=== PATIENT | female | born 1945 | race Caucasian/White ===

== ENCOUNTER → 2016-05-01 | Outpatient (REF) | payer MEDICARE ==
[~2016-05-01] MED LIST: /GLYB5TA OR; /MOM400 PO; /WARF25TA OR; ACET65TA OR; ALEVE PO; AMIO20TA PO; AMIO400T PO; ATEN50TA2 OR; ATOR40TA PO; AVAP300T OR; Aleve PO; CEFT500T PO; ELIQ5TAB PO; GLYB5TA PO; HYDR25TA6 OR; INSULANT SC; INSULIN 70/30 SC; INSUR SC; KEFL500C OR; LASI40TA PO; LEVA500T PO; LEVO125T3 PO; LEVO175T2 PO; LOPR50TA PO; LORTTAB2 PO; LORTTAB5 PO; PERC5TAB8 OR; PRIL20CA OR; PRIL40CA PO; SENO8.6T9 PO; SPIR50TA2 PO; SYNT150T OR; TOPA25TA10 PO; TOPA50TA7 PO; TYLE325T5 PO; VICO5TAB OR; VITMTA PO; ZOCO20TA PO; [UNRECOGNIZED DRUG - OTHER] PO; vitamin e PO
[2016-05-01 18:24] LABS: BASO % 0.9 % (0.0-1.0); EOS # 0.3 K/mm3 (0.0-0.50); EOS % 4.2 % (0.0-3.0); LARGE UNSTAINED CELL # 0.2 K/mm3 (0.0-0.4); LYMPH # 1.9 K/mm3 (1.5-4.5); LYMPH % 30.6 % (24.0-44.0); MEAN CORPUSCULAR HEMOGLOBIN 27.3 pg (27.0-33.0); MEAN CORPUSCULAR HGB CONC 32.8 g/dl (32.0-36.5); MEAN CORPUSCULAR VOLUME 83.2 fl (80.0-96.0); MONO # 0.5 K/mm3 (0.0-0.8); MONO % 7.6 % (0.0-5.0); NEUTROPHILS # 3.3 K/mm3 (1.8-7.7); NEUTROPHILS % 53.8 % (36.0-66.0); PLATELET COUNT, AUTOMATED 224 k/mm3 (150-450); RED CELL DISTRIBUTION WIDTH 14.5 % (11.5-14.5); WHITE BLOOD COUNT 6.2 K/mm3 (4.0-10.0)
== END ==
LOC: M LAB REF 17:08
PROVIDERS: ATTEND Internal Medicine Pulmonary Disease
DX: R91.8 Other nonspecific abnormal finding of lung field (principal)

== ENCOUNTER → 2016-05-04 | Outpatient (REF) | payer MEDICARE | LOC: M LAB REF 13:10 | PROVIDERS: ATTEND Internal Medicine Pulmonary Disease | DX: R91.8 Other nonspecific abnormal finding of lung field (principal) ==

== ENCOUNTER 2016-05-15 09:55 | Emergency (ER) | payer MEDICARE ==
[~2016-05-15 09:55] MED LIST changes: -CEFT500T PO; +CEFT500T3 PO; +LOPR1TAB6 PO; -LOPR50TA PO
[2016-05-15 11:08] LABS: BASO % 0.1 % (0.0-1.0); EOS % 0.4 % (0.0-3.0); LARGE UNSTAINED CELL # 0.2 K/mm3 (0.0-0.4); LARGE UNSTAINED CELL % 1.1 % (0.0-4.0); LYMPH # 1.2 K/mm3 (1.5-4.5); LYMPH % 8.5 % (24.0-44.0); MEAN CORPUSCULAR HEMOGLOBIN 27.2 pg (27.0-33.0); MEAN CORPUSCULAR HGB CONC 33.1 g/dl (32.0-36.5); MEAN CORPUSCULAR VOLUME 82.1 fl (80.0-96.0); MONO # 0.5 K/mm3 (0.0-0.8); MONO % 3.9 % (0.0-5.0); NEUTROPHILS # 12.1 K/mm3 (1.8-7.7); NEUTROPHILS % 86.1 % (36.0-66.0); PLATELET COUNT, AUTOMATED 235 k/mm3 (150-450); RED CELL DISTRIBUTION WIDTH 14.1 % (11.5-14.5)
--- NOTE | 2016-05-15 11:26 | REP ---
CT Head without contrast HISTORY: Fall COMPARISON: 03/25/2013 There is no intraparenchymal hemorrhage, acute infarct, mass or midline shift. The ventricular system is normal in appearance. There is no extra cerebral collection. There is no fracture. Minimal mucosal thickening is present in the right maxillary sinus. IMPRESSION: There is no intracranial lesion. Signed by Sulaiman Sanches MD 05/15/2016 11:17 A
[2016-05-15] MEDS ORDERED: PERCOCET 5MG/325MG TAB As Ordered ONE (11:29)
[2016-05-15 11:31] LABS: CALCIUM LEVEL 8.7 MG/DL (8.8-10.2); CREATININE FOR GFR 1.72 MG/DL (0.55-1.02); GLOMERULAR FILTRATION RATE 31.4 (>45); POTASSIUM SERUM 4.9 MEQ/L (3.5-5.1)
--- NOTE | 2016-05-15 11:36 | REP ---
CT CERVICAL SPINE WITHOUT CONTRAST: HISTORY: Trauma. COMPARISON: 03/25/2013. There is no acute fracture or subluxation. Disc bulges are present at the C4-5 through C6-7 levels. There is minimal narrowing of the spinal canal. Facet hypertrophy is present at the C4-5 through C6-7 levels. This produces minimal narrowing of the neural foramina. The C5-6 and C6-7 intervertebral discs are decreased in height consistent with disc degeneration. Anterior osteophytes are present on C3-5. IMPRESSION: 1. There is no acute fracture or subluxation. 2. There is cervical spondylosis at the C3-4 through C6-7 levels. Signed by Sulaiman Sanches MD 05/15/2016 11:41 A
[2016-05-15 11:40] LABS: INR 1.14
--- NOTE | 2016-05-15 13:28 | REP ---
LEFT KNEE, FIVE VIEWS: HISTORY: Pain. There is no acute fracture or dislocation. There is narrowing of the joint spaces. Osteophytes are present on the femur, tibia and patella. The bony structure is osteopenic. IMPRESSION: Degenerative change as described above. Signed by Sulaiman Sanches MD 05/15/2016 01:30 P
--- NOTE | 2016-05-15 13:29 | REP ---
Chest x-ray: Single view. History: Injury in a fall. Findings: There is an Ruzyfc-O-Dupv catheter via the left internal jugular line with its tip in the expected location of the superior vena cava. There is no evidence of pneumothorax or hydrothorax. There are clips in right upper quadrant of the abdomen. The lungs are symmetrically aerated and free of infiltrate. Pleural angles are sharp. Mediastinum is not widened. Heart size is mildly enlarged but unchanged. There are degenerative changes in the left shoulder. Impression: Rzlwol-T-Cniy catheter in place. Mild cardiomegaly. Otherwise no acute disease. Signed by Carroll Huizar MD 05/15/2016 01:44 P
--- NOTE | 2016-05-15 13:30 | REP ---
Left TIB-fib series: Three views. History: Pain. Findings: There is pretibial soft tissue swelling particularly at the proximal calf level. Vascular calcifications noted. There is some diffuse osteopenia. No fracture or periosteal reaction is seen. Impression: Vascular calcification. Soft tissue swelling. No acute bony abnormality. Signed by Carroll Huizar MD 05/15/2016 01:44 P
--- NOTE | 2016-05-15 13:31 | REP ---
LEFT FEMUR, FOUR VIEWS: HISTORY: Fall. There is no acute fracture or dislocation. There is narrowing of the left hip and knee joint spaces. Osteophytes are present at the left knee joint. IMPRESSION: Degenerative change as described above. Signed by Sulaiman Sanches MD 05/15/2016 01:33 P
--- NOTE | 2016-05-15 13:32 | REP ---
PELVIS, TWO VIEWS: HISTORY: Fall. There is no acute fracture or dislocation. There is narrowing of the joint spaces. IMPRESSION: Degenerative change as described above. Signed by Sulaiman Sanches MD 05/15/2016 01:33 P
--- NOTE | 2016-05-15 14:50 | EDDOCDS ---
Nurse's Notes [facility] Name: Judy Vega Age: 70 yrs Sex: Female : 1945 Arrival Date: 05/15/2016 Time: 09:55 Bed I8 / 16 Private MD: Ronald Freeman D Diagnosis: Fall (on) (from) unspecified stairs and steps;Contusion of left lower leg;Contusion of left knee;Other chest pain-chest wall pain Presentation: 05/15 10:10 Presenting complaint: Patient states: states that fell backwards twisting her left ml6 ankle, c/o pain in ankle, lower back, and neck, unsure if struck her head. Adult Sepsis Screening: The patient does not have new or worsening altered mentation. Patient's respiratory rate is less than 22. Systolic blood pressure is greater than 100. Patient has a qSOFA score of 0- Negative Sepsis Screen. Suicide/Homicide risk assessment- the patient denies having any suicidal and/or homicidal ideations and does not present with any other emotional, behavioral or mental health complaints. Status: Patient is not a financial services director or dependent. Transition of care: patient was not received from another setting of care. Red Flag criteria, patient assessed and taken directly to a bed. 10:10 Acuity: EN Level 2 ml6 10:10 Method Of Arrival: Walkin/Carried/Asstd ml6 Triage Assessment: 10:17 General: Appears in no apparent distress, Behavior is appropriate for age, cooperative. ml6 Pain: Location: left lateral malleolus and left medial malleolus Pain currently is 8 out of 10 on a pain scale. Pain does not radiate. Quality of pain is described as aching, Pain began 1 hour ago Is continuous. Cardiovascular: Capillary refill < 3 seconds is brisk in bilateral fingers toes. Respiratory: No deficits noted. Airway is patent Respiratory effort is even, unlabored, Respiratory pattern is regular, symmetrical. Musculoskeletal: Circulation, motion, and sensation intact Capillary refill < 3 seconds is brisk in bilateral fingers toes Range of motion intact in all extremities. No deformity noted Swelling present in left foot. Historical: - Allergies: Januvia (Rash); Lisinopril; - Home Meds: 1. amiodarone 200 mg Oral tab 1 tab 2 times per day (Last dose: 05/15/2016 07:00) 2. Eliquis 5 mg oral tab 1 tab 2 times per day (Last dose: 05/15/2016 07:00) 3. Prilosec 40 mg Oral cpDR 1 cap once daily (Last dose: 05/15/2016 07:00) 4. spironolactone 50 mg oral tab 1 tab once daily (Last dose: 05/15/2016 07:00) 5. multivitamin Oral cap 1 tablet daily (Last dose: 05/15/2016 07:00) 6. atorvastatin 40 mg oral tab 1 tab once daily (Last dose: 05/15/2016 07:00) 7. Lantus 100 unit/mL Sub-Q crtg 52 unit daily (Last dose: 05/15/2016 07:00) 8. Novolin R Sub-Q as needed sliding scale 6 units this am 9. glyburide 5 mg Oral tab 2 tabs 2 times per day (Last dose: 05/15/2016 07:00) 10. levothyroxine 125 mcg Oral tab 1 tab once daily (Last dose: 05/15/2016 07:00) 11. Prilosec 40 mg Oral cpDR 1 cap once daily (Last dose: 05/15/2016 07:00) 12. prednisone 20 mg Oral tab once daily (Last dose: 05/15/2016 07:00) - PMHx: Diabetes - IDDM: controlled; Hypertension; Sleep Apnea w/ CPAP; GERD; Non-Hodgkin's Lymphoma; Hypothyroidism; Hypercholesterolemia; atrial flutter; CHF; - PSHx: Knee surgery- Right; Arthroscopy, Knee- Left; Shoulder Arthroplasty, Left; Hernia repair; Cataract Surgery- Bilateral; lymphnode removal; cardiac ablation x 3 (April 04, 2016); cardioversion(January 14, 2016); - Social history: Smoking status: Patient states was never smoker of tobacco. No barriers to communication noted, Speaks appropriately for age. - Family history: Not pertinent. - : The pt / caregiver states he / she is not on anticoagulants. Home medication list is obtained from the patient. - Exposure Risk Screening:: None identified. Screenin:00 Screening information is obtained from the patient. Fall risk: No risks identified. jmk Assistance ADL's: requires no assistance with activities of daily living. Abuse/DV Screen: The patient / caregiver reports he/she is: not in a situation that causes fear, pain or injury. Nutritional screening: No deficits noted. home support is adequate. 11:47 Advance Directives: Currently, there is no health care proxy. There is no active DNR k order. There is no living will. There is no Power of Banquet Food Server. Advance directive information has not previously been placed in an [facility] medical record. Further advance directive information is declined information regarding advance directives can be obtained from . Assessment: 11:00 General: Appears uncomfortable, skin warm and dry color satisfactory. Moist pink oral jmk mucosa. good recall of events. REGINALDO brisk body survey reveals old 2" area of ecchymosis to right antecubital area. Painful left knee. slight swelling noted. Pedal pulse intact . 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 skin integrity intact.. Neurological: Level of Consciousness is awake, alert, Oriented to person, place, time, Label Coder are equal bilaterally. Cardiovascular: Capillary refill < 3 seconds Clubbing of nail beds is absent Heart tones S1 S2 present. Respiratory: No deficits noted. Airway is patent Respiratory effort is even, unlabored, Respiratory pattern is regular, Breath sounds are clear bilaterally. GI: Abdomen is obese, Bowel sounds present X 4 quads. 11:50 General: Appears medicated as per order for lower extremity pain that increases with jmk movement.. 12:59 General: Appears returned from x ray. reports pain has decreased to 5/10.. jmk 14:31 General: Appears states pain level is still 5/10 and has support from knee immobilizer. sergio Is able to support own weight. Has walker for use at home.. Vital Signs: 09:57 BP 198 / 93; Pulse 88; Resp 20; Temp 97.3; Pulse Ox 99% ; Weight 95.25 kg; Height 4 ft. f 9 in. (144.78 cm); Pain 10/10; 11:47 BP 192 / 74 (auto/); jmk 11:47 Pulse 82 MON; jmk 11:47 BP 156 / 72; Pulse 74; Resp 16; Temp 97.3; jmk 12:02 BP 176 / 77 (auto/); jmk 12:02 Pulse 74 MON; jmk 09:57 Body Mass Index 45.44 (95.25 kg, 144.78 cm) [facility] Vitals: 09:57 Log In Time: May 15, 2016 at 09:40. jlf 10:11 RN notified that patient meets Red Flag criteria. [facility] ED Course: 09:56 Patient visited by Luis Garland PCA. jlf 09:56 Ronald Freeman is Private Physician. jlf 09:56 Patient moved to Waiting jlf 09:58 Patient visited by Luis Garland PCA. jlf 10:06 Patient moved to Pre RCE jrd 10:10 Patient moved to I8 / 16 ml6 10:11 Triage Initiated ml6 10:25 Patient visited by Luis Garland PCA. jlf 10:25 EKG done. (by ED staff). Reviewed by Rylee Wilson MD. jlf 10:56 Patient visited by Luis Garland PCA. jlf 11:00 The patient / caregiver is instructed regarding the plan of care and ED course. jmk 11:00 Inserted saline lock: 20 gauge in left antecubital area. jmk 11:02 Rylee Wilson MD is Attending Physician. ml 11:02 Patient visited by Rylee Wilson MD. ml 11:04 Patient visited by Jose Saldana,JERMAINE. jmk 11:06 PTT Sent. jmk 11:06 PT/INR Sent. jmk 11:06 MED Profile Sent. jmk 11:06 CBC with Diff Sent. jmk 11:40 Patient visited by Luis Garland PCA. jlf 11:47 Discontinued lock intact, bleeding controlled, pressure dressing applied, No jmk redness/swelling at site. No procedures done that require assistance. 11:51 Patient visited by Jose Saldana,JERMAINE. jmk 11:51 CT Head Without Contrast Returned. EDMS 11:52 CT Spine,Cervical W/o Contrast Returned. EDMS 11:53 [facility] [place] was scanned into [employer] and attached to record. lg 12:59 Patient visited by Jose Saldana,JERMAINE. jmk 13:31 Patient visited by Shi Espinoza PCA. ct3 13:32 Knee, Complete Returned. EDMS 13:32 Chest, 1 View Returned. EDMS 13:33 Tibia/Fibula Returned. EDMS 13:33 Femur Returned. EDMS 14:08 Pelvis Returned. EDMS 14:12 Ronald Freeman is Referral Physician. ml 14:16 [facility] is Referral Physician. ml Administered Medications: 11:50 Drug: oxyCODONE-acetaminophen 1 tabs [oxycodone-acetaminophen 5 mg-325 mg tablet (1 jmk tabs)] Route: PO; Order Results: Lab Order: CBC with Diff; SPEC'M 05/15/16 11:01 Test: WHITE BLOOD COUNT; Value: 14.0; Range: 4.0-10.0; Abnormal: Above high normal; Units: K/mm3; Status: F Test: RED BLOOD COUNT; Value: 5.23; Range: 4.00-5.40; Units: M/mm3; Status: F Test: HEMOGLOBIN; Value: 14.2; Range: 12.0-16.0; Units: g/dl; Status: F Test: HEMATOCRIT; Value: 42.9; Range: 36.0-47.0; Units: %; Status: F Test: MEAN CORPUSCULAR VOLUME; Value: 82.1; Range: 80.0-96.0; Units: fl; Status: F Test: MEAN CORPUSCULAR HEMOGLOBIN; Value: 27.2; Range: 27.0-33.0; Units: pg; Status: F Test: MEAN CORPUSCULAR HGB CONC; Value: 33.1; Range: 32.0-36.5; Units: g/dl; Status: F Test: RED CELL DISTRIBUTION WIDTH; Value: 14.1; Range: 11.5-14.5; Units: %; Status: F Test: PLATELET COUNT, AUTOMATED; Value: 235; Range: 150-450; Units: k/mm3; Status: F Test: NEUTROPHILS %; Value: 86.1; Range: 36.0-66.0; Abnormal: Above high normal; Units: %; Status: F Test: LYMPH %; Value: 8.5; Range: 24.0-44.0; Abnormal: Below low normal; Units: %; Status: F Test: MONO %; Value: 3.9; Range: 0.0-5.0; Units: %; Status: F Test: EOS %; Value: 0.4; Range: 0.0-3.0; Units: %; Status: F Test: BASO %; Value: 0.1; Range: 0.0-1.0; Units: %; Status: F Test: LARGE UNSTAINED CELL %; Value: 1.1; Range: 0.0-4.0; Units: %; Status: F Test: NEUTROPHILS #; Value: 12.1; Range: 1.8-7.7; Abnormal: Above high normal; Units: K/mm3; Status: F Test: LYMPH #; Value: 1.2; Range: 1.5-4.5; Abnormal: Below low normal; Units: K/mm3; Status: F Test: MONO #; Value: 0.5; Range: 0.0-0.8; Units: K/mm3; Status: F Test: EOS #; Value: 0.0; Range: 0.0-0.50; Units: K/mm3; Status: F Test: BASO #; Value: 0.0; Range: 0.0-0.2; Units: K/mm3; Status: F Test: LARGE UNSTAINED CELL #; Value: 0.2; Range: 0.0-0.4; Units: K/mm3; Status: F Lab Order: MED Profile; SPEC'M 05/15/16 11:01 Test: GLUCOSE, FASTING; Value: 135; Range: 80-110; Abnormal: Above high normal; Units: MG/DL; Status: F Test: BLOOD UREA NITROGEN; Value: 33; Range: 7-18; Abnormal: Above high normal; Units: MG/DL; Status: F Test: CREATININE FOR GFR; Value: 1.72; Range: 0.55-1.02; Abnormal: Above high normal; Units: MG/DL; Status: F Test: GLOMERULAR FILTRATION RATE; Value: 31.4; Range: >45; Abnormal: Below low normal; Status: F Test: SODIUM LEVEL; Value: 139; Range: 136-145; Units: MEQ/L; Status: F Test: POTASSIUM SERUM; Value: 4.9; Range: 3.5-5.1; Units: MEQ/L; Status: F Test: CHLORIDE LEVEL; Value: 106; Range: 98-107; Units: MEQ/L; Status: F Test: CARBON DIOXIDE LEVEL; Value: 25; Range: 21-32; Units: MEQ/L; Status: F Test: ANION GAP; Value: 8; Range: 8-16; Units: MEQ/L; Status: F Test: CALCIUM LEVEL; Value: 8.7; Range: 8.8-10.2; Abnormal: Below low normal; Units: MG/DL; Status: F Test Note: ; Units are mL/min/1.73 m2 Chronic Kidney Disease Staging per NKF: Stage I & II GFR >=60 Normal to Mildly Decreased Stage III GFR 30-59 Moderately Decreased Stage IV GFR 15-29 Severely Decreased Stage V GFR <15 Very Little GFR Left ESRD GFR <15 on CHARGE MANAGER Lab Order: PT/INR; SPEC'M 05/15/16 11:01 Test: PROTHROMBIN TIME; Value: 14.7; Range: 12.3-14.5; Abnormal: Above high normal; Units: SECONDS; Status: F Test: INR; Value: 1.14; Status: F Test Note: ; THERAPUTIC HUMAN INR VALUES INDICATIONS NORMAL RANGES PROPHYLAXIS/TREATMENT OF: VENOUS THROMBOSIS 2.0-3.0 PULMONARY EMBOLISM 2.0-3.0 PREVENTION OF SYSTEMIC EMBOLISM FROM: TISSUE HEART VALVES 2.0-3.0 ACUTE MYOCARDIAL INFARCTION 2.0-3.0 VALVULAR HEART DISEASE 2.0-3.0 ATRIAL FIBRILLATION 2.0-3.0 MECHANICAL VALVES(HIGH RISK) 2.5-3.5 RECURRENT MYOCARDIAL INFARCTION 2.5-3.5 Lab Order: PTT; SPEC'M 05/15/16 11:01 Test: PARTIAL THROMBOPLASTIN TIME; Value: 23.5; Range: 26.6-37.1; Abnormal: Below low normal; Units: SECONDS; Status: F Radiology Order: CT Head Without Contrast Test: CT Head Without Contrast REASON FOR EXAMINATION: fall, on eliquis; CT Head without contrast; ; HISTORY: Fall; ; COMPARISON: 03/25/2013; ; There is no intraparenchymal hemorrhage, acute infarct, mass or midline shift.; The ventricular system is normal in appearance. There is no extra cerebral; collection. There is no fracture. Minimal mucosal thickening is present in the; right maxillary sinus.; ; IMPRESSION: There is no intracranial lesion.; ; ; ; ; Signed by; Sulaiman Sanches MD 05/15/2016 11:17 A; Radiology Order: CT Spine,Cervical W/o Contrast Test: CT Spine,Cervical W/o Contrast REASON FOR EXAMINATION: fall on eliquis; CT CERVICAL SPINE WITHOUT CONTRAST:; ; HISTORY: Trauma.; ; COMPARISON: 03/25/2013.; ; There is no acute fracture or subluxation. Disc bulges are present at the C4-5; through C6-7 levels. There is minimal narrowing of the spinal canal. Facet; hypertrophy is present at the C4-5 through C6-7 levels. This produces minimal; narrowing of the neural foramina. The C5-6 and C6-7 intervertebral discs are; decreased in height consistent with disc degeneration. Anterior osteophytes are; present on C3-5.; ; IMPRESSION:; ; 1. There is no acute fracture or subluxation.; ; 2. There is cervical spondylosis at the C3-4 through C6-7 levels.; ; ; Signed by; Sulaiman Sanches MD 05/15/2016 11:41 A; Radiology Order: Pelvis Test: Pelvis REASON FOR EXAMINATION: fall; PELVIS, TWO VIEWS:; ; HISTORY: Fall.; ; There is no acute fracture or dislocation. There is narrowing of the joint; spaces.; ; IMPRESSION:; ; Degenerative change as described above.; ; ; Signed by; Sulaiman Sanches MD 05/15/2016 01:33 P; Radiology Order: Femur Test: Femur REASON FOR EXAMINATION: fall; LEFT FEMUR, FOUR VIEWS:; ; HISTORY: Fall.; ; There is no acute fracture or dislocation. There is narrowing of the left hip; and knee joint spaces. Osteophytes are present at the left knee joint.; ; IMPRESSION:; ; Degenerative change as described above.; ; ; Signed by; Sulaiman Sanches MD 05/15/2016 01:33 P; Radiology Order: Knee, Complete Test: Knee, Complete REASON FOR EXAMINATION: pain; LEFT KNEE, FIVE VIEWS:; ; HISTORY: Pain.; ; There is no acute fracture or dislocation. There is narrowing of the joint; spaces. Osteophytes are present on the femur, tibia and patella. The bony; structure is osteopenic.; ; IMPRESSION:; ; Degenerative change as described above.; ; ; Signed by; Sulaiman Sanches MD 05/15/2016 01:30 P; Radiology Order: Tibia/Fibula Test: Tibia/Fibula REASON FOR EXAMINATION: pain; Left TIB-fib series: Three views.; ; History: Pain.; ; Findings: There is pretibial soft tissue swelling particularly at the proximal; calf level. Vascular calcifications noted. There is some diffuse osteopenia.; No fracture or periosteal reaction is seen.; ; Impression:; ; Vascular calcification. Soft tissue swelling. No acute bony abnormality.; ; ; Signed by; Carroll Huizar MD 05/15/2016 01:44 P; Radiology Order: Chest, 1 View Test: Chest, 1 View REASON FOR EXAMINATION: fall; Chest x-ray: Single view.; ; History: Injury in a fall.; ; Findings: There is an [id number] catheter via the left internal jugular line; with its tip in the expected location of the superior vena cava. There is no; evidence of pneumothorax or hydrothorax. There are clips in right upper quadrant; of the abdomen. The lungs are symmetrically aerated and free of infiltrate.; Pleural angles are sharp. Mediastinum is not widened. Heart size is mildly; enlarged but unchanged. There are degenerative changes in the left shoulder.; ; Impression:; ; Khhisn-N-Yhue catheter in place. Mild cardiomegaly. Otherwise no acute; disease.; ; ; Signed by; Carroll Huizar MD 05/15/2016 01:44 P; Outcome: 11:47 Discharge Assessment: Patient awake, alert and oriented x 3. No cognitive and/or k functional deficits noted. Patient verbalized understanding of disposition instructions. patient administered narcotics - yes. Pt provided with safe discharge. The following High Risk Discharge criteria are identified: None. Discharged to. Condition: good. Discharge instructions given to patient, Instructed on discharge instructions, follow up and referral plans. medication usage, no driving heavy equipment, Demonstrated understanding of instructions, medications, Pt was receptive of discharge instructions/ teaching. Prescriptions given X 1. CT Study completed. Property :Personal belongings accompany Pt. 14:14 Discharge ordered by Provider. ml 14:49 Patient left the ED. sergio Signatures: Dispatcher [employer] EDMS Rylee Wilson MD MD ml Knapp, Jean,RN RN Hao Posada, Bird Gerard lg, RN RN ml6 Shi Espinoza, OPTICAL LABORATORY MECHANIC OPTICAL LABORATORY MECHANIC ct3 Luis Garland, OPTICAL LABORATORY MECHANIC OPTICAL LABORATORY MECHANIC jlf Twan Queen, OPTICAL LABORATORY MECHANIC OPTICAL LABORATORY MECHANIC jrd MTDD
--- NOTE | 2016-05-15 14:50 | EDDOCDS ---
Physician Documentation [facility] Name: Judy Vega Age: 70 yrs Sex: Female : 1945 Arrival Date: 05/15/2016 Time: 09:55 Bed I8 / 16 Private MD: Ronald Freeman D Disposition: 05/15/16 14:14 Discharged to Home/Self Care. Impression: Fall (on) (from) unspecified stairs and steps, Contusion of left lower leg, Contusion of left knee, Other chest pain - chest wall pain. - Condition is Stable. - Discharge Instructions: Contusion, Fall Prevention and Home Safety, Knee Immobilizer, Knee Pain. - Prescriptions for Percocet 5- 325 mg Oral Tablet - take 1 tablet by ORAL route every 8 hours As needed MDD: 4 tabs; 20 tablet. - Medication Reconciliation, Local Pharmacy Hours form. - Follow up: Ronald Freeman; When: 2 - 3 days. Follow up: Orthopaedics, [facility]; When: 2 - 3 days. - Problem is new. - Symptoms have improved. - Notes: return if worsening symptoms. follow up with ortho. use walker as discussed Historical: - Allergies: Januvia (Rash); Lisinopril; - Home Meds: 1. amiodarone 200 mg Oral tab 1 tab 2 times per day (Last dose: 05/15/2016 07:00) 2. Eliquis 5 mg oral tab 1 tab 2 times per day (Last dose: 05/15/2016 07:00) 3. Prilosec 40 mg Oral cpDR 1 cap once daily (Last dose: 05/15/2016 07:00) 4. spironolactone 50 mg oral tab 1 tab once daily (Last dose: 05/15/2016 07:00) 5. multivitamin Oral cap 1 tablet daily (Last dose: 05/15/2016 07:00) 6. atorvastatin 40 mg oral tab 1 tab once daily (Last dose: 05/15/2016 07:00) 7. Lantus 100 unit/mL Sub-Q crtg 52 unit daily (Last dose: 05/15/2016 07:00) 8. Novolin R Sub-Q as needed sliding scale 6 units this am 9. glyburide 5 mg Oral tab 2 tabs 2 times per day (Last dose: 05/15/2016 07:00) 10. levothyroxine 125 mcg Oral tab 1 tab once daily (Last dose: 05/15/2016 07:00) 11. Prilosec 40 mg Oral cpDR 1 cap once daily (Last dose: 05/15/2016 07:00) 12. prednisone 20 mg Oral tab once daily (Last dose: 05/15/2016 07:00) - PMHx: Diabetes - IDDM: controlled; Hypertension; Sleep Apnea w/ CPAP; GERD; Non-Hodgkin's Lymphoma; Hypothyroidism; Hypercholesterolemia; atrial flutter; CHF; - PSHx: Knee surgery- Right; Arthroscopy, Knee- Left; Shoulder Arthroplasty, Left; Hernia repair; Cataract Surgery- Bilateral; lymphnode removal; cardiac ablation x 3 (April 04, 2016); cardioversion(January 14, 2016); - Social history: Smoking status: Patient states was never smoker of tobacco. No barriers to communication noted, Speaks appropriately for age. - Family history: Not pertinent. - : The pt / caregiver states he / she is not on anticoagulants. Home medication list is obtained from the patient. - Exposure Risk Screening:: None identified. Vital Signs: 05/15 09:57 BP 198 / 93; Pulse 88; Resp 20; Temp 97.3; Pulse Ox 99% ; Weight 95.25 kg / 209.99 lbs; jlf Height 4 ft. 9 in. (144.78 cm); Pain 10/10; 11:47 BP 192 / 74 (auto/); jmk 11:47 Pulse 82 MON; jmk 11:47 BP 156 / 72; Pulse 74; Resp 16; Temp 97.3; jmk 12:02 BP 176 / 77 (auto/); jmk 12:02 Pulse 74 MON; jmk 09:57 Body Mass Index 45.44 (95.25 kg, 144.78 cm) [facility] MDM: 10:18 ECG WITH READING ER PHYS+CARDIAG ordered. EDMS 10:30 IV Saline Lock ordered. ml 10:30 Patrol Officer/Pulse Ox/q 15 min VS ordered. ml 10:30 Rhythm Strip to chart ordered. ml 10:31 CBC with Diff Ordered. EDMS 10:31 MED Profile Ordered. EDMS 10:31 PT/INR Ordered. EDMS 10:31 PTT Ordered. EDMS 10:32 CT Head Without Contrast Ordered. EDMS 10:32 CT Spine,Cervical W/o Contrast Ordered. EDMS 11:20 oxyCODONE-acetaminophen 5 mg-325 mg 1 tabs PO once ordered. ml 11:22 Pelvis Ordered. EDMS 11:22 Femur Ordered. EDMS 11:22 Knee, Complete Ordered. EDMS 11:22 Tibia/Fibula Ordered. EDMS 11:23 Chest, 1 View Ordered. EDMS 11:53 Financial registration complete. lg 11:53 PENDING SALE TO [facility] Payment Agreement was scanned into [employer] and attached to record. lg 12:40 CBC with Diff Reviewed. ml 12:40 MED Profile Reviewed. ml 12:40 PT/INR Reviewed. ml 12:40 PTT Reviewed. ml 12:40 CT Head Without Contrast Reviewed. ml 12:40 CT Spine,Cervical W/o Contrast Reviewed. ml 14:17 Misc. Nursing Order ordered. ml Administered Medications: 11:50 Drug: oxyCODONE-acetaminophen 1 tabs [oxycodone-acetaminophen 5 mg-325 mg tablet (1 jmk tabs)] Route: PO; Signatures: Dispatcher MedHo EDTN Rylee Wilson MD MD ml Knapp, Jean,RN RN Hao Posada, Reg Reg lg Bird Carvalho, RN RN ml6 The chart was reviewed and I authenticate all verbal orders and agree with the evaluation and treatment provided.Attachments: 11:53 [facility]END[facility] Payment Agreement lg MTDD
--- NOTE | 2016-05-15 17:31 | ECGEPIP ---
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
--- NOTE | 2016-05-17 15:51 | EDDOCDS ---
Physician Documentation [facility] Name: Judy Vega Age: 70 yrs Sex: Female : 1945 Arrival Date: 05/15/2016 Time: 09:55 Bed I8 / 16 Private MD: Ronald Freeman D Disposition: 05/15/16 14:14 Discharged to Home/Self Care. Impression: Fall (on) (from) unspecified stairs and steps, Contusion of left lower leg, Contusion of left knee, Other chest pain - chest wall pain. - Condition is Stable. - Discharge Instructions: Contusion, Fall Prevention and Home Safety, Knee Immobilizer, Knee Pain. - Prescriptions for Percocet 5- 325 mg Oral Tablet - take 1 tablet by ORAL route every 8 hours As needed MDD: 4 tabs; 20 tablet. - Medication Reconciliation, Local Pharmacy Hours form. - Follow up: Ronald Freeman; When: 2 - 3 days. Follow up: Orthopaedics, [facility]; When: 2 - 3 days. - Problem is new. - Symptoms have improved. - Notes: return if worsening symptoms. follow up with ortho. use walker as discussed Historical: - Allergies: Januvia (Rash); Lisinopril; - Home Meds: 1. amiodarone 200 mg Oral tab 1 tab 2 times per day (Last dose: 05/15/2016 07:00) 2. Eliquis 5 mg oral tab 1 tab 2 times per day (Last dose: 05/15/2016 07:00) 3. Prilosec 40 mg Oral cpDR 1 cap once daily (Last dose: 05/15/2016 07:00) 4. spironolactone 50 mg oral tab 1 tab once daily (Last dose: 05/15/2016 07:00) 5. multivitamin Oral cap 1 tablet daily (Last dose: 05/15/2016 07:00) 6. atorvastatin 40 mg oral tab 1 tab once daily (Last dose: 05/15/2016 07:00) 7. Lantus 100 unit/mL Sub-Q crtg 52 unit daily (Last dose: 05/15/2016 07:00) 8. Novolin R Sub-Q as needed sliding scale 6 units this am 9. glyburide 5 mg Oral tab 2 tabs 2 times per day (Last dose: 05/15/2016 07:00) 10. levothyroxine 125 mcg Oral tab 1 tab once daily (Last dose: 05/15/2016 07:00) 11. Prilosec 40 mg Oral cpDR 1 cap once daily (Last dose: 05/15/2016 07:00) 12. prednisone 20 mg Oral tab once daily (Last dose: 05/15/2016 07:00) - PMHx: Diabetes - IDDM: controlled; Hypertension; Sleep Apnea w/ CPAP; GERD; Non-Hodgkin's Lymphoma; Hypothyroidism; Hypercholesterolemia; atrial flutter; CHF; - PSHx: Knee surgery- Right; Arthroscopy, Knee- Left; Shoulder Arthroplasty, Left; Hernia repair; Cataract Surgery- Bilateral; lymphnode removal; cardiac ablation x 3 (April 04, 2016); cardioversion(January 14, 2016); - Social history: Smoking status: Patient states was never smoker of tobacco. No barriers to communication noted, Speaks appropriately for age. - Family history: Not pertinent. - : The pt / caregiver states he / she is not on anticoagulants. Home medication list is obtained from the patient. - Exposure Risk Screening:: None identified. Vital Signs: 05/15 09:57 BP 198 / 93; Pulse 88; Resp 20; Temp 97.3; Pulse Ox 99% ; Weight 95.25 kg / 209.99 lbs; jlf Height 4 ft. 9 in. (144.78 cm); Pain 10/10; 11:47 BP 192 / 74 (auto/); jmk 11:47 Pulse 82 MON; jmk 11:47 BP 156 / 72; Pulse 74; Resp 16; Temp 97.3; jmk 12:02 BP 176 / 77 (auto/); jmk 12:02 Pulse 74 MON; jmk 09:57 Body Mass Index 45.44 (95.25 kg, 144.78 cm) [facility] MDM: 10:18 ECG WITH READING ER PHYS+CARDIAG ordered. EDMS 10:30 IV Saline Lock ordered. ml 10:30 Device Processing Engineer/Pulse Ox/q 15 min VS ordered. ml 10:30 Rhythm Strip to chart ordered. ml 10:31 CBC with Diff Ordered. EDMS 10:31 MED Profile Ordered. EDMS 10:31 PT/INR Ordered. EDMS 10:31 PTT Ordered. EDMS 10:32 CT Head Without Contrast Ordered. EDMS 10:32 CT Spine,Cervical W/o Contrast Ordered. EDMS 11:20 oxyCODONE-acetaminophen 5 mg-325 mg 1 tabs PO once ordered. ml 11:22 Pelvis Ordered. EDMS 11:22 Femur Ordered. EDMS 11:22 Knee, Complete Ordered. EDMS 11:22 Tibia/Fibula Ordered. EDMS 11:23 Chest, 1 View Ordered. EDMS 11:53 Financial registration complete. lg 11:53 [facility] Payment Agreement was scanned into [employer] and attached to record. lg 12:40 CBC with Diff Reviewed. ml 12:40 MED Profile Reviewed. ml 12:40 PT/INR Reviewed. ml 12:40 PTT Reviewed. ml 12:40 CT Head Without Contrast Reviewed. ml 12:40 CT Spine,Cervical W/o Contrast Reviewed. ml 14:17 Misc. Nursing Order ordered. 05/16 12:13 T-Sheet-- Draft Copy was scanned into [employer] and attached to record. gb 12:13 ECG/EKG was scanned into [employer] and attached to record. gb 12:14 Radiology Report was scanned into [employer] and attached to record. gb Administered Medications: 05/15 11:50 Drug: oxyCODONE-acetaminophen 1 tabs [oxycodone-acetaminophen 5 mg-325 mg tablet (1 jmk tabs)] Route: PO; Signatures: Dispatcher [employer] Rylee Viramontes MD MD ml Knapp, Jean,RN RN Taryn Hoskins, Reg Reg gb Hao Capellan, Reg Reg Bird Dennis, RN RN ml6 The chart was reviewed and I authenticate all verbal orders and agree with the evaluation and treatment provided.Attachments: 11:53 [facility] Payment Agreement lg 05/16 12:13 T-Sheet-- Draft Copy gb 12:13 ECG/EKG gb Chart Complete MTDD
--- NOTE | 2016-05-17 15:51 | EDDOCDS ---
Physician Documentation [facility] Name: Judy Vega Age: 70 yrs Sex: Female : 1945 Arrival Date: 05/15/2016 Time: 09:55 Bed I8 / 16 Private MD: Ronald Freeman D Disposition: 05/15/16 14:14 Discharged to Home/Self Care. Impression: Fall (on) (from) unspecified stairs and steps, Contusion of left lower leg, Contusion of left knee, Other chest pain - chest wall pain. - Condition is Stable. - Discharge Instructions: Contusion, Fall Prevention and Home Safety, Knee Immobilizer, Knee Pain. - Prescriptions for Percocet 5- 325 mg Oral Tablet - take 1 tablet by ORAL route every 8 hours As needed MDD: 4 tabs; 20 tablet. - Medication Reconciliation, Local Pharmacy Hours form. - Follow up: Ronald Freeman; When: 2 - 3 days. Follow up: Orthopaedics, [facility]; When: 2 - 3 days. - Problem is new. - Symptoms have improved. - Notes: return if worsening symptoms. follow up with ortho. use walker as discussed Historical: - Allergies: Januvia (Rash); Lisinopril; - Home Meds: 1. amiodarone 200 mg Oral tab 1 tab 2 times per day (Last dose: 05/15/2016 07:00) 2. Eliquis 5 mg oral tab 1 tab 2 times per day (Last dose: 05/15/2016 07:00) 3. Prilosec 40 mg Oral cpDR 1 cap once daily (Last dose: 05/15/2016 07:00) 4. spironolactone 50 mg oral tab 1 tab once daily (Last dose: 05/15/2016 07:00) 5. multivitamin Oral cap 1 tablet daily (Last dose: 05/15/2016 07:00) 6. atorvastatin 40 mg oral tab 1 tab once daily (Last dose: 05/15/2016 07:00) 7. Lantus 100 unit/mL Sub-Q crtg 52 unit daily (Last dose: 05/15/2016 07:00) 8. Novolin R Sub-Q as needed sliding scale 6 units this am 9. glyburide 5 mg Oral tab 2 tabs 2 times per day (Last dose: 05/15/2016 07:00) 10. levothyroxine 125 mcg Oral tab 1 tab once daily (Last dose: 05/15/2016 07:00) 11. Prilosec 40 mg Oral cpDR 1 cap once daily (Last dose: 05/15/2016 07:00) 12. prednisone 20 mg Oral tab once daily (Last dose: 05/15/2016 07:00) - PMHx: Diabetes - IDDM: controlled; Hypertension; Sleep Apnea w/ CPAP; GERD; Non-Hodgkin's Lymphoma; Hypothyroidism; Hypercholesterolemia; atrial flutter; CHF; - PSHx: Knee surgery- Right; Arthroscopy, Knee- Left; Shoulder Arthroplasty, Left; Hernia repair; Cataract Surgery- Bilateral; lymphnode removal; cardiac ablation x 3 (April 04, 2016); cardioversion(January 14, 2016); - Social history: Smoking status: Patient states was never smoker of tobacco. No barriers to communication noted, Speaks appropriately for age. - Family history: Not pertinent. - : The pt / caregiver states he / she is not on anticoagulants. Home medication list is obtained from the patient. - Exposure Risk Screening:: None identified. Vital Signs: 05/15 09:57 BP 198 / 93; Pulse 88; Resp 20; Temp 97.3; Pulse Ox 99% ; Weight 95.25 kg / 209.99 lbs; jlf Height 4 ft. 9 in. (144.78 cm); Pain 10/10; 11:47 BP 192 / 74 (auto/); jmk 11:47 Pulse 82 MON; jmk 11:47 BP 156 / 72; Pulse 74; Resp 16; Temp 97.3; jmk 12:02 BP 176 / 77 (auto/); jmk 12:02 Pulse 74 MON; jmk 09:57 Body Mass Index 45.44 (95.25 kg, 144.78 cm) [facility] MDM: 10:18 ECG WITH READING ER PHYS+CARDIAG ordered. EDMS 10:30 IV Saline Lock ordered. ml 10:30 Finger Buffs Assembler/Pulse Ox/q 15 min VS ordered. ml 10:30 Rhythm Strip to chart ordered. ml 10:31 CBC with Diff Ordered. EDMS 10:31 MED Profile Ordered. EDMS 10:31 PT/INR Ordered. EDMS 10:31 PTT Ordered. EDMS 10:32 CT Head Without Contrast Ordered. EDMS 10:32 CT Spine,Cervical W/o Contrast Ordered. EDMS 11:20 oxyCODONE-acetaminophen 5 mg-325 mg 1 tabs PO once ordered. ml 11:22 Pelvis Ordered. EDMS 11:22 Femur Ordered. EDMS 11:22 Knee, Complete Ordered. EDMS 11:22 Tibia/Fibula Ordered. EDMS 11:23 Chest, 1 View Ordered. EDMS 11:53 Financial registration complete. lg 11:53 [facility] Payment Agreement was scanned into [employer] and attached to record. lg 12:40 CBC with Diff Reviewed. ml 12:40 MED Profile Reviewed. ml 12:40 PT/INR Reviewed. ml 12:40 PTT Reviewed. ml 12:40 CT Head Without Contrast Reviewed. ml 12:40 CT Spine,Cervical W/o Contrast Reviewed. ml 14:17 Misc. Nursing Order ordered. 05/16 12:13 T-Sheet-- Draft Copy was scanned into [employer] and attached to record. gb 12:13 ECG/EKG was scanned into [employer] and attached to record. gb 12:14 Radiology Report was scanned into [employer] and attached to record. gb Administered Medications: 05/15 11:50 Drug: oxyCODONE-acetaminophen 1 tabs [oxycodone-acetaminophen 5 mg-325 mg tablet (1 jmk tabs)] Route: PO; Signatures: Dispatcher [employer] Rylee Viramontes MD MD ml Knapp, Jean,RN RN Taryn Hoskins, Reg Reg gb Hao Capellan, Reg Reg Bird Dennis, RN RN ml6 The chart was reviewed and I authenticate all verbal orders and agree with the evaluation and treatment provided.Attachments: 11:53 [facility] Payment Agreement lg 05/16 12:13 T-Sheet-- Draft Copy gb 12:13 ECG/EKG gb Chart Complete MTDD
--- NOTE | 2016-05-17 15:51 | EDDOCDS ---
Nurse's Notes [facility] Name: Judy Vega Age: 70 yrs Sex: Female : 1945 Arrival Date: 05/15/2016 Time: 09:55 Bed I8 / 16 Private MD: Ronald Freeman D Diagnosis: Fall (on) (from) unspecified stairs and steps;Contusion of left lower leg;Contusion of left knee;Other chest pain-chest wall pain Presentation: 05/15 10:10 Presenting complaint: Patient states: states that fell backwards twisting her left ml6 ankle, c/o pain in ankle, lower back, and neck, unsure if struck her head. Adult Sepsis Screening: The patient does not have new or worsening altered mentation. Patient's respiratory rate is less than 22. Systolic blood pressure is greater than 100. Patient has a qSOFA score of 0- Negative Sepsis Screen. Suicide/Homicide risk assessment- the patient denies having any suicidal and/or homicidal ideations and does not present with any other emotional, behavioral or mental health complaints. Status: Patient is not a coordinator cardiopulmonary services or dependent. Transition of care: patient was not received from another setting of care. Red Flag criteria, patient assessed and taken directly to a bed. 10:10 Acuity: NE Level 2 ml6 10:10 Method Of Arrival: Walkin/Carried/Asstd ml6 Triage Assessment: 10:17 General: Appears in no apparent distress, Behavior is appropriate for age, cooperative. ml6 Pain: Location: left lateral malleolus and left medial malleolus Pain currently is 8 out of 10 on a pain scale. Pain does not radiate. Quality of pain is described as aching, Pain began 1 hour ago Is continuous. Cardiovascular: Capillary refill < 3 seconds is brisk in bilateral fingers toes. Respiratory: No deficits noted. Airway is patent Respiratory effort is even, unlabored, Respiratory pattern is regular, symmetrical. Musculoskeletal: Circulation, motion, and sensation intact Capillary refill < 3 seconds is brisk in bilateral fingers toes Range of motion intact in all extremities. No deformity noted Swelling present in left foot. Historical: - Allergies: Januvia (Rash); Lisinopril; - Home Meds: 1. amiodarone 200 mg Oral tab 1 tab 2 times per day (Last dose: 05/15/2016 07:00) 2. Eliquis 5 mg oral tab 1 tab 2 times per day (Last dose: 05/15/2016 07:00) 3. Prilosec 40 mg Oral cpDR 1 cap once daily (Last dose: 05/15/2016 07:00) 4. spironolactone 50 mg oral tab 1 tab once daily (Last dose: 05/15/2016 07:00) 5. multivitamin Oral cap 1 tablet daily (Last dose: 05/15/2016 07:00) 6. atorvastatin 40 mg oral tab 1 tab once daily (Last dose: 05/15/2016 07:00) 7. Lantus 100 unit/mL Sub-Q crtg 52 unit daily (Last dose: 05/15/2016 07:00) 8. Novolin R Sub-Q as needed sliding scale 6 units this am 9. glyburide 5 mg Oral tab 2 tabs 2 times per day (Last dose: 05/15/2016 07:00) 10. levothyroxine 125 mcg Oral tab 1 tab once daily (Last dose: 05/15/2016 07:00) 11. Prilosec 40 mg Oral cpDR 1 cap once daily (Last dose: 05/15/2016 07:00) 12. prednisone 20 mg Oral tab once daily (Last dose: 05/15/2016 07:00) - PMHx: Diabetes - IDDM: controlled; Hypertension; Sleep Apnea w/ CPAP; GERD; Non-Hodgkin's Lymphoma; Hypothyroidism; Hypercholesterolemia; atrial flutter; CHF; - PSHx: Knee surgery- Right; Arthroscopy, Knee- Left; Shoulder Arthroplasty, Left; Hernia repair; Cataract Surgery- Bilateral; lymphnode removal; cardiac ablation x 3 (April 04, 2016); cardioversion(January 14, 2016); - Social history: Smoking status: Patient states was never smoker of tobacco. No barriers to communication noted, Speaks appropriately for age. - Family history: Not pertinent. - : The pt / caregiver states he / she is not on anticoagulants. Home medication list is obtained from the patient. - Exposure Risk Screening:: None identified. Screenin:00 Screening information is obtained from the patient. Fall risk: No risks identified. jmk Assistance ADL's: requires no assistance with activities of daily living. Abuse/DV Screen: The patient / caregiver reports he/she is: not in a situation that causes fear, pain or injury. Nutritional screening: No deficits noted. home support is adequate. 11:47 Advance Directives: Currently, there is no health care proxy. There is no active DNR k order. There is no living will. There is no Power of Forensic Medical Examiner. Advance directive information has not previously been placed in an [facility] medical record. Further advance directive information is declined information regarding advance directives can be obtained from . Assessment: 11:00 General: Appears uncomfortable, skin warm and dry color satisfactory. Moist pink oral jmk mucosa. good recall of events. REGINALDO brisk body survey reveals old 2" area of ecchymosis to right antecubital area. Painful left knee. slight swelling noted. Pedal pulse intact . care specialist less than 2 sec. skin integrity intact.. Neurological: Level of Consciousness is awake, alert, Oriented to person, place, time, Environmental Protection Economist are equal bilaterally. Cardiovascular: Capillary refill < 3 seconds Clubbing of nail beds is absent Heart tones S1 S2 present. Respiratory: No deficits noted. Airway is patent Respiratory effort is even, unlabored, Respiratory pattern is regular, Breath sounds are clear bilaterally. GI: Abdomen is obese, Bowel sounds present X 4 quads. 11:50 General: Appears medicated as per order for lower extremity pain that increases with jmk movement.. 12:59 General: Appears returned from x ray. reports pain has decreased to 5/10.. jmk 14:31 General: Appears states pain level is still 5/10 and has support from knee immobilizer. sergio Is able to support own weight. Has walker for use at home.. Vital Signs: 09:57 BP 198 / 93; Pulse 88; Resp 20; Temp 97.3; Pulse Ox 99% ; Weight 95.25 kg; Height 4 ft. f 9 in. (144.78 cm); Pain 10/10; 11:47 BP 192 / 74 (auto/); jmk 11:47 Pulse 82 MON; jmk 11:47 BP 156 / 72; Pulse 74; Resp 16; Temp 97.3; jmk 12:02 BP 176 / 77 (auto/); jmk 12:02 Pulse 74 MON; jmk 09:57 Body Mass Index 45.44 (95.25 kg, 144.78 cm) [facility] Vitals: 09:57 Log In Time: May 15, 2016 at 09:40. jlf 10:11 RN notified that patient meets Red Flag criteria. [facility] ED Course: 09:56 Patient visited by Luis Garland PCA. jlf 09:56 Ronald Freeman is Private Physician. jlf 09:56 Patient moved to Waiting jlf 09:58 Patient visited by Luis Garland PCA. jlf 10:06 Patient moved to Pre RCE jrd 10:10 Patient moved to I8 / 16 ml6 10:11 Triage Initiated ml6 10:25 Patient visited by uLis Graland PCA. jlf 10:25 EKG done. (by ED staff). Reviewed by Rylee Wilson MD. jlf 10:56 Patient visited by Luis Garland PCA. jlf 11:00 The patient / caregiver is instructed regarding the plan of care and ED course. jmk 11:00 Inserted saline lock: 20 gauge in left antecubital area. jmk 11:02 Rylee Wilson MD is Attending Physician. ml 11:02 Patient visited by Rylee Wilson MD. ml 11:04 Patient visited by Jose Saldana,JERMAINE. jmk 11:06 PTT Sent. jmk 11:06 PT/INR Sent. jmk 11:06 MED Profile Sent. jmk 11:06 CBC with Diff Sent. jmk 11:40 Patient visited by Luis Garland PCA. jlf 11:47 Discontinued lock intact, bleeding controlled, pressure dressing applied, No jmk redness/swelling at site. No procedures done that require assistance. 11:51 Patient visited by Jose Saldana,JERMAINE. jmk 11:51 CT Head Without Contrast Returned. EDMS 11:52 CT Spine,Cervical W/o Contrast Returned. EDMS 11:53 [place] [place] Agreement was scanned into [employer] and attached to record. lg 12:59 Patient visited by Jose Saldana,JERMAINE. jmk 13:31 Patient visited by Shi Espinoza PCA. ct3 13:32 Knee, Complete Returned. EDMS 13:32 Chest, 1 View Returned. EDMS 13:33 Tibia/Fibula Returned. EDMS 13:33 Femur Returned. EDMS 14:08 Pelvis Returned. EDMS 14:12 Ronald Freeman is Referral Physician. ml 14[facility] ml 17:50 EKG-ADULT Returned. EDMS 05/16 12:13 T-Sheet-- Draft Copy was scanned into [employer] and attached to record. gb 12:13 ECG/EKG was scanned into [employer] and attached to record. gb 12:14 Radiology Report was scanned into [employer] and attached to record. gb Administered Medications: 05/15 11:50 Drug: oxyCODONE-acetaminophen 1 tabs [oxycodone-acetaminophen 5 mg-325 mg tablet (1 jmk tabs)] Route: PO; Order Results: Lab Order: CBC with Diff; SPEC'M 05/15/16 11:01 Test: WHITE BLOOD COUNT; Value: 14.0; Range: 4.0-10.0; Abnormal: Above high normal; Units: K/mm3; Status: F Test: RED BLOOD COUNT; Value: 5.23; Range: 4.00-5.40; Units: M/mm3; Status: F Test: HEMOGLOBIN; Value: 14.2; Range: 12.0-16.0; Units: g/dl; Status: F Test: HEMATOCRIT; Value: 42.9; Range: 36.0-47.0; Units: %; Status: F Test: MEAN CORPUSCULAR VOLUME; Value: 82.1; Range: 80.0-96.0; Units: fl; Status: F Test: MEAN CORPUSCULAR HEMOGLOBIN; Value: 27.2; Range: 27.0-33.0; Units: pg; Status: F Test: MEAN CORPUSCULAR HGB CONC; Value: 33.1; Range: 32.0-36.5; Units: g/dl; Status: F Test: RED CELL DISTRIBUTION WIDTH; Value: 14.1; Range: 11.5-14.5; Units: %; Status: F Test: PLATELET COUNT, AUTOMATED; Value: 235; Range: 150-450; Units: k/mm3; Status: F Test: NEUTROPHILS %; Value: 86.1; Range: 36.0-66.0; Abnormal: Above high normal; Units: %; Status: F Test: LYMPH %; Value: 8.5; Range: 24.0-44.0; Abnormal: Below low normal; Units: %; Status: F Test: MONO %; Value: 3.9; Range: 0.0-5.0; Units: %; Status: F Test: EOS %; Value: 0.4; Range: 0.0-3.0; Units: %; Status: F Test: BASO %; Value: 0.1; Range: 0.0-1.0; Units: %; Status: F Test: LARGE UNSTAINED CELL %; Value: 1.1; Range: 0.0-4.0; Units: %; Status: F Test: NEUTROPHILS #; Value: 12.1; Range: 1.8-7.7; Abnormal: Above high normal; Units: K/mm3; Status: F Test: LYMPH #; Value: 1.2; Range: 1.5-4.5; Abnormal: Below low normal; Units: K/mm3; Status: F Test: MONO #; Value: 0.5; Range: 0.0-0.8; Units: K/mm3; Status: F Test: EOS #; Value: 0.0; Range: 0.0-0.50; Units: K/mm3; Status: F Test: BASO #; Value: 0.0; Range: 0.0-0.2; Units: K/mm3; Status: F Test: LARGE UNSTAINED CELL #; Value: 0.2; Range: 0.0-0.4; Units: K/mm3; Status: F Lab Order: MED Profile; SPEC'M 05/15/16 11:01 Test: GLUCOSE, FASTING; Value: 135; Range: 80-110; Abnormal: Above high normal; Units: MG/DL; Status: F Test: BLOOD UREA NITROGEN; Value: 33; Range: 7-18; Abnormal: Above high normal; Units: MG/DL; Status: F Test: CREATININE FOR GFR; Value: 1.72; Range: 0.55-1.02; Abnormal: Above high normal; Units: MG/DL; Status: F Test: GLOMERULAR FILTRATION RATE; Value: 31.4; Range: >45; Abnormal: Below low normal; Status: F Test: SODIUM LEVEL; Value: 139; Range: 136-145; Units: MEQ/L; Status: F Test: POTASSIUM SERUM; Value: 4.9; Range: 3.5-5.1; Units: MEQ/L; Status: F Test: CHLORIDE LEVEL; Value: 106; Range: 98-107; Units: MEQ/L; Status: F Test: CARBON DIOXIDE LEVEL; Value: 25; Range: 21-32; Units: MEQ/L; Status: F Test: ANION GAP; Value: 8; Range: 8-16; Units: MEQ/L; Status: F Test: CALCIUM LEVEL; Value: 8.7; Range: 8.8-10.2; Abnormal: Below low normal; Units: MG/DL; Status: F Test Note: ; Units are mL/min/1.73 m2 Chronic Kidney Disease Staging per NKF: Stage I & II GFR >=60 Normal to Mildly Decreased Stage III GFR 30-59 Moderately Decreased Stage IV GFR 15-29 Severely Decreased Stage V GFR <15 Very Little GFR Left ESRD GFR <15 on BOBTAIL DRIVER Lab Order: PT/INR; SPEC'M 05/15/16 11:01 Test: PROTHROMBIN TIME; Value: 14.7; Range: 12.3-14.5; Abnormal: Above high normal; Units: SECONDS; Status: F Test: INR; Value: 1.14; Status: F Test Note: ; THERAPUTIC HUMAN INR VALUES INDICATIONS NORMAL RANGES PROPHYLAXIS/TREATMENT OF: VENOUS THROMBOSIS 2.0-3.0 PULMONARY EMBOLISM 2.0-3.0 PREVENTION OF SYSTEMIC EMBOLISM FROM: TISSUE HEART VALVES 2.0-3.0 ACUTE MYOCARDIAL INFARCTION 2.0-3.0 VALVULAR HEART DISEASE 2.0-3.0 ATRIAL FIBRILLATION 2.0-3.0 MECHANICAL VALVES(HIGH RISK) 2.5-3.5 RECURRENT MYOCARDIAL INFARCTION 2.5-3.5 Lab Order: PTT; SPEC'M 05/15/16 11:01 Test: PARTIAL THROMBOPLASTIN TIME; Value: 23.5; Range: 26.6-37.1; Abnormal: Below low normal; Units: SECONDS; Status: F Radiology Order: EKG-ADULT Test: EKG-ADULT REASON FOR EXAMINATION: Trauma;Syncope; Stationary ECG Study; [facility] - ED; ; Test Date: 2016-05-15; Pat Name: JUDY VEGA Department:; Room: -; Gender: F Press Breaker: nito; : 1945 Requested By: Jo Figueroa; Order Number: [id number] Reading MD: Robert Laguna; Measurements; Intervals Kane; Rate: 89 P: -24; NH: 197 QRS: 1; QRSD: 98 T: 50; QT: 372; QTc: 454; Interpretive Statements; SINUS RHYTHM; ; Electronically Signed On 05-15-2016 17:31:46 EST by Robert Laguna; Radiology Order: CT Head Without Contrast Test: CT Head Without Contrast REASON FOR EXAMINATION: fall, on eliquis; CT Head without contrast; ; HISTORY: Fall; ; COMPARISON: 03/25/2013; ; There is no intraparenchymal hemorrhage, acute infarct, mass or midline shift.; The ventricular system is normal in appearance. There is no extra cerebral; collection. There is no fracture. Minimal mucosal thickening is present in the; right maxillary sinus.; ; IMPRESSION: There is no intracranial lesion.; ; ; ; ; Signed by; Sulaiman Sanches MD 05/15/2016 11:17 A; Radiology Order: CT Spine,Cervical W/o Contrast Test: CT Spine,Cervical W/o Contrast REASON FOR EXAMINATION: fall on eliquis; CT CERVICAL SPINE WITHOUT CONTRAST:; ; HISTORY: Trauma.; ; COMPARISON: 03/25/2013.; ; There is no acute fracture or subluxation. Disc bulges are present at the C4-5; through C6-7 levels. There is minimal narrowing of the spinal canal. Facet; hypertrophy is present at the C4-5 through C6-7 levels. This produces minimal; narrowing of the neural foramina. The C5-6 and C6-7 intervertebral discs are; decreased in height consistent with disc degeneration. Anterior osteophytes are; present on C3-5.; ; IMPRESSION:; ; 1. There is no acute fracture or subluxation.; ; 2. There is cervical spondylosis at the C3-4 through C6-7 levels.; ; ; Signed by; Sulaiman Sanches MD 05/15/2016 11:41 A; Radiology Order: Pelvis Test: Pelvis REASON FOR EXAMINATION: fall; PELVIS, TWO VIEWS:; ; HISTORY: Fall.; ; There is no acute fracture or dislocation. There is narrowing of the joint; spaces.; ; IMPRESSION:; ; Degenerative change as described above.; ; ; Signed by; Sulaiman Sanches MD 05/15/2016 01:33 P; Radiology Order: Femur Test: Femur REASON FOR EXAMINATION: fall; LEFT FEMUR, FOUR VIEWS:; ; HISTORY: Fall.; ; There is no acute fracture or dislocation. There is narrowing of the left hip; and knee joint spaces. Osteophytes are present at the left knee joint.; ; IMPRESSION:; ; Degenerative change as described above.; ; ; Signed by; Sulaiman Sanches MD 05/15/2016 01:33 P; Radiology Order: Knee, Complete Test: Knee, Complete REASON FOR EXAMINATION: pain; LEFT KNEE, FIVE VIEWS:; ; HISTORY: Pain.; ; There is no acute fracture or dislocation. There is narrowing of the joint; spaces. Osteophytes are present on the femur, tibia and patella. The bony; structure is osteopenic.; ; IMPRESSION:; ; Degenerative change as described above.; ; ; Signed by; Sulaiman Sanches MD 05/15/2016 01:30 P; Radiology Order: Tibia/Fibula Test: Tibia/Fibula REASON FOR EXAMINATION: pain; Left TIB-fib series: Three views.; ; History: Pain.; ; Findings: There is pretibial soft tissue swelling particularly at the proximal; calf level. Vascular calcifications noted. There is some diffuse osteopenia.; No fracture or periosteal reaction is seen.; ; Impression:; ; Vascular calcification. Soft tissue swelling. No acute bony abnormality.; ; ; Signed by; Carroll Huizar MD 05/15/2016 01:44 P; Radiology Order: Chest, 1 View Test: Chest, 1 View REASON FOR EXAMINATION: fall; Chest x-ray: Single view.; ; History: Injury in a fall.; ; Findings: There is an Ocpcym-B-Gnlq catheter via the left internal jugular line; with its tip in the expected location of the superior vena cava. There is no; evidence of pneumothorax or hydrothorax. There are clips in right upper quadrant; of the abdomen. The lungs are symmetrically aerated and free of infiltrate.; Pleural angles are sharp. Mediastinum is not widened. Heart size is mildly; enlarged but unchanged. There are degenerative changes in the left shoulder.; ; Impression:; ; Gmpijy-R-[id number] catheter in place. Mild cardiomegaly. Otherwise no acute; disease.; ; ; Signed by; Carroll Huizar MD 05/15/2016 01:44 P; Outcome: 11:47 Discharge Assessment: Patient awake, alert and oriented x 3. No cognitive and/or k functional deficits noted. Patient verbalized understanding of disposition instructions. patient administered narcotics - yes. Pt provided with safe discharge. The following High Risk Discharge criteria are identified: None. Discharged to. Condition: good. Discharge instructions given to patient, Instructed on discharge instructions, follow up and referral plans. medication usage, no driving heavy equipment, Demonstrated understanding of instructions, medications, Pt was receptive of discharge instructions/ teaching. Prescriptions given X 1. CT Study completed. Property :Personal belongings accompany Pt. 14:14 Discharge ordered by Provider. 14:49 Patient left the ED. noam Signatures: Dispatcher [employer] EDMS Rylee Wilson MD MD ml Jose Saldana,RN RN k Taryn Cotton, Reg Reg gb Hao Capellan, Reg Reg lg Bird Carvalho, RN RN ml6 Shi Espinoza, DOG OR HORSE RACING OFFICIAL DOG OR HORSE RACING OFFICIAL ct3 Luis Garland, DOG OR HORSE RACING OFFICIAL DOG OR HORSE RACING OFFICIAL jlf Twan Queen, DOG OR HORSE RACING OFFICIAL DOG OR HORSE RACING OFFICIAL jrd Chart Complete JAQUAN
== END 2016-05-15 14:49 | disposition home or self-care (01) ==
LOC: M ED 09:55
DX: R07.9 Chest pain, unspecified (principal); S80.02XA Contusion of left knee, initial encounter; S80.12XA Contusion of left lower leg, initial encounter; W01.0XXA Fall on same level from slipping, tripping and stumbling without subsequent striking against object, initial encounter; Y92.014 Private driveway to single-family (private) house as the place of occurrence of the external cause; Y93.89 Activity, other specified; Y99.8 Other external cause status; I10 Essential (primary) hypertension; E11.9 Type 2 diabetes mellitus without complications; I50.9 Heart failure, unspecified; G47.30 Sleep apnea, unspecified; K21.9 Gastro-esophageal reflux disease without esophagitis; C85.90 Non-Hodgkin lymphoma, unspecified, unspecified site; E03.9 Hypothyroidism, unspecified; E78.00 Pure hypercholesterolemia, unspecified; I48.92 Unspecified atrial flutter; Z79.899 Other long term (current) drug therapy; Z79.01 Long term (current) use of anticoagulants; Z79.84 Long term (current) use of oral hypoglycemic drugs; Z79.4 Long term (current) use of insulin; Z79.52 Long term (current) use of systemic steroids; Z88.8 Allergy status to other drugs, medicaments and biological substances

== ENCOUNTER → 2016-06-19 | Outpatient (CLI) | payer MEDICARE ==
--- NOTE | 2016-06-19 15:20 | REP ---
CHEST, TWO VIEWS: Two views of the chest are performed. There is chronic interstitial fibrotic change diffusely bilaterally, more so in the lung bases. The findings are stable. They appear similar to the prior exam of 02/03/2014. The heart is upper limits of normal in size. Mediastinal silhouette is unchanged. There is mild calcification of the thoracic aorta. MediPort catheter appears unchanged. There are degenerative changes of the spine. IMPRESSION: Stable chronic fibrotic changes without evidence of acute infiltrate. Signed by Marty Chau MD 06/19/2016 05:00 P
== END ==
LOC: M WUC 14:36
PROVIDERS: ATTEND Internal Medicine Pulmonary Disease
DX: R91.8 Other nonspecific abnormal finding of lung field (principal); J84.10 Pulmonary fibrosis, unspecified

== ENCOUNTER 2016-06-30 19:20 | Inpatient (IN) | payer MEDICARE ==
[~2016-06-30] VITALS: Ht 152.4 cm; Wt 99.3 kg
[2016-06-30] MEDS ORDERED: GLIP5TAB8 PO (19:43)
[2016-06-30] MEDS ORDERED: SPIR25TA2 PO (19:43)
[2016-06-30] MEDS ORDERED: OMEP40CA2 PO (19:43)
[2016-06-30] MEDS ORDERED: PRED5TA PO (19:43)
[2016-06-30] MEDS ORDERED: INSUHUMDS SC (19:43)
[2016-06-30] MEDS: IPRATROPIUM 0.5MG/ALBUTEROL 2.5MG INH SOL UD 3ML (DUONEB)(J7620) NEB PRN ×3 (20:53→22:25)
[2016-06-30 21:15] LABS: VENOUS BASE EXCESS 1.7 (-2.0-2.0); VENOUS O2 SATURATION 73.3 % (60.0-80.0); VENOUS PARTIAL PRESSURE CO2 47.2 mmHg (38.0-50.0); VENOUS PARTIAL PRESSURE O2 40.3 mmHg (30.0-50.0); VENOUS STANDARD HCO3 25.4 MEQ/L; VENOUS TOTAL CO2 28.9 MEQ/L (24.0-28.0)
[2016-06-30 21:32] LABS: BASO % 0.4 % (0.0-1.0); EOS # 0.2 K/mm3 (0.0-0.50); EOS % 1.4 % (0.0-3.0); LARGE UNSTAINED CELL # 0.3 K/mm3 (0.0-0.4); LARGE UNSTAINED CELL % 2.4 % (0.0-4.0); LYMPH # 1.9 K/mm3 (1.5-4.5); LYMPH % 17.4 % (24.0-44.0); MEAN CORPUSCULAR HEMOGLOBIN 27.3 pg (27.0-33.0); MEAN CORPUSCULAR HGB CONC 32.5 g/dl (32.0-36.5); MEAN CORPUSCULAR VOLUME 84.1 fl (80.0-96.0); MONO # 0.7 K/mm3 (0.0-0.8); MONO % 6.3 % (0.0-5.0); NEUTROPHILS # 8.1 K/mm3 (1.8-7.7); NEUTROPHILS % 72.1 % (36.0-66.0); PLATELET COUNT, AUTOMATED 253 k/mm3 (150-450); RED CELL DISTRIBUTION WIDTH 14.1 % (11.5-14.5); WHITE BLOOD COUNT 11.2 K/mm3 (4.0-10.0)
[2016-06-30 21:51] LABS: CALCIUM LEVEL 8.5 MG/DL (8.8-10.2); CREATININE FOR GFR 1.66 MG/DL (0.55-1.02); GLOMERULAR FILTRATION RATE 32.7 (>45)
[2016-06-30 22:03] LABS: POTASSIUM SERUM 5.4 MEQ/L (3.5-5.1)
[2016-07-01] MEDS ORDERED: methylPREDNISolone INJ 125 MG/2 ML VIAL (J2930) IV ONE (00:15)
[2016-07-01] MEDS ORDERED: BENZONATATE 100 MG CAP PO ONE (00:15)
[2016-07-01] MEDS ORDERED: IPRATROPIUM 0.5MG/ALBUTEROL 2.5MG INH SOL UD 3ML (DUONEB)(J7620) NEB ONE (00:15)
--- NOTE | 2016-07-01 01:20 | REPUSA ---
CLINICAL HISTORY: Shortness of breath. TECHNIQUE: Multiple axial CT images were obtained through the thorax without IV contrast material. COMMENTS: Bilateral diffuse basilar pulmonary interstitial thickening. Ground glass densities in the lung bases. Mild cardiomegaly. There is no evidence of pleural or parenchymal-based mass. There are no pleural effusions. There is n o evidence of hilar or mediastinal lymphadenopathy. The heart and great vessels are within normal lilly its. The visualized portions of the liver are of uniform attenuation without mass or defect. There is no i ntra or extrahepatic biliary ductal dilatation. The spleen is unremarkable. The visualized pancreas i s of normal contour and attenuation characteristics. There is no evidence of adrenal mass. The visual ized portions of the kidneys present no abnormalities. Small sliding hiatal hernia. The bony structures are free of lytic or blastic lesions. IMPRESSION: Diffuse chronic interstitial pulmonary disease. Bilateral groundglass densities in the lung bases. Infectious/inflammatory pathology is considered. Thank you for your kind referral of this patient.
[2016-07-01] MEDS ORDERED: ELIQ5TAB PO (03:28)
[2016-07-01] MEDS ORDERED: SYNT125T PO (03:29)
[2016-07-01] MEDS ORDERED: LEVALBUTEROL 1.25 MG/0.5 ML CONCENTRATE NEB INH PRN (04:30)
[2016-07-01] MEDS ORDERED: IPRATROPIUM 0.02% SOLN 0.5MG/2.5 ML NEB INH PRN (04:30)
[2016-07-01] MEDS ORDERED: GLUCOSE 4 GM CHEW TABLET PO PRN (05:00)
[2016-07-01] MEDS ORDERED: DEXTROSE 50% 50 ML SYRINGE IV PRN (05:00)
[2016-07-01] MEDS ORDERED: GLUCAGON FOR INJ 1 MG VIAL (J1610) SC PRN (05:00)
[2016-07-01] MEDS ORDERED: ONDANSETRON 4MG/2ML VIAL (J2405) IV PRN (05:00)
--- NOTE | 2016-07-01 05:48 | HPEPDOC ---
General Date of Admission Jul 01, 2016 at 03:52 Primary Care Physician: Ronald Freeman MD Attending Physician: DONELL NY MD Chief Complaint The patient is a 71-year-old female admitted with a reason for visit of Copd Exacerbation. Source: Patient, RN notes reviewed, Old records Exam Limitations: No limitations Timing/Duration: Getting worse Severity: Moderate Associated Symptoms: Cough, Diaphoresis, Nausea, Vomiting, Shortness of breath History of Present Illness Ms. Vega is a 71-year-old female who presents to [facility]'s emergency Department with progressively worsening cough and shortness of breath. Past medical history is significant for paroxysmal atrial fibrillation, systolic congestive heart failure, non-Hodgkin's lymphoma, obstructive sleep apnea on CPAP, dyslipidemia, diabetes mellitus, hypothyroidism, gastroesophageal reflux disease, hypertension, right parotid tumor, cervical adenopathy, right knee osteoarthritis, left shoulder rotator cuff tear, left knee osteochondral defect medial femoral condyle with medial meniscus tear. Patient states that she has had a dry cough since 2015. At that time she presented to the oncologist office and received a PET scan which showed bilateral lung infiltrates. She then presented to the wire harness design engineer's office who started the patient on steroids. Patient currently remains on tapering doses of steroids and is currently taking 5 mg of prednisone. In May she presented to primary care provider's office thinking that she had the flu. Flu test was negative. Again, patient was started on steroids. She had a follow-up appointment with the wire harness design engineer and at that time a chest x-ray was clear. Patient notes that the cough has gotten progressively worse and that over the last week or so she has started coughing and cannot stop. She states that she is unable to take a deep breath secondary to the cough and that her shortness of breath worsens with ambulation. However, she states that her cough seems to improve with recumbency. She does note that in the mornings upon rising she has some sinus drainage and clear sputum production, but that clears up. Patient states that she has been using Mucomyst and Robitussin which provide short-term , minimal relief. Patient reports always feeling tired, some nausea and vomiting that she associates with the cough, diaphoresis, wheeze, palpitations, runny nose, diarrhea. She also reports a sore throat likely secondary to the cough. She she appears to recall that the dry cough started around the same time as her chemotherapy was ending for non-Hodgkin's lymphoma in 2013. Unless mentioned above review of systems was otherwise negative. Hospitalist was consulted and patient was subsequently admitted for medical management. Home Medications Scheduled Apixaban Base (Eliquis) 5 Mg Tab 5 MG PO BID (Reported) Atorvastatin Calcium (Atorvastatin Calcium) 40 Mg Tab 40 MG PO QHS (Reported) Benzonatate (Benzonatate) 100 Mg Cap 200 MG PO Q8H Glipizide (Glipizide) 5 Mg Tab 10 MG PO BID (Reported) Insulin Glargine (Lantus) 1 Units/0.01 Ml Susp 52 UNITS SC DAILY (Reported) Insulin Human Lispro (Humalog) 1 Units/0.01 Ml Inj SC ASDIRECTED (Reported) Per Sliding Scale Ipratropium [place] (Ipratropium [place]) 0.5 Mg/2.5 Ml Soln 0.5 MG INH RQID Levalbuterol Hydrochloride (Xopenex Concentrate) 1.25 Mg/0.5 Ml Neb 1.25 MG INH QID DYSPNEA Levothyroxine Sodium (Synthroid) 125 Mcg Tab 125 MCG PO QAM (Reported) Multivitamins *[facility] STOCKED* (Thera M Plus *[facility] STOCKED*) 1 Tab Tab 1 TAB PO DAILY (Reported) Omeprazole (Omeprazole) 40 Mg Cap 40 MG PO DAILY (Reported) Prednisone (Prednisone) 20 Mg Tab 20 MG PO TID Spironolactone (Spironolactone) 25 Mg Tab 50 MG PO DAILY (Reported) Allergies Coded Allergies: Sitagliptin (Verified Allergy, Mild, RASH, 07/23/12) Latex (Verified Adverse Reaction, Mild, RISK, 07/23/12) Lisinopril (Unverified Adverse Reaction, Unknown, Cough, 01/15/16) Past Medical History Medical History 1. Paroxysmal atrial fibrillation 2. Systolic congestive heart failure 3. History of non-Hodgkin's lymphoma 4. Obstructive sleep apnea on CPAP 5. Dyslipidemia 6. Diabetes mellitus 7. Hypothyroidism 8. Gastroesophageal reflux disease 9. Hypertension 10. Right parotid tumor 11. History of cervical adenopathy 12. Right knee osteoarthritis 13. Left shoulder rotator cuff tear 14. Left knee osteochondral defect medial femoral condyle with medial meniscal tear Surgical History 1. Cardiac ablation 3 2. Cardioversion 2 3. Right superficial parotidectomy 4. Excision of left deep cervical lymph nodes, level IIa, III 5. Right total knee arthroplasty 6. Left shoulder open rotator cuff repair with subacromial decompression 7. Biceps tenotomy 8. Partial medial meniscectomy 9. 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 Dyspnea Gastrointestinal: Reports: Diarrhea, Nausea, Vomiting, Denies: Abdominal Pain, Constipation, Hematochezia, Melena Genitourinary: Denies: Dysuria, Frequency, Hematuria, Incontinence Hematologic: Reports: Bruising (secondary to Eliquis) Musculoskeletal: Denies: Back Pain Neurological: Denies: Numbness Physical Examination General Exam: Positive: Alert, Cooperative Eye Exam: Positive: EOMI, PERRLA, Negative: Conjunctiva & lids normal (conjunctiva are mildly erythematous bilaterally), Sclera icteric ENT Exam: Positive: Atraumatic, Mucous membr. moist/pink, Nares Patent (nasal cannula in place), Pharyngeal Edema, Pharynx Normal, Tongue Midline Neck Exam: Positive: Supple, Negative: JVD, Lymphadenopathy, thyromegaly Chest Exam: Positive: Normal air movement, Rales (bilateral lung bases) Heart Exam: Positive: Normal S1, Normal S2, Tachycardic Telemetry: Positive: Tachycardia Abdomen Exam: Positive: Normal bowel sounds, Soft, Negative: Hepatospenomegaly, Tenderness Extremity Exam: Positive: Normal pulses, Negative: Clubbing, Cyanosis, Edema, Swelling, Tenderness Skin Exam: Positive: Nl turgor and temperature Neuro Exam: Positive: Normal Speech Psych Exam: Positive: Oriented x 3 Vital Signs T 97.9 HR 110 RR 18 BP 170/80 O2 97% on 2 L by nasal cannula Height (in): 60 Weight (kg): 96.615 BMI (kg): 41.6 Laboratory Data Labs 24H Laboratory Tests 2 06/30/16 21:01: Anion Gap 9, B-Type Natriuretic Peptide 85.9, White Blood Count 11.2H, Red Blood Count 4.80, Hemoglobin 13.1, Hematocrit 40.3, Mean Corpuscular Volume 84.1 , Mean Corpuscular Hemoglobin 27.3, Mean Corpuscular Hemoglobin Concent 32.5, Red Cell Distribution Width 14.1, Platelet Count 253, Neutrophils (%) (Auto) 72.1H, Lymphocytes (%) (Auto) 17.4L, Monocytes (%) (Auto) 6.3H, Eosinophils (%) (Auto) 1.4, Basophils (%) (Auto) 0.4, Neutrophils # (Auto) 8.1H, Lymphocytes # ( Auto) 1.9, Monocytes # (Auto) 0.7, Eosinophils # (Auto) 0.2, Basophils # (Auto) 0.0, Blood Gas Bicarbonate Standard 25.4, Blood Urea Nitrogen 22H, Creatinine 1.66H, Sodium Level 144, Potassium Level 5.4H, Chloride Level 107, Carbon Dioxide Level 28, Calcium Level 8.5L, Total Creatine Kinase 94, Creatine Kinase MB 1.9, Creatine Kinase MB Relative Index 2.02, Glomerular Filtration Rate 32.7L , Large Unclassified Cells # 0.3, Large Unclassified Cells % 2.4, Troponin I 0.02, Venous Blood Base Excess 1.7, Venous Blood pH 7.382, Venous Blood Partial Pressure CO2 47.2, Venous Blood Partial Pressure O2 40.3, Venous Blood Total Carbon Dioxide 28.9H, Venous Blood HCO3 27.4H, Venous Blood Oxygen Saturation 73.3 CBC/BMP Laboratory Tests 06/30/16 21:01 Calcium Level 8.5 L, Total Creatine Kinase 94, Red Blood Count 4.80, Mean Corpuscular Volume 84.1, Mean Corpuscular Hemoglobin 27.3, Mean Corpuscular Hemoglobin Concent 32.5, Red Cell Distribution Width 14.1, Neutrophils (%) (Auto ) 72.1 H, Lymphocytes (%) (Auto) 17.4 L, Monocytes (%) (Auto) 6.3 H, Eosinophils (%) (Auto) 1.4, Basophils (%) (Auto) 0.4, Neutrophils # (Auto) 8.1 H , Lymphocytes # (Auto) 1.9, Monocytes # (Auto) 0.7, Eosinophils # (Auto) 0.2, Basophils # (Auto) 0.0 Microbiology Microbiology 06/30/16 Blood Culture, Received Pending 06/30/16 Respiratory Virus Panel (PCR) (BOB) - Final, Complete RAD Interpretation STUDY: CXR Rad Actions: Report Reviewed (chronic interstitial pulmonary disease, bilateral groundglass densities in the lung bases) Assessment/Plan 71-year-old female who presents with progressive cough and worsening shortness of breath likely secondary to interstitial lung disease. Problems (1) Interstitial lung disease Status: Acute Problem Text: Patient appears to clinically improve with steroids Prescribed Solu-Medrol 60 mg IV every 8 hours Administer Xopenex as this is less likely to cause tachycardia Could consider consulting pulmonary during this hospitalization (2) Leukocytosis Status: Acute Problem Text: Could possibly be due to reactivity The patient is tachycardic and hypertensive; this could possibly be secondary to progressive worsening of patient's cough and shortness of breath Appears less likely to be septic in nature Respiratory panel was negative and blood cultures are being monitored Monitor with CBC (3) Hyperkalemia Status: Acute Problem Text: Patient's potassium was 5.4 EKG on admission showed normal sinus rhythm Will obtain follow-up EKG to monitor for electrolyte derangements Monitor with BMP (4) HTN (hypertension) Status: Acute Problem Text: Ordered nitrates as this does appear to have a mortality benefit Could consider starting an angiotensin receptor zuly in the future (5) Systolic dysfunction Status: Chronic Problem Text: Deferred to outpatient providers for continued medical management (6) T2DM (type 2 diabetes mellitus) Status: Chronic Problem Text: Blood glucose 116 Will provide coverage with sliding scale insulin and fingersticks before meals and at bedtime Will also provide long-term coverage (7) CKD (chronic kidney disease) Status: Chronic Problem Text: Creatinine of 1.66 Her creatinine does not appear to be too far from her apparent baseline Possibly secondary to diabetic nephropathy Monitor with daily BMP (8) Hypothyroidism (acquired) Status: Chronic Problem Text: Patient will be continued on her home dose of levothyroxine Will check a TSH Plan / VTE VTE Prophylaxis Ordered?: Yes (patient on Eliquis for paroxysmal atrial fibrillation) Plan Plan Interstitial lung disease Since patient does appear to show clinical improvement with administration of steroids we will start Solu-Medrol 60 mg IV every 8 hours. To help alleviate patient's shortness of breath we will start Xopenex as this is less likely to cause tachycardia. Patient appears to be tachycardic currently. Could consider consulting pulmonary during this hospitalization. Hypertension Nitrates and hydralazine have shown to have a mortality benefit similar to angiotensin converting enzyme inhibitors and angiotensin receptor blockers. For this reason it seems reasonable to start the patient on nitrates to attempt to control her elevated blood pressure. Could consider starting an angiotensin receptor zuly in the future since patient did develop a cough on lisinopril. Reluctant to start an angiotensin receptor zuly during this hospitalization as patient currently has cough. Systolic dysfunction Defer to outpatient providers for continued medical management. Hyperkalemia On laboratory monitoring patient had a potassium of 5.4. The EKG performed at presentation did not appear to show any acute electrolyte derangements and showed sinus tachycardia. Will discontinue patient's spironolactone for the time being, we'll obtain a follow-up EKG, and monitor potassium with a BMP. Leukocytosis Patient's white count was 11.2. This is likely a reactive process and less likely a sepsis picture. We'll monitor blood cultures. Respiratory panel thus far has been negative. CKD Patient's creatinine and presentation was 1.66. Looking through her prior records it does not appear to be too far from baseline. This could be secondary to her underlying diabetes and possible diabetic nephropathy. Diabetes mellitus Coverage provided with Levemir 52 units and sliding scale insulin with fingersticks before meals and at bedtime. Hypothyroidism Patient continued on home dose of levothyroxine. A TSH level will be checked. Disposition Admit to PCU Anticipated hospitalization: 2 nights Diet: Continue Current Activity: Continue Current Diagnostics: Check Labs, Repeat Labs in AM, Obtain Cultures, Repeat EKG Anticipated Discharge: Home TERESA HERNANDEZ Jul 01, 2016 05:48
[2016-07-01 06:00] VITALS: BP 142/77
[2016-07-01] MEDS: LEVOTHYROXINE 0.125 MG TAB (125 MCG) PO SCH (06:51)
[2016-07-01] MEDS: ISOSORBIDE MON. (IMDUR) 60 MG XR TAB PO SCH ×2 (07:10→09:00)
[2016-07-01] MEDS: IPRATROPIUM 0.02% SOLN 0.5MG/2.5 ML NEB INH SCH ×4 (07:53→20:09)
[2016-07-01] MEDS: LEVALBUTEROL 1.25 MG/0.5 ML CONCENTRATE NEB INH SCH ×4 (07:53→20:09)
[2016-07-01] MEDS: LEVEMIR (INSULIN DETEMIR) 1 UNITS/0.01ML SC SCH (08:37)
[2016-07-01] MEDS: HumaLOG INSULIN (NovoLOG) PER UNIT SC SCH ×3 (08:37→17:12)
[2016-07-01] MEDS: APIXABAN 5 MG TAB (ELIQUIS) PO SCH ×2 (08:38→21:16)
[2016-07-01] MEDS: methylPREDNISolone INJ 125 MG/2 ML VIAL (J2930) IV SCH ×2 (08:38→16:00)
[2016-07-01] MEDS: OMEPRAZOLE 20 MG CAP PO SCH (08:38)
[2016-07-01] MEDS: MULTIVITAMINS/MINERALS THERAP 1 TAB PO SCH (08:38)
--- NOTE | 2016-07-01 09:10 | ECGEPIP ---
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
--- NOTE | 2016-07-01 10:58 | IPNPDOC ---
Subjective Date Seen The patient was seen on 07/01/16. Subjective Chief Complaint/HPI Pt reports persisting cough without much improvement overnight. Limits her ability to do much because exertion triggers the cough as well as SOB. General: Denies: Fatigue Constitutional: Denies: Chills, Fever Pulmonary: Reports: Cough, Dyspnea Cardiovascular: Denies: Chest Pain, Palpitations Gastrointestinal: Denies: Diarrhea, Nausea, Vomiting Neurological: Reports: Weakness Psych: Reports: Mood Normal Objective Physical Examination General Exam: Positive: Alert, Cooperative ENT Exam: Positive: Mucous membr. moist/pink Neck Exam: Positive: Supple, Negative: JVD, Lymphadenopathy, thyromegaly Chest Exam: Positive: Normal air movement, Other (harsh cough), Rales (Fine fibrotic rales bilateral lung bases) Heart Exam: Positive: Normal S1, Normal S2, Tachycardic Telemetry: Positive: Tachycardia Abdomen Exam: Positive: Normal bowel sounds, Soft, Negative: Hepatospenomegaly, Tenderness Extremity Exam: Positive: Normal pulses, Negative: Clubbing, Cyanosis, Edema, Swelling, Tenderness Skin Exam: Positive: Nl turgor and temperature Neuro Exam: Positive: Normal Speech Psych Exam: Positive: Oriented x 3 Assessment /Plan Problems (1) Interstitial lung disease Status: Acute Problem Text: 07/01 - D2 Solumedrol 60 mg IV q8h, CT chest appears to have chronic changes, consider pulm consult, follows with Pulm as outpt, saw Yany about 2 w ago. 06/30 Patient appears to clinically improve with steroids Prescribed Solu-Medrol 60 mg IV every 8 hours Administer Xopenex as this is less likely to cause tachycardia Could consider consulting pulmonary during this hospitalization Will request pulmonary consult tomorrow. Will add tessalon perles for symptom reduction. (2) Leukocytosis Status: Acute Problem Text: 07/01 - WBC down from 14 to 11 today, afebrile. 3/ Could possibly be due to reactivity The patient is tachycardic and hypertensive; this could possibly be secondary to progressive worsening of patient's cough and shortness of breath Appears less likely to be septic in nature Respiratory panel was negative and blood cultures are being monitored Monitor with CBC (3) Hyperkalemia Status: Acute Problem Text: 07/01- will obtain repeat BMP in AM. 06/30 Patient's potassium was 5.4 EKG on admission showed normal sinus rhythm Will obtain follow-up EKG to monitor for electrolyte derangements Monitor with BMP (4) HTN (hypertension) Status: Acute Problem Text: 07/01 - Imdur 60 mg - pressures consistently improved, monitor. 06/30 Ordered nitrates as this does appear to have a mortality benefit Could consider starting an angiotensin receptor zuly in the future (5) Systolic dysfunction Status: Chronic Problem Text: Deferred to outpatient providers for continued medical management (6) T2DM (type 2 diabetes mellitus) Status: Chronic Problem Text: Blood glucose 116 Will provide coverage with sliding scale insulin and fingersticks before meals and at bedtime Will also provide long-term coverage (7) CKD (chronic kidney disease) Status: Chronic Problem Text: Creatinine of 1.66 Her creatinine does not appear to be too far from her apparent baseline Possibly secondary to diabetic nephropathy Monitor with daily BMP (8) Hypothyroidism (acquired) Status: Chronic Problem Text: Patient will be continued on her home dose of levothyroxine Will check a TSH Plan/VTE VTE Prophylaxis Ordered?: Yes (patient on Eliquis for paroxysmal atrial fibrillation) Plan Diet: Continue Current Activity: Continue Current Diagnostics: Check Labs, Repeat Labs in AM, Obtain Cultures, Repeat EKG Anticipated Discharge: Home VS, I&O, 24H, [facility] Vital Signs/I&O Vital Signs Date Time Temp Pulse Resp B/P Pulse Ox O2 Delivery O2 Flow Rate FiO2 07/01/16 07:10 142/77 07/01/16 06:00 96.9 109 18 96 Nasal Cannula 2.0 06/30/16 20:36 98 Laboratory Data 24H LABS Laboratory Tests 2 06/30/16 21:01: Anion Gap 9, B-Type Natriuretic Peptide 85.9, White Blood Count 11.2H, Red Blood Count 4.80, Hemoglobin 13.1, Hematocrit 40.3, Mean Corpuscular Volume 84.1 , Mean Corpuscular Hemoglobin 27.3, Mean Corpuscular Hemoglobin Concent 32.5, Red Cell Distribution Width 14.1, Platelet Count 253, Neutrophils (%) (Auto) 72.1H, Lymphocytes (%) (Auto) 17.4L, Monocytes (%) (Auto) 6.3H, Eosinophils (%) (Auto) 1.4, Basophils (%) (Auto) 0.4, Neutrophils # (Auto) 8.1H, Lymphocytes # ( Auto) 1.9, Monocytes # (Auto) 0.7, Eosinophils # (Auto) 0.2, Basophils # (Auto) 0.0, Blood Gas Bicarbonate Standard 25.4, Blood Urea Nitrogen 22H, Creatinine 1.66H, Sodium Level 144, Potassium Level 5.4H, Chloride Level 107, Carbon Dioxide Level 28, Calcium Level 8.5L, Total Creatine Kinase 94, Creatine Kinase MB 1.9, Creatine Kinase MB Relative Index 2.02, Glomerular Filtration Rate 32.7L , Large Unclassified Cells # 0.3, Large Unclassified Cells % 2.4, Troponin I 0.02, Venous Blood Base Excess 1.7, Venous Blood pH 7.382, Venous Blood Partial Pressure CO2 47.2, Venous Blood Partial Pressure O2 40.3, Venous Blood Total Carbon Dioxide 28.9H, Venous Blood HCO3 27.4H, Venous Blood Oxygen Saturation 73.3 07/01/16 06:26: Thyroid Stimulating Hormone (TSH) 0.642 CBC/BMP Laboratory Tests 06/30/16 21:01 Calcium Level 8.5 L, Total Creatine Kinase 94, Red Blood Count 4.80, Mean Corpuscular Volume 84.1, Mean Corpuscular Hemoglobin 27.3, Mean Corpuscular Hemoglobin Concent 32.5, Red Cell Distribution Width 14.1, Neutrophils (%) (Auto ) 72.1 H, Lymphocytes (%) (Auto) 17.4 L, Monocytes (%) (Auto) 6.3 H, Eosinophils (%) (Auto) 1.4, Basophils (%) (Auto) 0.4, Neutrophils # (Auto) 8.1 H , Lymphocytes # (Auto) 1.9, Monocytes # (Auto) 0.7, Eosinophils # (Auto) 0.2, Basophils # (Auto) 0.0 Microbiology Microbiology 06/30/16 Blood Culture, Received Pending 06/30/16 Respiratory Virus Panel (PCR) (BOB) - Final, Complete Attending Note Attending Note Patient seen and agree with treatment and plan as amended. JUDE LOJA PA-C Jul 01, 2016 10:58 Garret Alcaraz MD Jul 01, 2016 15:34
[2016-07-01 14:00] VITALS: BP 138/78
--- NOTE | 2016-07-01 15:26 | ECGEPIP ---
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
[2016-07-01] MEDS: BENZONATATE 100 MG CAP PO SCH ×2 (16:00→21:39)
[2016-07-01] MEDS ORDERED: HumaLOG INSULIN (NovoLOG) PER UNIT SC SCH (21:00)
[2016-07-01] MEDS ORDERED: ATORVASTATIN 20 MG TAB PO SCH (21:00)
[2016-07-01] MEDS: TUSSICAPS ER 10/8MG CAPSULE PO SCH (21:15)
[2016-07-01] MEDS ORDERED: ACETAMINOPHEN TAB 650MG DOSE (2X325MG) PO PRN (21:30)
[2016-07-01 22:00] VITALS: BP 153/67
[2016-07-02] MEDS: methylPREDNISolone INJ 125 MG/2 ML VIAL (J2930) IV SCH ×3 (00:05→16:05)
[2016-07-02 06:00] VITALS: BP 124/53
[2016-07-02 06:21] LABS: MEAN CORPUSCULAR HGB CONC 32.7 g/dl (32.0-36.5); MEAN CORPUSCULAR VOLUME 85.4 fl (80.0-96.0); RED CELL DISTRIBUTION WIDTH 14.4 % (11.5-14.5); WHITE BLOOD COUNT 14.2 K/mm3 (4.0-10.0)
[2016-07-02] MEDS: LEVOTHYROXINE 0.125 MG TAB (125 MCG) PO SCH (06:36)
[2016-07-02] MEDS: BENZONATATE 100 MG CAP PO SCH ×2 (06:37→16:05)
[2016-07-02 06:46] LABS: CALCIUM LEVEL 8.4 MG/DL (8.8-10.2); CREATININE FOR GFR 2.02 MG/DL (0.55-1.02); POTASSIUM SERUM 4.9 MEQ/L (3.5-5.1)
[2016-07-02] MEDS: LEVALBUTEROL 1.25 MG/0.5 ML CONCENTRATE NEB INH SCH ×3 (07:37→15:19)
[2016-07-02] MEDS: IPRATROPIUM 0.02% SOLN 0.5MG/2.5 ML NEB INH SCH ×3 (07:37→15:19)
[2016-07-02] MEDS: TUSSICAPS ER 10/8MG CAPSULE PO SCH (08:40)
[2016-07-02] MEDS: LEVEMIR (INSULIN DETEMIR) 1 UNITS/0.01ML SC SCH (08:40)
[2016-07-02] MEDS: HumaLOG INSULIN (NovoLOG) PER UNIT SC SCH ×2 (08:40→12:31)
[2016-07-02 08:41] VITALS: BP 156/70
[2016-07-02] MEDS: APIXABAN 5 MG TAB (ELIQUIS) PO SCH (08:41)
[2016-07-02] MEDS: OMEPRAZOLE 20 MG CAP PO SCH (08:41)
[2016-07-02] MEDS: MULTIVITAMINS/MINERALS THERAP 1 TAB PO SCH (08:41)
[2016-07-02] MEDS: ISOSORBIDE MON. (IMDUR) 60 MG XR TAB PO SCH (08:41)
--- NOTE | 2016-07-02 12:48 | IPNPDOC ---
Subjective Date Seen The patient was seen on 07/02/16. Subjective Chief Complaint/HPI Pt thinks she has had some improvement in the cough. She cont to have O2 on, which she doesn't wear at home. Has not been wearing her CPAP. General: Denies: Fatigue Constitutional: Denies: Chills, Fever ENT: Denies: Head Aches Pulmonary: Reports: Cough, Dyspnea Cardiovascular: Denies: Chest Pain, Palpitations Gastrointestinal: Denies: Diarrhea, Nausea, Vomiting Neurological: Denies: Weakness Psych: Reports: Mood Normal Objective Physical Examination General Exam: Positive: Alert, Cooperative ENT Exam: Positive: Mucous membr. moist/pink Neck Exam: Positive: Supple, Negative: JVD, Lymphadenopathy, thyromegaly Chest Exam: Positive: Normal air movement, Other (harsh cough), Rales (Fine fibrotic rales bilateral lung bases) Heart Exam: Positive: Normal S1, Normal S2, Tachycardic Abdomen Exam: Positive: Normal bowel sounds, Soft, Negative: Hepatospenomegaly, Tenderness Extremity Exam: Positive: Normal pulses, Negative: Clubbing, Cyanosis, Edema, Swelling, Tenderness Skin Exam: Positive: Nl turgor and temperature Neuro Exam: Positive: Normal Speech Psych Exam: Positive: Oriented x 3 Assessment /Plan Problems (1) Interstitial lung disease Status: Acute Problem Text: 07/02 - D3 Solumedrol 60 mg IV q8, will decreased dose slightly today. Spoke with Dr Whitehead who will review her case probably tomorrow to see if she has anything more to offer. LIkely assoc with Amiodorone, if pts have improvement in symptoms can take months to occur. Cont with nebs, tessalon , and Tussionex. Possibly d/c tomorrow. Attempt to wean O2 ordered. Nursing and pt aware. 07/01 - D2 Solumedrol 60 mg IV q8h, CT chest appears to have chronic changes, consider pulm consult, follows with Pulm as outpt, saw Yany about 2 w ago. 06/30 Patient appears to clinically improve with steroids Prescribed Solu-Medrol 60 mg IV every 8 hours Administer Xopenex as this is less likely to cause tachycardia Could consider consulting pulmonary during this hospitalization Will request pulmonary consult tomorrow. Will add tessalon perles for symptom reduction. (2) Leukocytosis Status: Acute Problem Text: 07/01 - WBC down from 14 to 11 today, afebrile. 06/30 Could possibly be due to reactivity The patient is tachycardic and hypertensive; this could possibly be secondary to progressive worsening of patient's cough and shortness of breath Appears less likely to be septic in nature Respiratory panel was negative and blood cultures are being monitored Monitor with CBC (3) Hyperkalemia Status: Acute Problem Text: 07/01- will obtain repeat BMP in AM. 06/30 Patient's potassium was 5.4 EKG on admission showed normal sinus rhythm Will obtain follow-up EKG to monitor for electrolyte derangements Monitor with BMP (4) HTN (hypertension) Status: Acute Problem Text: 07/01 - Imdur 60 mg - pressures consistently improved, monitor. 06/30 Ordered nitrates as this does appear to have a mortality benefit Could consider starting an angiotensin receptor zuly in the future (5) Systolic dysfunction Status: Chronic Problem Text: Deferred to outpatient providers for continued medical management (6) T2DM (type 2 diabetes mellitus) Status: Chronic Problem Text: Blood glucose 116 Will provide coverage with sliding scale insulin and fingersticks before meals and at bedtime Will also provide long-term coverage (7) CKD (chronic kidney disease) Status: Chronic Problem Text: 07/02 - Scr 2, baseline appears to be 1.8, monitor. 06/30 Creatinine of 1.66 Her creatinine does not appear to be too far from her apparent baseline Possibly secondary to diabetic nephropathy Monitor with daily BMP (8) Hypothyroidism (acquired) Status: Chronic Problem Text: Patient will be continued on her home dose of levothyroxine Will check a TSH Plan/VTE VTE Prophylaxis Ordered?: Yes (patient on Eliquis for paroxysmal atrial fibrillation) Plan Diet: Continue Current Activity: Continue Current Diagnostics: Check Labs, Repeat Labs in AM, Obtain Cultures, Repeat EKG Anticipated Discharge: Home VS, I&O, 24H, [facility] Vital Signs/I&O Vital Signs Date Time Temp Pulse Resp B/P Pulse Ox O2 Delivery O2 Flow Rate FiO2 07/02/16 08:41 156/70 07/02/16 08:40 Nasal Cannula 2.0 07/02/16 06:00 97.9 96 21 96 06/30/16 20:36 98 I&O- Last 24 Hours up to 6 AM 07/02/16 05:59 Intake Total 1080 ml Output Total 200 ml Balance 880 ml Laboratory Data 24H LABS Laboratory Tests 2 07/01/16 16:17: Bedside Glucose (Misc Panel) 325H 07/02/16 05:49: Anion Gap 10, Blood Urea Nitrogen 39#H, Creatinine 2.02H, Sodium Level 138, Potassium Level 4.9, Chloride Level 102, Carbon Dioxide Level 26, Calcium Level 8.4L, Glomerular Filtration Rate 26.0L CBC/BMP Laboratory Tests 07/02/16 05:49 Calcium Level 8.4 L, Red Blood Count 4.06, Mean Corpuscular Volume 85.4, Mean Corpuscular Hemoglobin 28.0, Mean Corpuscular Hemoglobin Concent 32.7, Red Cell Distribution Width 14.4 Microbiology Microbiology 06/30/16 Blood Culture - Preliminary, Resulted No growth after 24 hours . All specim... 06/30/16 Respiratory Virus Panel (PCR) (BOB) - Final, Complete JUDE LOJA PA-C Jul 02, 2016 12:48
[2016-07-02 14:00] VITALS: BP 143/74
[2016-07-02] MEDS ORDERED: TUSS1CAP5 PO (16:30)
[2016-07-02] MEDS ORDERED: IPRA2IN INH (16:30)
[2016-07-02] MEDS ORDERED: BENZ100C5 PO (16:30)
[2016-07-02] MEDS ORDERED: PRED20TA PO (16:42)
[2016-07-02] MEDS ORDERED: LEVA12INH INH (16:45)
--- NOTE | 2016-07-02 18:40 | ED PDOC ---
Provider Note DR DIAMOND FAXED FORMAL REPORT OF CT CHEST FOR FU MOHSENG Rylee Wilson MD Jul 02, 2016 18:40
--- NOTE | 2016-07-05 07:53 | DSES ---
DATE OF ADMISSION: 07/01/2016 DATE OF DISCHARGE: 07/02/2016 REASON FOR ADMISSION: The patient was admitted by hospitalist service on July 01 with complaint of dyspnea. She has chronic fibrotic lung disease with worsening cough and dyspnea. She also had a history of congestive heart failure and history of non-Hodgkin's lymphoma, paroxysmal atrial fibrillation, hypothyroidism, status post right parotid tumor surgery and left rotator cuff tear, left knee osteochondral defect and medial meniscus tear. She has had a dry cough since 2016. She had been seen in pulmonary office Dr. Slade and she had findings compatible with pulmonary fibrosis. She had gradual worsening dyspnea, came to the hospital for further evaluation. MEDICATIONS AT ADMISSION: Included: - Eliquis 5 mg twice daily - atorvastatin 40 mg daily - glipizide 5 mg the morning, 10 at night - insulin glargine 52 units daily - Humalog sliding scale as directed - Synthroid 125 mcg a day - omeprazole 40 mg a day - prednisone 5 mg as directed - spironolactone 50 mg daily ALLERGIES: SITAGLIPTIN, LATEX and LISINOPRIL. HOSPITAL COURSE: She was admitted to hospital and given Solu-Medrol, oxygenation status gradually improved. Chronic kidney disease was identified. This remained stable during hospital stay. At the time of discharge, chemistries, creatinine was 2.02. Arterial blood gas was showing pH 7.382, pCO2 of 47.02 and pO2 40.3, these were venous gases actually. Potassium was good at 4.9. Blood sugar during her stay ranged from 363-350 clearly not optimally controlled attributable believed to steroid use. At the time of discharge, she is going to be on: - Eliquis 5 mg twice daily - atorvastatin 40 mg daily - glipizide 5 mg twice daily - glargine 52 units daily - Humalog as directed per sliding scale by her primary care physician - levofloxacin at 25 mcg a day - Multivites one a day - omeprazole 40 mg daily - spironolactone 50 mg a day Also ordered was cough suppression drugs and prednisone 60 mg a day on a three times daily basis with subsequent taper as specified by her primary care doctor, below levalbuterol 1.25 mg four times daily as needed dyspnea, ipratropium bromide 500 mcg inhalation four times daily via nebs, both levalbuterol and ipratropium via nebs and benzonatate 200 mg by mouth every 8 hours as needed cough. Also prescribed was hydrocodone 5/325 one four times daily as needed cough and chlorpheniramine 4 mg by mouth four times daily as needed cough. These were substituted for Tussicaps which were not going to be covered by her insurance scheme and for which peralta payment was absurdly expensive so oral tablets were used as a substitute which should be able to provide comparable cough control since the pharmacologic content of the tablets is similar to the suspension. Activity will be as tolerated. She will continue oxygen. Followup with Dr. Slade in approximately 1 to 2 weeks. Call his office for further information on this issue. Followup with primary care physician in 1 week regarding diabetes management since her blood sugar control has worsened with use of steroids and she will require some adjustment most likely to her basal insulin and to her sliding scale coverage to improve her control. DISCHARGE DIAGNOSES: Pulmonary fibrosis exacerbation. Hypoxia secondary to pulmonary fibrosis. Gastroesophageal reflux disease (GERD). Hypertension. Hyperlipidemia. Atrial fibrillation with rapid ventricular response, improved. Chronic kidney disease stage III. Diabetes mellitus, type 2 with detention insulin use. Diet 2 grams sodium, carbohydrate controlled. Condition on discharge: improved Activity as tolerated. MTDD
== END 2016-07-02 18:22 | disposition home or self-care (01) | DRG 197 ==
LOC: M ED 20:40 → M ED INP 07-01 03:52 → M MSPAV 07-01 06:00
PROVIDERS: ADMIT Internal Medicine; ATTEND Family Medicine
DX: J84.9 Interstitial pulmonary disease, unspecified (principal); I50.22 Chronic systolic (congestive) heart failure; K21.9 Gastro-esophageal reflux disease without esophagitis; I12.9 Hypertensive chronic kidney disease with stage 1 through stage 4 chronic kidney disease, or unspecified chronic kidney disease; E78.5 Hyperlipidemia, unspecified; I48.0 Paroxysmal atrial fibrillation; N18.3 Chronic kidney disease, stage 3 (moderate); Z79.899 Other long term (current) drug therapy; Z79.52 Long term (current) use of systemic steroids; E03.9 Hypothyroidism, unspecified; E11.9 Type 2 diabetes mellitus without complications; M17.11 Unilateral primary osteoarthritis, right knee; G47.33 Obstructive sleep apnea (adult) (pediatric); E87.5 Hyperkalemia; D72.829 Elevated white blood cell count, unspecified

== ENCOUNTER 2016-07-26 16:25 | Inpatient (IN) | payer MEDICARE ==
[~2016-07-26] VITALS: Ht 154.9 cm; Wt 95.6 kg
[~2016-07-26 16:25] MED LIST changes: +BENZ100C5 PO; +GLIP5TAB8 PO; +INSUHUMDS SC; +IPRA2IN INH; +LEVA12INH INH; +OMEP40CA2 PO; +PRED20TA PO; +PRED5TA PO; +SPIR25TA2 PO; +SYNT125T PO; +TUSS1CAP5 PO
[2016-07-26] MEDS ORDERED: HYDR-3713 PO (16:41)
[2016-07-26] MEDS ORDERED: BENZ100C5 PO (16:41)
[2016-07-26] MEDS ORDERED: methylPREDNISolone INJ 125 MG/2 ML VIAL (J2930) IV ONE (17:45)
[2016-07-26] MEDS ORDERED: NS IV ONE (18:15)
[2016-07-26] MEDS ORDERED: CEFEPIME HCL 2 GM in D5W MINI-BAG PLUS 50 ML IV ONE (18:15)
[2016-07-26] MEDS ORDERED: DILUENT IV ONE (18:15)
--- NOTE | 2016-07-26 18:52 | REP ---
PORTABLE CHEST, ONE VIEW: HISTORY: Cough. COMPARISON: 06/19/2016 A minimal increase in interstitial markings is present in the lungs consistent with chronic interstitial fibrosis. The heart is upper limits of normal in size. The pulmonary vasculature is normal in appearance. An Infusaport catheter is present in the superior vena cava. IMPRESSION: Chronic interstitial fibrosis. Signed by Sulaiman Sanches MD 07/26/2016 07:16 P
[2016-07-26] MEDS ORDERED: ALBUTEROL SULFATE 2.5 MG/0.5 ML INH NEB SOLN NEB PRN (19:30)
[2016-07-26] MEDS ORDERED: BISACODYL 10 MG SUPP PR PRN (19:30)
[2016-07-26] MEDS ORDERED: ONDANSETRON 4MG/2ML VIAL (J2405) IV PRN (19:30)
[2016-07-26] MEDS ORDERED: NS 1,000 ML IV ONE (20:00)
[2016-07-26] MEDS ORDERED: IPRATROPIUM 0.5MG/ALBUTEROL 2.5MG INH SOL UD 3ML (DUONEB)(J7620) NEB SCH (20:00)
[2016-07-26] MEDS ORDERED: GLUCOSE 4 GM CHEW TABLET PO PRN (20:15)
[2016-07-26] MEDS ORDERED: DEXTROSE 50% 50 ML SYRINGE IV PRN (20:15)
[2016-07-26] MEDS ORDERED: GLUCAGON FOR INJ 1 MG VIAL (J1610) SC PRN (20:15)
[2016-07-26] MEDS ORDERED: NS 1,000 ML IV SCH (20:15)
[2016-07-26] MEDS ORDERED: IPRA2IN INH (20:27)
[2016-07-26] MEDS ORDERED: PRED10TA PO (20:27)
[2016-07-26] MEDS ORDERED: NORC1TAB4 PO (20:27)
[2016-07-26] MEDS ORDERED: LEVA12INH INH (20:27)
[2016-07-26] MEDS ORDERED: CODEINE SULFATE 30 MG TAB PO PRN (20:45)
[2016-07-26 21:12] VITALS: BP 137/62
[2016-07-26] MEDS: HumaLOG INSULIN (NovoLOG) PER UNIT SC SCH (22:29)
[2016-07-26] MEDS: BENZONATATE 100 MG CAP PO SCH (22:41)
[2016-07-26] MEDS: ATORVASTATIN 20 MG TAB PO SCH (22:41)
[2016-07-26] MEDS: OMEPRAZOLE 20 MG CAP PO SCH (22:41)
[2016-07-26] MEDS: APIXABAN 5 MG TAB (ELIQUIS) PO SCH (22:41)
[2016-07-26] MEDS: LEVEMIR (INSULIN DETEMIR) 1 UNITS/0.01ML SC SCH (22:42)
[2016-07-26] MEDS: SENOKOT S TAB PO SCH (22:42)
[2016-07-27] MEDS: methylPREDNISolone INJ 40 MG/1 ML VIAL (J2920) IV SCH ×5 (00:23→23:50)
[2016-07-27] MEDS: IPRATROPIUM 0.5MG/ALBUTEROL 2.5MG INH SOL UD 3ML (DUONEB)(J7620) NEB SCH ×4 (02:00→19:41)
[2016-07-27] MEDS: LEVOTHYROXINE 0.125 MG TAB (125 MCG) PO SCH (05:44)
[2016-07-27] MEDS: BENZONATATE 100 MG CAP PO SCH ×3 (05:44→21:24)
[2016-07-27 06:00] VITALS: BP 130/58
--- NOTE | 2016-07-27 07:04 | HPE ---
DATE OF ADMISSION: 07/26/2016 PRIMARY CARE PROVIDER: Guadalupe hPam CHIEF COMPLAINT: Increasing cough and shortness of breath for one week. PAST MEDICAL HISTORY: 1. Pulmonary fibrosis on chronic steroids 30 mg per day. 2. Congestive systolic heart failure with ejection fraction of 30-35%. 3. History of non Hodgkin's lymphoma. 4. Paroxysmal atrial fibrillation. 5. Hypothyroidism. 6. Hypertension. 7. Diabetes. 8. Hyperlipidemia. 9. Morbid obesity. 10. Pulmonary hypertension. 11. Chronic kidney disease (CKD) Stage III to IV. 12. Gastroesophageal reflux disease. 13. Obstructive sleep apnea (DEVEN) on CPAP. 14. Mitral regurgitation. 15. Tricuspid regurgitation. HISTORY OF PRESENT ILLNESS: This is a 71-year-old female diagnosed with pulmonary fibrosis thought to be related to fci amiodarone use about one year ago who has been following with Dr. Slade from pulmonology and was recently admitted in June for pulmonary fibrosis exacerbation and hypoxia and was discharged home with prednisone 60 mg per day, which did seem to help. 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 However, the patient's breathing and coughing has not improved and this morning she noted her oxygenation to be 72% in room air at home. Her heart rate was about 140 to 150 at home. She was extremely short of breath and so she came to the emergency room for evaluation. In the emergency department (ED) on presentation, the patient was found to be hypoxic at 85% in room air, tachycardic to about 140 per minute and electrocardiogram (EKG) showed sinus tachycardia. The patient's laboratory data was significant for WBC count of 13.2 and a lactic acid of 5.3. The patient received methylprednisone and nebulizers in the ED with some improvement in her breathing and her tachycardia. However, she continued to have persistent cough with elevated lactic acid level. The patient was admitted to rule out sepsis. The patient was given one dose of Cefepime in the emergency room. Cultures were sent. PAST SURGICAL HISTORY: 1. Parathyroid surgery. 2. Cataracts. 3. Macular degeneration with retinal surgery. 4. Umbilical hernia repair. 5. Left inguinal hernia repair. 6. Left rotator cuff repair. 7. Left meniscus repair. 8. Cholecystectomy. 9. Right total knee replacement. 10. Right parotidectomy. 11. Cardiac ablation times three in March 2016. 12. Colonoscopy in 2006. 13. Tubal ligation in 1973. 14. Excisional biopsy of lymph node in 2011. 15. Left carpal tunnel release in 2014. ALLERGIES: - LISINOPRIL - JANUVIA - LATEX FAMILY HISTORY: Father with history of coronary artery disease, hypertension and diabetes. mother who had history of hypertension, diabetes and hypothyroid. All siblings have diabetes. SOCIAL HISTORY: Never a smoker. No history of alcohol abuse or drug abuse. HOME MEDICATIONS: - Lantus 52 units daily - Lispro per sliding scale - glipizide 10 mg twice a day - Eliquis 5 mg twice a day - atorvastatin 40 mg at bedtime - benzonatate 200 mg every 8 hours as needed cough - Xopenex 1.25 mg inhalation four times a day - ipratropium 0.5 mg inhalation four times a day - Synthroid 125 mcg by mouth daily - multivitamins one tablet daily - omeprazole 40 mg daily - prednisone 30 mg daily - spironolactone 50 mg daily - acetaminophen/hydrocodone 5/325 one tablet by mouth every 6 hours as needed pain REVIEW OF SYSTEMS: Patient complains of persistent cough throughout the day and night. Extreme shortness of breath for three days. Denies any fever or chills. Denies any nausea, vomiting or diarrhea. Does complain of some generalized swelling since being on steroids for the past one month. Denies any chest pain or palpitations. PHYSICAL EXAMINATION: VITAL SIGNS: Blood pressure 123/79. Pulse 126. Respiratory rate 20. Pulse oximetry 92% with 4 liters nasal cannula. GENERAL: Patient awake, alert and oriented times three sitting up in bed in mild distress. HEENT: Normocephalic, atraumatic. Moist mucous membranes. Anicteric eyes. CHEST: Bilateral basilar crackles. Distant breath sounds. CARDIOVASCULAR: S1, S2, regular, tachycardic. There is a systolic murmur present. ABDOMEN: Obese. Soft. Nontender. Bowel sounds present. EXTREMITIES: Trace bipedal edema. LABORATORY DATA: WBC 13.2, hemoglobin 13.9, and platelets 206. Sodium 136, potassium 4.6, chloride 101, bicarbonate 22, BUN 26, creatinine 1.88, glucose 175, lactate 5.3, calcium 8.4, BNP 103, CRP 6.09. Amylase 58. TSH 0.846. INR 1.52. Blood gas - pH 7.47, pCO2 31, pO2 61. Chest x-ray shows chronic interstitial fibrosis. ASSESSMENT AND PLAN: This is a 71-year-old female admitted for exacerbation of pulmonary fibrosis and lactic acidosis to be ruled out for possible sepsis. 1. For pulmonary fibrosis exacerbation, will start the patient on high dose methylprednisone 40 mg every 6 hours. Will continue with nebulizers. For persistent cough, will give the patient codeine and dextromethorphan and benzonatate. Will consider pulmonary consult if no improvement. 2. Hypoxia due to pulmonary fibrosis exacerbation. Will continue with oxygen supplementation. 3. Lactic acidosis. Rule out sepsis. The patient does have mildly elevated white count; however, this could be attributed to being on chronic steroids. Source of infection could be from lungs as the patient's main symptoms are lung related. Will empirically start the patient on Cefepime and azithromycin. Blood cultures have been sent. Will add a sputum culture if there is any productive cough. However, lactic acidosis could be attributed also to increased work of breathing from exacerbation of pulmonary fibrosis along with use of albuterol. Will continue with IV fluids as per protocol. Recheck lactic acid as per protocol. 4. Obstructive sleep apnea. Will continue with CPAP at home settings. 5. Diabetes. Will increase dose of long acting insulin in view of expected rise in sugars with high dose of steroids. Will continue with Lispro sliding scale and glipizide. 6. Atrial fibrillation. The patient at present is in sinus tachycardia. Will continue with Eliquis. 7. Hyperlipidemia. Will continue with atorvastatin. 8. Hypothyroid. Will continue with Synthroid. 9. Gastroesophageal reflux disease. Will continue with omeprazole. 10. 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 At present, in remission. 11. Systolic congestive heart failure with an ejection fraction (EF) of 30-35%. Will use fluid judiciously. At present, does not seem to be in exacerbation. 12. Chronic kidney disease Stage III to IV. Creatinine at baseline. Will continue to monitor. 13. Deep vein thrombosis prophylaxis has been ordered. 14. Gastrointestinal prophylaxis has been ordered.
[2016-07-27] MEDS: HumaLOG INSULIN (NovoLOG) PER UNIT SC SCH ×4 (08:23→20:52)
[2016-07-27] MEDS: CEFEPIME HCL 1 GM in D5W MINI-BAG PLUS 50 ML IV SCH ×2 (08:23→20:53)
[2016-07-27] MEDS: LEVEMIR (INSULIN DETEMIR) 1 UNITS/0.01ML SC SCH ×2 (08:23→20:51)
[2016-07-27] MEDS: glipiZIDE 10 MG TAB PO SCH ×2 (08:24→17:56)
[2016-07-27] MEDS: SENOKOT S TAB PO SCH ×2 (08:24→20:50)
[2016-07-27] MEDS: AZITHROMYCIN 250 MG TAB PO SCH (08:24)
[2016-07-27] MEDS: APIXABAN 5 MG TAB (ELIQUIS) PO SCH ×2 (08:24→20:50)
[2016-07-27] MEDS: OMEPRAZOLE 20 MG CAP PO SCH ×2 (08:24→20:50)
--- NOTE | 2016-07-27 11:42 | IPNPDOC ---
Subjective Date Seen The patient was seen on 07/27/16. Subjective Chief Complaint/HPI The patient is a 71-year-old female admitted with a reason for visit of Pulmonary Fibrosis. Events since last encounter Pt this morning cont to c/o increased SOB, cough, GALLEGOS. Tires easily while getting herself washed this morning. General: Reports: Fatigue Constitutional: Denies: Chills, Fever ENT: Denies: Head Aches Pulmonary: Reports: Cough, Dyspnea Cardiovascular: Denies: Chest Pain, Palpitations Gastrointestinal: Denies: Diarrhea, Nausea, Vomiting Neurological: Reports: Weakness Psych: Reports: Mood Normal Objective Physical Examination General Exam: Positive: Alert, No Acute Distress ENT Exam: Positive: Mucous membr. moist/pink Neck Exam: Positive: Supple Chest Exam: Positive: Diminished (distant), Other, Negative: Normal air movement Heart Exam: Positive: Normal S1, Normal S2, Rate Normal Abdomen Exam: Positive: Normal bowel sounds, Soft, Negative: Tenderness Extremity Exam: Negative: Edema Psych Exam: Positive: Mental status NL, Mood NL, Oriented x 3 Assessment /Plan Problems (1) Pulmonary fibrosis Status: Acute Response to Treatment: Stable Problem Specific Plan: Monitor Clinically Problem Text: Has been started on Solumedrol 40 mg IV q6h, nebs, Azithromycin 500 mg po daily, cefepime IV daily, monitor resp status, consult pulm if her symptoms fail to improve. She has been quite slow to recover in the past. (2) Hypoxia Status: Acute Response to Treatment: Stable Problem Specific Plan: Monitor Clinically Problem Text: See above. (3) CKD (chronic kidney disease) stage 3, GFR 30-59 ml/min Status: Chronic Response to Treatment: Stable Problem Specific Plan: Monitor Clinically Problem Text: Scr at baseline. (4) Lactic acid acidosis Status: Resolved Problem Specific Plan: Monitor Clinically Problem Text: Elevated lactic acid on admission, has been followed now normalized (5) DEVEN on CPAP Status: Chronic Response to Treatment: Stable Problem Specific Plan: Monitor Clinically Problem Text: Enc use of home device. (6) T2DM (type 2 diabetes mellitus) Status: Chronic Response to Treatment: Stable Problem Specific Plan: Monitor Clinically Problem Text: Cont with home insulin dose. Monitor FSBS while on Steroids. (7) A-fib Status: Chronic Response to Treatment: Stable Problem Specific Plan: Monitor Clinically Problem Text: Cont Pradaxa, she does not currently have any rate controlling medicatiosn on her med list in hospital or as an outpt. She has been on Amiodorone which is felt to have contributed to her worsening lung condition and this has been d/c within the last cpl months. Monitor her rate, if this remains elevated will consider adding Lopressor. Plan/VTE VTE Prophylaxis Ordered?: Yes Plan/Urinary Catheter Reason for insertion/continuin: Critical Pt monitoring VS, I&O, 24H, Fishbone Vital Signs/I&O Vital Signs Date Time Temp Pulse Resp B/P Pulse Ox O2 Delivery O2 Flow Rate FiO2 07/27/16 06:00 97.1 100 20 130/58 92 Nasal Cannula 0.5 I&O- Last 24 Hours up to 6 AM 07/27/16 05:59 Intake Total 1155 ml Output Total 0 ml Balance 1155 ml Laboratory Data 24H LABS Laboratory Tests 2 07/26/16 16:46: Activated Partial Thromboplast Time 27.5, Amylase Level 58, Anion Gap 13, B- Type Natriuretic Peptide 103H, White Blood Count 13.2H, Red Blood Count 5.19, Hemoglobin 13.9, Hematocrit 42.8, Mean Corpuscular Volume 82.5, Mean Corpuscular Hemoglobin 26.8L, Mean Corpuscular Hemoglobin Concent 32.5, Red Cell Distribution Width 15.1H, Platelet Count 206, Neutrophils (%) (Auto) 86.1H , Lymphocytes (%) (Auto) 11.1L, Monocytes (%) (Auto) 2.0, Eosinophils (%) (Auto ) 0.2, Basophils (%) (Auto) 0.2, Neutrophils # (Auto) 11.4H, Lymphocytes # (Auto ) 1.5, Monocytes # (Auto) 0.3, Eosinophils # (Auto) 0.0, Basophils # (Auto) 0.0 , C-Reactive Protein, Quantitative 6.09H, Blood Urea Nitrogen 26H, Creatinine 1.88H, Sodium Level 136, Potassium Level 4.6, Chloride Level 101, Carbon Dioxide Level 22, Calcium Level 8.4L, Total Creatine Kinase 50, Creatine Kinase MB 2.0, Creatine Kinase MB Relative Index 4.00, Glomerular Filtration Rate 28.2L , Lactic Acid Level 5.3*H, Large Unclassified Cells # 0.1, Large Unclassified Cells % 0.4, Prothromb Time International Ratio 1.52, Prothrombin Time 18.4H, Thyroid Stimulating Hormone (TSH) 0.846, Troponin I 0.04 07/26/16 17:52: Arterial Blood pH 7.479H, Arterial Blood Partial Pressure CO2 31.0L, Arterial Blood Partial Pressure O2 61.2L, Arterial Blood Total CO2 23.5, Arterial Blood HCO3 22.5, Arterial Blood Base Excess 0.0, Arterial Blood Oxygen Saturation 92.9L, Blood Gas Bicarbonate Standard 24.3 07/26/16 22:17: Lactic Acid Followup at 4 Hours 2.9*H 07/26/16 22:40: Bedside Glucose (Misc Panel) 241H 07/27/16 01:58: Lactic Acid Level 1.4 07/27/16 06:00: Anion Gap 8, White Blood Count 9.5, Red Blood Count 4.60, Hemoglobin 12.3, Hematocrit 37.8, Mean Corpuscular Volume 82.1, Mean Corpuscular Hemoglobin 26.8L , Mean Corpuscular Hemoglobin Concent 32.6, Red Cell Distribution Width 15.0H, Platelet Count 201, Neutrophils (%) (Auto) 86.5H, Lymphocytes (%) (Auto) 10.8L, Monocytes (%) (Auto) 2.0, Eosinophils (%) (Auto) 0.3, Basophils (%) (Auto) 0.1, Neutrophils # (Auto) 8.2H, Lymphocytes # (Auto) 1.1L, Monocytes # (Auto) 0.2, Eosinophils # (Auto) 0.0, Basophils # (Auto) 0.0, Blood Urea Nitrogen 28H, Creatinine 1.64H, Sodium Level 139, Potassium Level 4.7, Chloride Level 107, Carbon Dioxide Level 24, Calcium Level 8.1L, Glomerular Filtration Rate 33.1L, Large Unclassified Cells # 0.0, Large Unclassified Cells % 0.4 CBC/BMP Laboratory Tests 07/26/16 16:46 Calcium Level 8.4 L, Total Creatine Kinase 50, Red Blood Count 5.19, Mean Corpuscular Volume 82.5, Mean Corpuscular Hemoglobin 26.8 L, Mean Corpuscular Hemoglobin Concent 32.5, Red Cell Distribution Width 15.1 H, Neutrophils (%) ( Auto) 86.1 H, Lymphocytes (%) (Auto) 11.1 L, Monocytes (%) (Auto) 2.0, Eosinophils (%) (Auto) 0.2, Basophils (%) (Auto) 0.2, Neutrophils # (Auto) 11.4 H, Lymphocytes # (Auto) 1.5, Monocytes # (Auto) 0.3, Eosinophils # (Auto) 0.0, Basophils # (Auto) 0.0 07/27/16 06:00 Calcium Level 8.1 L, Red Blood Count 4.60, Mean Corpuscular Volume 82.1, Mean Corpuscular Hemoglobin 26.8 L, Mean Corpuscular Hemoglobin Concent 32.6, Red Cell Distribution Width 15.0 H, Neutrophils (%) (Auto) 86.5 H, Lymphocytes (%) ( Auto) 10.8 L, Monocytes (%) (Auto) 2.0, Eosinophils (%) (Auto) 0.3, Basophils (% ) (Auto) 0.1, Neutrophils # (Auto) 8.2 H, Lymphocytes # (Auto) 1.1 L, Monocytes # (Auto) 0.2, Eosinophils # (Auto) 0.0, Basophils # (Auto) 0.0 Microbiology Microbiology 07/26/16 Blood Culture, Received Pending 07/26/16 Blood Culture, Received Pending 07/26/16 Influenza Virus Type A Antigen - Final, Complete 07/26/16 Influenza Virus Type B Antigen - Final, Complete JUDE LOJA PA-C Jul 27, 2016 11:42
[2016-07-27 14:00] VITALS: BP 180/82
[2016-07-27 15:00] VITALS: BP 148/76
--- NOTE | 2016-07-27 18:26 | ECGEPIP ---
Stationary ECG Study 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
[2016-07-27] MEDS: ATORVASTATIN 20 MG TAB PO SCH (20:50)
[2016-07-27 22:00] VITALS: BP 147/77
[2016-07-28] MEDS: IPRATROPIUM 0.5MG/ALBUTEROL 2.5MG INH SOL UD 3ML (DUONEB)(J7620) NEB SCH ×4 (01:44→19:34)
[2016-07-28 06:00] VITALS: BP 158/71
[2016-07-28] MEDS: LEVOTHYROXINE 0.125 MG TAB (125 MCG) PO SCH (06:14)
[2016-07-28] MEDS: BENZONATATE 100 MG CAP PO SCH ×3 (06:14→21:12)
[2016-07-28] MEDS: methylPREDNISolone INJ 40 MG/1 ML VIAL (J2920) IV SCH ×3 (06:14→21:12)
[2016-07-28] MEDS: CEFEPIME HCL 1 GM in D5W MINI-BAG PLUS 50 ML IV SCH ×2 (07:45→19:30)
[2016-07-28] MEDS: glipiZIDE 10 MG TAB PO SCH ×2 (07:46→18:16)
[2016-07-28] MEDS: HumaLOG INSULIN (NovoLOG) PER UNIT SC SCH ×4 (07:47→20:53)
[2016-07-28] MEDS: APIXABAN 5 MG TAB (ELIQUIS) PO SCH ×2 (08:39→21:12)
[2016-07-28] MEDS: SENOKOT S TAB PO SCH ×2 (08:39→21:14)
[2016-07-28] MEDS: OMEPRAZOLE 20 MG CAP PO SCH ×2 (08:39→21:13)
[2016-07-28] MEDS: AZITHROMYCIN 250 MG TAB PO SCH (08:39)
[2016-07-28] MEDS: LEVEMIR (INSULIN DETEMIR) 1 UNITS/0.01ML SC SCH ×2 (08:40→21:13)
[2016-07-28] MEDS: DEXTROMETHORPHAN 60MG/10ML SUSP 90ML BTL(DELSYM) PO PRN ×2 (08:40→21:13)
--- NOTE | 2016-07-28 10:59 | IPNPDOC ---
Subjective Date Seen The patient was seen on 07/28/16. Subjective Chief Complaint/HPI The patient is a 71-year-old female admitted with a reason for visit of Pulmonary Fibrosis. Events since last encounter Cont to c/o SOB with exertion as well as cough mostly with exertion. She is able to talk for a long time without becoming SOB. General: Denies: Fatigue Constitutional: Denies: Chills, Fever ENT: Denies: Head Aches Pulmonary: Reports: Cough, Dyspnea Cardiovascular: Denies: Chest Pain, Palpitations Gastrointestinal: Denies: Nausea, Vomiting Neurological: Reports: Weakness Psych: Reports: Mood Normal Objective Physical Examination General Exam: Positive: Alert, No Acute Distress ENT Exam: Positive: Mucous membr. moist/pink Neck Exam: Positive: Supple Chest Exam: Positive: Diminished (distant, clear), Other, Negative: Normal air movement Heart Exam: Positive: Normal S1, Normal S2, Rate Normal Abdomen Exam: Positive: Normal bowel sounds, Soft, Negative: Tenderness Extremity Exam: Negative: Edema Psych Exam: Positive: Mental status NL, Mood NL, Oriented x 3 Assessment /Plan Problems (1) Pulmonary fibrosis Status: Acute Response to Treatment: Stable Problem Specific Plan: Monitor Clinically Problem Text: 07/28 - Resp status has improved some, she is certainly able to told without becoming winded. Decreased solumedrol from 40 mg q6 to q6h, Cont with Azithro D2, Cefepime D2. 07/27 Has been started on Solumedrol 40 mg IV q6h, nebs, Azithromycin 500 mg po daily, cefepime IV daily, monitor resp status, consult pulm if her symptoms fail to improve. She has been quite slow to recover in the past. (2) Hypoxia Status: Acute Response to Treatment: Stable Problem Specific Plan: Monitor Clinically Problem Text: See above. (3) CKD (chronic kidney disease) stage 3, GFR 30-59 ml/min Status: Chronic Response to Treatment: Stable Problem Specific Plan: Monitor Clinically Problem Text: Scr at baseline. (4) Lactic acid acidosis Status: Resolved Problem Specific Plan: Monitor Clinically Problem Text: Elevated lactic acid on admission, has been followed now normalized (5) DEVEN on CPAP Status: Chronic Response to Treatment: Stable Problem Specific Plan: Monitor Clinically Problem Text: Enc use of home device. (6) T2DM (type 2 diabetes mellitus) Status: Chronic Response to Treatment: Stable Problem Specific Plan: Monitor Clinically Problem Text: Cont with home insulin dose. Monitor FSBS while on Steroids. (7) A-fib Status: Chronic Response to Treatment: Stable Problem Specific Plan: Monitor Clinically Problem Text: Cont Pradaxa, she does not currently have any rate controlling medicatiosn on her med list in hospital or as an outpt. She has been on Amiodorone which is felt to have contributed to her worsening lung condition and this has been d/c within the last cpl months. Monitor her rate, if this remains elevated will consider adding Lopressor. Plan/VTE VTE Prophylaxis Ordered?: Yes Plan/Urinary Catheter Reason for insertion/continuin: Critical Pt monitoring VS, I&O, 24H, Fishbone Vital Signs/I&O Vital Signs Date Time Temp Pulse Resp B/P Pulse Ox O2 Delivery O2 Flow Rate FiO2 07/28/16 06:00 97.2 92 18 158/71 95 Nasal Cannula 2.0 I&O- Last 24 Hours up to 6 AM 07/28/16 06:00 Intake Total 1250 ml Output Total 825 ml Balance 425 ml Laboratory Data 24H LABS Laboratory Tests 2 07/27/16 11:41: Bedside Glucose (Misc Panel) 398H 07/27/16 17:10: Bedside Glucose (Misc Panel) 234H 07/28/16 06:27: Anion Gap 9, White Blood Count 14.8H, Red Blood Count 4.70, Hemoglobin 12.5, Hematocrit 38.4, Mean Corpuscular Volume 81.5, Mean Corpuscular Hemoglobin 26.6L , Mean Corpuscular Hemoglobin Concent 32.6, Red Cell Distribution Width 15.1H, Platelet Count 240, Neutrophils (%) (Auto) 89.1H, Lymphocytes (%) (Auto) 6.4L, Monocytes (%) (Auto) 3.7, Eosinophils (%) (Auto) 0.1, Basophils (%) (Auto) 0.1, Neutrophils # (Auto) 13.2H, Lymphocytes # (Auto) 1.0L, Monocytes # (Auto) 0.6, Eosinophils # (Auto) 0.0, Basophils # (Auto) 0.0, Blood Urea Nitrogen 34H, Creatinine 1.67H, Sodium Level 139, Potassium Level 4.5, Chloride Level 108H, Carbon Dioxide Level 22, Calcium Level 8.6L, Glomerular Filtration Rate 32.4L, Large Unclassified Cells # 0.1, Large Unclassified Cells % 0.5 CBC/BMP Laboratory Tests 07/28/16 06:27 Calcium Level 8.6 L, Red Blood Count 4.70, Mean Corpuscular Volume 81.5, Mean Corpuscular Hemoglobin 26.6 L, Mean Corpuscular Hemoglobin Concent 32.6, Red Cell Distribution Width 15.1 H, Neutrophils (%) (Auto) 89.1 H, Lymphocytes (%) ( Auto) 6.4 L, Monocytes (%) (Auto) 3.7, Eosinophils (%) (Auto) 0.1, Basophils (% ) (Auto) 0.1, Neutrophils # (Auto) 13.2 H, Lymphocytes # (Auto) 1.0 L, Monocytes # (Auto) 0.6, Eosinophils # (Auto) 0.0, Basophils # (Auto) 0.0 Microbiology Microbiology 07/26/16 Blood Culture - Preliminary, Resulted No growth after 24 hours . All specim... 07/26/16 Blood Culture - Preliminary, Resulted No growth after 24 hours . All specim... 07/26/16 Influenza Virus Type A Antigen - Final, Complete 07/26/16 Influenza Virus Type B Antigen - Final, Complete JUDE LOJA PA-C Jul 28, 2016 10:59
[2016-07-28] MEDS: ATORVASTATIN 20 MG TAB PO SCH (21:12)
[2016-07-28 22:00] VITALS: BP 132/71
[2016-07-29] MEDS: IPRATROPIUM 0.5MG/ALBUTEROL 2.5MG INH SOL UD 3ML (DUONEB)(J7620) NEB SCH ×4 (01:32→19:31)
[2016-07-29] MEDS: methylPREDNISolone INJ 40 MG/1 ML VIAL (J2920) IV SCH (05:48)
[2016-07-29] MEDS: LEVOTHYROXINE 0.125 MG TAB (125 MCG) PO SCH (05:49)
[2016-07-29] MEDS: BENZONATATE 100 MG CAP PO SCH ×3 (05:49→21:42)
[2016-07-29 06:00] VITALS: BP 128/58
[2016-07-29] MEDS: glipiZIDE 10 MG TAB PO SCH ×2 (08:06→16:52)
[2016-07-29] MEDS: LEVEMIR (INSULIN DETEMIR) 1 UNITS/0.01ML SC SCH ×2 (08:06→21:42)
[2016-07-29] MEDS: CEFEPIME HCL 1 GM in D5W MINI-BAG PLUS 50 ML IV SCH (08:06)
[2016-07-29] MEDS: AZITHROMYCIN 250 MG TAB PO SCH (08:06)
[2016-07-29] MEDS: HumaLOG INSULIN (NovoLOG) PER UNIT SC SCH ×4 (08:06→21:43)
[2016-07-29] MEDS: OMEPRAZOLE 20 MG CAP PO SCH ×2 (08:06→21:41)
[2016-07-29] MEDS: APIXABAN 5 MG TAB (ELIQUIS) PO SCH ×2 (08:06→21:42)
[2016-07-29] MEDS: SENOKOT S TAB PO SCH ×2 (08:07→21:42)
[2016-07-29 14:00] VITALS: BP 153/86
[2016-07-29] MEDS: predniSONE 20 MG TAB PO SCH (14:20)
--- NOTE | 2016-07-29 16:22 | IPNPDOC ---
Subjective Date Seen The patient was seen on 07/29/16. Subjective Chief Complaint/HPI The patient is a 71-year-old female admitted with a reason for visit of Pulmonary Fibrosis. Events since last encounter Patient doing much better on Solu-Medrol. She has been breathing well off of oxygen today, although still having shortness of breath with any exertion. She denies any orthopnea, chest pain, or chest pressure. Nursing reports occasional racing heart after nebulization treatments. Constitutional: Denies: Chills, Fever, Malaise Pulmonary: Reports: Cough, Denies: Dyspnea, Pleuritic Chest Pain Cardiovascular: Denies: Chest Pain, Orthopnea, Palpitations Gastrointestinal: Denies: Abdominal Pain, Constipation, Diarrhea, Nausea, Vomiting Other systems 10 point review systems otherwise negative Objective Physical Examination General Exam: Positive: Alert, No Acute Distress ENT Exam: Positive: Mucous membr. moist/pink Neck Exam: Positive: Supple Chest Exam: Positive: Diminished (distant, clear), Negative: Normal air movement, Rales, Rhonchi, Wheezing Heart Exam: Positive: Murmurs (1/6 CATERINA), Normal S1, Normal S2, Rate Normal Telemetry: Positive: No significant arrhythmia Abdomen Exam: Positive: Normal bowel sounds, Soft, Negative: Tenderness Extremity Exam: Negative: Edema Psych Exam: Positive: Mental status NL, Mood NL, Oriented x 3 Assessment /Plan Problems (1) Pulmonary fibrosis Status: Acute Response to Treatment: Stable Problem Specific Plan: Monitor Clinically Problem Text: Patient is currently on day 3 of azithromycin and cefepime. This was started in the ER due to concern for sepsis, and then continued. Patient feels that she has improved markedly on antibiotics and Solu-Medrol. There is no focal consolidation on chest x-ray, and patient has no history of COPD, so antibiotics of doubtful significance. - Transition to by mouth prednisone 60 mg daily - Transition to by mouth antibiotics; will finish out 5 day course, as her symptoms are somewhat confounded at this point; due to GFR, patient will likely need one additional dose (2) Hypoxia Status: Acute Response to Treatment: Stable Problem Specific Plan: Monitor Clinically Problem Text: See above. (3) CKD (chronic kidney disease) stage 3, GFR 30-59 ml/min Status: Chronic Response to Treatment: Stable Problem Specific Plan: Monitor Clinically Problem Text: Scr at baseline. (4) Lactic acid acidosis Status: Resolved Problem Specific Plan: Monitor Clinically Problem Text: Elevated lactic acid on admission, has been followed now normalized (5) DEVEN on CPAP Status: Chronic Response to Treatment: Stable Problem Specific Plan: Monitor Clinically Problem Text: Patient reports compliance of her CPAP (6) T2DM (type 2 diabetes mellitus) Status: Chronic Response to Treatment: Stable Problem Specific Plan: Monitor Clinically Problem Text: Cont with home insulin dose. Monitor FSBS while on Steroids. (7) A-fib Status: Chronic Response to Treatment: Stable Problem Specific Plan: Monitor Clinically Problem Text: Cont Pradaxa, she does not currently have any rate controlling medication her med list in hospital or as an outpt. She has been on Amiodorone which is felt to have contributed to her worsening lung condition and this has been d/c within the last cpl months. Rate was elevated on exam today, so EKG was performed to ensure patient was not in A. fib with RVR. However, EKG shows normal sinus rhythm. Plan/VTE VTE Prophylaxis Ordered?: Yes Plan/Urinary Catheter Reason for insertion/continuin: Critical Pt monitoring Disposition Plan for discharge tomorrow if doing well on oral prednisone VS, I&O, 24H, [facility] Vital Signs/I&O Vital Signs Date Time Temp Pulse Resp B/P Pulse Ox O2 Delivery O2 Flow Rate FiO2 07/29/16 14:00 98.1 115 18 153/86 96 Room Air 07/28/16 22:00 2.0 I&O- Last 24 Hours up to 6 AM 07/29/16 06:00 Intake Total 1740 ml Output Total 1400 ml Balance 340 ml Laboratory Data 24H LABS Laboratory Tests 2 07/28/16 16:35: Bedside Glucose (Misc Panel) 128H 07/28/16 20:43: Bedside Glucose (Misc Panel) 234H 07/29/16 05:28: Anion Gap 10, White Blood Count 11.4H, Red Blood Count 4.29, Hemoglobin 11.6L, Hematocrit 35.7L, Mean Corpuscular Volume 83.3, Mean Corpuscular Hemoglobin 27.1 , Mean Corpuscular Hemoglobin Concent 32.6, Red Cell Distribution Width 15.2H, Platelet Count 246, Neutrophils (%) (Auto) 88.8H, Lymphocytes (%) (Auto) 5.9L, Monocytes (%) (Auto) 4.6, Eosinophils (%) (Auto) 0.1, Basophils (%) (Auto) 0.1, Neutrophils # (Auto) 10.1H, Lymphocytes # (Auto) 0.7L, Monocytes # (Auto) 0.5, Eosinophils # (Auto) 0.0, Basophils # (Auto) 0.0, Blood Urea Nitrogen 37H, Creatinine 1.57H, Sodium Level 140, Potassium Level 4.5, Chloride Level 108H, Carbon Dioxide Level 22, Calcium Level 8.2L, Glomerular Filtration Rate 34.8L, Large Unclassified Cells # 0.1, Large Unclassified Cells % 0.6 07/29/16 11:43: Bedside Glucose (Misc Panel) 369H CBC/BMP Laboratory Tests 07/29/16 05:28 Calcium Level 8.2 L, Red Blood Count 4.29, Mean Corpuscular Volume 83.3, Mean Corpuscular Hemoglobin 27.1, Mean Corpuscular Hemoglobin Concent 32.6, Red Cell Distribution Width 15.2 H, Neutrophils (%) (Auto) 88.8 H, Lymphocytes (%) (Auto ) 5.9 L, Monocytes (%) (Auto) 4.6, Eosinophils (%) (Auto) 0.1, Basophils (%) ( Auto) 0.1, Neutrophils # (Auto) 10.1 H, Lymphocytes # (Auto) 0.7 L, Monocytes # (Auto) 0.5, Eosinophils # (Auto) 0.0, Basophils # (Auto) 0.0 Microbiology Microbiology 07/26/16 Blood Culture - Preliminary, Resulted No Growth after 48 hours. All Specime... 07/26/16 Blood Culture - Preliminary, Resulted No Growth after 48 hours. All Specime... 07/26/16 Influenza Virus Type A Antigen - Final, Complete 07/26/16 Influenza Virus Type B Antigen - Final, Complete TIRSO MCKEON MD Jul 29, 2016 16:22
[2016-07-29] MEDS: ATORVASTATIN 20 MG TAB PO SCH (21:42)
[2016-07-29 22:00] VITALS: BP 155/78
[2016-07-30] MEDS: IPRATROPIUM 0.5MG/ALBUTEROL 2.5MG INH SOL UD 3ML (DUONEB)(J7620) NEB SCH ×3 (01:02→13:38)
[2016-07-30] MEDS: LEVOTHYROXINE 0.125 MG TAB (125 MCG) PO SCH (05:38)
[2016-07-30] MEDS: BENZONATATE 100 MG CAP PO SCH ×2 (05:38→14:00)
[2016-07-30 06:00] VITALS: BP 158/78
[2016-07-30] MEDS: HumaLOG INSULIN (NovoLOG) PER UNIT SC SCH ×3 (07:50→17:29)
[2016-07-30] MEDS: SENOKOT S TAB PO SCH (07:51)
[2016-07-30] MEDS: glipiZIDE 10 MG TAB PO SCH ×2 (07:51→17:28)
[2016-07-30] MEDS: OMEPRAZOLE 20 MG CAP PO SCH (07:51)
[2016-07-30] MEDS: predniSONE 20 MG TAB PO SCH (07:51)
[2016-07-30] MEDS: APIXABAN 5 MG TAB (ELIQUIS) PO SCH (07:52)
[2016-07-30] MEDS: LEVEMIR (INSULIN DETEMIR) 1 UNITS/0.01ML SC SCH (07:52)
[2016-07-30] MEDS ORDERED: LevoFLOXacin 750 MG TABLET PO ONE (08:00)
[2016-07-30 14:00] VITALS: BP 152/71
[2016-07-30] MEDS ORDERED: MEDR8TAB PO (16:38)
[2016-07-30] MEDS ORDERED: MEDR1TAB PO (16:38)
[2016-07-30] MEDS ORDERED: MEDR4TAB PO (16:38)
--- NOTE | 2016-07-30 17:02 | DS.PDOC ---
Discharge Summary General Date of Admission Jul 26, 2016 at 19:21 Date of Discharge 07/30/16 Primary Care Physician: Guadalupe Pham SCOOP OPERATOR Attending Physician: TIRSO BETANCOURT MD Discharge Summary PROCEDURES PERFORMED DURING STAY: None. Admission diagnosis: 1. Hypoxia 2. Pulmonary fibrosis 3. Stage III CK D 4. Lactic acidosis 5. DEVEN on CPAP 6. Insulin dependent diabetic 7. Chronic A. fib Discharge diagnosis: 1. Acute respiratory failure with hypoxia 2. History of pulmonary fibrosis 3. Stage III CK D 4. DEVEN on CPAP 5. Insulin dependent diabetic 6. Chronic A. fib COMPLICATIONS/CHIEF COMPLAINT: Pulmonary Fibrosis. HISTORY OF PRESENT ILLNESS/hospital course: Patient was admitted 07/26/2016 for acute shortness of breath. She was treated with a 3 day course of azithromycin, cefepime, and Solu-Medrol and had resolution of her dyspnea. There is no focal consolidation seen on chest x-ray. On the day of discharge, she was transitioned to by mouth prednisone and by mouth Levaquin. Due to the patient's GFR, only one final dose of Levaquin was given for a 5 day for coverage total. Patient developed jitteriness on prednisone, so was discharged with Medrol, as she did not have any issues with this medication. Patient was given a long taper, as she has been on prednisone for months. At the time of discharge, patient also complained of mild discomfort in the vicinity of her thyroid, and this was mildly enlarged. Patient indicates she has a history of lymphoma, so this was evaluated via ultrasound prior to discharge. She will follow up the results of the ultrasound outpatient, and may need additional workup or referral. At the time of discharge , the patient stated her breathing was greatly improved, although she continued to have some mild shortness of breath with exertion. She was stable on room air. She was discharged to home 07/30/2016, with planned follow-up to Katherin Pham or Dr. Tirso Betancourt. DISCHARGE MEDICATIONS: Please see below. ALLERGIES: Please see below. PHYSICAL EXAMINATION ON DISCHARGE: VITAL SIGNS: Please see below. GENERAL: Alert, sitting in bed comfortably, no acute distress HEENT: Sclerae clear, moist mucous membranes, nares patent and without nasal cannula NECK: Supple, mild redness and enlargement near thyroid with palpable enlargement, minimal tenderness CARDIOVASCULAR EXAMINATION: Regular rate, irregular rhythm, S1, S2, 1/6 systolic ejection murmur RESPIRATORY EXAMINATION: Bilateral lower lobe rales, faint expiratory wheezes bilaterally, decreased breath sounds throughout, no rhonchi ABDOMINAL EXAMINATION: Soft, nontender, nondistended, + bowel sounds EXTREMITIES: No edema, no cyanosis, no clubbing SKIN: Warm and dry, no rashes, no lesions NEUROLOGICAL EXAMINATION: Alert and oriented 3, no focal deficits PSYCHIATRIC EXAMINATION: Normal mood and affect LABORATORY DATA: Please see below. IMAGING: Chest x-ray: Stable chronic interstitial fibrosis with no acute cardiopulmonary processes PROGNOSIS: Fair, stable chronic ACTIVITY: As tolerated. DIET: Carb controlled DISCHARGE PLAN: Discharge to home with follow-up to Katherin Pham or Dr. Bteancourt DISPOSITION: Home with self-care DISCHARGE INSTRUCTIONS: 1. Follow-up Sunday or Sunday with your PCP or Dr. Tirso Betancourt 2. Continue Medrol 8 mg tablets for the next 7 days, followed by 4 mg tablets for 14 days, followed by 2 mg tablets for 30 days, followed by one half of a 2 mg tablet for 30 days. ITEMS TO FOLLOWUP ON ON OUTPATIENT: 1. Review thyroid ultrasound 2. Consider sending patient to pulmonology DISCHARGE CONDITION: Stable and improved TIME SPENT ON DISCHARGE: Greater than 30 minutes. Vital Signs/I&Os Vital Signs Date Time Temp Pulse Resp B/P Pulse Ox O2 Delivery O2 Flow Rate FiO2 07/30/16 09:20 Room Air 07/30/16 06:00 97.8 102 20 158/78 94 07/28/16 22:00 2.0 I&O- Last 24 Hours up to 6 AM 07/30/16 06:00 Intake Total 2390 ml Output Total 1900 ml Balance 490 ml Laboratory Data Labs 24H Laboratory Tests 2 07/30/16 05:06: Anion Gap 10, White Blood Count 12.7H, Red Blood Count 4.46, Hemoglobin 12.1, Hematocrit 37.6, Mean Corpuscular Volume 84.3, Mean Corpuscular Hemoglobin 27.1 , Mean Corpuscular Hemoglobin Concent 32.2, Red Cell Distribution Width 15.3H, Platelet Count 282, Neutrophils (%) (Auto) 87.3H, Lymphocytes (%) (Auto) 6.5L, Monocytes (%) (Auto) 5.2H, Eosinophils (%) (Auto) 0.1, Basophils (%) (Auto) 0.1 , Neutrophils # (Auto) 11.1H, Lymphocytes # (Auto) 0.9L, Monocytes # (Auto) 0.7 , Eosinophils # (Auto) 0.0, Basophils # (Auto) 0.0, Blood Urea Nitrogen 35H, Creatinine 1.66H, Sodium Level 139, Potassium Level 4.6, Chloride Level 108H, Carbon Dioxide Level 21, Calcium Level 8.0L, Glomerular Filtration Rate 32.6L, Large Unclassified Cells # 0.1, Large Unclassified Cells % 0.8 07/30/16 11:43: Bedside Glucose (Misc Panel) 201H CBC/BMP Laboratory Tests 07/30/16 05:06 Calcium Level 8.0 L, Red Blood Count 4.46, Mean Corpuscular Volume 84.3, Mean Corpuscular Hemoglobin 27.1, Mean Corpuscular Hemoglobin Concent 32.2, Red Cell Distribution Width 15.3 H, Neutrophils (%) (Auto) 87.3 H, Lymphocytes (%) (Auto ) 6.5 L, Monocytes (%) (Auto) 5.2 H, Eosinophils (%) (Auto) 0.1, Basophils (%) ( Auto) 0.1, Neutrophils # (Auto) 11.1 H, Lymphocytes # (Auto) 0.9 L, Monocytes # (Auto) 0.7, Eosinophils # (Auto) 0.0, Basophils # (Auto) 0.0 FSBS Laboratory Tests Test 07/30/16 11:43 Range/Units Bedside Glucose (Misc Panel) 201 80-115 MG/DL Microbiology Microbiology 07/26/16 Blood Culture - Preliminary, Resulted No Growth after 72 hours. All specime... 07/26/16 Blood Culture - Preliminary, Resulted No Growth after 72 hours. All specime... 07/26/16 Influenza Virus Type A Antigen - Final, Complete 07/26/16 Influenza Virus Type B Antigen - Final, Complete Discharge Medications Scheduled Apixaban Base (Eliquis) 5 Mg Tab 5 MG PO BID (Reported) Atorvastatin Calcium (Atorvastatin Calcium) 40 Mg Tab 40 MG PO QHS (Reported) Glipizide (Glipizide) 5 Mg Tab 10 MG PO BID (Reported) Insulin Glargine (Lantus) 1 Units/0.01 Ml Susp 52 UNITS SC DAILY (Reported) Insulin Human Lispro (Humalog) 1 Units/0.01 Ml Inj SC ACHS (Reported) Per Sliding Scale Ipratropium [place] (Ipratropium [place]) 0.5 Mg/2.5 Ml Soln 0.5 MG INH QID ( Reported) mix with xopenex Levalbuterol Hydrochloride (Xopenex Concentrate) 1.25 Mg/0.5 Ml Neb 1.25 MG INH QID (Reported) mix with ipratropium bromide Levothyroxine Sodium (Synthroid) 125 Mcg Tab 125 MCG PO QAM (Reported) Methylprednisolone (Medrol) 2 Mg Tab 2 MG PO DAILY Finish 4 mg pills, then take 2 mg pills for 30 days, followed by 1/2 a 2 mg pill for another 30 days. Methylprednisolone (Medrol) 4 Mg Tab 4 MG PO DAILY Finish 8 mg pills, then take 4 mg daily for 14 days, followed by 2 mg pills. Methylprednisolone (Medrol) 8 Mg Tab 8 MG PO DAILY Take 8 mg daily for 7 days, then change to 4 mg pills Multivitamins *[facility] STOCKED* (Thera M Plus *[facility] STOCKED*) 1 Tab Tab 1 TAB PO DAILY (Reported) Omeprazole (Omeprazole) 40 Mg Cap 40 MG PO DAILY (Reported) Spironolactone (Spironolactone) 25 Mg Tab 50 MG PO DAILY (Reported) Scheduled PRN Acetaminophen/Hydrocodone ([place] 5-325 mg) 1 Tab Tab 1 TAB PO Q6HP PRN PRN PAIN (Reported) Benzonatate (Benzonatate) 100 Mg Cap 200 MG PO Q8H PRN PRN COUGH (Reported) Allergies Coded Allergies: Sitagliptin (Verified Allergy, Intermediate, RASH, 07/26/16) Latex (Verified Adverse Reaction, Intermediate, RISK, 07/26/16) Lisinopril (Unverified Adverse Reaction, Mild, Cough, 07/26/16) TIRSO BETANCOURT MD Jul 30, 2016 17:02
--- NOTE | 2016-07-30 20:28 | ECGEPIP ---
Stationary ECG Study [facility] Test Date: 2016-07-29 Pat Name: LISA DIAMOND Department: Room: [place] [address] Gender: F Salmon Troll Fisher: PAULO : 1945 Requested By: TIRSO Miller Order Number: [id number] Reading MD: Shantal Kulkarni Measurements Intervals [place] Rate: 99 P: 51 NH: 188 QRS: -4 QRSD: 97 T: 72 QT: 332 QTc: 427 Interpretive Statements SINUS RHYTHM SINCE 07/26/16 HR IS SLOWER Electronically Signed On 07-30-2016 20:28:05 EDT by Shantal Kulkarni
--- NOTE | 2016-07-31 09:23 | REP ---
THYROID ULTRASOUND: 07/30/2016 CLINICAL HISTORY: Tenderness and enlargement of the thyroid. Sonographic evaluation shows the right lobe diminutive at 1.7 x 0.8 x 1.3 cm. The left lobe measures 2.7 x 0.7 x 0.8 cm. Exam was technically challenging due to body habitus considerations. Small lobes are noted with the left lobe containing a 5.2 x 7 x 5.4 mm nodule with echogenic shadowing calcifications. Both thyroid lobes are somewhat heterogeneous. No gross mass in the right lobe. The isthmus has a thickness of 4.3 mm. IMPRESSION: 1. Somewhat heterogeneous thyroid lobes, both are small with the left lobe larger than right and containing a 7 x 5.4 x 5.2 mm nodule with calcification. On the CT of the neck, 05/15/2016, a left-sided calcification is evident. These large coarse calcifications are often dystrophic. Signed by Ab Leiva MD 07/31/2016 05:07 P
== END 2016-07-30 18:04 | disposition home or self-care (01) | DRG 196 ==
LOC: EDBD 16:25 → EDSEX 16:25 → M ED 19:04 → M ED INP 19:21 → M MSPAV 21:12
PROVIDERS: ADMIT Internal Medicine Nephrology; ATTEND Family Medicine
DX: J84.10 Pulmonary fibrosis, unspecified (principal); J96.01 Acute respiratory failure with hypoxia; I50.22 Chronic systolic (congestive) heart failure; N18.4 Chronic kidney disease, stage 4 (severe); I13.0 Hypertensive heart and chronic kidney disease with heart failure and stage 1 through stage 4 chronic kidney disease, or unspecified chronic kidney disease; E87.2 Acidosis; G47.33 Obstructive sleep apnea (adult) (pediatric); E11.9 Type 2 diabetes mellitus without complications; I48.0 Paroxysmal atrial fibrillation; E03.9 Hypothyroidism, unspecified; E78.5 Hyperlipidemia, unspecified; E66.01 Morbid (severe) obesity due to excess calories; K21.9 Gastro-esophageal reflux disease without esophagitis; I36.1 Nonrheumatic tricuspid (valve) insufficiency; I34.0 Nonrheumatic mitral (valve) insufficiency; Z90.49 Acquired absence of other specified parts of digestive tract; Z96.651 Presence of right artificial knee joint; Z98.51 Tubal ligation status; Z88.8 Allergy status to other drugs, medicaments and biological substances; Z91.040 Latex allergy status; Z82.49 Family history of ischemic heart disease and other diseases of the circulatory system; Z83.3 Family history of diabetes mellitus; Z83.49 Family history of other endocrine, nutritional and metabolic diseases; Z99.81 Dependence on supplemental oxygen; Z79.52 Long term (current) use of systemic steroids; Z85.72 Personal history of non-Hodgkin lymphomas; Z79.4 Long term (current) use of insulin; Z79.01 Long term (current) use of anticoagulants

== ENCOUNTER 2016-08-01 09:04 | Inpatient (IN) | payer MEDICARE ==
[~2016-08-01] VITALS: Ht 154.9 cm; Wt 89.6 kg
[~2016-08-01 09:04] MED LIST changes: +HYDR-3713 PO; +MEDR1TAB PO; +MEDR4TAB PO; +MEDR8TAB PO; +NORC1TAB4 PO; +PRED10TA PO
[2016-08-01] MEDS ORDERED: ISOVUE-370 76% 100ML VIAL (Q9967) As Ordered ONE (10:25)
[2016-08-01] MEDS ORDERED: IPRATROPIUM 0.5MG/ALBUTEROL 2.5MG INH SOL UD 3ML (DUONEB)(J7620) NEB ONE (10:30)
[2016-08-01 10:37] LABS: ABG BASE EXCESS -0.8 (-2.0-2.0); ABG HCO3 20.6 MEQ/L (22.0-26.0); ABG PARTIAL PRESSURE CO2 26.2 mmHg (35.0-45.0); ABG PARTIAL PRESSURE O2 70.9 mmHg (75.0-100.0); ABG STANDARD HCO3 23.8 MEQ/L (22.0-26.0); ABG TOTAL CO2 21.4 MEQ/L (23.0-31.0); ABG pH (ARTERIAL) 7.514 UNITS (7.350-7.450)
[2016-08-01 10:46] LABS: CALCIUM LEVEL 8.6 MG/DL (8.8-10.2); CREATININE FOR GFR 1.52 MG/DL (0.55-1.02); GLOMERULAR FILTRATION RATE 36.1 (>45); POTASSIUM SERUM 4.7 MEQ/L (3.5-5.1)
[2016-08-01 10:47] LABS: MEAN CORPUSCULAR HEMOGLOBIN 27.4 pg (27.0-33.0); MEAN CORPUSCULAR HGB CONC 33.1 g/dl (32.0-36.5); MEAN CORPUSCULAR VOLUME 82.7 fl (80.0-96.0); PLATELET COUNT, AUTOMATED 268 k/mm3 (150-450); RED CELL DISTRIBUTION WIDTH 15.3 % (11.5-14.5); WHITE BLOOD COUNT 13.4 K/mm3 (4.0-10.0)
--- NOTE | 2016-08-01 11:24 | REP ---
PORTABLE CHEST: AP portable view of the chest is performed and compared to a prior study of 07/17/2016. Chronic interstitial opacities are seen in each lung base. I suspect mild superimposed patchy infiltrate in the right lung base. Cardiomediastinal silhouette is unchanged. Left MediPort catheter is again noted. IMPRESSION: Suspect mild right basilar infiltrate superimposed on chronic bibasilar interstitial opacities. Signed by Marty Chau MD 08/01/2016 04:22 P
--- NOTE | 2016-08-01 12:09 | REP ---
CT ANGIOGRAM OF THE CHEST: TECHNIQUE: Axial contrast enhanced images from the thoracic inlet to the upper abdomen using 100 mL Isovue 370 intravenous contrast material with multiplanar reformations. The lungs show underlying interstitial fibrotic changes bilaterally. However, there are patchy ground-glass opacities in both lower lung zones as seen on a prior study of 06/30/2016. These have increased bilaterally, but more so no the right than on the left. These may be inflammatory in nature. There is no CT evidence of pulmonary embolism. There is no mediastinal, hilar, or chest wall lymphadenopathy. There is no pleural or pericardial effusion. There is mild cardiomegaly. There is no thoracic aortic aneurysm or dissection. In the visualized upper abdomen, there is evidence of a small hiatal hernia. The patient has had a cholecystectomy. IMPRESSION: No CT evidence of pulmonary embolism. Patchy ground-glass opacities in both lower lung zones are again seen. These have increased since 06/30/2016, more so on the right than on the left. They may be inflammatory in nature. Signed by Marty Chau MD 08/01/2016 04:23 P
[2016-08-01] MEDS ORDERED: MEDR8TAB PO (16:06)
[2016-08-01] MEDS ORDERED: LEVA12INH INH (16:07)
[2016-08-01] MEDS ORDERED: PERCOCET 5MG/325MG TAB PO PRN ×2 (16:15)
[2016-08-01] MEDS ORDERED: BENZONATATE 100 MG CAP PO PRN (17:45)
[2016-08-01] MEDS ORDERED: DEXTROSE 50% 50 ML SYRINGE IV PRN (17:45)
[2016-08-01] MEDS ORDERED: GLUCOSE 4 GM CHEW TABLET PO PRN (17:45)
[2016-08-01] MEDS ORDERED: GLUCAGON FOR INJ 1 MG VIAL (J1610) SC PRN (17:45)
[2016-08-01 18:19] LABS: THYROXINE (T4) 10.9 UG/DL (4.5-12.0)
--- NOTE | 2016-08-01 18:27 | HPE ---
DATE OF ADMISSION: 08/01/2016 REASON FOR ADMISSION: Shortness of breath. HISTORY OF PRESENT ILLNESS: The patient is a 71-year-old female with past medical history significant for pulmonary fibrosis, congestive heart failure with an ejection fraction (EF) of 30-35%, non-Hodgkin's lymphoma, paroxysmal atrial fibrillation, hypothyroidism, diabetes, hypertension, morbid obesity, chronic kidney disease, stage III, obstructive sleep apnea on C-PAP, mitral regurgitation, presented to the emergency room complaining of shortness of breath that started shortly after she was discharged from the hospital on Sunday. The patient was recently admitted for similar symptoms of shortness of breath, hypoxia and lactic acidosis. She was discharged on Sunday, stated that she felt okay that day. However, the following day she started complaining of shortness of breath and a cough that has worsened. Today her shortness of breath became very severe. She was unable to ambulate from her chair to the bathroom and presented to the emergency room. Upon arrival, the patient was found to be hypoxic, saturating 81% on room air. She had a low grade temperature of 100.7 and she was tachycardiac 136 and respiratory rate of 26. The patient also had an initial lactic acid of 2.2 on admission. She received DuoNeb treatment and hospitalist was called for the admission. REVIEW OF SYSTEMS: 12-point review of systems was obtained all which was negative except for those mentioned above. PAST MEDICAL HISTORY: As above. PAST SURGICAL HISTORY: Significant for parathyroid surgery, cataract surgery, macular degeneration, retinal surgery, umbilical and inguinal hernia, left rotator cuff repair, bilateral knee replacement, cholecystectomy and left meniscal repair, cardiac ablation x3 in March 2013, right parotidectomy, colonoscopy in 2006, tubal ligation in 1973. Excisional biopsy of lymph node, left carpal tunnel release. ALLERGIES: LISINOPRIL, reaction: Cough. JANUVIA, reaction: Rash. LATEX. FAMILY HISTORY: Noncontributory. SOCIAL HISTORY: The patient denies any tobacco or alcohol use. Lives at home with her . HOME MEDICATIONS: Include: - [place] 1 tablet by mouth every 6 hours as needed for pain - Eliquis 5 mg by mouth twice a day - atorvastatin 40 mg daily - glipizide 10 mg by mouth twice a day - Lantus 30 units subcutaneously twice a day - Humalog before food and at bedtime per sliding scale - ipratropium bromide 0.5 mg inhaled quid as needed shortness of breath mixed with Xopenex - Xopenex 1.25 mg inhaled every 8 hours as needed for shortness of breath - Synthroid 125 mcg in the morning - Medrol Dosepak. The patient received on 07/30/2016 - multivitamin 1 tablet daily - spironolactone 50 mg daily - omeprazole 40 mg daily PHYSICAL EXAMINATION: VITALS ON ADMISSION: Temperature 100.7, pulse 136, respiratory rate 26, blood pressure 132/82, pulse ox 81% on room air. HEENT: Pupils equal, round and react to light and accommodation. Neck is supple. No jugular venous distention (JVD). Lungs: Diminished breath sounds in all lung [place]. Abdomen: Soft, nontender, nondistended. Cardiac: Tachycardiac, irregular rhythm. Extremities: No clubbing, cyanosis or edema. Neuro: Cranial nerves II through XII grossly intact. No focal deficits. LABORATORY FINDINGS: WBCs 13.4, hemoglobin 13.9, hematocrit 42.1, platelet count 268. Sodium 142, potassium 47, chloride 105, BUN 30, creatinine 1.52. Initial lactic acid 2.2, repeat was 1.6, fasting glucose 130, BNP 129. IMAGING STUDIES: CT angiogram as well as chest x-ray were done in the emergency room. CTA showed no evidence of pulmonary embolism (PE), patchy ground glass opacities in both lower lung zones are seen. These have increased since June 30, 2016, more so on the right than the left; may be inflammatory in nature. Chest x-ray showed mild right basilar infiltrate superimposed on chronic basilar interstitial opacities. ASSESSMENT/PLAN: 1. Shortness of breath, likely secondary to pulmonary fibrosis plus or minus infection. We will continue the patient on DuoNebs. Will start the patient on Solu-Medrol 40 mg every 6 hours. Continue oxygen to keep saturations between 88 and a 92. Obtain sputum culture. We will start the patient on ceftriaxone and azithromycin. 2. Sepsis, may be secondary to upper respiratory tract infection versus other. The patient had lactic acidosis initially on admission as well as low grade temperature of 100.7, tachycardia and elevated respiratory rate. The patient was also found to be hypoxic, 81% on room air. Repeat lactic acid was normalized. We will continue IV antibiotics. We will not start the patient on IV fluids given history of congestive heart failure. 3. History of congestive heart failure with an ejection fraction (EF) of 30-35%. Continue to monitor the patient on telemetry. Does not appear to be fluid overloaded at this time. 4. History of paroxysmal atrial fibrillation, rate uncontrolled. We will monitor the patient on telemetry. Will continue the patient's Eliquis 5 mg by mouth twice a day. She will start the patient on low dose of beta zuly. 5. Obstructive sleep apnea. Continue C-PAP machine. 6. Hyperlipidemia. Continue atorvastatin. 7. Hypothyroidism. Continue the patient's Synthroid. Will order a TSH panel. 7. History of chronic kidney disease (CKD). 9. Deep venous thrombosis (DVT) prophylaxis. Continue Eliquis. The patient will be signed out to Dr. Chad Betancourt.
[2016-08-01 18:55] VITALS: BP 130/54
[2016-08-01] MEDS: methylPREDNISolone INJ 125 MG/2 ML VIAL (J2930) IV SCH (19:00)
[2016-08-01 19:48] VITALS: BP 141/82
[2016-08-01] MEDS: IPRATROPIUM 0.5MG/ALBUTEROL 2.5MG INH SOL UD 3ML (DUONEB)(J7620) NEB SCH (21:32)
[2016-08-01] MEDS: cefTRIAXone SOD 1 GM in D5W MINI-BAG PLUS 50 ML IV SCH (22:48)
[2016-08-01] MEDS: HumaLOG INSULIN (NovoLOG) PER UNIT SC SCH (22:50)
[2016-08-01] MEDS: LEVEMIR (INSULIN DETEMIR) 1 UNITS/0.01ML SC SCH (22:50)
[2016-08-01] MEDS: NYSTATIN 500,000 U/5 ML SUSP UDC SS SCH (22:50)
[2016-08-01] MEDS: ATORVASTATIN 20 MG TAB PO SCH (22:51)
[2016-08-01] MEDS: APIXABAN 5 MG TAB (ELIQUIS) PO SCH (22:51)
[2016-08-01 23:36] VITALS: BP 140/60
[2016-08-02] MEDS: methylPREDNISolone INJ 125 MG/2 ML VIAL (J2930) IV SCH ×3 (00:21→06:26)
[2016-08-02] MEDS: AZITHROMYCIN INJ 500 MG, VIAL MATE ADAPTER 1 EACH in D5W 250 ML IV SCH ×2 (00:21→18:26)
[2016-08-02] MEDS: IPRATROPIUM 0.5MG/ALBUTEROL 2.5MG INH SOL UD 3ML (DUONEB)(J7620) NEB SCH ×4 (03:05→21:31)
[2016-08-02 03:51] VITALS: BP 121/60
[2016-08-02] MEDS ORDERED: LEVOTHYROXINE 0.125 MG TAB (125 MCG) PO SCH (06:00)
[2016-08-02 06:15] LABS: BASO % 0.3 % (0.0-1.0); EOS # 0.1 K/mm3 (0.0-0.50); LARGE UNSTAINED CELL % 0.3 % (0.0-4.0); LYMPH # 0.6 K/mm3 (1.5-4.5); MEAN CORPUSCULAR HEMOGLOBIN 26.9 pg (27.0-33.0); MEAN CORPUSCULAR HGB CONC 32.9 g/dl (32.0-36.5); MEAN CORPUSCULAR VOLUME 81.8 fl (80.0-96.0); MONO # 0.1 K/mm3 (0.0-0.8); MONO % 1.8 % (0.0-5.0); NEUTROPHILS # 6.8 K/mm3 (1.8-7.7); NEUTROPHILS % 88.6 % (36.0-66.0); PLATELET COUNT, AUTOMATED 232 k/mm3 (150-450); RED CELL DISTRIBUTION WIDTH 15.5 % (11.5-14.5); WHITE BLOOD COUNT 7.7 K/mm3 (4.0-10.0)
[2016-08-02 06:34] LABS: ALBUMIN 2.3 GM/DL (3.2-5.2); ALBUMIN/GLOBULIN RATIO 0.82 (1.00-1.93); BILIRUBIN,TOTAL 0.7 MG/DL (0.2-1.0); CALCIUM LEVEL 8.2 MG/DL (8.8-10.2); CREATININE FOR GFR 1.25 MG/DL (0.55-1.02); GLOMERULAR FILTRATION RATE 45.2 (>45); MAGNESIUM LEVEL 2.5 MG/DL (1.8-2.4); POTASSIUM SERUM 4.6 MEQ/L (3.5-5.1); TOTAL PROTEIN 5.1 GM/DL (6.4-8.2)
[2016-08-02 06:56] VITALS: BP 162/90
--- NOTE | 2016-08-02 07:59 | IPNPDOC ---
Subjective Date Seen The patient was seen on 08/02/16. Subjective Chief Complaint/HPI The patient is a 71-year-old female admitted with a reason for visit of Shortness Of Breath. Events since last encounter Developed sudden onset Atrial fibrillation with RVR in the 150s this am. Spontaneously dropped to 100-110. denies CP. Denies worsening SOB. No hypoxia with episode. Admits to feeling like heart is racing. HX of cardiac ablation x 2. Was previously on Amiodarone which was stopped due to pulmonary fibrosis. Previously on Lopressor which was stopped after last ablation. Patient c/o anterior chest tightness and wheezing to the upper airway. Constitutional: Denies: Chills, Fever, Night Sweats Skin: Denies: Breakdown, Lesions, Rash Pulmonary: Reports: Cough, Dyspnea Cardiovascular: Reports: Edema, Palpitations, Paroxysmal Noc. Dyspnea (CPAP: non-compliant last night), Denies: Chest Pain, Lt Headedness, Orthopnea Gastrointestinal: Denies: Abdominal Pain, Constipation, Diarrhea, Nausea, Vomiting Genitourinary: Denies: Dysuria, Frequency, Incontinence, Retention Psych: Reports: Mood Normal, Denies: Depression, Memory Issues Objective Physical Examination General Exam: Positive: Alert, No Acute Distress Eye Exam: Positive: Conjunctiva & lids normal, EOMI, PERRLA, Negative: Sclera icteric Neck Exam: Positive: Supple, Negative: JVD, thyromegaly Chest Exam: Positive: Clear to auscultation, Normal air movement Heart Exam: Positive: Irregular Rhythm Telemetry: Positive: Atrial fibrillation, Tachycardia Abdomen Exam: Positive: Normal bowel sounds, Soft, Negative: Hepatospenomegaly, Tenderness Psych Exam: Positive: Mental status NL, Mood NL, Oriented x 3 Assessment /Plan Problems (1) Atrial fibrillation with RVR Status: Acute Problem Text: Metoprolol 25 mg po q 6 hrs. Parameters to HOLD were placed in orders. Monitor. EKG: Afib with RVR: 153 (2) Pulmonary fibrosis Status: Acute Problem Specific Plan: Consult Specialist Problem Text: Consult Pulmonology. has been on several bouts of steroids. CT shows worsening fibrosis. Was thought to be related to Amiodarone. Has been off of Amiodarone for approximately 8 weeks. (3) Hypoxia Status: Acute Problem Text: 3-4 LNC on non-oxygen dependent female. sats maintained 90-94% (4) Lactic acid acidosis Status: Acute Response to Treatment: Improving Problem Text: repeat lactic acid normal. (5) CKD (chronic kidney disease) stage 3, GFR 30-59 ml/min Status: Chronic (6) HTN (hypertension) Status: Chronic Response to Treatment: Stable (7) Anxiety Status: Chronic Response to Treatment: Stable (8) GERD (gastroesophageal reflux disease) Status: Chronic Response to Treatment: Stable (9) Hyperlipidemia Status: Chronic Response to Treatment: Stable (10) T2DM (type 2 diabetes mellitus) Status: Chronic Response to Treatment: Stable (11) DEVEN on CPAP Status: Chronic Problem Text: Did not use CPAP last night. Encouraged to use while sleeping. (12) Hypothyroidism (acquired) Status: Chronic Problem Text: TSH 0.3 with elevated T3. Dosing decreased to 100 mcg from 125 mcg. Plan/VTE VTE Prophylaxis Ordered?: Yes (Eliquis) Plan Attending note: I saw and evaluated the patient, and I agree with the plan of care as discussed and documented above by Katherin Pham. Tirso Mckeon MD VS, I&O, [facility], [facility] Vital Signs/I&O Vital Signs Date Time Temp Pulse Resp B/P Pulse Ox O2 Delivery O2 Flow Rate FiO2 08/02/16 07:39 Nasal Cannula 4.0 08/02/16 06:56 98.6 156 18 162/90 94 I&O- Last 24 Hours up to 6 AM 08/02/16 06:00 Intake Total 600 ml Output Total 650 ml Balance -50 ml Laboratory Data 24[facility] LABS Laboratory Tests 2 08/01/16 09:59: Anion Gap 10, B-Type Natriuretic Peptide 129H, White Blood Count 13.4H, Red Blood Count 5.08, Hemoglobin 13.9, Hematocrit 42.1, Mean Corpuscular Volume 82.7 , Mean Corpuscular Hemoglobin 27.4, Mean Corpuscular Hemoglobin Concent 33.1, Red Cell Distribution Width 15.3H, Platelet Count 268, Neutrophils (%) (Auto) , Lymphocytes (%) (Auto) , Monocytes (%) (Auto) , Eosinophils (%) (Auto) , Basophils (%) (Auto) , Neutrophils # (Auto) , Lymphocytes # (Auto) , Monocytes # (Auto) , Eosinophils # (Auto) , Basophils # (Auto) , Blood Urea Nitrogen 30H, Creatinine 1.52H, Sodium Level 142, Potassium Level 4.7, Chloride Level 105, Carbon Dioxide Level 27, Calcium Level 8.6L, Glomerular Filtration Rate 36.1L, Lactic Acid Level 2.2*H, Large Unclassified Cells # , Large Unclassified Cells % , Lymphocytes (Manual) 7L, Metamyelocytes 2H, Monocytes (Manual) 5, Neutrophils 86H, Platelet Estimate NORMAL, Red Blood Cell Morphology NORMAL 08/01/16 10:22: Arterial Blood pH 7.514H, Arterial Blood Partial Pressure CO2 26.2L, Arterial Blood Partial Pressure O2 70.9L, Arterial Blood Total CO2 21.4L, Arterial Blood HCO3 20.6L, Arterial Blood Base Excess -0.8, Arterial Blood Oxygen Saturation 95.3, Blood Gas Bicarbonate Standard 23.8 08/01/16 14:08: Lactic Acid Followup at 4 Hours 1.6 08/01/16 15:44: Bedside Glucose (Misc Panel) 151H 08/01/16 17:28: Creatine Kinase MB 1.3, Creatine Kinase MB Relative Index 2.45, Free Thyroxine Index 4.5, Thyroid Stimulating Hormone (TSH) 0.307L, Thyroxine (T4) 10.9, Total Creatine Kinase 53, Triiodothyronine (T3) Uptake 41H 08/01/16 21:15: Bedside Glucose (Misc Panel) 266H 08/02/16 00:51: Creatine Kinase MB 1.4, Creatine Kinase MB Relative Index 2.25, Total Creatine Kinase 62 08/02/16 05:59: Blood Urea Nitrogen 30H, Creatinine 1.25H, Sodium Level 140, Potassium Level 4.6 , Chloride Level 106, Carbon Dioxide Level 29, Calcium Level 8.2L, Aspartate Amino Transf (AST/SGOT) 29, Alanine Aminotransferase (ALT/SGPT) 31, Alkaline Phosphatase 60, Total Bilirubin 0.7, Total Protein 5.1L, Albumin 2.3L, Albumin/ Globulin Ratio 0.82L, Anion Gap 5L, White Blood Count 7.7, Red Blood Count 4.57 , Hemoglobin 12.3, Hematocrit 37.4, Mean Corpuscular Volume 81.8, Mean Corpuscular Hemoglobin 26.9L, Mean Corpuscular Hemoglobin Concent 32.9, Red Cell Distribution Width 15.5H, Platelet Count 232, Neutrophils (%) (Auto) 88.6H , Lymphocytes (%) (Auto) 8.0L, Monocytes (%) (Auto) 1.8, Eosinophils (%) (Auto) 1.0, Basophils (%) (Auto) 0.3, Neutrophils # (Auto) 6.8, Lymphocytes # (Auto) 0.6L, Monocytes # (Auto) 0.1, Eosinophils # (Auto) 0.1, Basophils # (Auto) 0.0, Glomerular Filtration Rate 45.2, Large Unclassified Cells # 0.0, Large Unclassified Cells % 0.3, Magnesium Level 2.5H CBC/BMP Laboratory Tests 08/01/16 09:59 Calcium Level 8.6 L, Red Blood Count 5.08, Mean Corpuscular Volume 82.7, Mean Corpuscular Hemoglobin 27.4, Mean Corpuscular Hemoglobin Concent 33.1, Red Cell Distribution Width 15.3 H, Neutrophils (%) (Auto) , Lymphocytes (%) (Auto) , Monocytes (%) (Auto) , Eosinophils (%) (Auto) , Basophils (%) (Auto) , Neutrophils # (Auto) , Lymphocytes # (Auto) , Monocytes # (Auto) , Eosinophils # (Auto) , Basophils # (Auto) 08/02/16 05:59 Calcium Level 8.2 L, Red Blood Count 4.57, Mean Corpuscular Volume 81.8, Mean Corpuscular Hemoglobin 26.9 L, Mean Corpuscular Hemoglobin Concent 32.9, Red Cell Distribution Width 15.5 H, Neutrophils (%) (Auto) 88.6 H, Lymphocytes (%) ( Auto) 8.0 L, Monocytes (%) (Auto) 1.8, Eosinophils (%) (Auto) 1.0, Basophils (% ) (Auto) 0.3, Neutrophils # (Auto) 6.8, Lymphocytes # (Auto) 0.6 L, Monocytes # (Auto) 0.1, Eosinophils # (Auto) 0.1, Basophils # (Auto) 0.0, Aspartate Amino Transf (AST/SGOT) 29, Alanine Aminotransferase (ALT/SGPT) 31, Alkaline Phosphatase 60, Total Bilirubin 0.7, Total Protein 5.1 L, Albumin 2.3 L Microbiology Microbiology 08/01/16 Blood Culture, Received Pending 08/01/16 Blood Culture, Received Pending 08/01/16 Influenza Virus Type A Antigen - Final, Complete 08/01/16 Influenza Virus Type B Antigen - Final, Complete Guadalupe PhamP Aug 02, 2016 07:59 TIRSO MCKEON MD Aug 02, 2016 19:41
[2016-08-02 08:00] VITALS: BP 120/77
[2016-08-02] MEDS: NYSTATIN 500,000 U/5 ML SUSP UDC SS SCH ×2 (09:03→21:57)
[2016-08-02] MEDS: LEVEMIR (INSULIN DETEMIR) 1 UNITS/0.01ML SC SCH ×2 (09:03→21:57)
[2016-08-02] MEDS: HumaLOG INSULIN (NovoLOG) PER UNIT SC SCH ×4 (09:03→22:12)
[2016-08-02] MEDS: SPIRONOLACTONE 25 MG TAB PO SCH (09:04)
[2016-08-02] MEDS: APIXABAN 5 MG TAB (ELIQUIS) PO SCH ×2 (09:04→21:58)
[2016-08-02] MEDS: OMEPRAZOLE 20 MG CAP PO SCH (09:04)
[2016-08-02] MEDS: METOPROLOL TART 25 MG TABLET PO SCH ×3 (09:04→18:28)
[2016-08-02 12:00] VITALS: BP 141/77
--- NOTE | 2016-08-02 14:03 | ECGEPIP ---
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
[2016-08-02] MEDS: methylPREDNISolone 4 MG TAB PO SCH (14:12)
[2016-08-02 16:00] VITALS: BP 143/71
[2016-08-02 20:00] VITALS: BP 126/63
[2016-08-02] MEDS: ATORVASTATIN 20 MG TAB PO SCH (21:57)
[2016-08-02] MEDS: cefTRIAXone SOD 1 GM in D5W MINI-BAG PLUS 50 ML IV SCH (21:58)
[2016-08-03] VITALS (7 sets, daily range): BP systolic 121–167; BP diastolic 64–88
[2016-08-03] MEDS: METOPROLOL TART 25 MG TABLET PO SCH ×4 (01:01→17:47)
[2016-08-03] MEDS: IPRATROPIUM 0.5MG/ALBUTEROL 2.5MG INH SOL UD 3ML (DUONEB)(J7620) NEB SCH ×4 (02:17→19:53)
[2016-08-03 05:41] LABS: BASO % 0.1 % (0.0-1.0); EOS % 0.4 % (0.0-3.0); LARGE UNSTAINED CELL # 0.1 K/mm3 (0.0-0.4); LARGE UNSTAINED CELL % 0.5 % (0.0-4.0); LYMPH % 8.9 % (24.0-44.0); MEAN CORPUSCULAR HEMOGLOBIN 26.7 pg (27.0-33.0); MEAN CORPUSCULAR HGB CONC 33.4 g/dl (32.0-36.5); MEAN CORPUSCULAR VOLUME 80.1 fl (80.0-96.0); MONO # 0.4 K/mm3 (0.0-0.8); MONO % 3.9 % (0.0-5.0); NEUTROPHILS # 9.5 K/mm3 (1.8-7.7); NEUTROPHILS % 86.1 % (36.0-66.0); PLATELET COUNT, AUTOMATED 262 k/mm3 (150-450); RED CELL DISTRIBUTION WIDTH 15.1 % (11.5-14.5)
[2016-08-03 05:56] LABS: ALBUMIN 2.3 GM/DL (3.2-5.2); ALBUMIN/GLOBULIN RATIO 0.88 (1.00-1.93); BILIRUBIN,TOTAL 0.4 MG/DL (0.2-1.0); CREATININE FOR GFR 1.22 MG/DL (0.55-1.02); GLOMERULAR FILTRATION RATE 46.5 (>45); MAGNESIUM LEVEL 2.4 MG/DL (1.8-2.4); POTASSIUM SERUM 4.1 MEQ/L (3.5-5.1); TOTAL PROTEIN 4.9 GM/DL (6.4-8.2)
[2016-08-03] MEDS: LEVOTHYROXINE 0.1 MG TAB (100 MCG) PO SCH (06:05)
[2016-08-03] MEDS: HumaLOG INSULIN (NovoLOG) PER UNIT SC SCH ×4 (08:10→21:00)
[2016-08-03] MEDS: LEVEMIR (INSULIN DETEMIR) 1 UNITS/0.01ML SC SCH ×2 (08:53→21:48)
[2016-08-03] MEDS: NYSTATIN 500,000 U/5 ML SUSP UDC SS SCH ×2 (08:54→21:48)
[2016-08-03] MEDS: FLUTICASONE PROP 0.05% NASAL SPRAY 16 GM (FLONASE) SCH (08:54)
[2016-08-03] MEDS: APIXABAN 5 MG TAB (ELIQUIS) PO SCH ×2 (08:56→21:49)
[2016-08-03] MEDS: SPIRONOLACTONE 25 MG TAB PO SCH (08:56)
[2016-08-03] MEDS: methylPREDNISolone 4 MG TAB PO SCH (08:56)
[2016-08-03] MEDS: OMEPRAZOLE 20 MG CAP PO SCH (08:56)
[2016-08-03] MEDS ORDERED: methylPREDNISolone 4 MG TAB PO SCH (09:00)
--- NOTE | 2016-08-03 09:02 | IPN ---
DATE: 08/03/2016 Mrs. Vega is still not feeling well. She still complains about shortness of breath. She had an episode of atrial fibrillation yesterday, but did not have any subjective sensation of palpitations. Vital signs: Blood pressure 126/68. Heart rate is 78. She is afebrile. Saturation 94% on 4 liters. Fluid balance yesterday was slightly positive. Weight is 92 kg. She is alert, oriented and appropriate. Her jugular venous pulse (JVP) is not elevated. Lungs are relatively clear to auscultation. I do not appreciate any wheezing, crackles or rhonchi. Heart exam reveals regular rhythm. No gallop. No peripheral edema. Neurologically intact. Laboratory [place], CBC: WBC count 11, hemoglobin 12.1, hematocrit 36, platelet count 262,000. Basic metabolic panel is essentially normal. Creatinine is 1.2, glucose 149. She had several sets of negative cardiac enzymes and her BNP on admission was 129, which is very marginally elevated. ASSESSMENT AND PLAN: Mrs. Vega is a very complicated lady. She is 71-year-old lady who has a history of B-cell lymphoma and also paroxysmal atrial fibrillation for which she was on amiodarone for quite some time and eventually it was discontinued in May. She had a brief relapse the last night that responded favorably to administration of beta-blockers. At this point, I would continue current management. I certainly would not consider reinstitution of amiodarone, but if she has further relapses we may need to consider alternative antiarrhythmics. The hough problem is her dyspnea. She has some interstitial lung process, which is thought to be potentially pulmonary fibrosis. Unclear whether amiodarone or her B-cell lymphoma are a culprit. I had a discussion with Dr. Slade and Guadalupe Pham NP. Dr. Slade's opinion is that it may have represented amiodarone even though is not classic. There was always favorable response to high-dose steroids and the plan is to continue the same. He does not believe that tissue diagnosis would likely change the management and would be associated with significant risk. I certainly do not believe that the atrial fibrillation is a cause of her dyspnea. If anything, it is a consequence. [facility]
[2016-08-03] MEDS: NORCO, ANEXSIA 5/325MG TABLET (HYDROcodone/ACETAMINOPHEN) PO PRN (09:03)
--- NOTE | 2016-08-03 12:37 | ECGEPIP ---
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
--- NOTE | 2016-08-03 15:04 | CR ---
CARDIOLOGY CONSULTATION: DATE OF CONSULTATION: 08/02/2016 REFERRING PROVIDER: Chad Betancourt MD/PAT [place] REASON FOR THE CONSULTATION: Atrial fibrillation. HISTORY OF PRESENT ILLNESS: 71-year-old woman well known by the office , and she usually sees Dr. Kulkarni. She came to the hospital yesterday, on 08/01/2016, with increasing shortness of breath, and she was found to be hypoxemic. Her oxygen saturation upon arrival was reported to be 81% on room air. Currently, she is not on oxygen at home. According to her chart, she has a history of pulmonary fibrosis but stable. Her vital signs otherwise revealed sinus tachycardia up to 136 beats per minute with a temperature of 100.7 degrees Fahrenheit and respirations of 26 per minute. Serum lactic acid was 2.2 on admission. She was admitted for further management and monitoring; started on IV antibiotics for possible sepsis. This morning, she developed one episode of rapid heart rate consistent with atrial fibrillation; cardiology consult was called. Case was discussed earlier today with her nurse practitioner, and patient was started on a small dose of beta-zuly with metoprolol tartrate at 25 mg by mouth every 6 hours. She spontaneously cardioverted to a normal sinus rhythm. Mrs. Judy Vega has a history of atrial fibrillation, diagnosed the first time in the month of April of 2015, and she was mechanically cardioverted in May of 2015 but relapsed and then again mechanically cardioverted in December of 2015. She then was referred to EP in [place], Dr. Nieto because of relapse, and the patient had ablation for atrial flutter as well as for focal atrial tachycardia. Her amiodarone and her beta-zuly were discontinued after that procedure. She stated that she was doing well, but slowly she feels that her heart rate has been fast with activities, usually in the 120s. Otherwise, at rest, it is normal, around 60-90 beats per minute. She denies any palpitation. Even this morning when she was in atrial flutter with a rapid rate, she did or did not feel that. She does have shortness of breath with activities, relieved with rest, but she thinks she is feeling better since in the hospital. She has no nausea, vomiting, diarrhea, melena, or hematemesis. She has no chest pain. She has no orthopnea or paroxysmal nocturnal dyspnea (PND). She denies any active bleeding. She has been dealing with a cough from unclear etiology, and she sees pulmonology, Dr. Slade. She has no nausea, vomiting, diarrhea, melena, or hematemesis. She has no focal manifestation. She has a long history of hypertension, hyperlipidemia, diabetes mellitus, obesity, and sleep apnea and, as mentioned above, last year she was diagnosed with paroxysmal atrial flutter/fibrillation, which was ablated. PAST MEDICAL HISTORY: Last year, she was found to have a low left ventricular ejection fraction (LVEF) but, according to the last echocardiogram, her LVEF was reported to be normal, estimated at 55-60%. She does have some underlying valvular heart disease involving the mitral valve, mild to moderate. She was found a couple years ago to have findings consistent with atherosclerosis of the coronary arteries, but she had a nuclear stress test done last year; it was negative for ischemia or infarction. There is no history of myocardial infarction. She does have a history of gastroesophageal reflux disease (GERD), enteritis, and hypothyroidism, renal insufficiency. History of non-Hodgkin lymphoma. PAST SURGICAL HISTORY: Positive for cholecystectomy, left meniscal repair, right knee replacement, left rotator cuff repair, cataract extraction, vitrectomy, (even looking at admission note cannot figure this out!!!)) right parotidectomy, tubal ligation in 1973, left carpal tunnel release surgery, excisional biopsy of a lymph node. CURRENT MEDICATIONS: Are: - Flonase nasal spray 0.05% daily - levothyroxine 0.1 mg by mouth daily - omeprazole 40 mg by mouth daily - spironolactone 50 mg by mouth daily - methylprednisolone 12 mg by mouth daily - regular insulin coverage - metoprolol tartrate 25 mg by mouth every 6 hours - apixaban/Eliquis 5 mg by mouth twice a day - atorvastatin 40 mg by mouth nightly - Levemir 30 units subcutaneous twice a day - DuoNeb one every 6 hours via inhalation - ceftriaxone 1 gram IV every 24 hours - azithromycin 500 mg IV every 24 hours - D50, 25 mL as directed IV for hypoglycemia - glucose tablets 16 grams by mouth as directed for hypoglycemia as needed - glucagon 1 mg subcutaneous as needed for hypoglycemia - oxycodone 5/325 mg one tablet every 6 hours as needed for pain - Tessalon Perles 200 mg by mouth every 8 hours as needed for cough MEDICATIONS ACCORDING TO THE LAST OFFICE VISIT NOTE: - benzonatate 100 mg by mouth daily as directed - hydrocodone 5/325 mg as directed - Atrovent 17 mcg via inhalation as directed - Xopenex via inhalation as directed - prednisolone 30 mg as directed - atorvastatin 40 mg by mouth daily - Eliquis 5 mg by mouth twice a day - glipizide 5 mg tablets and two tablets twice a day - Lantus insulin as directed - levothyroxine 125 mcg by mouth daily - multivitamins one tablet by mouth daily - NovoLog as directed - omeprazole 40 mg by mouth daily - spironolactone 50 mg by mouth daily FAMILY HISTORY: Is positive for diabetes mellitus, hypertension, cerebrovascular accident (CVA), coronary artery disease. SOCIAL HISTORY: Patient is and lives with her . 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 She denies smoking; she never smoked. She denies any ethyl alcohol (EtOH) abuse. ALLERGIES: LATEX, LISINOPRIL, and JANUVIA. ADVANCE DIRECTIVES: Patient is a FULL CODE. PHYSICAL EXAMINATION: Patient is alert and oriented, in no acute distress at rest. Her last vital signs today reveal a blood pressure of 169/77, and prior to that it was 143/71 with a pulse of 82, respirations 20, and her maximum temperature is 97 degrees Fahrenheit with an oxygen saturation of 96% on 4 liters per minute nasal cannula. Examination of the head, ears, eyes, nose, and throat: Atraumatic. Fundus examination was not done. Neck is supple; I could not appreciate any jugular venous distention (JVD). The lungs did not reveal any wheezing or crackles. The heart examination revealed normal S1 and S2 without gallops. The point of maximal impulse (PMI) is not displaced. There was no rub. I could not appreciate any murmurs. Abdomen is soft and nontender; bowel sounds are active. Extremities reveal no pedal edema. Peripheral pulses, dorsalis pedis are +2 and equal. Neurological examination is negative for focal deficit. LABS: BMP done today revealed a sodium of 140, potassium 4.6, chloride 106, CO2 of 29, BUN 30, creatinine 1.25, GFR 45.2, fasting glucose 163, and calcium 8.2. Serum magnesium is 2.5. Liver enzymes revealed a total bilirubin of 0.7, AST 29, ALT 31, alkaline phosphatase 60, total bilirubin 5.1, albumin 2.3. Serum lactic acid today is 1.6. Thyroid function tests revealed a TSH of 0.307, free T4 of 4.5, T4 of 10.9 and T3 uptake 41. CBC done today revealed a WBC of 7.7, hemoglobin 12.3, hematocrit 37.4 and platelets 232,000. ABG on admission revealed a pH of 7.51, pCO2 of 26.2, pO2 of 70.9, and oxygen saturation was 95.3%. Chest x-ray on admission revealed no manifestation of heart failure, no pleural effusion. CT angiography of the chest done on admission revealed no evidence of pulmonary embolism. There were patchy ground glass opacities in both lower lung zones, increased from June of 2016 and it was more on the right than the left. Electrocardiogram on 08/01/2016 at 10:39:44 revealed sinus tachycardia at about 140 beats per minute, isolated premature ventricular contractions (PVCs), poor R wave progression, mild intraventricular conduction delay (IVCD). There may be findings of left ventricular hypertrophy. Electrocardiogram done today, 08/02/2016, at 06:57:27 revealed atrial fibrillation at a rate of 142 beats per minute, poor R wave progression, mild IVCD, nonspecific ST-T abnormalities. IMPRESSION: 1. Atrial fibrillation in this 71-year-old woman with history of atrial flutter/fibrillation, for which she was mechanically cardioverted twice in 2015 and also ablated in March of 2016 for atrial flutter and focal atrial tachycardia. Patient was started on a small dose of beta-zuly, metoprolol tartrate, and she spontaneously cardioverted to a normal sinus rhythm. I recommend to continue current medications and if she continues to be stable, we can change it to twice a day. She is already on one of the new oral anticoagulants (NOACs), Eliquis, for prevention of thromboembolic events, and she will continue the same. At this present time, she is stable from a cardiac point of view and will continue telemetry and I will monitor her along with you. Tomorrow morning, she will be seen by Dr. Kulkarni. 2. Hypertension. Under fair control, and she can be monitored for now. Now on a beta-zuly. She is also on spironolactone. 3. History of hyperlipidemia. Being addressed, on a statin. 4. History of diabetes mellitus. Being addressed. 5. Hypothyroidism. Also being addressed. 6. Pulmonary fibrosis. She is being evaluated by pulmonary, Dr. Slade. 7. Obesity and sleep apnea. On continuous positive airway pressure (CPAP). It was a pleasure to participate in the care of Mrs. Judy Vega for her underlying cardiac condition. I will continue to monitor along with you while in the hospital. At this present time, she appeared to be stable. Please do not hesitate to call if any questions. JAQUAN
[2016-08-03] MEDS: cefTRIAXone SOD 1 GM in D5W MINI-BAG PLUS 50 ML IV SCH (21:48)
[2016-08-03] MEDS: ATORVASTATIN 20 MG TAB PO SCH (21:49)
[2016-08-03] MEDS: AZITHROMYCIN 250 MG TAB PO SCH (21:49)
[2016-08-04] VITALS (8 sets, daily range): BP systolic 104–136; BP diastolic 57–78; O2SAT 97
[2016-08-04] MEDS: METOPROLOL TART 25 MG TABLET PO SCH ×4 (00:12→16:53)
--- NOTE | 2016-08-04 00:17 | IPNPDOC ---
Subjective Date Seen The patient was seen on 08/03/16. Subjective Chief Complaint/HPI The patient is a 71-year-old female admitted with a reason for visit of Shortness Of Breath. Events since last encounter Patient seen on PCU. She remains on supplemental O2. She denies significant symptoms at rest, but we have not been able to wean her O2. She remains in sinus rhythm. Constitutional: Denies: Chills, Fever ENT: Denies: Head Aches Pulmonary: Reports: Cough, Dyspnea Cardiovascular: Denies: Chest Pain, Palpitations Gastrointestinal: Reports: Constipation, Denies: Abdominal Pain, Diarrhea, Nausea, Vomiting Objective Physical Examination General Exam: Positive: Alert, No Acute Distress Eye Exam: Positive: Conjunctiva & lids normal, EOMI, PERRLA, Negative: Sclera icteric Neck Exam: Positive: Supple, Negative: JVD, thyromegaly Chest Exam: Positive: Clear to auscultation, Normal air movement Heart Exam: Positive: Irregular Rhythm Telemetry: Positive: Atrial fibrillation, Tachycardia Abdomen Exam: Positive: Normal bowel sounds, Soft, Negative: Hepatospenomegaly, Tenderness Psych Exam: Positive: Mental status NL, Mood NL, Oriented x 3 Assessment /Plan Problems (1) Atrial fibrillation with RVR Status: Acute Problem Text: Metoprolol 25 mg po q 6 hrs. Parameters to HOLD were placed in orders. Monitor. EKG: Afib with RVR: 153 08/03: Remains in sinus (2) Pulmonary fibrosis Status: Acute Problem Specific Plan: Consult Specialist Problem Text: Consult Pulmonology. has been on several bouts of steroids. CT shows worsening fibrosis. Was thought to be related to Amiodarone. Has been off of Amiodarone for approximately 8 weeks. (3) Hypoxia Status: Acute Problem Text: 3-4 LNC on non-oxygen dependent female. sats maintained 90-94% 08/03: We have not been able to wean off at this time. (4) Lactic acid acidosis Status: Acute Response to Treatment: Improving Problem Text: repeat lactic acid normal. (5) CKD (chronic kidney disease) stage 3, GFR 30-59 ml/min Status: Chronic (6) HTN (hypertension) Status: Chronic Response to Treatment: Stable (7) Anxiety Status: Chronic Response to Treatment: Stable (8) GERD (gastroesophageal reflux disease) Status: Chronic Response to Treatment: Stable (9) Hyperlipidemia Status: Chronic Response to Treatment: Stable (10) T2DM (type 2 diabetes mellitus) Status: Chronic Response to Treatment: Stable (11) DEVEN on CPAP Status: Chronic Problem Text: Did not use CPAP last night. Encouraged to use while sleeping. (12) Hypothyroidism (acquired) Status: Chronic Problem Text: TSH 0.3 with elevated T3. Dosing decreased to 100 mcg from 125 mcg. Plan/VTE VTE Prophylaxis Ordered?: Yes (Eliquis) VS, I&O, 24H, Fishbone Vital Signs/I&O Vital Signs Date Time Temp Pulse Resp B/P Pulse Ox O2 Delivery O2 Flow Rate FiO2 08/03/16 23:49 97.4 83 20 158/88 92 NIPPV (BIPAP/CPAP) 08/03/16 20:00 2.0 I&O- Last 24 Hours up to 6 AM 08/04/16 06:00 Intake Total 1880 ml Output Total 1140 ml Balance 740 ml Laboratory Data 24H LABS Laboratory Tests 2 08/03/16 05:11: Blood Urea Nitrogen 30H, Creatinine 1.22H, Sodium Level 140, Potassium Level 4.1 , Chloride Level 106, Carbon Dioxide Level 25, Calcium Level 8.0L, Aspartate Amino Transf (AST/SGOT) 22, Alanine Aminotransferase (ALT/SGPT) 30, Alkaline Phosphatase 58, Total Bilirubin 0.4, Total Protein 4.9L, Albumin 2.3L, Albumin/ Globulin Ratio 0.88L, Anion Gap 9, White Blood Count 11.0H, Red Blood Count 4.54 , Hemoglobin 12.1, Hematocrit 36.4, Mean Corpuscular Volume 80.1, Mean Corpuscular Hemoglobin 26.7L, Mean Corpuscular Hemoglobin Concent 33.4, Red Cell Distribution Width 15.1H, Platelet Count 262, Neutrophils (%) (Auto) 86.1H , Lymphocytes (%) (Auto) 8.9L, Monocytes (%) (Auto) 3.9, Eosinophils (%) (Auto) 0.4, Basophils (%) (Auto) 0.1, Neutrophils # (Auto) 9.5H, Lymphocytes # (Auto) 1.0L, Monocytes # (Auto) 0.4, Eosinophils # (Auto) 0.0, Basophils # (Auto) 0.0, Glomerular Filtration Rate 46.5, Large Unclassified Cells # 0.1, Large Unclassified Cells % 0.5, Magnesium Level 2.4 08/03/16 11:26: Bedside Glucose (Misc Panel) 60L 08/03/16 17:03: Bedside Glucose (Misc Panel) 171H CBC/BMP Laboratory Tests 08/03/16 05:11 Calcium Level 8.0 L, Aspartate Amino Transf (AST/SGOT) 22, Alanine Aminotransferase (ALT/SGPT) 30, Alkaline Phosphatase 58, Total Bilirubin 0.4, Total Protein 4.9 L, Albumin 2.3 L, Red Blood Count 4.54, Mean Corpuscular Volume 80.1, Mean Corpuscular Hemoglobin 26.7 L, Mean Corpuscular Hemoglobin Concent 33.4, Red Cell Distribution Width 15.1 H, Neutrophils (%) (Auto) 86.1 H , Lymphocytes (%) (Auto) 8.9 L, Monocytes (%) (Auto) 3.9, Eosinophils (%) (Auto ) 0.4, Basophils (%) (Auto) 0.1, Neutrophils # (Auto) 9.5 H, Lymphocytes # (Auto ) 1.0 L, Monocytes # (Auto) 0.4, Eosinophils # (Auto) 0.0, Basophils # (Auto) 0.0 Microbiology Microbiology 08/01/16 Blood Culture - Preliminary, Resulted No Growth after 48 hours. All Specime... 08/01/16 Blood Culture - Preliminary, Resulted No Growth after 48 hours. All Specime... 08/01/16 Gram Stain - Final, Resulted 08/01/16 Sputum Culture, Resulted Pending 08/01/16 Influenza Virus Type A Antigen - Final, Complete 08/01/16 Influenza Virus Type B Antigen - Final, Complete NOHELIA DUFFY DO Aug 04, 2016 00:17
[2016-08-04] MEDS: IPRATROPIUM 0.5MG/ALBUTEROL 2.5MG INH SOL UD 3ML (DUONEB)(J7620) NEB SCH ×4 (01:50→20:46)
[2016-08-04] MEDS: IPRATROPIUM 0.5MG/ALBUTEROL 2.5MG INH SOL UD 3ML (DUONEB)(J7620) NEB PRN (04:07)
[2016-08-04 05:39] LABS: ALBUMIN 2.4 GM/DL (3.2-5.2); ALBUMIN/GLOBULIN RATIO 0.83 (1.00-1.93); BILIRUBIN,TOTAL 0.4 MG/DL (0.2-1.0); CREATININE FOR GFR 1.2 MG/DL (0.55-1.02); GLOMERULAR FILTRATION RATE 47.4 (>45); MAGNESIUM LEVEL 2.1 MG/DL (1.8-2.4); POTASSIUM SERUM 3.9 MEQ/L (3.5-5.1); TOTAL PROTEIN 5.3 GM/DL (6.4-8.2)
[2016-08-04 05:50] LABS: BASO # 0.1 K/mm3 (0.0-0.2); BASO % 0.4 % (0.0-1.0); EOS # 0.1 K/mm3 (0.0-0.50); EOS % 0.9 % (0.0-3.0); LARGE UNSTAINED CELL # 0.1 K/mm3 (0.0-0.4); LARGE UNSTAINED CELL % 0.7 % (0.0-4.0); LYMPH # 2.4 K/mm3 (1.5-4.5); LYMPH % 18.2 % (24.0-44.0); MEAN CORPUSCULAR HGB CONC 33.2 g/dl (32.0-36.5); MEAN CORPUSCULAR VOLUME 81.3 fl (80.0-96.0); MONO # 0.5 K/mm3 (0.0-0.8); NEUTROPHILS # 9.8 K/mm3 (1.8-7.7); NEUTROPHILS % 75.7 % (36.0-66.0); PLATELET COUNT, AUTOMATED 301 k/mm3 (150-450); RED CELL DISTRIBUTION WIDTH 15.2 % (11.5-14.5); WHITE BLOOD COUNT 12.9 K/mm3 (4.0-10.0)
[2016-08-04] MEDS: LEVOTHYROXINE 0.1 MG TAB (100 MCG) PO SCH (06:36)
[2016-08-04] MEDS: HumaLOG INSULIN (NovoLOG) PER UNIT SC SCH ×4 (07:30→20:30)
[2016-08-04] MEDS: LEVEMIR (INSULIN DETEMIR) 1 UNITS/0.01ML SC SCH ×2 (08:32→20:31)
[2016-08-04] MEDS: NYSTATIN 500,000 U/5 ML SUSP UDC SS SCH ×2 (08:35→20:31)
[2016-08-04] MEDS: methylPREDNISolone 4 MG TAB PO SCH (08:35)
[2016-08-04] MEDS: FLUTICASONE PROP 0.05% NASAL SPRAY 16 GM (FLONASE) SCH (08:35)
[2016-08-04] MEDS: SPIRONOLACTONE 25 MG TAB PO SCH (08:35)
[2016-08-04] MEDS: APIXABAN 5 MG TAB (ELIQUIS) PO SCH ×2 (08:36→20:31)
[2016-08-04] MEDS: OMEPRAZOLE 20 MG CAP PO SCH (08:36)
--- NOTE | 2016-08-04 08:45 | IPNPDOC ---
Subjective Date Seen The patient was seen on 08/04/16. Subjective Chief Complaint/HPI The patient is a 71-year-old female admitted with a reason for visit of Shortness Of Breath. Events since last encounter c/o GALLEGOS, weakness, fatigue. non-compliant with CPAP at rest hours. uses overnight for sleep. hypoglycemia noted yesterday at lunch time and this am. Constitutional: Reports: Fatigue, Weakness, Denies: Chills, Fever, Night Sweats Skin: Denies: Breakdown, Lesions, Rash Pulmonary: Denies: Cough, Dyspnea Cardiovascular: Denies: Chest Pain, Lt Headedness, Orthopnea, Palpitations, Paroxysmal Noc. Dyspnea Gastrointestinal: Denies: Abdominal Pain, Constipation, Diarrhea, Nausea, Vomiting Genitourinary: Denies: Dysuria, Frequency, Incontinence, Retention Psych: Reports: Mood Normal, Denies: Depression, Memory Issues Objective Physical Examination General Exam: Positive: Alert, No Acute Distress Eye Exam: Positive: Conjunctiva & lids normal, EOMI, PERRLA, Negative: Sclera icteric Neck Exam: Positive: Supple, Negative: JVD, thyromegaly Chest Exam: Positive: Clear to auscultation, Normal air movement Heart Exam: Positive: Normal S1, Normal S2, Rate Normal Telemetry: Positive: No significant arrhythmia Abdomen Exam: Positive: Normal bowel sounds, Soft, Negative: Hepatospenomegaly, Tenderness Psych Exam: Positive: Mental status NL, Mood NL, Oriented x 3 Assessment /Plan Problems (1) Atrial fibrillation with RVR Status: Resolved Problem Text: Metoprolol 25 mg po q 6 hrs. Parameters to HOLD were placed in orders. Monitor. EKG: Afib with RVR: 153 08/03: Remains in sinus 08/04/2016: rate improved, NSR. Continue Lopressor. (2) Pulmonary fibrosis Status: Acute Problem Specific Plan: Consult Specialist Problem Text: Consult Pulmonology. has been on several bouts of steroids. CT shows worsening fibrosis. Was thought to be related to Amiodarone. Has been off of Amiodarone for approximately 8 weeks. (3) Hypoxia Status: Acute Problem Text: 3-4 LNC on non-oxygen dependent female. sats maintained 90-94% 08/03: We have not been able to wean off at this time. 08/04/2016: continue to attempt wean. Pulm following, managing methylprednisone dosing. (4) Lactic acid acidosis Status: Acute Response to Treatment: Improving Problem Text: repeat lactic acid normal. (5) CKD (chronic kidney disease) stage 3, GFR 30-59 ml/min Status: Chronic (6) HTN (hypertension) Status: Chronic Response to Treatment: Stable (7) Anxiety Status: Chronic Response to Treatment: Stable (8) GERD (gastroesophageal reflux disease) Status: Chronic Response to Treatment: Stable (9) Hyperlipidemia Status: Chronic Response to Treatment: Stable (10) T2DM (type 2 diabetes mellitus) Status: Chronic Response to Treatment: Stable Problem Text: HOLD Levemir this am due to hypoglycemia (11) DEVEN on CPAP Status: Chronic Problem Text: Did not use CPAP last night. Encouraged to use while sleeping. (12) Hypothyroidism (acquired) Status: Chronic Problem Text: TSH 0.3 with elevated T3. Dosing decreased to 100 mcg from 125 mcg. Plan/VTE VTE Prophylaxis Ordered?: Yes (Eliquis) Plan Attending note: I saw and evaluated the patient, and I agree with the plan of care as discussed and documented above. Will continue high-dose steroids per pulmonary recommendations. Patient's sputum culture came back positive for GPC's in clusters and chains, and gram-negative rods. Dr. Whitehead felt that continued empiric treatment on ceftriaxone and azithromycin was appropriate until cultures show the strains. Patient has not spiked a fever, and is not decompensating. Patient's family is very concerned that the patient has been hospitalized so frequently, and would like an outpatient referral to pulmonology in [place] for a second opinion. I indicated that I would submit this through [facility]. The patient also needs titration of her CPAP. I will see of respiratory is able to address this. Chad Betancourt MD VS, I&O, 24H, [facility] Vital Signs/I&O Vital Signs Date Time Temp Pulse Resp B/P Pulse Ox O2 Delivery O2 Flow Rate FiO2 08/04/16 06:36 91 136/66 08/04/16 04:17 Nasal Cannula 2.0 08/04/16 04:00 96.9 20 93 I&O- Last 24 Hours up to 6 AM 08/04/16 06:00 Intake Total 1880 ml Output Total 2065 ml Balance -185 ml Laboratory Data 24H LABS Laboratory Tests 2 08/03/16 11:26: Bedside Glucose (Misc Panel) 60L 08/03/16 17:03: Bedside Glucose (Misc Panel) 171H 08/03/16 22:20: Bedside Glucose (Misc Panel) 242H 08/04/16 05:06: Blood Urea Nitrogen 29H, Creatinine 1.20H, Sodium Level 141, Potassium Level 3.9 , Chloride Level 107, Carbon Dioxide Level 26, Calcium Level 8.0L, Aspartate Amino Transf (AST/SGOT) 25, Alanine Aminotransferase (ALT/SGPT) 34, Alkaline Phosphatase 64, Total Bilirubin 0.4, Total Protein 5.3L, Albumin 2.4L, Albumin/ Globulin Ratio 0.83L, Anion Gap 8, White Blood Count 12.9H, Red Blood Count 4.91 , Hemoglobin 13.3, Hematocrit 39.9, Mean Corpuscular Volume 81.3, Mean Corpuscular Hemoglobin 27.0, Mean Corpuscular Hemoglobin Concent 33.2, Red Cell Distribution Width 15.2H, Platelet Count 301, Neutrophils (%) (Auto) 75.7H, Lymphocytes (%) (Auto) 18.2L, Monocytes (%) (Auto) 4.0, Eosinophils (%) (Auto) 0.9, Basophils (%) (Auto) 0.4, Neutrophils # (Auto) 9.8H, Lymphocytes # (Auto) 2.4, Monocytes # (Auto) 0.5, Eosinophils # (Auto) 0.1, Basophils # (Auto) 0.1, Glomerular Filtration Rate 47.4, Large Unclassified Cells # 0.1, Large Unclassified Cells % 0.7, Magnesium Level 2.1 CBC/BMP Laboratory Tests 08/04/16 05:06 Calcium Level 8.0 L, Aspartate Amino Transf (AST/SGOT) 25, Alanine Aminotransferase (ALT/SGPT) 34, Alkaline Phosphatase 64, Total Bilirubin 0.4, Total Protein 5.3 L, Albumin 2.4 L, Red Blood Count 4.91, Mean Corpuscular Volume 81.3, Mean Corpuscular Hemoglobin 27.0, Mean Corpuscular Hemoglobin Concent 33.2, Red Cell Distribution Width 15.2 H, Neutrophils (%) (Auto) 75.7 H , Lymphocytes (%) (Auto) 18.2 L, Monocytes (%) (Auto) 4.0, Eosinophils (%) (Auto ) 0.9, Basophils (%) (Auto) 0.4, Neutrophils # (Auto) 9.8 H, Lymphocytes # (Auto ) 2.4, Monocytes # (Auto) 0.5, Eosinophils # (Auto) 0.1, Basophils # (Auto) 0.1 Microbiology Microbiology 08/01/16 Blood Culture - Preliminary, Resulted No Growth after 48 hours. All Specime... 08/01/16 Blood Culture - Preliminary, Resulted No Growth after 48 hours. All Specime... 08/01/16 Gram Stain - Final, Resulted 08/01/16 Sputum Culture, Resulted Pending 08/01/16 Influenza Virus Type A Antigen - Final, Complete 08/01/16 Influenza Virus Type B Antigen - Final, Complete Guadalupe Pham Aug 04, 2016 08:45 CHAD BETANCOURT MD Aug 04, 2016 15:52
--- NOTE | 2016-08-04 11:10 | IPN ---
DATE: 08/04/2016 Mrs. Judy Vega was seen earlier this morning. She was sitting up in bed in no acute distress at rest. She continues to complain of shortness of breath and a cough. She denies any chest pain or palpitations. She was seen a couple of days ago after one episode of paroxysmal atrial fibrillation and she spontaneously converted to a normal sinus rhythm. Since then, she has been stable. She continues to have brief episodes of paroxysmal atrial fibrillation, but stable. She denies any chest pain or palpitations. There is no report of bleeding. There is no nausea, vomiting, diarrhea, or hematemesis. There is no focal manifestation. PHYSICAL EXAMINATION: The patient is alert, awake, and oriented. In no acute distress at rest. Her last vital signs this morning revealed a blood pressure of 119/57 with a pulse of 91, respirations 20, and her maximum temperature is 97.4 degrees Fahrenheit with an oxygen saturation of 97% on 2 liters nasal cannula. She has a positive fluid balance of only 215 mL for 08/03/2016. Her weight today is 92.1 and yesterday it was 91.8. HEAD: Normocephalic, atraumatic. NECK: Supple. No jugular venous distention (JVD) or carotid bruits. LUNGS: Reveal dry crackles but no wheezing. HEART: Normal S1, S2. Without gallops. The point of maximum impulse (PMI) is not displaced. There is no rub. I could not appreciate any murmurs. ABDOMEN: Soft and nontender. Bowel sounds are active. EXTREMITIES: Reveal trace bilateral pedal edema. NEUROLOGIC: Grossly is negative for focal deficit. LABORATORY DATA: CBC done today revealed a WBC of 4.9, hemoglobin 13.3, hematocrit 39.9 and platelets 301,000. BMP revealed a sodium of 141, potassium 3.9, chloride 107, CO2 of 26, BUN 29, creatinine 1.2, GFR 47.4, fasting glucose 47, and calcium 8.0, amylase is 2.1. Liver enzymes reveal a total bilirubin of 0.4, AST 25, ALT 34, alkaline phosphatase 64, total protein is 5.3, albumin 2.4. IMPRESSION: 1. Paroxysmal atrial fibrillation/flutter in this 71-year-old woman with a history of atrial fibrillation/flutter diagnosed in April 2015 with failed mechanical cardioversion. The patient had ablation done in March 2016. Currently in normal sinus rhythm with rare episodes of paroxysmal atrial fibrillation. She is back on her beta zuly and I will continue the same, she is tolerating it well. She is on anticoagulation therapy with Eliquis. She denies any bleeding. At this present time, there is no need to start any antiarrhythmic drugs. There is a concern that her interstitial lung disease may be related to previous exposure to amiodarone. She is being monitored by timber management specialist, Dr. Slade. 2. Shortness of breath, most likely related to her underlying lung disease. Her cardiac condition seems to be stable. 3. Hypertension, controlled. 4. History of hyperlipidemia. On a statin. 5. History of diabetes mellitus, being addressed. 6. Obesity and sleep apnea. On continuous positive airway pressure (CPAP). It was a pleasure to participate in the care of Mrs. Judy Vega for her underlying cardiac condition. Once again, she appears to be stable from a cardiac point of view. Dr. Rios will be covering starting today until Sunday evening. Please do not hesitate to call if there are any questions. JAQUAN
[2016-08-04] MEDS: NORCO, ANEXSIA 5/325MG TABLET (HYDROcodone/ACETAMINOPHEN) PO PRN (12:07)
[2016-08-04] MEDS: ATORVASTATIN 20 MG TAB PO SCH (20:31)
[2016-08-04] MEDS: AZITHROMYCIN 250 MG TAB PO SCH (20:31)
[2016-08-04] MEDS: cefTRIAXone SOD 1 GM in D5W MINI-BAG PLUS 50 ML IV SCH (20:32)
[2016-08-05] VITALS (10 sets, daily range): BP systolic 101–150; BP diastolic 49–73; O2SAT 96–97
[2016-08-05] MEDS: METOPROLOL TART 25 MG TABLET PO SCH ×5 (00:02→23:57)
[2016-08-05] MEDS: IPRATROPIUM 0.5MG/ALBUTEROL 2.5MG INH SOL UD 3ML (DUONEB)(J7620) NEB SCH ×4 (02:24→19:33)
[2016-08-05 05:33] LABS: BASO % 0.3 % (0.0-1.0); EOS % 0.5 % (0.0-3.0); LARGE UNSTAINED CELL # 0.1 K/mm3 (0.0-0.4); LARGE UNSTAINED CELL % 0.8 % (0.0-4.0); MEAN CORPUSCULAR HEMOGLOBIN 26.4 pg (27.0-33.0); MEAN CORPUSCULAR HGB CONC 32.2 g/dl (32.0-36.5); MEAN CORPUSCULAR VOLUME 82.2 fl (80.0-96.0); MONO # 0.5 K/mm3 (0.0-0.8); MONO % 4.7 % (0.0-5.0); NEUTROPHILS # 9.2 K/mm3 (1.8-7.7); NEUTROPHILS % 84.7 % (36.0-66.0); PLATELET COUNT, AUTOMATED 231 k/mm3 (150-450); RED CELL DISTRIBUTION WIDTH 15.1 % (11.5-14.5); WHITE BLOOD COUNT 10.9 K/mm3 (4.0-10.0)
[2016-08-05 05:48] LABS: ALBUMIN 2.4 GM/DL (3.2-5.2); ALBUMIN/GLOBULIN RATIO 0.83 (1.00-1.93); BILIRUBIN,TOTAL 0.4 MG/DL (0.2-1.0); CALCIUM LEVEL 8.4 MG/DL (8.8-10.2); CREATININE FOR GFR 1.38 MG/DL (0.55-1.02); GLOMERULAR FILTRATION RATE 40.4 (>45); MAGNESIUM LEVEL 2.2 MG/DL (1.8-2.4); POTASSIUM SERUM 4.4 MEQ/L (3.5-5.1); TOTAL PROTEIN 5.3 GM/DL (6.4-8.2)
[2016-08-05] MEDS: LEVOTHYROXINE 0.1 MG TAB (100 MCG) PO SCH (06:01)
[2016-08-05] MEDS: NYSTATIN 500,000 U/5 ML SUSP UDC SS SCH ×2 (08:15→20:49)
[2016-08-05] MEDS: OMEPRAZOLE 20 MG CAP PO SCH (08:16)
[2016-08-05] MEDS: APIXABAN 5 MG TAB (ELIQUIS) PO SCH ×2 (08:16→20:50)
[2016-08-05] MEDS: SPIRONOLACTONE 25 MG TAB PO SCH (08:16)
[2016-08-05] MEDS: methylPREDNISolone 4 MG TAB PO SCH (08:16)
[2016-08-05] MEDS: LEVEMIR (INSULIN DETEMIR) 1 UNITS/0.01ML SC SCH ×2 (08:17→20:49)
[2016-08-05] MEDS: HumaLOG INSULIN (NovoLOG) PER UNIT SC SCH ×4 (08:17→20:48)
[2016-08-05] MEDS: FLUTICASONE PROP 0.05% NASAL SPRAY 16 GM (FLONASE) SCH (08:18)
[2016-08-05] MEDS: ONDANSETRON 4 MG TAB (S0181) PO PRN (11:09)
--- NOTE | 2016-08-05 18:26 | IPN ---
DATE: 08/05/2016 SUBJECTIVE: Mrs. Vega is currently being treated for shortness of breath felt to be a mixture of chronic lung problems and congestive heart failure. This morning she is having a lot of nausea. She has not feel febrile. She has not vomited. She is not having any abdominal pain. She is still doing some coughing but she reports that she has raised some phlegm and the coughing is better and the phlegm was easy to raise which she feels is a positive for her. Not feeling dizzy or lightheaded. Shortness of breath is about the same. CURRENT MEDICATION REGIMEN: - azithromycin and Rocephin - fluticasone nasal spray - levothyroxine - omeprazole - spironolactone - Medrol by mouth at 12 mg daily - Humalog - metoprolol at a dose of 25 mg every six hours - Eliquis - atorvastatin - Levemir 30 units twice a day - Nystatin swish and swallow - albuterol with ipratropium every six hours and as needed - she has [place] available and - benzonatate for cough OBJECTIVE: VITAL SIGNS: On examination, her on temperature is 97.8, pulse earlier was 116, although I counted it at 92, that seems regular at this time, respirations are 18. GENERAL: She does not appear in any distress. She is awake and alert, is complaining of some nausea. HEENT: Her eyes were clear. Mouth and throat are unremarkable. NECK: Without any masses, tenderness or adenopathy. There are no carotid bruits. LUNGS: Show fibrotic sounding basilar rales. HEART: Has regular rhythm with a grade 2/6 systolic murmur at the aortic area. ABDOMEN: Soft, mildly tender in the epigastrium, protuberant. EXTREMITIES: There is some trace edema. LABORATORY DATA: Labs today show hemoglobin of 13.6, WBC 10,900. BUN 25, creatinine 1.38, potassium 4.1. ASSESSMENT: 1. Atrial fibrillation with rapid ventricular rate. The rate seems to be better at this time. 2. Pulmonary fibrosis, chronic. May have exacerbation related to congestive heart failure (CHF) or viral infection. 3. Hypoxia. She is on oxygen. 4. Chronic kidney disease. This appears to be stable. 5. Hypertension, stable. 6. Anxiety, stable. 7. Gastroesophageal reflux. 8. Hyperlipidemia. 9. Diabetes. 10. Obstructive sleep apnea. 11. Hypothyroidism. PLAN: The patient will continue on her current medication, I would be willing to bet that it is her oral macrolide medication that is upsetting her stomach. We will be giving her some Zofran and she should be getting her last dose of the macrolide at this time. There is a sputum culture coming back and only thing that showed was yeastlike organisms, even though there were gram-positive cocci in pairs, chains and rods on the Gram stain. I was told by Dr. Betancourt that the patient was requesting evaluation in [place] regarding her pulmonary issues. This apparently is in process but the person certainly does not need an acute transfer to another facility and that can be accomplished as an outpatient. I am also told that another recommendation for her respiratory issues is to do a much longer taper on her steroids when she does have an exacerbation. JAQUAN
[2016-08-05] MEDS: cefTRIAXone SOD 1 GM in D5W MINI-BAG PLUS 50 ML IV SCH (19:40)
[2016-08-05] MEDS: AZITHROMYCIN 250 MG TAB PO SCH (20:49)
[2016-08-05] MEDS: ATORVASTATIN 20 MG TAB PO SCH (20:49)
[2016-08-06] MEDS: IPRATROPIUM 0.5MG/ALBUTEROL 2.5MG INH SOL UD 3ML (DUONEB)(J7620) NEB SCH ×4 (01:36→20:07)
[2016-08-06 05:10] VITALS: BP 136/65
[2016-08-06] MEDS: LEVOTHYROXINE 0.1 MG TAB (100 MCG) PO SCH (05:27)
[2016-08-06] MEDS: METOPROLOL TART 25 MG TABLET PO SCH ×4 (05:27→23:43)
[2016-08-06 05:33] LABS: BASO % 0.3 % (0.0-1.0); EOS # 0.1 K/mm3 (0.0-0.50); EOS % 0.7 % (0.0-3.0); LARGE UNSTAINED CELL # 0.1 K/mm3 (0.0-0.4); LARGE UNSTAINED CELL % 0.5 % (0.0-4.0); LYMPH # 1.4 K/mm3 (1.5-4.5); LYMPH % 11.9 % (24.0-44.0); MEAN CORPUSCULAR HGB CONC 33.1 g/dl (32.0-36.5); MEAN CORPUSCULAR VOLUME 81.6 fl (80.0-96.0); MONO # 0.4 K/mm3 (0.0-0.8); MONO % 3.6 % (0.0-5.0); NEUTROPHILS # 10.1 K/mm3 (1.8-7.7); PLATELET COUNT, AUTOMATED 224 k/mm3 (150-450); RED CELL DISTRIBUTION WIDTH 15.5 % (11.5-14.5); WHITE BLOOD COUNT 12.2 K/mm3 (4.0-10.0)
[2016-08-06 05:51] LABS: ALBUMIN 2.2 GM/DL (3.2-5.2); ALBUMIN/GLOBULIN RATIO 0.76 (1.00-1.93); BILIRUBIN,TOTAL 0.5 MG/DL (0.2-1.0); CALCIUM LEVEL 7.9 MG/DL (8.8-10.2); CREATININE FOR GFR 1.42 MG/DL (0.55-1.02); MAGNESIUM LEVEL 1.9 MG/DL (1.8-2.4); POTASSIUM SERUM 4.4 MEQ/L (3.5-5.1); TOTAL PROTEIN 5.1 GM/DL (6.4-8.2)
[2016-08-06] MEDS: HumaLOG INSULIN (NovoLOG) PER UNIT SC SCH ×3 (07:14→17:35)
[2016-08-06 08:00] VITALS: BP 126/65
[2016-08-06] MEDS: NYSTATIN 500,000 U/5 ML SUSP UDC SS SCH ×2 (09:12→21:00)
[2016-08-06] MEDS: APIXABAN 5 MG TAB (ELIQUIS) PO SCH ×2 (09:12→21:00)
[2016-08-06] MEDS: SPIRONOLACTONE 25 MG TAB PO SCH (09:12)
[2016-08-06] MEDS: methylPREDNISolone 4 MG TAB PO SCH (09:12)
[2016-08-06] MEDS: OMEPRAZOLE 20 MG CAP PO SCH (09:12)
[2016-08-06] MEDS: LEVEMIR (INSULIN DETEMIR) 1 UNITS/0.01ML SC SCH (09:13)
[2016-08-06] MEDS: FLUTICASONE PROP 0.05% NASAL SPRAY 16 GM (FLONASE) SCH (09:13)
[2016-08-06 12:00] VITALS: BP 128/62
[2016-08-06] MEDS: FUROSEMIDE 20 MG TAB PO SCH (12:51)
--- NOTE | 2016-08-06 14:35 | REP ---
Hypoxia. COMPARISON: 08/01/2016 Scattered airspace opacities are seen bilaterally, right greater than left and representing a significant change from the prior exam. The technique utilized in obtaining the radiograph has magnified the cardiac silhouette and accentuated the interstitial markings. The cardiomediastinal silhouette is unchanged. There is no change in the osseous structures. IMPRESSION: Pulmonary edema versus pneumonia. Correlate clinically. Signed by Hiren Dwyer DO 08/06/2016 03:24 P
[2016-08-06 16:00] VITALS: BP 133/83
[2016-08-06 20:00] VITALS: BP 117/57
[2016-08-06] MEDS: cefTRIAXone SOD 1 GM in D5W MINI-BAG PLUS 50 ML IV SCH (20:03)
[2016-08-06] MEDS ORDERED: LEVEMIR (INSULIN DETEMIR) 1 UNITS/0.01ML SC SCH (21:00)
[2016-08-06] MEDS: AZITHROMYCIN 250 MG TAB PO SCH (21:00)
[2016-08-06] MEDS: ATORVASTATIN 20 MG TAB PO SCH (21:01)
[2016-08-06] MEDS: NORCO, ANEXSIA 5/325MG TABLET (HYDROcodone/ACETAMINOPHEN) PO PRN (23:43)
[2016-08-07] VITALS (8 sets, daily range): BP systolic 104–146; BP diastolic 52–66
[2016-08-07] MEDS: IPRATROPIUM 0.5MG/ALBUTEROL 2.5MG INH SOL UD 3ML (DUONEB)(J7620) NEB SCH ×4 (01:53→20:51)
[2016-08-07] MEDS: LEVOTHYROXINE 0.1 MG TAB (100 MCG) PO SCH (06:17)
[2016-08-07] MEDS: METOPROLOL TART 25 MG TABLET PO SCH ×4 (06:17→23:48)
[2016-08-07 06:43] LABS: BASO % 0.3 % (0.0-1.0); EOS # 0.1 K/mm3 (0.0-0.50); EOS % 0.6 % (0.0-3.0); LARGE UNSTAINED CELL # 0.1 K/mm3 (0.0-0.4); LARGE UNSTAINED CELL % 0.5 % (0.0-4.0); MEAN CORPUSCULAR HEMOGLOBIN 27.4 pg (27.0-33.0); MEAN CORPUSCULAR VOLUME 83.1 fl (80.0-96.0); MONO # 0.4 K/mm3 (0.0-0.8); MONO % 3.2 % (0.0-5.0); NEUTROPHILS % 87.5 % (36.0-66.0); PLATELET COUNT, AUTOMATED 205 k/mm3 (150-450); RED CELL DISTRIBUTION WIDTH 15.5 % (11.5-14.5); WHITE BLOOD COUNT 12.6 K/mm3 (4.0-10.0)
--- NOTE | 2016-08-07 06:44 | REP ---
REASON: Increasing hypoxia. COMPARISON: 08/01/2016. The mediastinum and pulmonary kailyn are unchanged when the technical differences between the examinations are taken into consideration. There are no pleural or pericardial effusions. There is no change in the imaged upper abdomen or imaged osseous structures. Evaluation of the lung [place] again show scattered patchy and ground glass opacities which have increased particularly in the upper lobe region bilaterally. IMPRESSION: Worsening air space disease. Pneumonia is suspected but needs to be correlated clinically. Signed by Hiren Dwyer DO 08/07/2016 03:40 P
[2016-08-07] MEDS: HumaLOG INSULIN (NovoLOG) PER UNIT SC SCH ×3 (07:05→17:42)
[2016-08-07 07:14] LABS: ALBUMIN 2.2 GM/DL (3.2-5.2); ALBUMIN/GLOBULIN RATIO 0.71 (1.00-1.93); BILIRUBIN,TOTAL 0.6 MG/DL (0.2-1.0); CALCIUM LEVEL 8.2 MG/DL (8.8-10.2); CREATININE FOR GFR 1.74 MG/DL (0.55-1.02); GLOMERULAR FILTRATION RATE 30.9 (>45); MAGNESIUM LEVEL 2.1 MG/DL (1.8-2.4); POTASSIUM SERUM 3.9 MEQ/L (3.5-5.1); TOTAL PROTEIN 5.3 GM/DL (6.4-8.2)
[2016-08-07] MEDS: FUROSEMIDE 20 MG TAB PO SCH (09:16)
[2016-08-07] MEDS: APIXABAN 5 MG TAB (ELIQUIS) PO SCH ×2 (09:16→21:27)
[2016-08-07] MEDS: methylPREDNISolone 4 MG TAB PO SCH (09:16)
[2016-08-07] MEDS: LEVEMIR (INSULIN DETEMIR) 1 UNITS/0.01ML SC SCH ×2 (09:17→21:27)
[2016-08-07] MEDS: SPIRONOLACTONE 25 MG TAB PO SCH (09:17)
[2016-08-07] MEDS: OMEPRAZOLE 20 MG CAP PO SCH (09:17)
[2016-08-07] MEDS: NYSTATIN 500,000 U/5 ML SUSP UDC SS SCH ×2 (09:17→21:27)
[2016-08-07] MEDS: FLUTICASONE PROP 0.05% NASAL SPRAY 16 GM (FLONASE) SCH (09:18)
--- NOTE | 2016-08-07 10:10 | IPN ---
DATE: 08/06/2016 Ms. Vega is seen today on PCU. She reports that she has had some more dyspnea during the last 24 hours. Her nausea, however has improved. She occasionally has some coughing. She has been found to be hypoxic today requiring oxygen bled into her BiPAP as well as when she is not using the BiPAP, using nasal oxygen. She does not use oxygen at home. She has not been febrile. She also has some hypoglycemia this morning. CURRENT MEDICATION REGIMEN: Includes: - Levemir 30 units twice a day - She has sliding scale Humalog before meals and at bedtime. - She is on p.r.n. Zofran. - She is on azithromycin. - fluticasone nasal spray - levothyroxine - Prilosec - spironolactone - methylprednisolone dose of 12 mg daily - metoprolol 25 mg twice a day - Eliquis 5 mg daily - atorvastatin 40 mg daily - Nystatin swish and swallow twice a day. - She is on four times a day DuoNebs - ceftriaxone - p.r.n. albuterol - benzonatate p.r.n. - [place] p.r.n. On examination, her temperature is 97.3, blood pressure 126/65, pulse 107, respirations 102. She actually looks quite a bit more comfortable than yesterday. Her lungs sound clear today. Heart has slightly irregular rhythm without any murmur, click or gallop. Abdomen: Soft and nontender. There is no edema. Labs today show hemoglobin of 13.2, white count 12,200, BUN 25, creatinine 1.42, her blood sugar this morning had been 50, potassium was 4.4. ASSESSMENT: 1. Atrial fibrillation with rapid rate. She still is holding a rate in the low 100s. 2. Pulmonary fibrosis, chronic, may have exacerbation related to congestive heart failure or viral infection, hypoxia, this is a problem that is worse than usual for her. 3. Chronic kidney disease, stable. 4. Hypertension stable. 5. Anxiety, stable. 6. Gastroesophageal reflux. 7. Hyperlipidemia. 8. Diabetes with hypoglycemia. 9. Obstructive sleep apnea. 10. Hypothyroidism. The patient seems to be upset regarding her current need for oxygen when she did not need it at home. I agree with her that clearly there is something different going on although she has both cardiac and pulmonary problems and may or may not have issues with acute viral respiratory infection. Fortunately her nausea is resolved. I think at this time, reasonable course of action would be to recheck her chest x-ray, put her on some additional diuretic medication, consider increasing her prednisone and discussing her care with the optical brightener maker helper. JAQUAN
--- NOTE | 2016-08-07 13:52 | IPNPDOC ---
Subjective Date Seen The patient was seen on 08/07/16. Subjective Chief Complaint/HPI The patient is a 71-year-old female admitted with a reason for visit of Shortness Of Breath. Events since last encounter Ms. Vega is frustrated this morning with her ongoing oxygen requirement. Constitutional: Denies: Chills, Fever ENT: Denies: Head Aches Skin: Denies: Rash Pulmonary: Reports: Cough, Dyspnea Cardiovascular: Denies: Chest Pain, Orthopnea, Palpitations Gastrointestinal: Denies: Abdominal Pain, Constipation, Diarrhea, Nausea, Vomiting Neurological: Denies: Numbness, Weakness Objective Physical Examination General Exam: Positive: Alert, No Acute Distress Eye Exam: Positive: Conjunctiva & lids normal, EOMI, PERRLA, Negative: Sclera icteric Neck Exam: Positive: Supple, Negative: JVD, thyromegaly Chest Exam: Positive: Diminished (throughout), Rales (bilateral bases), Rhonchi (diffuse) Heart Exam: Positive: Normal S1, Normal S2, Rate Normal Telemetry: Positive: No significant arrhythmia Abdomen Exam: Positive: Normal bowel sounds, Soft, Negative: Hepatospenomegaly, Tenderness Extremity Exam: Negative: Cyanosis, Edema Psych Exam: Positive: Mental status NL, Mood NL, Oriented x 3 Assessment /Plan Problems (1) Hypoxia Status: Acute Problem Text: 3-4 L/min via NC on non-oxygen dependent female. Sats maintained 90-94%, but desaturates at times to 70s with activity. We have been unable to wean her off of O2. CT chest shows worsening ground glass opacities in bases, which could be worsening pulmonary fibrosis. D/w Pulm - they are continuing methylprednisolone and ordered labwork to work up connective tissue disease. May need to consider an open lung biopsy, but I d/w patient that even a biopsy may not give us a clear diagnosis. She wants to see Pulm in [place] - I d/w her that if she stablizes on O2, we may need to discharge her home on O2 and arrange outpatient followup with Pulm at a tertiary center. (2) Pulmonary fibrosis Status: Chronic Problem Specific Plan: Consult Specialist Problem Text: Pulmonology following. Has been on several bouts of steroids, and in the past had improvement with steroids but has been persistently hypoxic on steroids here. CT shows worsening fibrosis. Was thought to be related to Amiodarone, however her testing coordinator noted that she had pulmonary fibrosis on a CT scan prior to starting Amiodarone. Has been off of Amiodarone for approximately 8 weeks. (3) Atrial fibrillation with RVR Status: Resolved Problem Text: Metoprolol 25 mg po q 6 hrs. Parameters to HOLD were placed in orders. Monitor. EKG: Afib with RVR: 153 08/03: Remains in sinus 08/04/2016: rate improved, NSR. Continue Lopressor. (4) Lactic acid acidosis Status: Resolved Response to Treatment: Improving Problem Text: repeat lactic acid normal. (5) CKD (chronic kidney disease) stage 3, GFR 30-59 ml/min Status: Chronic Problem Text: Cr a bit worse today, likely due to furosemide given yesterday and today - will d/c furosemide. (6) HTN (hypertension) Status: Chronic Response to Treatment: Stable (7) Anxiety Status: Chronic Response to Treatment: Stable (8) GERD (gastroesophageal reflux disease) Status: Chronic Response to Treatment: Stable (9) Hyperlipidemia Status: Chronic Response to Treatment: Stable (10) T2DM (type 2 diabetes mellitus) Status: Chronic Response to Treatment: Stable Problem Text: HOLD Levemir this am due to hypoglycemia (11) DEVEN on CPAP Status: Chronic Problem Text: Did not use CPAP last night. Encouraged to use while sleeping. (12) Hypothyroidism (acquired) Status: Chronic Problem Text: TSH 0.3 with elevated T3 upon admission. Dosing decreased to 100 mcg from 125 mcg. Plan/VTE VTE Prophylaxis Ordered?: Yes (Eliquis) VS, I&O, 24H, Fishbone Vital Signs/I&O Vital Signs Date Time Temp Pulse Resp B/P Pulse Ox O2 Delivery O2 Flow Rate FiO2 08/07/16 12:06 102 136/66 08/07/16 12:00 96.8 18 97 Room Air 08/07/16 08:00 2.0 I&O- Last 24 Hours up to 6 AM 08/07/16 06:00 Intake Total 1290 ml Output Total 1750 ml Balance -460 ml Laboratory Data 24H LABS Laboratory Tests 2 08/06/16 17:18: Bedside Glucose (Misc Panel) 267H 08/06/16 20:58: Bedside Glucose (Misc Panel) 293H 08/07/16 04:44: Bedside Glucose (Misc Panel) 48L 08/07/16 05:16: Bedside Glucose (Misc Panel) 76L 08/07/16 06:25: Blood Urea Nitrogen 29H, Creatinine 1.74H, Sodium Level 138, Potassium Level 3.9 , Chloride Level 101, Carbon Dioxide Level 26, Calcium Level 8.2L, Aspartate Amino Transf (AST/SGOT) 40H, Alanine Aminotransferase (ALT/SGPT) 38, Alkaline Phosphatase 78, Total Bilirubin 0.6, Total Protein 5.3L, Albumin 2.2L, Albumin/ Globulin Ratio 0.71L, Anion Gap 11, B-Type Natriuretic Peptide 108H, White Blood Count 12.6H, Red Blood Count 4.86, Hemoglobin 13.3, Hematocrit 40.4, Mean Corpuscular Volume 83.1, Mean Corpuscular Hemoglobin 27.4, Mean Corpuscular Hemoglobin Concent 33.0, Red Cell Distribution Width 15.5H, Platelet Count 205, Neutrophils (%) (Auto) 87.5H, Lymphocytes (%) (Auto) 8.0L, Monocytes (%) (Auto) 3.2, Eosinophils (%) (Auto) 0.6, Basophils (%) (Auto) 0.3, Neutrophils # (Auto) 11.0H, Lymphocytes # (Auto) 1.0L, Monocytes # (Auto) 0.4, Eosinophils # (Auto) 0.1, Basophils # (Auto) 0.0, Glomerular Filtration Rate 30.9L, Large Unclassified Cells # 0.1, Large Unclassified Cells % 0.5, Magnesium Level 2.1 08/07/16 12:22: C-Reactive Protein, Quantitative 2.13H, Erythrocyte Sedimentation Rate 18, Rheumatoid Factor < 10.0 CBC/BMP Laboratory Tests 08/07/16 06:25 Calcium Level 8.2 L, Aspartate Amino Transf (AST/SGOT) 40 H, Alanine Aminotransferase (ALT/SGPT) 38, Alkaline Phosphatase 78, Total Bilirubin 0.6, Total Protein 5.3 L, Albumin 2.2 L, Red Blood Count 4.86, Mean Corpuscular Volume 83.1, Mean Corpuscular Hemoglobin 27.4, Mean Corpuscular Hemoglobin Concent 33.0, Red Cell Distribution Width 15.5 H, Neutrophils (%) (Auto) 87.5 H , Lymphocytes (%) (Auto) 8.0 L, Monocytes (%) (Auto) 3.2, Eosinophils (%) (Auto ) 0.6, Basophils (%) (Auto) 0.3, Neutrophils # (Auto) 11.0 H, Lymphocytes # ( Auto) 1.0 L, Monocytes # (Auto) 0.4, Eosinophils # (Auto) 0.1, Basophils # (Auto ) 0.0 Microbiology Microbiology 08/01/16 Blood Culture - Final, Complete NO GROWTH AFTER 5 DAYS 08/01/16 Blood Culture - Final, Complete NO GROWTH AFTER 5 DAYS 08/01/16 Gram Stain - Final, Complete 08/01/16 Sputum Culture - Final, Complete Yeast Like Organism 08/01/16 Influenza Virus Type A Antigen - Final, Complete 08/01/16 Influenza Virus Type B Antigen - Final, Complete ALBERTO KEITA MD Aug 07, 2016 13:52
--- NOTE | 2016-08-07 20:44 | IPN ---
DATE: 08/06/2016 ADDENDUM: The patient's family wanted to talk to me about her current situation and where we stand, what the plan is, and that sort of thing. This morning, we had given her a dose of Lasix and whether by coincidence or as a result, she does feel her breathing is better this afternoon. I was able to speak with Dr. Whitehead earlier today, and Dr. Whitehead is quite familiar with Mrs. Vega's clinical situation. I let the family know this. We reviewed her previous CT scans and reviewed today's x-ray. Today's x-ray does show a certain amount of fluffiness in the lower lobes that was not present earlier this week. I indicated to the family, the patient and her that there can be contribution from her cardiac disease as well as from her more chronic fibrotic state as well as some fluctuating inflammatory component. I let them know that it was Dr. Whitehead' s recommendation that we do a new CT of her chest to see what had changed since the one last month and to help us decide whether we need to do any additional treatment and also raised the issue that maybe a lung biopsy was in her future in order to come up with some sort of pathologic diagnosis for her increased hypoxia and fluctuating imaging. They were quite receptive and I think more appreciative with the time that I spent, as was the patient. The patient is now off to have her CT. JAQUAN
[2016-08-07] MEDS: cefTRIAXone SOD 1 GM in D5W MINI-BAG PLUS 50 ML IV SCH (21:27)
[2016-08-07] MEDS: AZITHROMYCIN 250 MG TAB PO SCH (21:27)
[2016-08-07] MEDS: ATORVASTATIN 20 MG TAB PO SCH (21:27)
[2016-08-08] MEDS: NORCO, ANEXSIA 5/325MG TABLET (HYDROcodone/ACETAMINOPHEN) PO PRN (01:24)
[2016-08-08] MEDS: IPRATROPIUM 0.5MG/ALBUTEROL 2.5MG INH SOL UD 3ML (DUONEB)(J7620) NEB SCH ×4 (02:04→19:52)
[2016-08-08 05:09] VITALS: BP 107/55
[2016-08-08] MEDS: IPRATROPIUM 0.5MG/ALBUTEROL 2.5MG INH SOL UD 3ML (DUONEB)(J7620) NEB PRN (05:23)
[2016-08-08 05:25] LABS: BASO % 0.2 % (0.0-1.0); EOS # 0.1 K/mm3 (0.0-0.50); EOS % 0.6 % (0.0-3.0); LARGE UNSTAINED CELL # 0.1 K/mm3 (0.0-0.4); LARGE UNSTAINED CELL % 0.7 % (0.0-4.0); LYMPH # 1.6 K/mm3 (1.5-4.5); LYMPH % 12.9 % (24.0-44.0); MEAN CORPUSCULAR HEMOGLOBIN 26.6 pg (27.0-33.0); MEAN CORPUSCULAR HGB CONC 32.6 g/dl (32.0-36.5); MEAN CORPUSCULAR VOLUME 81.8 fl (80.0-96.0); MONO # 0.5 K/mm3 (0.0-0.8); MONO % 3.8 % (0.0-5.0); NEUTROPHILS # 10.4 K/mm3 (1.8-7.7); NEUTROPHILS % 81.8 % (36.0-66.0); PLATELET COUNT, AUTOMATED 211 k/mm3 (150-450); RED CELL DISTRIBUTION WIDTH 15.4 % (11.5-14.5); WHITE BLOOD COUNT 12.7 K/mm3 (4.0-10.0)
[2016-08-08 05:47] LABS: ALBUMIN 2.2 GM/DL (3.2-5.2); ALBUMIN/GLOBULIN RATIO 0.73 (1.00-1.93); BILIRUBIN,TOTAL 0.4 MG/DL (0.2-1.0); CALCIUM LEVEL 7.9 MG/DL (8.8-10.2); CREATININE FOR GFR 1.83 MG/DL (0.55-1.02); GLOMERULAR FILTRATION RATE 29.1 (>45); MAGNESIUM LEVEL 1.9 MG/DL (1.8-2.4); POTASSIUM SERUM 4.4 MEQ/L (3.5-5.1); TOTAL PROTEIN 5.2 GM/DL (6.4-8.2)
[2016-08-08] MEDS: METOPROLOL TART 25 MG TABLET PO SCH ×4 (05:49→23:26)
[2016-08-08] MEDS: LEVOTHYROXINE 0.1 MG TAB (100 MCG) PO SCH (05:49)
[2016-08-08 08:00] VITALS: BP 105/56
[2016-08-08] MEDS: LEVEMIR (INSULIN DETEMIR) 1 UNITS/0.01ML SC SCH ×2 (08:34→20:40)
[2016-08-08] MEDS: HumaLOG INSULIN (NovoLOG) PER UNIT SC SCH ×3 (08:34→17:01)
[2016-08-08] MEDS: NYSTATIN 500,000 U/5 ML SUSP UDC SS SCH (08:35)
[2016-08-08] MEDS: FLUTICASONE PROP 0.05% NASAL SPRAY 16 GM (FLONASE) SCH (08:35)
[2016-08-08] MEDS: OMEPRAZOLE 20 MG CAP PO SCH (08:35)
[2016-08-08] MEDS: APIXABAN 5 MG TAB (ELIQUIS) PO SCH ×2 (08:35→20:40)
[2016-08-08] MEDS: SPIRONOLACTONE 25 MG TAB PO SCH (08:35)
[2016-08-08] MEDS: methylPREDNISolone 4 MG TAB PO SCH (08:35)
[2016-08-08 11:29] VITALS: BP 107/58
--- NOTE | 2016-08-08 11:35 | IPNPDOC ---
Subjective Date Seen The patient was seen on 08/08/16. Subjective Chief Complaint/HPI The patient is a 71-year-old female admitted with a reason for visit of Shortness Of Breath. Events since last encounter Proceeding with GALLEGOS and hypoxia. Pulmonology following. Considering causes: amiodarone toxicity, connective tissue disease. Constitutional: Denies: Chills, Fever, Night Sweats ENT: Denies: Dysphagia, Ear Pain, Head Aches Skin: Denies: Breakdown, Lesions, Rash Pulmonary: Reports: Cough, Dyspnea Cardiovascular: Denies: Chest Pain, Lt Headedness, Orthopnea, Palpitations, Paroxysmal Noc. Dyspnea Gastrointestinal: Denies: Abdominal Pain, Constipation, Diarrhea, Nausea, Vomiting Genitourinary: Denies: Dysuria, Frequency, Incontinence, Retention Neurological: Denies: Change in speech, Confusion, Numbness, Weakness Psych: Reports: Anxiety Objective Physical Examination General Exam: Positive: Alert, No Acute Distress Eye Exam: Positive: Conjunctiva & lids normal, EOMI, PERRLA, Negative: Sclera icteric Neck Exam: Positive: Supple, Negative: JVD, thyromegaly Chest Exam: Positive: Diminished (throughout), Rales (bilateral bases) Heart Exam: Positive: Normal S1, Normal S2, Rate Normal Telemetry: Positive: No significant arrhythmia Abdomen Exam: Positive: Normal bowel sounds, Soft, Negative: Hepatospenomegaly, Tenderness Extremity Exam: Negative: Cyanosis, Edema Psych Exam: Positive: Anxiety, Mental status NL, Mood NL, Oriented x 3 Assessment /Plan Problems (1) Hypoxia Status: Acute Problem Text: 3-4 L/min via NC on non-oxygen dependent female. Sats maintained 90-94%, but desaturates at times to 70s with activity. We have been unable to wean her off of O2. CT chest shows worsening ground glass opacities in bases, which could be worsening pulmonary fibrosis. D/w Pulm - they are continuing methylprednisolone and ordered labwork to work up connective tissue disease. May need to consider an open lung biopsy, but I d/w patient that even a biopsy may not give us a clear diagnosis. She wants to see Pulm in [place] - I d/w her that if she stablizes on O2, we may need to discharge her home on O2 and arrange outpatient followup with Pulm at a tertiary center. (2) Pulmonary fibrosis Status: Chronic Problem Specific Plan: Consult Specialist Problem Text: Pulmonology following. Has been on several bouts of steroids, and in the past had improvement with steroids but has been persistently hypoxic on steroids here. CT shows worsening fibrosis. Was thought to be related to Amiodarone, however her resident program specialist noted that she had pulmonary fibrosis on a CT scan prior to starting Amiodarone. Has been off of Amiodarone for approximately 8 weeks. (3) Atrial fibrillation with RVR Status: Resolved Problem Text: Metoprolol 25 mg po q 6 hrs. Parameters to HOLD were placed in orders. Monitor. EKG: Afib with RVR: 153 08/03: Remains in sinus 08/04/2016: rate improved, NSR. Continue Lopressor. (4) Lactic acid acidosis Status: Resolved Response to Treatment: Improving Problem Text: repeat lactic acid normal. (5) CKD (chronic kidney disease) stage 3, GFR 30-59 ml/min Status: Chronic Problem Text: Cr a bit worse today, likely due to furosemide given yesterday and today - will d/c furosemide. (6) HTN (hypertension) Status: Chronic Response to Treatment: Stable (7) Anxiety Status: Chronic Response to Treatment: Stable (8) GERD (gastroesophageal reflux disease) Status: Chronic Response to Treatment: Stable (9) Hyperlipidemia Status: Chronic Response to Treatment: Stable (10) T2DM (type 2 diabetes mellitus) Status: Chronic Response to Treatment: Stable Problem Text: HOLD Levemir this am due to hypoglycemia (11) DEVEN on CPAP Status: Chronic Problem Text: Did not use CPAP last night. Encouraged to use while sleeping. (12) Hypothyroidism (acquired) Status: Chronic Problem Text: TSH 0.3 with elevated T3 upon admission. Dosing decreased to 100 mcg from 125 mcg. Plan/VTE VTE Prophylaxis Ordered?: Yes (Eliquis) Plan Attending note: I saw and evaluated the patient, and agree with plan of care as discussed and documented above by Katherin Pham. Pulmonology has increased prednisone, and added prophylactic Bactrim single strength daily tab for pneumocystis prophylaxis. Patient is amenable to current plan of care. Indicated that we can revisit if she becomes worse, or if pulmonology feels that she would benefit from transfer to tertiary care facility. Tirso Mckeon MD VS, I&O, 24H, Fishbone Vital Signs/I&O Vital Signs Date Time Temp Pulse Resp B/P Pulse Ox O2 Delivery O2 Flow Rate FiO2 08/08/16 08:00 97.4 79 20 105/56 92 Nasal Cannula 2.0 I&O- Last 24 Hours up to 6 AM 08/08/16 05:59 Intake Total 1620 ml Output Total 900 ml Balance 720 ml Laboratory Data 24H LABS Laboratory Tests 2 08/07/16 11:35: Bedside Glucose (Misc Panel) 222H 08/07/16 12:22: C-Reactive Protein, Quantitative 2.13H, Erythrocyte Sedimentation Rate 18, Rheumatoid Factor < 10.0 08/07/16 16:59: Bedside Glucose (Misc Panel) 295H 08/07/16 21:26: Bedside Glucose (Misc Panel) 309H 08/08/16 04:56: Blood Urea Nitrogen 31H, Creatinine 1.83H, Sodium Level 136, Potassium Level 4.4 , Chloride Level 100, Carbon Dioxide Level 29, Calcium Level 7.9L, Aspartate Amino Transf (AST/SGOT) 34, Alanine Aminotransferase (ALT/SGPT) 34, Alkaline Phosphatase 83, Total Bilirubin 0.4, Total Protein 5.2L, Albumin 2.2L, Albumin/ Globulin Ratio 0.73L, Anion Gap 7L, White Blood Count 12.7H, Red Blood Count 5.00, Hemoglobin 13.3, Hematocrit 40.9, Mean Corpuscular Volume 81.8, Mean Corpuscular Hemoglobin 26.6L, Mean Corpuscular Hemoglobin Concent 32.6, Red Cell Distribution Width 15.4H, Platelet Count 211, Neutrophils (%) (Auto) 81.8H , Lymphocytes (%) (Auto) 12.9L, Monocytes (%) (Auto) 3.8, Eosinophils (%) (Auto ) 0.6, Basophils (%) (Auto) 0.2, Neutrophils # (Auto) 10.4H, Lymphocytes # (Auto ) 1.6, Monocytes # (Auto) 0.5, Eosinophils # (Auto) 0.1, Basophils # (Auto) 0.0 , Glomerular Filtration Rate 29.1L, Large Unclassified Cells # 0.1, Large Unclassified Cells % 0.7, Magnesium Level 1.9 CBC/BMP Laboratory Tests 08/08/16 04:56 Calcium Level 7.9 L, Aspartate Amino Transf (AST/SGOT) 34, Alanine Aminotransferase (ALT/SGPT) 34, Alkaline Phosphatase 83, Total Bilirubin 0.4, Total Protein 5.2 L, Albumin 2.2 L, Red Blood Count 5.00, Mean Corpuscular Volume 81.8, Mean Corpuscular Hemoglobin 26.6 L, Mean Corpuscular Hemoglobin Concent 32.6, Red Cell Distribution Width 15.4 H, Neutrophils (%) (Auto) 81.8 H , Lymphocytes (%) (Auto) 12.9 L, Monocytes (%) (Auto) 3.8, Eosinophils (%) (Auto ) 0.6, Basophils (%) (Auto) 0.2, Neutrophils # (Auto) 10.4 H, Lymphocytes # ( Auto) 1.6, Monocytes # (Auto) 0.5, Eosinophils # (Auto) 0.1, Basophils # (Auto) 0.0 Microbiology Microbiology 08/01/16 Blood Culture - Final, Complete NO GROWTH AFTER 5 DAYS 08/01/16 Blood Culture - Final, Complete NO GROWTH AFTER 5 DAYS 08/01/16 Gram Stain - Final, Complete 08/01/16 Sputum Culture - Final, Complete Yeast Like Organism 08/01/16 Influenza Virus Type A Antigen - Final, Complete 08/01/16 Influenza Virus Type B Antigen - Final, Complete Guadalupe Pham Aug 08, 2016 11:35 TIRSO MCKEON MD Aug 08, 2016 17:29
--- NOTE | 2016-08-08 14:13 | IPN ---
DATE: 08/08/2016 NOTE: Over the past several days, multiple records regarding Ms. Vega have been reviewed, including [facility] records, [facility] records, [facility] records, and radiographic records. This is in addition to conversations with Ms. Vega. This was done to try to get a time course of her abnormal chest CT scan findings as well as amiodarone usage, in addition to treatment and symptoms. Ms. Vega was first noted to have abnormal chest CT scan findings on a routine chest CT scan done by medical oncology in June 2015. Because of the abnormal chest CT scan findings, she was rereferred to [facility] (she had just been discharged from the clinic as her pulmonary symptoms had resolved). At that time, she had no new respiratory symptoms and it was felt possibly those findings were related to environmental exposures as she had just moved into a new apartment where aromatic's and dust were present. She had no dyspnea. No cough or sputum production. The feeling at that time was that as she had no symptoms and the findings were nonspecific that she could be followed clinically. The possibility of an amiodarone effect was considered but felt that it was early and she was on a low dosage. Ms. Vega's amiodarone history at that time was that she had been on 400 twice a day, which had been decreased to 200 mg five times a week on 07/05/2015. She had an ablation done in May that was successful and therefore the amiodarone was discontinued in early July. She had her next CT scan done in mid September, which showed persistent infiltrates that had a more coarse and fibrotic appearance. She was seen following this CT scan and again had minimal symptoms. She did report some shortness of breath at times but nothing consistent and had a minimal cough. It was felt that the changes on her CT scan were consistent with an evolving inflammatory process and as she had no symptoms no intervention was recommended. The differential included infection versus exposure to amiodarone, which by that time had been removed from her regimen. Unfortunately, in December she had a relapse of her atrial fibrillation/atrial flutter, and was admitted to the hospital in congestive heart failure (CHF). According to the admission note, she had been started on amiodarone at 200 mg twice a day on 01/12 and was admitted for CHF on 01/14. She was discharged on 400 mg twice a day of amiodarone. It is unclear as to whether this was then decreased, as per cardiology note from 01/20/2016 she was on 200 mg twice a day at that time. She had a PET CT scan done in March 2016 , which showed mild hypometabolic parenchymal opacities in the lower lobes bilaterally and in the left upper lobe, most compatible with pneumonia, per the read. She was again seen by pulmonary in April, at which time she had a cough with minimal sputum in the morning. She was perhaps a bit more short of breath than she was in the past. It was thought at the time that perhaps she had a viral atypical infection, but also the possibility of amiodarone effects on the lungs were discussed. It seemed less likely that it was recurrence of lymphoma. She had a sputum culture done, which was unremarkable, and steroids were empirically initiated. Her regimen was 40 mg by mouth times 5 days, 30 mg by mouth times 5 days, 20 mg by mouth times 5 days, 10 mg by mouth times 5 days, 10 mg every other day for 5 days, and then off. She followed up with pulmonary approximately one month later, at which time she reported her cough improved significantly and her shortness of breath had improved on the prednisone. However, her symptoms seemed to flare when she was off prednisone. Per the note , she did well to a dose of 5 mg a day. This was not the original prescription but perhaps it was altered. After her steroid course had stopped, her cough recurred and she also had some posterior right sided chest discomfort. At that time, she was still on amiodarone 200 mg by mouth daily. Her amiodarone was then stopped and she reports that her last dosage was on 06/05/2016. Because of her symptoms , she was eventually started back on prednisone at 40 mg a day but when it was decreased to 20 mg per day her symptoms worsened. She was advised to go back to prednisone at 30 mg a day. That was on 07/19. In the interim, she had another chest CT scan as she had an emergency room visit (which is I believe was when she was started back on steroids), which again had shown bilateral ground glass opacities but in comparison of the previous CT scans they were markedly improved compared to the CT scans from both September 2015 and June 2015. Her symptoms continued to progress and she presented to the emergency department, which led to this admission. Since she was here, she was initially started on Solu-Medrol and eventually was changed to Medrol at 12 mg daily. She had an initial chest CT scan, which had shown an increase in the bilateral ground glass opacities compared to 06/30/2016. Repeat scan on 08/06/2016 showed worsened patchy ground glass opacities. In essence, she was on amiodarone when ground glass opacities were first noted. That was eventually stopped as she did not need it. She had a worsened chest CT scan off of amiodarone. She was off for a significant period of time, but it was restarted on December and unfortunately we do not have an interim scan to show whether or not her infiltrates had resolved and then recurred. She had been started back on amiodarone in December and it was not stopped until Mid May. This time it was stopped because of pulmonary concerns. She has been on corticosteroids and clinically has improved , though we do not have any specific data in whether there were changes in saturation or CT scan with this therapy. Since she has been here, she has been maintained on a low dosage of corticosteroids (below the dosage at which she had clinically relapsed), and she has clinically deteriorated this time with documented desaturations, as well as her CT scan is worsened. This history could be consistent with amiodarone toxicity. The half life of amiodarone is 58 days and so it is not unusual to clinically worsen to some degree after the amiodarone has been discontinued. Also, it is stored in adipose tissue and because of Ms. Vega's Body Mass Index (BMI) there may be an overall higher load that needs to eventually dissipate. It remains to be seen whether or not she remains clinical responsive to corticosteroids, but because of her past history, we recommended increasing it back to 32 mg of Medrol (which is approximately equivalent to 40 mg of prednisone), and following her clinically. Amiodarone toxicity is the leading diagnosis, but other possibilities need to be considered and those have been addressed in other notes by the pulmonary service. JAQUAN
[2016-08-08 16:00] VITALS: BP 116/59
[2016-08-08] MEDS: BACTRIM 80MG/400MG TAB PO SCH (17:00)
[2016-08-08 20:00] VITALS: BP 109/55
[2016-08-08] MEDS: ATORVASTATIN 20 MG TAB PO SCH (20:40)
[2016-08-08] MEDS: ALPRAZolam 0.25 MG TAB PO PRN (21:27)
[2016-08-08 23:22] VITALS: BP 126/56
[2016-08-09] MEDS: IPRATROPIUM 0.5MG/ALBUTEROL 2.5MG INH SOL UD 3ML (DUONEB)(J7620) NEB SCH ×4 (02:33→21:15)
[2016-08-09 04:00] VITALS: BP 122/57
[2016-08-09] MEDS: LEVOTHYROXINE 0.1 MG TAB (100 MCG) PO SCH (06:22)
[2016-08-09] MEDS: METOPROLOL TART 25 MG TABLET PO SCH ×4 (06:22→23:40)
[2016-08-09 08:00] VITALS: BP 119/59
[2016-08-09] MEDS: HumaLOG INSULIN (NovoLOG) PER UNIT SC SCH ×3 (08:37→16:37)
--- NOTE | 2016-08-09 09:03 | IPNPDOC ---
Subjective Date Seen The patient was seen on 08/09/16. Subjective Chief Complaint/HPI The patient is a 71-year-old female admitted with a reason for visit of Shortness Of Breath. Events since last encounter Pt this morning states that she is alright, no better than she has been. Was worse just a couple hours ago, but seems to have gotten her breathing under control again. States that she thinks the Xanax she had yesterday to try to calm her down, might have made her agitated more than anything. She states that she snapped at people when she normally wouldn't have done so. General: Reports: Fatigue Constitutional: Denies: Chills, Fever Pulmonary: Reports: Cough, Dyspnea Cardiovascular: Denies: Chest Pain, Palpitations Gastrointestinal: Denies: Diarrhea, Nausea, Vomiting Genitourinary: Denies: Frequency Musculoskeletal: Denies: Back Pain Psych: Reports: Anxiety Objective Physical Examination General Exam: Positive: Alert, No Acute Distress Neck Exam: Positive: Supple, Negative: JVD, thyromegaly Chest Exam: Positive: Diminished (throughout), Rales (bilateral bases) Heart Exam: Positive: Normal S1, Normal S2, Rate Normal Telemetry: Positive: No significant arrhythmia Abdomen Exam: Positive: Normal bowel sounds, Soft, Negative: Hepatospenomegaly, Tenderness Extremity Exam: Negative: Cyanosis, Edema Psych Exam: Positive: Anxiety, Mental status NL, Mood NL, Oriented x 3 Assessment /Plan Problems (1) Hypoxia Status: Acute Problem Text: 08/09 - Conditon remains same, Pulm is following, feels this is likely assoc with Amiodorone toxicity, especially given the half life of the medication and the ability for storage in adipose tissue (pt has an elevated BMI ). Labs pending to r/o connective tissue d/o. 08/08 3-4 L/min via NC on non-oxygen dependent female. Sats maintained 90-94%, but desaturates at times to 70s with activity. We have been unable to wean her off of O2. CT chest shows worsening ground glass opacities in bases, which could be worsening pulmonary fibrosis. D/w Pulm - they are continuing methylprednisolone and ordered labwork to work up connective tissue disease. May need to consider an open lung biopsy, but I d/w patient that even a biopsy may not give us a clear diagnosis. She wants to see Pulm in [place] - I d/w her that if she stablizes on O2, we may need to discharge her home on O2 and arrange outpatient followup with Pulm at a tertiary center. (2) Pulmonary fibrosis Status: Chronic Problem Specific Plan: Consult Specialist Problem Text: 08/09 - Mgmt per pulm. 08/08 Pulmonology following. Has been on several bouts of steroids, and in the past had improvement with steroids but has been persistently hypoxic on steroids here. CT shows worsening fibrosis. Was thought to be related to Amiodarone, however her video producer noted that she had pulmonary fibrosis on a CT scan prior to starting Amiodarone. Has been off of Amiodarone for approximately 8 weeks. (3) Atrial fibrillation with RVR Status: Resolved Problem Text: 08/09 -rate improved, consistently less than 100 08/08 Metoprolol 25 mg po q 6 hrs. Parameters to HOLD were placed in orders. Monitor. EKG: Afib with RVR: 153 08/03: Remains in sinus 08/04/2016: rate improved, NSR. Continue Lopressor. (4) Lactic acid acidosis Status: Resolved Response to Treatment: Improving Problem Text: repeat lactic acid normal. (5) CKD (chronic kidney disease) stage 3, GFR 30-59 ml/min Status: Chronic Problem Text: 08/09 - Lasix d/c'd yesterday, appears compensated. Scr continues to trend up, 1.83 today, 1.74 yest, enc po intake. 08/08 Cr a bit worse today, likely due to furosemide given yesterday and today - will d/c furosemide. (6) HTN (hypertension) Status: Chronic Response to Treatment: Stable (7) Rectal bleeding Status: Acute Problem Text: 08/09 - Patient had one bloody BM with bright red blood; no further BMs today; denies abdominal pain. Will monitor H/H - advised nurse to call if she has further bloody BMs and we will order a CBC. (KES) (8) Anxiety Status: Chronic Response to Treatment: Stable Problem Text: 08/09 - Started on xanax yesterday - she feels that it helps with being irritable but she does not think it helps her anxiety (KES) (9) GERD (gastroesophageal reflux disease) Status: Chronic Response to Treatment: Stable (10) T2DM (type 2 diabetes mellitus) Status: Chronic Response to Treatment: Stable Problem Text: HOLD Levemir this am due to hypoglycemia (11) DEVEN on CPAP Status: Chronic Problem Text: Did not use CPAP last night. Encouraged to use while sleeping. (12) Hypothyroidism (acquired) Status: Chronic Problem Text: TSH 0.3 with elevated T3 upon admission. Dosing decreased to 100 mcg from 125 mcg. Plan/VTE VTE Prophylaxis Ordered?: Yes (Eliquis) Plan Family Medicine Attending Note: Patient seen and examined today; I d/w NORMA Tavarez and I agree with her note with above additions. Patient states breathing is about the same - she is willing to see if increased dose of methylprednisolone improves her breathing. She had BRBPR today - see note above for plan for this. Continue management of pulmonary fibrosis per Pulm. ( KES) VS, I&O, 24H, Fishbone Vital Signs/I&O Vital Signs Date Time Temp Pulse Resp B/P Pulse Ox O2 Delivery O2 Flow Rate FiO2 08/09/16 08:00 96.8 86 20 119/59 98 NIPPV (BIPAP/CPAP) 4.0 I&O- Last 24 Hours up to 6 AM 08/09/16 05:59 Intake Total 900 ml Output Total 1300 ml Balance -400 ml Laboratory Data 24H LABS Laboratory Tests 2 08/08/16 11:38: Bedside Glucose (Misc Panel) 82 08/08/16 16:32: Bedside Glucose (Misc Panel) 187H 08/08/16 20:38: Bedside Glucose (Misc Panel) 286H 08/09/16 05:17: C-Reactive Protein, Quantitative 3.77H, Erythrocyte Sedimentation Rate 27 Microbiology Microbiology 08/01/16 Blood Culture - Final, Complete NO GROWTH AFTER 5 DAYS 08/01/16 Blood Culture - Final, Complete NO GROWTH AFTER 5 DAYS 08/01/16 Gram Stain - Final, Complete 08/01/16 Sputum Culture - Final, Complete Yeast Like Organism 08/01/16 Influenza Virus Type A Antigen - Final, Complete 08/01/16 Influenza Virus Type B Antigen - Final, Complete JUDE LOJA PA-C Aug 09, 2016 09:02 ALBERTO KEITA MD Aug 09, 2016 14:55
[2016-08-09] MEDS: LEVEMIR (INSULIN DETEMIR) 1 UNITS/0.01ML SC SCH ×2 (09:14→20:53)
[2016-08-09] MEDS: ONDANSETRON 4 MG TAB (S0181) PO PRN (09:17)
[2016-08-09] MEDS: methylPREDNISolone 4 MG TAB PO SCH (09:58)
[2016-08-09] MEDS: BACTRIM 80MG/400MG TAB PO SCH (09:58)
[2016-08-09] MEDS: SPIRONOLACTONE 25 MG TAB PO SCH (09:58)
[2016-08-09] MEDS: ALPRAZolam 0.25 MG TAB PO PRN (09:58)
[2016-08-09] MEDS: APIXABAN 5 MG TAB (ELIQUIS) PO SCH ×2 (09:59→20:53)
[2016-08-09] MEDS: OMEPRAZOLE 20 MG CAP PO SCH (09:59)
[2016-08-09] MEDS: FLUTICASONE PROP 0.05% NASAL SPRAY 16 GM (FLONASE) SCH (09:59)
[2016-08-09 11:42] VITALS: BP 126/52
[2016-08-09 16:00] VITALS: BP 124/68
[2016-08-09 19:50] VITALS: BP 146/70
[2016-08-09] MEDS ORDERED: SLF 3 ML SYR IV PRN (20:00)
[2016-08-09] MEDS: ATORVASTATIN 20 MG TAB PO SCH (20:53)
[2016-08-09] MEDS: SLF 3 ML SYR IV SCH (20:54)
[2016-08-09 23:39] VITALS: BP 161/68
[2016-08-10] MEDS: IPRATROPIUM 0.5MG/ALBUTEROL 2.5MG INH SOL UD 3ML (DUONEB)(J7620) NEB SCH ×4 (01:46→20:13)
[2016-08-10 04:07] VITALS: BP 114/66
[2016-08-10 05:47] LABS: BASO % 0.3 % (0.0-1.0); EOS % 0.4 % (0.0-3.0); LARGE UNSTAINED CELL # 0.1 K/mm3 (0.0-0.4); LARGE UNSTAINED CELL % 0.5 % (0.0-4.0); LYMPH # 1.2 K/mm3 (1.5-4.5); MEAN CORPUSCULAR HEMOGLOBIN 26.9 pg (27.0-33.0); MEAN CORPUSCULAR HGB CONC 32.6 g/dl (32.0-36.5); MEAN CORPUSCULAR VOLUME 82.4 fl (80.0-96.0); MONO # 0.4 K/mm3 (0.0-0.8); MONO % 4.1 % (0.0-5.0); NEUTROPHILS # 9.1 K/mm3 (1.8-7.7); NEUTROPHILS % 83.7 % (36.0-66.0); PLATELET COUNT, AUTOMATED 208 k/mm3 (150-450); RED CELL DISTRIBUTION WIDTH 15.4 % (11.5-14.5); WHITE BLOOD COUNT 10.9 K/mm3 (4.0-10.0)
[2016-08-10 05:51] VITALS: BP 115/55
[2016-08-10] MEDS: LEVOTHYROXINE 0.1 MG TAB (100 MCG) PO SCH (05:52)
[2016-08-10] MEDS: METOPROLOL TART 25 MG TABLET PO SCH ×4 (05:52→23:08)
[2016-08-10] MEDS: SLF 3 ML SYR IV SCH ×3 (05:52→21:56)
[2016-08-10 06:02] LABS: ALBUMIN 2.2 GM/DL (3.2-5.2); ALBUMIN/GLOBULIN RATIO 0.71 (1.00-1.93); BILIRUBIN,TOTAL 0.7 MG/DL (0.2-1.0); CALCIUM LEVEL 8.5 MG/DL (8.8-10.2); CREATININE FOR GFR 1.94 MG/DL (0.55-1.02); GLOMERULAR FILTRATION RATE 27.2 (>45); TOTAL PROTEIN 5.3 GM/DL (6.4-8.2)
[2016-08-10 06:06] LABS: POTASSIUM SERUM 5.3 MEQ/L (3.5-5.1)
[2016-08-10 06:24] LABS: ERYTHROCYTE SEDIMENTATION RATE 34 mm/hr (0-30)
[2016-08-10 08:00] VITALS: BP 124/65
[2016-08-10] MEDS: HumaLOG INSULIN (NovoLOG) PER UNIT SC SCH ×3 (08:08→18:26)
[2016-08-10] MEDS: methylPREDNISolone 4 MG TAB PO SCH (08:08)
[2016-08-10] MEDS: APIXABAN 5 MG TAB (ELIQUIS) PO SCH ×2 (08:09→21:20)
[2016-08-10] MEDS: OMEPRAZOLE 20 MG CAP PO SCH (08:09)
[2016-08-10] MEDS: SPIRONOLACTONE 25 MG TAB PO SCH (08:09)
[2016-08-10] MEDS: ONDANSETRON 4 MG TAB (S0181) PO PRN (08:09)
[2016-08-10] MEDS: LEVEMIR (INSULIN DETEMIR) 1 UNITS/0.01ML SC SCH ×2 (08:09→21:20)
[2016-08-10] MEDS: BACTRIM 80MG/400MG TAB PO SCH (08:09)
[2016-08-10] MEDS: FLUTICASONE PROP 0.05% NASAL SPRAY 16 GM (FLONASE) SCH (08:10)
--- NOTE | 2016-08-10 09:39 | IPNPDOC ---
Subjective Date Seen The patient was seen on 08/10/16. Subjective Chief Complaint/HPI The patient is a 71-year-old female admitted with a reason for visit of Shortness Of Breath. Events since last encounter Pt states that she has had some nausea this morning. Breathing is stable. She has no new concerns. Pt has not seen her bc of concerns with her O2 sats with movement, the attempts to work with her have always been with continuous pulse ox monitoring. General: Reports: Fatigue Constitutional: Denies: Chills, Fever ENT: Denies: Head Aches Pulmonary: Reports: Cough, Dyspnea Cardiovascular: Denies: Chest Pain, Palpitations Gastrointestinal: Reports: Nausea, Denies: Diarrhea, Vomiting Neurological: Reports: Weakness Psych: Reports: Mood Normal Objective Physical Examination General Exam: Positive: Alert, No Acute Distress Neck Exam: Positive: Supple, Negative: JVD, thyromegaly Chest Exam: Positive: Diminished (throughout), Rales (bilateral bases) Heart Exam: Positive: Normal S1, Normal S2, Rate Normal Telemetry: Positive: No significant arrhythmia Abdomen Exam: Positive: Normal bowel sounds, Soft, Negative: Hepatospenomegaly, Tenderness Extremity Exam: Negative: Cyanosis, Edema Psych Exam: Positive: Anxiety, Mental status NL, Mood NL, Oriented x 3 Assessment /Plan Problems (1) Hypoxia Status: Acute Problem Text: 08/10 - Condition remains same. D/w PCC this morning need for pt to be ambulated without cont pulse ox, d/t her Pulm fibrosis she will have desats, her ability to participate needs to be based more upon her symptoms than her pulse ox at the time of or during. 08/09 - Conditon remains same, Pulm is following, feels this is likely assoc with Amiodorone toxicity, especially given the half life of the medication and the ability for storage in adipose tissue (pt has an elevated BMI). Labs pending to r/o connective tissue d/o. 08/08 3-4 L/min via NC on non-oxygen dependent female. Sats maintained 90-94%, but desaturates at times to 70s with activity. We have been unable to wean her off of O2. CT chest shows worsening ground glass opacities in bases, which could be worsening pulmonary fibrosis. D/w Pulm - they are continuing methylprednisolone and ordered labwork to work up connective tissue disease. May need to consider an open lung biopsy, but I d/w patient that even a biopsy may not give us a clear diagnosis. She wants to see Pulm in [place] - I d/w her that if she stablizes on O2, we may need to discharge her home on O2 and arrange outpatient followup with Pulm at a tertiary center. (2) Pulmonary fibrosis Status: Chronic Problem Specific Plan: Consult Specialist Problem Text: 08/10 - see above 08/09 - Mgmt per pulm. 08/08 Pulmonology following. Has been on several bouts of steroids, and in the past had improvement with steroids but has been persistently hypoxic on steroids here. CT shows worsening fibrosis. Was thought to be related to Amiodarone, however her barbed wire machine operator noted that she had pulmonary fibrosis on a CT scan prior to starting Amiodarone. Has been off of Amiodarone for approximately 8 weeks. (3) Atrial fibrillation with RVR Status: Resolved Problem Text: 08/10 - Rate remains pretty well controlled, had documented rate of 110 last evening, otherwise mostly in the 80-90 range. 08/09 -rate improved, consistently less than 100 08/08 Metoprolol 25 mg po q 6 hrs. Parameters to HOLD were placed in orders. Monitor. EKG: Afib with RVR: 153 08/03: Remains in sinus 08/04/2016: rate improved, NSR. Continue Lopressor. (4) Lactic acid acidosis Status: Resolved Response to Treatment: Improving Problem Text: repeat lactic acid normal. (5) CKD (chronic kidney disease) stage 3, GFR 30-59 ml/min Status: Chronic Problem Text: 08/10 - Appears baseline 1.5-1.8, Scr today 1.94. 08/09 - Lasix d/c'd yesterday, appears compensated. Scr continues to trend up, 1.83 today, 1.74 yest, enc po intake. 08/08 Cr a bit worse today, likely due to furosemide given yesterday and today - will d/c furosemide. (6) HTN (hypertension) Status: Chronic Response to Treatment: Stable (7) Rectal bleeding Status: Acute Problem Text: 08/10 - Hgb down slightly from 13.3 to 12.7, she had only one bloody BM, BM later in the day was without evidence of blood. [address] Kahn noted in [facility], no report in the system 08/09 - Patient had one bloody BM with bright red blood; no further BMs today; denies abdominal pain. Will monitor H/H - advised nurse to call if she has further bloody BMs and we will order a CBC. (KES) (8) Anxiety Status: Chronic Response to Treatment: Stable Problem Text: 08/09 - Started on xanax yesterday - she feels that it helps with being irritable but she does not think it helps her anxiety (KES) (9) GERD (gastroesophageal reflux disease) Status: Chronic Response to Treatment: Stable (10) T2DM (type 2 diabetes mellitus) Status: Chronic Response to Treatment: Stable Problem Text: HOLD Levemir this am due to hypoglycemia (11) DEVEN on CPAP Status: Chronic Problem Text: Did not use CPAP last night. Encouraged to use while sleeping. (12) Hypothyroidism (acquired) Status: Chronic Problem Text: TSH 0.3 with elevated T3 upon admission. Dosing decreased to 100 mcg from 125 mcg. Plan/VTE VTE Prophylaxis Ordered?: Yes (Efraín) Plan Family Medicine Attending Note: Patient seen and examined today; I d/w Jude Loja, and I agree with her note above. Patient feels her breathing is better today; her nurse tried to walk with her but she did not want to walk because she had nausea and dry heaving, which has now resolved. Lungs sound a bit more clear today. Will continue to encourage her to ambulate when possible to prepare for possible discharge home with oxygen. (KES) VS, I&O, 24H, Fishbone Vital Signs/I&O Vital Signs Date Time Temp Pulse Resp B/P Pulse Ox O2 Delivery O2 Flow Rate FiO2 08/10/16 08:12 Nasal Cannula 3.0 08/10/16 08:00 98.3 91 18 124/65 92 I&O- Last 24 Hours up to 6 AM 08/10/16 06:00 Intake Total 1390 ml Output Total 1475 ml Balance -85 ml Laboratory Data 24H LABS Laboratory Tests 2 08/09/16 11:34: Bedside Glucose (Misc Panel) 165H 08/09/16 16:22: Bedside Glucose (Misc Panel) 403H 08/09/16 20:51: Bedside Glucose (Misc Panel) 396H 08/10/16 05:08: Blood Urea Nitrogen 36H, Creatinine 1.94H, Sodium Level 136, Potassium Level 5.3H, Chloride Level 100, Carbon Dioxide Level 27, Calcium Level 8.5L, Aspartate Amino Transf (AST/SGOT) 36, Alanine Aminotransferase (ALT/SGPT) 34, Alkaline Phosphatase 94, Total Bilirubin 0.7#, Total Protein 5.3L, Albumin 2.2L , Albumin/Globulin Ratio 0.71L, Anion Gap 9, White Blood Count 10.9H, Red Blood Count 4.73, Hemoglobin 12.7, Hematocrit 39.0, Mean Corpuscular Volume 82.4, Mean Corpuscular Hemoglobin 26.9L, Mean Corpuscular Hemoglobin Concent 32.6, Red Cell Distribution Width 15.4H, Platelet Count 208, Neutrophils (%) (Auto) 83.7H, Lymphocytes (%) (Auto) 11.0L, Monocytes (%) (Auto) 4.1, Eosinophils (%) ( Auto) 0.4, Basophils (%) (Auto) 0.3, Neutrophils # (Auto) 9.1H, Lymphocytes # ( Auto) 1.2L, Monocytes # (Auto) 0.4, Eosinophils # (Auto) 0.0, Basophils # (Auto ) 0.0, C-Reactive Protein, Quantitative 4.15H, Erythrocyte Sedimentation Rate 34H, Glomerular Filtration Rate 27.2L, Large Unclassified Cells # 0.1, Large Unclassified Cells % 0.5 CBC/BMP Laboratory Tests 08/10/16 05:08 Calcium Level 8.5 L, Aspartate Amino Transf (AST/SGOT) 36, Alanine Aminotransferase (ALT/SGPT) 34, Alkaline Phosphatase 94, Total Bilirubin 0.7 #, Total Protein 5.3 L, Albumin 2.2 L, Red Blood Count 4.73, Mean Corpuscular Volume 82.4, Mean Corpuscular Hemoglobin 26.9 L, Mean Corpuscular Hemoglobin Concent 32.6, Red Cell Distribution Width 15.4 H, Neutrophils (%) (Auto) 83.7 H , Lymphocytes (%) (Auto) 11.0 L, Monocytes (%) (Auto) 4.1, Eosinophils (%) (Auto ) 0.4, Basophils (%) (Auto) 0.3, Neutrophils # (Auto) 9.1 H, Lymphocytes # (Auto ) 1.2 L, Monocytes # (Auto) 0.4, Eosinophils # (Auto) 0.0, Basophils # (Auto) 0.0 Microbiology Microbiology 08/01/16 Blood Culture - Final, Complete NO GROWTH AFTER 5 DAYS 08/01/16 Blood Culture - Final, Complete NO GROWTH AFTER 5 DAYS 08/01/16 Gram Stain - Final, Complete 08/01/16 Sputum Culture - Final, Complete Yeast Like Organism 08/01/16 Influenza Virus Type A Antigen - Final, Complete 08/01/16 Influenza Virus Type B Antigen - Final, Complete JUDE LOJA PA-C Aug 10, 2016 09:39 ALBERTO KEITA MD Aug 10, 2016 16:49
[2016-08-10] MEDS ORDERED: PROMETHAZINE 25 MG TAB PO PRN (11:45)
[2016-08-10 12:16] VITALS: BP 137/71
[2016-08-10 16:45] VITALS: BP 121/60
[2016-08-10] MEDS: ATORVASTATIN 20 MG TAB PO SCH (21:21)
[2016-08-10 22:00] VITALS: BP 140/75
[2016-08-11] MEDS: IPRATROPIUM 0.5MG/ALBUTEROL 2.5MG INH SOL UD 3ML (DUONEB)(J7620) NEB SCH ×4 (02:00→20:04)
[2016-08-11] MEDS: SLF 3 ML SYR IV SCH ×3 (05:30→21:16)
[2016-08-11] MEDS: LEVOTHYROXINE 0.1 MG TAB (100 MCG) PO SCH (05:30)
[2016-08-11] MEDS: METOPROLOL TART 25 MG TABLET PO SCH ×3 (05:30→18:04)
[2016-08-11 06:00] VITALS: BP 155/72
[2016-08-11 07:17] LABS: ALBUMIN 2.2 GM/DL (3.2-5.2); ALBUMIN/GLOBULIN RATIO 0.71 (1.00-1.93); BILIRUBIN,TOTAL 0.6 MG/DL (0.2-1.0); CALCIUM LEVEL 8.4 MG/DL (8.8-10.2); CREATININE FOR GFR 1.94 MG/DL (0.55-1.02); GLOMERULAR FILTRATION RATE 27.2 (>45); TOTAL PROTEIN 5.3 GM/DL (6.4-8.2)
[2016-08-11 07:27] LABS: BASO % 0.1 % (0.0-1.0); EOS % 0.3 % (0.0-3.0); LARGE UNSTAINED CELL # 0.1 K/mm3 (0.0-0.4); LARGE UNSTAINED CELL % 0.7 % (0.0-4.0); LYMPH % 10.3 % (24.0-44.0); MEAN CORPUSCULAR HEMOGLOBIN 26.4 pg (27.0-33.0); MEAN CORPUSCULAR HGB CONC 32.3 g/dl (32.0-36.5); MEAN CORPUSCULAR VOLUME 81.6 fl (80.0-96.0); MONO # 0.4 K/mm3 (0.0-0.8); NEUTROPHILS # 8.1 K/mm3 (1.8-7.7); NEUTROPHILS % 84.6 % (36.0-66.0); PLATELET COUNT, AUTOMATED 206 k/mm3 (150-450); RED CELL DISTRIBUTION WIDTH 15.5 % (11.5-14.5); WHITE BLOOD COUNT 9.6 K/mm3 (4.0-10.0)
[2016-08-11 08:02] LABS: POTASSIUM SERUM 5.2 MEQ/L (3.5-5.1)
[2016-08-11] MEDS: LEVEMIR (INSULIN DETEMIR) 1 UNITS/0.01ML SC SCH ×3 (09:00→21:16)
[2016-08-11 09:09] LABS: ERYTHROCYTE SEDIMENTATION RATE 33 mm/hr (0-30)
[2016-08-11] MEDS: OMEPRAZOLE 20 MG CAP PO SCH (09:47)
[2016-08-11] MEDS: BACTRIM 80MG/400MG TAB PO SCH (09:47)
[2016-08-11] MEDS: SPIRONOLACTONE 25 MG TAB PO SCH (09:48)
[2016-08-11] MEDS: methylPREDNISolone 4 MG TAB PO SCH (09:48)
[2016-08-11] MEDS: APIXABAN 5 MG TAB (ELIQUIS) PO SCH ×2 (09:48→21:15)
[2016-08-11] MEDS: HumaLOG INSULIN (NovoLOG) PER UNIT SC SCH ×3 (09:51→17:41)
[2016-08-11] MEDS: FLUTICASONE PROP 0.05% NASAL SPRAY 16 GM (FLONASE) SCH (09:52)
--- NOTE | 2016-08-11 10:47 | IPNPDOC ---
Subjective Date Seen The patient was seen on 08/11/16. Subjective Chief Complaint/HPI The patient is a 71-year-old female admitted with a reason for visit of Shortness Of Breath. Events since last encounter Pt this morning feeling alright. She did well eating breakfast. Had some nausea yesterday which was relieved with phenergan,which subsequently made her drowsy. She has not been willing to work with PT, but she has been trying to get up and do some walking around her room. She admits that she probably hasn' t done this as much as she should. General: Reports: Fatigue Constitutional: Denies: Chills, Fever ENT: Denies: Head Aches Skin: Denies: Rash Pulmonary: Reports: Cough, Dyspnea Cardiovascular: Denies: Chest Pain, Palpitations Gastrointestinal: Denies: Diarrhea, Nausea, Vomiting Neurological: Reports: Weakness Psych: Reports: Mood Normal Objective Physical Examination General Exam: Positive: Alert, No Acute Distress Neck Exam: Positive: Supple, Negative: JVD, thyromegaly Chest Exam: Positive: Diminished (throughout), Rales (bilateral bases) Heart Exam: Positive: Normal S1, Normal S2, Rate Normal Telemetry: Positive: No significant arrhythmia Abdomen Exam: Positive: Normal bowel sounds, Soft, Negative: Hepatospenomegaly, Tenderness Extremity Exam: Negative: Cyanosis, Edema Psych Exam: Positive: Anxiety, Mental status NL, Mood NL, Oriented x 3 Assessment /Plan Problems (1) Hypoxia Status: Acute Problem Text: 08/11 - Pt remains stable. D/w pt need for ambulation. Will consult PFS to arrange home care for pt, lives with her who is disabled. Not a lot of family support. She is hopeful she will be able to go home tomorrow 08/12. Her dgr doesn't have to work and will be able to help her get settle tomorrow. 08/10 - Condition remains same. D/w PCC this morning need for pt to be ambulated without cont pulse ox, d/t her Pulm fibrosis she will have desats, her ability to participate needs to be based more upon her symptoms than her pulse ox at the time of or during. 08/09 - Conditon remains same, Pulm is following, feels this is likely assoc with Amiodorone toxicity, especially given the half life of the medication and the ability for storage in adipose tissue (pt has an elevated BMI). Labs pending to r/o connective tissue d/o. 08/08 3-4 L/min via NC on non-oxygen dependent female. Sats maintained 90-94%, but desaturates at times to 70s with activity. We have been unable to wean her off of O2. CT chest shows worsening ground glass opacities in bases, which could be worsening pulmonary fibrosis. D/w Pulm - they are continuing methylprednisolone and ordered labwork to work up connective tissue disease. May need to consider an open lung biopsy, but I d/w patient that even a biopsy may not give us a clear diagnosis. She wants to see Pulm in [place] - I d/w her that if she stablizes on O2, we may need to discharge her home on O2 and arrange outpatient followup with Pulm at a tertiary center. (2) Pulmonary fibrosis Status: Chronic Problem Specific Plan: Consult Specialist Problem Text: 08/11 - Resp stable. see above. 08/10 - see above 08/09 - Mgmt per pulm. 08/08 Pulmonology following. Has been on several bouts of steroids, and in the past had improvement with steroids but has been persistently hypoxic on steroids here. CT shows worsening fibrosis. Was thought to be related to Amiodarone, however her radiographer cardiac catheterization noted that she had pulmonary fibrosis on a CT scan prior to starting Amiodarone. Has been off of Amiodarone for approximately 8 weeks. (3) Atrial fibrillation with RVR Status: Resolved Problem Text: 08/10 - Rate remains pretty well controlled, had documented rate of 110 last evening, otherwise mostly in the 80-90 range. 08/09 -rate improved, consistently less than 100 08/08 Metoprolol 25 mg po q 6 hrs. Parameters to HOLD were placed in orders. Monitor. EKG: Afib with RVR: 153 08/03: Remains in sinus 08/04/2016: rate improved, NSR. Continue Lopressor. (4) Lactic acid acidosis Status: Resolved Response to Treatment: Improving Problem Text: repeat lactic acid normal. (5) CKD (chronic kidney disease) stage 3, GFR 30-59 ml/min Status: Chronic Problem Text: 08/10 - Appears baseline 1.5-1.8, Scr today 1.94. 08/09 - Lasix d/c'd yesterday, appears compensated. Scr continues to trend up, 1.83 today, 1.74 yest, enc po intake. 08/08 Cr a bit worse today, likely due to furosemide given yesterday and today - will d/c furosemide. (6) HTN (hypertension) Status: Chronic Response to Treatment: Stable (7) Rectal bleeding Status: Acute Problem Text: 08/10 - Hgb down slightly from 13.3 to 12.7, she had only one bloody BM, BM later in the day was without evidence of blood. [address] Kahn noted in [facility], no report in the system 08/09 - Patient had one bloody BM with bright red blood; no further BMs today; denies abdominal pain. Will monitor H/H - advised nurse to call if she has further bloody BMs and we will order a CBC. (KES) (8) Anxiety Status: Chronic Response to Treatment: Stable Problem Text: 08/09 - Started on xanax yesterday - she feels that it helps with being irritable but she does not think it helps her anxiety (KES) (9) GERD (gastroesophageal reflux disease) Status: Chronic Response to Treatment: Stable (10) T2DM (type 2 diabetes mellitus) Status: Chronic Response to Treatment: Stable Problem Text: Levemir dose increased today; hyperglycemia is likely due to increased dose of methylprednisolone. Continue to monitor. (11) DEVEN on CPAP Status: Chronic Problem Text: Did not use CPAP last night. Encouraged to use while sleeping. (12) Hypothyroidism (acquired) Status: Chronic Problem Text: TSH 0.3 with elevated T3 upon admission. Dosing decreased to 100 mcg from 125 mcg. Plan/VTE VTE Prophylaxis Ordered?: Yes (Efraín) Plan Family Medicine Attending Note: Patient seen and examined today; I d/w Jude Loja PA-C and I agree with her note as documented. Ms. Vega continues to have desaturations with exertion; per pulmonology this is expected with her underlying pulmonary fibrosis. Dr. Slade will be arranging a follow-up appointment in one month with his office, and a referral was also placed by Dr. Betancourt to Pulmonology in [place]. Patient states she feels about the same today as she has for the last few weeks, and her lung exam is unchanged. Hgb is stable; Cr is a bit above baseline but is stable; levemir was increased today due to persistently elevated blood glucose, likely due to elevated methylprednisolone dose. I anticipate discharge home tomorrow on oxygen and advised patient to make a follow-up appointment with her PCP next week. (BRANDON) VS, I&O, 24H, [place] Vital Signs/I&O Vital Signs Date Time Temp Pulse Resp B/P Pulse Ox O2 Delivery O2 Flow Rate FiO2 08/11/16 06:00 98.0 70 22 155/72 96 NIPPV (BIPAP/CPAP) 08/10/16 22:50 3.0 I&O- Last 24 Hours up to 6 AM 08/11/16 06:00 Intake Total 840 ml Output Total 200 ml Balance 640 ml Laboratory Data 24H LABS Laboratory Tests 2 08/10/16 11:28: Bedside Glucose (Misc Panel) 247H 08/10/16 16:03: Bedside Glucose (Misc Panel) 282H 08/10/16 17:08: Bedside Glucose (Misc Panel) 232H 08/10/16 20:30: Bedside Glucose (Misc Panel) 366H 08/11/16 06:18: Blood Urea Nitrogen 43H, Creatinine 1.94H, Sodium Level 135L, Potassium Level 5.2H, Chloride Level 101, Carbon Dioxide Level 27, Calcium Level 8.4L, Aspartate Amino Transf (AST/SGOT) 43H, Alanine Aminotransferase (ALT/SGPT) 36, Alkaline Phosphatase 93, Total Bilirubin 0.6, Total Protein 5.3L, Albumin 2.2L, Albumin/Globulin Ratio 0.71L, Anion Gap 7L, White Blood Count 9.6, Red Blood Count 4.65, Hemoglobin 12.2, Hematocrit 37.9, Mean Corpuscular Volume 81.6, Mean Corpuscular Hemoglobin 26.4L, Mean Corpuscular Hemoglobin Concent 32.3, Red Cell Distribution Width 15.5H, Platelet Count 206, Neutrophils (%) (Auto) 84.6H, Lymphocytes (%) (Auto) 10.3L, Monocytes (%) (Auto) 4.0, Eosinophils (%) ( Auto) 0.3, Basophils (%) (Auto) 0.1, Neutrophils # (Auto) 8.1H, Lymphocytes # ( Auto) 1.0L, Monocytes # (Auto) 0.4, Eosinophils # (Auto) 0.0, Basophils # (Auto ) 0.0, C-Reactive Protein, Quantitative 4.21H, Erythrocyte Sedimentation Rate 33H, Glomerular Filtration Rate 27.2L, Large Unclassified Cells # 0.1, Large Unclassified Cells % 0.7 CBC/BMP Laboratory Tests 08/11/16 06:18 Calcium Level 8.4 L, Aspartate Amino Transf (AST/SGOT) 43 H, Alanine Aminotransferase (ALT/SGPT) 36, Alkaline Phosphatase 93, Total Bilirubin 0.6, Total Protein 5.3 L, Albumin 2.2 L, Red Blood Count 4.65, Mean Corpuscular Volume 81.6, Mean Corpuscular Hemoglobin 26.4 L, Mean Corpuscular Hemoglobin Concent 32.3, Red Cell Distribution Width 15.5 H, Neutrophils (%) (Auto) 84.6 H , Lymphocytes (%) (Auto) 10.3 L, Monocytes (%) (Auto) 4.0, Eosinophils (%) (Auto ) 0.3, Basophils (%) (Auto) 0.1, Neutrophils # (Auto) 8.1 H, Lymphocytes # (Auto ) 1.0 L, Monocytes # (Auto) 0.4, Eosinophils # (Auto) 0.0, Basophils # (Auto) 0.0 Microbiology Microbiology 08/01/16 Blood Culture - Final, Complete NO GROWTH AFTER 5 DAYS 08/01/16 Blood Culture - Final, Complete NO GROWTH AFTER 5 DAYS 08/01/16 Gram Stain - Final, Complete 08/01/16 Sputum Culture - Final, Complete Yeast Like Organism 08/01/16 Influenza Virus Type A Antigen - Final, Complete 08/01/16 Influenza Virus Type B Antigen - Final, Complete JUDE LOJA PA-C Aug 11, 2016 10:47 ALBERTO KEITA MD Aug 11, 2016 15:05
[2016-08-11] MEDS: IPRATROPIUM 0.5MG/ALBUTEROL 2.5MG INH SOL UD 3ML (DUONEB)(J7620) NEB PRN (12:22)
[2016-08-11] MEDS: ALPRAZolam 0.25 MG TAB PO PRN (12:24)
[2016-08-11 14:00] VITALS: BP 137/94
[2016-08-11] MEDS: ATORVASTATIN 20 MG TAB PO SCH (21:15)
[2016-08-11 22:00] VITALS: BP 133/76
[2016-08-12] MEDS: METOPROLOL TART 25 MG TABLET PO SCH ×4 (00:01→18:00)
[2016-08-12] MEDS: IPRATROPIUM 0.5MG/ALBUTEROL 2.5MG INH SOL UD 3ML (DUONEB)(J7620) NEB SCH ×4 (01:28→19:39)
[2016-08-12 05:52] LABS: BASO % 0.1 % (0.0-1.0); LARGE UNSTAINED CELL # 0.1 K/mm3 (0.0-0.4); LARGE UNSTAINED CELL % 0.6 % (0.0-4.0); LYMPH # 1.1 K/mm3 (1.5-4.5); LYMPH % 11.2 % (24.0-44.0); MEAN CORPUSCULAR HEMOGLOBIN 26.6 pg (27.0-33.0); MEAN CORPUSCULAR HGB CONC 32.2 g/dl (32.0-36.5); MEAN CORPUSCULAR VOLUME 82.6 fl (80.0-96.0); MONO # 0.4 K/mm3 (0.0-0.8); MONO % 4.2 % (0.0-5.0); NEUTROPHILS # 8.1 K/mm3 (1.8-7.7); NEUTROPHILS % 83.9 % (36.0-66.0); PLATELET COUNT, AUTOMATED 202 k/mm3 (150-450); RED CELL DISTRIBUTION WIDTH 15.6 % (11.5-14.5); WHITE BLOOD COUNT 9.6 K/mm3 (4.0-10.0)
[2016-08-12 06:00] VITALS: BP 141/76
[2016-08-12] MEDS: LEVOTHYROXINE 0.1 MG TAB (100 MCG) PO SCH (06:02)
[2016-08-12] MEDS: SLF 3 ML SYR IV SCH ×3 (06:02→21:14)
[2016-08-12 06:09] LABS: ALBUMIN 2.2 GM/DL (3.2-5.2); ALBUMIN/GLOBULIN RATIO 0.71 (1.00-1.93); BILIRUBIN,TOTAL 0.6 MG/DL (0.2-1.0); CREATININE FOR GFR 2.02 MG/DL (0.55-1.02); TOTAL PROTEIN 5.3 GM/DL (6.4-8.2)
[2016-08-12 06:30] LABS: POTASSIUM SERUM 5.5 MEQ/L (3.5-5.1)
[2016-08-12] MEDS: LEVEMIR (INSULIN DETEMIR) 1 UNITS/0.01ML SC SCH ×2 (08:29→21:14)
[2016-08-12] MEDS: HumaLOG INSULIN (NovoLOG) PER UNIT SC SCH ×3 (08:29→17:59)
[2016-08-12 09:30] VITALS: BP 152/68
[2016-08-12] MEDS: OMEPRAZOLE 20 MG CAP PO SCH (09:54)
[2016-08-12] MEDS: BACTRIM 80MG/400MG TAB PO SCH (09:54)
[2016-08-12] MEDS: SPIRONOLACTONE 25 MG TAB PO SCH (09:54)
[2016-08-12] MEDS: APIXABAN 5 MG TAB (ELIQUIS) PO SCH ×2 (09:55→21:13)
[2016-08-12] MEDS: methylPREDNISolone 4 MG TAB PO SCH (09:55)
[2016-08-12] MEDS: FLUTICASONE PROP 0.05% NASAL SPRAY 16 GM (FLONASE) SCH (09:56)
[2016-08-12 11:00] VITALS: BP 152/68
[2016-08-12] MEDS: IPRATROPIUM 0.5MG/ALBUTEROL 2.5MG INH SOL UD 3ML (DUONEB)(J7620) NEB PRN (12:25)
[2016-08-12] MEDS ORDERED: LEVO100T5 PO (12:27)
[2016-08-12] MEDS ORDERED: FLUTISP (12:27)
[2016-08-12] MEDS ORDERED: METO25TAB PO (12:27)
[2016-08-12] MEDS ORDERED: METH4TAB6 PO (12:27)
[2016-08-12] MEDS: ALPRAZolam 0.25 MG TAB PO PRN (16:06)
--- NOTE | 2016-08-12 17:01 | IPNPDOC ---
Subjective Date Seen The patient was seen on 08/12/16. Subjective Chief Complaint/HPI The patient is a 71-year-old female admitted with a reason for visit of Shortness Of Breath. Events since last encounter When I saw Ms. Willard today she reported that she continued to have shortness of breath, but it was at her new baseline. The plan was for her to be discharged home today and she reluctantly agreed to this, although she is discouraged about her new level of dyspnea and limitation. Past nursing to check her out oxygen requirements while I prepared the discharge orders. During that process they found that she desaturated to 74% while walking approximately 10 feet with 3 L of oxygen on. She needed to put her CPAP back on to recover from this short walk. We decided she was not ready for discharge today and ask pulmonology to see her again. General: Reports: Fatigue, Normal Appetite Constitutional: Denies: Chills, Fever Pulmonary: Reports: Dyspnea Cardiovascular: Denies: Chest Pain, Palpitations Genitourinary: Denies: Dysuria Psych: Reports: Mood Normal Objective Physical Examination General Exam: Positive: Alert, No Acute Distress (laying on her bed in street clothes with the head of the bed elevated to about 30 when I entered the room.) ENT Exam: Positive: Atraumatic, Tongue Midline Neck Exam: Positive: Supple, Negative: JVD, Lymphadenopathy Chest Exam: Positive: Diminished (throughout), Rales (scattered and coarsely throughout) Heart Exam: Positive: Normal S1, Normal S2, Rate Normal Telemetry: Positive: No significant arrhythmia Abdomen Exam: Positive: Normal bowel sounds, Soft, Negative: Tenderness Extremity Exam: Negative: Cyanosis, Edema Psych Exam: Positive: Anxiety, Mental status NL, Mood NL Assessment /Plan Problems (1) Hypoxia Status: Acute Response to Treatment: Stable Discussed With: Patient, Family with Pt Consent Problem Specific Plan: Consult Specialist Problem Text: 08/12 - patient is symptomatically stable while laying in bed. She rapidly desaturates when she gets up and moves around at all. She is not yet able to be safely discharged home. We'll need to work more with her on conditioning both of her lungs and with physical therapy. 08/11 - Pt remains stable. D/w pt need for ambulation. Will consult PFS to arrange home care for pt, lives with her who is disabled. Not a lot of family support. She is hopeful she will be able to go home tomorrow 08/12. Her dgr doesn't have to work and will be able to help her get settle tomorrow. 08/10 - Condition remains same. D/w PCC this morning need for pt to be ambulated without cont pulse ox, d/t her Pulm fibrosis she will have desats, her ability to participate needs to be based more upon her symptoms than her pulse ox at the time of or during. 08/09 - Conditon remains same, Pulm is following, feels this is likely assoc with Amiodorone toxicity, especially given the half life of the medication and the ability for storage in adipose tissue (pt has an elevated BMI). Labs pending to r/o connective tissue d/o. 08/08 3-4 L/min via NC on non-oxygen dependent female. Sats maintained 90-94%, but desaturates at times to 70s with activity. We have been unable to wean her off of O2. CT chest shows worsening ground glass opacities in bases, which could be worsening pulmonary fibrosis. D/w Pulm - they are continuing methylprednisolone and ordered labwork to work up connective tissue disease. May need to consider an open lung biopsy, but I d/w patient that even a biopsy may not give us a clear diagnosis. She wants to see Pulm in [place] - I d/w her that if she stablizes on O2, we may need to discharge her home on O2 and arrange outpatient followup with Pulm at a tertiary center. (2) Pulmonary fibrosis Status: Chronic Response to Treatment: Progressing Discussed With: Breaker Table Worker, Patient Problem Specific Plan: Consult Specialist Problem Text: 08/12 - I asked Dr. Boyd to see this patient again to see if she has any additional insight into why she is so dyspneic and desaturate so quickly. 08/11 - Resp stable. see above. 08/10 - see above 08/09 - Mgmt per pulm. 08/08 Pulmonology following. Has been on several bouts of steroids, and in the past had improvement with steroids but has been persistently hypoxic on steroids here. CT shows worsening fibrosis. Was thought to be related to Amiodarone, however her accounts manager noted that she had pulmonary fibrosis on a CT scan prior to starting Amiodarone. Has been off of Amiodarone for approximately 8 weeks. (3) Atrial fibrillation with RVR Status: Resolved Problem Text: 08/12 - she remains rate controlled on Lopressor. We'll continue this regimen. 08/10 - Rate remains pretty well controlled, had documented rate of 110 last evening, otherwise mostly in the 80-90 range. 08/09 -rate improved, consistently less than 100 08/08 Metoprolol 25 mg po q 6 hrs. Parameters to HOLD were placed in orders. Monitor. EKG: Afib with RVR: 153 08/03: Remains in sinus 08/04/2016: rate improved, NSR. Continue Lopressor. (4) CKD (chronic kidney disease) stage 3, GFR 30-59 ml/min Status: Chronic Problem Text: 08/12 - her GFR is following a bit today. She looks dry. I discussed this with Dr. Boyd. We will hold her spironolactone, monitor. 08/10 - Appears baseline 1.5-1.8, Scr today 1.94. 08/09 - Lasix d/c'd yesterday, appears compensated. Scr continues to trend up, 1.83 today, 1.74 yest, enc po intake. 08/08 Cr a bit worse today, likely due to furosemide given yesterday and today - will d/c furosemide. (5) HTN (hypertension) Status: Chronic Response to Treatment: Stable Discussed With: Breaker Table Worker Problem Text: Her blood pressures creeping up again a little. However I'm going to stop her spironolactone because of the effects as on her GFR and her potassium level. We'll need to monitor her pressure more carefully. (6) Anxiety Status: Chronic Response to Treatment: Stable Problem Text: 08/12 - no significant change but she was able to tolerate the plan of going home and then having to stay without too much difficulty. 08/09 - Started on xanax yesterday - she feels that it helps with being irritable but she does not think it helps her anxiety (KES) (7) GERD (gastroesophageal reflux disease) Status: Chronic Response to Treatment: Stable (8) T2DM (type 2 diabetes mellitus) Status: Chronic Response to Treatment: Stable Problem Text: Hyperglycemia is likely due to increased dose of methylprednisolone. Were adjusting her diuretics today. It would not surprise me if she has a bit of a glucose diuresis as well. Continue to monitor for now. Once we get her kidneys functioning well again I would like to to tighten her blood glucose levels down a little farther. (9) DEVEN on CPAP Status: Chronic Problem Text: Encouraged to use while sleeping. She has also been needing to use it for recovery during walking while awake. (10) Hypothyroidism (acquired) Status: Chronic Problem Text: TSH 0.3 with elevated T3 upon admission. Dosing decreased to 100 mcg from 125 mcg. (11) Lactic acid acidosis Status: Resolved Response to Treatment: Stable, Improving Problem Text: repeat lactic acid normal. (12) Rectal bleeding Status: Resolved Problem Text: 08/10 - Hgb down slightly from 13.3 to 12.7, she had only one bloody BM, BM later in the day was without evidence of blood. [address] Kahn noted in [facility], no report in the system 08/09 - Patient had one bloody BM with bright red blood; no further BMs today; denies abdominal pain. Will monitor H/H - advised nurse to call if she has further bloody BMs and we will order a CBC. (KEAmy) Plan/VTE VTE Prophylaxis Ordered?: Yes (Eliquis) VS, I&O, 24H, Fishbone Vital Signs/I&O Vital Signs Date Time Temp Pulse Resp B/P Pulse Ox O2 Delivery O2 Flow Rate FiO2 08/12/16 12:58 86 128/74 08/12/16 11:00 98.6 24 94 Nasal Cannula 3.0 I&O- Last 24 Hours up to 6 AM 08/12/16 05:59 Intake Total 1920 ml Output Total 900 ml Balance 1020 ml Laboratory Data 24H LABS Laboratory Tests 2 08/11/16 16:49: Bedside Glucose (Misc Panel) 340H 08/11/16 20:44: Bedside Glucose (Misc Panel) 418H 08/12/16 05:30: Blood Urea Nitrogen 41H, Creatinine 2.02H, Sodium Level 132L, Potassium Level 5.5H, Chloride Level 99, Carbon Dioxide Level 25, Calcium Level 8.0L, Aspartate Amino Transf (AST/SGOT) 29, Alanine Aminotransferase (ALT/SGPT) 39, Alkaline Phosphatase 105, Total Bilirubin 0.6, Total Protein 5.3L, Albumin 2.2L, Albumin/ Globulin Ratio 0.71L, Anion Gap 8, White Blood Count 9.6, Red Blood Count 4.59, Hemoglobin 12.2, Hematocrit 37.9, Mean Corpuscular Volume 82.6, Mean Corpuscular Hemoglobin 26.6L, Mean Corpuscular Hemoglobin Concent 32.2, Red Cell Distribution Width 15.6H, Platelet Count 202, Neutrophils (%) (Auto) 83.9H , Lymphocytes (%) (Auto) 11.2L, Monocytes (%) (Auto) 4.2, Eosinophils (%) (Auto ) 0.0, Basophils (%) (Auto) 0.1, Neutrophils # (Auto) 8.1H, Lymphocytes # (Auto ) 1.1L, Monocytes # (Auto) 0.4, Eosinophils # (Auto) 0.0, Basophils # (Auto) 0.0 , Glomerular Filtration Rate 26.0L, Large Unclassified Cells # 0.1, Large Unclassified Cells % 0.6 08/12/16 11:23: Bedside Glucose (Misc Panel) 244H CBC/BMP Laboratory Tests 08/12/16 05:30 Calcium Level 8.0 L, Aspartate Amino Transf (AST/SGOT) 29, Alanine Aminotransferase (ALT/SGPT) 39, Alkaline Phosphatase 105, Total Bilirubin 0.6, Total Protein 5.3 L, Albumin 2.2 L, Red Blood Count 4.59, Mean Corpuscular Volume 82.6, Mean Corpuscular Hemoglobin 26.6 L, Mean Corpuscular Hemoglobin Concent 32.2, Red Cell Distribution Width 15.6 H, Neutrophils (%) (Auto) 83.9 H , Lymphocytes (%) (Auto) 11.2 L, Monocytes (%) (Auto) 4.2, Eosinophils (%) (Auto ) 0.0, Basophils (%) (Auto) 0.1, Neutrophils # (Auto) 8.1 H, Lymphocytes # (Auto ) 1.1 L, Monocytes # (Auto) 0.4, Eosinophils # (Auto) 0.0, Basophils # (Auto) 0.0 Ronald Freeman MD Aug 12, 2016 16:28
[2016-08-12] MEDS: ATORVASTATIN 20 MG TAB PO SCH (21:13)
[2016-08-12 22:00] VITALS: BP 153/67
[2016-08-13] MEDS: METOPROLOL TART 25 MG TABLET PO SCH ×4 (00:15→17:46)
[2016-08-13] MEDS: IPRATROPIUM 0.5MG/ALBUTEROL 2.5MG INH SOL UD 3ML (DUONEB)(J7620) NEB SCH ×4 (01:13→19:55)
[2016-08-13 05:37] LABS: MEAN CORPUSCULAR HEMOGLOBIN 28.8 pg (27.0-33.0); MEAN CORPUSCULAR HGB CONC 35.4 g/dl (32.0-36.5); MEAN CORPUSCULAR VOLUME 81.3 fl (80.0-96.0); RED CELL DISTRIBUTION WIDTH 15.7 % (11.5-14.5); WHITE BLOOD COUNT 10.9 K/mm3 (4.0-10.0)
[2016-08-13] MEDS: LEVOTHYROXINE 0.1 MG TAB (100 MCG) PO SCH (05:40)
[2016-08-13] MEDS: SLF 3 ML SYR IV SCH ×2 (05:41→14:45)
[2016-08-13 05:54] LABS: ALBUMIN 2.3 GM/DL (3.2-5.2); ALBUMIN/GLOBULIN RATIO 0.74 (1.00-1.93); BILIRUBIN,TOTAL 0.6 MG/DL (0.2-1.0); CALCIUM LEVEL 8.3 MG/DL (8.8-10.2); CREATININE FOR GFR 1.99 MG/DL (0.55-1.02); GLOMERULAR FILTRATION RATE 26.5 (>45); MAGNESIUM LEVEL 2.2 MG/DL (1.8-2.4); POTASSIUM SERUM 5.1 MEQ/L (3.5-5.1); TOTAL PROTEIN 5.4 GM/DL (6.4-8.2)
[2016-08-13 06:00] VITALS: BP 144/71
[2016-08-13] MEDS: OMEPRAZOLE 20 MG CAP PO SCH (08:22)
[2016-08-13] MEDS: APIXABAN 5 MG TAB (ELIQUIS) PO SCH ×2 (08:22→21:09)
[2016-08-13] MEDS: methylPREDNISolone 4 MG TAB PO SCH (08:22)
[2016-08-13] MEDS: BACTRIM 80MG/400MG TAB PO SCH (08:22)
[2016-08-13] MEDS: LEVEMIR (INSULIN DETEMIR) 1 UNITS/0.01ML SC SCH ×2 (08:23→21:10)
[2016-08-13] MEDS: HumaLOG INSULIN (NovoLOG) PER UNIT SC SCH ×3 (08:24→17:46)
[2016-08-13] MEDS: FLUTICASONE PROP 0.05% NASAL SPRAY 16 GM (FLONASE) SCH (08:24)
[2016-08-13 14:00] VITALS: BP 136/60
--- NOTE | 2016-08-13 18:38 | IPNPDOC ---
Subjective Date Seen The patient was seen on 08/13/16. Subjective Chief Complaint/HPI The patient is a 71-year-old female admitted with a reason for visit of Shortness Of Breath. Events since last encounter She reports check she feels a bit better today. She thinks the Ez-Pap is helping. She is also been getting up and moving around more ("the nurses are taking me for walks"). All of this seems to be helping and she feels she is progressing towards discharge now. General: Reports: Normal Appetite Constitutional: Reports: Weakness, Denies: Chills, Fever Pulmonary: Reports: Cough, Dyspnea Cardiovascular: Denies: Chest Pain, Palpitations Psych: Reports: Mood Normal Objective Physical Examination General Exam: Positive: Alert, No Acute Distress (laying comfortably in bed when I entered the room) ENT Exam: Positive: Atraumatic, Mucous membr. moist/pink Neck Exam: Positive: Supple, Negative: Lymphadenopathy Chest Exam: Positive: Diminished (throughout), Rales (still present in both posterior lung medina but much improved from yesterday) Heart Exam: Positive: Normal S1, Normal S2, Rate Normal Abdomen Exam: Positive: Normal bowel sounds, Soft, Negative: Tenderness Extremity Exam: Negative: Cyanosis, Edema Psych Exam: Positive: Mood NL Assessment /Plan Problems (1) Hypoxia Status: Acute Response to Treatment: Improving Discussed With: Patient Problem Specific Plan: Consult Specialist, Monitor Clinically Problem Text: 08/13 - he still desaturates when she walks, but reports that she recovers much quicker. The nurses are currently working with turning her oxygen up to 5 L when she moves around and back to her baseline of 3 L when she is at rest. This seems to be helping. She has not needed her CPAP to recover today. 08/12 - patient is symptomatically stable while laying in bed. She rapidly desaturates when she gets up and moves around at all. She is not yet able to be safely discharged home. We'll need to work more with her on conditioning both of her lungs and with physical therapy. 08/11 - Pt remains stable. D/w pt need for ambulation. Will consult PFS to arrange home care for pt, lives with her who is disabled. Not a lot of family support. She is hopeful she will be able to go home tomorrow 08/12. Her dgr doesn't have to work and will be able to help her get settle tomorrow. 08/10 - Condition remains same. D/w PCC this morning need for pt to be ambulated without cont pulse ox, d/t her Pulm fibrosis she will have desats, her ability to participate needs to be based more upon her symptoms than her pulse ox at the time of or during. 08/09 - Conditon remains same, Pulm is following, feels this is likely assoc with Amiodorone toxicity, especially given the half life of the medication and the ability for storage in adipose tissue (pt has an elevated BMI). Labs pending to r/o connective tissue d/o. 08/08 3-4 L/min via NC on non-oxygen dependent female. Sats maintained 90-94%, but desaturates at times to 70s with activity. We have been unable to wean her off of O2. CT chest shows worsening ground glass opacities in bases, which could be worsening pulmonary fibrosis. D/w Pulm - they are continuing methylprednisolone and ordered labwork to work up connective tissue disease. May need to consider an open lung biopsy, but I d/w patient that even a biopsy may not give us a clear diagnosis. She wants to see Pulm in [place] - I d/w her that if she stablizes on O2, we may need to discharge her home on O2 and arrange outpatient followup with Pulm at a tertiary center. (2) Pulmonary fibrosis Status: Chronic Response to Treatment: Progressing Discussed With: Technical Spec, Patient Problem Specific Plan: Consult Specialist Problem Text: 08/13 -clearly the fibrosis is still present but she seems to be improving symptomatically. 08/12 - I asked Dr. Boyd to see this patient again to see if she has any additional insight into why she is so dyspneic and desaturate so quickly. 08/11 - Resp stable. see above. 08/10 - see above 08/09 - Mgmt per pulm. 08/08 Pulmonology following. Has been on several bouts of steroids, and in the past had improvement with steroids but has been persistently hypoxic on steroids here. CT shows worsening fibrosis. Was thought to be related to Amiodarone, however her topline beading machine tender noted that she had pulmonary fibrosis on a CT scan prior to starting Amiodarone. Has been off of Amiodarone for approximately 8 weeks. (3) Atrial fibrillation with RVR Status: Chronic Response to Treatment: Stable Problem Text: 08/12 & - she remains rate controlled on Lopressor. We'll continue this regimen. 08/10 - Rate remains pretty well controlled, had documented rate of 110 last evening, otherwise mostly in the 80-90 range. 08/09 -rate improved, consistently less than 100 08/08 Metoprolol 25 mg po q 6 hrs. Parameters to HOLD were placed in orders. Monitor. EKG: Afib with RVR: 153 08/03: Remains in sinus 08/04/2016: rate improved, NSR. Continue Lopressor. (4) CKD (chronic kidney disease) stage 3, GFR 30-59 ml/min Status: Chronic Problem Text: 08/13 - there is a very slight improvement off the spironolactone but this is not substantial. We'll continue to monitor. 08/12 - her GFR is following a bit today. She looks dry. I discussed this with Dr. Boyd. We will hold her spironolactone, monitor. 08/10 - Appears baseline 1.5-1.8, Scr today 1.94. 08/09 - Lasix d/c'd yesterday, appears compensated. Scr continues to trend up, 1.83 today, 1.74 yest, enc po intake. 08/08 Cr a bit worse today, likely due to furosemide given yesterday and today - will d/c furosemide. (5) HTN (hypertension) Status: Chronic Response to Treatment: Stable Discussed With: Technical Spec Problem Text: Her blood pressures are stable, although not ideally controlled off her spironolactone. She reports that she had been on an ARB at one point in time. We'll continue current regimen for now. Monitor. (6) Anxiety Status: Chronic Response to Treatment: Stable Problem Text: 08/13 - she seems to be doing much better today now that she has been given a little bit of space to improve on her own. We'll continue to monitor. 08/12 - no significant change but she was able to tolerate the plan of going home and then having to stay without too much difficulty. 08/09 - Started on xanax yesterday - she feels that it helps with being irritable but she does not think it helps her anxiety (KES) (7) GERD (gastroesophageal reflux disease) Status: Chronic Response to Treatment: Stable (8) T2DM (type 2 diabetes mellitus) Status: Chronic Response to Treatment: Stable Problem Text: Hyperglycemia is likely due to increased dose of methylprednisolone. It would not surprise me if she has a bit of a glucose diuresis which may be part of why her kidney functions are increased. Continue to monitor for now. Once we get her kidneys functioning well again I would like to to tighten her blood glucose levels down a little farther. (9) DEVEN on CPAP Status: Chronic Problem Text: I am pleased that she is not needing this during the day for recovery from movement. I reinforced that she does need to use it whenever she is resting. She affirms this. (10) Hypothyroidism (acquired) Status: Chronic Problem Text: TSH 0.3 with elevated T3 upon admission. Dosing decreased to 100 mcg from 125 mcg. (11) Lactic acid acidosis Status: Resolved Response to Treatment: Stable, Improving Problem Text: repeat lactic acid normal. (12) Rectal bleeding Status: Resolved Problem Text: 08/10 - Hgb down slightly from 13.3 to 12.7, she had only one bloody BM, BM later in the day was without evidence of blood. [address] Kahn noted in [facility], no report in the system 08/09 - Patient had one bloody BM with bright red blood; no further BMs today; denies abdominal pain. Will monitor H/H - advised nurse to call if she has further bloody BMs and we will order a CBC. (KES) Plan/VTE VTE Prophylaxis Ordered?: Yes (Eliquis) VS, I&O, 24H, Fishbone Vital Signs/I&O Vital Signs Date Time Temp Pulse Resp B/P Pulse Ox O2 Delivery O2 Flow Rate FiO2 08/13/16 17:46 80 159/79 08/13/16 14:00 98.5 22 94 Nasal Cannula 3.0 I&O- Last 24 Hours up to 6 AM 08/13/16 05:59 Intake Total 920 ml Output Total 1200 ml Balance -280 ml Laboratory Data 24H LABS Laboratory Tests 2 08/13/16 05:15: Blood Urea Nitrogen 45H, Creatinine 1.99H, Sodium Level 134L, Potassium Level 5.1, Chloride Level 101, Carbon Dioxide Level 24, Calcium Level 8.3L, Aspartate Amino Transf (AST/SGOT) 26, Alanine Aminotransferase (ALT/SGPT) 39, Alkaline Phosphatase 103, Total Bilirubin 0.6, Total Protein 5.4L, Albumin 2.3L, Albumin/ Globulin Ratio 0.74L, Anion Gap 9, Glomerular Filtration Rate 26.5L, Magnesium Level 2.2 08/13/16 11:35: Bedside Glucose (Misc Panel) 78L 08/13/16 16:45: Bedside Glucose (Misc Panel) 223H CBC/BMP Laboratory Tests 08/13/16 05:15 Calcium Level 8.3 L, Aspartate Amino Transf (AST/SGOT) 26, Alanine Aminotransferase (ALT/SGPT) 39, Alkaline Phosphatase 103, Total Bilirubin 0.6, Total Protein 5.4 L, Albumin 2.3 L, Red Blood Count 4.44, Mean Corpuscular Volume 81.3, Mean Corpuscular Hemoglobin 28.8, Mean Corpuscular Hemoglobin Concent 35.4, Red Cell Distribution Width 15.7 H Ronald Freeman MD Aug 13, 2016 6:38 pm
[2016-08-13] MEDS: ATORVASTATIN 20 MG TAB PO SCH (21:09)
[2016-08-13 22:00] VITALS: BP 137/65
[2016-08-14] MEDS: METOPROLOL TART 25 MG TABLET PO SCH ×4 (00:30→18:33)
[2016-08-14] MEDS: IPRATROPIUM 0.5MG/ALBUTEROL 2.5MG INH SOL UD 3ML (DUONEB)(J7620) NEB SCH ×4 (01:48→20:00)
[2016-08-14] MEDS: IPRATROPIUM 0.5MG/ALBUTEROL 2.5MG INH SOL UD 3ML (DUONEB)(J7620) NEB PRN (02:44)
[2016-08-14] MEDS: LEVOTHYROXINE 0.1 MG TAB (100 MCG) PO SCH (05:57)
[2016-08-14 06:00] VITALS: BP 118/76
[2016-08-14] MEDS: APIXABAN 5 MG TAB (ELIQUIS) PO SCH ×2 (09:23→20:53)
[2016-08-14] MEDS: OMEPRAZOLE 20 MG CAP PO SCH (09:23)
[2016-08-14] MEDS: HumaLOG INSULIN (NovoLOG) PER UNIT SC SCH ×3 (09:23→18:32)
[2016-08-14] MEDS: LEVEMIR (INSULIN DETEMIR) 1 UNITS/0.01ML SC SCH ×2 (09:24→22:17)
[2016-08-14] MEDS: BACTRIM 80MG/400MG TAB PO SCH (09:27)
[2016-08-14] MEDS: methylPREDNISolone 4 MG TAB PO SCH (09:27)
[2016-08-14] MEDS: FLUTICASONE PROP 0.05% NASAL SPRAY 16 GM (FLONASE) SCH (09:28)
--- NOTE | 2016-08-14 09:51 | IPNPDOC ---
Subjective Date Seen The patient was seen on 08/14/16. Subjective Chief Complaint/HPI The patient is a 71-year-old female admitted with a reason for visit of Shortness Of Breath. Events since last encounter Pt states she is about the same. Still with SOB. She still is de-satting with ambulation but feels it is slowly improving. Denies any CP, abd pain. Constitutional: Denies: Chills, Fever Pulmonary: Reports: Dyspnea Cardiovascular: Denies: Chest Pain Gastrointestinal: Denies: Abdominal Pain Objective Physical Examination General Exam: Positive: Alert, No Acute Distress (sitting comfortably up in bed when I entered the room) ENT Exam: Positive: Atraumatic, Mucous membr. moist/pink Neck Exam: Positive: Supple, Negative: Lymphadenopathy Chest Exam: Positive: Diminished (throughout), Rales (still present in both posterior lung medina but much improved from yesterday) Heart Exam: Positive: Normal S1, Normal S2, Rate Normal Abdomen Exam: Positive: Normal bowel sounds, Soft, Negative: Tenderness Extremity Exam: Negative: Cyanosis, Edema Psych Exam: Positive: Mood NL Assessment /Plan Problems (1) Hypoxia Status: Acute Response to Treatment: Improving Discussed With: Patient Problem Specific Plan: Consult Specialist, Monitor Clinically Problem Text: 08/13 - Pt still desaturates when she walks, but reports that she is recovering much quicker than previously. The nurses are currently working with turning her oxygen up to 5 L when she moves around and back to her baseline of 3 L when she is at rest. This seems to be helping. She has not needed her CPAP to recover today. 08/13 - she still desaturates when she walks, but reports that she recovers much quicker. The nurses are currently working with turning her oxygen up to 5 L when she moves around and back to her baseline of 3 L when she is at rest. This seems to be helping. She has not needed her CPAP to recover today. 08/12 - patient is symptomatically stable while laying in bed. She rapidly desaturates when she gets up and moves around at all. She is not yet able to be safely discharged home. We'll need to work more with her on conditioning both of her lungs and with physical therapy. 08/11 - Pt remains stable. D/w pt need for ambulation. Will consult PFS to arrange home care for pt, lives with her who is disabled. Not a lot of family support. She is hopeful she will be able to go home tomorrow 08/12. Her dgr doesn't have to work and will be able to help her get settle tomorrow. 08/10 - Condition remains same. D/w PCC this morning need for pt to be ambulated without cont pulse ox, d/t her Pulm fibrosis she will have desats, her ability to participate needs to be based more upon her symptoms than her pulse ox at the time of or during. 08/09 - Conditon remains same, Pulm is following, feels this is likely assoc with Amiodorone toxicity, especially given the half life of the medication and the ability for storage in adipose tissue (pt has an elevated BMI). Labs pending to r/o connective tissue d/o. 08/08 3-4 L/min via NC on non-oxygen dependent female. Sats maintained 90-94%, but desaturates at times to 70s with activity. We have been unable to wean her off of O2. CT chest shows worsening ground glass opacities in bases, which could be worsening pulmonary fibrosis. D/w Pulm - they are continuing methylprednisolone and ordered labwork to work up connective tissue disease. May need to consider an open lung biopsy, but I d/w patient that even a biopsy may not give us a clear diagnosis. She wants to see Pulm in [place] - I d/w her that if she stablizes on O2, we may need to discharge her home on O2 and arrange outpatient followup with Pulm at a tertiary center. (2) Pulmonary fibrosis Status: Chronic Response to Treatment: Progressing Discussed With: Weatherization Specialist, Patient Problem Specific Plan: Consult Specialist Problem Text: 08/14 - Slowly improving. 08/13 -clearly the fibrosis is still present but she seems to be improving symptomatically. 08/12 - I asked Dr. Boyd to see this patient again to see if she has any additional insight into why she is so dyspneic and desaturate so quickly. 08/11 - Resp stable. see above. 08/10 - see above 08/09 - Mgmt per pulm. 08/08 Pulmonology following. Has been on several bouts of steroids, and in the past had improvement with steroids but has been persistently hypoxic on steroids here. CT shows worsening fibrosis. Was thought to be related to Amiodarone, however her rubber liner noted that she had pulmonary fibrosis on a CT scan prior to starting Amiodarone. Has been off of Amiodarone for approximately 8 weeks. (3) Atrial fibrillation with RVR Status: Chronic Response to Treatment: Stable Problem Text: 08/14 - Rate controlled on Lopressor. On Eliquis. 08/12 & - she remains rate controlled on Lopressor. We'll continue this regimen. 08/10 - Rate remains pretty well controlled, had documented rate of 110 last evening, otherwise mostly in the 80-90 range. 08/09 -rate improved, consistently less than 100 08/08 Metoprolol 25 mg po q 6 hrs. Parameters to HOLD were placed in orders. Monitor. EKG: Afib with RVR: 153 08/03: Remains in sinus 08/04/2016: rate improved, NSR. Continue Lopressor. (4) CKD (chronic kidney disease) stage 3, GFR 30-59 ml/min Status: Chronic Problem Text: 08/14 - Today's labs pending. 08/13 - there is a very slight improvement off the spironolactone but this is not substantial. We'll continue to monitor. 08/12 - her GFR is following a bit today. She looks dry. I discussed this with Dr. Boyd. We will hold her spironolactone, monitor. 08/10 - Appears baseline 1.5-1.8, Scr today 1.94. 08/09 - Lasix d/c'd yesterday, appears compensated. Scr continues to trend up, 1.83 today, 1.74 yest, enc po intake. 08/08 Cr a bit worse today, likely due to furosemide given yesterday and today - will d/c furosemide. (5) HTN (hypertension) Status: Chronic Response to Treatment: Stable Discussed With: Weatherization Specialist Problem Text: 08/14 - BPs stable. On Lopressor. Off Spironolactone. 08/13 - Her blood pressures are stable, although not ideally controlled off her spironolactone. She reports that she had been on an ARB at one point in time. We 'll continue current regimen for now. Monitor. (6) Anxiety Status: Chronic Response to Treatment: Stable Problem Text: 08/14 - Has PRN Xanax. 08/13 - she seems to be doing much better today now that she has been given a little bit of space to improve on her own. We'll continue to monitor. 08/12 - no significant change but she was able to tolerate the plan of going home and then having to stay without too much difficulty. 08/09 - Started on xanax yesterday - she feels that it helps with being irritable but she does not think it helps her anxiety (KES) (7) GERD (gastroesophageal reflux disease) Status: Chronic Response to Treatment: Stable (8) T2DM (type 2 diabetes mellitus) Status: Chronic Response to Treatment: Stable Problem Text: Hyperglycemia is likely due to increased dose of methylprednisolone. It would not surprise me if she has a bit of a glucose diuresis which may be part of why her kidney functions are increased. Continue to monitor for now. Once we get her kidneys functioning well again I would like to to tighten her blood glucose levels down a little farther. (9) DEVEN on CPAP Status: Chronic Problem Text: I am pleased that she is not needing this during the day for recovery from movement. I reinforced that she does need to use it whenever she is resting. She affirms this. (10) Hypothyroidism (acquired) Status: Chronic Problem Text: TSH 0.3 with elevated T3 upon admission. Dosing decreased to 100 mcg from 125 mcg. (11) Lactic acid acidosis Status: Resolved Response to Treatment: Stable, Improving Problem Text: repeat lactic acid normal. (12) Rectal bleeding Status: Resolved Problem Text: 08/10 - Hgb down slightly from 13.3 to 12.7, she had only one bloody BM, BM later in the day was without evidence of blood. [address] Kahn noted in [facility], no report in the system 08/09 - Patient had one bloody BM with bright red blood; no further BMs today; denies abdominal pain. Will monitor H/H - advised nurse to call if she has further bloody BMs and we will order a CBC. (KES) Plan/VTE VTE Prophylaxis Ordered?: Yes (Eliquis) VS, I&O, 24H, Fishbone Vital Signs/I&O Vital Signs Date Time Temp Pulse Resp B/P Pulse Ox O2 Delivery O2 Flow Rate FiO2 08/14/16 06:00 97.6 77 19 118/76 94 NIPPV (BIPAP/CPAP) 08/14/16 02:40 3.0 I&O- Last 24 Hours up to 6 AM 08/14/16 06:00 Intake Total 1590 ml Output Total 1200 ml Balance 390 ml Laboratory Data 24H LABS Laboratory Tests 2 08/13/16 11:35: Bedside Glucose (Misc Panel) 78L 08/13/16 16:45: Bedside Glucose (Misc Panel) 223H 08/13/16 20:43: Bedside Glucose (Misc Panel) 354H 08/14/16 06:30: Bedside Glucose (Misc Panel) 303H Juan Saldana RPA-C Aug 14, 2016 09:51
[2016-08-14 10:40] LABS: BASO % 0.3 % (0.0-1.0); EOS # 0.1 K/mm3 (0.0-0.50); EOS % 0.8 % (0.0-3.0); LARGE UNSTAINED CELL % 0.3 % (0.0-4.0); LYMPH # 1.3 K/mm3 (1.5-4.5); LYMPH % 9.7 % (24.0-44.0); MEAN CORPUSCULAR HEMOGLOBIN 27.2 pg (27.0-33.0); MEAN CORPUSCULAR HGB CONC 33.5 g/dl (32.0-36.5); MEAN CORPUSCULAR VOLUME 81.1 fl (80.0-96.0); MONO # 0.3 K/mm3 (0.0-0.8); MONO % 2.5 % (0.0-5.0); NEUTROPHILS # 11.2 K/mm3 (1.8-7.7); NEUTROPHILS % 86.3 % (36.0-66.0); PLATELET COUNT, AUTOMATED 207 k/mm3 (150-450); RED CELL DISTRIBUTION WIDTH 15.6 % (11.5-14.5); WHITE BLOOD COUNT 12.9 K/mm3 (4.0-10.0)
[2016-08-14 10:58] LABS: ALBUMIN 2.4 GM/DL (3.2-5.2); ALBUMIN/GLOBULIN RATIO 0.89 (1.00-1.93); BILIRUBIN,TOTAL 0.6 MG/DL (0.2-1.0); CALCIUM LEVEL 8.4 MG/DL (8.8-10.2); CREATININE FOR GFR 2.02 MG/DL (0.55-1.02); TOTAL PROTEIN 5.1 GM/DL (6.4-8.2)
[2016-08-14 11:03] LABS: POTASSIUM SERUM 5.2 MEQ/L (3.5-5.1)
[2016-08-14] MEDS: ALPRAZolam 0.25 MG TAB PO PRN (12:17)
[2016-08-14 14:00] VITALS: BP 125/78
[2016-08-14] MEDS: ATORVASTATIN 20 MG TAB PO SCH (20:53)
[2016-08-14 22:00] VITALS: BP 139/65
[2016-08-15] MEDS: METOPROLOL TART 25 MG TABLET PO SCH ×5 (00:50→23:02)
[2016-08-15] MEDS: IPRATROPIUM 0.5MG/ALBUTEROL 2.5MG INH SOL UD 3ML (DUONEB)(J7620) NEB SCH ×4 (02:09→19:18)
[2016-08-15 06:00] VITALS: BP 127/75
[2016-08-15] MEDS: LEVOTHYROXINE 0.1 MG TAB (100 MCG) PO SCH (06:42)
[2016-08-15 07:02] LABS: BASO % 0.1 % (0.0-1.0); EOS % 0.2 % (0.0-3.0); LARGE UNSTAINED CELL # 0.1 K/mm3 (0.0-0.4); LARGE UNSTAINED CELL % 0.8 % (0.0-4.0); LYMPH # 1.6 K/mm3 (1.5-4.5); LYMPH % 14.4 % (24.0-44.0); MEAN CORPUSCULAR HGB CONC 34.1 g/dl (32.0-36.5); MEAN CORPUSCULAR VOLUME 82.2 fl (80.0-96.0); MONO # 0.5 K/mm3 (0.0-0.8); MONO % 4.1 % (0.0-5.0); NEUTROPHILS # 8.9 K/mm3 (1.8-7.7); NEUTROPHILS % 80.5 % (36.0-66.0); PLATELET COUNT, AUTOMATED 243 k/mm3 (150-450); RED CELL DISTRIBUTION WIDTH 15.9 % (11.5-14.5); WHITE BLOOD COUNT 11.1 K/mm3 (4.0-10.0)
[2016-08-15 07:09] LABS: ALBUMIN 2.5 GM/DL (3.2-5.2); ALBUMIN/GLOBULIN RATIO 0.78 (1.00-1.93); BILIRUBIN,TOTAL 0.6 MG/DL (0.2-1.0); CALCIUM LEVEL 8.5 MG/DL (8.8-10.2); CREATININE FOR GFR 2.19 MG/DL (0.55-1.02); GLOMERULAR FILTRATION RATE 23.7 (>45); TOTAL PROTEIN 5.7 GM/DL (6.4-8.2)
[2016-08-15 07:14] LABS: POTASSIUM SERUM 5.5 MEQ/L (3.5-5.1)
[2016-08-15] MEDS: HumaLOG INSULIN (NovoLOG) PER UNIT SC SCH ×4 (08:53→18:09)
[2016-08-15] MEDS: OMEPRAZOLE 20 MG CAP PO SCH (08:55)
[2016-08-15] MEDS: methylPREDNISolone 4 MG TAB PO SCH (08:55)
[2016-08-15] MEDS: BACTRIM 80MG/400MG TAB PO SCH (08:55)
[2016-08-15] MEDS: APIXABAN 5 MG TAB (ELIQUIS) PO SCH ×2 (08:55→21:05)
[2016-08-15] MEDS: LEVEMIR (INSULIN DETEMIR) 1 UNITS/0.01ML SC SCH ×2 (08:55→21:05)
[2016-08-15] MEDS: FLUTICASONE PROP 0.05% NASAL SPRAY 16 GM (FLONASE) SCH (08:58)
--- NOTE | 2016-08-15 11:25 | IPNPDOC ---
Subjective Date Seen The patient was seen on 08/15/16. Subjective Chief Complaint/HPI The patient is a 71-year-old female admitted with a reason for visit of Shortness Of Breath. Events since last encounter Pt states still with SOB, worse with ambulation/exertion, but slightly improved today. Still de-satting with ambulation, but improving. Denies CP, Abd pain. Constitutional: Denies: Chills, Fever Pulmonary: Reports: Dyspnea Cardiovascular: Denies: Chest Pain Gastrointestinal: Denies: Abdominal Pain Objective Physical Examination General Exam: Positive: Alert, No Acute Distress (sitting comfortably up in bed when I entered the room) ENT Exam: Positive: Atraumatic, Mucous membr. moist/pink Neck Exam: Positive: Supple, Negative: Lymphadenopathy Chest Exam: Positive: Diminished (throughout), Rales (still present in both posterior lung medina but much improved from yesterday) Heart Exam: Positive: Normal S1, Normal S2, Rate Normal Abdomen Exam: Positive: Normal bowel sounds, Soft, Negative: Tenderness Extremity Exam: Negative: Cyanosis, Edema Psych Exam: Positive: Mood NL Assessment /Plan Problems (1) Hypoxia Status: Acute Response to Treatment: Improving Discussed With: Patient Problem Specific Plan: Consult Specialist, Monitor Clinically Problem Text: 08/15 - Pt still desaturates when she walks, but reports that she is recovering quicker than previously. The nurses are currently working with turning her oxygen up to 5 L when she moves around and back to her baseline of 3 L when she is at rest. This seems to be helping. She has not needed her CPAP to recover today. 08/14 - Pt still desaturates when she walks, but reports that she is recovering much quicker than previously. The nurses are currently working with turning her oxygen up to 5 L when she moves around and back to her baseline of 3 L when she is at rest. This seems to be helping. She has not needed her CPAP to recover today. 08/13 - she still desaturates when she walks, but reports that she recovers much quicker. The nurses are currently working with turning her oxygen up to 5 L when she moves around and back to her baseline of 3 L when she is at rest. This seems to be helping. She has not needed her CPAP to recover today. 08/12 - patient is symptomatically stable while laying in bed. She rapidly desaturates when she gets up and moves around at all. She is not yet able to be safely discharged home. We'll need to work more with her on conditioning both of her lungs and with physical therapy. 08/11 - Pt remains stable. D/w pt need for ambulation. Will consult PFS to arrange home care for pt, lives with her who is disabled. Not a lot of family support. She is hopeful she will be able to go home tomorrow 08/12. Her dgr doesn't have to work and will be able to help her get settle tomorrow. 08/10 - Condition remains same. D/w PCC this morning need for pt to be ambulated without cont pulse ox, d/t her Pulm fibrosis she will have desats, her ability to participate needs to be based more upon her symptoms than her pulse ox at the time of or during. 08/09 - Conditon remains same, Pulm is following, feels this is likely assoc with Amiodorone toxicity, especially given the half life of the medication and the ability for storage in adipose tissue (pt has an elevated BMI). Labs pending to r/o connective tissue d/o. 08/08 3-4 L/min via NC on non-oxygen dependent female. Sats maintained 90-94%, but desaturates at times to 70s with activity. We have been unable to wean her off of O2. CT chest shows worsening ground glass opacities in bases, which could be worsening pulmonary fibrosis. D/w Pulm - they are continuing methylprednisolone and ordered labwork to work up connective tissue disease. May need to consider an open lung biopsy, but I d/w patient that even a biopsy may not give us a clear diagnosis. She wants to see Pulm in [place] - I d/w her that if she stablizes on O2, we may need to discharge her home on O2 and arrange outpatient followup with Pulm at a tertiary center. (2) Pulmonary fibrosis Status: Chronic Response to Treatment: Progressing Discussed With: Cylinder Dyer, Patient Problem Specific Plan: Consult Specialist Problem Text: 08/15 - Slowly improving. 08/14 - Slowly improving. 08/13 -clearly the fibrosis is still present but she seems to be improving symptomatically. 08/12 - I asked Dr. Boyd to see this patient again to see if she has any additional insight into why she is so dyspneic and desaturate so quickly. 08/11 - Resp stable. see above. 08/10 - see above 08/09 - Mgmt per pulm. 08/08 Pulmonology following. Has been on several bouts of steroids, and in the past had improvement with steroids but has been persistently hypoxic on steroids here. CT shows worsening fibrosis. Was thought to be related to Amiodarone, however her monorail helper noted that she had pulmonary fibrosis on a CT scan prior to starting Amiodarone. Has been off of Amiodarone for approximately 8 weeks. (3) Atrial fibrillation with RVR Status: Chronic Response to Treatment: Stable Problem Text: 08/15 - Rate controlled on Lopressor. On Eliquis. 08/14 - Rate controlled on Lopressor. On Eliquis. 08/12 & - she remains rate controlled on Lopressor. We'll continue this regimen. 08/10 - Rate remains pretty well controlled, had documented rate of 110 last evening, otherwise mostly in the 80-90 range. 08/09 -rate improved, consistently less than 100 08/08 Metoprolol 25 mg po q 6 hrs. Parameters to HOLD were placed in orders. Monitor. EKG: Afib with RVR: 153 08/03: Remains in sinus 08/04/2016: rate improved, NSR. Continue Lopressor. (4) CKD (chronic kidney disease) stage 3, GFR 30-59 ml/min Status: Chronic Problem Text: 08/15- Renal functions have been trending up. Spironolactone was d/c'ed. D/W attending. 08/14 - Today's labs pending. 08/13 - there is a very slight improvement off the spironolactone but this is not substantial. We'll continue to monitor. 08/12 - her GFR is following a bit today. She looks dry. I discussed this with Dr. Boyd. We will hold her spironolactone, monitor. 08/10 - Appears baseline 1.5-1.8, Scr today 1.94. 08/09 - Lasix d/c'd yesterday, appears compensated. Scr continues to trend up, 1.83 today, 1.74 yest, enc po intake. 08/08 Cr a bit worse today, likely due to furosemide given yesterday and today - will d/c furosemide. (5) HTN (hypertension) Status: Chronic Response to Treatment: Stable Discussed With: Cylinder Dyer Problem Text: 08/15 - BPs stable. On Lopressor. Off Spironolactone. 08/14 - BPs stable. On Lopressor. Off Spironolactone. 08/13 - Her blood pressures are stable, although not ideally controlled off her spironolactone. She reports that she had been on an ARB at one point in time. We 'll continue current regimen for now. Monitor. (6) Anxiety Status: Chronic Response to Treatment: Stable Problem Text: 08/15 - Has PRN Xanax. 08/14 - Has PRN Xanax. 08/13 - she seems to be doing much better today now that she has been given a little bit of space to improve on her own. We'll continue to monitor. 08/12 - no significant change but she was able to tolerate the plan of going home and then having to stay without too much difficulty. 08/09 - Started on xanax yesterday - she feels that it helps with being irritable but she does not think it helps her anxiety (KES) (7) GERD (gastroesophageal reflux disease) Status: Chronic Response to Treatment: Stable (8) T2DM (type 2 diabetes mellitus) Status: Chronic Response to Treatment: Stable Problem Text: Hyperglycemia is likely due to increased dose of methylprednisolone. It would not surprise me if she has a bit of a glucose diuresis which may be part of why her kidney functions are increased. Continue to monitor for now. Once we get her kidneys functioning well again I would like to to tighten her blood glucose levels down a little farther. (9) DEVEN on CPAP Status: Chronic Problem Text: I am pleased that she is not needing this during the day for recovery from movement. I reinforced that she does need to use it whenever she is resting. She affirms this. (10) Hypothyroidism (acquired) Status: Chronic Problem Text: TSH 0.3 with elevated T3 upon admission. Dosing decreased to 100 mcg from 125 mcg. (11) Lactic acid acidosis Status: Resolved Response to Treatment: Stable, Improving Problem Text: repeat lactic acid normal. (12) Rectal bleeding Status: Resolved Problem Text: 08/10 - Hgb down slightly from 13.3 to 12.7, she had only one bloody BM, BM later in the day was without evidence of blood. [address] Kahn noted in [facility], no report in the system 08/09 - Patient had one bloody BM with bright red blood; no further BMs today; denies abdominal pain. Will monitor H/H - advised nurse to call if she has further bloody BMs and we will order a CBC. (KES) Plan/VTE VTE Prophylaxis Ordered?: Yes (Eliquis) VS, I&O, 24H, Fishbone Vital Signs/I&O Vital Signs Date Time Temp Pulse Resp B/P Pulse Ox O2 Delivery O2 Flow Rate FiO2 08/15/16 06:43 87 129/67 08/15/16 06:00 97.1 19 96 NIPPV (BIPAP/CPAP) 08/14/16 23:55 3.0 I&O- Last 24 Hours up to 6 AM 08/15/16 06:00 Intake Total 420 ml Output Total 750 ml Balance -330 ml Laboratory Data 24H LABS Laboratory Tests 2 08/14/16 11:22: Bedside Glucose (Misc Panel) 243H 08/14/16 16:35: Bedside Glucose (Misc Panel) 124H 08/14/16 21:06: Bedside Glucose (Misc Panel) 257H 08/15/16 06:28: Blood Urea Nitrogen 44H, Creatinine 2.19H, Sodium Level 138, Potassium Level 5.5H, Chloride Level 104, Carbon Dioxide Level 28, Calcium Level 8.5L, Aspartate Amino Transf (AST/SGOT) 21, Alanine Aminotransferase (ALT/SGPT) 41, Alkaline Phosphatase 111, Total Bilirubin 0.6, Total Protein 5.7L, Albumin 2.5L , Albumin/Globulin Ratio 0.78L, Anion Gap 6L, White Blood Count 11.1H, Red Blood Count 4.92, Hemoglobin 13.8, Hematocrit 40.4, Mean Corpuscular Volume 82.2 , Mean Corpuscular Hemoglobin 28.0, Mean Corpuscular Hemoglobin Concent 34.1, Red Cell Distribution Width 15.9H, Platelet Count 243, Neutrophils (%) (Auto) 80.5H, Lymphocytes (%) (Auto) 14.4L, Monocytes (%) (Auto) 4.1, Eosinophils (%) ( Auto) 0.2, Basophils (%) (Auto) 0.1, Neutrophils # (Auto) 8.9H, Lymphocytes # ( Auto) 1.6, Monocytes # (Auto) 0.5, Eosinophils # (Auto) 0.0, Basophils # (Auto) 0.0, Glomerular Filtration Rate 23.7L, Large Unclassified Cells # 0.1, Large Unclassified Cells % 0.8 CBC/BMP Laboratory Tests 08/15/16 06:28 Calcium Level 8.5 L, Aspartate Amino Transf (AST/SGOT) 21, Alanine Aminotransferase (ALT/SGPT) 41, Alkaline Phosphatase 111, Total Bilirubin 0.6, Total Protein 5.7 L, Albumin 2.5 L, Red Blood Count 4.92, Mean Corpuscular Volume 82.2, Mean Corpuscular Hemoglobin 28.0, Mean Corpuscular Hemoglobin Concent 34.1, Red Cell Distribution Width 15.9 H, Neutrophils (%) (Auto) 80.5 H , Lymphocytes (%) (Auto) 14.4 L, Monocytes (%) (Auto) 4.1, Eosinophils (%) (Auto ) 0.2, Basophils (%) (Auto) 0.1, Neutrophils # (Auto) 8.9 H, Lymphocytes # (Auto ) 1.6, Monocytes # (Auto) 0.5, Eosinophils # (Auto) 0.0, Basophils # (Auto) 0.0 Juan Saldana RPA-C Aug 15, 2016 11:25
[2016-08-15 14:00] VITALS: BP 134/68
[2016-08-15] MEDS: ATORVASTATIN 20 MG TAB PO SCH (21:05)
[2016-08-15 22:00] VITALS: BP 129/70
[2016-08-15 23:13] VITALS: BP 151/72
[2016-08-16] MEDS: IPRATROPIUM 0.5MG/ALBUTEROL 2.5MG INH SOL UD 3ML (DUONEB)(J7620) NEB SCH ×3 (00:14→14:00)
[2016-08-16] MEDS: LEVOTHYROXINE 0.1 MG TAB (100 MCG) PO SCH (05:38)
[2016-08-16] MEDS: METOPROLOL TART 25 MG TABLET PO SCH ×2 (05:38→10:41)
[2016-08-16 06:00] VITALS: BP 118/64
--- NOTE | 2016-08-16 10:03 | IPNPDOC ---
Subjective Date Seen The patient was seen on 08/16/16. Subjective Chief Complaint/HPI The patient is a 71-year-old female admitted with a reason for visit of Shortness Of Breath. Events since last encounter Pt states she is slowly improving. Still with some SOB. Denies CP, Abd pain. Constitutional: Denies: Chills, Fever Pulmonary: Reports: Dyspnea Cardiovascular: Denies: Chest Pain Gastrointestinal: Denies: Abdominal Pain Objective Physical Examination General Exam: Positive: Alert, No Acute Distress (sitting comfortably up in bed when I entered the room) ENT Exam: Positive: Atraumatic, Mucous membr. moist/pink Neck Exam: Positive: Supple, Negative: Lymphadenopathy Chest Exam: Positive: Rales (still present in both posterior lung medina but much improved from yesterday), Diminished (throughout) Heart Exam: Positive: Rate Normal, Normal S1, Normal S2 Abdomen Exam: Positive: Normal bowel sounds, Soft, Negative: Tenderness Extremity Exam: Negative: Cyanosis, Edema Psych Exam: Positive: Mood NL Assessment /Plan Problems (1) Hypoxia Status: Acute Response to Treatment: Improving Discussed With: Patient Problem Specific Plan: Consult Specialist, Monitor Clinically Problem Text: 08/16 - Pt still de-satts with ambulation. She has been on 3 L O2 at rest and 5 L with ambulation, however currently she is on 5 L at rest. Nursing will clarify. 08/15 - Pt still desaturates when she walks, but reports that she is recovering quicker than previously. The nurses are currently working with turning her oxygen up to 5 L when she moves around and back to her baseline of 3 L when she is at rest. This seems to be helping. She has not needed her CPAP to recover today. 08/14 - Pt still desaturates when she walks, but reports that she is recovering much quicker than previously. The nurses are currently working with turning her oxygen up to 5 L when she moves around and back to her baseline of 3 L when she is at rest. This seems to be helping. She has not needed her CPAP to recover today. 08/13 - she still desaturates when she walks, but reports that she recovers much quicker. The nurses are currently working with turning her oxygen up to 5 L when she moves around and back to her baseline of 3 L when she is at rest. This seems to be helping. She has not needed her CPAP to recover today. 08/12 - patient is symptomatically stable while laying in bed. She rapidly desaturates when she gets up and moves around at all. She is not yet able to be safely discharged home. We'll need to work more with her on conditioning both of her lungs and with physical therapy. 08/11 - Pt remains stable. D/w pt need for ambulation. Will consult PFS to arrange home care for pt, lives with her who is disabled. Not a lot of family support. She is hopeful she will be able to go home tomorrow 08/12. Her dgr doesn't have to work and will be able to help her get settle tomorrow. 08/10 - Condition remains same. D/w PCC this morning need for pt to be ambulated without cont pulse ox, d/t her Pulm fibrosis she will have desats, her ability to participate needs to be based more upon her symptoms than her pulse ox at the time of or during. 08/09 - Conditon remains same, Pulm is following, feels this is likely assoc with Amiodorone toxicity, especially given the half life of the medication and the ability for storage in adipose tissue (pt has an elevated BMI). Labs pending to r/o connective tissue d/o. 08/08 3-4 L/min via NC on non-oxygen dependent female. Sats maintained 90-94%, but desaturates at times to 70s with activity. We have been unable to wean her off of O2. CT chest shows worsening ground glass opacities in bases, which could be worsening pulmonary fibrosis. D/w Pulm - they are continuing methylprednisolone and ordered labwork to work up connective tissue disease. May need to consider an open lung biopsy, but I d/w patient that even a biopsy may not give us a clear diagnosis. She wants to see Pulm in [place] - I d/w her that if she stablizes on O2, we may need to discharge her home on O2 and arrange outpatient followup with Pulm at a tertiary center. (2) Pulmonary fibrosis Status: Chronic Response to Treatment: Progressing Discussed With: Borough Coordinator, Patient Problem Specific Plan: Consult Specialist Problem Text: 08/16 - Pt slowly improving. Bactrim was stopped yesterday due to renal failure. It was unclear as to why the pt was on the bactrim. Pt believed that Dr Whitehead wanted her on the Bactrim while on steroids/roasterman. I placed a call to Dr Whitehead for clarification. 08/15 - Slowly improving. 08/14 - Slowly improving. 08/13 -clearly the fibrosis is still present but she seems to be improving symptomatically. 08/12 - I asked Dr. Boyd to see this patient again to see if she has any additional insight into why she is so dyspneic and desaturate so quickly. 08/11 - Resp stable. see above. 08/10 - see above 08/09 - Mgmt per pulm. 08/08 Pulmonology following. Has been on several bouts of steroids, and in the past had improvement with steroids but has been persistently hypoxic on steroids here. CT shows worsening fibrosis. Was thought to be related to Amiodarone, however her government affairs fellow noted that she had pulmonary fibrosis on a CT scan prior to starting Amiodarone. Has been off of Amiodarone for approximately 8 weeks. (3) Atrial fibrillation with RVR Status: Chronic Response to Treatment: Stable Problem Text: 08/16 - Rate controlled on Lopressor. On Eliquis. 08/15 - Rate controlled on Lopressor. On Eliquis. 08/14 - Rate controlled on Lopressor. On Eliquis. 08/12 & - she remains rate controlled on Lopressor. We'll continue this regimen. 08/10 - Rate remains pretty well controlled, had documented rate of 110 last evening, otherwise mostly in the 80-90 range. 08/09 -rate improved, consistently less than 100 08/08 Metoprolol 25 mg po q 6 hrs. Parameters to HOLD were placed in orders. Monitor. EKG: Afib with RVR: 153 08/03: Remains in sinus 08/04/2016: rate improved, NSR. Continue Lopressor. (4) CKD (chronic kidney disease) stage 3, GFR 30-59 ml/min Status: Chronic Problem Text: 08/16 - Today's labs pending. Renal function had been trending up. Bactrim was D/C'ed yesterday. Spironolactone has been D/C'ed. 08/15- Renal functions have been trending up. Spironolactone was d/c'ed. D/W attending. 08/14 - Today's labs pending. 08/13 - there is a very slight improvement off the spironolactone but this is not substantial. We'll continue to monitor. 08/12 - her GFR is following a bit today. She looks dry. I discussed this with Dr. Boyd. We will hold her spironolactone, monitor. 08/10 - Appears baseline 1.5-1.8, Scr today 1.94. 08/09 - Lasix d/c'd yesterday, appears compensated. Scr continues to trend up, 1.83 today, 1.74 yest, enc po intake. 08/08 Cr a bit worse today, likely due to furosemide given yesterday and today - will d/c furosemide. (5) HTN (hypertension) Status: Chronic Response to Treatment: Stable Discussed With: Borough Coordinator Problem Text: 08/16 - BPs stable. On Lopressor. Off Spironolactone. 08/15 - BPs stable. On Lopressor. Off Spironolactone. 08/14 - BPs stable. On Lopressor. Off Spironolactone. 08/13 - Her blood pressures are stable, although not ideally controlled off her spironolactone. She reports that she had been on an ARB at one point in time. We 'll continue current regimen for now. Monitor. (6) Anxiety Status: Chronic Response to Treatment: Stable Problem Text: 08/16 - Stable 08/15 - Has PRN Xanax. 08/14 - Has PRN Xanax. 08/13 - she seems to be doing much better today now that she has been given a little bit of space to improve on her own. We'll continue to monitor. 08/12 - no significant change but she was able to tolerate the plan of going home and then having to stay without too much difficulty. 08/09 - Started on xanax yesterday - she feels that it helps with being irritable but she does not think it helps her anxiety (KES) (7) GERD (gastroesophageal reflux disease) Status: Chronic Response to Treatment: Stable (8) T2DM (type 2 diabetes mellitus) Status: Chronic Response to Treatment: Stable Problem Text: Hyperglycemia is likely due to increased dose of methylprednisolone. It would not surprise me if she has a bit of a glucose diuresis which may be part of why her kidney functions are increased. Continue to monitor for now. Once we get her kidneys functioning well again I would like to to tighten her blood glucose levels down a little farther. (9) DEVEN on CPAP Status: Chronic Problem Text: I am pleased that she is not needing this during the day for recovery from movement. I reinforced that she does need to use it whenever she is resting. She affirms this. (10) Hypothyroidism (acquired) Status: Chronic Problem Text: TSH 0.3 with elevated T3 upon admission. Dosing decreased to 100 mcg from 125 mcg. (11) Lactic acid acidosis Status: Resolved Response to Treatment: Stable, Improving Problem Text: repeat lactic acid normal. (12) Rectal bleeding Status: Resolved Problem Text: 08/10 - Hgb down slightly from 13.3 to 12.7, she had only one bloody BM, BM later in the day was without evidence of blood. [address] Kahn noted in [facility], no report in the system 08/09 - Patient had one bloody BM with bright red blood; no further BMs today; denies abdominal pain. Will monitor H/H - advised nurse to call if she has further bloody BMs and we will order a CBC. (KES) Plan/VTE VTE Prophylaxis Ordered?: Yes (Eliquis) VS, I&O, 24H, Fishbone Vital Signs/I&O Vital Signs Date Time Temp Pulse Resp B/P (MAP) Pulse Ox O2 Delivery O2 Flow Rate FiO2 08/16/16 06:00 97.8 80 18 118/64 (82) 97 NIPPV (BIPAP/CPAP) 4.0 I&O- Last 24 Hours up to 6 AM 08/16/16 06:00 Intake Total 600 ml Output Total 800 ml Balance -200 ml Laboratory Data 24H LABS Laboratory Tests 2 08/15/16 12:03: Bedside Glucose (Misc Panel) 233H 08/15/16 16:53: Bedside Glucose (Misc Panel) 359H 08/15/16 19:45: Bedside Glucose (Misc Panel) 445H 08/15/16 20:51: Bedside Glucose (Misc Panel) 392H Juan Saldana RPA-C Aug 16, 2016 10:03
[2016-08-16 10:31] LABS: MEAN CORPUSCULAR HEMOGLOBIN 27.3 pg (27.0-33.0); MEAN CORPUSCULAR HGB CONC 33.4 g/dl (32.0-36.5); MEAN CORPUSCULAR VOLUME 81.7 fl (80.0-96.0); PLATELET COUNT, AUTOMATED 238 k/mm3 (150-450); RED CELL DISTRIBUTION WIDTH 15.8 % (11.5-14.5); WHITE BLOOD COUNT 11.7 K/mm3 (4.0-10.0)
[2016-08-16] MEDS: APIXABAN 5 MG TAB (ELIQUIS) PO SCH (10:40)
[2016-08-16] MEDS: OMEPRAZOLE 20 MG CAP PO SCH (10:40)
[2016-08-16 10:41] VITALS: BP 118/64
[2016-08-16] MEDS: methylPREDNISolone 4 MG TAB PO SCH (10:41)
[2016-08-16] MEDS: HumaLOG INSULIN (NovoLOG) PER UNIT SC SCH ×2 (10:42→13:02)
[2016-08-16] MEDS: FLUTICASONE PROP 0.05% NASAL SPRAY 16 GM (FLONASE) SCH (10:44)
[2016-08-16] MEDS: LEVEMIR (INSULIN DETEMIR) 1 UNITS/0.01ML SC SCH (10:44)
[2016-08-16 10:46] LABS: ALBUMIN 2.5 GM/DL (3.2-5.2); BILIRUBIN,TOTAL 0.7 MG/DL (0.2-1.0); CALCIUM LEVEL 8.1 MG/DL (8.8-10.2); CREATININE FOR GFR 2.02 MG/DL (0.55-1.02); POTASSIUM SERUM 4.8 MEQ/L (3.5-5.1)
[2016-08-16 13:57] LABS: ANISOCYTOSIS 1+; BANDS 1 % (< 11); POIKILOCYTOSIS 1+
[2016-08-16 14:00] VITALS: BP 117/79
--- NOTE | 2016-08-21 01:32 | DS.PDOC ---
Discharge Summary General Date of Admission Aug 01, 2016 at 17:06 Date of Discharge 08/16/2016 Primary Care Physician: Guadalupe Pham Attending Physician: NOHELIA DUFFY DO Specialist/Consultants Involve: Yanick WHITEHEAD MD Specialist/Consultants Involve Dr. Hinds Discharge Summary PROCEDURES PERFORMED DURING STAY: [None]. ADMITTING DIAGNOSES: 1. Dyspnea 2. sepsis 3. CHF 4. atrial fibrillation 5. DEVEN 6. hyperlipidemia 7. hypothyroidism 8. CKD DISCHARGE DIAGNOSES: 1. pulmonary fibrosis 2. acute on chronic respiratory failure 3. CHF 4. atrial fibrillation 5. DEVEN 6. hyperlipidemia 7. hypothyroidism 8. CKD COMPLICATIONS/CHIEF COMPLAINT: Shortness Of Breath. HISTORY OF PRESENT ILLNESS: The patient is a 71-year-old female with past medical history significant for pulmonary fibrosis, congestive heart failure with an ejection fraction (EF) of 30-35%, non-Hodgkin's lymphoma, paroxysmal atrial fibrillation, hypothyroidism, diabetes, hypertension, morbid obesity, chronic kidney disease, stage III, obstructive sleep apnea on C-PAP, mitral regurgitation, presented to the emergency room complaining of shortness of breath that started shortly after she was discharged from the hospital on Sunday. The patient was recently admitted for similar symptoms of shortness of breath, hypoxia and lactic acidosis. She was discharged on Sunday, stated that she felt okay that day. However, the following day she started complaining of shortness of breath and a cough that has worsened. Today her shortness of breath became very severe. She was unable to ambulate from her chair to the bathroom and presented to the emergency room. Upon arrival, the patient was found to be hypoxic, saturating 81% on room air. She had a low grade temperature of 100.7 and she was tachycardiac 136 and respiratory rate of 26. The patient also had an initial lactic acid of 2.2 on admission. She received DuoNeb treatment and hospitalist was called for the admission. HOSPITAL COURSE: Patient improved slowly, with significant desaturations with exertion. She experienced some episodes of confusion, which were attributed to increased O2 delivery after desaturating with exertion. These improved with more careful attention to her nasal cannula O2 on the PCU, and her oxygen needs stabilized to requiring 3 L NC at rest and 5 L NC with exertion. 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 Dr. Whitehead also encouraged Bactrim for PCP prophylaxis, but the patient's renal function did not tolerate this, and Dr. Slade agreed to stopping it. Patient did experience one bloody BM on 08/09, without significant shift in her H&H. She was monitored, and did not have another bleeding event during her hospitalization. Patient did PT during her hospitalization, and was cleared for DC 08/16. At that time patient was eager to be discharged and more active in her home environment, and she was DCed home with close follow up with her primary care provider. DISCHARGE MEDICATIONS: Please see below. ALLERGIES: Please see below. PHYSICAL EXAMINATION ON DISCHARGE: VITAL SIGNS: Please see below. GENERAL: NAD, resting in bed, wearing nasal cannula O2, obese HEENT: MMM NECK: no JVD CARDIOVASCULAR EXAMINATION: regular rate and rhythm, no murmurs, rubs, or gallops RESPIRATORY EXAMINATION: bibasilar fibrotic crackles, no wheezes ABDOMINAL EXAMINATION: soft, nontender, nondistended EXTREMITIES: [no edema] SKIN: [clean, dry, intact] NEUROLOGICAL EXAMINATION: [no focal deficit] PSYCHIATRIC EXAMINATION: [normal mood and affect] LABORATORY DATA: Please see below. IMAGING: CXR 08/01 showed Suspect mild right basilar infiltrate superimposed on chronic bibasilar interstitial opacities. CT angio 08/[address] evidence of pulmonary embolism. Patchy ground-glass opacities in both lower lung zones are again seen. These have increased since 06/30/2016, more so on the right than on the left. They may be inflammatory in nature. CXR 08/06 showed Pulmonary edema versus pneumonia. Ct chest 08/06 showed Worsening air space disease. Pneumonia is suspected but needs to be correlated clinically. PROGNOSIS: guarded ACTIVITY: [As tolerated]. DIET: [low sodium]. DISCHARGE PLAN: [DC home, on long-term steroids] DISPOSITION: Home, Self-Care. DISCHARGE INSTRUCTIONS: 1. [O2 3 L NC at rest, 5 L with exertion]. 2. [Take all medications as prescribed. Avoid amiodarone in the future. Contact the office with any concerns, or worsening dyspnea.]. ITEMS TO FOLLOWUP ON ON OUTPATIENT: 1. [pulmonary fibrosis -- pulmonology to guide steroids]. 2. [episode of rectal bleeding]. DISCHARGE CONDITION: [Stable]. TIME SPENT ON DISCHARGE: Greater than [15] minutes. Vital Signs/I&Os Vital Signs Date Time Temp Pulse Resp B/P (MAP) Pulse Ox O2 Delivery O2 Flow Rate FiO2 08/16/16 14:00 98.2 97 20 117/79 (92) 90 Nasal Cannula 5.0 Discharge Medications Scheduled Apixaban Base (Eliquis) 5 Mg Tab, 5 MG PO BID, (Reported) Atorvastatin Calcium (Atorvastatin Calcium) 40 Mg Tab, 40 MG PO QHS, (Reported) Fluticasone Propionate (Fluticasone Propionate) 50 Mcg/Act Spr, 2 SPRAY NA DAILY Glipizide (Glipizide) 5 Mg Tab, 10 MG PO BID, (Reported) Insulin Glargine (Lantus) 1 Units/0.01 Ml Susp, 30 UNITS SC BID, (Reported) Insulin Human Lispro (Humalog) 1 Units/0.01 Ml Inj, SC ACHS, (Reported) Per Sliding Scale Levothyroxine Sodium (Synthroid) 100 Mcg Tab, 0.1 MG PO DAILY@06 Methylprednisolone (Methylprednisolone) 4 Mg Tab, 32 MG PO DAILY Metoprolol Tartrate (Metoprolol Tartrate) 25 Mg Tab, 25 MG PO Q6H Multivitamins *[facility] STOCKED* (Thera M Plus *[facility]OCK[facility]*) 1 Tab Tab, 1 TAB PO DAILY, (Reported) Omeprazole (Omeprazole) 40 Mg Cap, 40 MG PO DAILY, (Reported) Scheduled PRN Acetaminophen/Hydrocodone ([place] 5-325 mg) 1 Tab Tab, 1 TAB PO Q6HP PRN for PAIN , (Reported) Benzonatate (Benzonatate) 100 Mg Cap, 200 MG PO Q8H PRN for COUGH, (Reported) Ipratropium [place] (Ipratropium [place]) 0.5 Mg/2.5 Ml Soln, 0.5 MG INH QID PRN for SHORTNESS OF BREATH, (Reported) MIX WITH XOPENEX Levalbuterol Hydrochloride (Xopenex Concentrate) 1.25 Mg/0.5 Ml Neb, 1.25 MG INH Q8H PRN for SHORTNESS OF BREATH, (Reported) MIX WITH IPRATROPIUM Allergies Coded Allergies: Sitagliptin (Verified Allergy, Intermediate, RASH, 07/26/16) Latex (Verified Adverse Reaction, Intermediate, RISK, 07/26/16) Lisinopril (Unverified Adverse Reaction, Mild, Cough, 07/26/16) NOHELIA DUFFY DO August 21, 2016 01:32
== END 2016-08-16 16:42 | disposition home health service (06) | DRG 196 ==
LOC: M ED 10:26 → M ED INP 17:06 → M PCU 18:41 → M MSPAV 08-10 16:35
PROVIDERS: ADMIT Internal Medicine; ATTEND Family Medicine
DX: J84.10 Pulmonary fibrosis, unspecified (principal); J96.21 Acute and chronic respiratory failure with hypoxia; I13.0 Hypertensive heart and chronic kidney disease with heart failure and stage 1 through stage 4 chronic kidney disease, or unspecified chronic kidney disease; E87.2 Acidosis; K62.5 Hemorrhage of anus and rectum; C85.90 Non-Hodgkin lymphoma, unspecified, unspecified site; N18.3 Chronic kidney disease, stage 3 (moderate); I50.9 Heart failure, unspecified; I48.0 Paroxysmal atrial fibrillation; T46.2X5A Adverse effect of other antidysrhythmic drugs, initial encounter; E03.9 Hypothyroidism, unspecified; E78.5 Hyperlipidemia, unspecified; G47.33 Obstructive sleep apnea (adult) (pediatric); Z79.899 Other long term (current) drug therapy; Z79.4 Long term (current) use of insulin; Z88.8 Allergy status to other drugs, medicaments and biological substances; Z91.040 Latex allergy status; E66.01 Morbid (severe) obesity due to excess calories; I34.0 Nonrheumatic mitral (valve) insufficiency; F41.9 Anxiety disorder, unspecified; K21.9 Gastro-esophageal reflux disease without esophagitis; E11.649 Type 2 diabetes mellitus with hypoglycemia without coma

== ENCOUNTER → 2016-09-04 | Outpatient (CLI) | payer MEDICARE ==
[~2016-09-04] MED LIST changes: +FLUTISP; +LEVO100T5 PO; +METH4TAB6 PO; +METO25TAB PO
--- NOTE | 2016-09-04 18:13 | REP ---
Clinical: Shortness of breath. Technique: PA and lateral. Comparison: 08/06/2016. Findings: Mediastinum and cardiac silhouette are stable. Ackzlw-F-Uzqq with tip in the SVC/right atrium. Diffuse bilateral infiltrates are identified along with underlying chronic fibrosis and interstitial disease. No definite effusion. No pneumothorax. Skeletal structures stable. Impression: Diffuse bilateral multifocal infiltrates with chronic fibrosis and interstitial disease. Signed by Jc Morel MD 09/04/2016 06:04 P
== END ==
LOC: M WUC 17:41
PROVIDERS: ATTEND Internal Medicine Pulmonary Disease
DX: R91.8 Other nonspecific abnormal finding of lung field (principal)

== ENCOUNTER → 2016-09-15 | Outpatient (REF) | payer MEDICARE ==
[~2016-09-15] MED LIST changes: -ATOR40TA PO; +ATOR40TA75 PO; +CEFD1CAP8 PO; +FLON1SPR; +FURO40TA2 PO; +GENT80VL NEB; +GUAI1SOL2 PO; +GUAI5ELAC PO; +K-TA10TA2 PO; +LASI20TA PO; +LEVA1TAB2 PO; -LEVA500T PO; +LEVO100T54 PO; -LEVO125T3 PO; +LEVO125T4 PO; +LOPR1TAB7 PO; +METH4TAB28 PO; -METH4TAB6 PO; +METO100T5 PO; +METO1TAB87 PO; +METO25TA4 PO; -METO25TAB PO; +POTA10CA PO; +POTA20TA PO; -PRED10TA PO; +PRED10TA2 PO; +PROC5TA PO; +TOBR1NEB INH; +TOPA1TAB PO; -TOPA25TA10 PO; -TOPA50TA7 PO; +TOPA50TA8 PO
== END ==
LOC: M SFHCPLAZ 16:17
PROVIDERS: ATTEND Nurse Practitioner Family
DX: I10 Essential (primary) hypertension (principal); E78.2 Mixed hyperlipidemia; E03.9 Hypothyroidism, unspecified; E11.9 Type 2 diabetes mellitus without complications; Z53.8 Procedure and treatment not carried out for other reasons

== ENCOUNTER → 2016-09-16 | Outpatient (REF) | payer MEDICARE ==
[~2016-09-16] MED LIST changes: +ATOR40TA PO; -ATOR40TA75 PO; -CEFD1CAP8 PO; -FLON1SPR; -FURO40TA2 PO; -GENT80VL NEB; -GUAI1SOL2 PO; -GUAI5ELAC PO; -K-TA10TA2 PO; -LASI20TA PO; -LEVA1TAB2 PO; +LEVA500T PO; -LEVO100T54 PO; +LEVO125T3 PO; -LEVO125T4 PO; -LOPR1TAB7 PO; -METH4TAB28 PO; +METH4TAB6 PO; -METO100T5 PO; -METO1TAB87 PO; -METO25TA4 PO; +METO25TAB PO; -POTA10CA PO; -POTA20TA PO; +PRED10TA PO; -PRED10TA2 PO; -PROC5TA PO; -TOBR1NEB INH; -TOPA1TAB PO; +TOPA25TA10 PO; +TOPA50TA7 PO; -TOPA50TA8 PO
[2016-09-16 19:21] LABS: BASO % 0.3 % (0.0-1.0); EOS % 0.3 % (0.0-3.0); LARGE UNSTAINED CELL # 0.1 K/mm3 (0.0-0.4); LARGE UNSTAINED CELL % 0.6 % (0.0-4.0); LYMPH # 2.4 K/mm3 (1.5-4.5); LYMPH % 19.5 % (24.0-44.0); MEAN CORPUSCULAR HEMOGLOBIN 28.8 pg (27.0-33.0); MEAN CORPUSCULAR HGB CONC 32.4 g/dl (32.0-36.5); MONO # 0.4 K/mm3 (0.0-0.8); MONO % 3.5 % (0.0-5.0); NEUTROPHILS % 75.8 % (36.0-66.0); PLATELET COUNT, AUTOMATED 225 k/mm3 (150-450); RED CELL DISTRIBUTION WIDTH 18.7 % (11.5-14.5); WHITE BLOOD COUNT 11.8 K/mm3 (4.0-10.0)
[2016-09-16 19:59] LABS: ALBUMIN 2.7 GM/DL (3.2-5.2); ALBUMIN/GLOBULIN RATIO 1.08 (1.00-1.93); BILIRUBIN,TOTAL 0.5 MG/DL (0.2-1.0); CALCIUM LEVEL 8.2 MG/DL (8.8-10.2); CREATININE FOR GFR 1.13 MG/DL (0.55-1.02); FREE T4 1.13 NG/DL (0.76-1.46); GLOMERULAR FILTRATION RATE 50.8 (>45); POTASSIUM SERUM 4.6 MEQ/L (3.5-5.1); TOTAL PROTEIN 5.2 GM/DL (6.4-8.2)
== END ==
LOC: M LAB REF 14:00
PROVIDERS: ATTEND Nurse Practitioner Family
DX: I10 Essential (primary) hypertension (principal); E78.2 Mixed hyperlipidemia; E03.9 Hypothyroidism, unspecified; E11.9 Type 2 diabetes mellitus without complications

== ENCOUNTER → 2016-10-13 | Outpatient (REF) | payer MEDICARE | LOC: M LAB REF 16:48 | PROVIDERS: ATTEND Internal Medicine Pulmonary Disease | DX: J84.10 Pulmonary fibrosis, unspecified (principal) ==

== ENCOUNTER → 2016-10-16 | Outpatient (CLI) | payer MEDICARE ==
[~2016-10-16] MED LIST changes: -ATOR40TA PO; +ATOR40TA75 PO; +CEFD1CAP8 PO; +FLON1SPR; +FURO40TA2 PO; +GENT80VL NEB; +GUAI1SOL2 PO; +GUAI5ELAC PO; +K-TA10TA2 PO; +LASI20TA PO; +LEVA1TAB2 PO; -LEVA500T PO; +LEVO100T54 PO; -LEVO125T3 PO; +LEVO125T4 PO; +LOPR1TAB7 PO; +METH4TAB28 PO; -METH4TAB6 PO; +METO100T5 PO; +METO1TAB87 PO; +METO25TA4 PO; -METO25TAB PO; +POTA10CA PO; +POTA20TA PO; -PRED10TA PO; +PRED10TA2 PO; +PROC5TA PO; +TOBR1NEB INH; +TOPA1TAB PO; -TOPA25TA10 PO; -TOPA50TA7 PO; +TOPA50TA8 PO
--- NOTE | 2016-10-16 16:43 | REP ---
Chest x-ray: Two views: History: Shortness of breath and cough. Comparison chest x-ray 09/04/2016. Findings: There is a left internal jugular vein Hxyfqb-H-Qfkt with its tip in the superior vena cava. The lungs are well inflated and clear. Heart is mildly enlarged. There are clips in the right upper quadrant of the abdomen. Vascular interstitial markings remain prominent although they are improved from the 09/04/2016. No pleural effusion is seen. Impression: Cardiomegaly. Xjdmaw-L-Pqqn catheter. Prominent vascular interstitial markings, somewhat improved from 09/04/2016. No acute infiltrate. Signed by Carroll Huizar MD 10/16/2016 04:47 P
[2016-10-16 19:50] LABS: ADD MANUAL DIFFER YES; MEAN CORPUSCULAR HEMOGLOBIN 29.4 pg (27.0-33.0); MEAN CORPUSCULAR HGB CONC 31.6 g/dl (32.0-36.5); MEAN CORPUSCULAR VOLUME 92.9 fl (80.0-96.0); PLATELET COUNT, AUTOMATED 237 k/mm3 (150-450); RED CELL DISTRIBUTION WIDTH 16.5 % (11.5-14.5)
[2016-10-16 20:19] LABS: ALBUMIN 2.6 GM/DL (3.2-5.2); ALBUMIN/GLOBULIN RATIO 0.87 (1.00-1.93); CALCIUM LEVEL 8.7 MG/DL (8.8-10.2); CREATININE FOR GFR 1.45 MG/DL (0.55-1.02); GLOMERULAR FILTRATION RATE 38.1 (>45); POTASSIUM SERUM 4.6 MEQ/L (3.5-5.1); TOTAL PROTEIN 5.6 GM/DL (6.4-8.2)
[2016-10-16 22:52] LABS: BANDS 2 % (< 11); PLATELET CLUMPS SMALL AMT
== END ==
LOC: M WUC 15:48
PROVIDERS: ATTEND Nurse Practitioner Family
DX: R06.02 Shortness of breath (principal); A49.8 Other bacterial infections of unspecified site; I51.7 Cardiomegaly; Z95.9 Presence of cardiac and vascular implant and graft, unspecified
CPT/HCPCS: 36415; 71020; 80053; 85025; G0463

== ENCOUNTER → 2016-11-07 | Outpatient (REF) | payer MEDICARE ==
[2016-11-07 16:32] LABS: CALCIUM LEVEL 8.5 MG/DL (8.8-10.2); CREATININE FOR GFR 1.3 MG/DL (0.55-1.02); GLOMERULAR FILTRATION RATE 43.2 (>45); MAGNESIUM LEVEL 2.1 MG/DL (1.8-2.4); POTASSIUM SERUM 4.2 MEQ/L (3.5-5.1)
== END ==
LOC: M SFHCPLAZ 14:41
PROVIDERS: ATTEND Nurse Practitioner Family
DX: I50.33 Acute on chronic diastolic (congestive) heart failure (principal)
CPT/HCPCS: 80048; 83735; 83880; G0463

== ENCOUNTER → 2016-11-13 | Outpatient (REF) | payer MEDICARE ==
[2016-11-13 15:20] LABS: CALCIUM LEVEL 9.1 MG/DL (8.8-10.2); CREATININE FOR GFR 1.25 MG/DL (0.55-1.02); GLOMERULAR FILTRATION RATE 45.2 (>45); POTASSIUM SERUM 3.1 MEQ/L (3.5-5.1)
== END ==
LOC: M SFHCPLAZ 11:57
PROVIDERS: ATTEND Nurse Practitioner Family
DX: I50.33 Acute on chronic diastolic (congestive) heart failure (principal)
CPT/HCPCS: 80048; G0463

== ENCOUNTER 2016-11-14 20:30 | Emergency (ER) | payer MEDICARE ==
[~2016-11-14] VITALS: Ht 154.9 cm; Wt 92.3 kg
[~2016-11-14 20:30] MED LIST changes: -CEFD1CAP8 PO; -FLON1SPR; -FURO40TA2 PO; -GENT80VL NEB; -GUAI1SOL2 PO; -GUAI5ELAC PO; -K-TA10TA2 PO; -LASI20TA PO; -LEVO100T54 PO; -LOPR1TAB7 PO; -METO100T5 PO; -METO1TAB87 PO; -POTA10CA PO; -POTA20TA PO; -PROC5TA PO; -TOBR1NEB INH
[2016-11-14] MEDS ORDERED: K-TA10TA2 PO (20:50)
[2016-11-14] MEDS ORDERED: LASI20TA PO (20:50)
[2016-11-14] MEDS ORDERED: dexameTHASONE 20 MG/5 ML VIAL (J1100) IV ONE (21:00)
[2016-11-14] MEDS: IPRATROPIUM 0.5MG/ALBUTEROL 2.5MG INH SOL UD 3ML (DUONEB)(J7620) NEB SCH ×3 (21:06→21:34)
[2016-11-14 21:15] LABS: CALCIUM LEVEL 8.7 MG/DL (8.8-10.2); CREATININE FOR GFR 1.58 MG/DL (0.55-1.02); GLOMERULAR FILTRATION RATE 34.5 (>45); POTASSIUM SERUM 3.2 MEQ/L (3.5-5.1)
[2016-11-14 21:26] LABS: ABG BASE EXCESS 4.2 (-2.0-2.0); ABG HCO3 27.8 MEQ/L (22.0-26.0); ABG PARTIAL PRESSURE CO2 38.2 mmHg (35.0-45.0); ABG PARTIAL PRESSURE O2 87.6 mmHg (75.0-100.0); ABG STANDARD HCO3 28.2 MEQ/L (22.0-26.0)
[2016-11-14 21:29] LABS: ADD MANUAL DIFFER YES; DIFF SLIDE NUMBER 334; MEAN CORPUSCULAR HEMOGLOBIN 29.1 pg (27.0-33.0); MEAN CORPUSCULAR HGB CONC 32.7 g/dl (32.0-36.5); PLATELET COUNT, AUTOMATED 213 k/mm3 (150-450); RED CELL DISTRIBUTION WIDTH 15.8 % (11.5-14.5); WHITE BLOOD COUNT 18.3 K/mm3 (4.0-10.0)
[2016-11-14 21:49] VITALS: BP 112/61
[2016-11-14 22:09] LABS: BANDS 1 % (< 11)
[2016-11-14] MEDS ORDERED: POTASSIUM CHLORIDE 10 MEQ SR TABLET PO ONE (22:15)
[2016-11-14] MEDS ORDERED: PRED20TA PO (22:29)
--- NOTE | 2016-11-15 07:27 | REP ---
PA and lateral chest: Comparison 10/16/2016. The interstitial vascular markings are mildly accentuated, decreased from the prior study. There are no focal infiltrates. No pleural effusions. Cardiac size is enlarged, unchanged. The kailyn, mediastinum, and bony thorax are unremarkable. The left IJ the central venous Jhgtsi-F-Dboc catheter is unchanged with the tip in the superior vena cava. Impression: Interstitial coarsening has improved. Cardiomegaly is unchanged. Signed by Marty Ventura MD 11/15/2016 07:18 A
== END 2016-11-14 23:09 | disposition home or self-care (01) ==
LOC: M ED 20:30 → EDBD 20:30 → M ED 23:09
DX: J84.10 Pulmonary fibrosis, unspecified (principal); I48.91 Unspecified atrial fibrillation; E11.9 Type 2 diabetes mellitus without complications; I10 Essential (primary) hypertension; I25.10 Atherosclerotic heart disease of native coronary artery without angina pectoris; E78.5 Hyperlipidemia, unspecified; J44.9 Chronic obstructive pulmonary disease, unspecified; K21.9 Gastro-esophageal reflux disease without esophagitis; N28.9 Disorder of kidney and ureter, unspecified; I51.7 Cardiomegaly; Z79.4 Long term (current) use of insulin; Z79.899 Other long term (current) drug therapy; Z91.040 Latex allergy status; Z88.8 Allergy status to other drugs, medicaments and biological substances
CPT/HCPCS: 36415; 36600; 71020; 80048; 82803; 85025; 87040; 94640; 96374; 99284; J1100

== ENCOUNTER → 2016-11-15 | Outpatient (CLI) | payer MEDICARE ==
[~2016-11-15] MED LIST changes: +CEFD1CAP8 PO; +FLON1SPR; +FURO40TA2 PO; +GENT80VL NEB; +GUAI1SOL2 PO; +GUAI5ELAC PO; +K-TA10TA2 PO; +LASI20TA PO; +LEVO100T54 PO; +LOPR1TAB7 PO; +METO100T5 PO; +METO1TAB87 PO; +POTA10CA PO; +POTA20TA PO; +PROC5TA PO; +TOBR1NEB INH
[2016-11-15 17:34] LABS: CALCIUM LEVEL 8.5 MG/DL (8.8-10.2); CREATININE FOR GFR 2.02 MG/DL (0.55-1.02); POTASSIUM SERUM 4.1 MEQ/L (3.5-5.1)
== END ==
LOC: M WUC 14:19
PROVIDERS: ATTEND Nurse Practitioner Family
DX: E87.6 Hypokalemia (principal)

== ENCOUNTER 2016-11-17 11:41 | Emergency (ER) | payer MEDICARE ==
[~2016-11-17] VITALS: Ht 154.9 cm; Wt 91.4 kg
[~2016-11-17 11:41] MED LIST changes: -CEFD1CAP8 PO; -FLON1SPR; -FURO40TA2 PO; -GENT80VL NEB; -GUAI1SOL2 PO; -GUAI5ELAC PO; -LEVO100T54 PO; -LOPR1TAB7 PO; -METO100T5 PO; -METO1TAB87 PO; -POTA10CA PO; -POTA20TA PO; -PROC5TA PO; -TOBR1NEB INH
[2016-11-17] MEDS ORDERED: methylPREDNISolone INJ 125 MG/2 ML VIAL (J2930) IV ONE (12:15)
[2016-11-17] MEDS: IPRATROPIUM 0.5MG/ALBUTEROL 2.5MG INH SOL UD 3ML (DUONEB)(J7620) NEB SCH (12:46)
--- NOTE | 2016-11-17 12:52 | REP ---
Chest PA and lateral views, emergency room request: Comparison studies are the PA and lateral chest studies dated 11/14/2016, 10/16/2016 and 08/06/2016. There is also a comparison chest CT dated 08/06/2016. Of 08/06/2016. There were diffuse bilateral interstitial and airspace opacities on both the CT and plain film study. These had improved on 10/16/2016. And showed continued improvement on 11/14/2016. On the study today there are accentuated interstitial markings bilaterally, not significantly changed 11/14/2016. A left IJ Muusso-N-Ljqk catheter is again identified, unchanged. Cardiac size appears enlarged, unchanged. There are no pleural effusions. No focal infiltrate or mass. Impression: Accentuated interstitial markings as described in detail in the body of the report. Glsdls-R-Tovd catheter, unchanged. Signed by Marty Ventura MD 11/17/2016 12:44 P
[2016-11-17 13:02] LABS: ABG BASE EXCESS 0.3 (-2.0-2.0); ABG HCO3 22.2 MEQ/L (22.0-26.0); ABG PARTIAL PRESSURE CO2 28.2 mmHg (35.0-45.0); ABG PARTIAL PRESSURE O2 129.2 mmHg (75.0-100.0); ABG STANDARD HCO3 24.8 MEQ/L (22.0-26.0); ABG TOTAL CO2 23.1 MEQ/L (23.0-31.0); ABG pH (ARTERIAL) 7.514 UNITS (7.350-7.450)
[2016-11-17 13:17] LABS: ADD MANUAL DIFFER YES; MEAN CORPUSCULAR HEMOGLOBIN 29.2 pg (27.0-33.0); MEAN CORPUSCULAR HGB CONC 33.6 g/dl (32.0-36.5); MEAN CORPUSCULAR VOLUME 87.1 fl (80.0-96.0); PLATELET COUNT, AUTOMATED 214 k/mm3 (150-450); RED CELL DISTRIBUTION WIDTH 15.4 % (11.5-14.5); WHITE BLOOD COUNT 11.5 K/mm3 (4.0-10.0)
[2016-11-17 13:23] LABS: ALBUMIN 2.5 GM/DL (3.2-5.2); ALBUMIN/GLOBULIN RATIO 0.68 (1.00-1.93); BILIRUBIN,DIRECT 0.2 MG/DL (0.0-0.2); BILIRUBIN,TOTAL 0.5 MG/DL (0.2-1.0); CALCIUM LEVEL 8.8 MG/DL (8.8-10.2); CREATININE FOR GFR 1.4 MG/DL (0.55-1.02); GLOMERULAR FILTRATION RATE 39.7 (>45); POTASSIUM SERUM 5.1 MEQ/L (3.5-5.1); TOTAL PROTEIN 6.2 GM/DL (6.4-8.2)
[2016-11-17 13:49] LABS: BANDS 1 % (< 11)
[2016-11-17 13:50] LABS: ANISOCYTOSIS 2+
[2016-11-17] MEDS ORDERED: GUAI1SOL2 PO (15:01)
[2016-11-17 15:25] VITALS: BP 124/75
--- NOTE | 2016-11-19 02:15 | ECGEPIP ---
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 Order Number: [id number] Reading MD: Robert Laguna Measurements Intervals [place] Rate: 114 P: 244 [place]: 155 QRS: -18 QRSD: 101 T: 48 QT: 320 QTc: 441 Interpretive Statements ATRIAL FIBRILLATION WITH RVR VOLTAGE CRITERIA FOR LVH POSSIBLE ANTERIOR MYOCARDIAL INFARCTION, OF INDETERMINATE AGE SIMILAR TO 08/02/16 Electronically Signed On 11-19-2016 2:15:49 EDT by Robert Laguna
== END 2016-11-17 15:28 | disposition home or self-care (01) ==
LOC: M ED 11:41
DX: J84.10 Pulmonary fibrosis, unspecified (principal); R05 Cough; Z79.899 Other long term (current) drug therapy; Z79.4 Long term (current) use of insulin; Z91.040 Latex allergy status; Z88.8 Allergy status to other drugs, medicaments and biological substances

== ENCOUNTER → 2016-11-19 | Outpatient (REF) | payer MEDICARE ==
[~2016-11-19] MED LIST changes: +CEFD1CAP8 PO; +FLON1SPR; +FURO40TA2 PO; +GENT80VL NEB; +GUAI1SOL2 PO; +GUAI5ELAC PO; +LEVO100T54 PO; +LOPR1TAB7 PO; +METO100T5 PO; +METO1TAB87 PO; +POTA10CA PO; +POTA20TA PO; +PROC5TA PO; +TOBR1NEB INH
== END ==
LOC: M LAB REF 16:41
PROVIDERS: ATTEND Physician Assistant Medical
DX: R05 Cough (principal)

== ENCOUNTER 2016-11-22 10:53 | Inpatient (IN) | payer MEDICARE ==
[~2016-11-22] VITALS: Ht 165.1 cm; Wt 95.4 kg
[2016-11-22] MEDS: DOCUSATE SODIUM 100 MG CAP PO SCH ×3 (09:00→21:00)
[2016-11-22] MEDS: SENOKOT S TAB PO SCH ×3 (09:00→21:00)
[~2016-11-22 10:53] MED LIST changes: -CEFD1CAP8 PO; +ENOXAPARIN 40 MG/0.4 ML SYRINGE (J1650) SC SCH; -FLON1SPR; -FURO40TA2 PO; -GENT80VL NEB; -GUAI5ELAC PO; -LEVO100T54 PO; -LOPR1TAB7 PO; -METO100T5 PO; -METO1TAB87 PO; -POTA10CA PO; -POTA20TA PO; -PROC5TA PO; -TOBR1NEB INH
[2016-11-22] MEDS ORDERED: METOCLOPRAMIDE INJ 10MG/2ML VIAL (J2765) IV PRN (11:00)
[2016-11-22] MEDS ORDERED: ONDANSETRON 4 MG TAB (S0181) PO PRN (11:00)
[2016-11-22] MEDS ORDERED: BISACODYL 10 MG SUPP PR PRN (11:00)
[2016-11-22] MEDS ORDERED: ACETAMINOPHEN TAB 650MG DOSE (2X325MG) PO PRN (11:00)
[2016-11-22] MEDS ORDERED: GLUCAGON FOR INJ 1 MG VIAL (J1610) SC PRN ×2 (11:15→18:00)
[2016-11-22] MEDS ORDERED: LEVALBUTEROL 1.25 MG/0.5 ML CONCENTRATE NEB INH PRN (11:15)
[2016-11-22] MEDS ORDERED: DEXTROSE 50% 50 ML SYRINGE IV PRN ×2 (11:15→18:00)
[2016-11-22] MEDS ORDERED: GLUCOSE 4 GM CHEW TABLET PO PRN ×2 (11:15→18:00)
[2016-11-22] MEDS ORDERED: methylPREDNISolone INJ 125 MG/2 ML VIAL (J2930) IV ONE (12:00)
[2016-11-22 12:15] VITALS: BP 132/81
[2016-11-22 13:35] LABS: ABG BASE EXCESS 1.5 (-2.0-2.0); ABG HCO3 23.7 MEQ/L (22.0-26.0); ABG PARTIAL PRESSURE CO2 30.6 mmHg (35.0-45.0); ABG PARTIAL PRESSURE O2 76.4 mmHg (75.0-100.0); ABG STANDARD HCO3 25.7 MEQ/L (22.0-26.0); ABG TOTAL CO2 24.6 MEQ/L (23.0-31.0); ABG pH (ARTERIAL) 7.507 UNITS (7.350-7.450)
[2016-11-22] MEDS: cefTRIAXone SOD 1 GM in D5W MINI-BAG PLUS 50 ML IV SCH (14:01)
[2016-11-22] MEDS: IPRATROPIUM 0.5MG/ALBUTEROL 2.5MG INH SOL UD 3ML (DUONEB)(J7620) NEB SCH ×2 (14:41→19:45)
[2016-11-22] MEDS ORDERED: FLON1SPR (15:07)
[2016-11-22] MEDS ORDERED: METO1TAB87 PO (15:07)
[2016-11-22] MEDS ORDERED: GUAI5ELAC PO (15:07)
[2016-11-22] MEDS ORDERED: VITMTA PO (15:07)
[2016-11-22] MEDS ORDERED: IPRA2IN INH (15:07)
[2016-11-22] MEDS ORDERED: LEVO100T54 PO (15:07)
[2016-11-22] MEDS ORDERED: METH4TAB28 PO (15:11)
[2016-11-22 16:00] VITALS: BP 142/58
--- NOTE | 2016-11-22 17:59 | REP ---
REASON: History of pulmonary fibrosis. All prior chest CTs were reviewed, the latest of which is dated 08/06/2016 which showed air spaces disease worsening from prior exams. This limited noncontrast enhanced examination shows no change in the mediastinum of pulmonary kailyn. No pleural or pericardial effusions have developed. There is no change in the imaged upper abdomen or imaged osseous structures. Evaluation of the lung medina shows improved patchy air space disease with essentially unchanged cylindrical bronchiectasis with basilar predominance. No new abnormal opacities have developed. The chronic fibrotic changes could obscure significant nodule or spiculated parenchymal lesion. IMPRESSION: Improved lung medina with chronic changes and limitations as described above. Signed by Hiren Dwyer DO 11/23/2016 10:42 A
[2016-11-22] MEDS: HumaLOG INSULIN (NovoLOG) PER UNIT SC SCH ×2 (18:27→20:55)
[2016-11-22 20:00] VITALS: BP 149/68
[2016-11-22] MEDS: methylPREDNISolone INJ 125 MG/2 ML VIAL (J2930) IV SCH (20:56)
[2016-11-22 22:45] VITALS: BP 136/63
[2016-11-22] MEDS: METOPROLOL 5 MG/5 ML VIAL IV SCH ×3 (23:12→23:25)
[2016-11-22 23:20] VITALS: BP 127/61
[2016-11-22] MEDS: METOPROLOL TART 25 MG TABLET PO SCH (23:23)
[2016-11-23 01:07] VITALS: BP 125/65
[2016-11-23] MEDS: METOPROLOL 5 MG/5 ML VIAL IV SCH ×3 (01:38→01:55)
[2016-11-23] MEDS: IPRATROPIUM 0.5MG/ALBUTEROL 2.5MG INH SOL UD 3ML (DUONEB)(J7620) NEB SCH ×4 (02:00→19:43)
[2016-11-23] MEDS: cefTRIAXone SOD 1 GM in D5W MINI-BAG PLUS 50 ML IV SCH (02:06)
[2016-11-23 04:00] VITALS: BP 136/75
[2016-11-23] MEDS: methylPREDNISolone INJ 125 MG/2 ML VIAL (J2930) IV SCH ×3 (04:39→21:12)
[2016-11-23 05:52] LABS: ADD MANUAL DIFFER YES; MEAN CORPUSCULAR HEMOGLOBIN 29.8 pg (27.0-33.0); MEAN CORPUSCULAR HGB CONC 34.2 g/dl (32.0-36.5); PLATELET COUNT, AUTOMATED 223 k/mm3 (150-450); WHITE BLOOD COUNT 7.5 K/mm3 (4.0-10.0)
[2016-11-23] MEDS: LEVOTHYROXINE 100MCG TABLET (0.1MG) PO SCH (06:00)
[2016-11-23 06:45] LABS: ALBUMIN/GLOBULIN RATIO 0.59 (1.00-1.93); BILIRUBIN,TOTAL 0.3 MG/DL (0.2-1.0); CALCIUM LEVEL 8.6 MG/DL (8.8-10.2); CREATININE FOR GFR 1.29 MG/DL (0.55-1.02); GLOMERULAR FILTRATION RATE 43.6 (>45); POTASSIUM SERUM 4.2 MEQ/L (3.5-5.1); TOTAL PROTEIN 5.4 GM/DL (6.4-8.2)
[2016-11-23 07:26] LABS: BANDS 1 % (< 11)
[2016-11-23 07:27] LABS: ANISOCYTOSIS 1+
[2016-11-23] MEDS: HumaLOG INSULIN (NovoLOG) PER UNIT SC SCH ×4 (07:30→21:14)
[2016-11-23 08:12] VITALS: BP 123/96
[2016-11-23] MEDS ORDERED: SODIUM CHLORIDE NASAL 0.65% SPRAY BTL (OCEAN) PRN (09:00)
[2016-11-23] MEDS: SENOKOT S TAB PO SCH ×2 (09:00→21:00)
[2016-11-23] MEDS ORDERED: DEXTROMETHORPHAN 60MG/10ML SUSP 90ML BTL(DELSYM) PO PRN (09:00)
[2016-11-23] MEDS: DOCUSATE SODIUM 100 MG CAP PO SCH ×2 (09:00→21:00)
[2016-11-23] MEDS ORDERED: LEVEMIR (INSULIN DETEMIR) 1 UNITS/0.01ML SC SCH (09:00)
[2016-11-23] MEDS: guaiFENesin ER 600 MG TAB PO SCH ×2 (09:23→21:12)
[2016-11-23] MEDS: PANTOPRAZOLE 40MG TAB (PROTONIX) PO SCH (09:23)
[2016-11-23] MEDS: METOPROLOL TART 25 MG TABLET PO SCH ×2 (09:24→21:12)
--- NOTE | 2016-11-23 09:25 | IPNPDOC ---
Subjective Date Seen The patient was seen on 11/23/16. Subjective Chief Complaint/HPI The patient is a 71-year-old female admitted with a reason for visit of Hypoxia. Events since last encounter Pt c/o fatigue, weakness, assoc with persistent, cough, SOB. She had two episodes of A fib with RVR. She was given IV Lopressor, rate converted by to SR , then recurred about 2 h later with a rate in the 150/160s. She was given two dose of IV Lopressor at that time resulting in her converting back to SR with a rate of less than 100. She has a h/o RVR in the past, she is on Eliquis and Metoprolol as an outpt. General: Reports: Fatigue, Malaise Constitutional: Reports: Malaise, Denies: Chills, Fever Pulmonary: Reports: Dyspnea, Cough Cardiovascular: Denies: Chest Pain, Palpitations Gastrointestinal: Denies: Nausea, Vomiting (none since admission.), Abdominal Pain, Diarrhea Neurological: Reports: Weakness Psych: Reports: Mood Normal Objective Physical Examination General Exam: Positive: Alert, No Acute Distress ENT Exam: Positive: Mucous membr. moist/pink Chest Exam: Positive: Diminished (Crackles at both bases, L > R), Other Heart Exam: Positive: Rate Normal, Normal S1, Normal S2, Negative: Murmurs Abdomen Exam: Positive: Normal bowel sounds, Soft, Negative: Tenderness Extremity Exam: Negative: Edema Psych Exam: Positive: Mental status NL, Mood NL Assessment /Plan Problems (1) Bronchiectasis Status: Acute Problem Text: D1 ceftaz/tobra 11/22 CT chest: Evaluation of the lung medina shows improved patchy air space disease with essentially unchanged cylindrical bronchiectasis with basilar predominance 11/19 SCX: moderate S. marcescnes/P. aeruginosa-both sens to ceftaz/tobra (2) Acute and chronic respiratory failure Status: Acute Response to Treatment: Stable Discussed With: Nurse, Art Coordinator, Patient Problem Specific Plan: Monitor Clinically, Repeat Labs Problem Text: Pt admitted on Duonebs, Solumedrol 80 mg IV q8h, Dr Cannon has been consulted and plans to see the pt today. Her resp status is stable. Stressed to nurses and pt goal of O2 Sat is close to 88-90%. (3) Atrial fibrillation with RVR Status: Chronic Response to Treatment: Stable Discussed With: Nurse, Patient Problem Specific Plan: Monitor Clinically, Repeat Labs Problem Text: 11/22/16 two episodes of A fib with RVR last night resulting in 3 doses total of IV Lopressor. She is on Eliquis BID and metoprolol tartrate 25 BID, will continue this for now. Cont to monitor. LIkely her compromised resp status and the use of B2 agonist contributed to her conversion. She follows with Dr Kulkarni as an outpt. (4) DEVEN on CPAP Status: Chronic Response to Treatment: Stable Problem Specific Plan: Monitor Clinically (5) Pulmonary fibrosis Status: Chronic Response to Treatment: Stable Problem Specific Plan: Monitor Clinically Problem Text: See above. Follows with Dr Slade as outpt. Likely d/t Amiodorone toxicity. (6) HTN (hypertension) Status: Chronic Problem Specific Plan: Monitor Clinically (7) CKD (chronic kidney disease) stage 3, GFR 30-59 ml/min Status: Chronic Response to Treatment: Stable Problem Text: at baseline cr 1.2-1.3 Plan/VTE VTE Prophylaxis Ordered?: Yes VS, I&O, 24H, Fishbone Vital Signs/I&O Vital Signs Date Time Temp Pulse Resp B/P (MAP) Pulse Ox O2 Delivery O2 Flow Rate FiO2 11/23/16 08:12 96.9 86 18 123/96 (105) 92 Room Air I&O- Last 24 Hours up to 6 AM 11/23/16 05:59 Intake Total 530 ml Output Total 601 ml Balance -71 ml Laboratory Data 24H LABS Laboratory Tests 2 11/22/16 13:20: Thyroid Stimulating Hormone (TSH) 0.421 11/22/16 13:23: Blood Gas Bicarbonate Standard 25.7, Arterial Blood pH 7.507H, Arterial Blood Partial Pressure CO2 30.6L, Arterial Blood Partial Pressure O2 76.4, Arterial Blood Total CO2 24.6, Arterial Blood HCO3 23.7, Arterial Blood Base Excess 1.5, Arterial Blood Oxygen Saturation 95.8, Arterial Blood Gas Puncture Site LT BRACHIAL 11/22/16 17:41: Bedside Glucose (Misc Panel) 501*H 11/22/16 17:55: Bedside Glucose Confirm (Misc) 599*H 11/23/16 05:24: Neutrophils 85H, Band Neutrophils 1, Lymphocytes (Manual) 11L, Monocytes (Manual ) 3, Platelet Estimate NORMAL, Anisocytosis 1+, Anion Gap 8, Glomerular Filtration Rate 43.6L, Blood Urea Nitrogen 22H, Creatinine 1.29H, Sodium Level 138, Potassium Level 4.2, Chloride Level 101, Carbon Dioxide Level 29, Calcium Level 8.6L, Aspartate Amino Transf (AST/SGOT) 13L, Alanine Aminotransferase (ALT /SGPT) 29, Alkaline Phosphatase 78, Total Bilirubin 0.3, Total Protein 5.4L, Albumin 2.0L, Magnesium Level 2.0, Albumin/Globulin Ratio 0.59L CBC/BMP Laboratory Tests 11/23/16 05:24 Red Blood Count 3.89 L, Mean Corpuscular Volume 87.0, Mean Corpuscular Hemoglobin 29.8, Mean Corpuscular Hemoglobin Concent 34.2, Red Cell Distribution Width 15.0 H, Calcium Level 8.6 L, Aspartate Amino Transf (AST/SGOT ) 13 L, Alanine Aminotransferase (ALT/SGPT) 29, Alkaline Phosphatase 78, Total Bilirubin 0.3, Total Protein 5.4 L, Albumin 2.0 L Microbiology Microbiology 11/22/16 Blood Culture, Received Pending 11/22/16 Blood Culture, Received Pending JUDE LOJA PA-C Nov 23, 2016 09:25 Kamron Montoya M.D. Nov 23, 2016 14:22
[2016-11-23] MEDS: APIXABAN 5 MG TAB (ELIQUIS) PO SCH ×2 (10:18→21:12)
[2016-11-23] MEDS: FLUTICASONE PROP 0.05% NASAL SPRAY 16 GM (FLONASE) SCH (10:18)
[2016-11-23] MEDS: cefTAZidime 1 GM in D5W MINI-BAG PLUS 100 ML IV SCH ×2 (10:38→17:34)
[2016-11-23 12:00] VITALS: BP 130/42
[2016-11-23] MEDS ORDERED: LEVEMIR (INSULIN DETEMIR) 1 UNITS/0.01ML SC ONE (12:00)
[2016-11-23] MEDS ORDERED: HumaLOG INSULIN (NovoLOG) PER UNIT SC ONE (12:00)
[2016-11-23 16:00] VITALS: BP 132/40
[2016-11-23] MEDS: TOBRAMYCIN SULF 100 MG in D5W 50 ML IV SCH (16:47)
--- NOTE | 2016-11-23 18:05 | ECGEPIP ---
Stationary ECG Study [facility] Test Date: 2016-11-22 Pat Name: LISA DIAMOND Department: Room: [place] [address] Gender: F Bilingual Sales Assistant: [place] : 1945 Requested By: Guadalupe AVINA Order Number: [id number] Reading MD: Man Watson Measurements Intervals [place] Rate: 101 P: 53 DC: 165 QRS: -20 QRSD: 86 T: 61 QT: 329 QTc: 427 Interpretive Statements Sinus tachycardia. LA conduction disturbance. Leftward axis Left ventricular hypertrophy by Dell criteria. Slow precordial R-wave progression. No significant change from 11/17/16 Electronically Signed On 11-23-2016 18:05:20 EDT by Man Watson
[2016-11-23 20:00] VITALS: BP 169/95
[2016-11-23] MEDS ORDERED: METOPROLOL TART 25 MG TABLET PO SCH (21:00)
[2016-11-24] VITALS (9 sets, daily range): BP systolic 131–166; BP diastolic 42–93
[2016-11-24] MEDS: cefTAZidime 1 GM in D5W MINI-BAG PLUS 100 ML IV SCH ×3 (00:57→17:33)
[2016-11-24] MEDS: IPRATROPIUM 0.5MG/ALBUTEROL 2.5MG INH SOL UD 3ML (DUONEB)(J7620) NEB SCH ×4 (02:00→20:55)
[2016-11-24] MEDS: methylPREDNISolone INJ 125 MG/2 ML VIAL (J2930) IV SCH ×3 (04:20→21:04)
[2016-11-24 05:32] LABS: ADD MANUAL DIFFER YES; MEAN CORPUSCULAR HEMOGLOBIN 28.6 pg (27.0-33.0); MEAN CORPUSCULAR HGB CONC 33.4 g/dl (32.0-36.5); MEAN CORPUSCULAR VOLUME 85.6 fl (80.0-96.0); PLATELET COUNT, AUTOMATED 246 k/mm3 (150-450); RED CELL DISTRIBUTION WIDTH 14.9 % (11.5-14.5); WHITE BLOOD COUNT 6.9 K/mm3 (4.0-10.0)
[2016-11-24 05:54] LABS: ALBUMIN/GLOBULIN RATIO 0.59 (1.00-1.93); BILIRUBIN,TOTAL 0.3 MG/DL (0.2-1.0); CALCIUM LEVEL 8.7 MG/DL (8.8-10.2); CREATININE FOR GFR 1.15 MG/DL (0.55-1.02); GLOMERULAR FILTRATION RATE 49.8 (>45); MAGNESIUM LEVEL 2.2 MG/DL (1.8-2.4); POTASSIUM SERUM 4.1 MEQ/L (3.5-5.1); TOTAL PROTEIN 5.4 GM/DL (6.4-8.2)
[2016-11-24] MEDS: LEVOTHYROXINE 100MCG TABLET (0.1MG) PO SCH (05:54)
[2016-11-24 06:41] LABS: BANDS 3 % (< 11)
[2016-11-24 06:42] LABS: ANISOCYTOSIS 1+
--- NOTE | 2016-11-24 08:12 | IPN ---
DATE: 11/23/2016 I was asked to evaluate Judy Vega for increasing cough, hypoxemia and an abnormal x-ray/CT scan. This is a pleasant 71-year-old female generally followed by Dr. Slade in the office. She has a complicated extensive past medical history, most notably for history of non-Hodgkin lymphoma, status post treatment. 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 She completed therapy about two years ago. At that time, she had significant cough, was evaluated for abnormality CT scan and felt to have underlying fibrosis on the basis of amiodarone toxicity. She had a significant exacerbation in July of this year. She has been on high dose steroids since. Her main complaint has been cough. She has intermittent bouts with hypoxemia. She has been evaluated by multiple providers as of late, not including multiple trips to the emergency room (ER). Of note however, is a recent culture obtained of her sputum that shows pseudomonas, which she has had difficulties with in the past, and now significant growth of Serratia marcescens and I am asked asked to evaluate her further. Since being admitted, she has been on ceftazidime for serratia. Her pseudomonas is currently not being treated. Her oxygen levels are better, but she still has persistent cough. She complains bitterly of cough mainly in the morning hours and then again worse in the evening; only intermittently productive. Occasionally, when she does raise sputum, it is quite greenish in nature. Denies any fevers. Most recent vital signs show a blood pressure of 123/96, heart rate in the 80s and regular, respiratory rate 18 to 20 unlabored and she is been afebrile since admission. Oxygen saturation remains 92% to 98% on room air. She dose wear her CPAP at night. Most recent laboratory show a white blood cell count 7.5, hemoglobin 11.6, platelet count of 223,000. Sodium 138, potassium 4.2, chloride 101, CO2 29, BUN 22, creatine 1.29, glucose 372 this morning, it was as high as 599 yesterday. Blood gas obtained at the time of admission on room air shows a pH of 7.507, pCO2 of 30.6 and pAO2 of 76.4. CT scan of the chest done yesterday without contrast compared to her film from July shows marked improvement in her fluffy alveolar filling areas of infiltrates/edema. She does have areas of bronchiectasis. Areas of interstitial scarring persists, although in general her scan has markedly improved since July. On exam, she is a pleasant female appears her stated age. Vitals as outlined above. HEENT: Does show a cushingoid appearance. Pupils reactive. Sclerae clear. There are scars consistent with her parotid removal. Membranes are moist. Airway is class 3. Trachea is in the midline. CHEST: Shows diminished, but symmetric expansion. There is some fairly haddad-inspiratory crackles at the extreme basis. There are some opening squeaks at the bases bilaterally, right mildly greater than left. No convincing rhonchi. No wheezes. No rubs. No convincing egophony. CARDIAC: Exam is distant, generally regular. There is a 2/6 systolic murmur heard best at the base. Peripheral pulses diminished, but palpable. Trace edema. ABDOMEN: Obese, soft, active bowel sounds. No convincing organomegaly or masses. EXTREMITIES: Show no cyanosis or clubbing. NEUROLOGICAL: She is awake, alert and appropriate. PSYCHIATRIC: Normal mood and affect. CULTURES: As outlined above. IMPRESSION: 1. Cough, multiple factorial. 2. Abnormal x-ray/CT scan with improvement compared to July. 3. 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 4. joint terminal attack controller use of systemic steroids. 5. Obstructive sleep apnea syndrome. Compliant with pressure therapy. 6. Rhinitis, multifactorial. 7. History of lymphoma. 8. Previous atrial fibrillation/flutter. 9. Hypoxia, intermittent RECOMMENDATIONS: I had a long discussion with the patient and her daughter who is seated at the bedside. It is reassuring that her CT scan is markedly improved. At this point, I believe her cough is truly multifactorial. She has a significant degree of nasal symptoms with post nasal drainage, which currently are not being aggressively treated and we will intervene in that regard. Given the fact that she does intermittently produce greenish sputum and has grown both serratia and pseudomonas, I would change her antimicrobials. She is currently on ceftriaxone and I will change her to ceftazidime and tobramycin. If she has persistent problems with pseudomonas, she can certainly be placed on inhaled tobramycin in the outpatient setting as it now comes in an inhaler form. Her steroids I think we can rapidly wean at least to her home levels. We will began this tomorrow. She has had difficulties as of late regarding her overall volume status and I will refer to the primary service or if she has been followed by cardiology, it may be reasonable to have that reassessed especially in view of her previous dysfunction and her known murmur. She is on high-dose steroids, currently is not on ulcer prophylaxis and that will be added. I do believe some element of reflux may be playing a role as well in her symptoms. We will add low-dose cough suppression for a comfort level for her , as at times she does not sleep because of her cough. She will be followed closely while she is here in the hospital. Further recommendations will be made in the progress records as new information becomes available. JAQUAN
--- NOTE | 2016-11-24 08:12 | HPE ---
DATE OF ADMISSION: 11/22/2016 PRIMARY CARE PROVIDER: Zamzam Pham MD HISTORY OF PRESENT ILLNESS: This is a 71-year-old female with a significant medical history for multiple hospitalizations secondary to pulmonary fibrosis in the past. Over the last two weeks the patient has been having continued episodes of cough with shortness of breath, which initially improved with aggressive outpatient diuresis increasing her furosemide dosing from 20 mg by mouth daily to 40 mg by mouth twice a day. The patient has had a significant weight drop and improvement in her symptoms. However, continued with a cough. She was provided Mucinex as needed for the cough with minimal relief. The patient presented herself to the emergency room both on November 14 and then again on November 17 for complaints of cough and severe fatigue. Work up including multiple tests, chest x-rays and labs, all of which proved negative. She did have extenuating interstitial markings noted on the 11/17 chest x-ray and was sent home on increased dosing of methylprednisolone and guaifenesin with codeine. Today, the patient presents to our office with vomiting, nausea, abdominal discomfort without diarrhea and worsening cough. The patient's daughter stated had difficulty getting the patient out of bed yesterday. She had some slurred speech and noted that her blood sugar was in the 60s. This did improve with giving her some juice and she improved up to 219 at that point. The patient had her own oxygen saturation monitor at home and noted that she was 84% on 3 liters with exertion today, also noted she was in the low 80s on rest on room air today as well. PAST MEDICAL HISTORY SIGNIFICANT FOR: 1. Pulmonary fibrosis. 2. Atrial fibrillation with flutter and rapid ventricular response. 3. 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 4. Hypertension. 5. Hypothyroidism. 6. Hyperlipidemia. 7. Insulin-dependent type [address] Fauzia Bansal. 8 Gastroesophageal reflux disease (GERD). 9. Macular degeneration. 10. Obstructive sleep apnea with use of CPAP. 11. History of asthma prior to pulmonary fibrosis diagnosis 12. History of cataracts. ALLERGIES INCLUDE: JANUVIA, which causes a rash and LISINOPRIL, which causes cough. SURGICAL HISTORY: 1. Umbilical hernia repair. 2. Left inguinal hernia repair. 3. Tubal ligation. 4. Right thumb procedure. 5. Left meniscus repair. 6. Left rotator cuff repair. 7. Left rotator cuff repair. 8. Cholecystectomy. 9. Right total knee replacement. 10. Excisional biopsy of the left lymph node. 11. Right cataract surgery. 12. Vitreous hemorrhage bilaterally. 13. Left cataract surgery. 14. Left carpal tunnel release. 15. Right parotidectomy 16. Cardiac ablation times three within the last year. 17. Colonoscopy in 2006. HOSPITALIZATIONS INCLUDE: Surgical needs, as well as hospitalizations for syncope with chest pain, atrial fibrillation and flutter, congestive heart failure (CHF) exacerbation and pulmonary fibrosis exacerbation. FAMILY HISTORY: Father due to coronary artery disease, hypertension and diabetes. Mother with a history of hypertension, diabetes, hypothyroidism and hypertension. She has a family history of diabetes and hypertension in all of her siblings. She has a brother that had a stroke at the age of 52. SOCIAL HISTORY: She lives with her who also has multiple chronic medial illnesses, however she is cared for by her family, her daughter Kelly is primary child care associate teacher and assist with grocery shopping, cleaning, cooking, as well as medical appointments. Smoking: The patient is a nonsmoker. Alcohol is negative. She drinks one to two cups of coffee per day and denies any illicit drug use. REVIEW OF SYSTEMS: The patient is complaining of cough, dyspnea, hypoxia, nausea, vomiting, abdominal discomfort without pain, fatigue, lethargy. All of other review of systems are negative. PHYSICAL EXAMINATION: Weight is 205 pounds, height is 60 1/2 inches. Blood pressure 142/64, heart rate 100 beats per minute. The patient has a significant cough or exerts herself, heart rate increases into the 120s, respiratory rate is 20 to 24 breaths per minute, temperature 99 degrees Fahrenheit, oxygen saturation 94% on 5 liters nasal cannula. Her oxygen saturation maintained stable at 92% on 2 liters nasal cannula in office. GENERAL: The patient is resting, coughing, appears chronically ill, has difficulty maintaining a sentence secondary to her dyspnea. HEENT: Neck is supple without lymphadenopathy. CARDIOVASCULAR: Heart rate and rhythm are regular. However, she is tachycardiac. PULMONARY: Breath sounds are diminished throughout. ABDOMEN: Soft and nontender with positive bowel sounds in all four quadrants. EXTREMITIES: Bilateral lower extremities are with +1 edema. ADMITTING DIAGNOSES: 1. Pulmonary fibrosis with exacerbation. 2. Hypoxia. 3. Serratia marcescens 4. Pseudomonas aeruginosa, both positive in the patient's sputum culture. 5. History of congestive heart failure (CHF) with an echocardiogram within the last year with an ejection fraction of 50% to 55%. SECONDARY DIAGNOSES INCLUDE: 1. Diabetes. 2. Atrial fibrillation. 3. Hypertension. 4. Hypothyroidism 5. Hyperlipidemia 6. Gastroesophageal reflux disease (GERD). 7. Macular degeneration. 8. Obstructive sleep apnea. PLAN: The patient will be admitted, anticipate at least two midnight stays. We will obtain preliminary labs, CT of the chest. Continue the patient's Xopenex nebulizer, as well as DuoNeb. Chest PT was ordered. Pulmonology consult with Dr. Cannon was ordered as well. We will continue the patient's routine medications. Physical therapy, as well as Patient Family Services (PFS) consults were placed. Admission was discussed with Dr. Irais Inman and is agreeable to admission. She did evaluate the patient while in office prior to her admission to PCU. The patient and family were in agreement with admission.
[2016-11-24] MEDS: HumaLOG INSULIN (NovoLOG) PER UNIT SC SCH ×4 (08:55→21:20)
[2016-11-24] MEDS: SENOKOT S TAB PO SCH ×2 (09:00→21:04)
[2016-11-24] MEDS: DOCUSATE SODIUM 100 MG CAP PO SCH ×2 (09:00→21:00)
--- NOTE | 2016-11-24 09:01 | IPNPDOC ---
Subjective Date Seen The patient was seen on 11/24/16. Subjective Chief Complaint/HPI The patient is a 71-year-old female admitted with a reason for visit of Hypoxia. Events since last encounter Pt this morning is feeling significantly better. Her cough is less, her breathing is improved. She has been out of bed to the bathroom and has eaten breakfast. General: Reports: Fatigue Constitutional: Denies: Chills, Fever ENT: Denies: Head Aches Pulmonary: Reports: Dyspnea, Cough Cardiovascular: Denies: Chest Pain, Palpitations Gastrointestinal: Denies: Nausea, Vomiting, Diarrhea Genitourinary: Denies: Dysuria Musculoskeletal: Denies: Neck Pain Neurological: Denies: Weakness Psych: Reports: Mood Normal Objective Physical Examination General Exam: Positive: Alert, No Acute Distress ENT Exam: Positive: Mucous membr. moist/pink Chest Exam: Positive: Diminished (lung sounds are diminished, although pretty clear, she has a harsh cough), Other Heart Exam: Positive: Rate Normal, Normal S1, Normal S2, Negative: Murmurs Abdomen Exam: Positive: Normal bowel sounds, Soft, Negative: Tenderness Extremity Exam: Negative: Edema Psych Exam: Positive: Mental status NL, Mood NL Assessment /Plan Problems (1) Bronchiectasis Status: Acute Problem Text: 11/24 - Dr Cannon has seen the pt for Pulm, has changed IV antibiotics 11/23 to Ceftaz and tobra, rec considing Tobra inhaled if needed as an outpt D2 ceftaz/tobra 11/22 CT chest: Evaluation of the lung medina shows improved patchy air space disease with essentially unchanged cylindrical bronchiectasis with basilar predominance 11/19 SCX: moderate S. marcescnes/P. aeruginosa-both sens to ceftaz/tobra (2) Acute on chronic systolic (congestive) heart failure Status: Acute Discussed With: Patient Problem Specific Plan: Monitor Clinically, Repeat Labs Problem Text: Pt sounds wet on exam with crackles at the bases, she also has increase BLE edema c/w yesterday. Start Laxix 40 mg IV BID, monitor closely. GIven her recent A fib and rapid rate I think this has contributed. ECHO 01/06 EF 30-35% (3) Acute and chronic respiratory failure Status: Acute Response to Treatment: Stable Discussed With: Nurse, Operation Research Analyst, Patient Problem Specific Plan: Monitor Clinically, Repeat Labs Problem Text: 11/24 - Resp status improved with current regimen, may be able to decrease SoluMedrol dose tomorrow. 11/23 Pt admitted on Duonebs, Solumedrol 80 mg IV q8h, Dr Cannon has been consulted and plans to see the pt today. Her resp status is stable. Stressed to nurses and pt goal of O2 Sat is close to 88-90%. (4) Atrial fibrillation with RVR Status: Chronic Response to Treatment: Stable Discussed With: Nurse, Patient Problem Specific Plan: Monitor Clinically, Repeat Labs Problem Text: 11/24 - ~10 minute AF c RVR c spontaneous conversion; therefore, metoprolol to 50 BID 11/23/16 two episodes of A fib with RVR last night resulting in 3 doses total of IV Lopressor. She is on Eliquis BID and metoprolol tartrate 25 BID, will continue this for now. Cont to monitor. LIkely her compromised resp status and the use of B2 agonist contributed to her conversion. She follows with Dr Kulkarni as an outpt. (5) DEVEN on CPAP Status: Chronic Response to Treatment: Stable Problem Specific Plan: Monitor Clinically (6) Pulmonary fibrosis Status: Chronic Response to Treatment: Stable Problem Specific Plan: Monitor Clinically Problem Text: See above. Follows with Dr Slade as outpt. Likely d/t Amiodorone toxicity. (7) HTN (hypertension) Status: Chronic Problem Specific Plan: Monitor Clinically (8) CKD (chronic kidney disease) stage 3, GFR 30-59 ml/min Status: Chronic Response to Treatment: Stable Problem Text: at baseline cr 1.2-1.3 Plan/VTE VTE Prophylaxis Ordered?: Yes VS, I&O, 24H, Fishbone Vital Signs/I&O Vital Signs Date Time Temp Pulse Resp B/P (MAP) Pulse Ox O2 Delivery O2 Flow Rate FiO2 11/24/16 08:00 98.6 93 18 138/80 (99) 93 Room Air I&O- Last 24 Hours up to 6 AM 11/24/16 06:00 Intake Total 1570 ml Output Total 400 ml Balance 1170 ml Laboratory Data 24H LABS Laboratory Tests 2 11/23/16 11:26: Bedside Glucose (Misc Panel) 508*H 11/23/16 16:43: Bedside Glucose (Misc Panel) 333H 11/23/16 21:00: Bedside Glucose (Misc Panel) 388H 11/24/16 05:18: Neutrophils 83H, Band Neutrophils 3, Lymphocytes (Manual) 11L, Monocytes (Manual ) 2, Myelocytes 1H, Platelet Estimate NORMAL, Anisocytosis 1+, Anion Gap 9, Glomerular Filtration Rate 49.8, Blood Urea Nitrogen 25H, Creatinine 1.15H, Sodium Level 139, Potassium Level 4.1, Chloride Level 103, Carbon Dioxide Level 27, Calcium Level 8.7L, Aspartate Amino Transf (AST/SGOT) 13L, Alanine Aminotransferase (ALT/SGPT) 28, Alkaline Phosphatase 75, Total Bilirubin 0.3, Total Protein 5.4L, Albumin 2.0L, Magnesium Level 2.2, Albumin/Globulin Ratio 0.59L CBC/BMP Laboratory Tests 11/24/16 05:18 Red Blood Count 4.08, Mean Corpuscular Volume 85.6, Mean Corpuscular Hemoglobin 28.6, Mean Corpuscular Hemoglobin Concent 33.4, Red Cell Distribution Width 14.9 H, Calcium Level 8.7 L, Aspartate Amino Transf (AST/SGOT) 13 L, Alanine Aminotransferase (ALT/SGPT) 28, Alkaline Phosphatase 75, Total Bilirubin 0.3, Total Protein 5.4 L, Albumin 2.0 L Microbiology Microbiology 11/22/16 Blood Culture - Preliminary, Resulted No growth after 24 hours . All specim... 11/22/16 Blood Culture - Preliminary, Resulted No growth after 24 hours . All specim... JUDE LOJA PA-C Nov 24, 2016 09:01 Kamron Montoya M.D. Nov 24, 2016 15:27
[2016-11-24] MEDS: METOPROLOL TART 25 MG TABLET PO SCH (09:50)
[2016-11-24] MEDS: APIXABAN 5 MG TAB (ELIQUIS) PO SCH ×2 (09:50→21:04)
[2016-11-24] MEDS: guaiFENesin ER 600 MG TAB PO SCH ×2 (09:50→21:07)
[2016-11-24] MEDS: PANTOPRAZOLE 40MG TAB (PROTONIX) PO SCH (09:51)
[2016-11-24] MEDS: LEVEMIR (INSULIN DETEMIR) 1 UNITS/0.01ML SC SCH (09:52)
[2016-11-24] MEDS: FLUTICASONE PROP 0.05% NASAL SPRAY 16 GM (FLONASE) SCH (09:53)
[2016-11-24] MEDS: FUROSEMIDE 40 MG/4 ML VIAL (J1940) IV SCH ×2 (10:20→17:33)
[2016-11-24] MEDS: TOBRAMYCIN SULF 100 MG in D5W 50 ML IV SCH (11:05)
[2016-11-24] MEDS: METOPROLOL TART 50 MG TAB PO SCH (21:05)
[2016-11-25] MEDS: cefTAZidime 1 GM in D5W MINI-BAG PLUS 100 ML IV SCH ×3 (01:06→18:11)
[2016-11-25] MEDS: IPRATROPIUM 0.5MG/ALBUTEROL 2.5MG INH SOL UD 3ML (DUONEB)(J7620) NEB SCH ×4 (01:29→19:33)
[2016-11-25] MEDS: methylPREDNISolone INJ 125 MG/2 ML VIAL (J2930) IV SCH ×3 (04:43→20:01)
[2016-11-25] MEDS: LEVOTHYROXINE 100MCG TABLET (0.1MG) PO SCH (04:44)
[2016-11-25 05:00] VITALS: BP 130/76
[2016-11-25 05:31] LABS: ADD MANUAL DIFFER YES; MEAN CORPUSCULAR HEMOGLOBIN 29.5 pg (27.0-33.0); MEAN CORPUSCULAR HGB CONC 34.3 g/dl (32.0-36.5); MEAN CORPUSCULAR VOLUME 85.9 fl (80.0-96.0); PLATELET COUNT, AUTOMATED 292 k/mm3 (150-450); RED CELL DISTRIBUTION WIDTH 14.7 % (11.5-14.5); WHITE BLOOD COUNT 6.5 K/mm3 (4.0-10.0)
[2016-11-25 05:37] LABS: ALBUMIN 2.2 GM/DL (3.2-5.2); ALBUMIN/GLOBULIN RATIO 0.79 (1.00-1.93); BILIRUBIN,TOTAL 0.4 MG/DL (0.2-1.0); CALCIUM LEVEL 8.4 MG/DL (8.8-10.2); CREATININE FOR GFR 1.15 MG/DL (0.55-1.02); GLOMERULAR FILTRATION RATE 49.8 (>45); MAGNESIUM LEVEL 2.3 MG/DL (1.8-2.4); POTASSIUM SERUM 3.4 MEQ/L (3.5-5.1)
[2016-11-25] MEDS: TOBRAMYCIN SULF 100 MG in D5W 50 ML IV SCH ×2 (05:53→23:50)
[2016-11-25 06:43] LABS: ANISOCYTOSIS 1+
[2016-11-25 08:00] VITALS: BP 160/82
[2016-11-25] MEDS: LEVEMIR (INSULIN DETEMIR) 1 UNITS/0.01ML SC SCH (08:30)
[2016-11-25] MEDS: FUROSEMIDE 40 MG/4 ML VIAL (J1940) IV SCH (08:30)
[2016-11-25] MEDS: HumaLOG INSULIN (NovoLOG) PER UNIT SC SCH ×4 (08:30→23:44)
[2016-11-25] MEDS: DOCUSATE SODIUM 100 MG CAP PO SCH ×2 (08:31→19:53)
[2016-11-25] MEDS: guaiFENesin ER 600 MG TAB PO SCH ×2 (08:31→19:54)
[2016-11-25] MEDS: METOPROLOL TART 50 MG TAB PO SCH (08:31)
[2016-11-25] MEDS: APIXABAN 5 MG TAB (ELIQUIS) PO SCH ×2 (08:31→19:54)
[2016-11-25] MEDS: PANTOPRAZOLE 40MG TAB (PROTONIX) PO SCH (08:31)
[2016-11-25] MEDS: SENOKOT S TAB PO SCH ×2 (08:32→19:54)
[2016-11-25] MEDS: FLUTICASONE PROP 0.05% NASAL SPRAY 16 GM (FLONASE) SCH (08:32)
[2016-11-25 12:00] VITALS: BP 164/76
[2016-11-25 16:00] VITALS: BP 138/76
--- NOTE | 2016-11-25 16:22 | IPNPDOC ---
Subjective Date Seen The patient was seen on 11/25/16. Subjective Chief Complaint/HPI The patient is a 71-year-old female admitted with a reason for visit of Hypoxia. Events since last encounter Patient walking hallways this morning and states she is feeling much better overall. Constitutional: Denies: Chills, Fever ENT: Denies: Head Aches Pulmonary: Reports: Dyspnea (chronic), Cough (chronic) Cardiovascular: Denies: Chest Pain, Palpitations, Lt Headedness Gastrointestinal: Denies: Nausea, Vomiting, Abdominal Pain, Diarrhea, Constipation Genitourinary: Denies: Dysuria Neurological: Denies: Weakness, Numbness Objective Physical Examination General Exam: Positive: Alert, No Acute Distress ENT Exam: Positive: Mucous membr. moist/pink Chest Exam: Positive: Diminished (lung sounds are diminished, although pretty clear, she has a harsh cough), Other Heart Exam: Positive: Rate Normal, Normal S1, Normal S2, Negative: Murmurs Abdomen Exam: Positive: Normal bowel sounds, Soft, Negative: Tenderness Extremity Exam: Negative: Edema Psych Exam: Positive: Mental status NL, Mood NL Assessment /Plan Problems (1) Bronchiectasis Status: Acute Problem Text: 11/25 - Doing better on current regimen; will wean solumedrol to 60 mg Q8H, and then will wean further tomorrow. 11/24 - Dr Cannon has seen the pt for Pulm, has changed IV antibiotics 11/23 to Ceftaz and tobra, rec considing Tobra inhaled if needed as an outpt D2 ceftaz/tobra 11/22 CT chest: Evaluation of the lung [facility] shows improved patchy air space disease with essentially unchanged cylindrical bronchiectasis with basilar predominance 11/19 SCX: moderate S. marcescnes/P. aeruginosa-both sens to ceftaz/tobra (2) Acute on chronic systolic (congestive) heart failure Status: Acute Discussed With: Patient Problem Specific Plan: Monitor Clinically, Repeat Labs Problem Text: 11/25 - no lower extremity edema today; wean lasix to 40 mg IV daily. 11/24 - Pt sounds wet on exam with crackles at the bases, she also has increase BLE edema c/w yesterday. Start Laxix 40 mg IV BID, monitor closely. Given her recent A fib and rapid rate I think this has contributed. ECHO 01/06 EF 30-35% (3) Acute and chronic respiratory failure Status: Acute Response to Treatment: Stable Discussed With: Nurse, Application Development Consultant, Patient Problem Specific Plan: Monitor Clinically, Repeat Labs Problem Text: Resp status improved with current regimen, see bronchiectasis above 8/ Pt admitted on Duonebs, Solumedrol 80 mg IV q8h, Dr Cannon has been consulted and plans to see the pt today. Her resp status is stable. Stressed to nurses and pt goal of O2 Sat is close to 88-90%. (4) Atrial fibrillation with RVR Status: Chronic Response to Treatment: Stable Discussed With: Nurse, Patient Problem Specific Plan: Monitor Clinically, Repeat Labs Problem Text: 11/25 - rate controlled since increasing metoprolol yesterday 11/24 - ~10 minute AF c RVR c spontaneous conversion; therefore, metoprolol to 50 BID 11/23/16 two episodes of A fib with RVR last night resulting in 3 doses total of IV Lopressor. She is on Eliquis BID and metoprolol tartrate 25 BID, will continue this for now. Cont to monitor. LIkely her compromised resp status and the use of B2 agonist contributed to her conversion. She follows with Dr Kulkarni as an outpt. (5) DEVEN on CPAP Status: Chronic Response to Treatment: Stable Problem Specific Plan: Monitor Clinically (6) Pulmonary fibrosis Status: Chronic Response to Treatment: Stable Problem Specific Plan: Monitor Clinically Problem Text: See above. Follows with Dr Slade as outpt. Likely d/t Amiodorone toxicity. (7) HTN (hypertension) Status: Chronic Problem Specific Plan: Monitor Clinically (8) CKD (chronic kidney disease) stage 3, GFR 30-59 ml/min Status: Chronic Response to Treatment: Stable Problem Text: at baseline cr 1.2-1.3 (9) T2DM (type 2 diabetes mellitus) Status: Chronic Response to Treatment: Worse Problem Text: Blood glucose has been persistently in the 400s despite receiving higher than home dose of levemir (52 U QHS at home, 60 U here); likely due to steroids; will increase levemir to 70 QHS tonight Plan/VTE VTE Prophylaxis Ordered?: Yes (apixaban) VS, I&O, 24H, Fishbone Vital Signs/I&O Vital Signs Date Time Temp Pulse Resp B/P (MAP) Pulse Ox O2 Delivery O2 Flow Rate FiO2 11/25/16 12:00 97.6 77 18 164/76 (105) 97 Room Air 11/25/16 01:30 3.0 I&O- Last 24 Hours up to 6 AM 11/25/16 06:00 Intake Total 1800 ml Output Total 4150 ml Balance -2350 ml Laboratory Data 24H LABS Laboratory Tests 2 11/24/16 16:51: Bedside Glucose (Misc Panel) 364H 11/24/16 21:14: Bedside Glucose (Misc Panel) 411H 11/25/16 03:01: Tobramycin Level Trough 1.3 11/25/16 04:53: Neutrophils 84H, Lymphocytes (Manual) 13L, Monocytes (Manual) 3, Platelet Estimate NORMAL, Anisocytosis 1+, Anion Gap 15, Glomerular Filtration Rate 49.8 , Blood Urea Nitrogen 32H, Creatinine 1.15H, Sodium Level 140, Potassium Level 3.4L, Chloride Level 99, Carbon Dioxide Level 26, Calcium Level 8.4L, Aspartate Amino Transf (AST/SGOT) 16, Alanine Aminotransferase (ALT/SGPT) 33, Alkaline Phosphatase 78, Total Bilirubin 0.4, Total Protein 5.0L, Albumin 2.2L, Magnesium Level 2.3, Albumin/Globulin Ratio 0.79L, Tobramycin Level Peak 1.1L 11/25/16 12:04: Bedside Glucose (Misc Panel) 441H CBC/BMP Laboratory Tests 11/25/16 04:53 Red Blood Count 4.26, Mean Corpuscular Volume 85.9, Mean Corpuscular Hemoglobin 29.5, Mean Corpuscular Hemoglobin Concent 34.3, Red Cell Distribution Width 14.7 H, Calcium Level 8.4 L, Aspartate Amino Transf (AST/SGOT) 16, Alanine Aminotransferase (ALT/SGPT) 33, Alkaline Phosphatase 78, Total Bilirubin 0.4, Total Protein 5.0 L, Albumin 2.2 L Microbiology Microbiology 11/22/16 Blood Culture - Preliminary, Resulted No Growth after 72 hours. All specime... 11/22/16 Blood Culture - Preliminary, Resulted No Growth after 72 hours. All specime... ALBERTO KEITA MD Nov 25, 2016 16:22
[2016-11-25] MEDS: NYSTATIN 500,000 U/5 ML SUSP UDC SS SCH ×2 (18:11→19:54)
[2016-11-25] MEDS: METOPROLOL TART 25 MG TABLET PO SCH (19:54)
[2016-11-25 20:42] VITALS: BP 150/84
[2016-11-26] VITALS (7 sets, daily range): BP systolic 120–161; BP diastolic 64–80
[2016-11-26] MEDS ORDERED: TOBRAMYCIN SULF 100 MG in D5W 50 ML IV SCH ×2
[2016-11-26] MEDS: cefTAZidime 1 GM in D5W MINI-BAG PLUS 100 ML IV SCH ×3 (01:21→16:26)
[2016-11-26] MEDS: IPRATROPIUM 0.5MG/ALBUTEROL 2.5MG INH SOL UD 3ML (DUONEB)(J7620) NEB SCH ×4 (02:28→20:43)
[2016-11-26] MEDS: methylPREDNISolone INJ 125 MG/2 ML VIAL (J2930) IV SCH (04:32)
[2016-11-26 05:33] LABS: BASO % 0.1 % (0.0-1.0); EOS % 0.1 % (0.0-3.0); LARGE UNSTAINED CELL % 0.4 % (0.0-4.0); LYMPH # 1.2 K/mm3 (1.5-4.5); LYMPH % 15.5 % (24.0-44.0); MEAN CORPUSCULAR HEMOGLOBIN 28.9 pg (27.0-33.0); MEAN CORPUSCULAR HGB CONC 34.1 g/dl (32.0-36.5); MEAN CORPUSCULAR VOLUME 84.7 fl (80.0-96.0); MONO # 0.3 K/mm3 (0.0-0.8); MONO % 4.4 % (0.0-5.0); NEUTROPHILS # 5.8 K/mm3 (1.8-7.7); NEUTROPHILS % 79.4 % (36.0-66.0); PLATELET COUNT, AUTOMATED 272 k/mm3 (150-450); WHITE BLOOD COUNT 7.3 K/mm3 (4.0-10.0)
[2016-11-26] MEDS: LEVOTHYROXINE 100MCG TABLET (0.1MG) PO SCH (05:53)
[2016-11-26 05:58] LABS: ALBUMIN 2.1 GM/DL (3.2-5.2); ALBUMIN/GLOBULIN RATIO 0.66 (1.00-1.93); BILIRUBIN,TOTAL 0.3 MG/DL (0.2-1.0); CALCIUM LEVEL 8.5 MG/DL (8.8-10.2); CREATININE FOR GFR 1.14 MG/DL (0.55-1.02); GLOMERULAR FILTRATION RATE 50.3 (>45); MAGNESIUM LEVEL 2.2 MG/DL (1.8-2.4); POTASSIUM SERUM 3.1 MEQ/L (3.5-5.1); TOTAL PROTEIN 5.3 GM/DL (6.4-8.2)
--- NOTE | 2016-11-26 08:35 | IPNPDOC ---
Subjective Date Seen The patient was seen on 11/26/16. Subjective Chief Complaint/HPI The patient is a 71-year-old female admitted with a reason for visit of Hypoxia. Events since last encounter Patient states she is feeling much better and her breathing is improved. She doesn't think she has much leg edema. She had afib with RVR last night with rate to 190; this decreased to 70s-80s after she received an increased dose of metoprolol 75 mg PO. She was asymptomatic with this. Constitutional: Denies: Chills, Fever, Malaise Pulmonary: Denies: Dyspnea, Cough Cardiovascular: Denies: Chest Pain, Palpitations, Orthopnea, Lt Headedness Gastrointestinal: Denies: Nausea, Vomiting, Abdominal Pain, Diarrhea Genitourinary: Denies: Dysuria Neurological: Denies: Weakness, Numbness Objective Physical Examination General Exam: Positive: Alert, No Acute Distress ENT Exam: Positive: Mucous membr. moist/pink Chest Exam: Positive: Diminished (lung sounds are diminished, although pretty clear), Other, Negative: Rales, Rhonchi, Wheezing Heart Exam: Positive: Rate Normal, Normal S1, Normal S2 Abdomen Exam: Positive: Normal bowel sounds, Soft, Negative: Tenderness Extremity Exam: Negative: Edema Psych Exam: Positive: Mental status NL, Mood NL Assessment /Plan Problems (1) Bronchiectasis Status: Acute Problem Text: 11/26 - Continue to wean solumedrol today to 40 mg IV BID; patient states home dose is 20-40 mg PO daily. Continue ceftaz, tobra, and duonebs. 11/24 - Dr Cannon has seen the pt for Pulm, has changed IV antibiotics 11/23 to Ceftaz and tobra, rec considing Tobra inhaled if needed as an outpt D2 ceftaz/tobra 11/22 CT chest: Evaluation of the lung [facility] shows improved patchy air space disease with essentially unchanged cylindrical bronchiectasis with basilar predominance 11/19 SCX: moderate S. marcescnes/P. aeruginosa-both sens to ceftaz/tobra (2) Acute on chronic systolic (congestive) heart failure Status: Acute Discussed With: Patient Problem Specific Plan: Monitor Clinically, Repeat Labs Problem Text: 11/26 - no lower extremity edema today; wean lasix to home dose of 20 mg daily - Potassium low, likely due to furosemide - will give IV K-run today and recheck tomorrow. 11/24 - Pt sounds wet on exam with crackles at the bases, she also has increase BLE edema c/w yesterday. Start Laxix 40 mg IV BID, monitor closely. Given her recent A fib and rapid rate I think this has contributed. ECHO 01/06 EF 30-35% (3) Acute and chronic respiratory failure Status: Acute Response to Treatment: Stable Discussed With: Nurse, Professor Of Astronomy, Patient Problem Specific Plan: Monitor Clinically, Repeat Labs Problem Text: Resp status improved with current regimen, see bronchiectasis above (4) Atrial fibrillation with RVR Status: Chronic Response to Treatment: Stable Discussed With: Nurse, Patient Problem Specific Plan: Monitor Clinically, Repeat Labs Problem Text: 11/26 - Afib with RVR last night, responded well to further titration of metoprolol to 75 mg PO BID and has been rate-controlled since yesterday evening 11/24 - ~10 minute AF c RVR c spontaneous conversion; therefore, metoprolol to 50 BID 11/23/16 two episodes of A fib with RVR last night resulting in 3 doses total of IV Lopressor. She is on Eliquis BID and metoprolol tartrate 25 BID, will continue this for now. Cont to monitor. LIkely her compromised resp status and the use of B2 agonist contributed to her conversion. She follows with Dr Kulkarni as an outpt. (5) DEVEN on CPAP Status: Chronic Response to Treatment: Stable Problem Specific Plan: Monitor Clinically (6) Pulmonary fibrosis Status: Chronic Response to Treatment: Stable Problem Specific Plan: Monitor Clinically Problem Text: See above. Follows with Dr Slade as outpt. Likely d/t Amiodorone toxicity. (7) HTN (hypertension) Status: Chronic Problem Specific Plan: Monitor Clinically (8) CKD (chronic kidney disease) stage 3, GFR 30-59 ml/min Status: Chronic Response to Treatment: Stable Problem Text: at baseline cr 1.2-1.3 (9) T2DM (type 2 diabetes mellitus) Status: Chronic Response to Treatment: Worse Problem Text: Blood glucose has been persistently elevated, likely due to steroids - Levemir increased from HD of 52 units qAM, to 60 U upon admission, and then to 70 U on 11/26/16 Plan/VTE VTE Prophylaxis Ordered?: Yes (apixaban) VS, I&O, 24H, Fishbone Vital Signs/I&O Vital Signs Date Time Temp Pulse Resp B/P (MAP) Pulse Ox O2 Delivery O2 Flow Rate FiO2 11/26/16 08:00 97.2 69 20 158/64 (95) 97 Room Air 11/26/16 02:29 3.0 I&O- Last 24 Hours up to 6 AM 11/26/16 06:00 Intake Total 910 ml Output Total 2000 ml Balance -1090 ml Laboratory Data 24H LABS Laboratory Tests 2 11/25/16 12:04: Bedside Glucose (Misc Panel) 441H 11/25/16 17:08: Bedside Glucose (Misc Panel) 334H 11/25/16 22:58: Tobramycin Level Trough 1.3 11/25/16 23:26: Bedside Glucose (Misc Panel) 333H 11/26/16 01:00: Tobramycin Level Peak 6.3 11/26/16 05:09: White Blood Count 7.3, Red Blood Count 4.21, Hemoglobin 12.2, Hematocrit 35.6L, Mean Corpuscular Volume 84.7, Mean Corpuscular Hemoglobin 28.9, Mean Corpuscular Hemoglobin Concent 34.1, Red Cell Distribution Width 15.0H, Platelet Count 272, Neutrophils (%) (Auto) 79.4H, Lymphocytes (%) (Auto) 15.5L, Monocytes (%) (Auto) 4.4, Eosinophils (%) (Auto) 0.1, Basophils (%) (Auto) 0.1, Neutrophils # (Auto) 5.8, Lymphocytes # (Auto) 1.2L, Monocytes # (Auto) 0.3, Eosinophils # (Auto) 0.0, Basophils # (Auto) 0.0, Large Unclassified Cells % 0.4 , Large Unclassified Cells # 0.0, Anion Gap 9, Glomerular Filtration Rate 50.3, Blood Urea Nitrogen 31H, Creatinine 1.14H, Sodium Level 140, Potassium Level 3.1L, Chloride Level 101, Carbon Dioxide Level 30, Calcium Level 8.5L, Aspartate Amino Transf (AST/SGOT) 21, Alanine Aminotransferase (ALT/SGPT) 33, Alkaline Phosphatase 78, Total Bilirubin 0.3, Total Protein 5.3L, Albumin 2.1L, Magnesium Level 2.2, Albumin/Globulin Ratio 0.66L CBC/BMP Laboratory Tests 11/26/16 05:09 Red Blood Count 4.21, Mean Corpuscular Volume 84.7, Mean Corpuscular Hemoglobin 28.9, Mean Corpuscular Hemoglobin Concent 34.1, Red Cell Distribution Width 15.0 H, Neutrophils (%) (Auto) 79.4 H, Lymphocytes (%) (Auto) 15.5 L, Monocytes (%) (Auto) 4.4, Eosinophils (%) (Auto) 0.1, Basophils (%) (Auto) 0.1, Neutrophils # (Auto) 5.8, Lymphocytes # (Auto) 1.2 L, Monocytes # (Auto) 0.3, Eosinophils # (Auto) 0.0, Basophils # (Auto) 0.0, Calcium Level 8.5 L, Aspartate Amino Transf (AST/SGOT) 21, Alanine Aminotransferase (ALT/SGPT) 33, Alkaline Phosphatase 78, Total Bilirubin 0.3, Total Protein 5.3 L, Albumin 2.1 L Microbiology Microbiology 11/22/16 Blood Culture - Preliminary, Resulted No Growth after 72 hours. All specime... 11/22/16 Blood Culture - Preliminary, Resulted No Growth after 72 hours. All specime... ALBERTO KEITA MD Nov 26, 2016 08:35
[2016-11-26] MEDS ORDERED: FUROSEMIDE 40 MG/4 ML VIAL (J1940) IV SCH (09:00)
[2016-11-26] MEDS ORDERED: KCL 10MEQ IN 100ML SWI (KRUN) 10 MEQ in APPROPRIATE DILUENT 1 EA IV ONE ×2 (09:00)
[2016-11-26] MEDS: HumaLOG INSULIN (NovoLOG) PER UNIT SC SCH ×4 (09:13→21:45)
[2016-11-26] MEDS: NYSTATIN 500,000 U/5 ML SUSP UDC SS SCH ×4 (09:14→21:40)
[2016-11-26] MEDS: LEVEMIR (INSULIN DETEMIR) 1 UNITS/0.01ML SC SCH (09:14)
[2016-11-26] MEDS: FLUTICASONE PROP 0.05% NASAL SPRAY 16 GM (FLONASE) SCH (09:14)
[2016-11-26] MEDS: DOCUSATE SODIUM 100 MG CAP PO SCH ×2 (09:15→21:00)
[2016-11-26] MEDS: FUROSEMIDE 20 MG TAB PO SCH (09:15)
[2016-11-26] MEDS: APIXABAN 5 MG TAB (ELIQUIS) PO SCH ×2 (09:15→21:40)
[2016-11-26] MEDS: PANTOPRAZOLE 40MG TAB (PROTONIX) PO SCH (09:15)
[2016-11-26] MEDS: METOPROLOL TART 25 MG TABLET PO SCH ×2 (09:15→21:40)
[2016-11-26] MEDS: guaiFENesin ER 600 MG TAB PO SCH ×2 (09:15→21:35)
[2016-11-26] MEDS: SENOKOT S TAB PO SCH ×2 (09:15→21:00)
[2016-11-26] MEDS: methylPREDNISolone INJ 40 MG/1 ML VIAL (J2920) IV SCH (16:26)
[2016-11-26] MEDS: TOBRAMYCIN SULF 100 MG in D5W 50 ML IV SCH (17:20)
[2016-11-27] VITALS (7 sets, daily range): BP systolic 133–166; BP diastolic 65–87
[2016-11-27] MEDS: cefTAZidime 1 GM in D5W MINI-BAG PLUS 100 ML IV SCH ×3 (01:29→16:17)
[2016-11-27] MEDS: IPRATROPIUM 0.5MG/ALBUTEROL 2.5MG INH SOL UD 3ML (DUONEB)(J7620) NEB SCH ×4 (02:00→20:00)
[2016-11-27] MEDS: methylPREDNISolone INJ 40 MG/1 ML VIAL (J2920) IV SCH ×2 (04:05→16:17)
[2016-11-27 05:21] LABS: BASO % 0.4 % (0.0-1.0); EOS % 0.1 % (0.0-3.0); LARGE UNSTAINED CELL % 0.7 % (0.0-4.0); LYMPH # 1.3 K/mm3 (1.5-4.5); LYMPH % 21.5 % (24.0-44.0); MEAN CORPUSCULAR HEMOGLOBIN 28.7 pg (27.0-33.0); MEAN CORPUSCULAR HGB CONC 33.9 g/dl (32.0-36.5); MEAN CORPUSCULAR VOLUME 84.5 fl (80.0-96.0); MONO # 0.3 K/mm3 (0.0-0.8); MONO % 4.4 % (0.0-5.0); NEUTROPHILS # 4.5 K/mm3 (1.8-7.7); NEUTROPHILS % 72.8 % (36.0-66.0); PLATELET COUNT, AUTOMATED 238 k/mm3 (150-450); RED CELL DISTRIBUTION WIDTH 14.5 % (11.5-14.5); WHITE BLOOD COUNT 6.2 K/mm3 (4.0-10.0)
[2016-11-27 05:34] LABS: ALBUMIN/GLOBULIN RATIO 0.74 (1.00-1.93); BILIRUBIN,TOTAL 0.3 MG/DL (0.2-1.0); CALCIUM LEVEL 8.2 MG/DL (8.8-10.2); CREATININE FOR GFR 1.04 MG/DL (0.55-1.02); GLOMERULAR FILTRATION RATE 55.9 (>45); MAGNESIUM LEVEL 2.3 MG/DL (1.8-2.4); TOTAL PROTEIN 4.7 GM/DL (6.4-8.2)
[2016-11-27] MEDS: LEVOTHYROXINE 100MCG TABLET (0.1MG) PO SCH (05:54)
[2016-11-27] MEDS ORDERED: POTASSIUM CHLORIDE 10 MEQ SR TABLET PO ONE (07:45)
--- NOTE | 2016-11-27 08:14 | IPNPDOC ---
Subjective Date Seen The patient was seen on 11/27/16. Subjective Chief Complaint/HPI The patient is a 71-year-old female admitted with a reason for visit of Hypoxia. Events since last encounter Pt denies any new issues. Denies CP, SOB, Abd pain. Constitutional: Denies: Chills, Fever Pulmonary: Denies: Dyspnea Cardiovascular: Denies: Chest Pain Gastrointestinal: Denies: Nausea, Vomiting, Abdominal Pain Objective Physical Examination General Exam: Positive: Alert, No Acute Distress ENT Exam: Positive: Mucous membr. moist/pink Chest Exam: Positive: Diminished (lung sounds are diminished, although pretty clear), Other, Negative: Rales, Rhonchi, Wheezing Heart Exam: Positive: Rate Normal, Normal S1, Normal S2 Abdomen Exam: Positive: Normal bowel sounds, Soft, Negative: Tenderness Extremity Exam: Negative: Edema Psych Exam: Positive: Mental status NL, Mood NL Assessment /Plan Problems (1) Bronchiectasis Status: Acute Problem Text: 11/27 - Continue Solumedrol 40 mg IV BID; patient states home dose is 20-40 mg PO daily. Continue ceftaz, tobra, and duonebs. 11/26 - Continue to wean solumedrol today to 40 mg IV BID; patient states home dose is 20-40 mg PO daily. Continue ceftaz, tobra, and duonebs. 11/24 - Dr Cannon has seen the pt for Pulm, has changed IV antibiotics 11/23 to Ceftaz and tobra, rec considing Tobra inhaled if needed as an outpt D2 ceftaz/tobra 11/22 CT chest: Evaluation of the lung [facility] shows improved patchy air space disease with essentially unchanged cylindrical bronchiectasis with basilar predominance 11/19 SCX: moderate S. marcescnes/P. aeruginosa-both sens to ceftaz/tobra (2) Acute on chronic systolic (congestive) heart failure Status: Acute Discussed With: Patient Problem Specific Plan: Monitor Clinically, Repeat Labs Problem Text: 11/27 - On home dose of Lasix 20 mg daily. K low at 3. Will give KCl 40 meq x 1 dose. 11/26 - no lower extremity edema today; wean lasix to home dose of 20 mg daily - Potassium low, likely due to furosemide - will give IV K-run today and recheck tomorrow. 11/24 - Pt sounds wet on exam with crackles at the bases, she also has increase BLE edema c/w yesterday. Start Laxix 40 mg IV BID, monitor closely. Given her recent A fib and rapid rate I think this has contributed. ECHO 01/06 EF 30-35% (3) Acute and chronic respiratory failure Status: Acute Response to Treatment: Stable Discussed With: Nurse, Barn Worker, Patient Problem Specific Plan: Monitor Clinically, Repeat Labs Problem Text: Resp status improved with current regimen, see bronchiectasis above (4) Atrial fibrillation with RVR Status: Chronic Response to Treatment: Stable Discussed With: Nurse, Patient Problem Specific Plan: Monitor Clinically, Repeat Labs Problem Text: 11/27 - Nurse reports short run of Afib during night. Resolved and currently in SR. On Metoprolol 75 mg BID. 11/26 - Afib with RVR last night, responded well to further titration of metoprolol to 75 mg PO BID and has been rate-controlled since yesterday evening 11/24 - ~10 minute AF c RVR c spontaneous conversion; therefore, metoprolol to 50 BID 11/23/16 two episodes of A fib with RVR last night resulting in 3 doses total of IV Lopressor. She is on Eliquis BID and metoprolol tartrate 25 BID, will continue this for now. Cont to monitor. LIkely her compromised resp status and the use of B2 agonist contributed to her conversion. She follows with Dr Kulkarni as an outpt. (5) DEVEN on CPAP Status: Chronic Response to Treatment: Stable Problem Specific Plan: Monitor Clinically (6) Pulmonary fibrosis Status: Chronic Response to Treatment: Stable Problem Specific Plan: Monitor Clinically Problem Text: See above. Follows with Dr Slade as outpt. Likely d/t Amiodorone toxicity. (7) HTN (hypertension) Status: Chronic Problem Specific Plan: Monitor Clinically (8) CKD (chronic kidney disease) stage 3, GFR 30-59 ml/min Status: Chronic Response to Treatment: Stable Problem Text: at baseline cr 1.2-1.3 (9) T2DM (type 2 diabetes mellitus) Status: Chronic Response to Treatment: Worse Problem Text: Blood glucose has been persistently elevated, likely due to steroids - Levemir increased from HD of 52 units qAM, to 60 U upon admission, and then to 70 U on 11/26/16 Plan/VTE VTE Prophylaxis Ordered?: Yes (apixaban) VS, I&O, 24H, Fishbone Vital Signs/I&O Vital Signs Date Time Temp Pulse Resp B/P (MAP) Pulse Ox O2 Delivery O2 Flow Rate FiO2 11/27/16 07:41 Room Air 11/27/16 04:13 165/83 (110) 11/27/16 04:00 96.9 54 18 100 11/26/16 02:29 3.0 I&O- Last 24 Hours up to 6 AM 11/27/16 05:59 Intake Total 1192.5 ml Output Total 1225 ml Balance -32.5 ml Laboratory Data 24H LABS Laboratory Tests 2 11/26/16 12:22: Bedside Glucose (Misc Panel) 262H 11/26/16 16:59: Bedside Glucose (Misc Panel) 318H 11/26/16 21:34: Bedside Glucose (Misc Panel) 369H 11/27/16 05:01: White Blood Count 6.2, Red Blood Count 4.17, Hemoglobin 11.9L, Hematocrit 35.2L , Mean Corpuscular Volume 84.5, Mean Corpuscular Hemoglobin 28.7, Mean Corpuscular Hemoglobin Concent 33.9, Red Cell Distribution Width 14.5, Platelet Count 238, Neutrophils (%) (Auto) 72.8H, Lymphocytes (%) (Auto) 21.5L, Monocytes (%) (Auto) 4.4, Eosinophils (%) (Auto) 0.1, Basophils (%) (Auto) 0.4, Neutrophils # (Auto) 4.5, Lymphocytes # (Auto) 1.3L, Monocytes # (Auto) 0.3, Eosinophils # (Auto) 0.0, Basophils # (Auto) 0.0, Large Unclassified Cells % 0.7 , Large Unclassified Cells # 0.0, Anion Gap 9, Glomerular Filtration Rate 55.9, Blood Urea Nitrogen 29H, Creatinine 1.04H, Sodium Level 143, Potassium Level 3.0L, Chloride Level 103, Carbon Dioxide Level 31, Calcium Level 8.2L, Aspartate Amino Transf (AST/SGOT) 17, Alanine Aminotransferase (ALT/SGPT) 32, Alkaline Phosphatase 72, Total Bilirubin 0.3, Total Protein 4.7L, Albumin 2.0L, Magnesium Level 2.3, Albumin/Globulin Ratio 0.74L CBC/BMP Laboratory Tests 11/27/16 05:01 Red Blood Count 4.17, Mean Corpuscular Volume 84.5, Mean Corpuscular Hemoglobin 28.7, Mean Corpuscular Hemoglobin Concent 33.9, Red Cell Distribution Width 14.5 , Neutrophils (%) (Auto) 72.8 H, Lymphocytes (%) (Auto) 21.5 L, Monocytes (%) ( Auto) 4.4, Eosinophils (%) (Auto) 0.1, Basophils (%) (Auto) 0.4, Neutrophils # ( Auto) 4.5, Lymphocytes # (Auto) 1.3 L, Monocytes # (Auto) 0.3, Eosinophils # ( Auto) 0.0, Basophils # (Auto) 0.0, Calcium Level 8.2 L, Aspartate Amino Transf ( AST/SGOT) 17, Alanine Aminotransferase (ALT/SGPT) 32, Alkaline Phosphatase 72, Total Bilirubin 0.3, Total Protein 4.7 L, Albumin 2.0 L Microbiology Microbiology 11/22/16 Blood Culture - Preliminary, Resulted No Growth after 72 hours. All specime... 11/22/16 Blood Culture - Preliminary, Resulted No Growth after 72 hours. All specime... Juna Saldana Nov 27, 2016 08:14
[2016-11-27] MEDS: SENOKOT S TAB PO SCH ×2 (08:33→20:54)
[2016-11-27] MEDS: DOCUSATE SODIUM 100 MG CAP PO SCH ×2 (08:33→20:53)
[2016-11-27] MEDS: guaiFENesin ER 600 MG TAB PO SCH ×2 (08:34→20:53)
[2016-11-27] MEDS: PANTOPRAZOLE 40MG TAB (PROTONIX) PO SCH (08:34)
[2016-11-27] MEDS: APIXABAN 5 MG TAB (ELIQUIS) PO SCH ×2 (08:34→20:53)
[2016-11-27] MEDS: METOPROLOL TART 25 MG TABLET PO SCH ×2 (08:34→20:53)
[2016-11-27] MEDS: FUROSEMIDE 20 MG TAB PO SCH (08:35)
[2016-11-27] MEDS: NYSTATIN 500,000 U/5 ML SUSP UDC SS SCH ×4 (08:36→20:54)
[2016-11-27] MEDS: HumaLOG INSULIN (NovoLOG) PER UNIT SC SCH ×4 (08:36→20:57)
[2016-11-27] MEDS: FLUTICASONE PROP 0.05% NASAL SPRAY 16 GM (FLONASE) SCH (08:37)
[2016-11-27] MEDS: LEVEMIR (INSULIN DETEMIR) 1 UNITS/0.01ML SC SCH (08:37)
[2016-11-27] MEDS: TOBRAMYCIN SULF 100 MG in D5W 50 ML IV SCH (12:22)
[2016-11-27] MEDS ORDERED: TOBR1NEB INH (18:59)
[2016-11-27] MEDS ORDERED: METOPROLOL 5 MG/5 ML VIAL As Ordered ONE (22:12)
[2016-11-27] MEDS: METOPROLOL 5 MG/5 ML VIAL IV SCH ×3 (22:18→22:25)
[2016-11-28] MEDS: cefTAZidime 1 GM in D5W MINI-BAG PLUS 100 ML IV SCH ×3 (00:12→17:30)
[2016-11-28] MEDS: IPRATROPIUM 0.5MG/ALBUTEROL 2.5MG INH SOL UD 3ML (DUONEB)(J7620) NEB SCH ×4 (02:00→20:21)
[2016-11-28 04:00] VITALS: BP 130/75
[2016-11-28] MEDS: methylPREDNISolone INJ 40 MG/1 ML VIAL (J2920) IV SCH ×2 (04:11→17:29)
[2016-11-28] MEDS: LEVOTHYROXINE 100MCG TABLET (0.1MG) PO SCH (05:28)
[2016-11-28 05:56] LABS: BASO % 0.3 % (0.0-1.0); LARGE UNSTAINED CELL # 0.1 K/mm3 (0.0-0.4); LARGE UNSTAINED CELL % 0.8 % (0.0-4.0); LYMPH # 1.3 K/mm3 (1.5-4.5); LYMPH % 19.8 % (24.0-44.0); MEAN CORPUSCULAR HEMOGLOBIN 28.9 pg (27.0-33.0); MEAN CORPUSCULAR HGB CONC 34.1 g/dl (32.0-36.5); MEAN CORPUSCULAR VOLUME 84.7 fl (80.0-96.0); MONO # 0.4 K/mm3 (0.0-0.8); MONO % 5.6 % (0.0-5.0); NEUTROPHILS # 4.6 K/mm3 (1.8-7.7); NEUTROPHILS % 73.4 % (36.0-66.0); PLATELET COUNT, AUTOMATED 215 k/mm3 (150-450); RED CELL DISTRIBUTION WIDTH 14.9 % (11.5-14.5); WHITE BLOOD COUNT 6.3 K/mm3 (4.0-10.0)
[2016-11-28] MEDS ORDERED: D5W IV SCH (06:00)
[2016-11-28] MEDS ORDERED: TOBRAMYCIN SULF IV SCH (06:00)
[2016-11-28 06:01] LABS: ALBUMIN 1.9 GM/DL (3.2-5.2); ALBUMIN/GLOBULIN RATIO 0.66 (1.00-1.93); BILIRUBIN,TOTAL 0.3 MG/DL (0.2-1.0); CALCIUM LEVEL 8.2 MG/DL (8.8-10.2); CREATININE FOR GFR 0.98 MG/DL (0.55-1.02); GLOMERULAR FILTRATION RATE 59.9 (>45); MAGNESIUM LEVEL 2.1 MG/DL (1.8-2.4); POTASSIUM SERUM 3.3 MEQ/L (3.5-5.1); TOTAL PROTEIN 4.8 GM/DL (6.4-8.2)
[2016-11-28 07:20] VITALS: BP 130/80
[2016-11-28] MEDS ORDERED: POTASSIUM CHLORIDE 10 MEQ SR TABLET PO ONE (07:30)
--- NOTE | 2016-11-28 07:34 | IPNPDOC ---
Subjective Date Seen The patient was seen on 11/28/16. Subjective Chief Complaint/HPI The patient is a 71-year-old female admitted with a reason for visit of Hypoxia. Events since last encounter Pt reports she had episode of coughing/SOB last last night. Nursing reports pt had episode of Afib with RVR last night. Currently back in SR. Pt states she is feeling better this morning. She states her breathing is better. Denies CP. Denies abd pain. Constitutional: Denies: Chills, Fever Pulmonary: Reports: Dyspnea Cardiovascular: Denies: Chest Pain Gastrointestinal: Denies: Nausea, Vomiting, Abdominal Pain Objective Physical Examination General Exam: Positive: Alert, No Acute Distress ENT Exam: Positive: Mucous membr. moist/pink Chest Exam: Positive: Diminished (lung sounds are diminished, although pretty clear), Other, Negative: Rales, Rhonchi, Wheezing Heart Exam: Positive: Rate Normal, Normal S1, Normal S2 Abdomen Exam: Positive: Normal bowel sounds, Soft, Negative: Tenderness Extremity Exam: Negative: Edema Psych Exam: Positive: Mental status NL, Mood NL Assessment /Plan Problems (1) Bronchiectasis Status: Acute Problem Text: 11/28 - Continue Solumedrol 40 mg IV BID. Patient states had been on a pred taper at home prior to admission. Continue ceftaz, tobra, and duonebs. 11/27 - Continue Solumedrol 40 mg IV BID; patient states home dose is 20-40 mg PO daily. Continue ceftaz, tobra, and duonebs. 11/26 - Continue to wean solumedrol today to 40 mg IV BID; patient states home dose is 20-40 mg PO daily. Continue ceftaz, tobra, and duonebs. 11/24 - Dr Cannon has seen the pt for Pulm, has changed IV antibiotics 11/23 to Ceftaz and tobra, rec considing Tobra inhaled if needed as an outpt D2 ceftaz/tobra 11/22 CT chest: Evaluation of the lung medina shows improved patchy air space disease with essentially unchanged cylindrical bronchiectasis with basilar predominance 11/19 SCX: moderate S. marcescnes/P. aeruginosa-both sens to ceftaz/tobra (2) Acute on chronic systolic (congestive) heart failure Status: Acute Discussed With: Patient Problem Specific Plan: Monitor Clinically, Repeat Labs Problem Text: 11/28 - Lasix was increased to 40 mg. K low at 3.3. Will give supp KCl. 11/27 - On home dose of Lasix 20 mg daily. K low at 3. Will give KCl 40 meq x 1 dose. 11/26 - no lower extremity edema today; wean lasix to home dose of 20 mg daily - Potassium low, likely due to furosemide - will give IV K-run today and recheck tomorrow. 11/24 - Pt sounds wet on exam with crackles at the bases, she also has increase BLE edema c/w yesterday. Start Laxix 40 mg IV BID, monitor closely. Given her recent A fib and rapid rate I think this has contributed. ECHO 01/06 EF 30-35% (3) Atrial fibrillation with RVR Status: Chronic Response to Treatment: Stable Discussed With: Nurse, Patient Problem Specific Plan: Monitor Clinically, Repeat Labs Problem Text: 11/28 - AFib with RVR last night. Pt received 1 dose IV Lopressor. On Lopressor 75 mg PO BID. 11/27 - Nurse reports short run of Afib during night. Resolved and currently in SR. On Metoprolol 75 mg BID. 11/26 - Afib with RVR last night, responded well to further titration of metoprolol to 75 mg PO BID and has been rate-controlled since yesterday evening 11/24 - ~10 minute AF c RVR c spontaneous conversion; therefore, metoprolol to 50 BID 11/23/16 two episodes of A fib with RVR last night resulting in 3 doses total of IV Lopressor. She is on Eliquis BID and metoprolol tartrate 25 BID, will continue this for now. Cont to monitor. LIkely her compromised resp status and the use of B2 agonist contributed to her conversion. She follows with Dr Kulkarni as an outpt. (4) Acute and chronic respiratory failure Status: Acute Response to Treatment: Stable Discussed With: Nurse, Glove Parts Inspector, Patient Problem Specific Plan: Monitor Clinically, Repeat Labs Problem Text: Resp status improved with current regimen, see bronchiectasis above (5) DEVEN on CPAP Status: Chronic Response to Treatment: Stable Problem Specific Plan: Monitor Clinically (6) Pulmonary fibrosis Status: Chronic Response to Treatment: Stable Problem Specific Plan: Monitor Clinically Problem Text: See above. Follows with Dr Slade as outpt. Likely d/t Amiodorone toxicity. (7) HTN (hypertension) Status: Chronic Problem Specific Plan: Monitor Clinically (8) CKD (chronic kidney disease) stage 3, GFR 30-59 ml/min Status: Chronic Response to Treatment: Stable Problem Text: at baseline cr 1.2-1.3 (9) T2DM (type 2 diabetes mellitus) Status: Chronic Response to Treatment: Worse Problem Text: Blood glucose has been persistently elevated, likely due to steroids - Levemir increased from HD of 52 units qAM, to 60 U upon admission, and then to 70 U on 11/26/16 Plan/VTE VTE Prophylaxis Ordered?: Yes (apixaban) VS, I&O, 24H, Fishbone Vital Signs/I&O Vital Signs Date Time Temp Pulse Resp B/P (MAP) Pulse Ox O2 Delivery O2 Flow Rate FiO2 11/28/16 04:00 96.9 69 18 130/75 (93) 99 NIPPV (BIPAP/CPAP) 11/26/16 02:29 3.0 I&O- Last 24 Hours up to 6 AM 11/28/16 06:00 Intake Total 1832.5 ml Output Total 800 ml Balance 1032.5 ml Laboratory Data 24H LABS Laboratory Tests 2 11/27/16 11:10: Bedside Glucose (Misc Panel) 155H 11/27/16 12:54: Tobramycin Level Peak 4.6 11/27/16 16:55: Bedside Glucose (Misc Panel) 277H 11/27/16 20:52: Bedside Glucose (Misc Panel) 347H 11/28/16 05:02: Anion Gap 6L, Glomerular Filtration Rate 59.9, Blood Urea Nitrogen 27H, Creatinine 0.98, Sodium Level 141, Potassium Level 3.3L, Chloride Level 103, Carbon Dioxide Level 32, Calcium Level 8.2L, Aspartate Amino Transf (AST/SGOT) 27, Alanine Aminotransferase (ALT/SGPT) 47, Alkaline Phosphatase 77, Total Bilirubin 0.3, Total Protein 4.8L, Albumin 1.9L, Magnesium Level 2.1, Albumin/ Globulin Ratio 0.66L 11/28/16 05:03: White Blood Count 6.3, Red Blood Count 4.06, Hemoglobin 11.7L, Hematocrit 34.4L , Mean Corpuscular Volume 84.7, Mean Corpuscular Hemoglobin 28.9, Mean Corpuscular Hemoglobin Concent 34.1, Red Cell Distribution Width 14.9H, Platelet Count 215, Neutrophils (%) (Auto) 73.4H, Lymphocytes (%) (Auto) 19.8L, Monocytes (%) (Auto) 5.6H, Eosinophils (%) (Auto) 0.0, Basophils (%) (Auto) 0.3 , Neutrophils # (Auto) 4.6, Lymphocytes # (Auto) 1.3L, Monocytes # (Auto) 0.4, Eosinophils # (Auto) 0.0, Basophils # (Auto) 0.0, Large Unclassified Cells % 0.8 , Large Unclassified Cells # 0.1 CBC/BMP Laboratory Tests 11/28/16 05:02 Calcium Level 8.2 L, Aspartate Amino Transf (AST/SGOT) 27, Alanine Aminotransferase (ALT/SGPT) 47, Alkaline Phosphatase 77, Total Bilirubin 0.3, Total Protein 4.8 L, Albumin 1.9 L 11/28/16 05:03 Red Blood Count 4.06, Mean Corpuscular Volume 84.7, Mean Corpuscular Hemoglobin 28.9, Mean Corpuscular Hemoglobin Concent 34.1, Red Cell Distribution Width 14.9 H, Neutrophils (%) (Auto) 73.4 H, Lymphocytes (%) (Auto) 19.8 L, Monocytes (%) (Auto) 5.6 H, Eosinophils (%) (Auto) 0.0, Basophils (%) (Auto) 0.3, Neutrophils # (Auto) 4.6, Lymphocytes # (Auto) 1.3 L, Monocytes # (Auto) 0.4, Eosinophils # (Auto) 0.0, Basophils # (Auto) 0.0 Microbiology Microbiology 11/22/16 Blood Culture - Final, Complete NO GROWTH AFTER 5 DAYS 11/22/16 Blood Culture - Final, Complete NO GROWTH AFTER 5 DAYS Juan Saldana RPA-C Nov 28, 2016 07:34
[2016-11-28] MEDS: DOCUSATE SODIUM 100 MG CAP PO SCH ×2 (09:00→21:00)
[2016-11-28] MEDS: SENOKOT S TAB PO SCH ×2 (09:00→21:00)
[2016-11-28] MEDS: APIXABAN 5 MG TAB (ELIQUIS) PO SCH ×2 (09:33→21:45)
[2016-11-28] MEDS: NYSTATIN 500,000 U/5 ML SUSP UDC SS SCH ×4 (09:33→21:40)
[2016-11-28] MEDS: FUROSEMIDE 40 MG TAB PO SCH (09:34)
[2016-11-28] MEDS: guaiFENesin ER 600 MG TAB PO SCH ×2 (09:34→21:40)
[2016-11-28] MEDS: PANTOPRAZOLE 40MG TAB (PROTONIX) PO SCH (09:34)
[2016-11-28] MEDS: METOPROLOL TART 25 MG TABLET PO SCH (09:35)
[2016-11-28] MEDS: HumaLOG INSULIN (NovoLOG) PER UNIT SC SCH ×4 (09:36→21:45)
[2016-11-28] MEDS: LEVEMIR (INSULIN DETEMIR) 1 UNITS/0.01ML SC SCH (09:37)
[2016-11-28] MEDS: FLUTICASONE PROP 0.05% NASAL SPRAY 16 GM (FLONASE) SCH (09:38)
[2016-11-28 12:00] VITALS: BP 148/68
[2016-11-28] MEDS: TOBRAMYCIN SULF IV SCH (12:53)
[2016-11-28] MEDS: D5W IV SCH (12:53)
[2016-11-28 16:00] VITALS: BP 140/60
[2016-11-28 20:07] VITALS: BP 138/84
[2016-11-28] MEDS: METOPROLOL TARTRATE 100 MG TAB PO SCH (21:40)
[2016-11-29] VITALS (7 sets, daily range): BP systolic 150–187; BP diastolic 70–97
[2016-11-29] MEDS: cefTAZidime 1 GM in D5W MINI-BAG PLUS 100 ML IV SCH ×2 (00:39→09:01)
[2016-11-29] MEDS: IPRATROPIUM 0.5MG/ALBUTEROL 2.5MG INH SOL UD 3ML (DUONEB)(J7620) NEB SCH ×3 (01:38→14:05)
[2016-11-29] MEDS: methylPREDNISolone INJ 40 MG/1 ML VIAL (J2920) IV SCH (04:24)
[2016-11-29 05:28] LABS: BASO % 0.2 % (0.0-1.0); EOS % 0.1 % (0.0-3.0); LARGE UNSTAINED CELL % 0.5 % (0.0-4.0); LYMPH # 1.2 K/mm3 (1.5-4.5); LYMPH % 15.9 % (24.0-44.0); MEAN CORPUSCULAR HEMOGLOBIN 28.7 pg (27.0-33.0); MEAN CORPUSCULAR HGB CONC 33.6 g/dl (32.0-36.5); MEAN CORPUSCULAR VOLUME 85.3 fl (80.0-96.0); MONO # 0.4 K/mm3 (0.0-0.8); MONO % 5.3 % (0.0-5.0); NEUTROPHILS # 5.9 K/mm3 (1.8-7.7); NEUTROPHILS % 77.9 % (36.0-66.0); PLATELET COUNT, AUTOMATED 222 k/mm3 (150-450); RED CELL DISTRIBUTION WIDTH 14.9 % (11.5-14.5); WHITE BLOOD COUNT 7.6 K/mm3 (4.0-10.0)
[2016-11-29 05:39] LABS: ALBUMIN 2.1 GM/DL (3.2-5.2); ALBUMIN/GLOBULIN RATIO 0.72 (1.00-1.93); BILIRUBIN,TOTAL 0.4 MG/DL (0.2-1.0); CALCIUM LEVEL 8.3 MG/DL (8.8-10.2); CREATININE FOR GFR 1.01 MG/DL (0.55-1.02); GLOMERULAR FILTRATION RATE 57.9 (>45); MAGNESIUM LEVEL 2.2 MG/DL (1.8-2.4); POTASSIUM SERUM 3.6 MEQ/L (3.5-5.1)
[2016-11-29] MEDS: LEVOTHYROXINE 100MCG TABLET (0.1MG) PO SCH (05:54)
--- NOTE | 2016-11-29 07:31 | IPNPDOC ---
Subjective Date Seen The patient was seen on 11/29/16. Subjective Chief Complaint/HPI The patient is a 71-year-old female admitted with a reason for visit of Hypoxia. Events since last encounter Pt states she had a good night last night. Denies CP, Palp, pain. States breathing improved. Constitutional: Denies: Chills, Fever Pulmonary: Denies: Dyspnea Cardiovascular: Denies: Chest Pain, Palpitations Gastrointestinal: Denies: Abdominal Pain Objective Physical Examination General Exam: Positive: Alert, No Acute Distress ENT Exam: Positive: Mucous membr. moist/pink Chest Exam: Positive: Diminished (lung sounds are diminished, although pretty clear), Other, Negative: Rales, Rhonchi, Wheezing Heart Exam: Positive: Rate Normal, Normal S1, Normal S2 Abdomen Exam: Positive: Normal bowel sounds, Soft, Negative: Tenderness Extremity Exam: Negative: Edema Psych Exam: Positive: Mental status NL, Mood NL Assessment /Plan Problems (1) Bronchiectasis Status: Acute Problem Text: 11/29 - On Solumedrol 40 mg IV BID. Patient states had been on a pred taper at home prior to admission. Continue ceftaz, tobra, and duonebs. 11/28 - Continue Solumedrol 40 mg IV BID. Patient states had been on a pred taper at home prior to admission. Continue ceftaz, tobra, and duonebs. 11/27 - Continue Solumedrol 40 mg IV BID; patient states home dose is 20-40 mg PO daily. Continue ceftaz, tobra, and duonebs. 11/26 - Continue to wean solumedrol today to 40 mg IV BID; patient states home dose is 20-40 mg PO daily. Continue ceftaz, tobra, and duonebs. 11/24 - Dr Cannon has seen the pt for Pulm, has changed IV antibiotics 11/23 to Ceftaz and tobra, rec considing Tobra inhaled if needed as an outpt D2 ceftaz/tobra 11/22 CT chest: Evaluation of the lung medina shows improved patchy air space disease with essentially unchanged cylindrical bronchiectasis with basilar predominance 11/19 SCX: moderate S. marcescnes/P. aeruginosa-both sens to ceftaz/tobra (2) Acute on chronic systolic (congestive) heart failure Status: Acute Discussed With: Patient Problem Specific Plan: Monitor Clinically, Repeat Labs Problem Text: 11/29 - On Lasix 40 mg PO daily. On KCl 20 MEQ daily. K is 3.6. 11/28 - Lasix was increased to 40 mg. K low at 3.3. Will give supp KCl. 11/27 - On home dose of Lasix 20 mg daily. K low at 3. Will give KCl 40 meq x 1 dose. 11/26 - no lower extremity edema today; wean lasix to home dose of 20 mg daily - Potassium low, likely due to furosemide - will give IV K-run today and recheck tomorrow. 11/24 - Pt sounds wet on exam with crackles at the bases, she also has increase BLE edema c/w yesterday. Start Laxix 40 mg IV BID, monitor closely. Given her recent A fib and rapid rate I think this has contributed. ECHO 01/06 EF 30-35% (3) Atrial fibrillation with RVR Status: Chronic Response to Treatment: Stable Discussed With: Nurse, Patient Problem Specific Plan: Monitor Clinically, Repeat Labs Problem Text: 11/29 - Lopressor 100 mg PO BID. No further episodes of Afib since previous noted. 11/28 - AFib with RVR last night. Pt received 1 dose IV Lopressor. On Lopressor 75 mg PO BID. 11/27 - Nurse reports short run of Afib during night. Resolved and currently in SR. On Metoprolol 75 mg BID. 11/26 - Afib with RVR last night, responded well to further titration of metoprolol to 75 mg PO BID and has been rate-controlled since yesterday evening 11/24 - ~10 minute AF c RVR c spontaneous conversion; therefore, metoprolol to 50 BID 11/23/16 two episodes of A fib with RVR last night resulting in 3 doses total of IV Lopressor. She is on Eliquis BID and metoprolol tartrate 25 BID, will continue this for now. Cont to monitor. LIkely her compromised resp status and the use of B2 agonist contributed to her conversion. She follows with Dr Kulkarni as an outpt. (4) Acute and chronic respiratory failure Status: Acute Response to Treatment: Stable Discussed With: Nurse, Curing Pickling Packer, Patient Problem Specific Plan: Monitor Clinically, Repeat Labs Problem Text: Resp status improved with current regimen, see bronchiectasis above (5) DEVEN on CPAP Status: Chronic Response to Treatment: Stable Problem Specific Plan: Monitor Clinically (6) Pulmonary fibrosis Status: Chronic Response to Treatment: Stable Problem Specific Plan: Monitor Clinically Problem Text: See above. Follows with Dr Slade as outpt. Likely d/t Amiodorone toxicity. (7) HTN (hypertension) Status: Chronic Problem Specific Plan: Monitor Clinically (8) CKD (chronic kidney disease) stage 3, GFR 30-59 ml/min Status: Chronic Response to Treatment: Stable Problem Text: at baseline cr 1.2-1.3 (9) T2DM (type 2 diabetes mellitus) Status: Chronic Response to Treatment: Worse Problem Text: Blood glucose has been persistently elevated, likely due to steroids - Levemir increased from HD of 52 units qAM, to 60 U upon admission, and then to 70 U on 11/26/16 Plan/VTE VTE Prophylaxis Ordered?: Yes (apixaban) VS, I&O, 24H, Fishbone Vital Signs/I&O Vital Signs Date Time Temp Pulse Resp B/P (MAP) Pulse Ox O2 Delivery O2 Flow Rate FiO2 11/29/16 06:24 67 187/97 11/29/16 04:28 97.2 20 95 Room Air 11/26/16 02:29 3.0 I&O- Last 24 Hours up to 6 AM 11/29/16 06:00 Intake Total 1350 ml Output Total 2950 ml Balance -1600 ml Laboratory Data 24H LABS Laboratory Tests 2 11/28/16 11:59: Bedside Glucose (Misc Panel) 214H 11/28/16 17:20: Bedside Glucose (Misc Panel) 166H 11/28/16 21:42: Bedside Glucose (Misc Panel) 268H 11/29/16 04:54: Anion Gap 11, Glomerular Filtration Rate 57.9, Blood Urea Nitrogen 25H, Creatinine 1.01, Sodium Level 141, Potassium Level 3.6, Chloride Level 101, Carbon Dioxide Level 29, Calcium Level 8.3L, Aspartate Amino Transf (AST/SGOT) 17, Alanine Aminotransferase (ALT/SGPT) 43, Alkaline Phosphatase 83, Total Bilirubin 0.4, Total Protein 5.0L, Albumin 2.1L, Magnesium Level 2.2, Albumin/ Globulin Ratio 0.72L 11/29/16 04:55: White Blood Count 7.6, Red Blood Count 4.22, Hemoglobin 12.1, Hematocrit 36.0, Mean Corpuscular Volume 85.3, Mean Corpuscular Hemoglobin 28.7, Mean Corpuscular Hemoglobin Concent 33.6, Red Cell Distribution Width 14.9H, Platelet Count 222, Neutrophils (%) (Auto) 77.9H, Lymphocytes (%) (Auto) 15.9L, Monocytes (%) (Auto) 5.3H, Eosinophils (%) (Auto) 0.1, Basophils (%) (Auto) 0.2 , Neutrophils # (Auto) 5.9, Lymphocytes # (Auto) 1.2L, Monocytes # (Auto) 0.4, Eosinophils # (Auto) 0.0, Basophils # (Auto) 0.0, Large Unclassified Cells % 0.5 , Large Unclassified Cells # 0.0 CBC/BMP Laboratory Tests 11/29/16 04:54 Calcium Level 8.3 L, Aspartate Amino Transf (AST/SGOT) 17, Alanine Aminotransferase (ALT/SGPT) 43, Alkaline Phosphatase 83, Total Bilirubin 0.4, Total Protein 5.0 L, Albumin 2.1 L 11/29/16 04:55 Red Blood Count 4.22, Mean Corpuscular Volume 85.3, Mean Corpuscular Hemoglobin 28.7, Mean Corpuscular Hemoglobin Concent 33.6, Red Cell Distribution Width 14.9 H, Neutrophils (%) (Auto) 77.9 H, Lymphocytes (%) (Auto) 15.9 L, Monocytes (%) (Auto) 5.3 H, Eosinophils (%) (Auto) 0.1, Basophils (%) (Auto) 0.2, Neutrophils # (Auto) 5.9, Lymphocytes # (Auto) 1.2 L, Monocytes # (Auto) 0.4, Eosinophils # (Auto) 0.0, Basophils # (Auto) 0.0 Microbiology Microbiology 11/22/16 Blood Culture - Final, Complete NO GROWTH AFTER 5 DAYS 11/22/16 Blood Culture - Final, Complete NO GROWTH AFTER 5 DAYS Juan Saldana Nov 29, 2016 07:31
[2016-11-29] MEDS: DOCUSATE SODIUM 100 MG CAP PO SCH (08:47)
[2016-11-29] MEDS: SENOKOT S TAB PO SCH (08:47)
[2016-11-29] MEDS ORDERED: POTASSIUM CHLORIDE 10 MEQ SR TABLET PO SCH (09:00)
[2016-11-29] MEDS: NYSTATIN 500,000 U/5 ML SUSP UDC SS SCH ×2 (09:01→12:34)
[2016-11-29] MEDS: FLUTICASONE PROP 0.05% NASAL SPRAY 16 GM (FLONASE) SCH (09:01)
[2016-11-29] MEDS: guaiFENesin ER 600 MG TAB PO SCH (09:02)
[2016-11-29] MEDS: FUROSEMIDE 40 MG TAB PO SCH (09:03)
[2016-11-29] MEDS: APIXABAN 5 MG TAB (ELIQUIS) PO SCH (09:03)
[2016-11-29] MEDS: PANTOPRAZOLE 40MG TAB (PROTONIX) PO SCH (09:03)
[2016-11-29] MEDS: METOPROLOL TARTRATE 100 MG TAB PO SCH (09:04)
[2016-11-29] MEDS: LEVEMIR (INSULIN DETEMIR) 1 UNITS/0.01ML SC SCH (09:05)
[2016-11-29] MEDS: HumaLOG INSULIN (NovoLOG) PER UNIT SC SCH ×2 (09:06→12:35)
[2016-11-29] MEDS: D5W IV SCH (12:34)
[2016-11-29] MEDS: TOBRAMYCIN SULF IV SCH (12:34)
[2016-11-29] MEDS ORDERED: PRED10TA2 PO (17:23)
[2016-11-29] MEDS ORDERED: LOPR1TAB7 PO (17:23)
[2016-11-29] MEDS ORDERED: POTA10CA PO (17:23)
[2016-11-29] MEDS ORDERED: CEFD1CAP8 PO (17:23)
[2016-11-29] MEDS ORDERED: FURO40TA2 PO (17:23)
[2016-11-29] MEDS ORDERED: GENT80VL NEB (17:23)
--- NOTE | 2016-12-05 22:09 | DS.PDOC ---
Discharge Summary General Date of Admission Nov 22, 2016 at 11:57 Date of Discharge November 29, 2016 Attending Physician: NOHELIA DUFFY DO Specialist/Consultants Involve: Albaro Cannon Discharge Summary PROCEDURES PERFORMED DURING STAY: [None]. ADMITTING DIAGNOSES: 1. Pulmonary fibrosis with exacerbation. 2. Hypoxia. 3. Serratia marcescens and Pseudomonas aeruginosa 4. CHF 5. Diabetes 6. atrial fibrillation 7. hypertension 8. hypothyroidism 9. hyperlipidemia 10. GERD 11. macular degeneration 12. obstructive sleep apnea DISCHARGE DIAGNOSES: 1. bronchiectasis 2. acute on chronic systolic heart failure 3. atrial fibrillation with RVR 4. acute on chronic respiratory failure 5. DEVEN on CPAP 6. pulmonary fibrosis 7. hypertension 8. CKD stage 3 9. diabetes mellitus type 2 10. hyperlipidemia COMPLICATIONS/CHIEF COMPLAINT: Hypoxia. HISTORY OF PRESENT ILLNESS: This is a 71-year-old female with a significant medical history for multiple hospitalizations secondary to pulmonary fibrosis in the past. Over the last two weeks the patient has been having continued episodes of cough with shortness of breath, which initially improved with aggressive outpatient diuresis increasing her furosemide dosing from 20 mg by mouth daily to 40 mg by mouth twice a day. The patient has had a significant weight drop and improvement in her symptoms. However, continued with a cough. She was provided Mucinex as needed for the cough with minimal relief. The patient presented herself to the emergency room both on November 14 and then again on November 17 for complaints of cough and severe fatigue. Work up including multiple tests, chest x-rays and labs, all of which proved negative. She did have extenuating interstitial markings noted on the 11/17 chest x-ray and was sent home on increased dosing of methylprednisolone and guaifenesin with codeine. Today, the patient presents to our office with vomiting, nausea, abdominal discomfort without diarrhea and worsening cough. The patient's daughter stated had difficulty getting the patient out of bed yesterday. She had some slurred speech and noted that her blood sugar was in the 60s. This did improve with giving her some juice and she improved up to 219 at that point. The patient had her own oxygen saturation monitor at home and noted that she was 84% on 3 liters with exertion today, also noted she was in the low 80s on rest on room air today as well. HOSPITAL COURSE: Patient was admitted to [facility]. She was diuresed, and her electrolytes were replaced. She was treated with ceftazidime and tobramycin upon the recommendations of Dr. Cannon, and did clinically improve. She was treated with Solumedrol as well. She had trouble with atrial fibrillation with RVR during her hospitalization, often at night. Her metoprolol was increased slowly, and by the end of her hospitalization no longer required IV beta zuly to manage the RVR. She was felt to be stable for hospital discharge on 11/29/2016, and was discharged home. As we were unable to discharge the patient on nebulized tobramcyin (as per the instructions of Dr. Cannon), patient was DCed with nebulized gentamicin. DISCHARGE MEDICATIONS: Please see below. ALLERGIES: Please see below. PHYSICAL EXAMINATION ON DISCHARGE: VITAL SIGNS: Please see below. GENERAL: elderly female, NAD HEENT: MMM CARDIOVASCULAR EXAMINATION: regular rate and rhythm, no M/R/G RESPIRATORY EXAMINATION: fibrotic bibasilar crackles ABDOMINAL EXAMINATION: soft, nontender, nondistended EXTREMITIES: no edema SKIN: clean, dry, intact NEUROLOGICAL EXAMINATION: nonfocal PSYCHIATRIC EXAMINATION: normal mood and affect LABORATORY DATA: Please see below. IMAGING: CT chest without contrast on 11/22 shows: All prior chest CTs were reviewed, the latest of which is dated 08/06/2016 which showed air spaces disease worsening from prior exams. This limited noncontrast enhanced examination shows no change in the mediastinum of pulmonary kailyn. No pleural or pericardial effusions have developed. There is no change in the imaged upper abdomen or imaged osseous structures. Evaluation of the lung medina shows improved patchy air space disease with essentially unchanged cylindrical bronchiectasis with basilar predominance. No new abnormal opacities have developed. The chronic fibrotic changes could obscure significant nodule or spiculated parenchymal lesion. PROGNOSIS: fair ACTIVITY: [As tolerated]. DIET: consistent carb DISCHARGE PLAN: home DISPOSITION: 01 Home, Self-Care. DISCHARGE INSTRUCTIONS: 1. take all medications as prescribed 2. contact the office with any problems or concerns DISCHARGE CONDITION: [Stable]. TIME SPENT ON DISCHARGE: Greater than 15 minutes. Vital Signs/I&Os Vital Signs Date Time Temp Pulse Resp B/P (MAP) Pulse Ox O2 Delivery O2 Flow Rate FiO2 11/29/16 16:00 97.0 70 20 150/70 (96) 96 Room Air Discharge Medications Scheduled (Flonase Allergy Relief) 50 Mcg/Act Spr, 2 SPRAYS NA DAILY, (Reported) Apixaban Base (Eliquis) 5 Mg Tab, 5 MG PO BID, (Reported) Atorvastatin Calcium (Atorvastatin Calcium) 40 Mg Tab, 40 MG PO QHS, (Reported) Cefdinir (Cefdinir) 300 Mg Cap, 300 MG PO BID Furosemide (Furosemide) 40 Mg Tab, 40 MG PO DAILY Gentamicin Sulfate (Gentamicin Sulfate) 80 Mg/2 Ml Soln, 80 MG NEB BID with 1 ml of saline Glipizide (Glipizide) 5 Mg Tab, 10 MG PO BID, (Reported) Insulin Glargine (Lantus) 1 Units/0.01 Ml Susp, 52 UNITS SC DAILY, (Reported) Insulin Human Lispro (Humalog) 1 Units/0.01 Ml Inj, SC ACHS, (Reported) Per Sliding Scale Levothyroxine Sodium (Levoxyl) 100 Mcg Tab, 100 MCG PO DAILY, (Reported) Metoprolol Tartrate (Lopressor) 100 Mg Tab, 100 MG PO BID Multivitamins *[facility] STOCKED* (Thera M Plus *[facility] STOCKED*) 1 Tab Tab, 1 TAB PO DAILY, (Reported) Omeprazole (Omeprazole) 40 Mg Cap, 40 MG PO DAILY, (Reported) Potassium Chloride (Klor-Con M10) 10 Meq Tabcr, 20 MEQ PO DAILY Prednisone (Prednisone) 10 Mg Tab, 10 MG PO TAPER Take 5 tabs/day x3 days, then 4 tabs/day x3 days, then 3 tabs/day x3 days, then 2 tabs/day x3 days,then 1 tab/day x3 days Scheduled PRN Benzonatate (Benzonatate) 100 Mg Cap, 200 MG PO Q8H PRN for COUGH, (Reported) Guaifenesin/Codeine (Guaifenesin/Codeine 100-10 mg/5Ml) 5 Ml Syrp, 5 ML PO QID PRN for COUGH, (Reported) Ipratropium [place] (Ipratropium [place]) 0.5 Mg/2.5 Ml Soln, 0.5 MG INH Q8H PRN for SHORTNESS OF BREATH, (Reported) MIX WITH XOPENEX Levalbuterol Hydrochloride (Xopenex Concentrate) 1.25 Mg/0.5 Ml Neb, 1.25 MG INH Q8H PRN for SHORTNESS OF BREATH, (Reported) MIX WITH IPRATROPIUM Allergies Coded Allergies: Sitagliptin (Verified Allergy, Intermediate, RASH, 11/14/16) Latex (Verified Adverse Reaction, Intermediate, RISK, 11/14/16) Lisinopril (Unverified Adverse Reaction, Mild, Cough, 11/14/16) NOHELIA DUFFY DO Dec 05, 2016 22:09
== END 2016-11-29 18:03 | disposition home or self-care (01) | DRG 190 ==
LOC: M PCU 11:57
PROVIDERS: ADMIT Family Medicine; ATTEND Family Medicine
DX: J47.9 Bronchiectasis, uncomplicated (principal); J96.20 Acute and chronic respiratory failure, unspecified whether with hypoxia or hypercapnia; I50.23 Acute on chronic systolic (congestive) heart failure; I48.92 Unspecified atrial flutter; N18.3 Chronic kidney disease, stage 3 (moderate); G47.33 Obstructive sleep apnea (adult) (pediatric); E11.9 Type 2 diabetes mellitus without complications; E78.5 Hyperlipidemia, unspecified; I48.91 Unspecified atrial fibrillation; K21.9 Gastro-esophageal reflux disease without esophagitis; E03.9 Hypothyroidism, unspecified; J84.10 Pulmonary fibrosis, unspecified; Z79.899 Other long term (current) drug therapy; Z88.8 Allergy status to other drugs, medicaments and biological substances; Z91.040 Latex allergy status; H35.30 Unspecified macular degeneration; J45.909 Unspecified asthma, uncomplicated; B96.5 Pseudomonas (aeruginosa) (mallei) (pseudomallei) as the cause of diseases classified elsewhere; Z79.52 Long term (current) use of systemic steroids

== ENCOUNTER → 2016-12-21 | Outpatient (CLI) | payer MEDICARE ==
[~2016-12-21] MED LIST changes: +CEFD1CAP8 PO; -ENOXAPARIN 40 MG/0.4 ML SYRINGE (J1650) SC SCH; +FLON1SPR; +FURO40TA2 PO; +GENT80VL NEB; +GUAI5ELAC PO; +LEVO100T54 PO; +LOPR1TAB7 PO; +METO100T5 PO; +METO1TAB87 PO; +POTA10CA PO; +POTA20TA PO; +PROC5TA PO; +TOBR1NEB INH
--- NOTE | 2016-12-22 09:16 | REP ---
MAXILLOFACIAL CT WITHOUT CONTRAST: HISTORY: Chronic sinusitis. Mild mucosal thickening is present in the right maxillary and sphenoid sinuses. Minimal mucosal thickening is present in the left maxillary and sphenoid sinuses. The remaining sinuses are clear. Mucosal thickening involves the right ostiomeatal unit. The left ostiomeatal unit is patent. The middle and inferior nasal turbinates are partially paradoxical. There is jesika bullosa of the right middle nasal turbinate. There is minimal deviation of the nasal septum to the left. The cribriform plate, medial fletcher of the orbits and optic canals are intact. The carotid canals form a segment of the posterolateral fletcher of the sphenoid sinus. Minimal mucosal thickening is present in the right mastoid air cells. The patient is status post partial right parotidectomy. IMPRESSION: Sinus mucosal thickening as described above. Signed by Sulaiman Sanches MD 12/22/2016 08:07 A
== END ==
LOC: M RAD 15:25
PROVIDERS: ATTEND Otolaryngology
DX: J32.4 Chronic pansinusitis (principal)

== ENCOUNTER → 2016-12-28 | Outpatient (REF) | payer MEDICARE | LOC: M LAB REF 15:33 | PROVIDERS: ATTEND Internal Medicine Pulmonary Disease | DX: J84.10 Pulmonary fibrosis, unspecified (principal) ==

== ENCOUNTER → 2017-01-16 | Outpatient (REF) | payer MEDICARE | LOC: M SFHCPLAZ 11:12 | PROVIDERS: ATTEND Nurse Practitioner Family | DX: J02.9 Acute pharyngitis, unspecified (principal) ==

== ENCOUNTER 2017-01-30 12:11 | Inpatient (IN) | payer MEDICARE ==
[~2017-01-30] VITALS: Ht 154.9 cm; Wt 93.4 kg
[~2017-01-30 12:11] MED LIST changes: -METO100T5 PO; -POTA20TA PO; -PROC5TA PO
--- NOTE | 2017-01-30 13:30 | REP ---
CT Head without contrast HISTORY: Altered mental status COMPARISON: 05/15/2016 There is no intraparenchymal hemorrhage, acute infarct, mass or midline shift. The ventricular system is normal in appearance. There is no extra cerebral collection. There is no fracture. The visualized sinuses are clear. IMPRESSION: There is no intracranial lesion. Signed by Sulaiman Sanches MD 01/30/2017 01:21 P
--- NOTE | 2017-01-30 13:52 | REP ---
Chest two views HISTORY: Altered mental status Comparison: 11/17/2016 An increase in interstitial markings is present in the lungs consistent with chronic interstitial fibrosis. The cardiac silhouette is enlarged. The pulmonary vasculature is normal in appearance. The bony structure is intact. An [id number] catheter is present. IMPRESSION: 1. Chronic interstitial fibrosis. 2. Cardiomegaly. Signed by Sulaiman Sanches MD 01/30/2017 01:44 P
[2017-01-30] MEDS ORDERED: PROC5TA PO (14:01)
[2017-01-30] MEDS ORDERED: POTA20TA PO (14:01)
[2017-01-30] MEDS ORDERED: METO100T5 PO (14:01)
[2017-01-30] MEDS ORDERED: FURO40TA2 PO (14:01)
[2017-01-30] MEDS ORDERED: PRED10TA2 PO (14:01)
[2017-01-30 14:19] LABS: BASO # 0.1 10^3/uL (0.0-0.2); BASO % 0.3 % (0.0-1.0); EOS % 0.2 % (0.0-3.0); IMMATURE GRANULOCYTE % 2.2 % (0-0); LYMPH # 3.1 10^3/uL (1.5-4.5); LYMPH % 12.3 % (24.0-44.0); MEAN CORPUSCULAR HEMOGLOBIN 28.6 pg (27.0-33.0); MEAN CORPUSCULAR HGB CONC 32.3 g/dl (32.0-36.5); MEAN CORPUSCULAR VOLUME 88.6 fl (80.0-96.0); MONO # 0.9 10^3/uL (0.0-0.8); MONO % 3.5 % (0.0-5.0); NEUTROPHILS # 20.7 10^3/uL (1.8-7.7); NEUTROPHILS % 81.5 % (36.0-66.0); PLATELET COUNT, AUTOMATED 240 10^3/uL (150-450); WHITE BLOOD COUNT 25.4 10^3/uL (4.0-10.0)
[2017-01-30 14:38] LABS: VENOUS BASE EXCESS 0.7 (-2.0-2.0); VENOUS O2 SATURATION 98.4 % (60.0-80.0); VENOUS STANDARD HCO3 25.1 MEQ/L; VENOUS TOTAL CO2 24.7 MEQ/L (24.0-28.0)
[2017-01-30 15:13] LABS: ALBUMIN 2.7 GM/DL (3.2-5.2); ALBUMIN/GLOBULIN RATIO 0.84 (1.00-1.93); ALKALINE PHOSPHATASE 116 U/L (45-117); ALT/SGPT 37 U/L (12-78); ANION GAP 10 MEQ/L (8-16); AST/SGOT 23 U/L (15-37); BILIRUBIN,DIRECT 0.2 MG/DL (0.0-0.2); BILIRUBIN,TOTAL 0.8 MG/DL (0.2-1.0); BLOOD UREA NITROGEN 37 MG/DL (7-18); CALCIUM LEVEL 8.6 MG/DL (8.8-10.2); CARBON DIOXIDE LEVEL 26 MEQ/L (21-32); CHLORIDE LEVEL 104 MEQ/L (98-107); CREATININE FOR GFR 1.69 MG/DL (0.55-1.02); GLOMERULAR FILTRATION RATE 31.9 (>45); GLUCOSE, FASTING 104 MG/DL (80-110); SODIUM LEVEL 140 MEQ/L (136-145); TOTAL PROTEIN 5.9 GM/DL (6.4-8.2)
[2017-01-30 15:18] LABS: POTASSIUM SERUM 5.2 MEQ/L (3.5-5.1)
[2017-01-30] MEDS ORDERED: NS 1,000 ML IV ONE (15:45)
[2017-01-30] MEDS ORDERED: NS 1,000 ML IV SCH (15:45)
[2017-01-30] MEDS ORDERED: VANCOMYCIN HCL 1,000 MG, VIAL MATE ADAPTER 1 EACH in D5W 250 ML IV ONE (16:00)
[2017-01-30] MEDS ORDERED: PIPERACILLIN/TAZOBACTAM SOD 3.375 GM in D5W 50 ML IV ONE (16:00)
[2017-01-30] MEDS ORDERED: DEXTROSE 50% 50 ML SYRINGE IV PRN (17:00)
[2017-01-30] MEDS ORDERED: ACETAMINOPHEN TAB 650MG DOSE (2X325MG) PO PRN (17:00)
[2017-01-30] MEDS ORDERED: GLUCOSE 4 GM CHEW TABLET PO PRN (17:00)
[2017-01-30] MEDS ORDERED: GLUCAGON FOR INJ 1 MG VIAL (J1610) SC PRN (17:00)
[2017-01-30] MEDS ORDERED: VANCOMYCIN HCL 750 MG, VIAL MATE ADAPTER 1 EACH in D5W 250 ML IV SCH (17:15)
[2017-01-30] MEDS ORDERED: PROCHLORPERAZINE 5 MG TAB (S0183) PO PRN (17:30)
[2017-01-30] MEDS: HumaLOG INSULIN (NovoLOG) PER UNIT SC SCH ×2 (17:30→20:16)
[2017-01-30] MEDS ORDERED: SOD POLYSTYRENE SULFONATE SUSP 15 GM/60 ML UD PO ONE (17:30)
--- NOTE | 2017-01-30 17:30 | HPEPDOC ---
General Date of Admission Jan 30, 2017 at 16:46 Chief Complaint The patient is a 71-year-old female Presented to the ER with complaints of generalized weakness, difficulty with ambulation and not feeling right. History of Present Illness Patient is a 71 year old female with a PMHx of Pulmonary Fibrosis (2/ 2 Amiodarone), Atrial fibrillation (on Eliquis), Follicular Lymphoma (s/p Chemotherapy), HTN, Hypothyroidism, DEVEN on CPAP, DLP, IDDM2 and GERD who presented to the ER with complaints of generalized weakness, difficulty with ambulation and not feeling right. She noted that she began to feel this way since Sunday. She denied any fever or chills at home. Patients daughter noted that she may have had some slurred speech and confusion, but was only temporarily. Patient denies any nausea, vomiting, abdominal pain, constipation, diarrhea or dysuria. She denies any chest pain, shortness of breath, or palpitations. She does note a chronic productive cough that has not changed since November. She notes generalized weakness, but no focal motor or sensory changes. Home Medications Scheduled (Flonase Allergy Relief) 50 Mcg/Act Spr, 2 SPRAYS NA DAILY, (Reported) Apixaban Base (Eliquis) 5 Mg Tab, 5 MG PO BID, (Reported) Atorvastatin Calcium (Atorvastatin Calcium) 40 Mg Tab, 40 MG PO QHS, (Reported) Furosemide (Furosemide) 40 Mg Tab, 40 MG PO DAILY, (Reported) Glipizide (Glipizide) 5 Mg Tab, 10 MG PO BID, (Reported) Insulin Glargine (Lantus) 1 Units/0.01 Ml Susp, 64 UNITS SC DAILY, (Reported) Insulin Human Lispro (Humalog) 1 Units/0.01 Ml Inj, SC ACHS, (Reported) PER SLIDING SCALE Levothyroxine Sodium (Levoxyl) 100 Mcg Tab, 100 MCG PO DAILY, (Reported) Metoprolol Tartrate (Metoprolol Tartrate) 100 Mg Tab, 100 MG PO BID, (Reported) Multivitamins *[facility] STOCKED* (Thera M Plus *[facility] STOCKED*) 1 Tab Tab, 1 TAB PO DAILY, (Reported) Omeprazole (Omeprazole) 40 Mg Cap, 40 MG PO DAILY, (Reported) Potassium Chloride (Klor-Con M20) 20 Meq Tabcr, 40 MEQ PO DAILY, (Reported) Prednisone (Prednisone) 10 Mg Tab, 10 MG PO DAILY, (Reported) Scheduled PRN Ipratropium Mccaskill (Ipratropium Mccaskill) 0.5 Mg/2.5 Ml Soln, 0.5 MG INH Q8H PRN for SHORTNESS OF BREATH, (Reported) MIX WITH XOPENEX Levalbuterol Hydrochloride (Xopenex Concentrate) 1.25 Mg/0.5 Ml Neb, 1.25 MG INH Q8H PRN for SHORTNESS OF BREATH, (Reported) MIX WITH IPRATROPIUM Prochlorperazine (Prochlorperazine Maleate) 5 Mg Tab, 5 MG PO Q6H PRN for NAUSEA OR VOMITING, (Reported) Allergies Coded Allergies: Sitagliptin (Verified Allergy, Intermediate, RASH, 11/14/16) Latex (Verified Adverse Reaction, Intermediate, RISK, 11/14/16) Lisinopril (Unverified Adverse Reaction, Mild, Cough, 11/14/16) Past Medical History Medical History As stated in HPI In addition to: Macular degeneration / edema, Cataracts Surgical History Umbilical hernia and left inguinal repair Tubal ligation Right thumb procedure Left meniscus repair Left rotator cuff repair Cholecystectomy Right total knee replacement Excisional biopsy of Left LN Bilateral cataract surgery Vitreous hemorrhage bilaterally Left carpal tunnel release Right parotidectomy Cardiac ablation (at 3 foci) Cardioversion (2x) Colonoscopy (2006) Infusi-port for chemotherapy (04/2013) Family History - Mother with history of HTN, DM2, Hypothyroidism - Father with history of CAD, HTN, DM2 - Family history of DM2, HTN and DLP in siblings, also with history of RI and Stroke Social History - Denies the use of alcohol, tobacco or illicit drugs - Denies recent travel or sick contacts - Lives with daughter - 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; 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 Review of Symptoms Other systems Negative otherwise stated in HPI Vital Signs - Vitals: BP 143/64, HR 65, RR 18, Sat 94%RA, Temp 97.6 - General: Lying in bed, No acute distress, Speaking in full sentences, AAOx3 - HEENT: Left pupil larger than right, left pupil sluggish, right reactive - CVS: RRR, +S1S2 - Lungs: Fair air entry bilaterally, Inspiratory crackles bilaterally appreciated - Abdomen: Soft, Non-distended, Non-tender, + Bowel sounds x 4 - Extremities: No lower extremity edema, No calf tenderness - Neuro: No focal motor or sensory deficit; 4/5 muscle strength in all extremities - Skin: No visible rashes Laboratory Data Labs 24H Laboratory Tests 2 01/30/17 13:59: Immature Granulocyte % (Auto) 2.2H, White Blood Count 25.4H, Red Blood Count 4.58, Hemoglobin 13.1, Hematocrit 40.6, Mean Corpuscular Volume 88.6, Mean Corpuscular Hemoglobin 28.6, Mean Corpuscular Hemoglobin Concent 32.3, Red Cell Distribution Width 17.0H, Platelet Count 240, Neutrophils (%) (Auto) 81.5H, Lymphocytes (%) (Auto) 12.3L, Monocytes (%) (Auto) 3.5, Eosinophils (%) (Auto) 0.2, Basophils (%) (Auto) 0.3, Neutrophils # (Auto) 20.7H, Lymphocytes # (Auto) 3.1, Monocytes # (Auto) 0.9H, Eosinophils # (Auto) 0.0, Basophils # (Auto) 0.1, Immature Granulocyte # (Auto) 0.6H, Nucleated Red Blood Cells % (auto) 0.0, Blood Gas Bicarbonate Standard 25.1, Venous Blood pH 7.473H, Venous Blood Partial Pressure CO2 33.0L, Venous Blood Partial Pressure O2 107.0H, Venous Blood Total Carbon Dioxide 24.7, Venous Blood HCO3 23.6, Venous Blood Oxygen Saturation 98.4H, Venous Blood Base Excess 0.7, Anion Gap 10, Glomerular Filtration Rate 31.9L, Lactic Acid Level 2.3*H, Calcium Level 8.6L, Aspartate Amino Transf (AST/SGOT) 23, Alanine Aminotransferase (ALT/SGPT) 37, Alkaline Phosphatase 116, Total Bilirubin 0.8, Direct Bilirubin 0.2, Ammonia 21, Total Creatine Kinase 21L, Creatine Kinase MB < 1.0, Creatine Kinase MB Relative Index 4.76H, Troponin I < 0.02, Total Protein 5.9L, Albumin 2.7L, Albumin/ Globulin Ratio 0.84L, Thyroid Stimulating Hormone (TSH) 4.470H 01/30/17 15:16: Urine Appearance CLEAR, Urine Color STRAW, Urine pH 5.0, Urine Specific [place] 1.008, Urine Protein NEGATIVE, Urine Glucose (UA) NEGATIVE, Urine Ketones NEGATIVE, Urine Urobilinogen 0.2, Urine Bilirubin NEGATIVE, Urine Leukocyte Esterase TRACEH, Urine Blood NEGATIVE, Urine Nitrite NEGATIVE, Urine WBC (Auto) 3, Urine RBC (Auto) 6H, Urine Hyaline Casts (Auto) 5, Urine Bacteria (Auto) 1+H , Urine Squamous Epithelial Cells 1, Urine Mucus (Auto) SMALL, Urine Sperm (Auto ) CBC/BMP Laboratory Tests 01/30/17 13:59 Red Blood Count 4.58, Mean Corpuscular Volume 88.6, Mean Corpuscular Hemoglobin 28.6, Mean Corpuscular Hemoglobin Concent 32.3, Red Cell Distribution Width 17.0 H, Neutrophils (%) (Auto) 81.5 H, Lymphocytes (%) (Auto) 12.3 L, Monocytes (%) (Auto) 3.5, Eosinophils (%) (Auto) 0.2, Basophils (%) (Auto) 0.3, Neutrophils # (Auto) 20.7 H, Lymphocytes # (Auto) 3.1, Monocytes # (Auto) 0.9 H , Eosinophils # (Auto) 0.0, Basophils # (Auto) 0.1 Microbiology Microbiology 01/30/17 Blood Culture, Received Pending 01/30/17 Blood Culture, Received Pending 01/30/17 Urine Culture, Received Pending Plan / VTE VTE Prophylaxis Ordered?: Yes Plan Plan Weakness, fatigue and difficulty with ambulation possibly 2/2 deconditioned state, possibly 2/2 infection - etiology unclear, possibly stroke - Reports symptoms began on Sunday - Review of systems negative, other than chronic productive cough - Physical with crackles at bilateral lung bases; possibly 2/2 chronic pulmonary fibrosis - Afebrile - Labs reveal elevated WBC and mild elevation in lactic acid - s/p Vancomycin and Zosyn in ER; will continue the same - Blood cultures, Sputum Cultures and Urine cultures pending - Will check MRI and MRA brain - c/w PCU monitoring Leukocytosis - possibly 2/2 infection, possibly 2/2 reactive (corticosteroids) - Review of systems negative - history of Pseudomonas and Serratia lung infection in November 2016 - will c/w Antibiotics Acute kidney injury likely 2/2 pre-renal etiology, possibly intra-renal - s/p IV fluids in ER - Hold nephrotoxic medications - c/w IV fluid hydration at 60cc/hr with Normal Saline - Will hold Furosemide Hyperkalemia - Will give single dose of Kayexylate 15g PO Pulmonary Fibrosis - 2/2 Amiodarone - c/w Prednisone 10mg - Has been tapered down from 50mg since November Atrial fibrillation - on anticoagulation with Eliquvlad Follicular Lymphoma - s/p Chemotherapy - Follows with Dr. Bianchi HTN - BP moderately controlled - c/w Metoprolol Hypothyroidism - TSH elevated - c/w Levothyroxine DEVEN on CPAP - Allow home CPAP use DLP - c/w Atorvastatin IDDM2 - c/w ISS - Will reduce dose of Lantus 64 while inpatient to Levimir 40 GERD - c/w Omeprazole DVT prophylaxis - On full anticoagulation with RADHA Durán MD Jan 30, 2017 17:30
[2017-01-30] MEDS ORDERED: VANCOMYCIN HCL 500 MG in D5W MINI-BAG PLUS 100 ML IV ONE (17:45)
[2017-01-30] MEDS ORDERED: HEPARIN SOD (PORCINE) 5000 UNITS/ML VIAL SC SCH (18:00)
[2017-01-30 20:00] VITALS: BP 152/67
[2017-01-30] MEDS: ATORVASTATIN 20 MG TAB PO SCH (20:16)
[2017-01-30] MEDS: APIXABAN 5 MG TAB (ELIQUIS) PO SCH (20:16)
[2017-01-30] MEDS: NS 1,000 ML IV SCH (20:17)
--- NOTE | 2017-01-30 20:25 | PHACANCOPD ---
PHARMACY VANCOMYCIN DOSING Pt Demographics Demographics Patient Age:71 , Weight:92.320 , Gender: female Adjusted Body Weight Date: 01/30/17, Adjusted Body Weight: Kg Events Past 24 Hours Events Past 24 Hours: YES: Change in CrCl (DHARMESH) Vancomycin Vancomycin indication: MRSA COVERAGE Vancomycin Target Ranges: 15-20 mcg/ml Vancomycin Load Y/N: Yes Load Dose Date Time Vancomycin Load Dose: 1500mg Date:01/30 Time: 1700 Vancomycin Dose Date: 01/31/17. Current Vancomycin Dose: [1000mg iv q18h @11] Intermittent Dosing?: No Labs Labs Item Value Date Time White Blood Count 25.4 10^3/uL H 01/30/17 1359 Creatinine 1.69 MG/DL H 01/30/17 1359 Micro Microbiology 01/30/17 Blood Culture, Received Pending 01/30/17 Blood Culture, Received Pending 01/30/17 Urine Culture, Received Pending Creatinine Clearance Date:01/30/17. Creatinine Clearance: [25mls/min]. Pending Labs vanco trough 02/01/17 @ 0400 Assessment and Plan Maintaining Current Dose?: Yes Reason for dose change: No Dose Change Pharmacist Note Pharmacist Note Date: 01/30/17. Pharmacist note: Patient was given a 1500mg loading dose @ 1700 followed by 1 gm iv q18h. Cultures are pending. WBCs and SCr are both elevated. Trough is scheduled prior to 3rd dose (02/01 @ 0400). Continue to monitor renal function and adjust dose as needed. CHEN ESCALANTE PHARMACY Jan 30, 2017 20:25
[2017-01-30] MEDS: LEVALBUTEROL 1.25 MG/0.5 ML CONCENTRATE NEB INH PRN (20:38)
--- NOTE | 2017-01-30 20:39 | ECGEPIP ---
Stationary ECG Study [facility] - ED Test Date: 2017-01-30 Pat Name: LISA DIAMOND Department: Room: - Gender: F Switch Inspector: tamara : [id number] Requested By: FOREST AVINA Order Number: [id number] Reading MD: Jo Figueroa Measurements Intervals [place] Rate: 72 P: -17 ND: 147 QRS: -20 QRSD: 94 T: 52 QT: 402 QTc: 442 Interpretive Statements SINUS RHYTHM MODERATE VOLTAGE CRITERIA FOR LVH, CONSIDER NORMAL VARIANT POSSIBLE ANTERIOR MYOCARDIAL INFARCTION, OF INDETERMINATE AGE NSTTW ABNORMALITY LAD DECREASED RATE 11/22/16 Electronically Signed On 01-30-2017 20:39:08 EDT by Jo Figueroa
[2017-01-30] MEDS: METOPROLOL TARTRATE 100 MG TAB PO SCH (21:00)
[2017-01-30 22:20] VITALS: BP 119/60
[2017-01-30] MEDS: PIPERACILLIN/TAZOBACTAM SOD 3.375 GM in D5W 50 ML IV SCH (23:37)
[2017-01-31] VITALS (7 sets, daily range): BP systolic 111–158; BP diastolic 53–71
[2017-01-31] MEDS: LEVOTHYROXINE 100MCG TABLET (0.1MG) PO SCH (05:22)
[2017-01-31 06:51] LABS: BASO % 0.3 % (0.0-1.0); EOS # 0.1 10^3/uL (0.0-0.50); EOS % 0.7 % (0.0-3.0); IMMATURE GRANULOCYTE % 2.5 % (0-0); LYMPH # 3.9 10^3/uL (1.5-4.5); LYMPH % 28.9 % (24.0-44.0); MEAN CORPUSCULAR HEMOGLOBIN 28.4 pg (27.0-33.0); MEAN CORPUSCULAR HGB CONC 31.9 g/dl (32.0-36.5); MONO # 0.9 10^3/uL (0.0-0.8); MONO % 6.3 % (0.0-5.0); NEUTROPHILS # 8.2 10^3/uL (1.8-7.7); NEUTROPHILS % 61.3 % (36.0-66.0); PLATELET COUNT, AUTOMATED 205 10^3/uL (150-450); RED CELL DISTRIBUTION WIDTH 16.8 % (11.5-14.5); WHITE BLOOD COUNT 13.4 10^3/uL (4.0-10.0)
[2017-01-31 07:21] LABS: ALBUMIN 2.1 GM/DL (3.2-5.2); ALBUMIN/GLOBULIN RATIO 0.75 (1.00-1.93); BILIRUBIN,TOTAL 0.6 MG/DL (0.2-1.0); CALCIUM LEVEL 8.4 MG/DL (8.8-10.2); CREATININE FOR GFR 1.42 MG/DL (0.55-1.02); POTASSIUM SERUM 3.8 MEQ/L (3.5-5.1); TOTAL PROTEIN 4.9 GM/DL (6.4-8.2)
[2017-01-31] MEDS: APIXABAN 5 MG TAB (ELIQUIS) PO SCH ×2 (09:15→20:40)
[2017-01-31] MEDS: METOPROLOL TARTRATE 100 MG TAB PO SCH ×2 (09:15→20:40)
[2017-01-31] MEDS: OMEPRAZOLE 20 MG CAP PO SCH (09:15)
[2017-01-31] MEDS: PIPERACILLIN/TAZOBACTAM SOD 3.375 GM in D5W 50 ML IV SCH ×2 (09:15→16:05)
[2017-01-31] MEDS: FLUTICASONE PROP 0.05% NASAL SPRAY 16 GM (FLONASE) SCH (09:15)
[2017-01-31] MEDS: predniSONE 10 MG TAB PO SCH (09:15)
[2017-01-31] MEDS: MULTIVITAMINS/MINERALS THERAP 1 TAB PO SCH (09:15)
[2017-01-31] MEDS: LEVEMIR (INSULIN DETEMIR) 1 UNITS/0.01ML SC SCH (09:16)
[2017-01-31] MEDS: HumaLOG INSULIN (NovoLOG) PER UNIT SC SCH ×4 (09:16→20:41)
[2017-01-31] MEDS ORDERED: VANCOMYCIN HCL 1,000 MG, VIAL MATE ADAPTER 1 EACH in D5W 250 ML IV SCH (11:00)
--- NOTE | 2017-01-31 11:21 | IPNPDOC ---
Subjective Date Seen The patient was seen on 01/31/17. Subjective Chief Complaint/HPI The patient is a 71-year-old female admitted with a reason for visit of Lactic Acid Acidosis;Leukocytosis. Events since last encounter Significant improvement in symptoms with IV hydration and IV antibiotics. urine cx negative. Mentation improved. Tolerating po well. Constitutional: Denies: Chills, Fever, Night Sweats Skin: Denies: Rash, Lesions, Breakdown Pulmonary: Reports: Dyspnea (chronic) Cardiovascular: Denies: Chest Pain, Palpitations, Orthopnea, Paroxysmal Noc. Dyspnea, Lt Headedness Gastrointestinal: Denies: Nausea, Vomiting, Abdominal Pain, Diarrhea, Constipation, Melena, Hematochezia, Other Symptoms Psych: Reports: Mood Normal, Denies: Depression, Memory Issues Objective Physical Examination General Exam: Positive: Alert, No Acute Distress Eye Exam: Positive: PERRLA, Conjunctiva & lids normal, EOMI, Negative: Sclera icteric Neck Exam: Positive: Supple, Negative: JVD, thyromegaly Chest Exam: Positive: Clear to auscultation, Normal air movement Heart Exam: Positive: Rate Normal, Regular Rhythm, Normal S1, Normal S2, Negative: Murmurs, Rubs Telemetry: Positive: No significant arrhythmia Abdomen Exam: Positive: Normal bowel sounds, Soft, Negative: Tenderness, Hepatospenomegaly Skin Exam: Positive: Nl turgor and temperature, Negative: Rash, Breakdown Psych Exam: Positive: Mental status NL, Mood NL, Oriented x 3 Assessment /Plan Problems (1) Lactic acid acidosis Status: Resolved Problem Text: resolved with fluid resuscitation (2) Weakness Status: Acute Problem Text: PT eval. recently spent a week in [facility] rehab for debility (3) Leukocytosis Status: Acute (4) T2DM (type 2 diabetes mellitus) Status: Chronic (5) DEVEN on CPAP Status: Chronic (6) CKD (chronic kidney disease) stage 3, GFR 30-59 ml/min Status: Chronic (7) HTN (hypertension) Status: Chronic (8) Pulmonary fibrosis Status: Chronic (9) GERD (gastroesophageal reflux disease) Status: Chronic (10) Hypothyroidism (acquired) Status: Chronic Plan/VTE VTE Prophylaxis Ordered?: Yes (Eliquis) VS, I&O, 24H, Fishbone Vital Signs/I&O Vital Signs Date Time Temp Pulse Resp B/P (MAP) Pulse Ox O2 Delivery O2 Flow Rate FiO2 01/31/17 08:14 92 Room Air 01/31/17 08:00 97.0 66 18 125/59 (81) 01/30/17 22:47 3.0 I&O- Last 24 Hours up to 6 AM 02/01/17 06:00 Intake Total 480 ml Output Total 400 ml Balance 80 ml Laboratory Data 24H LABS Laboratory Tests 2 01/30/17 13:59: Immature Granulocyte % (Auto) 2.2H, White Blood Count 25.4H, Red Blood Count 4.58, Hemoglobin 13.1, Hematocrit 40.6, Mean Corpuscular Volume 88.6, Mean Corpuscular Hemoglobin 28.6, Mean Corpuscular Hemoglobin Concent 32.3, Red Cell Distribution Width 17.0H, Platelet Count 240, Neutrophils (%) (Auto) 81.5H, Lymphocytes (%) (Auto) 12.3L, Monocytes (%) (Auto) 3.5, Eosinophils (%) (Auto) 0.2, Basophils (%) (Auto) 0.3, Neutrophils # (Auto) 20.7H, Lymphocytes # (Auto) 3.1, Monocytes # (Auto) 0.9H, Eosinophils # (Auto) 0.0, Basophils # (Auto) 0.1, Immature Granulocyte # (Auto) 0.6H, Nucleated Red Blood Cells % (auto) 0.0, Blood Gas Bicarbonate Standard 25.1, Venous Blood pH 7.473H, Venous Blood Partial Pressure CO2 33.0L, Venous Blood Partial Pressure O2 107.0H, Venous Blood Total Carbon Dioxide 24.7, Venous Blood HCO3 23.6, Venous Blood Oxygen Saturation 98.4H, Venous Blood Base Excess 0.7, Anion Gap 10, Glomerular Filtration Rate 31.9L, Lactic Acid Level 2.3*H, Calcium Level 8.6L, Aspartate Amino Transf (AST/SGOT) 23, Alanine Aminotransferase (ALT/SGPT) 37, Alkaline Phosphatase 116, Total Bilirubin 0.8, Direct Bilirubin 0.2, Ammonia 21, Total Creatine Kinase 21L, Creatine Kinase MB < 1.0, Creatine Kinase MB Relative Index 4.76H, Troponin I < 0.02, C-Reactive Protein, Quantitative 8.00H, Total Protein 5.9L, Albumin 2.7L, Albumin/Globulin Ratio 0.84L, Thyroid Stimulating Hormone (TSH) 4.470H 01/30/17 15:16: Urine Appearance CLEAR, Urine Color STRAW, Urine pH 5.0, Urine Specific [place] 1.008, Urine Protein NEGATIVE, Urine Glucose (UA) NEGATIVE, Urine Ketones NEGATIVE, Urine Urobilinogen 0.2, Urine Bilirubin NEGATIVE, Urine Leukocyte Esterase TRACEH, Urine Blood NEGATIVE, Urine Nitrite NEGATIVE, Urine WBC (Auto) 3, Urine RBC (Auto) 6H, Urine Hyaline Casts (Auto) 5, Urine Bacteria (Auto) 1+H , Urine Squamous Epithelial Cells 1, Urine Mucus (Auto) SMALL, Urine Sperm (Auto ) 01/30/17 18:27: Lactic Acid Followup at 4 Hours 1.8 01/30/17 20:03: Bedside Glucose (Misc Panel) 322H 01/31/17 06:34: Immature Granulocyte % (Auto) 2.5H, White Blood Count 13.4H, Red Blood Count 3.73L, Hemoglobin 10.6#L, Hematocrit 33.2L, Mean Corpuscular Volume 89.0, Mean Corpuscular Hemoglobin 28.4, Mean Corpuscular Hemoglobin Concent 31.9L, Red Cell Distribution Width 16.8H, Platelet Count 205, Neutrophils (%) (Auto) 61.3, Lymphocytes (%) (Auto) 28.9, Monocytes (%) (Auto) 6.3H, Eosinophils (%) (Auto) 0.7, Basophils (%) (Auto) 0.3, Neutrophils # (Auto) 8.2H, Lymphocytes # (Auto) 3.9, Monocytes # (Auto) 0.9H, Eosinophils # (Auto) 0.1, Basophils # (Auto) 0.0, Immature Granulocyte # (Auto) 0.3H, Nucleated Red Blood Cells % (auto) 0.0, Anion Gap 8, Glomerular Filtration Rate 39.0L, Blood Urea Nitrogen 33H, Creatinine 1.42H, Sodium Level 142, Potassium Level 3.8#, Chloride Level 106, Carbon Dioxide Level 28, Calcium Level 8.4L, Aspartate Amino Transf (AST/SGOT) 17, Alanine Aminotransferase (ALT/SGPT) 29, Alkaline Phosphatase 88, Total Bilirubin 0.6, Total Protein 4.9L, Albumin 2.1#L, Magnesium Level 2.0, C- Reactive Protein, Quantitative 6.05H, Albumin/Globulin Ratio 0.75L CBC/BMP Laboratory Tests 01/30/17 13:59 Red Blood Count 4.58, Mean Corpuscular Volume 88.6, Mean Corpuscular Hemoglobin 28.6, Mean Corpuscular Hemoglobin Concent 32.3, Red Cell Distribution Width 17.0 H, Neutrophils (%) (Auto) 81.5 H, Lymphocytes (%) (Auto) 12.3 L, Monocytes (%) (Auto) 3.5, Eosinophils (%) (Auto) 0.2, Basophils (%) (Auto) 0.3, Neutrophils # (Auto) 20.7 H, Lymphocytes # (Auto) 3.1, Monocytes # (Auto) 0.9 H , Eosinophils # (Auto) 0.0, Basophils # (Auto) 0.1 01/31/17 06:34 Red Blood Count 3.73 L, Mean Corpuscular Volume 89.0, Mean Corpuscular Hemoglobin 28.4, Mean Corpuscular Hemoglobin Concent 31.9 L, Red Cell Distribution Width 16.8 H, Neutrophils (%) (Auto) 61.3, Lymphocytes (%) (Auto) 28.9, Monocytes (%) (Auto) 6.3 H, Eosinophils (%) (Auto) 0.7, Basophils (%) ( Auto) 0.3, Neutrophils # (Auto) 8.2 H, Lymphocytes # (Auto) 3.9, Monocytes # ( Auto) 0.9 H, Eosinophils # (Auto) 0.1, Basophils # (Auto) 0.0, Calcium Level 8.4 L, Aspartate Amino Transf (AST/SGOT) 17, Alanine Aminotransferase (ALT/SGPT ) 29, Alkaline Phosphatase 88, Total Bilirubin 0.6, Total Protein 4.9 L, Albumin 2.1 #L Microbiology Microbiology 01/30/17 Blood Culture, Received Pending 01/30/17 Blood Culture, Received Pending 01/30/17 Urine Culture - Final, Complete Guadalupe Pham [facility] Jan 31, 2017 11:20
[2017-01-31] MEDS: LEVALBUTEROL 1.25 MG/0.5 ML CONCENTRATE NEB INH PRN (18:43)
[2017-01-31] MEDS: ATORVASTATIN 20 MG TAB PO SCH (20:40)
[2017-01-31] MEDS: NS 1,000 ML IV SCH (20:41)
[2017-02-01] MEDS: PIPERACILLIN/TAZOBACTAM SOD 3.375 GM in D5W 50 ML IV SCH ×2 (00:19→08:35)
[2017-02-01 04:00] VITALS: BP 137/63
[2017-02-01] MEDS: LEVOTHYROXINE 100MCG TABLET (0.1MG) PO SCH (05:22)
[2017-02-01 06:01] LABS: BASO % 0.2 % (0.0-1.0); EOS # 0.1 10^3/uL (0.0-0.50); EOS % 0.7 % (0.0-3.0); LYMPH # 3.2 10^3/uL (1.5-4.5); LYMPH % 26.4 % (24.0-44.0); MEAN CORPUSCULAR HEMOGLOBIN 28.3 pg (27.0-33.0); MEAN CORPUSCULAR HGB CONC 32.2 g/dl (32.0-36.5); MONO # 0.8 10^3/uL (0.0-0.8); MONO % 6.3 % (0.0-5.0); NEUTROPHILS # 7.9 10^3/uL (1.8-7.7); NEUTROPHILS % 64.4 % (36.0-66.0); PLATELET COUNT, AUTOMATED 216 10^3/uL (150-450); RED CELL DISTRIBUTION WIDTH 16.3 % (11.5-14.5); WHITE BLOOD COUNT 12.2 10^3/uL (4.0-10.0)
[2017-02-01 06:26] LABS: ALBUMIN 2.2 GM/DL (3.2-5.2); BILIRUBIN,TOTAL 0.4 MG/DL (0.2-1.0); CALCIUM LEVEL 8.1 MG/DL (8.8-10.2); CREATININE FOR GFR 1.26 MG/DL (0.55-1.02); GLOMERULAR FILTRATION RATE 44.8 (>45); POTASSIUM SERUM 3.6 MEQ/L (3.5-5.1); TOTAL PROTEIN 4.4 GM/DL (6.4-8.2)
[2017-02-01] MEDS: HumaLOG INSULIN (NovoLOG) PER UNIT SC SCH ×4 (07:30→21:52)
[2017-02-01 08:00] VITALS: BP 150/69
[2017-02-01] MEDS: NS 1,000 ML IV SCH (08:34)
[2017-02-01] MEDS: APIXABAN 5 MG TAB (ELIQUIS) PO SCH ×2 (08:35→21:52)
[2017-02-01] MEDS: predniSONE 10 MG TAB PO SCH (08:35)
[2017-02-01] MEDS: MULTIVITAMINS/MINERALS THERAP 1 TAB PO SCH (08:36)
[2017-02-01] MEDS: METOPROLOL TARTRATE 100 MG TAB PO SCH ×2 (08:36→21:53)
[2017-02-01] MEDS: OMEPRAZOLE 20 MG CAP PO SCH (08:36)
[2017-02-01] MEDS: LEVEMIR (INSULIN DETEMIR) 1 UNITS/0.01ML SC SCH (08:37)
[2017-02-01] MEDS: FLUTICASONE PROP 0.05% NASAL SPRAY 16 GM (FLONASE) SCH (08:37)
--- NOTE | 2017-02-01 10:59 | IPNPDOC ---
Subjective Date Seen The patient was seen on 02/01/17. Subjective Chief Complaint/HPI The patient is a 71-year-old female admitted with a reason for visit of Lactic Acid Acidosis;Leukocytosis. Events since last encounter Significant improvement in symptoms. Cleared to go home with PT. IVF still running. has persistent cough, not on home Mucinex. Blood cultures negative. Constitutional: Denies: Chills, Fever, Night Sweats Pulmonary: Reports: Dyspnea (chronic), Cough (chronic) Psych: Reports: Mood Normal, Denies: Depression, Memory Issues Objective Physical Examination General Exam: Positive: Alert, No Acute Distress Eye Exam: Positive: PERRLA, Conjunctiva & lids normal, EOMI, Negative: Sclera icteric Neck Exam: Positive: Supple, Negative: JVD, thyromegaly Chest Exam: Positive: Clear to auscultation, Normal air movement Heart Exam: Positive: Rate Normal, Regular Rhythm, Normal S1, Normal S2, Negative: Murmurs, Rubs Telemetry: Positive: No significant arrhythmia Abdomen Exam: Positive: Normal bowel sounds, Soft, Negative: Tenderness, Hepatospenomegaly Skin Exam: Positive: Nl turgor and temperature, Negative: Rash, Breakdown Psych Exam: Positive: Mental status NL, Mood NL, Oriented x 3 Assessment /Plan Problems (1) Lactic acid acidosis Status: Resolved Problem Text: resolved with fluid resuscitation (2) Weakness Status: Acute Problem Text: 02/01/17: cleared by PT. PT jd. recently spent a week in [facility] rehab for debility (3) Leukocytosis Status: Acute Problem Text: resolving. DC IV abx. monitor x 24 hours, plan on DC home in am. (4) T2DM (type 2 diabetes mellitus) Status: Chronic (5) DEVEN on CPAP Status: Chronic (6) CKD (chronic kidney disease) stage 3, GFR 30-59 ml/min Status: Chronic (7) HTN (hypertension) Status: Chronic (8) Pulmonary fibrosis Status: Chronic (9) GERD (gastroesophageal reflux disease) Status: Chronic (10) Hypothyroidism (acquired) Status: Chronic Plan/VTE VTE Prophylaxis Ordered?: Yes (Eliquis) VS, I&O, 24H, Fishbone Vital Signs/I&O Vital Signs Date Time Temp Pulse Resp B/P (MAP) Pulse Ox O2 Delivery O2 Flow Rate FiO2 02/01/17 08:00 96.7 63 18 150/69 (96) 96 Room Air 01/31/17 20:00 3.0 I&O- Last 24 Hours up to 6 AM 02/02/17 06:00 Intake Total 140 ml Output Total 0 ml Balance 140 ml Laboratory Data 24H LABS Laboratory Tests 2 01/31/17 11:41: Bedside Glucose (Misc Panel) 209H 01/31/17 17:35: Bedside Glucose (Misc Panel) 311H 02/01/17 05:32: Immature Granulocyte % (Auto) 2.0H, White Blood Count 12.2H, Red Blood Count 3.67L, Hemoglobin 10.4L, Hematocrit 32.3L, Mean Corpuscular Volume 88.0, Mean Corpuscular Hemoglobin 28.3, Mean Corpuscular Hemoglobin Concent 32.2, Red Cell Distribution Width 16.3H, Platelet Count 216, Neutrophils (%) (Auto) 64.4, Lymphocytes (%) (Auto) 26.4, Monocytes (%) (Auto) 6.3H, Eosinophils (%) (Auto) 0.7, Basophils (%) (Auto) 0.2, Neutrophils # (Auto) 7.9H, Lymphocytes # (Auto) 3.2, Monocytes # (Auto) 0.8, Eosinophils # (Auto) 0.1, Basophils # (Auto) 0.0, Immature Granulocyte # (Auto) 0.2H, Nucleated Red Blood Cells % (auto) 0.0, Anion Gap 8, Glomerular Filtration Rate 44.8L, Blood Urea Nitrogen 26H, Creatinine 1.26H, Sodium Level 142, Potassium Level 3.6, Chloride Level 109H, Carbon Dioxide Level 25, Calcium Level 8.1L, Aspartate Amino Transf (AST/SGOT) 15, Alanine Aminotransferase (ALT/SGPT) 29, Alkaline Phosphatase 78, Total Bilirubin 0.4, Total Protein 4.4L, Albumin 2.2L, Magnesium Level 2.0, C- Reactive Protein, Quantitative 3.21H, Albumin/Globulin Ratio 1.00 CBC/BMP Laboratory Tests 02/01/17 05:32 Red Blood Count 3.67 L, Mean Corpuscular Volume 88.0, Mean Corpuscular Hemoglobin 28.3, Mean Corpuscular Hemoglobin Concent 32.2, Red Cell Distribution Width 16.3 H, Neutrophils (%) (Auto) 64.4, Lymphocytes (%) (Auto) 26.4, Monocytes (%) (Auto) 6.3 H, Eosinophils (%) (Auto) 0.7, Basophils (%) ( Auto) 0.2, Neutrophils # (Auto) 7.9 H, Lymphocytes # (Auto) 3.2, Monocytes # ( Auto) 0.8, Eosinophils # (Auto) 0.1, Basophils # (Auto) 0.0, Calcium Level 8.1 L , Aspartate Amino Transf (AST/SGOT) 15, Alanine Aminotransferase (ALT/SGPT) 29, Alkaline Phosphatase 78, Total Bilirubin 0.4, Total Protein 4.4 L, Albumin 2.2 L Microbiology Microbiology 01/30/17 Blood Culture - Preliminary, Resulted No growth after 24 hours . All specim... 01/30/17 Blood Culture - Preliminary, Resulted No growth after 24 hours . All specim... 01/30/17 Urine Culture - Final, Complete Guadalupe Pham [facility] Feb 01, 2017 10:59
[2017-02-01] MEDS: guaiFENesin ER 600 MG TAB PO SCH ×2 (11:33→21:52)
[2017-02-01 12:00] VITALS: BP 178/72
[2017-02-01 12:01] VITALS: BP 162/70
[2017-02-01] MEDS: LEVALBUTEROL 1.25 MG/0.5 ML CONCENTRATE NEB INH PRN (15:53)
[2017-02-01 21:00] VITALS: BP 153/75
[2017-02-01] MEDS: ATORVASTATIN 20 MG TAB PO SCH (21:52)
[2017-02-02] MEDS: LEVOTHYROXINE 100MCG TABLET (0.1MG) PO SCH (05:50)
[2017-02-02 06:00] VITALS: BP 146/74
[2017-02-02 07:00] LABS: BASO # 0.1 10^3/uL (0.0-0.2); BASO % 0.5 % (0.0-1.0); EOS # 0.1 10^3/uL (0.0-0.50); EOS % 1.1 % (0.0-3.0); IMMATURE GRANULOCYTE % 3.9 % (0-0); LYMPH # 3.9 10^3/uL (1.5-4.5); LYMPH % 36.4 % (24.0-44.0); MEAN CORPUSCULAR HEMOGLOBIN 28.1 pg (27.0-33.0); MEAN CORPUSCULAR HGB CONC 32.1 g/dl (32.0-36.5); MEAN CORPUSCULAR VOLUME 87.5 fl (80.0-96.0); MONO # 0.8 10^3/uL (0.0-0.8); MONO % 7.4 % (0.0-5.0); NEUTROPHILS # 5.4 10^3/uL (1.8-7.7); NEUTROPHILS % 50.7 % (36.0-66.0); PLATELET COUNT, AUTOMATED 228 10^3/uL (150-450); RED CELL DISTRIBUTION WIDTH 16.3 % (11.5-14.5); WHITE BLOOD COUNT 10.7 10^3/uL (4.0-10.0)
[2017-02-02 07:14] LABS: ALBUMIN 2.3 GM/DL (3.2-5.2); ALBUMIN/GLOBULIN RATIO 0.82 (1.00-1.93); ALKALINE PHOSPHATASE 80 U/L (45-117); ALT/SGPT 30 U/L (12-78); ANION GAP 7 MEQ/L (8-16); AST/SGOT 13 U/L (15-37); BILIRUBIN,TOTAL 0.3 MG/DL (0.2-1.0); BLOOD UREA NITROGEN 19 MG/DL (7-18); CALCIUM LEVEL 8.4 MG/DL (8.8-10.2); CARBON DIOXIDE LEVEL 26 MEQ/L (21-32); CHLORIDE LEVEL 109 MEQ/L (98-107); CREATININE FOR GFR 0.86 MG/DL (0.55-1.02); GLOMERULAR FILTRATION RATE > 60.0 (>45); GLUCOSE, FASTING 75 MG/DL (80-110); MAGNESIUM LEVEL 1.9 MG/DL (1.8-2.4); POTASSIUM SERUM 3.6 MEQ/L (3.5-5.1); SODIUM LEVEL 142 MEQ/L (136-145); TOTAL PROTEIN 5.1 GM/DL (6.4-8.2)
[2017-02-02] MEDS: HumaLOG INSULIN (NovoLOG) PER UNIT SC SCH (08:11)
[2017-02-02] MEDS: guaiFENesin ER 600 MG TAB PO SCH (08:12)
[2017-02-02] MEDS: predniSONE 10 MG TAB PO SCH (08:12)
[2017-02-02] MEDS: OMEPRAZOLE 20 MG CAP PO SCH (08:12)
[2017-02-02] MEDS: LEVEMIR (INSULIN DETEMIR) 1 UNITS/0.01ML SC SCH (08:12)
[2017-02-02] MEDS: MULTIVITAMINS/MINERALS THERAP 1 TAB PO SCH (08:12)
[2017-02-02] MEDS: APIXABAN 5 MG TAB (ELIQUIS) PO SCH (08:12)
[2017-02-02 08:13] VITALS: BP 146/74
[2017-02-02] MEDS: METOPROLOL TARTRATE 100 MG TAB PO SCH (08:13)
[2017-02-02] MEDS: FLUTICASONE PROP 0.05% NASAL SPRAY 16 GM (FLONASE) SCH (08:16)
--- NOTE | 2017-02-02 15:34 | DSES ---
DATE OF ADMISSION: 01/31/2017 DATE OF DISCHARGE: 02/02/2017 HISTORY OF PRESENT ILLNESS: This is a 61-year-old female with past medical history of pulmonary fibrosis, atrial fibrillation, follicular lymphoma, hypertension, hypothyroidism, obstructive sleep apnea, diabetes, gastroesophageal reflux disease (GERD), who presented to the emergency room for complaints of generalized weakness and difficulty with ambulation for approximately 2 days prior to presentation. Workup in the emergency department (ED), showed significant leukocytosis with a white blood cell count of 25,000 and an elevated lactic acid of 2.3. The patient's labs improved with significant hydration and lactic acid followup was 1.8. The patient was placed on broad-spectrum antibiotics with vancomycin and Zosyn. Within less than 24 hours, patient's white blood cell count came down to 13,000 on 01/31/2017. Blood cultures returned negative. Her antibiotics were stopped. Her IV fluids were stopped and patient continued to improve significantly. Her furosemide and potassium were held on admission secondary to hyperkalemia and significant appearance of dehydration with acute kidney injury and a creatinine of 1.4. After aggressive hydration and holding these medications, patient continued to improve. She is ambulating without difficulty. Imaging completed in hospital includes head CT which was negative and a chest x-ray which proved for chronic interstitial fibrosis and cardiomegaly, no acute disease at that time. Urine culture was obtained and was also negative. On physical examination today, vital signs are stable, she is afebrile. Labs show normal electrolytes with a potassium of 3.6, sodium of 142, BUN 19, creatinine 0.86. Hematology shows a white blood cell count of 10,000 with a hemoglobin and hematocrit of 10 and 33. HEENT: Neck is supple without lymphadenopathy or jugular venous distention (JVD). CARDIOVASCULAR: Heart rate and rhythm are regular. PULMONARY: Lungs are clear with some fine bibasilar crackles which is chronic for this patient who has a history of pulmonary fibrosis. ABDOMEN: Soft and nontender with positive bowel sounds times all four quadrants. BILATERAL LOWER EXTREMITIES: Without any edema. NEUROLOGIC: She is alert and oriented times three. PSYCHIATRIC: Affect is appropriate, conversation is congruent. Patient maintains eye contact. ASSESSMENT: DISCHARGE DIAGNOSES: 1. Lactic acidosis. 2. Leukocytosis. 3. Generalized weakness. 4. Acute kidney injury. 5. Hyperkalemia. SECONDARY DIAGNOSES: 1. Pulmonary fibrosis. 2. Atrial fibrillation. 3. Follicular lymphoma. 4. Hypertension. 5. Hypothyroidism. 6. Obstructive sleep apnea (DEVEN), on continuous positive airway pressure (CPAP). 7. Dyslipidemia. 8. Insulin-dependent diabetes type 2. 9. Gastroesophageal reflux disease (GERD). PLAN: Patient will be discharged to home. Diet is 2 gram sodium, consistent carbohydrate diet. Activity is as tolerated. She will followup on 02/21/2017, at her regularly scheduled appointment with Dr. Irais Inman for followup. MEDICATIONS: Are as follows: - Eliquis 5 mg by mouth twice a day - atorvastatin 40 mg by mouth nightly - Flonase two sprays to each nostril daily - glipizide 5 mg two tablets by mouth twice a day - Lantus 64 units subcutaneous daily - Lispro insulin subcutaneous before food and nightly - ipratropium bromide every 8 hours as needed for shortness of breath via nebulizer - Xopenex via nebulizer every 8 hours as needed for shortness of breath - levothyroxine 100 mcg one by mouth daily - metoprolol tartrate 100 mg by mouth twice a day - multivitamin one tablet by mouth daily - omeprazole 40 mg by mouth daily - prednisone 10 mg by mouth daily - Phenergan 5 mg by mouth every 6 hours as needed for nausea or vomiting Medications that were held include furosemide and potassium supplementation. She will be reevaluated at her followup for any significant lower extremity edema, which is what the Lasix was for. Patient has had an echocardiogram within the last year and she does have global hypokinesis with an ejection fraction (EF) of 30-35%. Patient is discharged in a stable and satisfactory condition with no further questions at the time of discharge.
== END 2017-02-02 11:57 | disposition home or self-care (01) | DRG 641 ==
LOC: M ED 12:11 → M ED INP 16:46 → M PCU 22:19 → OBSVTOIN 01-31 16:09 → M MS4PR 02-01 13:59
PROVIDERS: ADMIT Internal Medicine; ATTEND Family Medicine
DX: E87.2 Acidosis (principal); N17.9 Acute kidney failure, unspecified; C82.90 Follicular lymphoma, unspecified, unspecified site; D72.829 Elevated white blood cell count, unspecified; E87.5 Hyperkalemia; G47.33 Obstructive sleep apnea (adult) (pediatric); E03.9 Hypothyroidism, unspecified; E78.5 Hyperlipidemia, unspecified; K21.9 Gastro-esophageal reflux disease without esophagitis; E11.9 Type 2 diabetes mellitus without complications; I10 Essential (primary) hypertension; Z79.899 Other long term (current) drug therapy; I48.2 Chronic atrial fibrillation; J84.10 Pulmonary fibrosis, unspecified; Z79.4 Long term (current) use of insulin; Z88.8 Allergy status to other drugs, medicaments and biological substances; Z91.040 Latex allergy status; Z79.01 Long term (current) use of anticoagulants

== ENCOUNTER → 2017-02-16 | Outpatient (CLI) | payer MEDICARE ==
[~2017-02-16] MED LIST changes: +ISOVUE-370 76% 100ML VIAL (Q9967) As Ordered ONE; +METO100T5 PO; +POTA20TA PO; +PROC5TA PO
--- NOTE | 2017-02-16 12:55 | REP ---
CT of the chest with IV contrast: Comparison is 11/22/2016. There is bronchiectasis accompanied by interstitial fibrosis in the lower lobes bilaterally. This is not significantly changed. There is a new small left pleural effusion, not present previously. There are chronic focal ground-glass densities in the right middle lobe and right lower lobe compatible with parenchymal scarring. There is a new subtle focal ground-glass density in the superior segment of the left lower lobe. The There is no mediastinal or hilar adenopathy. No axillary adenopathy. The thoracic aorta is unremarkable except for calcified atheroma. Cardiac size is mildly enlarged. There is no pericardial effusion. The visualized upper abdominal contents are unremarkable. There has been a cholecystectomy. Impression: Bronchiectasis accompanied by interstitial fibrosis, most predominant in the lower lobes. Focal areas of ground-glass density, unchanged, compatible with fibrosis in the right middle lobe and right lower lobe. New area of focal ground-glass density in the superior segment of the left lower lobe. There is a new small left pleural effusion. There is mild cardiomegaly, unchanged. Signed by Marty Ventura MD 02/16/2017 12:46 P
== END ==
LOC: M RAD 10:41
PROVIDERS: ATTEND Internal Medicine Pulmonary Disease
DX: J84.10 Pulmonary fibrosis, unspecified (principal); J90 Pleural effusion, not elsewhere classified; J47.9 Bronchiectasis, uncomplicated
CPT/HCPCS: 71260; Q9967

== ENCOUNTER → 2017-02-21 | Outpatient (REF) | payer MEDICARE ==
[~2017-02-21] MED LIST changes: -ISOVUE-370 76% 100ML VIAL (Q9967) As Ordered ONE
[2017-02-21 17:30] LABS: ANION GAP 7 MEQ/L (8-16); BLOOD UREA NITROGEN 9 MG/DL (7-18); CALCIUM LEVEL 8.4 MG/DL (8.8-10.2); CARBON DIOXIDE LEVEL 30 MEQ/L (21-32); CHLORIDE LEVEL 106 MEQ/L (98-107); CREATININE FOR GFR 0.84 MG/DL (0.55-1.02); GLOMERULAR FILTRATION RATE > 60.0 (>45); GLUCOSE, FASTING 127 MG/DL (80-110); POTASSIUM SERUM 3.6 MEQ/L (3.5-5.1); SODIUM LEVEL 143 MEQ/L (136-145)
== END ==
LOC: M SFHCPLAZ 15:43
PROVIDERS: ATTEND Family Medicine
DX: I50.43 Acute on chronic combined systolic (congestive) and diastolic (congestive) heart failure (principal); Z23 Encounter for immunization
CPT/HCPCS: 80048; 90662; G0008; G0463

== ENCOUNTER → 2017-03-09 | Outpatient (CLI) | payer MEDICARE ==
[2017-03-09 18:05] LABS: CALCIUM LEVEL 8.6 MG/DL (8.8-10.2); CREATININE FOR GFR 1.18 MG/DL (0.55-1.02); GLOMERULAR FILTRATION RATE 48.3 (>45); POTASSIUM SERUM 4.3 MEQ/L (3.5-5.1)
== END ==
LOC: M WUC 13:07
PROVIDERS: ATTEND Family Medicine
DX: I50.43 Acute on chronic combined systolic (congestive) and diastolic (congestive) heart failure (principal)

== ENCOUNTER → 2017-04-09 | Outpatient (CLI) | payer MEDICARE ==
--- NOTE | 2017-04-09 15:26 | REP ---
MAXILLOFACIAL CT STUDY WITHOUT CONTRAST: HISTORY: Chronic sinusitis. Comparison maxillofacial CT study is from December 21, 2016. FINDINGS: Digital guide alpine radiograph demonstrates that the patient is edentulous. The guide alpine and axial and coronal images demonstrate a lozenge-shaped density in the left side of the oral cavity noted inadvertently. Both the maxilla and the mandible are edentulous. There is moderate mucosal thickening in the maxillary sinuses bilaterally. There is also bilateral ethmoid sinus mucosal thickening, left greater than right. There is mild mucosal thickening in the sphenoid air cells. Bilateral mastoid sinus filling is seen, right greater than left. There is no evidence of abnormal fluid collection or adenopathy. The right parotid gland is surgically absent. The left parotid gland is unremarkable. No nasal polyp is seen. The ostiomeatal complexes are occluded bilaterally by mucosal thickening. There is partial opacification of the right and left frontal sinuses. No intraorbital or intracranial abnormality. There is a stable sclerotic lesion in the posterior aspect of the right maxillary alveolus, unchanged from multiple prior studies. IMPRESSION: Bilateral polysinusitis. These changes are more pronounced involving the maxillary, ethmoid, and frontal sinuses today when compared with the prior study. Signed by Carroll Huizar MD 04/09/2017 04:15 P
== END ==
LOC: M RAD 12:44
PROVIDERS: ATTEND Otolaryngology
DX: J32.9 Chronic sinusitis, unspecified (principal)

== ENCOUNTER → 2017-04-30 | Outpatient (REF) | payer MEDICARE ==
[2017-04-30 13:03] LABS: ANION GAP 8 MEQ/L (8-16); BLOOD UREA NITROGEN 26 MG/DL (7-18); CALCIUM LEVEL 8.7 MG/DL (8.8-10.2); CARBON DIOXIDE LEVEL 29 MEQ/L (21-32); CHLORIDE LEVEL 110 MEQ/L (98-107); CREATININE FOR GFR 1.01 MG/DL (0.55-1.02); FREE T4 1.31 NG/DL (0.76-1.46); GLOMERULAR FILTRATION RATE 57.9 (>45); GLUCOSE, FASTING 107 MG/DL (80-110); POTASSIUM SERUM 4.2 MEQ/L (3.5-5.1); SODIUM LEVEL 147 MEQ/L (136-145)
== END ==
LOC: M SFHCPLAZ 10:23
DX: E03.9 Hypothyroidism, unspecified (principal); I10 Essential (primary) hypertension
CPT/HCPCS: 84443

== ENCOUNTER → 2017-06-01 | Outpatient (CLI) | payer MEDICARE ==
[~2017-06-01] MED LIST changes: -/GLYB5TA OR; -/MOM400 PO; -/WARF25TA OR; -ACET65TA OR; -ALEVE PO; -AMIO20TA PO; -AMIO400T PO; -ATEN50TA2 OR; -ATOR40TA75 PO; -AVAP300T OR; -Aleve PO; -BENZ100C5 PO; -CEFD1CAP8 PO; -CEFT500T3 PO; -ELIQ5TAB PO; -FLON1SPR; -FLUTISP; -FURO40TA2 PO; -GENT80VL NEB; -GLIP5TAB8 PO; -GLYB5TA PO; -GUAI1SOL2 PO; -GUAI5ELAC PO; -HYDR-3713 PO; -HYDR25TA6 OR; -INSUHUMDS SC; -INSULANT SC; -INSULIN 70/30 SC; -INSUR SC; -IPRA2IN INH; +ISOVUE-370 76% 100ML VIAL (Q9967) As Ordered; -K-TA10TA2 PO; -KEFL500C OR; -LASI20TA PO; -LASI40TA PO; -LEVA12INH INH; -LEVA1TAB2 PO; -LEVO100T5 PO; -LEVO100T54 PO; -LEVO125T4 PO; -LEVO175T2 PO; -LOPR1TAB6 PO; -LOPR1TAB7 PO; -LORTTAB2 PO; -LORTTAB5 PO; -MEDR1TAB PO; -MEDR4TAB PO; -MEDR8TAB PO; -METH4TAB28 PO; -METO100T5 PO; -METO1TAB87 PO; -METO25TA4 PO; -NORC1TAB4 PO; -OMEP40CA2 PO; -PERC5TAB8 OR; -POTA10CA PO; -POTA20TA PO; -PRED10TA2 PO; -PRED20TA PO; -PRED5TA PO; -PRIL20CA OR; -PRIL40CA PO; -PROC5TA PO; -SENO8.6T9 PO; -SPIR25TA2 PO; -SPIR50TA2 PO; -SYNT125T PO; -SYNT150T OR; -TOBR1NEB INH; -TOPA1TAB PO; -TOPA50TA8 PO; -TUSS1CAP5 PO; -TYLE325T5 PO; -VICO5TAB OR; -VITMTA PO; -ZOCO20TA PO; -[UNRECOGNIZED DRUG - OTHER] PO; -vitamin e PO
== END ==
LOC: M RAD 15:42
DX: Z85.72 Personal history of non-Hodgkin lymphomas (principal); R59.0 Localized enlarged lymph nodes
CPT/HCPCS: Q9967

== ENCOUNTER 2017-06-12 10:47 | Day surgery (SDC) | payer MEDICARE ==
[2017-06-12] MEDS ORDERED: PROPOFOL 200 MG/20 ML VIAL As Ordered (11:14)
[2017-06-12] MEDS ORDERED: LIDOCAINE 2% INJ 100 MG/5 ML SDV (FOR ANES.) As Ordered (11:17)
[2017-06-12 13:04] LABS: BEDSIDE GLUCOSE 124 MG/DL (80-115)
[2017-06-12] MEDS ORDERED: MIDAZOLAM INJ 2 MG/2 ML VIAL (J2250) As Ordered (13:04)
[2017-06-12] MEDS ORDERED: fentaNYL 100 MCG/2 ML INJECTION (J3010) As Ordered (13:05)
[2017-06-12] MEDS ORDERED: NS 1,000 ML IV (13:15)
== END 2017-06-12 14:19 | disposition home or self-care (01) ==
LOC: M OPP 10:47
DX: Z12.11 Encounter for screening for malignant neoplasm of colon (principal); D12.2 Benign neoplasm of ascending colon; D12.0 Benign neoplasm of cecum; K57.30 Diverticulosis of large intestine without perforation or abscess without bleeding; K64.8 Other hemorrhoids; R11.10 Vomiting, unspecified; K29.70 Gastritis, unspecified, without bleeding; I48.91 Unspecified atrial fibrillation; I48.92 Unspecified atrial flutter; I11.0 Hypertensive heart disease with heart failure; I50.9 Heart failure, unspecified; Z85.72 Personal history of non-Hodgkin lymphomas; Z92.21 Personal history of antineoplastic chemotherapy; E11.9 Type 2 diabetes mellitus without complications; E16.1 Other hypoglycemia; R12 Heartburn; K21.9 Gastro-esophageal reflux disease without esophagitis; Z86.79 Personal history of other diseases of the circulatory system; R06.02 Shortness of breath; F41.9 Anxiety disorder, unspecified; R05 Cough; J84.112 Idiopathic pulmonary fibrosis; G47.30 Sleep apnea, unspecified; Z96.651 Presence of right artificial knee joint; Z88.8 Allergy status to other drugs, medicaments and biological substances; Z91.040 Latex allergy status; Z79.01 Long term (current) use of anticoagulants; Z79.899 Other long term (current) drug therapy; Z79.4 Long term (current) use of insulin; Z80.3 Family history of malignant neoplasm of breast
CPT/HCPCS: 45380

== ENCOUNTER 2017-06-21 10:54 | Emergency (ER) | payer MEDICARE ==
[2017-06-21 12:19] LABS: BASO % 0.3 % (0.0-1.0); HEMATOCRIT 37.4 % (36.0-47.0); HEMOGLOBIN 11.7 g/dl (12.0-16.0); IMMATURE GRANULOCYTE % 0.3 % (0-3.0); LYMPH # 2.7 10^3/uL (1.5-4.5); LYMPH % 31.3 % (24.0-44.0); MEAN CORPUSCULAR HEMOGLOBIN 24.1 pg (27.0-33.0); MEAN CORPUSCULAR HGB CONC 31.3 g/dl (32.0-36.5); MEAN CORPUSCULAR VOLUME 77.1 fl (80.0-96.0); MONO # 0.5 10^3/uL (0.0-0.8); MONO % 5.3 % (0.0-5.0); NEUTROPHILS # 5.5 10^3/uL (1.8-7.7); NEUTROPHILS % 62.8 % (36.0-66.0); PLATELET COUNT, AUTOMATED 227 10^3/uL (150-450); RED BLOOD COUNT 4.85 10^6/uL (4.00-5.40); RED CELL DISTRIBUTION WIDTH 17.1 % (11.5-14.5); WHITE BLOOD COUNT 8.8 10^3/uL (4.0-10.0)
[2017-06-21 12:20] LABS: VENOUS BASE EXCESS -2.6 (-2.0-2.0); VENOUS HCO3 23.1 MEQ/L (23.0-27.0); VENOUS O2 SATURATION 80.8 % (60.0-80.0); VENOUS PARTIAL PRESSURE CO2 43.6 mmHg (38.0-50.0); VENOUS PARTIAL PRESSURE O2 47.2 mmHg (30.0-50.0); VENOUS PH 7.342 UNITS (7.330-7.430); VENOUS STANDARD HCO3 21.9 MEQ/L; VENOUS TOTAL CO2 24.4 MEQ/L (24.0-28.0)
[2017-06-21 12:24] LABS: BEDSIDE GLUCOSE 96 MG/DL (80-115)
[2017-06-21] MEDS: ACETAMINOPHEN TAB 650MG DOSE (2X325MG) PO ×2 (12:30)
[2017-06-21 12:31] LABS: BEDSIDE GLUCOSE 86 MG/DL (80-115)
[2017-06-21 12:57] LABS: AMMONIA 13 uMOL/L (<32)
[2017-06-21 13:02] LABS: LACTIC ACID SEPSIS PROTOCOL 1.3 MMOL/L (0.4-2.0)
[2017-06-21 13:04] LABS: OSMOLALITY SERUM 289 MOSM/KG (280-301)
[2017-06-21 13:17] LABS: ALBUMIN 2.9 GM/DL (3.2-5.2); ALBUMIN/GLOBULIN RATIO 1.16 (1.00-1.93); ALKALINE PHOSPHATASE 85 U/L (45-117); ALT/SGPT 36 U/L (12-78); ANION GAP 9 MEQ/L (8-16); AST/SGOT 46 U/L (7-37); BILIRUBIN,DIRECT 0.1 MG/DL (0.0-0.2); BILIRUBIN,TOTAL 0.4 MG/DL (0.2-1.0); BLOOD UREA NITROGEN 21 MG/DL (7-18); CARBON DIOXIDE LEVEL 24 MEQ/L (21-32); CHLORIDE LEVEL 108 MEQ/L (98-107); CREATININE FOR GFR 1.33 MG/DL (0.55-1.30); GLOMERULAR FILTRATION RATE 42.1 (>45); GLUCOSE, FASTING 74 MG/DL (70-100); MAGNESIUM LEVEL 2.1 MG/DL (1.8-2.4); PHOSPHORUS LEVEL 3.4 MG/DL (2.5-4.9); POTASSIUM SERUM 4.5 MEQ/L (3.5-5.1); SODIUM LEVEL 141 MEQ/L (136-145); TOTAL PROTEIN 5.4 GM/DL (6.4-8.2); TROPONIN I 0.02 NG/ML (< 0.10)
[2017-06-21 13:22] LABS: CPK CREATINE PHOSPHOKINASE 129 U/L (26-192); FREE T4 0.92 NG/DL (0.76-1.46); MB/CK RELATIVE INDEX 0.77 (< OR =4)
[2017-06-21] MEDS: NS 500 ML IV ×2 (14:02)
[2017-06-21 14:17] LABS: KETONE, URINE AUTO RFX NEGATIVE (NEGATIVE); LEUKOCYTE ESTERASE UR AUTO RFX NEGATIVE (NEGATIVE); NITRITE, URINE AUTO RFX NEGATIVE (NEGATIVE); RBC, URINE AUTO RFX 0 /HPF (0-3); SPECIFIC GRAVITY UR AUTO RFX 1.024 (1.002-1.035); WBC, URINE AUTO RFX 2 /HPF (0-3)
[2017-06-21 14:18] LABS: MUCUS, URINE RFX SMALL (NEGATIVE); SQUAM EPITHELIAL CELL UR AURFX 5 /HPF (0-6)
[2017-06-21] MEDS: OSELTAMIVIR PHOSPHATE 30MG CAPSULE PO ×2 (15:37)
== END 2017-06-21 15:46 | disposition home or self-care (01) ==
LOC: M ED 10:54
DX: J09.X2 Influenza due to identified novel influenza A virus with other respiratory manifestations (principal); I10 Essential (primary) hypertension; E78.9 Disorder of lipoprotein metabolism, unspecified; E11.9 Type 2 diabetes mellitus without complications; I48.91 Unspecified atrial fibrillation; G47.33 Obstructive sleep apnea (adult) (pediatric); E07.9 Disorder of thyroid, unspecified; K21.9 Gastro-esophageal reflux disease without esophagitis; J84.10 Pulmonary fibrosis, unspecified; J45.909 Unspecified asthma, uncomplicated; Z88.8 Allergy status to other drugs, medicaments and biological substances; Z91.040 Latex allergy status; Z79.899 Other long term (current) drug therapy; Z79.01 Long term (current) use of anticoagulants; Z79.4 Long term (current) use of insulin
CPT/HCPCS: 71046

== ENCOUNTER → 2017-06-26 | Outpatient (CLI) | payer MEDICARE | LOC: M RAD 13:29 | DX: J32.4 Chronic pansinusitis (principal) | CPT/HCPCS: 70450 ==

== ENCOUNTER → 2017-07-02 | Outpatient (REF) | payer MEDICARE ==
[2017-07-02 14:04] LABS: ANION GAP 7 MEQ/L (8-16); BLOOD UREA NITROGEN 22 MG/DL (7-18); CALCIUM LEVEL 8.9 MG/DL (8.8-10.2); CARBON DIOXIDE LEVEL 30 MEQ/L (21-32); CHLORIDE LEVEL 102 MEQ/L (98-107); CREATININE FOR GFR 1.23 MG/DL (0.55-1.30); GLUCOSE, FASTING 365 MG/DL (70-100); POTASSIUM SERUM 5.1 MEQ/L (3.5-5.1); SODIUM LEVEL 139 MEQ/L (136-145)
== END ==
LOC: M SFHCPLAZ 11:22
DX: N17.9 Acute kidney failure, unspecified (principal); R78.81 Bacteremia
CPT/HCPCS: 80048

== ENCOUNTER 2017-07-17 06:02 | Day surgery (SDC) | payer MEDICARE ==
[2017-07-17] MEDS: LR 1,000 ML IV (07:05)
[2017-07-17] MEDS ORDERED: HumaLOG INSULIN (NovoLOG) PER UNIT As Ordered (07:18)
[2017-07-17 07:26] LABS: BEDSIDE GLUCOSE 224 MG/DL (83-110)
[2017-07-17] MEDS ORDERED: HumaLOG INSULIN (NovoLOG) PER UNIT SC (07:30)
[2017-07-17] MEDS: METHYLENE BLUE 0.5% (5MG/ML) 10 ML AMP (PROVAYBLUE)(Q9968 PER 1MG) As Ordered (08:07)
[2017-07-17] MEDS: EPINEPHrine 1MG/ML INJ 30ML MD-VIAL As Ordered (08:07)
[2017-07-17] MEDS ORDERED: ONDANSETRON 4MG/2ML VIAL (J2405) As Ordered ×2 (08:43→09:35)
[2017-07-17] MEDS ORDERED: ROCURONIUM BROMIDE 50 MG/5 ML VIAL As Ordered (08:43)
[2017-07-17] MEDS ORDERED: HYDROCORTISONE 100 MG/2 ML VIAL (J1720) As Ordered (08:43)
[2017-07-17] MEDS ORDERED: LIDOCAINE 2% INJ 100 MG/5 ML SDV (FOR ANES.) As Ordered (08:43)
[2017-07-17] MEDS ORDERED: MIDAZOLAM INJ 2 MG/2 ML VIAL (J2250) As Ordered (08:43)
[2017-07-17] MEDS ORDERED: PROPOFOL 200 MG/20 ML VIAL As Ordered (08:43)
[2017-07-17] MEDS ORDERED: dexameTHASONE 4 MG/ML 1ML VIAL (J1100) As Ordered (08:43)
[2017-07-17] MEDS ORDERED: fentaNYL 250 MCG/5 ML INJECTION (J3010) As Ordered (08:43)
[2017-07-17] MEDS: LIDOCAINE W/EPINEPHRINE 1% 20ML VIAL As Ordered (08:45)
[2017-07-17] MEDS ORDERED: NEOSTIGMINE 10 MG/10 ML VIAL (J2710) As Ordered (09:00)
[2017-07-17] MEDS ORDERED: GLYCOPYRROLATE INJ 0.2 MG/ML 2 ML VIAL As Ordered ×3 (09:00→09:41)
[2017-07-17] MEDS ORDERED: METOCLOPRAMIDE INJ 10MG/2ML VIAL (J2765) As Ordered (09:35)
[2017-07-17 09:37] LABS: BEDSIDE GLUCOSE 238 MG/DL (83-110)
[2017-07-17] MEDS: ONDANSETRON 4MG/2ML VIAL (J2405) IV (09:44)
[2017-07-17] MEDS: METOCLOPRAMIDE INJ 10MG/2ML VIAL (J2765) IV (09:50)
[2017-07-17] MEDS ORDERED: fentaNYL 100 MCG/2 ML INJECTION (J3010) IV (10:00)
[2017-07-17] MEDS ORDERED: LR 1,000 ML IV (10:00)
[2017-07-17] MEDS ORDERED: MEPERIDINE INJ 25 MG/ML VIAL (J2175) IV (10:00)
[2017-07-17] MEDS ORDERED: PERCOCET 5MG/325MG TAB PO (10:00)
[2017-07-18 00:30] LABS: BEDSIDE GLUCOSE 211 MG/DL (83-110)
[2017-07-18 00:30] LABS: BEDSIDE GLUCOSE 238 MG/DL (83-110)
== END 2017-07-17 11:36 | disposition home or self-care (01) ==
LOC: M SDC 06:02
DX: J32.4 Chronic pansinusitis (principal); J34.3 Hypertrophy of nasal turbinates; E03.9 Hypothyroidism, unspecified; E78.2 Mixed hyperlipidemia; E11.9 Type 2 diabetes mellitus without complications; K21.9 Gastro-esophageal reflux disease without esophagitis; I11.0 Hypertensive heart disease with heart failure; I50.32 Chronic diastolic (congestive) heart failure; J84.10 Pulmonary fibrosis, unspecified; Z79.4 Long term (current) use of insulin; Z79.899 Other long term (current) drug therapy; Z79.02 Long term (current) use of antithrombotics/antiplatelets; G47.33 Obstructive sleep apnea (adult) (pediatric); I48.91 Unspecified atrial fibrillation; Z88.8 Allergy status to other drugs, medicaments and biological substances; C82.90 Follicular lymphoma, unspecified, unspecified site; K31.84 Gastroparesis
CPT/HCPCS: 31255

== ENCOUNTER → 2017-09-19 | Outpatient (CLI) | payer MEDICARE ==
[2017-09-19 11:34] LABS: HEMATOCRIT 36.6 % (36.0-47.0); HEMOGLOBIN 11.3 g/dl (12.0-15.5); MEAN CORPUSCULAR HEMOGLOBIN 25.1 pg (27.0-33.0); MEAN CORPUSCULAR HGB CONC 30.9 g/dl (32.0-36.5); MEAN CORPUSCULAR VOLUME 81.3 fl (80.0-96.0); PLATELET COUNT, AUTOMATED 213 10^3/uL (150-450); RED CELL DISTRIBUTION WIDTH 16.4 % (11.5-14.5); WHITE BLOOD COUNT 10.6 10^3/uL (4.0-10.0)
[2017-09-19 11:44] LABS: INR 1.26; PARTIAL THROMBOPLASTIN TIME 27.6 SECONDS (26.8-37.9)
[2017-09-19 12:23] LABS: ANION GAP 6 MEQ/L (8-16); BLOOD UREA NITROGEN 26 MG/DL (7-18); CARBON DIOXIDE LEVEL 26 MEQ/L (21-32); CHLORIDE LEVEL 113 MEQ/L (98-107); CREATININE FOR GFR 1.24 MG/DL (0.55-1.30); GLOMERULAR FILTRATION RATE 45.5 (>39); GLUCOSE, FASTING 174 MG/DL (70-100); POTASSIUM SERUM 4.7 MEQ/L (3.5-5.1); SODIUM LEVEL 145 MEQ/L (136-145)
== END ==
LOC: M LAB 10:52
DX: Z01.818 Encounter for other preprocedural examination (principal); Z45.89 Encounter for adjustment and management of other implanted devices
CPT/HCPCS: 71046

== ENCOUNTER 2017-09-25 11:22 | Day surgery (SDC) | payer MEDICARE ==
[2017-09-25 12:09] LABS: BEDSIDE GLUCOSE 130 MG/DL (83-110)
[2017-09-25] MEDS: LR 1,000 ML IV (12:24)
[2017-09-25] MEDS: MUPIROCIN 2% OINT 22 GM TUBE TOP (12:24)
[2017-09-25] MEDS ORDERED: MIDAZOLAM INJ 2 MG/2 ML VIAL (J2250) As Ordered (13:14)
[2017-09-25] MEDS ORDERED: fentaNYL 100 MCG/2 ML INJECTION (J3010) As Ordered (13:14)
[2017-09-25] MEDS ORDERED: LIDOCAINE 2% INJ 100 MG/5 ML SDV (FOR ANES.) As Ordered (13:14)
[2017-09-25] MEDS ORDERED: PROPOFOL 200 MG/20 ML VIAL As Ordered (13:14)
[2017-09-25] MEDS: BUPIVACAINE LIPOSOME/PF 1.3% 20 ML VIAL (13.3MG/ML)(EXPAREL) As Ordered (14:00)
== END 2017-09-25 15:20 | disposition home or self-care (01) ==
LOC: M SDC 11:22
DX: Z45.2 Encounter for adjustment and management of vascular access device (principal); Z85.71 Personal history of Hodgkin lymphoma; I10 Essential (primary) hypertension; E11.9 Type 2 diabetes mellitus without complications; I48.2 Chronic atrial fibrillation; Z79.02 Long term (current) use of antithrombotics/antiplatelets; K21.9 Gastro-esophageal reflux disease without esophagitis; E03.9 Hypothyroidism, unspecified; E66.01 Morbid (severe) obesity due to excess calories; K31.84 Gastroparesis; J32.4 Chronic pansinusitis; Z79.899 Other long term (current) drug therapy
CPT/HCPCS: 36590

== ENCOUNTER 2017-10-30 10:20 | Emergency (ER) | payer MEDICARE ==
[2017-10-30 12:55] LABS: HEMOGLOBIN 12.3 g/dl (12.0-15.5); MEAN CORPUSCULAR HEMOGLOBIN 25.4 pg (27.0-33.0); MEAN CORPUSCULAR HGB CONC 32.4 g/dl (32.0-36.5); MEAN CORPUSCULAR VOLUME 78.5 fl (80.0-96.0); PLATELET COUNT, AUTOMATED 226 10^3/uL (150-450); RED BLOOD COUNT 4.84 10^6/uL (4.00-5.40)
[2017-10-30 13:04] LABS: ADD MANUAL DIFFER YES; DIFF SLIDE NUMBER 242; POSITIVE DIFF POS FLAG; POSITIVE MORPH POS FLAG; WHITE BLOOD COUNT 14.7 10^3/uL (4.0-10.0)
[2017-10-30 13:11] LABS: ANION GAP 7 MEQ/L (8-16); BLOOD UREA NITROGEN 35 MG/DL (7-18); CALCIUM LEVEL 8.6 MG/DL (8.8-10.2); CARBON DIOXIDE LEVEL 29 MEQ/L (21-32); CHLORIDE LEVEL 110 MEQ/L (98-107); CK-MB VALUE MASS 2.6 NG/ML (<3.6); CPK CREATINE PHOSPHOKINASE 103 U/L (26-192); CREATININE FOR GFR 1.55 MG/DL (0.55-1.30); GLOMERULAR FILTRATION RATE 35.2 (>39); GLUCOSE, FASTING 60 MG/DL (70-100); MB/CK RELATIVE INDEX 2.52 (< OR =4); POTASSIUM SERUM 4.2 MEQ/L (3.5-5.1); SODIUM LEVEL 146 MEQ/L (136-145); TROPONIN I < 0.02 NG/ML (< 0.10)
[2017-10-30 13:37] LABS: ATYPICAL LYMPH 3 % (0-5); EOSINOPHILS 5 % (0-5); LYMPHOCYTES 49 % (16-52); MONOCYTES 2 % (0-8); NEUTROPHILS 41 % (35-75); PLATELET ESTIMATE NORMAL (NORMAL)
[2017-10-30 13:38] LABS: ANISOCYTOSIS 1+; MICROCYTOSIS 1+; POIKILOCYTOSIS 1+
[2017-10-30] MEDS: NS 500 ML IV (13:45)
[2017-10-30 13:48] LABS: BEDSIDE GLUCOSE 52 MG/DL (83-110)
[2017-10-30] MEDS: ONDANSETRON 4MG/2ML VIAL (J2405) IV (14:00)
[2017-10-30 14:37] LABS: BEDSIDE GLUCOSE 82 MG/DL (83-110)
[2017-10-30 16:51] LABS: CK-MB VALUE MASS 2.4 NG/ML (<3.6); CPK CREATINE PHOSPHOKINASE 88 U/L (26-192); MB/CK RELATIVE INDEX 2.72 (< OR =4); TROPONIN I < 0.02 NG/ML (< 0.10)
== END 2017-10-30 18:51 | disposition home or self-care (01) ==
LOC: M ED 10:20
DX: I48.91 Unspecified atrial fibrillation (principal); R07.89 Other chest pain; I12.9 Hypertensive chronic kidney disease with stage 1 through stage 4 chronic kidney disease, or unspecified chronic kidney disease; N18.3 Chronic kidney disease, stage 3 (moderate); E86.0 Dehydration; E11.22 Type 2 diabetes mellitus with diabetic chronic kidney disease; E78.00 Pure hypercholesterolemia, unspecified; J45.909 Unspecified asthma, uncomplicated; E07.9 Disorder of thyroid, unspecified; K21.9 Gastro-esophageal reflux disease without esophagitis; G47.33 Obstructive sleep apnea (adult) (pediatric); Z88.8 Allergy status to other drugs, medicaments and biological substances; Z91.040 Latex allergy status; Z79.899 Other long term (current) drug therapy; Z79.01 Long term (current) use of anticoagulants; Z79.4 Long term (current) use of insulin
CPT/HCPCS: J2405

== ENCOUNTER → 2017-10-30 | Outpatient (CLI) | payer MEDICARE ==
[2017-10-30 13:25] LABS: ANION GAP 9 MEQ/L (8-16); BLOOD UREA NITROGEN 35 MG/DL (7-18); CALCIUM LEVEL 8.8 MG/DL (8.8-10.2); CARBON DIOXIDE LEVEL 28 MEQ/L (21-32); CHLORIDE LEVEL 106 MEQ/L (98-107); CHOLESTEROL LEVEL 169 MG/DL (<200); CREATININE FOR GFR 1.59 MG/DL (0.55-1.30); GLOMERULAR FILTRATION RATE 34.2 (>39); GLUCOSE, FASTING 163 MG/DL (70-100); HDL CHOLESTEROL 44 MG/DL (>40); NON-HDL-C 125 MG/DL; POTASSIUM SERUM 4.2 MEQ/L (3.5-5.1); SODIUM LEVEL 143 MEQ/L (136-145); TRIGLYCERIDES LEVEL 185 MG/DL (<150)
[2017-10-30 14:05] LABS: MALB URINE SIEMENS 34.4 MG/L; MAU/CREAT RATIO 16.1 MCG/MG (0.0-30.0)
== END ==
LOC: M WUC 08:37
DX: E11.22 Type 2 diabetes mellitus with diabetic chronic kidney disease (principal); E78.00 Pure hypercholesterolemia, unspecified

== ENCOUNTER → 2017-11-03 | Outpatient (CLI) | payer MEDICARE ==
[2017-11-03 17:15] LABS: ANION GAP 7 MEQ/L (8-16); BLOOD UREA NITROGEN 23 MG/DL (7-18); CALCIUM LEVEL 8.5 MG/DL (8.8-10.2); CARBON DIOXIDE LEVEL 27 MEQ/L (21-32); CHLORIDE LEVEL 113 MEQ/L (98-107); CREATININE FOR GFR 1.17 MG/DL (0.55-1.30); GLOMERULAR FILTRATION RATE 48.7 (>39); GLUCOSE, FASTING 122 MG/DL (70-100); POTASSIUM SERUM 4.2 MEQ/L (3.5-5.1); SODIUM LEVEL 147 MEQ/L (136-145)
== END ==
LOC: M WUC 10:38
DX: N18.3 Chronic kidney disease, stage 3 (moderate) (principal)
CPT/HCPCS: 80048

== ENCOUNTER → 2017-11-19 | Outpatient (REF) | payer MEDICARE ==
[2017-11-19 14:26] LABS: ANION GAP 9 MEQ/L (8-16); BLOOD UREA NITROGEN 19 MG/DL (7-18); CALCIUM LEVEL 8.6 MG/DL (8.8-10.2); CARBON DIOXIDE LEVEL 29 MEQ/L (21-32); CHLORIDE LEVEL 107 MEQ/L (98-107); CREATININE FOR GFR 1.16 MG/DL (0.55-1.30); GLOMERULAR FILTRATION RATE 49.2 (>39); GLUCOSE, FASTING 235 MG/DL (70-100); SODIUM LEVEL 145 MEQ/L (136-145)
== END ==
LOC: M SFHCPLAZ 12:03
DX: E87.0 Hyperosmolality and hypernatremia (principal); Z23 Encounter for immunization
CPT/HCPCS: 80048

== ENCOUNTER 2018-01-11 08:30 | Inpatient (IN) | payer MEDICARE ==
[2018-01-11] MEDS ORDERED: METOPROLOL 5 MG/5 ML VIAL IV (09:00)
[2018-01-11] MEDS: FLUTICASONE PROP 0.05% NASAL SPRAY 16 GM (FLONASE) (09:00)
[2018-01-11 09:08] LABS: HEMATOCRIT 43.4 % (36.0-47.0); HEMOGLOBIN 13.7 g/dl (12.0-15.5); MEAN CORPUSCULAR HEMOGLOBIN 25.2 pg (27.0-33.0); MEAN CORPUSCULAR HGB CONC 31.6 g/dl (32.0-36.5); MEAN CORPUSCULAR VOLUME 79.8 fl (80.0-96.0); PLATELET COUNT, AUTOMATED 272 10^3/uL (150-450); RED BLOOD COUNT 5.44 10^6/uL (4.00-5.40); RED CELL DISTRIBUTION WIDTH 16.8 % (11.5-14.5)
[2018-01-11 09:09] LABS: ADD MANUAL DIFFER YES; DIFF SLIDE NUMBER 123; POSITIVE DIFF POS FLAG; WHITE BLOOD COUNT 15.6 10^3/uL (4.0-10.0)
[2018-01-11] MEDS: ASPIRIN 81 MG CHEW TABLET PO (09:10)
[2018-01-11] MEDS: METOPROLOL 5 MG/5 ML VIAL IV ×3 (09:12→09:32)
[2018-01-11 09:21] LABS: BANDS 1 % (< 11); EOSINOPHILS 3 % (0-5); LYMPHOCYTES 45 % (16-52); MONOCYTES 4 % (0-8); NEUTROPHILS 47 % (35-75)
[2018-01-11 09:22] LABS: PLATELET ESTIMATE NORMAL (NORMAL)
[2018-01-11 09:25] LABS: INR 1.16
[2018-01-11 09:29] LABS: PARTIAL THROMBOPLASTIN TIME 40.5 SECONDS (25.4-37.6)
[2018-01-11 09:33] LABS: ALBUMIN 3.4 GM/DL (3.2-5.2); ALBUMIN/GLOBULIN RATIO 1.31 (1.00-1.93); ALKALINE PHOSPHATASE 110 U/L (45-117); ALT/SGPT 30 U/L (12-78); ANION GAP 9 MEQ/L (8-16); AST/SGOT 20 U/L (7-37); BILIRUBIN,DIRECT 0.2 MG/DL (0.0-0.2); BILIRUBIN,TOTAL 0.7 MG/DL (0.2-1.0); BLOOD UREA NITROGEN 43 MG/DL (7-18); CARBON DIOXIDE LEVEL 25 MEQ/L (21-32); CHLORIDE LEVEL 108 MEQ/L (98-107); CPK CREATINE PHOSPHOKINASE 96 U/L (26-192); CREATININE FOR GFR 1.71 MG/DL (0.55-1.30); FREE T4 1.19 NG/DL (0.76-1.46); GLOMERULAR FILTRATION RATE 31.4 (>39); GLUCOSE, FASTING 214 MG/DL (70-100); LIPASE 276 U/L (73-393); POTASSIUM SERUM 5.1 MEQ/L (3.5-5.1); SODIUM LEVEL 142 MEQ/L (136-145); TROPONIN I < 0.02 NG/ML (< 0.10)
[2018-01-11] MEDS: ONDANSETRON 4MG/2ML VIAL (J2405) IV (10:30)
[2018-01-11] MEDS: METOPROLOL TART 50 MG TAB PO (10:34)
[2018-01-11] MEDS ORDERED: GLUCAGON FOR INJ 1 MG VIAL (J1610) SC (11:30)
[2018-01-11] MEDS ORDERED: GLUCOSE 4 GM CHEW TABLET PO (11:30)
[2018-01-11] MEDS ORDERED: DEXTROSE 50% 50 ML SYRINGE IV (11:30)
[2018-01-11] MEDS ORDERED: ACETAMINOPHEN TAB 650MG DOSE (2X325MG) PO (11:30)
[2018-01-11] MEDS: NS 500 ML IV ×2 (11:33→16:30)
[2018-01-11] MEDS ORDERED: diltiaZEM 125 MG in NS 100 ML IV (12:00)
[2018-01-11 13:01] LABS: BEDSIDE GLUCOSE 186 MG/DL (83-110)
[2018-01-11] MEDS: LEVEMIR (INSULIN DETEMIR) 1 UNITS/0.01ML SC (13:07)
[2018-01-11] MEDS: HumaLOG INSULIN (NovoLOG) PER UNIT SC ×3 (13:14→21:00)
[2018-01-11] MEDS: NS 250 ML IV (13:45)
[2018-01-11 14:17] LABS: ERYTHROCYTE SEDIMENTATION RATE 7 mm/hr (0-30)
[2018-01-11 14:29] LABS: LACTIC ACID SEPSIS PROTOCOL 1.7 MMOL/L (0.4-2.0)
[2018-01-11] MEDS: DIGOXIN INJ 0.5 MG/2 ML AMP (J1160) IV (14:40)
[2018-01-11 14:52] LABS: C REACTIVE PROTEIN QUANTITATIV < 0.30 MG/DL (0.00-0.30)
[2018-01-11] MEDS ORDERED: SLF 3 ML SYR IV (16:15)
[2018-01-11 16:24] LABS: CPK CREATINE PHOSPHOKINASE 73 U/L (26-192); MB/CK RELATIVE INDEX 2.88 (< OR =4); TROPONIN I < 0.02 NG/ML (< 0.10)
[2018-01-11 17:11] LABS: BEDSIDE GLUCOSE 187 MG/DL (83-110)
[2018-01-11 17:47] LABS: APPEARANCE, URINE HAZY (CLEAR); BACTERIA, URINE AUTO NEGATIVE (NEGATIVE); BILIRUBIN, URINE AUTO NEGATIVE (NEGATIVE); BLOOD, URINE BLOOD NEGATIVE (NEGATIVE); COLOR, URINE YELLOW (YELLOW); GLUCOSE, URINE (UA) AUTO NEGATIVE (NEGATIVE); KETONE, URINE AUTO NEGATIVE (NEGATIVE); LEUKOCYTE ESTERASE, URINE AUTO 2+ (NEGATIVE); MUCUS, URINE SMALL (NEGATIVE); NITRITE, URINE AUTO NEGATIVE (NEGATIVE); PROTEIN, URINE AUTO NEGATIVE (NEGATIVE); RBC, URINE AUTO 2 /HPF (0-3); SPECIFIC GRAVITY URINE AUTO 1.017 (1.002-1.035); SQUAMOUS EPITHELIAL CELL UR AU 1 /HPF (0-6); UROBILINOGEN, URINE AUTO 0.2 mg/dL (0.0-2.0); WBC, URINE AUTO 15 /HPF (0-3)
[2018-01-11 19:44] LABS: CPK CREATINE PHOSPHOKINASE 85 U/L (26-192); MB/CK RELATIVE INDEX 2.71 (< OR =4); TROPONIN I < 0.02 NG/ML (< 0.10)
[2018-01-11 21:37] LABS: BEDSIDE GLUCOSE 237 MG/DL (83-110)
[2018-01-11] MEDS: ATORVASTATIN 20 MG TAB PO (23:03)
[2018-01-11] MEDS: APIXABAN 5 MG TAB (ELIQUIS) PO (23:03)
[2018-01-11] MEDS: SLF 3 ML SYR IV (23:04)
[2018-01-12 03:31] LABS: HEMATOCRIT 34.3 % (36.0-47.0); MEAN CORPUSCULAR HEMOGLOBIN 25.1 pg (27.0-33.0); MEAN CORPUSCULAR HGB CONC 31.2 g/dl (32.0-36.5); MEAN CORPUSCULAR VOLUME 80.5 fl (80.0-96.0); PLATELET COUNT, AUTOMATED 208 10^3/uL (150-450); RED BLOOD COUNT 4.26 10^6/uL (4.00-5.40); RED CELL DISTRIBUTION WIDTH 16.9 % (11.5-14.5)
[2018-01-12 03:46] LABS: HEMOGLOBIN 10.7 g/dl (12.0-15.5)
[2018-01-12 03:53] LABS: CPK CREATINE PHOSPHOKINASE 74 U/L (26-192); MB/CK RELATIVE INDEX 2.84 (< OR =4); TROPONIN I < 0.02 NG/ML (< 0.10)
[2018-01-12 04:02] LABS: ANION GAP 8 MEQ/L (8-16); BLOOD UREA NITROGEN 41 MG/DL (7-18); CALCIUM LEVEL 8.1 MG/DL (8.8-10.2); CARBON DIOXIDE LEVEL 23 MEQ/L (21-32); CHLORIDE LEVEL 112 MEQ/L (98-107); CREATININE FOR GFR 1.37 MG/DL (0.55-1.30); DIGOXIN LEVEL 0.3 NG/ML (0.5-2.0); GLOMERULAR FILTRATION RATE 40.6 (>39); GLUCOSE, FASTING 157 MG/DL (70-100); MAGNESIUM LEVEL 2.1 MG/DL (1.8-2.4); POTASSIUM SERUM 4.5 MEQ/L (3.5-5.1); SODIUM LEVEL 143 MEQ/L (136-145)
[2018-01-12] MEDS: LEVOTHYROXINE 100MCG TABLET (0.1MG) PO (05:52)
[2018-01-12] MEDS: SLF 3 ML SYR IV ×3 (05:53→20:31)
[2018-01-12] MEDS: HumaLOG INSULIN (NovoLOG) PER UNIT SC ×4 (09:17→20:35)
[2018-01-12] MEDS: LEVEMIR (INSULIN DETEMIR) 1 UNITS/0.01ML SC (09:17)
[2018-01-12] MEDS: OMEPRAZOLE 20 MG CAP PO (09:18)
[2018-01-12] MEDS: POTASSIUM CHLORIDE 10 MEQ SR TABLET PO (09:18)
[2018-01-12] MEDS: METOPROLOL TARTRATE 100 MG TAB PO ×2 (09:18→20:31)
[2018-01-12] MEDS: MULTIVITAMINS/MINERALS THERAP 1 TAB PO (09:19)
[2018-01-12] MEDS: APIXABAN 5 MG TAB (ELIQUIS) PO ×2 (09:19→20:31)
[2018-01-12] MEDS: FLUTICASONE PROP 0.05% NASAL SPRAY 16 GM (FLONASE) (11:17)
[2018-01-12 12:11] LABS: BEDSIDE GLUCOSE 225 MG/DL (83-110)
[2018-01-12 16:44] LABS: BEDSIDE GLUCOSE 225 MG/DL (83-110)
[2018-01-12] MEDS: ATORVASTATIN 20 MG TAB PO (20:30)
[2018-01-12 20:31] LABS: BEDSIDE GLUCOSE 251 MG/DL (83-110)
[2018-01-12] MEDS: DIGOXIN 0.125 MG TAB PO (20:31)
[2018-01-13] MEDS: LEVOTHYROXINE 100MCG TABLET (0.1MG) PO (05:47)
[2018-01-13] MEDS: SLF 3 ML SYR IV (05:47)
[2018-01-13] MEDS ORDERED: FLECAINIDE 50MG TABLET PO (06:45)
[2018-01-13 06:48] LABS: HEMATOCRIT 34.8 % (36.0-47.0); HEMOGLOBIN 10.9 g/dl (12.0-15.5); MEAN CORPUSCULAR HEMOGLOBIN 25.3 pg (27.0-33.0); MEAN CORPUSCULAR HGB CONC 31.3 g/dl (32.0-36.5); MEAN CORPUSCULAR VOLUME 80.7 fl (80.0-96.0); PLATELET COUNT, AUTOMATED 227 10^3/uL (150-450); RED BLOOD COUNT 4.31 10^6/uL (4.00-5.40); RED CELL DISTRIBUTION WIDTH 16.5 % (11.5-14.5); WHITE BLOOD COUNT 8.8 10^3/uL (4.0-10.0)
[2018-01-13 07:07] LABS: ANION GAP 9 MEQ/L (8-16); BLOOD UREA NITROGEN 29 MG/DL (7-18); CALCIUM LEVEL 8.3 MG/DL (8.8-10.2); CARBON DIOXIDE LEVEL 24 MEQ/L (21-32); CHLORIDE LEVEL 111 MEQ/L (98-107); CREATININE FOR GFR 1.16 MG/DL (0.55-1.30); GLOMERULAR FILTRATION RATE 49.2 (>39); GLUCOSE, FASTING 153 MG/DL (70-100); POTASSIUM SERUM 4.4 MEQ/L (3.5-5.1); SODIUM LEVEL 144 MEQ/L (136-145)
[2018-01-13 07:42] LABS: DIGOXIN LEVEL 0.5 NG/ML (0.5-2.0)
[2018-01-13] MEDS: DIGOXIN 0.125 MG TAB PO (08:21)
[2018-01-13] MEDS: APIXABAN 5 MG TAB (ELIQUIS) PO (08:21)
[2018-01-13] MEDS: OMEPRAZOLE 20 MG CAP PO (08:21)
[2018-01-13] MEDS: POTASSIUM CHLORIDE 10 MEQ SR TABLET PO (08:22)
[2018-01-13] MEDS: MULTIVITAMINS/MINERALS THERAP 1 TAB PO (08:22)
[2018-01-13] MEDS: FUROSEMIDE 40 MG TAB PO (08:22)
[2018-01-13] MEDS: METOPROLOL TARTRATE 100 MG TAB PO (08:23)
[2018-01-13] MEDS: LEVEMIR (INSULIN DETEMIR) 1 UNITS/0.01ML SC (08:23)
[2018-01-13] MEDS: HumaLOG INSULIN (NovoLOG) PER UNIT SC ×2 (08:23→13:25)
[2018-01-13] MEDS: FLUTICASONE PROP 0.05% NASAL SPRAY 16 GM (FLONASE) (08:26)
[2018-01-13] MEDS: ONDANSETRON 4MG/2ML VIAL (J2405) IV (09:29)
[2018-01-13] MEDS: METOCLOPRAMIDE INJ 10MG/2ML VIAL (J2765) IV (09:56)
[2018-01-13] MEDS: cloNIDine 0.1 MG TAB PO (09:56)
[2018-01-14 03:08] LABS: BEDSIDE GLUCOSE 220 MG/DL (83-110)
[2018-01-14 03:08] LABS: BEDSIDE GLUCOSE 228 MG/DL (83-110)
== END 2018-01-13 13:52 | disposition home or self-care (01) | DRG 309 ==
LOC: M MSPAV 01-12 21:52 → M ED 08:30 → M ED INP 11:16 → M PCU 15:06
DX: I48.0 Paroxysmal atrial fibrillation (principal); N17.9 Acute kidney failure, unspecified; I50.32 Chronic diastolic (congestive) heart failure; C82.90 Follicular lymphoma, unspecified, unspecified site; I13.0 Hypertensive heart and chronic kidney disease with heart failure and stage 1 through stage 4 chronic kidney disease, or unspecified chronic kidney disease; E03.9 Hypothyroidism, unspecified; E78.5 Hyperlipidemia, unspecified; E11.43 Type 2 diabetes mellitus with diabetic autonomic (poly)neuropathy; K21.9 Gastro-esophageal reflux disease without esophagitis; G47.33 Obstructive sleep apnea (adult) (pediatric); J45.909 Unspecified asthma, uncomplicated; J84.10 Pulmonary fibrosis, unspecified; I27.20 Pulmonary hypertension, unspecified; I08.3 Combined rheumatic disorders of mitral, aortic and tricuspid valves; Z96.651 Presence of right artificial knee joint; Z88.8 Allergy status to other drugs, medicaments and biological substances; Z79.899 Other long term (current) drug therapy; Z79.4 Long term (current) use of insulin; D72.829 Elevated white blood cell count, unspecified; H35.30 Unspecified macular degeneration; E78.00 Pure hypercholesterolemia, unspecified; Z79.01 Long term (current) use of anticoagulants; N18.3 Chronic kidney disease, stage 3 (moderate)

== ENCOUNTER → 2018-01-16 | Outpatient (REF) | payer MEDICARE ==
[2018-01-16 13:45] LABS: RETIC HEMOGLOBIN EQUIVALENT 28.2 pg (24-36); RETICULOCYTE # 98.9 10^9/L (17-77)
[2018-01-16 15:11] LABS: FERRITIN 29 NG/ML (8-252); FREE T3 2.8 PG/ML (2.2-4.0); FREE T4 1.29 NG/DL (0.76-1.46); IRON (FE) 51 UG/DL (50-170); PERCENT SATURATION 15.2 % (13.2-45.0); TOTAL IRON BINDING CAPACITY 336 UG/DL (250-450)
[2018-01-17 08:06] LABS: TRANSFERRIN 275 mg/dL (200-370)
== END ==
LOC: M SFHCPLAZ 11:40
DX: D50.9 Iron deficiency anemia, unspecified (principal); E03.9 Hypothyroidism, unspecified
CPT/HCPCS: 84443

== ENCOUNTER → 2018-01-22 | Outpatient (CLI) | payer MEDICARE | LOC: M PLARAD 12:31 | DX: C85.80 Other specified types of non-Hodgkin lymphoma, unspecified site (principal); R91.8 Other nonspecific abnormal finding of lung field | CPT/HCPCS: 78815 ==

== ENCOUNTER → 2018-02-18 | Outpatient (REF) | payer MEDICARE | LOC: M SFHCPLAZ 15:54 | DX: C44.399 Other specified malignant neoplasm of skin of other parts of face (principal); Z23 Encounter for immunization | CPT/HCPCS: 88305 ==

== ENCOUNTER → 2018-02-26 | Outpatient (REF) | payer MEDICARE | LOC: M LAB REF 15:21 | DX: H10.9 Unspecified conjunctivitis (principal) | CPT/HCPCS: 87102 ==

== ENCOUNTER → 2018-05-27 | Outpatient (REF) | payer MEDICARE ==
[~2018-05-27] MED LIST changes: +/GLYB5TA OR; +/MOM400 PO; +/WARF25TA OR; +ACET65TA OR; +ALEVE PO; +AMIO20TA PO; +AMIO400T PO; +ATEN50TA2 OR; +ATOR40TA75 PO; +AVAP300T OR; +AZIT-12 PO; +Aleve PO; +BENZ-18 PO; +BESI0.6S OS; +CEFD1CAP8 PO; +CEFD300CAP PO; +CEFT500T3 PO; +DIGO0.12 PO; +DIGO0.127 PO; +DOXY20TA4 PO; +ELIQ5TAB PO; +FLON1SPR; +FLUTISP; +FURO40TA2 PO; +GENT80VL NEB; +GLIP5TAB8 PO; +GLYB5TA PO; +GUAI1SOL2 PO; +GUAI1SOL7 PO; +HYDR-3713 PO; +HYDR25TA6 OR; +INSUHUMDS SC; +INSULANT SC; +INSULIN 70/30 SC; +INSUR SC; +IPRA2IN INH; -ISOVUE-370 76% 100ML VIAL (Q9967) As Ordered; +K-TA10TA2 PO; +K-TA1TAB PO; +KEFL500C OR; +KLOR10TA76 PO; +KLOR20TA42 PO; +LASI20TA3 PO; +LASI40TA9 PO; +LEVA12INH INH; +LEVA1TAB2 PO; +LEVO100T5 PO; +LEVO100T54 PO; +LEVO125T4 PO; +LEVO175T2 PO; +LOPR1TAB6 PO; +LOPR1TAB7 PO; +LORTTAB2 PO; +LORTTAB5 PO; +LOTE0.5G OS; +MEDR1TAB PO; +MEDR4TAB PO; +MEDR8TAB PO; +METH4TAB28 PO; +METO100T5 PO; +METO1TAB87 PO; +METO25TA4 PO; +NORC1TAB4 PO; +OMEP40CA2 PO; +PERC5TAB8 OR; +PRED10TA2 PO; +PRED1SUS2; +PRED20TA PO; +PRED5TA PO; +PRIL20CA OR; +PRIL20TA2 PO; +PRIL40CA PO; +PROC5TA PO; +REFR1DRO6 OS; +SENO8.6T9 PO; +SPIR-10 PO; +SPIR50TA4 PO; +SYNT125T PO; +SYNT150T OR; +TAMI30CA PO; +TOBR1NEB INH; +TOPA1TAB PO; +TOPA50TA8 PO; +TUSS1CAP5 PO; +TYLE325T5 PO; +VALA500T5 PO; +VICO5TAB OR; +VITA500T88 PO; +VITMTA PO; +ZOCO20TA PO; +ZOFR4TAB16 PO; +[UNRECOGNIZED DRUG - OTHER] PO; +vitamin e PO
[2018-05-27 16:18] LABS: HEMATOCRIT 42.8 % (36.0-47.0); HEMOGLOBIN 13.3 g/dl (12.0-15.5); MEAN CORPUSCULAR HEMOGLOBIN 27.3 pg (27.0-33.0); MEAN CORPUSCULAR HGB CONC 31.1 g/dl (32.0-36.5); MEAN CORPUSCULAR VOLUME 87.7 fl (80.0-96.0); PLATELET COUNT, AUTOMATED 261 10^3/uL (150-450); RED BLOOD COUNT 4.88 10^6/uL (4.00-5.40); WHITE BLOOD COUNT 12.7 10^3/uL (4.0-10.0)
[2018-05-27 17:00] LABS: CALCIUM LEVEL 9.3 MG/DL (8.8-10.2); CREATININE FOR GFR 1.3 MG/DL (0.55-1.30); GLOMERULAR FILTRATION RATE 43.1 (>39); POTASSIUM SERUM 4.5 MEQ/L (3.5-5.1); THYROID STIMULATING HORMONE 25.2 uIU/ML (0.358-3.740)
== END ==
LOC: M SFHCPLAZ 14:20
PROVIDERS: ATTEND Family Medicine
DX: Z01.818 Encounter for other preprocedural examination (principal); D50.9 Iron deficiency anemia, unspecified; I10 Essential (primary) hypertension; E03.9 Hypothyroidism, unspecified
CPT/HCPCS: 36415; 80048; 84443; 85027; G0463

== ENCOUNTER 2018-06-13 09:45 | Day surgery (SDC) | payer MEDICARE ==
[~2018-06-13] VITALS: Ht 154.9 cm; Wt 83.7 kg
[~2018-06-13 09:45] MED LIST changes: +ACETAMINOPHEN 325 MG TAB PO PRN; -ZOFR4TAB16 PO
[2018-06-13] MEDS ORDERED: MANNITOL 20% IV ONE (10:15)
[2018-06-13] MEDS ORDERED: POVIDONE-IODINE 5% OPHTH PREP SOL 30ML As Ordered ONE (10:52)
[2018-06-13] MEDS ORDERED: HEALON DUET PRO(HEALON 10MG/ML 0.55ML & HEALON ENDOCOAT 30MG/ML 0.85ML) As Ordered ONE (10:52)
[2018-06-13] MEDS ORDERED: ACETYLCHOLINE OPHTH SOLN 1% 2ML (MIOCHOL-E) As Ordered ONE ×2 (10:52→14:38)
[2018-06-13] MEDS ORDERED: TRIAMCINOLONE PRES FR 40 MG/ML 1ML(TRIESENCE)(OR EYE ONLY)(J3300 PER 1MG) As Ordered ONE (10:52)
[2018-06-13] MEDS ORDERED: GENTAMICIN SULF INJ 80MG/2ML VIAL (J1580) As Ordered ONE (10:53)
[2018-06-13] MEDS ORDERED: VANCOMYCIN HCL 500 MG/10 ML VIAL (J3370) As Ordered ONE (10:54)
[2018-06-13] MEDS ORDERED: dexameTHASONE 4 MG/ML 1ML VIAL (J1100) As Ordered ONE (10:57)
[2018-06-13] MEDS ORDERED: MIDAZOLAM INJ 2 MG/2 ML VIAL (J2250) As Ordered ONE (10:57)
[2018-06-13] MEDS ORDERED: ONDANSETRON 4MG/2ML VIAL (J2405) As Ordered ONE ×2 (10:57→17:08)
[2018-06-13] MEDS ORDERED: fentaNYL 100 MCG/2 ML INJECTION (J3010) As Ordered ONE ×2 (10:57→14:26)
[2018-06-13] MEDS ORDERED: ROCURONIUM BROMIDE 50 MG/5 ML VIAL As Ordered ONE ×2 (10:58→13:19)
[2018-06-13] MEDS ORDERED: PROPOFOL 200 MG/20 ML VIAL As Ordered ONE (10:58)
[2018-06-13] MEDS ORDERED: LIDOCAINE 2% INJ 100 MG/5 ML SDV (FOR ANES.) As Ordered ONE (10:58)
[2018-06-13] MEDS ORDERED: ZOFR4TAB16 PO (11:01)
[2018-06-13] MEDS ORDERED: ePHEDrine SULFATE 25 MG/5 ML(5MG/ML) SYRINGE As Ordered ONE (12:42)
[2018-06-13] MEDS ORDERED: SUGAMMADEX SODIUM 500 MG/5 ML VIAL (BRIDION) As Ordered ONE (12:46)
[2018-06-13] MEDS ORDERED: BALANCED SALT IRRIGATION SOLUTION 500ML BAG (FOR OR EYE MACHINE) As Ordered ONE (14:12)
[2018-06-13] MEDS ORDERED: FLUORESCEIN OPHTH 1 MG STRIP As Ordered ONE (14:23)
[2018-06-13] MEDS ORDERED: TOBRADEX OPHTH OINT 3.5 GM As Ordered ONE (14:25)
[2018-06-13] MEDS ORDERED: PERCOCET 5MG/325MG TAB PO PRN (15:45)
[2018-06-13] MEDS ORDERED: LR 1,000 ML IV SCH (15:45)
[2018-06-13] MEDS ORDERED: AcetaZOLAMIDE 500 MG ER CAP PO ONE (15:45)
[2018-06-13] MEDS ORDERED: fentaNYL 100 MCG/2 ML INJECTION (J3010) IV PRN (15:45)
[2018-06-13] MEDS ORDERED: HYDROMORPHONE HCL 0.5 MG/ 0.5 ML SYRINGE (J1170 PER 1) IV PRN (15:45)
[2018-06-13] MEDS ORDERED: ONDANSETRON 4MG/2ML VIAL (J2405) IV PRN ×2 (15:45→17:15)
[2018-06-13] MEDS ORDERED: TRIMETHOBENZAMIDE 300 MG CAP PO PRN (15:45)
[2018-06-13] MEDS ORDERED: hydrALAZINE INJ 20 MG/ML VIAL As Ordered ONE (16:05)
[2018-06-13] MEDS: hydrALAZINE INJ 20 MG/ML VIAL IV SCH ×2 (16:10→16:20)
[2018-06-13 16:20] VITALS: BP 179/77
[2018-06-13] MEDS ORDERED: ACETAMINOPHEN TAB 650MG DOSE (2X325MG) PO PRN (17:15)
[2018-06-13 19:45] VITALS: BP 161/71
--- NOTE | 2018-06-15 08:00 | RO ---
DATE OF PROCEDURE: 06/13/2018 PREOPERATIVE DIAGNOSES: 1. Corneal scar. 2. Secondary corneal edema. 3. History of infectious keratitis. 4. History of proliferative diabetic retinopathy. POSTOPERATIVE DIAGNOSES: 1. Corneal scar. 2. Secondary corneal edema. 3. History of infectious keratitis. 4. History of proliferative diabetic retinopathy. PROCEDURE: 1. Penetrating keratoplasty of the left eye. (8.5 mm patient/9.0 mm donor). 2. Superior peripheral iridectomy. 3. Anterior chamber washout. 4. Tarsorrhaphy of the left eye. SURGEON: Dr. Bird Torres REGULATORY AFFAIRS STRATEGY SPECIALIST: ANESTHESIA: General. SPECIMENS: 1. Patient conjunctiva. 2. Donor corneal scleral rim. 3. Patient cornea. DESCRIPTION OF PROCEDURE: The patient was seen and identified in the preoperative area, consents were reviewed and surgical eye was marked. Patient received 20% Mannitol infusion one hour prior to entering the operating room. The patient was then transferred to the operating room. The correct side was reidentified. The patient was then placed under general anesthesia per the anesthesia protocol. Intraocular pressure was then lowered with use of a Honan balloon for approximately 10 minutes to soften the eye as well as gentle digital massage. The eye was then prepped and draped in a sterile fashion. The upper eyelids were isolated with Tegaderm tape and the eyelids were held open with a adjustable speculum. A Flieringa ring was placed onto the sclera and then secured into position with four interrupted 5-0 nylon sutures. The patient's cornea center was marked and then patient cornea was sized. Using an 8.5 mm trephine a alycia was placed on the epithelium. The size was determined to be appropriate. Attention was then turned to the donor cornea. The donor cornea was placed on a Cohen donor punch and the donor cornea was punched. The unused tissue was removed and sent to pathology and microbiology. Attention back turned toward the host cornea. Given the degree of conjunctialization with overgrowth onto the cornea, a 360 degrees peritomy was performed and then a 2 mm 360 degrees conjunctival resection was performed to identify the patient's corneal limbus. There was bleeding involved and gentle cautery was applied to the tips of the bleeding conjunctival edges. At that time, the central host cornea was partially excised with an 8.5 mm vacuum Trephine and then a paracentesis incision was made. Miochol was placed and then Healon was placed into the anterior chamber. Using right-going forceps and then left-going corneal forceps, the host cornea was fully excised, removed and sent to pathology. Of note, there was a moderate degree of neovascularization of the iris present upon host cornea removal which was not visible preoperatively. With special precaution to avoid these blood vessels, a superior iridectomy was performed, however, there was some bleeding at that time. The graft was then placed over the patient's eye over viscoelastic support and placed into position with four interrupted 10-0 cardinal sutures at the 12-o'clock, 6-o'clock, 3-o'clock and 9-o'clock positions. Interrupted nylon sutures were then placed circumferentially around for a total of 16 sutures stopping before the last three sutures were placed to perform a gentle eye irrigation, aspiration of the blood in the anterior chamber. The heme was only partially able to be evacuated. Viscoelastic was washed away from the anterior chamber with use of balanced salt solution (BSS). The suture knots were then buried. Examination showed the graft in good position and secure with normal intraocular pressure (IOP) to palpation. Using a Fluorescein strip over the corneal surface, there was no Nadine and no leak present. Sub Tenon injections of one-half mL of gentamicin and vancomycin were placed in the inferior fornix. At that time the Flieringa ring was removed as well as the speculum and Tegaderm. Using a double-armed 5-0 nylon suture and a bolster, the tarsorrhaphy was placed, but not tied and then taped to the surface of the forehead with two Steri-Strips. The drapes were removed. A patch and shield were placed over the surface of the surgical eye with Maxitrol ointment between the eyelids. The patient was then extubated without difficulty per the anesthesia protocol and was transferred to the PACU in stable condition. JAQUAN
== END 2018-06-13 20:10 | disposition home or self-care (01) ==
LOC: M SDC 09:45
PROVIDERS: ATTEND Ophthalmology
DX: H17.9 Unspecified corneal scar and opacity (principal); H18.232 Secondary corneal edema, left eye; H18.832 Recurrent erosion of cornea, left eye; E11.311 Type 2 diabetes mellitus with unspecified diabetic retinopathy with macular edema; E11.43 Type 2 diabetes mellitus with diabetic autonomic (poly)neuropathy; E11.22 Type 2 diabetes mellitus with diabetic chronic kidney disease; I12.9 Hypertensive chronic kidney disease with stage 1 through stage 4 chronic kidney disease, or unspecified chronic kidney disease; E03.9 Hypothyroidism, unspecified; E78.2 Mixed hyperlipidemia; I50.42 Chronic combined systolic (congestive) and diastolic (congestive) heart failure; C85.81 Other specified types of non-Hodgkin lymphoma, lymph nodes of head, face, and neck; K31.84 Gastroparesis; D50.9 Iron deficiency anemia, unspecified; J84.10 Pulmonary fibrosis, unspecified; C44.92 Squamous cell carcinoma of skin, unspecified; K21.9 Gastro-esophageal reflux disease without esophagitis; I48.91 Unspecified atrial fibrillation; G47.33 Obstructive sleep apnea (adult) (pediatric); M15.0 Primary generalized (osteo)arthritis; N18.3 Chronic kidney disease, stage 3 (moderate); F41.9 Anxiety disorder, unspecified; Z88.8 Allergy status to other drugs, medicaments and biological substances; Z91.040 Latex allergy status; Z79.899 Other long term (current) drug therapy; Z79.01 Long term (current) use of anticoagulants; Z79.4 Long term (current) use of insulin; Z92.21 Personal history of antineoplastic chemotherapy; Z96.651 Presence of right artificial knee joint; Z98.51 Tubal ligation status
CPT/HCPCS: 65730; 66625; 67875; 87070; 87075; 87102; 87205; 88300; 88304; J1100; J1580; J2250; J2405; J3010; J3300; J3370; V2785

== ENCOUNTER → 2018-07-25 | Outpatient (CLI) | payer MEDICARE ==
[~2018-07-25] MED LIST changes: -/GLYB5TA OR; -/MOM400 PO; -/WARF25TA OR; -ACETAMINOPHEN 325 MG TAB PO PRN; +AMIO200T22 PO; -AMIO20TA PO; -AMIO400T PO; +AMIO400T7 PO; +COUM1TAB18 OR; +GLYB-147 PO; +GLYB1TAB29 OR; -GLYB5TA PO; +MILK10SU PO; -NORC1TAB4 PO; +NORC1TAB7 PO; +ZOFR4TAB16 PO
[2018-07-25 17:22] LABS: CALCIUM LEVEL 8.7 MG/DL (8.8-10.2); CREATININE FOR GFR 1.21 MG/DL (0.55-1.30); GLOMERULAR FILTRATION RATE 46.7 (>39); POTASSIUM SERUM 4.2 MEQ/L (3.5-5.1); THYROID STIMULATING HORMONE 8.5 uIU/ML (0.358-3.740)
== END ==
LOC: M WUC 10:54
PROVIDERS: ATTEND Family Medicine
DX: I12.9 Hypertensive chronic kidney disease with stage 1 through stage 4 chronic kidney disease, or unspecified chronic kidney disease (principal); N18.3 Chronic kidney disease, stage 3 (moderate); E03.9 Hypothyroidism, unspecified

== ENCOUNTER → 2018-08-06 | Outpatient (CLI) | payer MEDICARE ==
[~2018-08-06] MED LIST changes: +AUGM500T34 PO; +OFLO3OPSO OP; +PRED1SUS2 OP; +RHOP0.02 OP
--- NOTE | 2018-08-06 18:51 | REP ---
Chest two views HISTORY: Cough Comparison: 01/11/2018 The lungs are clear. The heart is normal in size. The pulmonary vasculature is normal in appearance. The bony structure is intact. IMPRESSION: No acute disease. Electronically Signed by Sulaiman Sanches MD 08/06/2018 06:43 P
== END ==
LOC: M WUC 17:38
PROVIDERS: ATTEND Family Medicine
DX: R05 Cough (principal)
CPT/HCPCS: 71046; 87804; G0463

== ENCOUNTER 2018-08-27 16:55 | Emergency (ER) | payer MEDICARE ==
[~2018-08-27] VITALS: Ht 154.9 cm; Wt 82.3 kg
[~2018-08-27 16:55] MED LIST changes: -AUGM500T34 PO; -OFLO3OPSO OP; -PRED1SUS2 OP; -RHOP0.02 OP
[2018-08-27] MEDS ORDERED: OFLO3OPSO OP (17:12)
[2018-08-27] MEDS ORDERED: PRED1SUS2 OP (17:12)
[2018-08-27] MEDS ORDERED: RHOP0.02 OP (17:13)
[2018-08-27] MEDS ORDERED: NS 1,000 ML IV ONE (17:30)
[2018-08-27] MEDS ORDERED: ONDANSETRON 4MG/2ML VIAL (J2405) IV ONE (17:30)
[2018-08-27] MEDS ORDERED: ACETAMINOPHEN TAB 650MG DOSE (2X325MG) PO ONE (17:45)
--- NOTE | 2018-08-27 17:47 | REP ---
Portable chest x-ray: Single view. History: Chest pain. Comparison chest x-ray: August 06, 2018. Findings: EKG monitoring electrodes overlie the chest. The heart is mildly enlarged unchanged. Pulmonary vasculature is not increased. Interstitial markings are somewhat prominent in the bases consistent with interstitial fibrosis. This finding is unchanged from prior studies. No acute infiltrate is seen. No pleural effusion is noted. Impression: Mild interstitial fibrosis pattern. Mild cardiomegaly. Unchanged from comparison study. Electronically Signed by Carroll Huizar MD 08/27/2018 05:39 P
[2018-08-27 17:54] LABS: HEMATOCRIT 41.9 % (36.0-47.0); HEMOGLOBIN 13.6 g/dl (12.0-15.5); MEAN CORPUSCULAR HGB CONC 32.5 g/dl (32.0-36.5); MEAN CORPUSCULAR VOLUME 86.4 fl (80.0-96.0); PLATELET COUNT, AUTOMATED 245 10^3/uL (150-450); RED BLOOD COUNT 4.85 10^6/uL (4.00-5.40)
[2018-08-27 18:11] LABS: CALCIUM LEVEL 8.5 MG/DL (8.8-10.2); CREATININE FOR GFR 1.37 MG/DL (0.55-1.30); GLOMERULAR FILTRATION RATE 40.5 (>39); MB/CK RELATIVE INDEX 3.25 (< OR =4); POTASSIUM SERUM 4.2 MEQ/L (3.5-5.1); TROPONIN I 0.02 NG/ML (< 0.10)
[2018-08-27 18:47] LABS: ATYPICAL LYMPH 2 % (0-5); EOSINOPHILS 1 % (0-5); LYMPHOCYTES 51 % (16-52); MONOCYTES 15 % (0-8); NEUTROPHILS 31 % (35-75)
[2018-08-27 18:49] LABS: PLATELET ESTIMATE NORMAL (NORMAL)
[2018-08-27] MEDS ORDERED: AUGM500T34 PO (20:09)
[2018-08-27] MEDS ORDERED: AUGMENTIN 500 MG TAB PO ONE (20:15)
[2018-08-27 20:35] VITALS: BP 159/68
--- NOTE | 2018-08-28 20:20 | ECGEPIP ---
Stationary ECG Study [facility] - ED Test Date: 2018-08-27 Pat Name: LISA DIAMOND Department: Room: - Gender: F Gm: : 1945 Requested By: VALERIANO Loza Order Number: [id number] Reading MD: Jo Figueroa Measurements Intervals [place] Rate: 100 P: [place]: 0 QRS: -31 QRSD: 108 T: 125 QT: 343 QTc: 443 Interpretive Statements ATRIAL FIBRILLATION WITH RAPID VENTRICULAR RESPONSE MARKED LEFT AXIS DEVIATION VOLTAGE CRITERIA FOR LVH POSSIBLE ANTERIOR MYOCARDIAL INFARCTION, OF INDETERMINATE AGE MODERATE T-WAVE ABNORMALITY, CONSIDER LATERAL ISCHEMIA 01/12/18 SINSU RHYTHM Electronically Signed On 08-28-2018 20:20:20 EDT by Jo Figueroa
== END 2018-08-27 20:41 | disposition home or self-care (01) ==
LOC: M ED 16:55
DX: J40 Bronchitis, not specified as acute or chronic (principal); I48.91 Unspecified atrial fibrillation; E86.0 Dehydration; E11.9 Type 2 diabetes mellitus without complications; I50.9 Heart failure, unspecified; K21.9 Gastro-esophageal reflux disease without esophagitis; Z79.899 Other long term (current) drug therapy; Z79.4 Long term (current) use of insulin; Z79.01 Long term (current) use of anticoagulants; Z88.8 Allergy status to other drugs, medicaments and biological substances; Z91.040 Latex allergy status
CPT/HCPCS: 36415; 71045; 80048; 81001; 82550; 82553; 83880; 84484; 85025; 87086; 93005; 93041; 94760; 96374; 99285; J2405

== ENCOUNTER → 2018-11-14 | Outpatient (CLI) | payer MEDICARE ==
[~2018-11-14] MED LIST changes: +AUGM500T34 PO; +OFLO3OPSO OP; +PRED1SUS2 OP; +RHOP0.02 OP
[2018-11-14 18:24] LABS: CALCIUM LEVEL 9.4 MG/DL (8.8-10.2); CREATININE FOR GFR 1.27 MG/DL (0.55-1.30); GLOMERULAR FILTRATION RATE 44.2 (>39); MAGNESIUM LEVEL 2.1 MG/DL (1.8-2.4); POTASSIUM SERUM 4.7 MEQ/L (3.5-5.1); THYROID STIMULATING HORMONE 8.47 uIU/ML (0.358-3.740)
== END ==
LOC: M WUC 13:23
PROVIDERS: ATTEND Family Medicine
DX: N18.3 Chronic kidney disease, stage 3 (moderate) (principal); E03.9 Hypothyroidism, unspecified

== ENCOUNTER → 2018-12-17 | Outpatient (REF) | payer MEDICARE ==
[~2018-12-17] MED LIST changes: +CYCL1SOL17 OS; +DOXY100T PO; +ERYTOIN8 OS; +LEVO137T14 PO; +MOXI0.5S IO; -PRED1SUS2 OP; +PRED1SUS2 OS; +TOUJ1.2I SC; +VIGA0.02 OS
[2018-12-17 16:22] LABS: HEMATOCRIT 37.2 % (36.0-47.0); HEMOGLOBIN 11.9 g/dl (12.0-15.5); MEAN CORPUSCULAR HEMOGLOBIN 27.2 pg (27.0-33.0); MEAN CORPUSCULAR VOLUME 85.1 fl (80.0-96.0); PLATELET COUNT, AUTOMATED 223 10^3/uL (150-450); RED BLOOD COUNT 4.37 10^6/uL (4.00-5.40)
== END ==
LOC: M SFHCPLAZ 14:20
PROVIDERS: ATTEND Family Medicine
DX: Z01.818 Encounter for other preprocedural examination (principal); I12.9 Hypertensive chronic kidney disease with stage 1 through stage 4 chronic kidney disease, or unspecified chronic kidney disease; I50.32 Chronic diastolic (congestive) heart failure
CPT/HCPCS: 36415; 83880; 85027; 93005; G0463

== ENCOUNTER → 2018-12-18 | Outpatient (CLI) | payer MEDICARE ==
[~2018-12-18] MED LIST changes: -CYCL1SOL17 OS; -DOXY100T PO; -ERYTOIN8 OS; -LEVO137T14 PO; -MOXI0.5S IO; +PRED1SUS2 OP; -PRED1SUS2 OS; -TOUJ1.2I SC; -VIGA0.02 OS
--- NOTE | 2018-12-18 16:10 | REP ---
Chest, two views Indication: Cough. Comparison: Portable chest x-ray of 08/27/2018 and two-view chest of 08/06/2018. Findings: The cardiomediastinal silhouette is normal in appearance for size. There are atherosclerotic calcifications of the thoracic aorta. There is similar coarse interstitial markings without focal consolidation or suspicious pulmonary nodule. The costophrenic angles are sharp. There are degenerative changes of the thoracolumbar spine, similar to prior. There is degenerative changes of the left glenohumeral joint, similar to prior. Surgical clips within the upper abdomen are again seen. Impression: No acute cardiopulmonary process. Electronically Signed by Jean Vasquez MD 12/18/2018 04:02 P
[2018-12-18 17:38] LABS: CALCIUM LEVEL 8.6 MG/DL (8.8-10.2); CREATININE FOR GFR 1.49 MG/DL (0.55-1.30); DIGOXIN LEVEL 0.9 NG/ML (0.5-2.0); GLOMERULAR FILTRATION RATE 36.7 (>39)
== END ==
LOC: M SMT 15:26
PROVIDERS: ATTEND Internal Medicine Cardiovascular Disease
DX: R05 Cough (principal); R06.00 Dyspnea, unspecified; Z51.81 Encounter for therapeutic drug level monitoring

== ENCOUNTER 2018-12-27 14:22 | Inpatient (IN) | payer MEDICARE ==
[~2018-12-27] VITALS: Ht 154.9 cm; Wt 78.8 kg
[~2018-12-27 14:22] MED LIST changes: -PRED1SUS2 OP; +PRED1SUS2 OS
[2018-12-27] MEDS ORDERED: MOXI0.5S IO (14:40)
--- NOTE | 2018-12-27 16:27 | REP ---
CT CHEST WITHOUT IV CONTRAST: CT chest performed without IV contrast. Sagittal and coronal reconstruction images are performed. Comparison made with prior PET/CT 01/22/[address] angiogram chest 12/29/2017. Mild patchy parenchymal opacities in both lung bases are visualized representing mild patchy bibasilar atelectasis/infiltrate. Upper lobes appear clear. Heart is slightly enlarged. There is no pleural or pericardial effusion. No gross mediastinal adenopathy is seen. There is atherosclerotic calcification of the thoracic aorta without aneurysm. There is no axillary adenopathy. There are degenerative changes of the spine. A small amount of fluid is seen along the right margin of the liver of uncertain significance. Patient has had a prior cholecystectomy. IMPRESSION: Mild patchy bibasilar atelectasis/infiltrate. A small amount of fluid along the right lobe of the liver of uncertain significance. Electronically Signed by Marty Chau MD 12/27/2018 04:38 P
[2018-12-27 16:28] LABS: HEMATOCRIT 38.3 % (36.0-47.0); HEMOGLOBIN 12.3 g/dl (12.0-15.5); MEAN CORPUSCULAR HEMOGLOBIN 26.8 pg (27.0-33.0); MEAN CORPUSCULAR HGB CONC 32.1 g/dl (32.0-36.5); MEAN CORPUSCULAR VOLUME 83.4 fl (80.0-96.0); PLATELET COUNT, AUTOMATED 388 10^3/uL (150-450); RED BLOOD COUNT 4.59 10^6/uL (4.00-5.40)
[2018-12-27 16:31] LABS: WHITE BLOOD COUNT 16.8 10^3/uL (4.0-10.0)
[2018-12-27 16:53] LABS: BILIRUBIN,DIRECT 0.2 MG/DL (0.0-0.2); BILIRUBIN,TOTAL 0.6 MG/DL (0.2-1.0); CALCIUM LEVEL 8.8 MG/DL (8.8-10.2); CK-MB VALUE MASS 2.6 NG/ML (<3.6); CREATININE FOR GFR 1.35 MG/DL (0.55-1.30); GLOMERULAR FILTRATION RATE 41.2 (>39); MB/CK RELATIVE INDEX 2.2 (< OR =4); POTASSIUM SERUM 4.4 MEQ/L (3.5-5.1); THYROID STIMULATING HORMONE 4.88 uIU/ML (0.358-3.740); TOTAL PROTEIN 5.8 GM/DL (6.4-8.2); TROPONIN I 0.02 NG/ML (< 0.10)
[2018-12-27 17:24] LABS: LYMPHOCYTES 42 % (16-44); MONOCYTES 6 % (0-5); NEUTROPHILS 52 % (28-66)
[2018-12-27 17:25] LABS: BURR CELLS 1+; PLATELET ESTIMATE NORMAL (NORMAL); POIKILOCYTOSIS 1+
[2018-12-27] MEDS ORDERED: LEVO137T14 PO (18:54)
[2018-12-27] MEDS ORDERED: CYCL1SOL17 OS (18:55)
[2018-12-27] MEDS ORDERED: FLON1SPR (18:55)
[2018-12-27] MEDS ORDERED: DIGO0.12 PO (18:55)
[2018-12-27] MEDS ORDERED: ERYTOIN8 OS (18:55)
[2018-12-27] MEDS ORDERED: TOUJ1.2I SC (18:55)
[2018-12-27] MEDS ORDERED: VIGA0.02 OS (18:55)
--- NOTE | 2018-12-27 19:36 | ECGEPIP ---
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
[2018-12-27] MEDS ORDERED: DEXTROSE 50% 50 ML SYRINGE IV PRN (21:30)
[2018-12-27] MEDS ORDERED: GLUCOSE 4 GM CHEW TABLET PO PRN (21:30)
[2018-12-27] MEDS ORDERED: GLUCAGON FOR INJ 1 MG VIAL (J1610) SC PRN (21:30)
[2018-12-27] MEDS ORDERED: ALBUTEROL SULFATE 2.5 MG/0.5 ML INH NEB SOLN NEB PRN (21:45)
[2018-12-27] MEDS: APIXABAN 5 MG TAB (ELIQUIS) PO SCH (22:10)
[2018-12-27] MEDS: METOPROLOL TARTRATE 100 MG TAB PO SCH (22:10)
[2018-12-27] MEDS: ATORVASTATIN 20 MG TAB PO SCH (22:10)
[2018-12-27] MEDS: ERYTHROMYCIN OPHTH OINT OS SCH (22:11)
[2018-12-28] VITALS: BP 126/62
[2018-12-28] MEDS: CIPROFLOXACIN 0.3% OPHTH SOLN 2.5ML OS SCH ×5 (01:18→23:13)
[2018-12-28] MEDS: prednisoLONE ACET 1% OPHTH SUSP 5ML OS SCH ×5 (01:18→20:53)
--- NOTE | 2018-12-28 03:23 | HPEPDOC ---
General Date of Admission Dec 27, 2018 at 21:17 Date of Service: Dec 27, 2018 Chief Complaint The patient is a 73-year-old female admitted with a reason for visit of Bronchitis. 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 Pt reports she spent a lot of time last week in [place] being treated for the sudden decline in vision in her left eye. 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 They intend to do another transplant but have felt she is not medically optimal. She complains of severe lethargy for the past week, nausea, vomiting, and diarrhea 2-3 episodes per day. Also severe coughing fits and sob. no fevers a full ros was performed and negative except as above Home Medications Scheduled Apixaban (Eliquis) 5 Mg Tab, 5 MG PO BID, (Reported) Atorvastatin Calcium (Atorvastatin Calcium) 40 Mg Tab, 40 MG PO QHS, (Reported) Cyclopentolate HCl (Cyclopentolate HCl) 1% 2ML Drops, 1 DROP OS TID, (Reported) Digoxin (Digoxin) 125 Mcg Tablet, 125 MCG PO DAILY, (Reported) Erythromycin Base (Erythromycin) 3.5 Gm Oint...g., 1 DOSE OS QID, (Reported) Fluticasone Propionate (Flonase Allergy Relief) 9.9 Ml [place].susp, 2 SPRAY NA DAILY, (Reported) Furosemide (Lasix) 20 Mg Tab, 20 MG PO DAILY, (Reported) Glipizide (Glipizide) 5 Mg Tab, 10 MG PO BID, (Reported) Insulin Glargine,Hum.rec.anlog (Tourona Soldeear) 300 Unit/1 Ml Insuln.pen, 150 UNIT SC DAILY, (Reported) Insulin Human Lispro (Humalog) 1 Units/0.01 Ml Inj, SC AC, (Reported) PER SLIDING SCALE Levothyroxine Sodium (Levoxyl) 137 Mcg Tablet, 137 MCG PO DAILY, (Reported) Metoprolol Tartrate (Metoprolol Tartrate) 100 Mg Tab, 100 MG PO BID, (Reported) Moxifloxacin HCl (Vigamox) 0.5% 3ML Drops, 1 DROP OS 6XD, (Reported) Multivitamins (Thera M Plus Tablet) 1 Tab Tab, 1 TAB PO DAILY, (Reported) Omeprazole (Omeprazole) 40 Mg Cap, 40 MG PO DAILY, (Reported) Potassium Chloride (K-Tab ER) 20 Meq Tab, 20 MEQ PO DAILY, (Reported) Prednisolone Acetate (Pred Forte 1% Opth Susp) 5 Ml Drops.susp, 1 DROP OS QID, (Reported) Spironolactone (Spironolactone) 25 Mg Tab, 12.5 MG PO DAILY, (Reported) Allergies Coded Allergies: sitagliptin (Verified Allergy, Mild, Rash, 07/25/18) amiodarone (Verified Adverse Reaction, Intermediate, Lung Issues, 07/25/18) latex (Verified Adverse Reaction, Mild, Risk, 07/25/18) lisinopril (Verified Adverse Reaction, Mild, cough, 07/25/18) Family History Significant Family History: No pertinent family hx A-FIB/CHADSVASC A-FIB History Current/History of A-Fib/PAF?: Yes Current PO Anticoag Therapy: Yes Physical Examination General Exam: Positive: Alert, Cooperative, Mild Distress Eye Exam: Positive: Other Eye Symptoms (left eye opaque) ENT Exam: Positive: Atraumatic, Mucous membr. moist/pink, Pharynx Normal Neck Exam: Positive: Supple; Negative: JVD, thyromegaly Chest Exam: Positive: Other (crackles) Heart Exam: Positive: Rate Normal, Regular Rhythm, Normal S1, Normal S2; Negative: Murmurs, Rubs Abdomen Exam: Positive: Normal bowel sounds, Soft; Negative: Tenderness, Hepatospenomegaly Extremity Exam: Positive: Normal pulses; Negative: Clubbing, Cyanosis, Edema Skin Exam: Positive: Nl turgor and temperature; Negative: Breakdown, Lesion Neuro Exam: Positive: Normal Gait, Normal Speech, Cranial Nerves 3-12 NL, Reflexes 2+ Psych Exam: Positive: Mental status NL, Mood NL, Oriented x 3 Vital Signs Vital Signs Date Time Temp Pulse Resp B/P (MAP) Pulse Ox O2 Delivery O2 Flow Rate FiO2 12/28/18 00:01 96.9 61 20 153/67 (95) 95 Room Air Laboratory Data Labs 24H Laboratory Tests 2 12/27/18 16:07: White Blood Count 16.8H, Red Blood Count 4.59, Hemoglobin 12.3, Hematocrit 38.3, Mean Corpuscular Volume 83.4, Mean Corpuscular Hemoglobin 26.8L, Mean Corpuscular Hemoglobin Concent 32.1, Red Cell Distribution Width 14.1, Platelet Count 388, Lymphocytes # (Auto) , Nucleated Red Blood Cells % (auto) 0.0, Neutrophils 52, Lymphocytes (Manual) 42, Monocytes (Manual) 6H, Platelet Estimate NORMAL, Poikilocytosis 1+, Amanda Cells 1+, Anion Gap 6L, Glomerular Filtration Rate 41.2, Lactic Acid Level 1.5, Calcium Level 8.8, Aspartate Amino Transf (AST/SGOT) 40H, Alanine Aminotransferase (ALT/SGPT) 50, Alkaline Phosphatase 110, Total Bilirubin 0.6, Direct Bilirubin 0.2, Total Creatine Kinase 118, Creatine Kinase MB 2.6, Creatine Kinase MB Relative Index 2.20, Troponin I 0.02, XL-Mdl-S-Type Natriuretic Peptide 1283H, Total Protein 5.8L, Albumin 3.0L, Albumin/Globulin Ratio 1.07, Thyroid Stimulating Hormone (TSH) 4.880H 12/27/18 22:17: Bedside Glucose (Misc Panel) 125H CBC/BMP Laboratory Tests 12/27/18 16:07 Red Blood Count 4.59, Mean Corpuscular Volume 83.4, Mean Corpuscular Hemoglobin 26.8 L, Mean Corpuscular Hemoglobin Concent 32.1, Red Cell Distribution Width 14.1, Lymphocytes # (Auto) Microbiology Microbiology 12/27/18 Blood Culture, Received Pending 12/27/18 Blood Culture, Received Pending Assessment/Plan 73f p/w gi and respiratory symptoms has complex history check sputum culture and respiratory viral panel ct chest without any obvious acute pathology will cover with doxycyline, albuterol, and prednisone for possible bronchitis given ILD would consult pulmonary in am does not appear volume overloaded at this time dm diabetic diet monitor fingersticks sliding scale coverage basal bolus ordered hypothyroid continue synthroid keron continue cpap afib continue eliquis corneal transplant rejection continue eye drops Plan / VTE VTE Prophylaxis Ordered?: Yes SONALI BEAVER MD Dec 28, 2018 03:23
[2018-12-28 06:00] VITALS: BP 112/61
[2018-12-28] MEDS: LEVOTHYROXINE 137MCG TABLET (0.137MG) PO SCH (06:06)
[2018-12-28] MEDS: HumaLOG INSULIN (NovoLOG) PER UNIT SC SCH ×5 (07:30→17:57)
[2018-12-28 07:32] LABS: HEMATOCRIT 35.7 % (36.0-47.0); HEMOGLOBIN 11.5 g/dl (12.0-15.5); MEAN CORPUSCULAR HEMOGLOBIN 27.3 pg (27.0-33.0); MEAN CORPUSCULAR HGB CONC 32.2 g/dl (32.0-36.5); MEAN CORPUSCULAR VOLUME 84.6 fl (80.0-96.0); PLATELET COUNT, AUTOMATED 347 10^3/uL (150-450); RED BLOOD COUNT 4.22 10^6/uL (4.00-5.40); WHITE BLOOD COUNT 12.6 10^3/uL (4.0-10.0)
[2018-12-28 07:49] LABS: CALCIUM LEVEL 8.6 MG/DL (8.8-10.2); CREATININE FOR GFR 1.12 MG/DL (0.55-1.30); GLOMERULAR FILTRATION RATE 51.1 (>39); POTASSIUM SERUM 3.7 MEQ/L (3.5-5.1)
[2018-12-28] MEDS: LEVEMIR (INSULIN DETEMIR) 1 UNITS/0.01ML SC SCH (09:00)
[2018-12-28] MEDS: OMEPRAZOLE 20 MG CAP PO SCH (09:49)
[2018-12-28] MEDS: DIGOXIN 0.125 MG TAB PO SCH (09:49)
[2018-12-28] MEDS: MULTIVITAMINS/MINERALS THERAP 1 TAB PO SCH (09:49)
[2018-12-28] MEDS: APIXABAN 5 MG TAB (ELIQUIS) PO SCH ×2 (09:49→20:51)
[2018-12-28] MEDS: FUROSEMIDE 20 MG TAB PO SCH (09:50)
[2018-12-28] MEDS: SPIRONOLACTONE 12.5MG PER 1/2 TABLET PO SCH (09:50)
[2018-12-28] MEDS: predniSONE 20 MG TAB PO SCH (09:50)
[2018-12-28] MEDS: METOPROLOL TARTRATE 100 MG TAB PO SCH ×2 (09:50→20:55)
[2018-12-28] MEDS: DOXYCYCLINE HYCLATE 100 MG TAB PO SCH ×2 (09:50→20:51)
[2018-12-28] MEDS: ERYTHROMYCIN OPHTH OINT OS SCH ×4 (09:51→20:53)
[2018-12-28] MEDS ORDERED: guaiFENesin/CODEINE SYRUP 5 ML UDC PO PRN (11:00)
--- NOTE | 2018-12-28 11:05 | IPNPDOC ---
Subjective Date Seen The patient was seen on 12/28/18. Subjective Chief Complaint/HPI Patient is still complaining of fits of cough and shortness of breath General: Denies: ROS Unobtainable, Chills, Night Sweats, Fatigue, Malaise, Normal Appetite, Other Symptoms Constitutional: Denies: Chills, Fever, Malaise, Night Sweats, Weakness, Fatigue, Weight Loss, Lethargy, Other Eyes: Denies: Pain, Vision change, Conjunctivae inflammation, Eyelid inflammation, Redness, Other ENT: Denies: Head Aches, Ear Pain, Dysphagia, Sinus Congestion, Post Nasal Drip, Sore Throat, Epistaxis, Other Symptoms Skin: Denies: Rash, Lesions, Jaundice, Bruising, Itching, Dry, Breakdown, Nail Changes, Other Pulmonary: Reports: Dyspnea, Cough Cardiovascular: Denies: Chest Pain, Palpitations, Orthopnea, Paroxysmal Noc. Dyspnea, Edema, Lt Headedness, Other Symptoms Gastrointestinal: Denies: Nausea, Vomiting, Abdominal Pain, Diarrhea, Constipation, Melena, Hematochezia, Other Symptoms Genitourinary: Denies: Dysuria, Frequency, Incontinence, Hematuria, Retention, Other Symptoms Musculoskeletal: Denies: Neck Pain, Back Pain, Shoulder Pain, Arm Pain, Hand Pain, Leg Pain, Foot Pain, Joint Pain, Muscle Pain, Spasms, Other Symptoms Neurological: Denies: Weakness, Numbness, Incoordination, Change in speech, Confusion, Seizures, Other Symptoms Objective Physical Examination General Exam: Positive: Alert, Cooperative, Mild Distress Eye Exam: Positive: Other Eye Symptoms (left eye opaque) ENT Exam: Positive: Atraumatic, Mucous membr. moist/pink, Pharynx Normal Neck Exam: Positive: Supple; Negative: JVD, thyromegaly Chest Exam: Positive: Other (scattered crackles) Heart Exam: Positive: Rate Normal, Regular Rhythm, Normal S1, Normal S2; Negative: Murmurs, Rubs Abdomen Exam: Positive: Normal bowel sounds, Soft; Negative: Tenderness, Hepatospenomegaly Extremity Exam: Positive: Normal pulses; Negative: Clubbing, Cyanosis, Edema Skin Exam: Positive: Nl turgor and temperature; Negative: Breakdown, Lesion Neuro Exam: Positive: Normal Gait, Normal Speech, Cranial Nerves 3-12 NL, Reflexes 2+ Psych Exam: Positive: Mental status NL, Mood NL, Oriented x 3 Assessment /Plan Problems (1) Bronchitis Status: Acute Problem Text: 73f p/w gi and respiratory symptoms has complex history check sputum culture and respiratory viral panel ct chest without any obvious acute pathology does not appear volume overloaded at this time Robitussin-AC syrup as per orders Continue present antibiotics, albuterol and prednisone PT, OT eval . We'll continue monitoring patient's clinical status and plan discharge (2) T2DM (type 2 diabetes mellitus) Status: Chronic Problem Text: Continue all home medications and insulin Ingested blood sugar with coverage (3) History of atrial fibrillation Status: Acute Problem Text: Atrial fibrillation. This weight under control Continue home meds Plan/VTE VTE Prophylaxis Ordered?: Yes VS, I&O, 24H, Fishbone Vital Signs/I&O Vital Signs Date Time Temp Pulse Resp B/P (MAP) Pulse Ox O2 Delivery O2 Flow Rate FiO2 12/28/18 09:50 64 115/64 12/28/18 06:00 97.7 18 95 12/28/18 00:01 Room Air Laboratory Data 24H LABS Laboratory Tests 2 12/27/18 16:07: White Blood Count 16.8H, Red Blood Count 4.59, Hemoglobin 12.3, Hematocrit 38.3, Mean Corpuscular Volume 83.4, Mean Corpuscular Hemoglobin 26.8L, Mean Corpu scular Hemoglobin Concent 32.1, Red Cell Distribution Width 14.1, Platelet Count 388, Lymphocytes # (Auto) , Nucleated Red Blood Cells % (auto) 0.0, Neutrophils 52, Lymphocytes (Manual) 42, Monocytes (Manual) 6H, Platelet Estimate NORMAL, Poikilocytosis 1+, [place] Cells 1+, Anion Gap 6L, Glomerular Filtration Rate 41.2, Lactic Acid Level 1.5, Calcium Level 8.8, Aspartate Amino Transf (AST/SGOT) 40H, Alanine Aminotransferase (ALT/SGPT) 50, Alkaline Phosphatase 110, Total Bilirubin 0.6, Direct Bilirubin 0.2, Total Creatine Kinase 118, Creatine Kinase MB 2.6, Creatine Kinase MB Relative Index 2.20, Troponin I 0.02, SD-Squ-Q-Type Natriuretic Peptide 1283H, Total Protein 5.8L, Albumin 3.0L, Albumin/Globulin Ratio 1.07, Thyroid Stimulating Hormone (TSH) 4.880H 12/27/18 22:17: Bedside Glucose (Misc Panel) 125H 12/28/18 07:14: Nucleated Red Blood Cells % (auto) 0.0, Anion Gap 6L, Glomerular Filtration Rate 51.1, Calcium Level 8.6L, Blood Urea Nitrogen 15, Creatinine 1.12, Sodium Level 142, Potassium Level 3.7, Chloride Level 111H, Carbon Dioxide Level 25 CBC/BMP Laboratory Tests 12/27/18 16:07 Red Blood Count 4.59, Mean Corpuscular Volume 83.4, Mean Corpuscular Hemoglobin 26.8 L, Mean Corpuscular Hemoglobin Concent 32.1, Red Cell Distribution Width 14.1, Lymphocytes # (Auto) 12/28/18 07:14 Red Blood Count 4.22, Mean Corpuscular Volume 84.6, Mean Corpuscular Hemoglobin 27.3, Mean Corpuscular Hemoglobin Concent 32.2, Red Cell Distribution Width 13.9, Calcium Level 8.6 L Microbiology Microbiology 12/27/18 Blood Culture, Received Pending 12/27/18 Blood Culture, Received Pending LEILANI MATOS MD Dec 28, 2018 11:05
[2018-12-28] MEDS: FLUTICASONE PROP 0.05% NASAL SPRAY 16 GM (FLONASE) SCH (13:09)
[2018-12-28 14:00] VITALS: BP 118/49
[2018-12-28] MEDS: ATORVASTATIN 20 MG TAB PO SCH (20:52)
[2018-12-28 22:00] VITALS: BP 135/64
[2018-12-29 06:00] VITALS: BP 125/42
[2018-12-29] MEDS: LEVOTHYROXINE 137MCG TABLET (0.137MG) PO SCH (06:00)
[2018-12-29] MEDS: CIPROFLOXACIN 0.3% OPHTH SOLN 2.5ML OS SCH (06:00)
[2018-12-29] MEDS: HumaLOG INSULIN (NovoLOG) PER UNIT SC SCH ×2 (07:30→08:35)
[2018-12-29] MEDS: LEVEMIR (INSULIN DETEMIR) 1 UNITS/0.01ML SC SCH (08:35)
[2018-12-29] MEDS: APIXABAN 5 MG TAB (ELIQUIS) PO SCH (08:37)
[2018-12-29] MEDS: DOXYCYCLINE HYCLATE 100 MG TAB PO SCH (08:37)
[2018-12-29] MEDS: MULTIVITAMINS/MINERALS THERAP 1 TAB PO SCH (08:37)
[2018-12-29] MEDS: predniSONE 20 MG TAB PO SCH (08:38)
[2018-12-29] MEDS: SPIRONOLACTONE 12.5MG PER 1/2 TABLET PO SCH (08:38)
[2018-12-29] MEDS: FUROSEMIDE 20 MG TAB PO SCH (08:38)
[2018-12-29] MEDS: DIGOXIN 0.125 MG TAB PO SCH (08:38)
[2018-12-29] MEDS: OMEPRAZOLE 20 MG CAP PO SCH (08:38)
[2018-12-29 08:39] VITALS: BP 125/42
[2018-12-29] MEDS: prednisoLONE ACET 1% OPHTH SUSP 5ML OS SCH (08:39)
[2018-12-29] MEDS: FLUTICASONE PROP 0.05% NASAL SPRAY 16 GM (FLONASE) SCH (08:39)
[2018-12-29] MEDS: METOPROLOL TARTRATE 100 MG TAB PO SCH (08:39)
[2018-12-29] MEDS: ERYTHROMYCIN OPHTH OINT OS SCH (08:40)
[2018-12-29 09:24] LABS: HEMATOCRIT 36.5 % (36.0-47.0); MEAN CORPUSCULAR HEMOGLOBIN 27.4 pg (27.0-33.0); MEAN CORPUSCULAR HGB CONC 32.9 g/dl (32.0-36.5); MEAN CORPUSCULAR VOLUME 83.3 fl (80.0-96.0); PLATELET COUNT, AUTOMATED 381 10^3/uL (150-450); RED BLOOD COUNT 4.38 10^6/uL (4.00-5.40); WHITE BLOOD COUNT 18.1 10^3/uL (4.0-10.0)
[2018-12-29 09:54] LABS: ALBUMIN 2.9 GM/DL (3.2-5.2); BILIRUBIN,TOTAL 0.5 MG/DL (0.2-1.0); CALCIUM LEVEL 8.7 MG/DL (8.8-10.2); CREATININE FOR GFR 1.3 MG/DL (0.55-1.30); POTASSIUM SERUM 4.2 MEQ/L (3.5-5.1); TOTAL PROTEIN 5.4 GM/DL (6.4-8.2)
[2018-12-29] MEDS ORDERED: DOXY100T PO (10:07)
[2018-12-29] MEDS ORDERED: PRED10TA2 PO (10:07)
--- NOTE | 2018-12-29 11:52 | DS.PDOC ---
Discharge Summary General Date of Admission Dec 27, 2018 at 21:17 Date of Discharge 12/29/18 Attending Physician: LEILANI MATOS MD Discharge Summary PROCEDURES PERFORMED DURING STAY: None. ADMITTING DIAGNOSES: 1. Acute bronchitis. #2. Pulmonary fibrosis. DISCHARGE DIAGNOSES: 1. #1. Acute bronchitis. #2. Pulmonary fibrosis. #3. AF #4 CKD #5. Obstructive sleep apnea. COMPLICATIONS/CHIEF COMPLAINT: Bronchitis. 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 Pt reports she spent a lot of time last week in [place] being treated for the sudden decline in vision in her left eye. 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 They intend to do another transplant but have felt she is not medically optimal. She complains of severe lethargy for the past week, nausea, vomiting, and diarrhea 2-3 episodes per day. Also severe coughing fits and sob. no fevers. HOSPITAL COURSE: [n 73f p/w gi and respiratory symptoms has complex history check sputum culture and respiratory viral panel ct chest without any obvious acute pathology does not appear volume overloaded at this time Robitussin-AC syrup as per orders Continue present antibiotics, albuterol and prednisone PT, OT eval Responded to above treatment very well. She is completely asymptomatic at the present time and wishes to go home as she is presently on by mouth.CMP of prednisone in the hospital. Patient does have a oxygen, nebulizer machine and all her equipment and medications at home. 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 She will be discharged home on by mouth.see and prednisone as per tapering dose. Continue all her home medications and follow with Dr. Clinton in one week DISCHARGE MEDICATIONS: Please see below. ALLERGIES: Please see below. PHYSICAL EXAMINATION ON DISCHARGE: VITAL SIGNS: Please see below. GENERAL: Within normal limits HEENT: PERRLA NECK: Supple CARDIOVASCULAR EXAMINATION: S1, S2, regular RESPIRATORY EXAMINATION: Diminished breath sounds but positive bilaterally. No rhonchi, wheezing ABDOMINAL EXAMINATION: , Soft, nontender, bowel sounds present EXTREMITIES: No clubbing, cyanosis, edema SKIN: Normal NEUROLOGICAL EXAMINATION: . No focal motor sensory deficit PSYCHIATRIC EXAMINATION: Normal LABORATORY DATA: Please see below. IMAGING: CT chest:Mild patchy bibasilar atelectasis/infiltrate. A small amount of fluid along the right lobe of the liver of uncertain significance. PROGNOSIS: Good ACTIVITY: As tolerated. DIET: As tolerated DISCHARGE PLAN: Follow with Dr. Clinton in one week DISPOSITION: 01 Home, Self-Care. DISCHARGE INSTRUCTIONS: 1. As per discharge instructions. ITEMS TO FOLLOWUP ON ON OUTPATIENT: 1. Follow with pulmonary in one week. DISCHARGE CONDITION: Stable. TIME SPENT ON DISCHARGE: 42 minutes. Vital Signs/I&Os Vital Signs Date Time Temp Pulse Resp B/P (MAP) Pulse Ox O2 Delivery O2 Flow Rate FiO2 12/29/18 08:39 67 125/42 12/29/18 06:00 97.8 18 94 12/28/18 00:01 Room Air I&O- Last 24 Hours up to 6 AM 12/29/18 06:00 Intake Total 1200 ml Output Total 1400 ml Balance -200 ml Laboratory Data Labs 24H Laboratory Tests 2 12/28/18 12:03: Bedside Glucose (Misc Panel) 166H 12/28/18 16:43: Bedside Glucose (Misc Panel) 200H 12/28/18 20:57: Bedside Glucose (Misc Panel) 397H 12/29/18 06:17: Bedside Glucose (Misc Panel) 303H 12/29/18 09:11: Nucleated Red Blood Cells % (auto) 0.0, Anion Gap 10, Glomerular Filtration Rate 43.0, Blood Urea Nitrogen 21H, Creatinine 1.30, Sodium Level 139, Potassium Level 4.2, Chloride Level 106, Carbon Dioxide Level 23, Calcium Level 8.7L, Aspartate Amino Transf (AST/SGOT) 22, Alanine Aminotransferase (ALT/SGPT) 44, Alkaline Phosphatase 106, Total Bilirubin 0.5, Total Protein 5.4L, Albumin 2.9L, Albumin/Globulin Ratio 1.16 CBC/BMP Laboratory Tests 12/29/18 09:11 Red Blood Count 4.38, Mean Corpuscular Volume 83.3, Mean Corpuscular Hemoglobin 27.4, Mean Corpuscular Hemoglobin Concent 32.9, Red Cell Distribution Width 13.6, Calcium Level 8.7 L, Aspartate Amino Transf (AST/SGOT) 22, Alanine Aminotransferase (ALT/SGPT) 44, Alkaline Phosphatase 106, Total Bilirubin 0.5, Total Protein 5.4 L, Albumin 2.9 L FSBS Laboratory Tests Test 12/28/18 12:03 12/28/18 16:43 12/28/18 20:57 12/29/18 06:17 Range/Units Bedside Glucose (Misc Panel) 166 200 397 303 83-110 MG/DL Microbiology Microbiology 12/27/18 Blood Culture - Preliminary, Resulted No growth after 24 hours . All specim... 12/27/18 Blood Culture - Preliminary, Resulted No growth after 24 hours . All specim... 12/28/18 Respiratory Virus Panel (PCR) (BOB) - Final, Complete 12/28/18 Gram Stain - Final, Resulted 12/28/18 Sputum Culture, Resulted Pending Discharge Medications Scheduled Apixaban (Eliquis) 5 Mg Tab, 5 MG PO BID, (Reported) Atorvastatin Calcium (Atorvastatin Calcium) 40 Mg Tab, 40 MG PO QHS, (Reported) Cyclopentolate HCl (Cyclopentolate HCl) 1% 2ML Drops, 1 DROP OS TID, (Reported) Digoxin (Digoxin) 125 Mcg Tablet, 125 MCG PO DAILY, (Reported) Doxycycline Hyclate (Doxycycline Hyclate) 100 Mg Tablet, 100 MG PO BID Erythromycin Base (Erythromycin) 3.5 Gm Oint...g., 1 DOSE OS QID, (Reported) Fluticasone Propionate (Flonase Allergy Relief) 9.9 Ml [place].susp, 2 SPRAY NA D AILY, (Reported) Furosemide (Lasix) 20 Mg Tab, 20 MG PO DAILY, (Reported) Glipizide (Glipizide) 5 Mg Tab, 10 MG PO BID, (Reported) Insulin Glargine,Hum.rec.anlog ([place] Solostar) 300 Unit/1 Ml Insuln.pen, 150 UNIT SC DAILY, (Reported) Insulin Human Lispro (Humalog) 1 Units/0.01 Ml Inj, SC AC, (Reported) PER SLIDING SCALE Levothyroxine Sodium (Levoxyl) 137 Mcg Tablet, 137 MCG PO DAILY, (Reported) Metoprolol Tartrate (Metoprolol Tartrate) 100 Mg Tab, 100 MG PO BID, (Reported) Moxifloxacin HCl (Vigamox) 0.5% 3ML Drops, 1 DROP OS 6XD, (Reported) Multivitamins (Thera M Plus Tablet) 1 Tab Tab, 1 TAB PO DAILY, (Reported) Omeprazole (Omeprazole) 40 Mg Cap, 40 MG PO DAILY, (Reported) Potassium Chloride (K-Tab ER) 20 Meq Tab, 20 MEQ PO DAILY, (Reported) Prednisolone Acetate (Pred Forte 1% Opth Susp) 5 Ml Drops.susp, 1 DROP OS QID, (Reported) Prednisone (Prednisone) 10 Mg Tablet, 10 MG PO TAPER Take 4 tabs daily x 3 days, then 3 tabs daily x 3 days, then 2 tabs daily x 3 days, then 1 tab daily x 3 days and stop Spironolactone (Spironolactone) 25 Mg Tab, 12.5 MG PO DAILY, (Reported) Allergies Coded Allergies: sitagliptin (Verified Allergy, Mild, Rash, 07/25/18) amiodarone (Verified Adverse Reaction, Intermediate, Lung Issues, 07/25/18) latex (Verified Adverse Reaction, Mild, Risk, 07/25/18) lisinopril (Verified Adverse Reaction, Mild, cough, 07/25/18) LEILANI MATOS MD Dec 29, 2018 11:52
== END 2018-12-29 11:44 | disposition home or self-care (01) | DRG 202 ==
LOC: M ED 14:22 → M ED INP 21:17 → M MS5PR 12-28 00:17
PROVIDERS: ADMIT Hospitalist; ATTEND Internal Medicine
DX: J20.9 Acute bronchitis, unspecified (principal); N18.5 Chronic kidney disease, stage 5; G47.33 Obstructive sleep apnea (adult) (pediatric); J84.10 Pulmonary fibrosis, unspecified; I48.91 Unspecified atrial fibrillation; E03.9 Hypothyroidism, unspecified; E11.9 Type 2 diabetes mellitus without complications; Z94.7 Corneal transplant status; Z79.899 Other long term (current) drug therapy; Z79.4 Long term (current) use of insulin; Z91.040 Latex allergy status; Z88.8 Allergy status to other drugs, medicaments and biological substances

== ENCOUNTER → 2019-01-15 | Outpatient (CLI) | payer MEDICARE ==
[~2019-01-15] MED LIST changes: +CYCL1SOL17 OS; -DIGO0.12 PO; +DIGO0.123 PO; +DOXY100T PO; +ERYTOIN8 OS; +LEVO137T14 PO; +MAPA500C PO; -METH4TAB28 PO; +METH4TAB8 PO; +MOXI0.5S IO; -OMEP40CA2 PO; +OMEP40CA97 PO; +PERC5TAB12 PO; +TOBROPO OP; +TOUJ1.2I SC; +VIGA0.02 OS
[2019-01-15 17:20] LABS: BASO # 0.1 10^3/uL (0.0-0.2); BASO % 0.4 % (0.0-1.0); EOS # 0.3 10^3/uL (0.0-0.5); EOS % 2.9 % (0.0-3.0); HEMATOCRIT 39.5 % (36.0-47.0); HEMOGLOBIN 12.3 g/dl (12.0-15.5); LYMPH # 4.3 10^3/uL (1.5-5.0); LYMPH % 36.7 % (24.0-44.0); MEAN CORPUSCULAR HEMOGLOBIN 26.8 pg (27.0-33.0); MEAN CORPUSCULAR HGB CONC 31.1 g/dl (32.0-36.5); MEAN CORPUSCULAR VOLUME 86.1 fl (80.0-96.0); MONO # 0.9 10^3/uL (0.0-0.8); MONO % 7.5 % (0.0-5.0); NEUTROPHILS # 6.1 10^3/uL (1.5-8.5); NEUTROPHILS % 51.7 % (36.0-66.0); PLATELET COUNT, AUTOMATED 196 10^3/uL (150-450); RED BLOOD COUNT 4.59 10^6/uL (4.00-5.40); WHITE BLOOD COUNT 11.8 10^3/uL (4.0-10.0)
== END ==
LOC: M WUC 11:12
PROVIDERS: ATTEND Family Medicine
DX: D72.829 Elevated white blood cell count, unspecified (principal); E03.9 Hypothyroidism, unspecified

== ENCOUNTER 2019-03-28 07:53 | Inpatient (IN) | payer MEDICARE ==
[~2019-03-28] VITALS: Ht 154.9 cm; Wt 80.8 kg
[~2019-03-28 07:53] MED LIST changes: -MAPA500C PO; -PERC5TAB12 PO
[2019-03-28] MEDS ORDERED: ONDANSETRON 4MG/2ML VIAL (J2405) IV ONE (08:15)
[2019-03-28 08:30] LABS: BASO # 0.1 10^3/uL (0.0-0.2); BASO % 0.3 % (0.0-1.0); EOS # 0.1 10^3/uL (0.0-0.5); EOS % 0.7 % (0.0-3.0); HEMATOCRIT 37.5 % (36.0-47.0); HEMOGLOBIN 11.6 g/dl (12.0-15.5); LYMPH # 4.3 10^3/uL (1.5-5.0); LYMPH % 25.5 % (24.0-44.0); MEAN CORPUSCULAR HEMOGLOBIN 26.7 pg (27.0-33.0); MEAN CORPUSCULAR HGB CONC 30.9 g/dl (32.0-36.5); MEAN CORPUSCULAR VOLUME 86.2 fl (80.0-96.0); MONO # 1.7 10^3/uL (0.0-0.8); MONO % 10.3 % (0.0-5.0); NEUTROPHILS # 10.4 10^3/uL (1.5-8.5); NEUTROPHILS % 62.6 % (36.0-66.0); PLATELET COUNT, AUTOMATED 223 10^3/uL (150-450); RED BLOOD COUNT 4.35 10^6/uL (4.00-5.40); WHITE BLOOD COUNT 16.7 10^3/uL (4.0-10.0)
[2019-03-28] MEDS: MORPHINE 2 MG/ML 1ML VIAL (J2270) IV PRN ×4 (08:31→23:04)
--- NOTE | 2019-03-28 08:33 | REP ---
Clinical: Chest pain. Comparison: 08/27/2018. Findings: There is a 3 cm subpleural opacity in the lateral right mid lung zone possibly reflecting infiltrate in the basilar right upper lobe segment. Mediastinum and cardiac silhouette are stable. Stable chronic changes noted. No further consolidation, effusion, or pneumothorax. Skeletal structures intact. Impression: Lateral right mid lobe opacity. Differential diagnosis includes infiltrate and mass. Electronically Signed by Jc Morel MD 03/28/2019 08:24 A
[2019-03-28 08:45] LABS: INR 1.42; PARTIAL THROMBOPLASTIN TIME 31.5 SECONDS (25.0-38.4); PROTHROMBIN TIME 17.1 SECONDS (11.8-14.0)
[2019-03-28] MEDS ORDERED: DIGOXIN 0.125 MG TAB PO SCH (09:00)
[2019-03-28 09:14] LABS: CALCIUM LEVEL 8.4 MG/DL (8.8-10.2); CK-MB VALUE MASS 1.5 NG/ML (<3.6); CREATININE FOR GFR 1.44 MG/DL (0.55-1.30); DIGOXIN LEVEL 1.6 NG/ML (0.5-2.0); GLOMERULAR FILTRATION RATE 38.2 (>39); MB/CK RELATIVE INDEX 1.74 (< OR =4); POTASSIUM SERUM 4.6 MEQ/L (3.5-5.1); TROPONIN I 0.02 NG/ML (< 0.10)
[2019-03-28] MEDS ORDERED: ISOVUE-370 76% 100ML VIAL (Q9967) As Ordered ONE (09:31)
--- NOTE | 2019-03-28 10:03 | REP ---
Clinical: Chest pain and dyspnea. Technique: Axial contrast enhanced images from the thoracic inlet to the upper abdomen with coronal and sagittal re-formations using 100 ml Isovue 370 intravenous contrast material. Comparison: 12/27/2018. Findings: Chronic interstitial fibrosis with scattered scarring and bronchiectasis is again appreciated. There is a subpleural density along the lateral aspect of the right upper lobe measuring 2.5 x 4.1 cm along with smaller patchy subpleural opacities in the basilar right middle lobe and right lower lobe. These findings are relatively new when compared to 12/27/2018 and likely represent multifocal pneumonia. Differential diagnosis includes neoplasm. Reactive mediastinal lymph nodes are identified measuring up to approximately 12 mm. No effusion. No pneumothorax. Atherosclerotic changes to the thoracic aorta and coronary arteries again noted and stable. No cardiomegaly. No pericardial effusion. Musculoskeletal structures demonstrate age-related degenerative changes. Limited upper abdomen demonstrates normal bilateral adrenal glands. Impression: 1. Chronic interstitial fibrosis. 2. New area of opacity along the subpleural lateral right upper lobe and to a lesser extent right base. Findings are felt to reflect areas of pneumonia. Follow-up to resolution is recommended as further pathology including neoplasm cannot be excluded. Electronically Signed by Jc Morel MD 03/28/2019 09:54 A
[2019-03-28] MEDS ORDERED: cefTRIAXone SOD 2 GM in D5W MINI-BAG PLUS 50 ML IV ONE (10:30)
[2019-03-28] MEDS ORDERED: GLUCAGON FOR INJ 1 MG VIAL (J1610) SC PRN (12:00)
[2019-03-28] MEDS ORDERED: DEXTROSE 50% 50 ML SYRINGE IV PRN (12:00)
[2019-03-28] MEDS ORDERED: GLUCOSE 4 GM CHEW TABLET PO PRN (12:00)
--- NOTE | 2019-03-28 12:04 | HPEPDOC ---
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 Patient reports feeling well up until this morning when she woke up with right-sided chest pain, reproducible, radiating to her back over the rib cage, associated cough. Pain is worsened by deep inspiration, no other complaints. Patient denies any fever, any sputum production, sick contacts, diarrhea, urinary symptoms, myalgias or arthralgias. In the ED, patient was found to have a right upper lobe infiltrate, distal, concerning for pneumonia. Patient denies any nausea, vomiting, headaches, abdominal pain, diarrhea or constipation at this time. 10 point review of system is negative except for above PAST MEDICAL HISTORY: 1. Hypertension. 2. Diabetes mellitus. 3. Non-Hodgkin's lymphoma. 4. Atrial fibrillation. 5. Pulmonary fibrosis secondary to Imuran toxicity. 6. GERD. 7. Hypothyroidism. 8. Gastroparesis PAST SURGICAL HISTORY: 1. Cholecystectomy. 2. Cataract surgery. 3. Total knee arthroplasty. 4. Cardiac ablation SOCIAL HISTORY: Never smoker. Social alcohol use. Denies drug use FAMILY HISTORY: Positive for heart disease and diabetes mellitus ALLERGIES: Please see below. HOME MEDICATIONS: Please see below. PHYSICAL EXAMINATION: VITAL SIGNS: Please see below. GENERAL: No distress HEENT: Normocephalic, atraumatic, moist mucous membranes NECK: Supple CARDIOVASCULAR EXAMINATION: S1, S2, no murmurs RESPIRATORY EXAMINATION: Scattered rhonchi, reproducible chest pain over the right-sided rib cage, traveling around to her scapula, no wheezing ABDOMINAL EXAMINATION: Soft, nontender, nondistended, positive bowel sounds EXTREMITIES: Range of motion intact SKIN: No rash NEUROLOGICAL EXAMINATION: Alert and oriented 3, no focal deficits PSYCHIATRIC EXAMINATION: Calm and cooperative LABORATORY DATA: See below. IMAGING: CT chest showing right upper lobe infiltrate concerning for pneumonia MICROBIOLOGY: Please see below. ASSESSMENT: 73-year-old female with an extensive medical history, presents with acute onset pleuritic chest pain and cough with imaging concerning for pneumonia. PLAN: 1. Pulmonary infiltrate. Given the acuity of symptoms and location/shape of the infiltrate, lung ischemia from PE is a possibility, but given patient's presentation (not tachycardic, hypoxemic, hypotensive or dyspneic), there is low likelihood for PE at this time. Pneumonia is a possibility, we'll treat with Levaquin. Patient will require repeat CAT scan in 4-6 weeks to monitor resolution of infiltrate. Respiratory viral panel and blood cultures pending 2. Atrial fibrillation. Continue digoxin and metoprolol for rate control, Eliquis for anticoagulation 3. Pulmonary fibrosis. Secondary to amiodarone toxicity, stable, will monitor. 4. GERD. Continue home PPI 5. Hypothyroidism. Continue levothyroxine 6. Non-Hodgkin's lymphoma. Status post treatment in 2011 2013, now in remission. 7. Hypertension. Continue home metoprolol and spironolactone 8. Diabetes mellitus. Decrease Levemir to 75 units at bedtime, sliding scale insulin before meals and at bedtime. Will adjust insulin based on patient's needs. DVT prophylaxis: Eliquis GI prophylaxis: Home PPI Vital Signs Vital Signs Date Time Temp Pulse Resp B/P (MAP) Pulse Ox O2 Delivery O2 Flow Rate FiO2 03/28/19 09:46 131/58 (82) 03/28/19 09:38 87 03/28/19 09:35 16 03/28/19 09:23 97 03/28/19 08:13 99.2 Room Air Laboratory Data Labs 24H Laboratory Tests 2 03/28/19 08:10: Immature Granulocyte % (Auto) 0.6, Neutrophils (%) (Auto) 62.6, Lymphocytes (%) (Auto) 25.5, Monocytes (%) (Auto) 10.3H, Eosinophils (%) (Auto) 0.7, Basophils (%) (Auto) 0.3, Neutrophils # (Auto) 10.4H, Lymphocytes # (Auto) 4.3, Monocytes # (Auto) 1.7H, Eosinophils # (Auto) 0.1, Basophils # (Auto) 0.1, Nucleated Red Blood Cells % (auto) 0.0, Prothrombin Time 17.1H, Prothromb Time International Ratio 1.42, Activated Partial Thromboplast Time 31.5, Anion Gap 6L, Glomerular Filtration Rate 38.2L, Calcium Level 8.4L, Total Creatine Kinase 86, Creatine Kinase MB 1.5, Creatine Kinase MB Relative Index 1.74, Troponin I 0.02, Digoxin Level 1.6 CBC/BMP Laboratory Tests 03/28/19 08:10 Microbiology Microbiology 03/28/19 Blood Culture, Received Pending 03/28/19 Blood Culture, Received Pending Home Medications Scheduled Apixaban (Eliquis) 5 Mg Tab, 5 MG PO BID Atorvastatin Calcium (Atorvastatin Calcium) 40 Mg Tab, 40 MG PO QHS Digoxin (Digoxin) 125 Mcg Tablet, 125 MCG PO DAILY Fluticasone Propionate (Flonase Allergy Relief) 9.9 Ml [place].susp, 2 SPRAY NA BID Furosemide (Lasix) 20 Mg Tab, 20 MG PO DAILY Glipizide (Glipizide) 5 Mg Tab, 10 MG PO BID Insulin Glargine,Hum.rec.anlog ([place] Solkurtis) 300 Unit/1 Ml Insuln.pen, 150 UNIT SC DAILY Insulin Human Lispro (Humalog) 1 Units/0.01 Ml Inj, 1 DOSE SC ACHS PER SLIDING SCALE Levothyroxine Sodium (Levoxyl) 137 Mcg Tablet, 137 MCG PO DAILY Metoprolol Tartrate (Metoprolol Tartrate) 100 Mg Tab, 100 MG PO BID Multivitamins (Thera M Plus Tablet) 1 Tab Tab, 1 TAB PO DAILY Omeprazole (Omeprazole) 40 Mg Cap, 40 MG PO DAILY Potassium Chloride (K-Tab ER) 20 Meq Tab, 20 MEQ PO DAILY Spironolactone (Spironolactone) 25 Mg Tab, 12.5 MG PO DAILY Allergies Coded Allergies: sitagliptin (Verified Allergy, Mild, Rash, 07/25/18) amiodarone (Verified Adverse Reaction, Intermediate, Lung Issues, 07/25/18) latex (Verified Adverse Reaction, Mild, Risk, 07/25/18) lisinopril (Verified Adverse Reaction, Mild, cough, 07/25/18) A-FIB/CHADSVASC A-FIB History Current/History of A-Fib/PAF?: Yes Current PO Anticoag Therapy: Yes BRIE STEVENSON MD Mar 28, 2019 12:04
[2019-03-28] MEDS ORDERED: LevoFLOXacin IV 750 MG in IV 1 EA IV ONE (13:00)
[2019-03-28 14:00] VITALS: BP 148/56
[2019-03-28] MEDS: NS 1,000 ML IV SCH (14:46)
[2019-03-28] MEDS: APIXABAN 5 MG TAB (ELIQUIS) PO SCH ×2 (14:47→22:05)
[2019-03-28] MEDS: HumaLOG INSULIN (NovoLOG) PER UNIT SC SCH ×3 (14:47→21:00)
[2019-03-28] MEDS: OMEPRAZOLE 20 MG CAP PO SCH (14:47)
[2019-03-28] MEDS: METOPROLOL TARTRATE 100 MG TAB PO SCH ×2 (14:48→22:04)
[2019-03-28] MEDS: MULTIVITAMINS/MINERALS THERAP 1 TAB PO SCH (14:48)
[2019-03-28] MEDS: SPIRONOLACTONE 12.5MG PER 1/2 TABLET PO SCH (14:49)
[2019-03-28] MEDS ORDERED: LevoFLOXacin IV 750 MG in IV 1 EA IV SCH (15:00)
[2019-03-28] MEDS ORDERED: diphenhydrAMINE 50 MG CAP PO ONE (17:30)
[2019-03-28] MEDS ORDERED: glipiZIDE (GLUCOTROL) 5 MG TAB PO SCH (17:30)
--- NOTE | 2019-03-28 20:01 | ECGEPIP ---
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
[2019-03-28] MEDS ORDERED: LEVEMIR (INSULIN DETEMIR) 1 UNITS/0.01ML SC SCH (21:00)
[2019-03-28 22:00] VITALS: BP 115/45
[2019-03-28] MEDS: ATORVASTATIN 20 MG TAB PO SCH (22:04)
[2019-03-28] MEDS: FLUTICASONE PROP 0.05% NASAL SPRAY 16 GM (FLONASE) SCH (22:05)
[2019-03-29] MEDS: LEVOTHYROXINE 137MCG TABLET (0.137MG) PO SCH (06:28)
[2019-03-29 07:00] LABS: HEMATOCRIT 34.7 % (36.0-47.0); HEMOGLOBIN 10.9 g/dl (12.0-15.5); MEAN CORPUSCULAR HEMOGLOBIN 26.9 pg (27.0-33.0); MEAN CORPUSCULAR HGB CONC 31.4 g/dl (32.0-36.5); MEAN CORPUSCULAR VOLUME 85.7 fl (80.0-96.0); PLATELET COUNT, AUTOMATED 207 10^3/uL (150-450); RED BLOOD COUNT 4.05 10^6/uL (4.00-5.40); WHITE BLOOD COUNT 13.8 10^3/uL (4.0-10.0)
[2019-03-29 07:28] LABS: ALBUMIN 2.5 GM/DL (3.2-5.2); BILIRUBIN,TOTAL 0.9 MG/DL (0.2-1.0); CALCIUM LEVEL 8.3 MG/DL (8.8-10.2); CREATININE FOR GFR 1.69 MG/DL (0.55-1.30); GLOMERULAR FILTRATION RATE 31.8 (>39); MAGNESIUM LEVEL 1.9 MG/DL (1.8-2.4); POTASSIUM SERUM 4.1 MEQ/L (3.5-5.1); TOTAL PROTEIN 5.5 GM/DL (6.4-8.2)
[2019-03-29] MEDS: HumaLOG INSULIN (NovoLOG) PER UNIT SC SCH ×4 (08:41→21:00)
[2019-03-29] MEDS: NS 1,000 ML IV SCH (09:48)
[2019-03-29] MEDS: SPIRONOLACTONE 12.5MG PER 1/2 TABLET PO SCH (09:49)
[2019-03-29] MEDS: METOPROLOL TARTRATE 100 MG TAB PO SCH ×2 (09:50→22:01)
[2019-03-29] MEDS: OMEPRAZOLE 20 MG CAP PO SCH (09:51)
[2019-03-29] MEDS: MULTIVITAMINS/MINERALS THERAP 1 TAB PO SCH (09:51)
[2019-03-29] MEDS: APIXABAN 5 MG TAB (ELIQUIS) PO SCH ×2 (09:51→22:00)
[2019-03-29] MEDS: cefTRIAXone SOD 1 GM in D5W MINI-BAG PLUS 50 ML IV SCH (09:51)
[2019-03-29] MEDS: FLUTICASONE PROP 0.05% NASAL SPRAY 16 GM (FLONASE) SCH ×2 (09:51→22:01)
[2019-03-29] MEDS ORDERED: diphenhydrAMINE 25 MG CAP PO PRN (10:45)
[2019-03-29] MEDS: ACETAMINOPHEN TAB 650MG DOSE (2X325MG) PO PRN (10:52)
[2019-03-29] MEDS ORDERED: AZITHROMYCIN INJ 500 MG, VIAL MATE ADAPTER 1 EACH in D5W 250 ML IV SCH (11:00)
[2019-03-29] MEDS ORDERED: POTASSIUM CHLORIDE 10 MEQ SR TABLET PO SCH (11:30)
--- NOTE | 2019-03-29 11:43 | IPNPDOC ---
Date Seen The patient was seen on 03/29/19. 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 Patient reports feeling well up until this morning when she woke up with right-sided chest pain, reproducible, radiating to her back over the rib cage, associated cough. Pain is worsened by deep inspiration, no other complaints. Patient denies any fever, any sputum production, sick contacts, diarrhea, urinary symptoms, myalgias or arthralgias. In the ED, patient was found to have a right upper lobe infiltrate, distal, concerning for pneumonia. Patient denies any nausea, vomiting, headaches, abdominal pain, diarrhea or constipation at this time. 03/29/2019 Patient reports improvement in dyspnea and pleuritic chest pain, continues to have itching, no other complaints. 10 point review of system is negative except for above PHYSICAL EXAMINATION: VITAL SIGNS: Please see below. GENERAL: No distress HEENT: Normocephalic, atraumatic, moist mucous membranes NECK: Supple CARDIOVASCULAR EXAMINATION: S1, S2, no murmurs RESPIRATORY EXAMINATION: Scattered rhonchi, no wheezing ABDOMINAL EXAMINATION: Soft, nontender, nondistended, positive bowel sounds EXTREMITIES: Range of motion intact SKIN: No rash NEUROLOGICAL EXAMINATION: Alert and oriented 3, no focal deficits PSYCHIATRIC EXAMINATION: Calm and cooperative LABORATORY DATA: See below. IMAGING: CT chest showing right upper lobe infiltrate concerning for pneumonia MICROBIOLOGY: Please see below. ASSESSMENT: 73-year-old female with an extensive medical history, presents with acute onset pleuritic chest pain and cough with imaging concerning for pneumonia. PLAN: 1. Pneumonia Continue azithromycin and ceftriaxone, respiratory viral panel and blood cultures pending 2. Chronic Atrial fibrillation. Continue metoprolol for rate control, Eliquis for anticoagulation, renal function worsening, will hold digoxin for today and recheck level in the morning. 3. Pulmonary fibrosis. Secondary to amiodarone toxicity, stable, will monitor. 4. GERD. Continue home PPI 5. Hypothyroidism. Continue levothyroxine 6. Non-Hodgkin's lymphoma. Status post treatment in 2011 2013, now in remission. 7. Hypertension. Continue home metoprolol and spironolactone 8. Diabetes mellitus. Decrease Levemir to 50 units at bedtime, sliding scale insulin before meals and at bedtime. Will adjust insulin based on patient's needs. 9. Chronic systolic and diastolic congestive heart failure. Stable, continues prolactin, start home Lasix. 10. Chronic kidney disease. Creatinine trending up, flu was discontinued, Lasix restarted, possibly cardiorenal. DVT prophylaxis: Eliquis GI prophylaxis: Home PPI VS, I&O, 24H, Fishbone Vital Signs/I&O Vital Signs Date Time Temp Pulse Resp B/P (MAP) Pulse Ox O2 Delivery O2 Flow Rate FiO2 03/29/19 09:50 69 157/64 03/28/19 23:14 16 Room Air 03/28/19 22:00 99.4 95 I&O- Last 24 Hours up to 6 AM 03/29/19 06:00 Intake Total 1965 ml Balance 1965 ml Laboratory Data 24H LABS Laboratory Tests 2 03/28/19 14:12: Bedside Glucose (Misc Panel) 114H 03/28/19 17:25: Bedside Glucose (Misc Panel) 145H 03/28/19 20:51: Bedside Glucose (Misc Panel) 155H 03/29/19 06:05: Nucleated Red Blood Cells % (auto) 0.0, Anion Gap 8, Glomerular Filtration Rate 31.8L, Calcium Level 8.3L, Magnesium Level 1.9, Total Bilirubin 0.9, Aspartate Amino Transf (AST/SGOT) 34, Alanine Aminotransferase (ALT/SGPT) 51, Alkaline Phosphatase 118H, Total Protein 5.5L, Albumin 2.5L, Albumin/Globulin Ratio 0.83L 03/29/19 06:15: Bedside Glucose (Misc Panel) 41L 03/29/19 06:58: Bedside Glucose (Misc Panel) 94 CBC/BMP Laboratory Tests 03/29/19 06:05 Microbiology Microbiology 03/28/19 Blood Culture, Received Pending 03/28/19 Blood Culture, Received Pending BRIE STEVENSON MD Mar 29, 2019 11:43
[2019-03-29] MEDS: FUROSEMIDE 20 MG TAB PO SCH (12:56)
[2019-03-29 14:00] VITALS: BP_SYST 120; BP_SYST 140; BP_DIAS 60
[2019-03-29 16:10] VITALS: BP 155/63
[2019-03-29] MEDS ORDERED: methylPREDNISolone INJ 125 MG/2 ML VIAL (J2930) IV ONE (17:00)
[2019-03-29] MEDS: diphenhydrAMINE 25 MG CAP PO PRN (18:12)
[2019-03-29] MEDS ORDERED: LEVEMIR (INSULIN DETEMIR) 1 UNITS/0.01ML SC SCH ×2 (21:00)
[2019-03-29 22:00] VITALS: BP 178/74
[2019-03-29] MEDS: ATORVASTATIN 20 MG TAB PO SCH (22:00)
[2019-03-30] MEDS: ACETAMINOPHEN TAB 650MG DOSE (2X325MG) PO PRN ×2 (02:16→10:40)
[2019-03-30] MEDS: diphenhydrAMINE 25 MG CAP PO PRN ×3 (02:16→22:50)
[2019-03-30] MEDS: LEVOTHYROXINE 137MCG TABLET (0.137MG) PO SCH (05:57)
[2019-03-30 06:00] VITALS: BP 178/75
[2019-03-30 06:43] LABS: HEMATOCRIT 33.6 % (36.0-47.0); HEMOGLOBIN 10.9 g/dl (12.0-15.5); MEAN CORPUSCULAR HEMOGLOBIN 26.7 pg (27.0-33.0); MEAN CORPUSCULAR HGB CONC 32.4 g/dl (32.0-36.5); MEAN CORPUSCULAR VOLUME 82.4 fl (80.0-96.0); PLATELET COUNT, AUTOMATED 234 10^3/uL (150-450); RED BLOOD COUNT 4.08 10^6/uL (4.00-5.40); WHITE BLOOD COUNT 9.3 10^3/uL (4.0-10.0)
[2019-03-30 07:23] LABS: CALCIUM LEVEL 8.6 MG/DL (8.8-10.2); CREATININE FOR GFR 1.66 MG/DL (0.55-1.30); DIGOXIN LEVEL 1.5 NG/ML (0.5-2.0); GLOMERULAR FILTRATION RATE 32.4 (>39); PHOSPHORUS LEVEL 2.8 MG/DL (2.5-4.9); POTASSIUM SERUM 5.1 MEQ/L (3.5-5.1)
[2019-03-30] MEDS: HumaLOG INSULIN (NovoLOG) PER UNIT SC SCH ×4 (08:47→22:43)
[2019-03-30] MEDS: OMEPRAZOLE 20 MG CAP PO SCH (08:48)
[2019-03-30] MEDS: APIXABAN 5 MG TAB (ELIQUIS) PO SCH ×2 (08:48→22:39)
[2019-03-30] MEDS: FLUTICASONE PROP 0.05% NASAL SPRAY 16 GM (FLONASE) SCH ×2 (08:48→22:42)
[2019-03-30] MEDS: MULTIVITAMINS/MINERALS THERAP 1 TAB PO SCH (08:49)
[2019-03-30] MEDS: FUROSEMIDE 20 MG TAB PO SCH (08:50)
[2019-03-30] MEDS: METOPROLOL TARTRATE 100 MG TAB PO SCH ×2 (08:52→22:42)
[2019-03-30] MEDS: SPIRONOLACTONE 12.5MG PER 1/2 TABLET PO SCH (08:53)
[2019-03-30] MEDS ORDERED: LEVEMIR (INSULIN DETEMIR) 1 UNITS/0.01ML SC SCH (09:00)
[2019-03-30] MEDS: cefTRIAXone SOD 1 GM in D5W MINI-BAG PLUS 50 ML IV SCH (10:42)
--- NOTE | 2019-03-30 10:57 | IPNPDOC ---
Date Seen The patient was seen on 03/30/19. 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 Patient reports feeling well up until this morning when she woke up with right-sided chest pain, reproducible, radiating to her back over the rib cage, associated cough. Pain is worsened by deep inspiration, no other complaints. Patient denies any fever, any sputum production, sick contacts, diarrhea, urinary symptoms, myalgias or arthralgias. In the ED, patient was found to have a right upper lobe infiltrate, distal, concerning for pneumonia. Patient denies any nausea, vomiting, headaches, abdominal pain, diarrhea or constipation at this time. 03/29/2019 Patient reports improvement in dyspnea and pleuritic chest pain, continues to have itching, no other complaints. 03/30/2019 Patient reports significant improvement in all of her symptoms, including dyspn ea, chest pain and cough, continues to have slight itching but significantly improved from yesterday. She has no liquids at this time. 10 point review of system is negative except for above PHYSICAL EXAMINATION: VITAL SIGNS: Please see below. GENERAL: No distress HEENT: Normocephalic, atraumatic, moist mucous membranes NECK: Supple CARDIOVASCULAR EXAMINATION: S1, S2, no murmurs RESPIRATORY EXAMINATION: Scattered rhonchi, no wheezing ABDOMINAL EXAMINATION: Soft, nontender, nondistended, positive bowel sounds EXTREMITIES: Range of motion intact SKIN: No rash NEUROLOGICAL EXAMINATION: Alert and oriented 3, no focal deficits PSYCHIATRIC EXAMINATION: Calm and cooperative LABORATORY DATA: See below. IMAGING: CT chest showing right upper lobe infiltrate concerning for pneumonia MICROBIOLOGY: Please see below. ASSESSMENT: 73-year-old female with an extensive medical history, presents with acute onset pleuritic chest pain and cough with imaging concerning for pneumonia. PLAN: 1. Pneumonia Continue ceftriaxone, cultures negative to date, unable to tolerate azithromycin. 2. Chronic Atrial fibrillation. Continue metoprolol for rate control, Eliquis for anticoagulation, digoxin l evel I.5 today, continue to hold for now. 3. Pulmonary fibrosis. Secondary to amiodarone toxicity, stable, will monitor. 4. GERD. Continue home PPI 5. Hypothyroidism. Continue levothyroxine 6. Non-Hodgkin's lymphoma. Status post treatment from [id number], now in remission. 7. Hypertension. Continue home metoprolol and spironolactone 8. Diabetes mellitus. Levemir to 50 units daily, sliding scale insulin before meals and at bedtime. Will adjust insulin based on patient's needs. 9. Chronic systolic and diastolic congestive heart failure. Stable, continue spironolactone and Lasix 10. Chronic kidney disease. Creatinine trending up, Lasix restarted, possibly cardiorenal, will monitor. DVT prophylaxis: Eliquis GI prophylaxis: Home PPI VS, I&O, 24H, Fishbone Vital Signs/I&O Vital Signs Date Time Temp Pulse Resp B/P (MAP) Pulse Ox O2 Delivery O2 Flow Rate FiO2 03/30/19 08:52 76 160/64 03/30/19 06:00 98.6 16 97 Room Air I&O- Last 24 Hours up to 6 AM 03/30/19 06:00 Intake Total 1115 ml Output Total 500 ml Balance 615 ml Laboratory Data 24H LABS Laboratory Tests 2 03/29/19 11:15: Bedside Glucose (Misc Panel) 230H 03/29/19 16:19: Bedside Glucose (Misc Panel) 149H 03/29/19 20:52: Bedside Glucose (Misc Panel) 186H 03/30/19 06:04: Nucleated Red Blood Cells % (auto) 0.0, Anion Gap 9, Glomerular Filtration Rate 32.4L, Calcium Level 8.6L, Phosphorus Level 2.8, Magnesium Level 2.0, Digoxin Level 1.5 CBC/BMP Laboratory Tests 03/30/19 06:04 Microbiology Microbiology 03/28/19 Blood Culture - Preliminary, Resulted No growth after 24 hours . All specim... 03/28/19 Blood Culture - Preliminary, Resulted No growth after 24 hours . All specim... BRIE STEVENSON MD Mar 30, 2019 10:57
[2019-03-30 14:00] VITALS: BP 160/62
[2019-03-30 22:00] VITALS: BP 140/52
[2019-03-30] MEDS: ATORVASTATIN 20 MG TAB PO SCH (22:39)
[2019-03-31 03:30] VITALS: BP 121/38
[2019-03-31 06:00] VITALS: BP 121/56
[2019-03-31 06:48] LABS: HEMATOCRIT 31.5 % (36.0-47.0); HEMOGLOBIN 10.1 g/dl (12.0-15.5); MEAN CORPUSCULAR HEMOGLOBIN 26.8 pg (27.0-33.0); MEAN CORPUSCULAR HGB CONC 32.1 g/dl (32.0-36.5); MEAN CORPUSCULAR VOLUME 83.6 fl (80.0-96.0); PLATELET COUNT, AUTOMATED 266 10^3/uL (150-450); RED BLOOD COUNT 3.77 10^6/uL (4.00-5.40); WHITE BLOOD COUNT 11.9 10^3/uL (4.0-10.0)
[2019-03-31] MEDS: LEVOTHYROXINE 137MCG TABLET (0.137MG) PO SCH (06:49)
[2019-03-31 07:24] LABS: CALCIUM LEVEL 8.3 MG/DL (8.8-10.2); CREATININE FOR GFR 1.49 MG/DL (0.55-1.30); DIGOXIN LEVEL 1.1 NG/ML (0.5-2.0); GLOMERULAR FILTRATION RATE 36.7 (>39); POTASSIUM SERUM 4.5 MEQ/L (3.5-5.1)
[2019-03-31] MEDS: HumaLOG INSULIN (NovoLOG) PER UNIT SC SCH ×2 (08:26→12:21)
[2019-03-31] MEDS: APIXABAN 5 MG TAB (ELIQUIS) PO SCH (08:27)
[2019-03-31] MEDS: SPIRONOLACTONE 12.5MG PER 1/2 TABLET PO SCH (08:27)
[2019-03-31] MEDS: OMEPRAZOLE 20 MG CAP PO SCH (08:27)
[2019-03-31] MEDS: MULTIVITAMINS/MINERALS THERAP 1 TAB PO SCH (08:27)
[2019-03-31 08:28] VITALS: BP 124/62
[2019-03-31] MEDS: FLUTICASONE PROP 0.05% NASAL SPRAY 16 GM (FLONASE) SCH (08:28)
[2019-03-31] MEDS: METOPROLOL TARTRATE 100 MG TAB PO SCH (08:28)
[2019-03-31] MEDS: FUROSEMIDE 20 MG TAB PO SCH (08:28)
[2019-03-31] MEDS: diphenhydrAMINE 25 MG CAP PO PRN (08:32)
[2019-03-31] MEDS ORDERED: LEVEMIR (INSULIN DETEMIR) 1 UNITS/0.01ML SC SCH (09:00)
[2019-03-31] MEDS: cefTRIAXone SOD 1 GM in D5W MINI-BAG PLUS 50 ML IV SCH (09:41)
[2019-03-31] MEDS ORDERED: CEFD300CAP PO (12:10)
--- NOTE | 2019-03-31 16:54 | DS.PDOC ---
Discharge Summary General Date of Admission Mar 28, 2019 at 11:46 Date of Discharge 03/31/2019 Attending Physician: BRIE STEVENSON MD Discharge Summary PROCEDURES PERFORMED DURING STAY: None. ADMITTING DIAGNOSES: 1. Pneumonia. DISCHARGE DIAGNOSES: 1. Pneumonia, acute kidney injury. COMPLICATIONS/CHIEF COMPLAINT: Afib Chronic Kidney Disease Gerd Htn Pneumonia. HISTORY OF PRESENT ILLNESS: 73-year-old female with past medical history of atrial fibrillation, chronic kidney disease, pulmonary fibrosis, hypertension, GERD was admitted for pneumonia and acute on chronic kidney disease. Patient was initially treated with azithromycin and ceftriaxone, possibly had allergic react ion to azithromycin, which was then discontinued, treatment was continued with ceftriaxone. Patient also presented with mild acute kidney injury on chronic kidney disease, likely secondary to cardiorenal syndrome, treated with diuretics, renal function not close to baseline, will be discharged on home Lasix and advised to restart digoxin starting tomorrow. Patient will be discharged on Cefdinir to complete her antibiotic regimen area. Patient is clinically and hemodynamically stable for discharge and outpatient follow-up. HOSPITAL COURSE: As above. DISCHARGE MEDICATIONS: Please see below. ALLERGIES: Please see below. PHYSICAL EXAMINATION: VITAL SIGNS: Please see below. GENERAL: No distress HEENT: Normocephalic, atraumatic, moist mucous membranes NECK: Supple CARDIOVASCULAR EXAMINATION: S1, S2, no murmurs RESPIRATORY EXAMINATION: Scattered rhonchi, no wheezing ABDOMINAL EXAMINATION: Soft, nontender, nondistended, positive bowel sounds EXTREMITIES: Range of motion intact SKIN: No rash NEUROLOGICAL EXAMINATION: Alert and oriented 3, no focal deficits PSYCHIATRIC EXAMINATION: Calm and cooperative LABORATORY DATA: Please see below. IMAGING: CT with right upper lobe pneumonia PROGNOSIS: Guarded ACTIVITY: As tolerated. DIET: Cardiac DISCHARGE PLAN: Patient will follow-up with PCP in 1-2 weeks DISPOSITION: 01 Home, Self-Care. DISCHARGE INSTRUCTIONS: 1. As above. DISCHARGE CONDITION: Stable. TIME SPENT ON DISCHARGE: Greater than 34 minutes. Vital Signs/I&Os Vital Signs Date Time Temp Pulse Resp B/P (MAP) Pulse Ox O2 Delivery O2 Flow Rate FiO2 03/31/19 08:28 66 124/62 03/31/19 06:00 98.1 16 96 Room Air I&O- Last 24 Hours up to 6 AM 03/31/19 06:00 Intake Total 1300 ml Balance 1300 ml Laboratory Data Labs 24H Laboratory Tests 2 03/30/19 20:30: Bedside Glucose (Misc Panel) 394H 03/31/19 06:00: Nucleated Red Blood Cells % (auto) 0.0, Anion Gap 8, Glomerular Filtration Rate 36.7L, Calcium Level 8.3L, Digoxin Level 1.1 03/31/19 11:49: Bedside Glucose (Misc Panel) 234H CBC/BMP Laboratory Tests 03/31/19 06:00 FSBS Laboratory Tests Test 03/30/19 20:30 03/31/19 11:49 Range/Units Bedside Glucose (Misc Panel) 394 234 83-110 MG/DL Microbiology Microbiology 03/28/19 Blood Culture - Preliminary, Resulted No Growth after 72 hours. All specime... 03/28/19 Blood Culture - Preliminary, Resulted No Growth after 72 hours. All specime... Discharge Medications Scheduled Apixaban (Eliquis) 5 Mg Tab, 5 MG PO BID, (Reported) Atorvastatin Calcium (Atorvastatin Calcium) 40 Mg Tab, 40 MG PO QHS, (Reported) Cefdinir (Cefdinir) 300 Mg Capsule, 300 MG PO BID Digoxin (Digoxin) 125 Mcg Tablet, 125 MCG PO DAILY, (Reported) Fluticasone Propionate (Flonase Allergy Relief) 9.9 Ml [place].susp, 2 SPRAY NA BID, (Reported) Furosemide (Lasix) 20 Mg Tab, 20 MG PO DAILY, (Reported) Glipizide (Glipizide) 5 Mg Tab, 10 MG PO BID, (Reported) Insulin Glargine,Hum.rec.anlog (Tourona Soldeear) 300 Unit/1 Ml Insuln.pen, 150 UNIT SC DAILY, (Reported) Insulin Human Lispro (Humalog) 1 Units/0.01 Ml Inj, 1 DOSE SC ACHS, (Reported) PER SLIDING SCALE Levothyroxine Sodium (Levoxyl) 137 Mcg Tablet, 137 MCG PO DAILY, (Reported) Metoprolol Tartrate (Metoprolol Tartrate) 100 Mg Tab, 100 MG PO BID, (Reported) Multivitamins (Thera M Plus Tablet) 1 Tab Tab, 1 TAB PO DAILY, (Reported) Omeprazole (Omeprazole) 40 Mg Cap, 40 MG PO DAILY, (Reported) Potassium Chloride (K-Tab ER) 20 Meq Tab, 20 MEQ PO DAILY, (Reported) Spironolactone (Spironolactone) 25 Mg Tab, 12.5 MG PO DAILY, (Reported) Allergies Coded Allergies: sitagliptin (Verified Allergy, Mild, Rash, 07/25/18) amiodarone (Verified Adverse Reaction, Intermediate, Lung Issues, 07/25/18) latex (Verified Adverse Reaction, Mild, Risk, 07/25/18) lisinopril (Verified Adverse Reaction, Mild, cough, 07/25/18) BRIE STEVENSON MD Mar 31, 2019 16:54
== END 2019-03-31 13:30 | disposition home or self-care (01) | DRG 194 ==
LOC: EDSEX 07:53 → EDBD 07:53 → M ED 07:53 → M ED INP 11:46 → M MSPAV 13:56 → M MS5PR 03-31 02:32
PROVIDERS: ADMIT Internal Medicine; ATTEND Internal Medicine
DX: J18.9 Pneumonia, unspecified organism (principal); I48.20 Chronic atrial fibrillation, unspecified; I13.0 Hypertensive heart and chronic kidney disease with heart failure and stage 1 through stage 4 chronic kidney disease, or unspecified chronic kidney disease; I50.42 Chronic combined systolic (congestive) and diastolic (congestive) heart failure; N17.9 Acute kidney failure, unspecified; C85.90 Non-Hodgkin lymphoma, unspecified, unspecified site; E11.43 Type 2 diabetes mellitus with diabetic autonomic (poly)neuropathy; N18.9 Chronic kidney disease, unspecified; K21.9 Gastro-esophageal reflux disease without esophagitis; J84.10 Pulmonary fibrosis, unspecified; Z79.899 Other long term (current) drug therapy; Z88.8 Allergy status to other drugs, medicaments and biological substances; Z91.040 Latex allergy status; E03.9 Hypothyroidism, unspecified; Z79.4 Long term (current) use of insulin

== ENCOUNTER → 2019-04-02 | Outpatient (CLI) | payer MEDICARE ==
--- NOTE | 2019-04-02 09:50 | REP ---
Two-view chest: 04/02/2019. Indication: Preoperative assessment. Comparison: CT chest complete 5 days earlier. Findings: Compared to the CT study, no significant changes are present. Right upper lobe air space opacity is redemonstrated. There is no pleural effusion or pneumothorax. The cardiac silhouette is at the upper limits of normal in size. Impression: Persistent right upper lobe pneumonia. The suspected right lower lobe pneumonia is better demonstrated on the recent CT. Electronically Signed by Siddhartha Ureña DO 04/02/2019 09:42 A
[2019-04-02 09:59] LABS: HEMATOCRIT 37.8 % (36.0-47.0); HEMOGLOBIN 11.7 g/dl (12.0-15.5); MEAN CORPUSCULAR HEMOGLOBIN 26.2 pg (27.0-33.0); MEAN CORPUSCULAR VOLUME 84.8 fl (80.0-96.0); PLATELET COUNT, AUTOMATED 311 10^3/uL (150-450); RED BLOOD COUNT 4.46 10^6/uL (4.00-5.40); WHITE BLOOD COUNT 10.7 10^3/uL (4.0-10.0)
[2019-04-02 10:10] LABS: INR 1.16; PROTHROMBIN TIME 14.5 SECONDS (11.8-14.0)
[2019-04-02 10:33] LABS: ERYTHROCYTE SEDIMENTATION RATE 37 mm/hr (0-30)
[2019-04-02 10:42] LABS: BILIRUBIN,TOTAL 0.7 MG/DL (0.2-1.0); CALCIUM LEVEL 8.6 MG/DL (8.8-10.2); CREATININE FOR GFR 1.31 MG/DL (0.55-1.30); GLOMERULAR FILTRATION RATE 42.6 (>39); POTASSIUM SERUM 4.2 MEQ/L (3.5-5.1); TOTAL PROTEIN 5.4 GM/DL (6.4-8.2)
== END ==
LOC: M LAB 08:36
PROVIDERS: ATTEND Orthopaedic Surgery
DX: Z01.818 Encounter for other preprocedural examination (principal); M17.12 Unilateral primary osteoarthritis, left knee

== ENCOUNTER → 2019-04-21 | Outpatient (CLI) | payer OTHER ==
--- NOTE | 2019-04-21 15:21 | REPPI ---
Clinical: Pneumonia. Technique: PA and lateral. Comparison: 04/02/2019. Findings: Mediastinum and cardiac silhouette are stable and mild cardiomegaly is again suggested. The lung medina demonstrate diffuse chronic interstitial changes suggesting emphysematous disease. No focal consolidation, effusion, or pneumothorax is appreciated. Skeletal structures demonstrate osteopenia. Findings: Diffuse chronic-appearing interstitial changes. Superimposed bronchitis cannot be excluded. No focal consolidation appreciated. Electronically Signed by Jc Morel MD 04/21/2019 03:12 P
== END ==
LOC: M PLAIMG 14:53
PROVIDERS: ATTEND Physician Assistant
DX: J18.9 Pneumonia, unspecified organism (principal)

== ENCOUNTER → 2019-04-21 | Outpatient (REF) | payer OTHER ==
[2019-04-21 18:14] LABS: HEMATOCRIT 42.3 % (36.0-47.0); HEMOGLOBIN 12.7 g/dl (12.0-15.5); MEAN CORPUSCULAR HEMOGLOBIN 25.9 pg (27.0-33.0); MEAN CORPUSCULAR VOLUME 86.3 fl (80.0-96.0); PLATELET COUNT, AUTOMATED 249 10^3/uL (150-450); WHITE BLOOD COUNT 9.6 10^3/uL (4.0-10.0)
[2019-04-21 18:34] LABS: CALCIUM LEVEL 8.8 MG/DL (8.8-10.2); CREATININE FOR GFR 1.47 MG/DL (0.55-1.30); GLOMERULAR FILTRATION RATE 37.3 (>39); POTASSIUM SERUM 4.8 MEQ/L (3.5-5.1)
== END ==
LOC: M SFHCPLAZ 14:37
PROVIDERS: ATTEND Physician Assistant
DX: Z01.818 Encounter for other preprocedural examination (principal)

== ENCOUNTER 2019-04-28 08:41 | Inpatient (IN) | payer MEDICARE ==
--- NOTE | 2019-04-12 07:19 | HPE ---
DATE OF ADMISSION: 04/28/2019 CHIEF COMPLAINT: Left knee pain. HISTORY OF PRESENT ILLNESS: Judy is a pleasant 73-year-old female with progressively worsening left knee pain and stiffness. She has failed to improve with conservative treatment. She has elected for surgery for her continued symptoms. She has pain with weightbearing activities and her activities of daily living. X-rays of her knee are notable for advanced osteoarthritis of the left knee joint. She has consented for a left total knee arthroplasty by Dr. Yoshi Ramirez. Medical optimization will be performed by Argelia Anton on 04/14/2019. ALLERGIES: - LISINOPRIL - AMIODARONE - ERYTHROMYCIN CURRENT MEDICATIONS: Glipizide 5 mg, omeprazole 40 mg, digoxin 125 mcg, furosemide 20 mg, potassium 20 mEq, spironolactone 25 mg, Eliquis 5 mg, atorvastatin 40 mg, metoprolol 100 mg, Toujeo 150 units, and Humalog per scale. PAST MEDICAL HISTORY: Includes diabetes, high blood pressure, heart disease, lung issues, high cholesterol and hypothyroidism. PAST SURGICAL HISTORY: Includes umbilical and inguinal hernia repairs, tubal ligation, left carpal tunnel, left knee arthroscopy, left shoulder arthroscopy, right total knee arthroplasty, cataract removal, vitrectomy, corneal transplant, Kerry procedure, biopsy of the left neck, biopsy of right neck and right parotid gland removal. SOCIAL HISTORY: Judy is retired. She does not smoke and rarely drinks alcohol. FAMILY HISTORY: Noncontributory. REVIEW OF SYSTEMS: This patient denies chest pain, heart palpitations, cough, wheezing, difficulty breathing or shortness of breath. She denies abdominal pain, nausea, vomiting, diarrhea or constipation. She denies recent upper respiratory infection or urinary tract infection symptoms. She does complain of persistent pain in the left knee. Additionally, it should be noted that she is recovering from walking pneumonia. She was asymptomatic leading up until being diagnosed with a chest x-ray. PHYSICAL EXAMINATION: General: She is a well-nourished, well-developed, in no acute distress, alert female patient. She ambulates with a moderate limp favoring the left lower extremity. She is using a single-leg cane. Vital Signs: She is 60 inches tall, weighs 176 pounds, with a temperature of 97 degrees Fahrenheit, blood pressure 128/70, pulse of 70, and respirations of 12. Neck was supple without adenopathy or jugular venous distention. There were no carotid bruits appreciated upon auscultation. Lungs were clear to auscultation without rales or wheeze throughout. Heart: Regular rate and rhythm with an audible murmur in the aortic and pulmonic valve locations. Abdomen: Bowel sounds were present. Extremities: Examination of the knee revealed intact skin. Otherwise, she had decreased range of motion due to pain and stiffness. The limb is neurovascularly intact. LABORATORY DATA: EKG showed sinus rhythm at 81 beats per minute. Chest x-ray showed persistent right upper lobe pneumonia, suspected right lower lobe pneumonia is better demonstrated on the recent CT. Protime 14.5, INR 1.16. CBC showed a white count of 10.7, hemoglobin 11.7, MCH of 26.2, MCHC of 31.0, RDW of 14.6, otherwise within normal limits. Sed rate was 37, glucose 205, BUN 26, creatinine 1.31, for a day GFR of 42.6, sodium 143, potassium 4.2. IMPRESSION: 1. Symptomatic osteoarthritis of the left knee joint. 2. Resolving right upper lobe pneumonia. PLAN: The plan is to go ahead with a left total knee arthroplasty as consented by Dr. Yoshi Ramirez. The patient is going to see Argelia Anton on the for medical optimization and clearance. I would like her to repeat a chest x-ray which I am thinking she would do anway. Judy has finished her antibiotics for her pneumonia and pending a repeat chest x-ray is hopefully going to be cleared for surgery. She communicated understanding and agreement to the plan. For further details, please refer to the chart.
[~2019-04-28] VITALS: Ht 154.9 cm; Wt 78.0 kg
[~2019-04-28 08:41] MED LIST changes: +BUPIVACAINE HCL 0.25% 10 ML VIAL As Ordered ONE; +BUPIVACAINE LIPOSOME/PF 1.3% 20ML VIAL (13.3MG/ML)(EXPAREL)(C9290 PER1MG) As Ordered ONE; +EPINEPHrine INJ 1 MG/ML 1ML VIAL As Ordered ONE; +LIDOCAINE 1% MDV 20ML VIAL SQ PRN; +LR 1,000 ML IV ONE; +TRANEXAMIC ACID 100 MG/ML 10ML VIAL As Ordered ONE; +ceFAZolin 1GM INJ (J0690 PER 500MG) As Ordered ONE; +ceFAZolin SOD 2 GM in IV 1 EA IV ONE
[2019-04-28] MEDS ORDERED: MAPA500C PO (09:55)
[2019-04-28] MEDS ORDERED: ACETAMINOPHEN 500 MG TAB PO ONE (10:45)
[2019-04-28] MEDS ORDERED: ONDANSETRON 4MG/2ML VIAL (J2405) As Ordered ONE (11:09)
[2019-04-28] MEDS ORDERED: LIDOCAINE 2% INJ 100 MG/5 ML SDV (FOR ANES.) As Ordered ONE (11:09)
[2019-04-28] MEDS ORDERED: dexameTHASONE 4 MG/ML 1ML VIAL (J1100) As Ordered ONE (11:09)
[2019-04-28] MEDS ORDERED: fentaNYL 100 MCG/2 ML INJECTION (J3010) As Ordered ONE ×4 (11:09→12:47)
[2019-04-28] MEDS ORDERED: ROCURONIUM BROMIDE 50 MG/5 ML VIAL As Ordered ONE (11:09)
[2019-04-28] MEDS ORDERED: PROPOFOL 200 MG/20 ML VIAL As Ordered ONE (11:09)
[2019-04-28] MEDS ORDERED: MIDAZOLAM INJ 2 MG/2 ML VIAL (J2250) As Ordered ONE ×2 (11:09→11:32)
[2019-04-28] MEDS: MIDAZOLAM INJ 2 MG/2 ML VIAL (J2250) IV SCH ×2 (11:55→11:59)
[2019-04-28] MEDS: fentaNYL 100 MCG/2 ML INJECTION (J3010) IV SCH ×2 (11:55→11:59)
[2019-04-28] MEDS ORDERED: PROPOFOL 500 MG/50 ML VIAL As Ordered ONE (12:28)
[2019-04-28] MEDS ORDERED: dexameTHASONE 10 MG/1 ML VIAL PRES.FREE (J1100) ONE (14:39)
[2019-04-28] MEDS ORDERED: EPINEPHrine INJ 1 MG/ML 1ML VIAL ONE (14:39)
[2019-04-28] MEDS ORDERED: ROPIvacaine 0.5% 30 ML INJECTION (J2795 PER 1MG) ONE (14:39)
[2019-04-28] MEDS ORDERED: MORPHINE 2 MG/ML 1ML VIAL (J2270) IV PRN ×2 (15:00)
[2019-04-28] MEDS: LR 1,000 ML IV SCH ×2 (15:00→22:27)
[2019-04-28] MEDS ORDERED: METOCLOPRAMIDE INJ 10MG/2ML VIAL (J2765) IV PRN (15:00)
[2019-04-28] MEDS ORDERED: ONDANSETRON 4MG/2ML VIAL (J2405) IV PRN ×2 (15:00)
[2019-04-28] MEDS ORDERED: fentaNYL 100 MCG/2 ML INJECTION (J3010) IV PRN (15:00)
[2019-04-28] MEDS ORDERED: oxyCODONE 5MG TAB PO PRN (15:00)
[2019-04-28] MEDS ORDERED: LR 1,000 ML IV SCH (15:15)
--- NOTE | 2019-04-28 15:25 | REP ---
Left knee: Two views. History: Postop evaluation status post total knee. Findings: AP and lateral views of the left knee demonstrate anterior skin hunter. Patellar, femoral, and tibial prosthetic components appear well aligned. Vascular calcifications noted. Periarticular soft tissue emphysema is seen. Impression: Status post left knee arthroplasty. Electronically Signed by Carroll Huizar MD 04/28/2019 03:17 P
[2019-04-28 15:45] VITALS: BP 123/58
[2019-04-28 16:14] VITALS: BP 113/63
[2019-04-28] MEDS ORDERED: DEXTROSE 50% 50 ML SYRINGE IV PRN (16:30)
[2019-04-28] MEDS ORDERED: GLUCAGON FOR INJ 1 MG VIAL (J1610) SC PRN (16:30)
[2019-04-28] MEDS ORDERED: GLUCOSE 4 GM CHEW TABLET PO PRN (16:30)
--- NOTE | 2019-04-28 16:35 | CR.PDOC ---
General Date of Consultation: Apr 28, 2019 Consultation REASON FOR CONSULTATION/CHIEF COMPLAINT: Left TKA; consult per Dr. Ramirez for medical comorbidities HISTORY OF PRESENT ILLNESS: Ms. Vega is a 73 year old female who has had OA of the left knee with worsening pain and stiffness over several years. Pt failed conservative/outpatient therapy and has elected to have a total knee replacement. She has previously had the right knee done due to the same symptoms and is prepared for the recovery period ahead. Mar.28, pt was diagnosed with pneumonia and completed treatment with Levaquin; she had been diagnosed with pneumonia and treated in 2018. ALLERGIES: Please see below. HOME MEDICATIONS: Please see below. PAST MEDICAL HISTORY: 1. Diabetes 2. Hypertension 3. Atrial Fibrillation/Flutter 4. HF, grade II diastolic dysfunction 5. Hyperlipidemia 6. Pulmonary Fibrosis, 2/2 Amiodarone toxicity 7. Hypothyroid 8. DEVEN with CPAP 9. Gastroparesis 10.GERD 11. Macular Degeneration 12. Cataracts 13. History of Follicular Non-Hodgkin 14. Lymphoma in remission 15. History of Asthma PAST SURGICAL HISTORY: 1. Right parathyroidectomy 2. Cardiac ablation, 2015 3. Right TKA, 2010 4. Infusaport - left chest 5. Left Rotator Cuff 6. Tubal Ligation 7. Cataracts removed bilaterally 8. Right parotidectomy 9. Cholecystectomy 10. Hernia repair (umbilical, childhood) 11. Right thumb LCTR 12. Sinus surgery 13. Left vitreous hemorrhage b/l, 2013 FAMILY HISTORY: Father: CAD, HTN, DM Mother: HTN, DM, hypothyroidism Siblings: DM, HTN in all 4 siblings Children: Daughter - DM, HTN, hypothyroidism, Daughter - HTN, repaired brain aneurysm SOCIAL HISTORY: Tobacco use:never smoked ETOH:Denied Illicit drug use: Denied IV drug use: Denied Other relevant social factors: Pt has had Pneumovax and Prevnar 13 REVIEW OF SYSTEMS: A 12 point ROS is negative, unless noted in HPI PHYSICAL EXAMINATION: VITAL SIGNS: Please see below. General: No acute distress, Alert Eyes: L scarring s/p remote vitreal hemorrhage, REGINALDO HENT: Atraumatic, neck supple, moist mucous membranes Cardiovascular: RRR. Grade 3/6 holosystolic murmur, S1S2 intact Pulmonary: Clear to auscultation b/l, no wheezing GI: Soft, nontender, nondistended Skin: Warm and dry Neuro: CN grossly intact. No focal deficits. Strengths equal b/l - pt able to raise both LEs, no post-surgical pain Psych: oriented x 3 LABORATORY DATA: Please see below. ASSESSMENT/PLAN: Ms. Vega is a 73 year old female who has had OA of the left knee with worsening pain and stiffness over several years. Pt failed conservative/outpatient therapy and has elected to have a total knee replacement. She has previously had the right knee done due to the same symptoms and is prepared for the recovery period ahead. Mar.28, pt was diagnosed with pneumonia and completed treatment with Levaquin; she had been diagnosed with pneumonia and treated in 2018. Pt is seen post-op and is doing remarkably well. She has no pain at this time and is hemodynamically stable at this time. She will be transferred to the Med-Surg floor for management s/p L TKA. Left TKA - pain and management per ortho - 5mg BID held 5 days prior to surgery. Scheduled to resume 2.5mg BID in 48hrs. 1. Diabetes - hold PO and outpt Toujeo medications - Insulin per SS while inpatient 2. Hypertension - resume Metoprolol tonight 3. Atrial Fibrillation/Flutter - resume Digoxin tonight 4. HF, grade II diastolic dysfunction - resume Lasix tomorrow a.m. - hold Spironolactone 5. Hyperlipidemia - resume statin tonight 6. Pulmonary Fibrosis, 2/2 Imuran toxicity - see CXR below 7. Hypothyroid - continue Levothyroxine 8. DEVEN with CPAP - Elevate HOB - O2 therapy to maintain oxygen > 92% 10.GERD - continue Omeprazole 11. History of Pneumonia - CXR 04/21/19 Impression: "Diffuse chronic-appearing interstitial changes. Superimposed bronchitis cannot be excluded. No focal consolidation appreciated." - encourage early use of spirometry device post-op - consider DuoNeb prn for cough, wheezing Vital Signs/I&O Vital Signs Date Time Temp Pulse Resp B/P (MAP) Pulse Ox O2 Delivery O2 Flow Rate FiO2 04/28/19 15:10 96.5 67 15 128/63 (84) 100 Nasal Cannula 2 Laboratory Data Labs 24H Laboratory Tests 2 04/28/19 10:22: Bedside Glucose (Misc Panel) 134H Allergies Coded Allergies: erythromycin base (Verified Allergy, Intermediate, rash, 04/28/19) sitagliptin (Verified Allergy, Intermediate, Rash, 1/6/20) amiodarone (Verified Adverse Reaction, Intermediate, Lung Issues, 04/18/19) latex (Verified Adverse Reaction, Mild, Risk, 04/18/19) lisinopril (Verified Adverse Reaction, Mild, cough, 04/18/19) Home Medications Scheduled Apixaban (Eliquis) 5 Mg Tab, 5 MG PO BID, (Reported) Atorvastatin Calcium (Atorvastatin Calcium) 40 Mg Tab, 40 MG PO QHS, (Reported) Digoxin (Digoxin) 125 Mcg Tablet, 125 MCG PO DAILY, (Reported) Fluticasone Propionate (Flonase Allergy Relief) 9.9 Ml Gruver.susp, 2 SPRAY NA DAILY, (Reported) Furosemide (Lasix) 20 Mg Tab, 20 MG PO DAILY, (Reported) Glipizide (Glipizide) 5 Mg Tab, 10 MG PO BID, (Reported) Insulin Glargine,Hum.rec.anlog (Toujeo Solostar) 300 Unit/1 Ml Insuln.pen, 150 UNIT SC DAILY, (Reported) Insulin Human Lispro (Humalog) 1 Units/0.01 Ml Inj, 1 DOSE SC ACHS, (Reported) PER SLIDING SCALE Levothyroxine Sodium (Levoxyl) 137 Mcg Tablet, 137 MCG PO DAILY, (Reported) Metoprolol Tartrate (Metoprolol Tartrate) 100 Mg Tab, 100 MG PO BID, (Reported) Multivitamins (Thera M Plus Tablet) 1 Tab Tab, 1 TAB PO DAILY, (Reported) Omeprazole (Omeprazole) 40 Mg Cap, 40 MG PO DAILY, (Reported) Potassium Chloride (K-Tab ER) 20 Meq Tab, 20 MEQ PO DAILY, (Reported) Spironolactone (Spironolactone) 25 Mg Tab, 12.5 MG PO DAILY, (Reported) Scheduled PRN Acetaminophen (Mapap) 500 Mg Capsule, 500 MG PO Q4-6HP PRN for PAIN, (Reported) Oxycodone HCl/Acetaminophen (Percocet 5-325 mg Tablet) 1 Each Tablet, 1 TAB PO Q4H PRN for PAIN, #30 SAMMI COUGHLIN PA-C Apr 28, 2019 16:34
[2019-04-28 17:15] VITALS: BP 124/65
[2019-04-28] MEDS: HumaLOG INSULIN (NovoLOG) PER UNIT SC SCH ×2 (17:30→21:21)
[2019-04-28 18:15] VITALS: BP 137/83
[2019-04-28 20:34] VITALS: BP 106/57
--- NOTE | 2019-04-28 20:42 | RO ---
DATE OF PROCEDURE: 04/28/2019 PREPROCEDURE DIAGNOSIS: Left knee degenerative arthritis. POSTPROCEDURE DIAGNOSIS: Left knee degenerative arthritis. PROCEDURE: Left total knee arthroplasty using a size 4 Attune cruciate-retaining femoral component cemented with a size 2 Attune tibial tray with a 6 mm rotating platform polyethylene insert and a 32 mm polyethylene button. Prosthesis was made by [employer]. SURGEON: Dr. Gillian Ramirez MANAGER ANIMAL: Ms. Kelsea Bansal ANESTHESIA: Spinal with left femoral nerve block. COMPLICATIONS: None. ESTIMATED BLOOD LOSS: 100 mL. SPECIMENS: Joint surface. DESCRIPTION OF PROCEDURE: Antibiotics were given intravenously preoperatively, successful left femoral nerve block, and then a spinal anesthetic was induced. Tourniquet was placed on the left upper thigh and not inflated. Left lower extremity was carefully prepped and draped in the usual sterile fashion. And after appropriate time out with the leg elevated, the tourniquet was then inflated to 250 mmHg. A longitudinal incision was made for a medial parapatellar approach to the knee. Bovie cautery was used to coagulate crossing vessels. Subperiosteal dissection around the proximal medial and lateral tibial plateau was performed. Then, the patella was everted, the knee flexed, the anterior cruciate ligament (ACL) debrided, drill placed down the center of the femoral canal, followed by the intramedullary rohit. The distal femoral cutting jig set at 5 degree valgus cut for a left knee at 9 mm resection level. Block was pinned into position, distal femoral cut was thus performed. The AP sizing jig measured for a size 4. Three degrees of external rotation were dialed in, the pins placed, 4-in-1 block applied, and then the anterior, posterior, chamfer cuts performed. The jig for the notchplasty was then applied, and a notchplasty performed for the sulcus cut. The proximal tibia was then exposed. We used the extramedullary alignment jig to estimate being parallel to the mechanical axis of the tibia. We referenced off the medial tibial condyle, 4 mm resection level. The block was pinned into position. Secondary check with the extramedullary rohit confirmed we appeared to be parallel to the mechanical axis. The proximal tibial osteotomy was performed. The lamina stack supervisor was then placed laterally, and we performed and completion medial meniscectomy and debridement of the posteromedial osteophytes. We then placed the lamina stack supervisor medially and performed a completion lateral meniscectomy and debridement of the posterolateral osteophytes. The spacer blocks were then applied, and the 6 mm spacer block appeared to fit well both in flexion and in extension with good symmetry to varus/valgus stress testing. I did make sure we had adequate posteromedial release to help make sure there was no excessive medial tightness. We then exposed the proximal tibia, sized for a #2 tibial tray, and then the trial polyethylene was placed, followed by the trial femoral component. Then, we brought the knee into extension, everted the patella and performed a patellar osteotomy and then sized for a 32 button. Lug holes were drilled, trial placed, patellofemoral tracking was anatomic. We then drilled the lug holes for the femur, removed all the trial components, placed Exparel in the subperiosteal tissues around the distal femur and the proximal tibia. Then, Ms Kelsea Rolf mixed the cement on the back table as I prepared the bony surfaces for cementing. She was also critical to the success of this difficult procedure by helping to manipulate the knee, helped with appropriate soft tissue retraction, helped to close the wound, helped to mix the cement, amongst many other tasks to allow me to perform the operation smoothly, efficiently, and safely. When all the bony surfaces were thoroughly irrigated and dried, I cemented the tibial tray, removed the excess cement, placed the polyethylene and cemented the femoral component, removed the excess cement, brought the knee into extension, cemented the patellar button, held it with a clamp and then removed excess cement and held it in position with the knee in extension until the cement hardened. We copiously irrigated out the knee joint as we were awaiting this, and then placed tranexamic acid into the knee joint. The apex of the arthrotomy was closed with #1 PDS sutures and one medial parapatellar area a suture was placed, and then we closed the capsule with a double-armed running #1 Stratafix suture, then released the tourniquet. We irrigated between layers, closed the deep subdermal tissues with interrupted #2-0 PDS sutures, skin was closed with hunter, covered by an Optifoam and a dry sterile bulky dressing. She was then transferred to the recovery room in stable condition, and there were no intraoperative complications.
[2019-04-28] MEDS: METOPROLOL TARTRATE 100 MG TAB PO SCH (20:56)
[2019-04-28] MEDS: ATORVASTATIN 20 MG TAB PO SCH (21:21)
[2019-04-28] MEDS: ceFAZolin SOD 2 GM in IV 1 EA IV SCH (21:21)
[2019-04-28] MEDS: PERCOCET 5MG/325MG TAB PO PRN (21:31)
[2019-04-28] MEDS: MORPHINE 4 MG/ML 1ML VIAL/SYRINGE (J2270) IV PRN (23:00)
[2019-04-29] MEDS: MORPHINE 4 MG/ML 1ML VIAL/SYRINGE (J2270) IV PRN (01:16)
[2019-04-29 02:15] VITALS: BP 126/80
[2019-04-29] MEDS: PERCOCET 5MG/325MG TAB PO PRN ×4 (03:36→22:10)
[2019-04-29] MEDS: LEVOTHYROXINE 137MCG TABLET (0.137MG) PO SCH (05:18)
[2019-04-29] MEDS: ceFAZolin SOD 2 GM in IV 1 EA IV SCH ×2 (05:18→12:00)
[2019-04-29] MEDS ORDERED: PERCOCET 5MG/325MG TAB PO ONE (06:15)
[2019-04-29 06:18] VITALS: BP 164/70
[2019-04-29] MEDS ORDERED: PERC5TAB12 PO (06:24)
[2019-04-29 06:55] LABS: HEMATOCRIT 30.3 % (36.0-47.0); HEMOGLOBIN 9.4 g/dl (12.0-15.5); MEAN CORPUSCULAR HEMOGLOBIN 25.9 pg (27.0-33.0); MEAN CORPUSCULAR VOLUME 83.5 fl (80.0-96.0); PLATELET COUNT, AUTOMATED 207 10^3/uL (150-450); RED BLOOD COUNT 3.63 10^6/uL (4.00-5.40); WHITE BLOOD COUNT 12.9 10^3/uL (4.0-10.0)
[2019-04-29 07:22] LABS: ALBUMIN 2.8 GM/DL (3.2-5.2); BILIRUBIN,TOTAL 0.8 MG/DL (0.2-1.0); CALCIUM LEVEL 8.7 MG/DL (8.8-10.2); CREATININE FOR GFR 1.47 MG/DL (0.55-1.30); GLOMERULAR FILTRATION RATE 37.3 (>39); POTASSIUM SERUM 4.9 MEQ/L (3.5-5.1); TOTAL PROTEIN 5.3 GM/DL (6.4-8.2)
[2019-04-29] MEDS: HumaLOG INSULIN (NovoLOG) PER UNIT SC SCH ×4 (08:24→20:35)
[2019-04-29] MEDS: MIRALAX *UNIT DOSE* 17GM PACKET PO SCH (08:24)
[2019-04-29] MEDS: FLUTICASONE PROP 0.05% NASAL SPRAY 16 GM (FLONASE) SCH (08:24)
[2019-04-29] MEDS: FUROSEMIDE 20 MG TAB PO SCH (08:25)
[2019-04-29] MEDS: MOM 30ML SUSPENSION UDC PO SCH (08:25)
[2019-04-29] MEDS: OMEPRAZOLE 20 MG CAP PO SCH (08:27)
[2019-04-29] MEDS: DIGOXIN 0.125 MG TAB PO SCH (08:27)
[2019-04-29] MEDS: METOPROLOL TARTRATE 100 MG TAB PO SCH ×2 (08:27→20:35)
[2019-04-29 14:35] VITALS: BP 157/52
--- NOTE | 2019-04-29 16:12 | IPNPDOC ---
Subjective Date Seen The patient was seen on 04/29/19. Subjective Chief Complaint/HPI Ms. Vega is a 73 year old female who has had OA of the left knee with worsening pain and stiffness over several years. Pt failed conservative/outpatient therapy and has elected to have a total knee replacement. Pt is seen laying in bed this morning. She was seen by PT, she has some pain this morning but she continues to amaze me with her resilience. She reported she expected this pain as she just finished PT. She plans to push herself to repeat her exercises and get dressed for the day. I have encouraged her to take it a little easy right now, stay on top of the pain medications and once the pain has eased, to ease into her PT. She is looking forward to going home tomorrow if she can. General: Denies: Chills, Night Sweats, Fatigue, Malaise Constitutional: Denies: Chills, Fever, Night Sweats Eyes: Denies: Pain ENT: Denies: Head Aches Pulmonary: Denies: Dyspnea, Cough Cardiovascular: Denies: Chest Pain, Palpitations, Orthopnea, Paroxysmal Noc. Dyspnea, Edema, Lt Headedness Gastrointestinal: Denies: Nausea, Vomiting, Abdominal Pain Genitourinary: Denies: Dysuria, Frequency Musculoskeletal: Denies: Neck Pain, Back Pain, Joint Pain, Muscle Pain, Spasms Neurological: Denies: Weakness, Confusion Psych: Reports: Mood Normal Attending Note 73 year old W who was admitted for observation s/p elective left knee arthroplasty, who did well over the 24h post surgery for whom medicine was consulted for medical management. He course was relatively uncomplicated and was cleared by PT for discharge home today. Her pain will be managed with Percocet per surgical team and she was resumed on 2.5 BID of eliquis, and will follow up outpatient. When I saw. Ms. Vega this morning she was not sure that she was ready to go home but after working well with PT, she she is now being discharged home by the primary surgical team. Objective Physical Examination General Exam: Positive: Alert, Cooperative, No Acute Distress Eye Exam: Positive: PERRLA, Conjunctiva & lids normal, Other Eye Symptoms (scarring and blindness L eye 2/2 vitreal hemorrhage ) ENT Exam: Positive: Atraumatic, Mucous membr. moist/pink, Pharynx Normal, Tongue Midline Neck Exam: Positive: Supple; Negative: thyromegaly Chest Exam: Positive: Clear to auscultation, Normal air movement Heart Exam: Positive: Rate Normal, Murmurs (RRR. Grade 3/6 holosystolic murmur, S1S2 intact ); Negative: Gallops, Rubs Abdomen Exam: Positive: Normal bowel sounds, Soft; Negative: Tenderness Extremity Exam: Negative: Clubbing, Cyanosis, Edema, Normal pulses Skin Exam: Positive: Nl turgor and temperature (L knee, surgical site - no redness, minimal swelling, no TTP around the joint ) Neuro Exam: Positive: Normal Speech, Cranial Nerves 3-12 NL Psych Exam: Positive: Mood NL Assessment /Plan Assessment Ms. Vega is a 73 year old female who has had OA of the left knee with worsening pain and stiffness over several years. Pt failed conservative/outpatient therapy and has elected to have a total knee replacement. She has previously had the right knee done due to the same symptoms and is prepared for the recovery period ahead. Mar.28, pt was diagnosed with pneumonia and completed treatment with Levaquin; she had been diagnosed with pneumonia and treated in 2018. Pt is seen post-op and is doing remarkably well. She has no pain at this time and is hemodynamically stable at this time. She will be transferred to the Med-Surg floor for management s/p L TKA. Left TKA - pain and management per ortho - 5mg BID held 5 days prior to surgery. Scheduled to resume 2.5mg BID in 48hrs. 1. Diabetes - hold PO and outpt Toujeo medications - Insulin per SS while inpatient 2. Hypertension - resume Metoprolol tonight 3. Atrial Fibrillation/Flutter - resume Digoxin tonight 4. HF, grade II diastolic dysfunction - continue Lasix - hold Spironolactone 5. Hyperlipidemia - continue statin 6. Pulmonary Fibrosis, 2/2 Imuran toxicity - see CXR below 7. Hypothyroid - continue Levothyroxine 8. DEVEN with CPAP - Elevate HOB - O2 therapy to maintain oxygen > 92% 10.GERD - continue Omeprazole 11. History of Pneumonia - CXR 04/21/19 Impression: "Diffuse chronic-appearing interstitial changes. Superimposed bronchitis cannot be excluded. No focal consolidation appreciated." - encouraged use of spirometry device post-op - consider DuoNeb prn for cough, wheezing 12. CKD - currently within her baseline; continue Lasix - noted her Cr increased abruptly in January. Pharmacy will check to see if this coincides with Spironolactone therapy. - monitor CMP qam Plan/VTE VTE Prophylaxis Ordered?: Yes (sequentials ) VS, I&O, 24H, Fishbone Vital Signs/I&O Vital Signs Date Time Temp Pulse Resp B/P (MAP) Pulse Ox O2 Delivery O2 Flow Rate FiO2 04/29/19 11:17 18 Room Air 04/29/19 08:27 89 149/58 04/29/19 06:18 97.4 99 2.0 I&O- Last 24 Hours up to 6 AM 04/29/19 06:00 Intake Total 2070 ml Output Total 800 ml Balance 1270 ml Laboratory Data 24H LABS Laboratory Tests 2 04/28/19 16:38: Bedside Glucose (Misc Panel) 160H 04/28/19 20:32: Bedside Glucose (Misc Panel) 280H 04/29/19 06:03: Nucleated Red Blood Cells % (auto) 0.0, Anion Gap 10, Glomerular Filtration Rate 37.3L, Calcium Level 8.7L, Total Bilirubin 0.8, Aspartate Amino Transf (AST/SGOT) 51H, Alanine Aminotransferase (ALT/SGPT) 51, Alkaline Phosphatase 85, Total Protein 5.3L, Albumin 2.8L, Albumin/Globulin Ratio 1.12 04/29/19 11:40: Bedside Glucose (Misc Panel) 168H CBC/BMP Laboratory Tests 04/29/19 06:03 SAMMI COUGHLIN PA-C Apr 29, 2019 16:12 EMILY BORREGO MD Apr 29, 2019 18:50
[2019-04-29 20:13] VITALS: BP 115/55
[2019-04-29] MEDS: ATORVASTATIN 20 MG TAB PO SCH (20:35)
[2019-04-30] MEDS: PERCOCET 5MG/325MG TAB PO PRN ×2 (02:27→06:36)
[2019-04-30] MEDS: LEVOTHYROXINE 137MCG TABLET (0.137MG) PO SCH (05:27)
[2019-04-30 05:44] VITALS: BP 124/51
[2019-04-30 06:44] LABS: HEMATOCRIT 28.1 % (36.0-47.0); HEMOGLOBIN 8.7 g/dl (12.0-15.5); MEAN CORPUSCULAR HEMOGLOBIN 26.3 pg (27.0-33.0); MEAN CORPUSCULAR VOLUME 84.9 fl (80.0-96.0); PLATELET COUNT, AUTOMATED 179 10^3/uL (150-450); RED BLOOD COUNT 3.31 10^6/uL (4.00-5.40); WHITE BLOOD COUNT 12.9 10^3/uL (4.0-10.0)
[2019-04-30 07:09] LABS: ALBUMIN 2.5 GM/DL (3.2-5.2); BILIRUBIN,TOTAL 0.6 MG/DL (0.2-1.0); CALCIUM LEVEL 8.2 MG/DL (8.8-10.2); CREATININE FOR GFR 1.26 MG/DL (0.55-1.30); GLOMERULAR FILTRATION RATE 44.6 (>39); POTASSIUM SERUM 4.7 MEQ/L (3.5-5.1); TOTAL PROTEIN 5.1 GM/DL (6.4-8.2)
[2019-04-30] MEDS: HumaLOG INSULIN (NovoLOG) PER UNIT SC SCH (08:25)
[2019-04-30] MEDS: FUROSEMIDE 20 MG TAB PO SCH (08:25)
[2019-04-30] MEDS: OMEPRAZOLE 20 MG CAP PO SCH (08:26)
[2019-04-30] MEDS: MOM 30ML SUSPENSION UDC PO SCH (08:26)
[2019-04-30] MEDS: DIGOXIN 0.125 MG TAB PO SCH (08:26)
[2019-04-30 08:27] VITALS: BP 124/51
[2019-04-30] MEDS: METOPROLOL TARTRATE 100 MG TAB PO SCH (08:27)
[2019-04-30] MEDS: FLUTICASONE PROP 0.05% NASAL SPRAY 16 GM (FLONASE) SCH (08:27)
[2019-04-30] MEDS: MIRALAX *UNIT DOSE* 17GM PACKET PO SCH (08:32)
[2019-04-30] MEDS ORDERED: APIXABAN 2.5 MG TAB (ELIQUIS) PO SCH (09:00)
--- NOTE | 2019-05-02 20:00 | DSES ---
DATE OF ADMISSION: 04/28/2019 DATE OF DISCHARGE: 04/30/2019 ATTENDING PHYSICIAN: Dr. Yoshi Ramirez ADMISSION DIAGNOSIS: Osteoarthritis, left knee. OTHER DIAGNOSES: 1. Diabetes. 2. Hypertension. 3. Atrial fibrillation/flutter. 4. Elevated lipids. 5. Pulmonary fibrosis. 6. Hypothyroidism. 7. Sleep apnea. 8. Gastric reflux disease. DISCHARGE DIAGNOSIS: Osteoarthritis, left knee status post left total knee arthroplasty. OPERATION PERFORMED: Left total knee arthroplasty. HISTORY: A 73-year-old female patient with progressively worsening left knee pain and stiffness. She failed to improve with conservative management. She was admitted for elective knee replacement on the left side. HOSPITAL COURSE: The patient was admitted on the day of surgery and underwent a left total knee arthroplasty which was uneventful. She did well postoperative period and her hospital course was without complications. She was up with physical therapy per the protocol and her pain was controlled. On the day of discharge, she was weightbearing as tolerated on the left lower extremity. She will move her left knee to prevent stiffness. She will use oral pain medications for pain control. She will resume her 2.5 mg twice a day of Eliquis for deep vein thrombosis (DVT) prophylaxis which is her preoperative medication. She will use her thromboembolic-deterrent (KHANH) stockings for 30 days postoperatively also for DVT prophylaxis. She will resume her other medications and diet that she was using preoperatively. She will followup with her primary college and career counselor as well as she will followup in our office in 10-14 days for surgical followup. She was given instructions to include but not limited to wound monitoring and activity limitations. Please refer to the medical record further details.
== END 2019-04-30 08:55 | disposition home or self-care (01) | DRG 470 ==
LOC: M OR 08:41 → M MS5PR 15:30
PROVIDERS: ADMIT Orthopaedic Surgery; ATTEND Orthopaedic Surgery
PROC: 0SRD0J9 Replacement of Left Knee Joint with Synthetic Substitute, Cemented, Open Approach (ICD-10-PCS; principal; 2019-04-28 12:10)
DX: M17.12 Unilateral primary osteoarthritis, left knee (principal); I50.32 Chronic diastolic (congestive) heart failure; I48.92 Unspecified atrial flutter; I11.0 Hypertensive heart disease with heart failure; E78.5 Hyperlipidemia, unspecified; E11.43 Type 2 diabetes mellitus with diabetic autonomic (poly)neuropathy; Z88.1 Allergy status to other antibiotic agents; Z88.8 Allergy status to other drugs, medicaments and biological substances; Z79.899 Other long term (current) drug therapy; Z79.4 Long term (current) use of insulin; E03.9 Hypothyroidism, unspecified; I48.91 Unspecified atrial fibrillation; G47.33 Obstructive sleep apnea (adult) (pediatric); J45.909 Unspecified asthma, uncomplicated; H35.30 Unspecified macular degeneration; J84.10 Pulmonary fibrosis, unspecified; Z96.651 Presence of right artificial knee joint

== ENCOUNTER 2019-05-10 16:11 | Emergency (ER) | payer MEDICARE ==
[~2019-05-10] VITALS: Ht 154.9 cm; Wt 77.3 kg
[~2019-05-10 16:11] MED LIST changes: -BUPIVACAINE HCL 0.25% 10 ML VIAL As Ordered ONE; -BUPIVACAINE LIPOSOME/PF 1.3% 20ML VIAL (13.3MG/ML)(EXPAREL)(C9290 PER1MG) As Ordered ONE; -EPINEPHrine INJ 1 MG/ML 1ML VIAL As Ordered ONE; -LIDOCAINE 1% MDV 20ML VIAL SQ PRN; -LR 1,000 ML IV ONE; +MAPA500C PO; +PERC5TAB12 PO; -TRANEXAMIC ACID 100 MG/ML 10ML VIAL As Ordered ONE; -ceFAZolin 1GM INJ (J0690 PER 500MG) As Ordered ONE; -ceFAZolin SOD 2 GM in IV 1 EA IV ONE
[2019-05-10 16:44] LABS: HEMATOCRIT 36.3 % (36.0-47.0); HEMOGLOBIN 10.8 g/dl (12.0-15.5); MEAN CORPUSCULAR HEMOGLOBIN 25.5 pg (27.0-33.0); MEAN CORPUSCULAR HGB CONC 29.8 g/dl (32.0-36.5); MEAN CORPUSCULAR VOLUME 85.6 fl (80.0-96.0); PLATELET COUNT, AUTOMATED 407 10^3/uL (150-450); RED BLOOD COUNT 4.24 10^6/uL (4.00-5.40)
[2019-05-10 16:47] LABS: WHITE BLOOD COUNT 13.8 10^3/uL (4.0-10.0)
[2019-05-10] MEDS ORDERED: NS 1,000 ML IV SCH (17:00)
--- NOTE | 2019-05-10 17:05 | ECGEPIP ---
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
[2019-05-10 17:08] LABS: EOSINOPHILS 4 % (0-3); LYMPHOCYTES 44 % (16-44); MONOCYTES 4 % (0-5); NEUTROPHILS 48 % (28-66); PLATELET ESTIMATE NORMAL (NORMAL)
[2019-05-10 17:14] LABS: ALBUMIN 3.4 GM/DL (3.2-5.2); ALT/SGPT 37 U/L (12-78); BILIRUBIN,DIRECT 0.1 MG/DL (0.0-0.2); BILIRUBIN,TOTAL 0.5 MG/DL (0.2-1.0); BLOOD UREA NITROGEN 28 MG/DL (7-18); CALCIUM LEVEL 8.7 MG/DL (8.8-10.2); CARBON DIOXIDE LEVEL 26 MEQ/L (21-32); CHLORIDE LEVEL 106 MEQ/L (98-107); CK-MB VALUE MASS 1.8 NG/ML (<3.6); CPK CREATINE PHOSPHOKINASE 61 U/L (26-192); CREATININE FOR GFR 1.49 MG/DL (0.55-1.30); GLOMERULAR FILTRATION RATE 36.7 (>39); GLUCOSE, FASTING 123 MG/DL (70-100); MB/CK RELATIVE INDEX 2.95 (< OR =4); POTASSIUM SERUM 4.8 MEQ/L (3.5-5.1); SODIUM LEVEL 141 MEQ/L (136-145); TOTAL PROTEIN 5.9 GM/DL (6.4-8.2); TROPONIN I < 0.02 NG/ML (< 0.10)
[2019-05-10 17:27] LABS: ABG BASE EXCESS 0.2 (-2.0-2.0); ABG HCO3 21.8 MEQ/L (22.0-26.0); ABG O2 SATURATION 97.9 % (95.0-99.0); ABG PARTIAL PRESSURE CO2 26.2 mmHg (35.0-45.0); ABG PARTIAL PRESSURE O2 101.7 mmHg (75.0-100.0); ABG STANDARD HCO3 24.7 MEQ/L (22.0-26.0); ABG TOTAL CO2 22.6 MEQ/L (23.0-31.0); ABG pH (ARTERIAL) 7.538 UNITS (7.350-7.450)
[2019-05-10 17:30] VITALS: BP 133/61
--- NOTE | 2019-05-11 09:05 | REP ---
Chest x-ray: Two views. History: Phalanges. Comparison study: April 02, 2019. Findings: Monitoring electrodes are seen. The lungs are well inflated and clear. Heart is enlarged unchanged. Pulmonary vasculature is not increased. No evidence of pleural effusion. There are mild degenerative changes in the thoracic spine. Pulmonary vasculature is not increased. Impression: Cardiomegaly. Otherwise no acute disease. Electronically Signed by Carroll Huizar MD 05/11/2019 08:57 A
== END 2019-05-10 18:34 | disposition home or self-care (01) ==
LOC: M ED 16:11
DX: R53.81 Other malaise (principal); R53.83 Other fatigue; I10 Essential (primary) hypertension; E11.9 Type 2 diabetes mellitus without complications; Z88.1 Allergy status to other antibiotic agents; Z88.8 Allergy status to other drugs, medicaments and biological substances; Z91.040 Latex allergy status

== ENCOUNTER → 2019-10-16 | Outpatient (CLI) | payer MEDICARE ==
[~2019-10-16] MED LIST changes: +GENT40VI NEB; -GENT80VL NEB; +METO75TA PO; -PROC5TA PO; +PROC5TAB57 PO; +TOUJ300I2
[2019-10-16 13:41] LABS: CALCIUM LEVEL 8.8 MG/DL (8.8-10.2); CREATININE FOR GFR 1.19 MG/DL (0.55-1.30); GLOMERULAR FILTRATION RATE 47.5 (>39); THYROID STIMULATING HORMONE 0.126 uIU/ML (0.358-3.740)
== END ==
LOC: M WUC 10:26
PROVIDERS: ATTEND Family Medicine
DX: N18.3 Chronic kidney disease, stage 3 (moderate) (principal); E03.9 Hypothyroidism, unspecified

== ENCOUNTER → 2019-10-16 | Outpatient (CLI) | payer MEDICARE ==
[2019-10-16 13:39] LABS: CHOLESTEROL RISK RATIO 4.774 (<5)
== END ==
LOC: M WUC 10:30
PROVIDERS: ATTEND Physician Assistant
DX: E78.2 Mixed hyperlipidemia (principal)

== ENCOUNTER → 2019-10-30 | Outpatient (REF) | payer MEDICARE | LOC: M LAB REF 14:56 | PROVIDERS: ATTEND Physician Assistant | DX: D23.30 Other benign neoplasm of skin of unspecified part of face (principal) ==

== ENCOUNTER → 2019-11-11 | Outpatient (REF) | payer MEDICARE ==
[2019-11-11 16:03] LABS: CREATININE, URINE 18.5 MG/DL; MALB URINE SIEMENS 5.5 MG/L; MAU/CREAT RATIO 29.7 MCG/MG (0.0-30.0)
== END ==
LOC: M LAB REF 15:05
PROVIDERS: ATTEND Nurse Practitioner Family
DX: E11.22 Type 2 diabetes mellitus with diabetic chronic kidney disease (principal); N18.9 Chronic kidney disease, unspecified

== ENCOUNTER 2020-01-19 18:26 | Emergency (ER) | payer MEDICARE ==
[~2020-01-19] VITALS: Ht 154.9 cm; Wt 78.7 kg
[~2020-01-19 18:26] MED LIST changes: -METO75TA PO; -TOUJ300I2
[2020-01-19] MEDS ORDERED: TOUJ300I2 (18:37)
--- NOTE | 2020-01-19 19:16 | REPVR ---
PROCEDURE INFORMATION: Exam: XR Chest, 1 View Exam date and time: 01/19/2020 6:35 PM Age: 74 years old Clinical indication: Chest pain TECHNIQUE: Imaging protocol: XR of the chest Views: 1 view. COMPARISON: CR CHEST 2 VIEWS 04/21/2019 3:04 PM FINDINGS: Lungs: Unremarkable. No consolidation. Pleural space: Unremarkable. No pleural effusion. No pneumothorax. Heart/Mediastinum: Cardiomegaly. Bones/joints: Unremarkable. IMPRESSION: 1. Cardiomegaly. 2. No acute findings. Electronically signed by: Brigido Grove On 01/19/2020 19:15:41 PM
[2020-01-19 19:40] LABS: HEMATOCRIT 39.8 % (36.0-47.0); MEAN CORPUSCULAR HEMOGLOBIN 22.4 pg (27.0-33.0); MEAN CORPUSCULAR HGB CONC 30.2 g/dl (32.0-36.5); MEAN CORPUSCULAR VOLUME 74.4 fl (80.0-96.0); PLATELET COUNT, AUTOMATED 314 10^3/uL (150-450); RED BLOOD COUNT 5.35 10^6/uL (4.00-5.40)
[2020-01-19 19:41] LABS: WHITE BLOOD COUNT 16.5 10^3/uL (4.0-10.0)
[2020-01-19 19:55] LABS: INR 1.15; PARTIAL THROMBOPLASTIN TIME 25.7 SECONDS (24.2-38.5); PROTHROMBIN TIME 14.9 SECONDS (12.5-14.3)
[2020-01-19 19:58] LABS: ANISOCYTOSIS 1+; ATYPICAL LYMPH 4 % (0-5); EOSINOPHILS 4 % (0-3); LYMPHOCYTES 58 % (16-44); MONOCYTES 9 % (0-5); NEUTROPHILS 25 % (28-66)
[2020-01-19 19:59] LABS: HYPOCHROMASIA 1+; PLATELET ESTIMATE NORMAL (NORMAL)
[2020-01-19 20:23] LABS: ALBUMIN 3.4 GM/DL (3.2-5.2); BILIRUBIN,DIRECT 0.1 MG/DL (0.0-0.2); BILIRUBIN,TOTAL 0.5 MG/DL (0.2-1.0); CALCIUM LEVEL 9.2 MG/DL (8.8-10.2); CK-MB VALUE MASS 2.8 NG/ML (<3.6); CREATININE FOR GFR 1.38 MG/DL (0.55-1.30); DIGOXIN LEVEL 1.4 NG/ML (0.5-2.0); FREE T4 1.67 NG/DL (0.76-1.46); MB/CK RELATIVE INDEX 2.06 (< OR =4); POTASSIUM SERUM 4.6 MEQ/L (3.5-5.1); THYROID STIMULATING HORMONE 0.147 uIU/ML (0.358-3.740); TROPONIN I 0.02 NG/ML (< 0.10)
[2020-01-19] MEDS: METOPROLOL 5 MG/5 ML VIAL IV SCH ×3 (20:27→20:37)
[2020-01-19] MEDS ORDERED: FLECAINIDE 50MG TABLET PO ONE (21:00)
[2020-01-19] MEDS ORDERED: DEXTROSE 50% 50 ML SYRINGE IV STA (21:34)
[2020-01-19] MEDS ORDERED: METOPROLOL TARTRATE 100 MG TAB PO ONE (23:00)
[2020-01-19 23:16] VITALS: BP 121/56
[2020-01-19] MEDS ORDERED: METOPROLOL TART 50 MG TAB As Ordered ONE (23:27)
[2020-01-19 23:38] VITALS: BP 129/79
[2020-01-20] MEDS ORDERED: LEVO100T5 PO (00:16)
--- NOTE | 2020-01-20 09:21 | ECGEPIP ---
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
[2020-01-30] MEDS ORDERED: METO75TA PO (15:17)
== END 2020-01-20 00:40 | disposition home or self-care (01) ==
LOC: M ED 18:26
DX: I48.91 Unspecified atrial fibrillation (principal); E05.80 Other thyrotoxicosis without thyrotoxic crisis or storm; I51.7 Cardiomegaly; E11.9 Type 2 diabetes mellitus without complications; G47.30 Sleep apnea, unspecified; Z79.01 Long term (current) use of anticoagulants; Z79.4 Long term (current) use of insulin; Z79.899 Other long term (current) drug therapy; Z88.1 Allergy status to other antibiotic agents; Z88.8 Allergy status to other drugs, medicaments and biological substances; Z91.040 Latex allergy status

== ENCOUNTER → 2020-02-18 | Outpatient (CLI) | payer MEDICARE ==
[~2020-02-18] MED LIST changes: +METO75TA PO; +TOUJ300I2
--- NOTE | 2020-02-18 16:16 | REP ---
INDICATION: ULICES CAROTID BRUIT COMPARISON: None. TECHNIQUE: Real-time ultrasound evaluation and duplex Doppler interrogation of the extracranial carotid vasculature is performed. FINDINGS: There is mild plaquing and narrowing in both carotid bulbs extending into the internal and external carotid arteries. Luminal narrowing is less than 50%. There is no evidence of hemodynamically significant stenosis of either internal carotid artery. Normal flow velocities are seen. The vertebral arteries demonstrate normal direction of flow. RIGHT LEFT Peak systolic velocity ICA 108 cm/s 87 cm/s End diastolic velocity ICA 22.5 cm/s 19.3 cm/s Peak systolic velocity CCA 94.4 cm/s 84.0cm/s Peak systolic velocity ECA 92.6 cm/s 172 cm/s ICA/CCA ratio 1.14 1.04 IMPRESSION: Bilateral luminal narrowing of the internal carotid arteries less than 50%. No evidence of hemodynamically significant stenosis. <Electronically signed by Marty Chau > 02/18/20 [id number]
== END ==
LOC: M RAD 14:39
PROVIDERS: ATTEND Internal Medicine Cardiovascular Disease
DX: R09.89 Other specified symptoms and signs involving the circulatory and respiratory systems (principal)

== ENCOUNTER → 2020-03-02 | Outpatient (REF) | payer MEDICARE ==
[2020-03-02 16:38] LABS: FREE T4 0.87 NG/DL (0.76-1.46); THYROID STIMULATING HORMONE 5.89 uIU/ML (0.358-3.740)
== END ==
LOC: M PLALAB 11:50
PROVIDERS: ATTEND Family Medicine
DX: E03.9 Hypothyroidism, unspecified (principal)

== ENCOUNTER → 2020-04-20 | Outpatient (CLI) | payer MEDICARE ==
[2020-04-20 13:45] LABS: BASO # 0.1 10^3/uL (0.0-0.2); BASO % 0.6 % (0.0-1.0); EOS # 0.3 10^3/uL (0.0-0.5); HEMATOCRIT 41.8 % (36.0-47.0); HEMOGLOBIN 13.2 g/dl (12.0-15.5); LYMPH # 3.4 10^3/uL (1.5-5.0); LYMPH % 35.6 % (24.0-44.0); MEAN CORPUSCULAR HEMOGLOBIN 26.2 pg (27.0-33.0); MEAN CORPUSCULAR HGB CONC 31.6 g/dl (32.0-36.5); MEAN CORPUSCULAR VOLUME 82.9 fl (80.0-96.0); MONO # 0.7 10^3/uL (0.0-0.8); MONO % 7.3 % (0.0-5.0); NEUTROPHILS # 5.1 10^3/uL (1.5-8.5); NEUTROPHILS % 52.9 % (36.0-66.0); PLATELET COUNT, AUTOMATED 240 10^3/uL (150-450); RED BLOOD COUNT 5.04 10^6/uL (4.00-5.40); WHITE BLOOD COUNT 9.7 10^3/uL (4.0-10.0)
[2020-04-20 13:55] LABS: CALCIUM LEVEL 8.8 MG/DL (8.8-10.2); CHOLESTEROL RISK RATIO 4.837 (<5); CREATININE FOR GFR 1.21 MG/DL (0.55-1.30); GLOMERULAR FILTRATION RATE 46.6 (>39); POTASSIUM SERUM 4.6 MEQ/L (3.5-5.1)
[2020-04-20 14:03] LABS: FREE T4 0.92 NG/DL (0.76-1.46); THYROID STIMULATING HORMONE 6.5 uIU/ML (0.358-3.740)
[2020-04-20 14:06] LABS: TOTAL PROTEIN,RANDOM URINE 36.4 MG/DL (0.0-12.0)
[2020-04-20 14:08] LABS: ALBUMIN 3.7 GM/DL (3.2-5.2); ALT/SGPT 50 U/L (12-78); BILIRUBIN,TOTAL 0.5 MG/DL (0.2-1.0); BLOOD UREA NITROGEN 22 MG/DL (7-18); CALCIUM LEVEL 8.9 MG/DL (8.8-10.2); CARBON DIOXIDE LEVEL 28 MEQ/L (21-32); CHLORIDE LEVEL 107 MEQ/L (98-107); COMPLEMENT C3 145 MG/DL (90-180); COMPLEMENT C4 33 MG/DL (10-40); CREATININE FOR GFR 1.16 MG/DL (0.55-1.30); GLOMERULAR FILTRATION RATE 48.9 (>39); GLUCOSE, FASTING 236 MG/DL (70-100); POTASSIUM SERUM 4.6 MEQ/L (3.5-5.1); RHEUMATOID FACTOR QUANT < 10.0 IU/ML (<15.0); SODIUM LEVEL 141 MEQ/L (136-145); TOTAL PROTEIN 5.9 GM/DL (6.4-8.2); URIC ACID 7.1 MG/DL (2.6-6.0)
[2020-04-20 14:29] LABS: ERYTHROCYTE SEDIMENTATION RATE 6 mm/hr (0-30)
[2020-04-22 12:28] LABS: ALBUMIN % 66.1 % (55.8-66.1); ALPHA-1-GLOBULIN % 4.6 % (2.9-4.9); ALPHA-1-GLOBULINS 0.27 GM/DL (0.17-0.41); ALPHA-2-GLOBULINS 0.99 GM/DL (0.42-0.99); ALPHA-2-GLOBULINS % 16.8 % (7.1-11.8); BETA-1-GLOBULINS 0.32 GM/DL (0.28-0.60); BETA-1-GLOBULINS % 5.4 % (4.7-7.2); GAMMA GLOBULIN % 2.1 % (11.1-18.8); GAMMA GLOBULINS 0.12 GM/DL (0.65-1.58)
[2020-04-26 13:06] LABS: ALPHA 1 ANTITRYPSIN 126 mg/dL (101-187); ANA (HEP2) Negative (.); ANCA-ATYPICAL <1:20 titer (Neg:<1:20); ANTI DS-DNA AB Negative (Negative); BETA-2 GLYCOPROTEIN I ABY IGA <9 (0-25); BETA-2 GLYCOPROTEIN I ABY IGG <9 (0-20); BETA-2 GLYCOPROTEIN I ABY IGM <9 (0-32); CARDIOLIPIN IGA ANTIBODY <9 APL U/mL (0-11); CARDIOLIPIN IGG ANTIBODY <9 GPL U/mL (0-14); CARDIOLIPIN IGM ANTIBODY <9 MPL U/mL (0-12); CYCLIC CITRULLINATED PEPTIDE 3 units (0-19); CYTOPLASMIC NEUTROP AB ANCA-C <1:20 titer (Neg:<1:20); PERINUCLEAR AB ANCA-P <1:20 titer (Neg:<1:20); RNP ANTIBODY < 0.2 AI (0.0-0.9); SMITHS ANTIBODY < 0.2 AI (0.0-0.9); SSA SJOGRENS A <0.2 AI (0.0-0.9); SSB SJOGRENS B <0.2 AI (0.0-0.9)
== END ==
LOC: M PLALAB 09:26
PROVIDERS: ATTEND Physician Assistant
DX: E78.2 Mixed hyperlipidemia (principal)

== ENCOUNTER 2020-05-03 12:35 | Emergency (ER) | payer MEDICARE ==
[~2020-05-03] VITALS: Ht 154.9 cm; Wt 81.3 kg
[2020-05-03 13:44] LABS: BASO # 0.1 10^3/uL (0.0-0.2); BASO % 0.7 % (0.0-1.0); EOS # 0.3 10^3/uL (0.0-0.5); EOS % 2.4 % (0.0-3.0); HEMATOCRIT 43.5 % (36.0-47.0); HEMOGLOBIN 13.7 g/dl (12.0-15.5); LYMPH % 36.5 % (24.0-44.0); MEAN CORPUSCULAR HEMOGLOBIN 27.4 pg (27.0-33.0); MEAN CORPUSCULAR HGB CONC 31.5 g/dl (32.0-36.5); MONO # 0.8 10^3/uL (0.0-0.8); MONO % 6.8 % (0.0-5.0); NEUTROPHILS # 5.8 10^3/uL (1.5-8.5); NEUTROPHILS % 53.1 % (36.0-66.0); PLATELET COUNT, AUTOMATED 227 10^3/uL (150-450)
[2020-05-03] MEDS ORDERED: ONDANSETRON 4MG/2ML VIAL IV ONE (14:00)
[2020-05-03 14:24] LABS: ERYTHROCYTE SEDIMENTATION RATE 6 mm/hr (0-30)
--- NOTE | 2020-05-03 14:25 | REP ---
INDICATION: DYSPNEA/COUGH. COMPARISON: 01/19/2020. TECHNIQUE: Single frontal portable view of the chest was performed. FINDINGS: Mild to moderate cardiomegaly is unchanged. No acute infiltrate or pulmonary edema is visualized. There is mild calcification of the thoracic aorta. The mediastinal silhouette is unchanged. IMPRESSION: Cardiomegaly without evidence of acute infiltrate or pulmonary edema. <Electronically signed by Marty Chau > 05/03/20 [id number]
[2020-05-03] MEDS ORDERED: METOCLOPRAMIDE INJ 10MG/2ML VIAL (J2765 PER 1) IV ONE (16:00)
[2020-05-03 16:16] LABS: ALBUMIN 3.6 GM/DL (3.2-5.2); ALT/SGPT 44 U/L (12-78); BILIRUBIN,DIRECT 0.1 MG/DL (0.0-0.2); BILIRUBIN,TOTAL 0.6 MG/DL (0.2-1.0); BLOOD UREA NITROGEN 29 MG/DL (7-18); CALCIUM LEVEL 8.9 MG/DL (8.8-10.2); CARBON DIOXIDE LEVEL 31 MEQ/L (21-32); CHLORIDE LEVEL 105 MEQ/L (98-107); CPK CREATINE PHOSPHOKINASE 90 U/L (26-192); CREATININE FOR GFR 1.25 MG/DL (0.55-1.30); GLOMERULAR FILTRATION RATE 44.8 (>39); GLUCOSE, FASTING 165 MG/DL (70-100); MB/CK RELATIVE INDEX 2.22 (< OR =4); NT-PRO BNP 782 PG/ML (<125); POTASSIUM SERUM 4.6 MEQ/L (3.5-5.1); SODIUM LEVEL 139 MEQ/L (136-145); THYROXINE (T4) 8.3 UG/DL (4.5-12.0); TROPONIN I < 0.02 NG/ML (< 0.10)
[2020-05-03] MEDS ORDERED: FUROSEMIDE 40 MG TAB PO STA (16:32)
[2020-05-03] MEDS ORDERED: METOPROLOL TARTRATE 100 MG TAB PO STA (16:32)
[2020-05-03] MEDS ORDERED: DIGOXIN 0.125 MG TAB PO STA (16:32)
[2020-05-03] MEDS ORDERED: SPIRONOLACTONE 12.5MG PER 1/2 TABLET PO STA (16:32)
[2020-05-03] MEDS ORDERED: ONDA4TAB6 PO (16:35)
[2020-05-03 17:13] VITALS: BP 166/76
--- NOTE | 2020-05-04 08:52 | ECGEPIP ---
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
== END 2020-05-03 17:21 | disposition home or self-care (01) ==
LOC: M ED 12:35
DX: B34.8 Other viral infections of unspecified site (principal); R94.31 Abnormal electrocardiogram [ECG] [EKG]; R11.2 Nausea with vomiting, unspecified; R06.02 Shortness of breath; I11.0 Hypertensive heart disease with heart failure; I51.7 Cardiomegaly; E11.9 Type 2 diabetes mellitus without complications; K21.9 Gastro-esophageal reflux disease without esophagitis; J84.10 Pulmonary fibrosis, unspecified; Z88.8 Allergy status to other drugs, medicaments and biological substances; Z91.040 Latex allergy status; Z79.899 Other long term (current) drug therapy
CPT/HCPCS: 71045; 80048; 80076; 82550; 82553; 83605; 83880; 84436; 84443; 84484; 85025; 85652; 87040; 87486; 87581; 87633; 87798; 93005; 93041; 94760; 96374; 96375; 99284; J2405; J2765

== ENCOUNTER → 2020-05-24 | Outpatient (REF) | payer MEDICARE ==
[~2020-05-24] MED LIST changes: +ONDA4TAB6 PO
[2020-05-24 17:26] LABS: BASO # 0.1 10^3/uL (0.0-0.2); BASO % 0.6 % (0.0-1.0); EOS # 0.2 10^3/uL (0.0-0.5); HEMATOCRIT 41.6 % (36.0-47.0); HEMOGLOBIN 13.5 g/dl (12.0-15.5); LYMPH # 3.8 10^3/uL (1.5-5.0); LYMPH % 34.8 % (24.0-44.0); MEAN CORPUSCULAR HEMOGLOBIN 28.4 pg (27.0-33.0); MEAN CORPUSCULAR HGB CONC 32.5 g/dl (32.0-36.5); MEAN CORPUSCULAR VOLUME 87.6 fl (80.0-96.0); MONO # 0.7 10^3/uL (0.0-0.8); MONO % 6.6 % (0.0-5.0); NEUTROPHILS % 55.5 % (36.0-66.0); PLATELET COUNT, AUTOMATED 252 10^3/uL (150-450); RED BLOOD COUNT 4.75 10^6/uL (4.00-5.40); WHITE BLOOD COUNT 10.8 10^3/uL (4.0-10.0)
[2020-05-24 17:43] LABS: ALBUMIN 3.7 GM/DL (3.2-5.2); BILIRUBIN,TOTAL 0.7 MG/DL (0.2-1.0); C REACTIVE PROTEIN QUANTITATIV 0.3 MG/DL (0.00-0.30); CALCIUM LEVEL 9.2 MG/DL (8.8-10.2); CREATININE FOR GFR 1.38 MG/DL (0.55-1.30); POTASSIUM SERUM 5.1 MEQ/L (3.5-5.1); TOTAL PROTEIN 5.8 GM/DL (6.4-8.2)
[2020-05-24 18:49] LABS: ERYTHROCYTE SEDIMENTATION RATE 7 mm/hr (0-30)
== END ==
LOC: M PLALAB 14:47
PROVIDERS: ATTEND Internal Medicine
DX: H16.001 Unspecified corneal ulcer, right eye (principal)
CPT/HCPCS: 36415; 80053; 85025; 85652; 86140; G0463

== ENCOUNTER → 2020-06-15 | Outpatient (CLI) | payer MEDICARE | LOC: M PLALAB 08:22 | PROVIDERS: ATTEND Nurse Practitioner Family | DX: E11.22 Type 2 diabetes mellitus with diabetic chronic kidney disease (principal) ==

== ENCOUNTER → 2020-06-15 | Outpatient (REF) | payer MEDICARE ==
[2020-06-15 12:05] LABS: CALCIUM LEVEL 8.7 MG/DL (8.8-10.2); CREATININE FOR GFR 1.3 MG/DL (0.55-1.30); GLOMERULAR FILTRATION RATE 42.9 (>39); POTASSIUM SERUM 4.6 MEQ/L (3.5-5.1); THYROID STIMULATING HORMONE 12.2 uIU/ML (0.358-3.740)
[2020-06-15 12:08] LABS: MAU/CREAT RATIO 39.8 MCG/MG (0.0-30.0)
== END ==
LOC: M PLALAB 08:22
PROVIDERS: ATTEND Family Medicine
DX: N18.30 Chronic kidney disease, stage 3 unspecified (principal); E03.9 Hypothyroidism, unspecified; R80.9 Proteinuria, unspecified; E11.22 Type 2 diabetes mellitus with diabetic chronic kidney disease

== ENCOUNTER → 2020-06-28 | Outpatient (REF) | payer MEDICARE ==
[~2020-06-28] MED LIST changes: +FOLI1TAB11 PO; +METH2.5T48 PO; +REST0.05 OD; +SYNT150T PO; +TRUL10IN SC
[2020-06-28 18:02] LABS: BASO # 0.1 10^3/uL (0.0-0.2); BASO % 0.7 % (0.0-1.0); EOS # 0.3 10^3/uL (0.0-0.5); EOS % 2.9 % (0.0-3.0); HEMATOCRIT 40.3 % (36.0-47.0); HEMOGLOBIN 12.8 g/dl (12.0-15.5); LYMPH # 2.6 10^3/uL (1.5-5.0); LYMPH % 25.8 % (24.0-44.0); MEAN CORPUSCULAR HEMOGLOBIN 29.2 pg (27.0-33.0); MEAN CORPUSCULAR HGB CONC 31.8 g/dl (32.0-36.5); MONO # 0.8 10^3/uL (0.0-0.8); MONO % 8.2 % (2.0-8.0); NEUTROPHILS # 6.1 10^3/uL (1.5-8.5); NEUTROPHILS % 61.8 % (36.0-66.0); PLATELET COUNT, AUTOMATED 257 10^3/uL (150-450); RED BLOOD COUNT 4.38 10^6/uL (4.00-5.40); WHITE BLOOD COUNT 9.9 10^3/uL (4.0-10.0)
[2020-06-28 18:22] LABS: ALBUMIN 3.6 GM/DL (3.2-5.2); BILIRUBIN,TOTAL 0.7 MG/DL (0.2-1.0); CALCIUM LEVEL 9.1 MG/DL (8.8-10.2); CREATININE FOR GFR 1.68 MG/DL (0.55-1.30); GLOMERULAR FILTRATION RATE 31.9 (>39); POTASSIUM SERUM 5.7 MEQ/L (3.5-5.1); TOTAL PROTEIN 5.9 GM/DL (6.4-8.2); URIC ACID 8.4 MG/DL (2.6-6.0)
[2020-06-28 18:52] LABS: ERYTHROCYTE SEDIMENTATION RATE 12 mm/hr (0-30)
== END ==
LOC: M SFHCRHEU 14:56
PROVIDERS: ATTEND Internal Medicine
DX: H16.001 Unspecified corneal ulcer, right eye (principal); E79.0 Hyperuricemia without signs of inflammatory arthritis and tophaceous disease
CPT/HCPCS: 80053; 84550; 85025; 85652; 86140; G0463

== ENCOUNTER → 2020-07-07 | Outpatient (REF) | payer MEDICARE ==
[~2020-07-07] MED LIST changes: -FOLI1TAB11 PO; -METH2.5T48 PO; -REST0.05 OD; -SYNT150T PO; -TRUL10IN SC
[2020-07-07 15:58] LABS: ALBUMIN 3.4 GM/DL (3.2-5.2); BILIRUBIN,TOTAL 0.6 MG/DL (0.2-1.0); CALCIUM LEVEL 9.1 MG/DL (8.8-10.2); CREATININE FOR GFR 1.1 MG/DL (0.55-1.30); GLOMERULAR FILTRATION RATE 51.8 (>39); POTASSIUM SERUM 4.9 MEQ/L (3.5-5.1); TOTAL PROTEIN 5.7 GM/DL (6.4-8.2)
== END ==
LOC: M PLALAB 13:23
PROVIDERS: ATTEND Internal Medicine
DX: E87.5 Hyperkalemia (principal)

== ENCOUNTER → 2020-08-03 | Outpatient (REF) | payer MEDICARE | LOC: M PLALAB 15:07 | PROVIDERS: ATTEND Family Medicine | DX: E03.9 Hypothyroidism, unspecified (principal) ==

== ENCOUNTER → 2020-08-20 | Outpatient (CLI) | payer MEDICARE ==
[~2020-08-20] MED LIST changes: +FOLI1TAB11 PO; +METH2.5T48 PO; +REST0.05 OD; +SYNT150T PO; +TRUL10IN SC
== END ==
LOC: M PLALAB 10:58
PROVIDERS: ATTEND Physician Assistant
DX: Z01.818 Encounter for other preprocedural examination (principal); Z79.899 Other long term (current) drug therapy

== ENCOUNTER → 2020-08-20 | Outpatient (CLI) | payer MEDICARE | LOC: M LABSMTC 10:37 | PROVIDERS: ATTEND Anesthesiology | DX: Z20.828 Contact with and (suspected) exposure to other viral communicable diseases (principal); Z11.59 Encounter for screening for other viral diseases ==

== ENCOUNTER 2020-08-25 10:04 | Day surgery (SDC) | payer MEDICARE ==
[~2020-08-25] VITALS: Ht 154.9 cm; Wt 81.2 kg
[~2020-08-25 10:04] MED LIST changes: +LIDOCAINE 1% MDV 20ML VIAL SQ PRN; +LIDOCAINE 2% 100MG/5ML SDV (FOR ANES.) As Ordered ONE; +LR 1,000 ML IV ONE; +MIDAZOLAM INJ 2MG/2ML VIAL (J2250 PER 1MG) As Ordered ONE; +ROCURONIUM BROMIDE 50 MG/5 ML VIAL As Ordered ONE; +fentaNYL 250 MCG/5 ML INJECTION (J3010) As Ordered ONE; +propofoL 200 MG/20 ML VIAL As Ordered ONE
[2020-08-25] MEDS ORDERED: METHYLENE BLUE 0.5% (5MG/ML) 10 ML AMP (PROVAYBLUE) As Ordered ONE (11:17)
[2020-08-25] MEDS ORDERED: LIDOCAINE W/EPINEPHRINE 1% 20ML VIAL As Ordered ONE (11:17)
[2020-08-25] MEDS ORDERED: EPINEPHrine 1MG/ML INJ 30ML MD-VIAL As Ordered ONE (11:17)
[2020-08-25] MEDS ORDERED: ONDANSETRON 4MG/2ML VIAL As Ordered ONE (12:02)
[2020-08-25] MEDS ORDERED: ACETAMINOPHEN 1000MG 100ML IV BTL (OFIRMEV) (J0131 PER 10MG) As Ordered ONE (12:02)
[2020-08-25] MEDS ORDERED: SUGAMMADEX SODIUM 500 MG/5 ML VIAL (BRIDION) As Ordered ONE (12:02)
[2020-08-25] MEDS ORDERED: oxyCODONE 5MG TAB PO PRN (13:15)
[2020-08-25] MEDS ORDERED: LR 1,000 ML IV SCH ×2 (13:15→13:20)
[2020-08-25] MEDS ORDERED: ONDANSETRON 4MG/2ML VIAL IV PRN (13:15)
[2020-08-25] MEDS ORDERED: fentaNYL 100 MCG/2 ML INJECTION (J3010) IV PRN (13:15)
[2020-08-25] MEDS ORDERED: ACETAMINOPH W/CODEINE #3 TAB UD PO PRN (13:20)
--- NOTE | 2020-08-25 13:47 | RO ---
OPERATIVE NOTE DATE OF OPERATION: 08/25/2020 PREOPERATIVE DIAGNOSIS: Right nasolacrimal duct obstruction. POSTOPERATIVE DIAGNOSIS: Right nasolacrimal duct obstruction. OPERATIVE PROCEDURE: Right endoscopic DCR. SURGEON: Jimmie Webb MD DYE EXPERT: ANESTHESIA: FINDINGS: There was a lot of scarring especially in the superior canaliculus. DESCRIPTION OF PROCEDURE: Under general anesthesia with the patient intubated, the patient draped in the usual manner. I used pledgets of adrenalin 1:1000, infiltrated with lidocaine 1/2%. I started first by removing mucosa over the area inside the nose medial, anterior and superior to the insertion of the middle turbinate anteriorly. Once this was done, I used a drill to drill down through the bone in this area. Then I used the Kerrison rongeur to remove more bone to expose the sac. Once the sac was exposed, I made an incision and then I removed some of the lateral aspect of the mucoperichondrium. I then went to the external and identified the inferior canaliculus. I dilated that up and then inserted the light pipe. I identified where the sac was. I made a further incision and removed some soft tissue in this area. I then opened up into the sac from the canaliculus. I inserted the stent lower in the inferior canaliculus through into the nose. Then I identified the superior canaliculus. It was very stenotic. I dilated it up and with the probe, I identified the sac again. I used a light pipe as well. Once this was done with some patience and probing, I was able to identify the opening into the sac. I then inserted the stent through the superior canaliculus. It was brought out through the nose. I adjusted its appropriate tension and then I put four hunter inside the nose. I cut the inferior part of the stent and removed it. I irrigated the eye itself with balanced salt solution and did so during the whole procedure. Once this was done then, I suctioned out the nose. I put some Gelfoam over the site inside the nose. There was approximately 10 mL estimated blood loss total. The patient tolerated the procedure well, was extubated and transferred to the recovery room in excellent condition.
[2020-08-25 14:45] VITALS: BP 186/78
== END 2020-08-25 14:50 | disposition home or self-care (01) ==
LOC: M SDC 10:04
PROVIDERS: ATTEND Otolaryngology
DX: H04.221 Epiphora due to insufficient drainage, right side (principal); H04.551 Acquired stenosis of right nasolacrimal duct; E11.43 Type 2 diabetes mellitus with diabetic autonomic (poly)neuropathy; K21.9 Gastro-esophageal reflux disease without esophagitis; E03.9 Hypothyroidism, unspecified; I13.10 Hypertensive heart and chronic kidney disease without heart failure, with stage 1 through stage 4 chronic kidney disease, or unspecified chronic kidney disease; I48.91 Unspecified atrial fibrillation; J84.10 Pulmonary fibrosis, unspecified; K31.84 Gastroparesis; G47.33 Obstructive sleep apnea (adult) (pediatric); Z91.040 Latex allergy status; Z88.8 Allergy status to other drugs, medicaments and biological substances; Z88.1 Allergy status to other antibiotic agents; I50.32 Chronic diastolic (congestive) heart failure; Z79.84 Long term (current) use of oral hypoglycemic drugs; Z79.899 Other long term (current) drug therapy; Z79.4 Long term (current) use of insulin; Z79.01 Long term (current) use of anticoagulants; N18.9 Chronic kidney disease, unspecified
CPT/HCPCS: 31239; 68720; C1726; J0131; J2250; J2405; J3010; Q9968

== ENCOUNTER → 2020-08-31 | Outpatient (REF) | payer MEDICARE ==
[~2020-08-31] MED LIST changes: -LIDOCAINE 1% MDV 20ML VIAL SQ PRN; -LIDOCAINE 2% 100MG/5ML SDV (FOR ANES.) As Ordered ONE; -LR 1,000 ML IV ONE; -MIDAZOLAM INJ 2MG/2ML VIAL (J2250 PER 1MG) As Ordered ONE; -ROCURONIUM BROMIDE 50 MG/5 ML VIAL As Ordered ONE; -fentaNYL 250 MCG/5 ML INJECTION (J3010) As Ordered ONE; -propofoL 200 MG/20 ML VIAL As Ordered ONE
== END ==
LOC: M LAB REF 15:22
PROVIDERS: ATTEND Otolaryngology
DX: H04.551 Acquired stenosis of right nasolacrimal duct (principal)

== ENCOUNTER 2020-09-22 11:34 | Inpatient (IN) | payer MEDICARE ==
[~2020-09-22] VITALS: Ht 154.9 cm; Wt 79.6 kg
[~2020-09-22 11:34] MED LIST changes: +FLON1SPR NARES
--- NOTE | 2020-09-22 11:58 | REP ---
INDICATION: CHEST PAIN COMPARISON: 05/03/2020 TECHNIQUE: Portable AP view of the chest FINDINGS: The mediastinum and cardiac silhouette are stable and within normal limits for portable technique. The lung medina are clear without acute consolidation, effusion, or pneumothorax. Skeletal structures are intact. IMPRESSION: No acute cardiopulmonary process appreciated. <Electronically signed by Jc Morel > 09/22/20 [id number]
[2020-09-22 12:29] LABS: BASO # 0.1 10^3/uL (0.0-0.2); BASO % 0.9 % (0.0-1.0); EOS # 0.9 10^3/uL (0.0-0.5); EOS % 5.8 % (0.0-3.0); HEMATOCRIT 42.6 % (36.0-47.0); HEMOGLOBIN 13.5 g/dl (12.0-15.5); LYMPH # 5.4 10^3/uL (1.5-5.0); LYMPH % 36.1 % (24.0-44.0); MEAN CORPUSCULAR HEMOGLOBIN 29.9 pg (27.0-33.0); MEAN CORPUSCULAR HGB CONC 31.7 g/dl (32.0-36.5); MEAN CORPUSCULAR VOLUME 94.2 fl (80.0-96.0); MONO # 0.9 10^3/uL (0.0-0.8); NEUTROPHILS # 7.5 10^3/uL (1.5-8.5); NEUTROPHILS % 50.5 % (36.0-66.0); PLATELET COUNT, AUTOMATED 255 10^3/uL (150-450); RED BLOOD COUNT 4.52 10^6/uL (4.00-5.40); WHITE BLOOD COUNT 14.9 10^3/uL (4.0-10.0)
[2020-09-22 13:00] LABS: ALBUMIN 3.3 GM/DL (3.2-5.2); ALT/SGPT 44 U/L (12-78); BILIRUBIN,DIRECT < 0.1 MG/DL (0.0-0.2); BILIRUBIN,TOTAL 0.4 MG/DL (0.2-1.0); BLOOD UREA NITROGEN 36 MG/DL (7-18); CALCIUM LEVEL 8.8 MG/DL (8.8-10.2); CARBON DIOXIDE LEVEL 23 MEQ/L (21-32); CHLORIDE LEVEL 113 MEQ/L (98-107); CK-MB VALUE MASS 1.7 NG/ML (<3.6); CPK CREATINE PHOSPHOKINASE 157 U/L (26-192); CREATININE FOR GFR 1.31 MG/DL (0.55-1.30); GLOMERULAR FILTRATION RATE 42.4 (>39); GLUCOSE, FASTING 64 MG/DL (70-100); LIPASE 134 U/L (73-393); MB/CK RELATIVE INDEX 1.08 (< OR =4); NT-PRO BNP 6652 PG/ML (<125); POTASSIUM SERUM 5.4 MEQ/L (3.5-5.1); SODIUM LEVEL 143 MEQ/L (136-145); TOTAL PROTEIN 5.9 GM/DL (6.4-8.2); TROPONIN I < 0.02 NG/ML (< 0.10)
[2020-09-22] MEDS ORDERED: FLECAINIDE 50MG TABLET PO STA ×2 (13:10→17:10)
[2020-09-22 19:06] LABS: CK-MB VALUE MASS 1.9 NG/ML (<3.6); CPK CREATINE PHOSPHOKINASE 89 U/L (26-192); MB/CK RELATIVE INDEX 2.13 (< OR =4); TROPONIN I < 0.02 NG/ML (< 0.10)
[2020-09-22] MEDS ORDERED: SPIR-10 PO (20:03)
[2020-09-22] MEDS ORDERED: LOSA25TA14 PO (20:03)
[2020-09-22] MEDS ORDERED: METO100T5 PO (20:03)
[2020-09-22] MEDS ORDERED: REFR0.5D8 OU (20:03)
[2020-09-22] MEDS ORDERED: GLIP10TA6 PO (20:03)
[2020-09-22] MEDS ORDERED: ATOR80TA59 PO (20:03)
[2020-09-22] MEDS ORDERED: GLUCAGON INJ 1MG VIAL SC PRN (20:05)
[2020-09-22] MEDS ORDERED: GLUCOSE 4GM CHEW TABLET PO PRN (20:05)
[2020-09-22] MEDS ORDERED: DEXTROSE 50% 50 ML SYRINGE IV PRN (20:05)
[2020-09-22] MEDS ORDERED: MAALOX 30 ML SUSP *UDC PO PRN (20:10)
[2020-09-22] MEDS ORDERED: MOM 30ML SUSPENSION UDC PO PRN (20:10)
[2020-09-22] MEDS ORDERED: ACETAMINOPHEN TAB 650MG DOSE (2X325MG) PO PRN (20:10)
--- NOTE | 2020-09-22 20:53 | ECGEPIP ---
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
[2020-09-22] MEDS ORDERED: HumaLOG INSULIN (NovoLOG) PER UNIT SC SCH (21:00)
[2020-09-22] MEDS ORDERED: ATORVASTATIN 20 MG TAB PO SCH (21:00)
[2020-09-22] MEDS: LEVEMIR (INSULIN DETEMIR) 1 UNITS/0.01ML SC SCH (21:00)
--- NOTE | 2020-09-22 21:03 | ECGEPIP ---
[facility] - ED Test Date: 2020-09-22 Pat Name: LISA DIAMOND Department: Room: - Gender: Female Catalogue Maker: : 1945 Requested By: Jo Figueroa Order Number: [id number] Reading MD: Jo Figueroa Measurements Intervals [place] Rate: 87 P: [place]: QRS: -42 QRSD: 112 T: 95 QT: 372 QTc: 447 Interpretive Statements Atrial fibrillation Left axis deviation Moderate voltage criteria for LVH, may be normal variant ( R in aVL , Jose R product ) Cannot rule out Anterior infarct , age undetermined decreased rate 09/22/20 Electronically Signed on 09-22-2020 21:02:55 EDT by Jo Figueroa
[2020-09-22 21:57] LABS: RSV AMPLIFICATION NEGATIVE (NEGATIVE)
--- NOTE | 2020-09-22 22:35 | HPEPDOC ---
[facility] Medical History & Physical Date of Admission Sep 22, 2020 Date of Service: Sep 22, 2020 History and Physical CHIEF COMPLAINT: Palpitations HISTORY OF PRESENT ILLNESS: 75-year-old female with a history of atrial fibrillation, follows with Dr. Kulkarni who presents after feeling palpitations at home found to be in A. fib with RVR. Heart rate in the ED was initially in the 140s. Dr. Kulkarni was contacted and he recommended 2 doses of flecainide. Patient's heart rate did improve down to the 90s when I saw her at bedside. She tells me the feeling of palpitations with some main reason she came to the hospital and that otherwise she feels her normal self. Palpitations started yesterday and intermittent all day into today. She denies any chest pain. Denies shortness of breath. Denies fevers or chills. She tells me she is compliant with her medications. She tells me that she is not able to take amiodarone as it resulted in Bridges fibrosis for her. In the emergency department Dr. Kulkarni recommended no further IV m edications and resumption of home medications and he will see her in the morning for possible cardioversion if her heart rate does not improve by the morning. 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 REVIEW OF SYSTEMS: 10 point review of systems complete all negative otherwise stated in HPI HOME MEDICATIONS: Please see below. PHYSICAL EXAMINATION: Constitutional: Awake and alert, in no apparent distress ENT: Sclera are clear. Mucosa is moist. Respiratory: Lungs CTA bilaterally. No respiratory distress. No use of accessory muscles. Cardiovascular: Irregularly irregular heart rate 90s on monitor Gastrointestinal: Abdomen is soft, non distended, non tender, BS present. Musculoskeletal: No lower extremity edema. Neurologic: No focal neurological deficit. Mental Status: A&O x3, normal affect Skin: Warm, dry LABORATORY DATA: See below. IMAGING: See chart MICROBIOLOGY: Please see below. ASSESSMENT/PLAN 75-year-old female with a history of atrial fibrillation, follows with Dr. Kulkarni who presents after feeling palpitations at home found to be in A. fib with RVR s/p 2 doses of flecainide. Admitted to PCU for monitoring on tele and evaluation by cardiology in the morning for possible cardioversion. # A fib with RVR: s/p 2 doses of flecainide. HR better in the ED down to 90s. Admit to PCU on tele. If not improved fully by the morning Dr Kulkarni will consider cardioversion. Continue eliquis for anticoagulation. Continue home dose of digoxin, and metoprolol for rate control. # DM: ISS. Frequent Accu-Cheks. Hypoglycemic precautions. Reduced home dose of long-acting insulin while NPO for possible cardioversion to 40 units of Levemir twice a day # Hypothyroidism: resume Synthroid. # Hypertension: Continue home meds. Monitor and titrate # Grade 2 diastolic heart failure: euvolemic. Continue home meds. # DEVEN on CPAP: may use home CPAP machine # Hyperlipidemia: continue home statin # Obesity: BMI 33. Complicates care. # GERD: continue home prilosec # DVT prophylaxis: Efraín Verdest. [facility] Hospitalist Vital Signs Vital Signs Date Time Temp Pulse Resp B/P (MAP) Pulse Ox O2 Delivery O2 Flow Rate FiO2 09/22/20 20:04 114 98 09/22/20 20:00 134/79 (97) 09/22/20 19:49 20 09/22/20 15:19 Room Air 09/22/20 11:34 97.9 Laboratory Data Labs 24H Laboratory Tests 2 09/22/20 12:18: Immature Granulocyte % (Auto) 0.7, Neutrophils (%) (Auto) 50.5, Lymphocytes (%) (Auto) 36.1, Monocytes (%) (Auto) 6.0, Eosinophils (%) (Auto) 5.8H, Basophils (%) (Auto) 0.9, Neutrophils # (Auto) 7.5, Lymphocytes # (Auto) 5.4H, Monocytes # (Auto) 0.9H, Eosinophils # (Auto) 0.9H, Basophils # (Auto) 0.1, Nucleated Red Blood Cells % (auto) 0.2H, Anion Gap 7L, Glomerular Filtration Rate 42.4, Calcium Level 8.8, Total Bilirubin 0.4, Direct Bilirubin < 0.1, Aspartate Amino Transf (AST/SGOT) 49H, Alanine Aminotransferase (ALT/SGPT) 44, Alkaline Phosphatase 88, Total Creatine Kinase 157, Creatine Kinase MB 1.7, Creatine Kinase MB Relative Index 1.08, Troponin I < 0.02, UJ-Gdz-I-Type Natriuretic Peptide 6652H, Total Protein 5.9L, Albumin 3.3, Albumin/Globulin Ratio 1.3, Lipase 134, Thyroid Stimulating Hormone (TSH) 2.720, Digoxin Level 1.1 09/22/20 17:48: Total Creatine Kinase 89, Creatine Kinase MB 1.9, Creatine Kinase MB Relative Index 2.13, Troponin I < 0.02 09/22/20 21:14: Coronavirus (COVID-19)(PCR) NEGATIVE, Influenza Type A (RT-PCR) NEGATIVE, Influenza Type B (RT-PCR) NEGATIVE, Respiratory Syncytial Virus (PCR) NEGATIVE CBC/BMP Laboratory Tests 09/22/20 12:18 Home Medications Scheduled Apixaban (Eliquis) 5 Mg Tab, 5 MG PO BID Atorvastatin Calcium (Atorvastatin Calcium) 80 Mg Tablet, 80 MG PO QHS Cyclosporine (Restasis) 0.05% Droperette, 1 DROP OD BID Digoxin (Digoxin) 125 Mcg Tablet, 62.5 MCG PO DAILY Dulaglutide (Trulicity) 0.75 Mg/0.5 Ml Pen.injctr, 0.75 MG SC QWEEK WEDNESDAYS Folic Acid (Folic Acid) 1 Mg Tablet, 1 MG PO DAILY Furosemide (Lasix) 20 Mg Tab, 20 MG PO DAILY Glipizide (Glipizide) 10 Mg Tablet, 10 MG PO BID Insulin Glargine,Hum.rec.anlog (Sharon Hastings) 300 Unit/1 Ml Insuln.pen, 150 UNIT SC DAILY Insulin Human Lispro (Humalog) 1 Units/0.01 Ml Inj, 1 DOSE SC ACHS PER SLIDING SCALE Levothyroxine Sodium (Synthroid) 150 Mcg Tablet, 150 MCG PO DAILY Losartan Potassium (Losartan Potassium) 25 Mg Tablet, 25 MG PO DAILY Methotrexate Sodium (Methotrexate) 2.5 Mg Tablet, 10 MG PO QWEEK FRIDAYS Metoprolol Tartrate (Metoprolol Tartrate) 100 Mg Tablet, 150 MG PO BID Omeprazole (Omeprazole) 40 Mg Cap, 40 MG PO DAILY Spironolactone (Spironolactone) 25 Mg Tablet, 12.5 MG PO DAILY Scheduled PRN Carboxymethylcellulose Sodium (Refresh Tears) 15 Ml Drops, 1 DROP OU TID PRN for DRY EYES Fluticasone Propionate (Flonase Allergy Relief) 9.9 Ml [place].susp, 2 SPRAY NARES DAILY PRN for ALLERGIES Allergies Coded Allergies: erythromycin base (Verified Allergy, Intermediate, rash, 04/28/19) sitagliptin (Verified Allergy, Intermediate, Rash, 04/28/19) amiodarone (Verified Adverse Reaction, Intermediate, Lung Issues, 04/18/19) latex (Verified Adverse Reaction, Mild, Risk, 04/18/19) lisinopril (Verified Adverse Reaction, Mild, cough, 04/18/19) A-FIB/CHADSVASC A-FIB History Current/History of A-Fib/PAF?: Yes Current PO Anticoag Therapy: Yes MIGUEL ASELUCHO Levine MD Sep 22, 2020 22:35
[2020-09-23] VITALS (9 sets, daily range): BP systolic 94–134; BP diastolic 51–77
[2020-09-23] MEDS: DOCUSATE SODIUM 100MG CAPSULE PO SCH ×2 (00:49→09:06)
[2020-09-23] MEDS: APIXABAN 5 MG TAB (ELIQUIS) PO SCH ×2 (00:49→09:06)
[2020-09-23] MEDS: METOPROLOL TART 50 MG TAB PO SCH ×2 (00:50→09:00)
[2020-09-23 04:41] LABS: HEMATOCRIT 38.7 % (36.0-47.0); HEMOGLOBIN 12.6 g/dl (12.0-15.5); MEAN CORPUSCULAR HEMOGLOBIN 30.7 pg (27.0-33.0); MEAN CORPUSCULAR HGB CONC 32.6 g/dl (32.0-36.5); MEAN CORPUSCULAR VOLUME 94.4 fl (80.0-96.0); PLATELET COUNT, AUTOMATED 217 10^3/uL (150-450); WHITE BLOOD COUNT 12.8 10^3/uL (4.0-10.0)
[2020-09-23 05:04] LABS: ALBUMIN 2.8 GM/DL (3.2-5.2); BILIRUBIN,TOTAL 0.5 MG/DL (0.2-1.0); CALCIUM LEVEL 8.4 MG/DL (8.8-10.2); CREATININE FOR GFR 1.27 MG/DL (0.55-1.30); GLOMERULAR FILTRATION RATE 43.9 (>39); POTASSIUM SERUM 4.1 MEQ/L (3.5-5.1)
[2020-09-23] MEDS ORDERED: LEVOTHYROXINE 150MCG TABLET (0.15MG) PO SCH (06:00)
[2020-09-23] MEDS ORDERED: propofoL 200 MG/20 ML VIAL As Ordered ONE (07:14)
[2020-09-23] MEDS ORDERED: LIDOCAINE 2% 100MG/5ML SDV (FOR ANES.) As Ordered ONE (07:15)
[2020-09-23] MEDS ORDERED: fentaNYL 100 MCG/2 ML INJECTION (J3010) As Ordered ONE (07:15)
[2020-09-23] MEDS ORDERED: dexameTHASONE 4 MG/ML 1ML VIAL (J1100 PER 1MG) As Ordered ONE (07:15)
[2020-09-23] MEDS ORDERED: ONDANSETRON 4MG/2ML VIAL As Ordered ONE (07:15)
[2020-09-23] MEDS: HumaLOG INSULIN (NovoLOG) PER UNIT SC SCH ×2 (07:30→11:52)
--- NOTE | 2020-09-23 07:36 | CR ---
CONSULTATION DATE: 09/23/2020 REFERRING PHYSICIAN: Dr. Degroot. INDICATION: Atrial fibrillation. HISTORY OF PRESENT ILLNESS: Mrs. Vega is well-known to me. She is a pleasant 75-year-old female who has a longstanding history of paroxysmal atrial fibrillation. She has a history of ablation in 2016 and several cardioversions over the years but as of the last three years she has been maintaining sinus rhythm on combination of high dose metoprolol and Digoxin. Approximately six weeks ago, the dose of Digoxin was reduced from 0.25 mg daily to 0.125 mg daily because her level then was in the toxic range at 2.4. She believes that since the change she noticed some acceleration of the heart rate but last weekend she said was a very busy weekend for her and then yesterday morning she noticed significant discomfort in her chest and sensation of palpitations and mild dyspnea, all of which are quite unusual for her. She checked her FitBit and her heart was over 100 beats per minute which is not usual. Her typical heart rate at rest is around 80 beats per minute. Consequently, she came to the Emergency Room and was found to be in atrial fibrillation with mildly tachycardic rate around 110 beats per minute. We attempted to restore sinus rhythm by giving her a high dose of flecainide. She received a total of 250 mg but unfortunately it failed to restore sinus mechanism. Consequently, currently there is a plan to proceed with DC cardioversion. PAST MEDICAL HISTORY: 1. Paroxysmal atrial fibrillation as above. 2. Diabetes. 3. Hypertension. 4. History of diastolic congestive heart failure. 5. Hyperlipidemia. 6. History of pulmonary fibrosis (was felt to be related to amiodarone toxicity even though I am highly skeptical of this). 7. Hypothyroidism. 8. DEVEN on CPAP. 9. Gastroparesis. 10.GERD. 11.Bilateral macular degeneration. 12.History of non-Hodgkin's lymphoma in remission. 13.Asthma. 14. Aortic stenosis PAST SURGICAL HISTORY: 1. Parathyroidectomy. 2. Left rotator cuff. 3. Tubal ligation. 4. Bilateral cataracts. 5. Cholecystectomy. 6. 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 7. Hernia repair. SOCIAL HISTORY: The patient is socially very active. She does not smoke, she does not drink significant amount of alcohol. 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 FAMILY HISTORY: Noncontributory. There is no significant cardiac disease. ALLERGIES: Intolerance to amiodarone, erythromycin, latex, Lisinopril and Sitagliptin. CURRENT MEDICATIONS: 1. Apixaban 5 mg twice a day. 2. Atorvastatin 80 mg at night. 3. Eyedrops. 4. Digoxin 6.25 mcg a day. 5. Trulicity once a week. 6. Flonase. 7. Folic acid 1 mg a day. 8. Furosemide 20 mg a day. 9. Glipizide 10 mg twice a day. 10.Toujeo insulin. 11.Humalog insulin. 12.Levothyroxine 150 mcg a day. 13.Losartan 25 mg a day. 14.Methotrexate 10 mg once a week. 15.Metoprolol tartrate 150 mg twice a day. 16.Omeprazole 40 mg a day. 17.Spironolactone 12.5 mg daily. REVIEW OF SYSTEMS: She denies any recent fever, chills, nausea, vomiting, or diarrhea. No other signs to suggest any form of infectious illness. No chest pain, no syncope or near syncope, no dizziness until yesterday. The rest is per HPI, otherwise negative. PHYSICAL EXAMINATION: GENERAL: Mrs. Vega is a pleasant 75-year-old female. She is alert, oriented and appropriate. VITAL SIGNS: Blood pressure is 106/51, heart rate is around 100, irregularly irregular. She has been afebrile. Saturation is 99% on room air. Weight was recorded at 79.6 kg. NECK: Her JVP is not high. LUNGS: Clear. I do not appreciate any rhonchi or wheezes. HEART: Irregularly irregular rhythm. There is approximately 2/6 intensity systolic ejection murmur radiating towards the carotid arteries. I do not appreciate any diastolic murmur. No gallop ABDOMEN: Soft and nontender. EXTREMITIES: Free of edema. Peripheral pulses are palpable. NEUROLOGIC: She moves all four extremities. Her speech is intact. 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 LABORATORY DATA: Her CBC was normal with the exception of mildly elevated WBC count of 12.8. Basic metabolic panel is normal. She had two sets of cardiac enzymes that were negative. Her pro-BNP is high at 6600. Albumin is 2.8. Digoxin level was 1.1. She was tested for SARS and influenza, both of which were negative. Chest x-ray revealed evidence for no cardiomegaly or congestive heart failure. An ECG revealed the presence of atrial fibrillation with ventricular rate of 87 beats per minute, left axis deviation and nonspecific ST-T abnormalities, poor R-wave progression is present. ASSESSMENT AND PLAN: Mrs. Vega is a 75-year-old female who has a longstanding history of paroxysmal atrial fibrillation but of the last three years has been maintaining sinus rhythm on combination of high dose metoprolol 150 twice a day plus Digoxin, the dose of which was recently reduced due to elevated level. She presents with atrial fibrillation probably about 1-2 days duration. Unfortunately, she failed to restore sinus mechanism with Flecainide and she is not tolerating the arrhythmia very well. Consequently, I do believe that is appropriate to proceed with cardioversion in order to relieve her symptoms. I am hoping that because of the onset of atrial fibrillation is recent that this will be successful and maintain sinus rhythm for quite some time. On the other hand, if she should have an early relapse we will have a difficult situation, Flecainide was not successful in cardioverting the patient and she also was not very successful with it in the past. We cannot utilize amiodarone in her age group, Sotalol is somewhat problematic. Consequently, I believe if she relapses with her difficulty controlling rate she should be considered for either redo ablation or AV riley ablation and pacemaker placement. Otherwise, I would continue her current medications and should the procedure be successful I believe she can be discharged home later today. As far as her other issues are concerned, her BNP is very high but it is partially related to rate, partially to atrial fibrillation, partially to her age and I do not appreciate any clinical evidence for congestive heart failure. Consequently, I do not believe we need to make significant changes in her medications in that regard. As far as the murmur is concerned, she has known aortic stenosis, the last echocardiogram last year indicated approximately moderate range. We will see her in the office and we will obtain follow-up echocardiogram but she tells me before this atrial fibrillation occurred she was quite active and did not have any shortness of breath, consequently I do not believe the valve stenosis is severe enough to warrant intervention. JAQUAN
[2020-09-23] MEDS ORDERED: PHENYLephrine 500MCG 5ML (100MCG/ML) SYRINGE As Ordered ONE (08:08)
[2020-09-23] MEDS ORDERED: ePHEDrine SULFATE 25 MG/5 ML(5MG/ML) SYRINGE As Ordered ONE (08:08)
[2020-09-23] MEDS ORDERED: LR 1,000 ML IV SCH (08:25)
[2020-09-23] MEDS ORDERED: ONDANSETRON 4MG/2ML VIAL IV PRN (08:25)
[2020-09-23] MEDS ORDERED: fentaNYL 100 MCG/2 ML INJECTION (J3010) IV PRN (08:25)
--- NOTE | 2020-09-23 08:42 | RO ---
OPERATIVE NOTE DATE OF OPERATION: 09/23/2020 PREOPERATIVE DIAGNOSIS: Atrial fibrillation. POSTOPERATIVE DIAGNOSIS: PROCEDURE: Cardioversion. ANESTHESIA: Andrew Merino CRNA SURGEON: Shantal Kulkarni M.D. PIPEFITTER: None. BRIEF HISTORY: Mrs. Vega is a 75-year-old female who has longstanding history of paroxysmal atrial fibrillation going back to 2016. She initially underwent ablation and several cardioversions but has been stable since until she relapsed approximately two days ago. She was already on very high dose of AV riley controlling agents and unfortunately in spite of this her heart rate was relatively tachycardic at 100 to 110 beats per minute range. She received 250 mg of Flecainide yesterday that failed to restore sinus rhythm. Consequently, we decided to pursue DC cardioversion. I met with the patient this morning. I examined her and talked to her about the nature of the procedure and potential complications. She was brought to recovery room in fasting condition. DESCRIPTION OF PROCEDURE: After appropriate time out was taken and all the monitors were applied, single 200 joules shock was delivered with defibrillator patches in standard position. She converted initially into junctional bradycardia with long pauses and ventricular rate initially in 20's. Consequently I started transcutaneous pacing immediately and she received total 1 mg Atropine and also Phenylephrine was administered by anesthesia. Her oxygenation never dropped. After approximately 1 minute she went back into sinus rhythm with ventricular rate into 60s and 70s and gradually recovered her heart rate into 80s. She awoke from the procedure without any obvious side effects from the sedation or the procedure itself. The patient will return back to PCU, will restart her chronic medications. Unfortunately, this experience indicates that she has underlying sick sinus and in future will very likely need pacemaker placement. JAQUAN
[2020-09-23] MEDS ORDERED: SPIRONOLACTONE 12.5MG PER 1/2 TABLET PO SCH (09:00)
[2020-09-23] MEDS: LEVEMIR (INSULIN DETEMIR) 1 UNITS/0.01ML SC SCH (09:00)
[2020-09-23] MEDS ORDERED: LOSARTAN 25 MG TAB PO SCH (09:00)
[2020-09-23] MEDS ORDERED: OMEPRAZOLE 20 MG CAP PO SCH (09:00)
[2020-09-23] MEDS ORDERED: FUROSEMIDE 20 MG TAB PO SCH (09:00)
[2020-09-23] MEDS ORDERED: DIGOXIN 0.0625MG PER 1/2TABLET PO SCH (09:00)
[2020-09-23] MEDS ORDERED: FOLIC ACID 1 MG TAB PO SCH (09:00)
[2020-09-23] MEDS ORDERED: ATROPINE SULF 1MG/10ML SYRINGE (J0461) ONE (09:28)
--- NOTE | 2020-09-23 23:06 | DS.PDOC ---
Discharge Summary General Date of Admission Sep 22, 2020 at 20:06 Date of Discharge Sep 23, 2020 Specialist/Consultants [facility], Dr. Kulkarni Discharge Summary PROCEDURES PERFORMED DURING STAY: Cardioversion by Dr. Kulkarni on 09/23/2020 ADMITTING DIAGNOSES: 1. A.fib with RVR 2. Diabetes Mellitus 3. Hypothyroidism 4. Hypertension 5. Chronic diastolic CHF 6. DEVEN on CPAP 7. Hyperlipidemia 8. Obesity 9. GERD DISCHARGE DIAGNOSES: 1. A.fib with RVR 2. Diabetes Mellitus 3. Hypothyroidism 4. Hypertension 5. Chronic diastolic CHF 6. DEVEN on CPAP 7. Hyperlipidemia 8. Obesity 9. GERD COMPLICATIONS/CHIEF COMPLAINT: Palpitations HISTORY OF PRESENT ILLNESS: Copied from admitting physician's H&P " 75-year-old female with a history of atrial fibrillation, follows with Dr. Kulkarni who presents after feeling palpitations at home found to be in A. fib with RVR. Heart rate in the ED was initially in the 140s. Dr. Kulkarni was contacted and he recommended 2 doses of flecainide. Patient's heart rate did improve down to the 90s when I saw her at bedside. She tells me the feeling of palpitations with some main reason she came to the hospital and that otherwise she feels her normal self. Palpitations started yesterday and intermittent all day into today. She denies any chest pain. Denies shortness of breath. Denies fevers or chills. She tells me she is compliant with her medications. She tells me that she is not able to take amiodarone as it resulted in [place] fibrosis for her. In the emergency department Dr. Kulkarni recommended no further IV medications and resumption of home medications and he will see her in the morning for possible cardioversion if her heart rate does not improve by the morning. " HOSPITAL COURSE: Despite the flecainide, patient's rhythm did not convert. 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 Patient did have an episode of bradycardia/asystole requiring atropine and hypotension requiring some Henry-Synephrine due to the propofol, but patient returned to the floor stable. Patient wanted to go home soon. Dr. Kulkarni recommended that the patient be monitoring until noon and then sent home. Patient did well. Blood pressure medications were held in the morning due to hypotension, but blood pressures improved. She did not have any bradycardia or pauses. Patient felt well. Denied palpitations, chest pain, or dyspnea. We talked about measuring blood pressure at home prior to taking blood pressure medications, and she is well aware of this process. Patient felt ready for home and was subsequently discharged home. DISCHARGE MEDICATIONS: Please see below. ALLERGIES: Please see below. PHYSICAL EXAMINATION ON DISCHARGE: VITAL SIGNS: Please see below. GENERAL: Comfortable, in no apparent distress HEENT: Head normocephalic, atraumatic NECK: Supple CARDIOVASCULAR EXAMINATION: Regular rate and rhythm RESPIRATORY EXAMINATION: Lungs clear to auscultation bilaterally ABDOMINAL EXAMINATION: Soft, non-tender, normal bowel sounds NEUROLOGICAL EXAMINATION: CN 3-12 grossly intact PSYCHIATRIC EXAMINATION: Normal mood and affect LABORATORY DATA: Please see below. IMAGING: Radiologist interpretation CXR No acute cardiopulmonary process appreciated. PROGNOSIS: Good ACTIVITY: As tolerated. DIET: Carbohydrate consistent diet DISCHARGE PLAN: Home DISPOSITION: Home, Self-Care. DISCHARGE INSTRUCTIONS: 1. Follow up with Cardiology, Dr. Kulkarni within 1 week 2. Follow up with PCP in 1 to 2 weeks ITEMS TO FOLLOWUP ON ON OUTPATIENT: 1. Blood pressure DISCHARGE CONDITION: Stable. Total time spent on discharge planning, discharge summary, and medication reconciliation: 55 minutes Vital Signs/I&Os Vital Signs Date Time Temp Pulse Resp B/P (MAP) Pulse Ox O2 Delivery O2 Flow Rate FiO2 09/23/20 12:54 96.4 85 20 134/63 (86) 98 Room Air 09/23/20 08:38 10.0 I&O- Last 24 Hours up to 6 AM 09/23/20 06:00 Intake Total 120 ml Output Total 0 ml Balance 120 ml Laboratory Data Labs 24H Laboratory Tests 2 09/22/20 23:35: Bedside Glucose (Misc Panel) 143H 09/23/20 00:20: Bedside Glucose (Misc Panel) 135H 09/23/20 04:32: Nucleated Red Blood Cells % (auto) 0.0, Anion Gap 9, Glomerular Filtration Rate 43.9, Calcium Level 8.4L, Magnesium Level 2.0, Total Bilirubin 0.5, Aspartate Amino Transf (AST/SGOT) 23, Alanine Aminotransferase (ALT/SGPT) 37, Alkaline Phosphatase 79, Total Protein 5.0L, Albumin 2.8L, Albumin/Globulin Ratio 1.3 09/23/20 09:00: Bedside Glucose (Misc Panel) 89 09/23/20 11:48: Bedside Glucose (Misc Panel) 207H CBC/BMP Laboratory Tests 09/23/20 04:32 FSBS Laboratory Tests Test 09/22/20 23:35 09/23/20 00:20 09/23/20 09:00 09/23/20 11:48 Range/Units Bedside Glucose (Misc Panel) 143 135 89 207 83-110 MG/DL Discharge Medications Scheduled Apixaban (Eliquis) 5 Mg Tab, 5 MG PO BID, (Reported) Atorvastatin Calcium (Atorvastatin Calcium) 80 Mg Tablet, 80 MG PO QHS, (Reported) Cyclosporine (Restasis) 0.05% Droperette, 1 DROP OD BID, (Reported) Digoxin (Digoxin) 125 Mcg Tablet, 62.5 MCG PO DAILY, (Reported) Dulaglutide (Trulicity) 0.75 Mg/0.5 Ml Pen.injctr, 0.75 MG SC QWEEK, (Reported) WEDNESDAYS Folic Acid (Folic Acid) 1 Mg Tablet, 1 MG PO DAILY, (Reported) Furosemide (Lasix) 20 Mg Tab, 20 MG PO DAILY, (Reported) Glipizide (Glipizide) 10 Mg Tablet, 10 MG PO BID, (Reported) Insulin Glargine,Hum.rec.anlog (Sharon Hastings) 300 Unit/1 Ml Insuln.pen, 150 UNIT SC DAILY, (Reported) Insulin Human Lispro (Humalog) 1 Units/0.01 Ml Inj, 1 DOSE SC ACHS, (Reported) PER SLIDING SCALE Levothyroxine Sodium (Synthroid) 150 Mcg Tablet, 150 MCG PO DAILY, (Reported) Losartan Potassium (Losartan Potassium) 25 Mg Tablet, 25 MG PO DAILY, (Reported) Methotrexate Sodium (Methotrexate) 2.5 Mg Tablet, 10 MG PO QWEEK, (Reported) FRIDAYS Metoprolol Tartrate (Metoprolol Tartrate) 100 Mg Tablet, 150 MG PO BID, (Reported) Omeprazole (Omeprazole) 40 Mg Cap, 40 MG PO DAILY, (Reported) Spironolactone (Spironolactone) 25 Mg Tablet, 12.5 MG PO DAILY, (Reported) Scheduled PRN Carboxymethylcellulose Sodium (Refresh Tears) 15 Ml Drops, 1 DROP OU TID PRN for DRY EYES, (Reported) Fluticasone Propionate (Flonase Allergy Relief) 9.9 Ml [place].susp, 2 SPRAY NARES DAILY PRN for ALLERGIES, (Reported) Allergies Coded Allergies: erythromycin base (Verified Allergy, Intermediate, rash, 04/28/19) sitagliptin (Verified Allergy, Intermediate, Rash, 04/28/19) amiodarone (Verified Adverse Reaction, Intermediate, Lung Issues, 04/18/19) latex (Verified Adverse Reaction, Mild, Risk, 04/18/19) lisinopril (Verified Adverse Reaction, Mild, cough, 04/18/19) MACARIO BRYAN DO Sep 23, 2020 23:06
[2020-09-24] MEDS ORDERED: METHOTREXATE 2.5 MG TAB (J8610 PER 2.5MG) PO SCH (09:00)
--- NOTE | 2020-09-25 00:35 | ECGEPIP ---
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 Electronically Signed on 09-25-2020 0:35:22 EDT by David Hinds
== END 2020-09-23 15:05 | disposition home or self-care (01) | DRG 309 ==
LOC: M ED 11:34 → M ED INP 20:06 → ENRESERV 22:02 → M PCU 09-23 00:05
PROVIDERS: ADMIT Family Medicine; ATTEND Internal Medicine
PROC: 5A2204Z Restoration of Cardiac Rhythm, Single (ICD-10-PCS; principal; 2020-09-23 07:30)
DX: I48.0 Paroxysmal atrial fibrillation (principal); I50.32 Chronic diastolic (congestive) heart failure; I11.0 Hypertensive heart disease with heart failure; E11.43 Type 2 diabetes mellitus with diabetic autonomic (poly)neuropathy; K31.84 Gastroparesis; E03.9 Hypothyroidism, unspecified; E78.5 Hyperlipidemia, unspecified; E66.9 Obesity, unspecified; G47.33 Obstructive sleep apnea (adult) (pediatric); J84.10 Pulmonary fibrosis, unspecified; J45.909 Unspecified asthma, uncomplicated; Z98.41 Cataract extraction status, right eye; Z98.42 Cataract extraction status, left eye; K21.9 Gastro-esophageal reflux disease without esophagitis; H35.30 Unspecified macular degeneration; Z68.33 Body mass index [BMI] 33.0-33.9, adult; Z79.899 Other long term (current) drug therapy; Z79.4 Long term (current) use of insulin; I95.9 Hypotension, unspecified; R00.1 Bradycardia, unspecified; Z91.040 Latex allergy status; Z88.8 Allergy status to other drugs, medicaments and biological substances

== ENCOUNTER → 2020-10-04 | Outpatient (CLI) | payer MEDICARE ==
[~2020-10-04] MED LIST changes: +AMOX500T2; +ASCO250T20 PO; +ATOR80TA59 PO; +BISO10TA13 PO; +CHLO125TA PO; -FLON1SPR NARES; +GLIP10TA6 PO; +LOSA25TA14 PO; +OMEP40CA4 PO; -OMEP40CA97 PO; +REFR0.5D8 OU; +REFROIN OU
--- NOTE | 2020-10-04 10:00 | REPVR ---
PROCEDURE INFORMATION: Exam: CT Neck Without Contrast Exam date and time: 10/04/2020 8:57 AM Age: 75 years old Clinical indication: Mass, lump, or swelling in neck; Additional info: Localized swelling mass in neck TECHNIQUE: Imaging protocol: Computed tomography images of the neck without contrast. Radiation optimization: All CT scans at this facility use at least one of these dose optimization techniques: automated exposure control; mA and/or kV adjustment per patient size (includes targeted exams where dose is matched to clinical indication); or iterative reconstruction. COMPARISON: PT PET/CT Skull/mid thigh 01/22/2018 2:11 PM FINDINGS: Paranasal sinuses: Near complete opacification of bilateral maxillary sinuses and bilateral ethmoid air cells. Opacified right frontal sinus. Mucosal thickening in the bilateral sphenoid sinuses. Nasopharynx: Unremarkable. Oropharynx: Unremarkable. No significant tonsillar enlargement. Hypopharynx: Unremarkable. Larynx: Unremarkable. Normal epiglottis. Retropharyngeal space: Unremarkable. Submandibular/Parotid glands: Nonspecific asymmetric prominence of the left parotid gland. No clear evidence of associated inflammation or underlying mass although evaluation is significantly limited due to lack of intravenous contrast. Thyroid: Normal. No enlarged or calcified nodules. Lymph nodes: Unremarkable. No lymphadenopathy. Trachea: Visualized trachea is unremarkable. Lungs: Unremarkable as visualized. Bones/joints: Degenerative disease at C5-C6 and C6-C7. Mild stenosis of the spinal canal at C6-C7. Vasculature: Atherosclerotic disease. IMPRESSION: Nonspecific asymmetric prominence of the left parotid gland. No clear evidence of associated inflammation or underlying mass although evaluation is significantly limited due to lack of intravenous contrast. Electronically signed by: Nolberto Hill On 10/04/2020 09:59:48 AM
== END ==
LOC: M RAD 08:37
PROVIDERS: ATTEND Otolaryngology
DX: R22.1 Localized swelling, mass and lump, neck (principal); M50.322 Other cervical disc degeneration at C5-C6 level; M50.323 Other cervical disc degeneration at C6-C7 level; M48.02 Spinal stenosis, cervical region; I25.10 Atherosclerotic heart disease of native coronary artery without angina pectoris
CPT/HCPCS: 70490; G0463

== ENCOUNTER 2020-10-07 20:08 | Inpatient (IN) | payer MEDICARE ==
[~2020-10-07] VITALS: Ht 154.9 cm; Wt 81.5 kg
[~2020-10-07 20:08] MED LIST changes: -AMOX500T2; -ASCO250T20 PO; -BISO10TA13 PO; -CHLO125TA PO; -REFROIN OU
[2020-10-07] MEDS ORDERED: AMOX500T2 (20:30)
[2020-10-07] MEDS ORDERED: METOPROLOL TARTRATE 100 MG TAB PO ONE (20:55)
[2020-10-07] MEDS: METOPROLOL 5 MG/5 ML VIAL IV SCH ×3 (20:58→21:26)
[2020-10-07 21:00] LABS: BASO # 0.1 10^3/uL (0.0-0.2); BASO % 0.5 % (0.0-1.0); EOS # 0.6 10^3/uL (0.0-0.5); EOS % 6.8 % (0.0-3.0); HEMATOCRIT 41.5 % (36.0-47.0); HEMOGLOBIN 13.4 g/dl (12.0-15.5); LYMPH # 3.4 10^3/uL (1.5-5.0); LYMPH % 35.5 % (24.0-44.0); MEAN CORPUSCULAR HEMOGLOBIN 29.8 pg (27.0-33.0); MEAN CORPUSCULAR HGB CONC 32.3 g/dl (32.0-36.5); MEAN CORPUSCULAR VOLUME 92.2 fl (80.0-96.0); MONO # 1.1 10^3/uL (0.0-0.8); MONO % 11.1 % (2.0-8.0); NEUTROPHILS # 4.3 10^3/uL (1.5-8.5); NEUTROPHILS % 45.6 % (36.0-66.0); PLATELET COUNT, AUTOMATED 260 10^3/uL (150-450); WHITE BLOOD COUNT 9.4 10^3/uL (4.0-10.0)
[2020-10-07 21:32] LABS: ALBUMIN 3.6 GM/DL (3.2-5.2); ALT/SGPT 42 U/L (12-78); BILIRUBIN,DIRECT 0.2 MG/DL (0.0-0.2); BILIRUBIN,TOTAL 0.5 MG/DL (0.2-1.0); BLOOD UREA NITROGEN 20 MG/DL (7-18); CALCIUM LEVEL 8.8 MG/DL (8.8-10.2); CARBON DIOXIDE LEVEL 28 MEQ/L (21-32); CHLORIDE LEVEL 111 MEQ/L (98-107); CK-MB VALUE MASS 2.2 NG/ML (<3.6); CPK CREATINE PHOSPHOKINASE 128 U/L (26-192); CREATININE FOR GFR 1.23 MG/DL (0.55-1.30); GLOMERULAR FILTRATION RATE 45.6 (>39); GLUCOSE, FASTING 150 MG/DL (70-100); MB/CK RELATIVE INDEX 1.72 (< OR =4); POTASSIUM SERUM 4.3 MEQ/L (3.5-5.1); SODIUM LEVEL 144 MEQ/L (136-145); TOTAL PROTEIN 6.2 GM/DL (6.4-8.2); TROPONIN I < 0.02 NG/ML (< 0.10)
--- NOTE | 2020-10-07 21:54 | ECGEPIP ---
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
--- NOTE | 2020-10-07 21:56 | REPVR ---
PROCEDURE INFORMATION: Exam: XR Chest Exam date and time: 10/07/2020 8:40 PM Age: 75 years old Clinical indication: Other: Chest pain TECHNIQUE: Imaging protocol: XR of the chest. Views: 1 view. COMPARISON: CR PORTABLE CHEST X-RAY 09/22/2020 11:42 AM FINDINGS: Lungs: Unremarkable. No consolidation. Pleural spaces: Unremarkable. No pleural effusion. No pneumothorax. Heart/Mediastinum: Unremarkable. No cardiomegaly. Bones/joints: Unremarkable. IMPRESSION: No acute findings. Electronically signed by: Jatinder Rubio On 10/07/2020 21:55:39 PM
[2020-10-07] MEDS ORDERED: NITROGLYCERIN 0.4 MG SUBL TABLET SL STA (22:19)
[2020-10-07 23:28] LABS: DIGOXIN LEVEL 0.5 NG/ML (0.5-2.0)
[2020-10-08] VITALS (23 sets, daily range): BP systolic 95–167; BP diastolic 37–79; PULSE 44
--- NOTE | 2020-10-08 00:03 | HPEPDOC ---
[facility] Medical History & Physical Date of Admission Oct 08, 2020 Date of Service: Oct 08, 2020 Primary Care Physician: ALBERTO KEITA MD Attending Physician: ELAINE THOMAS MD History and Physical TIME OF SERVICE: 255AM CHIEF COMPLAINT: chest heaviness HISTORY OF PRESENT ILLNESS: was last admitted overnight on September 22 for management of Afib w RVR with flecainide and cardioversion; after the cardioversion she had an episode of bradycardia/asystole requiring atropine and hypotension due to the propofol that was managed with Henry-Synephrine. Unfortunately she ran out of her metoprolol 2 days ago (has missed 3 doses) and is waiting for a refill. Yesterday evening at about 7:30PM she developed chest heaviness so she came to the ER. Despite Valsalva maneuvers 150mg of PO metoprolol tartrate, 5 mg of IV metoprolol tartrate she remains in RVR. Marco Antonio Frias discussed the case with who recommended IV diltiazem. REVIEW OF SYSTEMS: 12-point review of systems negative except as listed in HPI PAST MEDICAL/SURGICAL HISTORY: Longstanding persistent Atrial fibrillation s/p ablation in 2014 and Cardioversion in September of 2020, IDDM, Essential HTN, Chronic HFpEF, DLP, Amiodarone induced pulmonary fibrosis, Hypothyroidism, DEVEN on CPAP, CKD 3, Gastroparesis, GERD, Macular degeneration, History of follicular non- Hodgkin's lymphoma in remission, Chronic Asthma, Right parotidectomy, Left rotator cuff surgery, Tubal ligation, Bilateral cataract surgery, Cholecyst ectomy, Left vitreous hemorrhage 2013, resection of facial BCC, umbilical hernia repair, right total knee replacement SOCIAL HISTORY: She doesnt smoke, drink or use recreational drugs. 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 FAMILY HISTORY: Father DM, CAD & HTN / Mother HTN, DM, Hypothyroidism / siblings DM, HTN, CVA ALLERGIES: Please see below. HOME MEDICATIONS: Please see below. PHYSICAL EXAMINATION: Vital Signs Date Time Temp Pulse Resp B/P (MAP) Pulse Ox O2 Delivery O2 Flow Rate FiO2 10/07/20 20:08 76 180/105 (130) 99 Room Air GENERAL APPEARANCE: well-nourished and developed / NAD HEENT: EOMI / MMM&P CARDIOVASCULAR: RRR/NMRG / no LE edema LUNGS: CTAB on RA ABDOMEN: contour flat / soft & NT w palpation MUSCULOSKELETAL: NCAT / ROMIx 4 /able to sit up w/o assistance INTEGUMENT: not flushed / no rashes / not cyanotic NEUROLOGICAL: CN 2-12 intact / speech not dysarthric PSYCHIATRIC: A&O x3 /able to understand and follow all commands LABORATORY DATA: IMAGING: Chest xray IMPRESSION: No acute findings. MICROBIOLOGY: respiratory panel neg ASSESSMENT: is a 75 yr old w A fib, IDDM, HTN, HFpEF, DLP, Pulmonary fibrosis, Hypothyroidism, DEVEN, Asthma, CKD 3 & Gastroparesis who is admitted for Rapid Afib. PLAN: 1 Rapid A Fib Likely triggered by missing BB & suboptimal Dig levels She is still in RVR despite 150mg of PO metoprolol tartrate, 5 mg of IV metoprolol tartrate & 5mg of IV diltiazem Plan: admit to ICU for Cardizem drip/ telemetry / f/u serial Trops, TSH & Mg / resume Apixaban, Digoxin 2 Chest pressure Plan: telemetry & trend trops / she is scheduled for an Echo and stress test at office in Nov. 3 Essential HTN / Chronic HFpEF Plan: Furosemide, Losartan 4 IDDM Plan: diabetic diet / f/u accuchecks / /hypoglycemia protocol / sliding scale insulin / f/u A1C (target A1C for a geriatric patient that is functionally independent is about 7.1 to 8.0% ) / she is on glargine 150 units daily and Trulicty and Glipizide at home we will hold these meds and start Levemir 80 units daily for now / her PCP may consider out pt Endo referral to switch from basal bolus injections to a continuous subcutaneous insulin infusion which has been shown to produced small improvements in A1C, improve QOL and reduce episodes of severe hypoglycemia 5 Hypothyroidism Plan: Levothyroxine 6 DLP Plan: Atorvastatin 7 DEVEN Plan: own CPAP 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 Plan: c/w MTX & Folic Acid 9 Sinusitis Plan: c/w Augmentin 10 Class 1 Obesity Complicates care DVT px n/a on DOAC Dispo: home after at least 2 midnights stay Home Medications Scheduled Amoxicillin/Potassium Clav (Augmentin 500-125 Tablet) 1 Each Tablet, 500 MG PO Q8H FOR 10 DAYS: STARTED ON 10/06/20 Apixaban (Eliquis) 5 Mg Tab, 5 MG PO BID Atorvastatin Calcium (Atorvastatin Calcium) 80 Mg Tablet, 80 MG PO QHS Cyclosporine (Restasis) 0.05% Droperette, 1 DROP OD BID Digoxin (Digoxin) 125 Mcg Tablet, 62.5 MCG PO DAILY Dulaglutide (Trulicity) 0.75 Mg/0.5 Ml Pen.injctr, 0.75 MG SC QWEEK WEDNESDAYS Folic Acid (Folic Acid) 1 Mg Tablet, 1 MG PO DAILY Furosemide (Lasix) 20 Mg Tab, 20 MG PO DAILY Glipizide (Glipizide) 10 Mg Tablet, 10 MG PO BID Insulin Glargine,Hum.rec.anlog (Toujeo Solostar) 300 Unit/1 Ml Insuln.pen, 150 UNIT SC DAILY Insulin Human Lispro (Humalog) 1 Units/0.01 Ml Inj, 1 DOSE SC ACHS PER SLIDING SCALE Levothyroxine Sodium (Synthroid) 150 Mcg Tablet, 150 MCG PO DAILY Losartan Potassium (Losartan Potassium) 25 Mg Tablet, 25 MG PO DAILY Methotrexate Sodium (Methotrexate) 2.5 Mg Tablet, 10 MG PO QWEEK [place] Metoprolol Tartrate (Metoprolol Tartrate) 100 Mg Tablet, 150 MG PO BID Mineral Oil/Petrolatum,White (Refresh P.m. Ointment) 3.5 Gm Oint...g., 1 DOSE OU QHS Omeprazole (Omeprazole) 40 Mg Cap, 40 MG PO DAILY Spironolactone (Spironolactone) 25 Mg Tablet, 12.5 MG PO DAILY Scheduled PRN Carboxymethylcellulose Sodium (Refresh Tears) 15 Ml Drops, 1 DROP OU TID PRN for DRY EYES Fluticasone Propionate (Flonase Allergy Relief) 9.9 Ml [place].susp, 1 SPRAY NA DAILY PRN for NASAL CONGESTION Allergies Coded Allergies: erythromycin base (Verified Allergy, Intermediate, rash, 04/28/19) sitagliptin (Verified Allergy, Intermediate, Rash, 04/28/19) amiodarone (Verified Adverse Reaction, Intermediate, Lung Issues, 04/18/19) latex (Verified Adverse Reaction, Mild, Risk, 04/18/19) lisinopril (Verified Adverse Reaction, Mild, cough, 04/18/19) A-FIB/CHADSVASC A-FIB History Current/History of A-Fib/PAF?: Yes Current PO Anticoag Therapy: Yes ELAINE THOMAS MD Oct 08, 2020 00:03
[2020-10-08] MEDS ORDERED: MOM 30ML SUSPENSION UDC PO PRN (00:05)
[2020-10-08] MEDS ORDERED: MAALOX 30 ML SUSP *UDC PO PRN (00:05)
[2020-10-08 00:11] LABS: CK-MB VALUE MASS 1.9 NG/ML (<3.6); CPK CREATINE PHOSPHOKINASE 106 U/L (26-192); MB/CK RELATIVE INDEX 1.79 (< OR =4); TROPONIN I < 0.02 NG/ML (< 0.10)
[2020-10-08] MEDS ORDERED: diltiaZEM 125 MG in NS 100 ML IV SCH (00:30)
[2020-10-08 00:38] LABS: NT-PRO BNP 2476 PG/ML (<125)
[2020-10-08] MEDS ORDERED: AUGM500T34 PO (00:44)
[2020-10-08] MEDS ORDERED: REFROIN OU (00:44)
[2020-10-08 01:46] LABS: RSV AMPLIFICATION NEGATIVE (NEGATIVE)
[2020-10-08] MEDS ORDERED: DEXTROSE 50% 50 ML SYRINGE IV PRN (02:15)
[2020-10-08] MEDS ORDERED: GLUCAGON INJ 1MG VIAL SC PRN (02:15)
[2020-10-08] MEDS ORDERED: GLUCOSE 4GM CHEW TABLET PO PRN (02:15)
[2020-10-08] MEDS ORDERED: FLUTICASONE PROP 0.05% NASAL SPRAY 16 GM (FLONASE) PRN (02:40)
[2020-10-08 03:34] LABS: HEMATOCRIT 41.2 % (36.0-47.0); HEMOGLOBIN 13.3 g/dl (12.0-15.5); MEAN CORPUSCULAR HEMOGLOBIN 29.9 pg (27.0-33.0); MEAN CORPUSCULAR HGB CONC 32.3 g/dl (32.0-36.5); MEAN CORPUSCULAR VOLUME 92.6 fl (80.0-96.0); PLATELET COUNT, AUTOMATED 263 10^3/uL (150-450); RED BLOOD COUNT 4.45 10^6/uL (4.00-5.40); WHITE BLOOD COUNT 10.7 10^3/uL (4.0-10.0)
[2020-10-08] MEDS ORDERED: APIXABAN 5 MG TAB (ELIQUIS) PO SCH (03:40)
[2020-10-08 04:03] LABS: TROPONIN I 0.02 NG/ML (< 0.10)
[2020-10-08] MEDS: ATORVASTATIN 20 MG TAB PO SCH ×2 (04:07→20:54)
[2020-10-08] MEDS: ACETAMINOPHEN TAB 650MG DOSE (2X325MG) PO PRN (04:08)
[2020-10-08] MEDS ORDERED: NS 500 ML IV ONE (06:35)
[2020-10-08] MEDS ORDERED: CALCIUM GLUCONATE 1,000 MG in D5W MINI-BAG PLUS 100 ML IV ONE (06:35)
--- NOTE | 2020-10-08 06:36 | IPNPDOC ---
Text Note Date of Service The patient was seen on 10/08/20. NOTE #Asymptomatic Bradycardia Shortly after dc the Diltiazem, and prior to transfer to the ICU the patient developed bradycardia. Her EKG showed a juctional rhythm w a rate of 43 Plan: IVF / f/u chest xray bc CCB tox can cause pulmonary edema / f/u FSBS Q6H bc CCB tox can cause hyperglycemia / per d/w there is no need to reverse the CCB bc she is asymptomatic & we should touch base with for pacemaker placement VS,Sunny, I+O VS, Sunny, I+O Laboratory Tests 10/07/20 20:49 10/08/20 03:14 Vital Signs Date Time Temp Pulse Resp B/P (MAP) Pulse Ox O2 Delivery O2 Flow Rate FiO2 10/08/20 06:04 43 20 97/49 (65) 99 Room Air 10/08/20 04:50 96.7 I&O- Last 24 Hours up to 6 AM 10/08/20 06:00 Intake Total 15 ml Output Total 300 ml Balance -285 ml ELAINE THOMAS MD Oct 08, 2020 06:36
[2020-10-08] MEDS: AUGMENTIN 500 MG TAB PO SCH ×3 (07:25→20:54)
[2020-10-08] MEDS ORDERED: HumaLOG INSULIN (NovoLOG) PER UNIT SC SCH ×2 (07:30→21:00)
[2020-10-08] MEDS: HumaLOG INSULIN (NovoLOG) PER UNIT SC SCH ×4 (07:40→21:00)
--- NOTE | 2020-10-08 08:18 | REP ---
INDICATION: dyspnea. COMPARISON: 10/07/2020. TECHNIQUE: Single portable AP view of the chest was performed. FINDINGS: There is no acute infiltrate or pulmonary edema. Lungs are clear. The heart is not significantly enlarged. The mediastinal silhouette is unremarkable. The visualized osseous structures are intact. IMPRESSION: No acute pulmonary disease. <Electronically signed by Marty Chau > 10/08/20 0814
[2020-10-08] MEDS: LEVOTHYROXINE 150MCG TABLET (0.15MG) PO SCH (08:24)
[2020-10-08] MEDS: FOLIC ACID 1 MG TAB PO SCH (08:25)
[2020-10-08] MEDS: OMEPRAZOLE 20 MG CAP PO SCH (08:25)
[2020-10-08] MEDS: SPIRONOLACTONE 25 MG TAB PO SCH (08:26)
[2020-10-08] MEDS: LOSARTAN 25 MG TAB PO SCH (08:27)
[2020-10-08] MEDS: LEVEMIR (INSULIN DETEMIR) 1 UNITS/0.01ML SC SCH (08:38)
[2020-10-08] MEDS ORDERED: METOPROLOL TARTRATE 100 MG TAB PO SCH (09:00)
[2020-10-08] MEDS ORDERED: DIGOXIN 0.125 MG TAB PO SCH (09:00)
[2020-10-08] MEDS ORDERED: FUROSEMIDE 20 MG TAB PO SCH (09:00)
[2020-10-08] MEDS ORDERED: METHOTREXATE 2.5 MG TAB (J8610 PER 2.5MG) PO SCH (09:00)
--- NOTE | 2020-10-08 10:47 | IPNPDOC ---
Subjective Date Seen The patient was seen on 10/08/20. Subjective Chief Complaint/HPI Feels well this morning except for slight persistent chest pressure which is not bothering her. No SOB, no sensation of palpitation. Objective Physical Examination General Exam: Positive: Alert, Cooperative, No Acute Distress Eye Exam: Positive: Conjunctiva & lids normal, EOMI; Negative: Sclera icteric ENT Exam: Positive: Atraumatic, Mucous membr. moist/pink, Pharynx Normal Neck Exam: Positive: Supple; Negative: JVD, thyromegaly Chest Exam: Positive: Clear to auscultation, Normal air movement Heart Exam: Positive: Bradycardic, Regular Rhythm, Normal S1, Normal S2; Negative: Murmurs, Rubs Telemetry: Positive: Other Telemetry: (junctional rhythm) Abdomen Exam: Positive: Normal bowel sounds, Soft; Negative: Tenderness, Hepatospenomegaly Extremity Exam: Negative: Clubbing, Cyanosis, Edema Assessment /Plan Assessment is a 75 yr old with PMH of persistent Atrial fibrillation s/p ablation in 2014 and Cardioversion in September of 2020, IDDM, Essential HTN, Chronic HFpEF, DLP, Amiodarone induced pulmonary fibrosis, Hypothyroidism, DEVEN on CPAP, CKD 3, Gastroparesis, GERD, Macular degeneration, History of follicular non-Hodgkin's lymphoma in remission, Chronic Asthma, Right parotidectomy, Left rotator cuff surgery, Tubal ligation, Bilateral cataract surgery, Cholecystectomy, Left vitreous hemorrhage 2013, resection of facial BCC, umbilical hernia repair, right total knee replacement was admitted for Afib with RVR. After multiple medictions she converted to Junctional rhythm at 44. She remains in junctional rhythm. Afib with RVR Now converted to Junctional rhythm @44 will hold digoxin and metoprolol. discussed with Dr Hinds adn Dr Kulkarni. Dr Kulkarni is on vacation. Dr Hinds said that she will need pacemaker. Dr Hinds said he is going to speak with Dr Rios about this patient and requirement of pacemaker. Stop Eliquis. Essential HTN / Chronic HFpEF Furosemide, spironolactone, Losartan will hold all as in junctional rhythm with soft BPs. IDDM continue levemir and lispro. 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 c/w MTX & Folic Acid Sinusitis c/w Augmentin Class 1 Obesity Complicates care Plan/VTE VTE Prophylaxis Ordered?: Yes VS, I&O, 24H, Fishbone Vital Signs/I&O Vital Signs Date Time Temp Pulse Resp B/P (MAP) Pulse Ox O2 Delivery O2 Flow Rate FiO2 10/08/20 08:30 45 124/56 (78) 99 Room Air 10/08/20 08:00 97.4 18 I&O- Last 24 Hours up to 6 AM 10/08/20 06:00 Intake Total 15 ml Output Total 300 ml Balance -285 ml Laboratory Data 24H LABS Laboratory Tests 2 10/07/20 20:49: Immature Granulocyte % (Auto) 0.5, Neutrophils (%) (Auto) 45.6, Lymphocytes (%) (Auto) 35.5, Monocytes (%) (Auto) 11.1H, Eosinophils (%) (Auto) 6.8H, Basophils (%) (Auto) 0.5, Neutrophils # (Auto) 4.3, Lymphocytes # (Auto) 3.4, Monocytes # (Auto) 1.1H, Eosinophils # (Auto) 0.6H, Basophils # (Auto) 0.1, Nucleated Red Blood Cells % (auto) 0.0, Anion Gap 5L, Glomerular Filtration Rate 45.6, Calcium Level 8.8, Total Bilirubin 0.5, Direct Bilirubin 0.2, Aspartate Amino Transf (AST/SGOT) 21, Alanine Aminotransferase (ALT/SGPT) 42, Alkaline Phosphatase 96, Total Creatine Kinase 128, Creatine Kinase MB 2.2, Creatine Kinase MB Relative Index 1.72, Troponin I < 0.02, Total Protein 6.2L, Albumin 3.6, Albumin/Globulin Ratio 1.4, Digoxin Level 0.5 10/07/20 23:22: Total Creatine Kinase 106, Creatine Kinase MB 1.9, Creatine Kinase MB Relative Index 1.79, Troponin I < 0.02, ST-Yqr-O-Type Natriuretic Peptide 2476H 10/08/20 00:36: Coronavirus (COVID-19)(PCR) NEGATIVE, Influenza Type A (RT-PCR) NEGATIVE, I nfluenza Type B (RT-PCR) NEGATIVE, Respiratory Syncytial Virus (PCR) NEGATIVE 10/08/20 03:14: Nucleated Red Blood Cells % (auto) 0.0, Troponin I 0.02 10/08/20 07:30: Bedside Glucose (Misc Panel) 214H CBC/BMP Laboratory Tests 10/07/20 20:49 10/08/20 03:14 OSCAR MCKEON MD Oct 08, 2020 10:46
--- NOTE | 2020-10-08 10:57 | ECGEPIP ---
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
[2020-10-08] MEDS ORDERED: ENOXAPARIN 80MG/0.8ML SYRINGE (J1650 PER 10MG) SC SCH (16:00)
[2020-10-08] MEDS: METOPROLOL TART 25 MG TABLET PO SCH (20:54)
[2020-10-08 22:48] LABS: CALCIUM LEVEL 8.7 MG/DL (8.8-10.2); CREATININE FOR GFR 1.28 MG/DL (0.55-1.30); GLOMERULAR FILTRATION RATE 43.5 (>39); POTASSIUM SERUM 4.5 MEQ/L (3.5-5.1)
[2020-10-08 22:54] LABS: HEMOGLOBIN A1c 6.8 %
[2020-10-09] VITALS: BP 142/67
[2020-10-09 04:00] VITALS: BP 111/54
[2020-10-09 04:33] LABS: HEMATOCRIT 36.6 % (36.0-47.0); HEMOGLOBIN 11.8 g/dl (12.0-15.5); MEAN CORPUSCULAR HEMOGLOBIN 29.8 pg (27.0-33.0); MEAN CORPUSCULAR HGB CONC 32.2 g/dl (32.0-36.5); MEAN CORPUSCULAR VOLUME 92.4 fl (80.0-96.0); PLATELET COUNT, AUTOMATED 224 10^3/uL (150-450); RED BLOOD COUNT 3.96 10^6/uL (4.00-5.40); WHITE BLOOD COUNT 11.1 10^3/uL (4.0-10.0)
[2020-10-09] MEDS: AUGMENTIN 500 MG TAB PO SCH ×3 (04:53→22:00)
[2020-10-09 04:54] LABS: CALCIUM LEVEL 7.8 MG/DL (8.8-10.2); CREATININE FOR GFR 1.37 MG/DL (0.55-1.30); GLOMERULAR FILTRATION RATE 40.2 (>39); POTASSIUM SERUM 3.8 MEQ/L (3.5-5.1)
[2020-10-09] MEDS: HumaLOG INSULIN (NovoLOG) PER UNIT SC SCH ×4 (07:30→22:01)
[2020-10-09 08:00] VITALS: BP 115/59
[2020-10-09] MEDS: LOSARTAN 25 MG TAB PO SCH (09:00)
[2020-10-09] MEDS: LEVEMIR (INSULIN DETEMIR) 1 UNITS/0.01ML SC SCH (09:00)
[2020-10-09] MEDS: FOLIC ACID 1 MG TAB PO SCH (09:00)
[2020-10-09] MEDS: LEVOTHYROXINE 150MCG TABLET (0.15MG) PO SCH (09:32)
[2020-10-09] MEDS: OMEPRAZOLE 20 MG CAP PO SCH (09:32)
[2020-10-09] MEDS: METOPROLOL TART 25 MG TABLET PO SCH (09:33)
--- NOTE | 2020-10-09 10:45 | IPNPDOC ---
Subjective Date Seen The patient was seen on 10/09/20. Subjective Chief Complaint/HPI No complaints this morning. Patient converted to sinus rhythm last night. Objective Physical Examination General Exam: Positive: Alert, Cooperative, No Acute Distress Eye Exam: Positive: Conjunctiva & lids normal, EOMI ENT Exam: Positive: Atraumatic, Mucous membr. moist/pink, Pharynx Normal Neck Exam: Positive: Supple Chest Exam: Positive: Clear to auscultation, Normal air movement Heart Exam: Positive: Bradycardic, Regular Rhythm, Normal S1, Normal S2 Telemetry: Positive: Other Telemetry: Abdomen Exam: Positive: Normal bowel sounds, Soft Extremity Exam: Negative: Clubbing, Cyanosis, Edema Assessment /Plan Assessment is a 75 yr old with PMH of persistent Atrial fibrillation s/p ablation in 2014 and Cardioversion in September of 2020, IDDM, Essential HTN, Chronic HFpEF, DLP, Amiodarone induced pulmonary fibrosis, Hypothyroidism, DEVEN on CPAP, CKD 3, Gastroparesis, GERD, Macular degeneration, History of follicular non-Hodgkin's lymphoma in remission, Chronic Asthma, Right parotidectomy, Left rotator cuff surgery, Tubal ligation, Bilateral cataract surgery, Cholecystectomy, Left vitreous hemorrhage 2013, resection of facial BCC, umbilical hernia repair, right total knee replacement was admitted for Afib with RVR. After multiple medictions she converted to Junctional rhythm at 46. She remains in junctional rhythm. Afib with RVR then converted to Junctional rhythm @44 for about 8 hours then converted to sinus rhythm. discussed with Dr Rios about pacemaker possibly today. Will keep NPO, hold insulin, hold diuretics. Digoxin stopped. Will continue metoprolol 75 mg bid. Essential HTN / Chronic HFpEF Furosemide, spironolactone, Losartan will hold all these for now. scheduled for echo next week. IDDM continue levemir and lispro. 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 c/w MTX & Folic Acid Sinusitis c/w Augmentin Class 1 Obesity Complicates care Plan/VTE VTE Prophylaxis Ordered?: Yes VS, I&O, 24H, Fishbone Vital Signs/I&O Vital Signs Date Time Temp Pulse Resp B/P (MAP) Pulse Ox O2 Delivery O2 Flow Rate FiO2 10/09/20 09:33 93 115/59 10/09/20 08:00 98.2 18 98 Room Air I&O- Last 24 Hours up to 6 AM 10/09/20 05:59 Intake Total 1620 ml Output Total 500 ml Balance 1120 ml Laboratory Data 24H LABS Laboratory Tests 2 10/08/20 11:58: Bedside Glucose (Misc Panel) 151H 10/08/20 17:43: Bedside Glucose (Misc Panel) 105 10/08/20 20:59: Bedside Glucose (Misc Panel) 136H 10/09/20 04:16: Nucleated Red Blood Cells % (auto) 0.0, Anion Gap 4L, Glomerular Filtration Rate 40.2, Calcium Level 7.8L 10/09/20 07:56: Bedside Glucose (Misc Panel) 88 CBC/BMP Laboratory Tests 10/09/20 04:16 OSCAR MCKEON MD Oct 09, 2020 10:45
[2020-10-09] MEDS ORDERED: NS 1,000 ML IV SCH (11:00)
[2020-10-09] MEDS: ASCORBIC ACID 250 MG TAB PO SCH ×2 (11:12→21:59)
[2020-10-09] MEDS ORDERED: propofoL 200 MG/20 ML VIAL As Ordered ONE ×3 (11:13→16:00)
[2020-10-09] MEDS ORDERED: fentaNYL 100 MCG/2 ML INJECTION (J3010) As Ordered ONE (11:14)
[2020-10-09 12:00] VITALS: BP 170/72
[2020-10-09] MEDS ORDERED: ceFAZolin SOD 2 GM in IV 1 EA IV ONE (12:00)
--- NOTE | 2020-10-09 13:28 | IPN ---
CARDIOLOGY PROGRESS NOTE DATE: 10/09/2020 TIME: 11:10 a.m. 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 Shantal Kulkarni. Dr. Rios providing a weekend cardiology coverage for Dr. Kulkarni and Dr. Hinds. I was contacted by the patient's attending physician today, Dr. Emmanuelle Betancourt that the patient was having ongoing issues with sick sinus syndrome/tachycardia-bradycardia syndrome. I was asked to consider implantation of a permanent dual-chamber pacemaker. The patient is known to have sick sinus syndrome/ tachycardia-bradycardia syndrome and has persistent atrial fibrillation with rapid ventricular response. She had a previous radiofrequency ablation of atrial fibrillation a few years ago. She was recently hospitalized 09/22/2020 following development of severe bradyarrhythmia following elective direct current cardioversion. She was hospitalized again on this occasion, 10/08/2020 with atrial fibrillation with rapid ventricular response and following conversion out of atrial fibrillation, she had developed severe junctional bradycardia, 43 BPM. The patient's past history is significant for non-Hodgkin's lymphoma. She has had two prior Cqjgnq-e-Dfjij over the left pectoral region (one of them got infected). Prior chemotherapy. She has insulin dependent diabetes, obesity, chronic kidney disease, amiodarone pulmonary fibrosis, systemic hypertension, chronic diastolic heart failure, hyperlipidemia, asthma, hypothyroidism, obstructive sleep apnea (on CPAP) and GERD. At the moment, she is not symptomatic with any dyspnea with activity in her room, no orthopnea or PND, no leg or ankle swelling. No chest pain or chest discomfort with or without activity. No presyncope or syncope. No palpitations today. No claudication. At present, she is in sinus rhythm on the bedside heart rhythm monitor. PHYSICAL EXAMINATION: A pleasant elderly woman who appears her chronological age who is not in any respiratory or psychologic distress. Mood and affect were normal. Oriented to person, place and time. Obese. BP 115/59, heart rate 93 (sinus rhythm), temperature 98.2, respiratory rate of 18, O2 saturation 98% on room air. Jugular venous pulsations were at 3 cm. First and second heart sounds normal. No S3, S4. Grade 2 systolic ejection murmur over the right second interspace without radiation to the carotids. Respiratory expansion effort was good. No crackles or wheezes. Two small incisions from prior Gnwwsf-z-Thhig were present over the left pectoral region. Abdomen was soft, nontender, with normal bowel sounds. Abdominal obesity. No lower extremity edema. ECG 10/08/2020 at 4:22 a.m. shows junctional bradycardia, 43 BPM, LVH by voltages, nonspecific ST-T abnormalities, consider digoxin effect. Poor R wave progression. Leftward axis. Laboratory work, 10/09/2020 was reviewed: WBC 11.1, hemoglobin 11.8, hematocrit 36.6, platelets 224. Sodium 143, potassium 3.8, chloride 112, CO2 27, BUN 26, creatinine 1.37, estimated GFR 40.2, glucose 92, calcium 7.8. Laboratory work, 10/08/2020 showed NT-proBNP 2476. I have independently visualized the patient's AP chest x-ray (sitting) acquired 10/08/2020 at 6:41 a.m. Probable cardiomegaly despite the portable technique. No pulmonary vascular redistribution. No pleural effusions. Enlarged pulmonary arteries. ASSESSMENT AND RECOMMENDATIONS: 1. Sick sinus syndrome/tachycardia-bradycardia syndrome. This patient meets criteria for implantation of a permanent dual-chamber pacemaker. This was explained to the patient including the option of no pacemaker (ongoing difficulty with tachycardia-bradycardia syndrome). Risks of pacemaker implantation were explained to the patient as listed on the consent form including, but not all inclusive, infection (1-2%), pneumothorax (1%), bleeding, poor wound healing, adverse drug reaction, cardiac arrhythmias, lead dislodgment, and cardiac perforation with cardiac tamponade (06/999). I explained to her that her risk of infection was higher due to presence of diabetes and use of methotrexate. I explained that her risk of bleeding was higher due to recent use of Eliquis (last dose was yesterday morning). The patient signed the consent form. The plan will be to proceed to proceed to the operating room later today when the OR becomes available. 2. Persistent atrial fibrillation. The plan will be to restart Eliquis once the patient has had the permanent pacemaker placed. Beta zuly can be resumed following placement of a permanent pacemaker. 3. Systemic hypertension. Presently controlled. Will continue to follow blood pressure trends and adjust medications as needed. 4. Diastolic heart failure (chronic). Currently compensated. At some point the patient can be considered for restarting an ARB and a mineralocorticoid receptor antagonist. Beta zuly can be used safely once the patient has a permanent pacemaker. MTDD
[2020-10-09] MEDS ORDERED: ISOVUE-300 61% 50ML VIAL As Ordered ONE (14:00)
[2020-10-09] MEDS ORDERED: MUPIROCIN 2% OINT 22 GM TUBE As Ordered ONE (14:00)
[2020-10-09] MEDS ORDERED: LIDOCAINE 1% SDV 30ML VIAL As Ordered ONE (14:00)
[2020-10-09] MEDS ORDERED: ePHEDrine SULFATE 25 MG/5 ML(5MG/ML) SYRINGE As Ordered ONE (14:50)
[2020-10-09] MEDS ORDERED: PHENYLephrine 500MCG 5ML (100MCG/ML) SYRINGE As Ordered ONE (14:50)
--- NOTE | 2020-10-09 17:08 | REP ---
INDICATION: POST OP IN PACU. COMPARISON: Multiple the latest yesterday TECHNIQUE: Portable FINDINGS: The technique utilized in obtaining the radiograph has magnified the cardiac silhouette and attenuated the interstitial markings. Since the last examination a dual chamber bipolar pacemaker device has been placed the leads are contiguous and appear appropriate. Chronic interstitial changes are seen throughout the lung medina status quo. No acute patchy parenchymal opacities or pleural effusions have developed. There is no change in the osseous structures. IMPRESSION: Findings as described above. There is no evidence of acute cardiopulmonary disease. <Electronically signed by Hiren Dwyer > 10/09/20 [id number]
[2020-10-09] MEDS ORDERED: bisoproloL fumarate 5 MG TAB PO STA (17:09)
--- NOTE | 2020-10-09 17:09 | REP ---
INDICATION: DUAL CHAMBER PACEMAKER INSERTION. COMPARISON: None TECHNIQUE: 9 minutes and 42 seconds of fluoroscopy time was provided for the procedure. FINDINGS: Single spot view of the chest obtained using a portable C-arm device in my [place] shows a dual chamber bipolar pacemaker device the leads of which appear appropriate. IMPRESSION: As above. Follow-up with plain chest radiography is suggested. <Electronically signed by Hiren Dwyer > 10/09/20 [id number]
[2020-10-09] MEDS ORDERED: ONDANSETRON 4MG/2ML VIAL IV PRN (17:15)
[2020-10-09 17:39] VITALS: BP 144/84
--- NOTE | 2020-10-09 17:54 | RO ---
OPERATIVE NOTE DATE OF OPERATION: 10/09/2020 PREOPERATIVE DIAGNOSIS: Sick sinus syndrome/tachycardia-bradycardia syndrome. POSTOPERATIVE DIAGNOSIS: Sick sinus syndrome/tachycardia-bradycardia syndrome. FINDINGS: Sick sinus syndrome/tachycardia-bradycardia syndrome. PROCEDURE PERFORMED: Implantation of a Medtronic dual-chamber pacemaker. SURGEON: Reilly Rios M.D. TIP BANDING MACHINE OPERATOR: None. ANESTHESIA: Lidocaine 1% local/monitored anesthetic care. SPECIMENS: None. ESTIMATED BLOOD LOSS: 10 mL. BLOOD PRODUCTS REPLACED: None. DRAINS: None. COMPLICATIONS: None. PROCEDURE DESCRIPTION: The patient was prepped and draped over the left anterior chest. 3M Ioban film was applied. Lidocaine 1% was used for local anesthetic. A total of three left subclavian venograms were performed via left upper extremity peripheral vein which were used in real time for access to the left subclavian vein by percutaneous technique and real time. All three venograms were performed using 20 mL each of a mixture consisting of 50 mL Isovue and 10 mL of normal saline. The first two venograms were performed percutaneously and were not successful at localizing the left subclavian vein. The third and last venogram was performed at the level of the pectoral muscle and was successful at getting into the left subclavian vein. An incision approximately 2-1/2 inches in length was made with a PlasmaBlade approximately parallel to the left clavicle at the level of the left subclavian/left axillary vein. I dissected through the fatty layer and the fibers of Lilia's fascia down to the level of the prepectoral fascia using a PEEK PlasmaBlade. The pacemaker pocket was formed using blunt dissection using two fingers to separate the prepectoral fascia from the Lilia's fascia in a caudal direction. I used a sheer guidewire technique after exchanging of the micropuncture needle guidewire. First, a 7 [place] Islander sheath was used to gain vein access for the right ventricular lead. The right ventricular lead was placed under fluoroscopic guidance into position of the right ventricular apex where it was secured with a total of ten turns. The position was found to be electrically and anatomically satisfactory and without diaphragmatic stimulation palpable at high output pacing on either side. Next, the 7 [place] Islander sheath was peeled apart and removed. The other 7 [place] sheath with introducer was placed over the other guidewire and advanced into the left subclavian vein and was used for vein access for the right atrial lead. The right atrial lead was placed under fluoroscopic positioning guidance into the right atrial appendage with the help of the preformed J-stylet where it was secured with a total of 10 turns. This position was found to be electrically and anatomically satisfactory. The sheath was then broken apart and removed. Next, both leads were secured to the pectoral muscle using the supplied tie-down sleeves with three individual sutures applied to each sleeve to secure it to the pectoral muscle for both leads. Next, a medium sized TYRX antimicrobial envelope was cut into four pieces and was placed into the pacemaker pocket. I then took another 0 Ethibond suture and placed it into the pectoral muscle to serve as the tie-down for the pacemaker pulse generator. Next, the terminal pins of the ventricular and atrial leads were plugged into their respective ports in the header of the pacemaker pulse generator and each one was secured by tightening the set screws with the hex screwdriver. A pull test was applied to each lead to demonstrate that they were secure. The pacemaker pulse generator was then placed into the pacemaker pocket with the excess lead material below. The pulse generator was then secured to the pectoral muscle with the previously placed 0 Ethibond suture. The deep layer was then closed using individual sutures consisting of 2-0 Vicryl. A few additional 3-0 Vicryl sutures were used to help approximate the more superficial layer. The skin was then closed using hunter. The patient tolerated the procedure well without any immediate complications. The pacemaker pulse generator implanted was a MedChiScan [place] XT DR JOSE Eubanks with model number W1DR01 with serial number [id number]. The right atrial lead implanted was a Medtronic model 4076-45 cm with serial number [id number]. Testing in bipolar configuration for the right atrial lead with the pulse analyzer showed a capture threshold of 0.75 volts at 0.4 milliseconds with lead impedance of 437 ohms and P wave amplitude of 1.75 millivolts. Device based testing for the right atrial lead showed P wave amplitude of 3 millivolts with lead impedance of 494 ohms and capture threshold of 0.5 volts and 0.4 milliseconds. The right ventricular lead implanted was a Medtronic model 4076-52 cm with serial number [id number]. Testing in the operating room in bipolar configuration for the right ventricular lead using the pulse analyzer showed a capture threshold of 0.75 volts at 0.4 milliseconds with lead impedance of 931 ohms and R wave amplitude of 6.8 millivolts. Device based testing for the right ventricular lead showed R wave amplitude of 19.3 millivolts with lead impedance of 817 ohms and capture threshold of 0.5 volts at 0.4 milliseconds. [facility]
[2020-10-09 20:00] VITALS: BP 147/68
[2020-10-09] MEDS ORDERED: APIXABAN 5 MG TAB (ELIQUIS) PO SCH (21:00)
[2020-10-09] MEDS: ATORVASTATIN 20 MG TAB PO SCH (22:00)
[2020-10-10] VITALS: BP 167/72
[2020-10-10] MEDS: ACETAMINOPHEN TAB 650MG DOSE (2X325MG) PO PRN ×2 (00:48→10:27)
[2020-10-10 04:00] VITALS: BP 143/65
[2020-10-10] MEDS: AUGMENTIN 500 MG TAB PO SCH ×2 (06:22→14:16)
[2020-10-10 08:00] VITALS: BP 147/67
[2020-10-10 08:08] LABS: BASO # 0.1 10^3/uL (0.0-0.2); BASO % 0.6 % (0.0-1.0); EOS # 0.5 10^3/uL (0.0-0.5); HEMATOCRIT 34.8 % (36.0-47.0); HEMOGLOBIN 11.3 g/dl (12.0-15.5); LYMPH # 2.7 10^3/uL (1.5-5.0); LYMPH % 34.7 % (24.0-44.0); MEAN CORPUSCULAR HEMOGLOBIN 29.9 pg (27.0-33.0); MEAN CORPUSCULAR HGB CONC 32.5 g/dl (32.0-36.5); MEAN CORPUSCULAR VOLUME 92.1 fl (80.0-96.0); MONO # 0.6 10^3/uL (0.0-0.8); MONO % 7.9 % (2.0-8.0); NEUTROPHILS # 3.8 10^3/uL (1.5-8.5); NEUTROPHILS % 49.4 % (36.0-66.0); PLATELET COUNT, AUTOMATED 225 10^3/uL (150-450); RED BLOOD COUNT 3.78 10^6/uL (4.00-5.40); WHITE BLOOD COUNT 7.7 10^3/uL (4.0-10.0)
[2020-10-10 08:41] LABS: BLOOD UREA NITROGEN 18 MG/DL (7-18); CALCIUM LEVEL 8.6 MG/DL (8.8-10.2); CARBON DIOXIDE LEVEL 25 MEQ/L (21-32); CHLORIDE LEVEL 113 MEQ/L (98-107); CREATININE FOR GFR 0.95 MG/DL (0.55-1.30); GLOMERULAR FILTRATION RATE > 60.0 (>39); GLUCOSE, FASTING 125 MG/DL (70-100); POTASSIUM SERUM 4.4 MEQ/L (3.5-5.1); SODIUM LEVEL 144 MEQ/L (136-145)
--- NOTE | 2020-10-10 08:53 | ECGEPIP ---
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
[2020-10-10] MEDS ORDERED: SPIRONOLACTONE 12.5MG PER 1/2 TABLET PO SCH (09:00)
[2020-10-10] MEDS: SPIRONOLACTONE 25 MG TAB PO SCH (09:00)
[2020-10-10] MEDS ORDERED: bisoproloL fumarate 10 MG TAB PO SCH (09:00)
[2020-10-10] MEDS ORDERED: CHLORTHALIDONE 12.5MG PER 1/2 TABLET PO SCH (09:00)
[2020-10-10] MEDS: HumaLOG INSULIN (NovoLOG) PER UNIT SC SCH ×2 (09:46→13:11)
[2020-10-10] MEDS: OMEPRAZOLE 20 MG CAP PO SCH (09:47)
[2020-10-10] MEDS: ASCORBIC ACID 250 MG TAB PO SCH (09:47)
[2020-10-10] MEDS: LEVOTHYROXINE 150MCG TABLET (0.15MG) PO SCH (09:47)
[2020-10-10] MEDS: FOLIC ACID 1 MG TAB PO SCH (09:47)
[2020-10-10] MEDS: LEVEMIR (INSULIN DETEMIR) 1 UNITS/0.01ML SC SCH (09:57)
--- NOTE | 2020-10-10 10:04 | REP ---
INDICATION: new pacemaker. COMPARISON: Yesterday TECHNIQUE: PA and lateral FINDINGS: The superior mediastinal structures are midline. The cardiac silhouette is unremarkable in size, shape, and position. The diaphragmatic surfaces of the lungs are regular, and the costophrenic angles are clear. Mild fibrotic changes are again seen throughout the lung medina with basilar predominance. No acute patchy parenchymal opacities or pleural effusions have developed. The dual chamber bipolar pacemaker device is stable. The imaged osseous structures are intact. IMPRESSION: There is no acute cardiopulmonary disease. <Electronically signed by Hiren Dwyer > 10/10/20 1000
[2020-10-10 12:00] VITALS: BP 167/63
[2020-10-10] MEDS ORDERED: CHLO125TA PO (13:38)
[2020-10-10] MEDS ORDERED: BISO10TA13 PO (13:38)
[2020-10-10] MEDS ORDERED: ASCO250T20 PO (13:38)
[2020-10-10] MEDS ORDERED: LOSARTAN 25 MG TAB PO ONE (14:00)
[2020-10-10 14:10] VITALS: BP 167/63
[2020-10-10] MEDS ORDERED: APIXABAN 5 MG TAB (ELIQUIS) PO SCH (21:00)
[2020-10-11] MEDS ORDERED: LOSARTAN 25 MG TAB PO SCH (09:00)
[2020-10-11] MEDS ORDERED: SPIRONOLACTONE 12.5MG PER 1/2 TABLET PO SCH (09:00)
--- NOTE | 2020-10-11 12:45 | DS.PDOC ---
Discharge Summary General Date of Admission Oct 08, 2020 at 00:02 Date of Discharge 10/10/20 Discharge Summary PROCEDURES PERFORMED DURING STAY: Dual Chamber pacemaker placement on 10/09/20 DISCHARGE DIAGNOSES: Sick sinus syndrome/tachycardia-bradycardia syndrome s/p placement of PPM Afib with RVR SECONDARY DIAGNOSIS: Atrial fibrillation s/p ablation in 2014 and Cardioversion in September of 2020, IDDM, Essential HTN, Chronic HFpEF, DLP, Amiodarone induced pulmonary fibrosis, Hypothyroidism, DEVEN on CPAP, CKD 3, Gastroparesis, GERD, Macular degeneration, History of follicular non-Hodgkin's lymphoma in remission, Chronic Asthma, Right parotidectomy, Left rotator cuff surgery, Tubal ligation, Bilateral cataract surgery, Cholecystectomy, Left vitreous hemorrhage 2013, resection of facial BCC, umbilical hernia repair, right total knee replacement COMPLICATIONS/CHIEF COMPLAINT: Atrial Fibrillation W Rvr. HOSPITAL COURSE: is a 75 yr old with PMH of persistent Atrial fibrillation s/p ablation in 2014 and Cardioversion in September of 2020, IDDM, Es sential HTN, Chronic HFpEF, DLP, Amiodarone induced pulmonary fibrosis, Hypothyroidism, DEVEN on CPAP, CKD 3, Gastroparesis, GERD, Macular degeneration, History of follicular non-Hodgkin's lymphoma in remission, Chronic Asthma, Right parotidectomy, Left rotator cuff surgery, Tubal ligation, Bilateral cataract surgery, Cholecystectomy, Left vitreous hemorrhage 2013, resection of facial BCC, umbilical hernia repair, right total knee replacement was admitted for Afib with RVR. After multiple mediations she converted to Junctional rhythm at 46. She was diagnosed with Tachy- dhaval syndrome. Cardiology recommended permanent pacemaker placement. Patient had PPM placement on 10/09/20. Sick sinus syndrome/ Tachy - dhaval syndrome s/p PPM. follow up with Dr Rios in 1 week for staple removal Follow up with Dr Kulkarni in 1 month for pacemaker check Afib with RVR/ sick sinus syndrome s/p PPM digoxin and metoprolol stopped started on bisoprolol 10 mg daily Lasix stopped as the Patient was hypovolemic started on HCTZ and continued on spironolactone. Essential HTN / Chronic HFpEF had mild elevation in BUN and Creatinine due to intravascular depletion so lasix was stopped. continue losartan, bisoprolol spironolactone and HCTZ. IDDM continue levemir and lispro, trulicity and other home meds dose of levemir reduced from 150 to 120 untis. 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 ALLERGIES: Please see below. PHYSICAL EXAMINATION ON DISCHARGE: VITAL SIGNS: Please see below. General Exam: Positive: Alert, Cooperative, No Acute Distress Eye Exam: Positive: Conjunctiva & lids normal, EOMI ENT Exam: Positive: Atraumatic, Mucous membr. moist/pink, Pharynx Normal Neck Exam: Positive: Supple Chest Exam: Positive: Clear to auscultation, Normal air movement Heart Exam: Positive: Bradycardic, Regular Rhythm, Normal S1, Normal S2 Telemetry: Positive: Other Telemetry: Abdomen Exam: Positive: Normal bowel sounds, Soft Extremity Exam: Negative: Clubbing, Cyanosis, Edema LABORATORY DATA: Please see below. ACTIVITY: [As tolerated]. DIET: Carb consistent DISPOSITION: 01 Home, Self-Care. DISCHARGE INSTRUCTIONS: Follow up in Dr Rios's office in 1 week for staple removal Pacemaker check with Dr Kulkarni in 1 month PMD in 2 weeks ITEMS TO FOLLOWUP ON ON OUTPATIENT: Follow Dr Rios's instructions regarding wound care. DISCHARGE CONDITION: [Stable]. TIME SPENT ON DISCHARGE: 35 minutes. Vital Signs/I&Os Vital Signs Date Time Temp Pulse Resp B/P (MAP) Pulse Ox O2 Delivery O2 Flow Rate FiO2 10/10/20 14:10 167/63 10/10/20 12:00 97.9 86 18 95 Room Air 10/10/20 04:00 2.0 I&O- Last 24 Hours up to 6 AM 10/11/20 05:59 Intake Total 0 ml Balance 0 ml Discharge Medications Scheduled Amoxicillin/Potassium Clav (Augmentin 500-125 Tablet) 1 Each Tablet, 500 MG PO Q8H, (Reported) FOR 10 DAYS: STARTED ON 10/06/20 Apixaban (Eliquis) 5 Mg Tab, 5 MG PO BID, (Reported) Ascorbic Acid (Vitamin C) 250 Mg Tablet, 250 MG PO BID Atorvastatin Calcium (Atorvastatin Calcium) 80 Mg Tablet, 80 MG PO QHS, (Reported) Bisoprolol Fumarate (Bisoprolol Fumarate) 10 Mg Tablet, 10 MG PO DAILY Chlorthalidone (Chlorthalidone) 25 Mg Tablet, 12.5 MG PO DAILY Cyclosporine (Restasis) 0.05% Droperette, 1 DROP OD BID, (Reported) Dulaglutide (Trulicity) 0.75 Mg/0.5 Ml Pen.injctr, 0.75 MG SC QWEEK, (Reported) [place] Folic Acid (Folic Acid) 1 Mg Tablet, 1 MG PO DAILY, (Reported) Glipizide (Glipizide) 10 Mg Tablet, 10 MG PO BID, (Reported) Insulin Glargine,Hum.rec.anlog (Toujeo Solostar) 300 Unit/1 Ml Insuln.pen, 150 UNIT SC DAILY, (Reported) Insulin Human Lispro (Humalog) 1 Units/0.01 Ml Inj, 1 DOSE SC ACHS, (Reported) PER SLIDING SCALE Levothyroxine Sodium (Synthroid) 150 Mcg Tablet, 150 MCG PO DAILY, (Reported) Losartan Potassium (Losartan Potassium) 25 Mg Tablet, 25 MG PO DAILY, (Reported) Methotrexate Sodium (Methotrexate) 2.5 Mg Tablet, 10 MG PO QWEEK, (Reported) FRIDAYS Mineral Oil/Petrolatum,White (Refresh P.m. Ointment) 3.5 Gm Oint...g., 1 DOSE OU QHS, (Reported) Omeprazole (Omeprazole) 40 Mg Cap, 40 MG PO DAILY, (Reported) Spironolactone (Spironolactone) 25 Mg Tablet, 12.5 MG PO DAILY, (Reported) Scheduled PRN Carboxymethylcellulose Sodium (Refresh Tears) 15 Ml Drops, 1 DROP OU TID PRN for DRY EYES, (Reported) Fluticasone Propionate (Flonase Allergy Relief) 9.9 Ml [place].susp, 1 SPRAY NA DAILY PRN for NASAL CONGESTION, (Reported) Allergies Coded Allergies: erythromycin base (Verified Allergy, Intermediate, rash, 04/28/19) sitagliptin (Verified Allergy, Intermediate, Rash, 04/28/19) amiodarone (Verified Adverse Reaction, Intermediate, Lung Issues, 04/18/19) latex (Verified Adverse Reaction, Mild, Risk, 04/18/19) lisinopril (Verified Adverse Reaction, Mild, cough, 04/18/19) OSCAR MCKEON MD Oct 11, 2020 12:45
== END 2020-10-10 15:45 | disposition home or self-care (01) | DRG 243 ==
LOC: M ED 20:08 → M ED INP 10-08 00:02 → ENRESERV 10-08 03:19 → M ICU 10-08 04:38 → M PCU 10-09 14:24
PROVIDERS: ADMIT Internal Medicine; ATTEND Internal Medicine
PROC: 02HK3JZ Insertion of Pacemaker Lead into Right Ventricle, Percutaneous Approach (ICD-10-PCS; 2020-10-09)
PROC: 02H63JZ Insertion of Pacemaker Lead into Right Atrium, Percutaneous Approach (ICD-10-PCS; 2020-10-09)
PROC: 0JH606Z Insertion of Pacemaker, Dual Chamber into Chest Subcutaneous Tissue and Fascia, Open Approach (ICD-10-PCS; principal; 2020-10-09 12:00)
DX: I49.5 Sick sinus syndrome (principal); I48.11 Longstanding persistent atrial fibrillation; I50.32 Chronic diastolic (congestive) heart failure; I13.0 Hypertensive heart and chronic kidney disease with heart failure and stage 1 through stage 4 chronic kidney disease, or unspecified chronic kidney disease; E11.9 Type 2 diabetes mellitus without complications; E78.5 Hyperlipidemia, unspecified; J84.10 Pulmonary fibrosis, unspecified; E03.9 Hypothyroidism, unspecified; G47.33 Obstructive sleep apnea (adult) (pediatric); N18.30 Chronic kidney disease, stage 3 unspecified; K31.84 Gastroparesis; K21.9 Gastro-esophageal reflux disease without esophagitis; H35.30 Unspecified macular degeneration; J44.9 Chronic obstructive pulmonary disease, unspecified; Z98.41 Cataract extraction status, right eye; Z98.42 Cataract extraction status, left eye; Z90.49 Acquired absence of other specified parts of digestive tract; Z96.651 Presence of right artificial knee joint; E66.9 Obesity, unspecified; Z79.01 Long term (current) use of anticoagulants; Z79.4 Long term (current) use of insulin; Z79.899 Other long term (current) drug therapy; Z88.2 Allergy status to sulfonamides; Z88.8 Allergy status to other drugs, medicaments and biological substances; Z91.040 Latex allergy status; Z20.822 Contact with and (suspected) exposure to COVID-19; R00.1 Bradycardia, unspecified; Z68.33 Body mass index [BMI] 33.0-33.9, adult

== ENCOUNTER → 2020-10-18 | Outpatient (CLI) | payer MEDICARE ==
[~2020-10-18] MED LIST changes: +AMOX500T2; +ASCO250T20 PO; +BISO10TA13 PO; +CHLO125TA PO; +REFROIN OU
== END ==
LOC: M PLALAB 12:49
PROVIDERS: ATTEND Physician Assistant
DX: I48.0 Paroxysmal atrial fibrillation (principal)

== ENCOUNTER 2020-12-09 19:24 | Emergency (ER) | payer MEDICARE ==
[~2020-12-09] VITALS: Ht 154.9 cm; Wt 81.3 kg
[2020-12-09 20:19] LABS: BASO # 0.1 10^3/uL (0.0-0.2); BASO % 0.5 % (0.0-1.0); EOS # 0.4 10^3/uL (0.0-0.5); EOS % 3.2 % (0.0-3.0); HEMATOCRIT 36.7 % (36.0-47.0); LYMPH # 4.1 10^3/uL (1.5-5.0); LYMPH % 38.1 % (24.0-44.0); MEAN CORPUSCULAR HEMOGLOBIN 30.1 pg (27.0-33.0); MEAN CORPUSCULAR HGB CONC 32.7 g/dl (32.0-36.5); MONO # 0.8 10^3/uL (0.0-0.8); MONO % 7.8 % (2.0-8.0); NEUTROPHILS # 5.4 10^3/uL (1.5-8.5); NEUTROPHILS % 49.6 % (36.0-66.0); PLATELET COUNT, AUTOMATED 228 10^3/uL (150-450); RED BLOOD COUNT 3.99 10^6/uL (4.00-5.40); WHITE BLOOD COUNT 10.8 10^3/uL (4.0-10.0)
[2020-12-09 20:51] LABS: RSV AMPLIFICATION NEGATIVE (NEGATIVE)
--- NOTE | 2020-12-09 21:03 | REPVR ---
PROCEDURE INFORMATION: Exam: XR Chest Exam date and time: 12/09/2020 8:46 PM Age: 75 years old Clinical indication: Dyspnea; Additional info: Dyspnea/cough TECHNIQUE: Imaging protocol: XR of the chest. Views: 1 view. COMPARISON: RI Chest, 1 view 10/09/2020 4:47 PM FINDINGS: Tubes, catheters and devices: Dual chamber cardiac pacer demonstrated with intact pacer wires. Lungs: Small patchy infiltrate in the peripheral aspect of the right lower lobe. Remaining lungs grossly clear. Pleural spaces: Unremarkable. No pleural effusion. No pneumothorax. Heart/Mediastinum: Unremarkable. No cardiomegaly. Bones/joints: Unremarkable. IMPRESSION: Small patchy infiltrate in the peripheral aspect of the right lower lobe. Electronically signed by: Brigido Grove On 12/09/2020 21:02:47 PM
[2020-12-09 21:06] LABS: ALT/SGPT 75 U/L (12-78); BILIRUBIN,DIRECT 0.1 MG/DL (0.0-0.2); BILIRUBIN,TOTAL 0.6 MG/DL (0.2-1.0); BLOOD UREA NITROGEN 28 MG/DL (7-18); CALCIUM LEVEL 8.4 MG/DL (8.8-10.2); CARBON DIOXIDE LEVEL 27 MEQ/L (21-32); CHLORIDE LEVEL 109 MEQ/L (98-107); CK-MB VALUE MASS 1.4 NG/ML (<3.6); CPK CREATINE PHOSPHOKINASE 101 U/L (26-192); CREATININE FOR GFR 1.41 MG/DL (0.55-1.30); DIGOXIN LEVEL 1.3 NG/ML (0.5-2.0); GLOMERULAR FILTRATION RATE 38.9 (>39); GLUCOSE, FASTING 198 MG/DL (70-100); MB/CK RELATIVE INDEX 1.39 (< OR =4); POTASSIUM SERUM 4.4 MEQ/L (3.5-5.1); SODIUM LEVEL 140 MEQ/L (136-145); TOTAL PROTEIN 5.5 GM/DL (6.4-8.2); TROPONIN I < 0.02 NG/ML (< 0.10)
[2020-12-09] MEDS ORDERED: NS 1,000 ML IV ONE (21:50)
[2020-12-09 22:56] VITALS: BP 142/68
--- NOTE | 2020-12-10 09:13 | ED PDOC ---
Post-Departure Follow-Up dr cary faxed formal report of cxr for Rylee Del Real MD Dec 10, 2020 09:13
--- NOTE | 2020-12-10 10:17 | ECGEPIP ---
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
== END 2020-12-09 22:55 | disposition home or self-care (01) ==
LOC: M ED 19:24
DX: N17.9 Acute kidney failure, unspecified (principal); I48.91 Unspecified atrial fibrillation; Z95.0 Presence of cardiac pacemaker; R91.8 Other nonspecific abnormal finding of lung field; I11.0 Hypertensive heart disease with heart failure; E11.9 Type 2 diabetes mellitus without complications; E03.9 Hypothyroidism, unspecified; Z79.01 Long term (current) use of anticoagulants; Z79.899 Other long term (current) drug therapy; Z79.4 Long term (current) use of insulin; Z88.8 Allergy status to other drugs, medicaments and biological substances

== ENCOUNTER → 2020-12-20 | Outpatient (CLI) | payer MEDICARE ==
[2020-12-20 14:22] LABS: BASO # 0.1 10^3/uL (0.0-0.2); BASO % 0.7 % (0.0-1.0); EOS # 0.2 10^3/uL (0.0-0.5); EOS % 1.9 % (0.0-3.0); HEMATOCRIT 39.8 % (36.0-47.0); HEMOGLOBIN 12.9 g/dl (12.0-15.5); LYMPH # 3.5 10^3/uL (1.5-5.0); LYMPH % 30.7 % (24.0-44.0); MEAN CORPUSCULAR HEMOGLOBIN 29.9 pg (27.0-33.0); MEAN CORPUSCULAR HGB CONC 32.4 g/dl (32.0-36.5); MEAN CORPUSCULAR VOLUME 92.1 fl (80.0-96.0); MONO # 0.8 10^3/uL (0.0-0.8); MONO % 6.9 % (2.0-8.0); NEUTROPHILS # 6.7 10^3/uL (1.5-8.5); NEUTROPHILS % 59.3 % (36.0-66.0); PLATELET COUNT, AUTOMATED 260 10^3/uL (150-450); RED BLOOD COUNT 4.32 10^6/uL (4.00-5.40); WHITE BLOOD COUNT 11.4 10^3/uL (4.0-10.0)
[2020-12-20 15:04] LABS: ERYTHROCYTE SEDIMENTATION RATE 11 mm/hr (0-30)
[2020-12-20 15:06] LABS: ALBUMIN 3.3 GM/DL (3.2-5.2); BILIRUBIN,TOTAL 0.8 MG/DL (0.2-1.0); C REACTIVE PROTEIN QUANTITATIV 0.3 MG/DL (0.00-0.30); CHOLESTEROL RISK RATIO 4.666 (<5); CREATININE FOR GFR 1.31 MG/DL (0.55-1.30); GLOMERULAR FILTRATION RATE 42.4 (>39); POTASSIUM SERUM 4.5 MEQ/L (3.5-5.1); TOTAL PROTEIN 5.7 GM/DL (6.4-8.2)
== END ==
LOC: M PLALAB 12:12
PROVIDERS: ATTEND Family Medicine
DX: E78.2 Mixed hyperlipidemia (principal); H16.001 Unspecified corneal ulcer, right eye

== ENCOUNTER 2021-01-03 16:12 | Emergency (ER) | payer MEDICARE ==
[~2021-01-03] VITALS: Ht 154.9 cm; Wt 80.2 kg
[~2021-01-03 16:12] MED LIST changes: -DILT120C89 PO; -LEVO137T2 PO
[2021-01-03] MEDS ORDERED: LEVO137T2 PO (16:49)
[2021-01-03] MEDS ORDERED: DILT120C89 PO (16:49)
[2021-01-03 17:03] LABS: BASO % 0.8 % (0.0-1.0); EOS % 2.5 % (0.0-3.0); HEMOGLOBIN 12.7 g/dl (12.0-15.5); LYMPH # 3.3 10^3/uL (1.5-5.0); LYMPH % 32.1 % (24.0-44.0); MEAN CORPUSCULAR HEMOGLOBIN 30.2 pg (27.0-33.0); MEAN CORPUSCULAR HGB CONC 33.4 g/dl (32.0-36.5); MEAN CORPUSCULAR VOLUME 90.3 fl (80.0-96.0); MONO # 0.7 10^3/uL (0.0-0.8); MONO % 6.8 % (2.0-8.0); NEUTROPHILS # 5.9 10^3/uL (1.5-8.5); NEUTROPHILS % 57.2 % (36.0-66.0); PLATELET COUNT, AUTOMATED 242 10^3/uL (150-450); RED BLOOD COUNT 4.21 10^6/uL (4.00-5.40); WHITE BLOOD COUNT 10.3 10^3/uL (4.0-10.0)
[2021-01-03 17:04] LABS: BASO # 0.1 10^3/uL (0.0-0.2); EOS # 0.3 10^3/uL (0.0-0.5)
[2021-01-03 17:36] LABS: ALBUMIN 3.4 GM/DL (3.2-5.2); ALT/SGPT 86 U/L (12-78); BILIRUBIN,DIRECT 0.2 MG/DL (0.0-0.2); BILIRUBIN,TOTAL 0.7 MG/DL (0.2-1.0); BLOOD UREA NITROGEN 23 MG/DL (7-18); CALCIUM LEVEL 8.8 MG/DL (8.8-10.2); CARBON DIOXIDE LEVEL 25 MEQ/L (21-32); CHLORIDE LEVEL 106 MEQ/L (98-107); CPK CREATINE PHOSPHOKINASE 107 U/L (26-192); CREATININE FOR GFR 1.29 MG/DL (0.55-1.30); GLOMERULAR FILTRATION RATE 43.1 (>39); GLUCOSE, FASTING 312 MG/DL (70-100); LIPASE 147 U/L (73-393); MB/CK RELATIVE INDEX 1.87 (< OR =4); NT-PRO BNP 1064 PG/ML (<125); POTASSIUM SERUM 4.3 MEQ/L (3.5-5.1); SODIUM LEVEL 140 MEQ/L (136-145); TOTAL PROTEIN 5.9 GM/DL (6.4-8.2); TROPONIN I < 0.02 NG/ML (< 0.10)
--- NOTE | 2021-01-03 19:51 | ECGEPIP ---
[facility] - ED Test Date: 2021-01-03 Pat Name: LISA DIAMOND Department: Room: - Gender: Female Paper Baler: MICHELLE : 1945 Requested By: REHAN AVINA Order Number: [id number] Reading MD: Rylee Wilson Measurements Intervals [place] Rate: 71 P: DC: 180 QRS: -79 QRSD: 160 T: 64 QT: 462 QTc: 502 Interpretive Statements AV dual-paced rhythm Nonspecific ST T wave changes cw 12/09/[address] T wave changes Electronically Signed on 01-03-2021 19:51:06 EDT by Rylee Wilson
[2021-01-03 22:22] LABS: CK-MB VALUE MASS 1.8 NG/ML (<3.6); CPK CREATINE PHOSPHOKINASE 89 U/L (26-192); MB/CK RELATIVE INDEX 2.02 (< OR =4); TROPONIN I < 0.02 NG/ML (< 0.10)
[2021-01-03 22:40] VITALS: BP 184/80
--- NOTE | 2021-01-05 18:48 | ECGEPIP ---
[facility] - ED Test Date: 2021-01-03 Pat Name: LISA DIAMOND Department: Room: - Gender: Female Rags Laborer: HAYDEN : 1945 Requested By: REHAN AVINA Order Number: [id number] Reading MD: Jo Figueroa Measurements Intervals [place] Rate: 71 P: ID: 290 QRS: -20 QRSD: 96 T: 139 QT: 376 QTc: 408 Interpretive Statements Atrial-paced rhythm with prolonged AV conduction Left ventricular hypertrophy with repolarization abnormality ( R in aVL , [place] product ) NSTTW abnormalities Electronically Signed on 01-05-2021 18:48:29 EDT by Jo Figueroa
== END 2021-01-03 22:55 | disposition home or self-care (01) ==
LOC: M ED 16:12
DX: R06.00 Dyspnea, unspecified (principal); R07.89 Other chest pain; C85.80 Other specified types of non-Hodgkin lymphoma, unspecified site; I50.9 Heart failure, unspecified; I48.91 Unspecified atrial fibrillation; J45.909 Unspecified asthma, uncomplicated; K21.9 Gastro-esophageal reflux disease without esophagitis; Z95.0 Presence of cardiac pacemaker; Z88.8 Allergy status to other drugs, medicaments and biological substances; Z91.040 Latex allergy status; Z79.01 Long term (current) use of anticoagulants; Z79.899 Other long term (current) drug therapy; Z79.4 Long term (current) use of insulin
CPT/HCPCS: 36415; 80048; 80076; 82550; 82553; 83690; 83880; 84443; 84484; 85025; 87040; 87426; 93005; 93041; 94760; 99285; G0463

== ENCOUNTER → 2021-01-03 | Outpatient (CLI) | payer MEDICARE ==
[~2021-01-03] MED LIST changes: +DILT120C89 PO; -KLOR10TA76 PO; -KLOR20TA42 PO; +LEVO137T2 PO; +POTA-136 PO; +POTA-141 PO; +TRUL0.5I SC
--- NOTE | 2021-01-03 13:58 | REP ---
INDICATION: COUGH. COMPARISON: Multiple latest 12/09/2020 a portable exam TECHNIQUE: PA and lateral FINDINGS: There is cardiomegaly status quo. The dual chamber bipolar pacemaker devices unchanged. Fibrotic changes are again seen throughout the lung [place] status quo. No acute patchy parenchymal opacities or pleural effusions have developed. The osseous structures are stable and intact. IMPRESSION: Stable appearing chronic changes without evidence of acute cardiopulmonary disease. <Electronically signed by Hiren Dwyer > 01/03/21 [id number]
[2021-01-03 15:46] LABS: BASO # 0.1 10^3/uL (0.0-0.2); BASO % 0.6 % (0.0-1.0); EOS # 0.3 10^3/uL (0.0-0.5); EOS % 2.8 % (0.0-3.0); HEMATOCRIT 39.7 % (36.0-47.0); HEMOGLOBIN 13.1 g/dl (12.0-15.5); LYMPH # 4.5 10^3/uL (1.5-5.0); LYMPH % 36.7 % (24.0-44.0); MEAN CORPUSCULAR HEMOGLOBIN 30.4 pg (27.0-33.0); MEAN CORPUSCULAR VOLUME 92.1 fl (80.0-96.0); MONO % 8.1 % (2.0-8.0); NEUTROPHILS # 6.3 10^3/uL (1.5-8.5); NEUTROPHILS % 51.3 % (36.0-66.0); PLATELET COUNT, AUTOMATED 263 10^3/uL (150-450); RED BLOOD COUNT 4.31 10^6/uL (4.00-5.40); WHITE BLOOD COUNT 12.2 10^3/uL (4.0-10.0)
[2021-01-03 15:59] LABS: CREATININE FOR GFR 1.2 MG/DL (0.55-1.30); GLOMERULAR FILTRATION RATE 46.9 (>39); POTASSIUM SERUM 4.4 MEQ/L (3.5-5.1)
== END ==
LOC: M PLALAB 13:04 → M PLAIMG 13:04
PROVIDERS: ATTEND Family Medicine
DX: R05 Cough (principal); I50.22 Chronic systolic (congestive) heart failure; Z95.0 Presence of cardiac pacemaker

== ENCOUNTER → 2021-01-24 | Outpatient (CLI) | payer MEDICARE ==
[~2021-01-24] MED LIST changes: +DILT120C89 PO; +LEVO137T2 PO
[2021-01-24 13:45] LABS: BASO # 0.1 10^3/uL (0.0-0.2); BASO % 0.7 % (0.0-1.0); EOS # 0.4 10^3/uL (0.0-0.5); EOS % 4.1 % (0.0-3.0); HEMATOCRIT 37.7 % (36.0-47.0); HEMOGLOBIN 12.2 g/dl (12.0-15.5); LYMPH # 3.1 10^3/uL (1.5-5.0); MEAN CORPUSCULAR HEMOGLOBIN 29.7 pg (27.0-33.0); MEAN CORPUSCULAR HGB CONC 32.4 g/dl (32.0-36.5); MEAN CORPUSCULAR VOLUME 91.7 fl (80.0-96.0); MONO # 0.8 10^3/uL (0.0-0.8); MONO % 7.1 % (2.0-8.0); NEUTROPHILS # 6.3 10^3/uL (1.5-8.5); NEUTROPHILS % 58.4 % (36.0-66.0); PLATELET COUNT, AUTOMATED 264 10^3/uL (150-450); RED BLOOD COUNT 4.11 10^6/uL (4.00-5.40); WHITE BLOOD COUNT 10.7 10^3/uL (4.0-10.0)
[2021-01-24 14:29] LABS: CALCIUM LEVEL 8.9 MG/DL (8.8-10.2); CREATININE FOR GFR 1.18 MG/DL (0.55-1.30); FREE T4 0.96 NG/DL (0.76-1.46); GLOMERULAR FILTRATION RATE 47.8 (>39); POTASSIUM SERUM 4.1 MEQ/L (3.5-5.1); THYROID STIMULATING HORMONE 0.935 uIU/ML (0.358-3.740)
== END ==
LOC: M PLALAB 10:53
PROVIDERS: ATTEND Internal Medicine Cardiovascular Disease
DX: I48.0 Paroxysmal atrial fibrillation (principal); E03.9 Hypothyroidism, unspecified

== ENCOUNTER → 2021-01-24 | Outpatient (CLI) | payer MEDICARE | LOC: M PLALAB 10:50 | PROVIDERS: ATTEND Family Medicine | DX: E03.9 Hypothyroidism, unspecified (principal) ==

== ENCOUNTER 2021-02-04 11:21 | Inpatient (IN) | payer MEDICARE ==
[~2021-02-04] VITALS: Ht 162.6 cm; Wt 71.6 kg
[~2021-02-04 11:21] MED LIST changes: +FLON1SPR NARES; -REST0.05 OD; +REST0.05 OU
--- OUTSIDE RECORDS SUMMARY | 2021-02-04 11:31 | CCD ---
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 Active confirmed 94656385 Problem Esophageal reflux K21.9 Active confirmed 23 1277412 Problem Mixed hyperlipidemia E78.2 Active confirmed 759492861 Problem Obstructive sleep apnea G47.33 Active confirmed 11599190 Problem Obesity, unspecified obesity severity, unspecified obe sity type E66.9 Active confirmed 192058408 Problem senior living (current) use of insulin Z79.4 Activ e confirmed 121469554 Problem 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.43 Active confirmed 620732272 Problem Gastroparesis K31.84 Active confirmed 034916 006 Problem Chronic systolic (congestive) heart failure I50.22 Active confirmed 850095634 Problem Visual loss H54.7 Active confirmed 34900186 3 Problem Chronic diastolic congestive heart failure I50.32 Active confirmed 276890854 Problem Stage 3b chronic kidney disease N18.32 Active confi rmed Problem Pulmonary fibrosis J84.10 Active confirmed 5 8635950 Problem Hypothyroidism (acquired) E03.9 Active confirmed 421562258 Problem Hypertensive kidney disease I12.9 Active confirmed 56842092 Problem Basal cell carcinoma (BCC) of skin of nose C44.311 Active confirmed 874099915 Problem 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 Active confirmed 477288945 ALLERGIES Allergen (clinical drug ingredient) Drug/Non Drug Allergy do cumented on EMR Reaction Allergy Type Onset Date Status sitagliptin Januvia([facility] Code:[address]-03) Rash Drug Allergy Active azithromycin Azithromycin([facility] Code:[address]-66) Rash Drug All ergy Active amiodorone toxicity Non Drug Allergy Active lisinopril cough Drug Allergy Active ENCOUNTERS from 1945 to 2021-01-27 Encounter Location Date Provider Diagnosis [facility] [address] [facility] [facility] [phone] [place] [address] 07 Jan, 2021 Irais Inman IMMUNIZATIONS Vaccine Route Administration Date Status Influenza 18 yrs & older Flublok IM Intramuscular Feb 18, 2018 Administered Influenza 18 yrs & older Flublok IM Intramuscular Feb 19, 2019 Administered Influenza 18 yrs & older Flublok IM Intramuscular Jan 22, 2020 Administered Influenza (High Dose 65 & up) IM Intramuscular Feb 15, 2016 A dministered Influenza (High Dose 65 & up) Unknown Jan 19, 2017 Ot hers Influenza (High Dose 65 & up) IM Intramuscular Feb 21, 2017 A dministered Influenza 6mo & up Fluzone IM Intramuscular Apr 08, 2012 Admi nistered COVID-19 dose #2 given elsewhere Unspecified Unknown Jun Administered COVID-19 dose #1 given elsewhere Unspecified Unknown Jun 07, 2020 Administered Pneumococcal Adult 0.5mL Pneumovax 23 IM Intramuscular November 19, 2017 Administered Pneumococcal Adult 0.5mL Pneumovax 23 Unknown Dec 11 09 Administered Pneumococcal 0.5mL Prevnar 13 IM Intramuscular Feb 15, 2016 A dministered TD PED 0.5mL Tetanus Unknown May 13, 2011 Administere d Influenza 6mo & up Fluzone Unknown Apr 28, 2014 Admin istered Influenza 6mo & up Fluzone IM Intramuscular Feb 17, 2013 Admi nistered SOCIAL HISTORY Tobacco Use: Social History Observation Description Date Details (start date - stop date) Never Smoker Sex Assigned At : Social History Observation Description Sex Assigned At Unknown Education: Question Answer Notes Level of Education: Graduate Audit Question Answer Notes Total Score: 0 Interpretation: Alcohol Education Language: Question Answer Notes Languages spoken: [place] Islander Taoist: Question Answer Notes Taoist 24 Lutheran Sexual Hx: Question Answer Notes Had sex in the last 12 months (vaginal, oral, or anal)? No Have you ever had an STD? No Drug and Alcohol Question Answer Notes Total Score: 0 Interpretation: No problems reported Alcohol Screening: Question Answer Notes Did you have a drink containing alcohol in the past year? No Points 0 Interpretation Negative BMI Care Goal Follow-Up Question Answer Notes Above Normal BMI Follow-Up Lifestyle education regarding t Tobacco Use: Question Answer Notes Are you a: never smoker REASON FOR REFERRAL No Information VITAL SIGNS No information MEDICATIONS Medication SIG (Take, Route, Frequency, Duration) Notes Start Da te End Date Status Losartan Potassium 25 MG TAKE ONE TABLET BY MOUTH EVERY DAY for 90 Active Tourona SoloStar 300 UNIT/ML [address] Bansal rx Active Spironolactone 25 mg 0.5 tablet Orally Daily Dec, Active Trulicity 1.5 MG/0.5ML as directed Subcutaneous Active Cardizem 60 MG as directed Orally daily Active Eliquis 5 mg Orally twice daily cardiology Act danielle Lipitor 80 MG 1 tablet Orally Once a day Active Chlorthalidone 25 MG 1 tablet in the morning with food Orally Once a day for 30 day(s) Active Restasis 0.05 % 1 drop into affected eye Ophthalmic Twice a day Active Methotrexate Sodium 2.5 MG 4 tablets as directed Orally Once weekly for 90 days Active glipiZIDE 10 MG 1 tablet 30 minutes before breakfast Orally twice wali ly Active Cefpodoxime Proxetil 200 MG 1 tablet with food Orally Twice a da y Nov, Not-Taking Flonase 50 MCG/ACT 1 spray in each nostril Nasa lly Once a day, as needed for 90 days PRN Active HumaLOG 100 UNIT/ML per SS Subcutaneous TID AC Dr. Bansal rx Active Calcium 250 MG as directed Orally Ac tive Bisoprolol Fumarate 10 MG 1 tablet Orally Once a day Active Doxycycline Hyclate 100 MG 1 tablet Orally every 12 hrs Nov, Not-Taking Omeprazole 40 MG 1 capsule Orally Once a day Dec, Active Folic Acid 1 MG 1 tablet Orally Once a day for 90 days Active Digoxin 125 MCG 1 tablet Orally Once a day Active Levothyroxine Sodium 137 MCG 1 tablet in the morning o n an empty stomach Orally Once a day for 90 days Nov, Active PROCEDURES No Information RESULTS No Results REASON FOR VISIT levothyroxine MEDICAL (GENERAL) HISTORY Type Description Date Medical History 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 Fauzia Bansal Medical History GERD Medical History DEVEN - uses CPAP; Dr. Slade Medical History H/o asthma Medical History Pulmonary fibrosis Medical History Macular degeneration - Dr. German Medical History Cataracts, left eye infection - Dr. Lopez delgadillo Medical History Atrial fibrillation/atrial flutter: [facility]: Dr. Kulkarni Medical History 03/2015 ECHO: EF 50-55%. Gra de 2Diastolic dysfunction. Sclerotic aortic valve without stenosis Medical History Gastroparesis Medical History BCC of left face - removed by Mohs Dr. Ryland ferguson Medical History Left knee OA - Dr. Arana Medical History Pneumonia Surgical History Umbilical hernia repair As child Surgical History Left Inguinal Hernia Repair 1968 Surgical History tubal ligation 1973 Surgical History anchove procedure right thumb 1997 Surgical History left meniscus repair 1999 Surgical History Left Rotator Cuff Repair 2007 Surgical History Cholecystectomy 2007 Surgical History Right total knee replacement 2010 Surgical History Excisional biopsy left lymph node 2011 Surgical History Right cataract surgery 2011 Surgical History vitreal hemmorrage B/L 2013 Surgical History L cataract surgery 03/2014 Surgical History left carpal tunnel release 06/17/2014 Surgical History right parotidectomy 10/01/2014 Surgical History PET scan 04/12/16 Surgical History Cardiac ablasion x 3 04/04/16 Surgical History colonoscopy: Femi 2006 Surgical History EGD and Colonoscopy-Dr. Rome 06/12/17 Surgical History Sinus surgery - Dr. Webb 07/17/2017 Surgical History corneal transpplant left eye 06/13/2018 Surgical History Mohs surgery of BCC on face - Dr. Sandy nichols 07/09/2018 Surgical History Left eye surgery - FLAT procedure, Dr. Preston villasenor 01/20/19 Surgical History left total knee replacment 04/2019 Surgical History Pacemaker 10/02/20 Hospitalization History Syncope; Chest Pain 2009 Hospitalization History AFIB/flutter 04/2015 Hospitalization History CHF 01/14/2016 Hospitalization History Pulmonary fibrosis exacerbation. 02/2017 Hospitalization History pnuemonia, chf , afib 12/29/2017 Hospitalization History pneumonia 03/28/2019 Hospitalization History a fib 09/2020 Hospitalization History Cardiovesion 09/22-09/23/20 Hospitalization History ER visit shortness of breath 12/17/19 21 Hospitalization History ER visit shortness of breath 01/04/20 21 Goals Section No Information Health Concerns No Information MEDICAL EQUIPMENT No Information MENTAL STATUS No Information FUNCTIONAL STATUS No Information ASSESSMENTS No Information PLAN OF TREATMENT Medication Medication Name Sig Start Date Stop Date Methotrexate Sodium 2.5 MG 4 tablets as directed Orally Once weekly for 90 days Folic Acid 1 MG 1 tablet Orally Once a day for 90 days Next Appt Details Provider Name:Kathie Linder, 11:30:00 AM, [address] [place] [address], , [place], [place], [facility] [phone] Provider Name:Irais Barber Inman, 2021-06-13 11:45:00 AM, [facility] [facility], , [place], [address], Insurance Providers Payer Name Payer Address Payer Phone Insured Name Patient Relati onship to Insured Coverage Start Date Coverage End Date MEDICARE Part A and B [address] [facility] [address] [phone] LISA DIAMOND [facility] HEALTH CARE OPTIONS [facility] CLAIM DIV [address] [facility] [id number] LISA DIAMOND
--- OUTSIDE RECORDS SUMMARY | 2021-02-04 11:31 | CCD ---
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 , face, 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 Active confirmed 02854330 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 Activ e confirmed 548514396 Problem Mixed hyperlipidemia E78.2 Active confirmed 711951275 Problem Chronic diastolic congestive heart failure I50.32 Active confirmed 747562538 Problem 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.43 Active confirmed 943935613 Problem Gastroparesis K31.84 Active confirmed 346984 006 Problem 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 Active confirmed 080200370 Problem Pulmonary fibrosis J84.10 Active confirmed 5 9078887 Problem Visual loss H54.7 Active confirmed 37553253 3 Problem Obesity, unspecified obesity severity, unspecified obe sity type E66.9 Active confirmed 578533124 Problem Chronic systolic (congestive) heart failure I50.22 Active confirmed 910237118 Problem Hypothyroidism (acquired) E03.9 Active confirmed 876687231 Problem Hypertensive kidney disease I12.9 Active confirmed 22349076 Problem Basal cell carcinoma (BCC) of skin of nose C44.311 Active confirmed 425628388 ALLERGIES Allergen (clinical drug ingredient) Drug/Non Drug Allergy do cumented on EMR Reaction Allergy Type Onset Date Status azithromycin Azithromycin([facility] Code:[address]-11) Rash Drug All ergy Active amiodorone toxicity Non Drug Allergy Active Lisinopril lisinopril cough Non Drug Allergy Active sitagliptin Antoineuvjune([facility] Code:[address]-30) Rash Drug Allergy Active ENCOUNTERS from 1945 to 2021-01-20 Encounter Location Date Provider Diagnosis [place] [address] [facility] [phone] [place] [address] Dec, Irais Inman Hypothyroidism (acquired) E0 3.9 IMMUNIZATIONS Vaccine Route Administration Date Status COVID-19 dose #1 given elsewhere Unspecified Unknown Jun 07, 2020 Administered COVID-19 dose #2 given elsewhere Unspecified Unknown Jun Administered Influenza 18 yrs & older Flublok IM Intramuscular Jan 22, 2020 Administered Pneumococcal Adult 0.5mL Pneumovax 23 IM Intramuscular November 19, 2017 Administered Influenza 18 yrs & older Flublok IM Intramuscular Feb 18, 2018 Administered Influenza 18 yrs & older Flublok IM Intramuscular Feb 19, 2019 Administered Influenza 6mo & up Fluzone IM Intramuscular Apr 08, 2012 Admi nistered Influenza (High Dose 65 & up) IM Intramuscular Feb 21, 2017 A dministered Influenza (High Dose 65 & up) Unknown Jan 19, 2017 Ot hers Influenza (High Dose 65 & up) IM Intramuscular Feb 15, 2016 A dministered Pneumococcal 0.5mL Prevnar 13 IM Intramuscular Feb 15, 2016 A dministered Pneumococcal Adult 0.5mL Pneumovax 23 Unknown Dec 11 09 Administered TD Adult 0.5mL Tetanus Unknown May 13, 2011 Administe red Influenza 6mo & up Fluzone Unknown Apr [...] Education Language: Question Answer Notes Languages spoken: Welsh Worship: Question Answer Notes Worship 24 Worship Sexual Hx: Question Answer Notes Had sex [...] Notes Start Da te End Date Status Trulicity 1.5 MG/0.5ML as directed Subcutaneous Active Restasis 0.05 % 1 drop into affected eye Ophthalmic Twice a day Active Bisoprolol Fumarate 10 MG 1 tablet Orally Once a day Active Doxycycline Hyclate 100 MG 1 tablet Orally every 12 hrs Nov, Not-Taking Flonase 50 MCG/ACT 1 spray in each nostril Nasa lly Once a day, as needed for 90 days PRN Active Toujenelson SoloStar 300 UNIT/ML [address] Bansal rx Active HumaLOG 100 UNIT/ML per SS Subcutaneous TID AC Dr. Bansal rx Active Cardizem 60 MG as directed Orally daily Active Cefpodoxime Proxetil 200 MG 1 tablet with food Orally Twice a da y Nov, Not-Taking Losartan Potassium 25 MG TAKE ONE TABLET BY MOUTH EVERY DAY for 90 Active Eliquis 5 mg Orally twice daily cardiology Act danielle Chlorthalidone 25 MG 1 tablet in the morning with food Orally Once a day for 30 day(s) Active Omeprazole 40 MG 1 capsule Orally Once a day Dec, Active Methotrexate Sodium 2.5 MG 4 tablets as directed Orally Once wee kly Apr, Active Spironolactone 25 mg 0.5 tablet Orally Daily Dec, Active Lipitor 80 MG 1 tablet Orally Once a day Active Calcium 250 MG as directed Orally Ac tive glipiZIDE 10 MG 1 tablet 30 minutes before breakfast Orally twice wali ly Active Levothyroxine Sodium 137 MCG 1 tablet in the morning o n an empty stomach Orally Once a day for 90 days Nov, Active Folic Acid 1 MG 1 tablet Orally Once a day Apr, Active Digoxin 125 MCG 1 tablet Orally Once a day Active PROCEDURES No Information RESULTS No Results REASON FOR VISIT refill levothyroxine MEDICAL (GENERAL) HISTORY Type Description Date Medical History 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 Fauzia Bansal Medical History GERD Medical History DEVEN - uses CPAP; Dr. Slade Medical History H/o asthma Medical History Pulmonary fibrosis Medical History Macular degeneration - Dr. German Medical History Cataracts, left eye infection - Dr. Lopez delgadillo Medical History Atrial fibrillation/atrial flutter: [facility]: Dr. Kulkarni Medical History 03/2015 ECHO: EF 50-55%. Gra de 2Diastolic dysfunction. Sclerotic aortic valve without stenosis Medical History Gastroparesis Medical History BCC of left face - removed by Mohs Dr. Ryland ferguson Medical History Left knee OA - Dr. Arana Surgical History Umbilical hernia repair As child [...] a fib 09/2020 Hospitalization History Cardiovesion 09/22-09/23/20 Goals Section No Information Health Concerns No Information MEDICAL EQUIPMENT No Information MENTAL STATUS No Information FUNCTIONAL STATUS No Information ASSESSMENTS Encounter Date Diagnosis Assessment Notes Treatment Notes Treatm ent Clinical Notes Dec, Hypothyroidism (acquired) (ICD-10 - E03.9) PLAN OF TREATMENT Medication Medication Name Sig Start Date Stop Date Losartan Potassium 25 MG TAKE ONE TABLET BY MOUTH EVERY DAY for 90 Levothyroxine Sodium 137 MCG 1 tablet in the morning o n an empty stomach Orally Once a day for 90 days Nov, Future Test Test Name Order Date FREE T4 & TSH PANEL [id number] Next Appt Details Provider Name:Kathie Kailash, 03:45:00 PM, [address] [place] [address], , [place], [place], [facility] [phone] Provider Name:Irais Inman, 2021-06-13 11:45:00 AM, [address] [place] [address] , [place], [address], Insurance Providers Payer Name Payer Address Payer Phone Insured Name Patient Relati onship to Insured Coverage Start Date Coverage End Date MEDICARE Part A and B [address] [facility] [id number] LISA DIAMOND [facility] CLAIM [facility] [address] [facility] [phone] LISA DIAMOND
--- OUTSIDE RECORDS SUMMARY | 2021-02-04 11:31 | CCD | Continuity of Care Document ---
Author Author Judy MAY MD Organization Unknown Address [address] [place] [address], [address] [place] [address] Phone [phone] Care Team Providers Care Automobile Leasing Supervisor Name Role Phone Shantal Kulkarni MD AUTM [phone] Irais Inman MD AUTM [phone] [facility] Imagin AUTM [phone] Problems Description No Information Available Social History Type Date Description Comments Sex Unknown Allergies, Adverse Reactions, Alerts Description No Information Available Medications Active Medications SIG Qnty Indications Ordering Provide r Date Trulicity 1.5mg/0.5ML Solution Pen -Inject every week Unknown Restasis 0.05% Emulsion 1 gdrop both eyes twice a day Unknown Flonase Allergy Relief 50mcg/Act Suspension 1 sprays each nostril every day as needed Unknown Spironolactone 25mg Tablets 1 by mouth every day Unknown Esomeprazole 40mg Unknown Methotrexate 2.5mg Tablets 4 tabs by mouth once every week Unknown Losartan Potassium 25mg Tablets 1 by mouth every day Unknown Levothyroxine Sodium 112mcg Capsules Unknown Toujeo Max Solostar 300Unit/ML Solution Pen-Inject 1/2 every day Unknown Eliquis 5mg Tablets sig- 1 by mouth twice a day Unknown Diltiazem HCL 120mg Tablets 1 by mouth twice a day Unknown Digox 125mcg Tablets 1 by mouth every day Unknown Calcium-Vitamin D3 751-045md-Gftu Tablets Unknown Chlorthalidone 25mg Tablets 1 by mouth every day Unknown Cefpodoxime Proxetil 200mg Tablets 1 by mouth twice a day x 3 months - thru fe Unknown Bisoprolol Fumarate 10mg Tablets 1 by mouth every day Unknown Lipitor 80mg Tablets 1 by mouth every day Unknown Immunizations Description No Information Available Vital Signs Date Vital Result Comment 01/06/2021 4:35pm BP Systolic Right Arm 126 mmHg BP Diastolic Right Arm 92 mmHg Heart Rate 77 /min Weight 176.00 lb Results Description No Information Available Procedures Date Code Description Status 01/06/2021 74165 Office/Outpatient New High MDM 6 0-74 Minutes Completed 01/06/2021 24353 Electrocardiogram Complete Compl eted Medical Devices Description No Information Available Encounters Type Date Location Provider Dx Diagnosis Office Visit 01/06/2021 4:00p [facility] Crow Arguello MD I48.0 Paroxysmal atrial fibrillation I35.0 Nonrheumatic aortic (valve) stenosis Assessments Date Code Description Provider 01/06/2021 I48.0 Paroxysmal atrial fibrillation M tyrell Arguello MD 01/06/2021 I35.0 Nonrheumatic aortic (valve) sten osis Crow Arguello MD Plan of Treatment Future Appointment(s):* 01/31/2021 11:00 am - Crow Arguello MD at [facility] 01/06/2021 - Crow Arguello MD* I48.0 Paroxysmal atrial fibrillation * I35.0 Nonrheumatic aortic (valve) stenosis* Recommendations:* Functional Status Description No Information Available Mental Status Description No Information Available Referrals Description No Information Available
--- OUTSIDE RECORDS SUMMARY | 2021-02-04 11:31 | CCD ---
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 Active confirmed 53309312 Problem Esophageal reflux K21.9 Active confirmed 23 2997315 Problem Mixed hyperlipidemia E78.2 Active confirmed 752521200 Problem Obstructive sleep apnea G47.33 Active confirmed 83275822 Problem Obesity, unspecified obesity severity, unspecified obe sity type E66.9 Active confirmed 884028688 Problem [facility] (current) use of insulin Z79.4 Activ e confirmed 505975313 Problem 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.43 Active confirmed 214087866 Problem Gastroparesis K31.84 Active confirmed 558984 006 Problem Chronic systolic (congestive) heart failure I50.22 Active confirmed 624697240 Problem Visual loss H54.7 Active confirmed 46279082 3 Problem Chronic diastolic congestive heart failure I50.32 Active confirmed 171977448 Problem Stage 3b chronic kidney disease N18.32 Active confi rmed Problem Pulmonary fibrosis J84.10 Active confirmed 5 6773433 Problem Hypothyroidism (acquired) E03.9 Active confirmed 512751670 Problem Hypertensive kidney disease I12.9 Active confirmed 14932456 Problem Basal cell carcinoma (BCC) of skin of nose C44.311 Active confirmed 835730917 Problem 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 Active confirmed 769657783 ALLERGIES Allergen (clinical drug ingredient) Drug/Non Drug Allergy do cumented on EMR Reaction Allergy Type Onset Date Status sitagliptin Januvia([facility] Code:[address]-44) Rash Drug Allergy Active azithromycin Azithromycin([facility] Code:[address]-82) Rash Drug All ergy Active amiodorone toxicity Non Drug Allergy Active lisinopril cough Drug Allergy Active ENCOUNTERS from 1945 to 2021-01-28 Encounter Location Date Provider Diagnosis [facility] Rheumatology [address] [facility] [phone] [place] [address] 07 Jan, 2021 Kathie Linder Corneal ulcer, right H16.001 ; Hyperuricemia E79.0 ; Pulmonary fibrosis J84.10 ; Stage 3b chronic kidney disease N18.32 and Long-term use of immunosuppressant medication Z79.899 IMMUNIZATIONS Vaccine Route Administration Date Status Influenza 18 yrs & older Flublok IM Intramuscular Jan 22, 2020 Administered COVID-19 dose #1 given elsewhere Unspecified Unknown Jun 07, 2020 Administered COVID-19 dose #2 given elsewhere Unspecified Unknown Jun Administered Influenza (High Dose 65 & up) IM Intramuscular Feb 21, 2017 A dministered Influenza 18 yrs & older Flublok IM Intramuscular Feb 18, 2018 Administered Influenza 18 yrs & older Flublok IM Intramuscular Feb 19, 2019 Administered Influenza 6mo & up Fluzone IM Intramuscular Apr 08, 2012 Admi nistered Influenza (High Dose 65 & up) Unknown Jan 19, 2017 Ot hers Influenza (High Dose 65 & up) IM Intramuscular Feb 15, 2016 A dministered Pneumococcal Adult 0.5mL Pneumovax 23 IM Intramuscular [...] Education Language: Question Answer Notes Languages spoken: Cuban Catholic: Question Answer Notes Catholic 24 Moravian Sexual Hx: Question Answer Notes Had sex [...] REASON FOR REFERRAL No Information VITAL SIGNS Weight 176.8 lbs Jan, Weight-kg 80.2 kg Jan, Height 60.5 in Jan, BMI 33.96 kg/m2 Jan, Heart Rate 85 /min Jan, Respiratory Rate 18 /min Jan, Temperature 97.3 degrees Fahrenheit Jan, Oximetry 97 Jan, Blood pressure systolic 134 mm Hg Jan, Blood pressure diastolic 64 mm Hg Jan, MEDICATIONS Medication SIG (Take, Route, Frequency, Duration) Notes Start Da te End Date Status Losartan Potassium 25 MG TAKE ONE TABLET BY MOUTH EVERY DAY for 90 Active Todayton Gallegoar 300 UNIT/ML [address] [...] Information RESULTS No Results REASON FOR VISIT Judy presents today for her 3 month follow up. She is having pain in the r ight side. Wakes up with pain in the morning. Tends to get better throughout t he day and is okay until she goes to bed again. Believes it's part of her pulmo nary fibrosis. 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 Fauzia Bansal Medical History GERD Medical History DEVEN - uses CPAP; Dr. Slade Medical History H/o asthma Medical History Pulmonary fibrosis Medical History Macular degeneration - Dr. German Medical History Cataracts, left eye infection - Dr. Lopez delgadillo Medical History Atrial fibrillation/atrial flutter: [facility]: Dr. Kulkarni Medical History 03/2015 ECHO: EF 50-55%. Gra de 2Diastolic dysfunction. Sclerotic aortic valve without stenosis Medical History Gastroparesis Medical History BCC of left face - removed by [facility] ferguson Medical History Left knee OA - Dr. Arana Medical History Pneumonia Surgical History Umbilical hernia repair As child Surgical History Left Inguinal Hernia Repair 1969 Surgical History tubal ligation 1974 Surgical History anchove procedure right thumb 1997 [...] x 3 04/04/16 Surgical History colonoscopy: Femi Lam Surgical History EGD and Colonoscopy-Dr. Rome 06/12/17 [...] History ER visit shortness of breath 12/17/19 Hospitalization History ER visit shortness of breath 01/04/20 Goals Section No Information Health Concerns No Information MEDICAL EQUIPMENT No Information MENTAL STATUS No Information FUNCTIONAL STATUS No Information ASSESSMENTS Encounter Date Diagnosis Assessment Notes Treatment Notes Treatm ent Clinical Notes Jan, Hyperuricemia (ICD-10 - E79.0) uric acid in mid 8s 06/2020 no h/o gout no h/o nephrolithiasis on losartan repeat iwith next labs Jan, Corneal ulcer, right (ICD-10 - H16.001) Since Feb [id number] s/o recurrnet corneal uclers s/p corneal transpalnt with no benefit, 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 h/o right eye corneal ulcers since September 2019 another bout in Dec 2019. 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 however since Apr 2020 MTX was started for immunosuppression with good benefit stable no further flares continue follow up with Dr. Torres and Dr. 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 Lehman with no CI at this time Jan, Stage 3b chronic kidney disease (ICD-10 - N18.32 ) stable check uric acid next visit continue losartan Jan, Long-term use of immunosuppressant medication (I CD-10 - Z79.899) labs reviewed normal labs prior to next visit continue folic acid 1 mg daily feels like she has been doing great overall since on Methotrexate Jan, Other PATIENT INSTRUCTIONS : Continue methotrexate 10 mg weekly on sunday by mouth continue folic acid 1 mg daily refilled methotrexate and folic acid for 90 days labs prior to next visit return in 4months More than 50% of the 35 minute visit was spent in patient education, counseling, and coordination of care. I reviewed her symptoms, imaging findings, laboratory results, physical findings, and treatment to date. I have answered patient's questions, and they stated satisfaction regarding the treatment plan and recommendations. 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 Torres and Dr. Hoover with stable disease at this timecontinue MTX 10 mg weekly on sundaycontinue folic acid 1 mg dailylabs reviewed normallabs prior to next visitreturn in 4 months Pulmonary fibrosis since 2016from amiod arone toxicitysympatically better since on methotrexatefollows with pulmonology - Dr. Lehman with no CI at this time Stage 3b chronic kidney disease stablech maura uric acid next visitcontinue losartan Long-term use of immunosuppressant medication labs reviewed normallabs prior to next visitcontinue folic acid 1 mg dailyfeels like she has been doing great overall since on Methotrexate Treatment Notes Test Name Order Date URIC ACID 2021-01-27 ERYTHROCYTE SEDIMENTATION RATE 2021-01-27 Comprehensive Metabolic Profile (CMP) 2021-01-27 CBC with Differential 2021-01-27 C REACTIVE PROTEIN QUANTITATIV (At [facility]) 2021-01-27 Next Appt Details 4 Months Reason:f/u corneal ulcer Provider Name:Kathie Linder, 11:30:00 AM, [address] [place] [address], , [place], [place], [facility] [phone] Provider Name:Irais Inman, 2021-06-13 11:45:00 AM, [address] [place] [address], , [place], [address], Follow Up:4 Monthsf/u corneal ulcer Insurance Providers Payer Name Payer Address Payer Phone Insured Name Patient Relati onship to Insured Coverage Start Date Coverage End Date [facility] CLAIM DIV [address] [facility] [id number] JUDY DIAMOND self MEDICARE Part A and B [address] [facility] [phone] JUDY DIAMOND
--- OUTSIDE RECORDS SUMMARY | 2021-02-04 11:32 | CCD ---
Author Author Reilly Burks MD [facility] Organization Reilly Burks MD [facility] Address [address] [place] [id number] Phone Care Team Providers Care [employer] Name Role Phone Henny PENA, Irais Blandon PP [phone] Brian WEEKS, Bird Unavailable [phone] Reason for Referral No Reason for Referral Recorded Problems Includes: Active, inactive, and resolved Problems All Visits Onset Date - Time Resolved Date - Time Provider Co ndition Status Conjunctivitis Acute Bacterial 09/02/2020 - 12:00AM 09/15/2020 - 1:17PM Bird Torres DO Resolved Lacrimal Stenosis Nasolacrimal Duct Acquired 07/16/2020 - 12 :00AM 09/15/2020 - 1:17PM Bird Torres DO Resolved Epiphora Due To Excess Lacrimation 06/15/2020 - 12:00AM 09/16/19 21 - 1:17PM Bird Torres DO Resolved Corneal Opacity 04/08/2020 - 12:00AM Bird Torres DO Active Dry Eye Syndrome Right Eye 01/02/2020 - 12:00AM Grace Torres DO Active Conjunctival Concretions 11/21/2019 - 12:00AM Bird Torres DO Active Hypotony of Eye 11/21/2019 - 12:00AM Bird Torres DO Active Blepharitis Squamous 10/03/2019 - 12:00AM Bird schmidt DO Active Superficial Injury - Abrasion of Cornea 10/02/2019 - 9:26AM 07/2 11/2019 - 7:45AM Bird Torres DO Resolved Superficial Injury - Laceration of Cornea 10/01/2019 - 12:00AM Bird Torres DO Inactive Ocular Pain Left Eye 01/10/2019 - 12:00AM Bird schmidt DO Inactive Endophthalmitis 12/20/2018 - 12:00AM Bird Torres DO Inactive Corneal Ulcer Hypopyon 12/20/2018 - 12:00AM Bird france DO Inactive Complications Corneal Transplant Failure 11/21/2018 - 12:00AM Bird Brian DO Active 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 07/24/19 - 12:00AM Bird Jordanstein DO Active Taking Medication For Diabetes Long-term Use of Insulin 07/24/19 - 12:00AM Bird Jordanstein DO Active Subconjunctival Hemorrhage 07/10/2018 - 12:00AM Unknown - Unknow n Bird Jordanstein DO Resolved Corneal Transplant Status 06/21/2018 - 12:00AM Bird Torres DO Active Hyphema 06/18/2018 - 12:00AM Unknown - Unknown Bird Weinste in DO Resolved Corneal Pannus 05/31/2018 - 12:00AM Unknown - Unknown Bird Weins tein DO Resolved Corneal Pannus 05/31/2018 - 12:00AM Bird Jordanstein DO Active Corneal Scar 05/15/2018 - 12:00AM Unknown - Unknown Bird Weinste in DO Resolved Corneal Disorder 04/30/2018 - 12:00AM Unknown - Unknown Bird Lopez leona DO Resolved Corneal Degeneration Recurrent Erosion 04/30/2018 - 12:00AM Unkn own - Unknown Bird Brian DO Resolved Corneal Degeneration Recurrent Erosion 04/30/2018 - 12:00AM 10/22 - 7:45AM Bird Brian DO Resolved Corneal Degeneration Recurrent Erosion 04/30/2018 - 12:00AM 05/25 - 8:07AM Bird Brian DO Resolved Conjunctivitis Acute Atopic 04/24/2018 - 12:00AM Unknown - Unkno wn Bird Brian DO Resolved Conjunctivitis Acute Atopic 04/24/2018 - 12:00AM 11/21/2019 - 10 :15AM Bird Brian DO Resolved Corneal Edema Secondary 04/24/2018 - 12:00AM Unknown - Unknown M [email or web address] JordanBrian DO Resolved Dry Eye Syndrome Both Eyes 04/24/2018 - 12:00AM Grace Torres DO Inactive Plan of Treatment Referrals To Diagnosis Referral to Dr. Ruben Burks MD, FACS Recurr ent erosion of cornea, right eye Referral to Dr. 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 Webb LACRIMAL IRRIGATION & PROBING IN OFFICE [facility] 10 day with Bird Brian DO 07/16/2020 Requested Referred to: Dr. Miranda 1 Week Follow-Up with Kael Jordanstein DO 03/23/2020 Assessments Includes: Assessments for all patient encounters Findings Encounter Date Atrophy of globe, left eye TRIAGE NON URGENT with Bird We instein DO 11/09/2020 Conjunctival concretions TRIAGE NON URGENT with Bird Nikki schmidt DO 11/09/2020 Corneal opacity TRIAGE NON URGENT with Bird Brian DO 11/09/2020 Dry eye syndrome of the right eye TRIAGE NON URGENT with Mat thew Brian DO 11/09/2020 Hypotony of eye TRIAGE NON URGENT with Bird Brian DO 11/09/2020 Squamous blepharitis right upper eyelid , right lower eyelid, left upper eyelid and left lower eyelid TRIAGE NON URGENT with Bird Brian DO 11/09/2020 Atrophy of globe, left eye 2 Month Follow up with Bird We instein DO 09/14/2020 Conjunctival concretions 2 Month Follow up with Bird Nikki schmidt DO 09/14/2020 Corneal opacity 2 Month Follow up with Bird Brian DO 09/14/2020 Dry eye syndrome of the right eye 2 Month Follow up with Mat thew Brian DO 09/14/2020 Hypotony of eye 2 Month Follow up with Bird Brian DO 09/14/2020 Squamous blepharitis right upper eyelid , right lower eyelid, left upper eyelid and left lower eyelid 2 Month Follow up with Bird Brian DO 09/14/2020 Acquired stenosis of nasolacrimal duct TRIAGE NON URGE NT with Reilly Hebert MD, FACS 09/02/2020 Acute bacterial conjunctivitis TRIAGE NON URGENT with Reilly Burks MD, FACS 09/02/2020 Acquired stenosis of nasolacrimal duct LACRIMAL IRRIGA TION & PROBING IN OFFICE Global 10 day with Bird Brian DO 07/16/2020 Atrophy of globe, left eye LACRIMAL IRRIGATION & PROBI NG IN OFFICE Global 10 day with Bird Jordanstein DO 07/16/2020 Conjunctival concretions LACRIMAL IRRIGATION & PROBIN G IN OFFICE Global 10 day with Bird Brian DO 07/16/2020 Corneal opacity LACRIMAL IRRIGATION & PROBIN G IN OFFICE Global 10 day with Bird Brian DO 07/16/2020 Dry eye syndrome of the right eye LACRIMAL IRRIGATION & PROBING IN OFFICE Global 10 day with Bird Brian DO 07/16/2020 Hypotony of eye LACRIMAL IRRIGATION & PROBIN G IN OFFICE Global 10 day with Bird Brian DO 07/16/2020 Squamous blepharitis right upper eyelid , right lower eyelid, left upper eyelid and left lower eyelid LACRIMAL IRRIGATION & PROBING IN OFFI CE Global 10 day with Bird Brian DO 07/16/2020 Atrophy of globe, left eye 1 Month Follow-Up with Bird france DO 06/15/2020 Conjunctival concretions 1 Month Follow-Up with Bird schmidt DO 06/15/2020 Corneal opacity 1 Month Follow-Up with Bird Jordanstein DO 06/15/2020 Dry eye syndrome of the right eye 1 Month Follow-Up with Marco A khanna Brian DO 06/15/2020 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 1 Month Follow-Up with Miracle chavez Brian DO 06/15/2020 Hypotony of eye 1 Month Follow-Up with Bird Jordanstein DO 06/15/2020 Squamous blepharitis right upper eyelid , right lower eyelid, left upper eyelid and left lower eyelid 1 Month Follow-Up with Bird Brian DO 06/15/2020 Atrophy of globe, left eye 2 Week Follow-Up with Bird delgadillo DO 05/13/2020 Conjunctival concretions 2 Week Follow-Up with Bird huerta DO 05/13/2020 Corneal opacity 2 Week Follow-Up with Bird Brian DO 05/13/2020 Dry eye syndrome of the right eye 2 Week Follow-Up with Massimo miranda Brian DO 05/13/2020 Hypotony of eye 2 Week Follow-Up with Bird Jordanstein DO 05/13/2020 Recurrent corneal erosion 2 Week Follow-Up with Bird schmidt DO 05/13/2020 Squamous blepharitis right upper eyelid , right lower eyelid, left upper eyelid and left lower eyelid 2 Week Follow-Up with Bird Brian DO 05/13/2020 Atrophy of globe, left eye 1 Week Follow-Up with Bird Lopez delgadillo DO 04/28/2020 Conjunctival concretions 1 Week Follow-Up with Bird Alisson huerta DO 04/28/2020 Corneal opacity 1 Week Follow-Up with Bird Brian DO 04/28/2020 Dry eye syndrome of the right eye 1 Week Follow-Up with Massimo hew Brian DO 04/28/2020 Hypotony of eye 1 Week Follow-Up with Bird Brian DO 04/28/2020 Recurrent corneal erosion 1 Week Follow-Up with Bird Nikki schmidt DO 04/28/2020 Squamous blepharitis right upper eyelid , right lower eyelid, left upper eyelid and left lower eyelid 1 Week Follow-Up with Bird Brian DO 04/28/2020 Atrophy of globe, left eye 1 Week Follow-Up with Bird delgadillo DO 04/20/2020 Corneal opacity 1 Week Follow-Up with Bird Brian DO 04/20/2020 Dry eye syndrome of the right eye 1 Week Follow-Up with Massimo hew Brian DO 04/20/2020 Hypotony of eye 1 Week Follow-Up with Bird Brian DO 04/20/2020 Recurrent corneal erosion 1 Week Follow-Up with Bird Nikki schmidt DO 04/20/2020 Squamous blepharitis right upper eyelid , right lower eyelid, left upper eyelid and left lower eyelid 1 Week Follow-Up with Bird Brian DO 04/20/2020 Atrophy of globe, left eye 1 Week Follow-Up with Bird delgadillo DO 04/08/2020 Corneal opacity 1 Week Follow-Up with Bird Brian DO 04/08/2020 Dry eye syndrome of the right eye 1 Week Follow-Up with Massimo hew Brian DO 04/08/2020 Hypotony of eye 1 Week Follow-Up with Bird Brian DO 04/08/2020 Recurrent corneal erosion 1 Week Follow-Up with Bird Nikki schmidt DO 04/08/2020 Squamous blepharitis right upper eyelid , right lower eyelid, left upper eyelid and left lower eyelid 1 Week Follow-Up with Bird Brian DO 04/08/2020 Atrophy of globe, left eye 1 Week Follow-Up with Bird delgadillo DO 04/02/2020 Dry eye syndrome of the right eye 1 Week Follow-Up with Massimomarcia Jordanstein DO 04/02/2020 Hypotony of eye 1 Week Follow-Up with Bird Brian DO 04/02/2020 Recurrent corneal erosion 1 Week Follow-Up with Bird schmidt DO 04/02/2020 Squamous blepharitis right upper eyelid , right lower eyelid, left upper eyelid and left lower eyelid 1 Week Follow-Up with Bird Jordanstein DO 04/02/2020 Atrophy of globe, left eye 1 Week Follow-Up with Bird delgadillo DO 03/23/2020 Dry eye syndrome of the right eye 1 Week Follow-Up with Massimo Jordanstein DO 03/23/2020 Hypotony of eye 1 Week Follow-Up with Bird Brian DO 03/23/2020 Recurrent corneal erosion 1 Week Follow-Up with Bird schmidt DO 03/23/2020 Squamous blepharitis right upper eyelid , right lower eyelid, left upper eyelid and left lower eyelid 1 Week Follow-Up with Bird Torres DO 03/23/2020 Atrophy of globe, left eye 3day followup with Reilly Mckeon MD, FACS 03/16/2020 Dry eye syndrome of the right eye 3day followup with Terry Burks MD, FACS 03/16/2020 Hypotony of eye 3day followup with Reilly Stewart, FACS 03/16/2020 Recurrent corneal erosion 3day followup with Reilly Hebert MD, FACS 03/16/2020 Squamous blepharitis right upper eyelid , right lower eyelid, left upper eyelid and left lower eyelid 3day followup with Reilly Burks MD, FACS 2019 Atrophy of globe, left eye 1 Month Follow-Up with Bird france DO 03/12/2020 Dry eye syndrome of the right eye 1 Month Follow-Up with Marco A Torres DO 03/12/2020 Hypotony of eye 1 Month Follow-Up with Bird Torres DO 03/12/2020 Recurrent corneal erosion 1 Month Follow-Up with Bird delgadillo DO 03/12/2020 Squamous blepharitis right upper eyelid , right lower eyelid, left upper eyelid and left lower eyelid 1 Month Follow-Up with Bird Torres DO 03/12/2020 Atrophy of globe, left eye 6 Week Follow-Up with Bird delgadillo DO 02/11/2020 Dry eye syndrome of the right eye 6 Week Follow-Up with Massimo miranda Brian DO 02/11/2020 Hypotony of eye 6 Week Follow-Up with Bird Brian DO 02/11/2020 Squamous blepharitis right upper eyelid , right lower eyelid, left upper eyelid and left lower eyelid 6 Week Follow-Up with Bird Brian DO 02/11/2020 Atrophy of globe, left eye 6 Week Follow-Up with Bird delgadillo DO 01/02/2020 Dry eye syndrome of the right eye 6 Week Follow-Up with Massimo miranda Brian DO 01/02/2020 Hypotony of eye 6 Week Follow-Up with Bird Brian DO 01/02/2020 Squamous blepharitis right upper eyelid , right lower eyelid, left upper eyelid and left lower eyelid 6 Week Follow-Up with Bird Jordanstein DO 01/02/2020 Atrophy of globe, left eye 2 Day Follow-Up with Bird schmidt DO 11/21/2019 Conjunctival concretions 2 Day Follow-Up with Bird hannon DO 11/21/2019 Hypotony of eye 2 Day Follow-Up with Bird Stewart O 11/21/2019 Squamous blepharitis right upper eyelid , right lower eyelid, left upper eyelid and left lower eyelid 2 Day Follow-Up with Bird Torres DO 11/21/2019 Acute atopic conjunctivitis TRIAGE NON URGENT with Bird villasenor DO 11/18/2019 Squamous blepharitis right upper eyelid , right lower eyelid, left upper eyelid and left lower eyelid TRIAGE NON URGENT with Bird Jordanstein DO 11/18/2019 Corneal pannus 2 Week Follow-Up with Bidr Jordanstein DO 10/22/2019 Recurrent corneal erosion 2 Week Follow-Up with Bird schmidt DO 10/22/2019 Squamous blepharitis right upper eyelid , right lower eyelid, left upper eyelid and left lower eyelid 2 Week Follow-Up with Bird Torres DO 10/22/2019 Corneal abrasion 3day followup with Bird Jordanstein DO 10/08/2019 Corneal pannus 3day followup with Bird Jordanstein DO 10/08/2019 Recurrent corneal erosion 3day followup with Bird campbell DO 10/08/2019 Squamous blepharitis right upper eyelid , right lower eyelid, left upper eyelid and left lower eyelid 3day followup with Bird Jordanstein DO 10/08/2019 Corneal abrasion 3day followup with Bird Torres DO 10/03/2019 Recurrent corneal erosion 3day followup with Bird Belle in DO 10/03/2019 Squamous blepharitis right upper eyelid , right lower eyelid, left upper eyelid and left lower eyelid 3day followup with Bird Brian DO 10/03/2019 Assessment of long-term use of insulin 6 Month Follow- Up with Bird Torres DO 10/01/2019 Corneal abrasion 6 Month Follow-Up with Birdmeli Torres DO 10/01/2019 Corneal transplant failure 6 Month Follow-Up with Bird france DO 10/01/2019 Corneal transplant status 6 Month Follow-Up with Bird delgadillo DO 10/01/2019 Dry eye syndrome of both eyes 6 Month Follow-Up with Bird Torres DO 10/01/2019 Type 2 diabetes with proliferative diabetic retinopath y 6 Month Follow-Up with Bird Torres DO 10/01/2019 Corneal transplant status 3 - 4 Week Follow-Up with Bird Torres DO 03/13/2019 Corneal transplant status 1 Day Post OP with Bird Belle in DO 01/21/2019 Corneal transplant status 1 Week Follow-Up with Bird schmidt DO 01/10/2019 Hypopyon corneal ulcer 1 Week Follow-Up with Bird Belle in DO 01/10/2019 Ocular pain of left eye 1 Week Follow-Up with Bird hannon DO 01/10/2019 Corneal transplant failure 2 Day Follow-Up with Bird schmidt DO 12/27/2018 Hypopyon corneal ulcer 2 Day Follow-Up with Bird Logan n DO 12/27/2018 Left eye pain 2 Day Follow-Up with Bird Torres D O 12/27/2018 Recurrent corneal erosion 2 Day Follow-Up with Bird raein DO 12/27/2018 Endophthalmitis 10 - 14 Day Follow-Up with Bird huerta DO 12/20/2018 Hypopyon corneal ulcer 10 - 14 Day Follow-Up with Bird france DO 12/20/2018 Corneal transplant failure 3day followup with Bird hannon DO 12/06/2018 Acute atopic conjunctivitis TRIAGE NON URGENT with Bird villasenor DO 12/03/2018 Corneal transplant failure TRIAGE NON URGENT with Bird france DO 12/03/2018 Corneal transplant failure 10 - 14 Day Follow-Up with Grace Torres DO 11/29/2018 Corneal transplant failure 1 Week Follow-Up with Bird Lopez delgadillo DO 11/21/2018 Corneal edema 6 Week Follow-Up with Birdmeli Torres DO 11/13/2018 Corneal transplant status 6 Week Follow-Up with Bird Nikki schmidt DO 11/13/2018 Recurrent corneal erosion 6 Week Follow-Up with Bird Nikki schmidt DO 11/13/2018 Corneal disorder TRIAGE NON URGENT with Bird Brian DO 10/15/2018 Corneal transplant status TRIAGE NON URGENT with Bird Lopez delgadillo DO 10/15/2018 Dry eye syndrome of both eyes TRIAGE NON URGENT with Bird Brian DO 10/15/2018 Corneal transplant status 6 Week Follow-Up with Bird Nikki schmidt DO 10/02/2018 Corneal transplant status 1 Month Follow-Up with Bird Lopez delgadillo DO 08/20/2018 Secondary corneal edema 1 Month Follow-Up with Bird Alisson huerta DO 08/20/2018 Corneal transplant status 2 Week Follow-Up with Bird schmidt DO 07/23/2018 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 Follow-Up with Bird villasenor DO 07/23/2018 Long-term use of insulin 2 Week Follow-Up with Bird Alisson raein DO 07/23/2018 Type 2 diabetes with proliferative diabetic retinopath y 2 Week Follow-Up with Bird Brian DO 07/23/2018 Subconjunctival hemorrhage TRIAGE NON URGENT with Bird france DO 07/10/2018 Corneal transplant status 1 Week Follow-Up with Bird schmidt DO 07/09/2018 Corneal transplant status 1 Week Follow-Up with Bird schmidt DO 2018 Corneal transplant status 2 Day Follow-Up with Bird raein DO 06/25/2018 Corneal transplant status 1 Week Post OP with Bird hannon DO 06/21/2018 Hyphema 1 Week Post OP with Bird Torres DO 06/21/2018 Corneal disorder 2 Day Follow-Up with Bird Torres D O 06/18/2018 Hyphema 2 Day Follow-Up with Bird Torres D O 06/18/2018 Corneal disorder 1 WK PREOP FOR SURGERY with Bird schmidt DO 05/31/2018 Corneal pannus 1 WK PREOP FOR SURGERY with Bird schmidt DO 05/31/2018 Recurrent corneal erosion 1 WK PREOP FOR SURGERY with Grace Torres DO 05/31/2018 Secondary corneal edema 1 WK PREOP FOR SURGERY with Bird Torres DO 05/31/2018 Corneal scar 10 - 14 Day Follow-Up with Bird Alisson huerta DO 05/28/2018 Recurrent corneal erosion 10 - 14 Day Follow-Up with Bird Torres DO 05/28/2018 Secondary corneal edema 10 - 14 Day Follow-Up with Bird Kraig villasenor DO 05/28/2018 Acute atopic conjunctivitis 1 Week Follow-Up with Bird Misbah france DO 05/15/2018 Corneal disorder 1 Week Follow-Up with Bird Jordanstein DO 05/15/2018 Corneal scar 1 Week Follow-Up with Bird Jordanstein DO 05/15/2018 Recurrent corneal erosion 1 Week Follow-Up with Bird Jordan roxana DO 05/15/2018 Secondary corneal edema 1 Week Follow-Up with Bird Easton hannon DO 05/15/2018 Recurrent corneal erosion 1 Week Follow-Up with Bird Nikki schmidt DO 05/07/2018 Acute atopic conjunctivitis 1 Week Follow-Up with Bird Misbah france DO 04/30/2018 Other specified disorders of cornea, left eye 1 Week F ollow-Up with Bird Torres DO 04/30/2018 Recurrent corneal erosion 1 Week Follow-Up with Bird Jordan schmidt DO 04/30/2018 Secondary corneal edema 1 Week Follow-Up with Bird Jordanst hannon DO 04/30/2018 Acute atopic conjunctivitis NEW PATIENT WITH REFERRAL with Kael Torres DO 04/24/2018 Corneal disorder NEW PATIENT WITH REFERRAL with Bird villasenor DO 04/24/2018 Dry eye syndrome of both eyes NEW PATIENT WITH REFERRA L with Bird Jordanstein DO 04/24/2018 Recurrent corneal erosion NEW PATIENT WITH REFERRAL with Marco A Jordanstein DO 04/24/2018 Secondary corneal edema NEW PATIENT WITH REFERRAL with Luis Jordanstein DO 04/24/2018 Instructions Instructions not supported for this document typeNo Instructions Recorded Medical Equipment - Implanted Devices Includes: Current and historical DevicesNo Medical Equipment Recorded Medications Includes: Current and historical Medications Current Medications (continue as prescribed) Bisoprolol Oral Capsule 11/09/2020 Provider: Diagnosis: 25 mg daily Chlorthalidone 25 MG Oral Tablet 11/09/2020 Provide r: Diagnosis: Restasis 0.05% Ophthalmic Emulsion 09/15/2020 Provi shiraz: Bird Brian DO Diagnosis: Dry eye syndrome of bilateral lacrimal glands One drop twice a day in both eyes Digox 125 MCG Oral Tablet 09/14/2020 Provider: Diagnosis: 1/2 a tablet daily Tobramycin-Dexamethasone 0.3-0.1% Ophthalmic Suspension 08/21 Provider: Diagnosis: 2 Drops right eye 3 times daily Methotrexate 2.5 MG Oral Tablet 05/13/2020 Provider : Diagnosis: 4 tablets once a week Folic Acid 1 MG Oral Tablet 05/13/2020 Provider: Diagnosis: Levothyroxine Sodium 112 MCG Oral Tablet 04/02/2020 Provider: Diagnosis: Nebulizer Device 12/27/2018 Provider: Diagnosis: Toujeo SoloStar 300UNIT/ML Subcutaneous Solution Pen-injecto r 12/03/2018 Provider: Diagnosis: Humalog insulin sliding scale Injection Injectable Provider: Diagnosis: with meals GlipiZIDE 10MG Oral Tablet 04/24/2018 Provider: Diagnosis: Atorvastatin 40 mg Oral Tablet 04/24/2018 Provider: Diagnosis: Eliquis 5MG Oral Tablet 04/24/2018 Provider: Diagnosis: Prilosec 40mg Oral Tablet 04/24/2018 Provider: Diagnosis: Past Medications on file Eysuvis 0.25% Ophthalmic Suspension 04/28/2020 - 06/15/2020 Provider: Bird Torres DO Diagnosis: Dry eye syndrome of right lacrimal gland one drop once a day in the right eye Besivance 0.6% Ophthalmic Suspension 04/20/2020 - 06/15/2020 Provider: Bird Torres DO Diagnosis: Recurrent erosion of cornea, right eye one drop three times a day in the right eye Doxycycline Hyclate 20 MG Oral Tablet 04/02/2020 - Provider: Bird Torres DO Diagnosis: Squamous blepharitis right upper eyelid once a day Moxifloxacin HCl 0.5% Ophthalmic Solution 03/29/2020 - 04/20 Provider: Bird Torres DO Diagnosis: Recurrent erosion of cornea, right eye one drop to the right eye three times a day Erythromycin 5 MG/GM Ophthalmic Ointment 03/16/2020 - 2020 Provider: Reilly Burks MD, FACS Diagnosis: Inj conjunctiva and corneal abrasion w/o fb, unsp eye, init apply thin bead to lower right eyelid at bed time to the rig ht eye. Moxifloxacin HCl 0.5% Ophthalmic Solution 03/12/2020 - 03/29 Provider: Bird Torres DO Diagnosis: Recurrent erosion of cornea, right eye one drop four times a day in the right eye Polytrim 11293-8.1 UNIT/ML-% Ophthalmic Solution 03/12/2020 - 04/20/2020 Provider: Bird Torres DO Diagnosis: Recurrent erosion of cornea, right eye one drop four times a day in the right eye TobraDex 0.3-0.1% Ophthalmic Suspension 02/11/2020 - 021 Provider: Bird Torres DO Diagnosis: 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, left eye one drop to the left eye once a day as needed Doxycycline Hyclate 20 MG Oral Tablet 10/03/2019 - 0 Provider: Bird Torres DO Diagnosis: Recurrent erosion of cornea, right eye twice a day Erythromycin 5 MG/GM Ophthalmic Ointment 10/01/2019 - 2019 Provider: Bird Torres DO Diagnosis: Inj conjunctiva and corneal abrasion w/o fb, unsp eye, init apply thin bead to lower right eyelid at bed time to the rig eye. TobraDex 0.3-0.1% Ophthalmic Suspension 10/01/2019 - 020 Provider: Bird Torres DO Diagnosis: Inj conjunctiva and corneal abrasion w/o fb, unsp eye, init one drop to the right eye three times a day TobraDex 0.3-0.1% Ophthalmic Ointment 02/12/2019 - 0 Provider: Bird Torres DO Diagnosis: Corneal transplant s tatus apply thin bead to left eye 3 times a day TobraDex 0.3-0.1% Ophthalmic Ointment 01/21/2019 - 9 Provider: Bird Torres DO Diagnosis: Corneal transplant s tatus apply to left eye 3 times a day Cyclopentolate HCl 1% Ophthalmic Solution 12/27/2018 - 01/28 Provider: Bird Torres DO Diagnosis: Corneal ulcer with h ypopyon, left eye one drop three times a day in the left eye Vigamox 0.5% Ophthalmic Solution 12/27/2018 - 01/28/2019 Pro vider: Bird Torres DO Diagnosis: Corneal ulcer with h ypopyon, left eye one drop six times a day in the left eye Levothyroxine 0.137MG Oral Tablet 12/03/2018 - 04/02/2020 Pr ovider: Diagnosis: Pred Forte 1% Ophthalmic Suspension 11/29/2018 - 10/03/2019 Provider: Bird Torres DO Diagnosis: Corneal transplant f ailure Day after surgery remove patch start one drop four radha es a day in the left eye Besivance 0.6% Ophthalmic Suspension 11/29/2018 - 12/03/2018 Provider: Bird Torres DO Diagnosis: Corneal transplant f ailure Day after surgery remove patch start one drop three times a day in the left eye Ofloxacin 0.3% Ophthalmic Solution 11/21/2018 - 01/28/2019 P rovider: Bird Torres DO Diagnosis: Corneal transplant s tatus one drop three times a day in the left eye Besivance 0.6% Ophthalmic Suspension 11/13/2018 - 11/21/2018 Provider: Diagnosis: Ofloxacin 0.3% Ophthalmic Solution 10/02/2018 - 11/21/2018 P rovider: Bird Torres DO Diagnosis: Corneal transplant s tatus one drop twice a day in the left eye Pred Forte 1% Ophthalmic Suspension 10/02/2018 - 12/03/2018 Provider: Bird Torres DO Diagnosis: Corneal transplant s tatus one drop four times a day in the left eye Ofloxacin 0.3% Ophthalmic Solution 07/23/2018 - 10/02/2018 P rovider: Bird Torres DO Diagnosis: Corneal transplant s tatus one drop four times a day in the left eye Levothyroxine 112 mg Oral Tablet 06/25/2018 - 12/03/2018 Pro vider: Diagnosis: Pred Forte 1% Ophthalmic Suspension 06/21/2018 - 10/02/2018 Provider: Bird Torres DO Diagnosis: Other specified diso rders of cornea, left eye one drop four times a day in the left eye Cyclopentolate HCl 1% Ophthalmic Solution 06/21/2018 - 06/25 Provider: Bird Torres DO Diagnosis: Recurrent erosion of cornea, left eye One drop three times a day in the left eye Ofloxacin 0.3% Ophthalmic Solution 06/21/2018 - 11/13/2018 P rovider: Bird Torres DO Diagnosis: Corneal transplant s tatus one drop four times a day in the left eye Cyclopentolate HCl 1% Ophthalmic Solution 06/14/2018 - 06/21 Provider: Bird Torres DO Diagnosis: Recurrent erosion of cornea, left eye One drop three times a day in the left eye Cyclogyl 1% Ophthalmic Solution 06/14/2018 - 06/21/2018 Prov ider: Brid Torres DO Diagnosis: Recurrent erosion of cornea, left eye One drop three times a day in the left eye Vigamox 0.5% Ophthalmic Solution 05/31/2018 - 06/21/2018 Pro vider: Bird Torres DO Diagnosis: Other specified diso rders of cornea, left eye one drop four times a day in the left eye Pred Forte 1% Ophthalmic Suspension 05/31/2018 - 06/21/2018 Provider: Bird Torres DO Diagnosis: Other specified diso rders of cornea, left eye one drop four times a day in the left eye Besivance 0.6% Ophthalmic Suspension 05/15/2018 - 06/21/2018 Provider: Bird Torres DO Diagnosis: Recurrent erosion of cornea, left eye one drop once a day in the left eye Doxycycline Hyclate 20MG Oral Tablet 04/30/2018 - 11/21/2018 Provider: Bird Torres DO Diagnosis: Other specified diso rders of cornea, left eye twice a day Valtrex 500MG Oral Tablet 04/30/2018 - 06/21/2018 Provider: Bird Torres DO Diagnosis: Other specified diso rders of cornea, left eye twice a day Erythromycin 5MG/GM Ophthalmic Ointment 04/30/2018 - 019 Provider: Bird Torres DO Diagnosis: Other specified diso rders of cornea, left eye apply thin bead to left eye six times a day HumuLIN 70/30 (70-30) 100UNIT/ML Subcutaneous Suspensi on 04/24/2018 - 06/25/2018 Provider: Diagnosis: sliding scale Lantus 60MG Subcutaneous Injectable 04/24/2018 - 12/03/2018 Provider: Diagnosis: Levothyroxine 100MCG Oral Tablet 04/24/2018 - 06/25/2018 Pro vider: Diagnosis: Metoprolol Tartrate 100MG Oral Tablet 04/24/2018 - 1 Provider: Diagnosis: Medications Administered Includes: Administered Medications in patient's chartNo Administered Medications Recorded Vital Signs Includes: Vital Signs from 12/20/2019 through 12/19/2020No Vital Signs Recorded For Specified Dates Results Includes: Results from 12/20/2019 through 12/19/2020No Results Recorded For Specified Dates History of Present Illness History of Present Illness not supported for this document typeNo History of Present Illness Recorded Social History Description Last Updated No consumption of alcohol 05/13/2020 No tobacco use 05/13/2020 Not using drugs 05/13/2020 Smoking status : Never smoker 05/13/2020 Tobacco non-user 04/20/2020 Not using alcohol 02/11/2020 Not a current smoker 02/12/2019 Never smoked 04/30/2018 Procedures and Surgical History Includes: Procedures from 12/20/2019 through 12/19/2020 Procedures Code Diagnosis Performing Provider Service Location Service Date Intermediate Eye Exam Established Patient 85763 Dry eye syndrome of bilateral lacrimal glands, Conjunctival concretions, right eye, 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, left eye Bird Santacruz MD [facility] 09/14/2020 Intermediate Eye Exam Established Patient 75253 Other mucopurulent conjunctivitis, right eye Reilly Burks MD, FACS Reilly Burks MD [facility] 09/02/2020 PROBING LACRIMAL CANALICULI W OR W/O IRRIGATION (Right Side) 62052 Acquired stenosis of right nasolacrimal duct Bird Julian [facility] 07/16/2020 Intermediate Eye Exam Established Patient 20658 Peripheral opacity of cornea, right eye, Conjunctival concretions, right eye, Dry eye syndrome of right lacrimal gland, 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, left eye Bird Santacruz MD [facility] 06/15/2020 Intermediate Eye Exam Established Patient 99012 Recurrent erosion of cornea, right eye, 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, left eye, Peripheral opacity of cornea, right eye, Conjunctival concretions, right eye Bird Santacruz MD [facility] 05/13/2020 Intermediate Eye Exam Established Patient 14816 Recurrent erosion of cornea, right eye, Peripheral opacity of cornea, right eye, Conjunctival concretions, right eye, 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, left eye Bird Santacruz MD [facility] 04/28/2020 Intermediate Eye Exam Established Patient 20839 Recurrent erosion of cornea, right eye, 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, left eye, Atrophy of globe, left eye, Squamous blepharitis right upper eyelid Bird Santacruz MD [facility] 04/20/2020 Intermediate Eye Exam Established Patient 84209 Recurrent erosion of cornea, right eye, 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, left eye, Atrophy of globe, left eye, Peripheral opacity of cornea, right eye Bird Santacruz MD [facility] 04/08/2020 Intermediate Eye Exam Established Patient 74824 Recurrent erosion of cornea, right eye, Dry eye syndrome of right lacrimal gland, Squamous blepharitis right upper eyelid Bird Santacruz MD [facility] 04/02/2020 Intermediate Eye Exam Established Patient 59967 Recurrent erosion of cornea, right eye, 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, left eye, Atrophy of globe, left eye, Dry eye syndrome of right lacrimal gland Bird Santacruz MD [facility] 03/23/2020 Intermediate Eye Exam Established Patient 95087 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, left eye, Recurrent erosion of cornea, right eye, Squamous blepharitis right upper eyelid, Atrophy of globe, left eye Reilly Burks MD, [facility] Reilly Burks MD [facility] 03/16/2020 Intermediate Eye Exam Established Patient 41849 Recurrent erosion of cornea, right eye, 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, left eye, Atrophy of globe, left eye Bird Santacruz MD [facility] 03/12/2020 Intermediate Eye Exam Established Patient 14342 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, left eye, Atrophy of globe, left eye, Dry eye syndrome of right lacrimal gland Bird Santacruz MD [facility] 02/11/2020 Intermediate Eye Exam Established Patient 83164 Atrophy of globe, left eye, 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, left eye Bird Santacruz MD [facility] 01/02/2020 Surgical History Last Updated Surgical / procedural history Gastropar esis 2017, CHF 2016, Gallbladder surgery 2007, Injections right eye by Dr. 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 Torres ~Arelis Flap Left Eye by Dr. Torres 01/20/2019, wears prosthesis 10/03/2019 History of cataract surgery Both Eyes 201204/30/2018 History of discission of secondary membr anous cataract of left eye by laser in August 2017 04/30/2018 Medical History Includes: Medical History in patient's chart Description Last Updated Recent change in medical history Cardioversion September 22 with Pacemaker 11/09/2020 History of the retina was abnormal 07/15/2020 History of diabetes mellitus Type 2 A1C 7.7 (may be i naccurate due to anemia) 05/13/2020 Reported medical history Non Hodkins Ly mphoma 2011, Diabetes, A-Fib 0058-1956, Gastroparesis 2017, CHF 2015, Squamous Cell Skin Cancer 2017, Pulmonary Fibrosis [id number], Sleep Apnea, Anxiety, Anemia 05/13/2020 Currently wearing eyeglasses 04/30/2018 History of arthritis 04/30/2018 History of hyperlipidemia 04/30/2018 History of hypertension 04/30/2018 Family History Includes: Family History in patient's chart Description Last Updated Daughter's history of diabetes mellitus 05/13/2020 Daughter's history of hypertension 05/13/2020 Daughter's history of thyroid disorder 05/13/2020 Fraternal history of arthritis 05/13/2020 Fraternal history of diabetes mellitus 05/13/2020 Fraternal history of hypertension 05/13/2020 Fraternal history of stroke/cerebrovascular accident 0 05/13/2020 Maternal history of arthritis 05/13/2020 Maternal history of cataract 05/13/2020 Maternal history of diabetes mellitus 05/13/2020 Maternal history of hypertension 05/13/2020 Paternal history of arthritis 05/13/2020 Paternal history of cataract 05/13/2020 Paternal history of diabetes mellitus 05/13/2020 Paternal history of heart disease 05/13/2020 Paternal history of hypertension 05/13/2020 Son's history of diabetes mellitus 05/13/2020 Son's history of hypertension 05/13/2020 Sororal history of arthritis 05/13/2020 Sororal history of cataract 05/13/2020 Sororal history of diabetes mellitus 05/13/2020 Sororal history of hypertension 05/13/2020 Review of Systems Review of Systems not supported for this document typeNo Review of Systems Recorded Mental Status Mental Status not supported for this document type Description Oriented to time, place, and person Anxiety Functional Status Functional Status not supported for this document typeNo Functional Status Recorded Physical Exam Physical Exam not supported for this document typeNo Physical Exam Recorded Immunizations Includes: Immunizations in patient's chartNo Immunizations Recorded Allergies Includes: Active, inactive, and resolved Allergies Substance Type Reaction Onset Date - Time Resolved Date - Ti me Status Lisinopril Allergy 04/24/2018 - 12:00AM Acti ve Januvia Allergy 04/24/2018 - 12:00AM Acti ve Amiodarone HCl Allergy 04/24/2018 - 12:00AM Active Encounters Includes: Encounters from 12/20/2019 through 12/19/2020 Encounter Provider Location Date Check-In Time Check-Out Time D iagnosis TRIAGE NON URGENT Bird Santacruz MD [facility] 9:15AM 11:09AM Hypotony of Eye, Conjunctiva l Concretions, Blepharitis Squamous, Dry Eye Syndrome Right Eye, Phthisis Bulbi Left Eye, Corneal Opacity 2 Month Follow up Bird Santacruz MD [facility] 7:16AM 8:10AM Hypotony of Eye, Conjunctiva l Concretions, Blepharitis Squamous, Dry Eye Syndrome Right Eye, Phthisis Bulbi Left Eye, Corneal Opacity TRIAGE NON URGENT Reilly Burks MD, FACS Reilly Burks MD [facility] 09/02/2020 7:16AM 7:58AM Lacrimal Stenosis Na solacrimal Duct Acquired, Conjunctivitis Acute Bacterial LACRIMAL IRRIGATION & PROBING IN OFFICE Global 1 0 day Bird Santacruz MD [facility] 07/16/2020 7:25AM 8:13AM Con junctival Concretions, Hypotony of Eye, Blepharitis Squamous, Dry Eye Syndrome Right Eye, Phthisis Bulbi Left Eye, Corneal Opacity, Lacrimal Stenosis Nasolacrimal Duct Acquired 1 Month Follow-Up Bird Santacruz MD [facility] 7:16AM 8:00AM Hypotony of Eye, Conjunctiva l Concretions, Blepharitis Squamous, Dry Eye Syndrome Right Eye, Phthisis Bulbi Left Eye, Corneal Opacity, Epiphora Due To Excess Lacrimation 2 Week Follow-Up Bird Santacruz MD [facility] 04/24 7:16AM 8:11AM Hypotony of Eye, Corneal Deg eneration Recurrent Erosion, Conjunctival Concretions, Blepharitis Squamous, Dry Eye Syndrome Right Eye, Phthisis Bulbi Left Eye, Corneal Opacity 1 Week Follow-Up Bird Santacruz MD [facility] 09/2020 7:30AM 8:23AM Hypotony of Eye, Corneal Deg eneration Recurrent Erosion, Blepharitis Squamous, Dry Eye Syndrome Right Eye, Phthisis Bulbi Left Eye, Corneal Opacity, Conjunctival Concretions 1 Week Follow-Up Bird Santacruz MD [facility] 03/24 7:26AM 8:52AM Hypotony of Eye, Corneal Deg eneration Recurrent Erosion, Blepharitis Squamous, Dry Eye Syndrome Right Eye, Phthisis Bulbi Left Eye, Corneal Opacity 1 Week Follow-Up Bird Santacruz MD [facility] 03/23 7:40AM 8:50AM Hypotony of Eye, Corneal Deg eneration Recurrent Erosion, Blepharitis Squamous, Dry Eye Syndrome Right Eye, Phthisis Bulbi Left Eye, Corneal Opacity 1 Week Follow-Up Bird Santacruz MD [facility] 03/23 7:28AM 8:11AM Corneal Degeneration Recurre nt Erosion, Hypotony of Eye, Blepharitis Squamous, Dry Eye Syndrome Right Eye, Phthisis Bulbi Left Eye Rx Refills/Changes Bird Torres DO 03/29/2020 020 4:21PM 03/23/2020 11:59PM 1 Week Follow-Up Bird Santacruz MD [facility] 04/2019 7:27AM 8:22AM Hypotony of Eye, Corneal Deg eneration Recurrent Erosion, Blepharitis Squamous, Dry Eye Syndrome Right Eye, Phthisis Bulbi Left Eye 3day followup Reilly Burks MD, [facility] Reilly Burks MD [facility] 03/16/2020 8:11AM 8:54AM Hypotony of Eye, Corneal Deg eneration Recurrent Erosion, Blepharitis Squamous, Dry Eye Syndrome Right Eye, Phthisis Bulbi Left Eye 1 Month Follow-Up Bird Santacruz MD [facility] 7:47AM 8:53AM Hypotony of Eye, Blepharitis Squamous, Dry Eye Syndrome Right Eye, Phthisis Bulbi Left Eye, Corneal Degeneration Recurrent Erosion 6 Week Follow-Up Bird Santacruz MD [facility] 01/22 8:00AM 9:56AM Hypotony of Eye, Blepharitis Squamous, Dry Eye Syndrome Right Eye, Phthisis Bulbi Left Eye 6 Week Follow-Up Bird Santacruz MD [facility] 12/22 8:21AM 9:17AM Hypotony of Eye, Blepharitis Squamous, Phthisis Bulbi Left Eye, Dry Eye Syndrome Right Eye Insurance Includes: Active Insurance Policies Plan Name Member ID Group # Subscriber Relationship Effective Da guerrero 1 - Medicare Part [facility] ([facility]) [id number] Annmarie Oneal 2 - [facility] [id number] Judy Oneal Advance Directives Includes: Current Advance DirectivesNo Advance Directives Recorded Health Concerns Includes: Active Health ConcernsNo Active Health Concerns Recorded Goals Includes: Active GoalsNo Active Goals Recorded Interventions Includes: Interventions for active GoalsNo Interventions Recorded Evaluations & Outcomes Includes: Evaluations & Outcomes for active GoalsNo Outcomes Recorded
--- OUTSIDE RECORDS SUMMARY | 2021-02-04 11:32 | CCD ---
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 Name Role Phone Henny PENA, Irais Blandon PP [phone] Brian WEEKS, Bird Unavailable [phone] Reason for Referral No Reason for Referral [...] 11/18/2019 Corneal pannus 2 Week Follow-Up with Bird Jordanstein DO 10/22/2019 Recurrent corneal erosion 2 [...] Corneal transplant status 1 Week Follow-Up with Bidr schmidt DO 07/09/2018 Corneal transplant status 1 [...] a day in the right eye Polytrim 59274-6.1 UNIT/ML-% Ophthalmic Solution 03/12/2020 - 04/20/2020 Provider: [...] Ophthalmic Solution 10/02/2018 - 11/21/2018 P rovider: Bidr Torres DO Diagnosis: Corneal transplant s tatus [...] Ophthalmic Solution 06/14/2018 - 06/21/2018 Prov ider: Bird Torres DO Diagnosis: Recurrent erosion of [...] Recorded Vital Signs Includes: Vital Signs from 12/28/2019 through 12/27/2020No Vital Signs Recorded For Specified Dates Results Includes: Results from 12/28/2019 through 12/27/2020No Results Recorded For Specified Dates History of Present Illness History of Present Illness not supported for this document typeNo History of Present Illness Recorded Social History Description Last Updated No consumption of alcohol 09/02/2020 No tobacco use 09/02/2020 Not using drugs 09/02/2020 Smoking status : Never smoker 09/02/2020 Tobacco non-user 04/20/2020 Not using alcohol 02/11/2020 Not a current smoker 02/12/2019 Never smoked 04/30/2018 Procedures and Surgical History Includes: Procedures from 12/28/2019 through 12/27/2020 Procedures Code Diagnosis Performing Provider Service Location Service Date Intermediate Eye Exam Established Patient 10319 Dry eye syndrome of bilateral lacrimal glands, Conjunctival concretions, right eye, 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, left eye Bird Santacruz MD [facility] 09/14/2020 Intermediate Eye Exam Established Patient 05282 Other mucopurulent conjunctivitis, right eye Reilly Burks MD, FACS Reilly Burks MD [facility] 09/02/2020 PROBING LACRIMAL CANALICULI W OR W/O IRRIGATION (Right Side) 97532 Acquired stenosis of right nasolacrimal duct Bird Julian [facility] 07/16/2020 Intermediate Eye Exam Established Patient 24954 Peripheral opacity of cornea, right eye, Conjunctival concretions, right eye, Dry eye syndrome of right lacrimal gland, 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, left eye Bird Santacruz MD [facility] 06/15/2020 Intermediate Eye Exam Established Patient 37793 Recurrent erosion of cornea, right eye, 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, left eye, Peripheral opacity of cornea, right eye, Conjunctival concretions, right eye Bird Santacruz MD [facility] 05/13/2020 Intermediate Eye Exam Established Patient 90274 Recurrent erosion of cornea, right eye, Peripheral opacity of cornea, right eye, Conjunctival concretions, right eye, 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, left eye Bird Santacruz MD [facility] 04/28/2020 Intermediate Eye Exam Established Patient 96325 Recurrent erosion of cornea, right eye, 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, left eye, Atrophy of globe, left eye, Squamous blepharitis right upper eyelid Bird Santacruz MD [facility] 04/20/2020 Intermediate Eye Exam Established Patient 92643 Recurrent erosion of cornea, right eye, 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, left eye, Atrophy of globe, left eye, Peripheral opacity of cornea, right eye Bird Santacruz MD [facility] 04/08/2020 Intermediate Eye Exam Established Patient 87014 Recurrent erosion of cornea, right eye, Dry eye syndrome of right lacrimal gland, Squamous blepharitis right upper eyelid Bird Santacruz MD [facility] 04/02/2020 Intermediate Eye Exam Established Patient 03527 Recurrent erosion of cornea, right eye, 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, left eye, Atrophy of globe, left eye, Dry eye syndrome of right lacrimal gland Bird Santacruz MD [facility] 03/23/2020 Intermediate Eye Exam Established Patient 54562 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, left eye, Recurrent erosion of cornea, right eye, Squamous blepharitis right upper eyelid, Atrophy of globe, left eye Reilly Burks MD, [facility] Reilly Burks MD [facility] 03/16/2020 Intermediate Eye Exam Established Patient 29399 Recurrent erosion of cornea, right eye, 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, left eye, Atrophy of globe, left eye Bird Santacruz MD [facility] 03/12/2020 Intermediate Eye Exam Established Patient 71046 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, left eye, Atrophy of globe, left eye, Dry eye syndrome of right lacrimal gland Bird Santacruz MD [facility] 02/11/2020 Intermediate Eye Exam Established Patient 08724 Atrophy of globe, left eye, 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, left eye Bird Santacruz MD [facility] 01/02/2020 Surgical History Last Updated Surgical / procedural history Gastropar esis 2017, CHF 2016, Gallbladder surgery 2007, Injections right eye by Dr. Hoover every 10 weeks, Endoscopic DCR w/ Dr. 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 Torres ~Arelis Flap Left Eye by Dr. Torres 01/20/2019, wears prosthesis 10/03/2019 History of cataract surgery Both Eyes 201204/30/2018 History of discission of secondary membr anous cataract of left eye by laser in August 2017 04/30/2018 Medical History Includes: Medical History in patient's chart Description Last Updated History of the retina was abnormal 07/15/2020 Recent change in medical history Endoscopic DCR w/ Dr Jose Luis Webb on 08/25/20 09/02/2020 History of diabetes mellitus Type 2 A1C 7.7 (may be i naccurate due to anemia) 05/13/2020 Reported medical history Non Hodkins Ly mphoma 2011, Diabetes, A-Fib 9671-7030, Gastroparesis 2017, CHF 2015, Squamous Cell Skin Cancer 2017, Pulmonary Fibrosis 2302-5925, Sleep Apnea, Anxiety, Anemia 05/13/2020 Currently wearing eyeglasses 04/30/2018 History of arthritis 04/30/2018 History of hyperlipidemia 04/30/2018 History of hypertension 04/30/2018 Family History Includes: Family History in patient's chart Description Last Updated Daughter's history of diabetes mellitus 09/02/2020 Daughter's history of hypertension 09/02/2020 Daughter's history of thyroid disorder 09/02/2020 Fraternal history of arthritis 09/02/2020 Fraternal history of diabetes mellitus 09/02/2020 Fraternal history of hypertension 09/02/2020 Fraternal history of stroke/cerebrovascular accident 0 09/02/2020 Maternal history of arthritis 09/02/2020 Maternal history of cataract 09/02/2020 Maternal history of diabetes mellitus 09/02/2020 Maternal history of hypertension 09/02/2020 Paternal history of arthritis 09/02/2020 Paternal history of cataract 09/02/2020 Paternal history of diabetes mellitus 09/02/2020 Paternal history of heart disease 09/02/2020 Paternal history of hypertension 09/02/2020 Son's history of diabetes mellitus 09/02/2020 Son's history of hypertension 09/02/2020 Sororal history of arthritis 09/02/2020 Sororal history of cataract 09/02/2020 Sororal history of diabetes mellitus 09/02/2020 Sororal history of hypertension 09/02/2020 Review of Systems Review of Systems not [...] - 12:00AM Active Encounters Includes: Encounters from 12/28/2019 through 12/27/2020 Encounter Provider Location Date Check-In Time Check-Out Time D iagnosis TRIAGE NON URGENT Bird Santacruz MD [facility] 9:15AM 11:09AM Hypotony of Eye, Conjunctiva l Concretions, Blepharitis Squamous, Dry Eye Syndrome Right Eye, Phthisis Bulbi Left Eye, Corneal Opacity 2 Month Follow up Bird Santacruz MD [facility] 7:16AM 8:10AM Hypotony of Eye, Conjunctiva l Concretions, Blepharitis Squamous, Dry Eye Syndrome Right Eye, Phthisis Bulbi Left Eye, Corneal Opacity TRIAGE NON URGENT Reilly Burks MD, FACS Reilly Burks MD [facility] 09/02/2020 7:16AM 7:58AM Lacrimal Stenosis Na solacrimal Duct Acquired, Conjunctivitis Acute Bacterial LACRIMAL IRRIGATION & PROBING IN OFFICE Global 1 0 day Bird Santacruz MD [facility] 07/16/2020 7:25AM 8:13AM Con junctival Concretions, Hypotony of Eye, Blepharitis Squamous, Dry Eye Syndrome Right Eye, Phthisis Bulbi Left Eye, Corneal Opacity, Lacrimal Stenosis Nasolacrimal Duct Acquired 1 Month Follow-Up Bird Santacruz MD [facility] 7:16AM 8:00AM Hypotony of Eye, Conjunctiva l Concretions, Blepharitis Squamous, Dry Eye Syndrome Right Eye, Phthisis Bulbi Left Eye, Corneal Opacity, Epiphora Due To Excess Lacrimation 2 Week Follow-Up Bird Santacruz MD [facility] 04/24 7:16AM 8:11AM Hypotony of Eye, Corneal Deg eneration Recurrent Erosion, Conjunctival Concretions, Blepharitis Squamous, Dry Eye Syndrome Right Eye, Phthisis Bulbi Left Eye, Corneal Opacity 1 Week Follow-Up Bird Santacruz MD [facility] 09/2020 7:30AM 8:23AM Hypotony of Eye, Corneal Deg eneration Recurrent Erosion, Blepharitis Squamous, Dry Eye Syndrome Right Eye, Phthisis Bulbi Left Eye, Corneal Opacity, Conjunctival Concretions 1 Week Follow-Up Bird Santacruz MD [facility] 03/24 7:26AM 8:52AM Hypotony of Eye, Corneal Deg eneration Recurrent Erosion, Blepharitis Squamous, Dry Eye Syndrome Right Eye, Phthisis Bulbi Left Eye, Corneal Opacity 1 Week Follow-Up Bird Santacruz MD [facility] 03/23 7:40AM 8:50AM Hypotony of Eye, Corneal Deg eneration Recurrent Erosion, Blepharitis Squamous, Dry Eye Syndrome Right Eye, Phthisis Bulbi Left Eye, Corneal Opacity 1 Week Follow-Up Bird Santacruz MD [facility] 03/23 7:28AM 8:11AM Corneal Degeneration Recurre nt Erosion, Hypotony of Eye, Blepharitis Squamous, Dry Eye Syndrome Right Eye, Phthisis Bulbi Left Eye Rx Refills/Changes Bird Torres DO 03/29/2020 020 4:21PM 03/23/2020 11:59PM 1 Week Follow-Up Bird Santacruz MD [facility] 04/2019 7:27AM 8:22AM Hypotony of Eye, Corneal Deg eneration Recurrent Erosion, Blepharitis Squamous, Dry Eye Syndrome Right Eye, Phthisis Bulbi Left Eye 3day followup Reilly Burks MD, FACS Reilly Burks MD [facility] 03/16/2020 8:11AM 8:54AM Hypotony of Eye, Corneal Deg eneration Recurrent Erosion, Blepharitis Squamous, Dry Eye Syndrome Right Eye, Phthisis Bulbi Left Eye 1 Month Follow-Up Bird Santacruz MD [facility] 7:47AM 8:53AM Hypotony of Eye, Blepharitis Squamous, Dry Eye Syndrome Right Eye, Phthisis Bulbi Left Eye, Corneal Degeneration Recurrent Erosion 6 Week Follow-Up Bird Santacruz MD [facility] 01/22 8:00AM 9:56AM Hypotony of Eye, Blepharitis Squamous, Dry Eye Syndrome Right Eye, Phthisis Bulbi Left Eye 6 Week Follow-Up Bird Santacruz MD [facility] 12/22 8:21AM 9:17AM Hypotony of Eye, Blepharitis Squamous, Phthisis Bulbi Left Eye, Dry Eye Syndrome Right Eye Insurance Includes: Active Insurance Policies Plan Name Member ID Group # Subscriber Relationship Effective Da guerrero 1 - Medicare Part [facility] ([facility]) [id number] Annmarie Oneal 2 - [facility] [id number] Judy Oneal Advance Directives Includes: Current Advance DirectivesNo Advance Directives Recorded Health Concerns Includes: Active Health ConcernsNo Active Health Concerns Recorded Goals Includes: Active GoalsNo Active Goals Recorded Interventions Includes: Interventions for active GoalsNo Interventions Recorded Evaluations & Outcomes Includes: Evaluations & Outcomes for active GoalsNo Outcomes Recorded
--- OUTSIDE RECORDS SUMMARY | 2021-02-04 11:32 | CCD ---
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 , face, 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 Active confirmed 53119972 Problem penitentiary (current) use of insulin Z79.4 Activ e confirmed 082941852 Problem Mixed hyperlipidemia E78.2 Active confirmed 908362996 Problem Chronic diastolic congestive heart failure I50.32 Active confirmed 082505966 Problem 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.43 Active confirmed 363060602 Problem Gastroparesis K31.84 Active confirmed 111474 006 Problem 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 Active confirmed 637296672 Problem Pulmonary fibrosis J84.10 Active confirmed 5 6528800 Problem Visual loss H54.7 Active confirmed 27655115 3 Problem Obesity, unspecified obesity severity, unspecified obe sity type E66.9 Active confirmed 836167504 Problem Chronic systolic (congestive) heart failure I50.22 Active confirmed 616210863 Problem Hypothyroidism (acquired) E03.9 Active confirmed 324073140 Problem Hypertensive kidney disease I12.9 Active confirmed 67894439 Problem Basal cell carcinoma (BCC) of skin of nose C44.311 Active confirmed 079704656 ALLERGIES Allergen (clinical drug ingredient) Drug/Non Drug Allergy do cumented on EMR Reaction Allergy Type Onset Date Status azithromycin Azithromycin([facility] Code:[address]-13) Rash Drug All ergy Active amiodorone toxicity Non Drug Allergy Active Lisinopril lisinopril cough Non Drug Allergy Active sitagliptin Januvia([facility] Code:[address]-27) Rash Drug Allergy Active ENCOUNTERS from 1945 to 2021-01-05 Encounter Location Date Provider Diagnosis [place] [id number] [facility] [phone] [place] [address] 13 Dec, 2020 Irais Skipton Cough R05 ; GALLEGOS (dyspnea on exertion) R06.00 ; Chronic systolic (congestive) heart failure I50.22 and Chronic diastolic congestive heart failure I50.32 IMMUNIZATIONS Vaccine Route Administration Date Status Influenza [...] Intramuscular Feb 15, 2016 A dministered TD Adult 0.5mL Tetanus Unknown May 13, [...] Education Language: Question Answer Notes Languages spoken: Uzbek Voodoo: Question Answer Notes Voodoo 24 [facility] Sexual Hx: Question Answer Notes Had sex [...] FOR REFERRAL No Information VITAL SIGNS Weight 177 lbs Dec, Height 60.5 in Dec, BMI 34.00 kg/m2 Dec, Heart Rate 78 /min Dec, Respiratory Rate 20 /min Dec, Temperature 97 degrees Fahrenheit Dec, Oximetry 97 Dec, Blood pressure systolic 120 mm Hg Dec, Blood pressure diastolic 70 mm Hg Dec, MEDICATIONS Medication SIG (Take, Route, Frequency, Duration) Notes Start Da te End Date Status Flonase 50 MCG/ACT 1 spray in each nostril Nasa lly Once a day, as needed for 90 days PRN Active Trulicity 1.5 MG/0.5ML as directed Subcutaneous Active HumaLOG 100 UNIT/ML per SS Subcutaneous TID AC Dr. Bansal rx Active Chlorthalidone 25 MG 1 tablet in the morning with food Orally Once a day for 30 day(s) Active Bisoprolol Fumarate 10 MG 1 tablet Orally Once a day Active Levothyroxine Sodium 137 MCG 1 tablet in the morning o n an empty stomach Orally Once a day for 30 day(s) Nov, Active Losartan Potassium 25 MG 1 tablet Orally Once a day Apr Active Toujeo SoloStar 300 UNIT/ML [address] Bansal rx Active Omeprazole 40 MG 1 capsule Orally Once a day Dec, Active Cefpodoxime Proxetil 200 MG 1 tablet with food Orally Twice a da y Nov, Not-Taking Calcium 250 MG as directed Orally Ac tive Eliquis 5 mg Orally twice daily cardiology Act danielle Folic Acid 1 MG 1 tablet Orally Once a day Apr, Active Digoxin 125 MCG 1 tablet Orally Once a day Active Spironolactone 25 mg 0.5 tablet Orally Daily Dec, Active Doxycycline Hyclate 100 MG 1 tablet Orally every 12 hrs Nov, Not-Taking Methotrexate Sodium 2.5 MG 4 tablets as directed Orally Once paige philippe Apr, Active glipiZIDE 10 MG 1 tablet 30 minutes before breakfast Orally twice wali ly Active Cardizem 60 MG as directed Orally daily Active Lipitor 80 MG 1 tablet Orally Once a day Active Restasis 0.05 % 1 drop into affected eye Ophthalmic Twice a day Active PROCEDURES No Information RESULTS Component Value Reference Range WATSON COVID AG (Point of Care) Reviewed date:01/03/2021 13:35:42 Interpretation: Performing Lab:[facility], [facility] INTERFACE [address] [address] , ,[facility] [place] COVID ANTIGEN NEGATIVE NEGATIVE NT-PRO BNP Reviewed date:01/04/2021 07:03:27 Interpretation: Performing Lab:[facility], [facility] LABORATORY [address] [address] , ,[place] [address] NT-PRO BNP 1094 <125 CBC with Differential Reviewed date:01/04/2021 07:03:03 Interpretation: Performing Lab:[facility] LABORATORY [address] [address] , ,[facility]01 WHITE BLOOD COUNT 12.2 4.0-10.0 RED BLOOD COUNT 4.31 4.00-5.40 HEMOGLOBIN 13.1 12.0-15.5 HEMATOCRIT 39.7 36.0-47.0 MEAN CORPUSCULAR VOLUME 92.1 80.0-96.0 MEAN CORPUSCULAR HEMOGLOBIN 30.4 27.0-33.0 MEAN CORPUSCULAR HGB CONC 33.0 32.0-36.5 RED CELL DISTRIBUTION WIDTH 14.2 11.5-14.5 PLATELET COUNT, AUTOMATED 263 150-450 NEUTROPHILS % 51.3 36.0-66.0 LYMPH % 36.7 24.0-44.0 MONO % 8.1 2.0-8.0 EOS % 2.8 0.0-3.0 BASO % 0.6 0.0-1.0 NEUTROPHILS # 6.3 1.5-8.5 LYMPH # 4.5 1.5-5.0 MONO # 1.0 0.0-0.8 EOS # 0.3 0.0-0.5 BASO # 0.1 0.0-0.2 Basic Metabolic Profile (BMP) Reviewed date:01/04/2021 07:03:16 Interpretation: Performing Lab:[facility], [facility] [id number] , ,[place] [address] GLUCOSE, FASTING 282 70-100 BLOOD UREA NITROGEN 22 7-18 CREATININE FOR GFR 1.20 0.55-1.30 GLOMERULAR FILTRATION RATE 46.9 >39 SODIUM LEVEL 138 136-145 POTASSIUM SERUM 4.4 3.5-5.1 CHLORIDE LEVEL 105 98-107 CARBON DIOXIDE LEVEL 28 21-32 CALCIUM LEVEL 9.0 8.8-10.2 REASON FOR VISIT cough/SOB MEDICAL (GENERAL) HISTORY Type Description Date Medical History [facility] Oncology Medical History HTN Medical History Hypothyroidism Medical History Hyperlipidemia Medical History Type 2 IDDM: Dr. Fauzia Bansal Medical History GERD Medical History DEVEN - uses CPAP; Dr. Slade Medical History H/o asthma Medical History Pulmonary fibrosis Medical History Macular degeneration - Dr. German Medical History Cataracts, left eye infection - Dr. Lopez delgadillo Medical History Atrial fibrillation/atrial flutter: [facility]: Dr. Kulkarni Medical History 03/2015 ECHO: [...] Left eye surgery - [facility] Surgical History left total knee replacment [...] Treatment Notes Treatm ent Clinical Notes Dec, Cough (ICD-10 - R05) Ddx: pneumonia vs. fluid overload vs viral infection Dec, GALLEGOS (dyspnea on exertion) (ICD-10 - R06.00) Patient has visibile GALLEGOS with walking though O2 sat remains within an acceptable range. She also states HR is intermittently rapid (though not during visit today) and she gets dizzy at times. I recommended ED evaluation for GALLEGOS and intermittent afib; she declines ED evaluation because she feels strongly she has recurrence of pneumonia and wants to get CXR to assess for this first. She will get stat CXR now and bloodwork now. _update: see TE from today; patient directed to ED for negative CXR and concern for ischemia and/or dysrhythmia and she agreed to go Dec, Chronic systolic (congestive) heart failure (ICD -10 - I50.22) No evidence of fluid overload, weight is stable. Check CXR. Dec, Chronic diastolic congestive heart failure (ICD- 10 - I50.32) PLAN OF TREATMENT Treatment Notes Assessment Notes Clinical Notes Cough Ddx: pneumonia vs. f luid overload vs viral infection GALLEGOS (dyspnea on exertion) Patient has vi sibile GALLEGOS with walking though O2 sat remains within an acceptable range. She also states HR is intermittently rapid (though not during visit today) and she gets dizzy at times. I recommended ED evaluation for GALLEGOS and intermittent afib; she declines ED evaluation because she feels strongly she has recurrence of pneumonia and wants to get CXR to assess for this first. She will get stat CXR now and bloodwork now._update: see TE from today; patient directed to ED for negative CXR and concern for ischemia and/or dysrhythmia and she agreed to go Chronic systolic (congestive) heart failure No evidence of fluid overload, weight is stable. Check CXR. Future Test Test Name Order Date NT-PRO BNP 20210103 CBC with Differential 20210103 Basic Metabolic Profile (BMP) 20210103 [facility] Chest, 2 view (PA\Lat) 20210103 Next Appt Details as sched Reason: Provider Name:Kathie Kailash, 03:45:00 PM, [address] [place] [address], , [place], [place], [facility] [phone] Provider Name:Irais Blandon Jesusvenus, 2021-06-13 11:45:00 AM, [address] [place] [address] , [place], [address] Insurance Providers Payer Name Payer Address Payer Phone Insured Name Patient Relati onship to Insured Coverage Start Date Coverage End Date [employer] [facility] CLAIM DIV [address] [facility] [address] LISA DIAMOND MEDICARE Part A and B [address] [facility] [address] [phone] LISA DIAMOND
--- OUTSIDE RECORDS SUMMARY | 2021-02-04 11:32 | CCD ---
Author Author [facility] Organization 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 Active confirmed 67282307 Problem carbider (current) use of insulin Z79.4 Activ e confirmed 118418404 Problem Mixed hyperlipidemia E78.2 Active confirmed 132047836 Problem Chronic diastolic congestive heart failure I50.32 Active confirmed 215277191 Problem 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.43 Active confirmed 599270159 Problem Gastroparesis K31.84 Active confirmed 826532 006 Problem 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 Active confirmed 610054526 Problem Pulmonary fibrosis J84.10 Active confirmed 5 1072169 Problem Visual loss H54.7 Active confirmed 74986776 3 Problem Obesity, unspecified obesity severity, unspecified obe sity type E66.9 Active confirmed 614254915 Problem Chronic systolic (congestive) heart failure I50.22 Active confirmed 022351146 Problem Hypothyroidism (acquired) E03.9 Active confirmed 359525719 Problem Hypertensive kidney disease I12.9 Active confirmed 91150192 Problem Basal cell carcinoma (BCC) of skin of nose C44.311 Active confirmed 355769497 ALLERGIES Allergen (clinical drug ingredient) Drug/Non Drug Allergy do cumented on EMR Reaction Allergy Type Onset Date Status azithromycin Azithromycin([facility] Code:[address]-96) Rash Drug All ergy Active amiodorone toxicity Non Drug Allergy Active Lisinopril lisinopril cough Non Drug Allergy Active sitagliptin Januvia([facility] Code:[address]-35) Rash Drug Allergy Active ENCOUNTERS from 1945 to 2021-01-04 Encounter Location Date Provider Diagnosis [facility] [phone] [place] [address] 13 Dec, 2020 Irais Inman IMMUNIZATIONS Vaccine Route Administration Date Status COVID-19 [...] Education Language: Question Answer Notes Languages spoken: British Lutheran: Question Answer Notes Lutheran 24 Rastafarian Sexual Hx: Question Answer Notes Had sex [...] directed Orally Once wee kly Apr, Active glipiZIDE 10 MG 1 tablet 30 minutes before breakfast Orally twice wali ly Active Cardizem 60 MG as directed Orally daily Active Lipitor 80 MG 1 tablet Orally Once a day Active Restasis 0.05 % 1 drop into affected eye Ophthalmic Twice a day Active PROCEDURES No Information RESULTS No Results REASON FOR VISIT CXR MEDICAL (GENERAL) HISTORY Type Description Date Medical 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 Fauzia Bansal Medical History GERD Medical History DEVEN - uses CPAP; Dr. Slade Medical History H/o asthma Medical History Pulmonary fibrosis Medical History Macular degeneration - Dr. German Medical History Cataracts, left eye infection - Dr. Lopez delgadillo Medical History Atrial fibrillation/atrial flutter: [facility]: Dr. Kulkarni Medical History 03/2015 ECHO: EF 50-55%. Gra de 2Diastolic dysfunction. Sclerotic aortic valve without stenosis Medical History Gastroparesis Medical History BCC of left face - removed by Mohrebecca ferguson Medical History Left knee OA - [...] Information ASSESSMENTS No Information PLAN OF TREATMENT Next Appt Details Provider Name:Kathie Linder, 03:45:00 PM, [address] [facility], , [place], [address], Provider Name:Irais Inman, 2021-06-13 11:45:00 AM, [address] [facility], , [place], [address], Insurance Providers Payer Name Payer Address Payer Phone Insured Name Patient Relati onship to Insured Coverage Start Date Coverage End Date MEDICARE Part A and B [address] [facility] [phone] LISA DIAMOND [facility] [employer] [facility] CLAIM DIV [address] [facility] [id number] LISA DIAMOND self
--- OUTSIDE RECORDS SUMMARY | 2021-02-04 11:32 | CCD | Continuity of Care Document ---
Author Author Judy MAY MD Organization Unknown Address [address] [place] [address], [address] [place] [address] Phone [phone] Care Team Providers Care Market Research Specialist Name Role Phone Shantal Kulkarni MD AUTM [phone] Irais Inman MD AUTM [phone] Problems Description No Information Available Social History [...] by mouth every day Unknown Calcium-Vitamin D3 [id number] Tablets Unknown Chlorthalidone 25mg Tablets 1 by [...] Available Procedures Date Code Description Status 01/06/2021 95469 Office/Outpatient New High MDM 6 0-74 Minutes Completed Medical Devices Description No Information Available Encounters Type Date Location Provider Dx Diagnosis Office Visit 01/06/2021 4:00p [facility] Crow Arguello MD I48.0 Paroxysmal atrial fibrillation Assessments Date Code Description Provider 01/06/2021 I48.0 Paroxysmal atrial fibrillation M tyrell Arguello MD Plan of Treatment 01/06/2021 - Crow Arguello MD* I48.0 Paroxysmal atrial fibrillation* Recommendations:* Functional Status Description No Information Available Mental Status Description No Information Available Referrals Description No Information Available
--- OUTSIDE RECORDS SUMMARY | 2021-02-04 11:32 | CCD ---
Author Author Reilly Burks MD [facility] Organization Reilly Burks MD [facility] Address [address] [place] [address] Phone Care Team Providers Care Incubator Operator Name Role Phone Henny PENA, Irais Blandon PP [phone] Brian WEEKS, Bird Unavailable [phone] Reason for Referral No Reason for Referral [...] Corneal opacity 2 Week Follow-Up with Bird Brina DO 05/13/2020 Dry eye syndrome of the [...] edema 10 - 14 Day Follow-Up with Bidr Kraig villasenor DO 05/28/2018 Acute atopic conjunctivitis [...] a day in the right eye Polytrim 37967-1.1 UNIT/ML-% Ophthalmic Solution 03/12/2020 - 04/20/2020 Provider: [...] Recorded Vital Signs Includes: Vital Signs from 01/13/2020 through 01/12/2021No Vital Signs Recorded For Specified Dates Results Includes: Results from 01/13/2020 through 01/12/2021No Results Recorded For Specified Dates History of Present Illness History of Present Illness not supported for this document typeNo History of Present Illness Recorded Social History Description Last Updated Tobacco non-user 04/20/2020 No consumption of alcohol 03/16/2020 No tobacco use 03/16/2020 Not using drugs 03/16/2020 Smoking status : Never smoker 03/16/2020 Not using alcohol 02/11/2020 Not a current smoker 02/12/2019 Never smoked 04/30/2018 Procedures and Surgical History Includes: Procedures from 01/13/2020 through 01/12/2021 Procedures Code Diagnosis Performing Provider Service Location Service Date Intermediate Eye Exam Established Patient 42626 Dry eye syndrome of bilateral lacrimal glands, Conjunctival concretions, right eye, 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, left eye Bird Santacruz MD [facility] 09/14/2020 Intermediate Eye Exam Established Patient 63842 Other mucopurulent conjunctivitis, right eye Reilly Burks MD, FACS Reilly Burks MD [facility] 09/02/2020 PROBING LACRIMAL CANALICULI W OR W/O IRRIGATION (Right Side) 42164 Acquired stenosis of right nasolacrimal duct Bird Julian [facility] 07/16/2020 Intermediate Eye Exam Established Patient 10968 Peripheral opacity of cornea, right eye, Conjunctival concretions, right eye, Dry eye syndrome of right lacrimal gland, 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, left eye Bird Santacruz MD [facility] 06/15/2020 Intermediate Eye Exam Established Patient 06341 Recurrent erosion of cornea, right eye, 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, left eye, Peripheral opacity of cornea, right eye, Conjunctival concretions, right eye Bird Santacruz MD [facility] 05/13/2020 Intermediate Eye Exam Established Patient 65314 Recurrent erosion of cornea, right eye, Peripheral opacity of cornea, right eye, Conjunctival concretions, right eye, 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, left eye Bird Santacruz MD [facility] 04/28/2020 Intermediate Eye Exam Established Patient 38583 Recurrent erosion of cornea, right eye, 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, left eye, Atrophy of globe, left eye, Squamous blepharitis right upper eyelid Bird Santacruz MD [facility] 04/20/2020 Intermediate Eye Exam Established Patient 61275 Recurrent erosion of cornea, right eye, 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, left eye, Atrophy of globe, left eye, Peripheral opacity of cornea, right eye Bird Santacruz MD [facility] 04/08/2020 Intermediate Eye Exam Established Patient 98991 Recurrent erosion of cornea, right eye, Dry eye syndrome of right lacrimal gland, Squamous blepharitis right upper eyelid Bird Santacruz MD [facility] 04/02/2020 Intermediate Eye Exam Established Patient 09304 Recurrent erosion of cornea, right eye, 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, left eye, Atrophy of globe, left eye, Dry eye syndrome of right lacrimal gland Bird Santacruz MD [facility] 03/23/2020 Intermediate Eye Exam Established Patient 78175 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, left eye, Recurrent erosion of cornea, right eye, Squamous blepharitis right upper eyelid, Atrophy of globe, left eye Reilly Burks MD, FACS Reilly Burks MD [facility] 03/16/2020 Intermediate Eye Exam Established Patient 02351 Recurrent erosion of cornea, right eye, 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, left eye, Atrophy of globe, left eye Bird Santacruz MD [facility] 03/12/2020 Intermediate Eye Exam Established Patient 46617 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, left eye, Atrophy of globe, left eye, Dry eye syndrome of right lacrimal gland Bird Santacruz MD [facility] 02/11/2020 Surgical History Last Updated Surgical / procedural [...] Non Hodkins Ly mphoma 2011, Diabetes, A-Fib 4410-5474, Gastroparesis 2017, CHF 2015, Squamous Cell Skin Cancer 2017, Pulmonary Fibrosis 7296-1509, Sleep Apnea, Anxiety, Anemia 05/13/2020 Currently wearing eyeglasses 04/30/2018 History of arthritis 04/30/2018 History of hyperlipidemia 04/30/2018 History of hypertension 04/30/2018 Family History Includes: Family History in patient's chart Description Last Updated Daughter's history of diabetes mellitus 03/16/2020 Daughter's history of hypertension 03/16/2020 Daughter's history of thyroid disorder 03/16/2020 Fraternal history of arthritis 03/16/2020 Fraternal history of diabetes mellitus 03/16/2020 Fraternal history of hypertension 03/16/2020 Fraternal history of stroke/cerebrovascular accident 1 05/16/2019 Maternal history of arthritis 03/16/2020 Maternal history of cataract 03/16/2020 Maternal history of diabetes mellitus 03/16/2020 Maternal history of hypertension 03/16/2020 Paternal history of arthritis 03/16/2020 Paternal history of cataract 03/16/2020 Paternal history of diabetes mellitus 03/16/2020 Paternal history of heart disease 03/16/2020 Paternal history of hypertension 03/16/2020 Son's history of diabetes mellitus 03/16/2020 Son's history of hypertension 03/16/2020 Sororal history of arthritis 03/16/2020 Sororal history of cataract 03/16/2020 Sororal history of diabetes mellitus 03/16/2020 Sororal history of hypertension 03/16/2020 Review of Systems Review of Systems not [...] - 12:00AM Active Encounters Includes: Encounters from 01/13/2020 through 01/12/2021 Encounter Provider Location Date Check-In Time Check-Out Time D iagnosis TRIAGE NON URGENT Bird Santacruz MD [facility] 9:15AM 11:09AM Hypotony of Eye, Conjunctiva l Concretions, Blepharitis Squamous, Dry Eye Syndrome Right Eye, Phthisis Bulbi Left Eye, Corneal Opacity 2 Month Follow up Bird Santacruz MD [facility] 7:16AM 8:10AM Hypotony of Eye, Conjunctiva l Concretions, Blepharitis Squamous, Dry Eye Syndrome Right Eye, Phthisis Bulbi Left Eye, Corneal Opacity TRIAGE NON URGENT Reilly Burks MD, FACS Reilly Burks MD [facility] 09/02/2020 7:16AM 7:58AM Lacrimal Stenosis Na solacrimal Duct Acquired, Conjunctivitis Acute Bacterial LACRIMAL IRRIGATION & PROBING IN OFFICE Global 1 0 day Bird Santacruz MD [facility] 07/16/2020 7:25AM 8:13AM Con junctival Concretions, Hypotony of Eye, Blepharitis Squamous, Dry Eye Syndrome Right Eye, Phthisis Bulbi Left Eye, Corneal Opacity, Lacrimal Stenosis Nasolacrimal Duct Acquired 1 Month Follow-Up Bird Santacruz MD [facility] 7:16AM 8:00AM Hypotony of Eye, Conjunctiva l Concretions, Blepharitis Squamous, Dry Eye Syndrome Right Eye, Phthisis Bulbi Left Eye, Corneal Opacity, Epiphora Due To Excess Lacrimation 2 Week Follow-Up Bird Santacruz MD [facility] 04/24 7:16AM 8:11AM Hypotony of Eye, Corneal Deg eneration Recurrent Erosion, Conjunctival Concretions, Blepharitis Squamous, Dry Eye Syndrome Right Eye, Phthisis Bulbi Left Eye, Corneal Opacity 1 Week Follow-Up Bird Santacruz MD [facility] 09/2020 7:30AM 8:23AM Hypotony of Eye, Corneal Deg eneration Recurrent Erosion, Blepharitis Squamous, Dry Eye Syndrome Right Eye, Phthisis Bulbi Left Eye, Corneal Opacity, Conjunctival Concretions 1 Week Follow-Up Bird Santacruz MD [facility] 03/24 7:26AM 8:52AM Hypotony of Eye, Corneal Deg eneration Recurrent Erosion, Blepharitis Squamous, Dry Eye Syndrome Right Eye, Phthisis Bulbi Left Eye, Corneal Opacity 1 Week Follow-Up Bird Santacruz MD [facility] 03/23 7:40AM 8:50AM Hypotony of Eye, Corneal Deg eneration Recurrent Erosion, Blepharitis Squamous, Dry Eye Syndrome Right Eye, Phthisis Bulbi Left Eye, Corneal Opacity 1 Week Follow-Up Bird Santacruz MD [facility] 03/23 7:28AM 8:11AM Corneal Degeneration Recurre nt Erosion, Hypotony of Eye, Blepharitis Squamous, Dry Eye Syndrome Right Eye, Phthisis Bulbi Left Eye Rx Refills/Changes Bird Torres DO 03/29/2020 020 4:21PM 03/23/2020 11:59PM 1 Week Follow-Up Bird Santacruz MD [facility] 04/2019 7:27AM 8:22AM Hypotony of Eye, Corneal Deg eneration Recurrent Erosion, Blepharitis Squamous, Dry Eye Syndrome Right Eye, Phthisis Bulbi Left Eye 3day followup Reilly Burks MD, FACS Reilly Burks MD [facility] 03/16/2020 8:11AM 8:54AM Hypotony of Eye, Corneal Deg eneration Recurrent Erosion, Blepharitis Squamous, Dry Eye Syndrome Right Eye, Phthisis Bulbi Left Eye 1 Month Follow-Up Bird Santacruz MD [facility] 7:47AM 8:53AM Hypotony of Eye, Blepharitis Squamous, Dry Eye Syndrome Right Eye, Phthisis Bulbi Left Eye, Corneal Degeneration Recurrent Erosion 6 Week Follow-Up Bird Santacruz MD [facility] 01/22 8:00AM 9:56AM Hypotony of Eye, Blepharitis Squamous, Dry Eye Syndrome Right Eye, Phthisis Bulbi Left Eye Insurance Includes: Active Insurance Policies Plan Name Member ID Group # Subscriber Relationship Effective Da guerrero 1 - Medicare Part [facility] [id number] Annmarie Oneal 2 - [facility] [id number] Judy Oneal Advance Directives Includes: Current Advance DirectivesNo Advance Directives Recorded Health Concerns Includes: Active Health ConcernsNo Active Health Concerns Recorded Goals Includes: Active GoalsNo Active Goals Recorded Interventions Includes: Interventions for active GoalsNo Interventions Recorded Evaluations & Outcomes Includes: Evaluations & Outcomes for active GoalsNo Outcomes Recorded
--- OUTSIDE RECORDS SUMMARY | 2021-02-04 11:32 | CCD ---
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 Active confirmed 96283960 Problem manager marketing (current) use of insulin Z79.4 Activ e confirmed 568983553 Problem Mixed hyperlipidemia E78.2 Active confirmed 840071648 Problem Chronic diastolic congestive heart failure I50.32 Active confirmed 562014793 Problem 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.43 Active confirmed 052496435 Problem Gastroparesis K31.84 Active confirmed 995154 006 Problem 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 Active confirmed 449092029 Problem Pulmonary fibrosis J84.10 Active confirmed 5 0812504 Problem Visual loss H54.7 Active confirmed 75970093 3 Problem Obesity, unspecified obesity severity, unspecified obe sity type E66.9 Active confirmed 263716955 Problem Chronic systolic (congestive) heart failure I50.22 Active confirmed 788547724 Problem Hypothyroidism (acquired) E03.9 Active confirmed 818088858 Problem Hypertensive kidney disease I12.9 Active confirmed 09053093 Problem Basal cell carcinoma (BCC) of skin of nose C44.311 Active confirmed 923845823 ALLERGIES Allergen (clinical drug ingredient) Drug/Non Drug Allergy do cumented on EMR Reaction Allergy Type Onset Date Status azithromycin Azithromycin([facility] Code:[address]-90) Rash Drug All ergy Active amiodorone toxicity Non Drug Allergy Active Lisinopril lisinopril cough Non Drug Allergy Active sitagliptin Januvia([facility] Code:[address]-56) Rash Drug Allergy Active ENCOUNTERS from 1945 to 2021-01-03 Encounter Location Date Provider [facility] [phone] [place] [address] 13 Dec, 2020 Irais Inman IMMUNIZATIONS Vaccine [...] Education Language: Question Answer Notes Languages spoken: Monegasque Baptist: Question Answer Notes Baptist 24 Sabianism Sexual Hx: Question Answer Notes Had sex [...] Information RESULTS No Results REASON FOR VISIT wheezing, short of breath MEDICAL (GENERAL) HISTORY Type Description Date Medical History 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 Fauzia Bansal Medical History GERD Medical History DEVEN - uses CPAP; Dr. Slade Medical History H/o asthma Medical History Pulmonary fibrosis Medical History Macular degeneration - Dr. German Medical History Cataracts, left eye infection - Dr. Lopez delgadillo Medical History Atrial fibrillation/atrial flutter: [facility]: Dr. Kulkarni Medical History 03/2015 ECHO: [...] Details Provider Name:Kathie Linder, 03:45:00 PM, [address] [facility], , [place], [address], Provider Name:Irais Inman, 2021-06-13 11:45:00 AM, [address] [facility], , [place], [address], Insurance Providers Payer Name Payer Address Payer Phone Insured Name Patient Relati onship to Insured Coverage Start Date Coverage End Date MEDICARE Part A and B [address] [facility] [id number] LISA DIAMOND [facility] CLAIM DIV [id number] [facility] [place] [address] LISA DIAMOND self
--- OUTSIDE RECORDS SUMMARY | 2021-02-04 11:32 | CCD | Continuity of Care Document ---
Author Author Judy MAY MD Organization Unknown Address [address] [place] [address], [address] [place] [address] Phone [phone] Care Team Providers Care Door To Door Lead Generation Name Role Phone Shantal Kulkarni MD AUTM [phone] Irais Inman MD AUTM [phone] Problems Description No Information Available Social History [...] by mouth every day Unknown Calcium-Vitamin D3 [id number]-Eepp Tablets Unknown Chlorthalidone 25mg Tablets 1 by [...] Available Procedures Date Code Description Status 01/06/2021 34638 Office/Outpatient New High MDM 6 0-74 Minutes Completed Medical Devices Description No Information Available Encounters Type Date Location Provider Dx Diagnosis Office Visit 01/06/2021 4:00p [facility] Crow Arguello MD I48.0 Paroxysmal atrial fibrillation Assessments Date Code Description Provider 01/06/2021 I48.0 Paroxysmal atrial fibrillation M tyrell Arguello MD Plan of Treatment 01/06/2021 - Crow Arguello MD* I48.0 Paroxysmal atrial fibrillation* Recommendations:* Functional Status Description No Information Available Mental Status Description No Information Available Referrals Description No Information Available
--- OUTSIDE RECORDS SUMMARY | 2021-02-04 11:32 | CCD | Continuity of Care Document ---
Author Author Judy MAY MD Organization Unknown Address [address] [place] [address], [address] [place] [address] Phone [phone] Care Team Providers Care Acquisition Marketing Coordinator Name Role Phone Shantal Kulkarni MD AUTM [phone] Irais Inman MD AUTM [phone] Problems Description No Information Available Social History [...] by mouth every day Unknown Calcium-Vitamin D3 [id number] Tablets Unknown Chlorthalidone 25mg Tablets 1 by [...] Available Procedures Date Code Description Status 01/06/2021 75967 Office/Outpatient New High MDM 6 0-74 Minutes Completed Medical Devices Description No Information Available Encounters Type Date Location Provider Dx Diagnosis Office Visit 01/06/2021 4:00p [facility] Crow Arguello MD I48.0 Paroxysmal atrial fibrillation Assessments Date Code Description Provider 01/06/2021 I48.0 Paroxysmal atrial fibrillation M tyrell Arguello MD Plan of Treatment 01/06/2021 - Crow Arguello MD* I48.0 Paroxysmal atrial fibrillation* Recommendations:* Functional Status Description No Information Available Mental Status Description No Information Available Referrals Description No Information Available
--- OUTSIDE RECORDS SUMMARY | 2021-02-04 11:32 | CCD ---
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 Active confirmed 84044527 Problem prison (current) use of insulin Z79.4 Activ e confirmed 918117784 Problem Mixed hyperlipidemia E78.2 Active confirmed 930921867 Problem Chronic diastolic congestive heart failure I50.32 Active confirmed 222305692 Problem 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.43 Active confirmed 853209670 Problem Gastroparesis K31.84 Active confirmed 692924 006 Problem 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 Active confirmed 769291751 Problem Pulmonary fibrosis J84.10 Active confirmed 5 0175521 Problem Visual loss H54.7 Active confirmed 90452791 3 Problem Obesity, unspecified obesity severity, unspecified obe sity type E66.9 Active confirmed 813167179 Problem Chronic systolic (congestive) heart failure I50.22 Active confirmed 078647824 Problem Hypothyroidism (acquired) E03.9 Active confirmed 466046566 Problem Hypertensive kidney disease I12.9 Active confirmed 39309294 Problem Basal cell carcinoma (BCC) of skin of nose C44.311 Active confirmed 410533504 ALLERGIES Allergen (clinical drug ingredient) Drug/Non Drug Allergy do cumented on EMR Reaction Allergy Type Onset Date Status azithromycin Azithromycin([facility] Code:[address]-09) Rash Drug All ergy Active amiodorone toxicity Non Drug Allergy Active Lisinopril lisinopril cough Non Drug Allergy Active sitagliptin Antoineuvia([facility] Code:[address]-68) Rash Drug Allergy Active ENCOUNTERS from 1945 to 2020-12-21 Encounter Location Date Provider Diagnosis [id number] [facility] [phone] [place] [address] Nov, Irais Inman Encounter for annual wellnes s exam in Medicare patient Z00.00 ; Pneumonia due to infectious organism, unspecified laterality, unspecified part of lung J18.9 ; 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 ; Atrial fibrillation and flutter I48.91 ; Obstructive sleep apnea G47.33 ; Pulmonary fibrosis J84.10 ; 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.43 ; supervisor intermediates (current) use of insulin Z79.4 ; Chronic diastolic congestive heart failure I50.32 ; Chronic systolic (congestive) heart failure I50.22 ; Gastroparesis K31.84 ; Mixed hyperlipidemia E78.2 ; Esophageal reflux K21.9 ; Other malignant lymphomas of lymph nodes of head, face, 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 ; Obesity, unspecified obesity severity, unspecified obesity type E66.9 ; Hypothyroidism (acquired) E03.9 ; Hypertensive kidney disease I12.9 and Stage 3a chronic kidney disease N18.31 IMMUNIZATIONS Vaccine Route Administration Date Status COVID-19 [...] Education Language: Question Answer Notes Languages spoken: Romanian Evangelical: Question Answer Notes Evangelical 24 Yarsanism Sexual Hx: Question Answer Notes Had sex [...] No Information VITAL SIGNS Weight 177 lbs Nov, Height 60.5 in Nov, BMI 34.00 kg/m2 Nov, Heart Rate 103 /min Nov, Respiratory Rate 18 /min Nov, Temperature 97.1 degrees Fahrenheit Nov, Oximetry 96 Nov, Blood pressure systolic 120 mm Hg Nov, Blood pressure diastolic 76 mm Hg Nov, MEDICATIONS Medication SIG (Take, Route, Frequency, Duration) Notes Start Da te End Date Status Spironolactone 25 mg 0.5 tablet Orally Daily Dec, Active Folic Acid 1 MG 1 tablet Orally Once a day Apr, Active Eliquis 5 mg Orally twice daily cardiology Act danielle Omeprazole 40 MG 1 capsule Orally Once a day Dec, Active HumaLOG 100 UNIT/ML per SS Subcutaneous TID AC Dr. Bansal rx Active Bisoprolol Fumarate 10 MG 1 tablet Orally Once a day Active Cardizem 60 MG as directed Orally daily Active Restasis 0.05 % 1 drop into affected eye Ophthalmic Twice a day Active Lipitor 80 MG 1 tablet Orally Once a day Active Flonase 50 MCG/ACT 1 spray in each nostril Nasa lly Once a day, as needed for 90 days PRN Active Calcium 250 MG as directed Orally Ac tive glipiZIDE 10 MG 1 tablet 30 minutes before breakfast Orally twice wali ly Active Levothyroxine Sodium 137 MCG 1 tablet in the morning o n an empty stomach Orally Once a day for 30 day(s) Nov, Active Chlorthalidone 25 MG 1 tablet in the morning with food Orally Once a day for 30 day(s) Active Losartan Potassium 25 MG 1 tablet Orally Once a day Apr Active Trulicity 1.5 MG/0.5ML as directed Subcutaneous Active Doxycycline Hyclate 100 MG 1 tablet Orally every 12 hrs Nov, Active Methotrexate Sodium 2.5 MG 4 tablets as directed Orally Once wee kly Apr, Active Digoxin 125 MCG 1 tablet Orally Once a day Active Cefpodoxime Proxetil 200 MG 1 tablet with food Orally Twice a da y Nov, Active Toujeo SoloStar 300 UNIT/ML [address] Bansal rx Active PROCEDURES No Information RESULTS Component Value Reference Range LIPID PANEL (CARDIAC RISK) Reviewed date:12/20/2020 15:25:43 Interpretation: Performing Lab:[facility], [facility] [address] [address] , [place] [address] TRIGLYCERIDES LEVEL 238 <150 CHOLESTEROL LEVEL 168 <200 HDL CHOLESTEROL 36 >40 LDL CHOLESTEROL 84 <100 NON-HDL-C 132 CHOLESTEROL RISK RATIO 4.666 <5 REASON FOR VISIT ANNUAL MEDICAL (GENERAL) HISTORY Type Description Date Medical History Follicular Nonhodgekins Lymphoma [facility] - [facility] Oncology Medical History HTN Medical History Hypothyroidism Medical History Hyperlipidemia Medical History Type 2 IDDM: Dr. Fauzia Bansal Medical History GERD Medical History DEVEN - uses CPAP; Dr. Slade Medical History H/o asthma Medical History Pulmonary fibrosis Medical History Macular degeneration - Dr. German Medical History Cataracts, left eye infection - Dr. Lopez delgadillo Medical History Atrial fibrillation/atrial flutter: [facility]: Dr. Kulkarni Medical History 03/2015 ECHO: EF [...] eye surgery - FLAT procedure, Dr. Johnston leona 01/20/19 Surgical History left total knee replacment [...] Notes Treatment Notes Treatm ent Clinical Notes Nov, Encounter for annual wellnes s exam in Medicare patient (ICD-10 - Z00.00) Medical, surgical, and family histories were reviewed and updated. See preventative section. Continues to decline mammogram; After a discussion of the risks and benefits of mammography for breast cancer screening, the patient declined recommended mammogram. She verbalized understanding that the purpose of a mammogram is to detect breast cancer early when it may be easier to treat, and that the risks of declining screening include advanced breast cancer and premature . Continues to decline Dexa test; I discussed with her that she is at increased risk fracture due to being postmenopause and age and that we could treat this with medication if we found it on a bone density test. Nov, Pneumonia due to infectious organism, unspecified laterality, unspecified part of lung (ICD-10 - J18.9) Symptomatically improving; repeat CXR in 4 weeks. 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 Nov, Atrial fibrillation and flutter (ICD-10 - I48.91 ) Pacemaker placed in September but still having frequent palpitations; meeting with doctor in [place] in December to discuss an ablation. Nov, Obstructive sleep apnea (ICD-10 - G47.33) Reports compliant with CPAP nightly. Nov, Pulmonary fibrosis (ICD-10 - J84.10) 2/2 amiodarone use in the past; stable; follows with pulmonology. Nov, Type 2 diabetes mellitus wit h diabetic autonomic (poly)neuropathy (ICD-10 - E11.43) Reports last A1c at Dr. Bansal's office was 6.8%. Nov, supervisor intermediates (current) use of insulin (ICD-10 - Z79 .4) Nov, Chronic diastolic congestive heart failure (ICD- 10 - I50.32) Euvolemic on exam today. Nov, Chronic systolic (congestive) heart failure (ICD -10 - I50.22) Euvolemic on exam today. Nov, Gastroparesis (ICD-10 - K31.84) Stable, denies symptoms. Nov, Mixed hyperlipidemia (ICD-10 - E78.2) Nov, Esophageal reflux (ICD-10 - K21.9) Stable. Nov, Other malignant lymphomas of lymph nodes of head, face, and neck (ICD-10 - C85.81) Follows with [facility] Oncology. Nov, Obesity, unspecified obesity severity, unspecified obesity type (ICD-10 - E66.9) Nov, Hypothyroidism (acquired) (ICD-10 - E03.9) Levothyroxine dose was adjusted 4 weeks ago; repeat TSH in 4 weeks. Nov, Hypertensive kidney disease (ICD-10 - I12.9) Per JNC 8 guidelines, goal BP < 140/90; is meeting goal on current regimen. Advised heart-healthy diet, sodium restriction. Nov, Stage 3a chronic kidney disease (ICD-10 - N18.31 ) Declines referral to Nephro; will monitor renal function. PLAN OF TREATMENT Medication Medication Name Sig Start Date Stop Date Lipitor 80 MG 1 tablet Orally Once a day Digoxin 125 MCG 1 tablet Orally Once a day Cefpodoxime Proxetil 200 MG 1 tablet with food Orally Twice a da y Nov, Bisoprolol Fumarate 10 MG 1 tablet Orally Once a day Folic Acid 1 MG 1 tablet Orally Once a day Apr, Toujeo SoloStar 300 UNIT/ML 150 units Subcutaneous Daily Losartan Potassium 25 MG 1 tablet Orally Once a day Apr, Omeprazole 40 MG 1 capsule Orally Once a day Dec, Trulicity 1.5 MG/0.5ML as directed Subcutaneous Doxycycline Hyclate 100 MG 1 tablet Orally every 12 hrs Nov, glipiZIDE 10 MG 1 tablet 30 minutes before breakfast Orally twic e daily Spironolactone 25 mg 0.5 tablet Orally Daily Dec, Eliquis 5 mg Orally twice daily HumaLOG 100 UNIT/ML per SS Subcutaneous TID AC Methotrexate Sodium 2.5 MG 4 tablets as directed Orally Once weekly Apr, Cardizem 60 MG as directed Orally daily Treatment Notes Assessment Notes Clinical Notes Hypertensive kidney disease Per JNC 8 gu idelines, goal BP < 140/90; is meeting goal on current regimen. Advised heart-healthy diet, sodium restriction. Encounter for annual wellness exam in Medicare patient Medical, surgical, and family histories were reviewed and updated. See preventative section.Continues to decline mammogram; After a discussion of the risks and benefits of mammography for breast cancer screening, the patient declined recommended mammogram. She verbalized understanding that the purpose of a mammogram is to detect breast cancer early when it may be easier to treat, and that the risks of declining screening include advanced breast cancer and premature .Continues to decline Dexa test; I discussed with her that she is at increased risk fracture due to being postmenopause and age and that we could treat this with medication if we found it on a bone density test. Hypothyroidism (acquired) Levothyroxine dose was adjusted 4 weeks ago; repeat TSH in 4 weeks. Pneumonia due to infectious organism, un specified laterality, unspecified part of lung Symptomatically improving; r epeat CXR in 4 weeks. Corneal ulcer of right eye Following wit h [facility] Rheum; corneal ulcers are stable on methotrexate. Stage 3a chronic kidney disease Declines referral to Nephro; will monitor renal function. Atrial fibrillation and flutter Pacemake r placed in September but still having frequent palpitations; meeting with doctor in [place] in December to discuss an ablation. Obstructive sleep apnea Reports complian t with CPAP nightly. Pulmonary fibrosis 2/2 amiodarone use i n the past; stable; follows with pulmonology. Type 2 diabetes mellitus with diabetic autonomic (poly)neuro jackson Reports last A1c at Dr. Bansal's office was 6.8%. Other malignant lymphomas of lymph nodes of head, face, and neck Follows with [facility] Oncology. Esophageal reflux Stable. Chronic diastolic congestive heart failure Euvolemic on exam today. Chronic systolic (congestive) heart failure Euvolemic on exam today. Gastroparesis Stable, denies sympt oms. Treatment Notes Test Name Order Date CBC with Differential 2020-12-20 Comprehensive Metabolic Profile (CMP) 2020-12-20 C REACTIVE PROTEIN QUANTITATIV (At [facility]) 2020-12-20 ERYTHROCYTE SEDIMENTATION RATE 2020-12-20 Future Test Test Name Order Date [facility] Chest, 2 view (PA\Lat) 20210110 Next Appt Details 6 month Reason:F/u med prob Provider Name:Kathie Linder, 03:45:00 PM, [address] [place] [address], , [place], [address] Provider Name:Irais Inman, 2021-06-13 11:45:00 AM, [address] [facility], , [place], [address], Follow Up:6 monthF/u med prob Insurance Providers Payer Name Payer Address Payer Phone Insured Name Patient Relati onship to Insured Coverage Start Date Coverage End Date MEDICARE Part A and B [address] [facility] [address] [phone] LISA DIAMOND [facility] OPTIONS [facility] CLAIM DIV [address] [facility] [id number] LISA DIAMOND self
--- OUTSIDE RECORDS SUMMARY | 2021-02-04 11:33 | CCD ---
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 Active confirmed 62653411 Problem FPC (current) use of insulin Z79.4 Activ e confirmed 008299538 Problem Mixed hyperlipidemia E78.2 Active confirmed 897067214 Problem Pulmonary fibrosis J84.10 Active confirmed 5 5116475 Problem Obesity, unspecified obesity severity, unspecified obe sity type E66.9 Active confirmed 523288885 Problem 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.43 Active confirmed 638350344 Problem Chronic diastolic congestive heart failure I50.32 Active confirmed 932797854 Problem Hypothyroidism (acquired) E03.9 Active confirmed 537357704 Problem Chronic kidney disease, stage 3 N18.3 Active confi rmed 192996795 Problem Basal cell carcinoma (BCC) of skin of nose C44.311 Active confirmed 845287002 Problem Leukocytosis, unspecified type D72.829 Active confi rmed 928520396 Problem Chronic systolic (congestive) heart failure I50.22 Active confirmed 123397687 Problem Atrial fibrillation and flutter I48.91 Active confi rmed 914049779 Problem Visual loss H54.7 Active confirmed 95566948 3 Problem Gastroparesis K31.84 Active confirmed 789191 006 Problem Esophageal reflux K21.9 Active confirmed 23 6353747 Problem Hypertensive kidney disease I12.9 Active confirmed 62623670 Problem Hearing loss of right ear, unspecified hearing loss type H91.91 Active confirmed 892215705 Problem 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 Active confirmed 590129087 Problem Arthritis of left knee M17.12 Active confirmed [id number] ALLERGIES Allergen (clinical drug ingredient) Drug/Non Drug Allergy do cumented on EMR Reaction Allergy Type Onset Date Status sitagliptin Januvia([facility] Code:[address]-05) Rash Drug Allergy Active azithromycin Azithromycin([facility] Code:[address]-41) Rash Drug All ergy Active amiodorone toxicity Non Drug Allergy Active lisinopril cough Drug Allergy Active ENCOUNTERS from 1945 to 2020-12-14 Encounter Location Date Provider Diagnosis [address] [id number] [facility] [phone] [place] [address] Nov, Irais Inmna Esophageal reflux K21.9 IMMUNIZATIONS Vaccine Route Administration Date Status Influenza [...] Education Language: Question Answer Notes Languages spoken: Polish Roman Catholic: Question Answer Notes Roman Catholic 24 Muslim Sexual Hx: Question Answer Notes Had sex [...] Notes Start Da te End Date Status Restasis 0.05 % 1 drop into affected eye Ophthalmic Twice a day Active Methotrexate Sodium 2.5 MG 4 tablets as directed Orally Once weekly for 90 days Apr, Active Lipitor 80 MG 1 tablet Orally Once a day Active Folic Acid 1 MG 1 tablet Orally Once a day for 90 days Apr, Active Chlorthalidone 25 MG 1 tablet in the morning with food Orally Once a day for 30 day(s) Active Metoprolol Tartrate 100 MG 1 tablet with a 50mg tabtpe qual 150mg with food Orally Twice a day Not-Taking Flonase 50 MCG/ACT 1 spray in each nostril Nasa lly Once a day, as needed for 90 days PRN Active Digoxin 125 MCG 0.5 tablet Orally Once a day Active glipiZIDE 10 MG 1 tablet 30 minutes before breakfast Orally twice wali ly Active HumaLOG 100 UNIT/ML per SS Subcutaneous TID AC Dr. Bansal rx Active Calcium 250 MG as directed Orally Ac tive Losartan Potassium 25 MG 1 tablet Orally Once a day for 90 days Apr, Active Trulicity 0.75 MG/0.5ML as directed Subcutaneous Active Spironolactone 25 mg 0.5 tablet Orally Daily Dec, Active Eliquis 5 mg Orally twice daily cardiology Act danielle Furosemide 20 MG 1 tablet Orally Once a day for 90 days Feb, Not-Taking Levothyroxine Sodium 137 MCG 1 tablet in the morning o n an empty stomach Orally Once a day for 30 day(s) Nov, Active Omeprazole 40 MG 1 capsule Orally Once a day for 90 days 0 8 Dec, 2018 Active Toujeo SoloStar 300 UNIT/ML [address] Bansal rx Active Bisoprolol Fumarate 10 MG 1 tablet Orally Once a day for 30 day(s) Active PROCEDURES No Information RESULTS No Results REASON FOR VISIT omeprazole MEDICAL (GENERAL) HISTORY Type Description Date Medical History Follicular Nonhodgekins Lymphoma in sh[facility] ssion - [facility] Oncology Medical History HTN Medical History Hypothyroidism Medical History Hyperlipidemia Medical History Type 2 IDDM: Dr. Fauzia Bansal Medical History GERD Medical History DEVEN - uses CPAP; Dr. Slade Medical History H/o asthma Medical History Pulmonary fibrosis Medical History Macular degeneration - Dr. German Medical History Cataracts, left eye infection - Dr. Lopez delgadillo Medical History Atrial fibrillation/atrial flutter: [facility]: Dr. Kulkarni Medical History 03/2015 ECHO: EF [...] Treatment Notes Treatm ent Clinical Notes Nov, Esophageal reflux (ICD-10 - K21.9) PLAN OF TREATMENT Medication Medication Name Sig Start Date Stop Date Folic Acid 1 MG 1 tablet Orally Once a day for 90 days Apr, Omeprazole 40 MG 1 capsule Orally Once a day for 90 days Dec, Levothyroxine Sodium 137 MCG 1 tablet in the morning o n an empty stomach Orally Once a day for 30 day(s) Nov, Methotrexate Sodium 2.5 MG 4 tablets as directed Orally Once weekly for 90 days Apr, Next Appt Details Provider Name:Irais Inman, 2020-12-20 11:45:00 AM, [address] [place] [address] , [place], [address], Provider Name:Kathie Linder, 03:45:00 PM, [address] [place] [address], , [place], [address], Insurance Providers Payer Name Payer Address Payer Phone Insured Name Patient Relati onship to Insured Coverage Start Date Coverage End Date [employer] [facility] CLAIM DIV [address] [facility] [phone] LISA DIAMOND MEDICARE Part A and B [address] [facility] [phone] LISA DIAMOND
--- OUTSIDE RECORDS SUMMARY | 2021-02-04 11:33 | CCD ---
Author Author [facility] [employer] Organization [facility] Organization [facility] [employer] Organization [facility] Address Unknown Phone Unavailable Care Team Providers Care [employer] Driver Name Role Phone Kathie Linder Unavailable PROBLEMS ALLERGIES ENCOUNTERS from 1945 to 2020-11-22 IMMUNIZATIONS SOCIAL HISTORY REASON FOR REFERRAL No Information VITAL SIGNS MEDICATIONS PROCEDURES No Information RESULTS No Results REASON FOR VISIT MEDICAL (GENERAL) HISTORY Goals Section Health Concerns MEDICAL EQUIPMENT No Information MENTAL STATUS FUNCTIONAL STATUS ASSESSMENTS No Information PLAN OF TREATMENT Insurance Providers
--- OUTSIDE RECORDS SUMMARY | 2021-02-04 11:33 | CCD | Continuity of Care Document ---
Author Author Judy BUSTILLO MD Organization Unknown Address [address] [facility] [address] [place] [address] Phone [phone] Care Team Providers Care Forest Fire Officer Name Role Phone [place], Audiology AUTM [phone] Sulaiman Bianchi M.D. AUTM [phone] Irais Inman M.D. AUTM [phone] AUTM Unavailable Bird Torres D.O. AUTM [phone] Central Scheduling AUTM [phone] Problems Active Problems Provider Date Wheezing Isadora Whitehead M.D. 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, face and neck Nuzhat Basilio DO Onset: 08/19/2014 Lymphadenopathy Nuzhat Basilio DO Onset: 08/19/2014 Hearing loss Nuzhat Basilio DO Onset: 08/19/2014 Benign neoplasm of major salivary gland Jimmie Bustillo MD Onset: 09/02/2014 Weakness of face muscles Jimmie Bustillo MD Onset: 10/09/19 15 Sialoadenitis Curt Delgado II, PA-C Onset: 11/09/2014 Allergic rhinitis Jimmie Bustillo MD Onset: 11/09/2014 Chronic sinusitis Jimmie Bustillo MD Onset: 01/20/2015 Diffuse otitis externa Jimmie Bustillo MD Onset: 01/20/2015 Chronic tympanitis Jimmie Bustillo MD Onset: 01/20/2015 Cough Jimmie Bustillo MD Onset: 02/02/2015 Difficulty breathing Isadora Whitehead M.D. Onset: Chronic pulmonary heart disease Allison Neff Onset: 03/22/2015 Other nonspecific abnormal finding of lung field Isadora Morgan M.D. Onset: 03/22/2015 Hypoxemia Terrell Boyd D.O. Onset: 12/12/2016 Acute respiratory failure Terrell Boyd D.O. Onset: 017 Hyperkalemia Terrell Boyd D.O. Onset: 12/12/2016 Atelectasis Terry Denton.Lilian. Onset: 12/12/2016 Dehydration Terrell Boyd D.O. Onset: 12/12/2016 Chronic pansinusitis Jimmie Bustillo MD Onset: 03/30/2017 Nontoxic single thyroid nodule Jimmie Bustillo MD Onset: Vomiting without nausea NORMA Pinto Onset: 0 06/07/2017 Screening for malignant neoplasm of colon NORMA Cooper Onset: 06/07/2017 Benign neoplasm of ascending colon Reilly Rome MD Onset : 07/31/2017 Gastroparesis syndrome Reilly Rome MD Onset: 08/28/2017 Hypertrophy of nasal turbinates Jimmie Bustillo MD Onset: 0 08/28/2017 Follicular non-Hodgkin's lymphoma, small cleaved cell (clinical) Db Pena M.D. Onset: 09/28/2017 Pseudomonas aeruginosa infection of nail Allison Yee Onset: 09/28/2017 Morbid obesity Db Pena M.D. Onset: 09/28/2017 Chronic atrial fibrillation Db Pena M.D. Onset: 11/2017 Essential hypertension Db Pena M.D. Onset: Heart failure, unspecified Db Pena M.D. Onset: 09/28 Other mechanical complication of other c ardiac and vascular devices and implants, initial encounter Db Pena M.D. Onset: 11/13/2017 Nausea and vomiting NORMA Pinto Onset: 11/13 Heartburn NORMA Pinto Onset: 11/13 Chronic rhinitis Jimmie Bustillo MD Onset: 11/13/2017 Parietoalveolar pneumopathy Reilly Slade DO Onset: 09/21 Obstructive sleep apnea syndrome Reilly Slade DO Onset: 10/15/2019 Adverse effect of other antidysrhythmic drugs, sequela Reilly Slade DO Onset: 10/15/2019 Social History Type Date Description Comments Sex Unknown ETOH Use Denies alcohol use Tobacco Use Start: Unknown Patient has never smoked Recreational Drug Use Denies Drug Use Smoking Status Reviewed: 10/07/20 Patient has never smoked Allergies, Adverse Reactions, Alerts Active Allergies Reaction Severity Comments Date Januvia rash 10/31/2011 Lisinopril 05/21/2017 Amiodarone 09/03/2017 Inactive Allergies NKDA 08/08/2011 Medications Active Medications SIG Qnty Indications Ordering Provide r Date Sinus Rinse Bottle Kit Packet use once daily 3Months Jimmie Bustillo MD 08/31/2020 Tobradex 0.3-0.1% Suspension 2 drops right eye three times daily 7.5ml Jimmie Bustillo MD 08/31/2020 Ondansetron HCL 4mg Tablets 1 tab every 12 hours as needed for nausea 30tabs Reilly Rome MD 06/2017 Fluticasone Propionate 50mcg/Act Suspension 2 sprays both sides once daily 3Month J31.0 Jimmie fagan MD 11/09/2014 J32.[address] Take One Capsule By Mouth Every Morning 30caps Isadora daugherty M.D. 02/05/2014 Digoxin 125mcg Tablets 1/2 by mouth every other day Unknown Chlorthalidone 25mg Tablets Take One Tablet By Mouth Every Day Unknown Bisoprolol Fumarate 10mg Tablets Niki Sosa Trulicity 0.75mg/0.5 ML Solution Pen-Inject Inject Contents Of 1 Pen Subcutaneously Every Week Unknown Insulin Lispro (1 Unit Dial) 100Unit/ML Solution Pen-Inject sliding scale Unknown Restasis 0.05% Emulsion rt ey e Unknown Losartan Potassium 25mg Tablets daily Unknown Folic Acid 1mg Tablets one tablet by mouth every day after meals Unknown Methotrexate Sodium 2.5mg Tablets once a wk Unknown Sharon Hastings 300U nit/ML Solution Pen-Inject 150 units kalyn morning Unknown Levothyroxine Sodium 150mcg Capsul es 1 by mouth every morning Unknown Spironolactone 25mg Tablets 1/2 by mouth every day Unknown Eliquis 5mg Tablets 1 tab by mouth twice a day--Dr. neil Unknown CPAP 11cm LCW Reilly Slade, DO Multivitamins Capsules 1 by mouth every day Unknown Atorvastatin Calcium 80mg Tablets 1 by mouth every day Unknown Aleve 220mg Tablets 2 by mouth as needed Unknown Glyburide 5mg Tablets 2 by mouth twice a day Unknown History Medications Augmentin 500-125mg Tablets 1 by mouth three times a day 30tabs Jimmie Bustillo MD 10/05/2020 - 0 05/11/2020 Bactrim DS 800-160mg Tablets 1 by mouth twice a day 14tabs Jimmie Bustillo MD 08/31/2020 - Tylenol With Codeine #3 300-30mg T ablets 1 tab by mouth every 4h as needed 30tabs Jimmie Bustillo MD 08/25/2020 - 05/07/2020 Immunizations CPT Code Status Date Vaccine Lot # [id number] Given 02/09/2015 Influenza Virus Split 3 Yrs And Above For Intramuscular Use 67934 Given 04/01/2013 TB Intradermal Test 09608 Given 01/29/2013 Influenza Virus Split 3 Yrs And Above For Intramuscular Use 45516 Given 12/22/2009 Pneumococcal PPSV23 89208 Refused 01/22/2017 Influenza Virus Split 3 Yrs And Above For Intramuscular Use Vital Signs Date Vital Result Comment 12/06/2020 10:44am Height 59 inches 4'11" Weight 178.00 lb BMI (Body Mass Index) 35.9 kg/m2 [place] Body Weight 100 lb Weight 80.741 kg BSA (Body Surface Area) 1.76 m2 11/08/2020 1:28pm Height 59 inches 4'11" Weight 179.00 lb BMI (Body Mass Index) 36.1 kg/m2 [place] Body Weight 100 lb Weight 81.194 kg BSA (Body Surface Area) 1.76 m2 Results Test Acquired Date Facility Test Result H/L Range Note FVL/[place] 10/07/2020 [facility] SEE IMAGE FVC-Pred 2.30 L FVC-Pre 1.83 L FVC-%Pred-Pre 79 L FVC-LLN 1.71 L Fev1-Pred 1.72 L Fev1-Pre 1.29 L Fev1-%Pred-Pre 75 L Fev1-LLN 1.22 L Fev6-Pred 2.18 L Fev6-Pre 1.83 L Fev6-%Pred-Pre 83 L Fev6-LLN 1.60 L Orq2vtz-Opmr 75 % Jbh4ero-Xoe 70 % Rtj5yjx-%Pred-Pre 93 % Rih1mli-MYU 65 % Zpv7ewp-Kldt 95 % Sza6gko-Ixh 100 % Vdk6eiy-%Pred-Pre 105 % FEFMax-Pred 4.67 L/E/sec FEFMax-Pre 3.04 L/E/sec FEFMax-%Pred-Pre 65 L/E/sec FEFMax-LLN 3.21 L/E/sec Uqr3188-Ifoh 1.48 L/E/sec Jnd6703-Wwq 0.93 L/E/sec Gnu5730-%Pred-Pre 62 L/E/sec Iak4188-DMK 0.43 L/E/sec ExpTime-Pre 4.86 sec Ena6ixs3-Bsqb 79 % Vxv7ghg7-Jzc 70 % Mxf2xrq5-%Pred-Pre 89 % Deg7rdk9-QTO 70 % Laboratory test finding 08/31/2020 [facility] Main Lab [address] [place], [place] [id number] [phone] Nasal And Sinus Culture FULL REPORT IN L <SEE NOTE> N ormal 1 Laboratory test finding 08/25/2020 [facility] Main Lab [address] [place], [place] [id number] [phone] Bedside Glucose 145 mg/dL High 83-110 Laboratory test finding 08/25/2020 [facility] Main Lab [address] [place] [address] [phone] Bedside Glucose 192 mg/dL High 83-110 1 FULL REPORT IN LAB NOTES (eC W and [facility]). NO NORMAL DEMARIO ISOLATED ORGANISM 1: STAPHYLOCOCCUS AUREUS QUANTITY OF GROWTH MODERATE ORGANISM 1: STAPHYLOCOCCUS AUREUS STAPHYLOCOCCUS AUREUS: REACTION ICR (INDUCIBLE CC RESISTANCE) IV ICR TEST RESULT TETRACYCLINE PO 250 mg qid 2 S PENICILLIN G IV 1 mu q6H >=0.5 R PENICILLIN G IV 1 mu q6h >=0.5 R PENICILLIN G PO 250mg q6h fasting >=0.5 R TRIMETHOPRIM/SULFAMETHOXAZOLE IV 160mg TMP & 800mg SMXq6h <=10 S TRIMETHOPRIM/SULFAMETHOXAZOLE PO Bactrim DS Bid <=10 S ERYTHROMYCIN IV 500mg q6h >=8 R ERYTHROMYCIN PO 500mg q6h >=8 R GENTAMICIN IV 80mg q8h <=0.5 S CLINDAMYCIN IV 600mg q6h 0.25 R CLINDAMYCIN PO 150mg q6h 0.25 R NITROFURANTOIN PO 100mg BID <=16 S OXACILLIN IV 500mg q6h 0.5 S VANCOMYCIN IV 500mg q8h 1 S LINEZOLID (ZYVOX) IV 600MG Q12HR 2 S LINEZOLID (ZYVOX) PO 600MG Q12HR 2 S An isolate with a (+) POSITIVE ICR test is considered CLINDAMYCIN RESISTANT; however, clindamycin may still be effective in some patients. An isolate with a (-) NEGATIVE ICR test is considered CLIDAMYCIN SENSITIVE. Oxacillin result predicts susceptibility to all penicillinase-stable penicillins (Nafcillin, Dicloxacilin), Cephalosporins, Carbapenems, Amoxicillin/Clavulanate & Ampicillin/Sulbactam per CSLI standards. Procedures Date Code Description Status 12/06/2020 88453 Office/Outpatient Established SF MDM 10-19 Min Completed 11/08/2020 21563 Endoscopy Nasal Diagnostic Compl eted 10/07/2020 68107 Office/Outpatient Established Mo d MDM 30-39 Min Completed 10/07/2020 64184 Spirometry Completed 10/05/2020 87277 Office/Outpatient Established SF MDM 10-19 Min Completed 10/05/2020 05045 Endoscopy Nasal Diagnostic Compl eted 09/09/2020 17555 Office/Outpatient Established Lo w MDM 20-29 Min Completed 08/25/2020 70545 Endoscopy Nasal/Sinus W/ Dacryoc ystorhinostomy Completed 08/19/2020 84256 Office/Outpatient Established Lo w MDM 20-29 Min Completed 07/19/2020 47347 Office/Outpatient Established Lo w MDM 20-29 Min Completed 07/09/2020 28779 Office/Outpatient Established Lo w MDM 20-29 Min Completed Medical Devices Description No Information Available Encounters Type Date Location Provider Dx Diagnosis Office Visit 12/06/2020 10:40a [facility] Jimmie Bustillo MD 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 Office Visit 10/07/2020 9:00a [facility] Terry Slade DO J84.9 Interstitial pulmonary disea se, unspecified G47.33 Obstructive sleep apnea (hardik lt) (pediatric) Office Visit 10/05/2020 1:00p [facility] Jimmie Bustillo MD J31.0 Chronic rhinitis H04.551 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 Office Visit 09/09/2020 3:10p [facility] Jimmie Bustillo MD R22.1 Localized swelling, mass and lump, neck H04.551 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 Office Visit 08/31/2020 9:00a [facility] Jimmie Bustillo MD 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 Z48.89 Encounter for other specifie d surgical aftercare Office Visit 08/19/2020 8:20a [facility] Jimmie Bustillo MD 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 Office Visit 07/19/2020 8:00a [facility] Jimmie Bustillo MD 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 J31.0 Chronic rhinitis Office Visit 07/09/2020 11:15a [facility] NORMA Pinto Z12.11 Encounter for screening for malignant neoplasm of colon Z86.010 Personal history of colonic polyps R12 Heartburn Assessments Date Code Description Provider 12/06/2020 H04.551 Acquired stenosis of right nasol acrimal duct Jimmie Bustillo MD 11/08/2020 H04.551 Acquired stenosis of right nasol acrimal duct Jimmie Bustillo MD 10/07/2020 J84.9 Interstitial pulmonary disease, unspecified Reilly Slade, DO 10/07/2020 G47.33 Obstructive sleep apnea (adult) (pediatric) Reilly Slade, DO 10/05/2020 J31.0 Chronic rhinitis Jimmie Bustillo MD 10/05/2020 H04.551 Acquired stenosis of right nasol acrimal duct Jimmie Bustillo MD 09/09/2020 R22.1 Localized swelling, mass and lum p, neck Jimmie Bustillo MD 09/09/2020 H04.551 Acquired stenosis of right nasol acrimal duct Jimmie Bustillo MD 08/31/2020 H04.551 Acquired stenosis of right nasol acrimal duct Jimmie Bustillo MD 08/31/2020 Z48.89 Encounter for other specified harrison rgical aftercare Jimmie Bustillo MD 08/25/2020 H04.551 Acquired stenosis of right nasol acrimal duct Jimmie Bustillo MD 08/19/2020 H04.551 Acquired stenosis of right nasol acrimal duct Jimmie Bustillo MD 07/19/2020 H04.551 Acquired stenosis of right nasol acrimal duct Jimmie Bustillo MD 07/19/2020 J31.0 Chronic rhinitis Jimmie Bustillo MD 07/09/2020 Z12.11 Encounter for screening for jossy gnant neoplasm of colon Annia Saxena DENY Kahn-C 07/09/2020 Z86.010 Personal history of colonic poly ps Annia Saxena DENY Kahn-C 07/09/2020 R12 Heartburn Annia Santiago DENY lazo-Jose Luis Plan of Treatment No Information Available Functional Status Functional Condition Comment Date Status Independent with all ADL's Activ e Independent with all IADL's Acti ve Mental Status Mental Condition Comment Date Status Cognitive ability not impaired A ctive Referrals Refer to Reason for Referral Status Appt Jimmie Butler M.D. SECURITY TRAINER WATERING AND DRAINAGE RT EYE REF Kael TORRES INS MEDICARE AND AARP Closed 07/19/2020 [address] [place] [id number] [phone]
--- OUTSIDE RECORDS SUMMARY | 2021-02-04 11:33 | CCD | Continuity of Care Document ---
Author Author Judy BUSTILLO MD Organization Unknown Address [address] [facility] [address] [place] [address] Phone [phone] Care Team Providers Care Assistant Curator Name Role Phone [place], Audiology AUTM [phone] Sulaiman Bianchi M.D. AUTM [phone] Irais Inman M.D. AUTM [phone] AUTM Unavailable Bird Torres D.O. AUTM [phone] Central Scheduling AUTM [phone] Problems Active Problems Provider Date Wheezing Isadora [...] CPT Code Status Date Vaccine Lot # [id number] Given 02/09/2015 Influenza Virus Split 3 Yrs And Above For Intramuscular Use 29609 Given 04/01/2013 TB Intradermal Test 58698 Given 01/29/2013 Influenza Virus Split 3 Yrs And Above For Intramuscular Use 76106 Given 12/22/2009 Pneumococcal PPSV23 26421 Refused 01/22/2017 Influenza Virus Split 3 Yrs And Above For Intramuscular Use Vital Signs Date Vital Result Comment 12/06/2020 10:44am Height 59 inches 4'11" Weight 178.00 lb BMI (Body Mass Index) 35.9 kg/m2 [place] Body Weight 100 lb Weight 80.741 kg BSA (Body Surface Area) 1.76 m2 11/08/2020 1:28pm Height 59 inches 4'11" Weight 179.00 lb BMI (Body Mass Index) 36.1 kg/m2 [place] Body Weight 100 lb Weight 81.194 kg BSA (Body Surface Area) 1.76 m2 Results Test Acquired Date Facility Test Result H/L Range Note FVL/[place] 10/07/2020 [facility] SEE IMAGE FVC-Pred 2.30 L FVC-Pre 1.83 L FVC-%Pred-Pre 79 L FVC-LLN 1.71 L Fev1-Pred 1.72 L Fev1-Pre 1.29 L Fev1-%Pred-Pre 75 L Fev1-LLN 1.22 L Fev6-Pred 2.18 L Fev6-Pre 1.83 L Fev6-%Pred-Pre 83 L Fev6-LLN 1.60 L Hqy7arh-Oevk 75 % Vjr2sek-Hvb 70 % Idn5iaz-%Pred-Pre 93 % Hjh9ora-RMY 65 % Dkq2hfd-Ptdr 95 % Guu7ukq-Enh 100 % Ajx3bxq-%Pred-Pre 105 % FEFMax-Pred 4.67 L/E/sec FEFMax-Pre 3.04 L/E/sec FEFMax-%Pred-Pre 65 L/E/sec FEFMax-LLN 3.21 L/E/sec Yji5255-Agji 1.48 L/E/sec Nlz5208-Oty 0.93 L/E/sec Fvx5152-%Pred-Pre 62 L/E/sec Eok9007-XMF 0.43 L/E/sec ExpTime-Pre 4.86 sec Qfs3dre6-Phdq 79 % Jzc7jey4-Kzu 70 % Vfk5eyg6-%Pred-Pre 89 % Iom9vcp6-OHW 70 % Laboratory test finding 08/31/2020 [facility] Main Lab [address] [place], [place] [id number] [phone] Nasal And Sinus Culture FULL REPORT IN L <SEE NOTE> N ormal 1 Laboratory test finding 08/25/2020 [facility] Main Lab [address] [place], [place] [address] [phone] Bedside Glucose 145 mg/dL High 83-110 Laboratory test finding 08/25/2020 [facility] Main Lab [address] [place] [address] [phone] Bedside Glucose 192 mg/dL High 83-110 1 [...] CSLI standards. Procedures Date Code Description Status 11/08/2020 41279 Endoscopy Nasal Diagnostic Compl eted 10/07/2020 24084 Office/Outpatient Established Mo d MDM 30-39 Min Completed 10/07/2020 67425 Spirometry Completed 10/05/2020 16906 Office/Outpatient Established SF MDM 10-19 Min Completed 10/05/2020 73287 Endoscopy Nasal Diagnostic Compl eted 09/09/2020 75772 Office/Outpatient Established Lo w MDM 20-29 Min Completed 08/25/2020 72501 Endoscopy Nasal/Sinus W/ Dacryoc ystorhinostomy Completed 08/19/2020 63703 Office/Outpatient Established Lo w MDM 20-29 Min Completed 07/19/2020 30709 Office/Outpatient Established Lo w MDM 20-29 Min Completed 07/09/2020 07634 Office/Outpatient Established Lo w MDM 20-29 Min Completed Medical Devices Description No Information Available Encounters Type Date Location Provider Dx Diagnosis Office Visit 10/07/2020 9:00a [facility] D arnaldo Slade DO J84.9 Interstitial pulmonary disea se, unspecified G47.33 Obstructive sleep apnea (hardik lt) (pediatric) Office Visit 10/05/2020 1:00p [facility] Jimmie Bustillo MD J31.0 Chronic rhinitis H04.551 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 Office Visit 09/09/2020 3:10p [facility] Jimmie Bustillo MD R22.1 Localized swelling, mass and lump, neck H04.551 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 Office Visit 08/31/2020 9:00a [facility] Jimmie Bustillo MD 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 Z48.89 Encounter for other specifie d surgical aftercare Office Visit 08/19/2020 8:20a [facility] Jimmie Bustillo MD 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 Office Visit 07/19/2020 8:00a [facility] Jimmie Bustillo MD 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 J31.0 Chronic rhinitis Office Visit 07/09/2020 11:15a [facility] Annia Kahn, RPA-C Z12.11 Encounter for screening for malignant neoplasm of colon Z86.010 Personal history of colonic polyps R12 Heartburn Assessments Date Code Description Provider 11/08/2020 H04.551 Acquired stenosis of right nasol acrimal duct Jimmie Bustillo MD 10/07/2020 J84.9 Interstitial pulmonary disease, unspecified Reilly Slade DO 10/07/2020 G47.33 Obstructive sleep apnea (adult) (pediatric) Reilly Slade DO 10/05/2020 J31.0 Chronic rhinitis Jimmie Bustillo [...] for other specified harrison rgical aftercare Jimmie Bustilol MD 08/25/2020 H04.551 Acquired stenosis of right nasol acrimal duct Jimmie Bustillo MD 08/19/2020 H04.551 Acquired stenosis of right nasol acrimal duct Jimmie Bustillo MD 07/19/2020 H04.551 Acquired stenosis of right nasol acrimal duct Jimmie Bustillo MD 07/19/2020 J31.0 Chronic rhinitis Jimmie Bustillo MD 07/09/2020 Z12.11 Encounter for screening for jossy gnant neoplasm of colon Annia SantiagoDENY lazo-C 07/09/2020 Z86.010 Personal history of colonic poly ps Annia Saxena DENY Kahn-C 07/09/2020 R12 Heartburn Annia Santiago clifton, RPA-C Plan of Treatment No Information Available Functional Status Functional Condition Comment Date Status Independent with all ADL's Activ e Independent with all IADL's Acti ve Mental Status Mental Condition Comment Date Status Cognitive ability not impaired A ctive Referrals Refer to Reason for Referral Status Appt Jimmie Butler M.D. MOVIE PROJECTIONIST WATERING AND DRAINAGE RT EYE REF Kael TORRES INS MEDICARE AND AARP Closed 07/19/2020 [address] [place] [address] [phone]
--- OUTSIDE RECORDS SUMMARY | 2021-02-04 11:33 | CCD ---
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 Active confirmed 99733014 Problem care home (current) use of insulin Z79.4 Activ e confirmed 330039334 Problem Mixed hyperlipidemia E78.2 Active confirmed 265445108 Problem Pulmonary fibrosis J84.10 Active confirmed 5 3642747 Problem Obesity, unspecified obesity severity, unspecified obe sity type E66.9 Active confirmed 326131239 Problem 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.43 Active confirmed 131441261 Problem Chronic diastolic congestive heart failure I50.32 Active confirmed 822601332 Problem Hypothyroidism (acquired) E03.9 Active confirmed 833056543 Problem Chronic kidney disease, stage 3 N18.3 Active confi rmed 640016264 Problem Basal cell carcinoma (BCC) of skin of nose C44.311 Active confirmed 441891241 Problem Leukocytosis, unspecified type D72.829 Active confi rmed 183292341 Problem Chronic systolic (congestive) heart failure I50.22 Active confirmed 333230248 Problem Atrial fibrillation and flutter I48.91 Active confi rmed 089415504 Problem Visual loss H54.7 Active confirmed 39377766 3 Problem Gastroparesis K31.84 Active confirmed 130794 006 Problem Esophageal reflux K21.9 Active confirmed 23 9069579 Problem Hypertensive kidney disease I12.9 Active confirmed 84338457 Problem Hearing loss of right ear, unspecified hearing loss type H91.91 Active confirmed 263361911 Problem 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 Active confirmed 848119690 Problem Arthritis of left knee M17.12 Active confirmed 8796011653601648 ALLERGIES Allergen (clinical drug ingredient) Drug/Non Drug Allergy do cumented on EMR Reaction Allergy Type Onset Date Status sitagliptin Januvia([facility] Code:[address]-44) Rash Drug Allergy Active azithromycin Azithromycin([facility] Code:[address]-96) Rash Drug All ergy Active amiodorone toxicity Non Drug Allergy Active lisinopril cough Drug Allergy Active ENCOUNTERS from 1945 to 2020-11-25 Encounter Location Date Provider Diagnosis [place] [id number] [facility] [phone] [place] [address] Nov, Irais Inman Hypothyroidism (acquired) E0 3.9 IMMUNIZATIONS Vaccine Route Administration Date Status Influenza [...] Education Language: Question Answer Notes Languages spoken: Indonesian Restoration: Question Answer Notes Restoration 24 [facility] Sexual Hx: Question Answer Notes Had sex [...] Notes Start Da te End Date Status Chlorthalidone 25 MG 1 tablet in the morning with food Orally Once a day for 30 day(s) Active Restasis 0.05 % 1 drop into affected eye Ophthalmic Twice a day Active Flonase 50 MCG/ACT 1 spray in each nostril Nasa lly Once a day, as needed for 90 days PRN Active Losartan Potassium 25 MG 1 tablet Orally Once a day for 90 days Apr, Active Lipitor 80 MG 1 tablet Orally Once a day Active Trulicity 0.75 MG/0.5ML as directed Subcutaneous Active Omeprazole 40 MG 1 capsule Orally Once a day for 90 days 0 Dec, Active glipiZIDE 10 MG 1 tablet 30 minutes before breakfast Orally twice wali ly Active Metoprolol Tartrate 100 MG 1 tablet with a 50mg tabtpe qual 150mg with food Orally Twice a day Not-Taking Digoxin 125 MCG 0.5 tablet Orally Once a day Active Furosemide 20 MG 1 tablet Orally Once a day for 90 days Feb, Not-Taking Calcium 250 MG as directed Orally Ac tive Sharon Molina 300 UNIT/ML [address] Bansal rx Active Bisoprolol Fumarate 10 MG 1 tablet Orally Once a day for 30 day(s) Active Folic Acid 1 MG 1 tablet Orally Once a day for 90 days Apr, Active Spironolactone 25 mg 0.5 tablet Orally Daily Dec, Active Levothyroxine Sodium 137 MCG 1 tablet in the morning o n an empty stomach Orally Once a day for 30 day(s) Nov, Active HumaLOG 100 UNIT/ML per SS Subcutaneous TID AC Dr. 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 Fauzia Bansal Medical History GERD Medical History DEVEN - uses CPAP; Dr. Slade Medical History H/o asthma Medical History Pulmonary fibrosis Medical History Macular degeneration - Dr. German Medical History Cataracts, left eye infection - Dr. Lopez delgadillo Medical History Atrial fibrillation/atrial flutter: [facility]: Dr. Kulkarni Medical History 03/2015 ECHO: [...] Treatment Notes Treatm ent Clinical Notes Nov, Hypothyroidism (acquired) (ICD-10 - E03.9) PLAN OF TREATMENT Medication Medication Name Sig Start Date Stop Date Methotrexate Sodium 2.5 MG 4 tablets as directed Orally Once weekly for 90 days Apr, Folic Acid 1 MG 1 tablet Orally Once a day for 90 days Apr, Levothyroxine Sodium 137 MCG 1 tablet in the morning o n an empty stomach Orally Once a day for 30 day(s) Nov, Future Test Test Name Order Date FREE T4 & TSH PANEL [id number] Next Appt Details Provider Name:Irais Blandon Henny, 2020-12-20 11:45:00 AM, [address] [place] [address], , [place], [address], Provider Name:Kathie Linder, 03:45:00 PM, [address] [place] [address], , [place], [address], Insurance Providers Payer Name Payer Address Payer Phone Insured Name Patient Relati onship to Insured Coverage Start Date Coverage End Date MEDICARE Part A and B [address] [facility] [phone] [facility] OPTIONS [facility] [address] [facility] [phone] LISA DIAMOND
--- OUTSIDE RECORDS SUMMARY | 2021-02-04 11:33 | CCD | Continuity of Care Document ---
Author Author Judy BUSTILLO MD Organization Unknown Address [address] [facility] [address] [facility] [address] [place] [address] Phone [phone] Care Team Providers Care Sprinkling System Irrigator Name Role Phone [place], Audiology AUTM [phone] Sulaiman Bianchi M.D. AUTM [phone] Irais Inman M.D. AUTM [phone] AUTM Unavailable Bird Torres D.O. AUTM [phone] Central Scheduling AUTM [phone] Problems Active Problems Provider Date Wheezing Isadora [...] 2.5mg Tablets once a wk Unknown Sharon De Leonar 300U nit/ML Solution Pen-Inject 150 units kalyn [...] CPT Code Status Date Vaccine Lot # 39981 Given 02/09/2015 Influenza Virus Split 3 Yrs And Above For Intramuscular Use 08271 Given 04/01/2013 TB Intradermal Test 09582 Given 01/29/2013 Influenza Virus Split 3 Yrs And Above For Intramuscular Use 80715 Given 12/22/2009 Pneumococcal PPSV23 50214 Refused 01/22/2017 Influenza Virus Split 3 Yrs And Above For Intramuscular Use Vital Signs Date Vital Result Comment 11/08/2020 1:28pm Height 59 inches 4'11" Weight 179.00 lb BMI (Body Mass Index) 36.1 kg/m2 [place] Body Weight 100 lb Weight 81.194 kg BSA (Body Surface Area) 1.76 m2 10/07/2020 8:53am BP Systolic 128 mmHg BP Diastolic 74 mmHg Heart Rate 85 /min O2 % BldC Oximetry 98 % Height 59 inches 4'11" Weight 179.00 lb BMI (Body Mass Index) 36.1 kg/m2 [place] Body Weight 100 lb Weight 81.194 kg BSA (Body Surface Area) 1.76 m2 Results Test Acquired Date Facility Test Result H/L Range Note FVL/Jigar 10/07/2020 [facility] SEE IMAGE FVC-Pred 2.30 L FVC-Pre 1.83 L FVC-%Pred-Pre 79 L FVC-LLN 1.71 L Fev1-Pred 1.72 L Fev1-Pre 1.29 L Fev1-%Pred-Pre 75 L Fev1-LLN 1.22 L Fev6-Pred 2.18 L Fev6-Pre 1.83 L Fev6-%Pred-Pre 83 L Fev6-LLN 1.60 L Hiu3zpq-Gcyk 75 % Kvx6iur-Nza 70 % Ypp1gfi-%Pred-Pre 93 % Xoj3tsk-RCJ 65 % Uej4vyc-Pixa 95 % Kuh3pae-Ebw 100 % Xof7yys-%Pred-Pre 105 % FEFMax-Pred 4.67 L/E/sec FEFMax-Pre 3.04 L/E/sec FEFMax-%Pred-Pre 65 L/E/sec FEFMax-LLN 3.21 L/E/sec Dcz2949-Icjx 1.48 L/E/sec Ich4387-Ruj 0.93 L/E/sec Tqg4549-%Pred-Pre 62 L/E/sec Xgx5135-BMP 0.43 L/E/sec ExpTime-Pre 4.86 sec Rfx4pex0-Dgqx 79 % Whk3mrw9-Iee 70 % Mjw9pjd4-%Pred-Pre 89 % Wog9jrz3-TBX 70 % Laboratory test finding 08/31/2020 [facility] Main Lab [address] [place] [address] [phone] Nasal And Sinus Culture FULL REPORT IN L <SEE NOTE> N ormal 1 Laboratory test finding 08/25/2020 [facility] Main Lab [address] [place] [address] [phone] Bedside Glucose 145 mg/dL High 83-110 Laboratory test finding 08/25/2020 [facility] Main Lab [address] [place] [address] [phone] Bedside Glucose 192 mg/dL High 83-110 1 [...] standards. Procedures Date Code Description Status 11/08/2020 78468 Endoscopy Nasal Diagnostic Compl eted 10/07/2020 36360 Office/Outpatient Established Mo d MDM 30-39 Min Completed 10/07/2020 39351 Spirometry Completed 10/05/2020 74789 Office/Outpatient Established SF MDM 10-19 Min Completed 10/05/2020 77264 Endoscopy Nasal Diagnostic Compl eted 09/09/2020 44402 Office/Outpatient Established Lo w MDM 20-29 Min Completed 08/25/2020 66390 Endoscopy Nasal/Sinus W/ Dacryoc ystorhinostomy Completed 08/19/2020 99057 Office/Outpatient Established Lo w MDM 20-29 Min Completed 07/19/2020 36033 Office/Outpatient Established Lo w MDM 20-29 Min Completed 07/09/2020 57536 Office/Outpatient Established Lo w MDM 20-29 Min Completed Medical Devices Description No Information Available Encounters Type Date Location Provider Dx Diagnosis Office Visit 10/07/2020 9:00a [facility]do Slade DO J84.9 Interstitial pulmonary disea se, unspecified G47.33 Obstructive sleep apnea (hardik lt) (pediatric) Office Visit 10/05/2020 1:00p [facility] Jimmie Bustillo MD J31.0 Chronic rhinitis H04.551 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 Office Visit 09/09/2020 3:10p [facility] Jimmie Bustillo MD R22.1 Localized swelling, mass and lump, neck H04.551 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 Office Visit 08/31/2020 9:00a [facility] Jimmie Bustillo MD H04.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 Z48.89 Encounter for other specifie d surgical aftercare Office Visit 08/19/2020 8:20a [facility] Jimmie Bustillo MD H04.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 Office Visit 07/19/2020 8:00a [facility] Jimmie Bustillo MD H04.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 J31.0 Chronic rhinitis Office Visit 07/09/2020 11:15a [facility] Annia Kahn, RPA-C Z12.11 Encounter for screening [...] screening for jossy gnant neoplasm of colon NORMA Pinto 07/09/2020 Z86.010 Personal history of colonic poly ps NORMA Pinto 07/09/2020 R12 Heartburn NORMA Chatman Plan of Treatment Future Appointment(s):* 12/09/2020 1:30 pm - Jorge Luis Bond MD at [facility] 11/08/2020 - Jimmie Bustillo MD* 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 [employer] D[employer] RT EYE REF Kael TORRES INS MEDICARE AND AARP Closed 07/19/2020 [address] [place] [address] [phone]
--- OUTSIDE RECORDS SUMMARY | 2021-02-04 11:33 | CCD ---
Author Author Reilly Burks MD [facility] Organization Reilly Burks MD [facility] Address [address] [place] [phone] Phone Care Team Providers Care Control Room Technician Name Role Phone Henny PENA, Irais Blandon PP [phone] Brian WEEKS, Bird Unavailable [phone] Reason for Referral No Reason for Referral Recorded Problems Includes: Active, inactive, and resolved Problems All Visits Onset Date - Time Resolved Date - Time Provider Co ndition Status Conjunctivitis Acute Bacterial 09/02/2020 - 12:00AM 09/15/2020 - 1:17PM Bird Torres DO Resolved Lacrimal Stenosis Nasolacrimal Duct Acquired 07/16/2020 - 12 :00AM 09/15/2020 - 1:17PM Bird oTrres DO Resolved Epiphora Due To Excess Lacrimation [...] in Descemet's membrane 2 Week Follow-Up with Bidr villasenor DO 07/23/2018 Long-term use of insulin [...] a day in the right eye Polytrim 47250-9.1 UNIT/ML-% Ophthalmic Solution 03/12/2020 - 04/20/2020 Provider: [...] Recorded Vital Signs Includes: Vital Signs from 12/03/2019 through 12/02/2020No Vital Signs Recorded For Specified Dates Results Includes: Results from 12/03/2019 through 12/02/2020No Results Recorded For Specified Dates History of Present Illness History of Present Illness not supported for this document typeNo History of Present Illness Recorded Social History Description Last Updated No consumption of alcohol 11/09/2020 No tobacco use 11/09/2020 Not using drugs 11/09/2020 Smoking status : Never smoker 11/09/2020 Tobacco non-user 04/20/2020 Not using alcohol 02/11/2020 Not a current smoker 02/12/2019 Never smoked 04/30/2018 Procedures and Surgical History Includes: Procedures from 12/03/2019 through 12/02/2020 Procedures Code Diagnosis Performing Provider Service Location Service Date Intermediate Eye Exam Established Patient 81799 Dry eye syndrome of bilateral lacrimal glands, Conjunctival concretions, right eye, 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, left eye Bird Santacruz MD [facility] 09/14/2020 Intermediate Eye Exam Established Patient 00667 Other mucopurulent conjunctivitis, right eye Reilly Burks MD, FACS Reilly Burks MD [facility] 09/02/2020 PROBING LACRIMAL CANALICULI W OR W/O IRRIGATION (Right Side) 26075 Acquired stenosis of right nasolacrimal duct Bird Julian [facility] 07/16/2020 Intermediate Eye Exam Established Patient 73847 Peripheral opacity of cornea, right eye, Conjunctival concretions, right eye, Dry eye syndrome of right lacrimal gland, 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, left eye Bird Santacruz MD [facility] 06/15/2020 Intermediate Eye Exam Established Patient 39483 Recurrent erosion of cornea, right eye, 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, left eye, Peripheral opacity of cornea, right eye, Conjunctival concretions, right eye Bird Santacruz MD [facility] 05/13/2020 Intermediate Eye Exam Established Patient 62364 Recurrent erosion of cornea, right eye, Peripheral opacity of cornea, right eye, Conjunctival concretions, right eye, 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, left eye Bird Santacruz MD [facility] 04/28/2020 Intermediate Eye Exam Established Patient 25671 Recurrent erosion of cornea, right eye, 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, left eye, Atrophy of globe, left eye, Squamous blepharitis right upper eyelid Bird Santacruz MD [facility] 04/20/2020 Intermediate Eye Exam Established Patient 25782 Recurrent erosion of cornea, right eye, 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, left eye, Atrophy of globe, left eye, Peripheral opacity of cornea, right eye Bird Santacruz MD [facility] 04/08/2020 Intermediate Eye Exam Established Patient 53861 Recurrent erosion of cornea, right eye, Dry eye syndrome of right lacrimal gland, Squamous blepharitis right upper eyelid Bird Santacruz MD [facility] 04/02/2020 Intermediate Eye Exam Established Patient 58937 Recurrent erosion of cornea, right eye, 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, left eye, Atrophy of globe, left eye, Dry eye syndrome of right lacrimal gland Bird Santacruz MD [facility] 03/23/2020 Intermediate Eye Exam Established Patient 72482 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, left eye, Recurrent erosion of cornea, right eye, Squamous blepharitis right upper eyelid, Atrophy of globe, left eye Reilly Burks MD, [facility] Reilly Burks MD [facility] 03/16/2020 Intermediate Eye Exam Established Patient 89618 Recurrent erosion of cornea, right eye, 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, left eye, Atrophy of globe, left eye Bird Santacruz MD [facility] 03/12/2020 Intermediate Eye Exam Established Patient 57993 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, left eye, Atrophy of globe, left eye, Dry eye syndrome of right lacrimal gland Bird Santacruz MD [facility] 02/11/2020 Intermediate Eye Exam Established Patient 57031 Atrophy of globe, left eye, 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, left eye Bird Santacruz MD [facility] 01/02/2020 Surgical History Last Updated Surgical / procedural history Gastropar esis 2018, Gallbladder surgery 2007, Injections right eye by Dr. Hoover every 10 weeks, Endoscopic DCR w/ Dr. Webb on 08/25/20 09/15/2020 History of transplant of the left cornea [...] history Cardioversion September 22 with Pacemaker 11/09/2020 Reported medical history Non Hodgkins L ymphoma 2011, A-Fib 6796-1573, Gastroparesis 2017, CHF 2015, Squamous Cell Skin Cancer 2017, Pulmonary Fibrosis 0105-7065, Sleep Apnea, Anxiety, Anemia, Cardioversion September 2020 with Pacemaker 11/09/2020 History of the retina was abnormal 07/15/2020 History of diabetes mellitus Type 2 A1C 7.7 (may be i naccurate due to anemia) 06/15/2020 Currently wearing eyeglasses 04/30/2018 History of arthritis 04/30/2018 History of hyperlipidemia 04/30/2018 History of hypertension 04/30/2018 Family History Includes: Family History in patient's chart Description Last Updated Daughter's history of diabetes mellitus 11/09/2020 Daughter's history of hypertension 11/09/2020 Daughter's history of thyroid disorder 11/09/2020 Fraternal history of arthritis 11/09/2020 Fraternal history of diabetes mellitus 11/09/2020 Fraternal history of hypertension 11/09/2020 Fraternal history of stroke/cerebrovascular accident 0 11/09/2020 Maternal history of arthritis 11/09/2020 Maternal history of cataract 11/09/2020 Maternal history of diabetes mellitus 11/09/2020 Maternal history of hypertension 11/09/2020 Paternal history of arthritis 11/09/2020 Paternal history of cataract 11/09/2020 Paternal history of diabetes mellitus 11/09/2020 Paternal history of heart disease 11/09/2020 Paternal history of hypertension 11/09/2020 Son's history of diabetes mellitus 11/09/2020 Son's history of hypertension 11/09/2020 Sororal history of arthritis 11/09/2020 Sororal history of cataract 11/09/2020 Sororal history of diabetes mellitus 11/09/2020 Sororal history of hypertension 11/09/2020 Review of Systems Review of Systems not [...] - 12:00AM Active Encounters Includes: Encounters from 12/03/2019 through 12/02/2020 Encounter Provider Location Date Check-In Time Check-Out Time D iagnosis TRIAGE NON URGENT Bird Santacruz MD [facility] 9:15AM 11:09AM Hypotony of Eye, Conjunctiva l Concretions, Blepharitis Squamous, Dry Eye Syndrome Right Eye, Phthisis Bulbi Left Eye, Corneal Opacity 2 Month Follow up Bird Santacruz MD [facility] 7:16AM 8:10AM Hypotony of Eye, Conjunctiva l Concretions, Blepharitis Squamous, Dry Eye Syndrome Right Eye, Phthisis Bulbi Left Eye, Corneal Opacity TRIAGE NON URGENT Reilly Burks MD, FACS Reilly Burks MD [facility] 09/02/2020 7:16AM 7:58AM Lacrimal Stenosis Na solacrimal Duct Acquired, Conjunctivitis Acute Bacterial LACRIMAL IRRIGATION & PROBING IN OFFICE Global 1 0 day Bird Santacruz MD [facility] 07/16/2020 7:25AM 8:13AM Con junctival Concretions, Hypotony of Eye, Blepharitis Squamous, Dry Eye Syndrome Right Eye, Phthisis Bulbi Left Eye, Corneal Opacity, Lacrimal Stenosis Nasolacrimal Duct Acquired 1 Month Follow-Up Bird Santacruz MD [facility] 7:16AM 8:00AM Hypotony of Eye, Conjunctiva l Concretions, Blepharitis Squamous, Dry Eye Syndrome Right Eye, Phthisis Bulbi Left Eye, Corneal Opacity, Epiphora Due To Excess Lacrimation 2 Week Follow-Up Bird Santacruz MD [facility] 04/24 7:16AM 8:11AM Hypotony of Eye, Corneal Deg eneration Recurrent Erosion, Conjunctival Concretions, Blepharitis Squamous, Dry Eye Syndrome Right Eye, Phthisis Bulbi Left Eye, Corneal Opacity 1 Week Follow-Up Bird Santacruz MD [facility] 09/2020 7:30AM 8:23AM Hypotony of Eye, Corneal Deg eneration Recurrent Erosion, Blepharitis Squamous, Dry Eye Syndrome Right Eye, Phthisis Bulbi Left Eye, Corneal Opacity, Conjunctival Concretions 1 Week Follow-Up Bird Santacruz MD [facility] 03/24 7:26AM 8:52AM Hypotony of Eye, Corneal Deg eneration Recurrent Erosion, Blepharitis Squamous, Dry Eye Syndrome Right Eye, Phthisis Bulbi Left Eye, Corneal Opacity 1 Week Follow-Up Bird Santacruz MD [facility] 03/23 7:40AM 8:50AM Hypotony of Eye, Corneal Deg eneration Recurrent Erosion, Blepharitis Squamous, Dry Eye Syndrome Right Eye, Phthisis Bulbi Left Eye, Corneal Opacity 1 Week Follow-Up Bird Santacruz MD [facility] 03/23 7:28AM 8:11AM Corneal Degeneration Recurre nt Erosion, Hypotony of Eye, Blepharitis Squamous, Dry Eye Syndrome Right Eye, Phthisis Bulbi Left Eye Rx Refills/Changes Bird Torres DO 03/29/2020 020 4:21PM 03/23/2020 11:59PM 1 Week Follow-Up Bird Santacruz MD [facility] 04/2019 7:27AM 8:22AM Hypotony of Eye, Corneal Deg eneration Recurrent Erosion, Blepharitis Squamous, Dry Eye Syndrome Right Eye, Phthisis Bulbi Left Eye 3day followup Reilly Burks MD, FACS Reilly Burks MD [facility] 03/16/2020 8:11AM 8:54AM Hypotony of Eye, Corneal Deg eneration Recurrent Erosion, Blepharitis Squamous, Dry Eye Syndrome Right Eye, Phthisis Bulbi Left Eye 1 Month Follow-Up Bird Santacruz MD [facility] 7:47AM 8:53AM Hypotony of Eye, Blepharitis Squamous, Dry Eye Syndrome Right Eye, Phthisis Bulbi Left Eye, Corneal Degeneration Recurrent Erosion 6 Week Follow-Up Bird Santacruz MD [facility] 01/22 8:00AM 9:56AM Hypotony of Eye, Blepharitis Squamous, Dry Eye Syndrome Right Eye, Phthisis Bulbi Left Eye 6 Week Follow-Up Bird Santacruz MD [facility] 12/22 8:21AM 9:17AM Hypotony of Eye, Blepharitis Squamous, Phthisis Bulbi Left Eye, Dry Eye Syndrome Right Eye Insurance Includes: Active Insurance Policies Plan Name Member ID Group # Subscriber Relationship Effective Da [facility] 1 - Medicare Part [facility] ([facility]) [id number] Annmarie Oneal 2 - [facility] [id number] Judy Oneal Advance Directives Includes: Current Advance DirectivesNo Advance Directives Recorded Health Concerns Includes: Active Health ConcernsNo Active Health Concerns Recorded Goals Includes: Active GoalsNo Active Goals Recorded Interventions Includes: Interventions for active GoalsNo Interventions Recorded Evaluations & Outcomes Includes: Evaluations & Outcomes for active GoalsNo Outcomes Recorded
--- OUTSIDE RECORDS SUMMARY | 2021-02-04 11:33 | CCD ---
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 Active confirmed 05238665 Problem prison (current) use of insulin Z79.4 Activ e confirmed 977665808 Problem Mixed hyperlipidemia E78.2 Active confirmed 544021432 Problem Pulmonary fibrosis J84.10 Active confirmed 5 2925949 Problem Obesity, unspecified obesity severity, unspecified obe sity type E66.9 Active confirmed 559208001 Problem 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.43 Active confirmed 268996867 Problem Chronic diastolic congestive heart failure I50.32 Active confirmed 314029886 Problem Hypothyroidism (acquired) E03.9 Active confirmed 886369854 Problem Chronic kidney disease, stage 3 N18.3 Active confi rmed 511103691 Problem Basal cell carcinoma (BCC) of skin of nose C44.311 Active confirmed 977997591 Problem Leukocytosis, unspecified type D72.829 Active confi rmed 669351786 Problem Chronic systolic (congestive) heart failure I50.22 Active confirmed 172129200 Problem Atrial fibrillation and flutter I48.91 Active confi rmed 403596701 Problem Visual loss H54.7 Active confirmed 98993399 3 Problem Gastroparesis K31.84 Active confirmed 502627 006 Problem Esophageal reflux K21.9 Active confirmed 23 5069161 Problem Hypertensive kidney disease I12.9 Active confirmed 33003726 Problem Hearing loss of right ear, unspecified hearing loss type H91.91 Active confirmed 984681843 Problem 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 Active confirmed 549132809 Problem Arthritis of left knee M17.12 Active confirmed [id number] ALLERGIES Allergen (clinical drug ingredient) Drug/Non Drug Allergy do cumented on EMR Reaction Allergy Type Onset Date Status sitagliptin Januvia([facility] Code:[address]-16) Rash Drug Allergy Active azithromycin Azithromycin([facility] Code:[address]-83) Rash Drug All ergy Active amiodorone toxicity Non Drug Allergy Active lisinopril cough Drug Allergy Active ENCOUNTERS from 1945 to 2020-12-15 Encounter Location Date Provider Diagnosis [place] [id number] [facility] [phone] [place] [address] [facility] Vaccine Route Administration Date Status Influenza [...] Education Language: Question Answer Notes Languages spoken: South Korean Buddhist: Question Answer Notes Buddhist [facility] Sexual Hx: Question Answer Notes Had [...] Notes Start Da te End Date Status Bisoprolol Fumarate 10 MG 1 tablet Orally Once a day for 30 day(s) Active Spironolactone 25 mg 0.5 tablet Orally Daily Dec, Active Restasis 0.05 % 1 drop into affected eye Ophthalmic Twice a day Active Toulyndao SoloStar 300 UNIT/ML [address] Bansal rx Active Methotrexate Sodium 2.5 MG 4 tablets as directed Orally Once weekly for 90 days Apr, Active Digoxin 125 MCG 0.5 tablet Orally Once a day Active Chlorthalidone 25 MG 1 tablet in the morning with food Orally Once a day for 30 day(s) Active Doxycycline Hyclate 100 MG 1 tablet Orally every 12 hrs for 7 da y(s) Nov, Active HumaLOG 100 UNIT/ML per SS Subcutaneous TID AC Dr. Bansal rx Active Cefpodoxime Proxetil 200 MG 1 tablet with food Orally Twice a day for 7 day(s) Nov, Active Folic Acid 1 MG 1 tablet Orally Once a day for 90 days Apr, Active Eliquis 5 mg Orally twice daily cardiology Act danielle glipiZIDE 10 MG 1 tablet 30 minutes before breakfast Orally twice wali ly Active Calcium 250 MG as directed Orally Ac tive Flonase 50 MCG/ACT 1 spray in each nostril Nasa lly Once a day, as needed for 90 days PRN Active Trulicity 0.75 MG/0.5ML as directed Subcutaneous Active Losartan Potassium 25 MG 1 tablet [...] 90 days 0 8 Dec, 2018 Active Metoprolol Tartrate 100 MG 1 tablet with a 50mg tabtpe qual 150mg with food Orally Twice a day Not-Taking Furosemide 20 MG 1 tablet Orally Once a day for 90 days Feb, Not-Taking PROCEDURES No Information RESULTS No Results REASON FOR VISIT Abnormal CXR MEDICAL (GENERAL) HISTORY Type Description Date Medical History Follicular [facility] [facility] Oncology Medical History HTN Medical History Hypothyroidism Medical History Hyperlipidemia Medical History Type 2 IDDM: Dr. Fauzia Bansal Medical History GERD Medical History DEVEN - uses CPAP; Dr. Slade Medical History H/o asthma Medical History Pulmonary fibrosis Medical History Macular degeneration - Dr. German Medical History Cataracts, left eye infection - Dr. Lopez delgadillo Medical History Atrial fibrillation/atrial flutter: [facility]: Dr. Kulkarni Medical History 03/2015 ECHO: EF [...] History a fib 09/2020 Hospitalization History [facility] 2-09/23/20 Goals Section No Information Health Concerns No Information MEDICAL EQUIPMENT No Information MENTAL STATUS No Information FUNCTIONAL STATUS No Information ASSESSMENTS No Information PLAN OF TREATMENT Medication Medication Name Sig Start Date Stop Date Cefpodoxime Proxetil 200 MG 1 tablet with food Orally Twice a day for 7 day(s) Nov, Omeprazole 40 MG 1 capsule Orally Once a day for 90 days Dec, Folic Acid 1 MG 1 tablet Orally Once a day for 90 days Apr, Doxycycline Hyclate 100 MG 1 tablet Orally every 12 hrs for 7 day(s) Nov, Levothyroxine Sodium 137 MCG 1 tablet in the morning o n an empty stomach Orally Once a day for 30 day(s) Nov, Methotrexate Sodium 2.5 MG 4 tablets as directed Orally Once weekly for 90 days Apr, Next Appt Details Provider Name:Irais Inman, 2020-12-20 11:45:00 AM, [address] [place] [address] , [place], [address] Provider Name:Kathie Linder, 03:45:00 PM, [address] [place] [address], , [place], [address], Insurance Providers Payer Name Payer Address Payer Phone Insured Name Patient Relati onship to Insured Coverage Start Date Coverage End Date [employer] [facility] CLAIM DIV [address] [facility] [id number] LISA DIAMOND MEDICARE Part A and B [address] [facility] [phone] LISA DIAMOND
--- OUTSIDE RECORDS SUMMARY | 2021-02-04 11:33 | CCD | Continuity of Care Document ---
Author Author [employer] Organization Unknown Address [address] [place] [address] Phone [phone] Care Team Providers Care Stock Counter Name Role Phone Carlo De Souza MD AUTM [phone] Irais Inman MD AUTM [phone] Problems Active Problems Provider Date Type II diabetes mellitus uncontrolled Fauzia Bansal MD O nset: 11/19/2013 Type 2 diabetes mellitus Fauzia Bansal MD Onset: 11/20/19 14 Hypothyroidism Fauzia Bansal MD Onset: 11/19/2013 Postablative hypothyroidism Fauzia Bansal MD Onset: 11/19 Examination Other Specified Fauzia Bansal MD Onset: 11/19 Pure hypercholesterolemia Fauzia Bansal MD Onset: 014 Essential hypertension Fauzia Bansal MD Onset: 11/19/2013 Type II diabetes mellitus uncontrolled Fauzia Bansal MD O nset: 02/04/2015 Encounter for other specified special examinations Fauzia Bansal MD Onset: 02/04/2015 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 Fauzia Bansal MD Onset: 02/04/2015 Malaise and fatigue Tabatha Cruz DO Onset: 06/14/2015 Long-term current use of insulin Tabatha Cruz DO Onset : 06/14/2015 Morbid obesity Tabatha Cruz DO Onset: 06/14/2015 Long-term current use of systemic steroid Tabatha Cruz DO Onset: 06/14/2015 Chronic kidney disease stage 3 Fauzia Bansal MD Onset: Social History Type Date Description Comments Sex Unknown Tobacco Use Start: Unknown Never Smoked Cigarettes ETOH Use Rarely consumes alcohol Tobacco Use Start: Unknown Patient has never smoked Smoking Status Reviewed: 11/09/20 Patient has never smoked Allergies, Adverse Reactions, Alerts Active Allergies Reaction Severity Comments Date Antoineuvjune rash 11/05/2013 Lisinopril 11/09/2020 Amiodarone 11/09/2020 Latex Risk 11/09/2020 Medications Active Medications SIG Qnty Indications Ordering Provide r Date Trulicity 1.5mg/0.5ML Solution Pen -Inject use once weekly 2ml E11.22 Marifer Alba NP 1 Methotrexate 2.5mg Tablets 4 tablets weekly Marifer Alba NP 1 Folic Acid 1mg Tablets 1x pd Marifer Alba NP 05/11/2020 Losartan Potassium 25mg Tablets 1 tablet once a day Marifer Alba NP 1 Insulin Lispro 100Unit/ML Solution Inject Three Times A Day With Meals Per Sliding Scale Maximum Daily Dose = 90 Units 30units Fauzia Bansal MD 10/31/2019 Onetouch Delica Lancets Fine 30G 3 0G Misc use as directed 3 times a day 300units E11.22 Marifer Alba NP 09/30/2019 BD Pen Needle/Shae/Ultra -Fine/32G X 4mm 32G X 4 mm Misc use as directed 4x daily with insulin e11.65 400units Marifer Alba NP 08/21/2019 Baqsimi Two Pack 3mg/Dose Powder 1 spray in nostril for episode of hypoglycemia. 2units Marifer Alba NP 08/21/2019 Glipizide 10mg Tablets 1 tab by mouth twice a day 180tabs E11.22 Marifer Alba NP 0 Toujeo Max Solostar 300Unit/ML Solution Pen-Inject inject 150 units every morning maximum daily dose = 150 unit s 12ml E11.22 Marifer Alba NP 11/26/2018 Onetouch Ultra 2 w/Device Kit disp one meter e11.65 test blood sugars 3 x daily 1units Marifer Alba NP 05/20/2018 Onetouch Ultra Blue Strips use 1 strip to check glucose 4 times daily as needed 400units E11.65 Marifer Alba NP 02/17/2014 Insulin Syringe/1ML/31G X 5/16" 31G X 5/16" 1 ML Misc use as directed three times a day 300units E11.65 Marifer Alba NP 11/19/2013 Synthroid 137mcg Tablets 1 po qd Unknown Chlorthalidone 25mg Tablets Take One Tablet By Mouth Every Day Unknown Bisoprolol Fumarate 10mg Tablets 1 tab by mouth once daily. Niki Hi, PAT Restasis 0.05% Emulsion 1 drop in each eye once a day Unknown Calcium 500 + D [id number]-Asba Tab lets 1 po qd Unknown Spironolactone 25mg Tablets 1/2 tab po qd Unknown Digoxin 125mcg Tablets 1 tab by mouth once daily. Unknown Lasix 20mg Tablets 1 by mo uth every day Unknown Omeprazole 40mg Capsules DR 1 p.o. qd Unknown Atorvastatin Calcium 40mg Tablets 1 by mouth every day Unknown Eliquis 5mg Tablets 1 by mouth twice a day Unknown Multivitamins Capsules 1 po qd Unknown History Medications Trulicity 0.75mg/0.5 ML Solution Pen-Inject use once weekly 2ml E11.22 Marifer Alba NP - 11/09/2020 Immunizations Description No Information Available Vital Signs Date Vital Result Comment 11/09/2020 1:19pm BP Systolic 120 mmHg BP Diastolic 65 mmHg Heart Rate 74 /min Height 60 inches 5'0" Weight 177.38 lb BMI (Body Mass Index) 34.6 kg/m2 O2 % BldC Oximetry 96 % 08/03/2020 2:26pm BP Systolic 122 mmHg BP Diastolic 76 mmHg Heart Rate 62 /min Body Temperature 96.8 F Height 60 inches 5'0" Weight 180.25 lb BMI (Body Mass Index) 35.2 kg/m2 O2 % BldC Oximetry 98 % Results Test Acquired Date Facility Test Result H/L Range Note Laboratory test finding 08/03/2020 In House Glucose 113 Hemoglobin A1c 8.4 Laboratory test finding 06/15/2020 [facility] [address] [place] [address] (315)- - Fructosamine 284 umol/L Normal 0-285 1 1 Published reference interval for apparently healthy subjects between age 20 and 60 is 205 - 285 umol/L and in a poorly controlled diabetic population is 228 - 563 umol/L with a mean of 396 umol/L. Performed at: RN - [facility] [address] [id number] Header Set Up Operator: Saira Barreto MD, Phone: [phone] Procedures Date Code Description Status 11/09/2020 94172 Office/Outpatient Established Hi gh MDM 40-54 Min Completed 08/03/2020 82772 Office/Outpatient Established Mo d MDM 30-39 Min Completed 02/10/2020 [id number] Diabetic Foot Exam Completed Medical Devices Description No Information Available Encounters Type Date Location Provider Dx Diagnosis Office Visit 11/09/2020 1:15p DR. Fauzia Alba, N P E11.22 Type 2 diabetes mellitus w diabetic chronic kidney disease E78.00 Pure hypercholesterolemia, u nspecified I10 Essential (primary) hyperten leroy Z79.4 joint terminal attack controller (current) use of i nsulin N18.30 Chronic kidney disease, stag e 3 unspecified Office Visit 08/03/2020 2:15p DR. Fauzia Alba, Anabel P E11.22 Type 2 diabetes mellitus w diabetic chronic kidney disease E78.00 Pure hypercholesterolemia, u nspecified I10 Essential (primary) hyperten leroy Z79.4 USP (current) use of i nsulin N18.30 Chronic kidney disease, stag e 3 unspecified Assessments Date Code Description Provider 11/09/2020 E11.22 Type 2 diabetes mellitus with di abetic chronic kidney disease Marifer Alba NP 11/09/2020 E78.00 Pure hypercholesterolemia, unspe cified Marifer Alba NP 11/09/2020 I10 Essential (primary) hypertension Marifer Alba NP 11/09/2020 Z79.4 joint terminal attack controller (current) use of insul in Marifer Alba NP 11/09/2020 N18.30 Chronic kidney disease, stage 3 unspecified Marifer Alba NP 08/03/2020 E11.22 Type 2 diabetes mellitus with di abetic chronic kidney disease Marifer Alba NP 08/03/2020 E78.00 Pure hypercholesterolemia, unspe cified Marifer Alba NP 08/03/2020 I10 Essential (primary) hypertension Marifer Alba NP 08/03/2020 Z79.4 USP (current) use of insul in Marifer Alba NP 08/03/2020 N18.30 Chronic kidney disease, stage 3 unspecified Marifer Alba NP Plan of Treatment Future Appointment(s):* 02/10/2021 1:15 pm - Marifer Alba NP at DR. Fauzia Bansal 11/09/2020 - Marifer Alba NP* E11.22 Type 2 diabetes mellitus with diabetic chronic kidney disease* New Medication:* Trulicity 1.5 mg/0.5ML - use once weekly * Comments:* 10/08/2020- out of office A1c= 6.8 % (8.4 %, 7.7%, 7.7%, 7%, 6.7%, 11.7% 8.4%, 8.5%, 8.5%, 9.5%, 9.4%, 7.7%, 7.7%, 7.8%, 8.0%). On 06/15/20- Fructosamine= 284- A1c= 7 %Pt does have chronic anemiaMeter downloaded and reviewed- fasting- 97-267, lunch- 133-320, dinner- 192-361, bedtime- 174-401 Current medications: Toujeo MAX 150 units qam, Lispro 10-30 units with meals ( mainly taking 2-3 times daily) , Trulicity 0.75mg weekly- tolerating well.Oral medication: Glipizide 10mg 1 tab BIDUsing correction at bedtime- if BS>250= 4 units, >300= 10 unitsUnable to use Metformin or SGLT-2 due to renal insuff Labs done 07/07/20- Scr= 1.10, GFR= 51Will ncrease Trulicity 1.5 mg weeklyRTO 3 months. * Follow up:* RTO in 3 months- JL/CBF * E78.00 Pure hypercholesterolemia, unspecified* Comments:* Goal for LDL <70 due to diabetes and CAD. Labs done 04/20/2020- chol= 179, trig= 259, HDL= 37, LDL= 90Followed by cardiology * I10 Essential (primary) hypertension* Comments:* on ARB- LosartanContinue same BP 120/65 * Z79.4 joint terminal attack controller (current) use of insulin* Comments:* No dose adjustments today * N18.30 Chronic kidney disease, stage 3 unspecified* Comments:* The low GFR precludes the patient from oral medications such as metformin, SGLT-2 inhibitors and certain DPP-4 Labs done 07/07/20- Scr= 1.10, GFR= 51.8 Labs don e 10/08/20- Scr= 1.28, GFR= 43.5, HH= 41.2/13.3 Functional Status Description No Information Available Mental Status Description No Information Available Referrals Description No Information Available
--- OUTSIDE RECORDS SUMMARY | 2021-02-04 11:36 | CCD ---
Author Author [facility] Organization [facility] Address Unknown Phone Unavailable Care Team Providers Care Ramp Lead Name Role Phone Hemanth Kahn Annia RPA C Unavailable Unavailable Charlebois, A Annia RPA C Unavailable Unavailable Charlebois, A Annia RPA C Unavailable Unavailable Charlebois, A Annia RPA C Unavailable Unavailable Charlebois, A Annia RPA C Unavailable Unavailable Charlebois, A Annia RPA C Unavailable Unavailable Charlebois, A Annia RPA C Unavailable Unavailable Charlebois, A Annia RPA C Unavailable Unavailable Charlebois, A Annia RPA C Unavailable Unavailable Charlebois, A Annia RPA C Unavailable Unavailable Charlebois, A Annia RPA C Unavailable Unavailable Charlebois, A Annia RPA C Unavailable Unavailable Charlebois, A Annia RPA C Unavailable Unavailable Charlebois, A Annia RPA C Unavailable Unavailable Charlebois, A Annia RPA C Unavailable Unavailable Charlebois, A Annia RPA C Unavailable Unavailable Charlebois, A Annia RPA C Unavailable Unavailable Charlebois, A Annia RPA C Unavailable Unavailable Charlebois, A Annia RPA C Unavailable Unavailable Charlebois, A Annia RPA C Unavailable Unavailable Charlebois, A Annia RPA C Unavailable Unavailable Charlebois, A Annia RPA C Unavailable Unavailable Charlebois, A Annia RPA C Unavailable Unavailable Charlebois, A Annia RPA C Unavailable Unavailable Charlebois, A Annia RPA C Unavailable Unavailable Charlebois, A Annia RPA C Unavailable Unavailable Charlebois, A Annia RPA C Unavailable Unavailable Charlebois, A Annia RPA C Unavailable Unavailable Charlebois, A Annia RPA C Unavailable Unavailable Charlebois, A Annia RPA C Unavailable Unavailable Charlebois, A Annia RPA C Unavailable Unavailable Charlebois, A Annia RPA C Unavailable Unavailable Charlebois, A Annia RPA C Unavailable Unavailable Kael Huerta PA Unavailable Unavailable Kael Huerta PA Unavailable Unavailable Kael Huerta PA Unavailable Unavailable Kael Huerta PA Unavailable Unavailable Kael Huertaatt PA Unavailable Unavailable Kael Huertaatt PA Unavailable Unavailable Kael Huertaatt PA Unavailable Unavailable Kael Huertaatt PA Unavailable Unavailable Kael Huertaatt PA Unavailable Unavailable Kael Huertaatt PA Unavailable Unavailable Kael Huertaatt PA Unavailable Unavailable Kael Huertaatt PA Unavailable Unavailable Kael Huertaatt PA Unavailable Unavailable Kael Huertaatt PA Unavailable Unavailable Kael Huertaatt PA Unavailable Unavailable Kael Huertaatt PA Unavailable Unavailable Kael Huertaatt PA Unavailable Unavailable Kael Huertaatt PA Unavailable Unavailable Kael Huertaatt PA Unavailable Unavailable Huerta, M Barratt PA Unavailable Unavailable Huerta, M Barratt PA Unavailable Unavailable Huerta, M Barratt PA Unavailable Unavailable Huerta, M Barratt PA Unavailable Unavailable Huerta, M Barratt PA Unavailable Unavailable Huerta, M Barratt PA Unavailable Unavailable Huerta, M Barratt PA Unavailable Unavailable Huerta, M Barratt PA Unavailable Unavailable Huerta, M Barratt PA Unavailable Unavailable Huerta, M Barratt PA Unavailable Unavailable Rechlin, P Reilly DO Unavailable Unavailable Rechlin, P Reilly DO Unavailable Unavailable Rechlin, P Reilly DO Unavailable Unavailable Rechlin, P Reilly DO Unavailable Unavailable Rechlin, P Reilly DO Unavailable Unavailable Rechlin, P Reilly DO Unavailable Unavailable Rechlin, P Reilly DO Unavailable Unavailable Rechlin, P Reilly DO Unavailable Unavailable Rechlin, P Reilly DO Unavailable Unavailable Rechlin, P Reilly DO Unavailable Unavailable Rechlin, P Reilly DO Unavailable Unavailable Rechlin, P Reilly DO Unavailable Unavailable Rechlin, P Reilly DO Unavailable Unavailable Rechlin, P Reilly DO Unavailable Unavailable Rechlin, P Reilly DO Unavailable Unavailable Rechlin, P Reilly DO Unavailable Unavailable Rechlin, P Reilly DO Unavailable Unavailable Rechlin, P Reilly DO Unavailable Unavailable Rechlin, P Reilly DO Unavailable Unavailable Rechlin, P Reilly DO Unavailable Unavailable Rechlin, P Reilly DO Unavailable Unavailable Rechlin, P Reilly DO Unavailable Unavailable Rechlin, P Reilly DO Unavailable Unavailable Rechlin, P Reilly DO Unavailable Unavailable Rechlin, P Reilly DO Unavailable Unavailable Rechlin, P Reilly DO Unavailable Unavailable Rechlin, P Reilly DO Unavailable Unavailable Rechlin, P Reilly DO Unavailable Unavailable Rechlin, P Reilly DO Unavailable Unavailable Rechlin, P Reilly DO Unavailable Unavailable Rechlin, P Reilly DO Unavailable Unavailable Rechlin, P Reilly DO Unavailable Unavailable Rechlin, P Reilly DO Unavailable Unavailable Rechlin, P Reilly DO Unavailable Unavailable Rechlin, P Reilly DO Unavailable Unavailable Rechlin, P Reilly DO Unavailable Unavailable Rechlin, P Reilly DO Unavailable Unavailable Rechlin, P Reilly DO Unavailable Unavailable Rechlin, P Reilly DO Unavailable Unavailable Rechlin, P Reilly DO Unavailable Unavailable Rechlin, P Reilly DO Unavailable Unavailable Rechlin, P Reilly DO Unavailable Unavailable Rechlin, P Reilly DO Unavailable Unavailable Rechlin, P Reilly DO Unavailable Unavailable Rechlin, P Reilly DO Unavailable Unavailable Rechlin, P Reilly DO Unavailable Unavailable Rechlin, P Reilly DO Unavailable Unavailable Rechlin, P Reilly DO Unavailable Unavailable Rechlin, P Reilly DO Unavailable Unavailable Rechlin, P Reilly DO Unavailable Unavailable Rechlin, P Reilly DO Unavailable Unavailable Gaming Hebert, Hemanth Grover MD, FACS Unavailable Unavailable Gaming Hebert, Hemanth Grover MD, FACS Unavailable Unavailable Gaming Hebert, Hemanth Grover MD, FACS Unavailable Unavailable Gaming Hebert, Hemanth Grover MD, FACS Unavailable Unavailable Gaming Hebert, Hemanth Grover MD, FACS Unavailable Unavailable Gaming Hebert, Hemanth Grover MD, FACS Unavailable Unavailable Gaming Hebert, Hemanth Grover MD, FACS Unavailable Unavailable Gaming Hebert, Hemanth Grover MD, FACS Unavailable Unavailable Gaming Hebert, Hemanth Grover MD, FACS Unavailable Unavailable Gaming Hebert, Hemanth Grover MD, FACS Unavailable Unavailable Gaming Hebert, Hemanth Grover MD, FACS Unavailable Unavailable Gaming Hebert, Hemanth Grover MD, FACS Unavailable Unavailable Gaming Hebert, Hemanth Grover MD, FACS Unavailable Unavailable Gamign Hebert, Hemanth Grover MD, FACS Unavailable Unavailable Gaming Hebert, Hemanth Grover MD, FACS Unavailable Unavailable Gaming Hebert, Hemanth Grover MD, FACS Unavailable Unavailable Gaming Hebert, Hemanth Grover MD, FACS Unavailable Unavailable Gaming Hebert, Hemanth Grover MD, FACS Unavailable Unavailable Gaming Hebert, Hemanth Grover MD, FACS Unavailable Unavailable Gaming Hebert, Hemanth Grover MD, FACS Unavailable Unavailable Gaming Hebert, Hemanth Grover MD, FACS Unavailable Unavailable Gaming Hebert, Hemanth Grover MD, FACS Unavailable Unavailable Gaming Hebert, Hemanth Grover MD, FACS Unavailable Unavailable Gaming Hebert, Hemanth Grover MD, FACS Unavailable Unavailable Gaming Hebert, Hemanth Grover MD, FACS Unavailable Unavailable Gaming Hebert, Hemanth Grover MD, FACS Unavailable Unavailable Gaming Hebert, Hemanth Grover MD, FACS Unavailable Unavailable Gaming Hebert, Hemanth Grover MD, FACS Unavailable Unavailable Gaming Hebert, Hemanth Grover MD, FACS Unavailable Unavailable Gaming Hebert, Hemanth Grover MD, FACS Unavailable Unavailable Gaming Hebert, Hemanth Grover MD, FACS Unavailable Unavailable Gaming Hebert, Hemanth Grover MD, FACS Unavailable Unavailable Gaming Hebert, Hemanth Grover MD, FACS Unavailable Unavailable Gaming Hebert, Hemanth Grover MD, FACS Unavailable Unavailable Gaming Hebert, Hemanth Grover MD, FACS Unavailable Unavailable Gaming Hebert, Hemanth Grover MD, FACS Unavailable Unavailable Gaming Hebert, Hemanth Grover MD, FACS Unavailable Unavailable Gaming Hebert, Hemanth Grover MD, FACS Unavailable Unavailable Gaming Hebert, Hemanth Grover MD, FACS Unavailable Unavailable Vaneenenaam, Terry Belle MD Unavailable Unavailable Vaneenenaam, Terry Belle MD Unavailable Unavailable Vaneenenaam, Terry Belle MD Unavailable Unavailable Vaneenenaam, Terry Belle MD Unavailable Unavailable Vaneenenaam, Terry Belle MD Unavailable Unavailable Vaneenenaam, Terry Belle MD Unavailable Unavailable Vaneenenaam, Terry Belle MD Unavailable Unavailable Vaneenenaam, Terry Belle MD Unavailable Unavailable Vaneenenaam, Terry Belle MD Unavailable Unavailable Vaneenenaam, Terry Belle MD Unavailable Unavailable Vaneenenaam, Terry Belle MD Unavailable Unavailable Vaneenenaam, Terry Belle MD Unavailable Unavailable Terry Alvarez MD Unavailable Unavailable Terry Alvarez MD Unavailable Unavailable Terry Alvarez MD Unavailable Unavailable Terry Alvarez MD Unavailable Unavailable Terry Alvarez MD Unavailable Unavailable Terry Alvarez MD Unavailable Unavailable Terry Alvarez MD Unavailable Unavailable Terry Alvarez MD Unavailable Unavailable Terry Alvarez MD Unavailable Unavailable Terry Alvarez MD Unavailable Unavailable Terry Alvarez MD Unavailable Unavailable Terry Alvarez MD Unavailable Unavailable Terry Alvarez MD Unavailable Unavailable Terry Alvarez MD Unavailable Unavailable Terry Alvarez MD Unavailable Unavailable Terry Alvarez MD Unavailable Unavailable Terry Alvarez MD Unavailable Unavailable Terry Alvarez MD Unavailable Unavailable Terry Alvarez MD Unavailable Unavailable Terry Alvarez MD Unavailable Unavailable Terry Alvarez MD Unavailable Unavailable Terry Alvarez MD Unavailable Unavailable Terry Alvarez MD Unavailable Unavailable Terry Alvarez MD Unavailable Unavailable Terry Alvarez MD Unavailable Unavailable Terry Alvarez MD Unavailable Unavailable Terry Alvarez MD Unavailable Unavailable Terry Alvarez MD Unavailable Unavailable Terry Alvarez MD Unavailable Unavailable Terry Alvarez MD Unavailable Unavailable Terry Alvarez MD Unavailable Unavailable Terry Alvarez MD Unavailable Unavailable Terry Alvarez MD Unavailable Unavailable Terry Alvarez MD Unavailable Unavailable Shantal Kulkarni MD Unavailable Unavailable Shantal Kulkarni MD Unavailable Unavailable Shantal Kulkarni MD Unavailable Unavailable Shantal Kulkarni MD Unavailable Unavailable Shantal Kulkarni MD Unavailable Unavailable Shantal Kulkarni MD Unavailable Unavailable Shantal Kulkarni MD Unavailable Unavailable Shantal Kulkarni MD Unavailable Unavailable Shantal Kulkarni MD Unavailable Unavailable Shantal Kulkarni MD Unavailable Unavailable Shantal Kulkarni MD Unavailable Unavailable Shantal Kulkarni MD Unavailable Unavailable Shantal Kulkarni MD Unavailable Unavailable Shantal Kulkarni MD Unavailable Unavailable Shantal Kulkarni MD Unavailable Unavailable Shantal Kulkarni MD Unavailable Unavailable Shantal Kulkarni MD Unavailable Unavailable Shantal Kulkarni MD Unavailable Unavailable Shantal Kulkarni MD Unavailable Unavailable Shantal Kulkarni MD Unavailable Unavailable Shantal Kulkarni MD Unavailable Unavailable Shantal Kulkarni MD Unavailable Unavailable Shantal Kulkarni MD Unavailable Unavailable Shantal Kulkarni MD Unavailable Unavailable Shantal Kulkarni MD Unavailable Unavailable Shantal Kulkarni MD Unavailable Unavailable Shantal Kulkarni MD Unavailable Unavailable Shantal Kulkarni MD Unavailable Unavailable Shantal Kulkarni MD Unavailable Unavailable Alfredo Kulkarnitech Unavailable Unavailable Alfredo Kulkarnitech Unavailable Unavailable Shantal Kulkarni MD Unavailable Unavailable Alfredo Kulkarnitech Unavailable Unavailable Shantal Kulkarni MD Unavailable Unavailable Alfredo Kulkarnitech Unavailable Unavailable Alfredo Kulkarnitech Unavailable Unavailable Alfredo Kulkarnitech Unavailable Unavailable Shantal Kulkarni MD Unavailable Unavailable Alfredo Kulkarnitech Unavailable Unavailable Shantal Kulkarni MD Unavailable Unavailable Shantal Kulkarni MD Unavailable Unavailable Shantal Kulkarni MD Unavailable Unavailable Alfredo Kulkarnitech Unavailable Unavailable Shantal Kulkarni MD Unavailable Unavailable Shantal Kulkarni MD Unavailable Unavailable Shantal Kulkarni MD Unavailable Unavailable Shantal Kulkarni MD Unavailable Unavailable Alfredo Kulkarnitech Unavailable Unavailable Shantal Kulkarni MD Unavailable Unavailable Shantal Kulkarni MD Unavailable Unavailable Shantal Kulkarni MD Unavailable Unavailable Shantal Kulkarni MD Unavailable Unavailable Shantal Kulkarni MD Unavailable Unavailable Alfredo Kulkarnitech Unavailable Unavailable Alfredo Kulkarnitech Unavailable Unavailable Alfredo Kulkarnitech Unavailable Unavailable Shantal Kulkarni MD Unavailable Unavailable Shantal Kulkarni MD Unavailable Unavailable Crow Arguello MD Unavailable Unavaila Crow Car MD Unavailable Unavaila Crow Car MD Unavailable Unavaila Crow Car MD Unavailable Unavaila Crow Car MD Unavailable Unavaila ble MigeedCrow MD Unavailable Unavaila ble Migeed, Crow Burton MD Unavailable Unavaila ble MigeedCrow MD Unavailable Unavaila ble MigeedCrow MD Unavailable Unavaila ble Migeed, Crow Burton MD Unavailable Unavaila ble MigeedCrow MD Unavailable Unavaila ble Migeed, Crow Burton MD Unavailable Unavaila ble MigeedCrow MD Unavailable Unavaila ble Migeed, Crow Burton MD Unavailable Unavaila ble Migeed, Crow Burton MD Unavailable Unavaila ble Migeed, Crow Burton MD Unavailable Unavaila ble Migeed, Corw Burton MD Unavailable Unavaila ble Migeed, Crow Burton MD Unavailable Unavaila ble Migeed, Crow Burton MD Unavailable Unavaila ble Migeed, Crow Burton MD Unavailable Unavaila ble Migeed, Crow Burton MD Unavailable Unavaila ble Migeed, Crow Burton MD Unavailable Unavaila ble Migeed, Crow Burton MD Unavailable Unavaila ble Migeed, Crow Burton MD Unavailable Unavaila ble Migeed, Crow Burton MD Unavailable Unavaila ble Migeed, Crow Burton MD Unavailable Unavaila ble MigeedCrow MD Unavailable Unavaila ble MigeedCrow MD Unavailable Unavaila ble MigeedCrow MD Unavailable Unavaila ble MigeedCrow MD Unavailable Unavaila ble MigeedCrow MD Unavailable Unavaila ble MigeedCrow MD Unavailable Unavaila ble MigeedCrow MD Unavailable Unavaila ble MigeedCrow MD Unavailable Unavaila ble MigeedCrow MD Unavailable Unavaila ble MigeedCrow MD Unavailable Unavaila ble Migeed, Crow Burton MD Unavailable Unavaila ble Migeed, Crow Burton MD Unavailable Unavaila ble Migeed, Crow Burton MD Unavailable Unavaila ble Migeed, Crow Burton MD Unavailable Unavaila ble Migeed, Crow Burton MD Unavailable Unavaila ble Migeed, Crow Burton MD Unavailable Unavaila ble Migeed, Crow Burton MD Unavailable Unavaila ble Migeed, Crow Burton MD Unavailable Unavaila ble Migeed, Crow Burton MD Unavailable Unavaila ble Migeed, Crow Burton MD Unavailable Unavaila ble Migeed, Crow Burton MD Unavailable Unavaila ble Migeed, Crow Burton MD Unavailable Unavaila ble Migeed, Crow Burton MD Unavailable Unavaila ble PARTH, B TJ ASSISTANT PRESS OPERATOR OFFSET Unavailable Unavailable PARTH, B TJ ASSISTANT PRESS OPERATOR OFFSET Unavailable Unavailable PARTH, B TJ ASSISTANT PRESS OPERATOR OFFSET Unavailable Unavailable PARTH, B TJ ASSISTANT PRESS OPERATOR OFFSET Unavailable Unavailable PARTH, B TJ ASSISTANT PRESS OPERATOR OFFSET Unavailable Unavailable PARTH, B TJ ASSISTANT PRESS OPERATOR OFFSET Unavailable Unavailable PARTH, B TJ ASSISTANT PRESS OPERATOR OFFSET Unavailable Unavailable PARTH, B TJ ASSISTANT PRESS OPERATOR OFFSET Unavailable Unavailable PARTH, B TJ ASSISTANT PRESS OPERATOR OFFSET Unavailable Unavailable PARTH, B TJ ASSISTANT PRESS OPERATOR OFFSET Unavailable Unavailable PARTH, B TJ ASSISTANT PRESS OPERATOR OFFSET Unavailable Unavailable PARTH, B TJ ASSISTANT PRESS OPERATOR OFFSET Unavailable Unavailable PARTH, B TJ ASSISTANT PRESS OPERATOR OFFSET Unavailable Unavailable PARTH, B TJ ASSISTANT PRESS OPERATOR OFFSET Unavailable Unavailable PARTH, B TJ ASSISTANT PRESS OPERATOR OFFSET Unavailable Unavailable PARTH, B TJ ASSISTANT PRESS OPERATOR OFFSET Unavailable Unavailable PARTH, B TJ ASSISTANT PRESS OPERATOR OFFSET Unavailable Unavailable PARTH, B TJ ASSISTANT PRESS OPERATOR OFFSET Unavailable Unavailable PARTH, B TJ ASSISTANT PRESS OPERATOR OFFSET Unavailable Unavailable PARTH, B TJ ASSISTANT PRESS OPERATOR OFFSET Unavailable Unavailable PARTH, B TJ ASSISTANT PRESS OPERATOR OFFSET Unavailable Unavailable PARTH, B TJ ASSISTANT PRESS OPERATOR OFFSET Unavailable Unavailable PARTH, B TJ ASSISTANT PRESS OPERATOR OFFSET Unavailable Unavailable PARTH, B TJ ASSISTANT PRESS OPERATOR OFFSET Unavailable Unavailable PARTH, B TJ ASSISTANT PRESS OPERATOR OFFSET Unavailable Unavailable PARTH, B TJ ASSISTANT PRESS OPERATOR OFFSET Unavailable Unavailable PARTH, B TJ ASSISTANT PRESS OPERATOR OFFSET Unavailable Unavailable PARTH, B TJ ASSISTANT PRESS OPERATOR OFFSET Unavailable Unavailable PARTH, B TJ ASSISTANT PRESS OPERATOR OFFSET Unavailable Unavailable PARTH, B TJ ASSISTANT PRESS OPERATOR OFFSET Unavailable Unavailable PARTH, B TJ ASSISTANT PRESS OPERATOR OFFSET Unavailable Unavailable PARTH, B TJ ASSISTANT PRESS OPERATOR OFFSET Unavailable Unavailable PARTH, B TJ ASSISTANT PRESS OPERATOR OFFSET Unavailable Unavailable PARTH, B TJ ASSISTANT PRESS OPERATOR OFFSET Unavailable Unavailable PARTH, B TJ ASSISTANT PRESS OPERATOR OFFSET Unavailable Unavailable PARTH, B TJ ASSISTANT PRESS OPERATOR OFFSET Unavailable Unavailable PARTH, B TJ ASSISTANT PRESS OPERATOR OFFSET Unavailable Unavailable PARTH, B TJ ASSISTANT PRESS OPERATOR OFFSET Unavailable Unavailable PARTH, B TJ ASSISTANT PRESS OPERATOR OFFSET Unavailable Unavailable PARTH, B TJ ASSISTANT PRESS OPERATOR OFFSET Unavailable Unavailable PARTH, B TJ ASSISTANT PRESS OPERATOR OFFSET Unavailable Unavailable PARTH, B TJ ASSISTANT PRESS OPERATOR OFFSET Unavailable Unavailable PARTH, B TJ ASSISTANT PRESS OPERATOR OFFSET Unavailable Unavailable PARTH, B TJ ASSISTANT PRESS OPERATOR OFFSET Unavailable Unavailable PARTH, B TJ ASSISTANT PRESS OPERATOR OFFSET Unavailable Unavailable PARTH, B TJ ASSISTANT PRESS OPERATOR OFFSET Unavailable Unavailable PARTH, B TJ ASSISTANT PRESS OPERATOR OFFSET Unavailable Unavailable PARTH, B TJ ASSISTANT PRESS OPERATOR OFFSET Unavailable Unavailable PARTH, B TJ ASSISTANT PRESS OPERATOR OFFSET Unavailable Unavailable PARTH, B TJ ASSISTANT PRESS OPERATOR OFFSET Unavailable Unavailable PARTH, B TJ ASSISTANT PRESS OPERATOR OFFSET Unavailable Unavailable PARTH, B TJ ASSISTANT PRESS OPERATOR OFFSET Unavailable Unavailable PARTH, B TJ ASSISTANT PRESS OPERATOR OFFSET Unavailable Unavailable PARTH, B TJ ASSISTANT PRESS OPERATOR OFFSET Unavailable Unavailable PARTH, B TJ ASSISTANT PRESS OPERATOR OFFSET Unavailable Unavailable PARTH, B TJ ASSISTANT PRESS OPERATOR OFFSET Unavailable Unavailable PARTH, B TJ ASSISTANT PRESS OPERATOR OFFSET Unavailable Unavailable PARTH, B TJ ASSISTANT PRESS OPERATOR OFFSET Unavailable Unavailable PARTH, B TJ ASSISTANT PRESS OPERATOR OFFSET Unavailable Unavailable PARTH, B TJ ASSISTANT PRESS OPERATOR OFFSET Unavailable Unavailable PARTH, B TJ ASSISTANT PRESS OPERATOR OFFSET Unavailable Unavailable PARTH, B TJ ASSISTANT PRESS OPERATOR OFFSET Unavailable Unavailable Jimmie Webb MD Unavailable Unavailable Jimmie Webb MD Unavailable Unavailable Jimmie Webb MD Unavailable Unavailable Jimmie Webb MD Unavailable Unavailable Jimmie Webb MD Unavailable Unavailable Jimmie Webb MD Unavailable Unavailable Jimmie Webb MD Unavailable Unavailable Jimmie Webb MD Unavailable Unavailable Jimmie Webb MD Unavailable Unavailable Jimmie Webb MD Unavailable Unavailable Jimmie Webb MD Unavailable Unavailable Jimmie Webb MD Unavailable Unavailable Jimmie Webb MD Unavailable Unavailable Jimmie Webb MD Unavailable Unavailable Jimmie Webb MD Unavailable Unavailable Jimmie Webb MD Unavailable Unavailable Jimmie Webb MD Unavailable Unavailable Jimmie Webb MD Unavailable Unavailable Jimmie Webb MD Unavailable Unavailable Jimmie Webb MD Unavailable Unavailable Jimmie Webb MD Unavailable Unavailable Jimmie Webb MD Unavailable Unavailable Jimmie Webb MD Unavailable Unavailable Jimmie Webb MD Unavailable Unavailable Jimmie Webb MD Unavailable Unavailable Jimmie Webb MD Unavailable Unavailable Jimmie Webb MD Unavailable Unavailable Jimmie Webb MD Unavailable Unavailable Jimmie Webb MD Unavailable Unavailable Jimmie Webb MD Unavailable Unavailable VALERIE, L CESILIA PA Unavailable Unavailable VALERIE, L CESILIA PA Unavailable Unavailable VALERIE, L CESILIA PA Unavailable Unavailable VALERIE, L CESILIA PA Unavailable Unavailable VALERIE, L CESILIA PA Unavailable Unavailable VALERIE, L CESILIA PA Unavailable Unavailable VALERIE, L CESILIA PA Unavailable Unavailable VALERIE, L CESILIA PA Unavailable Unavailable VALERIE, L CESILIA PA Unavailable Unavailable VALERIE, L CESILIA PA Unavailable Unavailable VALERIE, L CESILIA PA Unavailable Unavailable VALERIE, L CESILIA PA Unavailable Unavailable VALERIE, L CESILIA PA Unavailable Unavailable VALERIE, L CESILIA PA Unavailable Unavailable VALERIE, L CESILIA PA Unavailable Unavailable VALERIE, L CESILIA PA Unavailable Unavailable Boykin, L Martha PA Unavailable Unavailable Boykin, L Martha PA Unavailable Unavailable Boykin, L Martha PA Unavailable Unavailable Boykin, L Martha PA Unavailable Unavailable Boykin, L Martha PA Unavailable Unavailable Boykin, L Martha PA Unavailable Unavailable Boykin, L Martha PA Unavailable Unavailable Boykin, L Martha PA Unavailable Unavailable Boykin, L Martha PA Unavailable Unavailable Boykin, L Martha PA Unavailable Unavailable Boykin, L Martha PA Unavailable Unavailable Boykin, L Martha PA Unavailable Unavailable Boykin, L Martha PA Unavailable Unavailable Boykin, L Martha PA Unavailable Unavailable Boykin, L Martha PA Unavailable Unavailable Boykin, L Martha PA Unavailable Unavailable Boykin, L Martha PA Unavailable Unavailable Boykin, L Martha PA Unavailable Unavailable Boykin, L Martha PA Unavailable Unavailable Boykin, L Martha PA Unavailable Unavailable Boykin, L Martha PA Unavailable Unavailable Boykin, L Martha PA Unavailable Unavailable Boykin, L Martha PA Unavailable Unavailable Boykin, L Martha PA Unavailable Unavailable Boykin, L Martha PA Unavailable Unavailable Boykin, L Martha PA Unavailable Unavailable Boykin, L Martha PA Unavailable Unavailable Boykin, L Martha PA Unavailable Unavailable Boykin, L Martha PA Unavailable Unavailable Boykin, L Martha PA Unavailable Unavailable Boykin, L Martha PA Unavailable Unavailable Boykin, L Martha PA Unavailable Unavailable Boykin, L Martha PA Unavailable Unavailable Boykin, L Martha PA Unavailable Unavailable Boykin, L Martha PA Unavailable Unavailable Boykin, L Martha PA Unavailable Unavailable Boykin, L Martha PA Unavailable Unavailable Boykin, Simone Thomas PA Unavailable Unavailable Boykin, Simone Thomas PA Unavailable Unavailable Fons, M Lauren SECTIONIZER Unavailable Unavailable Fons, M Lauren SECTIONIZER Unavailable Unavailable Fons, M Lauren SECTIONIZER Unavailable Unavailable Fons, M Lauren SECTIONIZER Unavailable Unavailable Fons, M Lauren SECTIONIZER Unavailable Unavailable Fons, M Lauren SECTIONIZER Unavailable Unavailable Fons, M Lauren SECTIONIZER Unavailable Unavailable Fons, M Lauren SECTIONIZER Unavailable Unavailable Fons, M Lauren SECTIONIZER Unavailable Unavailable Fons, M Lauren SECTIONIZER Unavailable Unavailable Fons, M Lauren SECTIONIZER Unavailable Unavailable Fons, M Lauren SECTIONIZER Unavailable Unavailable Fons, M Lauren SECTIONIZER Unavailable Unavailable Fons, M Lauren SECTIONIZER Unavailable Unavailable Fons, M Lauren SECTIONIZER Unavailable Unavailable Fons, M Lauren SECTIONIZER Unavailable Unavailable Fons, M Lauren SECTIONIZER Unavailable Unavailable Fons, M Lauren SECTIONIZER Unavailable Unavailable Fons, M Lauren SECTIONIZER Unavailable Unavailable Fons, M Lauren SECTIONIZER Unavailable Unavailable Fons, M Lauren SECTIONIZER Unavailable Unavailable Fons, M Lauren SECTIONIZER Unavailable Unavailable Fons, M Lauren SECTIONIZER Unavailable Unavailable Fons, M Lauren SECTIONIZER Unavailable Unavailable Fons, M Lauren SECTIONIZER Unavailable Unavailable Fons, M Lauren SECTIONIZER Unavailable Unavailable Fons, M Lauren SECTIONIZER Unavailable Unavailable Fons, M Lauren SECTIONIZER Unavailable Unavailable Fons, M Lauren SECTIONIZER Unavailable Unavailable Fons, M Lauren SECTIONIZER Unavailable Unavailable Fons, M Lauren SECTIONIZER Unavailable Unavailable Fons, M Lauren SECTIONIZER Unavailable Unavailable Fons, M Lauren SECTIONIZER Unavailable Unavailable Fons, M Lauren SECTIONIZER Unavailable Unavailable Fons, M Lauren SECTIONIZER Unavailable Unavailable Fons, M Lauren SECTIONIZER Unavailable Unavailable Fons, M Lauren SECTIONIZER Unavailable Unavailable Fons, M Lauren SECTIONIZER Unavailable Unavailable Fons, M Lauren SECTIONIZER Unavailable Unavailable Fons, M Lauren SECTIONIZER Unavailable Unavailable Fons, M Lauren SECTIONIZER Unavailable Unavailable Fons, M Lauren SECTIONIZER Unavailable Unavailable Fons, M Lauren SECTIONIZER Unavailable Unavailable Fons, M Lauren SECTIONIZER Unavailable Unavailable Fons, M Lauren SECTIONIZER Unavailable Unavailable Fons, M Lauren SECTIONIZER Unavailable Unavailable Fons, M Lauren SECTIONIZER Unavailable Unavailable Fons, M Lauren SECTIONIZER Unavailable Unavailable Fons, M Lauren SECTIONIZER Unavailable Unavailable Fons, M Lauren SECTIONIZER Unavailable Unavailable Fons, M Lauren SECTIONIZER Unavailable Unavailable Fons, M Lauren SECTIONIZER Unavailable Unavailable Fons, M Lauren SECTIONIZER Unavailable Unavailable Sheila, V ROSAMARIA PA-C Unavailable Unavailable Assumption, V ROSAMARIA PA-C Unavailable Unavailable Assumption, V ROSAMARIA PA-C Unavailable Unavailable Sheila, V ROSAMARIA PA-C Unavailable Unavailable Assumption, V ROSAMARIA PA-C Unavailable Unavailable Assumption, V ROSAMARIA PA-C Unavailable Unavailable Sheila, V ROSAMARIA PA-C Unavailable Unavailable Assumption, V ROSAMARIA PA-C Unavailable Unavailable Assumption, V ROSAMARIA PA-C Unavailable Unavailable Assumption, V ROSAMARIA PA-C Unavailable Unavailable Sheila, V ROSAMARIA PA-C Unavailable Unavailable Sheila, V ROSAMARIA PA-C Unavailable Unavailable Sheila, V ROSAMARIA PA-C Unavailable Unavailable Sheila, V ROSAMARIA PA-C Unavailable Unavailable ANDREW, A DMITRY DO Unavailable Unavailable ANDREW, A DMITRY DO Unavailable Unavailable ANDREW, A DMITRY DO Unavailable Unavailable ANDREW, A DMITRY DO Unavailable Unavailable ANDREW, A DMITRY DO Unavailable Unavailable ANDREW, A DMITRY DO Unavailable Unavailable ANDREW, A DMITRY DO Unavailable Unavailable ANDREW, A DMITRY DO Unavailable Unavailable ANDREW, A DMITRY DO Unavailable Unavailable ANDREW, A DMITRY DO Unavailable Unavailable ANDREW, A DMITRY DO Unavailable Unavailable ANDREW, A DMITRY DO Unavailable Unavailable ANDREW, A DMITRY DO Unavailable Unavailable ANDREW, A DMITRY DO Unavailable Unavailable ANDREW, A DMITRY DO Unavailable Unavailable ANDREW, A DMITRY DO Unavailable Unavailable ANDREW, A DMITRY DO Unavailable Unavailable ANDREW, A DMITRY DO Unavailable Unavailable ANDREW, A DMITRY DO Unavailable Unavailable ANDREW, A DMITRY DO Unavailable Unavailable ANDREW, A DMITRY DO Unavailable Unavailable ANDREW, A DMITRY DO Unavailable Unavailable Re-disclosure Warning The records that you are about to access may contain information from federally-assisted alcohol or drug abuse programs. If such information is present, then the following federally mandated warning applies: This information has been disclosed to you from records protected by federal confidentiality rules (42 CFR part 2). The federal rules prohibit you from making any further disclosure of this information unless further disclosure is expressly permitted by the written consent of the person to whom it pertains or as otherwise permitted by 42 CFR part 2. A general authorization for the release of medical or other information is NOT sufficient for this purpose. The Federal rules restrict any use of the information to criminally investigate or prosecute any alcohol or drug abuse patient.The records that you are about to access may contain highly sensitive health information, the redisclosure of which is protected by Article 27-F of the [facility] Public Health law. If you continue you may have access to information: Regarding HIV / AIDS; Provided by facilities licensed or operated by the [facility] Office of Mental Health; or Provided by the [facility] Office for People With Developmental Disabilities. If such information is present, then the following [facility] mandated warning applies: This information has been disclosed to you from confidential records which are protected by state law. State law prohibits you from making any further disclosure of this information without the specific written consent of the person to whom it pertains, or as otherwise permitted by law. Any unauthorized further disclosure in violation of state law may result in a fine or nursing home sentence or both. A general authorization for the release of medical or other information is NOT sufficient authorization for further disc losure. Family History Family Member Name Family Member Gender Family Member Status Date o f Status Description Data Source(s) Unknown Unknown Problem [facility] ([facility], ) Encounters Encounter Providers Location Date Indications Data Source(s ) Outpatient Attender: Lauren BARTH 02/03/2021 12:00:00 AM EDT [facility] Unknown [address] [id number] 01/27/2021 12:00:00 AM EDT eCW1 ([facility]) Outpatient [address] [id number] 01/27/2021 12:00:00 AM EDT eCW1 ([facility]) Unknown [address] [address] [id number] 01/20/2021 12:00:00 AM EDT eCW1 ([facility]) Outpatient [id number] 01/19/2021 12:46:39 PM EDT [facility] Outpatient Attender: Lauren BILLSBRIGID 01/19/2021 12:00:00 AM EDT [facility] Outpatient Referrer: Micheal Arguello MD 01/12/2021 08:22:1 4 AM EDT [facility] Outpatient Attender: Micheal Arguello MD [facility] 01/06/2021 04:00:00 PM EDT [facility] ([facility]) [place] [address] [address] 01/03/2021 12:00:00 AM EDT eCW1 ([facility]) [place] [address] [address] 01/03/2021 12:00:00 AM EDT eCW1 ([facility]) [place] [address] [address] 01/03/2021 12:00:00 AM EDT eCW1 ([facility]) [place] [address] [address] 12/20/2020 12:00:00 AM EDT eCW1 ([facility]) Outpatient Attender: ROSAMARIA ÁLVAREZP.BRIGID-SJP.BRIGID 12:00:00 AM EDT - 12/16/2020 10:48:46 AM EDT [facility] [place] [address] [address] 12/15/2020 12:00:00 AM EDT eCW1 ([facility]) [place] [address] [address] 12/13/2020 12:00:00 AM EDT eCW1 ([facility]) Outpatient Attender: Jimmie Vargas/Tracey/Serge/Yeimi nichols 12/06/2020 10:40:00 AM EDT [facility] ([facility]) [place] [address] [address] 11/25/2020 12:00:00 AM EDT eCW1 ([facility]) Outpatient Referrer: Martha JOHNSTON.BRIGID-SJP.BRIGID 07/2020 07:56:48 AM EDT [facility] Outpatient SJP.BRIGID-SJP 11/20/2020 06:57:15 PM EDT [facility] Outpatient Attender: ROSAMARIA JOHNSTON.BRIGID-SJP.BRIGID 12:00:00 AM EDT - 11/11/2020 02:31:36 PM EDT [facility] Outpatient SJP.BRIGID-SJP.BRIGID 11/11/2020 12:00:00 AM EDT [facility] Outpatient Attender: TJ ALBA NP Physical Therapy 01:15:00 PM [facility]T [facility] ) Outpatient<td ID="encounterTypeDescripti onID0">TRIAGE NON URGENT</td><td>Dmitry Torres DO</td><td>Reilly Burks MD [facility]</td><td>11/09/2020</td><td>9:15AM</td><td>11:09AM</td><td><content ID="encounterDiagnosisID0-0">Hypotony of Eye</content>, <content ID="encounterDiagnosisID0-1">Conjunctival Concretions</content>, <content ID="encounterDiagnosisID0-2">Blepharitis Squamous</content>, <content ID="encounterDiagnosisID0-3">Dry Eye Syndrome Right Eye</content>, <content ID="encounterDiagnosisID0-4">Phthisis Bulbi Left Eye</content>, <content ID="encounterDiagnosisID0-5">Corneal Opacity</content></td> Attender: DMITRY [facility] 11/09/2020 09:15:00 AM EDT - 11/09/2020 11:09:00 AM EDT Phthisis Bulbi Left EyePhthisis Bulbi Le ft EyePhthisis Bulbi Left EyePhthisis Bulbi Left EyeCorneal OpacityCorneal OpacityCorneal OpacityCorneal OpacityDry Eye Syndrome Right EyeDry Eye Syndrome Right EyeDry Eye Syndrome Right EyeDry Eye Syndrome Right EyeConjunctival ConcretionsHypotony of EyeConjunctival ConcretionsHypotony of EyeConjunctival ConcretionsHypotony of EyeConjunctival ConcretionsHypotony of EyeBlepharitis SquamousBlepharitis SquamousBlepharitis SquamousBlepharitis Squamous RODDY (Reilly Hebert MD [facility]) 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 Corneal Opacity Corneal Opacity Corneal Opacity Corneal Opacity Dry Eye Syndrome Right Eye Dry Eye Syndrome Right Eye Dry Eye Syndrome Right Eye Dry Eye Syndrome Right Eye Conjunctival Concretions Hypotony of Eye Conjunctival Concretions Hypotony of Eye Conjunctival Concretions Hypotony of Eye Conjunctival Concretions Hypotony of Eye Blepharitis Squamous Blepharitis Squamous Blepharitis Squamous Blepharitis Squamous Outpatient Attender: Jimmie Vargas/Tracey/Serge/Yeimi nichols 11/08/2020 01:40:00 PM EDT [facility] ([facility]) Outpatient Attender: Norris STEWART Physical Therapy 10:15:00 AM EDT [facility] ([facility]) Outpatient [address] [place] [address] 10/22/2020 12:00:00 AM EDT eCW1 ([facility]) Unknown [address] [facility] [place] [address] 10/21/2020 12:00:00 AM EDT eCW1 ([facility]) Outpatient Attender: CESILIA STEWART Main Office 10/18/2020 0 9:30:00 AM EDT [facility] ([facility]) Outpatient Referrer: ROSAMARIA CHOE-SJP.BRIGID 12:00:00 AM EDT [facility] Outpatient Attender: ROSAMARIA CHOE-SJP.BRIGID 02:30:47 PM EDT - 10/14/2020 03:33:57 PM EDT [facility] Outpatient Attender: ROSAMARIA ARAGONBRIGID-SJP.BRIGID 02:56:51 PM EDT - 10/11/2020 03:49:36 PM EDT [facility] Outpatient CT-SJP.SYR 10/11/2020 01:45:33 PM EDT [facility] Outpatient Attender: Reilly Cueva/Tracey/Serge/Azael ndl 10/07/2020 09:00:00 AM EDT [facility] ([facility]) Outpatient Attender: Jimmie Vargas/Tracey/Serge/Reind simone 10/05/2020 01:00:00 PM EDT [facility] [place] [address] [place] [address] 10/04/2020 12:00:00 AM EDT eCW1 ([facility]) Outpatient Attender: Martha ARAGONBRIGID-SJP.BRIGID 01/2021 12:00:00 AM EDT - 10/08/2020 10:43:05 AM EDT [facility] [place] [address] [place] [address] 09/16/2020 12:00:00 AM EDT eCW1 ([facility]) <td ID="encounterTypeDescriptionID1">2 M onth Follow up</td><td>Dmitry Torres DO</td><td>Reilly Burks MD [facility]</td><td>09/14/2020</td><td>7:16AM</td><td>8:10AM</td><td><content ID="encounterDiagnosisID1-0">Hypotony of Eye</content>, <content ID="encounterDiagnosisID1-1">Conjunctival Concretions</content>, <content ID="encounterDiagnosisID1-2">Blepharitis Squamous</content>, <content ID="encounterDiagnosisID1-3">Dry Eye Syndrome Right Eye</content>, <content ID="encounterDiagnosisID1-4">Phthisis Bulbi Left Eye</content>, <content ID="encounterDiagnosisID1-5">Corneal Opacity</content></td>Outpatient Attender: DMITRY Santacruz MD [facility] 09/14/2020 07:16:00 AM EDT - 09/14/2020 08:10:00 AM EDT Phthisis Bulbi Left EyePhthisis Bulbi Le ft EyePhthisis Bulbi Left EyePhthisis Bulbi Left EyePhthisis Bulbi Left EyeCorneal OpacityCorneal OpacityCorneal OpacityCorneal OpacityCorneal OpacityDry Eye S yndrome Right EyeDry Eye Syndrome Right EyeDry Eye Syndrome Right EyeDry Eye Syndrome Right EyeDry Eye Syndrome Right EyeConjunctival ConcretionsHypotony of EyeConjunctival ConcretionsHypotony of EyeConjunctival ConcretionsHypotony of EyeConjunctival ConcretionsHypotony of EyeConjunctival ConcretionsHypotony of EyeBlepharitis SquamousBlepharitis SquamousBlepharitis SquamousBlepharitis SquamousBlepharitis Squamous RODDY (Reilly Hebert MD [facility]) 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 Corneal Opacity Corneal Opacity Corneal Opacity Corneal Opacity Corneal Opacity Dry Eye Syndrome Right Eye Dry Eye Syndrome Right Eye Dry Eye Syndrome Right Eye Dry Eye Syndrome Right Eye Dry Eye Syndrome Right Eye Conjunctival Concretions Hypotony of Eye Conjunctival Concretions Hypotony of Eye Conjunctival Concretions Hypotony of Eye Conjunctival Concretions Hypotony of Eye Conjunctival Concretions Hypotony of Eye Blepharitis Squamous Blepharitis Squamous Blepharitis Squamous Blepharitis Squamous Blepharitis Squamous Outpatient Attender: Jimmie Vargas/Tracey/Serge/Yeimi nichols 09/09/2020 03:10:00 PM EDT [facility] ([facility], ) Outpatient<td ID="encounterTypeDescripti onID2">TRIAGE NON URGENT</td><td>Reilly Burks MD, FACS</td><td>[facility] MD PLL</td><td>09/02/2020</td><td>7:16AM</td><td>7:58AM</td><td><content ID="encounterDiagnosisID2-0">Lacrimal Stenosis Nasolacrimal Duct Acquired</content>, <content ID="encounterDiagnosisID2-1">Conjunctivitis Acute Bacterial</content></td> Attender: Reilly Hebert MD, FACS [facility] 09/02/2020 07:16:00 AM EDT - 09/02/2020 07:58:00 AM ED T Conjunctivitis Acute BacterialLacrimal Stenosis Nasolacrimal Duct AcquiredConjunctivitis Acute BacterialLacrimal Stenosis Nasolacrimal Duct AcquiredConjunctivitis Acute BacterialLacrimal Stenosis Nasolacrimal Duct AcquiredConjunctivitis Acute BacterialLacrimal Stenosis Nasolacrimal Duct AcquiredConjunctivitis Acute BacterialLacrimal Stenosis Nasolacrimal Duct Acquired RODDY (Reilly Hebert MD [facility]) Conjunctivitis Acute Bacterial Lacrimal Stenosis Nasolacrimal Duct Acqu ired Conjunctivitis Acute Bacterial Lacrimal Stenosis Nasolacrimal Duct Acqu ired Conjunctivitis Acute Bacterial Lacrimal Stenosis Nasolacrimal Duct Acqu ired Conjunctivitis Acute Bacterial Lacrimal Stenosis Nasolacrimal Duct Acqu ired Conjunctivitis Acute Bacterial Lacrimal Stenosis Nasolacrimal Duct Acqu ired Office Visit Attender: Jimmie Vargas/Tracey/Serge/Reind l 08/31/2020 09:00:00 AM EDT [facility] ([facility] ) [place] [address] [place] [address] 08/24/2020 12:00:00 AM EDT eCW1 ([facility]) Outpatient Attender: Jimmie Vargas/Tracey/Serge/Ritad simone 08/19/2020 08:20:00 AM EDT [facility] ([facility] ) [place] [address] [place] [address] 08/19/2020 12:00:00 AM EDT eCW1 ([facility]) [place] [address] [place] [address] 08/18/2020 12:00:00 AM EDT eCW1 ([facility]) Outpatient Attender: ROSAMARIA JOHNSTON.BRIGID-SJPJose LuisBRIGID 12:00:00 AM EDT - 08/17/2020 09:06:19 AM EDT [facility] Unknown [address] [place] [address] 08/04/2020 12:00:00 AM EDT eCW1 ([facility]) Outpatient Attender: TJ ALBA NP Physical Therapy 02:15:00 PM EDT [facility] ([facility]) Outpatient Attender: Jimmie Vargas/Tracey/Serge/Yeimi nichols 07/19/2020 08:00:00 AM EDT [facility] ([facility]) <td ID="encounterTypeDescriptionID3">LAC RIMAL IRRIGATION & PROBING IN OFFICE [employer] 10 day</td><td>Dmitry Torres DO</td><td>Reilly Burks MD [facility]</td><td>07/16/2020</td><td>7:25AM</td><td>8:13AM</td><td><content ID="encounterDiagnosisID3-0">Conjunctival Concretions</content>, <content ID="encounterDiagnosisID3-1">Hypotony of Eye</content>, <content ID="encounterDiagnosisID3-2">Blepharitis Squamous</content>, <content ID="encounterDiagnosisID3-3">Dry Eye Syndrome Right Eye</content>, <content ID="encounterDiagnosisID3-4">Phthisis Bulbi Left Eye</content>, <content ID="encounterDiagnosisID3-5">Corneal Opacity</content>, <content ID="encounterDiagnosisID3-6">Lacrimal Stenosis Nasolacrimal Duct Acquired</content></td>Outpatient Attender: DMITRY Solitario MD [facility] 07/16/2020 07:25:00 AM EDT - 07/16/2020 08:13:00 AM ED T Lacrimal Stenosis Nasolacrimal Duct AcquiredPhthisis Bulbi Left EyeLacrimal Stenosis Nasolacrimal Duct AcquiredPhthisis Bulbi Left EyeLacrimal Stenosis Nasolacrimal Duct AcquiredPhthisis Bulbi Left EyeLacrimal Stenosis Nasolacrimal Duct Acquired Phthisis Bulbi Left EyeLacrimal Stenosis Nasolacrimal Duct AcquiredPhthisis Bulbi Left EyeLacrimal Stenosis Nasolacrimal Duct AcquiredPhthisis Bulbi Left EyeCorneal OpacityCorneal OpacityCorneal OpacityCorneal OpacityCorneal Opacity Corneal OpacityDry Eye Syndrome Right EyeDry Eye Syndrome Right EyeDry Eye Syndrome Right EyeDry Eye Syndrome Right EyeDry Eye Syndrome Right EyeDry Eye Syndrome Right EyeHypotony of EyeConjunctival ConcretionsHypotony of Eye Conjunctival ConcretionsHypotony of EyeConjunctival ConcretionsHypotony of EyeConjunctival ConcretionsHypotony of EyeConjunctival ConcretionsHypotony of EyeConjunctival ConcretionsBlepharitis SquamousBlepharitis SquamousBlepharitis SquamousBlepharitis SquamousBlepharitis SquamousBlepharitis Squamous RODDY (Reilly Hebert MD [facility]) Lacrimal Stenosis Nasolacrimal Duct Acqu ired Phthisis Bulbi Left Eye Lacrimal Stenosis Nasolacrimal Duct Acqu ired Phthisis Bulbi Left Eye Lacrimal Stenosis Nasolacrimal Duct Acqu ired Phthisis Bulbi Left Eye Lacrimal Stenosis Nasolacrimal Duct Acqu ired Phthisis Bulbi Left Eye Lacrimal Stenosis Nasolacrimal Duct Acqu ired Phthisis Bulbi Left Eye Lacrimal Stenosis Nasolacrimal Duct Acqu ired Phthisis Bulbi Left Eye Corneal Opacity Corneal Opacity Corneal Opacity Corneal Opacity Corneal Opacity Corneal Opacity Dry Eye Syndrome Right Eye Dry Eye Syndrome Right Eye Dry Eye Syndrome Right Eye Dry Eye Syndrome Right Eye Dry Eye Syndrome Right Eye Dry Eye Syndrome Right Eye Hypotony of Eye Conjunctival Concretions Hypotony of Eye Conjunctival Concretions Hypotony of Eye Conjunctival Concretions Hypotony of Eye Conjunctival Concretions Hypotony of Eye Conjunctival Concretions Hypotony of Eye Conjunctival Concretions Blepharitis Squamous Blepharitis Squamous Blepharitis Squamous Blepharitis Squamous Blepharitis Squamous Blepharitis Squamous OFFICE OUTPATIENT VISIT 15 MINUTES Attender: Terry satnoro MD Physical Therapy 07/12/2020 01:30:00 PM EDT [facility] ([facility]) Outpatient Attender: Annia Vargas/Tracey/Hemanth zarate/Latricia 07/09/2020 11:15:00 AM EDT MED[facility] ([facility], ) Unknown [address], [facility] [address] 06/29/2020 12:00:00 AM EST eCW1 ([facility]) Unknown [address] [facility] [place] [address] 06/29/2020 12:00:00 AM EST eCW1 ([facility]) Unknown [address], [facility] [address] 06/28/2020 12:00:00 AM EST eCW1 ([facility]) Office Visit, Est Pt., Level 4 [address] [place] [address] 06/28/2020 12:00:00 AM EST eCW1 ([facility]) Outpatient<td ID="encounterTypeDescripti onID4">1 Month Follow-Up</td><td>Dmitry Torres DO</td><td>Reilly Burks MD [facility]</td><td>06/15/2020</td><td>7:16AM</td><td>8:00AM</td><td><content ID="encounterDiagnosisID4-0">Hypotony of Eye</content>, <content ID="encounterDiagnosisID4-1">Conjunctival Concretions</content>, <content ID="encounterDiagnosisID4-2">Blepharitis Squamous</content>, <content ID="encounterDiagnosisID4-3">Dry Eye Syndrome Right Eye</content>, <content ID="encounterDiagnosisID4-4">Phthisis Bulbi Left Eye</content>, <content ID="encounterDiagnosisID4-5">Corneal Opacity</content>, <content ID="encounterDiagnosisID4-6">Epiphora Due To Excess Lacrimation</content></td> Attender: DMITRY Santacruz MD [facility] 06/15/2020 07:16:00 AM EST - 06/15/2020 08:00:00 AM EST Epiphora Due To Excess LacrimationPhthis is Bulbi Left EyeEpiphora Due To Excess LacrimationPhthisis Bulbi Left EyeEpiphora Due To Excess LacrimationPhthisis Bulbi Left EyeEpiphora Due To Excess Lacri mationPhthisis Bulbi Left EyeEpiphora Due To Excess LacrimationPhthisis Bulbi Left EyeEpiphora Due To Excess LacrimationPhthisis Bulbi Left EyeEpiphora Due To Excess LacrimationPhthisis Bulbi Left EyeCorneal OpacityCorneal OpacityCorneal OpacityCorneal OpacityCorneal OpacityCorneal OpacityCorneal OpacityDry Eye Syndrome Right EyeDry Eye Syndrome Right EyeDry Eye Syndrome Right EyeDry Eye Syndrome Right EyeDry Eye Syndrome Right EyeDry Eye Syndrome Right EyeDry Eye Syndrome Right EyeConjunctival ConcretionsHypotony of EyeConjunctival ConcretionsHypotony of EyeConjunctival ConcretionsHypotony of EyeConjunctival ConcretionsHypotony of EyeConjunctival ConcretionsHypotony of EyeConjunctival ConcretionsHypotony of EyeConjunctival ConcretionsHypotony of EyeBlepharitis SquamousBlepharitis SquamousBlepharitis SquamousBlepharitis SquamousBlepharitis SquamousBlepharitis SquamousBlepharitis Squamous RODDY (Reilly Hebert MD [facility]) Epiphora Due To Excess Lacrimation Phthisis Bulbi Left Eye Epiphora Due To Excess Lacrimation Phthisis Bulbi Left Eye Epiphora Due To Excess Lacrimation Phthisis Bulbi Left Eye Epiphora Due To Excess Lacrimation Phthisis Bulbi Left Eye Epiphora Due To Excess Lacrimation Phthisis Bulbi Left Eye Epiphora Due To Excess Lacrimation Phthisis Bulbi Left Eye Epiphora Due To Excess Lacrimation Phthisis Bulbi Left Eye Corneal Opacity Corneal Opacity Corneal Opacity Corneal Opacity Corneal Opacity Corneal Opacity Corneal Opacity Dry Eye Syndrome Right Eye Dry Eye Syndrome Right Eye Dry Eye Syndrome Right Eye Dry Eye Syndrome Right Eye Dry Eye Syndrome Right Eye Dry Eye Syndrome Right Eye Dry Eye Syndrome Right Eye Conjunctival Concretions Hypotony of Eye Conjunctival Concretions Hypotony of Eye Conjunctival Concretions Hypotony of Eye Conjunctival Concretions Hypotony of Eye Conjunctival Concretions Hypotony of Eye Conjunctival Concretions Hypotony of Eye Conjunctival Concretions Hypotony of Eye Blepharitis Squamous Blepharitis Squamous Blepharitis Squamous Blepharitis Squamous Blepharitis Squamous Blepharitis Squamous Blepharitis Squamous [place] [address] [place] [address] 06/11/2020 12:00:00 AM EST eCW1 ([facility]) [place] [address] [place] [address] 06/07/2020 12:00:00 AM EST eCW1 ([facility]) [place] [address] [address] 05/24/2020 12:00:00 AM EST eCW1 ([facility]) Outpatient<td ID="encounterTypeDescripti onID5">2 Week Follow-Up</td><td>Dmitry Torres DO</td><td>Reilly Burks MD [facility]</td><td>05/13/2020</td><td>7:16AM</td><td>8:11AM</td><td><content ID="encounterDiagnosisID5-0">Hypotony of Eye</content>, <content ID="encounterDiagnosisID5-1">Corneal Degeneration Recurrent Erosion</content>, <content ID="encounterDiagnosisID5-2">Conjunctival Concretions</content>, <content ID="encounterDiagnosisID5-3">Blepharitis Squamous</content>, <content ID="encounterDiagnosisID5-4">Dry Eye Syndrome Right Eye</content>, <content ID="encounterDiagnosisID5-5">Phthisis Bulbi Left Eye</content>, <content ID="encounterDiagnosisID5-6">Corneal Opacity</content></td> Attender: DMITRY Santacruz MD [facility] 05/13/2020 07:16:00 AM EST - 05/13/2020 08:11:00 AM EST Phthisis Bulbi Left EyeCorneal Degenerat ion Recurrent ErosionPhthisis Bulbi Left EyeCorneal Degeneration Recurrent ErosionPhthisis Bulbi Left EyeCorneal Degeneration Recurrent ErosionPhthisis Bulbi Left EyeCorneal Degeneration Recurrent ErosionPhthisis Bulbi Left EyeCorneal Degeneration Recurrent ErosionPhthisis Bulbi Left EyeCorneal Degeneration Recurrent ErosionPhthisis Bulbi Left EyeCorneal Degeneration Recurrent ErosionCorneal OpacityCorneal OpacityCorneal OpacityCorneal OpacityCorneal OpacityCorneal OpacityCorneal OpacityDry Eye Syndrome Right EyeDry Eye Syndrome Right EyeDry Eye Syndrome Right EyeDry Eye Syndrome Right EyeDry Eye Syndrome Right EyeDry Eye Syndrome Right EyeDry Eye Syndrome Right EyeConjunctival ConcretionsHypotony of EyeConjunctival ConcretionsHypotony of EyeConjunctival ConcretionsHypotony of EyeConjunctival ConcretionsHypotony of EyeConjunctival ConcretionsHypotony of EyeConjunctival ConcretionsHypotony of EyeConjunctival ConcretionsHypotony of EyeBlepharitis SquamousBlepharitis SquamousBlepharitis SquamousBlepharitis SquamousBlepharitis SquamousBlepharitis SquamousBlepharitis Squamous RODDY (Reilly Hebert MD [facility]) 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 Bulbi Left Eye Corneal Degeneration Recurrent Erosion Corneal Opacity Corneal Opacity Corneal Opacity Corneal Opacity Corneal Opacity Corneal Opacity Corneal Opacity Dry Eye Syndrome Right Eye Dry Eye Syndrome Right Eye Dry Eye Syndrome Right Eye Dry Eye Syndrome Right Eye Dry Eye Syndrome Right Eye Dry Eye Syndrome Right Eye Dry Eye Syndrome Right Eye Conjunctival Concretions Hypotony of Eye Conjunctival Concretions Hypotony of Eye Conjunctival Concretions Hypotony of Eye Conjunctival Concretions Hypotony of Eye Conjunctival Concretions Hypotony of Eye Conjunctival Concretions Hypotony of Eye Conjunctival Concretions Hypotony of Eye Blepharitis Squamous Blepharitis Squamous Blepharitis Squamous Blepharitis Squamous Blepharitis Squamous Blepharitis Squamous Blepharitis Squamous Outpatient Attender: TJ ALBA NP Physical Therapy 02:15:00 PM EST [facility] ([facility]) [place] [address] [address] 05/04/2020 12:00:00 AM EST eCW1 ([facility]) Unknown [address] [address] 04/30/2020 12:00:00 AM EST eCW1 ([facility]) Office Visit, Est Pt., Level [address] [place] [address] 04/30/2020 12:00:00 AM EST eCW1 ([facility]) <td ID="encounterTypeDescriptionID6">1 W [place] Follow-Up</td><td>Dmitry Torres DO</td><td>Reilly Burks MD [facility]</td><td>04/28/2020</td><td>7:30AM</td><td>8:23AM</td><td><content ID="encounterDiagnosisID6-0">Hypotony of Eye</content>, <content ID="encounterDiagnosisID6-1">Corneal Degeneration Recurrent Erosion</content>, <content ID="encounterDiagnosisID6-2">Blepharitis Squamous</content>, <content ID="encounterDiagnosisID6-3">Dry Eye Syndrome Right Eye</content>, <content ID="encounterDiagnosisID6-4">Phthisis Bulbi Left Eye</content>, <content ID="encounterDiagnosisID6-5">Corneal Opacity</content>, <content ID="encounterDiagnosisID6-6">Conjunctival Concretions</content></td>Outpatient Attender: DMITRY Santacruz MD [facility] 04/28/2020 07:30:00 AM EST - 04/28/2020 08:23:00 AM EST Phthisis Bulbi Left EyeCorneal Degenerat ion Recurrent ErosionPhthisis Bulbi Left EyeCorneal Degeneration Recurrent ErosionPhthisis Bulbi Left EyeCorneal Degeneration Recurrent ErosionPhthisis Bulbi Left EyeCorneal Degeneration Recurrent ErosionPhthisis Bulbi Left EyeCorneal Degeneration Recurrent ErosionPhthisis Bulbi Left EyeCorneal Degeneration Recurrent ErosionPhthisis Bulbi Left EyeCorneal Degeneration Recurrent ErosionCorneal OpacityCorneal OpacityCorneal OpacityCorneal Opacity Corneal OpacityCorneal OpacityCorneal OpacityDry Eye Syndrome Right EyeDry Eye Syndrome Right EyeDry Eye Syndrome Right EyeDry Eye Syndrome Right EyeDry Eye Syndrome Right EyeDry Eye Syndrome Right EyeDry Eye Syndrome Right Eye Conjunctival ConcretionsHypotony of EyeConjunctival ConcretionsHypotony of EyeConjunctival ConcretionsHypotony of EyeConjunctival ConcretionsHypotony of EyeConjunctival ConcretionsHypotony of EyeConjunctival ConcretionsHypotony of EyeConjunctival ConcretionsHypotony of EyeBlepharitis SquamousBlepharitis SquamousBlepharitis SquamousBlepharitis SquamousBlepharitis SquamousBlepharitis SquamousBlepharitis Squamous RODDY (Reilly Hebert MD [facility]) 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 Bulbi Left Eye Corneal Degeneration Recurrent Erosion Corneal Opacity Corneal Opacity Corneal Opacity Corneal Opacity Corneal Opacity Corneal Opacity Corneal Opacity Dry Eye Syndrome Right Eye Dry Eye Syndrome Right Eye Dry Eye Syndrome Right Eye Dry Eye Syndrome Right Eye Dry Eye Syndrome Right Eye Dry Eye Syndrome Right Eye Dry Eye Syndrome Right Eye Conjunctival Concretions Hypotony of Eye Conjunctival Concretions Hypotony of Eye Conjunctival Concretions Hypotony of Eye Conjunctival Concretions Hypotony of Eye Conjunctival Concretions Hypotony of Eye Conjunctival Concretions Hypotony of Eye Conjunctival Concretions Hypotony of Eye Blepharitis Squamous Blepharitis Squamous Blepharitis Squamous Blepharitis Squamous Blepharitis Squamous Blepharitis Squamous Blepharitis Squamous Out[place] [address] [address] 04/26/2020 12:00:00 AM EST eCW1 ([facility]) <td ID="encounterTypeDescriptionID7">1 W [place] Follow-Up</td><td>Dmitry Torres DO</td><td>Reilly Burks MD [facility]</td><td>04/20/2020</td><td>7:26AM</td><td>8:52AM</td><td><content ID="encounterDiagnosisID7-0">Hypotony of Eye</content>, <content ID="encounterDiagnosisID7-1">Corneal Degeneration Recurrent Erosion</content>, <content ID="encounterDiagnosisID7-2">Blepharitis Squamous</content>, <content ID="encounterDiagnosisID7-3">Dry Eye Syndrome Right Eye</content>, <content ID="encounterDiagnosisID7-4">Phthisis Bulbi Left Eye</content>, <content ID="encounterDiagnosisID7-5">Corneal Opacity</content></td>Outpatient Attender: DMITRY Santacruz MD [facility] 04/20/2020 07:26:00 AM EST - 04/20/2020 08:52:00 AM EST Phthisis Bulbi Left EyeCorneal Degenerat ion Recurrent ErosionPhthisis Bulbi Left EyeCorneal Degeneration Recurrent ErosionPhthisis Bulbi Left EyeCorneal Degeneration Recurrent ErosionPhthisis Bulbi Left EyeCorneal Degeneration Recurrent ErosionPhthisis Bulbi Left EyeCorneal Degeneration Recurrent ErosionPhthisis Bulbi Left EyeCorneal Degeneration Recurrent ErosionPhthisis Bulbi Left EyeCorneal Degeneration Recurrent ErosionPhthisis Bulbi Left EyeCorneal OpacityCorneal OpacityCorneal OpacityCorneal OpacityCorneal OpacityCorneal OpacityCorneal OpacityCorneal OpacityDry Eye Syndrome Right EyeDry Eye Syndrome Right EyeDry Eye Syndrome Right EyeDry Eye Syndrome Right EyeDry Eye Syndrome Right EyeDry Eye Syndrome Right EyeDry Eye Syndrome Right EyeDry Eye Syndrome Right EyeHypotony of EyeHypotony of EyeHypotony of EyeHypotony of EyeHypotony of EyeHypotony of EyeHypotony of EyeHypotony of EyeBlepharitis SquamousBlepharitis Squamous Blepharitis SquamousBlepharitis SquamousBlepharitis SquamousBlepharitis SquamousBlepharitis SquamousBlepharitis SquamousCorneal Degeneration Recurrent Erosion RODDY (Reilly Hebert MD [facility]) 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 Bulbi Left Eye Corneal Opacity Corneal Opacity Corneal Opacity Corneal Opacity Corneal Opacity Corneal Opacity Corneal Opacity Corneal Opacity Dry Eye Syndrome Right Eye Dry Eye Syndrome Right Eye Dry Eye Syndrome Right Eye Dry Eye Syndrome Right Eye Dry Eye Syndrome Right Eye Dry Eye Syndrome Right Eye Dry Eye Syndrome Right Eye Dry Eye Syndrome Right Eye 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 Blepharitis Squamous Blepharitis Squamous Blepharitis Squamous Blepharitis Squamous Blepharitis Squamous Blepharitis Squamous Blepharitis Squamous Blepharitis Squamous Corneal Degeneration Recurrent Erosion Office Visit, New Pt., Level [address] PC [address] [place] [address] 04/19/2020 12:00:00 AM EST eCW1 ([facility]) Unknown [address] [facility] [phone] 04/19/2020 12:00:00 AM EST eCW1 ([facility]) Unknown [address] [facility] [address] 04/09/2020 12:00:00 AM EST eCW1 ([facility]) Outpatient<td ID="encounterTypeDescripti onID8">1 Week Follow-Up</td><td>Dmitry Torres DO</td><td>Reilly Burks MD [facility]</td><td>04/08/2020</td><td>7:40AM</td><td>8:50AM</td><td><content ID="encounterDiagnosisID8-0">Hypotony of Eye</content>, <content ID="encounterDiagnosisID8-1">Corneal Degeneration Recurrent Erosion</content>, <content ID="encounterDiagnosisID8-2">Blepharitis Squamous</content>, <content ID="encounterDiagnosisID8-3">Dry Eye Syndrome Right Eye</content>, <content ID="encounterDiagnosisID8-4">Phthisis Bulbi Left Eye</content>, <content ID="encounterDiagnosisID8-5">Corneal Opacity</content></td> Attender: DMITRY Santacruz MD [facility] 04/08/2020 07:40:00 AM EST - 04/08/2020 08:50:00 AM EST Corneal OpacityPhthisis Bulbi Left EyeCo rneal Degeneration Recurrent ErosionCorneal OpacityPhthisis Bulbi Left EyeCorneal Degeneration Recurrent ErosionCorneal OpacityPhthisis Bulbi Left EyeCorneal Degeneration Recurrent ErosionCorneal OpacityPhthisis Bulbi Left EyeCorneal Degeneration Recurrent ErosionCorneal OpacityPhthisis Bulbi Left EyeCorneal Degeneration Recurrent ErosionCorneal OpacityPhthisis Bulbi Left EyeCorneal Degeneration Recu rrent ErosionCorneal OpacityPhthisis Bulbi Left EyeCorneal Degeneration Recurrent ErosionCorneal OpacityPhthisis Bulbi Left EyeCorneal OpacityPhthisis Bulbi Left EyeDry Eye Syndrome Right EyeDry Eye Syndrome Right EyeDry Eye Syn drome Right EyeDry Eye Syndrome Right EyeDry Eye Syndrome Right EyeDry Eye Syndrome Right EyeDry Eye Syndrome Right EyeDry Eye Syndrome Right EyeDry Eye Syndrome Right EyeHypotony of EyeHypotony of EyeHypotony of EyeHypotony of EyeHypotony of EyeHypotony of EyeHypotony of EyeHypotony of EyeHypotony of EyeBlepharitis SquamousBlepharitis SquamousBlepharitis SquamousBlepharitis SquamousBlepharitis SquamousBlepharitis SquamousBlepharitis SquamousBlepharitis SquamousBlepharitis SquamousCorneal Degeneration Recurrent ErosionCorneal Degeneration Recurrent Erosion RODDY (Reilly Hebert MD [facility]) Corneal Opacity Phthisis Bulbi Left Eye Corneal Degeneration Recurrent Erosion Corneal Opacity Phthisis Bulbi Left Eye Corneal Degeneration Recurrent Erosion Corneal Opacity Phthisis Bulbi Left Eye Corneal Degeneration Recurrent Erosion Corneal Opacity Phthisis Bulbi Left Eye Corneal Degeneration Recurrent Erosion Corneal Opacity Phthisis Bulbi Left Eye Corneal Degeneration Recurrent Erosion Corneal Opacity Phthisis Bulbi Left Eye Corneal Degeneration Recurrent Erosion Corneal Opacity Phthisis Bulbi Left Eye Corneal Degeneration Recurrent Erosion Corneal Opacity Phthisis Bulbi Left Eye Corneal Opacity Phthisis Bulbi Left Eye Dry Eye Syndrome Right Eye Dry Eye Syndrome Right Eye Dry Eye Syndrome Right Eye Dry Eye Syndrome Right Eye Dry Eye Syndrome Right Eye Dry Eye Syndrome Right Eye Dry Eye Syndrome Right Eye Dry Eye Syndrome Right Eye Dry Eye Syndrome Right Eye 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 Blepharitis Squamous Blepharitis Squamous Blepharitis Squamous Blepharitis Squamous Blepharitis Squamous Blepharitis Squamous Blepharitis Squamous Blepharitis Squamous 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 [place] [address] [place] [address] 04/07/2020 12:00:00 AM EST [facility] ([facility]) Outpatient<td ID="encounterTypeDescripti onID9">1 Week Follow-Up</td><td>Dmitry Torres DO</td><td>Reilly Burks MD [facility]</td><td>04/02/2020</td><td>7:28AM</td><td>8:11AM</td><td><content ID="encounterDiagnosisID9-0">Corneal Degeneration Recurrent Erosion</content>, <content ID="encounterDiagnosisID9-1">Hypotony of Eye</content>, <content ID="encounterDiagnosisID9-2">Blepharitis Squamous</content>, <content ID="encounterDiagnosisID9-3">Dry Eye Syndrome Right Eye</content>, <content ID="encounterDiagnosisID9-4">Phthisis Bulbi Left Eye</content></td> Attender: DMITRY Santacruz MD [facility] 04/02/2020 07:28:00 AM EST - 04/02/2020 08:11:00 AM EST Phthisis Bulbi Left EyeCorneal Degenerat ion Recurrent ErosionPhthisis Bulbi Left EyeCorneal Degeneration Recurrent ErosionPhthisis Bulbi Left EyeCorneal Degeneration Recurrent ErosionPhthisis Bulbi Left EyeCorneal Degeneration Recurrent ErosionPhthisis Bulbi Left EyeCorneal Degeneration Recurrent ErosionPhthisis Bulbi Left EyeCorneal Degeneration Recurrent ErosionPhthisis Bulbi Left EyeCorneal Degeneration Recurrent ErosionPhthisis Bulbi Left EyePhthisis Bulbi Left EyePhthisis Bulbi Left EyeDry Eye Syndrome Right EyeDry Eye Syndrome Right EyeDry Eye Syndrome Right EyeDry Eye Syndrome Right EyeDry Eye Syndrome Right EyeDry Eye Syndrome Right EyeDry Eye Syndrome Right EyeDry Eye Syndrome Right EyeDry Eye Syndrome Right EyeDry Eye Syndrome Right EyeHypotony of EyeHypotony of EyeHypotony of EyeHypotony of EyeHypotony of EyeHypotony of EyeHypotony of EyeHypotony of EyeHypotony of EyeHypotony of EyeBlepharitis SquamousBlepharitis SquamousBlepharitis SquamousBlepharitis SquamousBlepharitis SquamousBlepharitis SquamousBlepharitis SquamousBlepharitis SquamousBlepharitis SquamousBlepharitis SquamousCorneal Degeneration Recurrent ErosionCorneal Degeneration Recurrent ErosionCorneal Degeneration Recurrent Erosion RODDY (Reilly Hebert MD [facility]) 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 Dry Eye Syndrome Right Eye Dry Eye Syndrome Right Eye Dry Eye Syndrome Right Eye Dry Eye Syndrome Right Eye Dry Eye Syndrome Right Eye Dry Eye Syndrome Right Eye Dry Eye Syndrome Right Eye Dry Eye Syndrome Right Eye Dry Eye Syndrome Right Eye Dry Eye Syndrome Right Eye 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 Blepharitis Squamous Blepharitis Squamous Blepharitis Squamous Blepharitis Squamous Blepharitis Squamous Blepharitis Squamous Blepharitis Squamous Blepharitis Squamous Blepharitis Squamous 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 Corneal Degeneration Recurrent Erosion OFFICE OUTPATIENT VISIT 15 MINUTES Attender: Terry santoro MD Physical Therapy 03/25/2020 09:30:00 AM EST MEDENT ([facility] ) Outpatient<td ID="encounterTypeDescripti onID10">Rx Refills/Changes</td><td>Dmitry Torres DO</td><td></td><td>03/29/2020</td><td>03/23/2020 4:21PM</td><td>03/23/2020 11:59PM</td><td></td> Attender: DMITRY TORRES DO 020 04:21:00 PM EST - 03/23/2020 11:59:00 PM EST [place] (Reilly Hebert MD [facility]) Outpatient<td ID="encounterTypeDescripti onID11">1 Week Follow-Up</td><td>Dmitry Torres DO</td><td>Reilly Burks MD [facility]</td><td>03/23/2020</td><td>7:27AM</td><td>8:22AM</td><td><content ID="[id number]">Hypotony of Eye</content>, <content ID="[id number]">Corneal Degeneration Recurrent Erosion</content>, <content ID="[id number]">Blepharitis Squamous</content>, <content ID="[id number]">Dry Eye Syndrome Right Eye</content>, <content ID="[id number]">Phthisis Bulbi Left Eye</content></td> Attender: DMITRY Santacruz MD [facility] 03/23/2020 07:27:00 AM EST - 03/23/2020 08:22:00 AM EST Phthisis Bulbi Left EyeCorneal Degenerat ion Recurrent ErosionPhthisis Bulbi Left EyeCorneal Degeneration Recurrent ErosionPhthisis Bulbi Left EyeCorneal Degeneration Recurrent ErosionPhthisis Bulbi Left EyeCorneal Degeneration Recurrent ErosionPhthisis Bulbi Left EyeCorneal Degeneration Recurrent ErosionPhthisis Bulbi Left EyeCorneal Degeneration Recurrent ErosionPhthisis Bulbi Left EyeCorneal Degeneration Recurrent ErosionPhthisis Bulbi Left EyePhthisis Bulbi Left EyePhthisis Bulbi Left EyePhthisis Bulbi Left EyeDry Eye Syndrome Right EyeDry Eye Syndrome Right EyeDry Eye Syndrome Right EyeDry Eye Syndrome Right EyeDry Eye Syndrome Right EyeDry Eye Syndrome Right EyeDry Eye Syndrome Right EyeDry Eye Syndrome Right EyeDry Eye Syndrome Right EyeDry Eye Syndrome Right EyeDry Eye Syndrome Right EyeHypotony of EyeHypotony of EyeHypotony of EyeHypotony of EyeHypotony of EyeHypotony of EyeHypotony of EyeHypotony of EyeHypotony of EyeHypotony of EyeHypotony of EyeBlepharitis SquamousBlepharitis SquamousBlepharitis SquamousBlepharitis SquamousBlepharitis SquamousBlepharitis SquamousBlepharitis SquamousBlepharitis SquamousBlepharitis SquamousBlepharitis SquamousBlepharitis SquamousCorneal Degeneration Recurrent ErosionCorneal Degeneration Recurrent ErosionCorneal Degeneration Recurrent ErosionCorneal Degeneration Recurrent Erosion RODDY (Reilly Hebert MD [facility]) 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 Dry Eye Syndrome Right Eye Dry Eye Syndrome Right Eye Dry Eye Syndrome Right Eye Dry Eye Syndrome Right Eye Dry Eye Syndrome Right Eye Dry Eye Syndrome Right Eye Dry Eye Syndrome Right Eye Dry Eye Syndrome Right Eye Dry Eye Syndrome Right Eye Dry Eye Syndrome Right Eye Dry Eye Syndrome Right Eye 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 Blepharitis Squamous Blepharitis Squamous Blepharitis Squamous Blepharitis Squamous Blepharitis Squamous Blepharitis Squamous Blepharitis Squamous Blepharitis Squamous Blepharitis Squamous Blepharitis Squamous 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 Corneal Degeneration Recurrent Erosion Corneal Degeneration Recurrent Erosion <td ID="[id number]">3d ay followup</td><td>Reilly Burks MD, FACS</td><td>Reilly Burks MD [facility]</td><td>03/16/2020</td><td>8:11AM</td><td>8:54AM</td><td><content ID="[id number]">Hypotony of Eye</content>, <content ID="[id number]">Corneal Degeneration Recurrent Erosion</content>, <content ID="[id number]">Blepharitis Squamous</content>, <content ID="[id number]">Dry Eye Syndrome Right Eye</content>, <content ID="[id number]">Phthisis Bulbi Left Eye</content></td>Outpatient Attender: Reilly Hebert MD, FACS [facility] 03/16/2020 08:11:0 0 AM EST - 03/16/2020 08:54:00 AM EST Phthisis Bulbi Left EyeCorneal Degenerat ion Recurrent ErosionPhthisis Bulbi Left EyeCorneal Degeneration Recurrent ErosionPhthisis Bulbi Left EyeCorneal Degeneration Recurrent ErosionPhthisis Bulbi Left EyeCorneal Degeneration Recurrent ErosionPhthisis Bulbi Left EyeCorneal Degeneration Recurrent ErosionPhthisis Bulbi Left EyeCorneal Degeneration Recurrent ErosionPhthisis Bulbi Left EyeCorneal Degeneration Recurrent ErosionPhthisis Bulbi Left EyePhthisis Bulbi Left EyePhthisis Bulbi Left EyePhthisis Bulbi Left EyeDry Eye Syndrome Right EyeDry Eye Syndrome Right EyeDry Eye Syndrome Right EyeDry Eye Syndrome Right EyeDry Eye Syndrome Right EyeDry Eye Syndrome Right EyeDry Eye Syndrome Right EyeDry Eye Syndrome Right EyeDry Eye Syndrome Right EyeDry Eye Syndrome Right EyeDry Eye Syndrome Right EyeHypotony of EyeHypotony of EyeHypotony of EyeHypotony of EyeHypotony of EyeHypotony of EyeHypotony of EyeHypotony of EyeHypotony of EyeHypotony of EyeHypotony of EyeBlepharitis SquamousBlepharitis SquamousBlepharitis SquamousBlepharitis SquamousBlepharitis SquamousBlepharitis SquamousBlepharitis SquamousBlepharitis SquamousBlepharitis SquamousBlepharitis SquamousBlepharitis SquamousCorneal Degeneration Recurrent ErosionCorneal Degeneration Recurrent ErosionCorneal Degeneration Recurrent ErosionCorneal Degeneration Recurrent Erosion RODDY (Reilly Hebert MD [facility]) 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 Dry Eye Syndrome Right Eye Dry Eye Syndrome Right Eye Dry Eye Syndrome Right Eye Dry Eye Syndrome Right Eye Dry Eye Syndrome Right Eye Dry Eye Syndrome Right Eye Dry Eye Syndrome Right Eye Dry Eye Syndrome Right Eye Dry Eye Syndrome Right Eye Dry Eye Syndrome Right Eye Dry Eye Syndrome Right Eye 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 Blepharitis Squamous Blepharitis Squamous Blepharitis Squamous Blepharitis Squamous Blepharitis Squamous Blepharitis Squamous Blepharitis Squamous Blepharitis Squamous Blepharitis Squamous Blepharitis Squamous 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 Corneal Degeneration Recurrent Erosion Corneal Degeneration Recurrent Erosion Outpatient<td ID="encounterTypeDescripti onID13">1 Month Follow- Up</td><td>Dmitry Torres DO</td><td>Reilly Burks MD [facility]</td><td>03/12/2020</td><td>7:47AM</td><td>8:53AM</td><td><content ID="[id number]">Hypotony of Eye</content>, <content ID="[id number]">Blepharitis Squamous</content>, <content ID="[id number]">Dry Eye Syndrome Right Eye</content>, <content ID="[id number]">Phthisis Bulbi Left Eye</content>, <content ID="[id number]">Corneal Degeneration Recurrent Erosion</content>< /td> Attender: DMITRY Santacruz MD [facility] 02/22 07:47:00 AM EST - 03/12/2020 08:53:00 AM EST Corneal Degeneration Recurrent ErosionPhthisis Bulbi Left EyeCorneal Degeneration Recurrent ErosionPhthisis Bulbi Left EyeCorneal Degeneration Recurrent ErosionPhthisis Bulbi Left EyeCorneal Degeneration Recurrent ErosionPhthisis Bulbi Left EyeCorneal Degeneration Recurrent ErosionPhthisis Bulbi Left EyeCorneal Degeneration Recurrent ErosionPhthisis Bulbi Left EyeCorneal Degeneration Recurrent ErosionPhthisis Bulbi Left EyePhthisis Bulbi Left EyePhthisis Bulbi Left Eye Phthisis Bulbi Left EyePhthisis Bulbi Left EyePhthisis Bulbi Left EyeDry Eye Syndrome Right EyeDry Eye Syndrome Right EyeDry Eye Syndrome Right EyeDry Eye Syndrome Right EyeDry Eye Syndrome Right EyeDry Eye Syndrome Right EyeDry Eye Syndrome Right EyeDry Eye Syndrome Right EyeDry Eye Syndrome Right EyeDry Eye Syndrome Right EyeDry Eye Syndrome Right EyeDry Eye Syndrome Right EyeHypotony of EyeHypotony of EyeHypotony of EyeHypotony of EyeHypotony of EyeHypotony of EyeHypotony of EyeHypotony of EyeHypotony of EyeHypotony of EyeHypotony of EyeHypotony of EyeBlepharitis SquamousBlepharitis SquamousBlepharitis SquamousBlepharitis SquamousBlepharitis SquamousBlepharitis SquamousBlepharitis SquamousBlepharitis SquamousBlepharitis SquamousBlepharitis SquamousBlepharitis SquamousBlepharitis SquamousCorneal Degeneration Recurrent ErosionCorneal Degeneration Recurrent ErosionCorneal Degeneration Recurrent ErosionCorneal Degeneration Recurrent ErosionCorneal Degeneration Recurrent Erosion RODDY (Reilly Hebert MD [facility]) Corneal Degeneration Recurrent Erosion 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 Dry Eye Syndrome Right Eye Dry Eye Syndrome Right Eye Dry Eye Syndrome Right Eye Dry Eye Syndrome Right Eye Dry Eye Syndrome Right Eye Dry Eye Syndrome Right Eye Dry Eye Syndrome Right Eye Dry Eye Syndrome Right Eye Dry Eye Syndrome Right Eye Dry Eye Syndrome Right Eye Dry Eye Syndrome Right Eye Dry Eye Syndrome Right Eye 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 Blepharitis Squamous Blepharitis Squamous Blepharitis Squamous Blepharitis Squamous Blepharitis Squamous Blepharitis Squamous Blepharitis Squamous Blepharitis Squamous Blepharitis Squamous Blepharitis Squamous Blepharitis Squamous 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 Corneal Degeneration Recurrent Erosion Corneal Degeneration Recurrent Erosion Corneal Degeneration Recurrent Erosion [place] [address] [address] 03/08/2020 12:00:00 AM EST eCW1 ([facility]) Outpatient Attender: Martha Boykin PAReferrer: Carlos [email or web address] 03/04/2020 12:00:00 AM EST - 03/04/2020 02:47:53 PM EST [facility] Unknown [address] [address] 03/04/2020 12:00:00 AM EST eCW1 ([facility]) OFFICE OUTPATIENT VISIT 15 MINUTES Attender: Norris STEWART Physical Therapy 03/01/2020 08:30:00 AM EST MEDOLGA ([facility] ) <td ID="[id number]">6 Week Follow-Up</td><td>Dmitry Torres DO</td><td>Reilly Burks MD [facility]</td><td>02/11/2020</td><td>8:00AM</td><td>9:56AM</td><td><content ID="[id number]">Hypotony of Eye</content>, <content ID="[id number]">Blepharitis Squamous</content>, <content ID="[id number]">Dry Eye Syndrome Right Eye</content>, <content ID="[id number]">Phthisis Bulbi Left Eye</content></td>Outpatient Attender: DMITRY Santacruz MD [facility] 02/11/2020 08:00:00 AM EDT - 02/11/2020 09:56:00 AM EDT Phthisis Bulbi Left EyePhthisis Bulbi Le ft EyePhthisis Bulbi Left EyePhthisis Bulbi Left EyePhthisis Bulbi Left EyePhthisis Bulbi Left EyePhthisis Bulbi Left EyePhthisis Bulbi Left EyePhthisis Bulbi Left EyePhthisis Bulbi Left EyePhthisis Bulbi Left EyePhthisis Bulbi Left EyePhthisis Bulbi Left EyeDry Eye Syndrome Right EyeDry Eye Syndrome Right EyeDry Eye Syndrome Right EyeDry Eye Syndrome Right EyeDry Eye Syndrome Right EyeDry Eye Syndrome Right EyeDry Eye Syndrome Right EyeDry Eye Syndrome Right EyeDry Eye Syndrome Right EyeDry Eye Syndrome Right EyeDry Eye Syndrome Right EyeDry Eye Syndrome Right EyeDry Eye Syndrome Right EyeHypotony of EyeHypotony of EyeHypotony of EyeHypotony of EyeHypotony of EyeHypotony of EyeHypotony of EyeHypotony of EyeHypotony of EyeHypotony of EyeHypotony of EyeHypotony of EyeHypotony of EyeBlepharitis SquamousBlepharitis SquamousBlepharitis SquamousBlepharitis SquamousBlepharitis SquamousBlepharitis SquamousBlepharitis SquamousBlepharitis SquamousBlepharitis SquamousBlepharitis SquamousBlepharitis SquamousBlepharitis SquamousBlepharitis Squamous [place] (Reilly Hebert MD [facility]) 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 Dry Eye Syndrome Right Eye Dry Eye Syndrome Right Eye Dry Eye Syndrome Right Eye Dry Eye Syndrome Right Eye Dry Eye Syndrome Right Eye Dry Eye Syndrome Right Eye Dry Eye Syndrome Right Eye Dry Eye Syndrome Right Eye Dry Eye Syndrome Right Eye Dry Eye Syndrome Right Eye Dry Eye Syndrome Right Eye Dry Eye Syndrome Right Eye Dry Eye Syndrome Right Eye 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 Blepharitis Squamous Blepharitis Squamous Blepharitis Squamous Blepharitis Squamous Blepharitis Squamous Blepharitis Squamous Blepharitis Squamous Blepharitis Squamous Blepharitis Squamous Blepharitis Squamous Blepharitis Squamous Blepharitis Squamous Blepharitis Squamous Outpatient Attender: TJ ALBA NP Physical Therapy 09:15:00 AM EDT MEDENT ([facility]) Outpatient Attender: Shantal JOHNSTON.BRIGID-SJPJose LuisBRIGID 09/2019 12:00:00 AM EDT - 01/27/2020 09:21:45 AM EDT [facility] Outpatient [address] [address] 01/22/2020 12:00:00 AM EDT eC ([facility]) Outpatient Attender: Shantal JOHNSTON.[email or web address] 12/23 12:00:00 AM EDT - 01/20/2020 11:31:30 AM EDT [facility] [address] [place] [phone] 01/16/2020 12:00:00 AM EDT eCW1 ([facility]) Outpatient<td ID="[id number]">6 Week Follow-Up</td><td>Dmitry Torres DO</td><td>Reilly Burks MD [facility]</td><td>01/02/2020</td><td>8:21AM</td><td>9:17AM</td><td><content ID="[email or web address]">Hypotony of Eye</content>, <content ID="[id number]">Blepharitis Squamous</content>, <content ID="[id number]">Phthisis Bulbi Left Eye</content>, <content ID="[id number]">Dry Eye Syndrome Right Eye</content></td> Attender: DMITRY Santacruz MD [facility] 01/02/2020 08:21:00 AM EDT - 01/02/2020 09:17:00 AM EDT Dry Eye Syndrome Right EyePhthisis Bulbi Left EyeDry Eye Syndrome Right EyePhthisis Bulbi Left EyeDry Eye Syndrome Right EyePhthisis Bulbi Left EyeDry Eye Syndrome Right EyePhthisis Bulbi Left EyeDry Eye Syndrome Right EyePhthisis Bulbi Left EyeDry Eye Syndrome Right EyePhthisis Bulbi Left EyeDry Eye Syndrome Right EyePhthisis Bulbi Left EyeDry Eye Syndrome Right EyePhthisis Bulbi Left EyeDry Eye Syndrome Right EyePhthisis Bulbi Left EyeDry Eye Syndrome Right EyePhthisis Bulbi Left EyeDry Eye Syndrome Right EyePhthisis Bulbi Left EyeDry Eye Syndrome Right EyePhthisis Bulbi Left EyeDry Eye Syndrome Right EyePhthisis Bulbi Left EyeHypotony of EyeHypotony of EyeHypotony of EyeHypotony of EyeHypotony of EyeHypotony of EyeHypotony of EyeHypotony of EyeHypotony of EyeHypotony of EyeHypotony of EyeHypotony of EyeHypotony of EyeBlepharitis SquamousBlepharitis SquamousBlepharitis SquamousBlepharitis SquamousBlepharitis SquamousBlepharitis SquamousBlepharitis SquamousBlepharitis SquamousBlepharitis SquamousBlepharitis SquamousBlepharitis SquamousBlepharitis SquamousBlepharitis Squamous RODDY (Reilly Hebert MD [facility]) Dry Eye Syndrome Right Eye Phthisis Bulbi Left Eye Dry Eye Syndrome Right Eye Phthisis Bulbi Left Eye Dry Eye Syndrome Right Eye Phthisis Bulbi Left Eye Dry Eye Syndrome Right Eye Phthisis Bulbi Left Eye Dry Eye Syndrome Right Eye Phthisis Bulbi Left Eye Dry Eye Syndrome Right Eye Phthisis Bulbi Left Eye Dry Eye Syndrome Right Eye Phthisis Bulbi Left Eye Dry Eye Syndrome Right Eye Phthisis Bulbi Left Eye Dry Eye Syndrome Right Eye Phthisis Bulbi Left Eye Dry Eye Syndrome Right Eye Phthisis Bulbi Left Eye Dry Eye Syndrome Right Eye Phthisis Bulbi Left Eye Dry Eye Syndrome Right Eye Phthisis Bulbi Left Eye Dry Eye Syndrome Right Eye Phthisis Bulbi Left Eye 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 Blepharitis Squamous Blepharitis Squamous Blepharitis Squamous Blepharitis Squamous Blepharitis Squamous Blepharitis Squamous Blepharitis Squamous Blepharitis Squamous Blepharitis Squamous Blepharitis Squamous Blepharitis Squamous Blepharitis Squamous Blepharitis Squamous Immunizations Vaccine Date Status Description Data Source(s) COVID-19 dose #2 given elsewhere Unspecified 06/27/2020 11:2 7:00 AM EST completed eCW1 ([facility]) COVID-19 dose #2 given elsewhere Unspecified 06/27/2020 11:2 7:00 AM EST completed eCW1 ([facility]) COVID-19 dose #2 given elsewhere Unspecified 06/27/2020 11:2 7:00 AM EST completed eCW1 ([facility]) COVID-19 dose #2 given elsewhere Unspecified 06/27/2020 11:2 7:00 AM EST completed eCW1 ([facility]) COVID-19 dose #2 given elsewhere Unspecified 06/27/2020 11:2 7:00 AM EST completed eCW1 ([facility]) COVID-19 dose #2 given elsewhere Unspecified 06/27/2020 11:2 7:00 AM EST completed eCW1 ([facility]) COVID-19 dose #2 given elsewhere Unspecified 06/27/2020 11:2 7:00 AM EST completed eCW1 ([facility]) COVID-19 VACCINE Moderna 06/27/2020 12:00:00 AM EST completed NYSIIS Vaccine Series Complete: YESThis Data wa s Submitted to [facility] Via Always Prepped. COVID-19 dose #1 given elsewhere Unspecified 06/07/2020 11:2 6:00 AM EST completed eCW1 ([facility]) COVID-19 dose #1 given elsewhere Unspecified 06/07/2020 11:2 6:00 AM EST completed eCW1 ([facility]) COVID-19 dose #1 given elsewhere Unspecified 06/07/2020 11:2 6:00 AM EST completed eCW1 ([facility]) COVID-19 dose #1 given elsewhere Unspecified 06/07/2020 11:2 6:00 AM EST completed eCW1 ([facility]) COVID-19 dose #1 given elsewhere Unspecified 06/07/2020 11:2 6:00 AM EST completed eCW1 ([facility]) COVID-19 dose #1 given elsewhere Unspecified 06/07/2020 11:2 6:00 AM EST completed eCW1 ([facility]) COVID-19 dose #1 given elsewhere Unspecified 06/07/2020 11:2 6:00 AM EST completed eCW1 ([facility]) COVID-19 VACCINE Moderna 05/30/2020 12:00:00 AM EST completed NYSIIS Vaccine Series Complete: NOThis Data was Submitted to [facility] Via [employer]BuilderSI[employer]. influenza, recombinant, quadrIvalent,injectable, prese rvative free 01/22/2020 11:46:00 AM EDT completed eCW1 ([facility]) influenza, recombinant, quadrIvalent,injectable, prese rvative free 01/22/2020 11:46:00 AM EDT completed eCW1 ([facility]) influenza, recombinant, quadrIvalent,injectable, prese rvative free 01/22/2020 11:46:00 AM EDT completed eCW1 ([facility]) influenza, recombinant, quadrIvalent,injectable, prese rvative free 01/22/2020 11:46:00 AM EDT completed eCW1 ([facility]) influenza, recombinant, quadrIvalent,injectable, prese rvative free 01/22/2020 11:46:00 AM EDT completed eCW1 ([facility]) influenza, recombinant, quadrIvalent,injectable, prese rvative free 01/22/2020 11:46:00 AM EDT completed eCW1 ([facility]) influenza, recombinant, quadrIvalent,injectable, prese rvative free 01/22/2020 11:46:00 AM EDT completed eCW1 ([facility]) influenza, recombinant, quadrIvalent,injectable, prese rvative free 01/22/2020 11:46:00 AM EDT completed eCW1 ([facility]) influenza, recombinant, quadrIvalent,injectable, prese rvative free 01/22/2020 11:46:00 AM EDT completed eCW1 ([facility]) influenza, recombinant, quadrIvalent,injectable, prese rvative free 01/22/2020 11:46:00 AM EDT completed eCW1 ([facility]) influenza, recombinant, quadrIvalent,injectable, prese rvative free 01/22/2020 11:46:00 AM EDT completed eCW1 ([facility]) influenza, recombinant, quadrIvalent,injectable, prese rvative free 01/22/2020 11:46:00 AM EDT completed eCW1 ([facility]) influenza, recombinant, quadrIvalent,injectable, prese rvative free 01/22/2020 11:46:00 AM EDT completed eCW1 ([facility]) influenza, recombinant, quadrIvalent,injectable, prese rvative free 01/22/2020 11:46:00 AM EDT completed eCW1 ([facility]) influenza, recombinant, quadrIvalent,injectable, prese rvative free 01/22/2020 11:46:00 AM EDT completed eCW1 ([facility]) influenza, recombinant, quadrIvalent,injectable, prese rvative free 01/22/2020 11:46:00 AM EDT completed eCW1 ([facility]) influenza, recombinant, quadrIvalent,injectable, prese rvative free 01/22/2020 11:46:00 AM EDT completed eCW1 ([facility]) influenza, recombinant, quadrIvalent,injectable, prese rvative free 01/22/2020 11:46:00 AM EDT completed eCW1 ([facility]) influenza, recombinant, quadrIvalent,injectable, prese rvative free 01/22/2020 11:46:00 AM EDT completed eCW1 ([facility]) influenza, recombinant, quadrIvalent,injectable, prese rvative free 01/22/2020 11:46:00 AM EDT completed eCW1 ([facility]) influenza, recombinant, quadrIvalent,injectable, prese rvative free 01/22/2020 11:46:00 AM EDT completed eCW1 ([facility]) influenza, recombinant, quadrIvalent,injectable, prese rvative free 01/22/2020 11:46:00 AM EDT completed eCW1 ([facility]) influenza, recombinant, quadrIvalent,injectable, prese rvative free 01/22/2020 11:46:00 AM EDT completed eCW1 ([facility]) influenza, recombinant, quadrIvalent,injectable, prese rvative free 01/22/2020 11:46:00 AM EDT completed eCW1 ([facility]) influenza, recombinant, quadrIvalent,injectable, prese rvative free 01/22/2020 11:46:00 AM EDT completed eCW1 ([facility]) influenza, recombinant, quadrIvalent,injectable, prese rvative free 01/22/2020 11:46:00 AM EDT completed eCW1 ([facility]) influenza, recombinant, quadrIvalent,injectable, prese rvative free 01/22/2020 11:46:00 AM EDT completed eCW1 ([facility]) influenza, recombinant, quadrIvalent,injectable, prese rvative free 01/22/2020 11:46:00 AM EDT completed eCW1 ([facility]) influenza, recombinant, quadrIvalent,injectable, prese rvative free 01/22/2020 11:46:00 AM EDT completed eCW1 ([facility]) influenza, recombinant, quadrIvalent,injectable, prese rvative free 01/22/2020 11:46:00 AM EDT completed eCW1 ([facility]) influenza, recombinant, quadrIvalent,injectable, prese rvative free 01/22/2020 11:46:00 AM EDT completed eCW1 ([facility]) influenza, recombinant, quadrIvalent,injectable, prese rvative free 01/22/2020 11:46:00 AM EDT completed eCW1 ([facility]) influenza, recombinant, quadrIvalent,injectable, prese rvative free 01/22/2020 11:46:00 AM EDT completed eCW1 ([facility]) influenza, recombinant, quadrIvalent,injectable, prese rvative free 01/22/2020 11:46:00 AM EDT completed eCW1 ([facility]) influenza, recombinant, quadrIvalent,injectable, prese rvative free 01/22/2020 11:46:00 AM EDT completed eCW1 ([facility]) influenza, recombinant, quadrIvalent,injectable, prese rvative free 01/22/2020 11:46:00 AM EDT completed eCW1 ([facility]) influenza, recombinant, quadrIvalent,injectable, prese rvative free 01/22/2020 11:46:00 AM EDT completed eCW1 ([facility]) Medications Medication Brand Name Start Date Product Form Dose Route Admi nistrative Instructions Pharmacy Instructions Status Indications Reaction Description Data Source(s) Spironolactone 25 MG Oral Tablet spironolactone (ALDAC TONE) 25 MG tablet spironolactone (ALDACTONE) 25 MG tablet 01/06/2021 12:00:00 AM EDT 12.5 mg Oral active Take 0.5 tablets (12 .5 mg total) by mouth daily [facility] Digoxin 0.125 MG Oral Tablet digoxin (LANOXIN) 125 MCG tablet digoxin (LANOXIN) 125 MCG tablet 01/06/2021 12:00:00 AM EDT 125 ug Oral act danielle Take 1 tablet (125 mcg total) by mouth daily [facility] 24 HR Diltiazem Hydrochloride 120 MG Ext ended Release Oral Capsule diltiazem (CARDIZEM CD) 120 MG 24 hr capsule diltiazem (CARDIZEM CD) 120 MG 24 hr capsule 01/06/2021 12:00:00 AM EDT active TAKE ONE CAPSULE BY MOUTH EVERY DAY [facility] Levothyroxine Sodium 0.137 MG Oral Table t levothyroxine (SYNTHROID, LEVOTHROID) 137 MCG tablet levothyroxine (SYNTHROID, LEVOTHROID) 137 MCG tablet 0 12/19/2020 12:00:00 AM EDT active TAKE ONE TABLET BY MOUTH EVERY MORNING ON EMPTY STOMACH [facility] cefpodoxime 200 MG Oral Tablet Cefpodoxime Proxetil 20 0 MG Cefpodoxime Proxetil 200 MG 12/15/2020 12:00:00 AM EDT 1.0 {tablet_with_food} suspended Cefpodoxime Proxetil 200 MG eCW1 ([facility]) doxycycline hyclate 100 MG Oral Tablet Doxycycline Hyc late 100 MG Doxycycline Hyclate 100 MG 12/15/2020 12:00:00 AM EDT 1.0 {tablet} suspended Doxycycline Hyclate 100 MG eCW1 ([facility]) cefpodoxime 200 MG Oral Tablet Cefpodoxime Proxetil 20 0 MG Cefpodoxime Proxetil 200 MG 12/15/2020 12:00:00 AM EDT 1.0 {tablet_with_food} active Cefpodoxime Proxetil 200 MG eCW1 ([facility]) doxycycline hyclate 100 MG Oral Tablet doxycycline ( BRA-TABS) 100 MG tablet doxycycline (VIBRA-TABS) 100 MG tablet 12/15/2020 12:00:00 AM EDT aborted 2 (two) times a day [facility] cefpodoxime 200 MG Oral Tablet cefpodoxime (VANTIN) 20 0 MG tablet cefpodoxime (VANTIN) 200 MG tablet 12/15/2020 12:00:00 AM EDT aborted daily [facility] doxycycline hyclate 100 MG Oral Tablet Doxycycline Hyc late 100 MG Doxycycline Hyclate 100 MG 12/15/2020 12:00:00 AM EDT 1.0 {tablet} suspended Doxycycline Hyclate 100 MG eCW1 ([facility]) doxycycline hyclate 100 MG Oral Tablet Doxycycline Hyc late 100 MG Doxycycline Hyclate 100 MG 12/15/2020 12:00:00 AM EDT 1.0 {tablet} suspended Doxycycline Hyclate 100 MG eCW1 ([facility]) doxycycline hyclate 100 MG Oral Tablet Doxycycline Hyc late 100 MG Doxycycline Hyclate 100 MG 12/15/2020 12:00:00 AM EDT 1.0 {tablet} active Doxycycline Hyclate 100 MG eCW1 ([facility]) doxycycline hyclate 100 MG Oral Tablet Doxycycline Hyc late 100 MG Doxycycline Hyclate 100 MG 12/15/2020 12:00:00 AM EDT 1.0 {tablet} suspended Doxycycline Hyclate 100 MG eCW1 ([facility]) doxycycline hyclate 100 MG Oral Tablet Doxycycline Hyc late 100 MG Doxycycline Hyclate 100 MG 12/15/2020 12:00:00 AM EDT 1.0 {tablet} suspended Doxycycline Hyclate 100 MG eCW1 ([facility]) cefpodoxime 200 MG Oral Tablet Cefpodoxime Proxetil 20 0 MG Cefpodoxime Proxetil 200 MG 12/15/2020 12:00:00 AM EDT 1.0 {tablet_with_food} suspended Cefpodoxime Proxetil 200 MG eCW1 ([facility]) doxycycline hyclate 100 MG Oral Tablet Doxycycline Hyc late 100 MG Doxycycline Hyclate 100 MG 12/15/2020 12:00:00 AM EDT 1.0 {tablet} active Doxycycline Hyclate 100 MG eCW1 ([facility]) cefpodoxime 200 MG Oral Tablet Cefpodoxime Proxetil 20 0 MG Cefpodoxime Proxetil 200 MG 12/15/2020 12:00:00 AM EDT 1.0 {tablet_with_food} suspended Cefpodoxime Proxetil 200 MG eCW1 ([facility]) doxycycline hyclate 100 MG Oral Tablet Doxycycline Hyc late 100 MG Doxycycline Hyclate 100 MG 12/15/2020 12:00:00 AM EDT 1.0 {tablet} suspended Doxycycline Hyclate 100 MG eCW1 ([facility]) cefpodoxime 200 MG Oral Tablet Cefpodoxime Proxetil 20 0 MG Cefpodoxime Proxetil 200 MG 12/15/2020 12:00:00 AM EDT 1.0 {tablet_with_food} suspended Cefpodoxime Proxetil 200 MG eCW1 ([facility]) cefpodoxime 200 MG Oral Tablet Cefpodoxime Proxetil 20 0 MG Cefpodoxime Proxetil 200 MG 12/15/2020 12:00:00 AM EDT 1.0 {tablet_with_food} suspended Cefpodoxime Proxetil 200 MG eCW1 ([facility]) cefpodoxime 200 MG Oral Tablet Cefpodoxime Proxetil 20 0 MG Cefpodoxime Proxetil 200 MG 12/15/2020 12:00:00 AM EDT 1.0 {tablet_with_food} suspended Cefpodoxime Proxetil 200 MG eCW1 ([facility]) cefpodoxime 200 MG Oral Tablet Cefpodoxime Proxetil 20 0 MG Cefpodoxime Proxetil 200 MG 12/15/2020 12:00:00 AM EDT 1.0 {tablet_with_food} active Cefpodoxime Proxetil 200 MG eCW1 ([facility]) Levothyroxine Sodium 0.137 MG Oral Tablet Levothyroxin e Sodium 137 MCG Levothyroxine Sodium 137 MCG 11/25/2020 12:00:00 AM EDT active Levothyroxine Sodium 137 MCG eCW1 ([facility]) Levothyroxine Sodium 0.137 MG Oral Tablet Levothyroxin e Sodium 137 MCG Levothyroxine Sodium 137 MCG 11/25/2020 12:00:00 AM EDT active Levothyroxine Sodium 137 MCG eCW1 ([facility]) Levothyroxine Sodium 0.137 MG Oral Tablet Levothyroxin e Sodium 137 MCG Levothyroxine Sodium 137 MCG 11/25/2020 12:00:00 AM EDT active Levothyroxine Sodium 137 MCG eCW1 ([facility]) Levothyroxine Sodium 0.137 MG Oral Tablet Levothyroxin e Sodium 137 MCG Levothyroxine Sodium 137 MCG 11/25/2020 12:00:00 AM EDT active Levothyroxine Sodium 137 MCG eCW1 ([facility]) Levothyroxine Sodium 0.112 MG Oral Table t levothyroxine (SYNTHROID, LEVOTHROID) 112 MCG tablet levothyroxine (SYNTHROID, LEVOTHROID) 112 MCG tablet 0 11/25/2020 12:00:00 AM EDT 137 ug aborted 137 mcg [facility] Levothyroxine Sodium 0.137 MG Oral Tablet Levothyroxin e Sodium 137 MCG Levothyroxine Sodium 137 MCG 11/25/2020 12:00:00 AM EDT active Levothyroxine Sodium 137 MCG eCW1 ([facility]) Levothyroxine Sodium 0.137 MG Oral Tablet Levothyroxin e Sodium 137 MCG Levothyroxine Sodium 137 MCG 11/25/2020 12:00:00 AM EDT active Levothyroxine Sodium 137 MCG eCW1 ([facility]) Levothyroxine Sodium 0.137 MG Oral Tablet Levothyroxin e Sodium 137 MCG Levothyroxine Sodium 137 MCG 11/25/2020 12:00:00 AM EDT active Levothyroxine Sodium 137 MCG eCW1 ([facility]) Levothyroxine Sodium 0.137 MG Oral Tablet Levothyroxin e Sodium 137 MCG Levothyroxine Sodium 137 MCG 11/25/2020 12:00:00 AM EDT active Levothyroxine Sodium 137 MCG eCW1 ([facility]) Levothyroxine Sodium 0.137 MG Oral Tablet Levothyroxin e Sodium 137 MCG Levothyroxine Sodium 137 MCG 11/25/2020 12:00:00 AM EDT active Levothyroxine Sodium 137 MCG eCW1 ([facility]) Levothyroxine Sodium 0.137 MG Oral Tablet Levothyroxin e Sodium 137 MCG Levothyroxine Sodium 137 MCG 11/25/2020 12:00:00 AM EDT active Levothyroxine Sodium 137 MCG eCW1 ([facility]) aminophylline injection 75 mg [id number] 11/24/2020 10:00:00 AM EDT 75 mg Intravenous active Chest pain, unspecified typeAbnormal E KG [facility] Chest pain, unspecified type Abnormal EKG 24 HR Diltiazem Hydrochloride 120 MG Ext ended Release Oral Capsule diltiazem (CARDIZEM CD) 120 MG 24 hr capsule diltiazem (CARDIZEM CD) 120 MG 24 hr capsule 11/11/2020 12:00:00 AM EDT 120 mg Oral active Take 1 capsule (120 mg total) by mouth daily [facility] 0.5 ML dulaglutide 3 MG/ML Auto-Injector [Trulicity] Trulici ty 11/09/2020 12:00:00 AM EDT active M EDENT ([facility]) Bisoprolol Oral Capsule Bisoprolol Oral Capsule 11/09/2020 12:00:00 A M EDT active Bisoprolol RODDY ([facility]) Chlorthalidone 25 MG Oral Tablet Chlorthalidone 25 MG Oral T ablet 11/09/2020 12:00:00 AM EDT 1 active chlortha lidone 25 MG Oral Tablet RODDY ([facility]) Chlorthalidone 25 MG Oral Tablet chlorthalidone (HYGRO TEN) 25 MG tablet chlorthalidone (HYGROTEN) 25 MG tablet 10/14/2020 12:00:00 AM EDT 2 5 mg Oral active Take 1 tablet (25 mg tota l) by mouth daily [facility] Bisoprolol Fumarate 10 MG Oral Tablet bisoprolol (ZEBE TA) 10 MG tablet bisoprolol (ZEBETA) 10 MG tablet 10/14/2020 12:00:00 AM EDT 10 mg Oral active Take 1 tablet (10 mg total) by m outh daily [facility] Digoxin 0.125 MG Oral Tablet digoxin (LANOXIN) 125 MCG tablet digoxin (LANOXIN) 125 MCG tablet 10/11/2020 12:00:00 AM EDT 125 ug Oral act danielle Take 1 tablet (125 mcg total) by mouth daily [facility] Metoprolol Tartrate 100 MG Oral Tablet m etoprolol tartrate (LOPRESSOR) 100 MG tablet metoprolol tartrate (LOPRESSOR) 100 MG tablet 10/07/2020 12: 00:00 AM EDT aborted TAKE ONE AND ONE -HALF TABLETS BY MOUTH TWICE A DAY [facility] Amoxicillin 500 MG / Clavulanate 125 MG Oral Tablet [Augment in] Augmentin 10/05/2020 12:00:00 AM EDT ORAL completed MEDENT ([facility]) Amoxicillin 500 MG / Clavulanate 125 MG Oral Tablet amoxicillin-clavulanate (AUGMENTIN) 500-125 MG per tablet amoxicillin-clavulanate (AUGMENTIN) 500- 125 MG per tablet 10/05/2020 12:00:00 AM EDT 1 {tbl} Oral abort ed Take 1 tablet by mouth 3 (three) times a day [facility] apixaban 5 MG Oral Tablet Apixaban (Eliquis) 5 MG TABS tablet Apixaban (Eliquis) 5 MG TABS tablet 09/21/2020 12:00:00 AM EDT 5 mg Oral active Persistent atrial fibrillation Take 1 tablet (5 mg total) by mouth 2 (t wo) times a day [facility] Persistent atrial fibrillation Cyclosporine 0.5 MG/ML Ophthalmic Suspen leroy [Restasis] Restasis 0.05% Ophthalmic Emulsion Restasis 0.05% Ophthalmic Emulsion 09/15/2020 12:00:00 AM EDT active cyclospo rine 0.5 MG/ML Ophthalmic Suspension [Restasis] RODDY ([facility]) Digoxin 0.125 MG Oral Tablet [Digox] Digox 125 MCG Ora l Tablet Digox 125 MCG Oral Tablet 09/14/2020 12:00:00 AM EDT active digoxin 0.125 MG Oral Tablet [Digox] RODDY ([facility]) Dexamethasone 1 MG/ML / Tobramycin 3 MG/ ML Ophthalmic Suspension Tobramycin- Dexamethasone 0.3-0.1% Ophthalmic Suspension Tobramycin-Dexamethasone 0.3-0.1% Ophthalmic Suspension 09/02/2020 12:00:00 AM EDT active dexamethasone 1 MG/ML / tobramycin 3 MG/ML Ophthalmic Suspension RODDY ([facility]) Sinus Rinse Bottle Kit 08/31/2020 12:00:00 AM EDT active MEDENT ([facility], ) Dexamethasone 1 MG/ML / Tobramycin 3 MG/ML Ophthalmic Suspension [Tobradex] Tobradex 08/31/2020 12:00:00 AM EDT OPHTHALMIC active MEDENT ([facility], ) Sulfamethoxazole 800 MG / Trimethoprim 160 MG Oral Tablet [B actrim] Bactrim DS 08/31/2020 12:00:00 AM EDT ORAL completed MEDENT ([facility], ) Acetaminophen 300 MG / Codeine Phosphate 30 MG Oral Tablet [Tylenol with Codeine] Tylenol With Codeine #3 08/25/2020 12:00:00 AM EDT ORAL completed MEDENT ([facility], ) atorvastatin 80 MG Oral Tablet atorvastatin (LIPITOR) 80 MG tablet atorvastatin (LIPITOR) 80 MG tablet 08/24/2020 12:00:00 AM EDT 80 mg Oral active Take 1 tablet (80 mg total) by mouth daily [facility] Levothyroxine Sodium 0.15 MG Oral Tablet Levothyroxine Sodium 150 MCG Levothyroxine Sodium 150 MCG 08/04/2020 12:00:00 AM EDT active Levothyroxine Sodium 150 MCG eCW1 ([facility]) Levothyroxine Sodium 0.15 MG Oral Tablet Levothyroxine Sodium 150 MCG Levothyroxine Sodium 150 MCG 08/04/2020 12:00:00 AM EDT active Levothyroxine Sodium 150 MCG eCW1 ([facility]) Levothyroxine Sodium 0.15 MG Oral Tablet Levothyroxine Sodium 150 MCG Levothyroxine Sodium 150 MCG 08/04/2020 12:00:00 AM EDT active Levothyroxine Sodium 150 MCG eCW1 ([facility]) Levothyroxine Sodium 0.15 MG Oral Tablet Levothyroxine Sodium 150 MCG Levothyroxine Sodium 150 MCG 08/04/2020 12:00:00 AM EDT active Levothyroxine Sodium 150 MCG eCW1 ([facility]) Levothyroxine Sodium 0.15 MG Oral Tablet levothyroxine (SYNTHROID, LEVOTHROID) 150 MCG tablet levothyroxine (SYNTHROID, LEVOTHROID) 150 MCG tablet 0 08/04/2020 12:00:00 AM EDT active daily [facility] Levothyroxine Sodium 0.15 MG Oral Tablet Levothyroxine Sodium 150 MCG Levothyroxine Sodium 150 MCG 08/04/2020 12:00:00 AM EDT active Levothyroxine Sodium 150 MCG eCW1 ([facility]) Levothyroxine Sodium 0.15 MG Oral Tablet Levothyroxine Sodium 150 MCG Levothyroxine Sodium 150 MCG 08/04/2020 12:00:00 AM EDT active Levothyroxine Sodium 150 MCG eCW1 ([facility]) Levothyroxine Sodium 0.15 MG Oral Tablet Levothyroxine Sodium 150 MCG Levothyroxine Sodium 150 MCG 08/04/2020 12:00:00 AM EDT active eCW1 ([facility]) 0.5 ML dulaglutide 1.5 MG/ML Auto-Injector [Trulicity] [facility] 08/03/2020 12:00:00 AM EDT completed MEDENT ([facility]) Folic Acid 1 MG Oral Tablet folic acid (FOLVITE) 1 MG tablet folic acid (FOLVITE) 1 MG tablet 08/03/2020 12:00:00 AM EDT 1000 ug Oral active Take 1,000 mcg by mouth daily [facility] Methotrexate 2.5 MG Oral Tablet methotrexate 2.5 MG ta blet methotrexate 2.5 MG tablet 08/03/2020 12:00:00 AM EDT active TAKE 4 TABLETS BY MOUTH ONCE A WEEK DIRECTED [facility] OneTouch Ultra test strip [id number] 07/27/2020 12:00:00 AM EDT active TEST FOUR TIMES A DAY NEEDED [facility] Levothyroxine Sodium 0.137 MG Oral Tablet Levothyroxin e Sodium 137 MCG Levothyroxine Sodium 137 MCG 06/16/2020 12:00:00 AM EST active Levothyroxine Sodium 137 MCG eCW1 ([facility]) Levothyroxine Sodium 0.137 MG Oral Tablet Levothyroxin e Sodium 137 MCG Levothyroxine Sodium 137 MCG 06/16/2020 12:00:00 AM EST active Levothyroxine Sodium 137 MCG eCW1 ([facility]) Levothyroxine Sodium 0.137 MG Oral Tablet Levothyroxin e Sodium 137 MCG Levothyroxine Sodium 137 MCG 06/16/2020 12:00:00 AM EST active Levothyroxine Sodium 137 MCG eCW1 ([facility]) Levothyroxine Sodium 0.137 MG Oral Tablet Levothyroxin e Sodium 137 MCG Levothyroxine Sodium 137 MCG 06/16/2020 12:00:00 AM EST active Levothyroxine Sodium 137 MCG eCW1 ([facility]) Losartan Potassium 25 MG Oral Tablet losartan (COZAAR) 25 MG tablet losartan (COZAAR) 25 MG tablet 06/16/2020 12:00:00 AM EST 25 mg Oral active Take 25 mg by mouth daily [facility] Digoxin 0.125 MG Oral Tablet digoxin (LANOXIN) 125 MCG tablet digoxin (LANOXIN) 125 MCG tablet 06/09/2020 12:00:00 AM EST 125 ug Oral abo rted Take 1 tablet (125 mcg total) by mouth daily [facility] Methotrexate 2.5 MG Oral Tablet Methotrexate 2.5 MG Oral Tab let 05/13/2020 12:00:00 AM EST active methotre xate 2.5 MG Oral Tablet RODDY ([facility]) Folic Acid 1 MG Oral Tablet Folic Acid 1 MG Oral Tablet 04/24 12:00:00 AM EST 1 active folic acid 1 MG O ral Tablet RODDY ([facility]) BD Insulin Syringe U/F 31G X 5/16" 1 ML [facility] [id number] 05/12/2020 12:00:00 AM EST active USE D IRECTED THREE TIMES A DAY MAXIMUM DAILY DOSE 3 [facility] Losartan Potassium 25 MG Oral Tablet Losartan Potassium 12:00:00 AM EST active [facility] ([facility]) Methotrexate 2.5 MG Oral Tablet Methotrexate 05/11/2020 12:00:00 AM EST active [facility] ([facility]) Folic Acid 1 MG Oral Tablet Folic Acid 05/11/2020 12:00:00 AM EST active [facility] ([facility]) Eysuvis Eysuvis 05/11/2020 12:00:00 AM EST OPHTHALMIC c ompleted MEDENT ([facility]) Folic Acid 1 MG Oral Tablet Folic Acid 1 MG 04/30/2020 12:00:00 AM EST 1.0 {tablet} active Folic Acid 1 MG eCW1 ([facility]) Folic Acid 1 MG Oral Tablet Folic Acid 1 MG 04/30/2020 12:00:00 AM EST 1.0 {tablet} active Folic Acid 1 MG eCW1 ([facility]) Folic Acid 1 MG Oral Tablet Folic Acid 1 MG 04/30/2020 12:00:00 AM EST 1.0 {tablet} active Folic Acid 1 MG eCW1 ([facility]) Methotrexate 2.5 MG Oral Tablet Methotrexate Sodium 2. 5 MG Methotrexate Sodium 2.5 MG 04/30/2020 12:00:00 AM EST active Methotrexate Sodium 2.5 MG eCW1 ([facility]) Folic Acid 1 MG Oral Tablet Folic Acid 1 MG 04/30/2020 12:00:00 AM EST 1.0 {tablet} active Folic Acid 1 MG eCW1 ([facility]) Folic Acid 1 MG Oral Tablet Folic Acid 1 MG 04/30/2020 12:00:00 AM EST 1.0 {tablet} active Folic Acid 1 MG eCW1 ([facility]) Folic Acid 1 MG Oral Tablet Folic Acid 1 MG 04/30/2020 12:00:00 AM EST 1.0 {tablet} active Folic Acid 1 MG eCW1 ([facility]) Folic Acid 1 MG Oral Tablet Folic Acid 1 MG 04/30/2020 12:00:00 AM EST 1.0 {tablet} active Folic Acid 1 MG eCW1 ([facility]) Folic Acid 1 MG Oral Tablet Folic Acid 1 MG 04/30/2020 12:00:00 AM EST 1.0 {tablet} active Folic Acid 1 MG eCW1 ([facility]) Methotrexate 2.5 MG Oral Tablet Methotrexate Sodium 2. 5 MG Methotrexate Sodium 2.5 MG 04/30/2020 12:00:00 AM EST active Methotrexate Sodium 2.5 MG eCW1 ([facility]) Methotrexate 2.5 MG Oral Tablet Methotrexate Sodium 2. 5 MG Methotrexate Sodium 2.5 MG 04/30/2020 12:00:00 AM EST active Methotrexate Sodium 2.5 MG eCW1 ([facility]) Methotrexate 2.5 MG Oral Tablet Methotrexate Sodium 2. 5 MG Methotrexate Sodium 2.5 MG 04/30/2020 12:00:00 AM EST active Methotrexate Sodium 2.5 MG eCW1 ([facility]) Folic Acid 1 MG Oral Tablet Folic Acid 1 MG 04/30/2020 12:00:00 AM EST 1.0 {tablet} active Folic Acid 1 MG eCW1 ([facility]) Methotrexate 2.5 MG Oral Tablet Methotrexate Sodium 2. 5 MG Methotrexate Sodium 2.5 MG 04/30/2020 12:00:00 AM EST active Methotrexate Sodium 2.5 MG eCW1 ([facility]) Methotrexate 2.5 MG Oral Tablet Methotrexate Sodium 2. 5 MG Methotrexate Sodium 2.5 MG 04/30/2020 12:00:00 AM EST active Methotrexate Sodium 2.5 MG eCW1 ([facility]) Folic Acid 1 MG Oral Tablet Folic Acid 1 MG 04/30/2020 12:00:00 AM EST 1.0 {tablet} active Folic Acid 1 MG eCW1 ([facility]) Folic Acid 1 MG Oral Tablet Folic Acid 1 MG 04/30/2020 12:00:00 AM EST 1.0 {tablet} active Folic Acid 1 MG eCW1 ([facility]) Folic Acid 1 MG Oral Tablet Folic Acid 1 MG 04/30/2020 12:00:00 AM EST 1.0 {tablet} active Folic Acid 1 MG eCW1 ([facility]) Folic Acid 1 MG Oral Tablet Folic Acid 1 MG 04/30/2020 12:00:00 AM EST 1.0 {tablet} active Folic Acid 1 MG eCW1 ([facility]) Methotrexate 2.5 MG Oral Tablet Methotrexate Sodium 2. 5 MG Methotrexate Sodium 2.5 MG 04/30/2020 12:00:00 AM EST active Methotrexate Sodium 2.5 MG eCW1 ([facility]) Methotrexate 2.5 MG Oral Tablet Methotrexate Sodium 2. 5 MG Methotrexate Sodium 2.5 MG 04/30/2020 12:00:00 AM EST active Methotrexate Sodium 2.5 MG eCW1 ([facility]) Folic Acid 1 MG Oral Tablet Folic Acid 1 MG 04/30/2020 12:00:00 AM EST 1.0 {tablet} active Folic Acid 1 MG eCW1 ([facility]) Methotrexate 2.5 MG Oral Tablet Methotrexate Sodium 2. 5 MG Methotrexate Sodium 2.5 MG 04/30/2020 12:00:00 AM EST active Methotrexate Sodium 2.5 MG eCW1 ([facility]) Methotrexate 2.5 MG Oral Tablet Methotrexate Sodium 2. 5 MG Methotrexate Sodium 2.5 MG 04/30/2020 12:00:00 AM EST active Methotrexate Sodium 2.5 MG eCW1 ([facility]) Methotrexate 2.5 MG Oral Tablet Methotrexate Sodium 2. 5 MG Methotrexate Sodium 2.5 MG 04/30/2020 12:00:00 AM EST active eCW1 ([facility]) Folic Acid 1 MG Oral Tablet Folic Acid 1 MG 04/30/2020 12:00:00 AM EST 1.0 {tablet} active Folic Acid 1 MG eCW1 ([facility]) Methotrexate 2.5 MG Oral Tablet Methotrexate Sodium 2. 5 MG Methotrexate Sodium 2.5 MG 04/30/2020 12:00:00 AM EST active Methotrexate Sodium 2.5 MG eCW1 ([facility]) Methotrexate 2.5 MG Oral Tablet Methotrexate Sodium 2. 5 MG Methotrexate Sodium 2.5 MG 04/30/2020 12:00:00 AM EST active Methotrexate Sodium 2.5 MG eCW1 ([facility]) Folic Acid 1 MG Oral Tablet Folic Acid 1 MG 04/30/2020 12:00:00 AM EST 1.0 {tablet} active Folic Acid 1 MG eCW1 ([facility]) Methotrexate 2.5 MG Oral Tablet Methotrexate Sodium 2. 5 MG Methotrexate Sodium 2.5 MG 04/30/2020 12:00:00 AM EST active Methotrexate Sodium 2.5 MG eCW1 ([facility]) Methotrexate 2.5 MG Oral Tablet Methotrexate Sodium 2. 5 MG Methotrexate Sodium 2.5 MG 04/30/2020 12:00:00 AM EST active Methotrexate Sodium 2.5 MG eCW1 ([facility]) Folic Acid 1 MG Oral Tablet Folic Acid 1 MG 04/30/2020 12:00:00 AM EST 1.0 {tablet} active Folic Acid 1 MG eCW1 ([facility]) Methotrexate 2.5 MG Oral Tablet Methotrexate Sodium 2. 5 MG Methotrexate Sodium 2.5 MG 04/30/2020 12:00:00 AM EST active Methotrexate Sodium 2.5 MG eCW1 ([facility]) Methotrexate 2.5 MG Oral Tablet Methotrexate Sodium 2. 5 MG Methotrexate Sodium 2.5 MG 04/30/2020 12:00:00 AM EST active Methotrexate Sodium 2.5 MG eCW1 ([facility]) Methotrexate 2.5 MG Oral Tablet Methotrexate Sodium 2. 5 MG Methotrexate Sodium 2.5 MG 04/30/2020 12:00:00 AM EST active Methotrexate Sodium 2.5 MG eCW1 ([facility]) Methotrexate 2.5 MG Oral Tablet Methotrexate Sodium 2. 5 MG Methotrexate Sodium 2.5 MG 04/30/2020 12:00:00 AM EST active Methotrexate Sodium 2.5 MG eCW1 ([facility]) Folic Acid 1 MG Oral Tablet Folic Acid 1 MG 04/30/2020 12:00:00 AM EST 1.0 {tablet} active Folic Acid 1 MG eCW1 ([facility]) Methotrexate 2.5 MG Oral Tablet Methotrexate Sodium 2. 5 MG Methotrexate Sodium 2.5 MG 04/30/2020 12:00:00 AM EST active Methotrexate Sodium 2.5 MG eCW1 ([facility]) Folic Acid 1 MG Oral Tablet Folic Acid 1 MG 04/30/2020 12:00:00 AM EST 1.0 {tablet} active Folic Acid 1 MG eCW1 ([facility]) Methotrexate 2.5 MG Oral Tablet Methotrexate Sodium 2. 5 MG Methotrexate Sodium 2.5 MG 04/30/2020 12:00:00 AM EST active Methotrexate Sodium 2.5 MG eCW1 ([facility]) Methotrexate 2.5 MG Oral Tablet Methotrexate Sodium 2. 5 MG Methotrexate Sodium 2.5 MG 04/30/2020 12:00:00 AM EST active Methotrexate Sodium 2.5 MG eCW1 ([facility]) Folic Acid 1 MG Oral Tablet Folic Acid 1 MG 04/30/2020 12:00:00 AM EST 1.0 {tablet} active Folic Acid 1 MG eCW1 ([facility]) Methotrexate 2.5 MG Oral Tablet Methotrexate Sodium 2. 5 MG Methotrexate Sodium 2.5 MG 04/30/2020 12:00:00 AM EST active eCW1 ([facility]) Methotrexate 2.5 MG Oral Tablet Methotrexate Sodium 2. 5 MG Methotrexate Sodium 2.5 MG 04/30/2020 12:00:00 AM EST active Methotrexate Sodium 2.5 MG eCW1 ([facility]) Methotrexate 2.5 MG Oral Tablet Methotrexate Sodium 2. 5 MG Methotrexate Sodium 2.5 MG 04/30/2020 12:00:00 AM EST active Methotrexate Sodium 2.5 MG eCW1 ([facility]) Folic Acid 1 MG Oral Tablet Folic Acid 1 MG 04/30/2020 12:00:00 AM EST 1.0 {tablet} active eCW1 ([facility]) Folic Acid 1 MG Oral Tablet Folic Acid 1 MG 04/30/2020 12:00:00 AM EST 1.0 {tablet} active Folic Acid 1 MG eCW1 ([facility]) Folic Acid 1 MG Oral Tablet Folic Acid 1 MG 04/30/2020 12:00:00 AM EST 1.0 {tablet} active Folic Acid 1 MG eCW1 ([facility]) Folic Acid 1 MG Oral Tablet Folic Acid 1 MG 04/30/2020 12:00:00 AM EST 1.0 {tablet} active eCW1 ([facility]) Folic Acid 1 MG Oral Tablet Folic Acid 1 MG 04/30/2020 12:00:00 AM EST 1.0 {tablet} active Folic Acid 1 MG eCW1 ([facility]) Methotrexate 2.5 MG Oral Tablet Methotrexate Sodium 2. 5 MG Methotrexate Sodium 2.5 MG 04/30/2020 12:00:00 AM EST active Methotrexate Sodium 2.5 MG eCW1 ([facility]) Folic Acid 1 MG Oral Tablet Folic Acid 1 MG 04/30/2020 12:00:00 AM EST 1.0 {tablet} active Folic Acid 1 MG eCW1 ([facility]) Eysuvis 0.25% Ophthalmic Suspension Eysuvis 0.25% Ophthalmic Suspension 04/28/2020 12:00:00 AM EST aborted loteprednol etabonate 2.5 MG/ML Ophthalmic Suspension [Eysuvis] RODDY ([facility]) Losartan Potassium 25 MG Oral Tablet Losartan Potassium 25 M G 04/26/2020 12:00:00 AM EST 1.0 {tablet} active eCW1 ([facility]) Losartan Potassium 25 MG Oral Tablet Losartan Potassium 25 M G 04/26/2020 12:00:00 AM EST 1.0 {tablet} active Lo sartan Potassium 25 MG eCW1 ([facility]) Losartan Potassium 25 MG Oral Tablet Losartan Potassium 25 M G 04/26/2020 12:00:00 AM EST 1.0 {tablet} active Lo sartan Potassium 25 MG eCW1 ([facility]) Losartan Potassium 25 MG Oral Tablet Losartan Potassium 25 M G 04/26/2020 12:00:00 AM EST 1.0 {tablet} active Lo sartan Potassium 25 MG eCW1 ([facility]) Losartan Potassium 25 MG Oral Tablet Losartan Potassium 25 M G 04/26/2020 12:00:00 AM EST 1.0 {tablet} active Lo sartan Potassium 25 MG eCW1 ([facility]) Losartan Potassium 25 MG Oral Tablet Losartan Potassium 25 M G 04/26/2020 12:00:00 AM EST 1.0 {tablet} active Lo sartan Potassium 25 MG eCW1 ([facility]) Levothyroxine Sodium 0.125 MG Oral Tablet Levothyroxin e Sodium 125 MCG Levothyroxine Sodium 125 MCG 04/26/2020 12:00:00 AM EST active Levothyroxine Sodium 125 MCG eCW1 ([facility]) Levothyroxine Sodium 0.125 MG Oral Tablet Levothyroxin e Sodium 125 MCG Levothyroxine Sodium 125 MCG 04/26/2020 12:00:00 AM EST active Levothyroxine Sodium 125 MCG eCW1 ([facility]) Losartan Potassium 25 MG Oral Tablet Losartan Potassium 25 M G 04/26/2020 12:00:00 AM EST 1.0 {tablet} active Lo sartan Potassium 25 MG eCW1 ([facility]) Losartan Potassium 25 MG Oral Tablet Losartan Potassium 25 M G 04/26/2020 12:00:00 AM EST 1.0 {tablet} active Lo sartan Potassium 25 MG eCW1 ([facility]) Levothyroxine Sodium 0.125 MG Oral Tablet Levothyroxin e Sodium 125 MCG Levothyroxine Sodium 125 MCG 04/26/2020 12:00:00 AM EST active Levothyroxine Sodium 125 MCG eCW1 ([facility]) Levothyroxine Sodium 0.125 MG Oral Tablet Levothyroxin e Sodium 125 MCG Levothyroxine Sodium 125 MCG 04/26/2020 12:00:00 AM EST active Levothyroxine Sodium 125 MCG eCW1 ([facility]) Losartan Potassium 25 MG Oral Tablet Losartan Potassium 25 M G 04/26/2020 12:00:00 AM EST 1.0 {tablet} active Lo sartan Potassium 25 MG eCW1 ([facility]) Losartan Potassium 25 MG Oral Tablet Losartan Potassium 25 M G 04/26/2020 12:00:00 AM EST 1.0 {tablet} active Lo sartan Potassium 25 MG eCW1 ([facility]) Losartan Potassium 25 MG Oral Tablet Losartan Potassium 25 M G 04/26/2020 12:00:00 AM EST 1.0 {tablet} active Lo sartan Potassium 25 MG eCW1 ([facility]) Losartan Potassium 25 MG Oral Tablet Losartan Potassium 25 M G 04/26/2020 12:00:00 AM EST 1.0 {tablet} active Lo sartan Potassium 25 MG eCW1 ([facility]) Losartan Potassium 25 MG Oral Tablet Losartan Potassium 25 M G 04/26/2020 12:00:00 AM EST 1.0 {tablet} active Lo sartan Potassium 25 MG eCW1 ([facility]) Losartan Potassium 25 MG Oral Tablet Losartan Potassium 25 M G 04/26/2020 12:00:00 AM EST 1.0 {tablet} active Lo sartan Potassium 25 MG eCW1 ([facility]) Losartan Potassium 25 MG Oral Tablet Losartan Potassium 25 M G 04/26/2020 12:00:00 AM EST 1.0 {tablet} active Lo sartan Potassium 25 MG eCW1 ([facility]) Losartan Potassium 25 MG Oral Tablet Losartan Potassium 25 M G 04/26/2020 12:00:00 AM EST 1.0 {tablet} active Lo sartan Potassium 25 MG eCW1 ([facility]) Losartan Potassium 25 MG Oral Tablet Losartan Potassium 25 M G 04/26/2020 12:00:00 AM EST 1.0 {tablet} active Lo sartan Potassium 25 MG eCW1 ([facility]) Levothyroxine Sodium 0.125 MG Oral Tablet Levothyroxin e Sodium 125 MCG Levothyroxine Sodium 125 MCG 04/26/2020 12:00:00 AM EST active Levothyroxine Sodium 125 MCG eCW1 ([facility]) Losartan Potassium 25 MG Oral Tablet Losartan Potassium 25 M G 04/26/2020 12:00:00 AM EST 1.0 {tablet} active Lo sartan Potassium 25 MG eCW1 ([facility]) Losartan Potassium 25 MG Oral Tablet Losartan Potassium 25 M G 04/26/2020 12:00:00 AM EST 1.0 {tablet} active Lo sartan Potassium 25 MG eCW1 ([facility]) Losartan Potassium 25 MG Oral Tablet Losartan Potassium 25 M G 04/26/2020 12:00:00 AM EST 1.0 {tablet} active Lo sartan Potassium 25 MG eCW1 ([facility]) Losartan Potassium 25 MG Oral Tablet Losartan Potassium 25 M G 04/26/2020 12:00:00 AM EST 1.0 {tablet} active Lo sartan Potassium 25 MG eCW1 ([facility]) Levothyroxine Sodium 0.125 MG Oral Tablet Levothyroxin e Sodium 125 MCG Levothyroxine Sodium 125 MCG 04/26/2020 12:00:00 AM EST active Levothyroxine Sodium 125 MCG eCW1 ([facility]) Losartan Potassium 25 MG Oral Tablet Losartan Potassium 25 M G 04/26/2020 12:00:00 AM EST 1.0 {tablet} active Lo sartan Potassium 25 MG eCW1 ([facility]) Losartan Potassium 25 MG Oral Tablet Losartan Potassium 25 M G 04/26/2020 12:00:00 AM EST 1.0 {tablet} active Lo sartan Potassium 25 MG eCW1 ([facility]) Losartan Potassium 25 MG Oral Tablet Losartan Potassium 25 M G 04/26/2020 12:00:00 AM EST 1.0 {tablet} active Lo sartan Potassium 25 MG eCW1 ([facility]) Levothyroxine Sodium 0.125 MG Oral Tablet Levothyroxin e Sodium 125 MCG Levothyroxine Sodium 125 MCG 04/26/2020 12:00:00 AM EST active Levothyroxine Sodium 125 MCG eCW1 ([facility]) Losartan Potassium 25 MG Oral Tablet Losartan Potassium 25 M G 04/26/2020 12:00:00 AM EST 1.0 {tablet} active eCW1 ([facility]) Losartan Potassium 25 MG Oral Tablet Losartan Potassium 25 M G 04/26/2020 12:00:00 AM EST 1.0 {tablet} active Lo sartan Potassium 25 MG eCW1 ([facility]) besifloxacin 6 MG/ML Ophthalmic Suspensi on [Besivance] Besivance 0.6% Ophthalmic Suspension Besivance 0.6% Ophthalmic Suspension 04/20/2020 12:00:00 AM EST aborted besifloxacin 6 MG/ML Ophthalmic Suspension [Besivance] RODDY ([facility]) doxycycline hyclate 20 MG Oral Tablet Doxycycline Hycl ate 20 MG Oral Tablet Doxycycline Hyclate 20 MG Oral Tablet 04/02/2020 12:00:00 AM EST 1 aborted doxycycline hyclate 20 MG Oral T timt RODDY ([facility]) Levothyroxine Sodium 0.112 MG Oral Table t Levothyroxine Sodium 112 MCG Oral Tablet Levothyroxine Sodium 112 MCG Oral Tablet 04/02/2020 12:00:00 AM EST 1 active levothyroxine sodium 0.112 MG Oral Tablet RODDY ([facility]) moxifloxacin 5 MG/ML Ophthalmic Solution Moxifloxacin HCl 0.5% Ophthalmic Solution Moxifloxacin HCl 0.5% Ophthalmic Solution 03/29/2020 12:00:00 AM EST aborted moxifloxacin 5 MG/ML Oph thalmic Solution RODDY ([facility]) Erythromycin 0.005 MG/MG Ophthalmic Oint ment Erythromycin 5 MG/GM Ophthalmic Ointment Erythromycin 5 MG/GM Ophthalmic Ointment 03/16/2020 12:00:00 AM EST aborted erythromycin 0.005 MG/MG Ophthalmic Ointment RODDY ([facility]) moxifloxacin 5 MG/ML Ophthalmic Solution Moxifloxacin HCl 0.5% Ophthalmic Solution Moxifloxacin HCl 0.5% Ophthalmic Solution 03/12/2020 12:00:00 AM EST aborted moxifloxacin 5 MG/ML Oph thalmic Solution RODDY ([facility]) Polymyxin B 12388 UNT/ML / Trimethoprim 1 MG/ML Ophthalmic Solution [Polytrim] Polytrim 09456-1.1 UNIT/ML-% Ophthalmic Solution Polytrim 77601-9.1 UNIT/ML-% Ophthalmic Solution 03/12/2020 12:00:00 AM [place] 6[address] UNT/ML / trimethoprim 1 MG/ML Ophthalmic Solution [Polytrim] RODDY (Reilly Hebert MD [facility]) Levothyroxine Sodium 0.112 MG Oral Tablet Levothyroxin e Sodium 112 MCG Levothyroxine Sodium 112 MCG 03/08/2020 12:00:00 AM EST active Levothyroxine Sodium 112 MCG eCW1 ([facility]) Levothyroxine Sodium 0.112 MG Oral Tablet Levothyroxin e Sodium 112 MCG Levothyroxine Sodium 112 MCG 03/08/2020 12:00:00 AM EST active Levothyroxine Sodium 112 MCG eCW1 ([facility]) Levothyroxine Sodium 0.112 MG Oral Tablet Levothyroxin e Sodium 112 MCG Levothyroxine Sodium 112 MCG 03/08/2020 12:00:00 AM EST active Levothyroxine Sodium 112 MCG eCW1 ([facility]) Levothyroxine Sodium 0.112 MG Oral Tablet Levothyroxin e Sodium 112 MCG Levothyroxine Sodium 112 MCG 03/08/2020 12:00:00 AM EST active Levothyroxine Sodium 112 MCG eCW1 ([facility]) Levothyroxine Sodium 0.112 MG Oral Tablet Levothyroxin e Sodium 112 MCG Levothyroxine Sodium 112 MCG 03/08/2020 12:00:00 AM EST active Levothyroxine Sodium 112 MCG eCW1 ([facility]) apixaban 5 MG Oral Tablet Apixaban (ELIQUIS) 5 MG TABS tablet Apixaban (ELIQUIS) 5 MG TABS tablet 03/04/2020 12:00:00 AM EST 5 mg Oral active Persistent atrial fibrillation Take 1 tablet (5 mg total) by mouth 2 (t wo) times a day [facility] Persistent atrial fibrillation Metoprolol Tartrate 100 MG Oral Tablet m etoprolol tartrate (LOPRESSOR) 100 MG tablet metoprolol tartrate (LOPRESSOR) 100 MG tablet 03/04/2020 12: 00:00 AM EST 150 mg Oral active Persistent atrial fibrillation Take 1.5 tablets (150 mg total) by mouth 2 (two) times a day [facility] Persistent atrial fibrillation Dexamethasone 1 MG/ML / Tobramycin 3 MG/ ML Ophthalmic Suspension [Tobradex] TobraDex 0.3-0.1% Ophthalmic Suspension TobraDex 0.3-0.1% Ophthalmic Suspension 02/11/2020 12:00:00 AM EDT aborted dexamethasone 1 MG/ML / tobramycin 3 MG/ML Ophthalmic Suspension [Tobradex] RODDY (Reilly Hebert MD [facility]) Spironolactone 25 MG Oral Tablet spironolactone (ALDAC TONE) 25 MG tablet spironolactone (ALDACTONE) 25 MG tablet 01/12/2020 12:00:00 AM EDT 12.5 mg Oral active Take 0.5 tablets (12 .5 mg total) by mouth daily [facility] Furosemide 20 MG Oral Tablet furosemide (LASIX) 20 MG tablet furosemide (LASIX) 20 MG tablet 12/30/2019 12:00:00 AM EDT 20 mg Oral abort ed Take 1 tablet (20 mg total) by mouth daily [facility] Erythromycin 0.005 MG/MG Ophthalmic Oint ment Erythromycin 5 MG/GM Ophthalmic Ointment Erythromycin 5 MG/GM Ophthalmic Ointment 10/01/2019 12:00:00 AM EDT aborted erythromycin 0.005 MG/MG Ophthalmic Ointment RODDY (Reilly Hebert MD [facility]) Dexamethasone 1 MG/ML / Tobramycin 3 MG/ ML Ophthalmic Suspension [Tobradex] TobraDex 0.3-0.1% Ophthalmic Suspension TobraDex 0.3-0.1% Ophthalmic Suspension 10/01/2019 12:00:00 AM EDT aborted dexamethasone 1 MG/ML / tobramycin 3 MG/ML Ophthalmic Suspension [Tobradex] RODDY (Reilly Hebert MD [facility]) fluticasone (FLONASE) 50 MCG/ACT nasal spray [id number] 06/03/2019 12:00:00 AM EST aborted as needed [facility] Potassium Chloride 20 MEQ Extended Relea se Oral Tablet Potassium Chloride ER 20 MEQ TBCR Potassium Chloride ER 20 MEQ TBCR 05/26/2019 12:00:00 AM EST 1 {tbl} Oral aborted Take 1 tablet by kimberlee th daily [facility] Levothyroxine 0.137MG Oral Tablet Levothyroxine 0.137MG Oral Tablet 12/03/2018 12:00:00 AM EDT 1 aborted Levothy roxine RODDY (Reilly Hebert MD [facility]) Metoprolol Tartrate 100 MG Oral Tablet Metoprolol Tart rate 100MG Oral Tablet Metoprolol Tartrate 100MG Oral Tablet 04/24/2018 12:00:00 AM EST 1 aborted metoprolol tartrate 100 MG Oral Tablet RODDY (Reilly Hebert MD [facility]) Chlorthalidone 25 MG Oral Tablet chlorthalidone (HYGRO TEN) 25 MG tablet chlorthalidone (HYGROTEN) 25 MG tablet 25 mg Oral aborted Take 25 mg by mouth daily [facility] Bisoprolol Fumarate 10 MG Oral Tablet bisoprolol (ZEBE TA) 10 MG tablet bisoprolol (ZEBETA) 10 MG tablet 10 mg Oral abort ed Take 10 mg by mouth daily [facility] Bisoprolol Fumarate 10 MG / Hydrochlorot hiazide 6.25 MG Oral Tablet bisoprolol- hydrochlorothiazide (ZIAC) 10-6.25 MG per tablet bisoprolol-hydrochlorothiazide (ZIAC) 10-6.25 MG per tablet 1 {tbl} Oral aborted Take 1 tablet by mouth daily [facility] Levothyroxine Sodium 0.1 MG Oral Tablet levothyroxine (SYNTHROID, LEVOTHROID) 100 MCG tablet levothyroxine (SYNTHROID, LEVOTHROID) 100 MCG tablet 100 ug Oral aborted Take 100 mcg by mout h daily [facility] Hydrochlorothiazide 25 MG Oral Tablet hy drochlorothiazide (HYDRODIURIL) 25 MG tablet hydrochlorothiazide (HYDRODIURIL) 25 MG tablet 25 mg O ral aborted Take 25 mg by mouth daily [facility] Insurance Providers Payer name Policy type / Coverage type Policy ID Covered republican ID Covered republican's relationship to casarez Policy Casarez Plan Information [employer] [employer] () Workers Compensation [id number] 2.16.840.1.376863.3.227.99.991.70109.0 Self D [id number] [employer] () Workers Compensation [id number] 2.16.840.1.317998.3.227.99.991.74504.0 Self D [id number] [employer] [employer] () Workers Compensation [id number] 2.16.840.1.232344.3.227.99.991.91863.0 Self D [id number] [employer] () Workers Compensation [id number] 2.16.840.1.875201.3.227.99.991.44526.0 Self D [id number] [employer] () Workers Compensation [id number] 2.16.840.1.709241.3.227.99.991.74295.0 Self D [id number] [employer] () Workers Compensation [id number].[id number] Self [id number] [place] [employer] [facility] Workers Compensation [id number] Self [id number] [place] [employer] [facility] Workers Compensation [id number] 2.16.840.1.506804.3.227.99.991.21218.0 Self D [id number] [facility] ([facility] Workers Compensation [id number] 2.16.840.1.904087.3.227.99.991.40520.0 Self [id number] [employer] ([facility] Workers Compensation [id number].[id number] Self [id number] MVP (pr) Commercial [id number] 2.16.840.1.378532.3.227.99.9 91.93925.0 Family Dependent [id number] MVP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 06/15/2020 12:00:00 AM EST [facility] ([facility]) H54.7 [id number] Visual loss Problem 04/19/2020 12:00:[address] eCW1 ([facility]) 371.02 Corneal Opacity Corneal Opacity Problem 04/08/2020 12:0 0:00 AM EST [facility] ([facility]) 371.02 Corneal Opacity Corneal Opacity Problem 04/08/2020 12:0 0:00 AM EST [facility] ([facility]) 371.02 Corneal Opacity Corneal Opacity Problem 04/08/2020 12:0 0:00 AM EST [facility] ([facility]) 371.02 Corneal Opacity Corneal Opacity Problem 04/08/2020 12:0 0:00 AM EST [facility] ([facility]) 371.02 Corneal Opacity Corneal Opacity Problem 04/08/2020 12:0 0:00 AM EST [facility] ([facility]) 371.02 Corneal Opacity Corneal Opacity Problem 04/08/2020 12:0 0:00 AM EST [facility] ([facility]) 371.02 Corneal Opacity Corneal Opacity Problem 04/08/2020 12:0 0:00 AM EST [facility] ([facility]) 371.02 Corneal Opacity Corneal Opacity Problem 04/08/2020 12:0 0:00 AM EST [facility] ([facility]) 371.02 Corneal Opacity Corneal Opacity Problem 04/08/2020 12:0 0:00 AM EST [facility] ([facility]) 54939351 Dry Eye Syndrome Right Eye Dry Eye Syndrome Right Eye Problem 01/02/2020 12:00:00 AM EDT [facility] ([facility]) 93491287 Dry Eye Syndrome Right Eye Dry Eye Syndrome Right Eye Problem 01/02/2020 12:00:00 AM EDT [facility] ([facility]) 59274296 Dry Eye Syndrome Right Eye Dry Eye Syndrome Right Eye Problem 01/02/2020 12:00:00 AM EDT [facility] ([facility]) 37792910 Dry Eye Syndrome Right Eye Dry Eye Syndrome Right Eye Problem 01/02/2020 12:00:00 AM EDT [facility] ([facility]) 29764203 Dry Eye Syndrome Right Eye Dry Eye Syndrome Right Eye Problem 01/02/2020 12:00:00 AM EDT [facility] ([facility]) 16577874 Dry Eye Syndrome Right Eye Dry Eye Syndrome Right Eye Problem 01/02/2020 12:00:00 AM EDT [facility] ([facility]) 31208867 Dry Eye Syndrome Right Eye Dry Eye Syndrome Right Eye Problem 01/02/2020 12:00:00 AM EDT [facility] ([facility]) 08445216 Dry Eye Syndrome Right Eye Dry Eye Syndrome Right Eye Problem 01/02/2020 12:00:00 AM EDT [facility] ([facility]) 95673461 Dry Eye Syndrome Right Eye Dry Eye Syndrome Right Eye Problem 01/02/2020 12:00:00 AM EDT [facility] ([facility]) 09090282 Dry Eye Syndrome Right Eye Dry Eye Syndrome Right Eye Problem 01/02/2020 12:00:00 AM EDT [facility] ([facility]) 49730465 Dry Eye Syndrome Right Eye Dry Eye Syndrome Right Eye Problem 01/02/2020 12:00:00 AM EDT [facility] ([facility]) 08243134 Dry Eye Syndrome Right Eye Dry Eye Syndrome Right Eye Problem 01/02/2020 12:00:00 AM EDT [facility] ([facility]) 34121907 Dry Eye Syndrome Right Eye Dry Eye Syndrome Right Eye Problem 01/02/2020 12:00:00 AM EDT [facility] ([facility]) 59859645 Dry Eye Syndrome Right Eye Dry Eye Syndrome Right Eye Problem 01/02/2020 12:00:00 AM EDT [facility] ([facility]) 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 C orneal Degeneration Recurrent Erosion Problem 04/30/2018 12:00:00 AM EST - 06/15/2020 12:00:00 AM EST [facility] ([facility]) 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 C orneal Degeneration Recurrent Erosion Problem 04/30/2018 12:00:00 AM EST - 06/15/2020 12:00:00 AM EST [facility] ([facility]) 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 C orneal Degeneration Recurrent Erosion Problem 04/30/2018 12:00:00 AM EST - 06/15/2020 12:00:00 AM EST [facility] ([facility]) 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 C orneal Degeneration Recurrent Erosion Problem 04/30/2018 12:00:00 AM EST - 06/15/2020 12:00:00 AM EST [facility] ([facility]) 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 C orneal Degeneration Recurrent Erosion Problem 04/30/2018 12:00:00 AM EST - 06/15/2020 12:00:00 AM EST [facility] ([facility]) 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 C orneal Degeneration Recurrent Erosion Problem 04/30/2018 12:00:00 AM EST - 06/15/2020 12:00:00 AM EST [facility] ([facility]) 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 C orneal Degeneration Recurrent Erosion Problem 04/30/2018 12:00:00 AM EST - 06/15/2020 12:00:00 AM EST [facility] ([facility]) Surgeries/Procedures Procedure Description Date Indications Data Source(s) Electrocardiogram Complete 01/06/2021 12:00:00 AM EDT [facility] ([facility]) OFFICE OUTPATIENT NEW 60 MINUTES 01/06/2021 12:00:00 A M EDT [facility] ([facility]) BLOOD COUNT COMPLETE AUTO&AUTO DIFRNTL WBC COUNT <td>C BC AND DIFFERENTIAL</td><td>Routine</td><td>01/03/2021</td><td></td><td> </td> 01/03/2021 12:00:00 AM EDT [facility] HEPATIC FUNCTION PANEL <td>HEPATIC FUNCTION PANEL</td><td>Routine</td><td>01/03/2021</td><td></td><td> </td> 01/03/2021 12:00:00 AM EDT [facility] BASIC METABOLIC PANEL CALCIUM TOTAL <td>BASIC METABOLI C PANEL</td><td>Routine</td><td>01/03/2021</td><td></td><td> </td> 01/03/2021 12:00:00 AM EDT [facility] OFFICE OUTPATIENT VISIT 10 MINUTES 12/06/2020 12:00:00 AM EDT [facility] ([facility], ) POCT AMB EKG <td>POCT AMB EKG</td><td>Rou gt</td><td>11/11/2020 3:54 PM EDT</td><td> Paroxysmal atrial fibrillation</td><td> </td> 11/11/2020 03:54:00 PM EDT Paroxysmal atrial fibrillation [facility] Paroxysmal atrial fibrillation OFFICE OUTPATIENT VISIT 40 MINUTES 11/09/2020 12:00:00 AM EDT [facility] ([facility]) OFFICE OUTPATIENT VISIT 25 MINUTES 11/09/2020 12:00:00 AM EDT [facility] ([facility]) Endoscopy Nasal Diagnostic 11/08/2020 12:00:00 AM EDT [facility] ([facility], ) OFFICE OUTPATIENT VISIT 10 MINUTES 11/08/2020 12:00:00 AM EDT [facility] ([facility]) INJECTION 1 TENDON SHEATH/LIGAMENT APONEUROSIS 021 12:00:00 AM EDT [facility] ([facility]) OFFICE OUTPATIENT VISIT 25 MINUTES 10/22/2020 12:00:00 AM EDT [facility] ([facility]) OFFICE OUTPATIENT VISIT 5 MINUTES 10/18/2020 12:00:00 AM EDT [facility] ([facility]) ECG ROUTINE ECG W/LEAST 12 LDS W/I&R <td>POCT AMB EKG</td><td>Routine</td><td>10/14/2020 3:28 PM EDT</td><td> Paroxysmal atrial fibrillation</td><td> </td> 10/14/2020 03:28:00 PM EDT Paroxysmal atrial fibrillation [facility] Paroxysmal atrial fibrillation ECG ROUTINE ECG W/LEAST 12 LDS W/I&R <td>POCT AMB EKG</td><td>Routine</td><td>10/11/2020 4:42 PM EDT</td><td> Paroxysmal atrial fibrillation</td><td> </td> 10/11/2020 04:42:00 PM EDT Paroxysmal atrial fibrillation [facility] Paroxysmal atrial fibrillation Spirometry 10/07/2020 12:00:00 AM EDT [facility] ([facility], ) OFFICE OUTPATIENT VISIT 25 MINUTES 10/07/2020 12:00:00 [facility] ECG ROUTINE ECG W/LEAST 12 LDS W/I&R <td>POCT AMB EKG</td><td>Routine</td><td>10/05/2020 12:33 PM EDT</td><td> Paroxysmal atrial fibrillation</td><td> </td> 10/05/2020 12:33:00 PM EDT Paroxysmal atrial fibrillation [facility] Paroxysmal atrial fibrillation Endoscopy Nasal Diagnostic 10/05/2020 12:00:00 AM EDT [facility] ([facility], ) OFFICE OUTPATIENT VISIT 10 MINUTES 10/05/2020 12:00:00 AM EDT [facility] ([facility], ) HEPATIC FUNCTION PANEL <td>HEPATIC FUNCTION PANEL</td><td>Routine</td><td>09/23/2020</td><td></td><td> </td> 09/23/2020 12:00:00 AM EDT [facility] BASIC METABOLIC PANEL CALCIUM TOTAL <td>BASIC METABOLI C PANEL</td><td>Routine</td><td>09/23/2020</td><td></td><td> </td> 09/23/2020 12:00:00 AM EDT [facility] TROPONIN QUANTITATIVE <td>TROPONIN I</td><td>Routine</td><td>09/22/2020</td><td></td><td> </td> 09/22/2020 12:00:00 AM EDT [facility] TROPONIN QUANTITATIVE <td>TROPONIN I</td><td>Routine</td><td>09/22/2020</td><td></td><td> </td> 09/22/2020 12:00:00 AM EDT [facility] BLOOD COUNT COMPLETE AUTO&AUTO DIFRNTL WBC COUNT <td>C BC AND DIFFERENTIAL</td><td>Routine</td><td>09/22/2020</td><td></td><td> </td> 09/22/2020 12:00:00 AM EDT [facility] DRUG SCREEN QUALITATIVE DIGOXIN <td>DIGOXIN LEVEL</td><td>Routine</td><td>09/22/2020</td><td></td><td> </td> 09/22/2020 12:00:00 AM T [facility] HEPATIC FUNCTION PANEL <td>HEPATIC FUNCTION PANEL</td><td>Routine</td><td>09/22/2020</td><td></td><td> </td> 09/22/2020 12:00:00 AM EDT [facility] BASIC METABOLIC PANEL CALCIUM TOTAL <td>BASIC METABOLI C PANEL</td><td>Routine</td><td>09/22/2020</td><td></td><td> </td> 09/22/2020 12:00:00 AM EDT [facility] BASIC METABOLIC PANEL CALCIUM TOTAL <td>BASIC METABOLI C PANEL</td><td>Routine</td><td>09/22/2020</td><td></td><td> </td> 09/22/2020 12:00:00 AM T [facility] Surgical / procedural history Gastropar esis 2018, Gallbladder surgery 2007, Injections right eye by Dr. Hoover every 10 weeks, Endoscopic DCR w/ Dr. Webb on 08/25/20 Surgical / procedural history Gastropar esis 2018, Gallbladder surgery 2008, Injections right eye by Dr. Hoover every 10 weeks, Endoscopic DCR w/ Dr. Webb on 08/25/20 09/15/2020 12:00:00 AM EDT [facility] ([facility]) Intermediate Eye Exam Established Patient Intermediate Eye Exam Established Patient 09/14/2020 12:00:00 AM EDT [facility] ([facility]) Intermediate Eye Exam Established Patient Intermediate Eye Exam Established Patient 09/14/2020 12:00:00 AM EDT [facility] ([facility]) OFFICE OUTPATIENT VISIT 15 MINUTES 09/09/2020 12:00:00 AM EDT [facility] ([facility], ) Surgical / procedural history Gastropar esis 2018, CHF 2016, Gallbladder surgery 2008, Injections right eye by Dr. Hoover every 10 weeks, Endoscopic DCR w/ Dr. Webb on 08/25/20 Surgical / procedural history Gastropar esis 2018, CHF 2016, Gallbladder surgery 2007, Injections right eye by Dr. Hoover every 10 weeks, Endoscopic DCR w/ Dr. Webb on 08/25/20 09/02/2020 12:00:00 AM EDT [facility] ([facility]) Intermediate Eye Exam Established Patient Intermediate Eye Exam Established Patient 09/02/2020 12:00:00 AM EDT [facility] ([facility]) NASAL/SINUS NDSC SURG W/DACRYOCSTORHINOSTOMY 12:00:00 AM EDT [facility] ([facility], ) OFFICE OUTPATIENT VISIT 15 MINUTES 08/19/2020 12:00:00 AM EDT [facility] ([facility], ) ECG ROUTINE ECG W/LEAST 12 LDS W/I&R <td>POCT AMB EKG</td><td>Routine</td><td>08/17/2020 9:21 AM EDT</td><td> Preoperative cardiovascular examination</td><td> </td> 08/17/2020 09:21:00 AM EDT Preoperative cardiovascular examination [facility] Preoperative cardiovascular examination OFFICE OUTPATIENT VISIT 25 MINUTES 08/03/2020 12:00:00 AM EDT [facility] ([facility]) OFFICE OUTPATIENT VISIT 15 MINUTES 07/19/2020 12:00:00 AM EDT [facility] ([facility]) PROBE LACRIMAL CANALICULI W/WO IRRIGATION PROBING LACR IMAL CANALICULI W OR W/O IRRIGATION (Right Side) 07/16/2020 12:00:00 AM EDT [facility] ([facility]) Surgical / procedural history Gastropar esis 2018, CHF 2016, Gallbladder surgery 2008, Injections right eye by Dr. Hoover Surgical / procedural history Gastroparesis 2018, CHF 2016, Gallbladder surgery 2008, Injections right eye by Dr. Hoover 07/16/2020 12:00:00 AM EDT [facility] ([facility]) PROBE LACRIMAL CANALICULI W/WO IRRIGATION PROBING LACR IMAL CANALICULI W OR W/O IRRIGATION (RT) 07/16/2020 12:00:00 AM EDT [facility] ([facility]) OFFICE OUTPATIENT VISIT 15 MINUTES 07/12/2020 12:00:00 AM EDT [facility] ([facility]) OFFICE OUTPATIENT VISIT 15 MINUTES 07/09/2020 12:00:00 AM EDT [facility] ([facility]) Intermediate Eye Exam Established Patient Intermediate Eye Exam Established Patient 06/15/2020 12:00:00 AM EST [facility] ([facility]) Surgical / procedural history Gastropar esis 2018, CHF 2016, Gallbladder surgery 2008, Injections right eye by Dr. Hoover every 10 weeks Surgical / procedural history Gastroparesis 2018, CHF 2016, Gallbladder surgery 2008, Injections right eye by Dr. Hoover every 10 weeks 06/15/2020 12:00:00 AM EST [facility] ([facility]) Intermediate Eye Exam Established Patient Intermediate Eye Exam Established Patient 06/15/2020 12:00:00 AM EST [facility] ([facility]) Intermediate Eye Exam Established Patient Intermediate Eye Exam Established Patient 05/13/2020 12:00:00 AM EST [facility] ([facility]) Surgical / procedural history Gastropar esis 2018, CHF 2016, Gallbladder surgery 2008, Injections right eye by Dr. Hoover every 10 weeks Surgical / procedural history Gastroparesis 2018, CHF 2016, Gallbladder surgery 2008, Injections right eye by Dr. Hoover every 10 weeks 05/13/2020 12:00:00 AM EST [facility] ([facility]) Intermediate Eye Exam Established Patient Intermediate Eye Exam Established Patient 04/28/2020 12:00:00 AM EST [facility] ([facility]) Intermediate Eye Exam Established Patient Intermediate Eye Exam Established Patient 04/20/2020 12:00:00 AM EST [facility] ([facility]) Intermediate Eye Exam Established Patient Intermediate Eye Exam Established Patient 04/08/2020 12:00:00 AM EST [facility] ([facility]) Intermediate Eye Exam Established Patient Intermediate Eye Exam Established Patient 04/08/2020 12:00:00 AM EST [facility] ([facility]) Intermediate Eye Exam Established Patient Intermediate Eye Exam Established Patient 04/02/2020 12:00:00 AM EST [facility] ([facility]) Intermediate Eye Exam Established Patient Intermediate Eye Exam Established Patient 04/02/2020 12:00:00 AM EST [facility] ([facility]) Intermediate Eye Exam Established Patient Intermediate Eye Exam Established Patient 03/23/2020 12:00:00 AM EST [facility] ([facility]) Intermediate Eye Exam Established Patient Intermediate Eye Exam Established Patient 03/23/2020 12:00:00 AM EST [facility] ([facility]urali Hebert MD [facility]) Intermediate Eye Exam Established Patient Intermediate Eye Exam Established Patient 03/16/2020 12:00:00 AM EST RODDY (Murali Hebert MD [facility]) Intermediate Eye Exam Established Patient Intermediate Eye Exam Established Patient 03/12/2020 12:00:00 AM EST RODDY (Murali Hebret MD [facility]) Surgical / procedural history [facility] er surgery 2007, 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 Torres 11/21/2019, Injections by [facility], Proliferative diabetic retinopathy laser 03/12/2020 12:00:00 AM EST RODDY (Reilly Hebert MD [facility]) Intermediate Eye Exam Established Patient Intermediate Eye Exam Established Patient 03/12/2020 12:00:00 AM EST RODDY (Murali Hebert MD [facility]) INJECTION 1 TENDON SHEATH/LIGAMENT APONEUROSIS 020 12:00:00 AM EST MEDENT ([facility]) RADEX HAND MINIMUM 3 VIEWS 03/01/2020 12:00:00 AM EST MEDENT ([facility]) Intermediate Eye Exam Established Patient Intermediate Eye Exam Established Patient 02/11/2020 12:00:00 AM EDT RODDY (Murali Hebert MD [facility]) Intermediate Eye Exam Established Patient Intermediate Eye Exam Established Patient 02/11/2020 12:00:00 AM EDT RODDY (Murali Hebert MD [facility]) Diabetic Foot Exam 02/10/2020 12:00:00 AM EDT MEDENT ([facility]) Immunization: Flublok Quadrivalent (18 years & older) 0.5mL IM (Influenza) 01/22/2020 12:00:00 AM EDT eCW1 ([facility]) Intermediate Eye Exam Established Patient Intermediate Eye Exam Established Patient 01/02/2020 12:00:00 AM EDT RODDY (Murali Hebert MD [facility]) Cataract surgery (procedure) History of cataract surgery -b oth eyes 201201/02/2020 12:00:00 AM EDT RODDY (Reilly cornell MD [facility]) Surgical / procedural history Gallbladd er surgery 2007, Removal conjunctival concretion right lower eyelid by Dr. Torres 11/21/2019 Surgical / procedural history Gallbladder surgery 2007, Removal conjunctival concretion right lower eyelid by Dr. Torres 11/21/2019 01/02/2020 12:00:00 AM EDT RODDY (Reilly Hebert MD [facility]) Intermediate Eye Exam Established Patient Intermediate Eye Exam Established Patient 01/02/2020 12:00:00 AM EDT RODDY (Murali Hebert MD [facility]) Results ID Date Data Source [id number] 01/31/2021 11:23:00 AM EDT [facility] CT A NGIO CHESTCLINICAL HISTORY: Paroxysmal atrial fibrillation. Preablation study.COMPARISON: CT chest November 02, 2016TECHNIQUE: Helical acquired CTA images were obtained. Multiplanar reconstructions were performed. This study was reviewed on a 3D workstation. 70cc of 100cc Isovue 370 were injected intravenously.FINDINGS: Pulmonary vein measurements are as follows:Right superior pulmonary vein:19 x 19mmRight intravenous saddle: None significantmmRight inferior pulmonary vein: 18 x 17mmLeft superior pulmonary vein: 19 x 21mmLeft intravenous saddle: None signifi cant 16 x 20mmLeft inferior pulmonary vein: mmAncillary findings: There are no filling defects within the left atrium. No significant hilar or mediastinal adenopathy. There is no pleural or pericardial effusion.The central pulmonary arteries are normal in size and patent. The thoracic aorta is normal in caliber.There is fairly extensive coronary arterial calcification throughout. Dual chamber cardiac pacemaker in satisfactory position.There are a few scattered areas of ground-glass opacity within the lung [place]. This is most prominent in the lingula. Multiple ill-defined areas are present in the right upper lobe. There are also a few areas identified within the lower lobes bilaterally.IMPRESSION: Pulmonary venous anatomy for pre ablation planning as above.Multiple areas of ground-glass opacity are identified within the lung [place] which were not present in 2017. These may represent areas of acute inflammation, non solid ground-glass nodules or chronic change. It should be noted that COVID-19 pneumonia may appear in this mass. Therefore this patient should be evaluated for COVID-19.Assuming this is negative, a follow-up CT of the chest in 6 months is recommended to document resolution. Typically ground- glass nodule should be followed for a total of 5 years to confirm benignity.Critical result report.Dictated by: CHARLES LEON M.D. on 01/31/2021lectronically Signed by: CHARLES LEON M.D. on 01/31/2021 11:51 AMTranscribed by: janis on 01/31/2021 11:51 AMCDS G code: , ,CDS Modifier: , ,cc: Name Value Range Interpretation Code Description Data Kathleen rce(s) Supporting Document(s) ID Date Data Source [id number] 01/03/2021 11:02:00 AM EDT [facility] Name Value Range Interpretation Code Description Data Kathleen rce(s) Supporting Document(s) SARS COVID ANTIGEN NEGATIVE [facility] This lab was ordered by RONAN maxwell nd reported by [facility]. ID Date Data Source Basic Metabolic Profile (BMP) 01/03/2021 12:00:00 AM EDT eCW 1 ([facility]) Name Value Range Interpretation Code Description Data Kathleen rce(s) Supporting Document(s) 282 70-100 GLUCOSE, FASTING eCW1 ([facility]) 22 7-18 BLOOD UREA NITROGEN eCW1 ([facility]) 46.9 >39 GLOMERULAR FILTRATION RATE eCW 1 ([facility]) 1.20 0.55-1.30 CREATININE FOR GFR eCW1 ([facility]) 138 136-145 SODIUM LEVEL eCW1 ([facility]) 4.4 3.5-5.1 POTASSIUM SERUM eCW1 ([facility]) 105 98-107 CHLORIDE LEVEL eCW1 ([facility]) 28 21-32 CARBON DIOXIDE LEVEL eCW1 ([facility]) 9.0 8.8-10.2 CALCIUM LEVEL eCW1 ([facility]) ID Date Data Source CBC with Differential 01/03/2021 12:00:00 AM EDT eCW1 ([facility]) Name Value Range Interpretation Code Description Data Kathleen rce(s) Supporting Document(s) 13.1 12.0-15.5 HEMOGLOBIN [facility] 12.2 4.0-10.0 WHITE BLOOD COUNT eCW1 ([facility]) 4.31 4.00-5.40 RED BLOOD COUNT eCW1 ([facility]) 30.4 27.0-33.0 MEAN CORPUSCULAR HEMOGLOB IN eCW1 ([facility]) 39.7 36.0-47.0 HEMATOCRIT eCW1 [facility] 92.1 80.0-96.0 MEAN CORPUSCULAR VOLUME e CW1 ([facility]) 51.3 36.0-66.0 NEUTROPHILS % eCW1 ([facility]) 14.2 11.5-14.5 RED CELL DISTRIBUTION WID TH eCW1 ([facility]) 33.0 32.0-36.5 MEAN CORPUSCULAR HGB CONC eCW1 ([facility]) 263 150-450 PLATELET COUNT, AUTOMATED eCW1 ([facility]) 36.7 24.0-44.0 LYMPH % eCW1 ([facility]) 8.1 2.0-8.0 MONO % eCW1 ([facility]) 4.5 1.5-5.0 LYMPH # eCW1 ([facility]) 2.8 0.0-3.0 EOS % eCW1 ([facility]) 0.6 0.0-1.0 BASO % eCW1 ([facility]) 6.3 1.5-8.5 NEUTROPHILS # eCW1 ([facility]) 0.3 0.0-0.5 EOS # eCW1 ([facility]) 0.1 0.0-0.2 BASO # eCW1 ([facility]) 1.0 0.0-0.8 MONO # eCW1 ([facility]) ID Date Data Source NT-PRO BNP 01/03/2021 12:00:00 AM EDT eCW1 ([facility]) Name Value Range Interpretation Code Description Data Kathleen rce(s) Supporting Document(s) 1094 <125 NT-PRO BNP [facility] ID Date Data Source WATSON COVID AG (Point of Care) 01/03/2021 12:00:00 AM EDT eC W1 ([facility]) Name Value Range Interpretation Code Description Data Kathleen rce(s) Supporting Document(s) NEGATIVE NEGATIVE [place] COVID ANTIGEN eCW1 ([facility]) ID Date Data Source LIPID PANEL (CARDIAC RISK) 12/20/2020 12:00:00 AM EDT eCW1 ( [facility]) Name Value Range Interpretation Code Description Data Kathleen rce(s) Supporting Document(s) Triglyceride [Mass/volume] in Serum or Plasma by calculation 238 <150 TRIGLYCERIDES LEVEL eCW1 ([facility]) 132 NON-HDL-C eCW1 ([facility]) Cholesterol in LDL [Mass/volume] in Serum or Plasma by calculation 84 <100 LDL CHOLESTEROL eCW1 ([facility]) Cholesterol in HDL [Moles/volume] in Serum or Plasma 36 >40 HDL CHOLESTEROL eCW1 ([facility]) Cholesterol [Moles/volume] in Serum or Plasma 168 <200 CHOLESTEROL LEVEL eCW1 ([facility]) 4.666 <5 CHOLESTEROL RISK RATIO eCW1 ([facility]) ID Date Data Source [id number] 12/09/2020 07:57:00 PM EDT [facility] Name Value Range Interpretation Code Description Data Kathleen rce(s) Supporting Document(s) SARS coronavirus 2 RNA [Presence] in Res piratory specimen by BOLA with probe detection NEGATIVE [facility] This lab was ordered by [facility] a nd reported by [facility]. ID Date Data Source [id number] 11/20/2020 06:55:55 PM EDT [facility] Name Value Range Interpretation Code Description Data Kathleen rce(s) Supporting Document(s) &PDF [facility] SACCNe1cLvUXQmTz90/BEBmbICQaj6MyLVrbJGw8BDqfLCBuP8WwhKpsUGDJZ93WLCoCBkAQPRSVETZD 0b3 [file] AgICAgICAgICAgICAgICAgICAgICAgICAgICAgICAgICAgICAgICAgICAgICANCiAgICAgICAgICAgIC AgICAgICAgICAgICAgICAgICAgICAgICAgICAgICAg ICAgICAgICAgICAgICAgICAgICAgICAgICAgICAgICAgICAgICAgICAgICAgICAgICAgICAgICANCiAg ICAgICAgICAgICAgICAgICAgICAgICAgICAgICAgICAgICAgICAgICAgICAgICAgICAgICAgICAgICAg ICAgICAgICAgICAgICAgICAgICAgICAgICAgICAgIC AgICAgICANCiAgICAgICAgICAgICAgICAgICAgICAgICAgICAgICAgICAgICAgICAgICAgICAgICAgIC AgICAgICAgICAgICAgICAgICAgICAgICAgICAgICAgICAgICAgICAgICAgICAgICANCiAgICAgICAgIC AgICAgICAgICAgICAgICAgICAgICAgICAgICAgICAg ICAgICAgICAgICAgICAgICAgICAgICAgICAgICAgICAgICAgICAgICAgICAgICAgICAgICAgICAgICAN CiAgICAgICAgICAgICAgICAgICAgICAgICAgICAgICAgICAgICAgICAgICAgICAgICAgICAgICAgICAg ICAgICAgICAgICAgICAgICAgICAgICAgICAgICAgIC AgICAgICAgICANCiAgICAgICAgICAgICAgICAgICAgICAgICAgICAgICAgICAgICAgICAgICAgICAgIC AgICAgICAgICAgICAgICAgICAgICAgICAgICAgICAgICAgICAgICAgICAgICAgICAgICANCiAgICAgIC AgICAgICAgICAgICAgICAgICAgICAgICAgICAgICAg ICAgICAgICAgICAgICAgICAgICAgICAgICAgICAgICAgICAgICAgICAgICAgICAgICAgICAgICAgICAg ICANCiAgICAgICAgICAgICAgICAgICAgICAgICAgICAgICAgICAgICAgICAgICAgICAgICAgICAgICAg ICAgICAgICAgICAgICAgICAgICAgICAgICAgICAgIC AgICAgICAgICAgICANCiAgICAgICAgICAgICAgICAgICAgICAgICAgICAgICAgICAgICAgICAgICAgIC AgICAgICAgICAgICAgICAgICAgICAgICAgICAgICAgICAgICAgICAgICAgICAgICAgICAgICANCjw/eH SoR8xwrTHhboK6D1uxYh8JAn0KHZ9he0MoSIJwIYzk faVfStwSSiGhEIIcNguLLke4JHdpMB2VrAXcX8WqP2UkYIjzXW6MFFXnCKFcoDOeNMYuFHRyCtP6AYWm ZOjsJG5MiAByEHltMWQdABEnFuVvLHBvYG8MGWVjF252mhLiZl0LBd8BJbInXF4zqp8XLrTmUWGmEnoJ Ykg3RQooXA9PwWWcQ1EicMHmd9mPSeEjU3JLTTKxCD WoLf5PJSYnHnEaPZOsGWbrNS3wUIPyKQEVsVyebpP6SW9JHD6bejTdZH3ANeLdWx1nEm3KVoHrM3GdW8 VqAIFfMOQXPAgrSP6LKYMlKJA0GMXgJiXnFUYRQnStL02sZX9VP5Ayb79eFeZ7DRCdUvXyWUmzIX64lY gkicGskTByzXffAQ9TDh5+DQplbmRvYmoNCnhyZWYN HcFzLzGFSpCoNIMgDYCmLXOyPgT9TlDfNc9IVFYgDMSnDZNuGqTpRJHoMENwGLfyEBQfNEB2KDH7IHWv LZFjNF7XEdTmCWLdMBr1FTQyMKXqRNTmxq9XJDScUCKzPSX1VTZlBXFbUXTcLGrfEHHlVGGkJTT6YSPz KCNjWH1AIqUuSQIwVVK0IfPsUZSzYMNmtx8CMMOaUU TfSXotMhGyKWLvDTLlBShhTQVaQHA4DIJ1ZTQwOBWfNQ7GXbUhSYVnNPT1THLtOIKkCLXzfb5YCGWeRN XqPsY0PxWrZQMaSVBfWSesUFLwFRM2CeHvHTWrOTSzYW0YYsDzOJTdZXgwKaSuINMjLQAhjh9HBVTdUS WjPwYhBKFxQCMgTUSqABgdEZDyXBU0KrLcNCZwLUQm HN6MDzEsDJQnMNM9YsmkBTOdTQJhfe9ZDUGjUEMaRmk0EGMsFEJwJCUrGThoHFVaTPPzFDn9YGUhDLUp HB6GYwMlEBKkPFBhEcvwZWUrHHWmxw8RGNKkLFWaYmQ0OLLhVOPkGEFoIKnhQGXlEPH3ESO9SCGlSFSl BS5RNbBtZTVwMSD0WMAyNVVsCYZpud5HTCWvBQQuDG e2ZGAeUJPuKUPxVXreKLGxPNQ5YgD2UWKhGAWbLK9VSyTjFYUwNWQ7VDJnXUVoLSMawy1FDJHkVDScTk S7RrWvCHJjONInBAlmPKGeKWO2QBVoQLXpMVNvAA6VBoHwLCKeHVG6WymeTSBaYULnvn5XACZnVJVuIl d0DEHdAQLkOJLcILvaMSNjJCE6BeK0BEWtCHKdYV4B GbUcPCViIVn1VmLvOXSkWZZilr7BIUXrSTDcOpyeErCyMTZoOLWrJPucUAFoCBP8WdXkRHKqDOQpYL6X XlKjFNIkUSi7VTVrWIEbHFBucz6LdEMdaAqons8TFZxGSa4GzKbwVOW1WWrhSo9rjYQwFyEqUPYXQf1W mfSwYERlRLQOGApiHMPwQOD2UzKaOGEcKBV6VaEgKQ B5XTTpLhMyKEV3DpTmHANpZdU2DDAkYHVeO2OmUrnsGXCsZUpoQSN6WqMgFKmhKpYfBQC+JK4tYSq+Pg 4Ft0SrktV6djLfNBvzNCq2Rd4MQYDYG0DTUa== ID Date Data Source [id number] 11/16/2020 08:37:28 AM EDT [facility] Name Value Range Interpretation Code Description Data Kathleen rce(s) Supporting Document(s) FREE THYROXINE @ 1.26 ng/dL (0.76-1.46) [facility] ID Date Data Source [id number] 10/18/2020 07:42:44 AM EDT [facility] Name Value Range Interpretation Code Description Data Kathleen rce(s) Supporting Document(s) &PDF [facility] XAMXLg2hJsTPJdUg00/GSPasIXEwd5KjQYjlNMr9UYiqOMOuW3GyyUpdTKBHK54NUPrMTdRPXMAVVGYE 0b3 QcJHCsQeCUxEU0NC4cCPLzvsNiwsU8jL9zLV2SOQL+Dq6NRO9sq8QmRDw7AKNon2JpGHfvWDu5Y3ErdK IzdiFgTrfyxFGMTUErTYMdC8nwmah2xGUgRKFnLr6UDzKzi6BbSIShXTaBil7skU/cNhL+toZ3YfQGPL ntTzVIqsDDTYj7iTcNaaicpu/ydcrZnwHGgRhm66sL n3W/2IfABiUWhtis9YzT3VPW8UgbkTfXyhU8v4EY//UZc0iWl85uw+nwJR4I1GW0+30IS5wGceX+16QQ uEHyiht/g/6OwK1uhNkVXe/erTudflj58jEbAg1Pgr1l1/PPn3/IOo9tSjk6wTsemTlTXdmVkKTzlxKK VzyQUmXiserBozImNb7vJhmbqTbeBdmdqExxWzsggy [file] J73yFV6QYrSmRr7LUxYqj9QlNRLoOOwRiVDkCJZvFbBKWZXa/5+HxBV++f//plater apprentice+258fLXKcC2R1ZNb+ [file] ICAgICAgICAgICAgICAgICAgICAgICAgICAgICAgICAgICAgICAgICAgICAgICAgICAgICAgICAgICAg IEStAVEqISFkAFLyAXWlDL7OXPXzKGZvEBMsATJaPEHuDSYjXJWyHHYiQPWpCWWxHQTzBZWyTNRrAKSq ICAgICAgICAgICAgICAgICAgICAgICAgICAgICAgIC DdIACpQDNaMGCrRMZdETFfIKXaBGIpUGJwVM0KRKDzTIAqGMWoNIXjIDJrVXVkBNPaZTWqZMFsPSWtSC AgICAgICAgICAgICAgICAgICAgICAgICAgICAgICAgICAgICAgICAgICAgICAgICAgICAgICAgICAgIC GbRCFmRMUmDK0TMNJhJJPjSSWzZQYuUFDlVVHbCGHx ICAgICAgICAgICAgICAgICAgICAgICAgICAgICAgICAgICAgICAgICAgICAgICAgICAgICAgICAgICAg RZNvSXNeEZQqFTEzIHDgFUKpLX4FTNPfZUOcVOPsETInNNZeBGTyDFVfFSMuSAMbEZAlIVLqUFYvHTDv ICAgICAgICAgICAgICAgICAgICAgICAgICAgICAgIC QlULNgZHPhQBVjUWPcSHBvHJIyYZYxMPZmVVXyGE4HJIIyCOIbESTnEDRtCKWzIVHeRLThLNVgLJLrAX AgICAgICAgICAgICAgICAgICAgICAgICAgICAgICAgICAgICAgICAgICAgICAgICAgICAgICAgICAgIC RnFNBoRZOgCVEdVN4SPLMrHRXcCZBuUOYwVDOkUTVu ICAgICAgICAgICAgICAgICAgICAgICAgICAgICAgICAgICAgICAgICAgICAgICAgICAgICAgICAgICAg NSWwWIPxBOXpOGLnAHLvUWXnZZWcRS4QZBZvULWcDLEqWBYmGVIpKBSeKPDgKCYlQOToJLLbQHKaAPOo ICAgICAgICAgICAgICAgICAgICAgICAgICAgICAgIC AgMWNeCAVvGKRbVFThQRSqFMWbNZTmQXNyJPKdSXChSN9HDYQgPJAnCHDsZOPqGNSbXEIqFLScMTZqNU AgICAgICAgICAgICAgICAgICAgICAgICAgICAgICAgICAgICAgICAgICAgICAgICAgICAgICAgICAgIC RvJBQtSFTgQYWvNQNlZX1HSWXwCJIhDVCnXYYmMVRt ICAgICAgICAgICAgICAgICAgICAgICAgICAgICAgICAgICAgICAgICAgICAgICAgICAgICAgICAgICAg KFDiVNJyRWMuKTOgASXwTVJiCRDwCLVmVS1FYE38cWPzx3I1KAAkDC8buoc/Gi8HYXvknlLnbANuLD1C HbUnWE2ipm0SJmFnII6nkr2ETDyMDnCmF4S5uUOnRK NrMRYSIiSiW74lJHueOp76XMxxEGCtIzAfIGr2Zd4WFsAwJ7reHXKkFjX4KDOcFeW2VSOiOaW0ZSStIs RsRRmeHX1Lw0JhwFFpEUa+Tp9RSR8xu8FwZDcdZHXeBA4wlv0OJAgILsHzD5N7hXTsF6R0SGgyYp2FRG NaEWNqAmxbKURHUOduZG1GRF5mlgF6VL0VxHVoRONq FUWxsARqVFw1Z58cyKSyGQvtDS0SEIR+Rusty+Cx5EMWUhUYDfARWhLgCeKMWRWqWjE22brUPjNISvWSW5 MOAuXc8DIZXdP6VhfdMwvQbcsjIxVDZrHACAFS4TPEarjdHxvZSpuNhfTP89fQsrDF9IFt6EGpFjGQ6v tw1CfOIxGl5JDSEsDL2YKIHzDBPtHVAfLXC7TDVvCd RpVPahOYVqBNCvKTT8XIWaIKIiKP5QHkSoSJIgQHigYpifOWXiPHBbxr3KXEEyOSImNOwzYQSzBPFtIB ImEMaiRXZwKBVlGIe4SLRlCJObFZ9JMqRdUSOpXZYtAVIxVUNuTBHuxw0LBEDtXRYjKLZsKTZhVYAcOR PdDMinGOYsLWT1YMVqRTEaLSBsHL6LMsGlMNDtKLfq IcFpBAVfXTBdgw5KFQOxVJZbUTvjWCIdZIJxYRRyFDpzWDEeSXC9RZL8XJSbGCQaCV0MRzYvQQCpVXA2 PNqqVCPaWBZrmt4ASQVdAOLuJLM3YADhEXBnMBTkPVzpDKUcSYOsOxO5WCNsGSGaMR9HOyAmDTXiUUEk TmmtEPGaMZQndl4TIGZyYASaHaLtZYHkDRPbPGIkGW ylGILxJFPvMzD6ZEKeWTOuWM3MVuFjQEMaTDM6VtXoPPEwVNJxum5STZZiHNApBaa1BwDuITEeDPIjQV jrZOUpPHTlZJLjPYVnOCRxQL3FRkZfIKZwDVY8NSbjMLVsFPPlwb2XXHIpGPSkROQaUTYdALJnPZYoVE mvSKBiEAG2HlD1VYItOBRzWA4FOhAuSAJsWYB9YiRt HQTgQMEazg1RVYGsDVGlXHidTyVeRRSyZUPlEMqxWFSiJBQ4UeCvBMPjFWHvUA6HNgDsOKPyZVX5Ypbl UOJiDRDltn4FYEMuQXLaPkl6KLUfZJEpWIDtTTxfXRNzBXM7TCO7FQUpLKFsKG0HRwFcRZCiSMq0KdVh CTWsJOFarj4GUJSsFUZhLKUbFTKtLOJhBHMeHGx8jo PceXMtGBk3PR3FQ0MeluXbBiISUh0Xy514JKPjQYZfAx9UY7xfSt3fEGDuDLCSHu8QJIy8KOEcRfJ4Xo XqSiZ5VAtkYqPjKmBiYoc8E3YyHBV6Zpm+XZqvA5ZlGiHiEYZ8WzPgOTAcRDL7RHIaBRg5WzK2OrC3Bp 8gXQSXDf5+OQuhmQXufDsjIHGWZiX1EqTpOZshTQNCSy5L ID Date Data Source [id number] 10/08/2020 12:36:00 AM EDT [facility] Name Value Range Interpretation Code Description Data Kathleen rce(s) Supporting Document(s) SARS coronavirus 2 RNA [Presence] in Res piratory specimen by BOLA with probe detection NEGATIVE [facility] This lab was ordered by [facility] a nd reported by [facility]. ID Date Data Source [id number] 10/07/2020 08:50:00 AM EDT MEDENT ([facility] ) Name Value Range Interpretation Code Description Data Kathleen rce(s) Supporting Document(s) PDFReport Laboratory test result MEDENT ([facility], ) FVC-Pred 2.30 L MEDENT ([facility]) FVC-Pre 1.83 L MEDENT ([facility]) FVC-%Pred-Pre 79 L MEDENT ([facility]) FVC-LLN 1.71 L MEDENT ([facility]) Fev1-Pred 1.72 L MEDENT ([facility], ) Fev1-Pre 1.29 L MEDENT ([facility], ) Fev1-%Pred-Pre 75 L MEDENT ([facility], ) Fev1-LLN 1.22 L MEDENT ([facility], ) Fev6-Pred 2.18 L MEDENT ([facility], ) Fev6-%Pred-Pre 83 L MEDENT ([facility], ) Fev6-Pre 1.83 L MEDENT ([facility], ) Xlm3llj-Kler 75 % MEDENT ([facility]) Fev6-LLN 1.60 L MEDENT ([facility]) Ire4sdt-%Pred-Pre 93 % MEDENT ([facility]) Llf0cnc-Njn 70 % [facility] ([facility]) Bww8lby-JIN 65 % [facility] ([facility]) Elh7aou-Ytxs 95 % [facility] ([facility]) Jyv0ukb-%Pred-Pre 105 % MEDENT ([facility]) Vpv6wpk-Csv 100 % [facility] ([facility]) FEFMax-Pred 4.67 L/E/sec MEDENT ([facility], ) FEFMax-Pre 3.04 L/E/sec MEDENT ([facility], ) FEFMax-%Pred-Pre 65 L/E/sec MEDENT ([facility]) FEFMax-LLN 3.21 L/E/sec MEDENT ([facility]) Blt8474-Prwy 1.48 L/E/sec MEDENT ([facility]) Qva9615-%Pred-Pre 62 L/E/sec MEDENT ([facility]) Ceu8362-IHD 0.43 L/E/sec MEDENT ([facility]) Ois9980-Pei 0.93 L/E/sec MEDENT ([facility], ) ExpTime-Pre 4.86 sec MEDENT ([facility]) Otn4cmj0-Wyoy 79 % MEDENT ([facility]) Vms3dds7-%Pred-Pre 89 % MEDENT ([facility]) Mak2zmo7-Dzz 70 % MEDENT ([facility]) Yib4rzh5-PUE 70 % MED[facility] ([facility]) ID Date Data Source [id number] 09/22/2020 09:14:00 PM EDT [facility] Name Value Range Interpretation Code Description Data Kathleen rce(s) Supporting Document(s) SARS coronavirus 2 RNA [Presence] in Res piratory specimen by BOLA with probe detection NEGATIVE [facility] This lab was ordered by [facility] a nd reported by [facility]. ID Date Data Source [id number] 08/31/2020 11:46:00 AM EDT MEDENT ([facility] ) Name Value Range Interpretation Code Description Data Kathleen rce(s) Supporting Document(s) Bacteria identified in Nose by Aerobe culture Laboratory test re sult Normal (applies to non-numeric results) MEDENT ([facility], ) <content>FULL REPORT IN LAB NOTES (eCW a nd Medent).</content>
<content>NO NORMAL DEMARIO ISOLATED</content>
<content></content>
<content>ORGANISM 1: STAPHYLOCOCCUS AUREUS</content>
<content></content>
<content>QUANTITY OF GROWTH MODERATE</content>
<content></content>
<content></content>
<content> ORGANISM 1: STAPHYLOCOCCUS AUREUS</content>
<content> </content>
<content>STAPHYLOCOCCUS AUREUS: REACTION</content>
<content>ICR (INDUCIBLE CC RESISTANCE) IV ICR TEST RESULT</content>
<content>TETRACYCLINE PO 250 mg qid 2 S</content>
<content>PENICILLIN G IV 1 mu q6H >=0.5 R</content>
<content>PENICILLIN G IV 1 mu q6h >=0.5 R</content>
<content>PENICILLIN G PO 250mg q6h fasting >=0.5 R</content>
<content>TRIMETHOPRIM/SULFAMETHOXAZOLE IV 160mg TMP & 800mg SMXq6h <=10 S</content>
<content>TRIMETHOPRIM/SULFAMETHOXAZOLE PO Bactrim DS Bid <=10 S</content>
<content>ERYTHROMYCIN IV 500mg q6h >=8 R</content>
<content>ERYTHROMYCIN PO 500mg q6h >=8 R</content>
<content>GENTAMICIN IV 80mg q8h <=0.5 S</content>
<content>CLINDAMYCIN IV 600mg q6h 0.25 R</content>
<content>CLINDAMYCIN PO 150mg q6h 0.25 R</content>
<content>NITROFURANTOIN PO 100mg BID <=16 S</content>
<content>OXACILLIN IV 500mg q6h 0.5 S</content>
<content>VANCOMYCIN IV 500mg q8h 1 S</content>
<content> LINEZOLID (ZYVOX) IV 600MG Q12HR 2 S</content>
<content>LINEZOLID (ZYVOX) PO 600MG Q12HR 2 S</content>
<content>An isolate with a (+) POSITIVE ICR test is considered</content>
<content>CLINDAMYCIN RESISTANT; however, clindamycin may still</content>
<content>be effective in some patients.</content>
< content>An isolate with a (-) NEGATIVE ICR test is considered</content>
<content>CLIDAMYCIN SENSITIVE.</content>
<content>Oxacillin result predicts susceptibility to all penicillinase-stable</content>
<content>penicillins (Nafcillin, Dicloxacilin), Cephalosporins, Carbapenems,</content>
<content>Amoxicillin/Clavulanate & Ampicillin/Sulbactam per [facility] standards.</content>
<content></content> ID Date Data Source [id number] 08/25/2020 12:58:00 PM EDT [facility] Name Value Range Interpretation Code Description Data Kathleen rce(s) Supporting Document(s) Glucose [Mass/volume] in Capillary blood by Glucometer 145 mg/dL 83-110 Above high normal [facility] ([facility]) ID Date Data Source [id number] 08/25/2020 10:52:00 AM EDT [facility] Name Value Range Interpretation Code Description Data Kathleen rce(s) Supporting Document(s) Glucose [Mass/volume] in Capillary blood by Glucometer 192 mg/dL 83-110 Above high normal [facility] ([facility]) ID Date Data Source [id number] 08/20/2020 11:05:00 AM EDT [facility] Name Value Range Interpretation Code Description Data Kathleen rce(s) Supporting Document(s) SARS-CoV-2 (COVID-19) RNA [Presence] in Respiratory specimen by BOLA with probe detection Not Detected [facility] This lab was ordered by [facility] and reported by [facility]. ID Date Data Source [id number] 08/17/2020 11:32:09 PM EDT [facility] Name Value Range Interpretation Code Description Data Kathleen rce(s) Supporting Document(s) DIGOXIN 2.4 ng/mL (0.8-2.0) [facility] RESULT(S) CALLED TO AND READ BACK GARRISON FLETCHER AT [id number] ON [id number] AT [id number] [place] [id number]. ID Date Data Source [id number] 08/03/2020 02:30:00 PM EDT [facility] ([facility]) Name Value Range Interpretation Code Description Data Kathleen rce(s) Supporting Document(s) Hemoglobin A1c/Hemoglobin.total in Blood 8.4 [facility] ) Glucose [Mass/volume] in Serum or Plasma 113 [facility] ([facility]) ID Date Data Source ERYTHROCYTE SEDIMENTATION RATE 06/28/2020 12:00:00 AM EST eC W1 ([facility]) Name Value Range Interpretation Code Description Data Kathleen rce(s) Supporting Document(s) 12 0-30 ERYTHROCYTE SEDIMENTATION RATE eCW1 ([facility]) ID Date Data Source URIC ACID 06/28/2020 12:00:00 AM EST eCW1 ([facility]) Name Value Range Interpretation Code Description Data Kathleen rce(s) Supporting Document(s) 8.4 2.6-6.0 URIC ACID eCW1 ([facility]) ID Date Data Source C REACTIVE PROTEIN QUANTITATIV (At [facility]) 06/28/2020 12:00 :00 AM EST eCW1 ([facility]) Name Value Range Interpretation Code Description Data Kathleen rce(s) Supporting Document(s) < 0.30 0.00-0.30 C REACTIVE PROTEIN QUANTI TATIV eCW1 ([facility]) ID Date Data Source Comprehensive Metabolic Profile (CMP) 06/28/2020 12:00:00 AM EST eCW1 ([facility]) Name Value Range Interpretation Code Description Data Kathleen rce(s) Supporting Document(s) 120 70-100 GLUCOSE, FASTING eCW1 ([facility]) 1.68 0.55-1.30 CREATININE FOR GFR eCW1 ([facility]) 35 7-18 BLOOD UREA NITROGEN eCW1 ([facility]) 31.9 >39 GLOMERULAR FILTRATION RATE eCW 1 ([facility]) 138 136-145 SODIUM LEVEL eCW1 ([facility]) 107 98-107 CHLORIDE LEVEL eCW1 ([facility]) 5.7 3.5-5.1 POTASSIUM SERUM eCW1 ([facility]) 28 21-32 CARBON DIOXIDE LEVEL eCW1 ([facility]) 9.1 8.8-10.2 CALCIUM LEVEL eCW1 ([facility]) 48 12-78 ALT/SGPT eCW1 ([facility]) 120 45-117 ALKALINE PHOSPHATASE eCW1 ([facility]) 21 7-37 AST/SGOT eCW1 ([facility]) 3.6 3.2-5.2 ALBUMIN eCW1 ([facility]) 5.9 6.4-8.2 TOTAL PROTEIN eCW1 ([facility]) 0.7 0.2-1.0 BILIRUBIN,TOTAL eCW1 ([facility]) 1.6 1.2-2.2 ALBUMIN/GLOBULIN RATIO eCW1 ([facility]) ID Date Data Source [id number] 06/15/2020 08:35:00 AM EST MEDENT ([facility]) Name Value Range Interpretation Code Description Data Kathleen rce(s) Supporting Document(s) Fructosamine [Moles/volume] in Serum or Plasma 284 umol/L 0-285 MEDENT ([facility]) Published reference interval for apparen tly healthy subjects between age 20 and 60 is 205 - 285 umol/L and in a poorly controlled diabetic population is 228 - 563 umol/L with a mean of 396 umol/L. Performed at: RN - [facility] [address] [id number] [employer] Tender: Saira Barreto MD, Phone: [phone] ID Date Data Source [id number] 05/11/2020 03:24:00 PM EST MEDENT ([facility]) Name Value Range Interpretation Code Description Data Kathleen rce(s) Supporting Document(s) Hemoglobin A1c/Hemoglobin.total in Blood 7.7 MEDENT ([facility]) Glucose [Mass/volume] in Serum or Plasma 252 MEDENT ([facility]) ID Date Data Source [id number] 05/03/2020 01:33:00 PM EST [facility] Name Value Range Interpretation Code Description Data Kathleen rce(s) Supporting Document(s) SARS-CoV-2 (COVID 19) NEGATIVE - SARS-CoV-2 (COVID19) [facility] This lab was ordered by [facility] a nd reported by [facility]. ID Date Data Source TOTAL PROTEIN,RANDOM URINE 04/20/2020 12:00:00 AM EST eCW1 ( [facility]) Name Value Range Interpretation Code Description Data Kathleen rce(s) Supporting Document(s) 36.4 0.0-12.0 TOTAL PROTEIN,RANDOM URIN E eCW1 ([facility]) ID Date Data Source CREATININE,RANDOM URINE 04/20/2020 12:00:00 AM EST eCW1 ([facility]) Name Value Range Interpretation Code Description Data Kathleen rce(s) Supporting Document(s) 134.0 CREATININE,RANDOM URINE eCW1 ( [facility]) ID Date Data Source [id number] 02/10/2020 09:35:00 AM EDT MEDENT ([facility]) Name Value Range Interpretation Code Description Data Kathleen rce(s) Supporting Document(s) Hemoglobin A1c/Hemoglobin.total in Blood 7.7 MEDENT ([facility]) Glucose [Mass/volume] in Serum or Plasma 188 MEDENT ([facility]) Procedure Social History Code Duration Value Status Description Data Source(s ) Smoking 01/27/2021 12:00:00 AM EDT Never Smoker completed Never S moker eCW1 ([facility]) Smoking 01/27/2021 12:00:00 AM EDT Never Smoker completed Never S moker eCW1 ([facility]) Alcohol intake 01/19/2021 12:00:00 AM EDT Ex-drinker (finding) comp leted Ex- drinker (finding) [facility] Smoking 01/12/2021 09:53:30 AM EDT Never smoked tobacco (findi ng) completed Never smoked tobacco (finding) [facility]OD[facility] (Reilly Hebert MD [facility]) Smoking 01/03/2021 12:00:00 AM EDT Never Smoker completed Never S moker eCW1 ([facility]) Smoking 01/03/2021 12:00:00 AM EDT Never Smoker completed Never S moker eCW1 ([facility]) Smoking 01/03/2021 12:00:00 AM EDT Never Smoker completed Never S moker eCW1 ([facility]) Smoking 01/03/2021 12:00:00 AM EDT Never Smoker completed Never S moker eCW1 ([facility]) Smoking 12/27/2020 02:27:33 PM EDT Never smoked tobacco (findi ng) completed Never smoked tobacco (finding) [facility] (Reilly Hebert MD [facility]) Smoking 12/20/2020 12:00:00 AM EDT Never Smoker completed Never S moker eCW1 ([facility]) Smoking 12/19/2020 08:42:14 PM EDT Never smoked tobacco (findi ng) completed Never smoked tobacco (finding) [facility] (Reilly Hebert MD [facility]) Smoking 12/02/2020 07:09:08 AM EDT Never smoked tobacco (findi ng) completed Never smoked tobacco (finding) [facility] (Reilly Hebert MD [facility]) Smoking 11/09/2020 12:00:00 AM EDT Patient has never smoked co mpleted Patient has never smoked MEDENT ([facility]) Smoking 10/22/2020 12:00:00 AM EDT Never Smoker completed Never S moker eCW1 ([facility]) Smoking 10/22/2020 12:00:00 AM EDT Never Smoker completed Never S moker eCW1 ([facility]) Smoking 10/22/2020 12:00:00 AM EDT Never Smoker completed Never S moker eCW1 ([facility]) Smoking 10/22/2020 12:00:00 AM EDT Never Smoker completed Never S moker eCW1 ([facility]) Smoking 10/22/2020 12:00:00 AM EDT Never Smoker completed Never S moker eCW1 ([facility]) Alcohol intake 10/14/2020 12:00:00 AM EDT Ex-drinker (finding) comp leted Ex- drinker (finding) [facility] Alcohol intake 10/11/2020 12:00:00 AM EDT Ex-drinker (finding) comp leted Ex- drinker (finding) [facility] Smoking 10/07/2020 12:00:00 AM EDT Patient has never smoked co mpleted Patient has never smoked MEDENT ([facility] ) Smoking 10/04/2020 12:00:00 AM EDT Never Smoker completed Never S moker eCW1 ([facility]) Smoking 09/16/2020 09:25:11 AM EDT Never smoked tobacco (findi ng) completed Never smoked tobacco (finding) [facility] (Reilly Hebert MD [facility]) Smoking 08/19/2020 12:00:00 AM EDT Never Smoker completed Never S moker eCW1 ([facility]) Smoking 08/19/2020 12:00:00 AM EDT Never Smoker completed Never S moker eCW1 ([facility]) Smoking 08/19/2020 12:00:00 AM EDT Never Smoker completed Never S moker eCW1 ([facility]) Smoking 08/19/2020 12:00:00 AM EDT Never Smoker completed Never S moker eCW1 ([facility]) Alcohol intake 08/17/2020 12:00:00 AM EDT Ex-drinker (finding) comp leted Ex- drinker (finding) [facility] Smoking 07/16/2020 08:12:21 AM EDT Never smoked tobacco (findi ng) completed Never smoked tobacco (finding) [facility] (Reilly Hebert MD [facility]) Smoking 06/28/2020 12:00:00 AM EST Never Smoker completed Never S moker eCW1 ([facility]) Smoking 06/28/2020 12:00:00 AM EST Never Smoker completed Never S moker eCW1 ([facility]) Smoking 06/28/2020 12:00:00 AM EST Never Smoker completed Never S moker eCW1 ([facility]) Smoking 06/28/2020 12:00:00 AM EST Never Smoker completed Never S moker eCW1 ([facility]) Smoking 06/28/2020 12:00:00 AM EST Never Smoker completed Never S moker eCW1 ([facility]) Smoking 06/15/2020 08:15:52 AM EST Never smoked tobacco (findi ng) completed Never smoked tobacco (finding) [facility] (Reilly Hebert MD [facility]) Smoking 05/24/2020 12:00:00 AM EST Never Smoker completed Never S moker eCW1 ([facility]) Smoking 05/24/2020 12:00:00 AM EST Never Smoker completed Never S moker eCW1 ([facility]) Smoking 05/24/2020 12:00:00 AM EST Never Smoker completed Never S moker eCW1 ([facility]) Smoking 04/30/2020 12:00:00 AM EST Never Smoker completed Never S moker eCW1 ([facility]) Smoking 04/30/2020 12:00:00 AM EST Never Smoker completed Never S moker eCW1 ([facility]) Smoking 04/30/2020 12:00:00 AM EST Never Smoker completed Never S moker eCW1 ([facility]) Smoking 04/26/2020 12:00:00 AM EST Never Smoker completed Never S moker eCW1 ([facility]) Smoking 04/20/2020 12:38:13 PM EST Never smoked tobacco (findi ng) completed Never smoked tobacco (finding) [facility] (Reilly Hebert MD [facility]) Smoking 04/19/2020 12:00:00 AM EST Never Smoker completed Never S moker eCW1 ([facility]) Smoking 04/19/2020 12:00:00 AM EST Never Smoker completed Never S moker eCW1 ([facility]) Smoking 04/08/2020 09:02:29 AM EST Never smoked tobacco (findi ng) completed Never smoked tobacco (finding) [facility] (Reilly Hebert MD [facility]) Smoking 04/02/2020 08:12:47 AM EST Never smoked tobacco (findi ng) completed Never smoked tobacco (finding) [facility] (Reilly Hebert MD [facility]) Smoking 03/23/2020 08:41:07 AM EST Never smoked tobacco (findi ng) completed Never smoked tobacco (finding) [facility] (Reilly Hebert MD [facility]) Smoking 03/12/2020 08:59:34 AM EST Never smoked tobacco (findi ng) completed Never smoked tobacco (finding) [facility] (Reilly Hebert MD [facility]) Smoking 02/11/2020 10:00:10 AM EDT Never smoked tobacco (findi ng) completed Never smoked tobacco (finding) [facility] (Reilly Hebert MD [facility]) Smoking 01/22/2020 12:00:00 AM EDT Never Smoker completed Never S moker eCW1 ([facility]) Smoking 01/22/2020 12:00:00 AM EDT Never Smoker completed Never S moker eCW1 ([facility]) Smoking 01/22/2020 12:00:00 AM EDT Never Smoker completed Never S moker eCW1 ([facility]) Smoking 01/22/2020 12:00:00 AM EDT Never Smoker completed Never S moker eCW1 ([facility]) Smoking 01/22/2020 12:00:00 AM EDT Never Smoker completed Never S moker eCW1 ([facility]) Smoking 01/22/2020 12:00:00 AM EDT Never Smoker completed Never S moker eCW1 ([facility]) Smoking 01/02/2020 09:15:01 AM EDT Never smoked tobacco (findi ng) completed Never smoked tobacco (finding) [facility] (Reilly Hebert MD [facility]) Vital Signs ID Date Data Source UNK Name Value Range Interpretation Code Description Data Source(s) Body weight 176.8 [lb_av] 176.8 [lb_av] eCW1 ([facility]) Body weight 80.2 kg 80.2 kg eCW1 ([facility]) Body height 60.5 [in_i] 60.5 [in_i] eCW1 ([facility]) Body mass index (BMI) [Ratio] 33.96 kg/m2 33.96 kg/m2 W1 ([facility]) Heart rate 85 /min 85 /min eCW1 ([facility]) Respiratory rate 18 /min 18 /min eCW1 ([facility]) Body temperature 97.3 [degF] 97.3 [degF] eCW1 ( [facility]) Systolic blood pressure 134 mm[Hg] 134 mm[Hg] e CW1 ([facility]) Diastolic blood pressure 64 mm[Hg] 64 mm[Hg] eCW1 ([facility]) Systolic blood pressure 167 mm[Hg] 167 mm[Hg] [facility] Diastolic blood pressure 90 mm[Hg] 90 mm[Hg] [facility] Heart rate 86 /min 86 /min [facility] Body height 154.9 cm 154.9 cm [facility] Body weight 78.472 kg 78.472 kg [facility] Body mass index (BMI) [Ratio] 32.69 kg/m2 32.69 kg/m2 [facility] Systolic blood pressure 126 mm[Hg] 126 mm[Hg] M EDENT ([facility]) Diastolic blood pressure 92 mm[Hg] 92 mm[Hg] MEDENT ([facility]) Heart rate 77 /min 77 /min MEDENT ([facility] Body weight 176.00 [lb_av] 176.00 [lb_av] MEDEN T ([facility]) Body weight 177 [lb_av] 177 [lb_av] eCW1 ([facility]) Body mass index (BMI) [Ratio] 34.00 kg/m2 34.00 kg/m2 eCW1 ([facility]) Heart rate 78 /min 78 /min eCW1 ([facility]) Respiratory rate 20 /min 20 /min eCW1 ([facility]) Body temperature 97 [degF] 97 [degF] eCW1 ([facility]) Systolic blood pressure 120 mm[Hg] 120 mm[Hg] e CW1 ([facility]) Diastolic blood pressure 70 mm[Hg] 70 mm[Hg] eCW1 ([facility]) Body height 60.5 [in_i] 60.5 [in_i] eCW1 ([facility]) Body weight 177 [lb_av] 177 [lb_av] eCW1 ([facility]) Body height 60.5 [in_i] 60.5 [in_i] eCW1 ([facility]) Body mass index (BMI) [Ratio] 34.00 kg/m2 34.00 kg/m2 eCW1 ([facility]) Heart rate 103 /min 103 /min eCW1 ([facility]) Respiratory rate 18 /min 18 /min eCW1 ([facility]) Body temperature 97.1 [degF] 97.1 [degF] eCW1 ( [facility]) Systolic blood pressure 120 mm[Hg] 120 mm[Hg] e CW1 ([facility]) Diastolic blood pressure 76 mm[Hg] 76 mm[Hg] eCW1 ([facility]) Mico body weight 100 [lb_av] 100 [lb_av] MEDEN T ([facility]) Body weight 80.741 kg 80.741 kg MEDENT ([facility]) Body surface area Derived from formula 1.76 m2 1.76 m2 [facility] Body height 59 [in_i] 59 [in_i] MEDENT ([facility]) 4'11" Body weight 178.00 [lb_av] 178.00 [lb_av] MEDEN T ([facility]) Body mass index (BMI) [Ratio] 35.9 kg/m2 35.9 k g/m2 [facility] ([facility]) Systolic blood pressure 136 mm[Hg] 136 mm[Hg] [facility] Diastolic blood pressure 72 mm[Hg] 72 mm[Hg] [facility] Heart rate 84 /min 84 /min [facility] Body height 154.9 cm 154.9 cm [facility] Body weight 81.194 kg 81.194 kg [facility] Body mass index (BMI) [Ratio] 33.82 kg/m2 33.82 kg/m2 [facility] Oxygen saturation in Arterial blood by Pulse oximetry 97 % 97 % [facility] Body weight 177.38 [lb_av] 177.38 [lb_av] MEDEN T ([facility] ) Systolic blood pressure 120 mm[Hg] 120 mm[Hg] M EDENT ([facility] ) Diastolic blood pressure 65 mm[Hg] 65 mm[Hg] MEDENT ([facility] ) Heart rate 74 /min 74 /min [facility] Body height 60 [in_i] 60 [in_i] MEDENT ([facility] ) 5'0" Body mass index (BMI) [Ratio] 34.6 kg/m2 34.6 k g/m2 MEDENT ([facility]) Oxygen saturation in Arterial blood by Pulse oximetry 96 % 96 % MEDENT ([facility]) Body weight 81.194 kg 81.194 [facility] Body height 59 [in_i] 59 [in_i] [facility] 4'11" Body surface area Derived from formula 1.76 m2 1.76 m2 MEDENT ([facility]) Body weight 179.00 [lb_av] 179.00 [lb_av] MEDEN T ([facility]) Body mass index (BMI) [Ratio] 36.1 kg/m2 36.1 k g/m2 [facility] Mico body weight 100 [lb_av] 100 [lb_av] MEDEN T ([facility]) Body weight 178.6 [lb_av] 178.6 [lb_av] eCW1 ([facility]) Body weight 81.0 kg 81.0 kg eCW1 ([facility]) Body height 60.5 [in_i] 60.5 [in_i] eCW1 ([facility]) Body mass index (BMI) [Ratio] 34.30 kg/m2 34.30 kg/m2 W1 ([facility]) Heart rate 86 /min 86 /min eCW1 ([facility]) Respiratory rate 18 /min 18 /min eCW1 ([facility]) Body temperature 97.3 [degF] 97.3 [degF] eCW1 ( [facility]) Systolic blood pressure 150 mm[Hg] 150 mm[Hg] e CW1 ([facility]) Diastolic blood pressure 78 mm[Hg] 78 mm[Hg] eCW1 ([facility]) Body height 154.9 cm 154.9 cm [facility] Systolic blood pressure 116 mm[Hg] 116 mm[Hg] [facility] Diastolic blood pressure 64 mm[Hg] 64 mm[Hg] [facility] Heart rate 67 /min 67 /min [facility] Oxygen saturation in Arterial blood by Pulse oximetry 98 % 98 % [facility] Body weight 80.287 kg 80.287 kg [facility] Body mass index (BMI) [Ratio] 33.44 kg/m2 33.44 kg/m2 [facility] Systolic blood pressure 120 mm[Hg] 120 mm[Hg] [facility] Diastolic blood pressure 64 mm[Hg] 64 mm[Hg] [facility] Body mass index (BMI) [Ratio] 34.01 kg/m2 34.01 kg/m2 [facility] Heart rate 83 /min 83 /min [facility] Respiratory rate 12 /min 12 /min [facility] Body height 154.9 cm 154.9 cm [facility] Body weight 81.647 kg 81.647 kg [facility] Oxygen saturation in Arterial blood by Pulse oximetry 93 % 93 % [facility] Body mass index (BMI) [Ratio] 36.1 kg/m2 36.1 k g/m2 [facility] Mico body weight 100 [lb_av] 100 [lb_av] MEDEN T ([facility], ) Oxygen saturation in Arterial blood by Pulse oximetry 98 % 98 % [facility] ([facility], ) Body height 59 [in_i] 59 [in_i] [facility] ([facility], ) 4'11" Body weight 179.00 [lb_av] 179.00 [lb_av] MEDEN T ([facility], ) Body weight 81.194 kg 81.194 kg [facility] ([facility], ) Body surface area Derived from formula 1.76 m2 1.76 m2 [facility] ([facility], ) Systolic blood pressure 128 mm[Hg] 128 mm[Hg] CHERISE ([facility], ) Diastolic blood pressure 74 mm[Hg] 74 mm[Hg] [facility] ([facility], ) Heart rate 85 /min 85 /min [facility] Oxygen saturation in Arterial blood by Pulse oximetry 98 % 98 % [facility] ([facility]) Body height 59 [in_i] 59 [in_i] [facility] ([facility]) 4'11" Body weight 179.00 [lb_av] 179.00 [lb_av] MEDEN T ([facility]) Body mass index (BMI) [Ratio] 36.1 kg/m2 36.1 k g/m2 [facility] ([facility]) Mico body weight 100 [lb_av] 100 [lb_av] MEDEN T ([facility]) Body weight 81.194 kg 81.194 kg [facility] ([facility]) Body surface area Derived from formula 1.76 m2 1.76 m2 [facility] ([facility]) Body weight 175.00 [lb_av] 175.00 [lb_av] MEDEN T ([facility]) Body mass index (BMI) [Ratio] 35.3 kg/m2 35.3 k g/m2 [facility] ([facility]) Mico body weight 100 [lb_av] 100 [lb_av] MEDEN T ([facility]) Body weight 79.380 kg 79.380 kg [facility] ([facility]) Body surface area Derived from formula 1.74 m2 1.74 m2 [facility] ([facility]) Body height 59 [in_i] 59 [in_i] [facility] ([facility]) 4'11" Body weight 178 [lb_av] 178 [lb_av] eCW1 ([facility]) Body height 60.5 [in_i] 60.5 [in_i] eCW1 ([facility]) Body mass index (BMI) [Ratio] 34.19 kg/m2 34.19 kg/m2 W1 ([facility]) Heart rate 91 /min 91 /min eCW1 ([facility]) Respiratory rate 18 /min 18 /min eCW1 ([facility]) Body temperature 96.9 [degF] 96.9 [degF] eCW1 ( [facility]) Systolic blood pressure 120 mm[Hg] 120 mm[Hg] e CW1 ([facility]) Diastolic blood pressure 62 mm[Hg] 62 mm[Hg] eCW1 ([facility]) Systolic blood pressure 136 mm[Hg] 136 mm[Hg] [facility] Diastolic blood pressure 70 mm[Hg] 70 mm[Hg] [facility] Heart rate 70 /min 70 /min [facility] Body height 154.9 cm 154.9 cm [facility] Body weight 80.74 kg 80.74 kg [facility] Body mass index (BMI) [Ratio] 33.63 kg/m2 33.63 kg/m2 [facility] Oxygen saturation in Arterial blood by Pulse oximetry 98 % 98 % [facility] Body height 59 [in_i] 59 [in_i] [facility] ([facility]) 4" Body weight 181.00 [lb_av] 181.00 [lb_av] MEDEN T ([facility]) Mico body weight 100 [lb_av] 100 [lb_av] MEDEN T ([facility]) Body mass index (BMI) [Ratio] 36.6 kg/m2 36.6 k g/m2 [facility] ([facility]) Body weight 82.102 kg 82.102 kg [facility] ([facility]) Body surface area Derived from formula 1.77 m2 1.77 m2 [facility] ([facility]) Body height 59 [in_i] 59 [in_i] [facility] ([facility]) 4'11" Body weight 181.00 [lb_av] 181.00 [lb_av] MEDEN T ([facility]) Body mass index (BMI) [Ratio] 36.6 kg/m2 36.6 k g/m2 [facility] ([facility]) Mico body weight 100 [lb_av] 100 [lb_av] MEDEN T ([facility]) Body weight 82.102 kg 82.102 kg [facility] ([facility], ) Body surface area Derived from formula 1.77 m2 1.77 m2 MEDENT ([facility]) Body weight 177.8 [lb_av] 177.8 [lb_av] eCW1 ([facility]) Body height 60.5 [in_i] 60.5 [in_i] eCW1 ([facility]) Body mass index (BMI) [Ratio] 34.15 kg/m2 34.15 kg/m2 eCW1 ([facility]) Heart rate 88 /min 88 /min eCW1 ([facility]) Respiratory rate 18 /min 18 /min eCW1 ([facility]) Body temperature 97.4 [degF] 97.4 [degF] eCW1 ( [facility]) Systolic blood pressure 122 mm[Hg] 122 mm[Hg] e CW1 ([facility]) Diastolic blood pressure 68 mm[Hg] 68 mm[Hg] eCW1 ([facility]) Body height 59 [in_i] 59 [in_i] [facility] 4'11" Body weight 181.00 [lb_av] 181.00 [lb_av] MEDEN T ([facility], ) Body weight 82.102 kg 82.102 kg [facility] ([facility]) Body surface area Derived from formula 1.77 m2 1.77 m2 [facility] ([facility]) Body mass index (BMI) [Ratio] 36.6 kg/m2 36.6 k g/m2 [facility] ([facility]) Mico body weight 100 [lb_av] 100 [lb_av] MEDEN T ([facility]) Systolic blood pressure 148 mm[Hg] 148 mm[Hg] [facility] Diastolic blood pressure 90 mm[Hg] 90 mm[Hg] [facility] Body weight 81.194 kg 81.194 kg [facility] Body mass index (BMI) [Ratio] 33.82 kg/m2 33.82 kg/m2 [facility] Oxygen saturation in Arterial blood by Pulse oximetry 96 % 96 % [facility] Heart rate 74 /min 74 /min [facility] Body height 154.9 cm 154.9 cm [facility] Diastolic blood pressure 76 mm[Hg] 76 mm[Hg] MEDENT ([facility] ) Oxygen saturation in Arterial blood by Pulse oximetry 98 % 98 % MEDENT ([facility]) Heart rate 62 /min 62 /min [facility] ([facility]) Body weight 180.25 [lb_av] 180.25 [lb_av] MEDEN T ([facility]) Body mass index (BMI) [Ratio] 35.2 kg/m2 35.2 k g/m2 [facility] ([facility]) Systolic blood pressure 122 mm[Hg] 122 mm[Hg] M EDENT ([facility]) Body temperature 96.8 [degF] 96.8 [degF] MEDENT ([facility]) Body height 60 [in_i] 60 [in_i] [facility] ([facility]) 5'0" Body mass index (BMI) [Ratio] 36.6 kg/m2 36.6 k g/m2 [facility] ([facility], ) Mico body weight 100 [lb_av] 100 [lb_av] MEDEN T ([facility], ) Body weight 82.102 kg 82.102 [facility] ) Body surface area Derived from formula 1.77 m2 1.77 m2 [facility] ([facility], ) Body height 59 [in_i] 59 [in_i] MEDENT ([facility], ) 4'11" Body weight 181.00 [lb_av] 181.00 [lb_av] MEDEN T ([facility], ) Systolic blood pressure 163 mm[Hg] 163 mm[Hg] M EDENT ([facility], ) Diastolic blood pressure 63 mm[Hg] 63 mm[Hg] [facility] ([facility], ) Body height 59 [in_i] 59 [in_i] MEDENT ([facility], ) 4'11" Body weight 181.00 [lb_av] 181.00 [lb_av] MEDEN T ([facility]) Body mass index (BMI) [Ratio] 36.6 kg/m2 36.6 k g/m2 [facility] ([facility]) Mico body weight 100 [lb_av] 100 [lb_av] MEDEN T ([facility]) Body weight 82.102 kg 82.102 kg [facility] ([facility]) Body surface area Derived from formula 1.77 m2 1.77 m2 [facility] [facility] Body weight 178.4 [lb_av] 178.4 [lb_av] eCW1 ([facility]) Body weight 80.9 kg 80.9 kg eCW1 ([facility]) Body height 60.5 [in_i] 60.5 [in_i] eCW1 ([facility]) Body mass index (BMI) [Ratio] 34.26 kg/m2 34.26 kg/m2 eCW1 ([facility]) Heart rate 72 /min 72 /min eCW1 ([facility]) Respiratory rate 18 /min 18 /min eCW1 ([facility]) Body temperature 97.6 [degF] 97.6 [degF] eCW1 ( [facility]) Systolic blood pressure 128 mm[Hg] 128 mm[Hg] e CW1 ([facility]) Diastolic blood pressure 70 mm[Hg] 70 mm[Hg] eCW1 ([facility]) Body weight 177 [lb_av] 177 [lb_av] eCW1 ([facility]) Diastolic blood pressure 70 mm[Hg] 70 mm[Hg] eCW1 ([facility]) Body height 60.5 [in_i] 60.5 [in_i] eCW1 ([facility]) Body mass index (BMI) [Ratio] 34.00 kg/m2 34.00 kg/m2 eCW1 ([facility]) Heart rate 72 /min 72 /min eCW1 ([facility]) Respiratory rate 18 /min 18 /min eCW1 ([facility]) Body temperature 96.6 [degF] 96.6 [degF] eCW1 ( [facility]) Systolic blood pressure 130 mm[Hg] 130 mm[Hg] e CW1 ([facility]) Systolic blood pressure 130 mm[Hg] 130 mm[Hg] M EDENT ([facility] ) Heart rate 85 /min 85 /min MEDENT ([facility] ) Body temperature 97.0 [degF] 97.0 [degF] MEDENT ([facility] ) Body height 60 [in_i] 60 [in_i] MEDENT ([facility] ) 5'0" Body weight 178.00 [lb_av] 178.00 [lb_av] MEDEN T ([facility] ) Body mass index (BMI) [Ratio] 34.8 kg/m2 34.8 k g/m2 MEDENT ([facility] ) Diastolic blood pressure 82 mm[Hg] 82 mm[Hg] MEDENT ([facility] ) Oxygen saturation in Arterial blood by Pulse oximetry 98 % 98 % MEDENT ([facility] ) Body weight 179.6 [lb_av] 179.6 [lb_av] eCW1 ([facility]) Body weight 81.4 kg 81.4 kg eCW1 ([facility]) Body height 60.5 [in_i] 60.5 [in_i] eCW1 ([facility]) Body mass index (BMI) [Ratio] 34.49 kg/m2 34.49 kg/m2 eCW1 ([facility]) Heart rate 67 /min 67 /min eCW1 ([facility]) Respiratory rate 18 /min 18 /min eCW1 ([facility]) Body temperature 97.0 [degF] 97.0 [degF] eCW1 ( [facility]) Systolic blood pressure 138 mm[Hg] 138 mm[Hg] e CW1 ([facility]) Diastolic blood pressure 72 mm[Hg] 72 mm[Hg] eCW1 ([facility]) Body weight 179 [lb_av] 179 [lb_av] eCW1 ([facility]) Body height 60.5 [in_i] 60.5 [in_i] eCW1 ([facility]) Body mass index (BMI) [Ratio] 34.38 kg/m2 34.38 kg/m2 eCW1 ([facility]) Heart rate 73 /min 73 /min eCW1 ([facility]) Respiratory rate 20 /min 20 /min eCW1 ([facility]) Body temperature 96.1 [degF] 96.1 [degF] eCW1 ( [facility]) Systolic blood pressure 130 mm[Hg] 130 mm[Hg] e CW1 ([facility]) Diastolic blood pressure 70 mm[Hg] 70 mm[Hg] eCW1 ([facility]) Body weight 180.0 [lb_av] 180.0 [lb_av] eCW1 ([facility]) Body height 60.5 [in_i] 60.5 [in_i] eCW1 ([facility]) Body mass index (BMI) [Ratio] 34.57 kg/m2 34.57 kg/m2 eCW1 ([facility]) Body weight 81.6 kg 81.6 kg eCW1 ([facility]) Heart rate 75 /min 75 /min eCW1 ([facility]) Respiratory rate 18 /min 18 /min eCW1 ([facility]) Body temperature 97.0 [degF] 97.0 [degF] eCW1 ( [facility]) Systolic blood pressure 132 mm[Hg] 132 mm[Hg] e CW1 ([facility]) Diastolic blood pressure 62 mm[Hg] 62 mm[Hg] eCW1 ([facility]) Diastolic blood pressure 80 mm[Hg] 80 mm[Hg] MEDENT ([facility]) Body temperature 96.2 [degF] 96.2 [degF] MEDENT ([facility]) Oxygen saturation in Arterial blood by Pulse oximetry 99 % 99 % MEDENT ([facility]) Systolic blood pressure 132 mm[Hg] 132 mm[Hg] M EDENT ([facility]) Heart rate 56 /min 56 /min MEDENT ([facility]) Body height 60 [in_i] 60 [in_i] MEDENT ([facility]) 5'0" Body weight 172.25 [lb_av] 172.25 [lb_av] MEDEN T ([facility]) Body mass index (BMI) [Ratio] 33.6 kg/m2 33.6 k g/m2 MEDENT ([facility]) Body weight 172 [lb_av] 172 [lb_av] eCW1 ([facility]) Body height 60.5 [in_i] 60.5 [in_i] eCW1 ([facility]) Body mass index (BMI) [Ratio] 33.03 kg/m2 33.03 kg/m2 eCW1 ([facility]) Heart rate 130 /min 130 /min eCW1 ([facility]) Respiratory rate 20 /min 20 /min eCW1 ([facility]) Body temperature 96.9 [degF] 96.9 [degF] eCW1 ( [facility]) Systolic blood pressure 120 mm[Hg] 120 mm[Hg] e CW1 ([facility]) Diastolic blood pressure 62 mm[Hg] 62 mm[Hg] eCW1 ([facility]) Patient Treatment Plan of Care Planned Activity Planned Date Details Description Data Source (s) 24 HR Diltiazem Hydrochloride 120 MG Extended Release Oral Capsule 01/06/2021 12:00:00 AM EDT [facility] Digoxin 0.125 MG Oral Tablet 01/06/2021 12:00:00 AM EDT [facility] Spironolactone 25 MG Oral Tablet 01/06/2021 12:00:00 AM EDT [facility] Levothyroxine Sodium 0.137 MG Oral Tablet 12/19/2020 12:00:00 AM ED T [facility] cefpodoxime 200 MG Oral Tablet 12/15/2020 12:00:00 AM EDT [facility] doxycycline hyclate 100 MG Oral Tablet 12/15/2020 12:00:00 AM EDT [facility] cefpodoxime 200 MG Oral Tablet 12/15/2020 12:00:00 AM EDT eCW1 ([facility]) doxycycline hyclate 100 MG Oral Tablet 12/15/2020 12:00:00 AM EDT eCW1 ([facility]) cefpodoxime 200 MG Oral Tablet 12/15/2020 12:00:00 AM EDT eCW1 ([facility]) doxycycline hyclate 100 MG Oral Tablet 12/15/2020 12:00:00 AM EDT eCW1 ([facility]) Levothyroxine Sodium 0.137 MG Oral Tablet 11/25/2020 12:00:00 AM ED T eCW1 ([facility]) Levothyroxine Sodium 0.112 MG Oral Tablet 11/25/2020 12:00:00 AM ED T [facility] Levothyroxine Sodium 0.137 MG Oral Tablet 11/25/2020 12:00:00 AM ED T eCW1 ([facility]) Levothyroxine Sodium 0.137 MG Oral Tablet 11/25/2020 12:00:00 AM ED T eCW1 ([facility]) Levothyroxine Sodium 0.137 MG Oral Tablet 11/25/2020 12:00:00 AM ED T eCW1 ([facility]) aminophylline injection 75 mg 11/24/2020 10:00:00 AM EDT [facility] 24 HR Diltiazem Hydrochloride 120 MG Extended Release Oral Capsule 11/11/2020 12:00:00 AM EDT [facility] Chlorthalidone 25 MG Oral Tablet 10/14/2020 12:00:00 AM EDT [facility] Bisoprolol Fumarate 10 MG Oral Tablet 10/14/2020 12:00:00 AM EDT [facility] Digoxin 0.125 MG Oral Tablet 10/11/2020 12:00:00 AM EDT [facility] Metoprolol Tartrate 100 MG Oral Tablet 10/07/2020 12:00:00 AM EDT [facility] Amoxicillin 500 MG / Clavulanate 125 MG Oral Tablet 10/06/19 12:00:00 AM EDT [facility] apixaban 5 MG Oral Tablet 09/21/2020 12:00:00 AM EDT [facility] Cyclosporine 0.5 MG/ML Ophthalmic Suspension [Restasis ] 09/15/2020 12:00:00 AM EDT [place] ([facility]) atorvastatin 80 MG Oral Tablet 08/24/2020 12:00:00 AM EDT [facility] Levothyroxine Sodium 0.15 MG Oral Tablet 08/04/2020 12:00:00 AM EDT [facility] Levothyroxine Sodium 0.15 MG Oral Tablet 08/04/2020 12:00:00 AM EDT eCW ([facility]) Methotrexate 2.5 MG Oral Tablet 08/03/2020 12:00:00 AM EDT [facility] Folic Acid 1 MG Oral Tablet 08/03/2020 12:00:00 AM EDT [facility] OneTouch Ultra test strip 07/27/2020 12:00:00 AM EDT [facility] Losartan Potassium 25 MG Oral Tablet 06/16/2020 12:00:00 AM EST [facility] Digoxin 0.125 MG Oral Tablet 06/09/2020 12:00:00 AM EST [facility] BD Insulin Syringe U/F 31G X 5/16" 1 ML MISC 05/12/2020 12:00:00 AM EST [facility] Methotrexate 2.5 MG Oral Tablet 04/30/2020 12:00:00 AM EST eCW1 ([facility]) Folic Acid 1 MG Oral Tablet 04/30/2020 12:00:00 AM EST eCW1 ([facility]) Methotrexate 2.5 MG Oral Tablet 04/30/2020 12:00:00 AM EST eCW1 ([facility]) Folic Acid 1 MG Oral Tablet 04/30/2020 12:00:00 AM EST eCW1 ([facility]) Methotrexate 2.5 MG Oral Tablet 04/30/2020 12:00:00 AM EST eCW1 ([facility]) Methotrexate 2.5 MG Oral Tablet 04/30/2020 12:00:00 AM EST eCW1 ([facility]) Folic Acid 1 MG Oral Tablet 04/30/2020 12:00:00 AM EST eCW1 ([facility]) Folic Acid 1 MG Oral Tablet 04/30/2020 12:00:00 AM EST eCW1 ([facility]) Methotrexate 2.5 MG Oral Tablet 04/30/2020 12:00:00 AM EST eCW1 ([facility]) Folic Acid 1 MG Oral Tablet 04/30/2020 12:00:00 AM EST eCW1 ([facility]) Methotrexate 2.5 MG Oral Tablet 04/30/2020 12:00:00 AM EST eCW1 ([facility]) Folic Acid 1 MG Oral Tablet 04/30/2020 12:00:00 AM EST eCW1 ([facility]) Folic Acid 1 MG Oral Tablet 04/30/2020 12:00:00 AM EST eCW1 ([facility]) Folic Acid 1 MG Oral Tablet 04/30/2020 12:00:00 AM EST eCW1 ([facility]) Methotrexate 2.5 MG Oral Tablet 04/30/2020 12:00:00 AM EST eCW1 ([facility]) Folic Acid 1 MG Oral Tablet 04/30/2020 12:00:00 AM EST eCW1 ([facility]) Methotrexate 2.5 MG Oral Tablet 04/30/2020 12:00:00 AM EST eCW1 ([facility]) Folic Acid 1 MG Oral Tablet 04/30/2020 12:00:00 AM EST eCW1 ([facility]) Methotrexate 2.5 MG Oral Tablet 04/30/2020 12:00:00 AM EST eCW1 ([facility]) Folic Acid 1 MG Oral Tablet 04/30/2020 12:00:00 AM EST eCW1 ([facility]) Methotrexate 2.5 MG Oral Tablet 04/30/2020 12:00:00 AM EST eCW1 ([facility]) Folic Acid 1 MG Oral Tablet 04/30/2020 12:00:00 AM EST eCW1 ([facility]) Methotrexate 2.5 MG Oral Tablet 04/30/2020 12:00:00 AM EST eCW1 ([facility]) Folic Acid 1 MG Oral Tablet 04/30/2020 12:00:00 AM EST eCW1 ([facility]) Methotrexate 2.5 MG Oral Tablet 04/30/2020 12:00:00 AM EST eCW1 ([facility]) Folic Acid 1 MG Oral Tablet 04/30/2020 12:00:00 AM EST eCW1 ([facility]) Methotrexate 2.5 MG Oral Tablet 04/30/2020 12:00:00 AM EST eCW1 ([facility]) Methotrexate 2.5 MG Oral Tablet 04/30/2020 12:00:00 AM EST eCW1 ([facility]) Eysuvis 0.25% Ophthalmic Suspension 04/28/2020 12:00:00 AM EST [place] (Reilly [facility]) Losartan Potassium 25 MG Oral Tablet 04/26/2020 12:00:00 AM EST eCW1 ([facility]) Losartan Potassium 25 MG Oral Tablet 04/26/2020 12:00:00 AM EST eCW1 ([facility]) Levothyroxine Sodium 0.125 MG Oral Tablet 04/26/2020 12:00:00 AM ES T eCW1 ([facility]) Losartan Potassium 25 MG Oral Tablet 04/26/2020 12:00:00 AM EST eCW1 ([facility]) Levothyroxine Sodium 0.125 MG Oral Tablet 04/26/2020 12:00:00 AM ES T eCW1 ([facility]) Levothyroxine Sodium 0.125 MG Oral Tablet 04/26/2020 12:00:00 AM ES T eCW1 ([facility]) Losartan Potassium 25 MG Oral Tablet 04/26/2020 12:00:00 AM EST eCW1 ([facility]) besifloxacin 6 MG/ML Ophthalmic Suspension [Besivance] 04/20/2020 12:00:00 AM EST [place] ([facility]) doxycycline hyclate 20 MG Oral Tablet 04/02/2020 12:00:00 AM EST [place] ([facility]) moxifloxacin 5 MG/ML Ophthalmic Solution 03/29/2020 12:00:00 AM EST [place] ([facility]) Erythromycin 0.005 MG/MG Ophthalmic Ointment 03/16/2020 12:00:00 AM EST [place] ([facility]) Polymyxin B 56671 UNT/ML / Trimethoprim 1 MG/ML Ophtha lmic Solution [Polytrim] 03/12/2020 12:00:00 AM EST [place] (Murali [facility]) moxifloxacin 5 MG/ML Ophthalmic Solution 03/12/2020 12:00:00 AM EST [place] ([facility]) Levothyroxine Sodium 0.112 MG Oral Tablet 03/08/2020 12:00:00 AM ES T eCW1 ([facility]) Levothyroxine Sodium 0.112 MG Oral Tablet 03/08/2020 12:00:00 AM ES T eCW1 ([facility]) Levothyroxine Sodium 0.112 MG Oral Tablet 03/08/2020 12:00:00 AM ES T eCW1 ([facility]) Metoprolol Tartrate 100 MG Oral Tablet 03/04/2020 12:00:00 AM EST [facility] apixaban 5 MG Oral Tablet 03/04/2020 12:00:00 AM EST [facility] Dexamethasone 1 MG/ML / Tobramycin 3 MG/ML Ophthalmic Suspension [Tobradex] 02/11/2020 12:00:00 AM EDT [place] (Murali [facility]) Spironolactone 25 MG Oral Tablet 01/12/2020 12:00:00 AM EDT [facility] Furosemide 20 MG Oral Tablet 12/30/2019 12:00:00 AM EDT [facility] Dexamethasone 1 MG/ML / Tobramycin 3 MG/ML Ophthalmic Suspension [Tobradex] 10/01/2019 12:00:00 AM EDT [place] ([facility]i [facility]) Erythromycin 0.005 MG/MG Ophthalmic Ointment 10/01/2019 12:00:00 AM EDT [place] ([facility]) fluticasone (FLONASE) 50 MCG/ACT nasal spray 06/03/2019 12:00:00 AM EST [facility] Potassium Chloride 20 MEQ Extended Release Oral Tablet 05/26/2019 12:00:00 AM EST [facility] Bisoprolol Fumarate 10 MG Oral Tablet [facility] Chlorthalidone 25 MG Oral Tablet [facility] Hydrochlorothiazide 25 MG Oral Tablet [facility] Bisoprolol Fumarate 10 MG / Hydrochlorothiazide 6.25 MG Oral Tablet [facility] Levothyroxine Sodium 0.1 MG Oral Tablet [facility]
[2021-02-04 12:15] LABS: BASO % 0.1 % (0.0-1.0); EOS % 0.2 % (0.0-3.0); HEMATOCRIT 40.6 % (36.0-47.0); HEMOGLOBIN 12.9 g/dl (12.0-15.5); LYMPH # 1.4 10^3/uL (1.5-5.0); LYMPH % 16.3 % (24.0-44.0); MEAN CORPUSCULAR HEMOGLOBIN 29.5 pg (27.0-33.0); MEAN CORPUSCULAR HGB CONC 31.8 g/dl (32.0-36.5); MEAN CORPUSCULAR VOLUME 92.7 fl (80.0-96.0); MONO # 0.6 10^3/uL (0.0-0.8); MONO % 7.4 % (2.0-8.0); NEUTROPHILS # 6.4 10^3/uL (1.5-8.5); NEUTROPHILS % 75.8 % (36.0-66.0); PLATELET COUNT, AUTOMATED 161 10^3/uL (150-450); RED BLOOD COUNT 4.38 10^6/uL (4.00-5.40); WHITE BLOOD COUNT 8.4 10^3/uL (4.0-10.0)
--- NOTE | 2021-02-04 12:37 | REP ---
INDICATION: DYSPNEA/COUGH COMPARISON: 01/03/2021 TECHNIQUE: Portable AP view of the chest FINDINGS: Mediastinum and cardiac silhouette are within normal limits and stable. Chronic changes are noted with moderate superimposed bilateral opacities. Differential includes multifocal pneumonia and COVID-19 pulmonary disease. No effusion. No pneumothorax. Pacemaker stable. Skeletal structures intact. IMPRESSION: Moderate bilateral infiltrates. Differential diagnosis includes multifocal pneumonia and COVID-19 pulmonary disease. <Electronically signed by Jc Morel > 02/04/21 [id number]
[2021-02-04 12:47] LABS: ALBUMIN 3.1 GM/DL (3.2-5.2); ALT/SGPT 56 U/L (12-78); BILIRUBIN,DIRECT 0.2 MG/DL (0.0-0.2); BILIRUBIN,TOTAL 0.6 MG/DL (0.2-1.0); BLOOD UREA NITROGEN 26 MG/DL (7-18); CALCIUM LEVEL 8.6 MG/DL (8.8-10.2); CARBON DIOXIDE LEVEL 25 MEQ/L (21-32); CHLORIDE LEVEL 113 MEQ/L (98-107); CK-MB VALUE MASS < 1.0 NG/ML (<3.6); CPK CREATINE PHOSPHOKINASE 126 U/L (26-192); CREATININE FOR GFR 1.41 MG/DL (0.55-1.30); GLOMERULAR FILTRATION RATE 38.9 (>39); GLUCOSE, FASTING 93 MG/DL (70-100); MB/CK RELATIVE INDEX 0.79 (< OR =4); NT-PRO BNP 4568 PG/ML (<125); SODIUM LEVEL 143 MEQ/L (136-145); TOTAL PROTEIN 5.6 GM/DL (6.4-8.2); TROPONIN I 0.02 NG/ML (< 0.10)
--- OUTSIDE RECORDS SUMMARY | 2021-02-04 14:34 | CCD ---
Author Author [facility] Organization [facility] Address Unknown Phone Unavailable Care Team Providers Care Winder Contort Operator Name Role Phone Hemanth Kahn Annia RPA [...] Unavailable Unavailable Kael Huertaatt PA Unavailable Unavailable aKel Huertaatt PA Unavailable Unavailable Kael Huertaatt PA [...] MD Unavailable Unavaila ble PARTH, B TJ CHILDREN'S ATTENDANT Unavailable Unavailable PARTH, B TJ CHILDREN'S ATTENDANT Unavailable Unavailable PARTH, B TJ CHILDREN'S ATTENDANT Unavailable Unavailable PARTH, B TJ CHILDREN'S ATTENDANT Unavailable Unavailable PARTH, B TJ CHILDREN'S ATTENDANT Unavailable Unavailable PARTH, B TJ CHILDREN'S ATTENDANT Unavailable Unavailable PARTH, B TJ CHILDREN'S ATTENDANT Unavailable Unavailable PARTH, B TJ CHILDREN'S ATTENDANT Unavailable Unavailable PARTH, B TJ CHILDREN'S ATTENDANT Unavailable Unavailable PARTH, B TJ CHILDREN'S ATTENDANT Unavailable Unavailable PARTH, B TJ CHILDREN'S ATTENDANT Unavailable Unavailable PARTH, B TJ CHILDREN'S ATTENDANT Unavailable Unavailable PARTH, B TJ CHILDREN'S ATTENDANT Unavailable Unavailable PARTH, B TJ CHILDREN'S ATTENDANT Unavailable Unavailable PARTH, B TJ CHILDREN'S ATTENDANT Unavailable Unavailable PARTH, B TJ CHILDREN'S ATTENDANT Unavailable Unavailable PARTH, B TJ CHILDREN'S ATTENDANT Unavailable Unavailable PARTH, B TJ CHILDREN'S ATTENDANT Unavailable Unavailable PARTH, B TJ CHILDREN'S ATTENDANT Unavailable Unavailable PARTH, B TJ CHILDREN'S ATTENDANT Unavailable Unavailable PARTH, B TJ CHILDREN'S ATTENDANT Unavailable Unavailable PARTH, B TJ CHILDREN'S ATTENDANT Unavailable Unavailable PARTH, B TJ CHILDREN'S ATTENDANT Unavailable Unavailable PARTH, B TJ CHILDREN'S ATTENDANT Unavailable Unavailable PARTH, B TJ CHILDREN'S ATTENDANT Unavailable Unavailable PARTH, B TJ CHILDREN'S ATTENDANT Unavailable Unavailable PARTH, B TJ CHILDREN'S ATTENDANT Unavailable Unavailable PARTH, B TJ CHILDREN'S ATTENDANT Unavailable Unavailable PARTH, B TJ CHILDREN'S ATTENDANT Unavailable Unavailable PARTH, B TJ CHILDREN'S ATTENDANT Unavailable Unavailable PARTH, B TJ CHILDREN'S ATTENDANT Unavailable Unavailable PARTH, B TJ CHILDREN'S ATTENDANT Unavailable Unavailable PARTH, B TJ CHILDREN'S ATTENDANT Unavailable Unavailable PARTH, B TJ CHILDREN'S ATTENDANT Unavailable Unavailable PARTH, B TJ CHILDREN'S ATTENDANT Unavailable Unavailable PARTH, B TJ CHILDREN'S ATTENDANT Unavailable Unavailable PARTH, B TJ CHILDREN'S ATTENDANT Unavailable Unavailable PARTH, B TJ CHILDREN'S ATTENDANT Unavailable Unavailable PARTH, B TJ CHILDREN'S ATTENDANT Unavailable Unavailable PARTH, B TJ CHILDREN'S ATTENDANT Unavailable Unavailable PARTH, B TJ CHILDREN'S ATTENDANT Unavailable Unavailable PARTH, B TJ CHILDREN'S ATTENDANT Unavailable Unavailable PARTH, B TJ CHILDREN'S ATTENDANT Unavailable Unavailable PARTH, B TJ CHILDREN'S ATTENDANT Unavailable Unavailable PARTH, B TJ CHILDREN'S ATTENDANT Unavailable Unavailable PARTH, B TJ CHILDREN'S ATTENDANT Unavailable Unavailable PARTH, B TJ CHILDREN'S ATTENDANT Unavailable Unavailable PARTH, B TJ CHILDREN'S ATTENDANT Unavailable Unavailable PARTH, B TJ CHILDREN'S ATTENDANT Unavailable Unavailable PARTH, B TJ CHILDREN'S ATTENDANT Unavailable Unavailable APRTH, B TJ CHILDREN'S ATTENDANT Unavailable Unavailable PARTH, B TJ CHILDREN'S ATTENDANT Unavailable Unavailable PARTH, B TJ CHILDREN'S ATTENDANT Unavailable Unavailable PARTH, B TJ CHILDREN'S ATTENDANT Unavailable Unavailable PARTH, B TJ CHILDREN'S ATTENDANT Unavailable Unavailable PARTH, B TJ CHILDREN'S ATTENDANT Unavailable Unavailable PARTH, B TJ CHILDREN'S ATTENDANT Unavailable Unavailable PARTH, B TJ CHILDREN'S ATTENDANT Unavailable Unavailable PARTH, B TJ CHILDREN'S ATTENDANT Unavailable Unavailable PARTH, B TJ CHILDREN'S ATTENDANT Unavailable Unavailable PARTH, B TJ CHILDREN'S ATTENDANT Unavailable Unavailable PARTH, B TJ CHILDREN'S ATTENDANT Unavailable Unavailable Jimmie Webb MD Unavailable Unavailable Jimmie Webb MD Unavailable Unavailable Jimmie Webb MD Unavailable Unavailable Jimmie Webb MD Unavailable Unavailable Jimmei Webb MD Unavailable Unavailable Jimmie Webb MD [...] Thomas PA Unavailable Unavailable Fons, M Lauren NIGHT GUARD Unavailable Unavailable Fons, M Lauren NIGHT GUARD Unavailable Unavailable Fons, M Lauren NIGHT GUARD Unavailable Unavailable Fons, M Lauren NIGHT GUARD Unavailable Unavailable Fons, M Lauren NIGHT GUARD Unavailable Unavailable Fons, M Lauren NIGHT GUARD Unavailable Unavailable Fons, M Lauren NIGHT GUARD Unavailable Unavailable Fons, M Lauren NIGHT GUARD Unavailable Unavailable Fons, M Lauren NIGHT GUARD Unavailable Unavailable Fons, M Lauren NIGHT GUARD Unavailable Unavailable Fons, M Lauren NIGHT GUARD Unavailable Unavailable Fons, M Lauren NIGHT GUARD Unavailable Unavailable Fons, M Lauren NIGHT GUARD Unavailable Unavailable Fons, M Lauren NIGHT GUARD Unavailable Unavailable Fons, M Lauren NIGHT GUARD Unavailable Unavailable Fons, M Lauren NIGHT GUARD Unavailable Unavailable Fons, M Lauren NIGHT GUARD Unavailable Unavailable Fons, M Lauren NIGHT GUARD Unavailable Unavailable Fons, M Lauren NIGHT GUARD Unavailable Unavailable Fons, M Lauren NIGHT GUARD Unavailable Unavailable Fons, M Lauren NIGHT GUARD Unavailable Unavailable Fons, M Lauren NIGHT GUARD Unavailable Unavailable Fons, M Lauren NIGHT GUARD Unavailable Unavailable Fons, M Lauren NIGHT GUARD Unavailable Unavailable Fons, M Lauren NIGHT GUARD Unavailable Unavailable Fons, M Lauren NIGHT GUARD Unavailable Unavailable Fons, M Lauren NIGHT GUARD Unavailable Unavailable Fons, M Lauren NIGHT GUARD Unavailable Unavailable Fons, M Lauren NIGHT GUARD Unavailable Unavailable Fons, M Lauren NIGHT GUARD Unavailable Unavailable Fons, M Lauren NIGHT GUARD Unavailable Unavailable Fons, M Lauren NIGHT GUARD Unavailable Unavailable Fons, M Lauren NIGHT GUARD Unavailable Unavailable Fons, M Lauren NIGHT GUARD Unavailable Unavailable Fons, M Lauren NIGHT GUARD Unavailable Unavailable Fons, M Lauren NIGHT GUARD Unavailable Unavailable Fons, M Lauren NIGHT GUARD Unavailable Unavailable Fons, M Lauren NIGHT GUARD Unavailable Unavailable Fons, M Lauren NIGHT GUARD Unavailable Unavailable Fons, M Lauren NIGHT GUARD Unavailable Unavailable Fons, M Lauren NIGHT GUARD Unavailable Unavailable Fons, M Lauren NIGHT GUARD Unavailable Unavailable Fons, M Lauren NIGHT GUARD Unavailable Unavailable Fons, M Lauren NIGHT GUARD Unavailable Unavailable Fons, M Lauren NIGHT GUARD Unavailable Unavailable Fons, M Lauren NIGHT GUARD Unavailable Unavailable Fons, M Lauren NIGHT GUARD Unavailable Unavailable Fons, M Lauren NIGHT GUARD Unavailable Unavailable Fons, M Lauren NIGHT GUARD Unavailable Unavailable Fons, M Lauren NIGHT GUARD Unavailable Unavailable Fons, M Lauren NIGHT GUARD Unavailable Unavailable Fons, M Lauren NIGHT GUARD Unavailable Unavailable Fons, M Lauren NIGHT GUARD Unavailable Unavailable Sheila, V ROSAMARIA PA-C Unavailable Unavailable [place], V ROSAMARIA PA-C Unavailable Unavailable [place], V ROSAMARIA PA-C Unavailable Unavailable Sheila, V ROSAMARIA PA-C Unavailable Unavailable [place], V ROSAMARIA PA-C Unavailable Unavailable [place], V ROSAMARIA PA-C Unavailable Unavailable Sheila, V ROSAMARIA PA-C Unavailable Unavailable [place], V ROSAMARIA PA-C Unavailable Unavailable [place], V ROSAMARIA PA-C Unavailable Unavailable [place], V ROSAMARIA PA-C Unavailable Unavailable Sheila, V [...] is protected by Article 27-F of the [facility] Public Health law. If you continue you may have access to information: Regarding HIV / AIDS; Provided by facilities licensed or operated by the [facility] Office of Mental Health; or Provided by the [facility] Office for People With Developmental Disabilities. If such information is present, then the following [facility] mandated warning applies: This information has been [...] law may result in a fine or residential sentence or both. A general authorization for the release of medical or other information is NOT sufficient authorization for further disc losure. Family History Family Member Name Family Member Gender Family Member Status Date o f Status Description Data Source(s) Unknown Unknown Problem [facility] ([facility], ) Encounters Encounter Providers Location Date Indications Data Source(s ) Outpatient Attender: Lauren BARTH 02/03/2021 12:00:00 AM EDT [facility] Unknown [address] [facility] [id number] 01/27/2021 12:00:00 AM EDT eCW1 ([facility]ly [facility]) Outpatient [address] [facility] [address] 01/27/2021 12:00:00 AM EDT eCW1 ([facility]) Unknown [address] [facility] [address] 01/20/2021 12:00:00 AM EDT eCW1 ([facility]) Outpatient [id number] 01/19/2021 12:46:39 PM EDT [facility] Outpatient Attender: Lauren BILLSBRIGID 01/19/2021 12:00:00 AM EDT [facility] Outpatient Referrer: Micheal Arguello MD 01/12/2021 08:22:1 4 AM EDT [facility] Outpatient Attender: Micheal Arguello MD [facility] Cardiology Asso ciates 01/06/2021 04:00:00 PM EDT [facility] ([facility]) [place] [address] [address] 01/03/2021 12:00:00 AM EDT eCW1 ([facility]) [place] [address] [facility] [address] 01/03/2021 12:00:00 AM EDT eCW1 ([facility]) Unknown [address] [address] 01/03/2021 12:00:00 AM EDT eCW1 ([facility]) [place]patient [address] [address] 12/20/2020 12:00:00 AM EDT eCW1 ([facility]) Outpatient Attender: ROSAMARIA ÁLVAREZP.BRIGID-SJP.BRIGID 12:00:00 AM EDT - 12/16/2020 10:48:46 AM EDT [facility] Unknown [address] [facility] [address] 12/15/2020 12:00:00 AM EDT eCW1 ([facility]) [place] [address] [facility] [address] 12/13/2020 12:00:00 AM EDT eCW1 ([facility]) Outpatient Attender: Jimmie Vargas/Tracey/Serge/Yeimi nichols 12/06/2020 10:40:00 AM EDT [facility] ([facility]) [place] [address] [address] 11/25/2020 12:00:00 AM EDT eCW1 ([facility]) Outpatient Referrer: Martha JOHNSTON.BRIGID-SJP.BRIGID 07/2020 07:56:48 AM EDT [facility] Outpatient SJP.BRIGID-SJP 11/20/2020 06:57:15 PM EDT [facility] Outpatient Attender: ROSAMARIA JOHNSTON.BRIGID-SJP.BRIGID 12:00:00 AM EDT - 11/11/2020 02:31:36 PM EDT [facility] Outpatient SJP.BRIGID-SJP.BRIGID 11/11/2020 12:00:00 AM EDT [facility] Outpatient Attender: TJ ALBA NP Physical Therapy 01:15:00 PM EDT [facility] ([facility] ) <td ID="encounterTypeDescriptionID0">TRI AGE NON URGENT</td><td>Dmitry Torres DO</td><td>Reilly Burks MD [facility]</td><td>11/09/2020</td><td>9:15AM</td><td>11:09AM</td><td><content ID="encounterDiagnosisID0-0">Hypotony of Eye</content>, <content ID="encounterDiagnosisID0-1">Conjunctival Concretions</content>, <content ID="encounterDiagnosisID0-2">Blepharitis Squamous</content>, <content ID="encounterDiagnosisID0-3">Dry Eye Syndrome Right Eye</content>, <content ID="encounterDiagnosisID0-4">Phthisis Bulbi Left Eye</content>, <content ID="encounterDiagnosisID0-5">Corneal Opacity</content></td>Outpatient Attender: DMITRY Santacruz MD PLL 11/09/2020 09:15:00 AM EDT - 11/09/2020 11:09:00 AM EDT Phthisis Bulbi Left EyePhthisis Bulbi Le ft EyePhthisis Bulbi Left EyePhthisis Bulbi Left EyeCorneal OpacityCorneal OpacityCorneal OpacityCorneal OpacityDry Eye Syndrome Right EyeDry Eye Syndrome Right EyeDry Eye Syndrome Right EyeDry Eye Syndrome Right EyeConjunctival ConcretionsHypotony of EyeConjunctival ConcretionsHypotony of EyeConjunctival ConcretionsHypotony of EyeConjunctival ConcretionsHypotony of EyeBlepharitis SquamousBlepharitis SquamousBlepharitis SquamousBlepharitis Squamous RODDY (Reilly Hebert MD [facility]) Phthisis Bulbi Left Eye Phthisis Bulbi [...] Vargas/Tracey/Serge/Yeimi nichols 11/08/2020 01:40:00 PM EDT [facility] ([facility]) Outpatient Attender: Norris STEWART Physical Therapy 10:15:00 AM EDT [facility] ([facility]) Outpatient [address] [facility] [place] [address] 10/22/2020 12:00:00 AM EDT eCW1 ([facility]) Unknown [address] [facility] [place] [address] 10/21/2020 12:00:00 AM EDT eCW1 ([facility]) Outpatient Attender: CESILIA STEWART Main Office 10/18/2020 0 9:30:00 AM EDT [facility] ([facility]) Outpatient Referrer: ROSAMARIA CHOE-SJP.BRIGID 12:00:00 AM EDT [facility] Outpatient Attender: ROSAMARIA CHOE-SJP.BRIGID 02:30:47 PM EDT - 10/14/2020 03:33:57 PM EDT [facility] Outpatient Attender: ROSAMARIA ARAGONBRIGID-SJP.BRIGID 02:56:51 PM EDT - 10/11/2020 03:49:36 PM EDT [facility] Outpatient CT-SJP.SYR 10/11/2020 01:45:33 PM EDT [facility] Outpatient Attender: Reilly Cueva/Tracey/Serge/Azael ndl 10/07/2020 09:00:00 AM EDT [facility] ([facility]) Outpatient Attender: Jimmie Vargas/Tracey/Serge/Reind simone 10/05/2020 01:00:00 PM EDT [facility] [place] [address] [facility] [address] 10/04/2020 12:00:00 AM EDT eCW1 ([facility]) Outpatient Attender: Martha ARAGONBRIGID-SJP.BRIGID 01/2021 12:00:00 AM EDT - 10/08/2020 10:43:05 AM EDT [facility] Unknown [address] [facility] [address] 09/16/2020 12:00:00 AM EDT eCW1 ([facility]) Outpatient<td ID="encounterTypeDescripti onID1">2 Month Follow up</td><td>Dmitry Torres DO</td><td>Reilly Burks MD [facility]</td><td>09/14/2020</td><td>7:16AM</td><td>8:10AM</td><td><content ID="encounterDiagnosisID1-0">Hypotony of Eye</content>, <content ID="encounterDiagnosisID1-1">Conjunctival Concretions</content>, <content ID="encounterDiagnosisID1-2">Blepharitis Squamous</content>, <content ID="encounterDiagnosisID1-3">Dry Eye Syndrome Right Eye</content>, <content ID="encounterDiagnosisID1-4">Phthisis Bulbi Left Eye</content>, <content ID="encounterDiagnosisID1-5">Corneal Opacity</content></td> Attender: DMITRY Santacruz MD [facility] 09/14/2020 07:16:00 AM EDT - 09/14/2020 08:10:00 AM EDT Phthisis Bulbi Left EyePhthisis Bulbi Le ft EyePhthisis Bulbi Left EyePhthisis Bulbi Left EyePhthisis Bulbi Left EyeCorneal OpacityCorneal OpacityCorneal OpacityCorneal OpacityCorneal OpacityDry Eye Syndrome Right EyeDry Eye Syndrome Right EyeDry Eye Syndrome Right EyeDry Eye Syndrome Right EyeDry Eye Syndrome Right EyeConjunctival ConcretionsHypotony of EyeConjunctival ConcretionsHypotony of EyeConjunctival ConcretionsHypotony of EyeConjunctival ConcretionsHypotony of EyeConjunctival ConcretionsHypotony of EyeBlepharitis SquamousBlepharitis SquamousBlepharitis SquamousBlepharitis SquamousBlepharitis Squamous RODDY (Reilly Hebert MD [facility]) Phthisis Bulbi Left Eye Phthisis Bulbi [...] Jimmie Vargas/Tracey/Serge/Yeimi nichols 09/09/2020 03:10:[address] [facility] Outpatient<td ID="encounterTypeDescripti onID2">TRIAGE NON URGENT</td><td>Reilly Burks MD, FACS</td><td>[facility]</td><td>09/02/2020</td><td>7:16AM</td><td>7:58AM</td><td><content ID="encounterDiagnosisID2-0">Lacrimal Stenosis Nasolacrimal Duct Acquired</content>, <content ID="encounterDiagnosisID2-1">Conjunctivitis Acute Bacterial</content></td> Attender: Reilly Hebert MD, FACS [facility] 09/02/2020 07:16:00 AM EDT - 09/02/2020 07:58:00 AM ED T Conjunctivitis Acute BacterialLacrimal Stenosis Nasolacrimal Duct AcquiredConjunctivitis Acute BacterialLacrimal Stenosis Nasolacrimal Duct AcquiredConjunctivitis Acute BacterialLacrimal Stenosis Nasolacrimal Duct AcquiredConjunctivitis Acute BacterialLacrimal Stenosis Nasolacrimal Duct AcquiredConjunctivitis Acute BacterialLacrimal Stenosis Nasolacrimal Duct Acquired RODDY (Reilly Hebert MD [facility]) Conjunctivitis Acute Bacterial Lacrimal Stenosis Nasolacrimal Duct Acqu ired Conjunctivitis Acute Bacterial Lacrimal Stenosis Nasolacrimal Duct Acqu ired Conjunctivitis Acute Bacterial Lacrimal Stenosis Nasolacrimal Duct Acqu ired Conjunctivitis Acute Bacterial Lacrimal Stenosis Nasolacrimal Duct Acqu ired Conjunctivitis Acute Bacterial Lacrimal Stenosis Nasolacrimal Duct Acqu ired Office Visit Attender: Jimmie Vargas/Tracey/Serge/Reind l 08/31/2020 09:00:00 AM EDT [facility] ([facility]) Unknown [address] [facility] [address] 08/24/2020 12:00:00 AM EDT eCW1 ([facility]) Outpatient Attender: Jimmie Vargas/Tracey/Serge/Ritad l 08/19/2020 08:20:00 AM EDT [facility] ([facility]) Outpatient [address] [facility] [place] [address] 08/19/2020 12:00:00 AM EDT eCW1 ([facility]) Unknown [address] [facility] [place] [address] 08/18/2020 12:00:00 AM EDT eCW1 ([facility]) Outpatient Attender: ROSAMARIA JOHNSTON.BRIGID-SJP.BRIGID 12:00:00 AM EDT - 08/17/2020 09:06:19 AM EDT [facility] Unknown [address] [facility] [address] 08/04/2020 12:00:00 AM EDT eCW1 ([facility]) Outpatient Attender: TJ ALBA NP Physical Therapy 02:15:00 PM EDT [facility] ([facility]) Outpatient Attender: Jimmie Vargas/Tracey/Serge/Yeimi nichols 07/19/2020 08:00:00 AM EDT [facility] ([facility]) <td ID="encounterTypeDescriptionID3">LAC RIMAL IRRIGATION & PROBING IN OFFICE Global 10 day</td><td>Dmitry Torres DO</td><td>Reilly Burks MD [facility]</td><td>07/16/2020</td><td>7:25AM</td><td>8:13AM</td><td><content ID="encounterDiagnosisID3-0">Conjunctival Concretions</content>, <content ID="encounterDiagnosisID3-1">Hypotony of Eye</content>, <content ID="encounterDiagnosisID3-2">Blepharitis Squamous</content>, <content ID="encounterDiagnosisID3-3">Dry Eye Syndrome Right Eye</content>, <content ID="encounterDiagnosisID3-4">Phthisis Bulbi Left Eye</content>, <content ID="encounterDiagnosisID3-5">Corneal Opacity</content>, <content ID="encounterDiagnosisID3-6">Lacrimal Stenosis Nasolacrimal Duct Acquired</content></td>Outpatient Attender: DMITRY Solitario MD [facility] 07/16/2020 07:25:00 AM EDT - 07/16/2020 [...] SquamousBlepharitis SquamousBlepharitis Squamous RODDY (Reilly Hebert MD [facility]) Lacrimal Stenosis Nasolacrimal Duct Acqu ired [...] MINUTES Attender: Terry santoro MD Physical Therapy 07/12/2020 01:30:00 PM EDT [facility] ([facility]) Outpatient Attender: Annia Vargas/Tracey/Hemanth zarate/Latricia 07/09/2020 11:15:00 AM EDT [facility] ([facility]) Unknown [address] [facility], [facility] [address] 06/29/2020 12:00:00 AM EST eCW1 ([facility]) Unknown [address], [facility] [address] 06/29/2020 12:00:00 AM EST eCW1 ([facility]) Unknown [address], [facility] [address] 06/28/2020 12:00:00 AM EST eCW1 ([facility]) Office Visit, Est Pt., Level 4 [address] [place] [address] 06/28/2020 12:00:00 AM EST eCW1 ([facility]) <td ID="encounterTypeDescriptionID4">1 M ont Follow-Up</td><td>Dmitry Torres DO</td><td>Reilly Burks MD [facility]</td><td>06/15/2020</td><td>7:16AM</td><td>8:00AM</td><td><content ID="encounterDiagnosisID4-0">Hypotony of Eye</content>, <content ID="encounterDiagnosisID4-1">Conjunctival Concretions</content>, <content ID="encounterDiagnosisID4-2">Blepharitis Squamous</content>, <content ID="encounterDiagnosisID4-3">Dry Eye Syndrome Right Eye</content>, <content ID="encounterDiagnosisID4-4">Phthisis Bulbi Left Eye</content>, <content ID="encounterDiagnosisID4-5">Corneal Opacity</content>, <content ID="encounterDiagnosisID4-6">Epiphora Due To Excess Lacrimation</content></td>Outpatient Attender: DMITRY Solitario MD [facility] 06/15/2020 07:16:00 AM EST - 06/15/2020 08:00:00 AM ES T Epiphora Due To Excess LacrimationPhthisis Bulbi Left EyeEpiphora Due To Excess LacrimationPhthisis Bulbi Left EyeEpiphora Due To Excess LacrimationPhthisis Bulbi Left EyeEpiphora Due To Excess LacrimationPhthisis Bulbi Left EyeEpiphora Due To Excess LacrimationPhthisis Bulbi Left EyeEpiphora Due To Excess LacrimationPhthisis Bulbi Left EyeEpiphora Due To Excess LacrimationPhthisis Bulbi Left EyeCorneal OpacityCorneal OpacityCorneal OpacityCorneal Opacity Corneal OpacityCorneal OpacityCorneal [...] SquamousBlepharitis SquamousBlepharitis Squamous RODDY (Reilly Hebert MD [facility]) Epiphora Due To Excess Lacrimation Phthisis [...] Squamous Blepharitis Squamous Blepharitis Squamous [place] [address] [facility] [place] [address] 06/11/2020 12:00:00 AM EST eCW1 ([facility]) Unknown [address] [facility] [address] 06/07/2020 12:00:00 AM EST eCW1 ([facility]) Outpatient [address] [address] 05/24/2020 12:00:00 AM EST eCW1 ([facility]) <td ID="encounterTypeDescriptionID5">2 W [place] Follow-Up</td><td>Dmitry Torres DO</td><td>Reilly Burks MD [facility]</td><td>05/13/2020</td><td>7:16AM</td><td>8:11AM</td><td><content ID="encounterDiagnosisID5-0">Hypotony of Eye</content>, <content ID="encounterDiagnosisID5-1">Corneal Degeneration Recurrent Erosion</content>, <content ID="encounterDiagnosisID5-2">Conjunctival Concretions</content>, <content ID="encounterDiagnosisID5-3">Blepharitis Squamous</content>, <content ID="encounterDiagnosisID5-4">Dry Eye Syndrome Right Eye</content>, <content ID="encounterDiagnosisID5-5">Phthisis Bulbi Left Eye</content>, <content ID="encounterDiagnosisID5-6">Corneal Opacity</content></td>Outpatient Attender: DMITRY Santacruz MD [facility] 05/13/2020 07:16:00 AM EST - 05/13/2020 [...] SquamousBlepharitis SquamousBlepharitis Squamous RODDY (Reilly Hebert MD [facility]) Phthisis Bulbi Left Eye Corneal Degeneration [...] NP Physical Therapy 02:15:00 PM EST [facility] ([facility]) Unknown [address] [facility] [address] 05/04/2020 12:00:00 AM EST eCW1 ([facility]) Unknown [address] [address] 04/30/2020 12:00:00 AM EST eCW1 ([facility]) Office Visit, Est Pt., Level 4 [address] [place] [address] 04/30/2020 12:00:00 AM EST eCW1 ([facility]) <td ID="encounterTypeDescriptionID6">1 [place] Follow-Up</td><td>Dmitry Torres DO</td><td>Reilly Burks MD [facility]</td><td>04/28/2020</td><td>7:30AM</td><td>8:23AM</td><td><content ID="encounterDiagnosisID6-0">Hypotony of Eye</content>, <content ID="encounterDiagnosisID6-1">Corneal Degeneration Recurrent Erosion</content>, <content ID="encounterDiagnosisID6-2">Blepharitis Squamous</content>, <content ID="encounterDiagnosisID6-3">Dry Eye Syndrome Right Eye</content>, <content ID="encounterDiagnosisID6-4">Phthisis Bulbi Left Eye</content>, <content ID="encounterDiagnosisID6-5">Corneal Opacity</content>, <content ID="encounterDiagnosisID6-6">Conjunctival Concretions</content></td>Outpatient Attender: DMITRY Santacruz MD [facility] 04/28/2020 07:30:00 AM EST - 04/28/2020 [...] SquamousBlepharitis SquamousBlepharitis Squamous [place]OD[place] (Reilly Hebert MD [facility]) Phthisis Bulbi Left Eye Corneal Degeneration [...] Squamous Blepharitis Squamous Blepharitis Squamous [place]patient [address] [facility] [address] 04/26/2020 12:00:00 AM EST eCW1 (Formerly [facility]) Outpatient<td ID="encounterTypeDescripti onID7">1 Week Follow-Up</td><td>Dmitry Torres DO</td><td>Reilly Burks MD [facility]</td><td>04/20/2020</td><td>7:26AM</td><td>8:52AM</td><td><content ID="encounterDiagnosisID7-0">Hypotony of Eye</content>, <content ID="encounterDiagnosisID7-1">Corneal Degeneration Recurrent Erosion</content>, <content ID="encounterDiagnosisID7-2">Blepharitis Squamous</content>, <content ID="encounterDiagnosisID7-3">Dry Eye Syndrome Right Eye</content>, <content ID="encounterDiagnosisID7-4">Phthisis Bulbi Left Eye</content>, <content ID="encounterDiagnosisID7-5">Corneal Opacity</content></td> Attender: DMITRY Santacruz MD [facility] 04/20/2020 07:26:00 AM EST - 04/20/2020 [...] Degeneration Recurrent Erosion RODDY (Reilly Hebert MD [facility]) Phthisis Bulbi Left Eye Corneal Degeneration [...] New Pt., Level 4 PC [address] [place] [address] 04/19/2020 12:00:00 AM EST eCW1 ([facility]) Unknown [address] [facility] [address] 04/19/2020 12:00:00 AM EST eCW1 ([facility]ly [facility]) Unknown [address] [facility] [address] 04/09/2020 12:00:00 AM EST eCW1 (Formerly [facility]) Outpatient<td ID="encounterTypeDescripti onID8">1 Week Follow-Up</td><td>Dmitry Torres DO</td><td>Reilly Burks MD [facility]</td><td>04/08/2020</td><td>7:40AM</td><td>8:50AM</td><td><content ID="encounterDiagnosisID8-0">Hypotony of Eye</content>, <content ID="encounterDiagnosisID8-1">Corneal Degeneration Recurrent Erosion</content>, <content ID="encounterDiagnosisID8-2">Blepharitis Squamous</content>, <content ID="encounterDiagnosisID8-3">Dry Eye Syndrome Right Eye</content>, <content ID="encounterDiagnosisID8-4">Phthisis Bulbi Left Eye</content>, <content ID="encounterDiagnosisID8-5">Corneal Opacity</content></td> Attender: DMITRY Santacruz MD [facility] 04/08/2020 07:40:00 AM EST - 04/08/2020 [...] Degeneration Recurrent Erosion RODDY (Reilly Hebert MD [facility]) Corneal Opacity Phthisis Bulbi Left Eye [...] Erosion Corneal Degeneration Recurrent Erosion [place] [address] [facility] [address] 04/07/2020 12:00:00 AM EST eCW1 ([facility]) <td ID="encounterTypeDescriptionID9">1 [place] Follow-Up</td><td>Dmitry Torres DO</td><td>Reilly Burks MD [facility]</td><td>04/02/2020</td><td>7:28AM</td><td>8:11AM</td><td><content ID="encounterDiagnosisID9-0">Corneal Degeneration Recurrent Erosion</content>, <content ID="encounterDiagnosisID9-1">Hypotony of Eye</content>, <content ID="encounterDiagnosisID9-2">Blepharitis Squamous</content>, <content ID="encounterDiagnosisID9-3">Dry Eye Syndrome Right Eye</content>, <content ID="encounterDiagnosisID9-4">Phthisis Bulbi Left Eye</content></td>Outpatient Attender: DMITRY Santacruz MD [facility] 04/02/2020 07:28:00 AM EST - 04/02/2020 [...] Squamous Blepharitis SquamousBlepharitis SquamousBlepharitis SquamousBlepharitis SquamousBlepharitis SquamousBlepharitis SquamousBlepharitis SquamousBlepharitis SquamousCorneal Degeneration Recurrent ErosionCorneal Degeneration Recurrent ErosionCorneal Degeneration Recurrent Erosion RODDY (Reilly Hebert MD [facility]) Phthisis Bulbi Left Eye Corneal Degeneration [...] Physical Therapy 03/25/2020 09:30:00 AM EST MED[facility] ([facility] ) Outpatient<td ID="encounterTypeDescripti onID10">Rx Refills/Changes</td><td>Dmitry Torres DO</td><td></td><td>03/29/2020</td><td>03/23/2020 4:21PM</td><td>03/23/2020 11:59PM</td><td></td> Attender: DMITRY TORRES DO 020 04:21:00 PM EST - 03/23/2020 11:59:00 PM EST [place] (Reilly Hebert MD [facility]) <td ID="jdlesprimHackHnifrcoyfmfYD44">1 Week Follow-Up</td><td>Dmitry Torres DO</td><td>Reilly Burks MD [facility]</td><td>03/23/2020</td><td>7:27AM</td><td>8:22AM</td><td><content ID="nbjycqnqsZjwwguduaVQ00-2">Hypotony of Eye</content>, <content ID="cjsqjtuxnOlpnkkginHM97-0">Corneal Degeneration Recurrent Erosion</content>, <content ID="hyrncbxsnDhwsymlstWX02-5">Blepharitis Squamous</content>, <content ID="qnzaeezmfUrumrnaniQP25-7">Dry Eye Syndrome Right Eye</content>, <content ID="ndhlvqyheNoecodfhgQP54-1">Phthisis Bulbi Left Eye</content></td>Outpatient Attender: DMITRY Santacruz MD [facility] 03/23/2020 07:27:00 AM EST - 03/23/2020 [...] Degeneration Recurrent Erosion RODDY (Reilly Hebert MD [facility]) Phthisis Bulbi Left Eye Corneal Degeneration [...] Recurrent Erosion Corneal Degeneration Recurrent Erosion <td ID="zqxoblbwbDauvLrvfbkjruriAU28">3d ay followup</td><td>Reilly Burks MD, FACS</td><td>Reilly Burks MD [facility]</td><td>03/16/2020</td><td>8:11AM</td><td>8:54AM</td><td><content ID="axnlehoviRlmvhkhbuFF81-6">Hypotony of Eye</content>, <content ID="fkcswjaevChyrajbzuMS84-9">Corneal Degeneration Recurrent Erosion</content>, <content ID="xhrjirrheGwongsjriBC85-4">Blepharitis Squamous</content>, <content ID="rqtwhclpwFszghqxojZP10-0">Dry Eye Syndrome Right Eye</content>, <content ID="vwcjoxxxxIyjxizxgcHG34-7">Phthisis Bulbi Left Eye</content></td>Outpatient Attender: Reilly Hebert MD, CARMELO Burks MD [facility] 03/16/2020 08:11:0 0 AM EST - 03/16/2020 [...] Degeneration Recurrent Erosion RODDY (Reilly Hebert MD [facility]) Phthisis Bulbi Left Eye Corneal Degeneration [...] Month Follow- Up</td><td>Dmitry Torres DO</td><td>Reilly Burks MD [facility]</td><td>03/12/2020</td><td>7:47AM</td><td>8:53AM</td><td><content ID="vdtqowdtzDufutbojmYJ06-7">Hypotony of Eye</content>, <content ID="dfqptnhlpVbswrpxauPR40-2">Blepharitis Squamous</content>, <content ID="miokowgziZlzvhqnwaAK57-4">Dry Eye Syndrome Right Eye</content>, <content ID="kxleanmctZtglelynsEO57-6">Phthisis Bulbi Left Eye</content>, <content ID="lcyusppwyNsqaefkvtOB49-6">Corneal Degeneration Recurrent Erosion</content>< /td> Attender: DMITRY Santacruz MD [facility] 02/22 07:47:00 AM EST - 03/12/2020 [...] Degeneration Recurrent Erosion ROD[place] (Reilly Hebert MD [facility]) Corneal Degeneration Recurrent Erosion Phthisis Bulbi [...] Erosion Corneal Degeneration Recurrent Erosion [place] [address] [facility] [address] 03/08/2020 12:00:00 AM EST eCW1 (Formerly [facility]) Outpatient Attender: Martha Boykin PAReferrer: Carlos JOHNSTON.BRIGID-SJAddison.BRIGID 03/04/2020 12:00:00 AM EST - 03/04/2020 02:47:53 PM EST [facility] Unknown [address] [facility] [address] 03/04/2020 12:00:00 AM EST eCW1 ([facility]ly [facility]) OFFICE OUTPATIENT VISIT 15 MINUTES Attender: Norris STEWART Physical Therapy 03/01/2020 08:30:00 AM EST [place] ([facility] ) Outpatient<td ID="encounterTypeDescripti onID14">6 Week Follow-Up</td><td>Dmitry Torres DO</td><td>Reilly Burks MD [facility]</td><td>02/11/2020</td><td>8:00AM</td><td>9:56AM</td><td><content ID="mdcaprlgyJxxbmatuvGE17-6">Hypotony of Eye</content>, <content ID="kcysoisdoUabsuyswtEH72-3">Blepharitis Squamous</content>, <content ID="kqlpjafrnWnlpsvzprZT56-1">Dry Eye Syndrome Right Eye</content>, <content ID="tjaygiqkuOyjqisnbhRG42-2">Phthisis Bulbi Left Eye</content></td> Attender: DMITRY Santacruz MD [facility] 02/11/2020 08:00:00 AM EDT - 02/11/2020 [...] SquamousBlepharitis SquamousBlepharitis Squamous ROD[place] (Reilly Hebert MD [facility]) Phthisis Bulbi Left Eye Phthisis Bulbi [...] NP Physical Therapy 09:15:00 AM EDT [facility] ([facility]) Outpatient Attender: Shantal CHOE-SJP.BRIGID 09/2019 12:00:00 AM EDT - 01/27/2020 09:21:45 AM EDT [facility] Outpatient [address] [facility] [address] 01/22/2020 12:00:00 AM EDT eC1 ([facility]ly [facility]) Outpatient Attender: Shantal CHOE-SJP.BRIGID 12/23 12:00:00 AM EDT - 01/20/2020 11:31:30 AM EDT [facility] [address] [place] [id number] 01/16/2020 12:00:00 AM EDT eCW1 ([facility]) Outpatient<td ID="encounterTypeDescripti onID15">6 Week Follow-Up</td><td>Dmitry Torres DO</td><td>Reilly Burks MD [facility]</td><td>01/02/2020</td><td>8:21AM</td><td>9:17AM</td><td><content ID="qnyqwowgdKwxhrnmwdBA31-1">Hypotony of Eye</content>, <content ID="vbqdiamflDxwbpzaagQM57-2">Blepharitis Squamous</content>, <content ID="abemjibmfUsxfpkxifVT52-1">Phthisis Bulbi Left Eye</content>, <content ID="dmtwwudnsUgzpvvdoyHR10-7">Dry Eye Syndrome Right Eye</content></td> Attender: DMITRY Santacruz MD [facility] 01/02/2020 08:21:00 AM EDT - 01/02/2020 [...] SquamousBlepharitis SquamousBlepharitis Squamous ROD[place] (Reilly Hebert MD [facility]) Dry Eye Syndrome Right Eye Phthisis [...] 06/27/2020 11:2 7:00 AM EST completed eCW1 ([facility]) COVID-19 dose #2 given elsewhere Unspecified 06/27/2020 11:2 7:00 AM EST completed eCW1 ([facility]) COVID-19 dose #2 given elsewhere Unspecified 06/27/2020 11:2 7:00 AM EST completed eCW1 ([facility]) COVID-19 dose #2 given elsewhere Unspecified 06/27/2020 11:2 7:00 AM EST completed eCW1 ([facility]) COVID-19 dose #2 given elsewhere Unspecified 06/27/2020 11:2 7:00 AM EST completed eCW1 ([facility]) COVID-19 dose #2 given elsewhere Unspecified 06/27/2020 11:2 7:00 AM EST completed eCW1 ([facility]) COVID-19 dose #2 given elsewhere Unspecified 06/27/2020 11:2 7:00 AM EST completed eCW1 ([facility]) COVID-19 VACCINE Moderna 06/27/2020 12:00:00 AM EST completed [facility] Vaccine Series Complete: YESThis Data wa s Submitted to [facility] Via [employer]. COVID-19 dose #1 given elsewhere Unspecified 06/07/2020 11:2 6:00 AM EST completed eCW1 ([facility]) COVID-19 dose #1 given elsewhere Unspecified 06/07/2020 11:2 6:00 AM EST completed eCW1 ([facility]) COVID-19 dose #1 given elsewhere Unspecified 06/07/2020 11:2 6:00 AM EST completed eCW1 ([facility]) COVID-19 dose #1 given elsewhere Unspecified 06/07/2020 11:2 6:00 AM EST completed eCW1 ([facility]) COVID-19 dose #1 given elsewhere Unspecified 06/07/2020 11:2 6:00 AM EST completed eCW1 ([facility]) COVID-19 dose #1 given elsewhere Unspecified 06/07/2020 11:2 6:00 AM EST completed eCW1 ([facility]) COVID-19 dose #1 given elsewhere Unspecified 06/07/2020 11:2 6:00 AM EST completed eCW1 ([facility]) COVID-19 VACCINE Moderna 05/30/2020 12:00:00 AM EST completed [facility] Vaccine Series Complete: NOThis Data was Submitted to [facility] Via [employer]. influenza, recombinant, quadrIvalent,injectable, prese rvative free 01/22/2020 11:46:00 AM EDT completed eCW1 ([facility]) influenza, recombinant, quadrIvalent,injectable, prese rvative free 01/22/2020 11:46:00 AM EDT completed eCW1 ([facility]) influenza, recombinant, quadrIvalent,injectable, prese rvative free 01/22/2020 11:46:00 AM EDT completed eCW1 ([facility] hospital) influenza, recombinant, quadrIvalent,injectable, prese rvative free 01/22/2020 11:46:00 AM EDT completed eCW1 ([facility] hospital) influenza, recombinant, quadrIvalent,injectable, prese rvative free 01/22/2020 11:46:00 AM EDT completed eCW1 ([facility]) influenza, recombinant, quadrIvalent,injectable, prese rvative free 01/22/2020 11:46:00 AM EDT completed eCW1 ([facility] hospital) influenza, recombinant, quadrIvalent,injectable, prese rvative free 01/22/2020 11:46:00 AM EDT completed eCW1 ([facility] hospital) influenza, recombinant, quadrIvalent,injectable, prese rvative free 01/22/2020 11:46:00 AM EDT completed eCW1 ([facility] hospital) influenza, recombinant, quadrIvalent,injectable, prese rvative free 01/22/2020 11:46:00 AM EDT completed eCW1 ([facility] access hospital) influenza, recombinant, quadrIvalent,injectable, prese rvative free 01/22/2020 11:46:00 AM EDT completed eCW1 ([facility] access hospital) influenza, recombinant, quadrIvalent,injectable, prese rvative free 01/22/2020 11:46:00 AM EDT completed eCW1 ([facility] hospital) influenza, recombinant, quadrIvalent,injectable, prese rvative free 01/22/2020 11:46:00 AM EDT completed eCW1 ([facility] access hospital) influenza, recombinant, quadrIvalent,injectable, prese rvative free 01/22/2020 11:46:00 AM EDT completed eCW1 ([facility] hospital) influenza, recombinant, quadrIvalent,injectable, prese rvative free 01/22/2020 11:46:00 AM EDT completed eCW1 ([facility] hospital) influenza, recombinant, quadrIvalent,injectable, prese rvative free 01/22/2020 11:46:00 AM EDT completed eCW1 (Critical [facility] hospital) influenza, recombinant, quadrIvalent,injectable, prese rvative free 01/22/2020 11:46:00 AM EDT completed eCW1 (Critical access hospital) influenza, recombinant, quadrIvalent,injectable, prese rvative free 01/22/2020 11:46:00 AM EDT completed eCW1 (Critical access hospital) influenza, recombinant, quadrIvalent,injectable, prese rvative free 01/22/2020 11:46:00 AM EDT completed eCW1 (Critical access hospital) influenza, recombinant, quadrIvalent,injectable, prese rvative free 01/22/2020 11:46:00 AM EDT completed eCW1 (Critical access hospital) influenza, recombinant, quadrIvalent,injectable, prese rvative free 01/22/2020 11:46:00 AM EDT completed eCW1 (Critical access hospital) influenza, recombinant, quadrIvalent,injectable, prese rvative free 01/22/2020 11:46:00 AM EDT completed eCW1 (Critical access hospital) influenza, recombinant, quadrIvalent,injectable, prese rvative free 01/22/2020 11:46:00 AM EDT completed eCW1 (Critical access hospital) influenza, recombinant, quadrIvalent,injectable, prese rvative free 01/22/2020 11:46:00 AM EDT completed eCW1 (Critical access hospital) influenza, recombinant, quadrIvalent,injectable, prese rvative free 01/22/2020 11:46:00 AM EDT completed eCW1 (Critical access hospital) influenza, recombinant, quadrIvalent,injectable, prese rvative free 01/22/2020 11:46:00 AM EDT completed eCW1 (Critical access hospital) influenza, recombinant, quadrIvalent,injectable, prese rvative free 01/22/2020 11:46:00 AM EDT completed eCW1 (Critical access hospital) influenza, recombinant, quadrIvalent,injectable, prese rvative free 01/22/2020 11:46:00 AM EDT completed eCW1 (Critical access hospital) influenza, recombinant, quadrIvalent,injectable, prese rvative free 01/22/2020 11:46:00 AM EDT completed eCW1 (Critical access hospital) influenza, recombinant, quadrIvalent,injectable, prese rvative free 01/22/2020 11:46:00 AM EDT completed eCW1 (Critical access hospital) influenza, recombinant, quadrIvalent,injectable, prese rvative free 01/22/2020 11:46:00 AM EDT completed eCW1 (Critical access hospital) influenza, recombinant, quadrIvalent,injectable, prese rvative free 01/22/2020 11:46:00 AM EDT completed eCW1 (Critical access hospital) influenza, recombinant, quadrIvalent,injectable, prese rvative free 01/22/2020 11:46:00 AM EDT completed eCW1 (Critical access hospital) influenza, recombinant, quadrIvalent,injectable, prese rvative free 01/22/2020 11:46:00 AM EDT completed eCW1 (Critical access hospital) influenza, recombinant, quadrIvalent,injectable, prese rvative free 01/22/2020 11:46:00 AM EDT completed eCW1 (Critical access hospital) influenza, recombinant, quadrIvalent,injectable, prese rvative free 01/22/2020 11:46:00 AM EDT completed eCW1 (Critical access hospital) influenza, recombinant, quadrIvalent,injectable, prese rvative free 01/22/2020 11:46:00 AM EDT completed eCW1 (Critical access hospital) influenza, recombinant, quadrIvalent,injectable, prese rvative free 01/22/2020 11:46:00 AM EDT completed eCW1 (Critical access hospital) Medications Medication Brand Name Start Date Product Form Dose Route Admi nistrative Instructions Pharmacy Instructions Status Indications Reaction Description Data Source(s) Spironolactone 25 MG Oral Tablet spironolactone (ALDAC TONE) 25 MG tablet spironolactone (ALDACTONE) 25 MG tablet 01/06/2021 12:00:00 AM EDT 12.5 mg Oral active Take 0.5 tablets (12 .5 mg total) by mouth daily [facility] Digoxin 0.125 MG Oral Tablet digoxin (LANOXIN) 125 MCG tablet digoxin (LANOXIN) 125 MCG tablet 01/06/2021 12:00:00 AM EDT 125 ug Oral act danielle Take 1 tablet (125 mcg total) by mouth daily [facility] 24 HR Diltiazem Hydrochloride 120 MG Ext ended Release Oral Capsule diltiazem (CARDIZEM CD) 120 MG 24 hr capsule diltiazem (CARDIZEM CD) 120 MG 24 hr capsule 01/06/2021 12:00:00 AM EDT active TAKE ONE CAPSULE BY MOUTH EVERY DAY [facility] Levothyroxine Sodium 0.137 MG Oral Table t levothyroxine (SYNTHROID, LEVOTHROID) 137 MCG tablet levothyroxine (SYNTHROID, LEVOTHROID) 137 MCG tablet 0 12/19/2020 12:00:00 AM EDT active TAKE ONE TABLET BY MOUTH EVERY MORNING ON EMPTY STOMACH [facility] cefpodoxime 200 MG Oral Tablet Cefpodoxime Proxetil 20 0 MG Cefpodoxime Proxetil 200 MG 12/15/2020 12:00:00 AM EDT 1.0 {tablet_with_food} suspended Cefpodoxime Proxetil 200 MG eCW1 ([facility]) doxycycline hyclate 100 MG Oral Tablet Doxycycline Hyc late 100 MG Doxycycline Hyclate 100 MG 12/15/2020 12:00:00 AM EDT 1.0 {tablet} suspended Doxycycline Hyclate 100 MG eCW1 ([facility]) cefpodoxime 200 MG Oral Tablet Cefpodoxime Proxetil 20 0 MG Cefpodoxime Proxetil 200 MG 12/15/2020 12:00:00 AM EDT 1.0 {tablet_with_food} active Cefpodoxime Proxetil 200 MG eCW1 ([facility]) doxycycline hyclate 100 MG Oral Tablet doxycycline ( BRA-TABS) 100 MG tablet doxycycline (VIBRA-TABS) 100 MG tablet 12/15/2020 12:00:00 AM EDT aborted 2 (two) times a day [facility] cefpodoxime 200 MG Oral Tablet cefpodoxime (VANTIN) 20 0 MG tablet cefpodoxime (VANTIN) 200 MG tablet 12/15/2020 12:00:00 AM EDT aborted daily [facility] doxycycline hyclate 100 MG Oral Tablet Doxycycline Hyc late 100 MG Doxycycline Hyclate 100 MG 12/15/2020 12:00:00 AM EDT 1.0 {tablet} suspended Doxycycline Hyclate 100 MG eCW1 ([facility]) doxycycline hyclate 100 MG Oral Tablet Doxycycline Hyc late 100 MG Doxycycline Hyclate 100 MG 12/15/2020 12:00:00 AM EDT 1.0 {tablet} suspended Doxycycline Hyclate 100 MG eCW1 ([facility]) doxycycline hyclate 100 MG Oral Tablet Doxycycline Hyc late 100 MG Doxycycline Hyclate 100 MG 12/15/2020 12:00:00 AM EDT 1.0 {tablet} active Doxycycline Hyclate 100 MG eCW1 ([facility]) doxycycline hyclate 100 MG Oral Tablet Doxycycline Hyc late 100 MG Doxycycline Hyclate 100 MG 12/15/2020 12:00:00 AM EDT 1.0 {tablet} suspended Doxycycline Hyclate 100 MG eCW1 ([facility]) doxycycline hyclate 100 MG Oral Tablet Doxycycline Hyc late 100 MG Doxycycline Hyclate 100 MG 12/15/2020 12:00:00 AM EDT 1.0 {tablet} suspended Doxycycline Hyclate 100 MG eCW1 ([facility]) cefpodoxime 200 MG Oral Tablet Cefpodoxime Proxetil 20 0 MG Cefpodoxime Proxetil 200 MG 12/15/2020 12:00:00 AM EDT 1.0 {tablet_with_food} suspended Cefpodoxime Proxetil 200 MG eCW1 ([facility]) doxycycline hyclate 100 MG Oral Tablet Doxycycline Hyc late 100 MG Doxycycline Hyclate 100 MG 12/15/2020 12:00:00 AM EDT 1.0 {tablet} active Doxycycline Hyclate 100 MG eCW1 ([facility]) cefpodoxime 200 MG Oral Tablet Cefpodoxime Proxetil 20 0 MG Cefpodoxime Proxetil 200 MG 12/15/2020 12:00:00 AM EDT 1.0 {tablet_with_food} suspended Cefpodoxime Proxetil 200 MG eCW1 ([facility]) doxycycline hyclate 100 MG Oral Tablet Doxycycline Hyc late 100 MG Doxycycline Hyclate 100 MG 12/15/2020 12:00:00 AM EDT 1.0 {tablet} suspended Doxycycline Hyclate 100 MG eCW1 ([facility]) cefpodoxime 200 MG Oral Tablet Cefpodoxime Proxetil 20 0 MG Cefpodoxime Proxetil 200 MG 12/15/2020 12:00:00 AM EDT 1.0 {tablet_with_food} suspended Cefpodoxime Proxetil 200 MG eCW1 ([facility]) cefpodoxime 200 MG Oral Tablet Cefpodoxime Proxetil 20 0 MG Cefpodoxime Proxetil 200 MG 12/15/2020 12:00:00 AM EDT 1.0 {tablet_with_food} suspended Cefpodoxime Proxetil 200 MG eCW1 ([facility]) cefpodoxime 200 MG Oral Tablet Cefpodoxime Proxetil 20 0 MG Cefpodoxime Proxetil 200 MG 12/15/2020 12:00:00 AM EDT 1.0 {tablet_with_food} suspended Cefpodoxime Proxetil 200 MG eCW1 ([facility]) cefpodoxime 200 MG Oral Tablet Cefpodoxime Proxetil 20 0 MG Cefpodoxime Proxetil 200 MG 12/15/2020 12:00:00 AM EDT 1.0 {tablet_with_food} active Cefpodoxime Proxetil 200 MG eCW1 ([facility]) Levothyroxine Sodium 0.137 MG Oral Tablet Levothyroxin e Sodium 137 MCG Levothyroxine Sodium 137 MCG 11/25/2020 12:00:00 AM EDT active Levothyroxine Sodium 137 MCG eCW1 ([facility]) Levothyroxine Sodium 0.137 MG Oral Tablet Levothyroxin e Sodium 137 MCG Levothyroxine Sodium 137 MCG 11/25/2020 12:00:00 AM EDT active Levothyroxine Sodium 137 MCG eCW1 ([facility]) Levothyroxine Sodium 0.137 MG Oral Tablet Levothyroxin e Sodium 137 MCG Levothyroxine Sodium 137 MCG 11/25/2020 12:00:00 AM EDT active Levothyroxine Sodium 137 MCG eCW1 ([facility]) Levothyroxine Sodium 0.137 MG Oral Tablet Levothyroxin e Sodium 137 MCG Levothyroxine Sodium 137 MCG 11/25/2020 12:00:00 AM EDT active Levothyroxine Sodium 137 MCG eCW1 ([facility]) Levothyroxine Sodium 0.112 MG Oral Table t levothyroxine (SYNTHROID, LEVOTHROID) 112 MCG tablet levothyroxine (SYNTHROID, LEVOTHROID) 112 MCG tablet 0 11/25/2020 12:00:00 AM EDT 137 ug aborted 137 mcg [facility] Levothyroxine Sodium 0.137 MG Oral Tablet Levothyroxin e Sodium 137 MCG Levothyroxine Sodium 137 MCG 11/25/2020 12:00:00 AM EDT active Levothyroxine Sodium 137 MCG eCW1 ([facility]) Levothyroxine Sodium 0.137 MG Oral Tablet Levothyroxin e Sodium 137 MCG Levothyroxine Sodium 137 MCG 11/25/2020 12:00:00 AM EDT active Levothyroxine Sodium 137 MCG eCW1 ([facility]) Levothyroxine Sodium 0.137 MG Oral Tablet Levothyroxin e Sodium 137 MCG Levothyroxine Sodium 137 MCG 11/25/2020 12:00:00 AM EDT active Levothyroxine Sodium 137 MCG eCW1 ([facility]) Levothyroxine Sodium 0.137 MG Oral Tablet Levothyroxin e Sodium 137 MCG Levothyroxine Sodium 137 MCG 11/25/2020 12:00:00 AM EDT active Levothyroxine Sodium 137 MCG eCW1 ([facility]) Levothyroxine Sodium 0.137 MG Oral Tablet Levothyroxin e Sodium 137 MCG Levothyroxine Sodium 137 MCG 11/25/2020 12:00:00 AM EDT active Levothyroxine Sodium 137 MCG eCW1 ([facility]) Levothyroxine Sodium 0.137 MG Oral Tablet Levothyroxin e Sodium 137 MCG Levothyroxine Sodium 137 MCG 11/25/2020 12:00:00 AM EDT active Levothyroxine Sodium 137 MCG eCW1 ([facility]) aminophylline injection 75 mg [id number] 11/24/2020 10:00:00 AM EDT 75 mg Intravenous active Chest pain, unspecified typeAbnormal E [facility] Chest pain, unspecified type Abnormal EKG 24 HR Diltiazem Hydrochloride 120 MG Ext ended Release Oral Capsule diltiazem (CARDIZEM CD) 120 MG 24 hr capsule diltiazem (CARDIZEM CD) 120 MG 24 hr capsule 11/11/2020 12:00:00 AM EDT 120 mg Oral active Take 1 capsule (120 mg total) by mouth daily [facility] 0.5 ML dulaglutide 3 MG/ML Auto-Injector [Trulicity] Trulici ty 11/09/2020 12:00:00 AM EDT active M EDENT ([facility] ) Bisoprolol Oral Capsule Bisoprolol Oral Capsule 11/09/2020 12:00:00 A M EDT active Bisoprolol RODDY ([facility] Hebert [facility]) Chlorthalidone 25 MG Oral Tablet Chlorthalidone 25 MG Oral T ablet 11/09/2020 12:00:00 AM EDT 1 active chlortha lidone 25 MG Oral Tablet RODDY ([facility]) Chlorthalidone 25 MG Oral Tablet chlorthalidone (HYGRO TEN) 25 MG tablet chlorthalidone (HYGROTEN) 25 MG tablet 10/14/2020 12:00:00 AM EDT 2 5 mg Oral active Take 1 tablet (25 mg tota l) by mouth daily [facility] Bisoprolol Fumarate 10 MG Oral Tablet bisoprolol (ZEBE TA) 10 MG tablet bisoprolol (ZEBETA) 10 MG tablet 10/14/2020 12:00:00 AM EDT 10 mg Oral active Take 1 tablet (10 mg total) by m outh daily [facility] Digoxin 0.125 MG Oral Tablet digoxin (LANOXIN) 125 MCG tablet digoxin (LANOXIN) 125 MCG tablet 10/11/2020 12:00:00 AM EDT 125 ug Oral act danielle Take 1 tablet (125 mcg total) by mouth daily [facility] Metoprolol Tartrate 100 MG Oral Tablet m etoprolol tartrate (LOPRESSOR) 100 MG tablet metoprolol tartrate (LOPRESSOR) 100 MG tablet 10/07/2020 12: 00:00 AM EDT aborted TAKE ONE AND ONE -HALF TABLETS BY MOUTH TWICE A DAY [facility] Amoxicillin 500 MG / Clavulanate 125 MG Oral Tablet [Augment in] Augmentin 10/05/2020 12:00:00 AM EDT ORAL completed MEDENT ([facility]) Amoxicillin 500 MG / Clavulanate 125 MG Oral Tablet amoxicillin-clavulanate (AUGMENTIN) 500-125 MG per tablet amoxicillin-clavulanate (AUGMENTIN) 500- 125 MG per tablet 10/05/2020 12:00:00 AM EDT 1 {tbl} Oral abort ed Take 1 tablet by mouth 3 (three) times a day [facility] apixaban 5 MG Oral Tablet Apixaban (Eliquis) 5 MG TABS tablet Apixaban (Eliquis) 5 MG TABS tablet 09/21/2020 12:00:00 AM EDT 5 mg Oral active Persistent atrial fibrillation Take 1 tablet (5 mg total) by mouth 2 (t wo) times a day [facility] Persistent atrial fibrillation Cyclosporine 0.5 MG/ML Ophthalmic Suspen leroy [Restasis] Restasis 0.05% Ophthalmic Emulsion Restasis 0.05% Ophthalmic Emulsion 09/15/2020 12:00:00 AM EDT active cyclospo rine 0.5 MG/ML Ophthalmic Suspension [Restasis] RODDY (Reilly Hebert MD [facility]) Digoxin 0.125 MG Oral Tablet [Digox] Digox 125 MCG Ora l Tablet Digox 125 MCG Oral Tablet 09/14/2020 12:00:00 AM EDT active digoxin 0.125 MG Oral Tablet [Digox] RODDY ([facility] He[facility]) Dexamethasone 1 MG/ML / Tobramycin 3 MG/ ML Ophthalmic Suspension Tobramycin- Dexamethasone 0.3-0.1% Ophthalmic Suspension Tobramycin-Dexamethasone 0.3-0.1% Ophthalmic Suspension 09/02/2020 12:00:00 AM EDT active dexamethasone 1 MG/ML / tobramycin 3 MG/ML Ophthalmic Suspension RODDY ([facility] Hebert [facility]) Sinus Rinse Bottle Kit 08/31/2020 12:00:00 AM EDT active MEDENT ([facility], ) Dexamethasone 1 MG/ML / Tobramycin 3 MG/ML Ophthalmic Suspension [Tobradex] Tobradex 08/31/2020 12:00:00 AM EDT OPHTHALMIC active MEDENT ([facility], ) Sulfamethoxazole 800 MG / Trimethoprim 160 MG Oral Tablet [B actrim] Bactrim DS 08/31/2020 12:00:00 AM EDT ORAL completed MEDENT ([facility], ) Acetaminophen 300 MG / Codeine Phosphate 30 MG Oral Tablet [Tylenol with Codeine] Tylenol With Codeine #3 08/25/2020 12:00:00 AM EDT ORAL completed MEDENT ([facility], ) atorvastatin 80 MG Oral Tablet atorvastatin (LIPITOR) 80 MG tablet atorvastatin (LIPITOR) 80 MG tablet 08/24/2020 12:00:00 AM EDT 80 mg Oral active Take 1 tablet (80 mg total) by mouth daily [facility] Levothyroxine Sodium 0.15 MG Oral Tablet Levothyroxine Sodium 150 MCG Levothyroxine Sodium 150 MCG 08/04/2020 12:00:00 AM EDT active Levothyroxine Sodium 150 MCG eCW1 ([facility]) Levothyroxine Sodium 0.15 MG Oral Tablet Levothyroxine Sodium 150 MCG Levothyroxine Sodium 150 MCG 08/04/2020 12:00:00 AM EDT active Levothyroxine Sodium 150 MCG eCW1 ([facility]) Levothyroxine Sodium 0.15 MG Oral Tablet Levothyroxine Sodium 150 MCG Levothyroxine Sodium 150 MCG 08/04/2020 12:00:00 AM EDT active Levothyroxine Sodium 150 MCG eCW1 ([facility]) Levothyroxine Sodium 0.15 MG Oral Tablet Levothyroxine Sodium 150 MCG Levothyroxine Sodium 150 MCG 08/04/2020 12:00:00 AM EDT active Levothyroxine Sodium 150 MCG eCW1 ([facility]) Levothyroxine Sodium 0.15 MG Oral Tablet levothyroxine (SYNTHROID, LEVOTHROID) 150 MCG tablet levothyroxine (SYNTHROID, LEVOTHROID) 150 MCG tablet 0 08/04/2020 12:00:00 AM EDT active daily [facility] Levothyroxine Sodium 0.15 MG Oral Tablet Levothyroxine Sodium 150 MCG Levothyroxine Sodium 150 MCG 08/04/2020 12:00:00 AM EDT active Levothyroxine Sodium 150 MCG eCW1 ([facility]) Levothyroxine Sodium 0.15 MG Oral Tablet Levothyroxine Sodium 150 MCG Levothyroxine Sodium 150 MCG 08/04/2020 12:00:00 AM EDT active Levothyroxine Sodium 150 MCG eCW1 ([facility]) Levothyroxine Sodium 0.15 MG Oral Tablet Levothyroxine Sodium 150 MCG Levothyroxine Sodium 150 MCG 08/04/2020 12:00:00 AM EDT active eCW1 ([facility]) 0.5 ML dulaglutide 1.5 MG/ML Auto-Injector [Trulicity] [facility] 08/03/2020 12:00:00 AM EDT completed MEDENT ([facility]) Folic Acid 1 MG Oral Tablet folic acid (FOLVITE) 1 MG tablet folic acid (FOLVITE) 1 MG tablet 08/03/2020 12:00:00 AM EDT 1000 ug Oral active Take 1,000 mcg by mouth daily [facility] Methotrexate 2.5 MG Oral Tablet methotrexate 2.5 MG ta blet methotrexate 2.5 MG tablet 08/03/2020 12:00:00 AM EDT active TAKE 4 TABLETS BY MOUTH ONCE A WEEK DIRECTED [facility] OneTouch Ultra test strip [id number] 07/27/2020 12:00:00 AM EDT active TEST FOUR TIMES A DAY NEEDED [facility] Levothyroxine Sodium 0.137 MG Oral Tablet Levothyroxin e Sodium 137 MCG Levothyroxine Sodium 137 MCG 06/16/2020 12:00:00 AM EST active Levothyroxine Sodium 137 MCG eCW1 ([facility]) Levothyroxine Sodium 0.137 MG Oral Tablet Levothyroxin e Sodium 137 MCG Levothyroxine Sodium 137 MCG 06/16/2020 12:00:00 AM EST active Levothyroxine Sodium 137 MCG eCW1 ([facility]) Levothyroxine Sodium 0.137 MG Oral Tablet Levothyroxin e Sodium 137 MCG Levothyroxine Sodium 137 MCG 06/16/2020 12:00:00 AM EST active Levothyroxine Sodium 137 MCG eCW1 ([facility]) Levothyroxine Sodium 0.137 MG Oral Tablet Levothyroxin e Sodium 137 MCG Levothyroxine Sodium 137 MCG 06/16/2020 12:00:00 AM EST active Levothyroxine Sodium 137 MCG eCW1 ([facility]) Losartan Potassium 25 MG Oral Tablet losartan (COZAAR) 25 MG tablet losartan (COZAAR) 25 MG tablet 06/16/2020 12:00:00 AM EST 25 mg Oral active Take 25 mg by mouth daily [facility] Digoxin 0.125 MG Oral Tablet digoxin (LANOXIN) 125 MCG tablet digoxin (LANOXIN) 125 MCG tablet 06/09/2020 12:00:00 AM EST 125 ug Oral abo rted Take 1 tablet (125 mcg total) by mouth daily [facility] Methotrexate 2.5 MG Oral Tablet Methotrexate 2.5 MG Oral Tab let 05/13/2020 12:00:00 AM EST active methotre xate 2.5 MG Oral Tablet RODDY (Reilly Hebert [facility]) Folic Acid 1 MG Oral Tablet Folic Acid 1 MG Oral Tablet 04/24 12:00:00 AM EST 1 active folic acid 1 MG O ral Tablet RODDY (Reilly Hebert MD [facility]) BD Insulin Syringe U/F 31G X 5/16" 1 ML [facility] [id number] 05/12/2020 12:00:00 AM EST active USE D IRECTED THREE TIMES A DAY MAXIMUM DAILY DOSE 3 [facility] Losartan Potassium 25 MG Oral Tablet Losartan Potassium 12:00:00 AM EST active [facility] ([facility]) Methotrexate 2.5 MG Oral Tablet Methotrexate 05/11/2020 12:00:00 AM EST active MEDENT ([facility]) Folic Acid 1 MG Oral Tablet Folic Acid 05/11/2020 12:00:00 AM EST active MEDENT ([facility]) Eysuvis Eysuvis 05/11/2020 12:00:00 AM EST OPHTHALMIC c ompleted MEDENT ([facility]) Folic Acid 1 MG Oral Tablet Folic Acid 1 MG 04/30/2020 12:00:00 AM EST 1.0 {tablet} active Folic Acid 1 MG eCW1 ([facility]) Folic Acid 1 MG Oral Tablet Folic Acid 1 MG 04/30/2020 12:00:00 AM EST 1.0 {tablet} active Folic Acid 1 MG eCW1 ([facility]) Folic Acid 1 MG Oral Tablet Folic Acid 1 MG 04/30/2020 12:00:00 AM EST 1.0 {tablet} active Folic Acid 1 MG eCW1 ([facility]) Methotrexate 2.5 MG Oral Tablet Methotrexate Sodium 2. 5 MG Methotrexate Sodium 2.5 MG 04/30/2020 12:00:00 AM EST active Methotrexate Sodium 2.5 MG eCW1 ([facility]) Folic Acid 1 MG Oral Tablet Folic Acid 1 MG 04/30/2020 12:00:00 AM EST 1.0 {tablet} active Folic Acid 1 MG eCW1 ([facility]) Folic Acid 1 MG Oral Tablet Folic Acid 1 MG 04/30/2020 12:00:00 AM EST 1.0 {tablet} active Folic Acid 1 MG eCW1 ([facility]) Folic Acid 1 MG Oral Tablet Folic Acid 1 MG 04/30/2020 12:00:00 AM EST 1.0 {tablet} active Folic Acid 1 MG eCW1 ([facility]) Folic Acid 1 MG Oral Tablet Folic Acid 1 MG 04/30/2020 12:00:00 AM EST 1.0 {tablet} active Folic Acid 1 MG eCW1 ([facility]) Folic Acid 1 MG Oral Tablet Folic Acid 1 MG 04/30/2020 12:00:00 AM EST 1.0 {tablet} active Folic Acid 1 MG eCW1 ([facility]) Methotrexate 2.5 MG Oral Tablet Methotrexate Sodium 2. 5 MG Methotrexate Sodium 2.5 MG 04/30/2020 12:00:00 AM EST active Methotrexate Sodium 2.5 MG eCW1 ([facility]) Methotrexate 2.5 MG Oral Tablet Methotrexate Sodium 2. 5 MG Methotrexate Sodium 2.5 MG 04/30/2020 12:00:00 AM EST active Methotrexate Sodium 2.5 MG eCW1 ([facility]) Methotrexate 2.5 MG Oral Tablet Methotrexate Sodium 2. 5 MG Methotrexate Sodium 2.5 MG 04/30/2020 12:00:00 AM EST active Methotrexate Sodium 2.5 MG eCW1 ([facility]) Folic Acid 1 MG Oral Tablet Folic Acid 1 MG 04/30/2020 12:00:00 AM EST 1.0 {tablet} active Folic Acid 1 MG eCW1 ([facility]) Methotrexate 2.5 MG Oral Tablet Methotrexate Sodium 2. 5 MG Methotrexate Sodium 2.5 MG 04/30/2020 12:00:00 AM EST active Methotrexate Sodium 2.5 MG eCW1 ([facility]) Methotrexate 2.5 MG Oral Tablet Methotrexate Sodium 2. 5 MG Methotrexate Sodium 2.5 MG 04/30/2020 12:00:00 AM EST active Methotrexate Sodium 2.5 MG eCW1 ([facility]) Folic Acid 1 MG Oral Tablet Folic Acid 1 MG 04/30/2020 12:00:00 AM EST 1.0 {tablet} active Folic Acid 1 MG eCW1 ([facility]) Folic Acid 1 MG Oral Tablet Folic Acid 1 MG 04/30/2020 12:00:00 AM EST 1.0 {tablet} active Folic Acid 1 MG eCW1 ([facility]) Folic Acid 1 MG Oral Tablet Folic Acid 1 MG 04/30/2020 12:00:00 AM EST 1.0 {tablet} active Folic Acid 1 MG eCW1 ([facility]) Folic Acid 1 MG Oral Tablet Folic Acid 1 MG 04/30/2020 12:00:00 AM EST 1.0 {tablet} active Folic Acid 1 MG eCW1 ([facility]) Methotrexate 2.5 MG Oral Tablet Methotrexate Sodium 2. 5 MG Methotrexate Sodium 2.5 MG 04/30/2020 12:00:00 AM EST active Methotrexate Sodium 2.5 MG eCW1 ([facility]) Methotrexate 2.5 MG Oral Tablet Methotrexate Sodium 2. 5 MG Methotrexate Sodium 2.5 MG 04/30/2020 12:00:00 AM EST active Methotrexate Sodium 2.5 MG eCW1 ([facility]) Folic Acid 1 MG Oral Tablet Folic Acid 1 MG 04/30/2020 12:00:00 AM EST 1.0 {tablet} active Folic Acid 1 MG eCW1 ([facility]) Methotrexate 2.5 MG Oral Tablet Methotrexate Sodium 2. 5 MG Methotrexate Sodium 2.5 MG 04/30/2020 12:00:00 AM EST active Methotrexate Sodium 2.5 MG eCW1 ([facility]) Methotrexate 2.5 MG Oral Tablet Methotrexate Sodium 2. 5 MG Methotrexate Sodium 2.5 MG 04/30/2020 12:00:00 AM EST active Methotrexate Sodium 2.5 MG eCW1 ([facility]) Methotrexate 2.5 MG Oral Tablet Methotrexate Sodium 2. 5 MG Methotrexate Sodium 2.5 MG 04/30/2020 12:00:00 AM EST active eCW1 ([facility]) Folic Acid 1 MG Oral Tablet Folic Acid 1 MG 04/30/2020 12:00:00 AM EST 1.0 {tablet} active Folic Acid 1 MG eCW1 ([facility]) Methotrexate 2.5 MG Oral Tablet Methotrexate Sodium 2. 5 MG Methotrexate Sodium 2.5 MG 04/30/2020 12:00:00 AM EST active Methotrexate Sodium 2.5 MG eCW1 ([facility]) Methotrexate 2.5 MG Oral Tablet Methotrexate Sodium 2. 5 MG Methotrexate Sodium 2.5 MG 04/30/2020 12:00:00 AM EST active Methotrexate Sodium 2.5 MG eCW1 ([facility]) Folic Acid 1 MG Oral Tablet Folic Acid 1 MG 04/30/2020 12:00:00 AM EST 1.0 {tablet} active Folic Acid 1 MG eCW1 ([facility]) Methotrexate 2.5 MG Oral Tablet Methotrexate Sodium 2. 5 MG Methotrexate Sodium 2.5 MG 04/30/2020 12:00:00 AM EST active Methotrexate Sodium 2.5 MG eCW1 ([facility]) Methotrexate 2.5 MG Oral Tablet Methotrexate Sodium 2. 5 MG Methotrexate Sodium 2.5 MG 04/30/2020 12:00:00 AM EST active Methotrexate Sodium 2.5 MG eCW1 ([facility]) Folic Acid 1 MG Oral Tablet Folic Acid 1 MG 04/30/2020 12:00:00 AM EST 1.0 {tablet} active Folic Acid 1 MG eCW1 ([facility]) Methotrexate 2.5 MG Oral Tablet Methotrexate Sodium 2. 5 MG Methotrexate Sodium 2.5 MG 04/30/2020 12:00:00 AM EST active Methotrexate Sodium 2.5 MG eCW1 ([facility]) Methotrexate 2.5 MG Oral Tablet Methotrexate Sodium 2. 5 MG Methotrexate Sodium 2.5 MG 04/30/2020 12:00:00 AM EST active Methotrexate Sodium 2.5 MG eCW1 ([facility]) Methotrexate 2.5 MG Oral Tablet Methotrexate Sodium 2. 5 MG Methotrexate Sodium 2.5 MG 04/30/2020 12:00:00 AM EST active Methotrexate Sodium 2.5 MG eCW1 ([facility]) Methotrexate 2.5 MG Oral Tablet Methotrexate Sodium 2. 5 MG Methotrexate Sodium 2.5 MG 04/30/2020 12:00:00 AM EST active Methotrexate Sodium 2.5 MG eCW1 ([facility]) Folic Acid 1 MG Oral Tablet Folic Acid 1 MG 04/30/2020 12:00:00 AM EST 1.0 {tablet} active Folic Acid 1 MG eCW1 ([facility]) Methotrexate 2.5 MG Oral Tablet Methotrexate Sodium 2. 5 MG Methotrexate Sodium 2.5 MG 04/30/2020 12:00:00 AM EST active Methotrexate Sodium 2.5 MG eCW1 ([facility]) Folic Acid 1 MG Oral Tablet Folic Acid 1 MG 04/30/2020 12:00:00 AM EST 1.0 {tablet} active Folic Acid 1 MG eCW1 ([facility]) Methotrexate 2.5 MG Oral Tablet Methotrexate Sodium 2. 5 MG Methotrexate Sodium 2.5 MG 04/30/2020 12:00:00 AM EST active Methotrexate Sodium 2.5 MG eCW1 ([facility]) Methotrexate 2.5 MG Oral Tablet Methotrexate Sodium 2. 5 MG Methotrexate Sodium 2.5 MG 04/30/2020 12:00:00 AM EST active Methotrexate Sodium 2.5 MG eCW1 ([facility]) Folic Acid 1 MG Oral Tablet Folic Acid 1 MG 04/30/2020 12:00:00 AM EST 1.0 {tablet} active Folic Acid 1 MG eCW1 ([facility]) Methotrexate 2.5 MG Oral Tablet Methotrexate Sodium 2. 5 MG Methotrexate Sodium 2.5 MG 04/30/2020 12:00:00 AM EST active eCW1 ([facility]) Methotrexate 2.5 MG Oral Tablet Methotrexate Sodium 2. 5 MG Methotrexate Sodium 2.5 MG 04/30/2020 12:00:00 AM EST active Methotrexate Sodium 2.5 MG eCW1 ([facility]) Methotrexate 2.5 MG Oral Tablet Methotrexate Sodium 2. 5 MG Methotrexate Sodium 2.5 MG 04/30/2020 12:00:00 AM EST active Methotrexate Sodium 2.5 MG eCW1 ([facility]) Folic Acid 1 MG Oral Tablet Folic Acid 1 MG 04/30/2020 12:00:00 AM EST 1.0 {tablet} active eCW1 ([facility]) Folic Acid 1 MG Oral Tablet Folic Acid 1 MG 04/30/2020 12:00:00 AM EST 1.0 {tablet} active Folic Acid 1 MG eCW1 ([facility]) Folic Acid 1 MG Oral Tablet Folic Acid 1 MG 04/30/2020 12:00:00 AM EST 1.0 {tablet} active Folic Acid 1 MG eCW1 ([facility]) Folic Acid 1 MG Oral Tablet Folic Acid 1 MG 04/30/2020 12:00:00 AM EST 1.0 {tablet} active eCW1 ([facility]) Folic Acid 1 MG Oral Tablet Folic Acid 1 MG 04/30/2020 12:00:00 AM EST 1.0 {tablet} active Folic Acid 1 MG eCW1 ([facility]) Methotrexate 2.5 MG Oral Tablet Methotrexate Sodium 2. 5 MG Methotrexate Sodium 2.5 MG 04/30/2020 12:00:00 AM EST active Methotrexate Sodium 2.5 MG eCW1 ([facility]) Folic Acid 1 MG Oral Tablet Folic Acid 1 MG 04/30/2020 12:00:00 AM EST 1.0 {tablet} active Folic Acid 1 MG eCW1 ([facility]) Eysuvis 0.25% Ophthalmic Suspension Eysuvis 0.25% Ophthalmic Suspension 04/28/2020 12:00:00 AM EST aborted loteprednol etabonate 2.5 MG/ML Ophthalmic Suspension [Eysuvis] RODDY (Reilly Hebert [facility]) Losartan Potassium 25 MG Oral Tablet Losartan Potassium 25 M G 04/26/2020 12:00:00 AM EST 1.0 {tablet} active eCW1 ([facility]) Losartan Potassium 25 MG Oral Tablet Losartan Potassium 25 M G 04/26/2020 12:00:00 AM EST 1.0 {tablet} active Lo sartan Potassium 25 MG eCW1 ([facility]) Losartan Potassium 25 MG Oral Tablet Losartan Potassium 25 M G 04/26/2020 12:00:00 AM EST 1.0 {tablet} active Lo sartan Potassium 25 MG eCW1 ([facility]) Losartan Potassium 25 MG Oral Tablet Losartan Potassium 25 M G 04/26/2020 12:00:00 AM EST 1.0 {tablet} active Lo sartan Potassium 25 MG eCW1 ([facility]) Losartan Potassium 25 MG Oral Tablet Losartan Potassium 25 M G 04/26/2020 12:00:00 AM EST 1.0 {tablet} active Lo sartan Potassium 25 MG eCW1 ([facility]) Losartan Potassium 25 MG Oral Tablet Losartan Potassium 25 M G 04/26/2020 12:00:00 AM EST 1.0 {tablet} active Lo sartan Potassium 25 MG eCW1 ([facility]) Levothyroxine Sodium 0.125 MG Oral Tablet Levothyroxin e Sodium 125 MCG Levothyroxine Sodium 125 MCG 04/26/2020 12:00:00 AM EST active Levothyroxine Sodium 125 MCG eCW1 ([facility]) Levothyroxine Sodium 0.125 MG Oral Tablet Levothyroxin e Sodium 125 MCG Levothyroxine Sodium 125 MCG 04/26/2020 12:00:00 AM EST active Levothyroxine Sodium 125 MCG eCW1 ([facility]) Losartan Potassium 25 MG Oral Tablet Losartan Potassium 25 M G 04/26/2020 12:00:00 AM EST 1.0 {tablet} active Lo sartan Potassium 25 MG eCW1 ([facility]) Losartan Potassium 25 MG Oral Tablet Losartan Potassium 25 M G 04/26/2020 12:00:00 AM EST 1.0 {tablet} active Lo sartan Potassium 25 MG eCW1 ([facility]) Levothyroxine Sodium 0.125 MG Oral Tablet Levothyroxin e Sodium 125 MCG Levothyroxine Sodium 125 MCG 04/26/2020 12:00:00 AM EST active Levothyroxine Sodium 125 MCG eCW1 ([facility]) Levothyroxine Sodium 0.125 MG Oral Tablet Levothyroxin e Sodium 125 MCG Levothyroxine Sodium 125 MCG 04/26/2020 12:00:00 AM EST active Levothyroxine Sodium 125 MCG eCW1 ([facility]) Losartan Potassium 25 MG Oral Tablet Losartan Potassium 25 M G 04/26/2020 12:00:00 AM EST 1.0 {tablet} active Lo sartan Potassium 25 MG eCW1 ([facility]) Losartan Potassium 25 MG Oral Tablet Losartan Potassium 25 M G 04/26/2020 12:00:00 AM EST 1.0 {tablet} active Lo sartan Potassium 25 MG eCW1 ([facility]) Losartan Potassium 25 MG Oral Tablet Losartan Potassium 25 M G 04/26/2020 12:00:00 AM EST 1.0 {tablet} active Lo sartan Potassium 25 MG eCW1 ([facility]) Losartan Potassium 25 MG Oral Tablet Losartan Potassium 25 M G 04/26/2020 12:00:00 AM EST 1.0 {tablet} active Lo sartan Potassium 25 MG eCW1 ([facility]) Losartan Potassium 25 MG Oral Tablet Losartan Potassium 25 M G 04/26/2020 12:00:00 AM EST 1.0 {tablet} active Lo sartan Potassium 25 MG eCW1 ([facility]) Losartan Potassium 25 MG Oral Tablet Losartan Potassium 25 M G 04/26/2020 12:00:00 AM EST 1.0 {tablet} active Lo sartan Potassium 25 MG eCW1 ([facility]ly [facility]) Losartan Potassium 25 MG Oral Tablet Losartan Potassium 25 M G 04/26/2020 12:00:00 AM EST 1.0 {tablet} active Lo sartan Potassium 25 MG eCW1 ([facility]) Losartan Potassium 25 MG Oral Tablet Losartan Potassium 25 M G 04/26/2020 12:00:00 AM EST 1.0 {tablet} active Lo sartan Potassium 25 MG eCW1 ([facility]) Losartan Potassium 25 MG Oral Tablet Losartan Potassium 25 M G 04/26/2020 12:00:00 AM EST 1.0 {tablet} active Lo sartan Potassium 25 MG eCW1 ([facility]) Levothyroxine Sodium 0.125 MG Oral Tablet Levothyroxin e Sodium 125 MCG Levothyroxine Sodium 125 MCG 04/26/2020 12:00:00 AM EST active Levothyroxine Sodium 125 MCG eCW1 ([facility]) Losartan Potassium 25 MG Oral Tablet Losartan Potassium 25 M G 04/26/2020 12:00:00 AM EST 1.0 {tablet} active Lo sartan Potassium 25 MG eCW1 ([facility]) Losartan Potassium 25 MG Oral Tablet Losartan Potassium 25 M G 04/26/2020 12:00:00 AM EST 1.0 {tablet} active Lo sartan Potassium 25 MG eCW1 ([facility]) Losartan Potassium 25 MG Oral Tablet Losartan Potassium 25 M G 04/26/2020 12:00:00 AM EST 1.0 {tablet} active Lo sartan Potassium 25 MG eCW1 ([facility]) Losartan Potassium 25 MG Oral Tablet Losartan Potassium 25 M G 04/26/2020 12:00:00 AM EST 1.0 {tablet} active Lo sartan Potassium 25 MG eCW1 ([facility]) Levothyroxine Sodium 0.125 MG Oral Tablet Levothyroxin e Sodium 125 MCG Levothyroxine Sodium 125 MCG 04/26/2020 12:00:00 AM EST active Levothyroxine Sodium 125 MCG eCW1 ([facility]) Losartan Potassium 25 MG Oral Tablet Losartan Potassium 25 M G 04/26/2020 12:00:00 AM EST 1.0 {tablet} active Lo sartan Potassium 25 MG eCW1 ([facility]) Losartan Potassium 25 MG Oral Tablet Losartan Potassium 25 M G 04/26/2020 12:00:00 AM EST 1.0 {tablet} active Lo sartan Potassium 25 MG eCW1 ([facility]) Losartan Potassium 25 MG Oral Tablet Losartan Potassium 25 M G 04/26/2020 12:00:00 AM EST 1.0 {tablet} active Lo sartan Potassium 25 MG eCW1 ([facility]) Levothyroxine Sodium 0.125 MG Oral Tablet Levothyroxin e Sodium 125 MCG Levothyroxine Sodium 125 MCG 04/26/2020 12:00:00 AM EST active Levothyroxine Sodium 125 MCG eCW1 ([facility]) Losartan Potassium 25 MG Oral Tablet Losartan Potassium 25 M G 04/26/2020 12:00:00 AM EST 1.0 {tablet} active eCW1 ([facility]) Losartan Potassium 25 MG Oral Tablet Losartan Potassium 25 M G 04/26/2020 12:00:00 AM EST 1.0 {tablet} active Lo sartan Potassium 25 MG eCW1 ([facility]) besifloxacin 6 MG/ML Ophthalmic Suspensi on [Besivance] Besivance 0.6% Ophthalmic Suspension Besivance 0.6% Ophthalmic Suspension 04/20/2020 12:00:00 AM EST aborted besifloxacin 6 MG/ML Ophthalmic Suspension [Besivance] RODDY (Reilly Hebert MD [facility]) doxycycline hyclate 20 MG Oral Tablet Doxycycline Hycl ate 20 MG Oral Tablet Doxycycline Hyclate 20 MG Oral Tablet 04/02/2020 12:00:00 AM EST 1 aborted doxycycline hyclate 20 MG Oral T timt RODDY (Reilly Hebert MD [facility]) Levothyroxine Sodium 0.112 MG Oral Table t Levothyroxine Sodium 112 MCG Oral Tablet Levothyroxine Sodium 112 MCG Oral Tablet 04/02/2020 12:00:00 AM EST 1 active levothyroxine sodium 0.112 MG Oral Tablet RODDY (Reilly Hebert MD [facility]) moxifloxacin 5 MG/ML Ophthalmic Solution Moxifloxacin HCl 0.5% Ophthalmic Solution Moxifloxacin HCl 0.5% Ophthalmic Solution 03/29/2020 12:00:00 AM EST aborted moxifloxacin 5 MG/ML Oph thalmic Solution RODDY (Reilly Hebert MD [facility]) Erythromycin 0.005 MG/MG Ophthalmic Oint ment Erythromycin 5 MG/GM Ophthalmic Ointment Erythromycin 5 MG/GM Ophthalmic Ointment 03/16/2020 12:00:00 AM EST aborted erythromycin 0.005 MG/MG Ophthalmic Ointment RODDY (Reilly Hebert MD [facility]) moxifloxacin 5 MG/ML Ophthalmic Solution Moxifloxacin HCl 0.5% Ophthalmic Solution Moxifloxacin HCl 0.5% Ophthalmic Solution 03/12/2020 12:00:00 AM EST aborted moxifloxacin 5 MG/ML Oph thalmic Solution RODDY (Reilly Hebert MD [facility]) Polymyxin B 17121 UNT/ML / Trimethoprim 1 MG/ML Ophthalmic Solution [Polytrim] Polytrim 38707-8.1 UNIT/ML-% Ophthalmic Solution Polytrim 21965-2.1 UNIT/ML-% Ophthalmic Solution 03/12/2020 12:00:00 AM EST aborted polymyxin B 67678 UNT/ML / trimethoprim 1 MG/ML Ophthalmic Solution [Polytrim] RODDY (Reilly Hebert MD [facility]) Levothyroxine Sodium 0.112 MG Oral Tablet Levothyroxin e Sodium 112 MCG Levothyroxine Sodium 112 MCG 03/08/2020 12:00:00 AM EST active Levothyroxine Sodium 112 MCG eCW1 ([facility]) Levothyroxine Sodium 0.112 MG Oral Tablet Levothyroxin e Sodium 112 MCG Levothyroxine Sodium 112 MCG 03/08/2020 12:00:00 AM EST active Levothyroxine Sodium 112 MCG eCW1 ([facility]) Levothyroxine Sodium 0.112 MG Oral Tablet Levothyroxin e Sodium 112 MCG Levothyroxine Sodium 112 MCG 03/08/2020 12:00:00 AM EST active Levothyroxine Sodium 112 MCG eCW1 ([facility]) Levothyroxine Sodium 0.112 MG Oral Tablet Levothyroxin e Sodium 112 MCG Levothyroxine Sodium 112 MCG 03/08/2020 12:00:00 AM EST active Levothyroxine Sodium 112 MCG eCW1 ([facility]) Levothyroxine Sodium 0.112 MG Oral Tablet Levothyroxin e Sodium 112 MCG Levothyroxine Sodium 112 MCG 03/08/2020 12:00:00 AM EST active Levothyroxine Sodium 112 MCG eCW1 ([facility]) apixaban 5 MG Oral Tablet Apixaban (ELIQUIS) 5 MG TABS tablet Apixaban (ELIQUIS) 5 MG TABS tablet 03/04/2020 12:00:00 AM EST 5 mg Oral active Persistent atrial fibrillation Take 1 tablet (5 mg total) by mouth 2 (t wo) times a day [facility] Persistent atrial fibrillation Metoprolol Tartrate 100 MG Oral Tablet m etoprolol tartrate (LOPRESSOR) 100 MG tablet metoprolol tartrate (LOPRESSOR) 100 MG tablet 03/04/2020 12: 00:00 AM EST 150 mg Oral active Persistent atrial fibrillation Take 1.5 tablets (150 mg total) by mouth 2 (two) times a day [facility] Persistent atrial fibrillation Dexamethasone 1 MG/ML / Tobramycin 3 MG/ ML Ophthalmic Suspension [Tobradex] TobraDex 0.3-0.1% Ophthalmic Suspension TobraDex 0.3-0.1% Ophthalmic Suspension 02/11/2020 12:00:00 AM EDT aborted dexamethasone 1 MG/ML / tobramycin 3 MG/ML Ophthalmic Suspension [Tobradex] RODDY (Reilly Hebert MD [facility]) Spironolactone 25 MG Oral Tablet spironolactone (ALDAC TONE) 25 MG tablet spironolactone (ALDACTONE) 25 MG tablet 01/12/2020 12:00:00 AM EDT 12.5 mg Oral active Take 0.5 tablets (12 .5 mg total) by mouth daily [facility] Furosemide 20 MG Oral Tablet furosemide (LASIX) 20 MG tablet furosemide (LASIX) 20 MG tablet 12/30/2019 12:00:00 AM EDT 20 mg Oral abort ed Take 1 tablet (20 mg total) by mouth daily [facility] Erythromycin 0.005 MG/MG Ophthalmic Oint ment Erythromycin 5 MG/GM Ophthalmic Ointment Erythromycin 5 MG/GM Ophthalmic Ointment 10/01/2019 12:00:00 AM EDT aborted erythromycin 0.005 MG/MG Ophthalmic Ointment RODDY (Reilly Hebert MD [facility]) Dexamethasone 1 MG/ML / Tobramycin 3 MG/ ML Ophthalmic Suspension [Tobradex] TobraDex 0.3-0.1% Ophthalmic Suspension TobraDex 0.3-0.1% Ophthalmic Suspension 10/01/2019 12:00:00 AM EDT aborted dexamethasone 1 MG/ML / tobramycin 3 MG/ML Ophthalmic Suspension [Tobradex] RODDY (Reilly Hebert MD [facility]) fluticasone (FLONASE) 50 MCG/ACT nasal spray [id number] 06/03/2019 12:00:00 AM EST aborted as needed [facility] Potassium Chloride 20 MEQ Extended Relea se Oral Tablet Potassium Chloride ER 20 MEQ TBCR Potassium Chloride ER 20 MEQ TBCR 05/26/2019 12:00:00 AM EST 1 {tbl} Oral aborted Take 1 tablet by kimberlee th daily [facility] Levothyroxine 0.137MG Oral Tablet Levothyroxine 0.137MG Oral Tablet 12/03/2018 12:00:00 AM EDT 1 aborted Levothy roxine RODDY (Reilly Hebert MD [facility]) Metoprolol Tartrate 100 MG Oral Tablet Metoprolol Tart rate 100MG Oral Tablet Metoprolol Tartrate 100MG Oral Tablet 04/24/2018 12:00:00 AM EST 1 aborted metoprolol tartrate 100 MG Oral Tablet RODDY (Reilly Hebert MD [facility]) Chlorthalidone 25 MG Oral Tablet chlorthalidone (HYGRO TEN) 25 MG tablet chlorthalidone (HYGROTEN) 25 MG tablet 25 mg Oral aborted Take 25 mg by mouth daily [facility] Bisoprolol Fumarate 10 MG Oral Tablet bisoprolol (ZEBE TA) 10 MG tablet bisoprolol (ZEBETA) 10 MG tablet 10 mg Oral abort ed Take 10 mg by mouth daily [facility] Bisoprolol Fumarate 10 MG / Hydrochlorot hiazide 6.25 MG Oral Tablet bisoprolol- hydrochlorothiazide (ZIAC) 10-6.25 MG per tablet bisoprolol-hydrochlorothiazide (ZIAC) 10-6.25 MG per tablet 1 {tbl} Oral aborted Take 1 tablet by mouth daily [facility] Levothyroxine Sodium 0.1 MG Oral Tablet levothyroxine (SYNTHROID, LEVOTHROID) 100 MCG tablet levothyroxine (SYNTHROID, LEVOTHROID) 100 MCG tablet 100 ug Oral aborted Take 100 mcg by mout h daily [facility] Hydrochlorothiazide 25 MG Oral Tablet hy drochlorothiazide (HYDRODIURIL) 25 MG tablet hydrochlorothiazide (HYDRODIURIL) 25 MG tablet 25 mg O ral aborted Take 25 mg by mouth daily [facility] Insurance Providers Payer name Policy type / Coverage type Policy ID Covered libertarian ID Covered libertarian's relationship to casarez Policy Casarez Plan Information [employer] () Workers Compensation [id number] 2.16.840.1.604943.3.227.99.991.72064.0 Self D [id number] [employer] () Workers Compensation [id number] 2.16.840.1.226058.3.227.99.991.97941.0 Self D [id number] [employer] () Workers Compensation [id number] 2.16.840.1.289743.3.227.99.991.18252.0 Self D [id number] [employer] () Workers Compensation [id number] 2.16.840.1.940592.3.227.99.991.06867.0 Self D [id number] [employer] () Workers Compensation [id number] 2.16.840.1.200628.3.227.99.991.81343.0 Self D [id number] [employer] () Workers Compensation [id number].[id number] Self [id number] [employer] () Workers Compensation [id number] Self [id number] [employer] [facility]) Workers Compensation [id number] 2.16.840.1.386784.3.227.99.991.57730.0 Self D [id number] [facility] () Workers Compensation [id number] 2.16840.1.057303.3.227.99.991.87848.0 Self [id number] [employer] () Workers Compensation [id number] Self [id number] MVP (pr) Commercial [id number] 2.16840.1.140404.3.227.99.9 91.73963.0 Family Dependent [id number] MVP (pr) Commercial 2.840.1.401910.3.227.99.991.87099.0 Family Dependent BS [employer] Part B 2.840.1.507223.3.227. 99.991.25123.0 Self BS [employer] Part B [id number] Self [id number] [employer] () Workers Compensation [id number] Self [employer] () Workers Compensation [id number] 2.16840.1.731647.3.227.99.991.88041.0 Self [id number]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 04/08/2020 12:0 0:00 AM EST [facility] ([facility]) 371.02 Corneal Opacity Corneal Opacity Problem 04/08/2020 12:0 0:00 AM EST [facility] ([facility]) 371.02 Corneal Opacity Corneal Opacity Problem 04/08/2020 12:0 0:00 AM EST [facility] ([facility]) 371.02 Corneal Opacity Corneal Opacity Problem 04/08/2020 12:0 0:00 AM EST [facility] ([facility]) 371.02 Corneal Opacity Corneal Opacity Problem 04/08/2020 12:0 0:00 AM EST [facility] ([facility]) 371.02 Corneal Opacity Corneal Opacity Problem 04/08/2020 12:0 0:00 AM EST [facility] ([facility]) 371.02 Corneal Opacity Corneal Opacity Problem 04/08/2020 12:0 0:00 AM EST [facility] ([facility]) 35780342 Dry Eye Syndrome Right Eye Dry Eye Syndrome Right Eye Problem 01/02/2020 12:00:00 AM EDT [facility] ([facility]) 44395994 Dry Eye Syndrome Right Eye Dry Eye Syndrome Right Eye Problem 01/02/2020 12:00:00 AM EDT [facility] ([facility]) 53962800 Dry Eye Syndrome Right Eye Dry Eye Syndrome Right Eye Problem 01/02/2020 12:00:00 AM EDT [facility] ([facility]) 90125618 Dry Eye Syndrome Right Eye Dry Eye Syndrome Right Eye Problem 01/02/2020 12:00:00 AM EDT [facility] ([facility]) 56671912 Dry Eye Syndrome Right Eye Dry Eye Syndrome Right Eye Problem 01/02/2020 12:00:00 AM EDT [facility] ([facility]) 06488800 Dry Eye Syndrome Right Eye Dry Eye Syndrome Right Eye Problem 01/02/2020 12:00:00 AM EDT [facility] ([facility]) 55473250 Dry Eye Syndrome Right Eye Dry Eye Syndrome Right Eye Problem 01/02/2020 12:00:00 AM EDT [facility] ([facility]) 18530490 Dry Eye Syndrome Right Eye Dry Eye Syndrome Right Eye Problem 01/02/2020 12:00:00 AM EDT [facility] ([facility]) 62273981 Dry Eye Syndrome Right Eye Dry Eye Syndrome Right Eye Problem 01/02/2020 12:00:00 AM EDT [facility] ([facility]) 14922483 Dry Eye Syndrome Right Eye Dry Eye Syndrome Right Eye Problem 01/02/2020 12:00:00 AM EDT [facility] ([facility]) 24672528 Dry Eye Syndrome Right Eye Dry Eye Syndrome Right Eye Problem 01/02/2020 12:00:00 AM EDT [facility] ([facility]) 80314418 Dry Eye Syndrome Right Eye Dry Eye Syndrome Right Eye Problem 01/02/2020 12:00:00 AM EDT [facility] ([facility]) 69678640 Dry Eye Syndrome Right Eye Dry Eye Syndrome Right Eye Problem 01/02/2020 12:00:00 AM EDT [facility] ([facility]) 65399266 Dry Eye Syndrome Right Eye Dry Eye Syndrome Right Eye Problem 01/02/2020 12:00:00 AM EDT [facility] ([facility]) 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 C orneal Degeneration Recurrent Erosion Problem 04/30/2018 12:00:00 AM EST - 06/15/2020 12:00:00 AM EST [facility] ([facility]) 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 C orneal Degeneration Recurrent Erosion Problem 04/30/2018 12:00:00 AM EST - 06/15/2020 12:00:00 AM EST [facility] ([facility]) 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 C orneal Degeneration Recurrent Erosion Problem 04/30/2018 12:00:00 AM EST - 06/15/2020 12:00:00 AM EST [facility] ([facility]) 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 C orneal Degeneration Recurrent Erosion Problem 04/30/2018 12:00:00 AM EST - 06/15/2020 12:00:00 AM EST [facility] ([facility]) 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 C orneal Degeneration Recurrent Erosion Problem 04/30/2018 12:00:00 AM EST - 06/15/2020 12:00:00 AM EST [facility] ([facility]) 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 C orneal Degeneration Recurrent Erosion Problem 04/30/2018 12:00:00 AM EST - 06/15/2020 12:00:00 AM EST [facility] ([facility]) 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 C orneal Degeneration Recurrent Erosion Problem 04/30/2018 12:00:00 AM EST - 06/15/2020 12:00:00 AM EST [facility] ([facility]) Surgeries/Procedures Procedure Description Date Indications Data Source(s) Electrocardiogram Complete 01/06/2021 12:00:00 AM EDT [facility] ([facility]) OFFICE OUTPATIENT NEW 60 MINUTES 01/06/2021 12:00:00 A M EDT [facility] ([facility]) BLOOD COUNT COMPLETE AUTO&AUTO DIFRNTL WBC COUNT <td>C BC AND DIFFERENTIAL</td><td>Routine</td><td>01/03/2021</td><td></td><td> </td> 01/03/2021 12:00:00 AM EDT [facility] HEPATIC FUNCTION PANEL <td>HEPATIC FUNCTION PANEL</td><td>Routine</td><td>01/03/2021</td><td></td><td> </td> 01/03/2021 12:00:00 AM EDT [facility] BASIC METABOLIC PANEL CALCIUM TOTAL <td>BASIC METABOLI C PANEL</td><td>Routine</td><td>01/03/2021</td><td></td><td> </td> 01/03/2021 12:00:00 AM EDT [facility] OFFICE OUTPATIENT VISIT 10 MINUTES 12/06/2020 12:00:00 AM EDT [facility] ([facility], ) POCT AMB EKG <td>POCT AMB EKG</td><td>Rou gt</td><td>11/11/2020 3:54 PM EDT</td><td> Paroxysmal atrial fibrillation</td><td> </td> 11/11/2020 03:54:00 PM EDT Paroxysmal atrial fibrillation [facility] Paroxysmal atrial fibrillation OFFICE OUTPATIENT VISIT 40 MINUTES 11/09/2020 12:00:00 AM EDT [facility] ([facility]) OFFICE OUTPATIENT VISIT 25 MINUTES 11/09/2020 12:00:00 AM EDT [facility] ([facility]) Endoscopy Nasal Diagnostic 11/08/2020 12:00:00 AM EDT [facility] ([facility], ) OFFICE OUTPATIENT VISIT 10 MINUTES 11/08/2020 12:00:00 AM EDT [facility] ([facility]) INJECTION 1 TENDON SHEATH/LIGAMENT APONEUROSIS 021 12:00:00 AM EDT [facility] ([facility]) OFFICE OUTPATIENT VISIT 25 MINUTES 10/22/2020 12:00:00 AM EDT [facility] ([facility]) OFFICE OUTPATIENT VISIT 5 MINUTES 10/18/2020 12:00:00 AM EDT [facility] ([facility]) ECG ROUTINE ECG W/LEAST 12 LDS W/I&R <td>POCT AMB EKG</td><td>Routine</td><td>10/14/2020 3:28 PM EDT</td><td> Paroxysmal atrial fibrillation</td><td> </td> 10/14/2020 03:28:00 PM EDT Paroxysmal atrial fibrillation [facility] Paroxysmal atrial fibrillation ECG ROUTINE ECG W/LEAST 12 LDS W/I&R <td>POCT AMB EKG</td><td>Routine</td><td>10/11/2020 4:42 PM EDT</td><td> Paroxysmal atrial fibrillation</td><td> </td> 10/11/2020 04:42:00 PM EDT Paroxysmal atrial fibrillation [facility] Paroxysmal atrial fibrillation Spirometry 10/07/2020 12:00:00 AM [facility] OFFICE OUTPATIENT VISIT 25 MINUTES 10/07/2020 12:00:00 AM ED[facility] ECG ROUTINE ECG W/LEAST 12 LDS W/I&R <td>POCT AMB EKG</td><td>Routine</td><td>10/05/2020 12:33 PM EDT</td><td> Paroxysmal atrial fibrillation</td><td> </td> 10/05/2020 12:33:00 PM EDT Paroxysmal atrial fibrillation [facility] Paroxysmal atrial fibrillation Endoscopy Nasal Diagnostic 10/05/2020 12:00:00 AM ED[facility] OFFICE OUTPATIENT VISIT 10 MINUTES 10/05/2020 12:00:00 AM EDT [facility] ([facility], ) HEPATIC FUNCTION PANEL <td>HEPATIC FUNCTION PANEL</td><td>Routine</td><td>09/23/2020</td><td></td><td> </td> 09/23/2020 12:00:00 AM EDT [facility] BASIC METABOLIC PANEL CALCIUM TOTAL <td>BASIC METABOLI C PANEL</td><td>Routine</td><td>09/23/2020</td><td></td><td> </td> 09/23/2020 12:00:00 AM EDT [facility] TROPONIN QUANTITATIVE <td>TROPONIN I</td><td>Routine</td><td>09/22/2020</td><td></td><td> </td> 09/22/2020 12:00:00 AM EDT [facility] TROPONIN QUANTITATIVE <td>TROPONIN I</td><td>Routine</td><td>09/22/2020</td><td></td><td> </td> 09/22/2020 12:00:00 AM EDT [facility] BLOOD COUNT COMPLETE AUTO&AUTO DIFRNTL WBC COUNT <td>C BC AND DIFFERENTIAL</td><td>Routine</td><td>09/22/2020</td><td></td><td> </td> 09/22/2020 12:00:00 AM EDT [facility] DRUG SCREEN QUALITATIVE DIGOXIN <td>DIGOXIN LEVEL</td><td>Routine</td><td>09/22/2020</td><td></td><td> </td> 09/22/2020 12:00:00 AM EDT [facility] HEPATIC FUNCTION PANEL <td>HEPATIC FUNCTION PANEL</td><td>Routine</td><td>09/22/2020</td><td></td><td> </td> 09/22/2020 12:00:00 AM EDT [facility] BASIC METABOLIC PANEL CALCIUM TOTAL <td>BASIC METABOLI C PANEL</td><td>Routine</td><td>09/22/2020</td><td></td><td> </td> 09/22/2020 12:00:00 AM EDT [facility] BASIC METABOLIC PANEL CALCIUM TOTAL <td>BASIC METABOLI C PANEL</td><td>Routine</td><td>09/22/2020</td><td></td><td> </td> 09/22/2020 12:00:00 AM EDT [facility] Surgical / procedural history Gastropar esis 2018, Gallbladder surgery 2007, Injections right eye by Dr. Hoover every 10 weeks, Endoscopic DCR w/ Dr. Webb on 08/25/20 Surgical / procedural history Gastropar esis 2018, Gallbladder surgery 2008, Injections right eye by Dr. Hoover every 10 weeks, Endoscopic DCR w/ Dr. Webb on 08/25/20 09/15/2020 12:00:00 AM EDT [facility] (Murali Hebert MD [facility]) Intermediate Eye Exam Established Patient Intermediate Eye Exam Established Patient 09/14/2020 12:00:00 AM EDT [facility] (Murali Hebert MD [facility]) Intermediate Eye Exam Established Patient Intermediate Eye Exam Established Patient 09/14/2020 12:00:00 AM EDT [facility] (Murali Hebert MD [facility]) OFFICE OUTPATIENT VISIT 15 MINUTES 09/09/2020 12:00:00 AM EDT [facility] ([facility], ) Surgical / procedural history Gastropar esis [...] 12:00:00 AM EDT [facility] (Reilly Hebert MD [facility]) Intermediate Eye Exam Established Patient Intermediate Eye Exam Established Patient 09/02/2020 12:00:00 AM EDT RODDY (Murali Hebert MD [facility]) NASAL/SINUS NDSC SURG W/DACRYOCSTORHINOSTOMY 12:00:00 AM EDT MEDENT ([facility], ) OFFICE OUTPATIENT VISIT 15 MINUTES 08/19/2020 12:00:00 AM EDT MEDENT ([facility], ) ECG ROUTINE ECG W/LEAST 12 LDS W/I&R <td>POCT AMB EKG</td><td>Routine</td><td>08/17/2020 9:21 AM EDT</td><td> Preoperative cardiovascular examination</td><td> </td> 08/17/2020 09:21:00 AM EDT Preoperative cardiovascular examination [facility] Preoperative cardiovascular examination OFFICE OUTPATIENT VISIT 25 MINUTES 08/03/2020 12:00:00 AM EDT MEDENT ([facility]) OFFICE OUTPATIENT VISIT 15 MINUTES 07/19/2020 12:00:00 AM EDT MEDENT ([facility]) PROBE LACRIMAL CANALICULI W/WO IRRIGATION PROBING LACR IMAL CANALICULI W OR W/O IRRIGATION (Right Side) 07/16/2020 12:00:00 AM EDT RODDY (Reilly Hebert MD [facility]) Surgical / procedural history Gastropar esis 2018, CHF 2016, Gallbladder surgery 2008, Injections right eye by Dr. Hoover Surgical / procedural history Gastroparesis 2018, CHF 2016, Gallbladder surgery 2008, Injections right eye by Dr. Hoover 07/16/2020 12:00:00 AM EDT RODDY (Murali Hebert MD [facility]) PROBE LACRIMAL CANALICULI W/WO IRRIGATION PROBING LACR IMAL CANALICULI W OR W/O IRRIGATION (RT) 07/16/2020 12:00:00 AM EDT RODDY (Murali Hebert MD [facility]) OFFICE OUTPATIENT VISIT 15 MINUTES 07/12/2020 12:00:00 AM EDT MEDENT ([facility]) OFFICE OUTPATIENT VISIT 15 MINUTES 07/09/2020 12:00:00 AM EDT MEDENT ([facility]) Intermediate Eye Exam Established Patient Intermediate Eye Exam Established Patient 06/15/2020 12:00:00 AM EST RODDY (Murali Hebert MD [facility]) Surgical / procedural history Gastropar esis 2018, CHF 2016, Gallbladder surgery 2008, Injections right eye by Dr. Hoover every 10 weeks Surgical / procedural history Gastroparesis 2018, CHF 2016, Gallbladder surgery 2008, Injections right eye by Dr. Hoover every 10 weeks 06/15/2020 12:00:00 AM EST RODDY (Reilly Hbeert MD [facility]) Intermediate Eye Exam Established Patient Intermediate Eye Exam Established Patient 06/15/2020 12:00:00 AM EST RODDY (Murali Hebert MD [facility]) Intermediate Eye Exam Established Patient Intermediate Eye Exam Established Patient 05/13/2020 12:00:00 AM EST RODDY (Murali Hebert MD [facility]) Surgical / procedural history Gastropar esis 2018, CHF 2016, Gallbladder surgery 2008, Injections right eye by Dr. Hoover every 10 weeks Surgical / procedural history Gastroparesis 2018, CHF 2016, Gallbladder surgery 2008, Injections right eye by Dr. Hoover every 10 weeks 05/13/2020 12:00:00 AM EST RODDY (Reilly Hebert MD [facility]) Intermediate Eye Exam Established Patient Intermediate Eye Exam Established Patient 04/28/2020 12:00:00 AM EST RODDY (Murali Hebert MD [facility]) Intermediate Eye Exam Established Patient Intermediate Eye Exam Established Patient 04/20/2020 12:00:00 AM EST RODDY (Murali Hebert MD [facility]) Intermediate Eye Exam Established Patient Intermediate Eye Exam Established Patient 04/08/2020 12:00:00 AM EST RODDY (Murali Hebert MD [facility]) Intermediate Eye Exam Established Patient Intermediate Eye Exam Established Patient 04/08/2020 12:00:00 AM EST RODDY (Murali Hebert MD [facility]) Intermediate Eye Exam Established Patient Intermediate Eye Exam Established Patient 04/02/2020 12:00:00 AM EST RODDY (Murali Hebert MD [facility]) Intermediate Eye Exam Established Patient Intermediate Eye Exam Established Patient 04/02/2020 12:00:00 AM EST RODDY (Murali Hebert MD [facility]) Intermediate Eye Exam Established Patient Intermediate Eye Exam Established Patient 03/23/2020 12:00:00 AM EST RODDY (Murali Hebert MD [facility]) Intermediate Eye Exam Established Patient Intermediate Eye Exam Established Patient 03/23/2020 12:00:00 AM EST RODDY (Murali Hebert MD [facility]) Intermediate Eye Exam Established Patient Intermediate Eye Exam Established Patient 03/16/2020 12:00:00 AM EST RODDY (Murali Hebert MD [facility]) Intermediate Eye Exam Established Patient Intermediate Eye Exam Established Patient 03/12/2020 12:00:00 AM EST RODDY (Murali Hebert MD [facility]) Surgical / procedural history Gallbladd er [...] 12:00:00 AM EST RODDY (Reilly Hebert MD [facility]) Intermediate Eye Exam Established Patient Intermediate Eye Exam Established Patient 03/12/2020 12:00:00 AM EST RODDY (Murali escobar Hemanth Mekhi Hebert MD [facility]) INJECTION 1 TENDON SHEATH/LIGAMENT APONEUROSIS 020 12:00:00 AM EST MEDENT ([facility] ) RADEX HAND MINIMUM 3 VIEWS 03/01/2020 12:00:00 AM EST MEDENT ([facility]) Intermediate Eye Exam Established Patient Intermediate Eye Exam Established Patient 02/11/2020 12:00:00 AM EDT RODDY (Murali Hebert MD [facility]) Intermediate Eye Exam Established Patient Intermediate Eye Exam Established Patient 02/11/2020 12:00:00 AM EDT RODDY (Murali escobar Hemanth Mekhi Hebert MD [facility]) Diabetic Foot Exam 02/10/2020 12:00:00 AM EDT MEDENT ([facility]) Immunization: Flublok Quadrivalent (18 years & older) 0.5mL IM (Influenza) 01/22/2020 12:00:00 AM EDT eCW1 ([facility]) Intermediate Eye Exam Established Patient Intermediate Eye Exam Established Patient 01/02/2020 12:00:00 AM EDT RODDY (Murali Hebert MD [facility]) Cataract surgery (procedure) History of cataract surgery -b oth eyes 201201/02/2020 12:00:00 AM EDT RODDY (Reilly cornell MD [facility]) Surgical / procedural history Gallbladd er surgery 2007, Removal conjunctival concretion right lower eyelid by Dr. Torres 11/21/2019 Surgical / procedural history Gallbladder surgery 2007, Removal conjunctival concretion right lower eyelid by Dr. Torres 11/21/2019 01/02/2020 12:00:00 AM EDT RODDY (Reilly Hebert MD [facility]) Intermediate Eye Exam Established Patient Intermediate Eye Exam Established Patient 01/02/2020 12:00:00 AM EDT RODDY (Murali Hebert MD [facility]) Results ID Date Data Source [id number] 01/31/2021 11:23:00 AM EDT [facility] CT A NGIO CHESTCLINICAL HISTORY: Paroxysmal atrial fibrillation. Preablation study.COMPARISON: CT chest Rosy 13, 2017TECHNIQUE: Helical acquired CTA images were obtained. Multiplanar [...] 11:51 AMTranscribed by: janis on 01/31/2021 11:51 [facility] G code: , ,CDS Modifier: , ,cc: Name Value Range Interpretation Code Description Data Kathleen rce(s) Supporting Document(s) ID Date Data Source [id number] 01/03/2021 11:02:00 AM EDT [facility] Name Value Range Interpretation Code Description Data Kathleen rce(s) Supporting Document(s) [facility]IGEN [facility] This lab was ordered by RONAN maxwell nd reported by [facility]. ID Date Data Source Basic Metabolic Profile (BMP) 01/03/2021 12:00:00 AM EDT eCW 1 ([facility]) Name Value Range Interpretation Code Description Data Kathleen rce(s) Supporting Document(s) 282 70-100 GLUCOSE, FASTING eCW1 ([facility]) 22 7-18 BLOOD UREA NITROGEN eCW1 ([facility]) 46.9 >39 GLOMERULAR FILTRATION RATE eCW 1 ([facility]) 1.20 0.55-1.30 CREATININE FOR GFR eCW1 ([facility]) 138 136-145 SODIUM LEVEL eCW1 ([facility]) 4.4 3.5-5.1 POTASSIUM SERUM eCW1 ([facility]) 105 98-107 CHLORIDE LEVEL eCW1 ([facility]) 28 21-32 CARBON DIOXIDE LEVEL eCW1 ([facility]) 9.0 8.8-10.2 CALCIUM LEVEL eCW1 ([facility]) ID Date Data Source CBC with Differential 01/03/2021 12:00:00 AM EDT eCW1 ([facility]) Name Value Range Interpretation Code Description Data Kathleen rce(s) Supporting Document(s) 13.1 12.0-15.5 HEMOGLOBIN eCW1 ([facility]) 12.2 4.0-10.0 WHITE BLOOD COUNT eCW1 ([facility]) 4.31 4.00-5.40 RED BLOOD COUNT eCW1 ([facility]) 30.4 27.0-33.0 MEAN CORPUSCULAR HEMOGLOB IN eCW1 ([facility]) 39.7 36.0-47.0 HEMATOCRIT eCW1 ([facility]) 92.1 80.0-96.0 MEAN CORPUSCULAR VOLUME e CW1 ([facility]) 51.3 36.0-66.0 NEUTROPHILS % eCW1 ([facility]) 14.2 11.5-14.5 RED CELL DISTRIBUTION WID TH eCW1 ([facility]) 33.0 32.0-36.5 MEAN CORPUSCULAR HGB CONC eCW1 ([facility]) 263 150-450 PLATELET COUNT, AUTOMATED eCW1 ([facility]) 36.7 24.0-44.0 LYMPH % eCW1 ([facility]) 8.1 2.0-8.0 MONO % eCW1 ([facility]) 4.5 1.5-5.0 LYMPH # eCW1 ([facility]) 2.8 0.0-3.0 EOS % eCW1 ([facility]) 0.6 0.0-1.0 BASO % eCW1 ([facility]) 6.3 1.5-8.5 NEUTROPHILS # eCW1 ([facility]) 0.3 0.0-0.5 EOS # eCW1 ([facility] hospital) 0.1 0.0-0.2 BASO # eCW1 ([facility]) 1.0 0.0-0.8 MONO # eCW1 ([facility]) ID Date Data Source NT-PRO BNP 01/03/2021 12:00:00 AM EDT eCW1 ([facility]) Name Value Range Interpretation Code Description Data Kathleen rce(s) Supporting Document(s) 1094 <125 NT-PRO BNP eCW1 ([facility]) ID Date Data Source WATSON COVID AG (Point of Care) 01/03/2021 12:00:00 AM EDT eC W1 ([facility]) Name Value Range Interpretation Code Description Data Kathleen rce(s) Supporting Document(s) NEGATIVE NEGATIVE [place] COVID ANTIGEN eCW1 ([facility]) ID Date Data Source LIPID PANEL (CARDIAC RISK) 12/20/2020 12:00:00 AM EDT eCW1 ( [facility]) Name Value Range Interpretation Code Description Data Kathleen rce(s) Supporting Document(s) Triglyceride [Mass/volume] in Serum or Plasma by calculation 238 <150 TRIGLYCERIDES LEVEL eCW1 ([facility]) 132 NON-HDL-C eCW1 ([facility] hospital) Cholesterol in LDL [Mass/volume] in Serum or Plasma by calculation 84 <100 LDL CHOLESTEROL eCW1 ([facility]) Cholesterol in HDL [Moles/volume] in Serum or Plasma 36 >40 HDL CHOLESTEROL eCW1 ([facility]) Cholesterol [Moles/volume] in Serum or Plasma 168 <200 CHOLESTEROL LEVEL eCW1 ([facility]) 4.666 <5 CHOLESTEROL RISK RATIO eCW1 ([facility]) ID Date Data Source [id number] 12/09/2020 07:57:00 PM EDT [facility] Name Value Range Interpretation Code Description Data Kathleen rce(s) Supporting Document(s) SARS coronavirus 2 RNA [Presence] in Res piratory specimen by BOLA with probe detection NEGATIVE [facility] This lab was ordered by [facility] a nd reported by [facility]. ID Date Data Source [id number] 11/20/2020 06:55:55 PM EDT [facility] Name Value Range Interpretation Code Description Data Kathleen rce(s) Supporting Document(s) &PDF [facility] GSTXWj8zHmHRVgBw32/IZEanIPIia6CaQOzzCCn6JYtiBLGxQ8GiwFbrALPZM44OHHpBHaMMUHSPLDUY 0b3 [file] AgICAgICAgICAgICAgICAgICAgICAgICAgICAgICAgICAgICAgICAgICAgICANCiAgICAgICAgICAgIC AgICAgICAgICAgICAgICAgICAgICAgICAgICAgICAg ICAgICAgICAgICAgICAgICAgICAgICAgICAgICAgICAgICAgICAgICAgICAgICAgICAgICAgICANCiAg ICAgICAgICAgICAgICAgICAgICAgICAgICAgICAgICAgICAgICAgICAgICAgICAgICAgICAgICAgICAg ICAgICAgICAgICAgICAgICAgICAgICAgICAgICAgIC AgICAgICANCiAgICAgICAgICAgICAgICAgICAgICAgICAgICAgICAgICAgICAgICAgICAgICAgICAgIC AgICAgICAgICAgICAgICAgICAgICAgICAgICAgICAgICAgICAgICAgICAgICAgICANCiAgICAgICAgIC AgICAgICAgICAgICAgICAgICAgICAgICAgICAgICAg ICAgICAgICAgICAgICAgICAgICAgICAgICAgICAgICAgICAgICAgICAgICAgICAgICAgICAgICAgICAN CiAgICAgICAgICAgICAgICAgICAgICAgICAgICAgICAgICAgICAgICAgICAgICAgICAgICAgICAgICAg ICAgICAgICAgICAgICAgICAgICAgICAgICAgICAgIC AgICAgICAgICANCiAgICAgICAgICAgICAgICAgICAgICAgICAgICAgICAgICAgICAgICAgICAgICAgIC AgICAgICAgICAgICAgICAgICAgICAgICAgICAgICAgICAgICAgICAgICAgICAgICAgICANCiAgICAgIC AgICAgICAgICAgICAgICAgICAgICAgICAgICAgICAg ICAgICAgICAgICAgICAgICAgICAgICAgICAgICAgICAgICAgICAgICAgICAgICAgICAgICAgICAgICAg ICANCiAgICAgICAgICAgICAgICAgICAgICAgICAgICAgICAgICAgICAgICAgICAgICAgICAgICAgICAg ICAgICAgICAgICAgICAgICAgICAgICAgICAgICAgIC AgICAgICAgICAgICANCiAgICAgICAgICAgICAgICAgICAgICAgICAgICAgICAgICAgICAgICAgICAgIC AgICAgICAgICAgICAgICAgICAgICAgICAgICAgICAgICAgICAgICAgICAgICAgICAgICAgICANCjw/ FpJ9tozZKwetS2J7sgIu5FTn0AZH2ry5EeSZYbXDqj jfPeZpiQPlAzXJYxGtgGFiv4HXncJI1XlIVaM1AgQ9SnRVgiVB4SKVMsYOExwFKuTXFpTMFsOcG7GGEe NYnePI8ErHGhWHstZAIdVHMbEkGsERTaMB7SXBNeK684iaXmJl9DYo3KBfRnSC9vmi2AWsPaRNLnAsnX Wka8HIjyEK6MmMTeT0PxlIMeg8aOZsAvA0DCVKRoBJ LlYv0LYLNlCnHqKQSvSUwqRL2jRBFnOKZEhBroufF6KU0WME4teyKnBY2LYqDxFb1dBv5IElAxA2RkU2 VmPAFzMTEXSXtxZQ9GYLXcBSZ9IFMlOxArGIQQGaXjH41wVG5BB3Gcx73pYxV2SDEvBvOcVZbeYG20uC bjxlIafTImhQcpBX3QKr5+DQplbmRvYmoNCnhyZWYN BcKiMdFMMeFlZMKmUKFwBDVcLvO3LkHqVb1EDNDuHDXnCYLxKzYoKZHsQAMnEJgzFHNcMMD6PUP2DNSl JXRnLK6CQuJtKIVaCQs0ZGDoOTWpRASsny4OERNiWBGgKDJ7JHKvVZSzSYZuCWkxAGDaDNFgTEA8TCFj XEQjZY6WIpRuJQTbJOR5KeYbJYMwAEKdoi3FASMbTO WuOIotEtSyAURaWZLxGXzoEEVvQJE3NSW7PGCrWYLiWC2TNwIgYIAzWKI9FLWcGRBjPZAqfd2GMVSdLF JjAxY8EvSfIGCyBYDtNLozUNCkVMZ8OaVmEZSuGBCmSQ0VOzMiJWMzJZmbStEvEUIzYVVenf3BKZKrWB GiFqZsTJCiWTGkBVYxEOoaBNHoARD1EaLpPHOyXVVt GD9FElDbGDHsOXU1BdwfETHpMFUzgx9UCUIgADMpLfp6SGHhHWDfWAAePGrfDJOoRDQpWWv7RDAsAFAh TR2VRhQxWSQfVFKwOxzlEUIyIAIiys9NWOHeMEZfUbS0GRImKYWlFRYwTCwoYDFpCMV8LWE3YVPcNDAz HV2MMnJkMSNtEDD3PXWoKPDqMROnjw9TDHUfQKZcYA k9XEYaHSWjZRTuJVrrDUCiTFQ2PnW6GRSeYMXeRV4KYzGeVEIaSKM7TYXjIIAsIMLrro7ZIVPeZQPaWi N1AdKgEDGlWQDcSDtsXGCjSNP0GUTtUKHsMEWvIQ3ZNoEzAHIzAQJ8LqccUCEyGCJmvb1AQVQaWJVfNt x2NMYlGTIjUGPsJTqtJPMiVDK2XeN2XNRtXVDsNM0D XtZdLTYxNXp1IpRiUJGnBBXurt0HWEIaFAFxIxpjHaDoRWVbWROpZShmYZRhSFV1DvCcICIwUZNiLK2A YkCrPSXkDSz6SWQvOWNiNJHgih8UuCDidWlvza6OKDyVQg9TpMumQMO1CIvbOv9cyPXvExWiJOQWPx8U phDgQWFkEHFUZSatULVbFPP8ApIsROThEJG0HxRgRX L8BZWrUvMtTGY0FpGsJLYiEyS9NWFwDRUiH2OnEtxcYDFzLXhiKHP9InBvRGumYbZmWDD+VW6dXZt+Pg 2Jy4VznwH6rfEjWIgzDIo8Sv2NIHVKD4MRLo== ID Date Data Source [id number] 11/16/2020 08:37:28 AM EDT [facility] Name Value Range Interpretation Code Description Data Kathleen rce(s) Supporting Document(s) FREE THYROXINE @ 1.26 ng/dL (0.76-1.46) [facility] ID Date Data Source [id number] 10/18/2020 07:42:44 AM EDT [facility] Name Value Range Interpretation Code Description Data Kathleen rce(s) Supporting Document(s) &PDF [facility] AEROPt4zWpWYVxWd82/SAJjuCXNgz2JiIEglGSe0ETbyHMQuU7SqzZbwAXGHW00GEPdECvZYOKHEYLAD 0b3 WlZDYhTzEPtWO5KK0dUIAgqrOiblG1aC8jAK9PYCF+Kv1UIB8ju7AuVTo3NUBpk3SxIGedUFh1S9VnlH KjpkXwFpvrfGUUWNHmQPTuT3wmrbj8tYXpKQTrDu8OAqPvz9AmCTLfEPxRqh1vvG/cNhL+qfD5CtJUGN kdCrZKbvFBXUw9yIlVixjivg/hibwVfeXHzCgr52jQ n3W/2YjHXzOJyfdw7AzD6UIB9RksdVbApfZ9p7JZ//DYf7aCl54om+fmVP9R9ZA0+64UL3yFbeI+16QQ uEHyiht/g/4SgP9qjCbJSs/xgTffhqz12lSiXn3Rnb7t1/PPn3/OKx0xWoj6hDhenIrEYjfQfILgkcRO FfiXYsVcjgiKhsGzNj8rEudflWiqRdgkhJpvGwsxxh [file] C38dNR9CKtSlCm7VSqUte3XmEIJhPPpQbZBiHYJkVrUTKALj/5+HxBV++f//traffic monitor specialist+079rWBOuS3N3UUw+ [file] ICAgICAgICAgICAgICAgICAgICAgICAgICAgICAgICAgICAgICAgICAgICAgICAgICAgICAgICAgICAg INQhOBGwHLUkESDuTCGeWL8EBHFsEFNpBMDiSPSgQSZvGPPyKAMqNHRqHSQfFIRbSPYoWZPnOBYhHGQn ICAgICAgICAgICAgICAgICAgICAgICAgICAgICAgIC IaCDNeHRWlGKToCAJiQRTnVBKcRYOmQDNuNC4OAHSkTLZuWLFgLQAyDBTjCFWwVBCpRCKzZMIqHUHfGJ AgICAgICAgICAgICAgICAgICAgICAgICAgICAgICAgICAgICAgICAgICAgICAgICAgICAgICAgICAgIC PhSYAmOKVhOM1QOWHxBEWxZOBoVSNyVNEmQPWtGGFl ICAgICAgICAgICAgICAgICAgICAgICAgICAgICAgICAgICAgICAgICAgICAgICAgICAgICAgICAgICAg YGRjKTXhZEYvNCOiJERnZGTjDW3LKFSjJUPuDWXuFTYfFUXzTROvZXBcBBFoOKImXOUiSQCxSSIsMIKt ICAgICAgICAgICAgICAgICAgICAgICAgICAgICAgIC CyKUBwZYSbEILrUJUiQUUcBGEkTKAuUVLrOVOpMT0EHRDpUZHgRZLiDQWyZJCtPRYxEWUmNQXdXWOhVZ AgICAgICAgICAgICAgICAgICAgICAgICAgICAgICAgICAgICAgICAgICAgICAgICAgICAgICAgICAgIC RmCCZmMATcAVMbDM9GAUWlVFGtPBCvSIVlYUOxLMUy ICAgICAgICAgICAgICAgICAgICAgICAgICAgICAgICAgICAgICAgICAgICAgICAgICAgICAgICAgICAg FGTtSOHdVFFmDVQrLXWmRBDoUHAkAV6IVLHvCCNvULHyXZUcMURxFYOnRCWjPRCuYHBcBGAkPPWdJPUm ICAgICAgICAgICAgICAgICAgICAgICAgICAgICAgIC KpJKEiNWGvVIZaWDYqZPUfBSSaJIZmIQGeTPQsEYTtJH4OPAGnKECoFWZtOLYaRNZqTNMhURDzZTLrSG AgICAgICAgICAgICAgICAgICAgICAgICAgICAgICAgICAgICAgICAgICAgICAgICAgICAgICAgICAgIC PpDTVyTMLrVRHmMFEsXI2XUPIiVVJkAXHcCCHxMDSy ICAgICAgICAgICAgICAgICAgICAgICAgICAgICAgICAgICAgICAgICAgICAgICAgICAgICAgICAgICAg UPSmYWZwRAUqEEYoIJBoXVBzMRKmZCMxDN4MPC07gYBwn3O6YCKlJU8rijo/Io7DGPlmfgBhvWAjVO4P XuBvOT2qxo1WCuUpJW2zaq7FZHaQJzEcQ3Y7yWBmZR WsWSLHEhAhY82hKGjyMv48BFpoWCNoApWuICa1Df5XHzBoH7ydDKMpTfL9PDGrSjK7QUAdCyQ7NVEhAq DoCBmfGM7Dq0UxxKHwABk+Nh5QZL9kw0MeLEpuNWSwCX8jox5CCJzCDmHtN4E7uKIkR9A1KEuzEy7SHH RiIAPoUxdpYAWICBpoGZ7BSS8gtjP7PO0UaKIwMPHn PMZbcEIrJRc8R00ckEApLKqwEW7LZXR+Rusty+Ub1TWDDbYVHnEZLmGrBwLTOVUsFzW87ojQWzINFvDUO8 SNHhQm7KVRFgP9EyunCblMrnxxCwNVUxSBZKSI0MHKnrscSpqMMqpDpqEO19bThdHJ7QSy6LFhInPG4a cd6EeCDkBm6VTRBmBP8UERTtSKYbUDUzKYI5DWQvSv LoMOtgKOLrRYAzCHT9QCByPOAlSJ1UOsSvXGBhAWuzLdfjIIGqJMCvfc6MWTZxSSDyIJvtFILdFHFzJF WnKZivQVJcDSRxUWt9AWGjNWYaLX0IQtTjZHVgIYHqGTRzGUJwQWWoby4IKAOkPRUmDAAqKHUfVGAuMQ ByYRnfKURvMKM9AIQrRRAeYQDvYJ0IPyYgYKCbLZto WhDiQNUbBPAwgx7JSICeJNJySXvfPOFkYEWfZNFjUFcfNMXfVBO1EQC0DJIbBAHsLK9ARfJdXYGyCFQ6 BPozFSOgMSZivb1HXFVzTUFoPKO2JHFeCDKyCQJvASovFDJzJBClEdL7WNRrTKPmEB7HTeOaOYJsIKQv SvfrVKStOHEmwl9EJLHvSVZsYeLqKJLvMPBwAAYvQZ zqFWPsUHNqFkK7ZREqBTWtUY8NOpRvDUAbPSI4IaWjUQNuJVNtyr5SXROdQLQlVei9TuGlCTBcIYYpQK qoPJIoCAVtLHMiSBMnNOPkSY4TSmMsGIUeWXU5UHtrOBNzJJBcsd9HCKPxIHBeOXUhLIQmELVyUZFfLY nyNKWeRJF3ZzI7XLInABQxCM4LXkIhDMEqGMQ2AnVi YTQhUYLack0CFELsVPQaORzxBwVfMCPvXEBzZKonNSMjJLL9NiQbXNYdRUDeII5LVqBtMFWrHAB5Ocsd YSOlNLUegu6QTZVuLKGxZqh5VLPnXFOqWJGiJFunGBKgDXW7KGJ8BODjXTTeKJ7PKmSqPURoHNj6LcTg ABZtRNUcvf5JUYWjLUUfTHOwFTLnJVUjCGVaRSz4vu YslPVpXNp7WR1DX2ZedfWaGvRCGv1Us642YOWjHBUrMe9RQ9fvYi8nGYTfZNXZGw6WNGs0ANBsRlF4Pg JuYoJ7MCvzJyGmOlViRsk8E3ImJPT7Cjt+YZwtZ4PpQoZxPHM0CcXrGFTfLKI8RIDpLOg2VrE3GoP6Hj 3iRUFPTe8+FMfzpKTcyBbrKJVHHsA1GkSaIHslFQHCWq8K ID Date Data Source [id number] 10/08/2020 12:36:00 AM EDT [facility] Name Value Range Interpretation Code Description Data Kathleen rce(s) Supporting Document(s) SARS coronavirus 2 RNA [Presence] in Res piratory specimen by BOLA with probe detection NEGATIVE [facility] This lab was ordered by [facility] a nd reported by [facility]. ID Date Data Source [id number] 10/07/2020 08:50:00 AM EDT MEDENT ([facility] ) Name Value Range Interpretation Code Description Data Kathleen rce(s) Supporting Document(s) PDFReport Laboratory test result MEDENT ([facility], ) FVC-Pred 2.30 L MEDENT ([facility]) FVC-Pre 1.83 L MEDENT ([facility]) FVC-%Pred-Pre 79 L MEDENT ([facility], ) FVC-LLN 1.71 L MEDENT ([facility]) Fev1-Pred 1.72 L MEDENT ([facility], ) Fev1-Pre 1.29 L MEDENT ([facility], ) Fev1-%Pred-Pre 75 L MEDENT ([facility], ) Fev1-LLN 1.22 L MEDENT ([facility]) Fev6-Pred 2.18 L MEDENT ([facility], ) Fev6-%Pred-Pre 83 L MEDENT ([facility], ) Fev6-Pre 1.83 L MEDENT ([facility]) [id number]-Jxpi 75 % MEDENT ([facility]) Fev6-LLN 1.60 L MEDENT ([facility]) Inj1unq-%Pred-Pre 93 % MEDENT ([facility]) Duf3wen-Fjs 70 % MEDENT ([facility]) Jeo9lro-YOZ 65 % MEDENT ([facility]) Yzp0znk-Oplm 95 % MEDENT ([facility]) Gmq9tad-%Pred-Pre 105 % [facility] ([facility]) Ije2sxz-Pjj 100 % [facility] ([facility]) FEFMax-Pred 4.67 L/E/sec [facility] ([facility]) FEFMax-Pre 3.04 L/E/sec [facility] ([facility], ) FEFMax-%Pred-Pre 65 L/E/sec [facility] ([facility]) FEFMax-LLN 3.21 L/E/sec [facility] ([facility]) Mlj8739-Mpii 1.48 L/E/sec [facility] ([facility]) Clg0661-%Pred-Pre 62 L/E/sec [facility] ([facility]) Lkg3017-JBB 0.43 L/E/sec [facility] ([facility], ) Wfz4688-Lxl 0.93 L/E/sec [facility] ([facility], ) ExpTime-Pre 4.86 sec [facility] ([facility], ) Xhr3jux1-Ffdi 79 % [facility] ([facility], ) Uqu0csq2-%Pred-Pre 89 % [facility] ([facility], ) Vfy3dqc7-Ysr 70 % [facility] ([facility], ) Aef9nxy1-ZLW 70 % [facility] ([facility]) ID Date Data Source [id number] 09/22/2020 09:14:00 PM EDT [facility] Name Value Range Interpretation Code Description Data Kathleen rce(s) Supporting Document(s) SARS coronavirus 2 RNA [Presence] in Res piratory specimen by BOLA with probe detection NEGATIVE [facility] This lab was ordered by [facility] a nd reported by [facility]. ID Date Data Source [id number] 08/31/2020 11:46:00 AM EDT [facility] ([facility], ) Name Value Range Interpretation Code Description Data Kathleen rce(s) Supporting Document(s) Bacteria identified in Nose by Aerobe culture Laboratory test re sult Normal (applies to non-numeric results) [facility] ([facility], ) <content>FULL REPORT IN LAB NOTES (eCW [...] [facility]I standards.</content>
<content></content> ID Date Data Source [id number] 08/25/2020 12:58:00 PM ED[address] [facility] Name Value Range Interpretation Code Description Data Ktahleen rce(s) Supporting Document(s) Glucose [Mass/volume] in Capillary blood by Glucometer 145 mg/dL 83-110 Above high normal [facility] ([facility]) ID Date Data Source [id number] 08/25/2020 10:52:00 AM EDT [facility] Name Value Range Interpretation Code Description Data Kathleen rce(s) Supporting Document(s) Glucose [Mass/volume] in Capillary blood by Glucometer 192 mg/dL 83-110 Above high normal [facility] ([facility]) ID Date Data Source [id number] 08/20/2020 11:05:00 AM EDT [facility] Name Value Range Interpretation Code Description Data Kathleen rce(s) Supporting Document(s) SARS-CoV-2 (COVID-19) RNA [Presence] in Respiratory specimen by BOLA with probe detection Not Detected [facility] This lab was ordered by [facility] and reported by [employer]. ID Date Data Source [id number] 08/17/2020 11:32:09 PM EDT [facility] Name Value Range Interpretation Code Description Data Kathleen rce(s) Supporting Document(s) DIGOXIN 2.4 ng/mL (0.8-2.0) [facility] RESULT(S) CALLED TO AND READ BACK GARRISON FLETCHER AT [id number] [place] [id number] AT [phone] [id number]. ID Date Data Source [id number] 08/03/2020 02:30:00 PM EDT [facility] ([facility]) Name Value Range Interpretation Code Description Data Kathleen rce(s) Supporting Document(s) Hemoglobin A1c/Hemoglobin.total in Blood 8.[address] [facility] ([facility] ) Glucose [Mass/volume] in Serum or Plasma 113 [facility] ([facility]) ID Date Data Source [id number] SEDIMENTATION RATE 06/28/2020 12:00:00 AM EST eC W1 ([facility]) Name Value Range Interpretation Code Description Data Kathleen rce(s) Supporting Document(s) 12 0-30 ERYTHROCYTE SEDIMENTATION RATE eCW1 ([facility]) ID Date Data Source URIC ACID 06/28/2020 12:00:00 AM EST eCW1 ([facility]) Name Value Range Interpretation Code Description Data Kathelen rce(s) Supporting Document(s) 8.4 2.6-6.0 URIC ACID eCW1 ([facility] hospital) ID Date Data Source C REACTIVE PROTEIN QUANTITATIV (At [facility]) 06/28/2020 12:00 :00 AM EST eCW1 ([facility]) Name Value Range Interpretation Code Description Data Kathleen rce(s) Supporting Document(s) < 0.30 0.00-0.30 C REACTIVE PROTEIN QUANTI TATIV eCW1 ([facility]) ID Date Data Source Comprehensive Metabolic Profile (CMP) 06/28/2020 12:00:00 AM EST eCW1 ([facility]) Name Value Range Interpretation Code Description Data Kathleen rce(s) Supporting Document(s) 120 70-100 GLUCOSE, FASTING eCW1 ([facility]) 1.68 0.55-1.30 CREATININE FOR GFR eCW1 ([facility]) 35 7-18 BLOOD UREA NITROGEN eCW1 (Critical access hospital) 31.9 >39 GLOMERULAR FILTRATION RATE eCW 1 ([facility]) 138 136-145 SODIUM LEVEL eCW1 ([facility]) 107 98-107 CHLORIDE LEVEL eCW1 ([facility]) 5.7 3.5-5.1 POTASSIUM SERUM eCW1 ([facility]) 28 21-32 CARBON DIOXIDE LEVEL eCW1 ([facility]) 9.1 8.8-10.2 CALCIUM LEVEL eCW1 ([facility]) 48 12-78 ALT/SGPT eCW1 (Critical access hospital) 120 45-117 ALKALINE PHOSPHATASE eCW1 ([facility]) 21 7-37 AST/SGOT eCW1 (Critical access hospital) 3.6 3.2-5.2 ALBUMIN eCW1 (Critical access hospital) 5.9 6.4-8.2 TOTAL PROTEIN eCW1 ([facility]) 0.7 0.2-1.0 BILIRUBIN,TOTAL eCW1 ([facility]) 1.6 1.2-2.2 ALBUMIN/GLOBULIN RATIO eCW1 ([facility]) ID Date Data Source [id number] 06/15/2020 08:35:00 AM EST MEDENT ([facility] [...] 396 umol/L. Performed at: RN - [facility] [address] [id number] Ammonia Technician: Saira Barreto MD, Phone: [phone] ID Date Data Source [id number] 05/11/2020 03:24:00 PM EST MEDENT ([facility]) Name Value Range Interpretation Code Description Data Kathleen rce(s) Supporting Document(s) Hemoglobin A1c/Hemoglobin.total in Blood 7.7 MEDENT ([facility]) Glucose [Mass/volume] in Serum or Plasma 252 MEDENT ([facility]) ID Date Data Source [id number] 05/03/2020 01:33:00 PM EST [facility] Name Value Range Interpretation Code Description Data Kathleen rce(s) Supporting Document(s) SARS-CoV-2 (COVID 19) NEGATIVE - SARS-CoV-2 (COVID19) [facility] This lab was ordered by [facility] a nd reported by [facility]. ID Date Data Source TOTAL PROTEIN,RANDOM URINE 04/20/2020 12:00:00 AM EST eCW1 ( [facility]) Name Value Range Interpretation Code Description Data Kathleen rce(s) Supporting Document(s) 36.4 0.0-12.0 TOTAL PROTEIN,RANDOM URIN E eCW1 ([facility]) ID Date Data Source CREATININE,RANDOM URINE 04/20/2020 12:00:00 AM EST eCW1 ([facility]) Name Value Range Interpretation Code Description Data Kathleen rce(s) Supporting Document(s) 134.0 CREATININE,RANDOM URINE eCW1 ( [facility]) ID Date Data Source [id number] 02/10/2020 09:35:00 AM EDT MEDENT ([facility]) Name Value Range Interpretation Code Description Data Kathleen rce(s) Supporting Document(s) Hemoglobin A1c/Hemoglobin.total in Blood 7.7 MEDENT ([facility]) Glucose [Mass/volume] in Serum or Plasma 188 MEDENT ([facility]) Procedure Social History Code Duration Value Status Description Data Source(s ) Smoking 01/27/2021 12:00:00 AM EDT Never Smoker completed Never S moker eCW1 ([facility]) Smoking 01/27/2021 12:00:00 AM EDT Never Smoker completed Never S moker eCW1 ([facility]) Alcohol intake 01/19/2021 12:00:00 AM EDT Ex-drinker (finding) comp leted Ex- drinker (finding) [facility] Smoking 01/12/2021 09:53:30 AM EDT Never smoked tobacco (findi ng) completed Never smoked tobacco (finding) [facility]OD[facility] (Re[facility] Hebert [facility]) Smoking 01/03/2021 12:00:00 AM EDT Never Smoker completed Never S moker eCW1 ([facility]) Smoking 01/03/2021 12:00:00 AM EDT Never Smoker completed Never S moker eCW1 ([facility]) Smoking 01/03/2021 12:00:00 AM EDT Never Smoker completed Never S moker eCW1 ([facility]) Smoking 01/03/2021 12:00:00 AM EDT Never Smoker completed Never S moker eCW1 ([facility]) Smoking 12/27/2020 02:27:33 PM EDT Never smoked tobacco (findi ng) completed Never smoked tobacco (finding) [facility] (Reilly Hebert [facility]) Smoking 12/20/2020 12:00:00 AM EDT Never Smoker completed Never S moker eCW1 ([facility]) Smoking 12/19/2020 08:42:14 PM EDT Never smoked tobacco (findi ng) completed Never smoked tobacco (finding) [facility] (Reilly Hebert [facility]) Smoking 12/02/2020 07:09:08 AM EDT Never smoked tobacco (findi ng) completed Never smoked tobacco (finding) [facility] (Reilly Hebert [facility]) Smoking 11/09/2020 12:00:00 AM EDT Patient has never smoked co mpleted Patient has never smoked MEDENT ([facility]) Smoking 10/22/2020 12:00:00 AM EDT Never Smoker completed Never S moker eCW1 ([facility]) Smoking 10/22/2020 12:00:00 AM EDT Never Smoker completed Never S moker eCW1 ([facility]) Smoking 10/22/2020 12:00:00 AM EDT Never Smoker completed Never S moker eCW1 ([facility]) Smoking 10/22/2020 12:00:00 AM EDT Never Smoker completed Never S moker eCW1 ([facility]) Smoking 10/22/2020 12:00:00 AM EDT Never Smoker completed Never S moker eCW1 ([facility]) Alcohol intake 10/14/2020 12:00:00 AM EDT Ex-drinker (finding) comp leted Ex- drinker (finding) [facility] Alcohol intake 10/11/2020 12:00:00 AM EDT Ex-drinker (finding) comp leted Ex- drinker (finding) [facility] Smoking 10/07/2020 12:00:00 AM EDT Patient has never smoked co mpleted Patient has never smoked MEDENT ([facility], ) Smoking 10/04/2020 12:00:00 AM EDT Never Smoker completed Never S moker eCW1 ([facility]) Smoking 09/16/2020 09:25:11 AM EDT Never smoked tobacco (findi ng) completed Never smoked tobacco (finding) [facility] (Reilly Hebert [facility]) Smoking 08/19/2020 12:00:00 AM EDT Never Smoker completed Never S moker eCW1 ([facility]) Smoking 08/19/2020 12:00:00 AM EDT Never Smoker completed Never S moker eCW1 ([facility]) Smoking 08/19/2020 12:00:00 AM EDT Never Smoker completed Never S moker eCW1 ([facility]) Smoking 08/19/2020 12:00:00 AM EDT Never Smoker completed Never S moker eCW1 ([facility]) Alcohol intake 08/17/2020 12:00:00 AM EDT Ex-drinker (finding) comp leted Ex- drinker (finding) [facility] Smoking 07/16/2020 08:12:21 AM EDT Never smoked tobacco (findi ng) completed Never smoked tobacco (finding) [facility] (Reilly Hebert [facility]) Smoking 06/28/2020 12:00:00 AM EST Never Smoker completed Never S moker eCW1 ([facility]) Smoking 06/28/2020 12:00:00 AM EST Never Smoker completed Never S moker eCW1 ([facility]) Smoking 06/28/2020 12:00:00 AM EST Never Smoker completed Never S moker eCW1 ([facility]) Smoking 06/28/2020 12:00:00 AM EST Never Smoker completed Never S moker eCW1 ([facility]) Smoking 06/28/2020 12:00:00 AM EST Never Smoker completed Never S moker eCW1 ([facility]) Smoking 06/15/2020 08:15:52 AM EST Never smoked tobacco (findi ng) completed Never smoked tobacco (finding) [facility] (Reilly Hebert [facility]) Smoking 05/24/2020 12:00:00 AM EST Never Smoker completed Never S moker eCW1 ([facility]) Smoking 05/24/2020 12:00:00 AM EST Never Smoker completed Never S moker eCW1 ([facility]) Smoking 05/24/2020 12:00:00 AM EST Never Smoker completed Never S moker eCW1 ([facility]) Smoking 04/30/2020 12:00:00 AM EST Never Smoker completed Never S moker eCW1 ([facility]) Smoking 04/30/2020 12:00:00 AM EST Never Smoker completed Never S moker eCW1 ([facility]) Smoking 04/30/2020 12:00:00 AM EST Never Smoker completed Never S moker eCW1 ([facility]) Smoking 04/26/2020 12:00:00 AM EST Never Smoker completed Never S moker eCW1 ([facility]) Smoking 04/20/2020 12:38:13 PM EST Never smoked tobacco (findi ng) completed Never smoked tobacco (finding) [facility] ([facility]) Smoking 04/19/2020 12:00:00 AM EST Never Smoker completed Never S moker eCW1 ([facility]) Smoking 04/19/2020 12:00:00 AM EST Never Smoker completed Never S moker eCW1 ([facility]) Smoking 04/08/2020 09:02:29 AM EST Never smoked tobacco (findi ng) completed Never smoked tobacco (finding) [facility] ([facility]) Smoking 04/02/2020 08:12:47 AM EST Never smoked tobacco (findi ng) completed Never smoked tobacco (finding) [facility] ([facility]) Smoking 03/23/2020 08:41:07 AM EST Never smoked tobacco (findi ng) completed Never smoked tobacco (finding) [facility] ([facility]) Smoking 03/12/2020 08:59:34 AM EST Never smoked tobacco (findi ng) completed Never smoked tobacco (finding) [facility] ([facility]) Smoking 02/11/2020 10:00:10 AM EDT Never smoked tobacco (findi ng) completed Never smoked tobacco (finding) [facility] ([facility]) Smoking 01/22/2020 12:00:00 AM EDT Never Smoker completed Never S moker eCW1 ([facility]) Smoking 01/22/2020 12:00:00 AM EDT Never Smoker completed Never S moker eCW1 ([facility]) Smoking 01/22/2020 12:00:00 AM EDT Never Smoker completed Never S moker eCW1 ([facility]) Smoking 01/22/2020 12:00:00 AM EDT Never Smoker completed Never S moker eCW1 ([facility]) Smoking 01/22/2020 12:00:00 AM EDT Never Smoker completed Never S moker eCW1 ([facility]) Smoking 01/22/2020 12:00:00 AM EDT Never Smoker completed Never S moker eCW1 ([facility]) Smoking 01/02/2020 09:15:01 AM EDT Never smoked tobacco (findi ng) completed Never smoked tobacco (finding) [facility] ([facility]) Vital Signs ID Date Data Source UNK Name Value Range Interpretation Code Description Data Source(s) Body weight 176.8 [lb_av] 176.8 [lb_av] eCW1 ([facility]) Body weight 80.2 kg 80.2 kg eCW1 ([facility]) Body height 60.5 [in_i] 60.5 [in_i] eCW1 ([facility]) Body mass index (BMI) [Ratio] 33.96 kg/m2 33.96 kg/m2 eCW1 ([facility]) Heart rate 85 /min 85 /min eCW1 ([facility]) Respiratory rate 18 /min 18 /min eCW1 ([facility]) Body temperature 97.3 [degF] 97.3 [degF] eCW1 ( [facility]) Systolic blood pressure 134 mm[Hg] 134 mm[Hg] e CW1 ([facility]) Diastolic blood pressure 64 mm[Hg] 64 mm[Hg] eCW1 ([facility]) Systolic blood pressure 167 mm[Hg] 167 mm[Hg] [facility] Heart rate 86 /min 86 /min [facility] Body height 154.9 cm 154.9 cm [facility] Body weight 78.472 kg 78.472 kg [facility] Body mass index (BMI) [Ratio] 32.69 kg/m2 32.69 kg/m2 [facility] Diastolic blood pressure 90 mm[Hg] 90 mm[Hg] [facility] Diastolic blood pressure 92 mm[Hg] 92 mm[Hg] MEDENT ([facility]) Systolic blood pressure 126 mm[Hg] 126 mm[Hg] M EDENT ([facility]) Body weight 176.00 [lb_av] 176.00 [lb_av] MEDEN T ([facility]) Heart rate 77 /min 77 /min MEDENT ([facility] Body weight 177 [lb_av] 177 [lb_av] eCW1 ([facility]) Body height 60.5 [in_i] 60.5 [in_i] eCW1 ([facility]) Body mass index (BMI) [Ratio] 34.00 kg/m2 34.00 kg/m2 eCW1 ([facility]) Heart rate 78 /min 78 /min eCW1 ([facility]) Respiratory rate 20 /min 20 /min eCW1 ([facility]) Body temperature 97 [degF] 97 [degF] eCW1 ([facility]) Systolic blood pressure 120 mm[Hg] 120 mm[Hg] e CW1 ([facility]) Diastolic blood pressure 70 mm[Hg] 70 mm[Hg] eCW1 ([facility]) Body weight 177 [lb_av] 177 [lb_av] eCW1 ([facility]) Body height 60.5 [in_i] 60.5 [in_i] eCW1 ([facility]) Body mass index (BMI) [Ratio] 34.00 kg/m2 34.00 kg/m2 eCW1 ([facility]) Heart rate 103 /min 103 /min eCW1 ([facility]) Respiratory rate 18 /min 18 /min eCW1 ([facility]) Body temperature 97.1 [degF] 97.1 [degF] eCW1 ( [facility]) Systolic blood pressure 120 mm[Hg] 120 mm[Hg] e CW1 ([facility]) Diastolic blood pressure 76 mm[Hg] 76 mm[Hg] eCW1 ([facility]) Body height 59 [in_i] 59 [in_i] [facility] ([facility], ) 4'11" Body weight 178.00 [lb_av] 178.00 [lb_av] MEDEN T ([facility]) Body mass index (BMI) [Ratio] 35.9 kg/m2 35.9 k g/m2 [facility] ([facility]) Anderson body weight 100 [lb_av] 100 [lb_av] MEDEN T ([facility]) Body weight 80.741 kg 80.741 kg [facility] ([facility]) Body surface area Derived from formula 1.76 m2 1.76 m2 [facility] ([facility]) Systolic blood pressure 136 mm[Hg] 136 mm[Hg] [facility] Diastolic blood pressure 72 mm[Hg] 72 mm[Hg] [facility] Heart rate 84 /min 84 /min [facility] Body height 154.9 cm 154.9 cm [facility] Body weight 81.194 kg 81.194 kg [facility] Body mass index (BMI) [Ratio] 33.82 kg/m2 33.82 kg/m2 [facility] Oxygen saturation in Arterial blood by Pulse oximetry 97 % 97 % [facility] Body weight 177.38 [lb_av] 177.38 [lb_av] MEDEN T ([facility]) Systolic blood pressure 120 mm[Hg] 120 mm[Hg] M EDENT ([facility]) Diastolic blood pressure 65 mm[Hg] 65 mm[facility]Hg[facility] Heart rate 74 /min 74 /min [facility] ([facility]) Body height 60 [in_i] 60 [in_i] [facility] ([facility]) 5'0" Body mass index (BMI) [Ratio] 34.6 kg/m2 34.6 k g/m2 [facility] ([facility]) Oxygen saturation in Arterial blood by Pulse oximetry 96 % 96 % [facility] ([facility]) Body height 59 [in_i] 59 [in_i] [facility] ([facility]) 4'11" Body weight 179.00 [lb_av] 179.00 [lb_av] [facility] Body weight 81.194 kg 81.194 kg [facility] ([facility]) Body surface area Derived from formula 1.76 m2 1.76 m2 [facility] ([facility]) [place] body weight 100 [lb_av] 100 [lb_av] [facility] Body mass index (BMI) [Ratio] 36.1 kg/m2 36.1 k g/m2 [facility] ([facility]) Body weight 178.6 [lb_av] 178.6 [lb_av] eCW1 ([facility]) Body weight 81.0 kg 81.0 kg W1 ([facility]) Body height 60.5 [in_i] 60.5 [in_i] eCW1 ([facility]) Body mass index (BMI) [Ratio] 34.30 kg/m2 34.30 kg/m2 W1 ([facility]) Heart rate 86 /min 86 /min eCW1 ([facility]) Respiratory rate 18 /min 18 /min W1 ([facility]) Body temperature 97.3 [degF] 97.3 [degF] eCW1 ( [facility]) Systolic blood pressure 150 mm[Hg] 150 mm[Hg] e CW1 ([facility]) Diastolic blood pressure 78 mm[Hg] 78 mm[Hg] eCW1 ([facility]) Oxygen saturation in Arterial blood by Pulse oximetry 98 % 98 % [facility] Systolic blood pressure 116 mm[Hg] 116 mm[Hg] [facility] Body height 154.9 cm 154.9 cm [facility] Body weight 80.287 kg 80.287 kg [facility] Body mass index (BMI) [Ratio] 33.44 kg/m2 33.44 kg/m2 [facility] Diastolic blood pressure 64 mm[Hg] 64 mm[Hg] [facility] Heart rate 67 /min 67 /min [facility] Systolic blood pressure 120 mm[Hg] 120 mm[Hg] [facility] Diastolic blood pressure 64 mm[Hg] 64 mm[Hg] [facility] Heart rate 83 /min 83 /min [facility] Respiratory rate 12 /min 12 /min [facility] Body height 154.9 cm 154.9 cm [facility] Body weight 81.647 kg 81.647 kg [facility] Body mass index (BMI) [Ratio] 34.01 kg/m2 34.01 kg/m2 [facility] Oxygen saturation in Arterial blood by Pulse oximetry 93 % 93 % [facility] Body mass index (BMI) [Ratio] 36.1 kg/m2 36.1 k g/m[facility] [place] body weight 100 [lb_av] 100 [lb_av] [facility] Oxygen saturation in Arterial blood by Pulse oximetry 98 % 98 % [facility] ([facility], ) Body height 59 [in_i] 59 [in_i] [facility] ([facility]) 4'11" Body weight 179.00 [lb_av] 179.00 [lb_av] MEDEN T ([facility], ) Body weight 81.194 kg 81.194 kg [facility] ([facility]) Body surface area Derived from formula 1.76 m2 1.76 m2 [facility] ([facility], ) Systolic blood pressure 128 mm[Hg] 128 mm[Hg] [facility] Diastolic blood pressure 74 mm[Hg] 74 mm[Hg] [facility] ([facility], ) Heart rate 85 /min 85 /min [facility] ([facility]) Oxygen saturation in Arterial blood by Pulse oximetry 98 % 98 % [facility] ([facility]) Body height 59 [in_i] 59 [in_i] [facility] ([facility]) 4'11" Body weight 179.00 [lb_av] 179.00 [lb_av] MEDEN T ([facility]) Body mass index (BMI) [Ratio] 36.1 kg/m2 36.1 k g/m2 [facility] ([facility]) [place] body weight 100 [lb_av] 100 [lb_av] MEDEN T ([facility]) Body weight 81.194 kg 81.194 kg [facility] ([facility]) Body surface area Derived from formula 1.76 m2 1.76 m2 [facility] ([facility]) Body weight 175.00 [lb_av] 175.00 [lb_av] MEDEN T ([facility]) Body height 59 [in_i] 59 [in_i] [facility] ([facility]) 4'11" Body mass index (BMI) [Ratio] 35.3 kg/m2 35.3 k g/m2 [facility] ([facility]) [place] body weight 100 [lb_av] 100 [lb_av] MEDEN T ([facility]) Body weight 79.380 kg 79.380 kg [facility] ([facility]) Body surface area Derived from formula 1.74 m2 1.74 m2 [facility] ([facility]) Body weight 178 [lb_av] 178 [lb_av] eCW1 ([facility]) Body height 60.5 [in_i] 60.5 [in_i] eCW1 ([facility]) Body mass index (BMI) [Ratio] 34.19 kg/m2 34.19 kg/m2 eCW1 ([facility]) Heart rate 91 /min 91 /min eCW1 ([facility]) Respiratory rate 18 /min 18 /min eCW1 ([facility]) Body temperature 96.9 [degF] 96.9 [degF] eCW1 ( [facility]) Systolic blood pressure 120 mm[Hg] 120 mm[Hg] e CW1 ([facility]) Diastolic blood pressure 62 mm[Hg] 62 mm[Hg] eCW1 ([facility]) Systolic blood pressure 136 mm[Hg] 136 mm[Hg] [facility] Diastolic blood pressure 70 mm[Hg] 70 mm[Hg] [facility] Heart rate 70 /min 70 /min [facility] Body height 154.9 cm 154.9 cm [facility] Body weight 80.74 kg 80.74 kg [facility] Body mass index (BMI) [Ratio] 33.63 kg/m2 33.63 kg/m2 [facility] Oxygen saturation in Arterial blood by Pulse oximetry 98 % 98 % [facility] Body height 59 [in_i] 59 [in_i] [facility] 4'11" Body weight 181.00 [lb_av] 181.00 [lb_av] MEDEN T ([facility]) Anderson body weight 100 [lb_av] 100 [lb_av] MEDEN T ([facility]) Body mass index (BMI) [Ratio] 36.6 kg/m2 36.6 k g/m2 [facility] ([facility]) Body weight 82.102 kg 82.102 kg [facility] ([facility]) Body surface area Derived from formula 1.77 m2 1.77 m2 [facility] ([facility]) Body height 59 [in_i] 59 [in_i] MEDENT ([facility]) 4'11" Body weight 181.00 [lb_av] 181.00 [lb_av] MEDEN T ([facility]) Body mass index (BMI) [Ratio] 36.6 kg/m2 36.6 k g/m2 [facility] ([facility]) Anderson body weight 100 [lb_av] 100 [lb_av] MEDEN T ([facility]) Body weight 82.102 kg 82.102 kg [facility] ([facility] ) Body surface area Derived from formula 1.77 m2 1.[address] [facility] ([facility], ) Body weight 177.8 [lb_av] 177.8 [lb_av] eCW1 ([facility]) Body height 60.5 [in_i] 60.5 [in_i] eCW1 ([facility]) Body mass index (BMI) [Ratio] 34.15 kg/m2 34.15 kg/m2 eCW1 ([facility]) Heart rate 88 /min 88 /min eCW1 ([facility]) Respiratory rate 18 /min 18 /min eCW1 ([facility]) Body temperature 97.4 [degF] 97.4 [degF] eCW1 ( [facility]) Systolic blood pressure 122 mm[Hg] 122 mm[Hg] e CW1 ([facility]) Diastolic blood pressure 68 mm[Hg] 68 mm[Hg] eCW1 ([facility]) Body height 59 [in_i] 59 [in_i] [facility] ([facility], ) 4'11" Body weight 181.00 [lb_av] 181.00 [lb_av] MEDEN T ([facility], ) Body weight 82.102 kg 82.102 kg [facility] ([facility]) Body surface area Derived from formula 1.77 m2 1.77 m2 [facility] ([facility]) Body mass index (BMI) [Ratio] 36.6 kg/m2 36.6 k g/m2 [facility] ([facility]) [place] body weight 100 [lb_av] 100 [lb_av] MEDEN T ([facility], ) Systolic blood pressure 148 mm[Hg] 148 mm[Hg] [facility] Body weight 81.194 kg 81.194 kg [facility] Heart rate 74 /min 74 /min [facility] Diastolic blood pressure 90 mm[Hg] 90 mm[Hg] [facility] Body height 154.9 cm 154.9 cm [facility] Body mass index (BMI) [Ratio] 33.82 kg/m2 33.82 kg/m2 [facility] Oxygen saturation in Arterial blood by Pulse oximetry 96 % 96 % [facility] Oxygen saturation in Arterial blood by Pulse oximetry 98 % 98 % MEDENT ([facility]) Diastolic blood pressure 76 mm[Hg] 76 mm[Hg] MEDENT ([facility]) Heart rate [...] [Ratio] 36.6 kg/m2 36.6 k g/m2 MEDENT ([facility], ) [place] body weight 100 [lb_av] 100 [lb_av] MEDEN T ([facility], ) Body weight 82.102 kg 82.[address] [facility], ) Body surface area Derived from formula 1.77 m2 1.77 m2 [facility] ([facility], ) Body height 59 [in_i] 59 [in_i] MEDENT ([facility], ) 4'11" Body weight 181.00 [lb_av] 181.00 [lb_av] MEDEN T ([facility], ) Systolic blood pressure 163 mm[Hg] 163 mm[Hg] M EDENT ([facility], ) Diastolic blood pressure 63 mm[Hg] 63 mm[Hg] MEDENT ([facility], ) Body height 59 [in_i] 59 [in_i] MEDENT ([facility], ) 4'11" Body weight 181.00 [lb_av] 181.00 [lb_av] MEDEN T ([facility]) Body mass index (BMI) [Ratio] 36.6 kg/m2 36.6 k g/m2 [facility] ([facility]) [place] body weight 100 [lb_av] 100 [lb_av] MEDEN T ([facility]) Body weight 82.102 kg 82.102 kg [facility] ([facility]) Body surface area Derived from formula 1.77 m2 1.77 m2 [facility] ([facility]) Body weight 178.4 [lb_av] 178.4 [lb_av] eCW1 ([facility]) Body weight 80.9 kg 80.9 kg W1 ([facility]) Body height 60.5 [in_i] 60.5 [in_i] eCW1 ([facility]) Body mass index (BMI) [Ratio] 34.26 kg/m2 34.26 kg/m2 eCW1 ([facility]) Heart rate 72 /min 72 /min eCW1 ([facility]) Respiratory rate 18 /min 18 /min eCW1 ([facility]) Body temperature 97.6 [degF] 97.6 [degF] eCW1 ( [facility]) Systolic blood pressure 128 mm[Hg] 128 mm[Hg] e CW1 ([facility]) Diastolic blood pressure 70 mm[Hg] 70 mm[Hg] eCW1 ([facility]) Diastolic blood pressure 70 mm[Hg] 70 mm[Hg] eCW1 ([facility]) Body weight 177 [lb_av] 177 [lb_av] eCW1 ([facility]) Body height 60.5 [in_i] 60.5 [in_i] eCW1 ([facility]) Body mass index (BMI) [Ratio] 34.00 kg/m2 34.00 kg/m2 eCW1 ([facility]) Heart rate 72 /min 72 /min eCW1 ([facility]) Respiratory rate 18 /min 18 /min eCW1 ([facility]) Body temperature 96.6 [degF] 96.6 [degF] eCW1 ( [facility]) Systolic blood pressure 130 mm[Hg] 130 mm[Hg] e CW1 ([facility]) Systolic blood pressure 130 mm[Hg] 130 mm[Hg] M EDENT ([facility]) Diastolic blood pressure 82 mm[Hg] 82 mm[Hg] MEDENT ([facility]) Heart rate 85 /min 85 /min MEDENT ([facility]) Body temperature 97.0 [degF] 97.0 [degF] MEDENT ([facility]) Body height 60 [in_i] 60 [in_i] MEDENT ([facility]) 5'0" Body weight 178.00 [lb_av] 178.00 [lb_av] MEDEN T ([facility]) Body mass index (BMI) [Ratio] 34.8 kg/m2 34.8 k g/m2 MEDENT ([facility]) Oxygen saturation in Arterial blood by Pulse oximetry 98 % 98 % MEDENT ([facility]) Body weight 179.6 [lb_av] 179.6 [lb_av] eCW1 ([facility]) Body weight 81.4 kg 81.4 kg W1 ([facility]) Body height 60.5 [in_i] 60.5 [in_i] eCW1 ([facility]) Body mass index (BMI) [Ratio] 34.49 kg/m2 34.49 kg/m2 eCW1 ([facility]) Heart rate 67 /min 67 /min eCW1 ([facility]) Respiratory rate 18 /min 18 /min eCW1 ([facility]) Body temperature 97.0 [degF] 97.0 [degF] eCW1 ( [facility]) Systolic blood pressure 138 mm[Hg] 138 mm[Hg] e CW1 ([facility]) Diastolic blood pressure 72 mm[Hg] 72 mm[Hg] eCW1 ([facility]) Body weight 179 [lb_av] 179 [lb_av] eCW1 ([facility]) Body height 60.5 [in_i] 60.5 [in_i] eCW1 ([facility]) Body mass index (BMI) [Ratio] 34.38 kg/m2 34.38 kg/m2 eCW1 ([facility]) Heart rate 73 /min 73 /min eCW1 ([facility]) Respiratory rate 20 /min 20 /min eCW1 ([facility]) Body temperature 96.1 [degF] 96.1 [degF] eCW1 ( [facility]) Systolic blood pressure 130 mm[Hg] 130 mm[Hg] e CW1 ([facility]) Diastolic blood pressure 70 mm[Hg] 70 mm[Hg] eCW1 ([facility]) Body weight 180.0 [lb_av] 180.0 [lb_av] eCW1 ([facility]) Body weight 81.6 kg 81.6 kg eCW1 ([facility]) Body height 60.5 [in_i] 60.5 [in_i] eCW1 ([facility]) Body mass index (BMI) [Ratio] 34.57 kg/m2 34.57 kg/m2 eCW1 ([facility]) Heart rate 75 /min 75 /min eCW1 ([facility]) Respiratory rate 18 /min 18 /min eCW1 ([facility]) Body temperature 97.0 [degF] 97.0 [degF] eCW1 ( [facility]) Systolic blood pressure 132 mm[Hg] 132 mm[Hg] e CW1 ([facility]) Diastolic blood pressure 62 mm[Hg] 62 mm[Hg] eCW1 ([facility]) Diastolic blood pressure 80 mm[Hg] 80 mm[Hg] MEDENT ([facility]) Body temperature 96.2 [degF] 96.2 [degF] MEDENT ([facility] ) Oxygen saturation in Arterial blood by Pulse oximetry 99 % 99 % MEDENT ([facility] ) Systolic blood pressure 132 mm[Hg] 132 mm[Hg] M EDENT ([facility]) Heart rate 56 /min 56 /min MEDENT ([facility]) Body height 60 [in_i] 60 [in_i] MEDENT ([facility]) 5'0" Body weight 172.25 [lb_av] 172.25 [lb_av] MEDEN T ([facility]) Body mass index (BMI) [Ratio] 33.6 kg/m2 33.6 k g/m2 MEDENT ([facility]) Body weight 172 [lb_av] 172 [lb_av] eCW1 ([facility]) Body height 60.5 [in_i] 60.5 [in_i] eCW1 ([facility]) Body mass index (BMI) [Ratio] 33.03 kg/m2 33.03 kg/m2 eCW1 ([facility]) Heart rate 130 /min 130 /min eCW1 ([facility]) Respiratory rate 20 /min 20 /min eCW1 ([facility]) Body temperature 96.9 [degF] 96.9 [degF] eCW1 ( [facility]) Systolic blood pressure 120 mm[Hg] 120 mm[Hg] e CW1 ([facility]) Diastolic blood pressure 62 mm[Hg] 62 mm[Hg] eCW1 ([facility]) Patient Treatment Plan of Care Planned Activity Planned Date Details Description Data Source (s) 24 HR Diltiazem Hydrochloride 120 MG Extended Release Oral Capsule 01/06/2021 12:00:00 AM EDT [facility] Digoxin 0.125 MG Oral Tablet 01/06/2021 12:00:00 AM EDT [facility] Spironolactone 25 MG Oral Tablet 01/06/2021 12:00:00 AM EDT [facility] Levothyroxine Sodium 0.137 MG Oral Tablet 12/19/2020 12:00:00 AM ED T [facility] cefpodoxime 200 MG Oral Tablet 12/15/2020 12:00:00 AM EDT [facility] doxycycline hyclate 100 MG Oral Tablet 12/15/2020 12:00:00 AM EDT [facility] cefpodoxime 200 MG Oral Tablet 12/15/2020 12:00:00 AM EDT eCW1 ([facility]) doxycycline hyclate 100 MG Oral Tablet 12/15/2020 12:00:00 AM EDT eCW1 ([facility]) cefpodoxime 200 MG Oral Tablet 12/15/2020 12:00:00 AM EDT eCW1 ([facility]) doxycycline hyclate 100 MG Oral Tablet 12/15/2020 12:00:00 AM EDT eCW1 ([facility]) Levothyroxine Sodium 0.137 MG Oral Tablet 11/25/2020 12:00:00 AM ED T eCW1 ([facility]) Levothyroxine Sodium 0.112 MG Oral Tablet 11/25/2020 12:00:00 AM ED T [facility] Levothyroxine Sodium 0.137 MG Oral Tablet 11/25/2020 12:00:00 AM ED T eCW1 ([facility]) Levothyroxine Sodium 0.137 MG Oral Tablet 11/25/2020 12:00:00 AM ED T eCW1 ([facility]) Levothyroxine Sodium 0.137 MG Oral Tablet 11/25/2020 12:00:00 AM ED T eCW1 ([facility]) aminophylline injection 75 mg 11/24/2020 10:00:00 AM EDT [facility] 24 HR Diltiazem Hydrochloride 120 MG Extended Release Oral Capsule 11/11/2020 12:00:00 AM EDT [facility] Chlorthalidone 25 MG Oral Tablet 10/14/2020 12:00:00 AM EDT [facility] Bisoprolol Fumarate 10 MG Oral Tablet 10/14/2020 12:00:00 AM EDT [facility] Digoxin 0.125 MG Oral Tablet 10/11/2020 12:00:00 AM EDT [facility] Metoprolol Tartrate 100 MG Oral Tablet 10/07/2020 12:00:00 AM EDT [facility] Amoxicillin 500 MG / Clavulanate 125 MG Oral Tablet 10/06/19 12:00:00 AM EDT [facility] apixaban 5 MG Oral Tablet 09/21/2020 12:00:00 AM EDT [facility] Cyclosporine 0.5 MG/ML Ophthalmic Suspension [Restasis ] 09/15/2020 12:00:00 AM EDT RODDY (Reilly Hebert [facility]) atorvastatin 80 MG Oral Tablet 08/24/2020 12:00:00 AM EDT [facility] Levothyroxine Sodium 0.15 MG Oral Tablet 08/04/2020 12:00:00 AM EDT [facility] Levothyroxine Sodium 0.15 MG Oral Tablet 08/04/2020 12:00:00 AM EDT eCW1 ([facility]) Methotrexate 2.5 MG Oral Tablet 08/03/2020 12:00:00 AM EDT [facility] Folic Acid 1 MG Oral Tablet 08/03/2020 12:00:00 AM EDT [facility] OneTouch Ultra test strip 07/27/2020 12:00:00 AM EDT [facility] Losartan Potassium 25 MG Oral Tablet 06/16/2020 12:00:00 AM EST [facility] Digoxin 0.125 MG Oral Tablet 06/09/2020 12:00:00 AM EST [facility] BD Insulin Syringe U/F 31G X 5/16" 1 ML MISC 05/12/2020 12:00:00 AM EST [facility] Methotrexate 2.5 MG Oral Tablet 04/30/2020 12:00:00 AM EST eCW1 ([facility]) Folic Acid 1 MG Oral Tablet 04/30/2020 12:00:00 AM EST eCW1 ([facility]) Methotrexate 2.5 MG Oral Tablet 04/30/2020 12:00:00 AM EST eCW1 ([facility]) Folic Acid 1 MG Oral Tablet 04/30/2020 12:00:00 AM EST eCW1 ([facility]) Methotrexate 2.5 MG Oral Tablet 04/30/2020 12:00:00 AM EST eCW1 ([facility]) Methotrexate 2.5 MG Oral Tablet 04/30/2020 12:00:00 AM EST eCW1 ([facility]) Folic Acid 1 MG Oral Tablet 04/30/2020 12:00:00 AM EST eCW1 ([facility]) Folic Acid 1 MG Oral Tablet 04/30/2020 12:00:00 AM EST eCW1 ([facility]) Methotrexate 2.5 MG Oral Tablet 04/30/2020 12:00:00 AM EST eCW1 ([facility]) Folic Acid 1 MG Oral Tablet 04/30/2020 12:00:00 AM EST eCW1 ([facility]) Methotrexate 2.5 MG Oral Tablet 04/30/2020 12:00:00 AM EST eCW1 ([facility]) Folic Acid 1 MG Oral Tablet 04/30/2020 12:00:00 AM EST eCW1 ([facility]) Folic Acid 1 MG Oral Tablet 04/30/2020 12:00:00 AM EST eCW1 ([facility]) Folic Acid 1 MG Oral Tablet 04/30/2020 12:00:00 AM EST eCW1 ([facility]) Methotrexate 2.5 MG Oral Tablet 04/30/2020 12:00:00 AM EST eCW1 ([facility]) Folic Acid 1 MG Oral Tablet 04/30/2020 12:00:00 AM EST eCW1 ([facility]) Methotrexate 2.5 MG Oral Tablet 04/30/2020 12:00:00 AM EST eCW1 ([facility]) Folic Acid 1 MG Oral Tablet 04/30/2020 12:00:00 AM EST eCW1 ([facility]) Methotrexate 2.5 MG Oral Tablet 04/30/2020 12:00:00 AM EST eCW1 ([facility]) Folic Acid 1 MG Oral Tablet 04/30/2020 12:00:00 AM EST eCW1 ([facility]) Methotrexate 2.5 MG Oral Tablet 04/30/2020 12:00:00 AM EST eCW1 ([facility]) Folic Acid 1 MG Oral Tablet 04/30/2020 12:00:00 AM EST eCW1 ([facility]) Methotrexate 2.5 MG Oral Tablet 04/30/2020 12:00:00 AM EST eCW1 ([facility]) Folic Acid 1 MG Oral Tablet 04/30/2020 12:00:00 AM EST eCW1 ([facility]) Methotrexate 2.5 MG Oral Tablet 04/30/2020 12:00:00 AM EST eCW1 ([facility]) Folic Acid 1 MG Oral Tablet 04/30/2020 12:00:00 AM EST eCW1 ([facility]) Methotrexate 2.5 MG Oral Tablet 04/30/2020 12:00:00 AM EST eCW1 ([facility]) Methotrexate 2.5 MG Oral Tablet 04/30/2020 12:00:00 AM EST eCW1 ([facility]) Eysuvis 0.25% Ophthalmic Suspension 04/28/2020 12:00:00 AM EST RODDY (Reilly Hebert [facility]) Losartan Potassium 25 MG Oral Tablet 04/26/2020 12:00:00 AM EST eCW1 ([facility]) Losartan Potassium 25 MG Oral Tablet 04/26/2020 12:00:00 AM EST eCW1 ([facility]) Levothyroxine Sodium 0.125 MG Oral Tablet 04/26/2020 12:00:00 AM ES T eCW1 ([facility]) Losartan Potassium 25 MG Oral Tablet 04/26/2020 12:00:00 AM EST eCW1 ([facility]) Levothyroxine Sodium 0.125 MG Oral Tablet 04/26/2020 12:00:00 AM ES T eCW1 ([facility]) Levothyroxine Sodium 0.125 MG Oral Tablet 04/26/2020 12:00:00 AM ES T eCW1 ([facility]) Losartan Potassium 25 MG Oral Tablet 04/26/2020 12:00:00 AM EST eCW1 ([facility]) besifloxacin 6 MG/ML Ophthalmic Suspension [Besivance] 04/20/2020 12:00:00 AM EST RODDY (Reilly [facility]) doxycycline hyclate 20 MG Oral Tablet 04/02/2020 12:00:00 AM EST [facility]DY (Reilly Hebert [facility]) moxifloxacin 5 MG/ML Ophthalmic Solution 03/29/2020 12:00:00 AM EST [facility]DY (Re[facility]) Erythromycin 0.005 MG/MG Ophthalmic Ointment 03/16/2020 12:00:00 AM EST RODDY (Re[facility]) Polymyxin B 10796 UNT/ML / Trimethoprim 1 MG/ML Ophtha lmic Solution [Polytrim] 03/12/2020 12:00:00 AM EST RODDY (Murali Hebert [facility]) moxifloxacin 5 MG/ML Ophthalmic Solution 03/12/2020 12:00:00 AM EST [facility]ODDY ([facility]) Levothyroxine Sodium 0.112 MG Oral Tablet 03/08/2020 12:00:00 AM ES T eCW1 ([facility]) Levothyroxine Sodium 0.112 MG Oral Tablet 03/08/2020 12:00:00 AM ES T eCW1 ([facility]) Levothyroxine Sodium 0.112 MG Oral Tablet 03/08/2020 12:00:00 AM ES T eCW1 ([facility]) Metoprolol Tartrate 100 MG Oral Tablet 03/04/2020 12:00:00 AM EST [facility] apixaban 5 MG Oral Tablet 03/04/2020 12:00:00 AM EST [facility] Dexamethasone 1 MG/ML / Tobramycin 3 MG/ML Ophthalmic Suspension [Tobradex] 02/11/2020 12:00:00 AM EDT RODDY (Murali Hebert [facility]) Spironolactone 25 MG Oral Tablet 01/12/2020 12:00:00 AM EDT [facility] Furosemide 20 MG Oral Tablet 12/30/2019 12:00:00 AM EDT [facility] Dexamethasone 1 MG/ML / Tobramycin 3 MG/ML Ophthalmic Suspension [Tobradex] 10/01/2019 12:00:00 AM EDT RODDY (Murali Hebert [facility]) Erythromycin 0.005 MG/MG Ophthalmic Ointment 10/01/2019 12:00:00 AM EDT RODDY (Reilly Hebert MD [facility]) fluticasone (FLONASE) 50 MCG/ACT nasal spray 06/03/2019 12:00:00 AM EST [facility] Potassium Chloride 20 MEQ Extended Release Oral Tablet 05/26/2019 12:00:00 AM EST [facility] Bisoprolol Fumarate 10 MG Oral Tablet [facility] Chlorthalidone 25 MG Oral Tablet [facility] Hydrochlorothiazide 25 MG Oral Tablet [facility] Bisoprolol Fumarate 10 MG / Hydrochlorothiazide 6.25 MG Oral Tablet [facility] Levothyroxine Sodium 0.1 MG Oral Tablet [facility]
--- NOTE | 2021-02-04 18:57 | ECGEPIP ---
[facility] - ED Test Date: 2021-02-04 Pat Name: LISA DIAMOND Department: Room: - Gender: Female Derrick Helper: FOREST DEAN : 1945 Requested By: REHAN Ledesma Order Number: [id number] Reading MD: Robert Laguna Measurements Intervals [place] Rate: 87 P: AR: QRS: -29 QRSD: 94 T: 150 QT: 328 QTc: 394 Interpretive Statements Atrial fibrillation with frequent ventricular-paced complexes Left ventricular hypertrophy with repolarization abnormality ( R in aVL , Jose R product ) Electronically Signed on 02-04-2021 18:56:41 EDT by Robert Laguna
[2021-02-04] MEDS ORDERED: dexameTHASONE 20MG/5ML VIAL (J1100 PER 1MG) IV ONE (19:20)
[2021-02-04] MEDS ORDERED: MOM 30ML SUSPENSION UDC PO PRN (19:30)
[2021-02-04] MEDS ORDERED: MAALOX 30 ML SUSP *UDC PO PRN (19:30)
--- NOTE | 2021-02-04 19:37 | HPEPDOC ---
[facility] Medical History & Physical Date of Admission Feb 04, 2021 Date of Service: Feb 04, 2021 Primary Care Physician: ALBERTO KEITA MD Attending Physician: ELAINE THOMAS MD History and Physical TIME OF SERVICE: 8:30pm CHIEF COMPLAINT: sent from by Pulmonolgists office HISTORY OF PRESENT ILLNESS: was last admitted to our service in September for management of sick sinus syndrome and had a pacemaker placed. After she was discharged she followed up with ; a few days ago he noted that she was in RVR so he increased the dose of her Cardizem. Today she was scheduled to have a follow up appointment with ; after informing his office that she was short of breath she was instructed to come to the ER instead. In addition to the dyspnea she has a cough, chest / back / shoulder tightness due to coughing, chills and vomiting. Because of the vomiting she hasnt been able to keep any food down. She denies having fevers. Of note her daughter and son in law, who came from [place] on , were diagnosed with COVID. Despite receiving 2 doses of the Moderna vaccine she was diagnosed with COVID 19 today and was noted to destat to 88% with ambulation. REVIEW OF SYSTEMS: 10-point review of systems negative except as listed in HPI PAST MEDICAL/ SURGICAL HISTORY: Paroxysmal ? Atrial fibrillation (s/p ablation & Cardioversion), Sick sinus syndrome (pacemaker placement), IDDM w Gastroparesis, Essential HTN, Chronic HFpEF, DLP, Amiodarone induced pulmonary fibrosis, Hypothyroidism, DEVEN, CKD 3,, GERD, Macular degeneration, Follicular NHL (shari ssion), Chronic Asthma, Right parathyroidectomy, Left rotator cuff surgery, Tubal ligation, left corneal transplant, Cholecystectomy, Vitreous hemorrhage (s/p Bilateral vitrectomy), resection of facial BCC, umbilical hernia repair, left inguinal hernia repair, right total knee replacement FAMILY HISTORY: Father DM, CAD & HTN / Mother HTN, DM, Hypothyroidism / sister COPD /Asthma, HTN / brother DM, HTN SOCIAL HISTORY: She doesnt smoke, drink or use recreational drugs. 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 ALLERGIES: Please see below. HOME MEDICATIONS: Please see below. PHYSICAL EXAMINATION: Vital Signs Date Time Temp Pulse Resp B/P (MAP) Pulse Ox O2 Delivery O2 Flow Rate FiO2 02/04/21 11:23 97.6 81 20 134/60 (84) 96 Room Air GENERAL APPEARANCE: well-nourished and developed/ appears to be feeling unwell / occasionally having chills HEENT: EOMI / mask covering lower face CARDIOVASCULAR: HR irregularly irregular /scar at right upper chest from pacemaker placement is healing well / LUNGS: tachypneic / has difficulties speaking full sentences w/o stopping to take a breath / frequent coughing spells / air entry equal bilaterally / CTAB (not wheezing) ABDOMEN: contour convex / soft & NT w palpation MUSCULOSKELETAL: NCAT / extremities cool INTEGUMENT: not flushed or diaphoretic NEUROLOGICAL: CN 2-12 grossly intact / speech not dysarthric PSYCHIATRIC: A&O x 3 / able to understand and follow all commands LABORATORY DATA: IMAGING: Chest xray IMPRESSION: Moderate bilateral infiltrates. Differential diagnosis includes multifocal pneumonia and COVID-19 pulmonary disease. MICROBIOLOGY: Respiratory panel + COVID 19 ASSESSMENT: is a 75 yr old w Atrial fibrillation, Sick sinus syndrome (pacemaker placement), IDDM w Gastroparesis, HTN, HFpEF, DLP, Hypothyroidism,DEVEN,CKD 3, GERD, NHL & Asthma who is admitted for sepsis, COVID 19, acute Asthma, Hypoglycemia and DHARMESH. PLAN: 1 Sepsis -2/2 COVID 19 -SIRS criteria tachycardia and tachypnea Plan: admit to ICU / telemetry / f/u lactic acid / abx not indicated bc the cause is a viral infection / will only give 1L bolus of LR bc her MAP is wnl and she has a hx of CHF /f/u blood cx & prolactin / Acetaminophen PRN for fever / target MAP at of least 65 to 70 / f/u Is and Os with target UOP of at least 0.5 ml/kg/H / f/u FSBS w target serum glucose 140-180 while acutely ill 2 COVID 19 Pneumonia -This is a break through infection (s/p Moderna x2) -She has hypoxemia on exertion Plan: continuous pulse ox / supplemental O2 (target O2 sats between 92-95%) / contact & air borne precautions / awake proning / levalbuterol PRN/ f/u VBG to assess the degree of hypoxemia / steroids/ Remdesivir / day time team to consult Pulm to start Baricitinb 3 Acute Asthma -2/2 COVID 19 Plan: administer Mag sulfate prior to admission to the medial floor (Mg sulfate has bronchodilator activity possibly due to inhibition of calcium influx into airway smooth muscle cells; it can also help improve lung function in patients with severe asthma exacerbations that are not responding to initial therapy) / c/w supplemental O2 / continuous pulse ox / Dunebs Q6H, Levalbuterol PRN / steroids / PPI to prevent steroid induced ulcer / Tessalon Pearls 4 Hypoglycemia / IDDM w Gastroparesis -2/2 poor PO intake -Glucose 46 Plan: D5NS / diabetic diet / f/u accuchecks Q2H/ hypoglycemia protocol / sliding scale insulin / hold oral anti-glycemic & hold long acting glycemic/ f/u A1C 5 Vomiting -2/2 COVID Plan: Zofran & D5 NS / check Dig levels to r/o toxicity 6 A fib w w RVR / Sick sinus syndrome w pacemaker Plan: IVF / give 15mg IV Cardizem x 1 now / telemetry / resume home dose of Bisoprolol and Diltiazem / hold Digoxin bc of DHARMESH & check Dig levels / bc of DHARMESH will hold Apixaban and switch to Heparin drip 7 DHARMESH on CKD 3 -DHARMESH likely due to vomiting, poor PO intake i/s/o taking several meds that can cause renal impairment Plan: monitor UOP / IVF / f/u PTH, Phosphorus, Ulytes & renal US / hold nephrotoxic drugs ( Digoxin, Methotrexate, Chlorthalidone, Spironolactone & Losartan) 8 Essential HTN Plan: Bisprolol & Diltiazem / PRN Labetaolol w hold parameters / ( Chlorthalidone, Spironolactone & Losartan on hold bc of DHARMESH) 9 Chronic HFpEF -Euvolemic Plan: monitor Is and Os and daily weights 10 Hypothyroidism Plan: levothyroxine 11 DEVEN -Unable to find sleep study Plan: pulse ox w supplemental O2 / own CPAP 12 Follicular non-Hodgkin's lymphoma Plan: hold MTX while ill /c/w folic acid 13 Class 3 obesity -complicates care DVT px n/a on heparin drip rather than DOAC bc of DHARMESH Disposition: home after more than 2 midnights stay Home Medications Scheduled Apixaban (Eliquis) 5 Mg Tab, 5 MG PO BID Atorvastatin Calcium (Atorvastatin Calcium) 80 Mg Tablet, 80 MG PO QHS Bisoprolol Fumarate (Bisoprolol Fumarate) 10 Mg Tablet, 10 MG PO DAILY Calcium Carbonate (Calcium) 500 Mg Tablet, 500 MG PO DAILY Chlorthalidone (Chlorthalidone) 25 Mg Tablet, 25 MG PO DAILY Cyclosporine (Restasis) 0.05% Droperette, 1 DROP OU BID Digoxin (Digoxin) 125 Mcg Tablet, 125 MCG PO DAILY Dulaglutide (Trulicity) 1.5 Mg/0.5 Ml Pen.injctr, 1.5 MG SC QWEEK SUNDAY Folic Acid (Folic Acid) 1 Mg Tablet, 1 MG PO DAILY Glipizide (Glipizide) 10 Mg Tablet, 10 MG PO BID Insulin Glargine,Hum.rec.anlog (Toujenelson Solostar) 300 Unit/1 Ml Insuln.pen, 150 UNIT SC DAILY Insulin Human Lispro (Humalog) 1 Units/0.01 Ml Inj, 1 DOSE SC ACHS PER SLIDING SCALE Levothyroxine Sodium (Levothyroxine Sodium) 137 Mcg Tablet, 137 MCG PO DAILY Losartan Potassium (Losartan Potassium) 25 Mg Tablet, 25 MG PO DAILY Methotrexate Sodium (Methotrexate) 2.5 Mg Tablet, 10 MG PO QWEEK FRIDAYS Mineral Oil/Petrolatum,White (Refresh P.m. Ointment) 3.5 Gm Oint...g., 1 DOSE OU QHS Omeprazole (Omeprazole) 40 Mg Cap, 40 MG PO DAILY Spironolactone (Spironolactone) 25 Mg Tablet, 12.5 MG PO DAILY dilTIAZem HCl (Diltiazem 24Hr Cd) 120 Mg Cap.er.24h, 120 MG PO DAILY Scheduled PRN Carboxymethylcellulose Sodium (Refresh Tears) 15 Ml Drops, 1 DROP OU TID PRN for DRY EYES Fluticasone Propionate (Flonase Allergy Relief) 9.9 Ml [place].susp, 1 SPRAY NARES DAILY PRN for NASAL CONGESTION Allergies Coded Allergies: erythromycin base (Verified Allergy, Intermediate, rash, 04/28/19) sitagliptin (Verified Allergy, Intermediate, Rash, 04/28/19) amiodarone (Verified Adverse Reaction, Intermediate, Lung Issues, 04/18/19) latex (Verified Adverse Reaction, Mild, Risk, 04/18/19) lisinopril (Verified Adverse Reaction, Mild, cough, 04/18/19) A-FIB/CHADSVASC A-FIB History Current/History of A-Fib/PAF?: Yes Current PO Anticoag Therapy: No Treatment Treatment ordered: Heparin IV bridge Therapy ELAINE THOMAS MD Feb 04, 2021 19:37
--- OUTSIDE RECORDS SUMMARY | 2021-02-04 19:49 | CCD ---
Author Author [facility] Organization [facility] Address Unknown Phone Unavailable Care Team Providers Care Surgical Instrument Mechanic Name Role Phone Femi, Hemanth Annia RPA C Unavailable Unavailable Charlebois, A [...] Unavailable Unavailable Kael Huertaatt PA Unavailable Unavailable HuertaKael thrasheratt PA Unavailable Unavailable Kael Huertaatt PA Unavailable [...] Unavailable Rechlin, P Reilly DO Unavailable Unavailable Mekhi Hebert, Hemanth Grover MD, FACS Unavailable Unavailable [...] Hemanth Grover MD, FACS Unavailable Unavailable Gaming Hbeert, Hemanth Grover MD, FACS Unavailable Unavailable Gaming [...] Vaneenenaam, Terry Belle MD Unavailable Unavailable Vaneenenaam, D Peter MD Unavailable Unavailable Terry Alvarez MD Unavailable [...] MD Unavailable Unavaila ble PARTH, B TJ CHIEF I DISPATCHER Unavailable Unavailable PARTH, B TJ CHIEF I DISPATCHER Unavailable Unavailable PARTH, B TJ CHIEF I DISPATCHER Unavailable Unavailable PARTH, B TJ CHIEF I DISPATCHER Unavailable Unavailable PARTH, B TJ CHIEF I DISPATCHER Unavailable Unavailable PARTH, B TJ CHIEF I DISPATCHER Unavailable Unavailable PARTH, B TJ CHIEF I DISPATCHER Unavailable Unavailable PARTH, B TJ CHIEF I DISPATCHER Unavailable Unavailable PARTH, B TJ CHIEF I DISPATCHER Unavailable Unavailable PARTH, B TJ CHIEF I DISPATCHER Unavailable Unavailable PARTH, B TJ CHIEF I DISPATCHER Unavailable Unavailable PARTH, B TJ CHIEF I DISPATCHER Unavailable Unavailable PARTH, B TJ CHIEF I DISPATCHER Unavailable Unavailable PARTH, B TJ CHIEF I DISPATCHER Unavailable Unavailable PARTH, B TJ CHIEF I DISPATCHER Unavailable Unavailable PARTH, B TJ CHIEF I DISPATCHER Unavailable Unavailable PARTH, B TJ CHIEF I DISPATCHER Unavailable Unavailable PARTH, B TJ CHIEF I DISPATCHER Unavailable Unavailable PARTH, B TJ CHIEF I DISPATCHER Unavailable Unavailable PARTH, B TJ CHIEF I DISPATCHER Unavailable Unavailable PARTH, B TJ CHIEF I DISPATCHER Unavailable Unavailable PARTH, B TJ CHIEF I DISPATCHER Unavailable Unavailable PARTH, B TJ CHIEF I DISPATCHER Unavailable Unavailable PARTH, B TJ CHIEF I DISPATCHER Unavailable Unavailable PARTH, B TJ CHIEF I DISPATCHER Unavailable Unavailable PARTH, B TJ CHIEF I DISPATCHER Unavailable Unavailable PARTH, B TJ CHIEF I DISPATCHER Unavailable Unavailable PARTH, B TJ CHIEF I DISPATCHER Unavailable Unavailable PARTH, B TJ CHIEF I DISPATCHER Unavailable Unavailable PARTH, B TJ CHIEF I DISPATCHER Unavailable Unavailable PARTH, B TJ CHIEF I DISPATCHER Unavailable Unavailable PARTH, B TJ CHIEF I DISPATCHER Unavailable Unavailable PARTH, B TJ CHIEF I DISPATCHER Unavailable Unavailable PARTH, B TJ CHIEF I DISPATCHER Unavailable Unavailable PARTH, B TJ CHIEF I DISPATCHER Unavailable Unavailable PARTH, B TJ CHIEF I DISPATCHER Unavailable Unavailable PARTH, B TJ CHIEF I DISPATCHER Unavailable Unavailable PARTH, B TJ CHIEF I DISPATCHER Unavailable Unavailable PARTH, B TJ CHIEF I DISPATCHER Unavailable Unavailable PARTH, B TJ CHIEF I DISPATCHER Unavailable Unavailable PARTH, B TJ CHIEF I DISPATCHER Unavailable Unavailable PARTH, B TJ CHIEF I DISPATCHER Unavailable Unavailable PARTH, B TJ CHIEF I DISPATCHER Unavailable Unavailable PARTH, B TJ CHIEF I DISPATCHER Unavailable Unavailable PARTH, B TJ CHIEF I DISPATCHER Unavailable Unavailable PARTH, B TJ CHIEF I DISPATCHER Unavailable Unavailable PARTH, B TJ CHIEF I DISPATCHER Unavailable Unavailable PARTH, B TJ CHIEF I DISPATCHER Unavailable Unavailable PARTH, B TJ CHIEF I DISPATCHER Unavailable Unavailable PARTH, B TJ CHIEF I DISPATCHER Unavailable Unavailable PARTH, B TJ CHIEF I DISPATCHER Unavailable Unavailable PARTH, B TJ CHIEF I DISPATCHER Unavailable Unavailable PARTH, B TJ CHIEF I DISPATCHER Unavailable Unavailable PARTH, B TJ CHIEF I DISPATCHER Unavailable Unavailable PARTH, B TJ CHIEF I DISPATCHER Unavailable Unavailable PARTH, B TJ CHIEF I DISPATCHER Unavailable Unavailable PARTH, B TJ CHIEF I DISPATCHER Unavailable Unavailable PARTH, B TJ CHIEF I DISPATCHER Unavailable Unavailable PARTH, B TJ CHIEF I DISPATCHER Unavailable Unavailable PARTH, B TJ CHIEF I DISPATCHER Unavailable Unavailable PARTH, B TJ CHIEF I DISPATCHER Unavailable Unavailable PARTH, B TJ CHIEF I DISPATCHER Unavailable Unavailable Jimmie Webb MD Unavailable Unavailable [...] Unavailable Boykin, Simone Thomas PA Unavailable Unavailable BoykinSimone PA Unavailable Unavailable Boykin, Simone Thomas PA Unavailable Unavailable Fons, M Lauren WOODEN FURNITURE POLISHER Unavailable Unavailable Fons, M Lauren WOODEN FURNITURE POLISHER Unavailable Unavailable Fons, M Lauren WOODEN FURNITURE POLISHER Unavailable Unavailable Fons, M Lauren WOODEN FURNITURE POLISHER Unavailable Unavailable Fons, M Lauren WOODEN FURNITURE POLISHER Unavailable Unavailable Fons, M Lauren WOODEN FURNITURE POLISHER Unavailable Unavailable Fons, M Lauren WOODEN FURNITURE POLISHER Unavailable Unavailable Fons, M Lauren WOODEN FURNITURE POLISHER Unavailable Unavailable Fons, M Lauren WOODEN FURNITURE POLISHER Unavailable Unavailable Fons, M Lauren WOODEN FURNITURE POLISHER Unavailable Unavailable Fons, M Lauren WOODEN FURNITURE POLISHER Unavailable Unavailable Fons, M Lauren WOODEN FURNITURE POLISHER Unavailable Unavailable Fons, M Lauren WOODEN FURNITURE POLISHER Unavailable Unavailable Fons, M Lauren WOODEN FURNITURE POLISHER Unavailable Unavailable Fons, M Lauren WOODEN FURNITURE POLISHER Unavailable Unavailable Fons, M Lauren WOODEN FURNITURE POLISHER Unavailable Unavailable Fons, M Lauren WOODEN FURNITURE POLISHER Unavailable Unavailable Fons, M Lauren WOODEN FURNITURE POLISHER Unavailable Unavailable Fons, M Lauren WOODEN FURNITURE POLISHER Unavailable Unavailable Fons, M Lauren WOODEN FURNITURE POLISHER Unavailable Unavailable Fons, M Lauren WOODEN FURNITURE POLISHER Unavailable Unavailable Fons, M Lauren WOODEN FURNITURE POLISHER Unavailable Unavailable Fons, M Lauren WOODEN FURNITURE POLISHER Unavailable Unavailable Fons, M Lauren WOODEN FURNITURE POLISHER Unavailable Unavailable Fons, M Lauren WOODEN FURNITURE POLISHER Unavailable Unavailable Fons, M Lauren WOODEN FURNITURE POLISHER Unavailable Unavailable Fons, M Lauren WOODEN FURNITURE POLISHER Unavailable Unavailable Fons, M Lauren WOODEN FURNITURE POLISHER Unavailable Unavailable Fons, M Lauren WOODEN FURNITURE POLISHER Unavailable Unavailable Fons, M Lauren WOODEN FURNITURE POLISHER Unavailable Unavailable Fons, M Lauren WOODEN FURNITURE POLISHER Unavailable Unavailable Fons, M Lauren WOODEN FURNITURE POLISHER Unavailable Unavailable Fons, M Lauren WOODEN FURNITURE POLISHER Unavailable Unavailable Fons, M Lauren WOODEN FURNITURE POLISHER Unavailable Unavailable Fons, M Lauren WOODEN FURNITURE POLISHER Unavailable Unavailable Fons, M Lauren WOODEN FURNITURE POLISHER Unavailable Unavailable Fons, M Lauren WOODEN FURNITURE POLISHER Unavailable Unavailable Fons, M Lauren WOODEN FURNITURE POLISHER Unavailable Unavailable Fons, M Lauren WOODEN FURNITURE POLISHER Unavailable Unavailable Fons, M Lauren WOODEN FURNITURE POLISHER Unavailable Unavailable Fons, M Lauren WOODEN FURNITURE POLISHER Unavailable Unavailable Fons, M Lauren WOODEN FURNITURE POLISHER Unavailable Unavailable Fons, M Lauren WOODEN FURNITURE POLISHER Unavailable Unavailable Fons, M Lauren WOODEN FURNITURE POLISHER Unavailable Unavailable Fons, M Lauren WOODEN FURNITURE POLISHER Unavailable Unavailable Fons, M Lauren WOODEN FURNITURE POLISHER Unavailable Unavailable Fons, M Lauren WOODEN FURNITURE POLISHER Unavailable Unavailable Fons, M Lauren WOODEN FURNITURE POLISHER Unavailable Unavailable Fons, M Lauren WOODEN FURNITURE POLISHER Unavailable Unavailable Fons, M Lauren WOODEN FURNITURE POLISHER Unavailable Unavailable Fons, M Lauren WOODEN FURNITURE POLISHER Unavailable Unavailable Fons, M Lauren WOODEN FURNITURE POLISHER Unavailable Unavailable Fons, M Lauren WOODEN FURNITURE POLISHER Unavailable Unavailable Sheila, V ROSAMARIA PA-C Unavailable Unavailable Hemphill, V ROSAMARIA PA-C Unavailable Unavailable Hemphill, V ROSAMARIA PA-C Unavailable Unavailable Hemphill, V ROSAMARIA PA-C Unavailable Unavailable Hemphill, V ROSAMARIA PA-C Unavailable Unavailable Hemphill, V ROSAMARIA PA-C Unavailable Unavailable Hemphill, V ROSAMARIA PA-C Unavailable Unavailable Hemphill, V ROSAMARIA PA-C Unavailable Unavailable Hemphill, V ROSAMARIA PA-C Unavailable Unavailable Hemphill, V ROSAMARIA PA-C Unavailable Unavailable Sheila, V ROSAMARIA PA-C Unavailable Unavailable Sheila, V ROSAMARIA PA-C Unavailable Unavailable Hemphill, V ROSAMARIA PA-C Unavailable Unavailable Sheila, V [...] protected by Article 27-F of the [facility] Public Health law. If you continue you may have access to information: Regarding HIV / AIDS; Provided by facilities licensed or operated by the [facility] Office of Mental Health; or Provided by the [facility] Office for People With Developmental Disabilities. If such information is present, then the following [facility] mandated warning applies: This information has [...] law may result in a fine or long-term sentence or both. A general authorization for the release of medical or other information is NOT sufficient authorization for further disc losure. Family History Family Member Name Family Member Gender Family Member Status Date o f Status Description Data Source(s) Unknown Unknown Problem [facility] ([facility] ) Encounters Encounter Providers Location Date Indications Data Source(s ) Outpatient Attender: Lauren CHOE-SJP.BRIGID 02/03/2021 12:00:00 AM EDT [facility] Unknown [address] [facility] [id number] 01/27/2021 12:00:00 AM EDT eCW1 ([facility]) Outpatient [address] [facility] [id number] 01/27/2021 12:00:00 AM EDT eCW1 ([facility]) Unknown [address] [facility] [address] 01/20/2021 12:00:00 AM EDT eCW1 ([facility]) Outpatient [id number] 01/19/2021 12:46:39 PM EDT [facility] Outpatient Attender: Lauren CHOE-SJPJose LuisBRIGID 01/19/2021 12:00:00 AM EDT [facility] Outpatient Referrer: Micheal Arguello MD 01/12/2021 08:22:1 4 AM EDT [facility] Outpatient Attender: Micheal Arguello MD [facility] 01/06/2021 04:00:00 PM EDT [facility] ([facility]) [place] [address] [facility] [address] 01/03/2021 12:00:00 AM EDT eCW1 ([facility]) [place] [address] [facility] [address] 01/03/2021 12:00:00 AM EDT eCW1 ([facility]) [place] [address] [facility] [address] 01/03/2021 12:00:00 AM EDT eCW1 ([facility]) [place] [address] [facility] [address] 12/20/2020 12:00:00 AM EDT eCW1 ([facility]) Outpatient Attender: ROSAMARIA Sosa PA-C SJP.BRIGID-SJP.BRIGID 12:00:00 AM EDT - 12/16/2020 10:48:46 AM EDT [facility] [place] [address] [facility] [address] 12/15/2020 12:00:00 AM EDT eCW1 ([facility]) [place] [address] [facility] [address] 12/13/2020 12:00:00 AM EDT eCW1 ([facility]) Outpatient Attender: Jimmie Vargas/Tracey/Serge/Yeimi nichols 12/06/2020 10:40:00 AM EDT [facility] ([facility]) [place] [address] [facility] [address] 11/25/2020 12:00:00 AM EDT eCW1 ([facility]) Outpatient Referrer: Martha JOHNSTON.BRIGID-SJP.BRIGID 07/2020 07:56:48 AM EDT [facility] Outpatient SJP.BRIGID-SJP 11/20/2020 06:57:15 PM EDT [facility] Outpatient Attender: ROSAMARIA ARAGONBRIGID-SJP.BRIGID 12:00:00 AM EDT - 11/11/2020 02:31:36 PM EDT [facility] Outpatient SJP.BRIGID-SJP.BRIGID 11/11/2020 12:00:00 AM EDT [facility] Outpatient Attender: TJ ALBA NP Physical Therapy 01:15:00 PM EDT [facility] ) Outpatient<td ID="encounterTypeDescripti onID0">TRIAGE NON URGENT</td><td>Dmitry Torres DO</td><td>Reilly Burks MD [facility]</td><td>11/09/2020</td><td>9:15AM</td><td>11:09AM</td><td><content ID="encounterDiagnosisID0-0">Hypotony of Eye</content>, <content ID="encounterDiagnosisID0-1">Conjunctival Concretions</content>, <content ID="encounterDiagnosisID0-2">Blepharitis Squamous</content>, <content ID="encounterDiagnosisID0-3">Dry Eye Syndrome Right Eye</content>, <content ID="encounterDiagnosisID0-4">Phthisis Bulbi Left Eye</content>, <content ID="encounterDiagnosisID0-5">Corneal Opacity</content></td> Attender: DMITRY Santacruz MD [facility] 11/09/2020 09:15:00 AM EDT - 11/09/2020 11:09:00 AM EDT Phthisis Bulbi Left EyePhthisis Bulbi Le ft EyePhthisis Bulbi Left EyePhthisis Bulbi Left EyeCorneal OpacityCorneal OpacityCorneal OpacityCorneal OpacityDry Eye Syndrome Right EyeDry Eye Syndrome Right EyeDry Eye Syndrome Right EyeDry Eye Syndrome Right EyeConjunctival ConcretionsHypotony of EyeConjunctival ConcretionsHypotony of EyeConjunctival ConcretionsHypotony of EyeConjunctival ConcretionsHypotony of EyeBlepharitis SquamousBlepharitis SquamousBlepharitis SquamousBlepharitis Squamous RODDY (Reilly Hebert MD [facility]) Phthisis Bulbi Left Eye Phthisis Bulbi Left [...] Vargas/Tracey/Serge/Yeimi nichols 11/08/2020 01:40:00 PM EDT [facility] ([facility]) Outpatient Attender: Norris STEWART Physical Therapy 10:15:00 AM EDT [facility] ([facility]) Outpatient [address] [facility] [place] [address] 10/22/2020 12:00:00 AM EDT eCW1 ([facility]) Unknown [address] [facility] [address] 10/21/2020 12:00:00 AM EDT eCW1 ([facility]) Outpatient Attender: CESILIA STEWART Main Office 10/18/2020 0 9:30:00 AM EDT [facility] ([facility]) Outpatient Referrer: ROSAMARIA CHOE-SJP.BRIGID 12:00:00 AM EDT [facility] Outpatient Attender: ROSAMARIA CHOE-SJP.BRIGID 02:30:47 PM EDT - 10/14/2020 03:33:57 PM EDT [facility] Outpatient Attender: ROSAMARIA ARAGONBRIGID-SJP.BRIGID 02:56:51 PM EDT - 10/11/2020 03:49:36 PM EDT [facility] Outpatient SJAlessandroCTANNEMARIE.SYR 10/11/2020 01:45:33 PM EDT [facility] Outpatient Attender: Reilly Cueva/Tracey/Serge/Azael ndl 10/07/2020 09:00:00 AM EDT [facility] ([facility]) Outpatient Attender: Jimmie Vargas/Tracey/Serge/Reind simone 10/05/2020 01:00:00 PM EDT [facility] ([facility] ) Outpatient [address] [facility] [address] 10/04/2020 12:00:00 AM EDT eCW1 ([facility]) Outpatient Attender: Martha ARAGONBRIGID-SJP.BRIGID 01/2021 12:00:00 AM EDT - 10/08/2020 10:43:05 AM EDT [facility] [place] [address] [facility] [address] 09/16/2020 12:00:00 AM EDT eCW1 ([facility]) Outpatient<td ID="encounterTypeDescripti onID1">2 Month Follow up</td><td>Dmitry Torres DO</td><td>Reilly Burks MD [facility]</td><td>09/14/2020</td><td>7:16AM</td><td>8:10AM</td><td><content ID="encounterDiagnosisID1-0">Hypotony of Eye</content>, <content ID="encounterDiagnosisID1-1">Conjunctival Concretions</content>, <content ID="encounterDiagnosisID1-2">Blepharitis Squamous</content>, <content ID="encounterDiagnosisID1-3">Dry Eye Syndrome Right Eye</content>, <content ID="encounterDiagnosisID1-4">Phthisis Bulbi Left Eye</content>, <content ID="encounterDiagnosisID1-5">Corneal Opacity</content></td> Attender: DMITRY Santacruz MD [facility] 09/14/2020 07:16:00 AM EDT - 09/14/2020 08:10:00 [...] SquamousBlepharitis SquamousBlepharitis Squamous RODDY (Reilly Hebert MD [facility]) Phthisis Bulbi Left Eye Phthisis Bulbi Left [...] Vargas/Tracey/Serge/Yeimi nichols 09/09/2020 03:10:00 PM EDT [facility] ([facility], ) <td ID="encounterTypeDescriptionID2">TRI AGE NON URGENT</td><td>Reilly Hebert MD, FACS</td><td>Reilly Burks MD [facility]</td><td>09/02/2020</td><td>7:16AM</td><td>7:58AM</td><td><content ID="encounterDiagnosisID2-0">Lacrimal Stenosis Nasolacrimal Duct Acquired</content>, <content ID="encounterDiagnosisID2-1">Conjunctivitis Acute Bacterial</content></td>Outpatient Attender: Reilly Hebert MD, FACS Reilly Burks MD [facility] 09/02/2020 07:16:00 AM EDT - 09/02/2020 07:58:00 AM ED T Conjunctivitis Acute BacterialLacrimal Stenosis Nasolacrimal Duct AcquiredConjunctivitis Acute BacterialLacrimal Stenosis Nasolacrimal Duct AcquiredConjunctivitis Acute BacterialLacrimal Stenosis Nasolacrimal Duct AcquiredConjunctivitis Acute BacterialLacrimal Stenosis Nasolacrimal Duct AcquiredConjunctivitis Acute BacterialLacrimal Stenosis Nasolacrimal Duct Acquired RODDY (Reilly Hebert MD [facility]) Conjunctivitis Acute Bacterial Lacrimal Stenosis Nasolacrimal Duct Acqu ired Conjunctivitis Acute Bacterial Lacrimal Stenosis Nasolacrimal Duct Acqu ired Conjunctivitis Acute Bacterial Lacrimal Stenosis Nasolacrimal Duct Acqu ired Conjunctivitis Acute Bacterial Lacrimal Stenosis Nasolacrimal Duct Acqu ired Conjunctivitis Acute Bacterial Lacrimal Stenosis Nasolacrimal Duct Acqu ired Office Visit Attender: Jimmie Vargas/Tracey/Serge/Reind l 08/31/2020 09:00:00 AM EDT [facility] ([facility]) [place] [address] [facility] [address] 08/24/2020 12:00:00 AM EDT eCW1 ([facility]) Outpatient Attender: Jimmie Vargas/Tracey/Serge/Reind l 08/19/2020 08:20:00 AM EDT [facility] ([facility]) [place] [address] [facility] [address] 08/19/2020 12:00:00 AM EDT eCW1 ([facility]) Unknown [address] [facility] [address] 08/18/2020 12:00:00 AM EDT eCW1 ([facility]) Outpatient Attender: ROSAMARIA JOHNSTON.BRIGID-SJP.BRIGID 12:00:00 AM EDT - 08/17/2020 09:06:19 AM EDT [facility] Unknown [address] [facility] [address] 08/04/2020 12:00:00 AM EDT eCW1 ([facility]) Outpatient Attender: TJ ALBA NP Physical Therapy 02:15:00 PM EDT [facility] ([facility]) Outpatient Attender: Jimmie Vargas/Tracey/Serge/Yeimi nichols 07/19/2020 08:00:00 AM EDT [facility] ([facility]) Outpatient<td ID="encounterTypeDescripti onID3">LACRIMAL IRRIGATION & PROBING IN OFFICE Global 10 day</td><td>Dmitry Torres DO</td><td>Reilly Burks MD [facility]</td><td>07/16/2020</td><td>7:25AM</td><td>8:13AM</td><td><content ID="encounterDiagnosisID3-0">Conjunctival Concretions</content>, <content ID="encounterDiagnosisID3-1">Hypotony of Eye</content>, <content ID="encounterDiagnosisID3-2">Blepharitis Squamous</content>, <content ID="encounterDiagnosisID3-3">Dry Eye Syndrome Right Eye</content>, <content ID="encounterDiagnosisID3-4">Phthisis Bulbi Left Eye</content>, <content ID="encounterDiagnosisID3-5">Corneal Opacity</content>, <content ID="encounterDiagnosisID3-6">Lacrimal Stenosis Nasolacrimal Duct Acquired</content></td> Attender: DMITRY Santacruz MD [facility] 07/16/2020 07:25:00 AM EDT - 07/16/2020 08:13:00 AM EDT Lacrimal Stenosis Nasolacrimal Duct AcquiredPhthisis Bulbi Left [...] SquamousBlepharitis SquamousBlepharitis Squamous RODDY (Reilly Hebert MD [facility]) Lacrimal Stenosis Nasolacrimal Duct Acqu ired Phthisis [...] Vargas/Tracey/Hemanth zarate/Latricia 07/09/2020 11:15:00 AM EDT [facility] ([facility]) Unknown [address] [facility], [facility] [address] 06/29/2020 12:00:00 AM EST eCW1 ([facility]) Unknown [address] [facility], [facility] [address] 06/29/2020 12:00:00 AM EST eCW1 ([facility]) Unknown [address] [facility], [facility] [address] 06/28/2020 12:00:00 AM EST eCW1 ([facility]) Office Visit, Est Pt., Level 4 [address] [place] [address] 06/28/2020 12:00:00 AM EST eCW1 ([facility]) Outpatient<td ID="encounterTypeDescripti onID4">1 Month Follow-Up</td><td>Dmitry Torres DO</td><td>Reilly Burks MD [facility]</td><td>06/15/2020</td><td>7:16AM</td><td>8:00AM</td><td><content ID="encounterDiagnosisID4-0">Hypotony of Eye</content>, <content ID="encounterDiagnosisID4-1">Conjunctival Concretions</content>, <content ID="encounterDiagnosisID4-2">Blepharitis Squamous</content>, <content ID="encounterDiagnosisID4-3">Dry Eye Syndrome Right Eye</content>, <content ID="encounterDiagnosisID4-4">Phthisis Bulbi Left Eye</content>, <content ID="encounterDiagnosisID4-5">Corneal Opacity</content>, <content ID="encounterDiagnosisID4-6">Epiphora Due To Excess Lacrimation</content></td> Attender: DMITRY Santacruz MD [facility] 06/15/2020 07:16:00 AM EST - 06/15/2020 08:00:00 [...] SquamousBlepharitis SquamousBlepharitis Squamous RODDY (Reilly Hebert MD [facility]) Epiphora Due To Excess Lacrimation Phthisis Bulbi [...] Squamous Blepharitis Squamous Blepharitis Squamous [place] [address] [facility] [address] 06/11/2020 12:00:00 AM EST eCW1 ([facility]) Unknown [address] [facility] [address] 06/07/2020 12:00:00 AM EST eCW1 ([facility]) Outpatient [address] [facility] [address] 05/24/2020 12:00:00 AM EST eCW1 ([facility]) <td ID="encounterTypeDescriptionID5">2 W coquille Follow-Up</td><td>Dmitry Torres DO</td><td>Reilly Burks MD [facility]</td><td>05/13/2020</td><td>7:16AM</td><td>8:11AM</td><td><content ID="encounterDiagnosisID5-0">Hypotony of Eye</content>, <content ID="encounterDiagnosisID5-1">Corneal Degeneration Recurrent Erosion</content>, <content ID="encounterDiagnosisID5-2">Conjunctival Concretions</content>, <content ID="encounterDiagnosisID5-3">Blepharitis Squamous</content>, <content ID="encounterDiagnosisID5-4">Dry Eye Syndrome Right Eye</content>, <content ID="encounterDiagnosisID5-5">Phthisis Bulbi Left Eye</content>, <content ID="encounterDiagnosisID5-6">Corneal Opacity</content></td>Outpatient Attender: DMITRY Santacruz MD [facility] 05/13/2020 07:16:00 AM EST - 05/13/2020 08:11:00 [...] SquamousBlepharitis SquamousBlepharitis Squamous RODDY (Reilly Hebert MD [facility]) Phthisis Bulbi Left Eye Corneal Degeneration Recurrent [...] NP Physical Therapy 02:15:00 PM EST [facility] ([facility]) [place] [address] [facility] [address] 05/04/2020 12:00:00 AM EST eCW1 ([facility]) Unknown [address] [facility] [address] 04/30/2020 12:00:00 AM EST eCW1 ([facility]) Office Visit, Est Pt., Level 4 [address] [place] [address] 04/30/2020 12:00:00 AM EST eCW1 ([facility]) <td ID="encounterTypeDescriptionID6">1 W coquille Follow-Up</td><td>Dmitry Torres DO</td><td>Reilly Burks MD [facility]</td><td>04/28/2020</td><td>7:30AM</td><td>8:23AM</td><td><content ID="encounterDiagnosisID6-0">Hypotony of Eye</content>, <content ID="encounterDiagnosisID6-1">Corneal Degeneration Recurrent Erosion</content>, <content ID="encounterDiagnosisID6-2">Blepharitis Squamous</content>, <content ID="encounterDiagnosisID6-3">Dry Eye Syndrome Right Eye</content>, <content ID="encounterDiagnosisID6-4">Phthisis Bulbi Left Eye</content>, <content ID="encounterDiagnosisID6-5">Corneal Opacity</content>, <content ID="encounterDiagnosisID6-6">Conjunctival Concretions</content></td>Outpatient Attender: DMITRY Santacruz MD [facility] 04/28/2020 07:30:00 AM EST - 04/28/2020 08:23:00 [...] SquamousBlepharitis SquamousBlepharitis Squamous [place]OD[place] (Reilly Hebert MD [facility]) Phthisis Bulbi Left Eye Corneal Degeneration Recurrent [...] Squamous Blepharitis Squamous Blepharitis Squamous [place] [address] [facility] [address] 04/26/2020 12:00:00 AM EST eCW1 ([facility]) <td ID="encounterTypeDescriptionID7">1 W coquille Follow-Up</td><td>Dmitry Torres DO</td><td>Reilly Burks MD [facility]</td><td>04/20/2020</td><td>7:26AM</td><td>8:52AM</td><td><content ID="encounterDiagnosisID7-0">Hypotony of Eye</content>, <content ID="encounterDiagnosisID7-1">Corneal Degeneration Recurrent Erosion</content>, <content ID="encounterDiagnosisID7-2">Blepharitis Squamous</content>, <content ID="encounterDiagnosisID7-3">Dry Eye Syndrome Right Eye</content>, <content ID="encounterDiagnosisID7-4">Phthisis Bulbi Left Eye</content>, <content ID="encounterDiagnosisID7-5">Corneal Opacity</content></td>Outpatient Attender: DMITRY Santacruz MD [facility] 04/20/2020 07:26:00 AM EST - 04/20/2020 08:52:00 [...] Degeneration Recurrent Erosion RODDY (Reilly Hebert MD [facility]) Phthisis Bulbi Left Eye Corneal Degeneration Recurrent [...] New Pt., Level 4 PC [address] [place] [address] 04/19/2020 12:00:00 AM EST eCW1 ([facility]) Unknown [address] [facility] [id number] 04/19/2020 12:00:00 AM EST eCW1 ([facility]) Unknown [address] [facility] [address] 04/09/2020 12:00:00 AM EST eCW1 ([facility]) Outpatient<td ID="encounterTypeDescripti onID8">1 Week Follow-Up</td><td>Dmitry Torres DO</td><td>Reilly Burks MD [facility]</td><td>04/08/2020</td><td>7:40AM</td><td>8:50AM</td><td><content ID="encounterDiagnosisID8-0">Hypotony of Eye</content>, <content ID="encounterDiagnosisID8-1">Corneal Degeneration Recurrent Erosion</content>, <content ID="encounterDiagnosisID8-2">Blepharitis Squamous</content>, <content ID="encounterDiagnosisID8-3">Dry Eye Syndrome Right Eye</content>, <content ID="encounterDiagnosisID8-4">Phthisis Bulbi Left Eye</content>, <content ID="encounterDiagnosisID8-5">Corneal Opacity</content></td> Attender: DMITRY Santacruz MD [facility] 04/08/2020 07:40:00 AM EST - 04/08/2020 08:50:00 [...] Degeneration Recurrent Erosion RODDY (Reilly Hebert MD [facility]) Corneal Opacity Phthisis Bulbi Left Eye Corneal [...] Erosion Corneal Degeneration Recurrent Erosion [place] [address] [facility] [address] 04/07/2020 12:00:00 AM EST [facility] ([facility]) <td ID="encounterTypeDescriptionID9">1 W coquille Follow-Up</td><td>Dmitry Torres DO</td><td>Reilly Burks MD [facility]</td><td>04/02/2020</td><td>7:28AM</td><td>8:11AM</td><td><content ID="encounterDiagnosisID9-0">Corneal Degeneration Recurrent Erosion</content>, <content ID="encounterDiagnosisID9-1">Hypotony of Eye</content>, <content ID="encounterDiagnosisID9-2">Blepharitis Squamous</content>, <content ID="encounterDiagnosisID9-3">Dry Eye Syndrome Right Eye</content>, <content ID="encounterDiagnosisID9-4">Phthisis Bulbi Left Eye</content></td>Outpatient Attender: DMITRY Santacruz MD [facility] 04/02/2020 07:28:00 AM EST - 04/02/2020 08:11:00 [...] Degeneration Recurrent Erosion RODDY (Reilly Hebert MD [facility]) Phthisis Bulbi Left Eye Corneal Degeneration Recurrent [...] Physical Therapy 03/25/2020 09:30:00 AM EST [facility] ([facility] ) Outpatient<td ID="encounterTypeDescripti onID10">Rx Refills/Changes</td><td>Dmitry Torres DO</td><td></td><td>03/29/2020</td><td>03/23/2020 4:21PM</td><td>03/23/2020 11:59PM</td><td></td> Attender: DMITRY TORRES DO 020 04:21:00 PM EST - 03/23/2020 11:59:00 PM EST [place] (Reilly Hebert MD [facility]) <td ID="uwgrycjlyGyoqXamsbbcyvmjEU27">1 Week Follow-Up</td><td>Dmitry Torres DO</td><td>Reilly Burks MD [facility]</td><td>03/23/2020</td><td>7:27AM</td><td>8:22AM</td><td><content ID="zclvnzpijPueimzrivVL06-5">Hypotony of Eye</content>, <content ID="lslxjjzrzLooeyfzekWU02-3">Corneal Degeneration Recurrent Erosion</content>, <content ID="wdhkatkaiWstxdisglVP29-8">Blepharitis Squamous</content>, <content ID="bvkfjtzvtBebkxhnaaSQ96-3">Dry Eye Syndrome Right Eye</content>, <content ID="lsiwwpjopSoehfocjtIK18-5">Phthisis Bulbi Left Eye</content></td>Outpatient Attender: DMITRY Santacruz MD [facility] 03/23/2020 07:27:00 AM EST - 03/23/2020 08:22:00 [...] Degeneration Recurrent Erosion RODDY (Reilly Hebert MD [facility]) Phthisis Bulbi Left Eye Corneal Degeneration Recurrent [...] Recurrent Erosion Corneal Degeneration Recurrent Erosion <td ID="mweigsbdoTiguEnqzroeeosrOS85">3d ay followup</td><td>Reilly Burks MD, FACS</td><td>Reilly Burks MD [facility]</td><td>03/16/2020</td><td>8:11AM</td><td>8:54AM</td><td><content ID="wxexpuqwuWkxrycrgxQP75-6">Hypotony of Eye</content>, <content ID="ptaegqgkaVxaiypuavMD08-4">Corneal Degeneration Recurrent Erosion</content>, <content ID="sxycltmrgUenulnxzsOW83-9">Blepharitis Squamous</content>, <content ID="couujwaezByddrvtcrEC04-7">Dry Eye Syndrome Right Eye</content>, <content ID="gwohbekfcZjapjvpoxWL55-1">Phthisis Bulbi Left Eye</content></td>Outpatient Attender: Reilly Hebert MD, FACS Reilly Burks MD [facility] 03/16/2020 08:11:0 0 AM EST - 03/16/2020 [...] Degeneration Recurrent Erosion RODDY (Reilly Hebert MD [facility]) Phthisis Bulbi Left Eye Corneal Degeneration Recurrent [...] Recurrent Erosion Corneal Degeneration Recurrent Erosion <td ID="ugkqdzffiCkkzXdimwetqbogLT20">1 Month Follow-Up</td><td>Dmitry Torres DO</td><td>Reilly Burks MD [facility]</td><td>03/12/2020</td><td>7:47AM</td><td>8:53AM</td><td><content ID="lryvomtybIqxafqpilNI96-9">Hypotony of Eye</content>, <content ID="zsgboxuppZllzwsowmGN38-9">Blepharitis Squamous</content>, <content ID="zpusbhzziMryvcbufwFP81-0">Dry Eye Syndrome Right Eye</content>, <content ID="nixnjufflCbbmmebhzRH17-3">Phthisis Bulbi Left Eye</content>, <content ID="anqbdkfwlNxfdzrhuyVY52-9">Corneal Degeneration Recurrent Erosion</content>< /td>Outpatient Attender: DMITRY Santacruz MD [facility] 03/12/2020 07:47:00 AM EST - 03/12/2020 08:53:00 AM EST Corneal Degeneration Recurrent ErosionPhthisis Bulbi Left EyeCorneal Degeneration Recurrent ErosionPhthisis Bulbi Left EyeCorneal Degeneration Recurrent ErosionPhthisis Bulbi Left EyeCorneal Degeneration Recurrent ErosionPhthisis Bulbi Left Eye Corneal Degeneration Recurrent ErosionPhthisis Bulbi Left EyeCorneal [...] of EyeHypotony of EyeHypotony of EyeHypotony of Eye Hypotony of EyeHypotony of EyeHypotony of EyeHypotony of EyeHypotony of EyeHypotony of EyeHypotony of EyeBlepharitis SquamousBlepharitis SquamousBlepharitis SquamousBlepharitis SquamousBlepharitis SquamousBlepharitis SquamousBlepharitis SquamousBlepharitis SquamousBlepharitis SquamousBlepharitis SquamousBlepharitis SquamousBlepharitis SquamousCorneal Degeneration Recurrent ErosionCorneal Degeneration Recurrent ErosionCorneal Degeneration Recurrent ErosionCorneal Degeneration Recurrent ErosionCorneal Degeneration Recurrent Erosion RODDY (Reilly Hebert MD [facility]) Corneal Degeneration Recurrent Erosion Phthisis Bulbi Left [...] Erosion Corneal Degeneration Recurrent Erosion Unknown [address] [facility] [address] 03/08/2020 12:00:00 AM EST eCW1 ([facility]) Outpatient Attender: Martha Masseyer: Carlos JOHNSTON.BRIGID-[email or web address].BRIGID 03/04/2020 12:00:00 AM EST - 03/04/2020 02:47:53 PM EST [facility] Unknown [address] [facility] [address] 03/04/2020 12:00:00 AM EST eCW1 ([facility]) OFFICE OUTPATIENT VISIT 15 MINUTES Attender: Norris STEWART Physical Therapy 03/01/2020 08:30:00 AM EST [place] ([facility]) Outpatient<td ID="encounterTypeDescripti onID14">6 Week Follow-Up</td><td>Dmitry Torres DO</td><td>Reilly Burks MD [facility]</td><td>02/11/2020</td><td>8:00AM</td><td>9:56AM</td><td><content ID="wwhiapsxdTmftrsvcgXE52-3">Hypotony of Eye</content>, <content ID="oyuijijgbDackupmvnAF86-9">Blepharitis Squamous</content>, <content ID="gkwsjxxaeGqtqkjfhzMW36-3">Dry Eye Syndrome Right Eye</content>, <content ID="xyvlfgnloLofcjajyzVL06-6">Phthisis Bulbi Left Eye</content></td> Attender: DMITRY Santacruz MD [facility] 02/11/2020 08:00:00 AM EDT - 02/11/2020 09:56:00 [...] SquamousBlepharitis SquamousBlepharitis Squamous ROD[place] (Reilly Hebert MD [facility]) Phthisis Bulbi Left Eye Phthisis Bulbi Left [...] Squamous Blepharitis Squamous Outpatient Attender: TJ ALBA CHIEF I DISPATCHER Physical Therapy 09:15:00 AM EDT [facility] ([facility]) Outpatient Attender: Shantal JOHNSTON.BRIGID-SJP.BRIGID 09/2019 12:00:00 AM EDT - 01/27/2020 09:21:45 AM EDT [facility] [address] [facility] [address] 01/22/2020 12:00:00 AM EDT [facility] ([facility]) Outpatient Attender: Shantal CHOE-SJP.BRIGID 12/23 12:00:00 AM EDT - 01/20/2020 11:31:30 AM EDT [facility] [address] [place] [phone] 01/16/2020 12:00:00 AM EDT eCW1 ([facility]) <td ID="qmyqeggidFlcrZgsogbvptyoHW44">6 Week Follow-Up</td><td>Dmitry Torres DO</td><td>Reilly Burks MD [facility]</td><td>01/02/2020</td><td>8:21AM</td><td>9:17AM</td><td><content ID="epxcylevmPztcdsayyNY60-0">Hypotony of Eye</content>, <content ID="rruoiwhwvYiqmznyjcXY01-0">Blepharitis Squamous</content>, <content ID="xsznjnqosNpiyrdggyGH50-5">Phthisis Bulbi Left Eye</content>, <content ID="ymlzefbfbOjcjvcuagDR68-3">Dry Eye Syndrome Right Eye</content></td>Outpatient Attender: DMITRY Santacruz MD [facility] 01/02/2020 08:21:00 AM EDT - 01/02/2020 09:17:00 AM ED T Dry Eye Syndrome Right EyePhthisis Bulbi Left [...] SquamousBlepharitis SquamousBlepharitis Squamous [facility]OD[place] (Reilly Hebert MD [facility]) Dry Eye Syndrome Right Eye Phthisis Bulbi [...] 06/27/2020 11:2 7:00 AM EST completed eCW1 ([facility]) COVID-19 dose #2 given elsewhere Unspecified 06/27/2020 11:2 7:00 AM EST completed eCW1 ([facility]) COVID-19 dose #2 given elsewhere Unspecified 06/27/2020 11:2 7:00 AM EST completed eCW1 ([facility]) COVID-19 dose #2 given elsewhere Unspecified 06/27/2020 11:2 7:00 AM EST completed eCW1 ([facility]) COVID-19 dose #2 given elsewhere Unspecified 06/27/2020 11:2 7:00 AM EST completed eCW1 ([facility]) COVID-19 dose #2 given elsewhere Unspecified 06/27/2020 11:2 7:00 AM EST completed eCW1 ([facility]) COVID-19 dose #2 given elsewhere Unspecified 06/27/2020 11:2 7:00 AM EST completed eCW1 ([facility]) COVID-19 VACCINE Moderna 06/27/2020 12:00:00 AM EST completed [facility]IS Vaccine Series Complete: YESThis Data wa s Submitted to [facility] Via [employer]. COVID-19 dose #1 given elsewhere Unspecified 06/07/2020 11:2 6:00 AM EST completed eCW1 ([facility]) COVID-19 dose #1 given elsewhere Unspecified 06/07/2020 11:2 6:00 AM EST completed eCW1 ([facility]) COVID-19 dose #1 given elsewhere Unspecified 06/07/2020 11:2 6:00 AM EST completed eCW1 ([facility]) COVID-19 dose #1 given elsewhere Unspecified 06/07/2020 11:2 6:00 AM EST completed eCW1 ([facility]) COVID-19 dose #1 given elsewhere Unspecified 06/07/2020 11:2 6:00 AM EST completed eCW1 ([facility]) COVID-19 dose #1 given elsewhere Unspecified 06/07/2020 11:2 6:00 AM EST completed eCW1 ([facility]) COVID-19 dose #1 given elsewhere Unspecified 06/07/2020 11:2 6:00 AM EST completed eCW1 ([facility]) COVID-19 VACCINE Moderna 05/30/2020 12:00:00 AM EST completed [facility]SIIS Vaccine Series Complete: NOThis Data was Submitted to [facility] Via [employer]. influenza, recombinant, quadrIvalent,injectable, prese rvative free 01/22/2020 11:46:00 AM EDT completed eCW1 ([facility]) influenza, recombinant, quadrIvalent,injectable, prese rvative free 01/22/2020 11:46:00 AM EDT completed eCW1 ([facility]) influenza, recombinant, quadrIvalent,injectable, prese rvative free 01/22/2020 11:46:00 AM EDT completed eCW1 ([facility]) influenza, recombinant, quadrIvalent,injectable, prese rvative free 01/22/2020 11:46:00 AM EDT completed eCW1 ([facility]) influenza, recombinant, quadrIvalent,injectable, prese rvative free 01/22/2020 11:46:00 AM EDT completed eCW1 ([facility]) influenza, recombinant, quadrIvalent,injectable, prese rvative free 01/22/2020 11:46:00 AM EDT completed eCW1 ([facility]) influenza, recombinant, quadrIvalent,injectable, prese rvative free 01/22/2020 11:46:00 AM EDT completed eCW1 ([facility]) influenza, recombinant, quadrIvalent,injectable, prese rvative free 01/22/2020 11:46:00 AM EDT completed eCW1 ([facility]) influenza, recombinant, quadrIvalent,injectable, prese rvative free 01/22/2020 11:46:00 AM EDT completed eCW1 ([facility]) influenza, recombinant, quadrIvalent,injectable, prese rvative free 01/22/2020 11:46:00 AM EDT completed eCW1 ([facility]) influenza, recombinant, quadrIvalent,injectable, prese rvative free 01/22/2020 11:46:00 AM EDT completed eCW1 ([facility]) influenza, recombinant, quadrIvalent,injectable, prese rvative free 01/22/2020 11:46:00 AM EDT completed eCW1 ([facility]) influenza, recombinant, quadrIvalent,injectable, prese rvative free 01/22/2020 11:46:00 AM EDT completed eCW1 ([facility]) influenza, recombinant, quadrIvalent,injectable, prese rvative free 01/22/2020 11:46:00 AM EDT completed eCW1 ([facility]) influenza, recombinant, quadrIvalent,injectable, prese rvative free 01/22/2020 11:46:00 AM EDT completed eCW1 ([facility]) influenza, recombinant, quadrIvalent,injectable, prese rvative free 01/22/2020 11:46:00 AM EDT completed eCW1 ([facility]) influenza, recombinant, quadrIvalent,injectable, prese rvative free 01/22/2020 11:46:00 AM EDT completed eCW1 ([facility]) influenza, recombinant, quadrIvalent,injectable, prese rvative free 01/22/2020 11:46:00 AM EDT completed eCW1 ([facility]) influenza, recombinant, quadrIvalent,injectable, prese rvative free 01/22/2020 11:46:00 AM EDT completed eCW1 ([facility]) influenza, recombinant, quadrIvalent,injectable, prese rvative free 01/22/2020 11:46:00 AM EDT completed eCW1 ([facility]) influenza, recombinant, quadrIvalent,injectable, prese rvative free 01/22/2020 11:46:00 AM EDT completed eCW1 ([facility]) influenza, recombinant, quadrIvalent,injectable, prese rvative free 01/22/2020 11:46:00 AM EDT completed eCW1 ([facility]) influenza, recombinant, quadrIvalent,injectable, prese rvative free 01/22/2020 11:46:00 AM EDT completed eCW1 ([facility]) influenza, recombinant, quadrIvalent,injectable, prese rvative free 01/22/2020 11:46:00 AM EDT completed eCW1 ([facility]) influenza, recombinant, quadrIvalent,injectable, prese rvative free 01/22/2020 11:46:00 AM EDT completed eCW1 ([facility]) influenza, recombinant, quadrIvalent,injectable, prese rvative free 01/22/2020 11:46:00 AM EDT completed eCW1 ([facility]) influenza, recombinant, quadrIvalent,injectable, prese rvative free 01/22/2020 11:46:00 AM EDT completed eCW1 ([facility]) influenza, recombinant, quadrIvalent,injectable, prese rvative free 01/22/2020 11:46:00 AM EDT completed eCW1 ([facility]) influenza, recombinant, quadrIvalent,injectable, prese rvative free 01/22/2020 11:46:00 AM EDT completed eCW1 ([facility]) influenza, recombinant, quadrIvalent,injectable, prese rvative free 01/22/2020 11:46:00 AM EDT completed eCW1 ([facility]) influenza, recombinant, quadrIvalent,injectable, prese rvative free 01/22/2020 11:46:00 AM EDT completed eCW1 ([facility]) influenza, recombinant, quadrIvalent,injectable, prese rvative free 01/22/2020 11:46:00 AM EDT completed eCW1 ([facility]) influenza, recombinant, quadrIvalent,injectable, prese rvative free 01/22/2020 11:46:00 AM EDT completed eCW1 ([facility]) influenza, recombinant, quadrIvalent,injectable, prese rvative free 01/22/2020 11:46:00 AM EDT completed eCW1 ([facility]) influenza, recombinant, quadrIvalent,injectable, prese rvative free 01/22/2020 11:46:00 AM EDT completed eCW1 ([facility]) influenza, recombinant, quadrIvalent,injectable, prese rvative free 01/22/2020 11:46:00 AM EDT completed eCW1 ([facility]) influenza, recombinant, quadrIvalent,injectable, prese rvative free 01/22/2020 11:46:00 AM EDT completed eCW1 ([facility]) Medications Medication Brand Name Start Date Product Form Dose Route Admi nistrative Instructions Pharmacy Instructions Status Indications Reaction Description Data Source(s) Spironolactone 25 MG Oral Tablet spironolactone (ALDAC TONE) 25 MG tablet spironolactone (ALDACTONE) 25 MG tablet 01/06/2021 12:00:00 AM EDT 12.5 mg Oral active Take 0.5 tablets (12 .5 mg total) by mouth daily [facility] Digoxin 0.125 MG Oral Tablet digoxin (LANOXIN) 125 MCG tablet digoxin (LANOXIN) 125 MCG tablet 01/06/2021 12:00:00 AM EDT 125 ug Oral act danielle Take 1 tablet (125 mcg total) by mouth daily [facility] 24 HR Diltiazem Hydrochloride 120 MG Ext ended Release Oral Capsule diltiazem (CARDIZEM CD) 120 MG 24 hr capsule diltiazem (CARDIZEM CD) 120 MG 24 hr capsule 01/06/2021 12:00:00 AM EDT active TAKE ONE CAPSULE BY MOUTH EVERY DAY [facility] Levothyroxine Sodium 0.137 MG Oral Table t levothyroxine (SYNTHROID, LEVOTHROID) 137 MCG tablet levothyroxine (SYNTHROID, LEVOTHROID) 137 MCG tablet 0 12/19/2020 12:00:00 AM EDT active TAKE ONE TABLET BY MOUTH EVERY MORNING ON EMPTY STOMACH [facility] cefpodoxime 200 MG Oral Tablet Cefpodoxime Proxetil 20 0 MG Cefpodoxime Proxetil 200 MG 12/15/2020 12:00:00 AM EDT 1.0 {tablet_with_food} suspended Cefpodoxime Proxetil 200 MG eCW1 ([facility]) doxycycline hyclate 100 MG Oral Tablet Doxycycline Hyc late 100 MG Doxycycline Hyclate 100 MG 12/15/2020 12:00:00 AM EDT 1.0 {tablet} suspended Doxycycline Hyclate 100 MG eCW1 ([facility]) cefpodoxime 200 MG Oral Tablet Cefpodoxime Proxetil 20 0 MG Cefpodoxime Proxetil 200 MG 12/15/2020 12:00:00 AM EDT 1.0 {tablet_with_food} active Cefpodoxime Proxetil 200 MG eCW1 ([facility]) doxycycline hyclate 100 MG Oral Tablet doxycycline ( BRA-TABS) 100 MG tablet doxycycline (VIBRA-TABS) 100 MG tablet 12/15/2020 12:00:00 AM EDT aborted 2 (two) times a day [facility] cefpodoxime 200 MG Oral Tablet cefpodoxime (VANTIN) 20 0 MG tablet cefpodoxime (VANTIN) 200 MG tablet 12/15/2020 12:00:00 AM EDT aborted daily [facility] doxycycline hyclate 100 MG Oral Tablet Doxycycline Hyc late 100 MG Doxycycline Hyclate 100 MG 12/15/2020 12:00:00 AM EDT 1.0 {tablet} suspended Doxycycline Hyclate 100 MG eCW1 ([facility]) doxycycline hyclate 100 MG Oral Tablet Doxycycline Hyc late 100 MG Doxycycline Hyclate 100 MG 12/15/2020 12:00:00 AM EDT 1.0 {tablet} suspended Doxycycline Hyclate 100 MG eCW1 ([facility]) doxycycline hyclate 100 MG Oral Tablet Doxycycline Hyc late 100 MG Doxycycline Hyclate 100 MG 12/15/2020 12:00:00 AM EDT 1.0 {tablet} active Doxycycline Hyclate 100 MG eCW1 ([facility]) doxycycline hyclate 100 MG Oral Tablet Doxycycline Hyc late 100 MG Doxycycline Hyclate 100 MG 12/15/2020 12:00:00 AM EDT 1.0 {tablet} suspended Doxycycline Hyclate 100 MG eCW1 ([facility]) doxycycline hyclate 100 MG Oral Tablet Doxycycline Hyc late 100 MG Doxycycline Hyclate 100 MG 12/15/2020 12:00:00 AM EDT 1.0 {tablet} suspended Doxycycline Hyclate 100 MG eCW1 ([facility]) cefpodoxime 200 MG Oral Tablet Cefpodoxime Proxetil 20 0 MG Cefpodoxime Proxetil 200 MG 12/15/2020 12:00:00 AM EDT 1.0 {tablet_with_food} suspended Cefpodoxime Proxetil 200 MG eCW1 ([facility]) doxycycline hyclate 100 MG Oral Tablet Doxycycline Hyc late 100 MG Doxycycline Hyclate 100 MG 12/15/2020 12:00:00 AM EDT 1.0 {tablet} active Doxycycline Hyclate 100 MG eCW1 ([facility]) cefpodoxime 200 MG Oral Tablet Cefpodoxime Proxetil 20 0 MG Cefpodoxime Proxetil 200 MG 12/15/2020 12:00:00 AM EDT 1.0 {tablet_with_food} suspended Cefpodoxime Proxetil 200 MG eCW1 ([facility]) doxycycline hyclate 100 MG Oral Tablet Doxycycline Hyc late 100 MG Doxycycline Hyclate 100 MG 12/15/2020 12:00:00 AM EDT 1.0 {tablet} suspended Doxycycline Hyclate 100 MG eCW1 ([facility]) cefpodoxime 200 MG Oral Tablet Cefpodoxime Proxetil 20 0 MG Cefpodoxime Proxetil 200 MG 12/15/2020 12:00:00 AM EDT 1.0 {tablet_with_food} suspended Cefpodoxime Proxetil 200 MG eCW1 ([facility]) cefpodoxime 200 MG Oral Tablet Cefpodoxime Proxetil 20 0 MG Cefpodoxime Proxetil 200 MG 12/15/2020 12:00:00 AM EDT 1.0 {tablet_with_food} suspended Cefpodoxime Proxetil 200 MG eCW1 ([facility]) cefpodoxime 200 MG Oral Tablet Cefpodoxime Proxetil 20 0 MG Cefpodoxime Proxetil 200 MG 12/15/2020 12:00:00 AM EDT 1.0 {tablet_with_food} suspended Cefpodoxime Proxetil 200 MG eCW1 ([facility]) cefpodoxime 200 MG Oral Tablet Cefpodoxime Proxetil 20 0 MG Cefpodoxime Proxetil 200 MG 12/15/2020 12:00:00 AM EDT 1.0 {tablet_with_food} active Cefpodoxime Proxetil 200 MG eCW1 ([facility]) Levothyroxine Sodium 0.137 MG Oral Tablet Levothyroxin e Sodium 137 MCG Levothyroxine Sodium 137 MCG 11/25/2020 12:00:00 AM EDT active Levothyroxine Sodium 137 MCG eCW1 ([facility]) Levothyroxine Sodium 0.137 MG Oral Tablet Levothyroxin e Sodium 137 MCG Levothyroxine Sodium 137 MCG 11/25/2020 12:00:00 AM EDT active Levothyroxine Sodium 137 MCG eCW1 ([facility]) Levothyroxine Sodium 0.137 MG Oral Tablet Levothyroxin e Sodium 137 MCG Levothyroxine Sodium 137 MCG 11/25/2020 12:00:00 AM EDT active Levothyroxine Sodium 137 MCG eCW1 ([facility]) Levothyroxine Sodium 0.137 MG Oral Tablet Levothyroxin e Sodium 137 MCG Levothyroxine Sodium 137 MCG 11/25/2020 12:00:00 AM EDT active Levothyroxine Sodium 137 MCG eCW1 ([facility]) Levothyroxine Sodium 0.112 MG Oral Table t levothyroxine (SYNTHROID, LEVOTHROID) 112 MCG tablet levothyroxine (SYNTHROID, LEVOTHROID) 112 MCG tablet 0 11/25/2020 12:00:00 AM EDT 137 ug aborted 137 mcg [facility] Levothyroxine Sodium 0.137 MG Oral Tablet Levothyroxin e Sodium 137 MCG Levothyroxine Sodium 137 MCG 11/25/2020 12:00:00 AM EDT active Levothyroxine Sodium 137 MCG eCW1 ([facility]) Levothyroxine Sodium 0.137 MG Oral Tablet Levothyroxin e Sodium 137 MCG Levothyroxine Sodium 137 MCG 11/25/2020 12:00:00 AM EDT active Levothyroxine Sodium 137 MCG eCW1 ([facility]) Levothyroxine Sodium 0.137 MG Oral Tablet Levothyroxin e Sodium 137 MCG Levothyroxine Sodium 137 MCG 11/25/2020 12:00:00 AM EDT active Levothyroxine Sodium 137 MCG eCW1 ([facility]) Levothyroxine Sodium 0.137 MG Oral Tablet Levothyroxin e Sodium 137 MCG Levothyroxine Sodium 137 MCG 11/25/2020 12:00:00 AM EDT active Levothyroxine Sodium 137 MCG eCW1 ([facility]) Levothyroxine Sodium 0.137 MG Oral Tablet Levothyroxin e Sodium 137 MCG Levothyroxine Sodium 137 MCG 11/25/2020 12:00:00 AM EDT active Levothyroxine Sodium 137 MCG eCW1 ([facility]) Levothyroxine Sodium 0.137 MG Oral Tablet Levothyroxin e Sodium 137 MCG Levothyroxine Sodium 137 MCG 11/25/2020 12:00:00 AM EDT active Levothyroxine Sodium 137 MCG eCW1 ([facility]) aminophylline injection 75 mg [id number] 11/24/2020 10:00:00 AM EDT 75 mg Intravenous active Chest pain, unspecified typeAbnormal E K[facility] Chest pain, unspecified type Abnormal EKG 24 HR Diltiazem Hydrochloride 120 MG Ext ended Release Oral Capsule diltiazem (CARDIZEM CD) 120 MG 24 hr capsule diltiazem (CARDIZEM CD) 120 MG 24 hr capsule 11/11/2020 12:00:00 AM EDT 120 mg Oral active Take 1 capsule (120 mg total) by mouth daily [facility] 0.5 ML dulaglutide 3 MG/ML Auto-Injector [Trulicity] Trulici ty 11/09/2020 12:00:00 AM EDT active M EDENT ([facility] ) Bisoprolol Oral Capsule Bisoprolol Oral Capsule 11/09/2020 12:00:00 A M EDT active Bisoprolol RODDY ([facility]) Chlorthalidone 25 MG Oral Tablet Chlorthalidone 25 MG Oral T ablet 11/09/2020 12:00:00 AM EDT 1 active chlortha lidone 25 MG Oral Tablet RODDY ([facility]) Chlorthalidone 25 MG Oral Tablet chlorthalidone (HYGRO TEN) 25 MG tablet chlorthalidone (HYGROTEN) 25 MG tablet 10/14/2020 12:00:00 AM EDT 2 5 mg Oral active Take 1 tablet (25 mg tota l) by mouth daily [facility] Bisoprolol Fumarate 10 MG Oral Tablet bisoprolol (ZEBE TA) 10 MG tablet bisoprolol (ZEBETA) 10 MG tablet 10/14/2020 12:00:00 AM EDT 10 mg Oral active Take 1 tablet (10 mg total) by m outh daily [facility] Digoxin 0.125 MG Oral Tablet digoxin (LANOXIN) 125 MCG tablet digoxin (LANOXIN) 125 MCG tablet 10/11/2020 12:00:00 AM EDT 125 ug Oral act danielle Take 1 tablet (125 mcg total) by mouth daily [facility] Metoprolol Tartrate 100 MG Oral Tablet m etoprolol tartrate (LOPRESSOR) 100 MG tablet metoprolol tartrate (LOPRESSOR) 100 MG tablet 10/07/2020 12: 00:00 AM EDT aborted TAKE ONE AND ONE -HALF TABLETS BY MOUTH TWICE A DAY [facility] Amoxicillin 500 MG / Clavulanate 125 MG Oral Tablet [Augment in] Augmentin 10/05/2020 12:00:00 AM EDT ORAL completed MEDENT ([facility]) Amoxicillin 500 MG / Clavulanate 125 MG Oral Tablet amoxicillin-clavulanate (AUGMENTIN) 500-125 MG per tablet amoxicillin-clavulanate (AUGMENTIN) 500- 125 MG per tablet 10/05/2020 12:00:00 AM EDT 1 {tbl} Oral abort ed Take 1 tablet by mouth 3 (three) times a day [facility] apixaban 5 MG Oral Tablet Apixaban (Eliquis) 5 MG TABS tablet Apixaban (Eliquis) 5 MG TABS tablet 09/21/2020 12:00:00 AM EDT 5 mg Oral active Persistent atrial fibrillation Take 1 tablet (5 mg total) by mouth 2 (t wo) times a day [facility] Persistent atrial fibrillation Cyclosporine 0.5 MG/ML Ophthalmic Suspen leroy [Restasis] Restasis 0.05% Ophthalmic Emulsion Restasis 0.05% Ophthalmic Emulsion 09/15/2020 12:00:00 AM EDT active cyclospo rine 0.5 MG/ML Ophthalmic Suspension [Restasis] RODDY ([facility]) Digoxin 0.125 MG Oral Tablet [Digox] Digox 125 MCG Ora l Tablet Digox 125 MCG Oral Tablet 09/14/2020 12:00:00 AM EDT active digoxin 0.125 MG Oral Tablet [Digox] RODDY ([facility]) Dexamethasone 1 MG/ML / Tobramycin 3 MG/ ML Ophthalmic Suspension Tobramycin- Dexamethasone 0.3-0.1% Ophthalmic Suspension Tobramycin-Dexamethasone 0.3-0.1% Ophthalmic Suspension 09/02/2020 12:00:00 AM EDT active dexamethasone 1 MG/ML / tobramycin 3 MG/ML Ophthalmic Suspension RODDY ([facility]) Sinus Rinse Bottle Kit 08/31/2020 12:00:00 AM EDT active MEDENT ([facility], ) Dexamethasone 1 MG/ML / Tobramycin 3 MG/ML Ophthalmic Suspension [Tobradex] Tobradex 08/31/2020 12:00:00 AM EDT OPHTHALMIC active MEDENT ([facility], ) Sulfamethoxazole 800 MG / Trimethoprim 160 MG Oral Tablet [B actrim] Bactrim DS 08/31/2020 12:00:00 AM EDT ORAL completed MEDENT ([facility], ) Acetaminophen 300 MG / Codeine Phosphate 30 MG Oral Tablet [Tylenol with Codeine] Tylenol With Codeine #3 08/25/2020 12:00:00 AM EDT ORAL completed MEDENT ([facility], ) atorvastatin 80 MG Oral Tablet atorvastatin (LIPITOR) 80 MG tablet atorvastatin (LIPITOR) 80 MG tablet 08/24/2020 12:00:00 AM EDT 80 mg Oral active Take 1 tablet (80 mg total) by mouth daily [facility] Levothyroxine Sodium 0.15 MG Oral Tablet Levothyroxine Sodium 150 MCG Levothyroxine Sodium 150 MCG 08/04/2020 12:00:00 AM EDT active Levothyroxine Sodium 150 MCG eCW1 ([facility]) Levothyroxine Sodium 0.15 MG Oral Tablet Levothyroxine Sodium 150 MCG Levothyroxine Sodium 150 MCG 08/04/2020 12:00:00 AM EDT active Levothyroxine Sodium 150 MCG eCW1 ([facility]) Levothyroxine Sodium 0.15 MG Oral Tablet Levothyroxine Sodium 150 MCG Levothyroxine Sodium 150 MCG 08/04/2020 12:00:00 AM EDT active Levothyroxine Sodium 150 MCG eCW1 ([facility]) Levothyroxine Sodium 0.15 MG Oral Tablet Levothyroxine Sodium 150 MCG Levothyroxine Sodium 150 MCG 08/04/2020 12:00:00 AM EDT active Levothyroxine Sodium 150 MCG eCW1 ([facility]) Levothyroxine Sodium 0.15 MG Oral Tablet levothyroxine (SYNTHROID, LEVOTHROID) 150 MCG tablet levothyroxine (SYNTHROID, LEVOTHROID) 150 MCG tablet 0 08/04/2020 12:00:00 AM EDT active daily [facility] Levothyroxine Sodium 0.15 MG Oral Tablet Levothyroxine Sodium 150 MCG Levothyroxine Sodium 150 MCG 08/04/2020 12:00:00 AM EDT active Levothyroxine Sodium 150 MCG eCW1 ([facility]) Levothyroxine Sodium 0.15 MG Oral Tablet Levothyroxine Sodium 150 MCG Levothyroxine Sodium 150 MCG 08/04/2020 12:00:00 AM EDT active Levothyroxine Sodium 150 MCG eCW1 ([facility]) Levothyroxine Sodium 0.15 MG Oral Tablet Levothyroxine Sodium 150 MCG Levothyroxine Sodium 150 MCG 08/04/2020 12:00:00 AM EDT active eCW1 ([facility]) 0.5 ML dulaglutide 1.5 MG/ML Auto-Injector [Trulicity] [facility] 08/03/2020 12:00:00 AM EDT completed MEDENT ([facility]) Folic Acid 1 MG Oral Tablet folic acid (FOLVITE) 1 MG tablet folic acid (FOLVITE) 1 MG tablet 08/03/2020 12:00:00 AM EDT 1000 ug Oral active Take 1,000 mcg by mouth daily [facility] Methotrexate 2.5 MG Oral Tablet methotrexate 2.5 MG ta blet methotrexate 2.5 MG tablet 08/03/2020 12:00:00 AM EDT active TAKE 4 TABLETS BY MOUTH ONCE A WEEK DIRECTED [facility] OneTouch Ultra test strip [id number] 07/27/2020 12:00:00 AM EDT active TEST FOUR TIMES A DAY NEEDED [facility] Levothyroxine Sodium 0.137 MG Oral Tablet Levothyroxin e Sodium 137 MCG Levothyroxine Sodium 137 MCG 06/16/2020 12:00:00 AM EST active Levothyroxine Sodium 137 MCG eCW1 ([facility]) Levothyroxine Sodium 0.137 MG Oral Tablet Levothyroxin e Sodium 137 MCG Levothyroxine Sodium 137 MCG 06/16/2020 12:00:00 AM EST active Levothyroxine Sodium 137 MCG eCW1 ([facility]) Levothyroxine Sodium 0.137 MG Oral Tablet Levothyroxin e Sodium 137 MCG Levothyroxine Sodium 137 MCG 06/16/2020 12:00:00 AM EST active Levothyroxine Sodium 137 MCG eCW1 ([facility]) Levothyroxine Sodium 0.137 MG Oral Tablet Levothyroxin e Sodium 137 MCG Levothyroxine Sodium 137 MCG 06/16/2020 12:00:00 AM EST active Levothyroxine Sodium 137 MCG eCW1 ([facility]) Losartan Potassium 25 MG Oral Tablet losartan (COZAAR) 25 MG tablet losartan (COZAAR) 25 MG tablet 06/16/2020 12:00:00 AM EST 25 mg Oral active Take 25 mg by mouth daily [facility] Digoxin 0.125 MG Oral Tablet digoxin (LANOXIN) 125 MCG tablet digoxin (LANOXIN) 125 MCG tablet 06/09/2020 12:00:00 AM EST 125 ug Oral abo rted Take 1 tablet (125 mcg total) by mouth daily [facility] Methotrexate 2.5 MG Oral Tablet Methotrexate 2.5 MG Oral Tab let 05/13/2020 12:00:00 AM EST active methotre xate 2.5 MG Oral Tablet RODDY ([facility]) Folic Acid 1 MG Oral Tablet Folic Acid 1 MG Oral Tablet 04/24 12:00:00 AM EST 1 active folic acid 1 MG O ral Tablet RODDY ([facility]) BD Insulin Syringe U/F 31G X 5/16" 1 [place] [facility] [id number] 05/12/2020 12:00:00 AM EST active USE D IRECTED THREE TIMES A DAY MAXIMUM DAILY DOSE 3 [facility] Losartan Potassium 25 MG Oral Tablet Losartan Potassium 12:00:00 AM EST active [facility] ([facility]) Methotrexate 2.5 MG Oral Tablet Methotrexate 05/11/2020 12:00:00 AM EST active [facility] ([facility]) Folic Acid 1 MG Oral Tablet Folic Acid 05/11/2020 12:00:00 AM EST active [facility] ([facility]) Eysuvis Eysuvis 05/11/2020 12:00:00 AM EST OPHTHALMIC c ompleted MEDENT ([facility]) Folic Acid 1 MG Oral Tablet Folic Acid 1 MG 04/30/2020 12:00:00 AM EST 1.0 {tablet} active Folic Acid 1 MG eCW1 ([facility]) Folic Acid 1 MG Oral Tablet Folic Acid 1 MG 04/30/2020 12:00:00 AM EST 1.0 {tablet} active Folic Acid 1 MG eCW1 ([facility]) Folic Acid 1 MG Oral Tablet Folic Acid 1 MG 04/30/2020 12:00:00 AM EST 1.0 {tablet} active Folic Acid 1 MG eCW1 ([facility]) Methotrexate 2.5 MG Oral Tablet Methotrexate Sodium 2. 5 MG Methotrexate Sodium 2.5 MG 04/30/2020 12:00:00 AM EST active Methotrexate Sodium 2.5 MG eCW1 ([facility]) Folic Acid 1 MG Oral Tablet Folic Acid 1 MG 04/30/2020 12:00:00 AM EST 1.0 {tablet} active Folic Acid 1 MG eCW1 ([facility]) Folic Acid 1 MG Oral Tablet Folic Acid 1 MG 04/30/2020 12:00:00 AM EST 1.0 {tablet} active Folic Acid 1 MG eCW1 ([facility]) Folic Acid 1 MG Oral Tablet Folic Acid 1 MG 04/30/2020 12:00:00 AM EST 1.0 {tablet} active Folic Acid 1 MG eCW1 ([facility]) Folic Acid 1 MG Oral Tablet Folic Acid 1 MG 04/30/2020 12:00:00 AM EST 1.0 {tablet} active Folic Acid 1 MG eCW1 ([facility]) Folic Acid 1 MG Oral Tablet Folic Acid 1 MG 04/30/2020 12:00:00 AM EST 1.0 {tablet} active Folic Acid 1 MG eCW1 ([facility]) Methotrexate 2.5 MG Oral Tablet Methotrexate Sodium 2. 5 MG Methotrexate Sodium 2.5 MG 04/30/2020 12:00:00 AM EST active Methotrexate Sodium 2.5 MG eCW1 ([facility]) Methotrexate 2.5 MG Oral Tablet Methotrexate Sodium 2. 5 MG Methotrexate Sodium 2.5 MG 04/30/2020 12:00:00 AM EST active Methotrexate Sodium 2.5 MG eCW1 ([facility]) Methotrexate 2.5 MG Oral Tablet Methotrexate Sodium 2. 5 MG Methotrexate Sodium 2.5 MG 04/30/2020 12:00:00 AM EST active Methotrexate Sodium 2.5 MG eCW1 ([facility]) Folic Acid 1 MG Oral Tablet Folic Acid 1 MG 04/30/2020 12:00:00 AM EST 1.0 {tablet} active Folic Acid 1 MG eCW1 ([facility]) Methotrexate 2.5 MG Oral Tablet Methotrexate Sodium 2. 5 MG Methotrexate Sodium 2.5 MG 04/30/2020 12:00:00 AM EST active Methotrexate Sodium 2.5 MG eCW1 ([facility]) Methotrexate 2.5 MG Oral Tablet Methotrexate Sodium 2. 5 MG Methotrexate Sodium 2.5 MG 04/30/2020 12:00:00 AM EST active Methotrexate Sodium 2.5 MG eCW1 ([facility]) Folic Acid 1 MG Oral Tablet Folic Acid 1 MG 04/30/2020 12:00:00 AM EST 1.0 {tablet} active Folic Acid 1 MG eCW1 ([facility]) Folic Acid 1 MG Oral Tablet Folic Acid 1 MG 04/30/2020 12:00:00 AM EST 1.0 {tablet} active Folic Acid 1 MG eCW1 ([facility]) Folic Acid 1 MG Oral Tablet Folic Acid 1 MG 04/30/2020 12:00:00 AM EST 1.0 {tablet} active Folic Acid 1 MG eCW1 ([facility]) Folic Acid 1 MG Oral Tablet Folic Acid 1 MG 04/30/2020 12:00:00 AM EST 1.0 {tablet} active Folic Acid 1 MG eCW1 ([facility]) Methotrexate 2.5 MG Oral Tablet Methotrexate Sodium 2. 5 MG Methotrexate Sodium 2.5 MG 04/30/2020 12:00:00 AM EST active Methotrexate Sodium 2.5 MG eCW1 ([facility]) Methotrexate 2.5 MG Oral Tablet Methotrexate Sodium 2. 5 MG Methotrexate Sodium 2.5 MG 04/30/2020 12:00:00 AM EST active Methotrexate Sodium 2.5 MG eCW1 ([facility]) Folic Acid 1 MG Oral Tablet Folic Acid 1 MG 04/30/2020 12:00:00 AM EST 1.0 {tablet} active Folic Acid 1 MG eCW1 ([facility]) Methotrexate 2.5 MG Oral Tablet Methotrexate Sodium 2. 5 MG Methotrexate Sodium 2.5 MG 04/30/2020 12:00:00 AM EST active Methotrexate Sodium 2.5 MG eCW1 ([facility]) Methotrexate 2.5 MG Oral Tablet Methotrexate Sodium 2. 5 MG Methotrexate Sodium 2.5 MG 04/30/2020 12:00:00 AM EST active Methotrexate Sodium 2.5 MG eCW1 ([facility]) Methotrexate 2.5 MG Oral Tablet Methotrexate Sodium 2. 5 MG Methotrexate Sodium 2.5 MG 04/30/2020 12:00:00 AM EST active eCW1 ([facility]) Folic Acid 1 MG Oral Tablet Folic Acid 1 MG 04/30/2020 12:00:00 AM EST 1.0 {tablet} active Folic Acid 1 MG eCW1 ([facility]) Methotrexate 2.5 MG Oral Tablet Methotrexate Sodium 2. 5 MG Methotrexate Sodium 2.5 MG 04/30/2020 12:00:00 AM EST active Methotrexate Sodium 2.5 MG eCW1 ([facility]) Methotrexate 2.5 MG Oral Tablet Methotrexate Sodium 2. 5 MG Methotrexate Sodium 2.5 MG 04/30/2020 12:00:00 AM EST active Methotrexate Sodium 2.5 MG eCW1 ([facility]) Folic Acid 1 MG Oral Tablet Folic Acid 1 MG 04/30/2020 12:00:00 AM EST 1.0 {tablet} active Folic Acid 1 MG eCW1 ([facility]) Methotrexate 2.5 MG Oral Tablet Methotrexate Sodium 2. 5 MG Methotrexate Sodium 2.5 MG 04/30/2020 12:00:00 AM EST active Methotrexate Sodium 2.5 MG eCW1 ([facility]) Methotrexate 2.5 MG Oral Tablet Methotrexate Sodium 2. 5 MG Methotrexate Sodium 2.5 MG 04/30/2020 12:00:00 AM EST active Methotrexate Sodium 2.5 MG eCW1 ([facility]) Folic Acid 1 MG Oral Tablet Folic Acid 1 MG 04/30/2020 12:00:00 AM EST 1.0 {tablet} active Folic Acid 1 MG eCW1 ([facility]) Methotrexate 2.5 MG Oral Tablet Methotrexate Sodium 2. 5 MG Methotrexate Sodium 2.5 MG 04/30/2020 12:00:00 AM EST active Methotrexate Sodium 2.5 MG eCW1 ([facility]) Methotrexate 2.5 MG Oral Tablet Methotrexate Sodium 2. 5 MG Methotrexate Sodium 2.5 MG 04/30/2020 12:00:00 AM EST active Methotrexate Sodium 2.5 MG eCW1 ([facility]) Methotrexate 2.5 MG Oral Tablet Methotrexate Sodium 2. 5 MG Methotrexate Sodium 2.5 MG 04/30/2020 12:00:00 AM EST active Methotrexate Sodium 2.5 MG eCW1 ([facility]) Methotrexate 2.5 MG Oral Tablet Methotrexate Sodium 2. 5 MG Methotrexate Sodium 2.5 MG 04/30/2020 12:00:00 AM EST active Methotrexate Sodium 2.5 MG eCW1 ([facility]) Folic Acid 1 MG Oral Tablet Folic Acid 1 MG 04/30/2020 12:00:00 AM EST 1.0 {tablet} active Folic Acid 1 MG eCW1 ([facility]) Methotrexate 2.5 MG Oral Tablet Methotrexate Sodium 2. 5 MG Methotrexate Sodium 2.5 MG 04/30/2020 12:00:00 AM EST active Methotrexate Sodium 2.5 MG eCW1 ([facility]) Folic Acid 1 MG Oral Tablet Folic Acid 1 MG 04/30/2020 12:00:00 AM EST 1.0 {tablet} active Folic Acid 1 MG eCW1 ([facility]) Methotrexate 2.5 MG Oral Tablet Methotrexate Sodium 2. 5 MG Methotrexate Sodium 2.5 MG 04/30/2020 12:00:00 AM EST active Methotrexate Sodium 2.5 MG eCW1 ([facility]) Methotrexate 2.5 MG Oral Tablet Methotrexate Sodium 2. 5 MG Methotrexate Sodium 2.5 MG 04/30/2020 12:00:00 AM EST active Methotrexate Sodium 2.5 MG eCW1 ([facility]) Folic Acid 1 MG Oral Tablet Folic Acid 1 MG 04/30/2020 12:00:00 AM EST 1.0 {tablet} active Folic Acid 1 MG eCW1 ([facility]) Methotrexate 2.5 MG Oral Tablet Methotrexate Sodium 2. 5 MG Methotrexate Sodium 2.5 MG 04/30/2020 12:00:00 AM EST active eCW1 ([facility]) Methotrexate 2.5 MG Oral Tablet Methotrexate Sodium 2. 5 MG Methotrexate Sodium 2.5 MG 04/30/2020 12:00:00 AM EST active Methotrexate Sodium 2.5 MG eCW1 ([facility]) Methotrexate 2.5 MG Oral Tablet Methotrexate Sodium 2. 5 MG Methotrexate Sodium 2.5 MG 04/30/2020 12:00:00 AM EST active Methotrexate Sodium 2.5 MG eCW1 ([facility]) Folic Acid 1 MG Oral Tablet Folic Acid 1 MG 04/30/2020 12:00:00 AM EST 1.0 {tablet} active eCW1 ([facility]) Folic Acid 1 MG Oral Tablet Folic Acid 1 MG 04/30/2020 12:00:00 AM EST 1.0 {tablet} active Folic Acid 1 MG eCW1 ([facility]) Folic Acid 1 MG Oral Tablet Folic Acid 1 MG 04/30/2020 12:00:00 AM EST 1.0 {tablet} active Folic Acid 1 MG eCW1 ([facility]) Folic Acid 1 MG Oral Tablet Folic Acid 1 MG 04/30/2020 12:00:00 AM EST 1.0 {tablet} active eCW1 ([facility]) Folic Acid 1 MG Oral Tablet Folic Acid 1 MG 04/30/2020 12:00:00 AM EST 1.0 {tablet} active Folic Acid 1 MG eCW1 ([facility]) Methotrexate 2.5 MG Oral Tablet Methotrexate Sodium 2. 5 MG Methotrexate Sodium 2.5 MG 04/30/2020 12:00:00 AM EST active Methotrexate Sodium 2.5 MG eCW1 ([facility]) Folic Acid 1 MG Oral Tablet Folic Acid 1 MG 04/30/2020 12:00:00 AM EST 1.0 {tablet} active Folic Acid 1 MG eCW1 ([facility]) Eysuvis 0.25% Ophthalmic Suspension Eysuvis 0.25% Ophthalmic Suspension 04/28/2020 12:00:00 AM EST aborted loteprednol etabonate 2.5 MG/ML Ophthalmic Suspension [Eysuvis] RODDY ([facility]) Losartan Potassium 25 MG Oral Tablet Losartan Potassium 25 M G 04/26/2020 12:00:00 AM EST 1.0 {tablet} active eCW1 ([facility]) Losartan Potassium 25 MG Oral Tablet Losartan Potassium 25 M G 04/26/2020 12:00:00 AM EST 1.0 {tablet} active Lo sartan Potassium 25 MG eCW1 ([facility]) Losartan Potassium 25 MG Oral Tablet Losartan Potassium 25 M G 04/26/2020 12:00:00 AM EST 1.0 {tablet} active Lo sartan Potassium 25 MG eCW1 ([facility]) Losartan Potassium 25 MG Oral Tablet Losartan Potassium 25 M G 04/26/2020 12:00:00 AM EST 1.0 {tablet} active Lo sartan Potassium 25 MG eCW1 ([facility]) Losartan Potassium 25 MG Oral Tablet Losartan Potassium 25 M G 04/26/2020 12:00:00 AM EST 1.0 {tablet} active Lo sartan Potassium 25 MG eCW1 ([facility]) Losartan Potassium 25 MG Oral Tablet Losartan Potassium 25 M G 04/26/2020 12:00:00 AM EST 1.0 {tablet} active Lo sartan Potassium 25 MG eCW1 ([facility]) Levothyroxine Sodium 0.125 MG Oral Tablet Levothyroxin e Sodium 125 MCG Levothyroxine Sodium 125 MCG 04/26/2020 12:00:00 AM EST active Levothyroxine Sodium 125 MCG eCW1 ([facility]) Levothyroxine Sodium 0.125 MG Oral Tablet Levothyroxin e Sodium 125 MCG Levothyroxine Sodium 125 MCG 04/26/2020 12:00:00 AM EST active Levothyroxine Sodium 125 MCG eCW1 ([facility]) Losartan Potassium 25 MG Oral Tablet Losartan Potassium 25 M G 04/26/2020 12:00:00 AM EST 1.0 {tablet} active Lo sartan Potassium 25 MG eCW1 ([facility]) Losartan Potassium 25 MG Oral Tablet Losartan Potassium 25 M G 04/26/2020 12:00:00 AM EST 1.0 {tablet} active Lo sartan Potassium 25 MG eCW1 ([facility]) Levothyroxine Sodium 0.125 MG Oral Tablet Levothyroxin e Sodium 125 MCG Levothyroxine Sodium 125 MCG 04/26/2020 12:00:00 AM EST active Levothyroxine Sodium 125 MCG eCW1 ([facility]) Levothyroxine Sodium 0.125 MG Oral Tablet Levothyroxin e Sodium 125 MCG Levothyroxine Sodium 125 MCG 04/26/2020 12:00:00 AM EST active Levothyroxine Sodium 125 MCG eCW1 ([facility]) Losartan Potassium 25 MG Oral Tablet Losartan Potassium 25 M G 04/26/2020 12:00:00 AM EST 1.0 {tablet} active Lo sartan Potassium 25 MG eCW1 ([facility]) Losartan Potassium 25 MG Oral Tablet Losartan Potassium 25 M G 04/26/2020 12:00:00 AM EST 1.0 {tablet} active Lo sartan Potassium 25 MG eCW1 ([facility]) Losartan Potassium 25 MG Oral Tablet Losartan Potassium 25 M G 04/26/2020 12:00:00 AM EST 1.0 {tablet} active Lo sartan Potassium 25 MG eCW1 ([facility]) Losartan Potassium 25 MG Oral Tablet Losartan Potassium 25 M G 04/26/2020 12:00:00 AM EST 1.0 {tablet} active Lo sartan Potassium 25 MG eCW1 ([facility]) Losartan Potassium 25 MG Oral Tablet Losartan Potassium 25 M G 04/26/2020 12:00:00 AM EST 1.0 {tablet} active Lo sartan Potassium 25 MG eCW1 ([facility]) Losartan Potassium 25 MG Oral Tablet Losartan Potassium 25 M G 04/26/2020 12:00:00 AM EST 1.0 {tablet} active Lo sartan Potassium 25 MG eCW1 ([facility]) Losartan Potassium 25 MG Oral Tablet Losartan Potassium 25 M G 04/26/2020 12:00:00 AM EST 1.0 {tablet} active Lo sartan Potassium 25 MG eCW1 ([facility]) Losartan Potassium 25 MG Oral Tablet Losartan Potassium 25 M G 04/26/2020 12:00:00 AM EST 1.0 {tablet} active Lo sartan Potassium 25 MG eCW1 ([facility]) Losartan Potassium 25 MG Oral Tablet Losartan Potassium 25 M G 04/26/2020 12:00:00 AM EST 1.0 {tablet} active Lo sartan Potassium 25 MG eCW1 ([facility]) Levothyroxine Sodium 0.125 MG Oral Tablet Levothyroxin e Sodium 125 MCG Levothyroxine Sodium 125 MCG 04/26/2020 12:00:00 AM EST active Levothyroxine Sodium 125 MCG eCW1 ([facility]) Losartan Potassium 25 MG Oral Tablet Losartan Potassium 25 M G 04/26/2020 12:00:00 AM EST 1.0 {tablet} active Lo sartan Potassium 25 MG eCW1 ([facility]) Losartan Potassium 25 MG Oral Tablet Losartan Potassium 25 M G 04/26/2020 12:00:00 AM EST 1.0 {tablet} active Lo sartan Potassium 25 MG eCW1 ([facility]) Losartan Potassium 25 MG Oral Tablet Losartan Potassium 25 M G 04/26/2020 12:00:00 AM EST 1.0 {tablet} active Lo sartan Potassium 25 MG eCW1 ([facility]) Losartan Potassium 25 MG Oral Tablet Losartan Potassium 25 M G 04/26/2020 12:00:00 AM EST 1.0 {tablet} active Lo sartan Potassium 25 MG eCW1 ([facility]) Levothyroxine Sodium 0.125 MG Oral Tablet Levothyroxin e Sodium 125 MCG Levothyroxine Sodium 125 MCG 04/26/2020 12:00:00 AM EST active Levothyroxine Sodium 125 MCG eCW1 ([facility]) Losartan Potassium 25 MG Oral Tablet Losartan Potassium 25 M G 04/26/2020 12:00:00 AM EST 1.0 {tablet} active Lo sartan Potassium 25 MG eCW1 ([facility]) Losartan Potassium 25 MG Oral Tablet Losartan Potassium 25 M G 04/26/2020 12:00:00 AM EST 1.0 {tablet} active Lo sartan Potassium 25 MG eCW1 ([facility]) Losartan Potassium 25 MG Oral Tablet Losartan Potassium 25 M G 04/26/2020 12:00:00 AM EST 1.0 {tablet} active Lo sartan Potassium 25 MG eCW1 ([facility]) Levothyroxine Sodium 0.125 MG Oral Tablet Levothyroxin e Sodium 125 MCG Levothyroxine Sodium 125 MCG 04/26/2020 12:00:00 AM EST active Levothyroxine Sodium 125 MCG eCW1 ([facility]) Losartan Potassium 25 MG Oral Tablet Losartan Potassium 25 M G 04/26/2020 12:00:00 AM EST 1.0 {tablet} active eCW1 ([facility]) Losartan Potassium 25 MG Oral Tablet Losartan Potassium 25 M G 04/26/2020 12:00:00 AM EST 1.0 {tablet} active Lo sartan Potassium 25 MG eCW1 ([facility]) besifloxacin 6 MG/ML Ophthalmic Suspensi on [Besivance] Besivance 0.6% Ophthalmic Suspension Besivance 0.6% Ophthalmic Suspension 04/20/2020 12:00:00 AM EST aborted besifloxacin 6 MG/ML Ophthalmic Suspension [Besivance] RODDY ([facility]) doxycycline hyclate 20 MG Oral Tablet Doxycycline Hycl ate 20 MG Oral Tablet Doxycycline Hyclate 20 MG Oral Tablet 04/02/2020 12:00:00 AM EST 1 aborted doxycycline hyclate 20 MG Oral T ablet RODDY ([facility]) Levothyroxine Sodium 0.112 MG Oral Table t Levothyroxine Sodium 112 MCG Oral Tablet Levothyroxine Sodium 112 MCG Oral Tablet 04/02/2020 12:00:00 AM EST 1 active levothyroxine sodium 0.112 MG Oral Tablet RODDY ([facility]) moxifloxacin 5 MG/ML Ophthalmic Solution Moxifloxacin HCl 0.5% Ophthalmic Solution Moxifloxacin HCl 0.5% Ophthalmic Solution 03/29/2020 12:00:00 AM EST aborted moxifloxacin 5 MG/ML Oph thalmic Solution RODDY ([facility]) Erythromycin 0.005 MG/MG Ophthalmic Oint ment Erythromycin 5 MG/GM Ophthalmic Ointment Erythromycin 5 MG/GM Ophthalmic Ointment 03/16/2020 12:00:00 AM EST aborted erythromycin 0.005 MG/MG Ophthalmic Ointment RODDY ([facility]) moxifloxacin 5 MG/ML Ophthalmic Solution Moxifloxacin HCl 0.5% Ophthalmic Solution Moxifloxacin HCl 0.5% Ophthalmic Solution 03/12/2020 12:00:00 AM EST aborted moxifloxacin 5 MG/ML Oph thalmic Solution RODDY ([facility]) Polymyxin B 41531 UNT/ML / Trimethoprim 1 MG/ML Ophthalmic Solution [Polytrim] Polytrim 67451-7.1 UNIT/ML-% Ophthalmic Solution Polytrim 98088-0.1 UNIT/ML-% Ophthalmic Solution 03/12/2020 12:00:00 AM EST aborted polymyxin B 09866 UNT/ML / trimethoprim 1 MG/ML Ophthalmic Solution [Polytrim] RODDY ([facility]) Levothyroxine Sodium 0.112 MG Oral Tablet Levothyroxin e Sodium 112 MCG Levothyroxine Sodium 112 MCG 03/08/2020 12:00:00 AM EST active Levothyroxine Sodium 112 MCG eCW1 ([facility]) Levothyroxine Sodium 0.112 MG Oral Tablet Levothyroxin e Sodium 112 MCG Levothyroxine Sodium 112 MCG 03/08/2020 12:00:00 AM EST active Levothyroxine Sodium 112 MCG eCW1 ([facility]) Levothyroxine Sodium 0.112 MG Oral Tablet Levothyroxin e Sodium 112 MCG Levothyroxine Sodium 112 MCG 03/08/2020 12:00:00 AM EST active Levothyroxine Sodium 112 MCG eCW1 ([facility]) Levothyroxine Sodium 0.112 MG Oral Tablet Levothyroxin e Sodium 112 MCG Levothyroxine Sodium 112 MCG 03/08/2020 12:00:00 AM EST active Levothyroxine Sodium 112 MCG eCW1 ([facility]) Levothyroxine Sodium 0.112 MG Oral Tablet Levothyroxin e Sodium 112 MCG Levothyroxine Sodium 112 MCG 03/08/2020 12:00:00 AM EST active Levothyroxine Sodium 112 MCG eCW1 ([facility]) apixaban 5 MG Oral Tablet Apixaban (ELIQUIS) 5 MG TABS tablet Apixaban (ELIQUIS) 5 MG TABS tablet 03/04/2020 12:00:00 AM EST 5 mg Oral active Persistent atrial fibrillation Take 1 tablet (5 mg total) by mouth 2 (t wo) times a day [facility] Persistent atrial fibrillation Metoprolol Tartrate 100 MG Oral Tablet m etoprolol tartrate (LOPRESSOR) 100 MG tablet metoprolol tartrate (LOPRESSOR) 100 MG tablet 03/04/2020 12: 00:00 AM EST 150 mg Oral active Persistent atrial fibrillation Take 1.5 tablets (150 mg total) by mouth 2 (two) times a day [facility] Persistent atrial fibrillation Dexamethasone 1 MG/ML / Tobramycin 3 MG/ ML Ophthalmic Suspension [Tobradex] TobraDex 0.3-0.1% Ophthalmic Suspension TobraDex 0.3-0.1% Ophthalmic Suspension 02/11/2020 12:00:00 AM EDT aborted dexamethasone 1 MG/ML / tobramycin 3 MG/ML Ophthalmic Suspension [Tobradex] RODDY ([facility]) Spironolactone 25 MG Oral Tablet spironolactone (ALDAC TONE) 25 MG tablet spironolactone (ALDACTONE) 25 MG tablet 01/12/2020 12:00:00 AM EDT 12.5 mg Oral active Take 0.5 tablets (12 .5 mg total) by mouth daily [facility] Furosemide 20 MG Oral Tablet furosemide (LASIX) 20 MG tablet furosemide (LASIX) 20 MG tablet 12/30/2019 12:00:00 AM EDT 20 mg Oral abort ed Take 1 tablet (20 mg total) by mouth daily [facility] Erythromycin 0.005 MG/MG Ophthalmic Oint ment Erythromycin 5 MG/GM Ophthalmic Ointment Erythromycin 5 MG/GM Ophthalmic Ointment 10/01/2019 12:00:00 AM EDT aborted erythromycin 0.005 MG/MG Ophthalmic Ointment RODDY ([facility]) Dexamethasone 1 MG/ML / Tobramycin 3 MG/ ML Ophthalmic Suspension [Tobradex] TobraDex 0.3-0.1% Ophthalmic Suspension TobraDex 0.3-0.1% Ophthalmic Suspension 10/01/2019 12:00:00 AM EDT aborted dexamethasone 1 MG/ML / tobramycin 3 MG/ML Ophthalmic Suspension [Tobradex] RODDY ([facility]) fluticasone (FLONASE) 50 MCG/ACT nasal spray [id number] 06/03/2019 12:00:00 AM EST aborted as needed [facility] Potassium Chloride 20 MEQ Extended Relea se Oral Tablet Potassium Chloride ER 20 MEQ TBCR Potassium Chloride ER 20 MEQ TBCR 05/26/2019 12:00:00 AM EST 1 {tbl} Oral aborted Take 1 tablet by kimberlee th daily [facility] Levothyroxine 0.137MG Oral Tablet Levothyroxine 0.137MG Oral Tablet 12/03/2018 12:00:00 AM EDT 1 aborted Levothy roxine RODDY ([facility]) Metoprolol Tartrate 100 MG Oral Tablet Metoprolol Tart rate 100MG Oral Tablet Metoprolol Tartrate 100MG Oral Tablet 04/24/2018 12:00:00 AM EST 1 aborted metoprolol tartrate 100 MG Oral Tablet RODDY ([facility]) Chlorthalidone 25 MG Oral Tablet chlorthalidone (HYGRO TEN) 25 MG tablet chlorthalidone (HYGROTEN) 25 MG tablet 25 mg Oral aborted Take 25 mg by mouth daily [facility] Bisoprolol Fumarate 10 MG Oral Tablet bisoprolol (ZEBE TA) 10 MG tablet bisoprolol (ZEBETA) 10 MG tablet 10 mg Oral abort ed Take 10 mg by mouth daily [facility] Bisoprolol Fumarate 10 MG / Hydrochlorot hiazide 6.25 MG Oral Tablet bisoprolol- hydrochlorothiazide (ZIAC) 10-6.25 MG per tablet bisoprolol-hydrochlorothiazide (ZIAC) 10-6.25 MG per tablet 1 {tbl} Oral aborted Take 1 tablet by mouth daily [facility] Levothyroxine Sodium 0.1 MG Oral Tablet levothyroxine (SYNTHROID, LEVOTHROID) 100 MCG tablet levothyroxine (SYNTHROID, LEVOTHROID) 100 MCG tablet 100 ug Oral aborted Take 100 mcg by mout h daily [facility] Hydrochlorothiazide 25 MG Oral Tablet hy drochlorothiazide (HYDRODIURIL) 25 MG tablet hydrochlorothiazide (HYDRODIURIL) 25 MG tablet 25 mg O ral aborted Take 25 mg by mouth daily [facility] Insurance Providers Payer name Policy type / Coverage type Policy ID Covered libertarian ID Covered libertarian's relationship to casarez Policy Casarez Plan Information [employer] () Workers Compensation [id number] 2.16.840.1.502099.3.227.99.991.75340.0 Self D [id number] [employer] () Workers Compensation [id number] 2.16.840.1.749212.3.227.99.991.56540.0 Self D [id number] [employer] () Workers Compensation [id number] 2.16.840.1.260071.3.227.99.991.02699.0 Self D [id number] [employer] () Workers Compensation [id number] 2.16.840.1.125453.3.227.99.991.14384.0 Self D [id number] [employer] () Workers Compensation [id number] 2.16.840.1.043011.3.227.99.991.96270.0 Self D [id number] [employer] () Workers Compensation [id number] Self [id number] [employer] () Workers Compensation [id number] Self [id number] [employer] () Workers Compensation [id number] 2.16.840.1.259956.3.227.99.991.71302.0 Self D [id number] [facility] () Workers Compensation [id number] 2.16.840.1.763029.3.227.99.991.70268.0 Self [id number] [employer] () Workers Compensation [id number].[id number] Self [id number] MVP (pr) Commercial [id number] 2.16840.1.488778.3.227.99.9 91.23113.0 Family Dependent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 63076332 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 06/15/2020 12:00:00 AM EST [facility] ([facility]) 94836903 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 06/15/2020 12:00:00 AM EST [facility] ([facility]) H54.7 [id number] Visual loss Problem 04/19/2020 12:00:[address] eCW1 ([facility]) 371.02 Corneal Opacity Corneal Opacity Problem 04/08/2020 12:0 0:00 AM EST [facility] ([facility]) 371.02 Corneal Opacity Corneal Opacity Problem 04/08/2020 12:0 0:00 AM EST [facility] ([facility]) 371.02 Corneal Opacity Corneal Opacity Problem 04/08/2020 12:0 0:00 AM EST [facility] ([facility]) 371.02 Corneal Opacity Corneal Opacity Problem 04/08/2020 12:0 0:00 AM EST [facility] ([facility]) 371.02 Corneal Opacity Corneal Opacity Problem 04/08/2020 12:0 0:00 AM EST [facility] ([facility]) 371.02 Corneal Opacity Corneal Opacity Problem 04/08/2020 12:0 0:00 AM EST [facility] ([facility]) 371.02 Corneal Opacity Corneal Opacity Problem 04/08/2020 12:0 0:00 AM EST [facility] ([facility]) 371.02 Corneal Opacity Corneal Opacity Problem 04/08/2020 12:0 0:00 AM EST [facility] ([facility]) 371.02 Corneal Opacity Corneal Opacity Problem 04/08/2020 12:0 0:00 AM EST [facility] ([facility]) 93781609 Dry Eye Syndrome Right Eye Dry Eye Syndrome Right Eye Problem 01/02/2020 12:00:00 AM EDT [facility] ([facility]) 55645122 Dry Eye Syndrome Right Eye Dry Eye Syndrome Right Eye Problem 01/02/2020 12:00:00 AM EDT [facility] ([facility]) 00505646 Dry Eye Syndrome Right Eye Dry Eye Syndrome Right Eye Problem 01/02/2020 12:00:00 AM EDT [facility] ([facility]) 40799095 Dry Eye Syndrome Right Eye Dry Eye Syndrome Right Eye Problem 01/02/2020 12:00:00 AM EDT [facility] ([facility]) 37648057 Dry Eye Syndrome Right Eye Dry Eye Syndrome Right Eye Problem 01/02/2020 12:00:00 AM EDT [facility] ([facility]) 48436427 Dry Eye Syndrome Right Eye Dry Eye Syndrome Right Eye Problem 01/02/2020 12:00:00 AM EDT [facility] ([facility]) 83929785 Dry Eye Syndrome Right Eye Dry Eye Syndrome Right Eye Problem 01/02/2020 12:00:00 AM EDT [facility] ([facility]) 17884018 Dry Eye Syndrome Right Eye Dry Eye Syndrome Right Eye Problem 01/02/2020 12:00:00 AM EDT [facility] ([facility]) 63626674 Dry Eye Syndrome Right Eye Dry Eye Syndrome Right Eye Problem 01/02/2020 12:00:00 AM EDT [facility] ([facility]) 13809346 Dry Eye Syndrome Right Eye Dry Eye Syndrome Right Eye Problem 01/02/2020 12:00:00 AM EDT [facility] ([facility]) 89014581 Dry Eye Syndrome Right Eye Dry Eye Syndrome Right Eye Problem 01/02/2020 12:00:00 AM EDT [facility] ([facility]) 57046870 Dry Eye Syndrome Right Eye Dry Eye Syndrome Right Eye Problem 01/02/2020 12:00:00 AM EDT [facility] ([facility]) 13867996 Dry Eye Syndrome Right Eye Dry Eye Syndrome Right Eye Problem 01/02/2020 12:00:00 AM EDT [facility] ([facility]) 84322904 Dry Eye Syndrome Right Eye Dry Eye Syndrome Right Eye Problem 01/02/2020 12:00:00 AM EDT [facility] ([facility]) 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 C orneal Degeneration Recurrent Erosion Problem 04/30/2018 12:00:00 AM EST - 06/15/2020 12:00:00 AM EST [facility] ([facility]) 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 C orneal Degeneration Recurrent Erosion Problem 04/30/2018 12:00:00 AM EST - 06/15/2020 12:00:00 AM EST [facility] ([facility]) 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 C orneal Degeneration Recurrent Erosion Problem 04/30/2018 12:00:00 AM EST - 06/15/2020 12:00:00 AM EST [facility] ([facility]) 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 C orneal Degeneration Recurrent Erosion Problem 04/30/2018 12:00:00 AM EST - 06/15/2020 12:00:00 AM EST [facility] ([facility]) 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 C orneal Degeneration Recurrent Erosion Problem 04/30/2018 12:00:00 AM EST - 06/15/2020 12:00:00 AM EST [facility] ([facility]) 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 C orneal Degeneration Recurrent Erosion Problem 04/30/2018 12:00:00 AM EST - 06/15/2020 12:00:00 AM EST [facility] ([facility]) 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 C orneal Degeneration Recurrent Erosion Problem 04/30/2018 12:00:00 AM EST - 06/15/2020 12:00:00 AM EST [facility] ([facility]) Surgeries/Procedures Procedure Description Date Indications Data Source(s) Electrocardiogram Complete 01/06/2021 12:00:00 AM EDT [facility] ([facility]) OFFICE OUTPATIENT NEW 60 MINUTES 01/06/2021 12:00:00 A M EDT [facility] ([facility]) BLOOD COUNT COMPLETE AUTO&AUTO DIFRNTL WBC COUNT <td>C BC AND DIFFERENTIAL</td><td>Routine</td><td>01/03/2021</td><td></td><td> </td> 01/03/2021 12:00:00 AM EDT [facility] HEPATIC FUNCTION PANEL <td>HEPATIC FUNCTION PANEL</td><td>Routine</td><td>01/03/2021</td><td></td><td> </td> 01/03/2021 12:00:00 AM EDT [facility] BASIC METABOLIC PANEL CALCIUM TOTAL <td>BASIC METABOLI C PANEL</td><td>Routine</td><td>01/03/2021</td><td></td><td> </td> 01/03/2021 12:00:00 AM EDT [facility] OFFICE OUTPATIENT VISIT 10 MINUTES 12/06/2020 12:00:00 AM EDT [facility] ([facility], ) POCT AMB EKG <td>POCT AMB EKG</td><td>Rou gt</td><td>11/11/2020 3:54 PM EDT</td><td> Paroxysmal atrial fibrillation</td><td> </td> 11/11/2020 03:54:00 PM EDT Paroxysmal atrial fibrillation [facility] Paroxysmal atrial fibrillation OFFICE OUTPATIENT VISIT 40 MINUTES 11/09/2020 12:00:00 AM EDT [facility] ([facility]) OFFICE OUTPATIENT VISIT 25 MINUTES 11/09/2020 12:00:00 AM EDT [facility] ([facility]) Endoscopy Nasal Diagnostic 11/08/2020 12:00:00 AM EDT [facility] ([facility]) OFFICE OUTPATIENT VISIT 10 MINUTES 11/08/2020 12:00:00 AM EDT [facility] ([facility]) INJECTION 1 TENDON SHEATH/LIGAMENT APONEUROSIS 021 12:00:00 AM EDT [facility] ([facility]) OFFICE OUTPATIENT VISIT 25 MINUTES 10/22/2020 12:00:00 AM EDT [facility] ([facility]) OFFICE OUTPATIENT VISIT 5 MINUTES 10/18/2020 12:00:00 AM EDT [facility] ([facility]) ECG ROUTINE ECG W/LEAST 12 LDS W/I&R <td>POCT AMB EKG</td><td>Routine</td><td>10/14/2020 3:28 PM EDT</td><td> Paroxysmal atrial fibrillation</td><td> </td> 10/14/2020 03:28:00 PM EDT Paroxysmal atrial fibrillation [facility] Paroxysmal atrial fibrillation ECG ROUTINE ECG W/LEAST 12 LDS W/I&R <td>POCT AMB EKG</td><td>Routine</td><td>10/11/2020 4:42 PM EDT</td><td> Paroxysmal atrial fibrillation</td><td> </td> 10/11/2020 04:42:00 PM EDT Paroxysmal atrial fibrillation [facility] Paroxysmal atrial fibrillation Spirometry 10/07[facility]2020 [facility] OFF[facility] OUTPATIENT VISIT 25 MINUTES 10/07/2020 12:00:00 AM [facility] ECG ROUTINE ECG W/LEAST 12 LDS W/I&R <td>POCT AMB EKG</td><td>Routine</td><td>10/05/2020 12:33 PM EDT</td><td> Paroxysmal atrial fibrillation</td><td> </td> 10/05/2020 12:33:00 PM EDT Paroxysmal atrial fibrillation [facility] Paroxysmal atrial fibrillation Endoscopy Nasal Diagnostic 10/05/2020 12:00:[facility] OFFICE OUTPATIENT VISIT 10 MINUTES 10/05/2020 12:00:00 AM EDT [facility] ([facility], ) HEPATIC FUNCTION PANEL <td>HEPATIC FUNCTION PANEL</td><td>Routine</td><td>09/23/2020</td><td></td><td> </td> 09/23/2020 12:00:00 AM EDT [facility] BASIC METABOLIC PANEL CALCIUM TOTAL <td>BASIC METABOLI C PANEL</td><td>Routine</td><td>09/23/2020</td><td></td><td> </td> 09/23/2020 12:00:00 AM EDT [facility] TROPONIN QUANTITATIVE <td>TROPONIN I</td><td>Routine</td><td>09/22/2020</td><td></td><td> </td> 09/22/2020 12:00:00 AM EDT [facility] TROPONIN QUANTITATIVE <td>TROPONIN I</td><td>Routine</td><td>09/22/2020</td><td></td><td> </td> 09/22/2020 12:00:00 AM EDT [facility] BLOOD COUNT COMPLETE AUTO&AUTO DIFRNTL WBC COUNT <td>C BC AND DIFFERENTIAL</td><td>Routine</td><td>09/22/2020</td><td></td><td> </td> 09/22/2020 12:00:00 AM EDT [facility] DRUG SCREEN QUALITATIVE DIGOXIN <td>DIGOXIN LEVEL</td><td>Routine</td><td>09/22/2020</td><td></td><td> </td> 09/22/2020 12:00:00 AM EDT [facility] HEPATIC FUNCTION PANEL <td>HEPATIC FUNCTION PANEL</td><td>Routine</td><td>09/22/2020</td><td></td><td> </td> 09/22/2020 12:00:00 AM EDT [facility] BASIC METABOLIC PANEL CALCIUM TOTAL <td>BASIC METABOLI C PANEL</td><td>Routine</td><td>09/22/2020</td><td></td><td> </td> 09/22/2020 12:00:00 AM EDT [facility] BASIC METABOLIC PANEL CALCIUM TOTAL <td>BASIC METABOLI C PANEL</td><td>Routine</td><td>09/22/2020</td><td></td><td> </td> 09/22/2020 12:00:00 AM EDT [facility] Surgical / procedural history Gastropar esis 2018, Gallbladder surgery 2007, Injections right eye by Dr. Hoover every 10 weeks, Endoscopic DCR w/ Dr. Webb on 08/25/20 Surgical / procedural history Gastropar esis 2018, Gallbladder surgery 2008, Injections right eye by Dr. Hoover every 10 weeks, Endoscopic DCR w/ Dr. Webb on 08/25/20 09/15/2020 12:00:00 AM EDT [facility] ([facility]) Intermediate Eye Exam Established Patient Intermediate Eye Exam Established Patient 09/14/2020 12:00:00 AM EDT [facility] ([facility]) Intermediate Eye Exam Established Patient Intermediate Eye Exam Established Patient 09/14/2020 12:00:00 AM EDT [facility] ([facility]bert MD [facility]) OFFICE OUTPATIENT VISIT 15 MINUTES 09/09/2020 12:00:00 AM EDT [facility] ([facility], ) Surgical / procedural history [...] 12:00:00 AM EDT R[facility] (Reilly Hebert MD [facility]) Intermediate Eye Exam Established Patient Intermediate Eye Exam Established Patient 09/02/2020 12:00:00 AM EDT [facility] (Murali Hebert MD [facility]) NASAL/SINUS NDSC SURG W/DACRYOCSTORHINOSTOMY 12:00:00 AM EDT [facility], ) OFFICE OUTPATIENT VISIT 15 MINUTES 08/19/2020 12:00:00 AM EDT [facility] ([facility], ) ECG ROUTINE ECG W/LEAST 12 LDS W/I&R <td>POCT AMB EKG</td><td>Routine</td><td>08/17/2020 9:21 AM EDT</td><td> Preoperative cardiovascular examination</td><td> </td> 08/17/2020 09:21:00 AM EDT Preoperative cardiovascular examination [facility] Preoperative cardiovascular examination OFFICE OUTPATIENT VISIT 25 MINUTES 08/03/2020 12:00:00 AM EDT [facility] ([facility]) OFFICE OUTPATIENT VISIT 15 MINUTES 07/19/2020 12:00:00 AM EDT [facility] ([facility]) PROBE LACRIMAL CANALICULI W/WO IRRIGATION PROBING LACR IMAL CANALICULI W OR W/O IRRIGATION (Right Side) 07/16/2020 12:00:00 AM EDT [facility] (Reilly Hebert MD [facility]) Surgical / procedural history Gastropar esis 2018, CHF 2016, Gallbladder surgery 2008, Injections right eye by Dr. Hoover Surgical / procedural history Gastroparesis 2018, CHF 2016, Gallbladder surgery 2008, Injections right eye by Dr. Hoover 07/16/2020 12:00:00 AM EDT [facility] (Murali Hebert MD [facility]) PROBE LACRIMAL CANALICULI W/WO IRRIGATION PROBING LACR IMAL CANALICULI W OR W/O IRRIGATION (RT) 07/16/2020 12:00:00 AM EDT [facility] (Murali Hebert MD [facility]) OFFICE OUTPATIENT VISIT 15 MINUTES 07/12/2020 12:00:00 AM EDT [facility] ([facility]) OFFICE OUTPATIENT VISIT 15 MINUTES 07/09/2020 12:00:00 AM EDT [facility] ([facility]) Intermediate Eye Exam Established Patient Intermediate Eye Exam Established Patient 06/15/2020 12:00:00 AM EST [facility] (Murali Hebert MD [facility]) Surgical / procedural history Gastropar esis 2018, CHF 2016, Gallbladder surgery 2008, Injections right eye by Dr. Hoover every 10 weeks Surgical / procedural history Gastroparesis 2018, CHF 2016, Gallbladder surgery 2008, Injections right eye by Dr. Hoover every 10 weeks 06/15/2020 12:00:00 AM EST [facility] (Reilly Hebert MD [facility]) Intermediate Eye Exam Established Patient Intermediate Eye Exam Established Patient 06/15/2020 12:00:00 AM EST [facility] (Murali Hebert MD [facility]) Intermediate Eye Exam Established Patient Intermediate Eye Exam Established Patient 05/13/2020 12:00:00 AM EST [facility] (Murali Hebert MD [facility]) Surgical / procedural history Gastropar esis 2018, CHF 2016, Gallbladder surgery 2008, Injections right eye by Dr. Hoover every 10 weeks Surgical / procedural history Gastroparesis 2018, CHF 2016, Gallbladder surgery 2008, Injections right eye by Dr. Hoover every 10 weeks 05/13/2020 12:00:00 AM EST RODDY (Reilly Hebert MD [facility]) Intermediate Eye Exam Established Patient Intermediate Eye Exam Established Patient 04/28/2020 12:00:00 AM EST RODDY (Murali Hebert MD [facility]) Intermediate Eye Exam Established Patient Intermediate Eye Exam Established Patient 04/20/2020 12:00:00 AM EST RODDY (Murali Hebert [facility]) Intermediate Eye Exam Established Patient Intermediate Eye Exam Established Patient 04/08/2020 12:00:00 AM EST RODDY (Murali Hebert MD [facility]) Intermediate Eye Exam Established Patient Intermediate Eye Exam Established Patient 04/08/2020 12:00:00 AM EST RODDY (Murali Hebert [facility]) Intermediate Eye Exam Established Patient Intermediate Eye Exam Established Patient 04/02/2020 12:00:00 AM EST RODDY (Murali Hebert MD [facility]) Intermediate Eye Exam Established Patient Intermediate Eye Exam Established Patient 04/02/2020 12:00:00 AM EST RODDY (Murali Hebert MD [facility]) Intermediate Eye Exam Established Patient Intermediate Eye Exam Established Patient 03/23/2020 12:00:00 AM EST RODDY (Murali Hebert MD [facility]) Intermediate Eye Exam Established Patient Intermediate Eye Exam Established Patient 03/23/2020 12:00:00 AM EST RODDY (Murali Hebert MD [facility]) Intermediate Eye Exam Established Patient Intermediate Eye Exam Established Patient 03/16/2020 12:00:00 AM EST RODDY (Murali Hebert MD [facility]) Intermediate Eye Exam Established Patient Intermediate Eye Exam Established Patient 03/12/2020 12:00:00 AM EST RODDY (Murali Hebert MD [facility]) Surgical / procedural history Gallbladd er surgery [...] 12:00:00 AM EST RODDY (Reilly Hebert MD [facility]) Intermediate Eye Exam Established Patient Intermediate Eye Exam Established Patient 03/12/2020 12:00:00 AM EST RODDY (Murali Hebert MD [facility]) INJECTION 1 TENDON SHEATH/LIGAMENT APONEUROSIS 020 12:00:00 AM EST MEDENT ([facility] ) RADEX HAND MINIMUM 3 VIEWS 03/01/2020 12:00:00 AM EST MEDENT ([facility]) Intermediate Eye Exam Established Patient Intermediate Eye Exam Established Patient 02/11/2020 12:00:00 AM EDT RODDY (Murali Hebert MD [facility]) Intermediate Eye Exam Established Patient Intermediate Eye Exam Established Patient 02/11/2020 12:00:00 AM EDT RODDY (Murali eHbert MD [facility]) Diabetic Foot Exam 02/10/2020 12:00:00 AM EDT MEDENT ([facility]) Immunization: Flublok Quadrivalent (18 years & older) 0.5mL IM (Influenza) 01/22/2020 12:00:00 AM EDT eCW1 ([facility]) Intermediate Eye Exam Established Patient Intermediate Eye Exam Established Patient 01/02/2020 12:00:00 AM EDT RODDY (Murali Hebert MD [facility]) Cataract surgery (procedure) History of cataract surgery -b oth eyes 201201/02/2020 12:00:00 AM EDT RODDY (Reilly cornell MD [facility]) Surgical / procedural history Gallbladd er surgery 2007, Removal conjunctival concretion right lower eyelid by Dr. Torres 11/21/2019 Surgical / procedural history Gallbladder surgery 2007, Removal conjunctival concretion right lower eyelid by Dr. Torres 11/21/2019 01/02/2020 12:00:00 AM EDT RODDY (Reilly Hebert MD [facility]) Intermediate Eye Exam Established Patient Intermediate Eye Exam Established Patient 01/02/2020 12:00:00 AM EDT RODDY (Murali Hebert MD [facility]) Results ID Date Data Source [id number] 01/31/2021 11:23:00 AM EDT [facility] CT A NGIO CHESTCLINICAL HISTORY: Paroxysmal [...] result report.Dictated by: CHARLES LEON M.D. on 1 Transcribed by: janis on 01/31/2021 11:51 AMCDS G code: , ,CDS Modifier: , ,cc: Name Value Range Interpretation Code Description Data Kathleen rce(s) Supporting Document(s) ID Date Data Source [id number] 01/03/2021 11:02:00 AM EDT [facility] Name Value Range Interpretation Code Description Data Kathleen rce(s) Supporting Document(s) [facility] This lab was ordered by RONAN maxwell nd reported by [facility]. ID Date Data Source Basic Metabolic Profile (BMP) 01/03/2021 12:00:00 AM EDT eCW 1 ([facility]) Name Value Range Interpretation Code Description Data Kathleen rce(s) Supporting Document(s) 282 70-100 GLUCOSE, FASTING eCW1 ([facility]) 22 7-18 BLOOD UREA NITROGEN eCW1 (Critical access hospital) 46.9 >39 GLOMERULAR FILTRATION RATE eCW 1 ([facility]) 1.20 0.55-1.30 CREATININE FOR GFR eCW1 ([facility]) 138 136-145 SODIUM LEVEL eCW1 (Critical access hospital) 4.4 3.5-5.1 POTASSIUM SERUM eCW1 ([facility]) 105 98-107 CHLORIDE LEVEL eCW1 ([facility]) 28 21-32 CARBON DIOXIDE LEVEL eCW1 ([facility]) 9.0 8.8-10.2 CALCIUM LEVEL eCW1 ([facility]) ID Date Data Source CBC with Differential 01/03/2021 12:00:00 AM EDT eCW1 ([facility]) Name Value Range Interpretation Code Description Data Kathleen rce(s) Supporting Document(s) 13.1 12.0-15.5 HEMOGLOBIN eCW1 ([facility]) 12.2 4.0-10.0 WHITE BLOOD COUNT eCW1 ([facility]) 4.31 4.00-5.40 RED BLOOD COUNT eCW1 ([facility]) 30.4 27.0-33.0 MEAN CORPUSCULAR HEMOGLOB IN eCW1 ([facility]) 39.7 36.0-47.0 HEMATOCRIT eCW1 ([facility]) 92.1 80.0-96.0 MEAN CORPUSCULAR VOLUME e CW1 ([facility]) 51.3 36.0-66.0 NEUTROPHILS % eCW1 ([facility]) 14.2 11.5-14.5 RED CELL DISTRIBUTION WID TH eCW1 ([facility]) 33.0 32.0-36.5 MEAN CORPUSCULAR HGB CONC eCW1 ([facility]) 263 150-450 PLATELET COUNT, AUTOMATED eCW1 ([facility]) 36.7 24.0-44.0 LYMPH % eCW1 ([facility]) 8.1 2.0-8.0 MONO % eCW1 ([facility]) 4.5 1.5-5.0 LYMPH # eCW1 ([facility]) 2.8 0.0-3.0 EOS % eCW1 ([facility]) 0.6 0.0-1.0 BASO % eCW1 ([facility]) 6.3 1.5-8.5 NEUTROPHILS # eCW1 ([facility]) 0.3 0.0-0.5 EOS # eCW1 ([facility]) 0.1 0.0-0.2 BASO # eCW1 ([facility]) 1.0 0.0-0.8 MONO # eCW1 ([facility]) ID Date Data Source NT-PRO BNP 01/03/2021 12:00:00 AM EDT eCW1 ([facility]) Name Value Range Interpretation Code Description Data Kathleen rce(s) Supporting Document(s) 1094 <125 NT-PRO BNP eCW1 ([facility]) ID Date Data Source WATSON COVID AG (Point of Care) 01/03/2021 12:00:00 AM EDT eC W1 ([facility]) Name Value Range Interpretation Code Description Data Kathleen rce(s) Supporting Document(s) NEGATIVE NEGATIVE [place] COVID ANTIGEN eCW1 (Critical access hospital) ID Date Data Source LIPID PANEL (CARDIAC RISK) 12/20/2020 12:00:00 AM EDT eCW1 ( [facility]) Name Value Range Interpretation Code Description Data Kathleen rce(s) Supporting Document(s) Triglyceride [Mass/volume] in Serum or Plasma by calculation 238 <150 TRIGLYCERIDES LEVEL eCW1 ([facility]) 132 NON-HDL-C eCW1 ([facility]) Cholesterol in LDL [Mass/volume] in Serum or Plasma by calculation 84 <100 LDL CHOLESTEROL eCW1 ([facility]) Cholesterol in HDL [Moles/volume] in Serum or Plasma 36 >40 HDL CHOLESTEROL eCW1 ([facility]) Cholesterol [Moles/volume] in Serum or Plasma 168 <200 CHOLESTEROL LEVEL eCW1 ([facility]) 4.666 <5 CHOLESTEROL RISK RATIO eCW1 ([facility]) ID Date Data Source [id number] 12/09/2020 07:57:00 PM EDT [facility] Name Value Range Interpretation Code Description Data Kathleen rce(s) Supporting Document(s) SARS coronavirus 2 RNA [Presence] in Res piratory specimen by BOLA with probe detection NEGATIVE [facility] This lab was ordered by [facility] a nd reported by [facility]. ID Date Data Source [id number] 11/20/2020 06:55:55 PM EDT [facility] Name Value Range Interpretation Code Description Data Kathleen rce(s) Supporting Document(s) &PDF [facility] LLWOMg1pBrUQVfGw50/NDFafLJBnq6BySQlcOCa5QJcqPOUoD3LqrKmvWKZFJ54RTSqDBoKSAASHEOZP 0b3 [file] AgICAgICAgICAgICAgICAgICAgICAgICAgICAgICAgICAgICAgICAgICAgICANCiAgICAgICAgICAgIC AgICAgICAgICAgICAgICAgICAgICAgICAgICAgICAg ICAgICAgICAgICAgICAgICAgICAgICAgICAgICAgICAgICAgICAgICAgICAgICAgICAgICAgICANCiAg ICAgICAgICAgICAgICAgICAgICAgICAgICAgICAgICAgICAgICAgICAgICAgICAgICAgICAgICAgICAg ICAgICAgICAgICAgICAgICAgICAgICAgICAgICAgIC AgICAgICANCiAgICAgICAgICAgICAgICAgICAgICAgICAgICAgICAgICAgICAgICAgICAgICAgICAgIC AgICAgICAgICAgICAgICAgICAgICAgICAgICAgICAgICAgICAgICAgICAgICAgICANCiAgICAgICAgIC AgICAgICAgICAgICAgICAgICAgICAgICAgICAgICAg ICAgICAgICAgICAgICAgICAgICAgICAgICAgICAgICAgICAgICAgICAgICAgICAgICAgICAgICAgICAN CiAgICAgICAgICAgICAgICAgICAgICAgICAgICAgICAgICAgICAgICAgICAgICAgICAgICAgICAgICAg ICAgICAgICAgICAgICAgICAgICAgICAgICAgICAgIC AgICAgICAgICANCiAgICAgICAgICAgICAgICAgICAgICAgICAgICAgICAgICAgICAgICAgICAgICAgIC AgICAgICAgICAgICAgICAgICAgICAgICAgICAgICAgICAgICAgICAgICAgICAgICAgICANCiAgICAgIC AgICAgICAgICAgICAgICAgICAgICAgICAgICAgICAg ICAgICAgICAgICAgICAgICAgICAgICAgICAgICAgICAgICAgICAgICAgICAgICAgICAgICAgICAgICAg ICANCiAgICAgICAgICAgICAgICAgICAgICAgICAgICAgICAgICAgICAgICAgICAgICAgICAgICAgICAg ICAgICAgICAgICAgICAgICAgICAgICAgICAgICAgIC AgICAgICAgICAgICANCiAgICAgICAgICAgICAgICAgICAgICAgICAgICAgICAgICAgICAgICAgICAgIC AgICAgICAgICAgICAgICAgICAgICAgICAgICAgICAgICAgICAgICAgICAgICAgICAgICAgICANCjw/eH WaU6xitGBwylG5N8flXg7HDn3QLQ5ux1KrPMVrQJfn ekEhLamQMzPwWSEfWeoBHwn2GTbvRA4DtWHvH8UaF5PnBSavMC8CYFRsJEPvvZSjDQPrPIFfTuV8SSDs CMnzBX3GoMAfEDqpUZAsKRUuHnCyVPMnXU5BELFoD127enLuNc3IKm2VLiNcCK6qls5FMzJpNTJmKhkB Evc0FXwaBF6LgLRiF1YkoIDgl1eZBkSuS2KMOYJjUX OgLb4IZNWrOiUoLOXlMQfnRC1vERRkLIQDiObdupK3ZO0CNC0wjyUwWV2NLsDeVz8qNc0EQeIcD5UhH1 EjTYTkZXENKZpzUL8TWAAuCKC3BEQcMpIaGDYRAsJyX02oMA7EY7Oyx32pBkF3CXXtKhXvVVyhFR45hX tasrBxrJBrvYodUE5SDk9+DQplbmRvYmoNCnhyZWYN OrJbQcPQLjKmTJNvBUYmCCGfAxE5UyEkVo8LKJJpORCmIIOhVxReQPHfHOHlGCcsEJYhCQE7GPP2JBYv PYGoEG8YCsOzCYKxUFb6GSWhJCCvGVJovy5LLQVeCZRbBWI5WOZkHWMjOCSqRVxtRJCcNMBeUFM2ILVw KQPwEJ5ARdTcGFZfBUN8WfXaUZNyORYbfw3BHNXyQZ VeQZutDrZaIRDwVWXhODrxPHCoAWG8LFP3SXGjBFWjWJ0JIqHpEYCkQKH2EXHjJNXoCFQvnq7BOILhEG FbGcK6ZfFrGDBkHAWjCOcrCSSpODL4BfFsTVHeIZGoBK2KMfGpRVYsRZgjKsLwXRVtMYIzou2SDOPuRJ YhQwKxPJBxDESkMKWnYDcqMIFsTDT8ZoBwJENcJLWk TE8FGyFiALNmCWS4IljfVYDbLGXlum8WWSPgPXPoBfq9BGOfQGJkDSTaBQybWFKtTRYqAMn9QRRcHBMz OA8OHdFfDRTtKDNqYlcsIYDsMVLkze5WNWAeUQEvJiS7SADuUPIaXUYcMKnoLJUsJPA5RZA9JLViCIUq XF2WOcFyKZCwMSL4AKRwCNPhYDDxdg0RKFTaWLElFB i3JHOaYJDqIFZyFRryJCXmMUI8RaW0VDNrGXJhMG0RDlXsAVPsQPQ8ZBMyEDRuTROzmq5OXFViYVYeSf Y0OaFmJCNtPFRjAYcaEFRjDSC9FYEnGLDsZGCqSK5LPsDaXWGrHQW9CrydMLFlUAEiiv8KWAWhHYFyVw v0MOPtIUQwUEDjPXjpPMKwZXP0MmR2ZVFiWNDsGG1I QlEqOWJnZWc1XgKwXXRnELVhad9ERCJjDGVjAqtkMjVhPNIgNNDkOBbuNZNsOLT0ZgWxYPJvMNEhQM6F XtYmHMStPTb3HMNyGFUzYJHmta4RoPHayHhzky2HGAgBHv0EeKjyXII3PDbsOg2xtPFrRbCdEGCAWo1D hgHlVKHeTPTVFCkiSKHqRUM9RpYoJHZsRZO7UaOuPP X7GWZwYzRfVDZ0TaNkVEXwIsC6DXYaKLTwY5GoZluvBKHxLNepFDN3FhFdQObiXmFrHBG+ZB5qDNj+Pg 2Iv4ExwaF8fyOdHLdeLEm2Gy8VHQQNC1QRTo== ID Date Data Source [id number] 11/16/2020 08:37:28 AM EDT [facility] Name Value Range Interpretation Code Description Data Kathleen rce(s) Supporting Document(s) FREE THYROXINE @ 1.26 ng/dL (0.76-1.46) [facility] ID Date Data Source [id number] 10/18/2020 07:42:44 AM EDT [facility] Name Value Range Interpretation Code Description Data Kathleen rce(s) Supporting Document(s) &PDF [facility] FDTIGy5vOhSZHtNm39/OPJhtPUCev7NjLOheRMe7YMgpGOTnD0DcsYgqHNNGP56MJDiDOkLDYSHLZDUM 0b3 XoYOEhZgNDmKQ7ME2xLNWzdsIyxvY8qP6oWY3YDSO+Qh0FYV8ey8HkCQn3GUHrm7ZqIQgcXWp7C2LhwY SirwUqMowpeAVWRQNuPRQyO2tvwkq9dVUgSETyZr9DRzBnk2VbIAMgDArYfh3cbY/cNhL+vmT1FnXTCS jhNsNCglWFHFo0xQbFenxvmy/zybsBsbXLjAox48lV n3W/2EiZDsAUmngd3LhK5YHQ7OwnzGqZyuN7v5AR//AWc7wDv91ve+boFD3S3TM5+90GP0nElcO+16QQ uEHyiht/g/2IjL4dlAjSOb/xbHkktjw34lJxLu8Mph6x8/PPn3/VFx6uCjd4fCipxEwWHsdKjBJhtqNA GsrGYkRdbwvVqyAlOu4eGxgrcGivMqhtySuoNcanvl [file] V73oFE6OIfAeRz1QVsOlx5VzKSVaFKzYcXLyRNBqPvZIITQw/5+HxBV++f//women specialist+653aNDZrE4A1PXf+ [file] ICAgICAgICAgICAgICAgICAgICAgICAgICAgICAgICAgICAgICAgICAgICAgICAgICAgICAgICAgICAg PJBtMCVkMZDzRZUaDNHtJX1ZMSNfQWZfNUJiUONnMOZgIMFyTNOtLWOsLRReGSWeSCYcNANbASTpQCVb ICAgICAgICAgICAgICAgICAgICAgICAgICAgICAgIC RuPDGhTLFsMTJbXDUkSFIpJTOoSBStTVXxLP8HVSQyKPKqYMFwLBSlURLvWCZcTTEmXYMbIWMwHNScZW AgICAgICAgICAgICAgICAgICAgICAgICAgICAgICAgICAgICAgICAgICAgICAgICAgICAgICAgICAgIC RxFHHeFEGuYM6FDDYiFGJcPDQoNHXkZNQeJGGzEMPy ICAgICAgICAgICAgICAgICAgICAgICAgICAgICAgICAgICAgICAgICAgICAgICAgICAgICAgICAgICAg ATDkVIMsYTRyRTNmGYWtXMOiJP3IXCCkOFObNPQyPFBdHRFbNXCpSEDfGQNvFWCoXAJaBBWfSDLxYHMn ICAgICAgICAgICAgICAgICAgICAgICAgICAgICAgIC IaUJEgWZVsSSNkSXLyQFJyCWLfBSJxTTXsWHBoAH8CQYUbGUNqPLPrGTEqQXAoCFBfUIQxLKFlAJElTE AgICAgICAgICAgICAgICAgICAgICAgICAgICAgICAgICAgICAgICAgICAgICAgICAgICAgICAgICAgIC UuXFVaBHVvJZJgUT4OLPGtUXObGMSxMXQoQPKpYJTo ICAgICAgICAgICAgICAgICAgICAgICAgICAgICAgICAgICAgICAgICAgICAgICAgICAgICAgICAgICAg XXAaRYSmWTDnERZpSFDrOZLfWYDyRF8WOESaSCWzOQSlFIMzHHYoCWGeZWFpDDMtBGEgVJDpNQTbWSPp ICAgICAgICAgICAgICAgICAgICAgICAgICAgICAgIC OxUVLqFMMwYXWdSNBpOJKkFIPvSSKyPDUlDTXeAEGlIM8LQANwZHVzLXNwEIGeYUTePVCtTUDrOWBuXG AgICAgICAgICAgICAgICAgICAgICAgICAgICAgICAgICAgICAgICAgICAgICAgICAgICAgICAgICAgIC DrCYGvMHFgGYChYTCkKA8OBAFpMECeYIPyKZYcKKZc ICAgICAgICAgICAgICAgICAgICAgICAgICAgICAgICAgICAgICAgICAgICAgICAgICAgICAgICAgICAg DKOaERXiKZGcYBNzLFQbTMRdSJVrZRYpRN9HYT40tFSag4B2FQLxEH3vqhy/Mu7SJBunxtNgbODgUH2T RvQbTL8zqa5HMfJmMW7ueg1YYOjFHyGjH0D5kTQpMX YmUPAUScKqO78wROeoZr83YRspZSMqLxYiGVq9Xs4XGoKjY1qpDTAsAiU0SJKuKzW5ACFjJyA7XZUbGn XjCZxyNZ6Sd6FisMXjZIx+La5OBV0um3JdDYnaXYVwQQ0qit9IFYcLVzTuU1B7vUYzS5S3IVftQm4ZUP KoPLLyIshhJGQAXZzbTZ9NTD6sphO2UQ1HyEZtYJPr UTZdqJBsLRh9S80yzNJlUUjbQR9BIOL+Rusty+Gg0BCBIuYRLxXNKnXdIhFGLJWcGdJ86wbMVzOFOpCFK6 ZCCtJw1FAVDqR8YkraSetLylaxMrMPOdNNIXPR0OHOujjtDarTEfkZjtQG30aCtlWQ1ZEe1KRaPoIG0k le3SnMOyDx6XUQYxKG2MGBPxERBtNGSuARI7KBZxFb PyVUqnYVJuEPSdYRT1YCJwAICmQD2MOeDaCKLcPEzaStqjDJXpJUVnva0DAQKwSZNmFThzMFUgZMAhMJ JxRVblYMLtATCjASs5XIGsRBZiQO1EYyViERHoETKtEMMnYZIhESIqed7HZQSmIEKcVRKhNEXlOKQeYS KeOPduOXEuRDI2AMTlLSLpDKKnLY5NKaMvCSDgBXir ErQuSJHjRPSiqo2AOKRtFUWoYEcwIQGoMESuDUOfVXulFZQfKSD4IIM0OWQvXDEvYM3ZHgKxWWZqLEG4 DPycBXClYAGlhl4ARPRmROZdTVK9OCPyYDIyUHCzHAvtEBPoMBPxAvG4BBTdPNMrDC7BFoEtKONuGAVt UdxkBSUtEEUysr1PKSKmYQHhZiEwKIChSTYaVWIoZQ rvSTMaDJKyPhF1XZCjJOMiEV5KNuKpMMJbVPN9OfAwNMHmOGLbrd8KRNHaANYiAhn4DgVhBFQuKAYdXG ekVTNwTUKyJLOiWUEpKAKmOM0LUiMjICSfSBQ2JOwmRTXxBCSphn7FTMAvBWHgFBObDDMwAGKnHETpJW zpFIGkUHD9JeG2AOEeWTSwUN7ZCrJcHAYdPRU2TkNm AXAlCZIwey8JHFUtZZPpNRleOtVxRCCnAWAsYKzsZIAoTMS2MaWkRBCcIDDrDQ4VAbDlVWIaTGG1Zsyo UCUpNDBccs1DDSBfLKBrWjg3DPJiPGPeNLRgDFthFBAdGKO9HJZ6DMJbVJTdFS4QTsMcWLKsOSu9CuQc KPDzPXGguu5TMANsDUMzFALvRUQvSAIjUMPpYFz8zn LroFArXHx8PP3NI3NrxiVhWoOKPx2Xp862GYZvUTSxTu4QR3tlGg1vXQPlKOLYSb5NQJn9ZPOzUmH3Wm EjGfV9FEcwQrCaEbFlSwo6O4EuZRQ7Ebh+BHbjO9VgKfQvIKW4AdIjXQAvADK9PIKjKKc1RrH6KfU7Wo 5cUHXHId3+FSczhZNdpAfpWYNHSkU9NtFzXEftBNUYMw2Y ID Date Data Source [id number] 10/08/2020 12:36:00 AM EDT [facility] Name Value Range Interpretation Code Description Data Kathleen rce(s) Supporting Document(s) SARS coronavirus 2 RNA [Presence] in Res piratory specimen by BOLA with probe detection NEGATIVE [facility] This lab was ordered by [facility] a nd reported by [facility]. ID Date Data Source [id number] 10/07/2020 08:50:00 AM EDT MEDENT ([facility], ) Name Value Range Interpretation Code Description Data Kathleen rce(s) Supporting Document(s) PDFReport Laboratory test result MEDENT ([facility]) FVC-Pred 2.30 L MEDENT ([facility]) FVC-Pre 1.83 L MEDENT ([facility]) FVC-%Pred-Pre 79 L MEDENT ([facility]) FVC-LLN 1.71 L MEDENT ([facility]) Fev1-Pred 1.72 L MEDENT ([facility], ) Fev1-Pre 1.29 L MEDENT ([facility]) Fev1-%Pred-Pre 75 L MEDENT ([facility]) Fev1-LLN 1.22 L MEDENT ([facility]) Fev6-Pred 2.18 L MEDENT ([facility]) Fev6-%Pred-Pre 83 L MEDENT ([facility]) Fev6-Pre 1.83 L MEDENT ([facility]) Ezw3wci-Jxod 75 % MEDENT ([facility]) Fev6-LLN 1.60 L MEDENT ([facility]) Qjd0gpi-%Pred-Pre 93 % MEDENT ([facility]) Jau5umv-Huf 70 % MEDENT ([facility]) Byb2xvm-VFH 65 % MEDENT ([facility]) Cqn9jko-Vvdx 95 % MEDENT ([facility]) Bjv1ywg-%Pred-Pre 105 % MEDENT ([facility]) Atu9abm-Exh 100 % MEDENT ([facility]) FEFMax-Pred 4.67 L/E/sec MEDENT ([facility]) FEFMax-Pre 3.04 L/E/sec MEDENT ([facility]) FEFMax-%Pred-Pre 65 L/E/sec MEDENT ([facility]) FEFMax-LLN 3.21 L/E/sec MEDENT ([facility]) Qry7668-Uzdf 1.48 L/E/sec MEDENT ([facility]) Knu4151-%Pred-Pre 62 L/E/sec MEDENT ([facility]) Xut9297-UZF 0.43 L/E/sec MEDENT ([facility]) Dlx8621-Sif 0.93 L/E/sec MEDENT ([facility]) ExpTime-Pre 4.86 sec MEDENT ([facility], ) Hyf0rxo0-Adhk 79 % MEDENT ([facility]) Qag8wuy4-%Pred-Pre 89 % MEDENT ([facility]) Fbm0xtz9-Hqe 70 % MEDENT ([facility]) Vcg6kwf4-MKR 70 % MEDENT ([facility]) ID Date Data Source [id number] 09/22/2020 09:14:00 PM EDT [facility] Name Value Range Interpretation Code Description Data Kathleen rce(s) Supporting Document(s) SARS coronavirus 2 RNA [Presence] in Res piratory specimen by BOLA with probe detection NEGATIVE [facility] This lab was ordered by [facility] a nd reported by [facility]. ID Date Data Source [id number] 08/31/2020 11:46:00 AM EDT MEDENT ([facility], ) Name Value Range Interpretation Code Description Data Kathleen rce(s) Supporting Document(s) Bacteria identified in Nose by Aerobe culture Laboratory test re sult Normal (applies to non-numeric results) MEDENT ([facility], ) <content>FULL REPORT IN LAB NOTES (eCW [...] CSLI standards.</content>
<content></content> ID Date Data Source [id number] 08/25/2020 12:58:00 PM EDT [facility]) Name Value Range Interpretation Code Description Data Kathleen rce(s) Supporting Document(s) Glucose [Mass/volume] in Capillary blood by Glucometer 145 mg/dL 83-110 Above high normal [facility] ([facility]) ID Date Data Source [id number] 08/25/2020 10:52:00 AM EDT [facility] ([facility]) Name Value Range Interpretation Code Description Data Kathleen rce(s) Supporting Document(s) Glucose [Mass/volume] in Capillary blood by Glucometer 192 mg/dL 83-110 Above high normal [facility] ([facility]) ID Date Data Source [id number] 08/20/2020 11:05:00 AM EDT [facility] Name Value Range Interpretation Code Description Data Kathleen rce(s) Supporting Document(s) SARS-CoV-2 (COVID-19) RNA [Presence] in Respiratory specimen by BOLA with probe detection Not Detected [facility] This lab was ordered by [facility] and reported by [email or web address]. ID Date Data Source [id number] 08/17/2020 11:32:09 PM EDT [facility] Name Value Range Interpretation Code Description Data Kathleen rce(s) Supporting Document(s) DIGOXIN 2.4 ng/mL (0.8-2.0) [facility] RESULT(S) CALLED TO AND READ BACK GARRISON FLETCHER AT [phone] [place] [id number] AT [id number] [place] [id number]. ID Date Data Source [id number] 08/03/2020 02:30:00 PM EDT MED[facility] ([facility]) Name Value Range Interpretation Code Description Data Kathleen rce(s) Supporting Document(s) Hemoglobin A1c/Hemoglobin.total in Blood 8.4 [facility]) Glucose [Mass/volume] in Serum or Plasma 113 [facility] ([facility]) ID Date Data Source ERYTHROCYTE SEDIMENTATION RATE 06/28/2020 12:00:00 AM EST eC W1 ([facility]) Name Value Range Interpretation Code Description Data Kathleen rce(s) Supporting Document(s) 12 0-30 ERYTHROCYTE SEDIMENTATION RATE eCW1 ([facility]) ID Date Data Source URIC ACID 06/28/2020 12:00:00 AM EST eCW1 ([facility]) Name Value Range Interpretation Code Description Data Kathleen rce(s) Supporting Document(s) 8.4 2.6-6.0 URIC ACID eCW1 ([facility]) ID Date Data Source C REACTIVE PROTEIN QUANTITATIV (At [facility]) 06/28/2020 12:00 :00 AM EST eCW1 ([facility]) Name Value Range Interpretation Code Description Data Kathleen rce(s) Supporting Document(s) < 0.30 0.00-0.30 C REACTIVE PROTEIN QUANTI TATIV eCW1 ([facility]) ID Date Data Source Comprehensive Metabolic Profile (CMP) 06/28/2020 12:00:00 AM EST eCW1 ([facility]) Name Value Range Interpretation Code Description Data Kathleen rce(s) Supporting Document(s) 120 70-100 GLUCOSE, FASTING eCW1 ([facility]) 1.68 0.55-1.30 CREATININE FOR GFR eCW1 ([facility]) 35 7-18 BLOOD UREA NITROGEN eCW1 ([facility] hospital) 31.9 >39 GLOMERULAR FILTRATION RATE eCW 1 ([facility]) 138 136-145 SODIUM LEVEL eCW1 (Critical access hospital) 107 98-107 CHLORIDE LEVEL eCW1 ([facility]) 5.7 3.5-5.1 POTASSIUM SERUM eCW1 ([facility]) 28 21-32 CARBON DIOXIDE LEVEL eCW1 ([facility]) 9.1 8.8-10.2 CALCIUM LEVEL eCW1 ([facility]) 48 12-78 ALT/SGPT eCW1 ([facility]) 120 45-117 ALKALINE PHOSPHATASE eCW1 ([facility]) 21 7-37 AST/SGOT eCW1 ([facility]) 3.6 3.2-5.2 ALBUMIN eCW1 ([facility]) 5.9 6.4-8.2 TOTAL PROTEIN eCW1 ([facility]) 0.7 0.2-1.0 BILIRUBIN,TOTAL eCW1 ([facility]) 1.6 1.2-2.2 ALBUMIN/GLOBULIN RATIO eCW1 ([facility]) ID Date Data Source [id number] 06/15/2020 08:35:00 AM EST [facility] 396 umol/L. Performed at: RN - [facility] [address] [id number] [employer] Clerk: Saira Barreto MD, Phone: [phone] ID Date Data Source [id number] 05/11/2020 03:24:00 PM EST [facility] ([facility]) Name Value Range Interpretation Code Description Data Kathleen rce(s) Supporting Document(s) Hemoglobin A1c/Hemoglobin.total in Blood 7.7 [facility] ([facility]) Glucose [Mass/volume] in Serum or Plasma 252 [facility] ([facility]) ID Date Data Source [id number] 05/03/2020 01:33:00 PM EST [facility] Name Value Range Interpretation Code Description Data Kathleen rce(s) Supporting Document(s) SARS-CoV-2 (COVID 19) NEGATIVE - SARS-CoV-2 (COVID19) [facility] This lab was ordered by [facility] a nd reported by [facility]. ID Date Data Source TOTAL PROTEIN,RANDOM URINE 04/20/2020 12:00:00 AM EST eCW1 ( [facility]) Name Value Range Interpretation Code Description Data Kathleen rce(s) Supporting Document(s) 36.4 0.0-12.0 TOTAL PROTEIN,RANDOM URIN E eCW1 ([facility]) ID Date Data Source CREATININE,RANDOM URINE 04/20/2020 12:00:00 AM EST eCW1 ([facility]) Name Value Range Interpretation Code Description Data Kathleen rce(s) Supporting Document(s) 134.0 CREATININE,RANDOM URINE eCW1 ( [facility]) ID Date Data Source [id number] 02/10/2020 09:35:00 AM EDT MEDENT ([facility]) Name Value Range Interpretation Code Description Data Kathleen rce(s) Supporting Document(s) Hemoglobin A1c/Hemoglobin.total in Blood 7.7 MEDENT ([facility]) Glucose [Mass/volume] in Serum or Plasma 188 MEDENT ([facility]) Procedure Social History Code Duration Value Status Description Data Source(s ) Smoking 01/27/2021 12:00:00 AM EDT Never Smoker completed Never S moker eCW1 ([facility]) Smoking 01/27/2021 12:00:00 AM EDT Never Smoker completed Never S moker eCW1 ([facility]) Alcohol intake 01/19/2021 12:00:00 AM EDT Ex-drinker (finding) comp leted Ex- drinker (finding) [facility] Smoking 01/12/2021 09:53:30 AM EDT Never smoked tobacco (findi ng) completed Never smoked tobacco (finding) RODDY ([facility]) Smoking 01/03/2021 12:00:00 AM EDT Never Smoker completed Never S moker eCW1 ([facility]) Smoking 01/03/2021 12:00:00 AM EDT Never Smoker completed Never S moker eCW1 ([facility]) Smoking 01/03/2021 12:00:00 AM EDT Never Smoker completed Never S moker eCW1 ([facility]) Smoking 01/03/2021 12:00:00 AM EDT Never Smoker completed Never S moker eCW1 ([facility]) Smoking 12/27/2020 02:27:33 PM EDT Never smoked tobacco (findi ng) completed Never smoked tobacco (finding) [facility]DY ([facility]) Smoking 12/20/2020 12:00:00 AM EDT Never Smoker completed Never S moker eCW1 ([facility]) Smoking 12/19/2020 08:42:14 PM EDT Never smoked tobacco (findi ng) completed Never smoked tobacco (finding) [facility]DY ([facility]) Smoking 12/02/2020 07:09:08 AM EDT Never smoked tobacco (findi ng) completed Never smoked tobacco (finding) [facility] ([facility]) Smoking 11/09/2020 12:00:00 AM EDT Patient has never smoked co mpleted Patient has never smoked MEDENT ([facility]) Smoking 10/22/2020 12:00:00 AM EDT Never Smoker completed Never S moker eCW1 ([facility]) Smoking 10/22/2020 12:00:00 AM EDT Never Smoker completed Never S moker eCW1 ([facility]) Smoking 10/22/2020 12:00:00 AM EDT Never Smoker completed Never S moker eCW1 ([facility]) Smoking 10/22/2020 12:00:00 AM EDT Never Smoker completed Never S moker eCW1 ([facility]) Smoking 10/22/2020 12:00:00 AM EDT Never Smoker completed Never S moker eCW1 ([facility]) Alcohol intake 10/14/2020 12:00:00 AM EDT Ex-drinker (finding) comp leted Ex- drinker (finding) [facility] Alcohol intake 10/11/2020 12:00:00 AM EDT Ex-drinker (finding) comp leted Ex- drinker (finding) [facility] Smoking 10/07/2020 12:00:00 AM EDT Patient has never smoked co mpleted Patient has never smoked MEDENT ([facility], ) Smoking 10/04/2020 12:00:00 AM EDT Never Smoker completed Never S moker eCW1 ([facility]) Smoking 09/16/2020 09:25:11 AM EDT Never smoked tobacco (findi ng) completed Never smoked tobacco (finding) [facility] ([facility]) Smoking 08/19/2020 12:00:00 AM EDT Never Smoker completed Never S moker eCW1 ([facility]) Smoking 08/19/2020 12:00:00 AM EDT Never Smoker completed Never S moker eCW1 ([facility]) Smoking 08/19/2020 12:00:00 AM EDT Never Smoker completed Never S moker eCW1 ([facility]) Smoking 08/19/2020 12:00:00 AM EDT Never Smoker completed Never S moker eCW1 ([facility]) Alcohol intake 08/17/2020 12:00:00 AM EDT Ex-drinker (finding) comp leted Ex- drinker (finding) [facility] Smoking 07/16/2020 08:12:21 AM EDT Never smoked tobacco (findi ng) completed Never smoked tobacco (finding) [facility] ([facility]) Smoking 06/28/2020 12:00:00 AM EST Never Smoker completed Never S moker eCW1 ([facility]) Smoking 06/28/2020 12:00:00 AM EST Never Smoker completed Never S moker eCW1 ([facility]) Smoking 06/28/2020 12:00:00 AM EST Never Smoker completed Never S moker eCW1 ([facility]) Smoking 06/28/2020 12:00:00 AM EST Never Smoker completed Never S moker eCW1 ([facility]) Smoking 06/28/2020 12:00:00 AM EST Never Smoker completed Never S moker eCW1 ([facility]) Smoking 06/15/2020 08:15:52 AM EST Never smoked tobacco (findi ng) completed Never smoked tobacco (finding) [facility] ([facility]) Smoking 05/24/2020 12:00:00 AM EST Never Smoker completed Never S moker eCW1 ([facility]) Smoking 05/24/2020 12:00:00 AM EST Never Smoker completed Never S moker eCW1 ([facility]) Smoking 05/24/2020 12:00:00 AM EST Never Smoker completed Never S moker eCW1 ([facility]) Smoking 04/30/2020 12:00:00 AM EST Never Smoker completed Never S moker eCW1 ([facility]) Smoking 04/30/2020 12:00:00 AM EST Never Smoker completed Never S moker eCW1 ([facility]) Smoking 04/30/2020 12:00:00 AM EST Never Smoker completed Never S moker eCW1 ([facility]) Smoking 04/26/2020 12:00:00 AM EST Never Smoker completed Never S moker eCW1 ([facility]) Smoking 04/20/2020 12:38:13 PM EST Never smoked tobacco (findi ng) completed Never smoked tobacco (finding) [facility] ([facility]) Smoking 04/19/2020 12:00:00 AM EST Never Smoker completed Never S moker eCW1 ([facility]) Smoking 04/19/2020 12:00:00 AM EST Never Smoker completed Never S moker eCW1 ([facility]) Smoking 04/08/2020 09:02:29 AM EST Never smoked tobacco (findi ng) completed Never smoked tobacco (finding) [facility] ([facility]) Smoking 04/02/2020 08:12:47 AM EST Never smoked tobacco (findi ng) completed Never smoked tobacco (finding) [facility] ([facility]) Smoking 03/23/2020 08:41:07 AM EST Never smoked tobacco (findi ng) completed Never smoked tobacco (finding) [facility] ([facility]) Smoking 03/12/2020 08:59:34 AM EST Never smoked tobacco (findi ng) completed Never smoked tobacco (finding) [facility] ([facility]) Smoking 02/11/2020 10:00:10 AM EDT Never smoked tobacco (findi ng) completed Never smoked tobacco (finding) [facility] ([facility]) Smoking 01/22/2020 12:00:00 AM EDT Never Smoker completed Never S moker eCW1 ([facility]) Smoking 01/22/2020 12:00:00 AM EDT Never Smoker completed Never S moker eCW1 ([facility]) Smoking 01/22/2020 12:00:00 AM EDT Never Smoker completed Never S moker eCW1 ([facility]) Smoking 01/22/2020 12:00:00 AM EDT Never Smoker completed Never S moker eCW1 ([facility]) Smoking 01/22/2020 12:00:00 AM EDT Never Smoker completed Never S moker eCW1 ([facility]) Smoking 01/22/2020 12:00:00 AM EDT Never Smoker completed Never S moker eCW1 ([facility]) Smoking 01/02/2020 09:15:01 AM EDT Never smoked tobacco (findi ng) completed Never smoked tobacco (finding) [facility] ([facility]) Vital Signs ID Date Data Source UNK Name Value Range Interpretation Code Description Data Source(s) Body weight 176.8 [lb_av] 176.8 [lb_av] eCW1 ([facility]) Body weight 80.2 kg 80.2 kg eCW1 ([facility]) Body height 60.5 [in_i] 60.5 [in_i] eCW1 ([facility]) Body mass index (BMI) [Ratio] 33.96 kg/m2 33.96 kg/m2 eCW1 ([facility]) Heart rate 85 /min 85 /min eCW1 ([facility]) Respiratory rate 18 /min 18 /min eCW1 ([facility]) Body temperature 97.3 [degF] 97.3 [degF] eCW1 ( [facility]) Systolic blood pressure 134 mm[Hg] 134 mm[Hg] e CW1 ([facility]) Diastolic blood pressure 64 mm[Hg] 64 mm[Hg] eCW1 ([facility]) Systolic blood pressure 167 mm[Hg] 167 mm[Hg] [facility] Diastolic blood pressure 90 mm[Hg] 90 mm[Hg] [facility] Heart rate 86 /min 86 /min [facility] Body height 154.9 cm 154.9 cm [facility] Body weight 78.472 kg 78.472 kg [facility] Body mass index (BMI) [Ratio] 32.69 kg/m2 32.69 kg/m2 [facility] Systolic blood pressure 126 mm[Hg] 126 mm[Hg] M EDENT ([facility]) Diastolic blood pressure 92 mm[Hg] 92 mm[Hg] MEDENT ([facility]) Heart rate 77 /min 77 /min MEDENT ([facility] Body weight 176.00 [lb_av] 176.00 [lb_av] MEDEN T ([facility]) Body weight 177 [lb_av] 177 [lb_av] eCW1 ([facility]) Body height 60.5 [in_i] 60.5 [in_i] eCW1 ([facility]) Body mass index (BMI) [Ratio] 34.00 kg/m2 34.00 kg/m2 eCW1 ([facility]) Heart rate 78 /min 78 /min eCW1 ([facility]) Respiratory rate 20 /min 20 /min eCW1 ([facility]) Body temperature 97 [degF] 97 [degF] eCW1 ([facility]) Systolic blood pressure 120 mm[Hg] 120 mm[Hg] e CW1 ([facility]) Diastolic blood pressure 70 mm[Hg] 70 mm[Hg] eCW1 ([facility]) Body weight 177 [lb_av] 177 [lb_av] eCW1 ([facility]) Body height 60.5 [in_i] 60.5 [in_i] eCW1 ([facility]) Body mass index (BMI) [Ratio] 34.00 kg/m2 34.00 kg/m2 eCW1 ([facility]) Heart rate 103 /min 103 /min eCW1 ([facility]) Respiratory rate 18 /min 18 /min eCW1 ([facility]) Body temperature 97.1 [degF] 97.1 [degF] eCW1 ( [facility]) Systolic blood pressure 120 mm[Hg] 120 mm[Hg] e CW1 ([facility]) Diastolic blood pressure 76 mm[Hg] 76 mm[Hg] eCW1 ([facility]) Body height 59 [in_i] 59 [in_i] [facility] ([facility]) 4'11" [place] body weight 100 [lb_av] 100 [lb_av] MEDEN T ([facility]) Body weight 80.741 kg 80.741 kg [facility] ([facility]) Body surface area Derived from formula 1.76 m2 1.76 m2 [facility] ([facility]) Body weight 178.00 [lb_av] 178.00 [lb_av] [facility] Body mass index (BMI) [Ratio] 35.9 kg/m2 35.9 k g/m2 [facility] ([facility]) Systolic blood pressure 136 mm[Hg] 136 mm[Hg] [facility] Diastolic blood pressure 72 mm[Hg] 72 mm[Hg] [facility] Heart rate 84 /min 84 /min [facility] Body height 154.9 cm 154.9 cm [facility] Body weight 81.194 kg 81.194 kg [facility] Body mass index (BMI) [Ratio] 33.82 kg/m2 33.82 kg/m2 [facility] Oxygen saturation in Arterial blood by Pulse oximetry 97 % 97 % [facility] Body weight 177.38 [lb_av] 177.38 [lb_av] MEDEN T ([facility]) Systolic blood pressure 120 mm[Hg] 120 mm[Hg] M EDENT ([facility]) Diastolic blood pressure 65 mm[Hg] 65 mm[Hg] [facility] ([facility]) Heart rate 74 /min 74 /min [facility] ([facility]) Body height 60 [in_i] 60 [in_i] [facility] ([facility]) 5'0" Body mass index (BMI) [Ratio] 34.6 kg/m2 34.6 k g/m2 [facility] ([facility]) Oxygen saturation in Arterial blood by Pulse oximetry 96 % 96 % MEDENT ([facility] ) Body height 59 [in_i] 59 [in_i] MEDENT ([facility], ) 4'11" Body weight 179.00 [lb_av] 179.00 [lb_av] MEDEN T ([facility]) Body weight 81.194 kg 81.194 kg [facility] ([facility]) Body surface area Derived from formula 1.76 m2 1.76 m2 [facility] ([facility]) Body mass index (BMI) [Ratio] 36.1 kg/m2 36.1 k g/m2 [facility] ([facility]) [place] body weight 100 [lb_av] 100 [lb_av] MEDEN T ([facility]) Body weight 178.6 [lb_av] 178.6 [lb_av] eCW1 ([facility]) Body weight 81.0 kg 81.0 kg W1 ([facility]) Body height 60.5 [in_i] 60.5 [in_i] eCW1 ([facility]) Body mass index (BMI) [Ratio] 34.30 kg/m2 34.30 kg/m2 W1 ([facility]) Heart rate 86 /min 86 /min eCW1 ([facility]) Respiratory rate 18 /min 18 /min eCW1 ([facility]) Body temperature 97.3 [degF] 97.3 [degF] eCW1 ( [facility]) Systolic blood pressure 150 mm[Hg] 150 mm[Hg] e CW1 ([facility]) Diastolic blood pressure 78 mm[Hg] 78 mm[Hg] eCW1 ([facility]) Systolic blood pressure 116 mm[Hg] 116 mm[Hg] [facility] Diastolic blood pressure 64 mm[Hg] 64 mm[Hg] [facility] Heart rate 67 /min 67 /min [facility] Oxygen saturation in Arterial blood by Pulse oximetry 98 % 98 % [facility] Body height 154.9 cm 154.9 cm [facility] Body weight 80.287 kg 80.287 kg [facility] Body mass index (BMI) [Ratio] 33.44 kg/m2 33.44 kg/m2 [facility] Systolic blood pressure 120 mm[Hg] 120 mm[Hg] [facility] Diastolic blood pressure 64 mm[Hg] 64 mm[Hg] [facility] Heart rate 83 /min 83 /min [facility] Respiratory rate 12 /min 12 /min [facility] Body height 154.9 cm 154.9 cm [facility] Body weight 81.647 kg 81.647 kg [facility] Body mass index (BMI) [Ratio] 34.01 kg/m2 34.01 kg/m2 [facility] Oxygen saturation in Arterial blood by Pulse oximetry 93 % 93 % [facility] [place] body weight 100 [lb_av] 100 [lb_av] MEDEN T ([facility], ) Body mass index (BMI) [Ratio] 36.1 kg/m2 36.1 k g/m2 [facility] ([facility], ) Oxygen saturation in Arterial blood by Pulse oximetry 98 % 98 % [facility] ([facility]) Body height 59 [in_i] 59 [in_i] [facility] ([facility]) 4'11" Body weight 179.00 [lb_av] 179.00 [lb_av] MEDEN T ([facility], ) Body weight 81.194 kg 81.194 kg [facility] ([facility]) Body surface area Derived from formula 1.76 m2 1.76 m2 [facility] ([facility], ) Systolic blood pressure 128 mm[Hg] 128 mm[Hg] EDENT ([facility], ) Diastolic blood pressure 74 mm[Hg] 74 mm[Hg] [facility] ([facility], ) Heart rate 85 /min 85 /min [facility] ([facility]) Oxygen saturation in Arterial blood by Pulse oximetry 98 % 98 % [facility] ([facility]) Body height 59 [in_i] 59 [in_i] MED[facility] ([facility]) 4'11" Body weight 179.00 [lb_av] 179.00 [lb_av] MEDEN T ([facility]) Body mass index (BMI) [Ratio] 36.1 kg/m2 36.1 k g/m2 [facility] [place] body weight 100 [lb_av] 100 [lb_av] MEDEN T ([facility]) Body weight 81.194 kg 81.194 kg [facility] Body surface area Derived from formula 1.76 m2 1.76 m2 [facility] ([facility]) Body weight 175.00 [lb_av] 175.00 [lb_av] MEDEN T ([facility]) Body mass index (BMI) [Ratio] 35.3 kg/m2 35.3 k g/m2 [facility] [place] body weight 100 [lb_av] 100 [lb_av] MEDEN T ([facility]) Body weight 79.380 kg 79.380 kg [facility] ([facility]) Body surface area Derived from formula 1.74 m2 1.74 m2 [facility] ([facility]) Body height 59 [in_i] 59 [in_i] [facility] 4'11" Body weight 178 [lb_av] 178 [lb_av] eCW1 ([facility]) Body height 60.5 [in_i] 60.5 [in_i] eCW1 ([facility]) Body mass index (BMI) [Ratio] 34.19 kg/m2 34.19 kg/m2 eCW1 ([facility]) Heart rate 91 /min 91 /min eCW1 ([facility]) Respiratory rate 18 /min 18 /min eCW1 ([facility]) Body temperature 96.9 [degF] 96.9 [degF] eCW1 ( [facility]) Systolic blood pressure 120 mm[Hg] 120 mm[Hg] e CW1 ([facility]) Diastolic blood pressure 62 mm[Hg] 62 mm[Hg] eCW1 ([facility]) Systolic blood pressure 136 mm[Hg] 136 mm[Hg] [facility] Diastolic blood pressure 70 mm[Hg] 70 mm[Hg] [facility] Heart rate 70 /min 70 /min [facility] Body height 154.9 cm 154.9 cm [facility] Body weight 80.74 kg 80.74 kg [facility] Body mass index (BMI) [Ratio] 33.63 kg/m2 33.63 kg/m2 [facility] Oxygen saturation in Arterial blood by Pulse oximetry 98 % 98 % [facility] Body height 59 [in_i] 59 [in_i] [facility] ([facility], ) 4'11" Body weight 181.00 [lb_av] 181.00 [lb_av] MEDEN T ([facility]) [place] body weight 100 [lb_av] 100 [lb_av] MEDEN T ([facility]) Body mass index (BMI) [Ratio] 36.6 kg/m2 36.6 k g/m2 [facility] ([facility]) Body weight 82.102 kg 82.102 kg [facility] ([facility]) Body surface area Derived from formula 1.77 m2 1.77 m2 [facility] ([facility]) Body height 59 [in_i] 59 [in_i] [facility] ([facility]) 4'11" Body weight 181.00 [lb_av] 181.00 [lb_av] MEDEN T ([facility]) Body mass index (BMI) [Ratio] 36.6 kg/m2 36.6 k g/m2 [facility] ([facility]) [place] body weight 100 [lb_av] 100 [lb_av] MEDEN T ([facility]) Body weight 82.102 kg 82.102 kg [facility] ([facility]) Body surface area Derived from formula 1.77 m2 1.77 m2 [facility] ([facility]) Body weight 177.8 [lb_av] 177.8 [lb_av] eCW1 ([facility]) Body height 60.5 [in_i] 60.5 [in_i] eCW1 ([facility]) Body mass index (BMI) [Ratio] 34.15 kg/m2 34.15 kg/m2 eCW1 ([facility]) Heart rate 88 /min 88 /min eCW1 ([facility]) Respiratory rate 18 /min 18 /min eCW1 ([facility]) Body temperature 97.4 [degF] 97.4 [degF] eCW1 ( [facility]) Systolic blood pressure 122 mm[Hg] 122 mm[Hg] e CW1 ([facility]) Diastolic blood pressure 68 mm[Hg] 68 mm[Hg] eCW1 ([facility]) Body height 59 [in_i] 59 [in_i] [facility] ([facility]) 4'11" Body weight 181.00 [lb_av] 181.00 [lb_av] MEDEN T ([facility]) Body weight 82.102 kg 82.102 kg [facility] ([facility]) Body surface area Derived from formula 1.77 m2 1.77 m2 [facility] ([facility]) Body mass index (BMI) [Ratio] 36.6 kg/m2 36.6 k g/m2 [facility] ([facility]) [place] body weight 100 [lb_av] 100 [lb_av] MEDEN T ([facility]) Systolic blood pressure 148 mm[Hg] 148 mm[Hg] [facility] Body weight 81.194 kg 81.194 kg [facility] Body mass index (BMI) [Ratio] 33.82 kg/m2 33.82 kg/m2 [facility] Oxygen saturation in Arterial blood by Pulse oximetry 96 % 96 % [facility] Diastolic blood pressure 90 mm[Hg] 90 mm[Hg] [facility] Heart rate 74 /min 74 /min [facility] Body height 154.9 cm 154.9 cm [facility] Diastolic blood pressure 76 mm[Hg] 76 mm[Hg] MEDENT ([facility] ) Heart rate 62 /min 62 /min MEDENT ([facility]) Oxygen saturation in Arterial blood by Pulse oximetry 98 % 98 % MEDENT ([facility]) Body [...] [Ratio] 36.6 kg/m2 36.6 k g/m2 MEDENT ([facility], ) [place] body weight 100 [lb_av] 100 [lb_av] MEDEN T ([facility], ) Body weight 82.102 kg 82.102 kg [facility] ([facility], ) Body surface area Derived from formula 1.77 m2 1.77 m2 [facility] ([facility], ) Body height 59 [in_i] 59 [in_i] MEDENT ([facility], ) 4'11" Body weight 181.00 [lb_av] 181.00 [lb_av] MEDEN T ([facility], ) Systolic blood pressure 163 mm[Hg] 163 mm[Hg] M EDENT ([facility], ) Diastolic blood pressure 63 mm[Hg] 63 mm[Hg] MEDENT ([facility], ) Body height 59 [in_i] 59 [in_i] MEDENT ([facility], ) 4'11" Body weight 181.00 [lb_av] 181.00 [lb_av] MEDEN T ([facility]) Body mass index (BMI) [Ratio] 36.6 kg/m2 36.6 k g/m2 [facility] [place] body weight 100 [lb_av] 100 [lb_av] MEDEN T ([facility]) Body weight 82.102 kg 82.102 kg [facility] ([facility]) Body surface area Derived from formula 1.77 m2 1.77 m2 [facility] Body weight 178.4 [lb_av] 178.4 [lb_av] eCW1 ([facility]) Body weight 80.9 kg 80.9 kg W1 ([facility]) Body height 60.5 [in_i] 60.5 [in_i] eCW1 ([facility]) Body mass index (BMI) [Ratio] 34.26 kg/m2 34.26 kg/m2 eCW1 ([facility]) Heart rate 72 /min 72 /min eCW1 ([facility]) Respiratory rate 18 /min 18 /min eCW1 ([facility]) Body temperature 97.6 [degF] 97.6 [degF] eCW1 ( [facility]) Systolic blood pressure 128 mm[Hg] 128 mm[Hg] e CW1 ([facility]) Diastolic blood pressure 70 mm[Hg] 70 mm[Hg] eCW1 ([facility]) Body weight 177 [lb_av] 177 [lb_av] eCW1 ([facility]) Body height 60.5 [in_i] 60.5 [in_i] eCW1 ([facility]) Body mass index (BMI) [Ratio] 34.00 kg/m2 34.00 kg/m2 eCW1 ([facility]) Heart rate 72 /min 72 /min eCW1 ([facility]) Respiratory rate 18 /min 18 /min eCW1 ([facility]) Body temperature 96.6 [degF] 96.6 [degF] eCW1 ( [facility]) Systolic blood pressure 130 mm[Hg] 130 mm[Hg] e CW1 ([facility]) Diastolic blood pressure 70 mm[Hg] 70 mm[Hg] eCW1 ([facility]) Systolic blood pressure 130 mm[Hg] 130 mm[Hg] M EDENT ([facility]) Diastolic blood pressure 82 mm[Hg] 82 mm[Hg] MEDENT ([facility]) Heart rate 85 /min 85 /min MEDENT ([facility]) Body temperature 97.0 [degF] 97.0 [degF] MEDENT ([facility]) Body height 60 [in_i] 60 [in_i] MEDENT ([facility]) 5'0" Body weight 178.00 [lb_av] 178.00 [lb_av] MEDEN T ([facility] ) Body mass index (BMI) [Ratio] 34.8 kg/m2 34.8 k g/m2 MEDENT ([facility] ) Oxygen saturation in Arterial blood by Pulse oximetry 98 % 98 % MEDENT ([facility] ) Body weight 179.6 [lb_av] 179.6 [lb_av] eCW1 ([facility]) Body weight 81.4 kg 81.4 kg eCW1 ([facility]) Body height 60.5 [in_i] 60.5 [in_i] eCW1 ([facility]) Body mass index (BMI) [Ratio] 34.49 kg/m2 34.49 kg/m2 eCW1 ([facility]) Heart rate 67 /min 67 /min eCW1 ([facility]) Respiratory rate 18 /min 18 /min eCW1 ([facility]) Body temperature 97.0 [degF] 97.0 [degF] eCW1 ( [facility]) Systolic blood pressure 138 mm[Hg] 138 mm[Hg] e CW1 ([facility]) Diastolic blood pressure 72 mm[Hg] 72 mm[Hg] eCW1 ([facility]) Body weight 179 [lb_av] 179 [lb_av] eCW1 ([facility]) Body height 60.5 [in_i] 60.5 [in_i] eCW1 ([facility]) Body mass index (BMI) [Ratio] 34.38 kg/m2 34.38 kg/m2 eCW1 ([facility]) Heart rate 73 /min 73 /min eCW1 ([facility]) Respiratory rate 20 /min 20 /min eCW1 ([facility]) Body temperature 96.1 [degF] 96.1 [degF] eCW1 ( [facility]) Systolic blood pressure 130 mm[Hg] 130 mm[Hg] e CW1 ([facility]) Diastolic blood pressure 70 mm[Hg] 70 mm[Hg] eCW1 ([facility]) Body weight 180.0 [lb_av] 180.0 [lb_av] eCW1 ([facility]) Body weight 81.6 kg 81.6 kg eCW1 ([facility]) Body height 60.5 [in_i] 60.5 [in_i] eCW1 ([facility]) Body mass index (BMI) [Ratio] 34.57 kg/m2 34.57 kg/m2 eCW1 ([facility]) Heart rate 75 /min 75 /min eCW1 ([facility]) Respiratory rate 18 /min 18 /min eCW1 ([facility]) Body temperature 97.0 [degF] 97.0 [degF] eCW1 ( [facility]) Systolic blood pressure 132 mm[Hg] 132 mm[Hg] e CW1 ([facility]) Diastolic blood pressure 62 mm[Hg] 62 mm[Hg] eCW1 ([facility]) Diastolic blood pressure 80 mm[Hg] 80 mm[Hg] MEDENT ([facility]) Body temperature 96.2 [degF] 96.2 [degF] MEDENT ([facility] Oxygen saturation in Arterial blood by Pulse oximetry 99 % 99 % MEDENT ([facility] ) Systolic blood pressure 132 mm[Hg] 132 mm[Hg] M EDENT ([facility]) Heart rate 56 /min 56 /min MEDENT ([facility]) Body height 60 [in_i] 60 [in_i] MEDENT ([facility]) 5'0" Body weight 172.25 [lb_av] 172.25 [lb_av] MEDEN T ([facility]) Body mass index (BMI) [Ratio] 33.6 kg/m2 33.6 k g/m2 MEDENT ([facility]) Body weight 172 [lb_av] 172 [lb_av] eCW1 ([facility]) Body height 60.5 [in_i] 60.5 [in_i] eCW1 ([facility]) Body mass index (BMI) [Ratio] 33.03 kg/m2 33.03 kg/m2 eCW1 ([facility]) Heart rate 130 /min 130 /min eCW1 ([facility]) Respiratory rate 20 /min 20 /min eCW1 ([facility]) Body temperature 96.9 [degF] 96.9 [degF] eCW1 ( [facility]) Systolic blood pressure 120 mm[Hg] 120 mm[Hg] e CW1 ([facility]) Diastolic blood pressure 62 mm[Hg] 62 mm[Hg] eCW1 ([facility]) Patient Treatment Plan of Care Planned Activity Planned Date Details Description Data Source (s) 24 HR Diltiazem Hydrochloride 120 MG Extended Release Oral Capsule 01/06/2021 12:00:00 AM EDT [facility] Digoxin 0.125 MG Oral Tablet 01/06/2021 12:00:00 AM EDT [facility] Spironolactone 25 MG Oral Tablet 01/06/2021 12:00:00 AM EDT [facility] Levothyroxine Sodium 0.137 MG Oral Tablet 12/19/2020 12:00:00 AM ED T [facility] cefpodoxime 200 MG Oral Tablet 12/15/2020 12:00:00 AM EDT [facility] doxycycline hyclate 100 MG Oral Tablet 12/15/2020 12:00:00 AM EDT [facility] cefpodoxime 200 MG Oral Tablet 12/15/2020 12:00:00 AM EDT eCW1 ([facility]) doxycycline hyclate 100 MG Oral Tablet 12/15/2020 12:00:00 AM EDT eCW1 ([facility]) cefpodoxime 200 MG Oral Tablet 12/15/2020 12:00:00 AM EDT eCW1 ([facility]) doxycycline hyclate 100 MG Oral Tablet 12/15/2020 12:00:00 AM EDT eCW1 ([facility]) Levothyroxine Sodium 0.137 MG Oral Tablet 11/25/2020 12:00:00 AM ED T eCW1 ([facility]) Levothyroxine Sodium 0.112 MG Oral Tablet 11/25/2020 12:00:00 AM ED T [facility] Levothyroxine Sodium 0.137 MG Oral Tablet 11/25/2020 12:00:00 AM ED T eCW1 ([facility]) Levothyroxine Sodium 0.137 MG Oral Tablet 11/25/2020 12:00:00 AM ED T eCW1 ([facility]) Levothyroxine Sodium 0.137 MG Oral Tablet 11/25/2020 12:00:00 AM ED T eCW1 ([facility]) aminophylline injection 75 mg 11/24/2020 10:00:00 AM EDT [facility] 24 HR Diltiazem Hydrochloride 120 MG Extended Release Oral Capsule 11/11/2020 12:00:00 AM EDT [facility] Chlorthalidone 25 MG Oral Tablet 10/14/2020 12:00:00 AM EDT [facility] Bisoprolol Fumarate 10 MG Oral Tablet 10/14/2020 12:00:00 AM EDT [facility] Digoxin 0.125 MG Oral Tablet 10/11/2020 12:00:00 AM EDT [facility] Metoprolol Tartrate 100 MG Oral Tablet 10/07/2020 12:00:00 AM EDT [facility] Amoxicillin 500 MG / Clavulanate 125 MG Oral Tablet 10/06/19 12:00:00 AM EDT [facility] apixaban 5 MG Oral Tablet 09/21/2020 12:00:00 AM EDT [facility] Cyclosporine 0.5 MG/ML Ophthalmic Suspension [Restasis ] 09/15/2020 12:00:00 AM EDT [place] ([facility]) atorvastatin 80 MG Oral Tablet 08/24/2020 12:00:00 AM EDT [facility] Levothyroxine Sodium 0.15 MG Oral Tablet 08/04/2020 12:00:00 AM EDT [facility] Levothyroxine Sodium 0.15 MG Oral Tablet 08/04/2020 12:00:00 AM EDT eCW1 ([facility]) Methotrexate 2.5 MG Oral Tablet 08/03/2020 12:00:00 AM EDT [facility] Folic Acid 1 MG Oral Tablet 08/03/2020 12:00:00 AM EDT [facility] OneTouch Ultra test strip 07/27/2020 12:00:00 AM EDT [facility] Losartan Potassium 25 MG Oral Tablet 06/16/2020 12:00:00 AM EST [facility] Digoxin 0.125 MG Oral Tablet 06/09/2020 12:00:00 AM EST [facility] BD Insulin Syringe U/F 31G X 5/16" 1 ML MISC 05/12/2020 12:00:00 AM EST [facility] Methotrexate 2.5 MG Oral Tablet 04/30/2020 12:00:00 AM EST eCW1 ([facility]) Folic Acid 1 MG Oral Tablet 04/30/2020 12:00:00 AM EST eCW1 ([facility]) Methotrexate 2.5 MG Oral Tablet 04/30/2020 12:00:00 AM EST eCW1 ([facility]) Folic Acid 1 MG Oral Tablet 04/30/2020 12:00:00 AM EST eCW1 ([facility]) Methotrexate 2.5 MG Oral Tablet 04/30/2020 12:00:00 AM EST eCW1 ([facility]) Methotrexate 2.5 MG Oral Tablet 04/30/2020 12:00:00 AM EST eCW1 ([facility]) Folic Acid 1 MG Oral Tablet 04/30/2020 12:00:00 AM EST eCW1 ([facility]) Folic Acid 1 MG Oral Tablet 04/30/2020 12:00:00 AM EST eCW1 ([facility]) Methotrexate 2.5 MG Oral Tablet 04/30/2020 12:00:00 AM EST eCW1 ([facility]) Folic Acid 1 MG Oral Tablet 04/30/2020 12:00:00 AM EST eCW1 ([facility]) Methotrexate 2.5 MG Oral Tablet 04/30/2020 12:00:00 AM EST eCW1 ([facility]) Folic Acid 1 MG Oral Tablet 04/30/2020 12:00:00 AM EST eCW1 ([facility]) Folic Acid 1 MG Oral Tablet 04/30/2020 12:00:00 AM EST eCW1 ([facility]) Folic Acid 1 MG Oral Tablet 04/30/2020 12:00:00 AM EST eCW1 ([facility]) Methotrexate 2.5 MG Oral Tablet 04/30/2020 12:00:00 AM EST eCW1 ([facility]) Folic Acid 1 MG Oral Tablet 04/30/2020 12:00:00 AM EST eCW1 ([facility]) Methotrexate 2.5 MG Oral Tablet 04/30/2020 12:00:00 AM EST eCW1 ([facility]) Folic Acid 1 MG Oral Tablet 04/30/2020 12:00:00 AM EST eCW1 ([facility]) Methotrexate 2.5 MG Oral Tablet 04/30/2020 12:00:00 AM EST eCW1 ([facility]) Folic Acid 1 MG Oral Tablet 04/30/2020 12:00:00 AM EST eCW1 ([facility]) Methotrexate 2.5 MG Oral Tablet 04/30/2020 12:00:00 AM EST eCW1 ([facility]) Folic Acid 1 MG Oral Tablet 04/30/2020 12:00:00 AM EST eCW1 ([facility]) Methotrexate 2.5 MG Oral Tablet 04/30/2020 12:00:00 AM EST eCW1 ([facility]) Folic Acid 1 MG Oral Tablet 04/30/2020 12:00:00 AM EST eCW1 ([facility]) Methotrexate 2.5 MG Oral Tablet 04/30/2020 12:00:00 AM EST eCW1 ([facility]) Folic Acid 1 MG Oral Tablet 04/30/2020 12:00:00 AM EST eCW1 ([facility]) Methotrexate 2.5 MG Oral Tablet 04/30/2020 12:00:00 AM EST eCW1 ([facility]) Methotrexate 2.5 MG Oral Tablet 04/30/2020 12:00:00 AM EST eCW1 ([facility]) Eysuvis 0.25% Ophthalmic Suspension 04/28/2020 12:00:00 AM EST [place] ([facility]) Losartan Potassium 25 MG Oral Tablet 04/26/2020 12:00:00 AM EST eCW1 ([facility]) Losartan Potassium 25 MG Oral Tablet 04/26/2020 12:00:00 AM EST eCW1 ([facility]) Levothyroxine Sodium 0.125 MG Oral Tablet 04/26/2020 12:00:00 AM ES T eCW1 ([facility]) Losartan Potassium 25 MG Oral Tablet 04/26/2020 12:00:00 AM EST eCW1 ([facility]) Levothyroxine Sodium 0.125 MG Oral Tablet 04/26/2020 12:00:00 AM ES T eCW1 ([facility]) Levothyroxine Sodium 0.125 MG Oral Tablet 04/26/2020 12:00:00 AM ES T eCW1 ([facility]) Losartan Potassium 25 MG Oral Tablet 04/26/2020 12:00:00 AM EST eCW1 ([facility]) besifloxacin 6 MG/ML Ophthalmic Suspension [Besivance] 04/20/2020 12:00:00 AM EST [place] ([facility]) doxycycline hyclate 20 MG Oral Tablet 04/02/2020 12:00:00 AM EST [facility] ([facility]) moxifloxacin 5 MG/ML Ophthalmic Solution 03/29/2020 12:00:00 AM EST [facility] ([facility]) Erythromycin 0.005 MG/MG Ophthalmic Ointment 03/16/2020 12:00:00 AM EST [facility] ([facility]) Polymyxin B 19168 UNT/ML / Trimethoprim 1 MG/ML Ophtha lmic Solution [Polytrim] 03/12/2020 12:00:00 AM EST [facility] ([facility]) moxifloxacin 5 MG/ML Ophthalmic Solution 03/12/2020 12:00:00 AM EST [facility] ([facility]) Levothyroxine Sodium 0.112 MG Oral Tablet 03/08/2020 12:00:00 AM ES T eCW1 ([facility]) Levothyroxine Sodium 0.112 MG Oral Tablet 03/08/2020 12:00:00 AM ES T eCW1 ([facility]) Levothyroxine Sodium 0.112 MG Oral Tablet 03/08/2020 12:00:00 AM ES T eCW1 ([facility]) Metoprolol Tartrate 100 MG Oral Tablet 03/04/2020 12:00:00 AM EST [facility] apixaban 5 MG Oral Tablet 03/04/2020 12:00:00 AM EST [facility] Dexamethasone 1 MG/ML / Tobramycin 3 MG/ML Ophthalmic Suspension [Tobradex] 02/11/2020 12:00:00 AM EDT [place] ([facility]) Spironolactone 25 MG Oral Tablet 01/12/2020 12:00:00 AM EDT [facility] Furosemide 20 MG Oral Tablet 12/30/2019 12:00:00 AM EDT [facility] Dexamethasone 1 MG/ML / Tobramycin 3 MG/ML Ophthalmic Suspension [Tobradex] 10/01/2019 12:00:00 AM EDT [facility] ([facility]) Erythromycin 0.005 MG/MG Ophthalmic Ointment 10/01/2019 12:00:00 AM EDT [place] ([facility]) fluticasone (FLONASE) 50 MCG/ACT nasal spray 06/03/2019 12:00:00 AM EST [facility] Potassium Chloride 20 MEQ Extended Release Oral Tablet 05/26/2019 12:00:00 AM EST [facility] Bisoprolol Fumarate 10 MG Oral Tablet [facility] Chlorthalidone 25 MG Oral Tablet [facility] Hydrochlorothiazide 25 MG Oral Tablet [facility] Bisoprolol Fumarate 10 MG / Hydrochlorothiazide 6.25 MG Oral Tablet [facility] Levothyroxine Sodium 0.1 MG Oral Tablet [facility]
[2021-02-04] MEDS ORDERED: GLUCOSE 4GM CHEW TABLET PO PRN (20:05)
[2021-02-04] MEDS ORDERED: DEXTROSE 50% 50 ML SYRINGE IV PRN (20:05)
[2021-02-04] MEDS ORDERED: GLUCAGON INJ 1MG VIAL SC PRN (20:05)
[2021-02-04] MEDS: ASPIRIN 81MG ENTERIC TABLET PO SCH (20:20)
[2021-02-04] MEDS ORDERED: OYST1TAB PO (20:27)
[2021-02-04] MEDS ORDERED: BISO10TA14 PO (20:27)
[2021-02-04] MEDS ORDERED: CHLO25TA PO (20:27)
[2021-02-04] MEDS ORDERED: D5W/0.9% SODIUM CHLORIDE 1,000 ML IV SCH (20:30)
[2021-02-04] MEDS ORDERED: HOME MED LIST COMPLETE! XX SCH (20:30)
[2021-02-04] MEDS ORDERED: REMDESIVIR 200 MG in NS 250 ML IV ONE (21:00)
[2021-02-04] MEDS ORDERED: ONDANSETRON 4MG/2ML VIAL IV PRN (21:10)
[2021-02-04] MEDS ORDERED: HEPARIN DRIP 25,000 UNITS in IV 1 EA IV SCH (21:30)
[2021-02-04] MEDS ORDERED: HEPARIN SOD (PORCINE) 5000UNITS/ML 1ML VIAL/SYRINGE IV PRN (21:30)
[2021-02-04] MEDS ORDERED: methylPREDNISolone 125MG 2ML VIAL IV STA (21:31)
[2021-02-04 21:45] LABS: C REACTIVE PROTEIN QUANTITATIV 1.34 MG/DL (0.00-0.30); MAGNESIUM LEVEL 1.8 MG/DL (1.8-2.4); TROPONIN I 0.02 NG/ML (< 0.10)
[2021-02-04 21:54] LABS: INR 1.34
[2021-02-04] MEDS ORDERED: LR 1,000 ML IV ONE (21:55)
[2021-02-04] MEDS ORDERED: LABETALOL 100MG/20ML VIAL IV PRN (21:55)
[2021-02-04 21:58] LABS: D-DIMER QUANT 804.86 ng/ml (<500)
[2021-02-04 22:13] LABS: VENOUS BASE EXCESS -0.8 (-2.0-2.0); VENOUS HCO3 24.1 MEQ/L (23.0-27.0); VENOUS O2 SATURATION 74.8 % (60.0-80.0); VENOUS PARTIAL PRESSURE CO2 40.9 mmHg (38.0-50.0); VENOUS PARTIAL PRESSURE O2 39.3 mmHg (30.0-50.0); VENOUS PH 7.389 UNITS (7.330-7.430); VENOUS STANDARD HCO3 23.3 MEQ/L; VENOUS TOTAL CO2 25.4 MEQ/L (24.0-28.0)
[2021-02-04 22:23] LABS: DIGOXIN LEVEL 1.7 NG/ML (0.5-2.0); PHOSPHORUS LEVEL 2.5 MG/DL (2.5-4.9)
[2021-02-04 22:32] LABS: PTH INTACT 70.7 PG/ML (18.5-88.0)
[2021-02-04] MEDS: BENZONATATE 100MG CAPSULE PO SCH (22:46)
[2021-02-04] MEDS: MAG SULF 1GM/100ML (MAG RUN) 1 GM in IV 1 EA IV SCH (22:46)
[2021-02-04] MEDS: HumaLOG INSULIN (NovoLOG) PER UNIT SC SCH (23:00)
[2021-02-04] MEDS ORDERED: SODIUM CHLORIDE 0.9% INJ 10 ML SYR IV ONE (23:00)
[2021-02-05] VITALS (11 sets, daily range): BP systolic 131–154; BP diastolic 59–73; PULSE 73; O2SAT 91–98
[2021-02-05] MEDS: MAG SULF 1GM/100ML (MAG RUN) 1 GM in IV 1 EA IV SCH (00:43)
[2021-02-05] MEDS: HumaLOG INSULIN (NovoLOG) PER UNIT SC SCH ×7 (00:59→17:20)
[2021-02-05] MEDS: LEVOTHYROXINE 137MCG TABLET (0.137MG) PO SCH (06:34)
[2021-02-05] MEDS: BENZONATATE 100MG CAPSULE PO SCH ×3 (06:35→21:04)
--- NOTE | 2021-02-05 07:54 | REP ---
INDICATION: DHARMESH COMPARISON: None TECHNIQUE: Real time reynolds scale ultrasound examination using curved array transducer. FINDINGS: Right kidney measures 8.4 x 4.7 x 4.2 cm and demonstrates increased central sinus fat without hydronephrosis, nephrolithiasis, cystic or renal mass lesion. Left kidney measures 9.7 x 4.0 x 5.1 cm and demonstrates increased central sinus fat without hydronephrosis, nephrolithiasis, cystic or renal mass lesion. Bladder is unremarkable. IMPRESSION: Chronic medical renal disease with mild asymmetric atrophy to the right kidney. No evidence for hydronephrosis.. <Electronically signed by Jc Morel > 02/05/21 [id number]
[2021-02-05] MEDS: IPRATROPIUM 0.5MG/ALBUTEROL 2.5MG INH SOL UD 3ML (DUONEB) NEB SCH ×3 (08:14→20:30)
[2021-02-05 08:42] LABS: HEMOGLOBIN 12.5 g/dl (12.0-15.5); LYMPH # 1.6 10^3/uL (1.5-5.0); LYMPH % 33.2 % (24.0-44.0); MEAN CORPUSCULAR HEMOGLOBIN 29.3 pg (27.0-33.0); MEAN CORPUSCULAR HGB CONC 32.1 g/dl (32.0-36.5); MEAN CORPUSCULAR VOLUME 91.3 fl (80.0-96.0); MONO # 0.1 10^3/uL (0.0-0.8); MONO % 2.3 % (2.0-8.0); NEUTROPHILS % 64.1 % (36.0-66.0); PLATELET COUNT, AUTOMATED 170 10^3/uL (150-450); RED BLOOD COUNT 4.27 10^6/uL (4.00-5.40); WHITE BLOOD COUNT 4.7 10^3/uL (4.0-10.0)
[2021-02-05] MEDS ORDERED: predniSONE 20 MG TAB PO SCH (09:00)
[2021-02-05] MEDS: DIGOXIN 0.125 MG TAB PO SCH (09:05)
[2021-02-05] MEDS: ASPIRIN 81MG ENTERIC TABLET PO SCH (09:05)
[2021-02-05] MEDS: bisoproloL fumarate 10 MG TAB PO SCH (09:05)
[2021-02-05] MEDS: dexameTHASONE 20MG/5ML VIAL (J1100 PER 1MG) IV SCH (09:06)
[2021-02-05] MEDS: FOLIC ACID 1 MG TAB PO SCH (09:06)
[2021-02-05 09:08] LABS: CALCIUM LEVEL 8.3 MG/DL (8.8-10.2); CREATININE FOR GFR 1.4 MG/DL (0.55-1.30); GLOMERULAR FILTRATION RATE 39.2 (>39); MAGNESIUM LEVEL 2.5 MG/DL (1.8-2.4); POTASSIUM SERUM 4.7 MEQ/L (3.5-5.1)
[2021-02-05 09:30] LABS: HEMOGLOBIN A1c 7.4 %
--- NOTE | 2021-02-05 14:52 | IPNPDOC ---
Subjective Date Seen The patient was seen on 02/05/21. Subjective Chief Complaint/HPI Patient was seen and examined at bedside this morning. She reports some improvement in her respiratory status. She denied chest pain, abdominal pain, nausea, vomiting, problems with urination or bowel movements. Objective Physical Examination Other physical findings General: Lying in bed, no acute distress Head/Neck/Throat: Trachea midline, mucous membranes moist Eyes: Sclera anicteric, No erythema or discharge appreciated bilateral Thorax: Normal respiratory effort on 2 L nasal cannula, lungs clear to auscultation bilaterally, no wheezes/rales/rhonchi Cardiovascular: Normal rate, regular rhythm, normal S1, S2; no S3, S4, rubs/gallops/murmurs Abdomen: Bowel sounds present, soft/nontender/nondistended Musculoskeletal: Moving all extremities, no edema Skin: Warm, dry Neurologic: AAOx3, speech fluent and goal-directed, no focal deficits, grossly intact Assessment /Plan Assessment #COVID-19 -Dexamethasone and remdesivir. -O2 protocol in place -O2 saturation goal of 92 to 95% -Continue with contact and airborne precautions -Support wrist neb treatments as needed. Zofran for her nausea and vomiting. #Asthma exacerbation -Secondary to COVID-19. Continue with steroids and duo nebs. #Insulin-dependent diabetes mellitus -Hold oral diabetic medications per patient was hypoglycemic on admission due to poor p.o. intake. She is now tolerating a diet and blood glucose are within normal limits. Continue with ac/hs Accu-Cheks, hypoglycemic protocol, and sliding scale. #A fib with RVR / Sick sinus syndrome w pacemaker -Likely exacerbated secondary to underlying infection. Heart rate is now well controlled with her ambulatory medication resumed including bisoprolol, digoxin and diltiazem. Continue systemic anticoagulation with apixaban #DHARMESH on chronic kidney disease stage III -Creatinine on 01/28 was 1.4, and this may be her baseline now. If kidney function remains stable, will resume ambulatory medications including losartan. -Ultrasound showed chronic medical renal disease with no evidence of hydronephrosis. #Essential HTN -Blood pressure is well controlled. Continue with bisoprolol and diltiazem. Her chlorthalidone, spironolactone, and losartan were held for suspicion of acute on chronic kidney disease. #Chronic HFpEF -No signs of acute exacerbation. Monitor I's/O and daily weights. #Hypothyroidism -Continue with levothyroxine #DEVEN -Patient should be using her old CPAP during hospitalization. #Follicular non-Hodgkin's lymphoma -Upon discharge she will be started on her methotrexate. #Class 3 obesity -complicates care #DVT -Offered by Eliquis Plan/VTE VTE Prophylaxis Ordered?: Yes VS, I&O, 24H, Fishbone Vital Signs/I&O Vital Signs Date Time Temp Pulse Resp B/P (MAP) Pulse Ox O2 Delivery O2 Flow Rate FiO2 02/05/21 12:00 97.0 71 18 139/69 (92) 95 Room Air 02/05/21 08:00 2.0 I&O- Last 24 Hours up to 6 AM 02/05/21 06:00 Intake Total 1468 ml Output Total 0 ml Balance 1468 ml Laboratory Data 24H LABS Laboratory Tests 2 02/04/21 18:11: Bedside Glucose (Misc Panel) 46L 02/04/21 18:30: Bedside Glucose (Misc Panel) 56L 02/04/21 19:05: Bedside Glucose (Misc Panel) 75L 02/04/21 21:07: Prothrombin Time 17.0H, Prothromb Time International Ratio 1.34, Activated Partial Thromboplast Time 35.0, Fibrinogen 506H, D-Dimer, Quantitative 804.86H, Phosphorus Level 2.5, Magnesium Level 1.8, Ferritin 681H, Lactate Dehydrogenase 343H, Troponin I 0.02, C-Reactive Protein, Quantitative 1.34H, Procalcitonin <0.05, Parathyroid Hormone (Intact) 70.7, Digoxin Level 1.7 02/04/21 21:49: Lactic Acid Level 2.3*H 02/04/21 21:59: Blood Gas Bicarbonate Standard 23.3, Venous Blood pH 7.389, Venous Blood Partial Pressure CO2 40.9, Venous Blood Partial Pressure O2 39.3, Venous Blood Total Carbon Dioxide 25.4, Venous Blood HCO3 24.1, Venous Blood Oxygen Saturation 74.8, Venous Blood Base Excess -0.8 02/04/21 22:57: Bedside Glucose (Misc Panel) 124H 02/05/21 00:49: Bedside Glucose (Misc Panel) 101 02/05/21 02:19: Activated Partial Thromboplast Time 36.7, Lactic Acid Followup at 4 Hours 1.0 02/05/21 02:46: Bedside Glucose (Misc Panel) 110 02/05/21 04:53: Bedside Glucose (Misc Panel) 142H 02/05/21 06:34: Bedside Glucose (Misc Panel) 175H 02/05/21 08:27: Immature Granulocyte % (Auto) 0.4, Neutrophils (%) (Auto) 64.1, Lymphocytes (%) (Auto) 33.2, Monocytes (%) (Auto) 2.3, Eosinophils (%) (Auto) 0.0, Basophils (%) (Auto) 0.0, Neutrophils # (Auto) 3.0, Lymphocytes # (Auto) 1.6, Monocytes # (Auto) 0.1, Eosinophils # (Auto) 0.0, Basophils # (Auto) 0.0, Nucleated Red Blood Cells % (auto) 0.0, Activated Partial Thromboplast Time 204.1*H, Anion Gap 7L, Glomerular Filtration Rate 39.2, Estimated Mean Plasma Glucose 166H, Hemoglobin A1c 7.4, Calcium Level 8.3L, Magnesium Level 2.5H 02/05/21 09:02: Bedside Glucose (Misc Panel) 221H 02/05/21 10:54: Bedside Glucose (Misc Panel) 289H 02/05/21 12:10: Bedside Glucose (Misc Panel) 312H CBC/BMP Laboratory Tests 02/05/21 08:27 Microbiology Microbiology 02/04/21 Blood Culture, Received Pending 02/04/21 Respiratory Virus Panel (PCR) ([facility]) - Final, Complete SARS-CoV-2 (COVID 19) EUN HASSAN M.D. Feb 05, 2021 14:52
[2021-02-05] MEDS: APIXABAN 5 MG TAB (ELIQUIS) PO SCH ×2 (15:16→19:46)
[2021-02-05] MEDS: OMEPRAZOLE 20 MG CAP PO SCH (16:36)
[2021-02-05] MEDS: OYSTER SHELL CALCIUM 500 MG TAB PO SCH (16:37)
[2021-02-05] MEDS: SODIUM CHLORIDE 0.9% INJ 10 ML SYR IV SCH (19:47)
[2021-02-05] MEDS: REMDESIVIR 100 MG in NS 250 ML IV SCH (19:47)
[2021-02-05] MEDS: ATORVASTATIN 20 MG TAB PO SCH (19:47)
[2021-02-05] MEDS ORDERED: HumaLOG INSULIN (NovoLOG) PER UNIT SC SCH (21:00)
[2021-02-06] VITALS (7 sets, daily range): BP systolic 123–147; BP diastolic 56–63; O2SAT 92–93
[2021-02-06] MEDS: IPRATROPIUM 0.5MG/ALBUTEROL 2.5MG INH SOL UD 3ML (DUONEB) NEB SCH ×4 (01:10→19:40)
[2021-02-06] MEDS: LEVOTHYROXINE 137MCG TABLET (0.137MG) PO SCH (05:10)
[2021-02-06] MEDS: BENZONATATE 100MG CAPSULE PO SCH ×3 (05:11→21:16)
[2021-02-06 05:45] LABS: HEMATOCRIT 34.8 % (36.0-47.0); HEMOGLOBIN 11.2 g/dl (12.0-15.5); MEAN CORPUSCULAR HEMOGLOBIN 29.2 pg (27.0-33.0); MEAN CORPUSCULAR HGB CONC 32.2 g/dl (32.0-36.5); MEAN CORPUSCULAR VOLUME 90.9 fl (80.0-96.0); PLATELET COUNT, AUTOMATED 198 10^3/uL (150-450); RED BLOOD COUNT 3.83 10^6/uL (4.00-5.40); WHITE BLOOD COUNT 9.2 10^3/uL (4.0-10.0)
[2021-02-06 06:19] LABS: INR 1.35; PROTHROMBIN TIME 17.1 SECONDS (12.7-14.5)
[2021-02-06 06:20] LABS: PARTIAL THROMBOPLASTIN TIME 31.9 SECONDS (25.9-37.0)
[2021-02-06 06:26] LABS: ALBUMIN 2.6 GM/DL (3.2-5.2); BILIRUBIN,DIRECT 0.2 MG/DL (0.0-0.2); BILIRUBIN,TOTAL 0.4 MG/DL (0.2-1.0); CALCIUM LEVEL 7.6 MG/DL (8.8-10.2); CREATININE FOR GFR 2.06 MG/DL (0.55-1.30); GLOMERULAR FILTRATION RATE 25.1 (>39); MAGNESIUM LEVEL 2.3 MG/DL (1.8-2.4); PHOSPHORUS LEVEL 3.1 MG/DL (2.5-4.9); POTASSIUM SERUM 4.4 MEQ/L (3.5-5.1); TOTAL PROTEIN 5.6 GM/DL (6.4-8.2); TROPONIN I 0.02 NG/ML (< 0.10)
[2021-02-06] MEDS ORDERED: HumaLOG INSULIN (NovoLOG) PER UNIT SC STA ×2 (07:07→20:08)
[2021-02-06] MEDS: FUROSEMIDE 40MG/4ML VIAL (J1940) IV SCH ×2 (08:40→17:10)
[2021-02-06] MEDS: HumaLOG INSULIN (NovoLOG) PER UNIT SC SCH ×4 (08:40→23:49)
[2021-02-06] MEDS: OMEPRAZOLE 20 MG CAP PO SCH (08:40)
[2021-02-06] MEDS: dexameTHASONE 20MG/5ML VIAL (J1100 PER 1MG) IV SCH (08:40)
[2021-02-06] MEDS: ASPIRIN 81MG ENTERIC TABLET PO SCH (08:41)
[2021-02-06] MEDS: DIGOXIN 0.125 MG TAB PO SCH (08:41)
[2021-02-06] MEDS: bisoproloL fumarate 10 MG TAB PO SCH (08:41)
[2021-02-06] MEDS: OYSTER SHELL CALCIUM 500 MG TAB PO SCH (08:41)
[2021-02-06] MEDS: APIXABAN 5 MG TAB (ELIQUIS) PO SCH ×2 (08:41→20:14)
[2021-02-06] MEDS: FOLIC ACID 1 MG TAB PO SCH (08:41)
[2021-02-06] MEDS: LEVEMIR (INSULIN DETEMIR) 1 UNITS/0.01ML SC SCH (08:42)
[2021-02-06] MEDS ORDERED: HumaLOG INSULIN (NovoLOG) PER UNIT SC ONE (09:50)
[2021-02-06] MEDS ORDERED: HumaLOG INSULIN (NovoLOG) PER UNIT SC SCH (12:00)
--- NOTE | 2021-02-06 13:43 | IPNPDOC ---
Subjective Date Seen The patient was seen on 02/06/21. Subjective Chief Complaint/HPI Patient seen and examined at bedside this morning. She had just used the commode and reported feeling significantly short of breath. She denied chest pain, palpitations, abdominal pain, nausea, vomiting, problems with urination and bowel movements. Objective Physical Examination Other physical findings General: Lying in bed, no acute distress Head/Neck/Throat: Trachea midline, mucous membranes moist Eyes: Sclera anicteric, No erythema or discharge appreciated bilateral Thorax: No evidence of accessory muscle use on 5 L nasal cannula,bibasal crackles. Cardiovascular: Normal rate, regular rhythm, normal S1, S2; no S3, S4, rubs/gallops/murmurs Abdomen: Bowel sounds present, soft/nontender/nondistended Musculoskeletal: Moving all extremities, no edema Skin: Warm, dry Neurologic: AAOx3, speech fluent and goal-directed, no focal deficits, grossly intact Assessment /Plan Assessment #COVID-19 -Dexamethasone and remdesivir. -O2 protocol in place -O2 saturation goal of 92 to 95% -Continue with contact and airborne precautions -Support with neb treatments as needed. Zofran for her nausea and vomiting. #Asthma exacerbation -Secondary to COVID-19. Continue with steroids and duo nebs. #Insulin-dependent diabetes mellitus -Resume basal regimen for better blood glucose control. Continue with ac/hs Accu-Cheks, hypoglycemic protocol, and sliding scale. #A fib with RVR / Sick sinus syndrome w pacemaker -Likely exacerbated secondary to underlying infection. Heart rate is now well controlled with her ambulatory medication resumed including bisoprolol, digoxin and diltiazem. Continue systemic anticoagulation with apixaban #DHARMESH on chronic kidney disease stage III -Ultrasound showed chronic medical renal disease with no evidence of hydronephro sis. #Essential HTN -Blood pressure is well controlled. Continue with bisoprolol and diltiazem. Her chlorthalidone, spironolactone, and losartan were held for suspicion of acute on chronic kidney disease. #Chronic HFpEF -No signs of acute exacerbation. Monitor I's/O and daily weights. -Lasix x 1 given, pt had crackles on exam, and elevated bnp. #Hypothyroidism -Continue with levothyroxine #DEVEN -Patient should be using her old CPAP during hospitalization. #Follicular non-Hodgkin's lymphoma -Upon discharge she will be started on her methotrexate. #Class 3 obesity -complicates care #DVT -Offered by Eliquis Plan/VTE VTE Prophylaxis Ordered?: Yes VS, I&O, 24H, Fishbone Vital Signs/I&O Vital Signs Date Time Temp Pulse Resp B/P (MAP) Pulse Ox O2 Delivery O2 Flow Rate FiO2 02/06/21 13:18 91 Nasal Cannula 5.0 02/06/21 08:42 88 129/91 02/06/21 03:47 96.2 20 I&O- Last 24 Hours up to 6 AM 02/06/21 06:00 Intake Total 740 ml Output Total 425 ml Balance 315 ml Laboratory Data 24H LABS Laboratory Tests 2 02/05/21 16:53: Bedside Glucose (Misc Panel) 364H 02/05/21 18:40: Activated Partial Thromboplast Time 35.0 02/05/21 19:44: Bedside Glucose (Misc Panel) 336H 02/06/21 05:15: Activated Partial Thromboplast Time 31.9, Nucleated Red Blood Cells % (auto) 0.0, Prothrombin Time 17.1H, Prothromb Time International Ratio 1.35, Fibrinogen 481H, Anion Gap 12, Glomerular Filtration Rate 25.1L, Calcium Level 7.6L, Phosphorus Level 3.1#, Magnesium Level 2.3, Ferritin 1147H, Total Bilirubin 0.4, Direct Bilirubin 0.2, Aspartate Amino Transf (AST/SGOT) 49H, Alanine Aminotransferase (ALT/SGPT) 49, Alkaline Phosphatase 73, Lactate Dehydrogenase 495H, Total Creatine Kinase 354#H, Troponin I 0.02, PG-Way-G-Type Natriuretic Peptide 9135H, Total Protein 5.6L, Albumin 2.6L, Albumin/Globulin Ratio 0.9L 02/06/21 08:02: Bedside Glucose (Misc Panel) 437H 02/06/21 10:17: Bedside Glucose (Misc Panel) 370H 02/06/21 12:51: Bedside Glucose (Misc Panel) 210H CBC/BMP Laboratory Tests 02/06/21 05:15 Microbiology Microbiology 02/04/21 Blood Culture - Preliminary, Resulted No growth after 24 hours . All specim... 02/04/21 Respiratory Virus Panel (PCR) ([facility]) - Final, Complete SARS-CoV-2 (COVID 19) EUN HASSAN M.D. Feb 06, 2021 13:43
[2021-02-06] MEDS: REMDESIVIR 100 MG in NS 250 ML IV SCH (20:14)
[2021-02-06] MEDS: ATORVASTATIN 20 MG TAB PO SCH (20:14)
[2021-02-06] MEDS: SODIUM CHLORIDE 0.9% INJ 10 ML SYR IV SCH (21:18)
[2021-02-07] VITALS: O2SAT 92
[2021-02-07] MEDS: IPRATROPIUM 0.5MG/ALBUTEROL 2.5MG INH SOL UD 3ML (DUONEB) NEB SCH ×4 (02:58→20:00)
[2021-02-07 04:00] VITALS: O2SAT 92
[2021-02-07 05:46] VITALS: BP 133/53
[2021-02-07] MEDS: BENZONATATE 100MG CAPSULE PO SCH ×3 (05:51→21:18)
[2021-02-07] MEDS: LEVOTHYROXINE 137MCG TABLET (0.137MG) PO SCH ×2 (05:51→11:50)
[2021-02-07] MEDS: HumaLOG INSULIN (NovoLOG) PER UNIT SC SCH ×3 (06:04→18:14)
[2021-02-07 06:11] LABS: HEMATOCRIT 35.3 % (36.0-47.0); HEMOGLOBIN 11.8 g/dl (12.0-15.5); MEAN CORPUSCULAR HEMOGLOBIN 29.4 pg (27.0-33.0); MEAN CORPUSCULAR HGB CONC 33.4 g/dl (32.0-36.5); PLATELET COUNT, AUTOMATED 238 10^3/uL (150-450); RED BLOOD COUNT 4.01 10^6/uL (4.00-5.40); WHITE BLOOD COUNT 13.1 10^3/uL (4.0-10.0)
[2021-02-07 06:45] LABS: ALBUMIN 2.5 GM/DL (3.2-5.2); BILIRUBIN,TOTAL 0.4 MG/DL (0.2-1.0); CREATININE FOR GFR 1.73 MG/DL (0.55-1.30); GLOMERULAR FILTRATION RATE 30.7 (>39); MAGNESIUM LEVEL 2.1 MG/DL (1.8-2.4); PHOSPHORUS LEVEL 2.7 MG/DL (2.5-4.9); POTASSIUM SERUM 3.9 MEQ/L (3.5-5.1); TOTAL PROTEIN 5.2 GM/DL (6.4-8.2)
[2021-02-07] MEDS ORDERED: FLUBLOK(EGG FREE)(QUAD)INFLUENZA VACC 0.5ML SYRINGE 18YRS & OLDER IM ONE (09:00)
[2021-02-07] MEDS ORDERED: FUROSEMIDE 40MG/4ML VIAL (J1940) IV SCH (09:00)
[2021-02-07] MEDS: LEVEMIR (INSULIN DETEMIR) 1 UNITS/0.01ML SC SCH (11:49)
[2021-02-07] MEDS: APIXABAN 5 MG TAB (ELIQUIS) PO SCH ×2 (11:50→21:18)
[2021-02-07] MEDS: ATORVASTATIN 20 MG TAB PO SCH ×2 (11:50→21:18)
[2021-02-07] MEDS: dexameTHASONE 20MG/5ML VIAL (J1100 PER 1MG) IV SCH (11:51)
[2021-02-07] MEDS: OMEPRAZOLE 20 MG CAP PO SCH (11:52)
[2021-02-07] MEDS: ASPIRIN 81MG ENTERIC TABLET PO SCH (11:53)
[2021-02-07] MEDS: DIGOXIN 0.125 MG TAB PO SCH (11:53)
[2021-02-07] MEDS: OYSTER SHELL CALCIUM 500 MG TAB PO SCH (11:54)
[2021-02-07] MEDS: FOLIC ACID 1 MG TAB PO SCH (11:54)
[2021-02-07] MEDS: bisoproloL fumarate 10 MG TAB PO SCH (11:55)
--- NOTE | 2021-02-07 16:03 | IPNPDOC ---
Subjective Date Seen The patient was seen on 02/07/21. Subjective Chief Complaint/HPI Patient seen and examined at bedside this morning. She had to be increased in her oxygen requirements and reported feeling better after this was done. She denied chest pain, abdominal pain, nausea, vomiting, problems with urination or bowel movements Objective Physical Examination Other physical findings General: Lying in bed, no acute distress Head/Neck/Throat: Trachea midline, mucous membranes moist Eyes: Sclera anicteric, No erythema or discharge appreciated bilateral Thorax: No evidence of accessory muscle use on 10 L nasal cannula, bibasal crackles. Cardiovascular: Normal rate, regular rhythm, normal S1, S2; no S3, S4, rubs/gallops/murmurs Abdomen: Bowel sounds present, soft/nontender/nondistended Musculoskeletal: Moving all extremities, no edema Skin: Warm, dry Neurologic: AAOx3, speech fluent and goal-directed, no focal deficits, grossly intact Assessment /Plan Assessment #COVID-19 pneumonia -Dexamethasone and remdesivir. -She will be started on baricitinib -pharmacy made aware that pulmonology approves. -O2 protocol in place -O2 saturation goal of 92 to 95% -Continue with contact and airborne precautions -Support with neb treatments as needed. Zofran for her nausea and vomiting. #Asthma exacerbation -Secondary to COVID-19. Continue with steroids and duo nebs. #Insulin-dependent diabetes mellitus -Resume basal regimen for better blood glucose control. Continue with ac/hs Accu-Cheks, hypoglycemic protocol, and sliding scale. #A fib with RVR / Sick sinus syndrome w pacemaker -Likely exacerbated secondary to underlying infection. Heart rate is now well controlled with her ambulatory medication resumed including bisoprolol, digoxin and diltiazem. Continue systemic anticoagulation with apixaban #DHARMESH on chronic kidney disease stage III -Ultrasound showed chronic medical renal disease with no evidence of hydronephrosis. -Continue with diuresis, likely due to her heart failure and poor p.o. intake #Exacerbation of chronic HFpEF -Elevated BNP and bilateral crackles appreciated on exam. Continue with furosemide. Daily weights, I's/O, #Essential HTN -Blood pressure is well controlled. Continue with bisoprolol and diltiazem. Her chlorthalidone, spironolactone, and losartan were held for suspicion of acute on chronic kidney disease. #Hypothyroidism -Continue with levothyroxine #DEVEN -Patient should be using her old CPAP during hospitalization. #Follicular non-Hodgkin's lymphoma -Upon discharge she will be started on her methotrexate. #Class 3 obesity -complicates care #DVT -Offered by Efraín Updates provided to patient's daughter, Maryjane who asked to be updated every day. Plan/VTE VTE Prophylaxis Ordered?: Yes VS, I&O, 24H, Fishbone Vital Signs/I&O Vital Signs Date Time Temp Pulse Resp B/P (MAP) Pulse Ox O2 Delivery O2 Flow Rate FiO2 02/07/21 11:55 133/53 02/07/21 11:53 95 02/07/21 09:20 10.0 02/07/21 05:46 96.7 19 92 Nasal Cannula I&O- Last 24 Hours up to 6 AM 02/07/21 06:00 Intake Total 1290 ml Output Total 2500 ml Balance -1210 ml Laboratory Data 24H LABS Laboratory Tests 2 02/06/21 16:54: Bedside Glucose (Misc Panel) 236H 02/06/21 23:45: Bedside Glucose (Misc Panel) 241H 02/07/21 05:48: Bedside Glucose (Misc Panel) 192H 02/07/21 05:59: Nucleated Red Blood Cells % (auto) 0.0 02/07/21 06:00: Anion Gap 8, Glomerular Filtration Rate 30.7L, Calcium Level 8.0L, Phosphorus Level 2.7, Magnesium Level 2.1, Total Bilirubin 0.4, Aspartate Amino Transf (AST/SGOT) 48H, Alanine Aminotransferase (ALT/SGPT) 46, Alkaline Phosphatase 83, Total Protein 5.2L, Albumin 2.5L, Albumin/Globulin Ratio 0.9L 02/07/21 12:27: Bedside Glucose (Misc Panel) 177H CBC/BMP Laboratory Tests 02/07/21 05:59 02/07/21 06:00 Microbiology Microbiology 02/04/21 Blood Culture - Preliminary, Resulted No Growth after 48 hours. All Specime... 02/04/21 Respiratory Virus Panel (PCR) (BOB) - Final, Complete SARS-CoV-2 (COVID 19) EUN HASSAN M.D. Feb 07, 2021 15:48
[2021-02-07 17:41] VITALS: BP 141/63
[2021-02-07] MEDS: BARICITINIB 2MG TABLET (OLUMIANT) FOR EUA PO SCH (18:15)
[2021-02-07] MEDS: REMDESIVIR 100 MG in NS 250 ML IV SCH (20:35)
[2021-02-07] MEDS: SODIUM CHLORIDE 0.9% INJ 10 ML SYR IV SCH (21:00)
[2021-02-07 22:00] VITALS: BP 142/64
[2021-02-08] MEDS: IPRATROPIUM 0.5MG/ALBUTEROL 2.5MG INH SOL UD 3ML (DUONEB) NEB SCH ×4 (02:00→20:56)
[2021-02-08 05:39] VITALS: BP 133/60
[2021-02-08 06:21] LABS: HEMATOCRIT 35.9 % (36.0-47.0); HEMOGLOBIN 11.7 g/dl (12.0-15.5); MEAN CORPUSCULAR HEMOGLOBIN 29.1 pg (27.0-33.0); MEAN CORPUSCULAR HGB CONC 32.6 g/dl (32.0-36.5); MEAN CORPUSCULAR VOLUME 89.3 fl (80.0-96.0); PLATELET COUNT, AUTOMATED 280 10^3/uL (150-450); RED BLOOD COUNT 4.02 10^6/uL (4.00-5.40); WHITE BLOOD COUNT 10.2 10^3/uL (4.0-10.0)
[2021-02-08 06:34] LABS: INR 1.53; PROTHROMBIN TIME 18.8 SECONDS (12.7-14.5)
[2021-02-08 06:35] LABS: PARTIAL THROMBOPLASTIN TIME 30.1 SECONDS (25.9-37.0)
[2021-02-08] MEDS: BENZONATATE 100MG CAPSULE PO SCH ×3 (06:38→21:27)
[2021-02-08 06:45] LABS: ALBUMIN 2.5 GM/DL (3.2-5.2); BILIRUBIN,DIRECT 0.2 MG/DL (0.0-0.2); BILIRUBIN,TOTAL 0.6 MG/DL (0.2-1.0); CREATININE FOR GFR 1.54 MG/DL (0.55-1.30); GLOMERULAR FILTRATION RATE 35.2 (>39); MAGNESIUM LEVEL 2.2 MG/DL (1.8-2.4); POTASSIUM SERUM 4.3 MEQ/L (3.5-5.1); TOTAL PROTEIN 5.4 GM/DL (6.4-8.2); TROPONIN I 0.02 NG/ML (< 0.10)
[2021-02-08] MEDS: ASPIRIN 81MG ENTERIC TABLET PO SCH (09:05)
[2021-02-08] MEDS: LEVEMIR (INSULIN DETEMIR) 1 UNITS/0.01ML SC SCH (09:05)
[2021-02-08] MEDS: HumaLOG INSULIN (NovoLOG) PER UNIT SC SCH ×4 (09:05→21:28)
[2021-02-08] MEDS: FOLIC ACID 1 MG TAB PO SCH (09:06)
[2021-02-08] MEDS: dexameTHASONE 20MG/5ML VIAL (J1100 PER 1MG) IV SCH ×2 (09:06→21:27)
[2021-02-08] MEDS: APIXABAN 5 MG TAB (ELIQUIS) PO SCH ×2 (09:07→21:27)
[2021-02-08] MEDS: bisoproloL fumarate 10 MG TAB PO SCH (09:07)
[2021-02-08] MEDS: BARICITINIB 2MG TABLET (OLUMIANT) FOR EUA PO SCH (09:08)
[2021-02-08] MEDS: LEVOTHYROXINE 137MCG TABLET (0.137MG) PO SCH (09:08)
[2021-02-08] MEDS: DIGOXIN 0.125 MG TAB PO SCH (09:08)
[2021-02-08] MEDS: OYSTER SHELL CALCIUM 500 MG TAB PO SCH (09:09)
[2021-02-08] MEDS: OMEPRAZOLE 20 MG CAP PO SCH (09:09)
[2021-02-08] MEDS: ATORVASTATIN 20 MG TAB PO SCH (21:27)
[2021-02-08] MEDS: REMDESIVIR 100 MG in NS 250 ML IV SCH (21:29)
[2021-02-08 21:43] VITALS: O2SAT 84
[2021-02-08 21:45] VITALS: O2SAT 88
[2021-02-08 21:52] VITALS: O2SAT 91
[2021-02-08 22:00] VITALS: BP 153/68
--- NOTE | 2021-02-08 22:22 | IPNPDOC ---
Subjective Date Seen The patient was seen on 02/08/21. Subjective Chief Complaint/HPI Patient this am at bedside, sitting up in bed. She is now requiring 10 to 12 lites of oxygen. No worsening of dyspnea as per patient. Has some cough with phlegm production. Have updated daughter Maryjane. Objective Physical Examination General Exam: Positive: Alert, Cooperative, Other (Has conversational dyspnea.) Eye Exam: Positive: PERRLA, Conjunctiva & lids normal, EOMI; Negative: Sclera icteric Neck Exam: Positive: Supple; Negative: JVD, thyromegaly Chest Exam: Positive: Diminished, Other (bilateral difuse crackles. ); Negative: Rales, Rhonchi, Wheezing Heart Exam: Positive: Rate Normal, Irregular Rhythm, Normal S1, Normal S2; Negative: Murmurs, Rubs Telemetry: Positive: Atrial fibrillation Abdomen Exam: Positive: Normal bowel sounds, Soft; Negative: Tenderness Extremity Exam: Negative: Clubbing, Cyanosis, Edema Psych Exam: Positive: Memory Intact, Oriented x 3 Assessment /Plan Assessment This is a 75 year of female with PMH of Chronic Atrial fibrillation (s/p ablation & Cardioversion), Sick sinus syndrome (pacemaker placement), IDDM w Gastroparesis, Essential HTN, Chronic HFpEF, DLP, Amiodarone induced pulmonary fibrosis, Hypothyroidism, DEVEN, CKD 3, GERD, Macular degeneration, Follicular NHL (remission), Chronic Asthma, Right parathyroidectomy, left corneal transplant, Vitreous hemorrhage (s/p Bilateral vitrectomy), resection of facial BCC, presented to the ED for shortness of breath, cough, chest / back / shoulder tightness due to coughing, chills and vomiting. Because of the vomiting she hasnt been able to keep any food down. She was found to be COVID positive on 02/04/21 despite recieving 2 doses of Moderna vaccine. Of note her daughter and son in law, who came from [place] on , were diagnosed with COVID. She was destating to 88% with ambulation. She was admitted for COVID pneumonia with acute respiratory failure with hypoxia. Her oxygenation continued to worsen now requiring 12 liters. COVID-19 pneumonia with acute hypoxic respiratory failure Dexamethasone, remdesivir and Olumiant Duonebs Zofran for her nausea and vomiting. Asthma exacerbation Secondary to COVID-19. Continue with steroids and duo nebs. Insulin-dependent diabetes mellitus Resume basal regimen for better blood glucose control. Continue with ac/hs Accu-Cheks, hypoglycemic protocol, and sliding scale. A fib with RVR / Sick sinus syndrome w pacemaker Likely exacerbated secondary to underlying infection. Heart rate is now well controlled with her ambulatory medication resumed including bisoprolol, digoxin and diltiazem. Continue systemic anticoagulation with apixaban DHARMESH on chronic kidney disease stage III Ultrasound showed chronic medical renal disease with no evidence of hydronephrosis. Appears euvolemic to hypovolemic will hold lasix for now. Exacerbation of chronic HFpEF resolved. Now euvolemic. Daily weights, I's/O, will hold lasix for now. Essential HTN Blood pressure is well controlled. Continue with bisoprolol and diltiazem. Her chlorthalidone, spironolactone, and losartan for acute on chronic kidney disease. Hypothyroidism Continue with levothyroxine DEVEN Patient should be using her old CPAP during hospitalization. 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 vision loss c/w MTX & Folic Acid on discharge Plan/VTE VTE Prophylaxis Ordered?: Yes VS, I&O, [facility]O Vital Signs Date Time Temp Pulse Resp B/P (MAP) Pulse Ox O2 Delivery O2 Flow Rate FiO2 02/08/21 21:52 91 High Flow Cannula 12.0 02/08/21 14:00 97.8 89 18 02/08/21 09:07 133/60 I&O- Last 24 Hours up to 6 AM 02/08/21 07:00 Intake Total 720 ml Output Total 1700 ml Balance -980 ml Laboratory Data 24H LABS Laboratory Tests 2 02/08/21 00:02: Bedside Glucose (Misc Panel) 253H 02/08/21 05:39: Nucleated Red Blood Cells % (auto) 0.0, Prothrombin Time 18.8H, Prothromb Time International Ratio 1.53, Activated Partial Thromboplast Time 30.1, Fibrinogen 406, Anion Gap 6L, Glomerular Filtration Rate 35.2L, Calcium Level 8.0L, Magnesium Level 2.2, Ferritin 801H, Total Bilirubin 0.6, Direct Bilirubin 0.2, Aspartate Amino Transf (AST/SGOT) 45H, Alanine Aminotransferase (ALT/SGPT) 47, Alkaline Phosphatase 101, Lactate Dehydrogenase 657H, Total Creatine Kinase 328H, Troponin I 0.02, UN-Pfs-Q-Type Natriuretic Peptide 4823H, Total Protein 5.4L, Albumin 2.5L, Albumin/Globulin Ratio 0.9L, Procalcitonin <0.05 02/08/21 11:45: Bedside Glucose (Misc Panel) 295H 02/08/21 16:47: Bedside Glucose (Misc Panel) 225H 02/08/21 19:34: Bedside Glucose (Misc Panel) 172H CBC/BMP Laboratory Tests 02/08/21 05:39 Microbiology Microbiology 02/04/21 Blood Culture - Preliminary, Resulted No Growth after 72 hours. All specime... 02/04/21 Respiratory Virus Panel (PCR) (BOB) - Final, Complete SARS-CoV-2 (COVID 19) Emmanuelle Betancourt MD Feb 08, 2021 22:22
[2021-02-08] MEDS: SODIUM CHLORIDE 0.9% INJ 10 ML SYR IV SCH (23:07)
[2021-02-09] MEDS: IPRATROPIUM 0.5MG/ALBUTEROL 2.5MG INH SOL UD 3ML (DUONEB) NEB SCH ×4 (02:53→19:49)
[2021-02-09 05:00] VITALS: BP 151/67
[2021-02-09 07:25] LABS: HEMATOCRIT 35.8 % (36.0-47.0); HEMOGLOBIN 11.6 g/dl (12.0-15.5); MEAN CORPUSCULAR HEMOGLOBIN 29.1 pg (27.0-33.0); MEAN CORPUSCULAR HGB CONC 32.4 g/dl (32.0-36.5); MEAN CORPUSCULAR VOLUME 89.9 fl (80.0-96.0); PLATELET COUNT, AUTOMATED 276 10^3/uL (150-450); RED BLOOD COUNT 3.98 10^6/uL (4.00-5.40); WHITE BLOOD COUNT 9.4 10^3/uL (4.0-10.0)
[2021-02-09 07:40] LABS: CALCIUM LEVEL 8.4 MG/DL (8.8-10.2); CREATININE FOR GFR 1.29 MG/DL (0.55-1.30); GLOMERULAR FILTRATION RATE 43.1 (>39); MAGNESIUM LEVEL 2.2 MG/DL (1.8-2.4)
[2021-02-09 08:20] VITALS: O2SAT 97
[2021-02-09] MEDS: BENZONATATE 100MG CAPSULE PO SCH ×3 (08:30→20:11)
[2021-02-09] MEDS: bisoproloL fumarate 10 MG TAB PO SCH (08:31)
[2021-02-09] MEDS: OYSTER SHELL CALCIUM 500 MG TAB PO SCH (08:31)
[2021-02-09] MEDS: OMEPRAZOLE 20 MG CAP PO SCH (08:31)
[2021-02-09] MEDS: HumaLOG INSULIN (NovoLOG) PER UNIT SC SCH ×4 (08:32→20:07)
[2021-02-09] MEDS: dexameTHASONE 20MG/5ML VIAL (J1100 PER 1MG) IV SCH ×2 (08:32→20:06)
[2021-02-09] MEDS: FOLIC ACID 1 MG TAB PO SCH (08:34)
[2021-02-09] MEDS: DIGOXIN 0.125 MG TAB PO SCH (08:34)
[2021-02-09] MEDS: APIXABAN 5 MG TAB (ELIQUIS) PO SCH ×2 (08:34→20:06)
[2021-02-09] MEDS: BARICITINIB 2MG TABLET (OLUMIANT) FOR EUA PO SCH (08:34)
[2021-02-09] MEDS: ASPIRIN 81MG ENTERIC TABLET PO SCH (08:35)
[2021-02-09] MEDS: LEVEMIR (INSULIN DETEMIR) 1 UNITS/0.01ML SC SCH (08:37)
--- NOTE | 2021-02-09 11:27 | IPNPDOC ---
Subjective Date Seen The patient was seen on 02/09/21. Subjective Chief Complaint/HPI Patient's oxygenation continues to worsen she is now needing Vapotherm at 40 L / 85%. No new events overnight Objective Physical Examination General Exam: Positive: Alert, Cooperative, Other (Has conversational dyspnea.) Eye Exam: Positive: PERRLA, Conjunctiva & lids normal, EOMI; Negative: Sclera icteric Neck Exam: Positive: Supple; Negative: JVD, thyromegaly Chest Exam: Positive: Diminished, Other (bilateral difuse crackles. ); Negative: Rales, Rhonchi, Wheezing Heart Exam: Positive: Rate Normal, Irregular Rhythm, Normal S1, Normal S2; Negative: Murmurs, Rubs Telemetry: Positive: Atrial fibrillation Abdomen Exam: Positive: Normal bowel sounds, Soft; Negative: Tenderness Extremity Exam: Negative: Clubbing, Cyanosis, Edema Psych Exam: Positive: Memory Intact, Oriented x 3 Assessment /Plan Assessment This is a 75 year of female with PMH of Chronic Atrial fibrillation (s/p ablation & Cardioversion), Sick sinus syndrome (pacemaker placement), IDDM w Gastroparesis, Essential HTN, Chronic HFpEF, DLP, Amiodarone induced pulmonary fibrosis, Hypothyroidism, DEVEN, CKD 3, GERD, Macular degeneration, Follicular NHL (remission), Chronic Asthma, Right parathyroidectomy, left corneal transplant, Vitreous hemorrhage (s/p Bilateral vitrectomy), resection of facial BCC, presented to the ED for shortness of breath, cough, chest / back / shoulder tightness due to coughing, chills and vomiting. Because of the vomiting she hasnt been able to keep any food down. She was found to be COVID positive on 02/04/21 despite recieving 2 doses of Moderna vaccine. Of note her daughter and son in law, who came from [place] on , were diagnosed with COVID. She was destating to 88% with ambulation. She was admitted for COVID pneumonia with acute respiratory failure with hypoxia. Her oxygenation continues to worsen and now she is needing Vapotherm. COVID-19 pneumonia with acute hypoxic respiratory failure Dexamethasone, remdesivir and Olumiant Duonebs Zofran for her nausea and vomiting. Asthma exacerbation Secondary to COVID-19. Continue with steroids and duo nebs. Insulin-dependent diabetes mellitus Resume basal regimen for better blood glucose control. Continue with ac/hs Accu-Cheks, hypoglycemic protocol, and sliding scale. A fib with RVR / Sick sinus syndrome w pacemaker Likely exacerbated secondary to underlying infection. Heart rate is now well controlled with her ambulatory medication resumed including bisoprolol, digoxin and diltiazem. Continue systemic anticoagulation with apixaban DHARMESH on chronic kidney disease stage III Ultrasound showed chronic medical renal disease with no evidence of hydronephrosis. Appears euvolemic to hypovolemic will hold lasix for now. Exacerbation of chronic HFpEF resolved. Now euvolemic. Daily weights, I's/O, will hold lasix for now. Essential HTN Blood pressure is well controlled. Continue with bisoprolol and diltiazem. Her chlorthalidone, spironolactone, and losartan for acute on chronic kidney disease. Hypothyroidism Continue with levothyroxine DEVEN Patient should be using her old CPAP during hospitalization. 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 vision loss c/w MTX & Folic Acid on discharge Plan/VTE VTE Prophylaxis Ordered?: Yes VS, I&O, 24H, Fishbone Vital Signs/I&O Vital Signs Date Time Temp Pulse Resp B/P (MAP) Pulse Ox O2 Delivery O2 Flow Rate FiO2 02/09/21 09:45 97 HVNI-Vapotherm 30.0 85 02/09/21 08:37 77 151/57 02/09/21 05:00 97.4 22 I&O- Last 24 Hours up to 6 AM 02/09/21 06:00 Intake Total 1110 ml Output Total 600 ml Balance 510 ml Laboratory Data 24H LABS Laboratory Tests 2 02/08/21 11:45: Bedside Glucose (Misc Panel) 295H 02/08/21 16:47: Bedside Glucose (Misc Panel) 225H 02/08/21 19:34: Bedside Glucose (Misc Panel) 172H 02/09/21 06:02: Nucleated Red Blood Cells % (auto) 0.0, Anion Gap 6L, Glomerular Filtration Rate 43.1, Calcium Level 8.4L, Magnesium Level 2.2 CBC/BMP Laboratory Tests 02/09/21 06:02 Microbiology Microbiology 02/04/21 Blood Culture - Preliminary, Resulted No Growth after 72 hours. All specime... 02/04/21 Respiratory Virus Panel (PCR) (BOB) - Final, Complete SARS-CoV-2 (COVID 19) Emmanuelle Betancourt MD Feb 09, 2021 11:27
[2021-02-09 14:00] VITALS: BP 135/60
[2021-02-09] MEDS: ATORVASTATIN 20 MG TAB PO SCH (20:07)
[2021-02-09 20:19] VITALS: BP 166/72
[2021-02-09] MEDS: LEVALBUTEROL 1.25 MG/0.5 ML CONCENTRATE NEB INH PRN (22:56)
[2021-02-10] MEDS: IPRATROPIUM 0.5MG/ALBUTEROL 2.5MG INH SOL UD 3ML (DUONEB) NEB SCH ×4 (02:00→20:07)
[2021-02-10 06:44] VITALS: BP 159/69
[2021-02-10] MEDS: LEVOTHYROXINE 137MCG TABLET (0.137MG) PO SCH (06:47)
[2021-02-10] MEDS: BENZONATATE 100MG CAPSULE PO SCH ×3 (06:47→20:50)
[2021-02-10 07:07] LABS: HEMATOCRIT 36.9 % (36.0-47.0); HEMOGLOBIN 12.1 g/dl (12.0-15.5); MEAN CORPUSCULAR HEMOGLOBIN 28.8 pg (27.0-33.0); MEAN CORPUSCULAR HGB CONC 32.8 g/dl (32.0-36.5); MEAN CORPUSCULAR VOLUME 87.9 fl (80.0-96.0); PLATELET COUNT, AUTOMATED 328 10^3/uL (150-450); WHITE BLOOD COUNT 22.9 10^3/uL (4.0-10.0)
[2021-02-10 07:18] LABS: INR 1.56; PROTHROMBIN TIME 19.1 SECONDS (12.7-14.5)
[2021-02-10 07:19] LABS: PARTIAL THROMBOPLASTIN TIME 28.1 SECONDS (25.9-37.0)
[2021-02-10] MEDS: HumaLOG INSULIN (NovoLOG) PER UNIT SC SCH ×4 (07:30→20:52)
[2021-02-10 07:41] LABS: ALBUMIN 2.8 GM/DL (3.2-5.2); BILIRUBIN,DIRECT 0.2 MG/DL (0.0-0.2); BILIRUBIN,TOTAL 0.7 MG/DL (0.2-1.0); CALCIUM LEVEL 8.5 MG/DL (8.8-10.2); CREATININE FOR GFR 1.23 MG/DL (0.55-1.30); GLOMERULAR FILTRATION RATE 45.6 (>39); MAGNESIUM LEVEL 2.2 MG/DL (1.8-2.4); POTASSIUM SERUM 4.2 MEQ/L (3.5-5.1); TOTAL PROTEIN 5.3 GM/DL (6.4-8.2); TROPONIN I 0.04 NG/ML (< 0.10)
[2021-02-10] MEDS: LEVEMIR (INSULIN DETEMIR) 1 UNITS/0.01ML SC SCH (08:29)
[2021-02-10] MEDS: dexameTHASONE 20MG/5ML VIAL (J1100 PER 1MG) IV SCH ×2 (09:21→20:51)
[2021-02-10] MEDS: BARICITINIB 2MG TABLET (OLUMIANT) FOR EUA PO SCH (09:21)
[2021-02-10] MEDS: FOLIC ACID 1 MG TAB PO SCH (09:22)
[2021-02-10] MEDS: ASPIRIN 81MG ENTERIC TABLET PO SCH (09:22)
[2021-02-10] MEDS: APIXABAN 5 MG TAB (ELIQUIS) PO SCH ×2 (09:22→20:51)
[2021-02-10] MEDS: OMEPRAZOLE 20 MG CAP PO SCH (09:22)
[2021-02-10] MEDS: OYSTER SHELL CALCIUM 500 MG TAB PO SCH (09:22)
[2021-02-10] MEDS: DIGOXIN 0.125 MG TAB PO SCH (09:23)
[2021-02-10] MEDS: bisoproloL fumarate 10 MG TAB PO SCH (09:23)
--- NOTE | 2021-02-10 13:31 | IPNPDOC ---
Subjective Date Seen The patient was seen on 02/10/21. Subjective Chief Complaint/HPI Continues to need high levels of oxygenation. Currently using Vapotherm at 35 L/ 90%. Objective Physical Examination General Exam: Positive: Alert, Cooperative, No Acute Distress Eye Exam: Positive: PERRLA, Conjunctiva & lids normal, EOMI; Negative: Sclera icteric Neck Exam: Positive: Supple; Negative: JVD, thyromegaly Chest Exam: Positive: Diminished, Other (bilateral difuse crackles. ); Negative: Rales, Rhonchi, Wheezing Heart Exam: Positive: Rate Normal, Irregular Rhythm, Normal S1, Normal S2; Negative: Murmurs, Rubs Telemetry: Positive: Atrial fibrillation Abdomen Exam: Positive: Normal bowel sounds, Soft; Negative: Tenderness Extremity Exam: Negative: Clubbing, Cyanosis, Edema Psych Exam: Positive: Memory Intact, Oriented x 3 Assessment /Plan Assessment This is a 75 year of female with PMH of Chronic Atrial fibrillation (s/p ablation & Cardioversion), Sick sinus syndrome (pacemaker placement), IDDM w Gastroparesis, Essential HTN, Chronic HFpEF, DLP, Amiodarone induced pulmonary fibrosis, Hypothyroidism, DEVEN, CKD 3, GERD, Macular degeneration, Follicular NHL (remission), Chronic Asthma, Right parathyroidectomy, left corneal transplant, Vitreous hemorrhage (s/p Bilateral vitrectomy), resection of facial BCC, presented to the ED for shortness of breath, cough, chest / back / shoulder tightness due to coughing, chills and vomiting. Because of the vomiting she hasnt been able to keep any food down. She was found to be COVID positive on 02/04/21 despite recieving 2 doses of Moderna vaccine. Of note her daughter and son in law, who came from [place] on , were diagnosed with COVID. She was desaturating to 88% with ambulation. She was admitted for COVID pneumonia with acute respiratory failure with hypoxia. Her oxygenation continues to worsen and now she is needing Vapotherm. COVID-19 pneumonia with acute hypoxic respiratory failure Dexamethasone, remdesivir and Olumiant Duonebs Zofran for her nausea and vomiting. Leukocytosis With no elevation of procalcitonin This is likely due to steroids Asthma exacerbation Secondary to COVID-19. Continue with steroids and duo nebs. Insulin-dependent diabetes mellitus Resume basal regimen for better blood glucose control. Continue with ac/hs Accu-Cheks, hypoglycemic protocol, and sliding scale. A fib with RVR / Sick sinus syndrome w pacemaker Likely exacerbated secondary to underlying infection. Heart rate is now well controlled with her ambulatory medication resumed including bisoprolol, digoxin and diltiazem. Continue systemic anticoagulation with apixaban DHARMESH on chronic kidney disease stage III Ultrasound showed chronic medical renal disease with no evidence of h ydronephrosis. Appears euvolemic to hypovolemic will hold lasix for now. Exacerbation of chronic HFpEF resolved. Now euvolemic. Daily weights, I's/O, will hold lasix for now. Essential HTN Blood pressure is well controlled. Continue with bisoprolol and diltiazem. Her chlorthalidone, spironolactone, and losartan for acute on chronic kidney disease. Hypothyroidism Continue with levothyroxine DEVEN Patient should be using her old CPAP during hospitalization. 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0, Prothrombin Time 19.1H, Prothromb Time International Ratio 1.56, Activated Partial Thromboplast Time 28.1, Fibrinogen 438, Anion Gap 7L, Glomerular Filtration Rate 45.6, Calcium Level 8.5L, Magnesium Level 2.2, Ferritin 768H, Total Bilirubin 0.7, Direct Bilirubin 0.2, Aspartate Amino Transf (AST/SGOT) 32, Alanine Aminotransferase (ALT/SGPT) 48, Alkaline Phosphatase 147H, Lactate Dehydrogenase 680H, Total Creatine Kinase 192, Troponin I 0.04, GD-Nyv-N-Type Natriuretic Peptide 7335H, Total Protein 5.3L, Albumin 2.8L, Albumin/Globulin Ratio 1.1L, Procalcitonin 0.05 02/10/21 12:39: Bedside Glucose (Misc Panel) 115H CBC/BMP Laboratory Tests 02/10/21 05:42 Microbiology Microbiology 02/04/21 Blood Culture - Final, Complete NO GROWTH AFTER 5 DAYS 02/04/21 Respiratory Virus Panel (PCR) (BOB) - Final, Complete SARS-CoV-2 (COVID 19) Emmanuelle Betancourt MD Feb 10, 2021 13:31
[2021-02-10 14:00] VITALS: BP 150/67
[2021-02-10] MEDS: ATORVASTATIN 20 MG TAB PO SCH (20:51)
[2021-02-11] MEDS: IPRATROPIUM 0.5MG/ALBUTEROL 2.5MG INH SOL UD 3ML (DUONEB) NEB SCH ×4 (02:00→20:24)
[2021-02-11 04:00] VITALS: BP 167/66
[2021-02-11] MEDS: BENZONATATE 100MG CAPSULE PO SCH ×3 (06:31→21:05)
[2021-02-11] MEDS: LEVOTHYROXINE 137MCG TABLET (0.137MG) PO SCH (06:31)
[2021-02-11] MEDS: OMEPRAZOLE 20 MG CAP PO SCH (08:34)
[2021-02-11] MEDS: BARICITINIB 2MG TABLET (OLUMIANT) FOR EUA PO SCH (08:35)
[2021-02-11] MEDS: OYSTER SHELL CALCIUM 500 MG TAB PO SCH (08:35)
[2021-02-11] MEDS: bisoproloL fumarate 10 MG TAB PO SCH (08:35)
[2021-02-11] MEDS: FOLIC ACID 1 MG TAB PO SCH (08:35)
[2021-02-11 08:36] LABS: HEMATOCRIT 35.5 % (36.0-47.0); HEMOGLOBIN 11.7 g/dl (12.0-15.5); MEAN CORPUSCULAR HEMOGLOBIN 29.3 pg (27.0-33.0); PLATELET COUNT, AUTOMATED 279 10^3/uL (150-450); RED BLOOD COUNT 3.99 10^6/uL (4.00-5.40); WHITE BLOOD COUNT 14.8 10^3/uL (4.0-10.0)
[2021-02-11] MEDS: HumaLOG INSULIN (NovoLOG) PER UNIT SC SCH ×4 (08:36→21:05)
[2021-02-11] MEDS: APIXABAN 5 MG TAB (ELIQUIS) PO SCH ×2 (08:36→21:05)
[2021-02-11] MEDS: DIGOXIN 0.125 MG TAB PO SCH (08:36)
[2021-02-11] MEDS: dexameTHASONE 20MG/5ML VIAL (J1100 PER 1MG) IV SCH ×2 (08:36→21:05)
[2021-02-11] MEDS: ASPIRIN 81MG ENTERIC TABLET PO SCH (08:36)
[2021-02-11] MEDS: LEVEMIR (INSULIN DETEMIR) 1 UNITS/0.01ML SC SCH (08:37)
[2021-02-11 08:48] LABS: CALCIUM LEVEL 8.2 MG/DL (8.8-10.2); CREATININE FOR GFR 1.27 MG/DL (0.55-1.30); GLOMERULAR FILTRATION RATE 43.9 (>39); MAGNESIUM LEVEL 2.3 MG/DL (1.8-2.4); POTASSIUM SERUM 4.7 MEQ/L (3.5-5.1)
--- NOTE | 2021-02-11 13:24 | IPNPDOC ---
Subjective Date Seen The patient was seen on 02/11/21. Subjective Chief Complaint/HPI Oxygen requirement about the same as yesterday no worsening. Sugars remain uncontrolled over 400s. She does say that after desaturating following movement or any activity she is recovering faster than before. Her appetite seems to be good. Objective Physical Examination General Exam: Positive: Alert, Cooperative, No Acute Distress Eye Exam: Positive: PERRLA, Conjunctiva & lids normal, EOMI; Negative: Sclera icteric Neck Exam: Positive: Supple; Negative: JVD, thyromegaly Chest Exam: Positive: Diminished, Other (bilateral difuse crackles. ); Negative: Rales, Rhonchi, Wheezing Heart Exam: Positive: Rate Normal, Irregular Rhythm, Normal S1, Normal S2; Negative: Murmurs, Rubs Telemetry: Positive: Atrial fibrillation Abdomen Exam: Positive: Normal bowel sounds, Soft; Negative: Tenderness Extremity Exam: Negative: Clubbing, Cyanosis, Edema Psych Exam: Positive: Memory Intact, Oriented x 3 Assessment /Plan Assessment This is a 75 year of female with PMH of Chronic Atrial fibrillation (s/p ablation & Cardioversion), Sick sinus syndrome (pacemaker placement), IDDM w Gastroparesis, Essential HTN, Chronic HFpEF, DLP, Amiodarone induced pulmonary fibrosis, Hypothyroidism, DEVEN, CKD 3, GERD, Macular degeneration, Follicular NHL (remission), Chronic Asthma, Right parathyroidectomy, left corneal transplant, Vitreous hemorrhage (s/p Bilateral vitrectomy), resection of facial BCC, presented to the ED for shortness of breath, cough, chest / back / shoulder tightness due to coughing, chills and vomiting. Because of the vomiting she hasnt been able to keep any food down. She was found to be COVID positive on 02/04/21 despite recieving 2 doses of Moderna vaccine. Of note her daughter and son in law, who came from [place] on , were diagnosed with COVID. She was desaturating to 88% with ambulation. She was admitted for COVID pneumonia with acute respiratory failure with hypoxia. Her oxygenation continues to worsen and now she is needing Vapotherm. COVID-19 pneumonia with acute hypoxic respiratory failure Dexamethasone, remdesivir and Olumiant Duonebs Zofran for her nausea and vomiting. Leukocytosis With no elevation of procalcitonin This is likely due to steroids Asthma exacerbation Secondary to COVID-19. Continue with steroids and duo nebs. Insulin-dependent diabetes mellitus Resume basal regimen for better blood glucose control. Continue with ac/hs Accu-Cheks, hypoglycemic protocol, and sliding scale. A fib with RVR / Sick sinus syndrome w pacemaker Likely exacerbated secondary to underlying infection. Heart rate is now well controlled with her ambulatory medication resumed including bisoprolol, digoxin and diltiazem. Continue systemic anticoagulation with apixaban DHARMESH on chronic kidney disease stage III Ultrasound showed chronic medical renal disease with no evidence of hydronephrosis. Appears euvolemic to hypovolemic will hold lasix for now. Exacerbation of chronic HFpEF resolved. Now euvolemic to hypovolemic probably due to osmotic diuresis Daily weights, I's/O, will hold lasix for now. We will give a bolus of fluid. Essential HTN Blood pressure is well controlled. Continue with bisoprolol and diltiazem. Her chlorthalidone, spironolactone, and losartan are held for acute on chronic kidney disease. Hypothyroidism Continue with levothyroxine DEVEN Patient should be using her old CPAP during hospitalization. 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 vision loss c/w MTX & Folic Acid on discharge Plan/VTE VTE Prophylaxis Ordered?: Yes VS, I&O, 24H, Fishbone Vital Signs/I&O Vital Signs Date Time Temp Pulse Resp B/P (MAP) Pulse Ox O2 Delivery O2 Flow Rate FiO2 02/11/21 09:00 92 HVNI-Vapotherm 30.0 60 02/11/21 08:36 80 02/11/21 08:35 167/66 02/11/21 04:00 97.3 22 I&O- Last 24 Hours up to 6 AM 02/11/21 06:00 Intake Total 960 ml Balance 960 ml Laboratory Data 24H LABS Laboratory Tests 2 02/10/21 17:25: Bedside Glucose (Misc Panel) 223H 02/10/21 20:14: Bedside Glucose (Misc Panel) 310H 02/11/21 06:30: Bedside Glucose (Misc Panel) 352H 02/11/21 07:43: Nucleated Red Blood Cells % (auto) 0.0, Anion Gap 7L, Glomerular Filtration Rate 43.9, Calcium Level 8.2L, Magnesium Level 2.3 02/11/21 11:33: Bedside Glucose (Misc Panel) 421H CBC/BMP Laboratory Tests 02/11/21 07:43 Microbiology Microbiology 02/04/21 Blood Culture - Final, Complete NO GROWTH AFTER 5 DAYS 02/04/21 Respiratory Virus Panel (PCR) (BOB) - Final, Complete SARS-CoV-2 (COVID 19) Emmanuelle Betancourt MD Feb 11, 2021 13:24
[2021-02-11 14:00] VITALS: BP 145/64
[2021-02-11] MEDS ORDERED: SODIUM CHLORIDE 0.9% 1000ML IV ONE (14:00)
[2021-02-11] MEDS ORDERED: LEVEMIR (INSULIN DETEMIR) 1 UNITS/0.01ML SC SCH ×2 (21:00)
[2021-02-11] MEDS: ATORVASTATIN 20 MG TAB PO SCH (21:05)
[2021-02-11 22:00] VITALS: BP 158/68
[2021-02-12] MEDS: IPRATROPIUM 0.5MG/ALBUTEROL 2.5MG INH SOL UD 3ML (DUONEB) NEB SCH ×5 (01:56→20:15)
[2021-02-12 05:46] VITALS: BP 152/67
[2021-02-12] MEDS: BENZONATATE 100MG CAPSULE PO SCH ×3 (06:31→21:30)
[2021-02-12] MEDS: LEVOTHYROXINE 137MCG TABLET (0.137MG) PO SCH (06:31)
[2021-02-12 06:50] LABS: HEMATOCRIT 35.4 % (36.0-47.0); HEMOGLOBIN 11.3 g/dl (12.0-15.5); MEAN CORPUSCULAR HEMOGLOBIN 28.9 pg (27.0-33.0); MEAN CORPUSCULAR HGB CONC 31.9 g/dl (32.0-36.5); MEAN CORPUSCULAR VOLUME 90.5 fl (80.0-96.0); PLATELET COUNT, AUTOMATED 259 10^3/uL (150-450); RED BLOOD COUNT 3.91 10^6/uL (4.00-5.40); WHITE BLOOD COUNT 16.1 10^3/uL (4.0-10.0)
[2021-02-12 07:03] LABS: CALCIUM LEVEL 8.2 MG/DL (8.8-10.2); CREATININE FOR GFR 1.06 MG/DL (0.55-1.30); GLOMERULAR FILTRATION RATE 54.1 (>39); MAGNESIUM LEVEL 2.2 MG/DL (1.8-2.4); POTASSIUM SERUM 4.6 MEQ/L (3.5-5.1)
[2021-02-12] MEDS: HumaLOG INSULIN (NovoLOG) PER UNIT SC SCH ×4 (07:30→21:00)
[2021-02-12] MEDS: LEVEMIR (INSULIN DETEMIR) 1 UNITS/0.01ML SC SCH (09:00)
[2021-02-12] MEDS: OMEPRAZOLE 20 MG CAP PO SCH (09:37)
[2021-02-12] MEDS: ASPIRIN 81MG ENTERIC TABLET PO SCH (09:38)
[2021-02-12] MEDS: DIGOXIN 0.125 MG TAB PO SCH (09:38)
[2021-02-12] MEDS: FOLIC ACID 1 MG TAB PO SCH (09:38)
[2021-02-12] MEDS: OYSTER SHELL CALCIUM 500 MG TAB PO SCH (09:38)
[2021-02-12] MEDS: APIXABAN 5 MG TAB (ELIQUIS) PO SCH ×2 (09:38→21:30)
[2021-02-12] MEDS: BARICITINIB 2MG TABLET (OLUMIANT) FOR EUA PO SCH (09:39)
[2021-02-12] MEDS: bisoproloL fumarate 10 MG TAB PO SCH (09:40)
[2021-02-12] MEDS: dexameTHASONE 20MG/5ML VIAL (J1100 PER 1MG) IV SCH ×2 (09:46→21:30)
[2021-02-12] MEDS ORDERED: FUROSEMIDE 40MG/4ML VIAL (J1940) As Ordered ONE (10:09)
[2021-02-12] MEDS: LEVALBUTEROL 1.25 MG/0.5 ML CONCENTRATE NEB INH PRN (10:14)
[2021-02-12] MEDS ORDERED: FUROSEMIDE 40MG/4ML VIAL (J1940) IV ONE (10:15)
[2021-02-12 10:42] VITALS: BP 175/80
[2021-02-12 11:21] VITALS: BP 172/67
[2021-02-12 12:04] VITALS: BP 132/97
--- NOTE | 2021-02-12 12:09 | IPNPDOC ---
Subjective Date Seen The patient was seen on 02/12/21. Subjective Chief Complaint/HPI Patient having increased difficulties in breathing this a.m. Oxygen requirement has gone up to 40 L /100%. She is having episodes of severe cough with some bronchospasm. Ordered 1 dose of Lasix and a nebulizer treatment. We will move her to ICU for closer monitoring. Have updated daughter Maryjane about change in patient's condition. Objective Physical Examination General Exam: Positive: Alert, Cooperative, No Acute Distress Eye Exam: Positive: PERRLA, Conjunctiva & lids normal, EOMI; Negative: Sclera icteric Neck Exam: Positive: Supple; Negative: JVD, thyromegaly Chest Exam: Positive: Diminished, Other (bilateral difuse crackles. ); Negative: Rales, Rhonchi, Wheezing Heart Exam: Positive: Rate Normal, Irregular Rhythm, Normal S1, Normal S2; Negative: Murmurs, Rubs Telemetry: Positive: Atrial fibrillation Abdomen Exam: Positive: Normal bowel sounds, Soft; Negative: Tenderness Extremity Exam: Negative: Clubbing, Cyanosis, Edema Psych Exam: Positive: Memory Intact, Oriented x 3 Assessment /Plan Assessment This is a 75 year of female with PMH of Chronic Atrial fibrillation (s/p ablation & Cardioversion), Sick sinus syndrome (pacemaker placement), IDDM w Gastroparesis, Essential HTN, Chronic HFpEF, DLP, Amiodarone induced pulmonary fibrosis, Hypothyroidism, DEVEN, CKD 3, GERD, Macular degeneration, Follicular NHL (remission), Chronic Asthma, Right parathyroidectomy, left corneal transplant, Vitreous hemorrhage (s/p Bilateral vitrectomy), resection of facial BCC, presented to the ED for shortness of breath, cough, chest / back / shoulder tightness due to coughing, chills and vomiting. Because of the vomiting she hasnt been able to keep any food down. She was found to be COVID positive on 02/04/21 despite recieving 2 doses of Moderna vaccine. Of note her daughter and son in law, who came from on , were diagnosed with COVID. She was desaturating to 88% with ambulation. She was admitted for COVID pneumonia with acute respiratory failure with hypoxia. Her oxygenation continues to worsen and now she is needing Vapotherm. COVID-19 pneumonia with acute hypoxic respiratory failure Dexamethasone, remdesivir and Olumiant Duonebs Zofran for her nausea and vomiting. Leukocytosis With no elevation of procalcitonin This is likely due to steroids Asthma exacerbation Secondary to COVID-19. Continue with steroids and duo nebs. Insulin-dependent diabetes mellitus Resume basal regimen for better blood glucose control. Continue with ac/hs Accu-Cheks, hypoglycemic protocol, and sliding scale. A fib with RVR / Sick sinus syndrome w pacemaker Likely exacerbated respiratory issues. continue bisoprolol, digoxin and diltiazem. Continue systemic anticoagulation with apixaban DHARMESH on chronic kidney disease stage III Ultrasound showed chronic medical renal disease with no evidence of hydronephrosis. Appears euvolemic Lasix as needed Exacerbation of chronic HFpEF resolved. Now euvolemic to hypovolemic probably due to osmotic diuresis Lasix as needed Essential HTN Blood pressure is well controlled. Continue with bisoprolol and diltiazem. Her chlorthalidone, spironolactone, and losartan are held for acute on chronic kidney disease. Hypothyroidism Continue with levothyroxine DEVEN Patient should be using her old CPAP during hospitalization. 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 vision loss c/w MTX & Folic Acid on discharge Plan/VTE VTE Prophylaxis Ordered?: Yes VS, I&O, 24H, Fishbone Vital Signs/I&O Vital Signs Date Time Temp Pulse Resp B/P (MAP) Pulse Ox O2 Delivery O2 Flow Rate FiO2 02/12/21 10:42 99.9 105 36 175/80 (111) 95 HVNI-Vapotherm 40.0 100 I&O- Last 24 Hours up to 6 AM 02/12/21 05:59 Intake Total 2130 ml Balance 2130 ml Laboratory Data 24H LABS Laboratory Tests 2 02/11/21 17:27: Bedside Glucose (Misc Panel) 341H 02/11/21 19:47: Bedside Glucose (Misc Panel) 315H 02/12/21 06:34: Nucleated Red Blood Cells % (auto) 0.0, Anion Gap 11, Glomerular Filtration Rate 54.1, Calcium Level 8.2L, Magnesium Level 2.2 02/12/21 10:04: Bedside Glucose (Misc Panel) 124H CBC/BMP Laboratory Tests 02/12/21 06:34 Microbiology Microbiology 02/04/21 Blood Culture - Final, Complete NO GROWTH AFTER 5 DAYS 02/04/21 Respiratory Virus Panel (PCR) ([facility]) - Final, Complete SARS-CoV-2 (COVID 19) Emmanuelle Betancourt MD Feb 12, 2021 12:05
[2021-02-12] MEDS: ACETAMINOPHEN TAB 650MG DOSE (2X325MG) PO PRN (14:49)
[2021-02-12 15:57] VITALS: BP 134/60
[2021-02-12 20:00] VITALS: BP 123/59
[2021-02-12] MEDS: ATORVASTATIN 20 MG TAB PO SCH (21:30)
[2021-02-13] VITALS (19 sets, daily range): BP systolic 140–158; BP diastolic 58–92; O2SAT 86–97
[2021-02-13] MEDS: IPRATROPIUM 0.5MG/ALBUTEROL 2.5MG INH SOL UD 3ML (DUONEB) NEB SCH ×4 (02:29→20:00)
[2021-02-13] MEDS: BENZONATATE 100MG CAPSULE PO SCH ×2 (05:13→13:05)
[2021-02-13] MEDS: LEVOTHYROXINE 137MCG TABLET (0.137MG) PO SCH (05:13)
[2021-02-13 05:20] LABS: HEMATOCRIT 34.7 % (36.0-47.0); HEMOGLOBIN 11.6 g/dl (12.0-15.5); MEAN CORPUSCULAR HEMOGLOBIN 29.4 pg (27.0-33.0); MEAN CORPUSCULAR HGB CONC 33.4 g/dl (32.0-36.5); MEAN CORPUSCULAR VOLUME 87.8 fl (80.0-96.0); PLATELET COUNT, AUTOMATED 275 10^3/uL (150-450); RED BLOOD COUNT 3.95 10^6/uL (4.00-5.40); WHITE BLOOD COUNT 15.1 10^3/uL (4.0-10.0)
[2021-02-13 05:42] LABS: CALCIUM LEVEL 7.4 MG/DL (8.8-10.2); CREATININE FOR GFR 1.4 MG/DL (0.55-1.30); GLOMERULAR FILTRATION RATE 39.2 (>39); MAGNESIUM LEVEL 2.6 MG/DL (1.8-2.4); POTASSIUM SERUM 4.6 MEQ/L (3.5-5.1)
[2021-02-13] MEDS: HumaLOG INSULIN (NovoLOG) PER UNIT SC SCH ×4 (07:30→21:34)
[2021-02-13] MEDS: OYSTER SHELL CALCIUM 500 MG TAB PO SCH (08:09)
[2021-02-13] MEDS: FOLIC ACID 1 MG TAB PO SCH (08:10)
[2021-02-13] MEDS: DIGOXIN 0.125 MG TAB PO SCH (08:10)
[2021-02-13] MEDS: BARICITINIB 2MG TABLET (OLUMIANT) FOR EUA PO SCH ×2 (08:10→16:50)
[2021-02-13] MEDS: dexameTHASONE 20MG/5ML VIAL (J1100 PER 1MG) IV SCH ×2 (08:11→21:34)
[2021-02-13] MEDS: APIXABAN 5 MG TAB (ELIQUIS) PO SCH ×2 (08:11→21:27)
[2021-02-13] MEDS: bisoproloL fumarate 10 MG TAB PO SCH (08:11)
[2021-02-13] MEDS: OMEPRAZOLE 20 MG CAP PO SCH (08:11)
[2021-02-13] MEDS: ASPIRIN 81MG ENTERIC TABLET PO SCH (08:11)
[2021-02-13] MEDS: LEVEMIR (INSULIN DETEMIR) 1 UNITS/0.01ML SC SCH (08:12)
--- NOTE | 2021-02-13 11:51 | REP ---
INDICATION: Hypoxemia. COMPARISON: Portable chest, 02/04/2021. TECHNIQUE: Upright AP portable chest image was obtained. FINDINGS: There is mixed interstitial and alveolar lung disease consistent with pneumonia and or pulmonary edema. There is cardiomegaly and pulmonary venous hypertension and there may be some element of superimposed congestive heart failure. There are no significant pleural effusions. There is a multi lead pacemaker. IMPRESSION: 1. Findings consistent with diffuse pneumonia/pulmonary edema, COVID related pneumonia not excluded. 2. There may be some superimposed element of congestive heart failure. 3. Pacemaker. <Electronically signed by Blaine Wilhelm > 02/13/21 1144
[2021-02-13] MEDS: ACETAMINOPHEN TAB 650MG DOSE (2X325MG) PO PRN (13:35)
[2021-02-13 14:08] LABS: DIGOXIN LEVEL 1.9 NG/ML (0.5-2.0)
[2021-02-13] MEDS ORDERED: ALPRAZolam 0.25 MG TAB PO PRN (14:20)
--- NOTE | 2021-02-13 14:30 | IPNPDOC ---
Subjective Date Seen The patient was seen on 02/13/21. Subjective Chief Complaint/HPI Continued to require 40 l/100% overnight with desaturations. Continues to have a hacking cough with some phlegm production. Was seen by pulmonary and placed on BIPAP. Objective Physical Examination General Exam: Positive: Alert, Cooperative, No Acute Distress Eye Exam: Positive: PERRLA, Conjunctiva & lids normal, EOMI; Negative: Sclera icteric Neck Exam: Positive: Supple; Negative: JVD, thyromegaly Chest Exam: Positive: Diminished, Other (bilateral difuse crackles. ); Negative: Rales, Rhonchi, Wheezing Heart Exam: Positive: Rate Normal, Irregular Rhythm, Normal S1, Normal S2; Negative: Murmurs, Rubs Telemetry: Positive: Atrial fibrillation Abdomen Exam: Positive: Normal bowel sounds, Soft; Negative: Tenderness Extremity Exam: Negative: Clubbing, Cyanosis, Edema Psych Exam: Positive: Memory Intact, Oriented x 3 Assessment /Plan Assessment This is a 75 year of female with PMH of Chronic Atrial fibrillation (s/p ablation & Cardioversion), Sick sinus syndrome (pacemaker placement), IDDM w Gastroparesis, Essential HTN, Chronic HFpEF, DLP, Amiodarone induced pulmonary fibrosis, Hypothyroidism, DEVEN, CKD 3, GERD, Macular degeneration, Follicular NHL (remission), Chronic Asthma, Right parathyroidectomy, left corneal transplant, Vitreous hemorrhage (s/p Bilateral vitrectomy), resection of facial BCC, presented to the ED for shortness of breath, cough, chest / back / shoulder tightness due to coughing, chills and vomiting. Because of the vomiting she hasnt been able to keep any food down. She was found to be COVID positive on 02/04/21 despite recieving 2 doses of Moderna vaccine. Of note her daughter and son in law, who came from [place] on , were diagnosed with COVID. She was desaturating to 88% with ambulation. She was admitted for COVID pneumonia with acute respiratory failure with hypoxia. Her oxygenation continues to worsen so will place her on BIPAP. COVID-19 pneumonia with acute hypoxic respiratory failure Dexamethasone, remdesivir and Olumiant, Duonebs Zofran for her nausea and vomiting. Leukocytosis With no elevation of procalcitonin on 02/13 Asthma exacerbation Secondary to COVID-19. Continue with steroids and duo nebs. Insulin-dependent diabetes mellitus Poor oral intake, isulin dose adjusted. A fib with RVR / Sick sinus syndrome w pacemaker Likely exacerbated respiratory issues. continue bisoprolol, digoxin and diltiazem. Continue systemic anticoagulation with apixaban DHARMESH on chronic kidney disease stage III resolved Ultrasound showed chronic medical renal disease with no evidence of hydronephrosis. Appears euvolemic to hypovolemia Lasix as needed Exacerbation of chronic HFpEF resolved. Now euvolemic to hypovolemic Lasix as needed Essential HTN Blood pressure is well controlled. Continue with bisoprolol and diltiazem. Her chlorthalidone, spironolactone, and losartan are held for acute on chronic kidney disease. 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 vision loss c/w MTX & Folic Acid on discharge Plan/VTE VTE Prophylaxis Ordered?: Yes VS, I&O, 24H, Fishbone Vital Signs/I&O Vital Signs Date Time Temp Pulse Resp B/P (MAP) Pulse Ox O2 Delivery O2 Flow Rate FiO2 02/13/21 11:41 98.6 85 24 145/92 (109) 91 HVNI-Vapotherm 40.0 100 I&O- Last 24 Hours up to 6 AM 02/13/21 06:00 Intake Total 540 ml Output Total 750 ml Balance -210 ml Laboratory Data 24H LABS Laboratory Tests 2 02/12/21 12:00: Bedside Glucose (Misc Panel) 136H 02/12/21 17:04: Bedside Glucose (Misc Panel) 89 02/12/21 21:20: Bedside Glucose (Misc Panel) 117H 02/13/21 05:04: Nucleated Red Blood Cells % (auto) 0.0, Anion Gap 4L, Glomerular Filtration Rate 39.2, Calcium Level 7.4L, Magnesium Level 2.6H 02/13/21 11:40: Bedside Glucose (Misc Panel) 165H CBC/BMP Laboratory Tests 02/13/21 05:04 Microbiology Microbiology 02/04/21 Blood Culture - Final, Complete NO GROWTH AFTER 5 DAYS 02/04/21 Respiratory Virus Panel (PCR) ([facility]) - Final, Complete SARS-CoV-2 (COVID 19) Emmanuelle Betancourt MD Feb 13, 2021 11:55
--- NOTE | 2021-02-13 19:23 | IPN ---
PROGRESS NOTE DATE: 02/13/2021 START TIME: 11:55 STOP TIME:12:42 SUBJECTIVE: I was asked to attend Judy Vega here in the intensive care unit. The patient has been examined, chart reviewed. This was performed with the nurse at the bedside, as well as with Dr. Betancourt regarding her status. In essence, this is a 75-year-old female, despite getting two doses of Moderna vaccine for COVID, was diagnosed with COVID pneumonia on the day of admission on the of this month. She has been treated appropriately, but despite that over the past 24 to 48 hours, has had increasing shortness of breath with increasing FiO2 requirements. Currently, she is on Decadron 6 mg twice daily, baricitinib at 1 mg daily. She completed a course of remdesivir. Until 40 hours ago was actually on 10 mg twice daily of Decadron. Currently, she is on max dose Vapotherm and while on her side is saturating 93%, but is quite tachypneic. She complains of dyspnea. She has been afebrile. Blood pressure remains in the 140s to 150s, heart rate 80s to 90s. Respiratory rate current 28 to 32. Input and output has been fairly matched since admission, although on the she was a liter and a half positive, on the 2 1/2 liters positive. Most recent laboratory shows a sodium 143, potassium 4.6, chloride 108, Co2 31, BUN 54, creatinine 1.4, glucose 123. White blood cell count 15.1, hemoglobin 11.6, platelet count 275,000. No recent blood gas. Her inflammatory markers are pending. She had a D-dimer done on admission, which was 804. Most recent ferritin done on the was 768, down from 1,147 on the , was 681 on admission. Most recent chest x-ray done today shows her pacemaker with significant increase in interstitial markings compared to her film on admission. These findings are diffuse. Her history is also significant for history of atrial fibrillation, indwelling pacemaker, insulin dependent diabetes mellitus, underlying heart failure, difficulties with amiodarone, obstructive sleep apnea syndrome and history of follicular non-Hodgkin's lymphoma, as well as underlying asthma. OBJECTIVE: On examination, she is tachypneic as outlined above. Pupils reactive. Sclerae clear. Trachea is midline. Chest shows some dependent crackles, but no wheeze or rhonchus. Expansion diminished, but symmetric. Cardiac examination is generally regular. Peripheral pulses diminished but palpable, minimal edema. Abdomen: Soft, normoactive bowel sounds. No convincing organomegaly or masses. Extremities show no obvious cyanosis or clubbing. Neurologically, she is hard of hearing, but is awake, alert and appropriate and answers all questions appropriately. ASSESSMENT: Most pressing problems requiring my presence at the bedside: 1. COVID pneumonia with hypoxemia. Can not rule out congestive heart failure. 2. History of asthma. 3. Diabetes mellitus. 4. History of follicular cell non Hodgkin's lymphoma. 5. Obstructive sleep apnea (DEVEN) by history. 6. Indwelling pacemaker. MEDICATIONS: Steroids/remdesivir/baricitinib. At this point, we will transition her to CPAP, as I do believe recruitment will help. She is on appropriate steroids. I will clarify with Dr. Betancourt where her baricitinib is at 1 mg instead of 4. Some of this may have been dosage adjusted for renal function as her creatinine was high as a little over 2 since admission. She may benefit from a higher dose. I discussed with the patient her current status and she is in agreement with her CPAP. We will leave her steroids where they are at for now. I will repeat a procalcitonin as it is difficult to know her elevated white count is strictly from steroids. It has been checked several time since admission less than 0.05 up until the where it is 0.05 and certainly at this point that does not warrant microbials. She does not dry cough, but nothing productive. Her pro BNP on the was 7,335 up from 4,823 on the , but it was as high 9,135 on the . Again if interstitial edema from cardiogenic standpoint is underneath, then certainly positive pressure ventilation will help that as well, even in the noninvasive mode. She has already had ulcer and deep venous thrombosis (DVT) prophylaxis. At this point, will proceed as outlined above. I left the bedside at 12:42 hours. 47 minutes of critical care time at the bedside, not including procedures. .
[2021-02-13] MEDS: PANTOPRAZOLE 40MG VIAL (C9113 PER 1) IV SCH (21:34)
[2021-02-13] MEDS: ALPRAZolam 0.25 MG TAB PO PRN (21:35)
[2021-02-14] VITALS (14 sets, daily range): BP systolic 120–174; BP diastolic 56–83; O2SAT 93
[2021-02-14] MEDS: IPRATROPIUM 0.5MG/ALBUTEROL 2.5MG INH SOL UD 3ML (DUONEB) NEB SCH ×4 (02:46→20:27)
[2021-02-14] MEDS: ALPRAZolam 0.25 MG TAB PO PRN ×4 (02:50→23:18)
[2021-02-14 05:23] LABS: HEMATOCRIT 38.6 % (36.0-47.0); HEMOGLOBIN 12.5 g/dl (12.0-15.5); MEAN CORPUSCULAR HEMOGLOBIN 28.9 pg (27.0-33.0); MEAN CORPUSCULAR HGB CONC 32.4 g/dl (32.0-36.5); MEAN CORPUSCULAR VOLUME 89.4 fl (80.0-96.0); PLATELET COUNT, AUTOMATED 259 10^3/uL (150-450); RED BLOOD COUNT 4.32 10^6/uL (4.00-5.40); WHITE BLOOD COUNT 21.1 10^3/uL (4.0-10.0)
[2021-02-14 05:50] LABS: CALCIUM LEVEL 7.8 MG/DL (8.8-10.2); CREATININE FOR GFR 1.36 MG/DL (0.55-1.30); GLOMERULAR FILTRATION RATE 40.6 (>39); MAGNESIUM LEVEL 2.9 MG/DL (1.8-2.4); POTASSIUM SERUM 5.1 MEQ/L (3.5-5.1)
[2021-02-14] MEDS: HumaLOG INSULIN (NovoLOG) PER UNIT SC SCH ×4 (07:30→21:00)
[2021-02-14] MEDS: ASPIRIN 81MG ENTERIC TABLET PO SCH (09:12)
[2021-02-14] MEDS: APIXABAN 5 MG TAB (ELIQUIS) PO SCH ×2 (09:12→21:33)
[2021-02-14] MEDS: DIGOXIN INJ 0.5 MG/2 ML AMP (J1160) IV SCH (09:13)
[2021-02-14] MEDS: bisoproloL fumarate 10 MG TAB PO SCH (09:13)
[2021-02-14] MEDS: dexameTHASONE 20MG/5ML VIAL (J1100 PER 1MG) IV SCH ×2 (09:14→21:33)
[2021-02-14] MEDS: LEVEMIR (INSULIN DETEMIR) 1 UNITS/0.01ML SC SCH (09:14)
[2021-02-14] MEDS: PANTOPRAZOLE 40MG VIAL (C9113 PER 1) IV SCH ×2 (09:14→21:33)
[2021-02-14] MEDS: ACETAMINOPHEN TAB 650MG DOSE (2X325MG) PO PRN ×2 (09:15→16:48)
[2021-02-14] MEDS: BARICITINIB 2MG TABLET (OLUMIANT) FOR EUA PO SCH (11:21)
--- NOTE | 2021-02-14 11:35 | IPNPDOC ---
Subjective Date Seen The patient was seen on 02/14/21. Subjective Chief Complaint/HPI Patient continues to be on BiPAP however she refuses to keep the mask on. She was maintaining her saturations over 92% with the BiPAP mask but then she would become anxious pull it off and take it off. Abstract try reasoning with her all the staff has been trying to work with her however she does not keep it on for more than a few minutes to half an hour. Spoken with daughter Maryjane updated her on the patient and I have allowed daughter to come in visit her hopefully daughter will be able to reason with her to use the BiPAP. Objective Physical Examination General Exam: Positive: Alert, Cooperative, No Acute Distress Eye Exam: Positive: PERRLA, Conjunctiva & lids normal, EOMI; Negative: Sclera icteric Neck Exam: Positive: Supple; Negative: JVD, thyromegaly Chest Exam: Positive: Diminished, Other (bilateral difuse crackles. ); Negative: Rales, Rhonchi, Wheezing Heart Exam: Positive: Rate Normal, Irregular Rhythm, Normal S1, Normal S2; Negative: Murmurs, Rubs Telemetry: Positive: Atrial fibrillation Abdomen Exam: Positive: Normal bowel sounds, Soft; Negative: Tenderness Extremity Exam: Negative: Clubbing, Cyanosis, Edema Psych Exam: Positive: Memory Intact, Oriented x 3 Assessment /Plan Assessment This is a 75 year of female with PMH of Chronic Atrial fibrillation (s/p ablation & Cardioversion), Sick sinus syndrome (pacemaker placement), IDDM w Gastroparesis, Essential HTN, Chronic HFpEF, DLP, Amiodarone induced pulmonary fibrosis, Hypothyroidism, DEVEN, CKD 3, GERD, Macular degeneration, Follicular NHL (remission), Chronic Asthma, Right parathyroidectomy, left corneal transplant, Vitreous hemorrhage (s/p Bilateral vitrectomy), resection of facial BCC, presented to the ED for shortness of breath, cough, chest / back / shoulder tightness due to coughing, chills and vomiting. Because of the vomiting she hasnt been able to keep any food down. She was found to be COVID positive on 02/04/21 despite recieving 2 doses of Moderna vaccine. Of note her daughter and son in law, who came from [place] on , were diagnosed with COVID. She was desaturating to 88% with ambulation. She was admitted for COVID pneumonia with acute respiratory failure with hypoxia. Her oxygenation continued to worsen so based on BiPAP. She was maintaining her saturation with BiPAP however she did become anxious and try to pull the mask off and become unreas onable but would not allow the staff to put the mask back on leading to episodes of desaturation. COVID-19 pneumonia with acute hypoxic respiratory failure Dexamethasone, remdesivir and Olumiant, Duonebs Zofran for her nausea and vomiting. Leukocytosis With no elevation of procalcitonin on 02/13 Asthma exacerbation Secondary to COVID-19. Continue with steroids and duo nebs. Insulin-dependent diabetes mellitus Poor oral intake, isulin dose adjusted. A fib with RVR / Sick sinus syndrome w pacemaker Likely exacerbated respiratory issues. continue bisoprolol, digoxin and diltiazem. Continue systemic anticoagulation with apixaban DHARMESH on chronic kidney disease stage III resolved Ultrasound showed chronic medical renal disease with no evidence of hydronephrosis. Appears euvolemic to hypovolemia Lasix as needed Exacerbation of chronic HFpEF resolved. Now euvolemic to hypovolemic Lasix as needed Essential HTN Blood pressure is well controlled. Continue with bisoprolol and diltiazem. Her chlorthalidone, spironolactone, and losartan are held for acute on chronic kidney disease. 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 vision loss c/w MTX & Folic Acid on discharge Plan/VTE VTE Prophylaxis Ordered?: Yes VS, I&O, 24H, Fishbone Vital Signs/I&O Vital Signs Date Time Temp Pulse Resp B/P (MAP) Pulse Ox O2 Delivery O2 Flow Rate FiO2 02/14/21 09:13 133 02/14/21 09:13 159/75 02/14/21 08:27 93 Non-Rebreather 15.0 02/14/21 08:26 100 02/14/21 06:56 28 02/14/21 04:01 96.5 l I&O- Last 24 Hours up to 6 AM 02/14/21 06:00 Intake Total 878 ml Output Total 1050 ml Balance -172 ml Laboratory Data 24H LABS Laboratory Tests 2 02/13/21 11:40: Bedside Glucose (Misc Panel) 165H 02/13/21 12:57: D-Dimer, Quantitative > 4000H, Ferritin 1839H, Digoxin Level 1.9 02/13/21 16:52: Bedside Glucose (Misc Panel) 223H 02/13/21 21:24: Bedside Glucose (Misc Panel) 216H 02/14/21 05:07: Nucleated Red Blood Cells % (auto) 0.0, Anion Gap 9, Glomerular Filtration Rate 40.6, Calcium Level 7.8L, Magnesium Level 2.9H 02/14/21 11:13: Bedside Glucose (Misc Panel) 301H CBC/BMP Laboratory Tests 02/14/21 05:07 Microbiology Microbiology 02/04/21 Blood Culture - Final, Complete NO GROWTH AFTER 5 DAYS 02/04/21 Respiratory Virus Panel (PCR) ([facility]) - Final, Complete SARS-CoV-2 (COVID 19) Emmanuelle Betancourt MD Feb 14, 2021 11:35
[2021-02-15] VITALS (11 sets, daily range): BP systolic 136–188; BP diastolic 63–74
[2021-02-15] MEDS: IPRATROPIUM 0.5MG/ALBUTEROL 2.5MG INH SOL UD 3ML (DUONEB) NEB SCH ×3 (02:00→13:09)
[2021-02-15] MEDS: ACETAMINOPHEN TAB 650MG DOSE (2X325MG) PO PRN ×2 (04:11→12:36)
[2021-02-15] MEDS: bisoproloL fumarate 10 MG TAB PO SCH (08:36)
[2021-02-15] MEDS: ASPIRIN 81MG ENTERIC TABLET PO SCH (08:36)
[2021-02-15] MEDS: PANTOPRAZOLE 40MG VIAL (C9113 PER 1) IV SCH (08:37)
[2021-02-15] MEDS: BARICITINIB 2MG TABLET (OLUMIANT) FOR EUA PO SCH (08:37)
[2021-02-15] MEDS: dexameTHASONE 20MG/5ML VIAL (J1100 PER 1MG) IV SCH (08:37)
[2021-02-15] MEDS: APIXABAN 5 MG TAB (ELIQUIS) PO SCH (08:37)
[2021-02-15] MEDS: DIGOXIN INJ 0.5 MG/2 ML AMP (J1160) IV SCH (08:38)
[2021-02-15] MEDS: ALPRAZolam 0.25 MG TAB PO PRN (08:38)
[2021-02-15] MEDS: LEVEMIR (INSULIN DETEMIR) 1 UNITS/0.01ML SC SCH (08:40)
[2021-02-15] MEDS: HumaLOG INSULIN (NovoLOG) PER UNIT SC SCH ×2 (08:40→12:37)
[2021-02-15 09:19] LABS: BASO % 0.2 % (0.0-1.0); LYMPH # 0.5 10^3/uL (1.5-5.0); LYMPH % 1.9 % (24.0-44.0); MEAN CORPUSCULAR HEMOGLOBIN 29.3 pg (27.0-33.0); MEAN CORPUSCULAR HGB CONC 33.3 g/dl (32.0-36.5); MONO # 0.9 10^3/uL (0.0-0.8); MONO % 3.4 % (2.0-8.0); NEUTROPHILS # 23.4 10^3/uL (1.5-8.5); NEUTROPHILS % 93.5 % (36.0-66.0); PLATELET COUNT, AUTOMATED 236 10^3/uL (150-450); RED BLOOD COUNT 4.43 10^6/uL (4.00-5.40)
[2021-02-15 09:40] LABS: CALCIUM LEVEL 8.4 MG/DL (8.8-10.2); CREATININE FOR GFR 1.39 MG/DL (0.55-1.30); GLOMERULAR FILTRATION RATE 39.6 (>39); MAGNESIUM LEVEL 3.3 MG/DL (1.8-2.4); POTASSIUM SERUM 4.9 MEQ/L (3.5-5.1)
--- NOTE | 2021-02-15 15:12 | IPNPDOC ---
Text Note Date of Service The patient was seen on 02/15/21. NOTE Subjective: Patient is a 75-year-old female who presented to hospital with s hortness of breath and was diagnosed with COVID-19. Patient is currently on CPAP at 10 cm of water and an FiO2 of 100%. Patient has been digging at her nose and her eye with her finger according to nursing staff. Patient feels claustrophobic with the mask on but has been wearing it as long as she is able to take Xanax. Patient denies any shortness of breath at this time. Patient denies any pain at this time. Review of systems: General: Patient denies fevers HEENT: Patient denies headaches Cardiovascular: Patient denies chest pain Respiratory: Patient denies shortness of breath, cough GI: Patient denies abdominal pain, nausea, vomiting, diarrhea : Patient denies increased frequency or pain with urination Extremities: Patient denies swelling or pain in extremities Neurological: Patient denies numbness or tingling in legs Physical exam: Vitals: See below General: Alert and oriented female patient who was laying on her side with CPAP mask on when I walked in. Patient appeared fidgety and uncomfortable but did not appear to be in acute distress HEENT: Normocephalic, atraumatic, moist mucous membranes, dried blood around the medial canthus of the right eye Neck: No lymphadenopathy or thyromegaly Cardiac: Regular rate and rhythm, no murmurs, normal S1, normal S2 Pulm: Diminished breath sounds bilaterally Abd: Nondistended, nontender to palpation, normal bowel sounds Ext: No edema bilateral lower extremities Labs: See below Imaging: No new imaging is been performed Assessment/plan: 75-year-old female past medical history of chronic atrial fibrillation status post ablation and cardioversion, sick sinus syndrome status post pacemaker, hypertension, chronic heart failure preserved ejection fraction who presented to the hospital and was found to be Covid positive on 02/04/2021 despite receiving 2 doses of Motrin vaccine. Patient was desaturating to 88% with ambulation and was admitted for Covid pneumonia with acute hypoxic respiratory failure. 1. Acute hypoxic respiratory failure. Patient will continue with baricitinib and dexamethasone. Remdesivir has been completed. Patient is requiring CPAP therapy at 10 cm of water and an FiO2 of 100% to maintain saturations. When the patient is put on Vapotherm with a nonrebreather, patient desats into the 80s. Patient states that she would accept intubation if the need arises. 2. COVID-19 pneumonia. Continue treatment as above. 3. Leukocytosis. This may be secondary to the patient's steroids. Continue to monitor. 4. Asthma exacerbation. Secondary to COVID-19. Patient does not appear to be wheezing today. Continue with steroids and DuoNebs. 5. Insulin-dependent diabetes mellitus. Insulin dose has been adjusted to the patient's poor oral intake. 6. Atrial fibrillation with RVR/sick sinus syndrome with pacemaker. Exacerbated likely due to respiratory issues. Continue bisoprolol, digoxin and Cardizem. Continue systemic anticoagulation with apixaban. 7. Acute kidney injury on chronic kidney disease stage IIIb, resolved. Chronic medical renal disease was seen on ultrasound. Appears to be euvolemic. Lasix as needed. 8. Exacerbation of chronic heart failure preserved ejection fraction, resolved. Euvolemic. Continue to monitor and use Lasix as necessary. 9. Essential hypertension. Blood pressures controlled. Continue with bisoprolol and diltiazem. Other medications on hold due to DHARMESH. This can be restarted if the patient's blood pressure necessitates further treatment. 10. Hypothyroidism. Continue levothyroxine. 11. DEVEN. Continue CPAP. 12. Follicular non-Hodgkin's lymphoma in remission. 13. Unspecified autoimmune disorder (per patient) patient has left-sided vision loss. 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 I went down and spoke with the patient and patient stated that she would like to be made comfortable. Patient states that she understands that changing the goal of care from life-prolonging to comfort is what she is asking for. Patient is aware that she will need to be made DO NOT RESUSCITATE/DO NOT INTUBATE which the patient is in agreement for. Patient spoke with her daughter who is also on agreement. 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 Patient was alert and oriented x3 and understood the decision she was making at the time the decision was made. VS,Sunny, I+O VS, Fishbone, I+O Laboratory Tests 02/15/21 09:02 Vital Signs Date Time Temp Pulse Resp B/P (MAP) Pulse Ox O2 Delivery O2 Flow Rate FiO2 02/15/21 13:10 100 02/15/21 13:00 79 97 NIPPV (BIPAP/CPAP) 02/15/21 12:31 97.8 29 153/72 (99) 02/15/21 09:00 40.0 I&O- Last 24 Hours up to 6 AM 02/15/21 06:00 Intake Total 720 ml Output Total 1050 ml Balance -330 ml NELSON SALCEDO DO Feb 15, 2021 15:12
[2021-02-15] MEDS ORDERED: FLEET ENEMA PR PRN (15:35)
[2021-02-15] MEDS ORDERED: SCOPOLAMINE 1MG TRANSDERMAL PATCH TOP PRN (15:35)
[2021-02-15] MEDS ORDERED: ONDANSETRON 4MG/2ML VIAL IV PRN ×2 (15:35→19:10)
[2021-02-15] MEDS ORDERED: MORPHINE 10MG/0.5ML ORAL CONCENTRATE SOLUTION U/D SL PRN ×3 (15:35→18:55)
[2021-02-15] MEDS ORDERED: MORPHINE 2 MG/ML 1ML VIAL (J2270) IV PRN ×2 (15:35→19:10)
[2021-02-15] MEDS ORDERED: LORazepam 2 MG/ML VIAL IV PRN (15:35)
[2021-02-15] MEDS ORDERED: BISACODYL 10 MG SUPP PR PRN (15:35)
[2021-02-15] MEDS ORDERED: ACETAMINOPHEN 650 MG SUPP PR PRN (15:35)
[2021-02-15] MEDS ORDERED: HYOSCYAMINE SULFATE 0.125 MG SUBL TABLET PO PRN (15:35)
[2021-02-15] MEDS ORDERED: ATROPINE SULFATE 1% OP SOLN 2 ML BTL SL PRN (15:35)
[2021-02-15] MEDS ORDERED: LORazepam 1 MG TAB PO PRN (15:35)
[2021-02-15] MEDS ORDERED: ONDANSETRON 4 MG ORAL DISINTEGRATING TAB PO PRN ×2 (15:35→19:10)
[2021-02-15] MEDS ORDERED: MORPHINE 10MG/0.5ML ORAL CONCENTRATE SOLUTION U/D SL ONE (17:35)
[2021-02-15] MEDS ORDERED: LORazepam 2 MG/ML VIAL IV STA (19:10)
[2021-02-15] MEDS ORDERED: LORazepam 2 MG/ML VIAL As Ordered ONE (19:13)
--- NOTE | 2021-02-16 19:00 | DS.PDOC ---
Discharge Summary General Date of Admission Feb 04, 2021 at 19:29 Date of Discharge 02/15/2021 Primary Care Physician: ALBERTO KEITA MD Attending Physician: NELSON SALCEDO DO Specialist/Consultants Involve: Albaro Cannon Discharge Summary PROCEDURES PERFORMED DURING STAY: None. ADMITTING DIAGNOSES: 1. Sepsis. 2. COVID-19 pneumonia 3. Acute asthma 4. Hyperglycemia 5. Vomiting 6. Atrial fibrillation with RVR 7. DHARMESH on CKD 3 8. Essential hypertension 9. Chronic heart failure preserved ejection fraction 10. Hypothyroidism 11. DEVEN 12. Follicular non-Hodgkin's lymphoma 13. Class III obesity DISCHARGE DIAGNOSES: 1. Acute hypoxic respiratory failure secondary to COVID-19. 2. COVID-19 pneumonia line 3. Leukocytosis 4. Asthma exacerbation 5. Insulin-dependent diabetes mellitus 6. Atrial fibrillation with RVR/sick sinus syndrome with pacemaker 7. Acute kidney injury on chronic kidney disease stage IIIb, resolved 8. Exacerbation of chronic heart failure preserved ejection fraction, resolved 9. Essential hypertension 10. Hypothyroidism 11. DEVEN 12. Follicular non-Hodgkin's lymphoma 13. Unspecified autoimmune disorder (per patient) COMPLICATIONS/CHIEF COMPLAINT: Covid-19,Hypoglycemia. HISTORY OF PRESENT ILLNESS: Patient is a 75-year-old female who was last admitted to the service in September 2020 for management of sick sinus syndrome had a pacemaker placed. Patient had been following with cardiology and was noted to be in rapid ventricular response so he increase her Cardizem. Today she was does have a scheduled appointment with her helper metal hanging after informing her office that she was short of breath she was instructed to come to the emergency department instead. In addition to dyspnea, she has been having a cough, chest, back, shoulder tightness due to coughing, chills, and vomiting. Because of the vomiting she has not been able to keep any food down. She denies any fevers. Of note her daughter and son-in-law came from [place] on and they were diagnosed with Covid. Spite receiving 2 doses of the Moderna vaccine, she was diagnosed with COVID-19 today and was noted to desat into the 80s with ambulation. HOSPITAL COURSE: Patient was admitted for COVID-19 pneumonia. Patient was initially placed on dexamethasone and remdesivir. Patient was also found to have an asthma exacerbation which was most likely secondary to COVID-19. Patient's heart rate was able to be controlled with her ambulatory medication. Patient was initially on room air but had to be placed on nasal cannula oxygen. Patient had to be transitioned to high flow nasal cannula oxygen therapy on 02/07/2021. Patient's respiratory status continued to worsen and on 02/09/2021, the patient to be transitioned from high flow cannula to Vapotherm. Patient remained on Vapotherm until 02/12/2021 when the patient was transferred to the ICU and started on CPAP on 02/13/2021. Patient continued on CPAP and was unable to tolerate being on Vapotherm for very long. On 02/14/2021, the discussion was made about possible intubation. Patient at that time had agreed to intubation if it became necessary. On 02/15/2021, patient was unable to tolerate being on Vapotherm with nonrebreather mask for very long. Patient's oxygen saturations declined into the low 80s. Patient remained on CPAP throughout most of the day. Around the later afternoon I was called by the nursing stating the patient wanted to be made SUPERVISOR ASBESTOS REMOVAL. I went down and had a discussion with the patient. Patient understood that comfort measures only were a change in the goal of the patient's care from life-prolonging therapy to comfort therapy. Patient states that this is what she wants. Patient had a discussion with her daughter who was in agreement. Patient was made SUPERVISOR ASBESTOS REMOVAL and orders were placed. Patient did require increased morphine dosage due to pain and increased work of breathing. Patient at 1740 on 02/15/2021. DISCHARGE MEDICATIONS: Please see below. ALLERGIES: Please see below. PHYSICAL EXAMINATION ON DISCHARGE: Physical examination unable to be performed by this provider as the patient overnight. LABORATORY DATA: Please see below. IMAGING: Chest x-ray performed on 02/04/2021 is reported to show moderate bilateral infiltrates. Differential diagnosis includes multifocal pneumonia and COVID-19 pulmonary disease. Renal ultrasound performed on 02/04/2021 is reported to show chronic medical renal disease mild asymptomatic atrophy to the right kidney. No evidence of hydronephrosis. Chest x-ray performed on 02/13/2021 is reported to show findings consistent with diffuse pneumonia/pulmonary edema, Covid related pneumonia not excluded. May be some superimposed element of congestive heart failure. Pacemaker PROGNOSIS: DISPOSITION: 20 . DISCHARGE CONDITION: . TIME SPENT ON DISCHARGE: 20 minutes. Vital Signs/I&Os Vital Signs Date Time Temp Pulse Resp B/P (MAP) Pulse Ox O2 Delivery O2 Flow Rate FiO2 02/15/21 15:30 100 02/15/21 15:22 78 34 136/63 (87) 88 HVNI-Vapotherm 40.0 02/15/21 12:31 97.8 I&O- Last 24 Hours up to 6 AM 02/16/21 06:00 Intake Total 240 ml Balance 240 ml Discharge Medications Scheduled Apixaban (Eliquis) 5 Mg Tab, 5 MG PO BID, (Reported) Atorvastatin Calcium (Atorvastatin Calcium) 80 Mg Tablet, 80 MG PO QHS, (Reported) Bisoprolol Fumarate (Bisoprolol Fumarate) 10 Mg Tablet, 10 MG PO DAILY, (Reported) Calcium Carbonate (Calcium) 500 Mg Tablet, 500 MG PO DAILY, (Reported) Chlorthalidone (Chlorthalidone) 25 Mg Tablet, 25 MG PO DAILY, (Reported) Cyclosporine (Restasis) 0.05% Droperette, 1 DROP OU BID, (Reported) Digoxin (Digoxin) 125 Mcg Tablet, 125 MCG PO DAILY, (Reported) Dulaglutide (Trulicity) 1.5 Mg/0.5 Ml Pen.injctr, 1.5 MG SC QWEEK, (Reported) SUNDAY Folic Acid (Folic Acid) 1 Mg Tablet, 1 MG PO DAILY, (Reported) Glipizide (Glipizide) 10 Mg Tablet, 10 MG PO BID, (Reported) Insulin Glargine,Hum.rec.anlog (Toujeo Solostar) 300 Unit/1 Ml Insuln.pen, 150 UNIT SC DAILY, (Reported) Insulin Human Lispro (Humalog) 1 Units/0.01 Ml Inj, 1 DOSE SC ACHS, (Reported) PER SLIDING SCALE Levothyroxine Sodium (Levothyroxine Sodium) 137 Mcg Tablet, 137 MCG PO DAILY, (R eported) Losartan Potassium (Losartan Potassium) 25 Mg Tablet, 25 MG PO DAILY, (Reported) Methotrexate Sodium (Methotrexate) 2.5 Mg Tablet, 10 MG PO QWEEK, (Reported) FRIDAYS Mineral Oil/Petrolatum,White (Refresh P.m. Ointment) 3.5 Gm Oint...g., 1 DOSE OU QHS, (Reported) Omeprazole (Omeprazole) 40 Mg Cap, 40 MG PO DAILY, (Reported) Spironolactone (Spironolactone) 25 Mg Tablet, 12.5 MG PO DAILY, (Reported) dilTIAZem HCl (Diltiazem 24Hr Cd) 120 Mg Cap.er.24h, 120 MG PO DAILY, (Reported) Scheduled PRN Carboxymethylcellulose Sodium (Refresh Tears) 15 Ml Drops, 1 DROP OU TID PRN for DRY EYES, (Reported) Fluticasone Propionate (Flonase Allergy Relief) 9.9 Ml [place].susp, 1 SPRAY NARES DAILY PRN for NASAL CONGESTION, (Reported) Allergies Coded Allergies: erythromycin base (Verified Allergy, Intermediate, rash, 04/28/19) sitagliptin (Verified Allergy, Intermediate, Rash, 04/28/19) amiodarone (Verified Adverse Reaction, Intermediate, Lung Issues, 04/18/19 ) latex (Verified Adverse Reaction, Mild, Risk, 04/18/19) lisinopril (Verified Adverse Reaction, Mild, cough, 04/18/19) NELSON SALCEDO DO Feb 16, 2021 19:00
== END 2021-02-15 20:40 | disposition expired | DRG 177 ==
LOC: M ED 11:21 → M ED INP 19:29 → M ICU 02-05 01:14 → M 4MAIN 02-05 16:41 → M ICU 02-12 11:09
PROVIDERS: ADMIT Internal Medicine; ATTEND Internal Medicine Nephrology
DX: U07.1 COVID-19 (principal); I50.33 Acute on chronic diastolic (congestive) heart failure; J96.01 Acute respiratory failure with hypoxia; J12.82 Pneumonia due to coronavirus disease 2019; J45.901 Unspecified asthma with (acute) exacerbation; I13.0 Hypertensive heart and chronic kidney disease with heart failure and stage 1 through stage 4 chronic kidney disease, or unspecified chronic kidney disease; N17.9 Acute kidney failure, unspecified; I48.20 Chronic atrial fibrillation, unspecified; C82.90 Follicular lymphoma, unspecified, unspecified site; N18.30 Chronic kidney disease, stage 3 unspecified; E11.43 Type 2 diabetes mellitus with diabetic autonomic (poly)neuropathy; E11.649 Type 2 diabetes mellitus with hypoglycemia without coma; G47.33 Obstructive sleep apnea (adult) (pediatric); E03.9 Hypothyroidism, unspecified; Z95.0 Presence of cardiac pacemaker; Z79.899 Other long term (current) drug therapy; Z79.4 Long term (current) use of insulin; Z91.040 Latex allergy status; Z88.8 Allergy status to other drugs, medicaments and biological substances